=== PATIENT | male | born 1955 | race Caucasian/White ===

== ENCOUNTER 2022-12-09 18:21 | Emergency (ER) | payer MEDICARE, SELFPAY ==
[2022-12-09] VITALS (33 sets, daily range): BP systolic 89–144; BP diastolic 49–84; PULSE 72–117; RESP 15–31; TEMP 37.1; O2SAT 95–100; BMI 25.1
--- NOTE | 2022-12-09 18:23 | CT_ITS ---
The [address] [address] Patient Name: CINDY DOHERTY MRN: [id number] date: 1955 Sex: M Assigned Patient Location: ED.MAIN Current Patient Location: ED.MAIN Accession/Order Number: [id number] Exam Date: 12/09/2022 18:40 Report Date: 12/09/2022 19:53 At the request of: CHETNA ABREU Procedure: CT head/brain wo con EXAMINATION: CT head/brain wo con, 12/09/2022 6:40 PM EDT HISTORY: Seizure COMPARISON: None. TECHNIQUE: CT scan of the head was performed without IV contrast. CT dose reduction technique was used, including Automated Exposure Control. FINDINGS: BRAIN PARENCHYMA/CSF SPACES: Ventricles are normal in size for age. There is no hemorrhage, mass effect or midline shift. Chronic appearing lacunar infarcts involving the caudate heads bilaterally, left basal ganglia and left frontal periventricular white matter. Chronic appearing infarct noted in the right parietal white matter. PARANASAL SINUSES: Clear. SKULL BASE AND CALVARIUM: Normal. EXTRACRANIAL SOFT TISSUES: Normal. CT/CT head/brain wo con IMPRESSION: 1. No acute intracranial abnormality. 2. Bilateral chronic appearing lacunar infarcts. MRI would be more sensitive for acute infarct if clinically indicated. Electronically authenticated by: AL THORPE Date: 12/09/2022 19:53
[2022-12-09 18:26] LABS: Glucometer 172 mg/dL (74-106)
--- NOTE | 2022-12-09 18:29 | ED.GENADUL1 ---
HPI - General Adult General Chief complaint: Altered Mental Status Stated complaint: SQUAD UNKNOWN Time Seen by Provider: 12/09/22 18:22 Source: family Mode of arrival: ambulance Limitations: altered mental status History of Present Illness HPI narrative: patient here by EMS for altered mentation. Family is not here yet to give me other information. Paramedics report that he was fine this afternoon but all of a sudden having jerking-type movements and became less responsive. They also indicated that he had a serious stroke recently. The paramedics arrived in the was somewhat unresponsive but was moving about all the extremities. He was not verbal. He is not visualized to have any seizure. His blood glucose was normal. We do not have any previous records form in this Hospital medical record system. He was seen immediately upon arrival. Related Data Allergies Allergy/AdvReac Type Severity Reaction Status Date / Time No Known Drug Allergies Allergy Verified 12/09/22 18:27 Exam Narrative Exam Narrative: patient was placed in a resuscitation room and placed on cardiac monitoring and oxygen monitoring. He is moving about restlessly and not following all or any commands initially that change throughout the course exam and he was able to tell us his name and open and close his mouth. HEENT showed pupils to be 4 mm reactive bilaterally. Oral cavity has some minor abrasions but no active bleeding or obvious lacerations. His airway is intact. He's not had an emesis here is not drooling and is not stridorous airway is widely patent pulse oximetry is one hundred percent on room air. Heart rate and rhythm are normal and don't hear any heart murmurs. Abdomen is benign to palpation he doesn't seem to have any discomfort to palpation. As a studies moving all extremities. Genitalia does not indicate that he's had incontinence of urine. Constitutional Vital Signs, click to edit/add: Last Vital Signs Temp 98.7 F 12/09/22 18: Pulse 117 H 12/09/22 18:23 Resp 18 12/09/22 18:23 BP 134/76 12/09/22 18: Pulse Ox 100 12/09/22 18:23 O2 Del Method Room Air 12/09/22 18:23 Course Vital Signs Vital signs: Vital Signs Temperature 98.7 F 12/09/22 18:23 Pulse Rate 117 H 12/09/22 18:23 Respiratory Rate 18 12/09/22 18:23 Blood Pressure 134/76 12/09/22 18:23 Pulse Oximetry 100 12/09/22 18:23 Oxygen Delivery Method Room Air 12/09/22 18:23 Temperature 98.7 F 12/09/22 18:23 Pulse Rate 117 H 12/09/22 18:23 Respiratory Rate 18 12/09/22 18:23 Blood Pressure 134/76 12/09/22 18:23 Pulse Oximetry 100 12/09/22 18:23 Oxygen Delivery Method Room Air 12/09/22 18:23 Medical Decision Making MDM Narrative Medical decision making narrative: at this time the patient seems to be postictal. We'll get more information from the . Chemistries CT scan were all ordered to facilitate his disposition. Case will be turned over the next Emergency Room physician Lab Data Labs: Lab Results 12/09/22 Range/Units 18:24 POC Glucose 172 H (74-106) mg/dL Discharge Plan Discharge Chief Complaint: Altered Mental Status Clinical Impression: Altered mental status Patient Disposition: Still a Patient Referrals: Stefan Hardy MD [Primary Care Provider] - 1 week
[2022-12-09 18:40] LABS: Hematocrit 26.1 % (42.0-54.0); Mean Corpuscular HGB Conc 34.5 g/dL (29.9-35.2); Mean Corpuscular Hemoglobin 31.1 pg (25.9-34.0); Mean Corpuscular Volume 90.3 fL (80.0-94.0); Platelet Count 285 10^3/uL (150-450); Red Blood Count 2.89 10^6/uL (4.70-6.10); Red Cell Distribution Width 14.2 % (11.0-15.0)
[2022-12-09 18:57] LABS: Alanine Aminotransferase 63 U/L (16-63); Albumin Globulin Ratio 1.1; Albumin Level 3.7 g/dL (3.4-5.0); Alkaline Phosphatase 73 U/L (46-116); Anion Gap 18.5; Aspartate Amino Transferase 26 U/L (15-37); BUN Creatinine Ratio 13.8; Bilirubin Total 0.4 mg/dL (0.2-1.0); Calcium 8.9 mg/dL (8.5-10.1); Carbon Dioxide 22.6 mmol/L (21.0-32.0); Chloride 102 mmol/L (98-107); Estimated GFR (African America >60 (>=60); Estimated GFR (Non-African Ame 51 (>=60); Globulin 3.4 g/dL; Glucose 161 mg/dL (74-106); Potassium 3.1 mmol/L (3.5-5.1); Sodium 140 mmol/L (136-145); Total Protein 7.1 g/dL (6.4-8.2)
[2022-12-09 19:04] LABS: Ethanol <3 mg/dL; Thyroid Stimulating Hormone 6.068 uIU/mL (0.358-3.740); Troponin I High Sensitivity 7.6 pg/mL (4.0-76.1)
[2022-12-09 19:05] LABS: Eosinophils Absolute Manual 0.65 10^3/uL (0.00-0.70); Lymphocytes Absolute Manual 4.81 10^3/uL (1.20-3.80); Monocytes Absolute Manual 0.52 10^3/uL (0.30-0.80); Myelocytes Absolute Manual 0.13; Segmented Neut Absolute Manual 6.89 10^3/uL (1.4-6.5)
--- NOTE | 2022-12-09 19:14 | PC.NURSE ---
previous charting that pt at radiology was done in error. charted on wrong pt
[2022-12-09 21:02] LABS: Bilirubin Urine NEGATIVE (NEGATIVE); Blood Urine NEGATIVE (NEGATIVE); Clarity Urine CLEAR (CLEAR); Color Urine YELLOW (YELLOW); Glucose Urine UA NEGATIVE (NEGATIVE); Ketones Urine NEGATIVE (NEGATIVE); Leukocyte Esterase Urine NEGATIVE (NEGATIVE); Nitrite Urine NEGATIVE (NEGATIVE); Protein Urine NEGATIVE (NEG/TRACE); Specific Gravity Urine 1.025 (1.005-1.025); Urobilinogen Urine 0.2 EU/dL (0.2-1.0); pH Urine 5.5 (5.0-9.0)
--- NOTE | 2022-12-09 21:05 | ED.AMS1 ---
HPI - Altered Mental Status General Chief Complaint: Altered Mental Status Stated Complaint: SQUAD UNKNOWN Time Seen by Provider: 12/09/22 18:22 Source: family Mode of arrival: ambulance Limitations: altered mental status History of Present Illness HPI narrative: The patient was initially seen by Dr. Taylor and signed out to me after discussing the case with him thoroughly. The patient presented with new onset seizure as witnessed by his and it lasted about fifteen minutes. Please see his full history and physical exam. Related Data Allergies Allergy/AdvReac Type Severity Reaction Status Date / Time No Known Drug Allergies Allergy Verified 12/09/22 18:27 Exam Constitutional Vital Signs, click to edit/add: Last Vital Signs Temp 98.7 F 12/09/22 18:23 Pulse 117 H 12/09/22 18:23 Resp 18 12/09/22 18:23 BP 134/76 12/09/22 18:23 Pulse Ox 100 12/09/22 18:35 O2 Del Method Room Air 12/09/22 18:35 Course Vital Signs Vital signs: Vital Signs Temperature 98.7 F 12/09/22 18:23 Pulse Rate 117 H 12/09/22 18:23 Respiratory Rate 18 12/09/22 18:23 Blood Pressure 134/76 12/09/22 18:23 Pulse Oximetry 100 12/09/22 18:23 Oxygen Delivery Method Room Air 12/09/22 18:23 Temperature 98.7 F 12/09/22 18:23 Pulse Rate 117 H 12/09/22 18:23 Respiratory Rate 18 12/09/22 18:23 Blood Pressure 134/76 12/09/22 18:23 Pulse Oximetry 100 12/09/22 18:35 Oxygen Delivery Method Room Air 12/09/22 18:35 MDM - Altered Mental Status MDM Narrative Medical decision making narrative: CT brain does not show any acute finding. I've discussed the case with accepting physician at [facility] and the patient is stable and agreeable for transfer. Differential Diagnosis Differential diagnosis: Likely altered mental status, hypoglycemia, hyponatremia, subarachnoid hemorrhage and OTHER (post stroke seizure) Medical Records Attestation: I reviewed the patient's medical records. Lab Data Attestation: I reviewed the patient's lab results. Labs: Lab Results 12/09/22 12/09/22 Range/Units 18:24 18:30 WBC 13.0 H (4.0-11.0) 10^3/uL RBC 2.89 L (4.70-6.10) 10^6/uL Hgb 9.0 L (14.0-18.0) g/dL Hct 26.1 L (42.0-54.0) % MCV 90.3 (80.0-94.0) fL MCH 31.1 (25.9-34.0) pg MCHC 34.5 (29.9-35.2) g/dL RDW 14.2 (11.0-15.0) % Plt Count 285 (150-450) 10^3/uL MPV 10.0 (9.5-13.5) fL Seg Neuts % (Manual) 53.0 Lymphocytes % (Manual) 37.0 (20.5-60.0) % Monocytes % (Manual) 4.0 (1.7-12.0) % Eosinophils % (Manual) 5.0 (0.9-7.0) % Basophils % (Manual) 0.0 L (0.2-2.0) % Myelocytes % 1.0 Neutrophils # (Manual) 6.89 H (1.4-6.5) 10^3/uL Lymphocytes # (Manual) 4.81 H (1.20-3.80) 10^3/uL Monocytes # (Manual) 0.52 (0.30-0.80) 10^3/uL Eosinophils # (Manual) 0.65 (0.00-0.70) 10^3/uL Basophils # (Manual) 0.00 (0.00-0.10) 10^3/uL Myelocytes # 0.13 Sodium 140 (136-145) mmol/L Potassium 3.1 L (3.5-5.1) mmol/L Chloride 102 (98-107) mmol/L Carbon Dioxide 22.6 (21.0-32.0) mmol/L Anion Gap 18.5 BUN 19.0 H (7.0-18.0) mg/dL Creatinine 1.38 H (0.70-1.30) mg/dL Est GFR ( Amer) >60 (>=60) Est GFR (Non-Af Amer) 51 L (>=60) BUN/Creatinine Ratio 13.8 Glucose 161 H (74-106) mg/dL Calcium 8.9 (8.5-10.1) mg/dL Total Bilirubin 0.4 (0.2-1.0) mg/dL AST 26 (15-37) U/L ALT 63 (16-63) U/L Alkaline Phosphatase 73 (46-116) U/L Troponin I High Sens 7.6 (4.0-76.1) pg/mL Total Protein 7.1 (6.4-8.2) g/dL Albumin 3.7 (3.4-5.0) g/dL Globulin 3.4 g/dL Albumin/Globulin Ratio 1.1 TSH 6.068 H (0.358-3.740) uIU/mL Ethanol Quant <3 mg/dL POC Glucose 172 H (74-106) mg/dL Imaging Data CT scan - head: Radiologist's impression: Procedure: CT head/brain wo con EXAMINATION: CT head/brain wo con, 12/09/2022 6:40 PM EDT HISTORY: Seizure COMPARISON: None. TECHNIQUE: CT scan of the head was performed without IV contrast. CT dose reduction technique was used, including Automated Exposure Control. FINDINGS: BRAIN PARENCHYMA/CSF SPACES: Ventricles are normal in size for age. There is no hemorrhage, mass effect or midline shift. Chronic appearing lacunar infarcts involving the caudate heads bilaterally, left basal ganglia and left frontal periventricular white matter. Chronic appearing infarct noted in the right parietal white matter. PARANASAL SINUSES: Clear. SKULL BASE AND CALVARIUM: Normal. EXTRACRANIAL SOFT TISSUES: Normal. IMPRESSION: 1. No acute intracranial abnormality. 2. Bilateral chronic appearing lacunar infarcts. MRI would be more sensitive for acute infarct if clinically indicated. Electronically authenticated by: AL THORPE Date: 12/09/2022 19:53 Discharge Plan Discharge Chief Complaint: Altered Mental Status Clinical Impression: Altered mental status, New onset seizure without head trauma Patient Disposition: [facility] Time of Disposition Decision: 21:05 Discharge Location: [facility] Condition: Good Mode of Transportation: EMS
[2022-12-09 21:07] LABS: Urine Microscopic Indicated NO
[2022-12-09 21:10] LABS: Amphetamine Screen Urine NEGATIVE (NEGATIVE); Barbiturates Screen Urine NEGATIVE (NEGATIVE); Benzodiazepines Screen Urine NEGATIVE (NEGATIVE); Buprenorphine Screen Urine NEGATIVE (NEGATIVE); Cannabinoid Screen Urine NEGATIVE (NEGATIVE); Cocaine Screen Urine NEGATIVE (NEGATIVE); Methadone Screen Urine NEGATIVE (NEGATIVE); Methamphetamines Screen Urine NEGATIVE (NEGATIVE); Opiate Screen Urine NEGATIVE (NEGATIVE); Oxycodone Screen Urine NEGATIVE (NEGATIVE); Phencyclidine Screen Urine NEGATIVE (NEGATIVE); Tricyclic Antidepressant Urine NEGATIVE (NEGATIVE)
--- NOTE | 2022-12-09 21:21 | ECG_ITS ---
The 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
== END 2022-12-09 22:56 | disposition short-term general hospital (02) ==
PROVIDERS: Emergency Medicine Emergency Medical Services; Emergency Provider Emergency Medicine; PCP Family Medicine
DX: R56.9 Unspecified convulsions (principal); R41.82 Altered mental status, unspecified; I69.328 Other speech and language deficits following cerebral infarction; I69.351 Hemiplegia and hemiparesis following cerebral infarction affecting right dominant side
CPT/HCPCS: 36415; 70450; 80053; 80307; 80320; 81003; 84443; 84484; 85027; 93005; 99285

== ENCOUNTER 2022-12-21 13:53 | Outpatient (RCR) | payer MEDICARE, SELFPAY | END 2023-02-14 12:09 | disposition home or self-care (01) | LOC: ST 13:53 | PROVIDERS: PCP Family Medicine; Visit Provider Physical Medicine & Rehabilitation | DX: I63.512 Cerebral infarction due to unspecified occlusion or stenosis of left middle cerebral artery (principal); I69.322 Dysarthria following cerebral infarction; I69.318 Other symptoms and signs involving cognitive functions following cerebral infarction | CPT/HCPCS: 92507; 92523 ==

== ENCOUNTER 2022-12-25 15:04 | Outpatient (RCR) | payer MEDICARE, SELFPAY | END 2023-02-25 08:19 | disposition home or self-care (01) | LOC: PT 15:04 | PROVIDERS: PCP Family Medicine; Visit Provider Physical Medicine & Rehabilitation | DX: I63.512 Cerebral infarction due to unspecified occlusion or stenosis of left middle cerebral artery (principal) | CPT/HCPCS: 97110; 97112; 97162 ==

== ENCOUNTER 2022-12-28 10:54 | Outpatient (RCR) | payer MEDICARE, SELFPAY | END 2023-02-25 08:19 | disposition home or self-care (01) | LOC: OT 10:54 | PROVIDERS: PCP Family Medicine; Visit Provider Physical Medicine & Rehabilitation | DX: I63.512 Cerebral infarction due to unspecified occlusion or stenosis of left middle cerebral artery (principal) | CPT/HCPCS: 97165; 97530 ==

== ENCOUNTER 2023-02-26 10:22 | Outpatient (RCR) | payer MEDICARE, SELFPAY | END 2023-03-29 17:00 | disposition home or self-care (01) | LOC: OT 10:22 | PROVIDERS: PCP Family Medicine; Visit Provider Physical Medicine & Rehabilitation | DX: I63.512 Cerebral infarction due to unspecified occlusion or stenosis of left middle cerebral artery (principal) | CPT/HCPCS: 97530 ==

== ENCOUNTER 2023-02-26 10:22 | Outpatient (RCR) | payer MEDICARE, SELFPAY | END 2023-03-21 17:00 | disposition home or self-care (01) | LOC: PT 10:22 | PROVIDERS: PCP Family Medicine; Visit Provider Physical Medicine & Rehabilitation | DX: I63.512 Cerebral infarction due to unspecified occlusion or stenosis of left middle cerebral artery (principal); R27.0 Ataxia, unspecified | CPT/HCPCS: 97110; 97112 ==

== ENCOUNTER 2023-04-11 11:17 | Outpatient (OUT) | payer MEDICARE, SELFPAY ==
--- OUTSIDE RECORDS SUMMARY | 2023-04-11 11:23 | XMS_ITS | CCD ---
Author Name Unknown Address [address] [facility] [address] [place] [address] Organization [facility] Care Team Providers Care Scanner Operator Name Role Phone PHYSICIAN, DEFAULT Admitting Unavailable PHYSICIAN, DEFAULT Attending Unavailable MARILYN PATRICK Primary Care Unavailable MARILYN PATRICK Admitting Unavailable MARILYN PATRICK Attending Unavailable MARILYN PATRICK Consulting Unavailable ANGUS MCFARLANE Consulting Unavailable DELIO BOYER Consulting Unavailable DARNELL MARILYN Admitting Unavailable DARNELL MARILYN Attending Unavailable DARNELL MARILYN Primary Care Unavailable DARNELL MARILYN Consulting Unavailable Godfrey Patricklas Primary Care Physician [phone] SHANNON JORDAN Attending Unavailable SHANNON JORDAN Admitting Unavailable MD Nolberto Hernandez Emergency Provider MD Marilyn Patrick Primary Care Provider TiogaDO John Admit Provider TiogaDO John Attending Provider MD Davey Harding Attending Provider DO Jose David Aponte Other Provider MD Jose Martin Sen Other Provider MD Jose Martin Sen Admit Provider MD Jose Martin Sen Attending Provider DARON Carlisle Other Provider Unavailable DARON Martines Other Provider Unavailable DARON Brandon Other Provider Unavailable DARON Mckeon Other Provider Unavailable DARNO Benitez Other Provider Unavailable DARON Gupta Other Provider Unavailable MD Nu Nur Other Provider JASMIN Miller Other Provider DO Stephanie Thomas Other Provider MD Pasquale Gillespie Other Provider DO Rohan Levy Other Provider MD Davey Harding Other Provider MD Mindi Juan Other Provider Rosita, ANP-BC Anuradha Other Provider MD Ryan Palacio Other Provider MD Herbert May Other Provider MD Kaushal Mata Other Provider MD Fidelia Hernández Other Provider DO Kevin Adrian Other Provider MD Jaja Firramya Other Provider MD Deangelo Jeong Other Provider Cyn, [employer] IN[employer]CTOR-C Rhonda J Other Provider MD Franklyn Mariano Other Provider MD Foster Patterson Other Provider MD Axel Wolfe Other Provider MD Obey Dawn Other Provider DO Maty Giles Other Provider DO Hilario Bojorquez Other Provider DO Garrett Kim Other Provider JASMIN Walker Other Provider DO Alex Weems Other Provider MD Quynh Galvan Other Provider JASMIN Hernandez Other Provider JASMIN Osorio Sara C Other Provider MD Tamara Loco Other Provider MD Guzman Garcia Other Provider JASMIN Lepe Other Provider [phone] DARON Quinteros Other Provider Unavailable MD Ton Wilkinson Admit Provider Marie Nicholas Other Provider Unavailable DO Shannan Bergeron Other Provider MD Angus Block Other Provider DO Leodan Younger Other Provider IBIS Decker-KAREL Marshall Other Provider JASMIN Mayers Other Provider KRISTIE Joel Other Provider JASMIN Yoo-PUMP SERVICER 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-C Ivon Ceja Other Provider [phone] MD Santosh Rivera Other Provider JASMIN Parmar Other Provider Davey Harding Attending Unavailable Ton Wilkinson Admitting Unavailable Marilyn Patrick Primary Care Unavailable Marie Nicholas Consulting Unavailable Shannan Bergeron Consulting Unavailable Angus Block Consulting Unavailable Leodan Younger Consulting Unavailab Joanna Rehman Consulting Unavailable Jose David Aponte Consulting Unavailable Johana Mayers Consulting Unavailable Misti Joel Consulting Unavailable Ivon Yoo Consulting Unavailable Santosh Rivera Consulting Unavaila Davey Valencia Attending Unavailable Jose David Aponte Consulting Unavailable John Garcia Admitting Unavailable Marilyn Patrick Primary Care Unavailable Jose Martin Sen Consulting Unavailable Jose Martin Sen Attending Unavailable Jose Martin Sen Admitting Unavailable Jodi Carlisle Consulting Unavailable Marilyn Patrick Primary Care Unavailable Aggie Martines Consulting Unavailable Cayla Brandon Consulting Unavailable Yoli Mckeon Consulting Unavailable Kindra Benitez Consulting Unavailable Charlotte Gupta Consulting Unavailable Nu Nur Consulting Unavailable Yennifer Miller Consulting Unavailable Nicolas Thomasobir Consulting Unavailable Jose Miguel, Pasquale Consulting Unavailable Kerrim, Rohan Consulting Unavailabl e Mehdi, Davey Consulting Unavailable Semaskiene, Mindi Consulting Unavailable Anuradha Parmar Consulting Unavailabl e Wassouf, Marwan Consulting Unavailable Zraik, Herbert Consulting Unavailable Mata, Kaushal Consulting Unavailable Edgar, Safwan Consulting Unavailable Kevin Adrian Consulting Unavailable Jaja, Firas Consulting Unavailable Deangelo Jeong Consulting Unavailable Rhonda Addison Consulting Unavailable Doamekpor, Franklyn E Consulting Unavailab le Leonardo, Foster Consulting Unavailable Yaneth, Axel Consulting Unavailable Nereyda, Obey Consulting Unavailable Maty Giles Consulting Unavailable Hilario Bojorquez Consulting Unavailable Garrett Kim Consulting Unavailable Aziza Walker Consulting Unavailable Alex Weems Consulting Unavailable OswaldoomaQuynh biggs Consulting Unavailable Linh Hernandez Consulting Unavailable Sara Osorio Consulting Unavailable Alahmad, Alaa Consulting Unavailable Guzman Garcia Consulting Unavailable Estephania Lepe Consulting Unavailable Destiny Quinteros Consulting Unavailable Jose Martin Sen Attending Unavailable Jose Martin Sen Admitting Unavailable Marilyn Patrick Primary Care Unavailable Jodi Carlisle Consulting Unavailable Aggie Martines Consulting Unavailable Cayla Brandon Consulting Unavailable Yoli Mckeon Consulting Unavailable Kindra Benitez Consulting Unavailable Charlotte Gupta Consulting Unavailable Nu Nur Consulting Unavailable Yennifer Miller Consulting Unavailable Martha, Ronobir Consulting Unavailable Jose Miguel, Pasquale Consulting Unavailable Kerrim, Rohan Consulting Unavailabl e Mehdi, Davey Consulting Unavailable Kentonskiene, Mindi Consulting Unavailable Anuradha Parmar Consulting Unavailabl e Wassamm, Lizethwan Consulting Unavailable Zraik, Herbert Consulting Unavailable Mata, Kaushal Consulting Unavailable Edgar, Safwan Consulting Unavailable Kevin Adrian Consulting Unavailable Jaja, Firas Consulting Unavailable Deangelo Jeong Consulting Unavailable Rhonda Addison Consulting Unavailable Doamekpor, Franklyn E Consulting Unavailab le Leonardo, Foster Consulting Unavailable Wolfe, Axel Consulting Unavailable Nereyda, Obey Consulting Unavailable Maty Giles Unavailable Hilario Bojorquez Consulting Unavailable Garrett Kim Consulting Unavailable Aziza Walker Unavailable Alex Weems Consulting Unavailable Quynh Galvan Consulting Unavailable Linh Hernandez Consulting Unavailable Sara Osorio Consulting Unavailable Tamara Loco Unavailable Guzman Garcia Consulting Unavailable Estephania Lepe Consulting Unavailable Destiny Quinteros Unavailable Jose Martin Sen Attending Unavailable Marilyn Patrick Primary Care Unavailable Jose Martin Sen Admitting Unavailable Medications Current Medications Medication Drug Class(es) Dates Sig (Normalized) Sig (Original) acetaminophen 500 mg oral tablet (2 sources) Start: 12-19-2022 take 500 mg by mouth every four hours Acetaminophen Active 500 MG PO Q4H 100 December 19, 2022 12:00am adalimumab (4 sources) Tumor Necrosis Factor Kena Start: 11-14-2022 inject 40 mg by subcutaneous injection every other week Humira Active 40 mg subcut Q14D 0 November 14, 2022 12:00am aspirin 81 mg delayed release oral tablet (7 sources) Platelet Aggregation Inhibitor, Nonsteroidal Anti-inflammatory Drug Start: 11-02-2022 End: 12-19-2022 take 81 mg by mouth once daily Aspirin Active 81 MG PO Daily December 19, 2022 12:00am atorvastatin 80 mg oral tablet (7 sources) HMG-CoA Reductase Inhibitor Start: 11-02-2022 End: 12-19-2022 take 80 mg by mouth once daily in the evening Atorvastatin Active 80 MG PO Every evening December 19, 2022 12:00am clopidogrel 75 mg oral tablet (7 sources) P2Y12 Platelet Inhibitor Start: 11-02-2022 End: 12-19-2022 take 75 mg by mouth once daily Clopidogrel Active 75 MG PO Daily 30 December 19, 2022 12:00am levETIRAcetam 500 mg oral tablet (5 sources) Start: 12-11-2022 End: 12-19-2022 take 500 mg by mouth twice daily Levetiracetam Active 500 MG PO Twice daily 60 December 19, 2022 12:00am polysaccharide iron complex 150 mg oral capsule (5 sources) Start: 12-11-2022 End: 12-19-2022 Polysaccharide Iron Complex (Ferrex 150) 150 mg iron Capsule Active 150 MG PO Q48H 15 December 19, 2022 12:00am valsartan 80 mg oral tablet (2 sources) Angiotensin 2 Receptor Kena Start: 12-19-2022 take 80 mg by mouth once daily Valsartan Active 80 MG PO Daily December 19, 2022 12:00am vitamin b12 1 mg oral tablet (5 sources) Vitamin B12 Start: 12-19-2022 take 1000 ug by mouth once daily in the morning Cyanocobalamin (Vitamin B-12) Active 1000 MCG PO Every morning December 19, 2022 12:00am Start: 12-11-2022 End: 12-19-2022 take 1000 ug by mouth once daily Cyanocobalamin (Vitamin B-12) Discontinued 1000 MCG PO Daily December 11, 2022 12:00am December 19, 2022 2:46pm Completed/Discontinued Medications Medication Drug Class(es) Dates Sig (Normalized) Sig (Original) amLODIPine 10 mg / hydroCHLOROthiazide 25 mg / valsartan 320 mg oral tablet (9 sources) Thiazide Diuretic, Dihydropyridine Calcium Channel Kena, Angiotensin 2 Receptor Kena Start: 3 End: 3 take 1 tablet by mouth once daily Amlodipine-Valsa rtan-Hcthiazid Discontinued 1 TAB PO Daily November 14, 2022 9:21am December 19, 2022 2:46pm hydrALAZINE hydrochloride 25 mg oral tablet (4 sources) Arteriolar Vasodilator Start: 3 End: 3 take 25 mg by mouth twice daily Hydralazine Discontinued 25 MG PO Twice daily 60 November 14, 2022 12:00am December 12, 2022 6:32pm potassium chloride 10 meq extended release oral tablet (9 sources) Start: 3 End: 3 Potassium Chloride (Klor-Con 10) 10 mEq Tablet Extended Release Discontinued 20 MEQ PO Daily 60 November 14, 2022 12:00am December 19, 2022 2:46pm Start: 11-02-2022 End: 11-14-2022 take 10 mEq by mouth once daily Potassium Chloride Discontinued 10 MEQ PO Daily November 02, 2022 12:00am November 14, 2022 9:26am Problems Active Problems Problem Classification Problem Date Documented Date Episodic/Chronic Acute cerebrovascular disease (20 sources) Cerebral infarction, unspecified; Translations: [Cerebrovascular accident] Onset: 08-20-1910-30-2022 Chronic Acute cerebrovascular disease (1 source) NIHSS score 2; Translations: [NIHSS SCORE 2] Onset: 06-13-19 Administrative/social admission (5 sources) Other reduced mobility; Translations: [Impaired mobility and activities of daily living] Onset: 12-13-1912-13-2022 Episodic Deficiency and other anemia (2 sources) Iron deficiency anemia; Translations: [Iron deficiency anemia, unspecified] 12-13-2022 Episodic Deficiency and other anemia (3 sources) Iron deficiency anemia, unspecified; Translations: [Iron deficiency anemia, unspecified] Onset: 12-13-1912-20-2022 Episodic Diabetes mellitus without complication (1 source) Other abnormal glucose; Translations: [OTHER ABNORMAL GLUCOSE] Onset: 08-22-19 Episodic Disorders of lipid metabolism (20 sources) Hyperlipidemia, unspecified; Translations: [Hyperlipidemia] Onset: 08-22-1910-31-2022 Chronic Disorders of lipid metabolism (1 source) Pure hypercholesterolemia, unspecified; Translations: [PURE HYPERCHOLESTEROLEMIA UNSPEC] Onset: 06-13-19 Epilepsy; convulsions (9 sources) Seizure; Translations: [Unspecified convulsions] Onset: 12-13-1912-09-2022 Episodic Essential hypertension (6 sources) Essential (primary) hypertension; Translations: [Hypertensive disorder] Onset: 08-22-1912-13-2022 Chronic Hypertension with complications and secondary hypertension (17 sources) Hypertensive urgency ; Translations: [Hypertensive urgency] Onset: 10-31-1910-30-2022 Chronic Hypertension with complications and secondary hypertension (1 source) Hypertensive emergency; Translations: [HYPERTENSIVE EMERGENCY] Onset: 06-13-19 Nonspecific chest pain (1 source) Chest pain, unspecified; Translations: [CHEST PAIN UNSPECIFIED] Onset: 08-22-19 Episodic Other and ill-defined cerebrovascular disease (5 sources) Cerebral atherosclerosis; Translations: [Cerebral atherosclerosis] 10-31-2022 Chronic Other and ill-defined cerebrovascular disease (13 sources) Cerebral atherosclerosis; Translations: [Cerebral atherosclerosis] Onset: 12-11-1911-02-2022 Chronic Other gastrointestinal disorders (5 sources) Oropharyngeal dysphagia; Translations: [Dysphagia, oropharyngeal phase] 10-31-2022 Episodic Other gastrointestinal disorders (15 sources) Dysphagia, oropharyngeal phase; Translations: [Dysphagia, oropharyngeal phase] Onset: 12-11-1911-02-2022 Episodic Other nervous system disorders (3 sources) Dysarthria; Translations: [Dysarthria and anarthria] 12-12-2022 Episodic Other nervous system disorders (6 sources) Dysarthria and anarthria; Translations: [Dysarthria] Onset: 12-11-1912-12-2022 Episodic Other screening for suspected conditions (not mental disorders or infectious disease) (2 sources) Encounter for screening for malignant neoplasm of prostate; Translations: [Encounter for screening for malignant neoplasm of rectum] Onset: 08-22-19 Episodic Paralysis (18 sources) Right hemiplegia; Translations: [Hemiplegia, unspecified affecting right dominant side] Onset: 12-11-1910-31-2022 Chronic Residual codes; unclassified (14 sources) Noncompliance with medication regimen; Translations: [Noncompliance with medication regimen] 10-31-2022 Episodic Residual codes; unclassified (4 sources) Tobacco user; Translations: [Tobacco use] 11-03-2022 Episodic Residual codes; unclassified (5 sources) Tobacco use; Translations: [Tobacco use disorder] Onset: 11-03-1911-15-2022 Episodic Residual codes; unclassified (2 sources) Cognitive perceptual pattern; Translations: [Unspecified symptoms and signs involving general sensations and perceptions] 12-13-2022 Episodic Residual codes; unclassified (3 sources) Unspecified symptoms and signs involving general sensations and perceptions; Translations: [Other symptoms involving nervous and musculoskeletal systems] Onset: 12-13-1912-20-2022 Episodic Residual codes; unclassified (1 source) Other specified health status; Translations: [Other specified health status] Onset: 12-13-19 Episodic Unclassified (1 source) Cerebral infarction due to unspecified occlusion or stenosis of left middle cerebral artery; Translations: [Cerebral infarction due to unspecified occlusion or stenosis of left middle cerebral artery] Onset: 12-13-19 Unclassified (1 source) Unspecified convulsions; Translations: [Unspecified convulsions] Onset: 12-11-19 Unclassified (1 source) Dysarthria following cerebral infarction; Translations: [Dysarthria following cerebral infarction] Onset: 12-08-19 Unclassified (1 source) Other cerebral infarction due to occlusion or stenosis of small artery; Translations: [Other cerebral infarction due to occlusion or stenosis of small artery] Onset: 11-03-19 Unclassified (1 source) Patient's other noncompliance with medication regimen for other reason; Translations: [Patient's other noncompliance with medication regimen for other reason] Onset: 10-31-19 Past or Other Problems Problem Classification Problem Date Documented Date Episodic/Chronic Residual codes; unclassified (1 source) Patient's other noncompliance with medication regimen; Translations: [PT OTH NONCOMPLIANCE W/ MED REGIMEN] Onset: 06-12-2018 Episodic Screening and history of mental health and substance abuse codes (1 source) Personal history of nicotine dependence; Translations: [PERSONAL HISTORY OF NICOTINE DEPEND] Onset: 06-12-2018 Episodic Results Test Name Value Interpretation Reference Range Facility Basic Metabolic Panel [id number] Anion gap [Moles/Vol] 9.8 mmol/L Normal 6.0-15.0 [facility] Comment on above: Performed By: #### F ER, [id number], FE and TIBC, MG #### [facility] [address] Calcium [Mass/Vol] 8.7 mg/dL Normal 8.6-10.3 [facility] Comment on above: Performed By: #### F ER, [id number], FE and TIBC, MG #### [facility] [address] [place] [id number] [place] Chloride [Moles/Vol] 111 mmol/L High 98-107 [facility] Comment on above: Performed By: #### F ER, [id number], FE and TIBC, MG #### [facility] [address] [place] [id number] [place] CO2 [Moles/Vol] 25.7 mmol/L Normal 21.0-31.0 [facility] Comment on above: Performed By: #### F ER, [id number], FE and TIBC, MG #### [facility] [address] Creatinine [Mass/Vol] 0.87 mg/dL Normal 0.70-1.30 [facility] Comment on above: Performed By: #### F ER, [id number], FE and TIBC, MG #### [facility] [address] Creatinine Clr Calc Pharmacy 79.00 [facility] Comment on above: Result Comment: PERF ORMED BY: [place] [address] PATHOLOGIST ACCESS REP TERESA PATTERSON M.D. Performed By: #### F ER, [id number], FE and TIBC, MG #### [address] GFR/1.73 sq M.predicted MDRD (S/P/Bld) [Vol rate/Area] mL/min/{1.73_m2} [facility] Comment on above: Performed By: #### F ER, [id number], FE and TIBC, MG #### [facility] [address] Glucose [Mass/Vol] 95 mg/dL Normal 70-100 [facility] Comment on above: Result Comment: [place] Glucose Reference Range is dependent on time and content of last meal. Glucose of more than 200 mg/dL in a nonstressed, ambulatory subject supports the diagnosis of Diabetes Mellitus. ADA recommended reference range Performed By: #### F ER, [id number], FE and TIBC, MG #### [facility] [address] Potassium [Moles/Vol] 3.5 mmol/L Normal 3.5-5.1 [facility] Comment on above: Performed By: #### F ER, [id number], FE and TIBC, MG #### [facility] [address] [place] [address] [place] Sodium [Moles/Vol] 143 mmol/L Normal 136-145 [facility] Comment on above: Performed By: #### F ER, [id number], FE and TIBC, MG #### [facility] [address] Urea nitrogen [Mass/Vol] 16 mg/dL Normal 7-25 [facility] Comment on above: Performed By: #### F ER, [id number], FE and TIBC, MG #### [facility] [address] Basophils Auto (Bld) [#/Vol] Ordered By: Jose Martin Sen on 12-19-2022 Basophils (Bld) [#/Vol] 0.1 10*3/uL 0.0-0.2 [facility] Basophils/100 WBC Auto (Bld) Ordered By: Jose Martin Sen on 12-19-2022 Basophils/100 WBC (Bld) 1.3 % . [facility] Calcium [Mass/volume] in Ser um or PlasmaOrdered By: Jose Martin Sen on 12-19-2022 Calcium [Mass/Vol] 8.7 mg/dL 8.6-10.3 [facility] Carbon dioxide, total [Moles /volume] in Serum or PlasmaOrdered By: Jose Martin Sen on 12-19-2022 CO2 [Moles/Vol] 25.7 mmol/L 21.0-31.0 [facility] Chloride [Moles/volume] in S shani or PlasmaOrdered By: Jose Martin Sen on 12-19-2022 Chloride [Moles/Vol] 111 mmol/L 98-107 [facility] Complete Blood Count Auto Di ffon 12-19-2022 Basophils (Bld) [#/Vol] 0.1 10*3/uL Normal 0.0-0.2 [facility] Comment on above: Result Comment: PERF ORMED BY: [place] [address] PATHOLOGIST ACCESS REP TERESA PATTERSON M.D. Performed By: #### B MP, CBC #### [facility] [address] [place] [address] Basophils/100 WBC (Bld) 1.3 % Normal . [facility] Comment on above: Performed By: #### B MP, CBC #### [address] Eosinophils (Bld) [#/Vol] 0.1 10*3/uL Normal 0.0-0.45 [facility] Comment on above: Performed By: #### B MP, CBC #### [address] Eosinophils/100 WBC (Bld) 2.0 % Normal . [facility] Comment on above: Performed By: #### B MP, CBC #### [address] Erythrocyte distribution width (RBC) [Ratio] 14.1 % Normal 12.0-14.8 [facility] Comment on above: Performed By: #### B MP, CBC #### [address] Hematocrit (Bld) [Volume fraction] 22.7 % Low 38.8-50.0 [facility] Comment on above: Performed By: #### B MP, CBC #### [address] Hemoglobin (Bld) [Mass/Vol] 8.1 g/dL Low 13.0-17.0 [facility] Comment on above: Performed By: #### B MP, CBC #### [address] Lymphocytes (Bld) [#/Vol] 2.1 10*3/uL Normal 1.00-4.8 [facility] Comment on above: Performed By: #### B MP, CBC #### [address] Lymphocytes/100 WBC (Bld) 33.2 % Normal . [facility] Comment on above: Performed By: #### B MP, CBC #### [address] MCH (RBC) [Entitic mass] 31.1 pg Normal 27.5-35.2 [facility] Comment on above: Performed By: #### B MP, CBC #### [facility] [address] MCV (RBC) [Entitic vol] 86.6 fL Normal 83.5-101 [facility] Comment on above: Performed By: #### B MP, CBC #### [facility] [address] Mean Corpuscular HGB Conc 35.9 g/dL High 32.5-35.6 [facility] Comment on above: Performed By: #### B MP, CBC #### [address] Monocytes (Bld) [#/Vol] 0.6 10*3/uL Normal 0.0-0.8 [facility] Comment on above: Performed By: #### B MP, CBC #### [address] Monocytes/100 WBC (Bld) 9.2 % Normal . [facility] Comment on above: Performed By: #### B MP, CBC #### [address] Neutrophils (Bld) [#/Vol] 3.4 10*3/uL Normal 1.8-7.7 [facility] Comment on above: Performed By: #### B MP, CBC #### [place] [address] [place] Neutrophils/100 WBC (Bld) 54.3 % Normal . [facility] Comment on above: Performed By: #### B MP, CBC #### [place] [address] [place] NRBC% 0.0 /100{WBC} Normal 0-0.5 [facility] Comment on above: Performed By: #### B MP, CBC #### [address] Platelet mean volume (Bld) [Entitic vol] 7.9 fL Normal 6.6-10.1 [facility] Comment on above: Performed By: #### B MP, CBC #### [facility] [address] Platelets (Bld) [#/Vol] 248 10*3/uL Normal 150-450 [facility] Comment on above: Performed By: #### B MP, CBC #### [facility] [address] RBC (Bld) [#/Vol] 2.62 10*6/uL Low 3.90-5.60 [facility] Comment on above: Performed By: #### B MP, CBC #### [facility] [address] WBC (Bld) [#/Vol] 6.3 10*3/uL Normal 4.1-10.5 [facility] Comment on above: Performed By: #### B MP, CBC #### [facility] [address] Creatinine [Mass/volume] in Serum or PlasmaOrdered By: Jose Martin Sen on 12-19-2022 Creatinine [Mass/Vol] 0.87 mg/dL 0.70-1.30 [facility] Eosinophils Auto (Bld) [#/Vo l]Ordered By: Jose Martin Sen on 12-19-2022 Eosinophils (Bld) [#/Vol] 0.1 10*3/uL 0.0-0.45 [facility] Eosinophils/100 WBC Auto (Bl d)Ordered By: Jose Martin Sen on 12-19-2022 Eosinophils/100 WBC (Bld) 2.0 % . [facility] Erythrocyte distribution wid th Auto (RBC) [Ratio]Ordered By: Jose Martin Sen on 12-19-2022 Erythrocyte distribution width (RBC) [Ratio] 14.1 % 12.0-14.8 [facility] Glucose [Mass/volume] in Ser um or PlasmaOrdered By: Jose Martin Sen on 12-19-2022 Glucose [Mass/Vol] 95 mg/dL 70-100 [facility] Comment on above: ADA recommended refe rence rangeRandom Glucose Reference Range is dependent on time and content of last meal. Glucose of more than 200 mg/dL in a nonstressed, ambulatory subject supports the diagnosis of Diabetes Mellitus. Hematocrit Auto (Bld) [Volum e fraction]Ordered By: Jose Martin Sen on 12-19-2022 Hematocrit (Bld) [Volume fraction] 22.7 % 38.8-50.0 [facility] Hemoglobin [Mass/volume] in BloodOrdered By: Jose Martin Sen on 12-19-2022 Hemoglobin (Bld) [Mass/Vol] 8.1 g/dL 13.0-17.0 [facility] Leukocytes [#/volume] correc khadra for nucleated erythrocytes in Blood by Automated counOrdered By: Jose Martin Sen on 12-19-2022 WBC corrected for nucl RBC Auto (Bld) [#/Vol] 6.3 10*3/uL 4.1-10.5 [facility] Lymphocytes Auto (Bld) [#/Vo l]Ordered By: Jose Martin Sen on 12-19-2022 Lymphocytes (Bld) [#/Vol] 2.1 10*3/uL 1.00-4.8 [facility] Lymphocytes/100 WBC Auto (Bl d)Ordered By: Jose Martin Sen on 12-19-2022 Lymphocytes/100 WBC (Bld) 33.2 % . [facility] MCH Auto (RBC) [Entitic mass ]Ordered By: Jose Martin Sen on 12-19-2022 MCH (RBC) [Entitic mass] 31.1 pg 27.5-35.2 [facility] MCHC Auto (RBC) [Mass/Vol]Or dered By: Jose Martin Sen on 12-19-2022 MCHC (RBC) [Mass/Vol] 35.9 g/dL 32.5-35.6 [facility] MCV Auto (RBC) [Entitic vol] Ordered By: Jose Martin Sen on 12-19-2022 MCV (RBC) [Entitic vol] 86.6 fL 83.5-101 [facility] Monocytes Auto (Bld) [#/Vol] Ordered By: Jose Martin Sen on 12-19-2022 Monocytes (Bld) [#/Vol] 0.6 10*3/uL 0.0-0.8 [facility] Monocytes/100 WBC Auto (Bld) Ordered By: Jose Martin Sen on 12-19-2022 Monocytes/100 WBC (Bld) 9.2 % . [facility] Neutrophils Auto (Bld) [#/Vo l]Ordered By: Jose Martin Sen on 12-19-2022 Neutrophils (Bld) [#/Vol] 3.4 10*3/uL 1.8-7.7 [facility] Neutrophils/100 WBC Auto (Bl d)Ordered By: Jose Martin Sen on 12-19-2022 Neutrophils/100 WBC (Bld) 54.3 % . [facility] No Panel InformationOrdered By: Jose Martin Sen on 12-19-2022 Estimated GFR (CKD-EPI) > 60.0 mL/Min [facility] Creatinine Clearance (Chem 79.00 [facility] Nucleated erythrocytes [Pres ence] in Blood by Automated countOrdered By: Jose Martin Sen on 12-19-2022 Nucleated RBC Auto Ql (Bld) 0.0 /100{WBC} 0-0.5 [facility] Platelet mean volume Auto (B ld) [Entitic vol]Ordered By: Jose Martin Sen on 12-19-2022 Platelet mean volume (Bld) [Entitic vol] 7.9 fL 6.6-10.1 [facility] Platelets Auto (Bld) [#/Vol] Ordered By: Jose Martin Sen on 12-19-2022 Platelets (Bld) [#/Vol] 248 10*3/uL 150-450 [facility] Potassium [Moles/volume] in Serum or PlasmaOrdered By: Jose Martin Sen on 12-19-2022 Potassium [Moles/Vol] 3.5 mmol/L 3.5-5.1 [facility] RBC Auto (Bld) [#/Vol]Ordere d By: Jose Martin Sen on 12-19-2022 RBC (Bld) [#/Vol] 2.62 10*6/uL 3.90-5.60 [facility] Serum or plasma anion gap de terminationOrdered By: Jose Martin Sen on 12-19-2022 Anion gap [Moles/Vol] 9.8 mmol/L 6.0-15.0 [facility] Sodium [Moles/volume] in Ser um or PlasmaOrdered By: Jose Martin Sen on 12-19-2022 Sodium [Moles/Vol] 143 mmol/L 136-145 [facility] Urea nitrogen [Mass/volume] in Serum or PlasmaOrdered By: Jose Martin Sen on 12-19-2022 Urea nitrogen [Mass/Vol] 16 mg/dL 7 [facility] WBC Auto (Bld) [#/Vol]Ordere d By: Jose Martin Sen on 12-19-2022 WBC (Bld) [#/Vol] 6.3 10*3/uL 4.1-10.5 [facility] Basic Metabolic Panelon 11-26 Anion gap [Moles/Vol] 11.5 mmol/L Normal 6.0-15.0 [facility] Comment on above: Performed By: #### B MP, CBC #### [facility] [address] [place] [address] [place] Calcium [Mass/Vol] 9.1 mg/dL Normal 8.6-10.3 [facility] Comment on above: Performed By: #### B MP, CBC #### [facility] [address] [place] [address] [place] Chloride [Moles/Vol] 106 mmol/L Normal 98-107 [facility] Comment on above: Performed By: #### B MP, CBC #### [facility] [address] [place] [id number] [place] CO2 [Moles/Vol] 28.7 mmol/L Normal 21.0-31.0 [facility] Comment on above: Performed By: #### B MP, CBC #### [facility] [address] [place] [id number] [place] Creatinine [Mass/Vol] 1.12 mg/dL Normal 0.70-1.30 [facility] Comment on above: Performed By: #### B MP, CBC #### [facility] [address] [place] [address] [place] Creatinine Clr Calc Pharmacy 61.10 Normal [facility] Comment on above: Result Comment: PERF ORMED BY: [facility] [address] [place] [address] PATHOLOGIST ACCESS REP TERESA PATTERSON M.D. Performed By: #### B MP, CBC #### [facility] [address] [place] [address] [place] GFR/1.73 sq M.predicted MDRD (S/P/Bld) [Vol rate/Area] mL/min/{1.73_m2} Normal [facility] Comment on above: Performed By: #### B MP, CBC #### [facility] [address] Glucose [Mass/Vol] 105 mg/dL High 70-100 [facility] Comment on above: Result Comment: [facility] Glucose Reference Range is dependent on time and content of last meal. Glucose of more than 200 mg/dL in a nonstressed, ambulatory subject supports the diagnosis of Diabetes Mellitus. ADA recommended reference range Performed By: #### B MP, CBC #### [facility] [address] Potassium [Moles/Vol] 3.2 mmol/L Low 3.5-5.1 [facility] Comment on above: Performed By: #### B MP, CBC #### [facility] [address] Sodium [Moles/Vol] 143 mmol/L Normal 136-145 [facility] Comment on above: Performed By: #### B MP, CBC #### [facility] [address] [place] [address] [place] Urea nitrogen [Mass/Vol] 25 mg/dL Normal 7-25 [facility] Comment on above: Performed By: #### B MP, CBC #### [facility] [address] [place] [address] [place] Magnesiumon 12-14-2022 Magnesium [Mass/Vol] 2.0 mg/dL Normal 1.9-2.7 [facility] Comment on above: Result Comment: PERF ORMED BY: [place] [address] PATHOLOGIST ACCESS REP TERESA PATTERSON M.D. Performed By: #### B MP, CBC #### [facility] [address] [place] [address] [facility] Magnesium [Mass/volume] in S shani or PlasmaOrdered By: Janice Altamirano on 12-14-2022 Magnesium [Mass/Vol] 2.0 mg/dL 1.9-2.7 [facility] Potassiumon 12-14-2022 Potassium [Moles/Vol] 3.5 mmol/L Normal 3.5-5.1 [facility] Comment on above: Result Comment: PERF ORMED BY: [facility] [address] [facility]. [place] [id number] PATHOLOGIST ACCESS REP TERESA PATTERSON M.D. Performed By: #### F ER, [id number], FE and TIBC, MG #### [facility] [address] [place] [address] [facility] Alanine aminotransferase [En zymatic activity/volume] in Serum or PlasmaOrdered By: Santosh Rivera on 12-13-2022 ALT [Catalytic activity/Vol] 25 U/L 7-52 [facility] Albumin [Mass/volume] in Ser um or Plasma by Bromocresol green (BCG) dye binding methoOrdered By: Santosh Rivera on 12-13-2022 Albumin BCG dye [Mass/Vol] 4.0 g/dL 3.5-5.7 [facility] Alkaline phosphatase [Enzyma tic activity/volume] in Serum or PlasmaOrdered By: Santosh Rivera on 12-13-2022 ALP [Catalytic activity/Vol] 72 U/L 34-104 [facility] Aspartate aminotransferase [ Enzymatic activity/volume] in Serum or PlasmaOrdered By: Santosh Rivera on 12-13-2022 AST [Catalytic activity/Vol] 15 U/L 13-39 [facility] Bilirubin.total [Mass/volume ] in Serum or PlasmaOrdered By: Santosh Rivera on 12-13-2022 Bilirubin [Mass/Vol] 0.6 mg/dL 0.3-1.0 [facility] Complete Blood Count Auto Di ffon 12-13-2022 Basophils (Bld) [#/Vol] 0.1 10*3/uL Normal 0.0-0.2 [facility] Comment on above: Result Comment: PERF ORMED BY: [place] [address] PATHOLOGIST ACCESS REP TERESA PATTERSON M.D. Performed By: #### B MP, CBC #### [facility] [address] [place] [address] Basophils/100 WBC (Bld) 1.2 % Normal . [facility] Comment on above: Performed By: #### B MP, CBC #### [address] Eosinophils (Bld) [#/Vol] 0.2 10*3/uL Normal 0.0-0.45 [facility] Comment on above: Performed By: #### B MP, CBC #### [address] Eosinophils/100 WBC (Bld) 2.7 % Normal . [facility] Comment on above: Performed By: #### B MP, CBC #### [address] Erythrocyte distribution width (RBC) [Ratio] 14.5 % Normal 12.0-14.8 [facility] Comment on above: Performed By: #### B MP, CBC #### [address] Hematocrit (Bld) [Volume fraction] 25.4 % Low 38.8-50.0 [facility] Comment on above: Performed By: #### B MP, CBC #### [place] [address] [place] Hemoglobin (Bld) [Mass/Vol] 9.1 g/dL Low 13.0-17.0 [facility] Comment on above: Performed By: #### B MP, CBC #### [facility] [address] [place] [address] [place] Lymphocytes (Bld) [#/Vol] 2.5 10*3/uL Normal 1.00-4.8 [facility] Comment on above: Performed By: #### B MP, CBC #### [address] Lymphocytes/100 WBC (Bld) 36.9 % Normal . [facility] Comment on above: Performed By: #### B MP, CBC #### [facility] [address] MCH (RBC) [Entitic mass] 31.5 pg Normal 27.5-35.2 [facility] Comment on above: Performed By: #### B MP, CBC #### [address] MCV (RBC) [Entitic vol] 87.7 fL Normal 83.5-101 [facility] Comment on above: Performed By: #### B MP, CBC #### [address] Mean Corpuscular HGB Conc 35.9 g/dL High 32.5-35.6 [facility] Comment on above: Performed By: #### B MP, CBC #### [place] [address] [place] Monocytes (Bld) [#/Vol] 0.7 10*3/uL Normal 0.0-0.8 [facility] Comment on above: Performed By: #### B MP, CBC #### [address] Monocytes/100 WBC (Bld) 9.9 % Normal . [facility] Comment on above: Performed By: #### B MP, CBC #### [address] Neutrophils (Bld) [#/Vol] 3.3 10*3/uL Normal 1.8-7.7 [facility] Comment on above: Performed By: #### B MP, CBC #### [address] Neutrophils/100 WBC (Bld) 49.3 % Normal . [facility] Comment on above: Performed By: #### B MP, CBC #### [place] [address] NRBC% 0.1 /100{WBC} Normal 0-0.5 [facility] Comment on above: Performed By: #### B MP, CBC #### [address] Platelet mean volume (Bld) [Entitic vol] 7.8 fL Normal 6.6-10.1 [facility] Comment on above: Performed By: #### B MP, CBC #### [address] Platelets (Bld) [#/Vol] 257 10*3/uL Normal 150-450 [facility] Comment on above: Performed By: #### B MP, CBC #### [address] RBC (Bld) [#/Vol] 2.90 10*6/uL Low 3.90-5.60 [facility] Comment on above: Performed By: #### B MP, CBC #### [address] WBC (Bld) [#/Vol] 6.7 10*3/uL Normal 4.1-10.5 [facility] Comment on above: Performed By: #### B MP, CBC #### [address] Comprehensive Metabolic Pane nitza 12-13-2022 Albumin [Mass/Vol] 4.0 g/dL Normal 3.5-5.7 [facility] Comment on above: Performed By: #### B MP, CBC #### [address] Albumin/Globulin [Mass ratio] 1.5 {ratio} Normal [facility] Comment on above: Performed By: #### B MP, CBC #### [address] ALP [Catalytic activity/Vol] 72 U/L Normal 34-104 [facility] Comment on above: Performed By: #### B MP, CBC #### [facility] [address] ALT [Catalytic activity/Vol] 25 U/L Normal 7-52 [facility] Comment on above: Performed By: #### B MP, CBC #### [facility] [address] Anion gap [Moles/Vol] 11.2 mmol/L Normal 6.0-15.0 [facility] Comment on above: Performed By: #### B MP, CBC #### [facility] [address] AST [Catalytic activity/Vol] 15 U/L Normal 13-39 [facility] Comment on above: Performed By: #### B MP, CBC #### [address] Bilirubin [Mass/Vol] 0.6 mg/dL Normal 0.3-1.0 [facility] Comment on above: Performed By: #### B MP, CBC #### [address] Calcium [Mass/Vol] 9.0 mg/dL Normal 8.6-10.3 [facility] Comment on above: Performed By: #### B MP, CBC #### [address] Chloride [Moles/Vol] 106 mmol/L Normal 98-107 [facility] Comment on above: Performed By: #### B MP, CBC #### [address] CO2 [Moles/Vol] 28.0 mmol/L Normal 21.0-31.0 [facility] Comment on above: Performed By: #### B MP, CBC #### [facility] [address] [place] [address] Creatinine [Mass/Vol] 1.18 mg/dL Normal 0.70-1.30 [facility] Comment on above: Performed By: #### B MP, CBC #### [facility] [address] [place] [address] [place] Creatinine Clr Calc Pharmacy 58.00 [facility] Comment on above: Performed By: #### B MP, CBC #### [facility] [address] [place] [address] [place] GFR/1.73 sq M.predicted MDRD (S/P/Bld) [Vol rate/Area] mL/min/{1.73_m2} [facility] Comment on above: Performed By: #### B MP, CBC #### [facility] [address] Globulin (S) [Mass/Vol] 2.7 g/dL [facility] Comment on above: Performed By: #### B MP, CBC #### [address] Glucose [Mass/Vol] 85 mg/dL Normal 70-100 [facility] Comment on above: Result Comment: [facility] Glucose Reference Range is dependent on time and content of last meal. Glucose of more than 200 mg/dL in a nonstressed, ambulatory subject supports the diagnosis of Diabetes Mellitus. ADA recommended reference range Performed By: #### B MP, CBC #### [address] Potassium [Moles/Vol] 3.2 mmol/L Low 3.5-5.1 [facility] Comment on above: Performed By: #### B MP, CBC #### [address] Protein [Mass/Vol] 6.7 g/dL Normal 6.4-8.9 [facility] Comment on above: Performed By: #### B MP, CBC #### [facility] [address] [place] [address] [place] Sodium [Moles/Vol] 142 mmol/L Normal 136-145 [facility] Comment on above: Performed By: #### B MP, CBC #### [address] Urea nitrogen [Mass/Vol] 20 mg/dL Normal 7-25 [facility] Comment on above: Performed By: #### B MP, CBC #### [facility] [address] [place] [id number] [facility] Globulin Calc (S) [Mass/Vol] Ordered By: Santosh Rivera on 12-13-2022 Globulin (S) [Mass/Vol] 2.7 g/dL [facility] Prealbuminon 12-13-2022 Prealbumin [Mass/Vol] 26.1 mg/dL Normal 17.0-34.0 [facility] Comment on above: Result Comment: PERF ORMED BY: [facility] [address] [place] [address] PATHOLOGIST ACCESS REP TERESA PATTERSON M.D. Performed By: #### B MP, CBC #### [facility] [address] Prealbumin [Mass/volume] in Serum or PlasmaOrdered By: Santosh Rivera on 12-13-2022 Prealbumin [Mass/Vol] 26.1 mg/dL 17.0-34.0 [facility] Protein [Mass/volume] in Ser um or PlasmaOrdered By: Santosh Rivera on 12-13-2022 Protein [Mass/Vol] 6.7 g/dL 6.4-8.9 [facility] Serum or plasma albumin/glob ulin mass ratioOrdered By: Santosh Rivera on 12-13-2022 Albumin/Globulin [Mass ratio] 1.5 {ratio} [facility] Glucose Glucometer (BldC) [M ass/Vol]Ordered By: Jose Martin Sen on 12-12-2022 Glucose [Mass/Vol] 146 mg/dL [facility] Comment on above: Random Glucose Refer ence Range is dependent on time and content of last meal. Glucose of more than 200 mg/dL in a nonstressed, ambulatory subject supports the diagnosis of Diabetes Mellitus. Glucose Poct Glucometerson 1 Glucose [Mass/Vol] 146 mg/dL Normal [facility] Comment on above: Result Comment: [place] [facility] Glucose Reference Range is dependent on time and content of last meal. Glucose of more than 200 mg/dL in a nonstressed, ambulatory subject supports the diagnosis of Diabetes Mellitus. PERFORMED BY: [place] [address] PATHOLOGIST ACCESS REP TERESA PATTERSON M.D. Performed By: #### F ER, [id number], FE and TIBC, MG #### [address] Basic Metabolic Panelon 11-26 Anion gap [Moles/Vol] 10.1 mmol/L Normal 6.0-15.0 [facility] Comment on above: Performed By: #### F ER, [id number], FE and TIBC, MG #### [address] Calcium [Mass/Vol] 9.2 mg/dL Normal 8.6-10.3 [facility] Comment on above: Performed By: #### F ER, [id number], FE and TIBC, MG #### [address] Chloride [Moles/Vol] 105 mmol/L Normal 98-107 [facility] Comment on above: Performed By: #### F ER, [id number], FE and TIBC, MG #### [address] CO2 [Moles/Vol] 30.4 mmol/L Normal 21.0-31.0 [facility] Comment on above: Performed By: #### F ER, [id number], FE and TIBC, MG #### [facility] [address] [place] [address] Creatinine [Mass/Vol] 1.06 mg/dL Normal 0.70-1.30 [facility] Comment on above: Performed By: #### F ER, [id number], FE and TIBC, MG #### [address] Creatinine Clr Calc Pharmacy 66.33 Normal [facility] Comment on above: Result Comment: PERF ORMED BY: [facility] [address] [place] [address] PATHOLOGIST ACCESS REP TERESA PATTERSON M.D. Performed By: #### F ER, [id number], FE and TIBC, MG #### [facility] [address] GFR/1.73 sq M.predicted MDRD (S/P/Bld) [Vol rate/Area] mL/min/{1.73_m2} Normal [facility] Comment on above: Performed By: #### F ER, [id number], FE and TIBC, MG #### [facility] [address] Glucose [Mass/Vol] 99 mg/dL Normal 70-100 [facility] Comment on above: Result Comment: [facility] Glucose Reference Range is dependent on time and content of last meal. Glucose of more than 200 mg/dL in a nonstressed, ambulatory subject supports the diagnosis of Diabetes Mellitus. ADA recommended reference range Performed By: #### F ER, [id number], FE and TIBC, MG #### [facility] [address] Potassium [Moles/Vol] 3.5 mmol/L Normal 3.5-5.1 [facility] Comment on above: Performed By: #### F ER, [id number], FE and TIBC, MG #### [facility] [address] Sodium [Moles/Vol] 142 mmol/L Normal 136-145 [facility] Comment on above: Performed By: #### F ER, [id number], FE and TIBC, MG #### [facility] [address] [place] [address] [place] Urea nitrogen [Mass/Vol] 13 mg/dL Normal 7-25 [facility] Comment on above: Performed By: #### F ER, [id number], FE and TIBC, MG #### [facility] [address] [place] [address] [place] Basophils Auto (Bld) [#/Vol] Ordered By: Mindi Juan on 12-11-2022 Basophils (Bld) [#/Vol] 0.1 10*3/uL 0.0-0.2 [facility] Basophils/100 WBC Auto (Bld) Ordered By: Mindi Juan on 12-11-2022 Basophils/100 WBC (Bld) 1.2 % . [facility] Calcium [Mass/volume] in Ser um or PlasmaOrdered By: Mindi Juan on 12-11-2022 Calcium [Mass/Vol] 9.2 mg/dL 8.6-10.3 [facility] Carbon dioxide, total [Moles /volume] in Serum or PlasmaOrdered By: Mindi Juan on 12-11-2022 CO2 [Moles/Vol] 30.4 mmol/L 21.0-31.0 [facility] Chloride [Moles/volume] in S shani or PlasmaOrdered By: Mindi Juan on 12-11-2022 Chloride [Moles/Vol] 105 mmol/L 98-107 [facility] Complete Blood Count Auto Di ffon 12-11-2022 Basophils (Bld) [#/Vol] 0.1 10*3/uL Normal 0.0-0.2 [facility] Comment on above: Result Comment: PERF ORMED BY: [place] [address] PATHOLOGIST ACCESS REP TERESA PATTERSON M.D. Performed By: #### F ER, [id number], FE and TIBC, MG #### [facility] [address] Basophils/100 WBC (Bld) 1.2 % Normal . [facility] Comment on above: Performed By: #### F ER, [id number], FE and TIBC, MG #### [facility] [address] Eosinophils (Bld) [#/Vol] 0.2 10*3/uL Normal 0.0-0.45 [facility] Comment on above: Performed By: #### F ER, [id number], FE and TIBC, MG #### [address] Eosinophils/100 WBC (Bld) 2.3 % Normal . [facility] Comment on above: Performed By: #### F ER, [id number], FE and TIBC, MG #### [address] Erythrocyte distribution width (RBC) [Ratio] 14.4 % Normal 12.0-14.8 [facility] Comment on above: Performed By: #### F ER, [id number], FE and TIBC, MG #### [address] Hematocrit (Bld) [Volume fraction] 24.6 % Low 38.8-50.0 [facility] Comment on above: Performed By: #### F ER, [id number], FE and TIBC, MG #### [address] Hemoglobin (Bld) [Mass/Vol] 9.1 g/dL Low 13.0-17.0 [facility] Comment on above: Performed By: #### F ER, [id number], FE and TIBC, MG #### [address] Lymphocytes (Bld) [#/Vol] 2.4 10*3/uL Normal 1.00-4.8 [facility] Comment on above: Performed By: #### F ER, [id number], FE and TIBC, MG #### [address] Lymphocytes/100 WBC (Bld) 30.3 % Normal . [facility] Comment on above: Performed By: #### F ER, [id number], FE and TIBC, MG #### [address] MCH (RBC) [Entitic mass] 31.9 pg Normal 27.5-35.2 [facility] Comment on above: Performed By: #### F ER, [id number], FE and TIBC, MG #### [address] MCV (RBC) [Entitic vol] 86.7 fL Normal 83.5-101 [facility] Comment on above: Performed By: #### F ER, [id number], FE and TIBC, MG #### [address] Mean Corpuscular HGB Conc 36.8 g/dL High 32.5-35.6 [facility] Comment on above: Performed By: #### F ER, [id number], FE and TIBC, MG #### [address] Monocytes (Bld) [#/Vol] 0.6 10*3/uL Normal 0.0-0.8 [facility] Comment on above: Performed By: #### F ER, [id number], FE and TIBC, MG #### [address] Monocytes/100 WBC (Bld) 7.5 % Normal . [facility] Comment on above: Performed By: #### F ER, [id number], FE and TIBC, MG #### [address] Neutrophils (Bld) [#/Vol] 4.7 10*3/uL Normal 1.8-7.7 [facility] Comment on above: Performed By: #### F ER, [id number], FE and TIBC, MG #### [address] Neutrophils/100 WBC (Bld) 58.7 % Normal . [facility] Comment on above: Performed By: #### F ER, [id number], FE and TIBC, MG #### [address] NRBC% 0.1 /100{WBC} Normal 0-0.5 [facility] Comment on above: Performed By: #### F ER, [id number], FE and TIBC, MG #### [facility] [address] Platelet mean volume (Bld) [Entitic vol] 7.4 fL Normal 6.6-10.1 [facility] Comment on above: Performed By: #### F ER, [id number], FE and TIBC, MG #### [facility] [address] Platelets (Bld) [#/Vol] 229 10*3/uL Normal 150-450 [facility] Comment on above: Performed By: #### F ER, [id number], FE and TIBC, MG #### [facility] [address] RBC (Bld) [#/Vol] 2.84 10*6/uL Low 3.90-5.60 [facility] Comment on above: Performed By: #### F ER, [id number], FE and TIBC, MG #### [facility] [address] WBC (Bld) [#/Vol] 8.1 10*3/uL Normal 4.1-10.5 [facility] Comment on above: Performed By: #### F ER, [id number], FE and TIBC, MG #### [address] Creatinine [Mass/volume] in Serum or PlasmaOrdered By: Mindi Juan on 12-11-2022 Creatinine [Mass/Vol] 1.06 mg/dL 0.70-1.30 [facility] Eosinophils Auto (Bld) [#/Vo l]Ordered By: Mindi Juan on 12-11-2022 Eosinophils (Bld) [#/Vol] 0.2 10*3/uL 0.0-0.45 [facility] Eosinophils/100 WBC Auto (Bl d)Ordered By: Mindi Juan on 12-11-2022 Eosinophils/100 WBC (Bld) 2.3 % . [facility] Erythrocyte distribution wid th Auto (RBC) [Ratio]Ordered By: Mindi Juan on 12-11-2022 Erythrocyte distribution width (RBC) [Ratio] 14.4 % 12.0-14.8 [facility] Glucose [Mass/volume] in Ser um or PlasmaOrdered By: Mindi Juan on 12-11-2022 Glucose [Mass/Vol] 99 mg/dL 70-100 [facility] Comment on above: ADA recommended refe rence rangeRandom Glucose Reference Range is dependent on time and content of last meal. Glucose of more than 200 mg/dL in a nonstressed, ambulatory subject supports the diagnosis of Diabetes Mellitus. Hematocrit Auto (Bld) [Volum e fraction]Ordered By: Mindi Juan on 12-11-2022 Hematocrit (Bld) [Volume fraction] 24.6 % 38.8-50.0 [facility] Hemoglobin [Mass/volume] in BloodOrdered By: Mindi Juan on 12-11-2022 Hemoglobin (Bld) [Mass/Vol] 9.1 g/dL 13.0-17.0 [facility] Leukocytes [#/volume] correc khadra for nucleated erythrocytes in Blood by Automated counOrdered By: Mindi Juan on 12-11-2022 WBC corrected for nucl RBC Auto (Bld) [#/Vol] 8.1 10*3/uL 4.1-10.5 [facility] Lymphocytes Auto (Bld) [#/Vo l]Ordered By: Mindi Juan on 12-11-2022 Lymphocytes (Bld) [#/Vol] 2.4 10*3/uL 1.00-4.8 [facility] Lymphocytes/100 WBC Auto (Bl d)Ordered By: Mindi Juan on 12-11-2022 Lymphocytes/100 WBC (Bld) 30.3 % . [facility] MCH Auto (RBC) [Entitic mass ]Ordered By: Mindi Juan on 12-11-2022 MCH (RBC) [Entitic mass] 31.9 pg 27.5-35.2 [facility] MCHC Auto (RBC) [Mass/Vol]Or dered By: Mindi Juan on 12-11-2022 MCHC (RBC) [Mass/Vol] 36.8 g/dL 32.5-35.6 [facility] MCV Auto (RBC) [Entitic vol] Ordered By: Mindi Juan on 12-11-2022 MCV (RBC) [Entitic vol] 86.7 fL 83.5-101 [facility] MR head/brain wo conon 12-11 MR head/brain wo con [facility] [place] [address] [place] [address] MRI Report Signed Patient: Viraj Doherty MR#: [id number] : 1955 Acct:[id number] Age/Sex: 67 / M ADM Date: 12/09/22 Loc: Room: [address] [place] [address] Type: ADM IN Attending Dr: Davey Harding MD Copies to: MD Ton Woodward MD Ordering Provider: Ton Wilkinson MD Date of Service: 12/11/22 MR/MR head/brain wo con: seizure MR head/brain wo con 12/10/2022 12:15 AM SIGN AND SYMPTOMS: History of left thalamic stroke. Witnessed seizure PROTOCOL: Multiplanar multisequence MR images of brain were obtained without IV contrast COMPARISON: 11/07/2022 and 10/31/2022 FINDINGS: Extra axial spaces: There is mild diffuse age-related cortical atrophy. Hemorrhage: None. Ventricular system: Within normal limits. Basal cisterns: Within normal limits and not effaced. Cerebral parenchyma: There has been interval resolution of diffusion restriction within the left lateral thalamus. There are new areas of diffusion restriction along the left MCA/PEDRO LUIS watershed territory involving the left frontal and parietal lobes and to lesser extent the lateral aspect of the left temporal lobe. Multiple remote lacunar infarcts are noted in the deep santos nuclei and periventricular white matter bilaterally. Multifocal T2 and FLAIR hyperintense signal is noted consistent with chronic microvascular ischemic change. Midline shift: None.. Cerebellum: Within normal limits. Brainstem: Within normal limits. OTHER: Calvarium: Normal marrow signal. Vascular system: Satisfactory flow voids within the anterior and posterior circulation. Visualized Paranasal sinuses: Within normal limits. Visualized Orbits: Within normal limits. Visualized upper cervical spine: Within normal limits. Sella and skull base: Within normal limits. MR/MR head/brain wo con IMPRESSION: New areas of acute ischemia. Ischemia are noted in the left MCA territory, greatest along the left MCA/PEDRO LUIS watershed territory. Interval resolution of diffusion restriction in the lateral aspect of the left thalamus consistent with continued interval evolution of a chronic infarct. Multiple remote lacunar infarcts are noted in the deep santos nuclei and periventricular white matter bilaterally. Additional chronic age-related neurodegenerative changes are noted, as above. Impression dictated by: Jeff Pat M.D.12/11/2022 12:31 PM Dictation Location: [place] [address] Transcribed By: [facility] 12/11/22 1231 Dictated By: Jeff Pat II, MD 12/11/22 1218 Signed By: 12/11/22 1231 Normal [facility] Monocytes Auto (Bld) [#/Vol] Ordered By: Mindi Juan on 12-11-2022 Monocytes (Bld) [#/Vol] 0.6 10*3/uL 0.0-0.8 [facility] Monocytes/100 WBC Auto (Bld) Ordered By: Mindi Juan on 12-11-2022 Monocytes/100 WBC (Bld) 7.5 % . [facility] Neutrophils Auto (Bld) [#/Vo l]Ordered By: Mindi Juan on 12-11-2022 Neutrophils (Bld) [#/Vol] 4.7 10*3/uL 1.8-7.7 [facility] Neutrophils/100 WBC Auto (Bl d)Ordered By: Mindi Juan on 12-11-2022 Neutrophils/100 WBC (Bld) 58.7 % . [facility] No Panel InformationOrdered By: Mindi Juan on 12-11-2022 Estimated GFR (CKD-EPI) > 60.0 mL/Min [facility] Creatinine Clearance (Chem 66.33 [facility] Nucleated erythrocytes [Pres ence] in Blood by Automated countOrdered By: Mindi Juan on 12-11-2022 Nucleated RBC Auto Ql (Bld) 0.1 /100{WBC} 0-0.5 [facility] Platelet mean volume Auto (B ld) [Entitic vol]Ordered By: Mindi Juan on 12-11-2022 Platelet mean volume (Bld) [Entitic vol] 7.4 fL 6.6-10.1 [facility] Platelets Auto (Bld) [#/Vol] Ordered By: Mindi Carolinae on 12-11-2022 Platelets (Bld) [#/Vol] 229 10*3/uL 150-450 [facility] Potassium [Moles/volume] in Serum or PlasmaOrdered By: Mindi Juan on 12-11-2022 Potassium [Moles/Vol] 3.5 mmol/L 3.5-5.1 [facility] RBC Auto (Bld) [#/Vol]Ordere d By: Mindi Carolinae on 12-11-2022 RBC (Bld) [#/Vol] 2.84 10*6/uL 3.90-5.60 [facility] Serum or plasma anion gap de terminationOrdered By: Mindi Juan on 12-11-2022 Anion gap [Moles/Vol] 10.1 mmol/L 6.0-15.0 [facility] Sodium [Moles/volume] in Ser um or PlasmaOrdered By: Mindi Juan on 12-11-2022 Sodium [Moles/Vol] 142 mmol/L 136-145 [facility] Urea nitrogen [Mass/volume] in Serum or PlasmaOrdered By: Mindi Carolinae on 12-11-2022 Urea nitrogen [Mass/Vol] 13 mg/dL 7-25 [facility] WBC Auto (Bld) [#/Vol]Ordere d By: Mindi Juan on 12-11-2022 WBC (Bld) [#/Vol] 8.1 10*3/uL 4.1-10.5 [facility] Basic Metabolic Panelon 11-26 Anion gap [Moles/Vol] 10.2 mmol/L Normal 6.0-15.0 [facility] Comment on above: Performed By: #### F ER, [id number], FE and TIBC, MG #### [facility] [address] Calcium [Mass/Vol] 8.9 mg/dL Normal 8.6-10.3 [facility] Comment on above: Performed By: #### F ER, [id number], FE and TIBC, MG #### [facility] [address] Chloride [Moles/Vol] 106 mmol/L Normal 98-107 [facility] Comment on above: Performed By: #### F ER, [id number], FE and TIBC, MG #### [facility] [address] CO2 [Moles/Vol] 26.8 mmol/L Normal 21.0-31.0 [facility] Comment on above: Performed By: #### F ER, [id number], FE and TIBC, MG #### [facility] [address] Creatinine [Mass/Vol] 0.83 mg/dL Normal 0.70-1.30 [facility] Comment on above: Performed By: #### F ER, [id number], FE and TIBC, MG #### [facility] [address] [place] [address] [place] Creatinine Clr Calc Pharmacy 84.35 [facility] Comment on above: Result Comment: PERF ORMED BY: [place] [address] PATHOLOGIST ACCESS REP TERESA PATTERSON M.D. Performed By: #### F ER, [id number], FE and TIBC, MG #### [facility] [address] [place] [address] [place] GFR/1.73 sq M.predicted MDRD (S/P/Bld) [Vol rate/Area] mL/min/{1.73_m2} [facility] Comment on above: Performed By: #### F ER, [id number], FE and TIBC, MG #### [facility] [address] Glucose [Mass/Vol] 100 mg/dL Normal 70-100 [facility] Comment on above: Result Comment: [place] Glucose Reference Range is dependent on time and content of last meal. Glucose of more than 200 mg/dL in a nonstressed, ambulatory subject supports the diagnosis of Diabetes Mellitus. ADA recommended reference range Performed By: #### F ER, [id number], FE and TIBC, MG #### [address] Potassium [Moles/Vol] 3.0 mmol/L Low 3.5-5.1 [facility] Comment on above: Performed By: #### F ER, [id number], FE and TIBC, MG #### [address] Sodium [Moles/Vol] 140 mmol/L Normal 136-145 [facility] Comment on above: Performed By: #### F ER, [id number], FE and TIBC, MG #### [address] Urea nitrogen [Mass/Vol] 16 mg/dL Normal 7-25 [facility] Comment on above: Performed By: #### F ER, [id number], FE and TIBC, MG #### [address] Complete Blood Count Auto Di ffon 12-10-2022 Basophils (Bld) [#/Vol] 0.1 10*3/uL Normal 0.0-0.2 [facility] Comment on above: Result Comment: PERF ORMED BY: [place] [address] PATHOLOGIST ACCESS REP TERESA PATTERSON M.D. Performed By: #### F ER, [id number], FE and TIBC, MG #### [address] Basophils/100 WBC (Bld) 0.9 % Normal . [facility] Comment on above: Performed By: #### F ER, [id number], FE and TIBC, MG #### [address] Eosinophils (Bld) [#/Vol] 0.1 10*3/uL Normal 0.0-0.45 [facility] Comment on above: Performed By: #### F ER, [id number], FE and TIBC, MG #### [address] Eosinophils/100 WBC (Bld) 1.3 % Normal . [facility] Comment on above: Performed By: #### F ER, [id number], FE and TIBC, MG #### [address] Erythrocyte distribution width (RBC) [Ratio] 14.1 % Normal 12.0-14.8 [facility] Comment on above: Performed By: #### F ER, [id number], FE and TIBC, MG #### [address] Hematocrit (Bld) [Volume fraction] 23.2 % Low 38.8-50.0 [facility] Comment on above: Performed By: #### F ER, [id number], FE and TIBC, MG #### [address] Hemoglobin (Bld) [Mass/Vol] 8.4 g/dL Low 13.0-17.0 [facility] Comment on above: Performed By: #### F ER, [id number], FE and TIBC, MG #### [address] Lymphocytes (Bld) [#/Vol] 2.2 10*3/uL Normal 1.00-4.8 [facility] Comment on above: Performed By: #### F ER, [id number], FE and TIBC, MG #### [address] Lymphocytes/100 WBC (Bld) 24.2 % Normal . [facility] Comment on above: Performed By: #### F ER, [id number], FE and TIBC, MG #### [address] MCH (RBC) [Entitic mass] 31.3 pg Normal 27.5-35.2 [facility] Comment on above: Performed By: #### F ER, [id number], FE and TIBC, MG #### [address] MCV (RBC) [Entitic vol] 86.5 fL Normal 83.5-101 [facility] Comment on above: Performed By: #### F ER, [id number], FE and TIBC, MG #### [address] Mean Corpuscular HGB Conc 36.2 g/dL High 32.5-35.6 [facility] Comment on above: Performed By: #### F ER, [id number], FE and TIBC, MG #### [address] Monocytes (Bld) [#/Vol] 0.8 10*3/uL Normal 0.0-0.8 [facility] Comment on above: Performed By: #### F ER, [id number], FE and TIBC, MG #### [address] Monocytes/100 WBC (Bld) 9.1 % Normal . [facility] Comment on above: Performed By: #### F ER, [id number], FE and TIBC, MG #### [address] Neutrophils (Bld) [#/Vol] 5.8 10*3/uL Normal 1.8-7.7 [facility] Comment on above: Performed By: #### F ER, [id number], FE and TIBC, MG #### [address] Neutrophils/100 WBC (Bld) 64.5 % Normal . [facility] Comment on above: Performed By: #### F ER, [id number], FE and TIBC, MG #### [facility] [address] NRBC% 0.0 /100{WBC} Normal 0-0.5 [facility] Comment on above: Performed By: #### F ER, [id number], FE and TIBC, MG #### [address] Platelet mean volume (Bld) [Entitic vol] 7.6 fL Normal 6.6-10.1 [facility] Comment on above: Performed By: #### F ER, [id number], FE and TIBC, MG #### [address] Platelets (Bld) [#/Vol] 218 10*3/uL Normal 150-450 [facility] Comment on above: Performed By: #### F ER, [id number], FE and TIBC, MG #### [address] RBC (Bld) [#/Vol] 2.68 10*6/uL Low 3.90-5.60 [facility] Comment on above: Performed By: #### F ER, [id number], FE and TIBC, MG #### [address] WBC (Bld) [#/Vol] 8.9 10*3/uL Normal 4.1-10.5 [facility] Comment on above: Performed By: #### F ER, [id number], FE and TIBC, MG #### [address] Ferritinon 12-10-2022 Ferritin [Mass/Vol] 33.0 ng/mL Normal 23.9-336.2 [facility] Comment on above: Order Comment: Comme nt add Comment add Performed By: #### F ER, [id number], FE and TIBC, MG #### [address] Ferritin [Mass/volume] in Se rum or PlasmaOrdered By: Mindi Juan on 12-10-2022 Ferritin [Mass/Vol] 33.0 ng/mL 23.9-336.2 [facility] Folate [Mass/volume] in Seru m or PlasmaOrdered By: Mindi Juan on 12-10-2022 Folate [Mass/Vol] 10.4 ng/mL >5.9 [facility] Comment on above: Folate reference ran ge: >5.9 ng/mlThe WHO technical consultation on folate and vitamin [id number] has determined that folate concentrations lessthan 4 ng/ml are considered deficient. Hemoglobin and Hematocriton 12-10-2022 Hematocrit (Bld) [Volume fraction] 24.0 % Low 38.8-50.0 [facility] Comment on above: Result Comment: PERF ORMED BY: [place] [address] PATHOLOGIST ACCESS REP TERESA PATTERSON M.D. Performed By: #### F ER, [id number], FE and TIBC, MG #### [facility] [address] Hemoglobin (Bld) [Mass/Vol] 8.6 g/dL Low 13.0-17.0 [facility] Comment on above: Performed By: #### F ER, [id number], FE and TIBC, MG #### [facility] [address] Iron [Mass/volume] in Serum or PlasmaOrdered By: Mindi Juan on 12-10-2022 Iron [Mass/Vol] 38 ug/dL 50-212 [facility] Iron and TIBC Profileon 11-26 % Iron Saturation 11.6 % Low 20-50 [facility] Comment on above: Order Comment: Comme nt add Comment add Performed By: #### F ER, [id number], FE and TIBC, MG #### [facility] [address] [place] [address] [facility] Iron [Mass/Vol] 38 ug/dL Low 50-212 [facility] Comment on above: Order Comment: Comme nt add Comment add Performed By: #### F ER, [id number], FE and TIBC, MG #### [facility] [address] Total Iron Binding Capacity 329 ug/dL Normal 255-450 [facility] Comment on above: Order Comment: Comme nt add Comment add Performed By: #### F ER, [id number], FE and TIBC, MG #### [facility] [address] Transferrin [Mass/Vol] 235 mg/dL Normal 203-362 [facility] Comment on above: Order Comment: Comme nt add Comment add Performed By: #### F ER, [id number], FE and TIBC, MG #### [facility] [address] [place] [address] Iron binding capacity [Mass/ volume] in Serum or PlasmaOrdered By: Mindi Caitye on 12-10-2022 Iron binding capacity [Mass/Vol] 329 ug/dL 255-450 [facility] Iron saturation [Mass Fracti on] in Serum or PlasmaOrdered By: Mindi Caitye on 12-10-2022 Iron saturation [Mass fraction] 11.6 % 20-50 [facility] Magnesiumon 12-10-2022 Magnesium [Mass/Vol] 1.9 mg/dL Normal 1.9-2.7 [facility] Comment on above: Order Comment: Comme nt add Comment add Performed By: #### F ER, [id number], FE and TIBC, MG #### [facility] [address] [place] [address] [place] Magnesium [Mass/volume] in S shani or PlasmaOrdered By: Mindi Kentonskfabe on 12-10-2022 Magnesium [Mass/Vol] 1.9 mg/dL 1.9-2.7 [facility] Transferrin [Mass/volume] in Serum or PlasmaOrdered By: Mindi Kentonskfabe on 12-10-2022 Transferrin [Mass/Vol] 235 mg/dL 203-362 [facility] Vit. B12/Folate Profileon Cobalamin (Vitamin B12) [Mass/Vol] 228 pg/mL Normal 180-914 [facility] Comment on above: Order Comment: Comme nt add Comment add Performed By: #### F ER, [id number], FE and TIBC, MG #### [address] Folate 10.4 ng/mL Normal >5.9 [facility] Comment on above: Order Comment: Comme nt add Comment add Result Comment: Lydia te reference range: >5.9 ng/ml The WHO technical consultation on folate and vitamin b12 deficiencies has determined that folate concentrations less than 4 ng/ml are considered deficient. PERFORMED BY: [place] [address] PATHOLOGIST ACCESS REP TERESA PATTERSON M.D. Performed By: #### F ER, [id number], FE and TIBC, MG #### [address] Vitamin B12 ser/plasOrdered By: Mindi Juan on 12-10-2022 Cobalamin (Vitamin B12) [Mass/Vol] 228 pg/mL 180-914 [facility] Basic Metabolic Panelon 2 Anion gap [Moles/Vol] 6.5 mmol/L Normal 6.0-15.0 [facility] Comment on above: Performed By: #### F ER, [id number], FE and TIBC, MG #### [facility] [address] [place] [address] Calcium [Mass/Vol] 9.3 mg/dL Normal 8.6-10.3 [facility] Comment on above: Performed By: #### F ER, [id number], FE and TIBC, MG #### [address] Chloride [Moles/Vol] 105 mmol/L Normal 98-107 [facility] Comment on above: Performed By: #### F ER, [id number], FE and TIBC, MG #### [address] [place] [address] [place] CO2 [Moles/Vol] 28.0 mmol/L Normal 21.0-31.0 [facility] Comment on above: Performed By: #### F ER, [id number], FE and TIBC, MG #### [facility] [address] Creatinine [Mass/Vol] 1.15 mg/dL Normal 0.70-1.30 [facility] Comment on above: Performed By: #### F ER, [id number], FE and TIBC, MG #### [facility] [address] [place] [address] [place] Creatinine Clr Calc Pharmacy 59.85 [facility] Comment on above: Result Comment: PERF ORMED BY: [place] [address] PATHOLOGIST ACCESS REP TERESA PATTERSON M.D. Performed By: #### F ER, [id number], FE and TIBC, MG #### [facility] [address] GFR/1.73 sq M.predicted MDRD (S/P/Bld) [Vol rate/Area] mL/min/{1.73_m2} [facility] Comment on above: Performed By: #### F ER, [id number], FE and TIBC, MG #### [address] Glucose [Mass/Vol] 101 mg/dL High 70-100 [facility] Comment on above: Result Comment: [facility] Glucose Reference Range is dependent on time and content of last meal. Glucose of more than 200 mg/dL in a nonstressed, ambulatory subject supports the diagnosis of Diabetes Mellitus. ADA recommended reference range Performed By: #### F ER, [id number], FE and TIBC, MG #### [facility] [address] Potassium [Moles/Vol] 3.5 mmol/L Normal 3.5-5.1 [facility] Comment on above: Performed By: #### F ER, [id number], FE and TIBC, MG #### [facility] [address] [place] [address] [place] Sodium [Moles/Vol] 136 mmol/L Normal 136-145 [facility] Comment on above: Performed By: #### F ER, [id number], FE and TIBC, MG #### [facility] [address] [place] [address] [place] Urea nitrogen [Mass/Vol] 29 mg/dL High 7-25 [facility] Comment on above: Performed By: #### F ER, [id number], FE and TIBC, MG #### [facility] [address] Calcium [Mass/volume] in Ser um or PlasmaOrdered By: Jose Martin Sen on 11-15-2022 Calcium [Mass/Vol] 9.3 mg/dL 8.6-10.3 [facility] Carbon dioxide, total [Moles /volume] in Serum or PlasmaOrdered By: Jose Martin Sen on 11-15-2022 CO2 [Moles/Vol] 28.0 mmol/L 21.0-31.0 [facility] Chloride [Moles/volume] in S shani or PlasmaOrdered By: Jose Martin Sen on 11-15-2022 Chloride [Moles/Vol] 105 mmol/L 98-107 [facility] Creatinine [Mass/volume] in Serum or PlasmaOrdered By: Jose Martin Sen on 11-15-2022 Creatinine [Mass/Vol] 1.15 mg/dL 0.70-1.30 [facility] Glucose [Mass/volume] in Ser um or PlasmaOrdered By: Jose Martin Sen on 11-15-2022 Glucose [Mass/Vol] 101 mg/dL 70-100 [facility] Comment on above: ADA recommended refe rence rangeRandom Glucose Reference Range is dependent on time and content of last meal. Glucose of more than 200 mg/dL in a nonstressed, ambulatory subject supports the diagnosis of Diabetes Mellitus. No Panel InformationOrdered By: Jose Martin Sen on 11-15-2022 Estimated GFR (CKD-EPI) > 60.0 mL/Min [facility] Creatinine Clearance (Chem 59.85 [facility] Potassium [Moles/volume] in Serum or PlasmaOrdered By: Jose Martin Sen on 11-15-2022 Potassium [Moles/Vol] 3.5 mmol/L 3.5-5.1 [facility] Serum or plasma anion gap de terminationOrdered By: Jose Martin Sen on 11-15-2022 Anion gap [Moles/Vol] 6.5 mmol/L 6.0-15.0 [facility] Sodium [Moles/volume] in Ser um or PlasmaOrdered By: Jose Martin Sen on 11-15-2022 Sodium [Moles/Vol] 136 mmol/L 136-145 [facility] Urea nitrogen [Mass/volume] in Serum or PlasmaOrdered By: Jose Martin Sen on 11-15-2022 Urea nitrogen [Mass/Vol] 29 mg/dL 7-25 [facility] Basic Metabolic Panelon 10-27 Anion gap [Moles/Vol] 10.7 mmol/L Normal 6.0-15.0 [facility] Comment on above: Performed By: #### F ER, [id number], FE and TIBC, MG #### [facility] [address] Calcium [Mass/Vol] 9.3 mg/dL Normal 8.6-10.3 [facility] Comment on above: Performed By: #### F ER, [id number], FE and TIBC, MG #### [facility] [address] [place] [address] [place] Chloride [Moles/Vol] 103 mmol/L Normal 98-107 [facility] Comment on above: Performed By: #### F ER, [id number], FE and TIBC, MG #### [facility] [address] [place] [address] [place] CO2 [Moles/Vol] 26.8 mmol/L Normal 21.0-31.0 [facility] Comment on above: Performed By: #### F ER, [id number], FE and TIBC, MG #### [facility] [address] Creatinine [Mass/Vol] 1.09 mg/dL Normal 0.70-1.30 [facility] Comment on above: Performed By: #### F ER, [id number], FE and TIBC, MG #### [facility] [address] [place] [address] [place] Creatinine Clr Calc Pharmacy 66.04 [facility] Comment on above: Result Comment: PERF ORMED BY: [place] [address] PATHOLOGIST ACCESS REP TERESA PATTERSON M.D. Performed By: #### F ER, [id number], FE and TIBC, MG #### [address] GFR/1.73 sq M.predicted MDRD (S/P/Bld) [Vol rate/Area] mL/min/{1.73_m2} [facility] Comment on above: Performed By: #### F ER, [id number], FE and TIBC, MG #### [address] Glucose [Mass/Vol] 104 mg/dL High 70-100 [facility] Comment on above: Result Comment: [facility] Glucose Reference Range is dependent on time and content of last meal. Glucose of more than 200 mg/dL in a nonstressed, ambulatory subject supports the diagnosis of Diabetes Mellitus. ADA recommended reference range Performed By: #### F ER, [id number], FE and TIBC, MG #### [place] [address] [place] Potassium [Moles/Vol] 3.5 mmol/L Normal 3.5-5.1 [facility] Comment on above: Performed By: #### F ER, [id number], FE and TIBC, MG #### [address] Sodium [Moles/Vol] 137 mmol/L Normal 136-145 [facility] Comment on above: Performed By: #### F ER, [id number], FE and TIBC, MG #### [facility] [address] Urea nitrogen [Mass/Vol] 27 mg/dL High 7-25 [facility] Comment on above: Performed By: #### F ER, [id number], FE and TIBC, MG #### [facility] [address] [place] [address] [place] Basophils Auto (Bld) [#/Vol] Ordered By: Jose Martin Sen on 11-08-2022 Basophils (Bld) [#/Vol] 0.1 10*3/uL 0.0-0.2 [facility] Basophils/100 WBC Auto (Bld) Ordered By: Jose Martin Sen on 11-08-2022 Basophils/100 WBC (Bld) 0.9 % . [facility] Complete Blood Count Auto Di ffon 11-08-2022 Basophils (Bld) [#/Vol] 0.1 10*3/uL Normal 0.0-0.2 [facility] Comment on above: Result Comment: PERF ORMED BY: [place] [address] PATHOLOGIST ACCESS REP TERESA PATTERSON M.D. Performed By: #### F ER, [id number], FE and TIBC, MG #### [facility] [address] Basophils/100 WBC (Bld) 0.9 % Normal . [facility] Comment on above: Performed By: #### F ER, [id number], FE and TIBC, MG #### [facility] [address] [place] [address] [place] Eosinophils (Bld) [#/Vol] 0.1 10*3/uL Normal 0.0-0.45 [facility] Comment on above: Performed By: #### F ER, [id number], FE and TIBC, MG #### [facility] [address] [place] [address] [place] Eosinophils/100 WBC (Bld) 0.9 % Normal . [facility] Comment on above: Performed By: #### F ER, [id number], FE and TIBC, MG #### [address] Erythrocyte distribution width (RBC) [Ratio] 13.7 % Normal 12.0-14.8 [facility] Comment on above: Performed By: #### F ER, [id number], FE and TIBC, MG #### [address] Hematocrit (Bld) [Volume fraction] 43.8 % Normal 38.8-50.0 [facility] Comment on above: Performed By: #### F ER, [id number], FE and TIBC, MG #### [address] Hemoglobin (Bld) [Mass/Vol] 15.4 g/dL Normal 13.0-17.0 [facility] Comment on above: Performed By: #### F ER, [id number], FE and TIBC, MG #### [address] Lymphocytes (Bld) [#/Vol] 2.7 10*3/uL Normal 1.00-4.8 [facility] Comment on above: Performed By: #### F ER, [id number], FE and TIBC, MG #### [address] Lymphocytes/100 WBC (Bld) 28.3 % Normal . [facility] Comment on above: Performed By: #### F ER, [id number], FE and TIBC, MG #### [address] MCH (RBC) [Entitic mass] 30.5 pg Normal 27.5-35.2 [facility] Comment on above: Performed By: #### F ER, [id number], FE and TIBC, MG #### [address] MCV (RBC) [Entitic vol] 86.7 fL Normal 83.5-101 [facility] Comment on above: Performed By: #### F ER, [id number], FE and TIBC, MG #### [facility] [address] [place] [address] Mean Corpuscular HGB Conc 35.2 g/dL Normal 32.5-35.6 [facility] Comment on above: Performed By: #### F ER, [id number], FE and TIBC, MG #### [address] Monocytes (Bld) [#/Vol] 1.3 10*3/uL High 0.0-0.8 [facility] Comment on above: Performed By: #### F ER, [id number], FE and TIBC, MG #### [address] Monocytes/100 WBC (Bld) 13.4 % Normal . [facility] Comment on above: Performed By: #### F ER, [id number], FE and TIBC, MG #### [address] Neutrophils (Bld) [#/Vol] 5.3 10*3/uL Normal 1.8-7.7 [facility] Comment on above: Performed By: #### F ER, [id number], FE and TIBC, MG #### [address] Neutrophils/100 WBC (Bld) 56.5 % Normal . [facility] Comment on above: Performed By: #### F ER, [id number], FE and TIBC, MG #### [facility] [address] [place] [address] NRBC% 0.1 /100{WBC} Normal 0-0.5 [facility] Comment on above: Performed By: #### F ER, [id number], FE and TIBC, MG #### [address] Platelet mean volume (Bld) [Entitic vol] 9.0 fL Normal 6.6-10.1 [facility] Comment on above: Performed By: #### F ER, [id number], FE and TIBC, MG #### [facility] [address] Platelets (Bld) [#/Vol] 224 10*3/uL Normal 150-450 [facility] Comment on above: Performed By: #### F ER, [id number], FE and TIBC, MG #### [facility] [address] RBC (Bld) [#/Vol] 5.05 10*6/uL Normal 3.90-5.60 [facility] Comment on above: Performed By: #### F ER, [id number], FE and TIBC, MG #### [facility] [address] WBC (Bld) [#/Vol] 9.4 10*3/uL Normal 4.1-10.5 [facility] Comment on above: Performed By: #### F ER, [id number], FE and TIBC, MG #### [facility] [address] Eosinophils Auto (Bld) [#/Vo l]Ordered By: Jose Martin Sen on 11-08-2022 Eosinophils (Bld) [#/Vol] 0.1 10*3/uL 0.0-0.45 [facility] Eosinophils/100 WBC Auto (Bl d)Ordered By: Jose Martin Sen on 11-08-2022 Eosinophils/100 WBC (Bld) 0.9 % . [facility] Erythrocyte distribution wid th Auto (RBC) [Ratio]Ordered By: Jose Martin Sen on 11-08-2022 Erythrocyte distribution width (RBC) [Ratio] 13.7 % 12.0-14.8 [facility] Hematocrit Auto (Bld) [Volum e fraction]Ordered By: Jose Martin Sen on 11-08-2022 Hematocrit (Bld) [Volume fraction] 43.8 % 38.8-50.0 [facility] Hemoglobin [Mass/volume] in BloodOrdered By: Jose Martin Sen on 11-08-2022 Hemoglobin (Bld) [Mass/Vol] 15.4 g/dL 13.0-17.0 [facility] Leukocytes [#/volume] correc khadra for nucleated erythrocytes in Blood by Automated counOrdered By: Jose Martin Sen on 11-08-2022 WBC corrected for nucl RBC Auto (Bld) [#/Vol] 9.4 10*3/uL 4.1-10.5 [facility] Lymphocytes Auto (Bld) [#/Vo l]Ordered By: Jose Martin Sen on 11-08-2022 Lymphocytes (Bld) [#/Vol] 2.7 10*3/uL 1.00-4.8 [facility] Lymphocytes/100 WBC Auto (Bl d)Ordered By: Jose Martin Sen on 11-08-2022 Lymphocytes/100 WBC (Bld) 28.3 % . [facility] MCH Auto (RBC) [Entitic mass ]Ordered By: Jose Martin Sen on 11-08-2022 MCH (RBC) [Entitic mass] 30.5 pg 27.5-35.2 [facility] MCHC Auto (RBC) [Mass/Vol]Or dered By: Jose Martin Sen on 11-08-2022 MCHC (RBC) [Mass/Vol] 35.2 g/dL 32.5-35.6 [facility] MCV Auto (RBC) [Entitic vol] Ordered By: Jose Martin Sen on 11-08-2022 MCV (RBC) [Entitic vol] 86.7 fL 83.5-101 [facility] Monocytes Auto (Bld) [#/Vol] Ordered By: Jose Martin Sen on 11-08-2022 Monocytes (Bld) [#/Vol] 1.3 10*3/uL 0.0-0.8 [facility] Monocytes/100 WBC Auto (Bld) Ordered By: Jose Martin Sen on 11-08-2022 Monocytes/100 WBC (Bld) 13.4 % . [facility] Neutrophils Auto (Bld) [#/Vo l]Ordered By: Jose Martin Sen on 11-08-2022 Neutrophils (Bld) [#/Vol] 5.3 10*3/uL 1.8-7.7 [facility] Neutrophils/100 WBC Auto (Bl d)Ordered By: Jose Martin Sen on 11-08-2022 Neutrophils/100 WBC (Bld) 56.5 % . [facility] Nucleated erythrocytes [Pres ence] in Blood by Automated countOrdered By: Jose Martin Sen on 11-08-2022 Nucleated RBC Auto Ql (Bld) 0.1 /100{WBC} 0-0.5 [facility] Platelet mean volume Auto (B ld) [Entitic vol]Ordered By: Jose Martin Sen on 11-08-2022 Platelet mean volume (Bld) [Entitic vol] 9.0 fL 6.6-10.1 [facility] Platelets Auto (Bld) [#/Vol] Ordered By: Jose Martin Sen on 11-08-2022 Platelets (Bld) [#/Vol] 224 10*3/uL 150-450 [facility] RBC Auto (Bld) [#/Vol]Ordere d By: Jose Martin Sen on 11-08-2022 RBC (Bld) [#/Vol] 5.05 10*6/uL 3.90-5.60 [facility] WBC Auto (Bld) [#/Vol]Ordere d By: Jose Martin Sen on 11-08-2022 WBC (Bld) [#/Vol] 9.4 10*3/uL 4.1-10.5 [facility] Basic Metabolic Panelon 10-27 Anion gap [Moles/Vol] 10.7 mmol/L Normal 6.0-15.0 [facility] Comment on above: Performed By: #### F ER, [id number], FE and TIBC, MG #### [facility] [address] [place] [address] [place] Calcium [Mass/Vol] 9.4 mg/dL Normal 8.6-10.3 [facility] Comment on above: Performed By: #### F ER, [id number], FE and TIBC, MG #### [facility] [address] [place] [id number] [place] Chloride [Moles/Vol] 100 mmol/L Normal 98-107 [facility] Comment on above: Performed By: #### F ER, [id number], FE and TIBC, MG #### [facility] [address] CO2 [Moles/Vol] 28.8 mmol/L Normal 21.0-31.0 [facility] Comment on above: Performed By: #### F ER, [id number], FE and TIBC, MG #### [facility] [address] Creatinine [Mass/Vol] 1.13 mg/dL Normal 0.70-1.30 [facility] Comment on above: Performed By: #### F ER, [id number], FE and TIBC, MG #### [facility] [address] Creatinine Clr Calc Pharmacy 63.70 [facility] Comment on above: Result Comment: PERF ORMED BY: [place] [address] PATHOLOGIST ACCESS REP TERESA PATTERSON M.D. Performed By: #### F ER, [id number], FE and TIBC, MG #### [facility] [address] GFR/1.73 sq M.predicted MDRD (S/P/Bld) [Vol rate/Area] mL/min/{1.73_m2} [facility] Comment on above: Performed By: #### F ER, [id number], FE and TIBC, MG #### [facility] [address] Glucose [Mass/Vol] 105 mg/dL High 70-100 [facility] Comment on above: Result Comment: [place] om Glucose Reference Range is dependent on time and content of last meal. Glucose of more than 200 mg/dL in a nonstressed, ambulatory subject supports the diagnosis of Diabetes Mellitus. ADA recommended reference range Performed By: #### F ER, [id number], FE and TIBC, MG #### [facility] [address] Potassium [Moles/Vol] 3.5 mmol/L Normal 3.5-5.1 [facility] Comment on above: Performed By: #### F ER, [id number], FE and TIBC, MG #### [facility] [address] Sodium [Moles/Vol] 136 mmol/L Normal 136-145 [facility] Comment on above: Performed By: #### F ER, [id number], FE and TIBC, MG #### [facility] [address] Urea nitrogen [Mass/Vol] 28 mg/dL High 7-25 [facility] Comment on above: Performed By: #### F ER, [id number], FE and TIBC, MG #### [address] Bilirubin Test strip Ql (U)O rdered By: Jose Martin Sen on 11-07-2022 Bilirubin Ql (U) Negative Negative [facility] CT head/brain wo conon 11-07 CT head/brain wo con [facility] [place] [address] [place] [address] CT Scan Report Signed Patient: Viraj Doherty MR#: [id number] : 1955 Acct:[id number] Age/Sex: 67 / M ADM Date: 11/02/22 Loc: Room: [address] [place] [address] Type: ADM IN Attending Dr: Jose Martin Sen MD Copies to: Jose Martin Sen MD Ordering Provider: Jose Martin Sen MD Date of Service: 11/07/22 CT/CT head/brain wo con: change in mental status CT BRAIN WITHOUT CONTRAST: CLINICAL HISTORY: Mental status changes. COMPARISON: MRI 10/30/2022. TECHNIQUE: Contiguous axial unenhanced images were obtained through the brain. This CT exam was performed using one or more following dose reduction techniques: Automated exposure control, adj ustment of the mA and/or kV according to patient size, or use of iterative reconstruction technique. FINDINGS: There is no evidence of midline shift, intra or extra-axial fluid collection, hemorrhage or CT evidence of acute stroke. 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 This appears to be superimposed on cortical atrophy and chronic microvascular ischemic changes best seen by the prior MRI study. Posterior fossa appears unremarkable. Visualized intraorbital contents demonstrate no acute findings. Visualized paranasal sinuses are clear. The surrounding soft tissues are normal. 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 This appears to be superimposed on cortical atrophy and chronic microvascular ischemic changes best seen by the prior MRI study. Impression dictated by: Jose Martin Jha Jr., KatODiaz11/07/2022 3:24 PM Dictation Location: [place] [address] Transcribed By: [facility] 11/07/22 152 Dictated By: Jose Martin Jha Jr, DO 11/07/22 1521 Signed By: 11/07/22 1524 Normal [facility] Color Auto (U)Ordered By: Karen Sen on 11-07-2022 Color (U) Yellow Yellow [facility] Complete Blood Count Auto Di ffon 11-07-2022 Basophils (Bld) [#/Vol] 0.1 10*3/uL Normal 0.0-0.2 [facility] Comment on above: Result Comment: PERF ORMED BY: [place] [address] PATHOLOGIST ACCESS REP TERESA PATTERSON M.D. Performed By: #### F ER, [id number], FE and TIBC, MG #### [facility] [address] [place] [address] Basophils/100 WBC (Bld) 1.1 % Normal . [facility] Comment on above: Performed By: #### F ER, [id number], FE and TIBC, MG #### [facility] [address] Eosinophils (Bld) [#/Vol] 0.0 10*3/uL Normal 0.0-0.45 [facility] Comment on above: Performed By: #### F ER, [id number], FE and TIBC, MG #### [address] Eosinophils/100 WBC (Bld) 0.4 % Normal . [facility] Comment on above: Performed By: #### F ER, [id number], FE and TIBC, MG #### [address] Erythrocyte distribution width (RBC) [Ratio] 14.2 % Normal 12.0-14.8 [facility] Comment on above: Performed By: #### F ER, [id number], FE and TIBC, MG #### [address] Hematocrit (Bld) [Volume fraction] 45.3 % Normal 38.8-50.0 [facility] Comment on above: Performed By: #### F ER, [id number], FE and TIBC, MG #### [address] Hemoglobin (Bld) [Mass/Vol] 15.9 g/dL Normal 13.0-17.0 [facility] Comment on above: Performed By: #### F ER, [id number], FE and TIBC, MG #### [address] Lymphocytes (Bld) [#/Vol] 1.7 10*3/uL Normal 1.00-4.8 [facility] Comment on above: Performed By: #### F ER, [id number], FE and TIBC, MG #### [address] Lymphocytes/100 WBC (Bld) 21.8 % Normal . [facility] Comment on above: Performed By: #### F ER, [id number], FE and TIBC, MG #### [address] MCH (RBC) [Entitic mass] 30.6 pg Normal 27.5-35.2 [facility] Comment on above: Performed By: #### F ER, [id number], FE and TIBC, MG #### [address] MCV (RBC) [Entitic vol] 87.4 fL Normal 83.5-101 [facility] Comment on above: Performed By: #### F ER, [id number], FE and TIBC, MG #### [address] Mean Corpuscular HGB Conc 35.1 g/dL Normal 32.5-35.6 [facility] Comment on above: Performed By: #### F ER, [id number], FE and TIBC, MG #### [address] Monocytes (Bld) [#/Vol] 1.0 10*3/uL High 0.0-0.8 [facility] Comment on above: Performed By: #### F ER, [id number], FE and TIBC, MG #### [address] Monocytes/100 WBC (Bld) 12.9 % Normal . [facility] Comment on above: Performed By: #### F ER, [id number], FE and TIBC, MG #### [address] Neutrophils (Bld) [#/Vol] 4.9 10*3/uL Normal 1.8-7.7 [facility] Comment on above: Performed By: #### F ER, [id number], FE and TIBC, MG #### [address] Neutrophils/100 WBC (Bld) 63.8 % Normal . [facility] Comment on above: Performed By: #### F ER, [id number], FE and TIBC, MG #### [address] NRBC% 0.1 /100{WBC} Normal 0-0.5 [facility] Comment on above: Performed By: #### F ER, [id number], FE and TIBC, MG #### [facility] [address] Platelet mean volume (Bld) [Entitic vol] 8.5 fL Normal 6.6-10.1 [facility] Comment on above: Performed By: #### F ER, [id number], FE and TIBC, MG #### [facility] [address] Platelets (Bld) [#/Vol] 215 10*3/uL Normal 150-450 [facility] Comment on above: Performed By: #### F ER, [id number], FE and TIBC, MG #### [facility] [address] RBC (Bld) [#/Vol] 5.19 10*6/uL Normal 3.90-5.60 [facility] Comment on above: Performed By: #### F ER, [id number], FE and TIBC, MG #### [facility] [address] WBC (Bld) [#/Vol] 7.6 10*3/uL Normal 4.1-10.5 [facility] Comment on above: Performed By: #### F ER, [id number], FE and TIBC, MG #### [facility] [address] Ketones Auto test strip (U) [Mass/Vol]Ordered By: Jose Martin Sen on 11-07-2022 Ketones (U) [Mass/Vol] Negative Negative [facility] Nitrite Test strip Ql (U)Ord ered By: Jose Martin Sen on 11-07-2022 Nitrite Ql (U) Negative Negative [facility] Potassiumon 11-07-2022 Potassium [Moles/Vol] 3.8 mmol/L Normal 3.5-5.1 [facility] Comment on above: Result Comment: PERF ORMED BY: [place] [address] PATHOLOGIST ACCESS REP TERESA PATTERSON M.D. Performed By: #### F ER, [id number], FE and TIBC, MG #### [facility] [address] Protein Auto test strip (U) [Mass/Vol]Ordered By: Jose Martin Mckinley on 11-07-2022 Protein (U) [Mass/Vol] Negative Negative [facility] Specific gravity Auto test s trip (U) [Rel density]Ordered By: Jose Martin Mckinley on 11-07-2022 Specific gravity (U) [Rel density] 1.014 1.001-1.030 [facility] Urinalysison 11-07-2022 Appearance (U) Clear Normal Clear [facility] Comment on above: Order Comment: Comme nt add Comment add Performed By: #### F ER, [id number], FE and TIBC, MG #### [facility] [address] [place] [address] Bilirubin,Urine Negative Normal Negative [facility] Comment on above: Order Comment: Comme nt add Comment add Performed By: #### F ER, [id number], FE and TIBC, MG #### [facility] [address] Color (U) Yellow Normal Yellow [facility] Comment on above: Order Comment: Comme nt add Comment add Performed By: #### F ER, [id number], FE and TIBC, MG #### [facility] [address] Glucose Ql (U) Normal Normal Normal [facility] Comment on above: Order Comment: Comme nt add Comment add Performed By: #### F ER, [id number], FE and TIBC, MG #### [facility] [address] [place] [address] [place] Ketones Ql (U) Negative Normal Negative [facility] Comment on above: Order Comment: Comme nt add Comment add Performed By: #### F ER, [id number], FE and TIBC, MG #### [facility] [address] [place] [address] [place] Leukocyte esterase Test strip Ql (U) Negative Normal Negative [facility] Comment on above: Order Comment: Comme nt add Comment add Performed By: #### F ER, [id number], FE and TIBC, MG #### [address] Nitrite,Urine Negative Normal Negative [facility] Comment on above: Order Comment: Comme nt add Comment add Performed By: #### F ER, [id number], FE and TIBC, MG #### [address] Occult Blood,Urine Negative Normal Negative [facility] Comment on above: Order Comment: Comme nt add Comment add Result Comment: PERF ORMED BY: [place] [address] PATHOLOGIST ACCESS REP TERESA PATTERSON M.D. Performed By: #### F ER, [id number], FE and TIBC, MG #### [address] pH (U) 5.5 [pH] Normal 5.0-9.0 [facility] Comment on above: Order Comment: Comme nt add Comment add Performed By: #### F ER, [id number], FE and TIBC, MG #### [address] Protein,Urine Negative Normal Negative [facility] Comment on above: Order Comment: Comme nt add Comment add Performed By: #### F ER, [id number], FE and TIBC, MG #### [address] Specificy [place],Urine 1.014 Normal 1.001-1.030 [facility] Comment on above: Order Comment: Comme nt add Comment add Performed By: #### F ER, [id number], FE and TIBC, MG #### [address] Urobilinogen,Urine Normal Normal Normal [facility] Comment on above: Order Comment: Comme nt add Comment add Performed By: #### F ER, [id number], FE and TIBC, MG #### [facility] [address] Urine clarity by refractomet ry automatedOrdered By: Jose Martin Sen on 11-07-2022 Clarity Refractometry automated (U) Clear Clear [facility] Urine glucose measurement by automated test strip (mass/volume)Ordered By: Jose Martin Sen on 11-07-2022 Glucose Auto test strip (U) [Mass/Vol] Normal mg/dL Normal [facility] Urine hemoglobin detection b y automated test stripOrdered By: Jose Martin Sen on 11-07-2022 Hemoglobin Auto test strip Ql (U) Negative Negative [facility] Urine leukocyte esterase det ection by automated test stripOrdered By: Jose Martin Sen on 11-07-2022 Leukocyte esterase Auto test strip Ql (U) Negative Negative [facility] Urobilinogen Auto test strip (U) [Mass/Vol]Ordered By: Jose Martin Sen on 11-07-2022 Urobilinogen (U) [Mass/Vol] Normal mg/dL Normal [facility] pH Auto test strip (U)Ordere d By: Jose Martin Sen on 11-07-2022 pH (U) 5.5 [pH] 5.0-9.0 [facility] Basic Metabolic Panelon 10-27 Anion gap [Moles/Vol] 11.0 mmol/L Normal 6.0-15.0 [facility] Comment on above: Performed By: #### F ER, [id number], FE and TIBC, MG #### [facility] [address] [place] [address] [place] Calcium [Mass/Vol] 9.2 mg/dL Normal 8.6-10.3 [facility] Comment on above: Performed By: #### F ER, [id number], FE and TIBC, MG #### [facility] [address] [place] [address] [place] Chloride [Moles/Vol] 105 mmol/L Normal 98-107 [facility] Comment on above: Performed By: #### F ER, [id number], FE and TIBC, MG #### [facility] [address] CO2 [Moles/Vol] 24.3 mmol/L Normal 21.0-31.0 [facility] Comment on above: Performed By: #### F ER, [id number], FE and TIBC, MG #### [facility] [address] Creatinine [Mass/Vol] 1.14 mg/dL Normal 0.70-1.30 [facility] Comment on above: Performed By: #### F ER, [id number], FE and TIBC, MG #### [facility] [address] [place] [address] [place] Creatinine Clr Calc Pharmacy 63.15 [facility] Comment on above: Result Comment: PERF ORMED BY: [place] [address] PATHOLOGIST ACCESS REP TERESA PATTERSON M.D. Performed By: #### F ER, [id number], FE and TIBC, MG #### [facility] [address] [place] [address] [place] GFR/1.73 sq M.predicted MDRD (S/P/Bld) [Vol rate/Area] mL/min/{1.73_m2} [facility] Comment on above: Performed By: #### F ER, [id number], FE and TIBC, MG #### [facility] [address] Glucose [Mass/Vol] 104 mg/dL High 70-100 [facility] Comment on above: Result Comment: [place] Glucose Reference Range is dependent on time and content of last meal. Glucose of more than 200 mg/dL in a nonstressed, ambulatory subject supports the diagnosis of Diabetes Mellitus. ADA recommended reference range Performed By: #### F ER, [id number], FE and TIBC, MG #### [facility] [address] Potassium [Moles/Vol] 3.3 mmol/L Low 3.5-5.1 [facility] Comment on above: Performed By: #### F ER, [id number], FE and TIBC, MG #### [facility] [address] Sodium [Moles/Vol] 137 mmol/L Normal 136-145 [facility] Comment on above: Performed By: #### F ER, [id number], FE and TIBC, MG #### [facility] [address] Urea nitrogen [Mass/Vol] 35 mg/dL High 7-25 [facility] Comment on above: Performed By: #### F ER, [id number], FE and TIBC, MG #### [facility] [address] Basic Metabolic Panelon 09--2022 Anion gap [Moles/Vol] 11.0 mmol/L Normal 6.0-15.0 [facility] Comment on above: Performed By: #### B MP, CBC #### [address] Calcium [Mass/Vol] 9.3 mg/dL Normal 8.6-10.3 [facility] Comment on above: Performed By: #### B MP, CBC #### [address] Chloride [Moles/Vol] 105 mmol/L Normal 98-107 [facility] Comment on above: Performed By: #### B MP, CBC #### [address] CO2 [Moles/Vol] 23.1 mmol/L Normal 21.0-31.0 [facility] Comment on above: Performed By: #### B MP, CBC #### [facility] [address] Creatinine [Mass/Vol] 1.42 mg/dL High 0.70-1.30 [facility] Comment on above: Performed By: #### B MP, CBC #### [facility] [address] Creatinine Clr Calc Pharmacy 50.69 Normal [facility] Comment on above: Result Comment: PERF ORMED BY: [place] [address] PATHOLOGIST ACCESS REP TERESA PATTERSON M.D. Performed By: #### B MP, CBC #### [facility] [address] [place] [address] [place] GFR/1.73 sq M.predicted MDRD (S/P/Bld) [Vol rate/Area] 53.489 mL/min/{1.73_m2} Normal [facility] Comment on above: Performed By: #### B MP, CBC #### [address] Glucose [Mass/Vol] 100 mg/dL Normal 70-100 [facility] Comment on above: Result Comment: [facility] Glucose Reference Range is dependent on time and content of last meal. Glucose of more than 200 mg/dL in a nonstressed, ambulatory subject supports the diagnosis of Diabetes Mellitus. ADA recommended reference range Performed By: #### B MP, CBC #### [address] Potassium [Moles/Vol] 3.1 mmol/L Low 3.5-5.1 [facility] Comment on above: Performed By: #### B MP, CBC #### [place] [address] [place] Sodium [Moles/Vol] 136 mmol/L Normal 136-145 [facility] Comment on above: Performed By: #### B MP, CBC #### [facility] [address] [place] [address] [place] Urea nitrogen [Mass/Vol] 37 mg/dL High 7-25 [facility] Comment on above: Performed By: #### B MP, CBC #### [address] Basic Metabolic Panelon 09-0 -2022 Anion gap [Moles/Vol] 12.5 mmol/L Normal 6.0-15.0 [facility] Comment on above: Performed By: #### F ER, [id number], FE and TIBC, MG #### [facility] [address] Calcium [Mass/Vol] 9.3 mg/dL Normal 8.6-10.3 [facility] Comment on above: Performed By: #### F ER, [id number], FE and TIBC, MG #### [facility] [address] [place] [address] [place] Chloride [Moles/Vol] 104 mmol/L Normal 98-107 [facility] Comment on above: Performed By: #### F ER, [id number], FE and TIBC, MG #### [facility] [address] CO2 [Moles/Vol] 23.7 mmol/L Normal 21.0-31.0 [facility] Comment on above: Performed By: #### F ER, [id number], FE and TIBC, MG #### [facility] [address] Creatinine [Mass/Vol] 1.26 mg/dL Normal 0.70-1.30 [facility] Comment on above: Performed By: #### F ER, [id number], FE and TIBC, MG #### [facility] [address] Creatinine Clr Calc Pharmacy 58.54 [facility] Comment on above: Performed By: #### F ER, [id number], FE and TIBC, MG #### [facility] [address] GFR/1.73 sq M.predicted MDRD (S/P/Bld) [Vol rate/Area] mL/min/{1.73_m2} [facility] Comment on above: Performed By: #### F ER, [id number], FE and TIBC, MG #### [facility] [address] Glucose [Mass/Vol] 102 mg/dL High 70-100 [facility] Comment on above: Result Comment: [place] Glucose Reference Range is dependent on time and content of last meal. Glucose of more than 200 mg/dL in a nonstressed, ambulatory subject supports the diagnosis of Diabetes Mellitus. ADA recommended reference range Performed By: #### F ER, [id number], FE and TIBC, MG #### [facility] [address] Potassium [Moles/Vol] 3.2 mmol/L Low 3.5-5.1 [facility] Comment on above: Performed By: #### F ER, [id number], FE and TIBC, MG #### [facility] [address] Sodium [Moles/Vol] 137 mmol/L Normal 136-145 [facility] Comment on above: Performed By: #### F ER, [id number], FE and TIBC, MG #### [facility] [address] Urea nitrogen [Mass/Vol] 29 mg/dL High 7-25 [facility] Comment on above: Performed By: #### F ER, [id number], FE and TIBC, MG #### [facility] [address] Magnesiumon 11-04-2022 Magnesium [Mass/Vol] 2.0 mg/dL Normal 1.9-2.7 [facility] Comment on above: Result Comment: PERF ORMED BY: [place] [address] PATHOLOGIST ACCESS REP TERESA PATTERSON M.D. Performed By: #### F ER, [id number], FE and TIBC, MG #### [facility] [address] [place] [address] [place] Magnesium [Mass/volume] in S shani or PlasmaOrdered By: Sara Osorio on 11-04-2022 Magnesium [Mass/Vol] 2.0 mg/dL 1.9-2.7 [facility] Alanine aminotransferase [En zymatic activity/volume] in Serum or PlasmaOrdered By: Janice Altamirano on 11-03-2022 ALT [Catalytic activity/Vol] 17 U/L 7-52 [facility] Albumin [Mass/volume] in Ser um or Plasma by Bromocresol green (BCG) dye binding methoOrdered By: Janice Altamirano on 11-03-2022 Albumin BCG dye [Mass/Vol] 4.5 g/dL 3.5-5.7 [facility] Alkaline phosphatase [Enzyma tic activity/volume] in Serum or PlasmaOrdered By: Janice Altamirano on 11-03-2022 ALP [Catalytic activity/Vol] 64 U/L 34-104 [facility] Anisocytosis LM Ql (Bld)Orde red By: Janice Altamirano on 11-03-2022 Anisocytosis Ql (Bld) Slight [facility] Aspartate aminotransferase [ Enzymatic activity/volume] in Serum or PlasmaOrdered By: Janice Altamirano on 11-03-2022 AST [Catalytic activity/Vol] 19 U/L 13-39 [facility] Bilirubin.total [Mass/volume ] in Serum or PlasmaOrdered By: Janice Altamirano on 11-03-2022 Bilirubin [Mass/Vol] 1.6 mg/dL 0.3-1.0 [facility] Comment on above: Samples from patient s who have taken Naproxen have shown spurious elevation in Total Bilirubin levels. A metabolite of Naproxen, O-desmethylnaproxen, has been shown to interfere with the Jendrjacquelynik-Grof method for measuring Total Bilirubin. Comprehensive Metabolic Pane nitza 11-03-2022 Albumin [Mass/Vol] 4.5 g/dL Normal 3.5-5.7 [facility] Comment on above: Performed By: #### S CAN CBC, PAB, CMP #### [facility] [address] [place] [address] [place] Albumin/Globulin [Mass ratio] 1.5 {ratio} Normal [facility] Comment on above: Performed By: #### S CAN CBC, PAB, CMP #### [facility] [address] [place] [id number] [place] ALP [Catalytic activity/Vol] 64 U/L Normal 34-104 [facility] Comment on above: Performed By: #### S CAN CBC, PAB, CMP #### [facility] [address] [place] [id number] [facility] ALT [Catalytic activity/Vol] 17 U/L Normal 7-52 [facility] Comment on above: Performed By: #### S CAN CBC, PAB, CMP #### [facility] [address] Anion gap [Moles/Vol] 10.1 mmol/L Normal 6.0-15.0 [facility] Comment on above: Performed By: #### S CAN CBC, PAB, CMP #### [facility] [address] AST [Catalytic activity/Vol] 19 U/L Normal 13-39 [facility] Comment on above: Performed By: #### S CAN CBC, PAB, CMP #### [address] Bilirubin [Mass/Vol] 1.6 mg/dL High 0.3-1.0 [facility] Comment on above: Result Comment: Samp les from patients who have taken Naproxen have shown spurious elevation in Total Bilirubin levels. A metabolite of Naproxen, O-desmethylnaproxen, has been shown to interfere with the Jendrassik-Grof method for measuring Total Bilirubin. Performed By: #### S CAN CBC, PAB, CMP #### [facility] [address] Calcium [Mass/Vol] 9.6 mg/dL Normal 8.6-10.3 [facility] Comment on above: Performed By: #### S CAN CBC, PAB, CMP #### [facility] [address] [place] [id number] [place] Chloride [Moles/Vol] 102 mmol/L Normal 98-107 [facility] Comment on above: Performed By: #### S CAN CBC, PAB, CMP #### [facility] [address] [place] [id number] [place] CO2 [Moles/Vol] 28.3 mmol/L Normal 21.0-31.0 [facility] Comment on above: Performed By: #### S CAN CBC, PAB, CMP #### [facility] [address] Creatinine [Mass/Vol] 1.21 mg/dL Normal 0.70-1.30 [facility] Comment on above: Performed By: #### S CAN CBC, PAB, CMP #### [facility] [address] [place] [address] [place] Creatinine Clr Calc Pharmacy 60.96 [facility] Comment on above: Performed By: #### S CAN CBC, PAB, CMP #### [facility] [address] [place] [address] [place] GFR/1.73 sq M.predicted MDRD (S/P/Bld) [Vol rate/Area] mL/min/{1.73_m2} [facility] Comment on above: Performed By: #### S CAN CBC, PAB, CMP #### [facility] [address] Globulin (S) [Mass/Vol] 3.1 g/dL [facility] Comment on above: Performed By: #### S CAN CBC, PAB, CMP #### [address] Glucose [Mass/Vol] 95 mg/dL Normal 70-100 [facility] Comment on above: Result Comment: [facility] Glucose Reference Range is dependent on time and content of last meal. Glucose of more than 200 mg/dL in a nonstressed, ambulatory subject supports the diagnosis of Diabetes Mellitus. ADA recommended reference range Performed By: #### S CAN CBC, PAB, CMP #### [facility] [address] Potassium [Moles/Vol] 3.4 mmol/L Low 3.5-5.1 [facility] Comment on above: Performed By: #### S CAN CBC, PAB, CMP #### [facility] [address] Protein [Mass/Vol] 7.6 g/dL Normal 6.4-8.9 [facility] Comment on above: Performed By: #### S CAN CBC, PAB, CMP #### [facility] [address] Sodium [Moles/Vol] 137 mmol/L Normal 136-145 [facility] Comment on above: Performed By: #### S CAN CBC, PAB, CMP #### [facility] [address] [place] [id number] [facility] Urea nitrogen [Mass/Vol] 23 mg/dL Normal 7-25 [facility] Comment on above: Performed By: #### S CAN CBC, PAB, CMP #### [facility] [address] [place] [id number] [facility] Globulin Calc (S) [Mass/Vol] Ordered By: Janice Altamirano on 11-03-2022 Globulin (S) [Mass/Vol] 3.1 g/dL [facility] Microcytes LM Ql (Bld)Ordere d By: Janice Altamirano on 11-03-2022 Microcytes Ql (Bld) Slight [facility] Platelet adequacy [Presence] in Blood by Light microscopyOrdered By: Janice Altamirano on 11-03-2022 Platelets LM Ql (Bld) Normal Normal [facility] Platelet morphology finding [Identifier] in BloodOrdered By: Janice Altamirano on 11-03-2022 Platelet morphology finding Nom (Bld) Normal Normal [facility] Potassiumon 11-03-2022 Potassium [Moles/Vol] 3.4 mmol/L Low 3.5-5.1 [facility] Comment on above: Result Comment: PERF ORMED BY: [address] [place] [address] PATHOLOGIST ACCESS REP TERESA PATTERSON M.D. Performed By: #### K #### [facility] [address] [place] [id number] [place] Prealbuminon 11-03-2022 Prealbumin [Mass/Vol] 28.1 mg/dL Normal 17.0-34.0 [facility] Comment on above: Result Comment: PERF ORMED BY: [address] [place] [address] PATHOLOGIST ACCESS REP TERESA PATTERSON M.D. Performed By: #### S CAN CBC, PAB, CMP #### [facility] [address] Prealbumin [Mass/volume] in Serum or PlasmaOrdered By: Janice Altamirano on 11-03-2022 Prealbumin [Mass/Vol] 28.1 mg/dL 17.0-34.0 [facility] Protein [Mass/volume] in Ser um or PlasmaOrdered By: Janice Altamirano on 11-03-2022 Protein [Mass/Vol] 7.6 g/dL 6.4-8.9 [facility] RBC morphologyOrdered By: Ruslan Altamirano on 11-03-2022 RBC morphology finding Nom (Bld) N/A [facility] Scan and CBCon 11-03-2022 Anisocytosis Ql (Bld) Slight Normal [facility] Comment on above: Performed By: #### B MP, CBC #### [place] [address] [place] Basophils (Bld) [#/Vol] 0.1 10*3/uL Normal 0.0-0.2 [facility] Comment on above: Performed By: #### B MP, CBC #### [place] [address] [place] Basophils/100 WBC (Bld) 0.8 % Normal . [facility] Comment on above: Performed By: #### B MP, CBC #### [place] [address] [place] Eosinophils (Bld) [#/Vol] 0.1 10*3/uL Normal 0.0-0.45 [facility] Comment on above: Performed By: #### B MP, CBC #### [place] [address] [place] Eosinophils/100 WBC (Bld) 0.8 % Normal . [facility] Comment on above: Performed By: #### B MP, CBC #### [address] Erythrocyte distribution width (RBC) [Ratio] 14.3 % Normal 12.0-14.8 [facility] Comment on above: Performed By: #### B MP, CBC #### [facility] [address] Hematocrit (Bld) [Volume fraction] 49.6 % Normal 38.8-50.0 [facility] Comment on above: Performed By: #### B MP, CBC #### [address] Hemoglobin (Bld) [Mass/Vol] 17.4 g/dL High 13.0-17.0 [facility] Comment on above: Performed By: #### B MP, CBC #### [address] Lymphocytes (Bld) [#/Vol] 3.0 10*3/uL Normal 1.00-4.8 [facility] Comment on above: Performed By: #### B MP, CBC #### [address] Lymphocytes/100 WBC (Bld) 21.6 % Normal . [facility] Comment on above: Performed By: #### B MP, CBC #### [address] MCH (RBC) [Entitic mass] 30.8 pg Normal 27.5-35.2 [facility] Comment on above: Performed By: #### B MP, CBC #### [address] MCV (RBC) [Entitic vol] 87.9 fL Normal 83.5-101 [facility] Comment on above: Performed By: #### B MP, CBC #### [address] Mean Corpuscular HGB Conc 35.0 g/dL Normal 32.5-35.6 [facility] Comment on above: Performed By: #### B MP, CBC #### [address] Microcytosis Slight Normal [facility] Comment on above: Performed By: #### B MP, CBC #### [facility] [address] Monocytes (Bld) [#/Vol] 1.7 10*3/uL High 0.0-0.8 [facility] Comment on above: Performed By: #### B MP, CBC #### [facility] [address] Monocytes/100 WBC (Bld) 12.2 % Normal . [facility] Comment on above: Performed By: #### B MP, CBC #### [address] Neutrophils (Bld) [#/Vol] 8.9 10*3/uL High 1.8-7.7 [facility] Comment on above: Performed By: #### B MP, CBC #### [address] Neutrophils/100 WBC (Bld) 64.6 % Normal . [facility] Comment on above: Performed By: #### B MP, CBC #### [address] NRBC% 0.0 /100{WBC} Normal 0-0.5 [facility] Comment on above: Performed By: #### B MP, CBC #### [address] Platelet Estimate Normal Normal Normal [facility] Comment on above: Performed By: #### B MP, CBC #### [address] Platelet mean volume (Bld) [Entitic vol] 8.7 fL Normal 6.6-10.1 [facility] Comment on above: Performed By: #### B MP, CBC #### [address] Platelet Morphology Normal Normal Normal [facility] Comment on above: Result Comment: PERF ORMED BY: [place] [address] PATHOLOGIST ACCESS REP TERESA PATTERSON M.D. Performed By: #### B MP, CBC #### [facility] [address] Platelets (Bld) [#/Vol] 191 10*3/uL Normal 150-450 [facility] Comment on above: Performed By: #### B MP, CBC #### [address] RBC (Bld) [#/Vol] 5.65 10*6/uL High 3.90-5.60 [facility] Comment on above: Performed By: #### B MP, CBC #### [facility] [address] WBC (Bld) [#/Vol] 13.7 10*3/uL High 4.1-10.5 [facility] Comment on above: Performed By: #### B MP, CBC #### [address] Serum or plasma albumin/glob ulin mass ratioOrdered By: Janice Altamirano on 11-03-2022 Albumin/Globulin [Mass ratio] 1.5 {ratio} [facility] Stool Cultureon 11-03-2022 Stool culture Comment add to colle cted stool sample Negative for Shiga Toxin 1 Negative for Shiga Toxin 2 -- A negative Shiga Toxin result may occur if the antigen level in the specimen is below the detection limit of the assay. Stool culture results No Salmonella, Shigella, Campy or E. coli 0157:H7 Isolated PERFORMED BY: [place] [address] PATHOLOGIST ACCESS REP TERESA PATTERSON M.D. [facility] Comment on above: Performed By: #### C USTOOL #### [address] Stool bacteria identificatio n by cultureOrdered By: Sara Osorio on 11-03-2022 Bacteria identified Cx Nom (Stl) [facility] Basic Metabolic Panelon Anion gap [Moles/Vol] 13.3 mmol/L Normal 6.0-15.0 [facility] Comment on above: Performed By: #### F ER, [id number], FE and TIBC, MG #### [facility] [address] Calcium [Mass/Vol] 9.5 mg/dL Normal 8.6-10.3 [facility] Comment on above: Performed By: #### F ER, [id number], FE and TIBC, MG #### [facility] [address] Chloride [Moles/Vol] 103 mmol/L Normal 98-107 [facility] Comment on above: Performed By: #### F ER, [id number], FE and TIBC, MG #### [facility] [address] CO2 [Moles/Vol] 24.9 mmol/L Normal 21.0-31.0 [facility] Comment on above: Performed By: #### F ER, [id number], FE and TIBC, MG #### [facility] [address] Creatinine [Mass/Vol] 1.10 mg/dL Normal 0.70-1.30 [facility] Comment on above: Performed By: #### F ER, [id number], FE and TIBC, MG #### [facility] [address] Creatinine Clr Calc Pharmacy 67.50 Normal [facility] Comment on above: Result Comment: PERF ORMED BY: [place] [address] PATHOLOGIST ACCESS REP TERESA PATTERSON M.D. Performed By: #### F ER, [id number], FE and TIBC, MG #### [facility] [address] GFR/1.73 sq M.predicted MDRD (S/P/Bld) [Vol rate/Area] mL/min/{1.73_m2} Normal [facility] Comment on above: Performed By: #### F ER, [id number], FE and TIBC, MG #### [facility] [address] Glucose [Mass/Vol] 114 mg/dL High 70-100 [facility] Comment on above: Result Comment: [facility] Glucose Reference Range is dependent on time and content of last meal. Glucose of more than 200 mg/dL in a nonstressed, ambulatory subject supports the diagnosis of Diabetes Mellitus. ADA recommended reference range Performed By: #### F ER, [id number], FE and TIBC, MG #### [facility] [address] Potassium [Moles/Vol] 3.2 mmol/L Low 3.5-5.1 [facility] Comment on above: Performed By: #### F ER, [id number], FE and TIBC, MG #### [facility] [address] [place] [address] [place] Sodium [Moles/Vol] 138 mmol/L Normal 136-145 [facility] Comment on above: Performed By: #### F ER, [id number], FE and TIBC, MG #### [facility] [address] [place] [address] [place] Urea nitrogen [Mass/Vol] 20 mg/dL Normal 7-25 [facility] Comment on above: Performed By: #### F ER, [id number], FE and TIBC, MG #### [facility] [address] [place] [address] [place] Basophils Auto (Bld) [#/Vol] Ordered By: John Garcia on 11-02-2022 Basophils (Bld) [#/Vol] 0.1 10*3/uL 0.0-0.2 [facility] Basophils/100 WBC Auto (Bld) Ordered By: John Garcia on 11-02-2022 Basophils/100 WBC (Bld) 0.8 % . [facility] Calcium [Mass/volume] in Ser um or PlasmaOrdered By: John Tioga on 11-02-2022 Calcium [Mass/Vol] 9.5 mg/dL 8.6-10.3 [facility] Carbon dioxide, total [Moles /volume] in Serum or PlasmaOrdered By: [facility] on 11-02-2022 CO2 [Moles/Vol] 24.9 mmol/L 21.0-31.0 [facility] Chloride [Moles/volume] in S shani or PlasmaOrdered By: [facility] on 11-02-2022 Chloride [Moles/Vol] 103 mmol/L 98-107 [facility] Complete Blood Count Auto Di ffon 11-02-2022 Basophils (Bld) [#/Vol] 0.1 10*3/uL Normal 0.0-0.2 [facility] Comment on above: Result Comment: PERF ORMED BY: [place] [address] PATHOLOGIST ACCESS REP TERESA PATTERSON M.D. Performed By: #### F ER, [id number], FE and TIBC, MG #### [facility] [address] [place] [address] Basophils/100 WBC (Bld) 0.8 % Normal . [facility] Comment on above: Performed By: #### F ER, [id number], FE and TIBC, MG #### [facility] [address] [place] [address] Eosinophils (Bld) [#/Vol] 0.0 10*3/uL Normal 0.0-0.45 [facility] Comment on above: Performed By: #### F ER, [id number], FE and TIBC, MG #### [facility] [address] [place] [address] [place] Eosinophils/100 WBC (Bld) 0.1 % Normal . [facility] Comment on above: Performed By: #### F ER, [id number], FE and TIBC, MG #### [place] [address] Erythrocyte distribution width (RBC) [Ratio] 14.5 % Normal 12.0-14.8 [facility] Comment on above: Performed By: #### F ER, [id number], FE and TIBC, MG #### [address] Hematocrit (Bld) [Volume fraction] 47.6 % Normal 38.8-50.0 [facility] Comment on above: Performed By: #### F ER, [id number], FE and TIBC, MG #### [address] Hemoglobin (Bld) [Mass/Vol] 16.8 g/dL Normal 13.0-17.0 [facility] Comment on above: Performed By: #### F ER, [id number], FE and TIBC, MG #### [address] Lymphocytes (Bld) [#/Vol] 2.6 10*3/uL Normal 1.00-4.8 [facility] Comment on above: Performed By: #### F ER, [id number], FE and TIBC, MG #### [address] Lymphocytes/100 WBC (Bld) 18.5 % Normal . [facility] Comment on above: Performed By: #### F ER, [id number], FE and TIBC, MG #### [address] MCH (RBC) [Entitic mass] 30.8 pg Normal 27.5-35.2 [facility] Comment on above: Performed By: #### F ER, [id number], FE and TIBC, MG #### [address] MCV (RBC) [Entitic vol] 86.9 fL Normal 83.5-101 [facility] Comment on above: Performed By: #### F ER, [id number], FE and TIBC, MG #### [address] Mean Corpuscular HGB Conc 35.4 g/dL Normal 32.5-35.6 [facility] Comment on above: Performed By: #### F ER, [id number], FE and TIBC, MG #### [address] Monocytes (Bld) [#/Vol] 1.3 10*3/uL High 0.0-0.8 [facility] Comment on above: Performed By: #### F ER, [id number], FE and TIBC, MG #### [address] Monocytes/100 WBC (Bld) 9.2 % Normal . [facility] Comment on above: Performed By: #### F ER, [id number], FE and TIBC, MG #### [address] Neutrophils (Bld) [#/Vol] 10.2 10*3/uL High 1.8-7.7 [facility] Comment on above: Performed By: #### F ER, [id number], FE and TIBC, MG #### [address] Neutrophils/100 WBC (Bld) 71.4 % Normal . [facility] Comment on above: Performed By: #### F ER, [id number], FE and TIBC, MG #### [address] NRBC% 0.2 /100{WBC} Normal 0-0.5 [facility] Comment on above: Performed By: #### F ER, [id number], FE and TIBC, MG #### [address] Platelet mean volume (Bld) [Entitic vol] 8.7 fL Normal 6.6-10.1 [facility] Comment on above: Performed By: #### F ER, [id number], FE and TIBC, MG #### [facility] [address] Platelets (Bld) [#/Vol] 203 10*3/uL Normal 150-450 [facility] Comment on above: Performed By: #### F ER, [id number], FE and TIBC, MG #### [facility] [address] RBC (Bld) [#/Vol] 5.47 10*6/uL Normal 3.90-5.60 [facility] Comment on above: Performed By: #### F ER, [id number], FE and TIBC, MG #### [facility] [address] WBC (Bld) [#/Vol] 14.3 10*3/uL High 4.1-10.5 [facility] Comment on above: Performed By: #### F ER, [id number], FE and TIBC, MG #### [facility] [address] Creatinine [Mass/volume] in Serum or PlasmaOrdered By: John Tioga on 11-02-2022 Creatinine [Mass/Vol] 1.10 mg/dL 0.70-1.30 [facility] Eosinophils Auto (Bld) [#/Vo l]Ordered By: [facility] on 11-02-2022 Eosinophils (Bld) [#/Vol] 0.0 10*3/uL 0.0-0.45 [facility] Eosinophils/100 WBC Auto (Bl d)Ordered By: [facility] on 11-02-2022 Eosinophils/100 WBC (Bld) 0.1 % . [facility] Erythrocyte distribution wid th Auto (RBC) [Ratio]Ordered By: John Tioga on 11-02-2022 Erythrocyte distribution width (RBC) [Ratio] 14.5 % 12.0-14.8 [facility] Glucose [Mass/volume] in Ser um or PlasmaOrdered By: John RamirezGarcia on 11-02-2022 Glucose [Mass/Vol] 114 mg/dL 70-100 [facility] Comment on above: ADA recommended refe rence rangeRandom Glucose Reference Range is dependent on time and content of last meal. Glucose of more than 200 mg/dL in a nonstressed, ambulatory subject supports the diagnosis of Diabetes Mellitus. Hematocrit Auto (Bld) [Volum e fraction]Ordered By: John Garcia on 11-02-2022 Hematocrit (Bld) [Volume fraction] 47.6 % 38.8-50.0 [facility] Hemoglobin [Mass/volume] in BloodOrdered By: John Garcia on 11-02-2022 Hemoglobin (Bld) [Mass/Vol] 16.8 g/dL 13.0-17.0 [facility] Leukocytes [#/volume] correc khadra for nucleated erythrocytes in Blood by Automated counOrdered By: John Garcia on 11-02-2022 WBC corrected for nucl RBC Auto (Bld) [#/Vol] 14.3 10*3/uL 4.1-10.5 [facility] Lymphocytes Auto (Bld) [#/Vo l]Ordered By: John RamirezGarcia on 11-02-2022 Lymphocytes (Bld) [#/Vol] 2.6 10*3/uL 1.00-4.8 [facility] Lymphocytes/100 WBC Auto (Bl d)Ordered By: John RamirezGarcia on 11-02-2022 Lymphocytes/100 WBC (Bld) 18.5 % . [facility] MCH Auto (RBC) [Entitic mass ]Ordered By: John Garcia on 11-02-2022 MCH (RBC) [Entitic mass] 30.8 pg 27.5-35.2 [facility] MCHC Auto (RBC) [Mass/Vol]Or dered By: John RamirezGarcia on 11-02-2022 MCHC (RBC) [Mass/Vol] 35.4 g/dL 32.5-35.6 [facility] MCV Auto (RBC) [Entitic vol] Ordered By: John RamirezGarcia on 11-02-2022 MCV (RBC) [Entitic vol] 86.9 fL 83.5-101 [facility] Monocytes Auto (Bld) [#/Vol] Ordered By: John Garcia on 11-02-2022 Monocytes (Bld) [#/Vol] 1.3 10*3/uL 0.0-0.8 [facility] Monocytes/100 WBC Auto (Bld) Ordered By: John Garcia on 11-02-2022 Monocytes/100 WBC (Bld) 9.2 % . [facility] Neutrophils Auto (Bld) [#/Vo l]Ordered By: John RamirezGarcia on 11-02-2022 Neutrophils (Bld) [#/Vol] 10.2 10*3/uL 1.8-7.7 [facility] Neutrophils/100 WBC Auto (Bl d)Ordered By: John RamirezGarcia on 11-02-2022 Neutrophils/100 WBC (Bld) 71.4 % . [facility] No Panel InformationOrdered By: John Garcia on 11-02-2022 Estimated GFR (CKD-EPI) > 60.0 mL/Min [facility] Creatinine Clearance (Chem 67.50 [facility] Nucleated erythrocytes [Pres ence] in Blood by Automated countOrdered By: John Garcia on 11-02-2022 Nucleated RBC Auto Ql (Bld) 0.2 /100{WBC} 0-0.5 [facility] Platelet mean volume Auto (B ld) [Entitic vol]Ordered By: John Garcia on 11-02-2022 Platelet mean volume (Bld) [Entitic vol] 8.7 fL 6.6-10.1 [facility] Platelets Auto (Bld) [#/Vol] Ordered By: John Garcia on 11-02-2022 Platelets (Bld) [#/Vol] 203 10*3/uL 150-450 [facility] Potassium [Moles/volume] in Serum or PlasmaOrdered By: John Garcia on 11-02-2022 Potassium [Moles/Vol] 3.2 mmol/L 3.5-5.1 [facility] RBC Auto (Bld) [#/Vol]Ordere d By: John Garcia on 11-02-2022 RBC (Bld) [#/Vol] 5.47 10*6/uL 3.90-5.60 [facility] Serum or plasma anion gap de terminationOrdered By: John Garcia on 11-02-2022 Anion gap [Moles/Vol] 13.3 mmol/L 6.0-15.0 [facility] Sodium [Moles/volume] in Ser um or PlasmaOrdered By: John Tioga on 11-02-2022 Sodium [Moles/Vol] 138 mmol/L 136-145 [facility] Urea nitrogen [Mass/volume] in Serum or PlasmaOrdered By: John RamirezGarcia on 11-02-2022 Urea nitrogen [Mass/Vol] 20 mg/dL 7-25 [facility] WBC Auto (Bld) [#/Vol]Ordere d By: John Tioga on 11-02-2022 WBC (Bld) [#/Vol] 14.3 10*3/uL 4.1-10.5 [facility] Basic Metabolic Panelon Anion gap [Moles/Vol] 13.6 mmol/L Normal 6.0-15.0 [facility] Comment on above: Performed By: #### B MP, CBC #### [facility] [address] Calcium [Mass/Vol] 9.5 mg/dL Normal 8.6-10.3 [facility] Comment on above: Performed By: #### B MP, CBC #### [facility] [address] Chloride [Moles/Vol] 105 mmol/L Normal 98-107 [facility] Comment on above: Performed By: #### B MP, CBC #### [facility] [address] [place] [id number] [place] CO2 [Moles/Vol] 25.6 mmol/L Normal 21.0-31.0 [facility] Comment on above: Performed By: #### B MP, CBC #### [facility] [address] [place] [id number] [place] Creatinine [Mass/Vol] 1.03 mg/dL Normal 0.70-1.30 [facility] Comment on above: Performed By: #### B MP, CBC #### [facility] [address] [place] [id number] [place] Creatinine Clr Calc Pharmacy 72.09 [facility] Comment on above: Result Comment: PERF ORMED BY: [place] [address] PATHOLOGIST ACCESS REP TERESA PATTERSON M.D. Performed By: #### B MP, CBC #### [place] [address] [place] GFR/1.73 sq M.predicted MDRD (S/P/Bld) [Vol rate/Area] mL/min/{1.73_m2} [facility] Comment on above: Performed By: #### B MP, CBC #### [address] Glucose [Mass/Vol] 108 mg/dL High 70-100 [facility] Comment on above: Result Comment: [place] Glucose Reference Range is dependent on time and content of last meal. Glucose of more than 200 mg/dL in a nonstressed, ambulatory subject supports the diagnosis of Diabetes Mellitus. ADA recommended reference range Performed By: #### B MP, CBC #### [address] Potassium [Moles/Vol] 3.2 mmol/L Low 3.5-5.1 [facility] Comment on above: Performed By: #### B MP, CBC #### [address] Sodium [Moles/Vol] 141 mmol/L Normal 136-145 [facility] Comment on above: Performed By: #### B MP, CBC #### [place] [address] [place] Urea nitrogen [Mass/Vol] 17 mg/dL Normal 7-25 [facility] Comment on above: Performed By: #### B MP, CBC #### [place] [address] [place] Complete Blood Count Auto Di ffon 11-01-2022 Basophils (Bld) [#/Vol] 0.1 10*3/uL Normal 0.0-0.2 [facility] Comment on above: Result Comment: PERF ORMED BY: [place] [address] PATHOLOGIST ACCESS REP TERESA PATTERSON M.D. Performed By: #### B MP, CBC #### [address] Basophils/100 WBC (Bld) 0.7 % Normal . [facility] Comment on above: Performed By: #### B MP, CBC #### [facility] [address] Eosinophils (Bld) [#/Vol] 0.0 10*3/uL Normal 0.0-0.45 [facility] Comment on above: Performed By: #### B MP, CBC #### [address] Eosinophils/100 WBC (Bld) 0.3 % Normal . [facility] Comment on above: Performed By: #### B MP, CBC #### [address] Erythrocyte distribution width (RBC) [Ratio] 14.0 % Normal 12.0-14.8 [facility] Comment on above: Performed By: #### B MP, CBC #### [address] Hematocrit (Bld) [Volume fraction] 48.2 % Normal 38.8-50.0 [facility] Comment on above: Performed By: #### B MP, CBC #### [address] Hemoglobin (Bld) [Mass/Vol] 16.8 g/dL Normal 13.0-17.0 [facility] Comment on above: Performed By: #### B MP, CBC #### [address] Lymphocytes (Bld) [#/Vol] 3.1 10*3/uL Normal 1.00-4.8 [facility] Comment on above: Performed By: #### B MP, CBC #### [address] Lymphocytes/100 WBC (Bld) 23.0 % Normal . [facility] Comment on above: Performed By: #### B MP, CBC #### [address] MCH (RBC) [Entitic mass] 30.6 pg Normal 27.5-35.2 [facility] Comment on above: Performed By: #### B MP, CBC #### [address] MCV (RBC) [Entitic vol] 87.8 fL Normal 83.5-101 [facility] Comment on above: Performed By: #### B MP, CBC #### [address] Mean Corpuscular HGB Conc 34.8 g/dL Normal 32.5-35.6 [facility] Comment on above: Performed By: #### B MP, CBC #### [address] Monocytes (Bld) [#/Vol] 1.0 10*3/uL High 0.0-0.8 [facility] Comment on above: Performed By: #### B MP, CBC #### [address] Monocytes/100 WBC (Bld) 7.7 % Normal . [facility] Comment on above: Performed By: #### B MP, CBC #### [address] Neutrophils (Bld) [#/Vol] 9.2 10*3/uL High 1.8-7.7 [facility] Comment on above: Performed By: #### B MP, CBC #### [address] Neutrophils/100 WBC (Bld) 68.3 % Normal . [facility] Comment on above: Performed By: #### B MP, CBC #### [place] [address] [place] NRBC% 0.6 /100{WBC} High 0-0.5 [facility] Comment on above: Performed By: #### B MP, CBC #### [address] Platelet mean volume (Bld) [Entitic vol] 9.0 fL Normal 6.6-10.1 [facility] Comment on above: Performed By: #### B MP, CBC #### [address] Platelets (Bld) [#/Vol] 206 10*3/uL Normal 150-450 [facility] Comment on above: Performed By: #### B MP, CBC #### [address] RBC (Bld) [#/Vol] 5.48 10*6/uL Normal 3.90-5.60 [facility] Comment on above: Performed By: #### B MP, CBC #### [address] WBC (Bld) [#/Vol] 13.5 10*3/uL High 4.1-10.5 [facility] Comment on above: Performed By: #### B MP, CBC #### [address] A1C with Estimated Average G [facility] 10-31-2022 Glucose [Mass/Vol] 128 mg/dL Normal [facility] Comment on above: Result Comment: PERF ORMED BY: [place] [address] PATHOLOGIST ACCESS REP TERESA PATTERSON M.D. Performed By: #### F ER, [id number], FE and TIBC, MG #### [address] HbA1c (Bld) [Mass fraction] 6.1 % High 4.3-5.6 [facility] Comment on above: Result Comment: Incr eased risk for diabetes: 5.7 - 6.4 diabetes: >6.4 glycemic control for adults with diabetes: <7.0 Performed By: #### F ER, [id number], FE and TIBC, MG #### [facility] [address] Basic Metabolic Panelon 09-0 Anion gap [Moles/Vol] 12.4 mmol/L Normal 6.0-15.0 [facility] Comment on above: Performed By: #### B MP, CBC #### [facility] [address] Calcium [Mass/Vol] 9.3 mg/dL Normal 8.6-10.3 [facility] Comment on above: Performed By: #### B MP, CBC #### [facility] [address] Chloride [Moles/Vol] 105 mmol/L Normal 98-107 [facility] Comment on above: Performed By: #### B MP, CBC #### [facility] [address] CO2 [Moles/Vol] 23.8 mmol/L Normal 21.0-31.0 [facility] Comment on above: Performed By: #### B MP, CBC #### [address] Creatinine [Mass/Vol] 0.88 mg/dL Normal 0.70-1.30 [facility] Comment on above: Performed By: #### B MP, CBC #### [facility] [address] [place] [address] Creatinine Clr Calc Pharmacy 84.38 [facility] Comment on above: Result Comment: PERF ORMED BY: [place] [address] PATHOLOGIST ACCESS REP TERESA PATTERSON M.D. Performed By: #### B MP, CBC #### [place] [address] [place] GFR/1.73 sq M.predicted MDRD (S/P/Bld) [Vol rate/Area] mL/min/{1.73_m2} [facility] Comment on above: Performed By: #### B MP, CBC #### [facility] [address] [place] [address] [place] Glucose [Mass/Vol] 110 mg/dL High 70-100 [facility] Comment on above: Result Comment: [place] Glucose Reference Range is dependent on time and content of last meal. Glucose of more than 200 mg/dL in a nonstressed, ambulatory subject supports the diagnosis of Diabetes Mellitus. ADA recommended reference range Performed By: #### B MP, CBC #### [facility] [address] Potassium [Moles/Vol] 3.2 mmol/L Low 3.5-5.1 [facility] Comment on above: Performed By: #### B MP, CBC #### [facility] [address] Sodium [Moles/Vol] 138 mmol/L Normal 136-145 [facility] Comment on above: Performed By: #### B MP, CBC #### [facility] [address] Urea nitrogen [Mass/Vol] 12 mg/dL Normal 7-25 [facility] Comment on above: Performed By: #### B MP, CBC #### [facility] [address] angio neckon 10-31-2022 CT angio neck [facility] [place] [address] [place] [address] CT Scan Report Signed Patient: Viraj Doherty MR#: [id number] : 1955 Acct:[id number] Age/Sex: 67 / M ADM Date: 10/30/22 Loc: Room: [address] [place] [address] Type: ADM IN Attending Dr: Davey Harding MD Copies to: MD Nolberto Woodward MD Ordering Provider: Nolberto Hernandez MD Date of Service: 10/30/22 CT/CT angio head: [facility] ([id number]) CT/CT angio neck: [facility] CTA Head and Neck TECHNIQUE: Axial imaging of the head and neck with 2-D and 3-D reconstruction. 90cc of Isovue-370. The CT exam was performed using one or more the following dose reduction techniques: Automated exposure control, adjustment of the MA and/or Kv according to patient size, or use of the iterative reconstruction technique. Stenoses were measured using the NASCET criteria. COMPARISON: None HISTORY: Slurred speech. Difficulty walking. The visualized aortic arch and great vessels are unremarkable. Subclavian arteries are patent bovine arch present. No carotid dissection, critical stenosis or occlusion identified. Mild. Calcified plaquing proximal internal carotid arteries bilaterally. No vertebral dissection, occlusion or abrupt cut off identified. The carotid siphons and vertebral basilar systems are patent. 1 cm segment of critical stenosis involving the left middle cerebral artery M1 segment distally. This causes for compromise flow along the left frontal lobe tributaries. There is occlusion of the distal M2 segment left frontal lobe. Anterior right middle cerebral arteries are patent proximally. The posterior circulation unremarkable. No aneurysm. No shunting. Mild maxillary sinus disease. Anterior hyperostosis of cervical spine. CT/CT angio head IMPRESSION: 1 cm segment of critical stenosis involving the left MCA M1 segment distally with compromised flow along the left frontal lobe. Teres. Occlusion of the distal M2 segment left frontal lobe. No intracranial aneurysm or AVM. Mild calcified plaquing of the carotid bifurcations without significant stenosis. Patent vertebral arteries. Impression dictated by: Delio Tran M.D.10/31/2022 7:42 AM Dictation Location: [place] [address] Transcribed By: [facility] 10/31/22 0742 Dictated By: Delio Tran DO 10/31/22 0736 Signed By: 10/31/22 [address] [facility] [address] head stroke alert wo nikole n 10-31-2022 CT head stroke alert wo [facility] [place] [address] [place] [address] CT Scan Report Signed Patient: Viraj Doherty MR#: [id number] : 1955 Acct:[id number] Age/Sex: 67 / M ADM Date: 10/30/22 Loc: Room: [address] [place] [address] Type: ADM IN Attending Dr: Davey Harding MD Copies to: MD Nolberto Woodward MD Ordering Provider: Nolberto Hernandez MD Date of Service: 10/30/22 CT/CT head stroke alert wo con: acute stroke/neuro deficits Unenhanced head CTstroke standby TECHNIQUE: Contiguous axial imaging of the head. The CT exam was performed using one or more the following dose reduction techniques: Automated exposure control, adjustment of the MA and/or Kv according to patient size, or use of the iterative reconstruction technique. COMPARISON: None HISTORY: Slurred speech. Difficulty walking. VENTRICLES: Within normal limits ATROPHY: Diffuse atrophy BRAIN PARENCHYMA: Decreased density of the white matter is most consistent with chronic small vessel disease. Bilateral basal ganglia and caudate nucleus lacunar type infarctions are likely remote. HEMORRHAGE: None HERNIATION: No mass effect or herniation INFARCTION: No recent vascular distribution infarction is seen. EXTRA-AXIAL FLUID COLLECTIONS None MIDBRAIN: Unremarkable COURTNEY: Unremarkable MEDULLA: Unremarkable SINUSES: Unremarkable ORBITS: Grossly unremarkable MASTOIDS: Unremarkable BONY STRUCTURES Intact ADDITIONAL FINDINGS: Atherosclerosis of the carotid siphons. CT/CT head stroke alert wo con IMPRESSION: No acute intracranial findings. Bilateral remote basal ganglia lacunar type infarctions. May consider follow-up assessment with MRI. Diffuse atrophy and chronic small vessel ischemic changes. [facility] preliminary report completed 10/30/2022 at 7:34 PM Impression dictated by: Delio Tran M.D.10/31/2022 7:35 AM Dictation Location: [place] [address] Transcribed By: [facility] 10/31/22 0735 Dictated By: Delio Tran DO 10/31/22 0733 Signed By: 10/31/22 0735 Normal [facility] Cholesterol [Mass/volume] in Serum or PlasmaOrdered By: Dunia Bear on 10-31-2022 Cholesterol [Mass/Vol] 244 mg/dL 140-200 [facility] Comment on above: Chol less than 200 m g/dl low riskChol 201-239 mg/dl borderline riskChol 240 mg/dl and greater high risk Cholesterol in LDL Calc [Mas s/Vol]Ordered By: Dunia Bear on 10-31-2022 Cholesterol in LDL [Mass/Vol] 179 mg/dL 0-100 [facility] Comment on above: LDL ATP III CLASSIFI CATIONLDL less than 100 mg/dL OptimalLDL 100-129 mg/dL Near or above optimalLDL 130-159 mg/dL Borderline highLDL 160-189 mg/dL HighLDL greater than 189 mg/dL Very high Cholesterol in VLDL Calc [Ma ss/Vol]Ordered By: Dunia Bear on 10-31-2022 Cholesterol in VLDL [Mass/Vol] 25 mg/dL [facility] Complete Blood Count Auto Di ffon 10-31-2022 Basophils (Bld) [#/Vol] 0.1 10*3/uL Normal 0.0-0.2 [facility] Comment on above: Result Comment: PERF ORMED BY: [place] [address] PATHOLOGIST ACCESS REP TERESA PATTERSON M.D. Performed By: #### B MP, CBC #### [address] Basophils/100 WBC (Bld) 1.0 % Normal . [facility] Comment on above: Performed By: #### B MP, CBC #### [place] [address] [place] Eosinophils (Bld) [#/Vol] 0.1 10*3/uL Normal 0.0-0.45 [facility] Comment on above: Performed By: #### B MP, CBC #### [address] Eosinophils/100 WBC (Bld) 0.7 % Normal . [facility] Comment on above: Performed By: #### B MP, CBC #### [place] [address] [place] Erythrocyte distribution width (RBC) [Ratio] 14.2 % Normal 12.0-14.8 [facility] Comment on above: Performed By: #### B MP, CBC #### [address] Hematocrit (Bld) [Volume fraction] 46.5 % Normal 38.8-50.0 [facility] Comment on above: Performed By: #### B MP, CBC #### [facility] [address] Hemoglobin (Bld) [Mass/Vol] 16.3 g/dL Normal 13.0-17.0 [facility] Comment on above: Performed By: #### B MP, CBC #### [facility] [address] Lymphocytes (Bld) [#/Vol] 2.6 10*3/uL Normal 1.00-4.8 [facility] Comment on above: Performed By: #### B MP, CBC #### [facility] [address] Lymphocytes/100 WBC (Bld) 25.2 % Normal . [facility] Comment on above: Performed By: #### B MP, CBC #### [address] MCH (RBC) [Entitic mass] 30.7 pg Normal 27.5-35.2 [facility] Comment on above: Performed By: #### B MP, CBC #### [address] MCV (RBC) [Entitic vol] 87.6 fL Normal 83.5-101 [facility] Comment on above: Performed By: #### B MP, CBC #### [address] Mean Corpuscular HGB Conc 35.0 g/dL Normal 32.5-35.6 [facility] Comment on above: Performed By: #### B MP, CBC #### [facility] [address] [place] [address] [place] Monocytes (Bld) [#/Vol] 0.9 10*3/uL High 0.0-0.8 [facility] Comment on above: Performed By: #### B MP, CBC #### [facility] [address] [place] [address] [place] Monocytes/100 WBC (Bld) 9.1 % Normal . [facility] Comment on above: Performed By: #### B MP, CBC #### [address] [place] [address] [place] Neutrophils (Bld) [#/Vol] 6.5 10*3/uL Normal 1.8-7.7 [facility] Comment on above: Performed By: #### B MP, CBC #### [facility] [address] Neutrophils/100 WBC (Bld) 64.0 % Normal . [facility] Comment on above: Performed By: #### B MP, CBC #### [facility] [address] NRBC% 0.6 /100{WBC} High 0-0.5 [facility] Comment on above: Performed By: #### B MP, CBC #### [address] Platelet mean volume (Bld) [Entitic vol] 8.7 fL Normal 6.6-10.1 [facility] Comment on above: Performed By: #### B MP, CBC #### [place] [address] [place] Platelets (Bld) [#/Vol] 192 10*3/uL Normal 150-450 [facility] Comment on above: Performed By: #### B MP, CBC #### [address] RBC (Bld) [#/Vol] 5.31 10*6/uL Normal 3.90-5.60 [facility] Comment on above: Performed By: #### B MP, CBC #### [place] [address] [place] WBC (Bld) [#/Vol] 10.2 10*3/uL Normal 4.1-10.5 [facility] Comment on above: Performed By: #### B MP, CBC #### [place] [address] [place] Dipstick and Microscopicon 0 10-31-2022 Appearance (U) Clear Normal Clear [facility] Comment on above: Order Comment: Name Collection Type:: Clean-Voided Midstream Performed By: #### B MP, CBC #### [facility] [address] [place] [address] [place] Bacteria,Urine None Seen Normal None Seen [facility] Comment on above: Order Comment: Name Collection Type:: Clean-Voided Midstream Result Comment: PERF ORMED BY: [place] [address] PATHOLOGIST ACCESS REP TERESA PATTERSON M.D. Performed By: #### B MP, CBC #### [place] [address] [place] Bilirubin,Urine Negative Normal Negative [facility] Comment on above: Order Comment: Name Collection Type:: Clean-Voided Midstream Performed By: #### B MP, CBC #### [place] [address] [place] Color (U) Yellow Normal Yellow [facility] Comment on above: Order Comment: Name Collection Type:: Clean-Voided Midstream Performed By: #### B MP, CBC #### [place] [address] [place] Glucose Ql (U) Normal Normal Normal [facility] Comment on above: Order Comment: Name Collection Type:: Clean-Voided Midstream Performed By: #### B MP, CBC #### [place] [address] [place] Ketones Ql (U) Negative Normal Negative [facility] Comment on above: Order Comment: Name Collection Type:: Clean-Voided Midstream Performed By: #### B MP, CBC #### [facility] [address] [place] [address] [place] Leukocyte esterase Test strip Ql (U) Negative Normal Negative [facility] Comment on above: Order Comment: Name Collection Type:: Clean-Voided Midstream Performed By: #### B MP, CBC #### [place] [address] [place] Nitrite,Urine Negative Normal Negative [facility] Comment on above: Order Comment: Name Collection Type:: Clean-Voided Midstream Performed By: #### B MP, CBC #### [address] Occult Blood,Urine 1+ High Negative [facility] Comment on above: Order Comment: Name Collection Type:: Clean-Voided Midstream Result Comment: PERF ORMED BY: [place] [address] PATHOLOGIST ACCESS REP TERESA PATTERSON M.D. Performed By: #### B MP, CBC #### [address] pH (U) 6.0 [pH] Normal 5.0-9.0 [facility] Comment on above: Order Comment: Name Collection Type:: Clean-Voided Midstream Performed By: #### B MP, CBC #### [place] [address] [place] Protein,Urine Trace High Negative [facility] Comment on above: Order Comment: Name Collection Type:: Clean-Voided Midstream Performed By: #### B MP, CBC #### [place] [address] [place] RBC,Urine 3-4 Normal 0-4 [facility] Comment on above: Order Comment: Name Collection Type:: Clean-Voided Midstream Performed By: #### B MP, CBC #### [address] Specificy [place],Urine > 1.050 High 1.001-1.030 [facility] Comment on above: Order Comment: Name Collection Type:: Clean-Voided Midstream Performed By: #### B MP, CBC #### [place] [address] [place] Squamous Epithelial Cell,Urine Rare Normal 0-2 [facility] Comment on above: Order Comment: Name Collection Type:: Clean-Voided Midstream Performed By: #### B MP, CBC #### [place] [address] [place] Urobilinogen,Urine Normal Normal Normal [facility] Comment on above: Order Comment: Name Collection Type:: Clean-Voided Midstream Performed By: #### B MP, CBC #### [facility] [address] WBC LM.HPF (Urine sed) [#/Area] 0 /[HPF] Normal 0-4 [facility] Comment on above: Order Comment: Name Collection Type:: Clean-Voided Midstream Performed By: #### B MP, CBC #### [facility] [address] echo transthoracicon [facility] echo transthoracic [facility] [place] [address] [place] [address] Echocardiogram Signed Patient: Viraj Doherty MR#: [id number] : 1955 Acct:[id number] Age/Sex: 67 / M ADM Date: 10/30/22 Loc: Room: [address] [place] [address] Type: ADM IN Attending Dr: Davey Harding MD Ordering Provider: John Garcia DO Date of Service: 10/30/2206/18/2117 [facility]: Neuro Symptoms/Deficit Copies to: DO Tatiana Tay MD Weight: 168 lb Performed By: VIKTORIYA Zamora BSA: 2.0 m2 BP: 188/97 mmHg HR: 76 Reason For Study: Neuro Symptoms/Deficit History: CVA. TIA. HTN. Interpretation Summary Ejection Fraction = 55-60%. The left ventricular wall motion is normal. Mild concentric left ventricular hypertrophy. There is mild mitral regurgitation. There is trace tricuspid regurgitation. There is no comparison study available. Procedure/Quality: A two-dimensional transthoracic echocardiogram with color flow and Doppler was performed. The study was technically good in quality. Left Ventricle: The left ventricular size is normal. Mild concentric left ventricular hypertrophy. Ejection Fraction = 55-60%. The left ventricular wall motion is normal. Left Atrium: The left atrium appears normal in size. Right Atrium: The right atrium appears normal in size. Right Ventricle: The right ventricular size, thickness and function are normal. Aortic Valve: The aortic valve is normal in structure and function. No aortic regurgitation is present. Mitral Valve: The mitral valve is normal in structure and function. There is mild mitral regurgitation. Tricuspid Valve: The tricuspid valve is normal in structure and function. There is trace tricuspid regurgitation. Pulmonic Valve: The pulmonic valve is normal in structure and function. Arteries: The aortic root is normal size. Pericardium/Pleura: No pericardial effusion seen. There is no pleural effusion. IVC/Hepatic Viens: The inferior vena cava is normal in size, with a normal collapsibility index. Measurements with Normals IVSd: 1.8 cm (0.7-1.1 cm)LVIDd: 4.2 cm (3.7-5.4 cm) LVPWd: 1.7 cm (0.7-1.1 cm)LVIDs: 2.2 cm (2.3-3.6 cm) LA dimension: 4.0 cm (2.3-4.0 cm)Ao root diam: 3.2 cm(2.0-3.6 cm) asc Aorta Diam: 3.2 cm(2.1-3.4cm) Doppler with Normals RVSP(TR): 17.5 mmHg (18-35mmHg) MV E max lopez: 96.0 cm/sec(0.8-1.3m/s) MV A max lopez: 39.8 cm/sec(0.0-0.0m/s) MV E/A: 2.4 (<1.5) MMode/2D Measurements Calculations RVDd: 3.3 cm FS: 46.8 % Ao root area: LVLd ap4: 7.1 cm TAPSE: 2.7 cm EDV(Teich): 7.9 cm2 EDV(MOD-sp4): RV S Lopez: 16.8 cm/sec 79.1 ml 51.2 ml ESV(Teich): LVLs ap4: 6.7 cm 17.0 ml ESV(MOD-sp4): EF(Teich): 78.5 % 20.6 ml EF(MOD-sp4): 59.8 % __ SV(MOD-sp4): 30.6 ml LAV(MOD-sp4): LA A2 area: 20.9 cm2 RA Volume: 43.6 ml 18.5 ml LAV(MOD-sp2): LA A4 area: 15.4 cm2 67.2 ml LA length (vol): 4.4 cm LA vol: 62.4 ml LA vol index: 31.9 ml/m2 __ RA Volume Index: 9.4 ml/m2 Doppler Measurements Calculations MV max P.0 mmHg E/E' lat: MR max lopez: TV max P.5 412.3 cm/sec 15.0 mmHg E/E' med: MR max P.3 mmHg 10.5 __ TR max lopez: 190.6 cm/sec TR max P.5 mmHg RAP systole: 3.0 mmHg Transcribed By: SCV Performed At: 10/31/22 1309 Signed By: Tatiana Miranda MD 10/31/22 1502 Normal [facility] Glucose mean value [Mass/vol ume] in Blood Estimated from glycated hemoglobinOrdered By: Dunia Bear on 10-31-2022 Average glucose Estimated from glycated hemoglobin (Bld) [Mass/Vol] 128 mg/dL [facility] Hemoglobin A1c percentageOrd ered By: Dunia Bear on 10-31-2022 HbA1c (Bld) [Mass fraction] 6.1 % 4.3-5.6 [facility] Comment on above: Increased risk for d iabetes: 5.7 - 6.4diabetes: >6.4glycemic control for adults with diabetes: <7.0 Lipid Panelon 10-31-2022 Cholesterol [Mass/Vol] 244 mg/dL High 140-200 [facility] Comment on above: Order Comment: Comme nt add Comment add Result Comment: Chol less than 200 mg/dl low risk Chol 201-239 mg/dl borderline risk Chol 240 mg/dl and greater high risk Performed By: #### F ER, [id number], FE and TIBC, MG #### [facility] [address] Cholesterol in HDL [Mass/Vol] 39 mg/dL Normal 23-92 [facility] Comment on above: Order Comment: Comme nt add Comment add Result Comment: HDL CHOL ATP-III CLASSIFICATION Cardiovascular Risk HDL > or equal to 60 mg/dL LOW HDL < 40 mg/dL HIGH Performed By: #### F ER, [id number], FE and TIBC, MG #### [facility] [address] Cholesterol.total/Chol esterol in HDL [Mass ratio] 6.3 {ratio} Normal <5.0 [facility] Comment on above: Order Comment: Comme nt add Comment add Performed By: #### F ER, [id number], FE and TIBC, MG #### [facility] [address] LDL Cholesterol,Calculated 179 mg/dL High 0-100 [facility] Comment on above: Order Comment: Comme nt add Comment add Result Comment: LDL ATP III CLASSIFICATION LDL less than 100 mg/dL Optimal LDL 100-129 mg/dL Near or above optimal LDL 130-159 mg/dL Borderline high LDL 160-189 mg/dL High LDL greater than 189 mg/dL Very high Performed By: #### F ER, [id number], FE and TIBC, MG #### [address] Triglyceride w/Reflex 129 mg/dL Normal 0-149 [facility] Comment on above: Order Comment: Comme nt add Comment add Result Comment: TRIG ATP III CLASSIFICATION TRIG less than 150 mg/dL Normal TRIG 150-199 mg/dL Borderline high TRIG 200-500 mg/dL High TRIG greater than 500 mg/dL Very high Standard traceable to the Center for Disease Conrtrol and Prevention (CDC) test method. Performed By: #### F ER, [id number], FE and TIBC, MG #### [facility] [address] VLDL CHOLESTEROL 25 mg/dL Normal [facility] Comment on above: Order Comment: Comme nt add Comment add Performed By: #### F ER, [id number], FE and TIBC, MG #### [place] [id number] [facility] MR head/brain wo conon 10-31 MR head/brain wo con [facility] [place] [address] [place] [address] MRI Report Signed Patient: Viraj Doherty MR#: [id number] : 1955 Acct:[id number] Age/Sex: 67 / M ADM Date: 10/30/22 Loc: Room: [address] [place] [address] Type: ADM IN Attending Dr: Davey Harding MD Copies to: MD John Woodward DO Ordering Provider: John Garcia DO Date of Service: 10/31/22 MR/MR head/brain wo con: cva EXAMINATION: MRI OF THE BRAIN WITHOUT CONTRAST CLINICAL HISTORY: Slurred speech. Trouble finding words. COMPARISON: Stroke workup 10/30/2022 TECHNIQUE: Multiecho, multiplanar imaging of the brain was performed without enhancement. There is a focal area restriction is seen involving the left thalamus region with associated high signal on the T2 and T2 FLAIR imaging suggestive of a late subacute infarct. No additional areas of restricted diffusion are seen. No evidence of blood products are seen on T2 Star imaging. Cortical atrophy with moderately severe chronic microvascular ischemic changes. Midbrain, courtney, medulla and cerebellum all appear grossly unremarkable. Intraorbital contents appear unremarkable. Visualized paranasal sinuses are clear. 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 THIS APPEARS TO BE SUPERIMPOSED ON CORTICAL ATROPHY AND MODERATELY SEVERE CHRONIC MICROVASCULAR ISCHEMIC CHANGES. Impression dictated by: Jose Martin Jha Jr., D.O.10/31/2022 12:51 PM Dictation Location: [place] [address] Transcribed By: [facility] 10/31/22 1251 Dictated By: Jose Martin Jha Jr, DO 10/31/22 1247 Signed By: 10/31/22 1251 Normal [facility] Serum or plasma high density lipoprotein (HDL) cholesterol measurementOrdered By: Dunia Bear on 10-31-2022 Cholesterol in HDL [Mass/Vol] 39 mg/dL [facility] Comment on above: HDL CHOL ATP-III CLA SSIFICATION Cardiovascular RiskHDL > or equal to 60 mg/dL LOWHDL < 40 mg/dL HIGH Serum or plasma total choles terol/high density lipoprotein (HDL) cholesterol mass ratOrdered By: Dunia Bear on 10-31-2022 Cholesterol.total/Chol esterol in HDL [Mass ratio] 6.3 {ratio} <5.0 [facility] Thyroid Stimulating Hormoneo n 10-31-2022 TSH Qn 3.23 m[IU]/L Normal 0.45-5.33 [facility] Comment on above: Order Comment: Comme nt add Comment add Result Comment: PERF ORMED BY: [place] [address] PATHOLOGIST ACCESS REP TERESA PATTERSON M.D. Performed By: #### F ER, [id number], FE and TIBC, MG #### [facility] [address] [place] [address] [place] Thyrotropin [Units/volume] i n Serum or PlasmaOrdered By: Dunia Bear on 10-31-2022 TSH Qn 3.23 m[IU]/L 0.45-5.33 [facility] Triglyceride [Mass/volume] i n Serum or PlasmaOrdered By: Dunia Bear on 10-31-2022 Triglyceride [Mass/Vol] 129 mg/dL 0-149 [facility] Comment on above: TRIG ATP III CLASSIF ICATIONTRIG less than 150 mg/dL NormalTRIG 150-199 mg/dL Borderline highTRIG 200-500 mg/dL High TRIG greater than 500 mg/dL Very highStandard traceable to the Center for Disease Conrtrol and Prevention (CDC) test method. XR chest 1V portableon 10-31 XR chest 1V portable [facility] [place] [address] [place] [address] XRay Report Signed Patient: Viraj Doherty MR#: [id number] : 1955 Acct:[id number] Age/Sex: 67 / M ADM Date: 10/30/22 Loc: Room: [address] [place] [address] Type: ADM IN Attending Dr: Davey Harding MD Copies to: MD Nolberto Woodward MD Ordering Provider: Nolberto Hernandez MD Date of Service: 10/30/22 XR/XR chest 1V portable: Neuro Symptoms/Deficit Plain film chest single view HISTORY: Stroke standby. Slurred speech. Weakness. COMPARISON: None FINDINGS: SUPPORT DEVICES: None POSTSURGICAL CHANGES: None HEART: Within normal limits PULMONARY SEAMUS: Within normal limits MEDIASTINUM: Unremarkable LUNGS AND PLEURA: No acute lung process, pleural effusion or pneumothorax identified. Mild interstitial prominence. BONY STRUCTURES: Intact ADDITIONAL FINDINGS None XR/XR chest 1V portable IMPRESSION: No acute process. Impression dictated by: Delio Tran M.D.10/31/2022 7:33 AM Dictation Location: [place] [address] Transcribed By: [facility] 10/31/22 0733 Dictated By: Delio Tran DO 10/31/22 0732 Signed By: 10/31/22 0733 Normal [facility] Activated partial thrombopla stin time (aPTT) in platelet poor plasma by coagulation aOrdered By: Nolberto Hernandez on 10-30-2022 aPTT Coag (PPP) [Time] 29.4 s 25.1-36.5 [facility] Automated epithelial cells c ount in urine sediment (number/area)Ordered By: Nolberto Hernandez on 10-30-2022 Epithelial cells Auto (Urine sed) [#/Area] Rare [HPF] 0-2 [facility] Automated erythrocytes count in urine sediment (number/area)Ordered By: Nolberto Hernandez on 10-30-2022 RBC Auto (Urine sed) [#/Area] 3-4 [HPF] 0-4 [facility] Automated leukocytes count i n urine sediment (number/area)Ordered By: Nolberto Hernandez on 10-30-2022 WBC Auto (Urine sed) [#/Area] 0-1 [HPF] 0-4 [facility] Basic Metabolic Panelon Anion gap [Moles/Vol] 11.6 mmol/L Normal 6.0-15.0 [facility] Comment on above: Performed By: #### F ER, [id number], FE and TIBC, MG #### [facility] [address] Calcium [Mass/Vol] 9.1 mg/dL Normal 8.6-10.3 [facility] Comment on above: Performed By: #### F ER, [id number], FE and TIBC, MG #### [facility] [address] Chloride [Moles/Vol] 104 mmol/L Normal 98-107 [facility] Comment on above: Performed By: #### F ER, [id number], FE and TIBC, MG #### [address] CO2 [Moles/Vol] 24.7 mmol/L Normal 21.0-31.0 [facility] Comment on above: Performed By: #### F ER, [id number], FE and TIBC, MG #### [address] Creatinine [Mass/Vol] 0.98 mg/dL Normal 0.70-1.30 [facility] Comment on above: Performed By: #### F ER, [id number], FE and TIBC, MG #### [address] Creatinine Clr Calc Pharmacy 71.14 [facility] Comment on above: Result Comment: PERF ORMED BY: [place] [address] PATHOLOGIST ACCESS REP TERESA PATTERSON M.D. Performed By: #### F ER, [id number], FE and TIBC, MG #### [address] GFR/1.73 sq M.predicted MDRD (S/P/Bld) [Vol rate/Area] mL/min/{1.73_m2} [facility] Comment on above: Performed By: #### F ER, [id number], FE and TIBC, MG #### [facility] [address] Glucose [Mass/Vol] 107 mg/dL High 70-100 [facility] Comment on above: Result Comment: [facility] Glucose Reference Range is dependent on time and content of last meal. Glucose of more than 200 mg/dL in a nonstressed, ambulatory subject supports the diagnosis of Diabetes Mellitus. ADA recommended reference range Performed By: #### F ER, [id number], FE and TIBC, MG #### [facility] [address] Potassium [Moles/Vol] 3.3 mmol/L Low 3.5-5.1 [facility] Comment on above: Performed By: #### F ER, [id number], FE and TIBC, MG #### [facility] [address] Sodium [Moles/Vol] 137 mmol/L Normal 136-145 [facility] Comment on above: Performed By: #### F ER, [id number], FE and TIBC, MG #### [facility] [address] Urea nitrogen [Mass/Vol] 12 mg/dL Normal 7-25 [facility] Comment on above: Performed By: #### F ER, [id number], FE and TIBC, MG #### [address] Basophils Auto (Bld) [#/Vol] Ordered By: Nolberto Hernandez on 10-30-2022 Basophils (Bld) [#/Vol] 0.1 10*3/uL 0.0-0.2 [facility] Basophils/100 WBC Auto (Bld) Ordered By: Nolberto Hernandez on 10-30-2022 Basophils/100 WBC (Bld) 0.8 % . [facility] Bilirubin Test strip Ql (U)O rdered By: Nolberto Hernandez on 10-30-2022 Bilirubin Ql (U) Negative Negative [facility] Calcium [Mass/volume] in Ser um or PlasmaOrdered By: Nolberto Hernandez on 10-30-2022 Calcium [Mass/Vol] 9.1 mg/dL 8.6-10.3 [facility] Carbon dioxide, total [Moles /volume] in Serum or PlasmaOrdered By: Nolberto Hernandez on 10-30-2022 CO2 [Moles/Vol] 24.7 mmol/L 21.0-31.0 [facility] Chloride [Moles/volume] in S shani or PlasmaOrdered By: Nolberto Hernandez on 10-30-2022 Chloride [Moles/Vol] 104 mmol/L 98-107 [facility] Color Auto (U)Ordered By: Karen Hernandez on 10-30-2022 Color (U) Yellow Yellow [facility] Complete Blood Count Auto Di ffon 10-30-2022 Basophils (Bld) [#/Vol] 0.1 10*3/uL Normal 0.0-0.2 [facility] Comment on above: Result Comment: PERF ORMED BY: [place] [address] PATHOLOGIST ACCESS REP TERESA PATTERSON M.D. Performed By: #### F ER, [id number], FE and TIBC, MG #### [facility] [address] [place] [address] Basophils/100 WBC (Bld) 0.8 % Normal . [facility] Comment on above: Performed By: #### F ER, [id number], FE and TIBC, MG #### [facility] [address] [place] [address] Eosinophils (Bld) [#/Vol] 0.1 10*3/uL Normal 0.0-0.45 [facility] Comment on above: Performed By: #### F ER, [id number], FE and TIBC, MG #### [facility] [address] [place] [address] [place] Eosinophils/100 WBC (Bld) 1.0 % Normal . [facility] Comment on above: Performed By: #### F ER, [id number], FE and TIBC, MG #### [facility] [address] [place] [address] Erythrocyte distribution width (RBC) [Ratio] 14.1 % Normal 12.0-14.8 [facility] Comment on above: Performed By: #### F ER, [id number], FE and TIBC, MG #### [address] Hematocrit (Bld) [Volume fraction] 48.3 % Normal 38.8-50.0 [facility] Comment on above: Performed By: #### F ER, [id number], FE and TIBC, MG #### [address] Hemoglobin (Bld) [Mass/Vol] 16.7 g/dL Normal 13.0-17.0 [facility] Comment on above: Performed By: #### F ER, [id number], FE and TIBC, MG #### [address] Lymphocytes (Bld) [#/Vol] 3.0 10*3/uL Normal 1.00-4.8 [facility] Comment on above: Performed By: #### F ER, [id number], FE and TIBC, MG #### [address] Lymphocytes/100 WBC (Bld) 31.1 % Normal . [facility] Comment on above: Performed By: #### F ER, [id number], FE and TIBC, MG #### [address] MCH (RBC) [Entitic mass] 30.2 pg Normal 27.5-35.2 [facility] Comment on above: Performed By: #### F ER, [id number], FE and TIBC, MG #### [address] MCV (RBC) [Entitic vol] 87.2 fL Normal 83.5-101 [facility] Comment on above: Performed By: #### F ER, [id number], FE and TIBC, MG #### [address] Mean Corpuscular HGB Conc 34.7 g/dL Normal 32.5-35.6 [facility] Comment on above: Performed By: #### F ER, [id number], FE and TIBC, MG #### [address] Monocytes (Bld) [#/Vol] 0.9 10*3/uL High 0.0-0.8 [facility] Comment on above: Performed By: #### F ER, [id number], FE and TIBC, MG #### [address] Monocytes/100 WBC (Bld) 18.82 % Normal 0.00-20.00 [facility] Comment on above: Performed By: #### F ER, [id number], FE and TIBC, MG #### [address] Monocytes/100 WBC (Bld) 9.0 % Normal . [facility] Comment on above: Performed By: #### F ER, [id number], FE and TIBC, MG #### [address] Neutrophils (Bld) [#/Vol] 5.5 10*3/uL Normal 1.8-7.7 [facility] Comment on above: Performed By: #### F ER, [id number], FE and TIBC, MG #### [address] Neutrophils/100 WBC (Bld) 58.1 % Normal . [facility] Comment on above: Performed By: #### F ER, [id number], FE and TIBC, MG #### [address] NRBC% 0.2 /100{WBC} Normal 0-0.5 [facility] Comment on above: Performed By: #### F ER, [id number], FE and TIBC, MG #### [address] Platelet mean volume (Bld) [Entitic vol] 8.8 fL Normal 6.6-10.1 [facility] Comment on above: Performed By: #### F ER, [id number], FE and TIBC, MG #### [facility] [address] Platelets (Bld) [#/Vol] 192 10*3/uL Normal 150-450 [facility] Comment on above: Performed By: #### F ER, [id number], FE and TIBC, MG #### [facility] [address] RBC (Bld) [#/Vol] 5.54 10*6/uL Normal 3.90-5.60 [facility] Comment on above: Performed By: #### F ER, [id number], FE and TIBC, MG #### [facility] [address] WBC (Bld) [#/Vol] 9.5 10*3/uL Normal 4.1-10.5 [facility] Comment on above: Performed By: #### F ER, [id number], FE and TIBC, MG #### [facility] [address] Creatine Kinaseon 10-30-2022 CK [Catalytic activity/Vol] 133 U/L Normal 30-223 [facility] Comment on above: Performed By: #### F ER, [id number], FE and TIBC, MG #### [facility] [address] Creatine kinase [Enzymatic a ctivity/volume] in Serum or PlasmaOrdered By: Nolberto Hernandez on 10-30-2022 CK [Catalytic activity/Vol] 133 U/L 30-223 [facility] Creatinine [Mass/volume] in Serum or PlasmaOrdered By: Nolberto Hernandez on 10-30-2022 Creatinine [Mass/Vol] 0.98 mg/dL 0.70-1.30 [facility] ECG 12 lead ECGon 10-30-2022 ECG 12 lead ECG [facility] [place] [address] [place] [address] Electrocardiograph Report Signed Patient: Viraj Doherty MR#: [id number] : 1955 Acct:[id number] Age/Sex: 67 / M ADM Date: 10/30/22 Loc: 4 Room: [address] [place] [address] Type: ADM IN Attending Dr: John Garcia DO Ordering Provider: Nolberto Hernandez MD Date of Service: 10/30/2206/19/1915 ECG/ECG 12 lead ECG: Neuro Symptoms/Deficit Copies to: Test Reason : Blood Pressure : 224/124 mmHG Vent. Rate : 068 BPM Atrial Rate : 068 BPM P-R Int : 198 ms QRS Dur : 114 ms QT Int : 440 ms P-R-T Axes : 075 095 -63 degrees QTc Int : 467 ms Normal sinus rhythm Rightward axis Incomplete right bundle branch block Prolonged QT Abnormal ECG No previous ECGs available Confirmed by NOLBERTO HERNANDEZ MD ([id number]) on 10/31/2022 1:07:59 AM Referred By: Electronically Signed By:NOLBERTO HERNANDEZ MD Transcribed By: MUS Signed By Nolberto Hernandez MD 10/31/22 0108 Normal [facility] Eosinophils Auto (Bld) [#/Vo l]Ordered By: Nolberto Hernandez on 10-30-2022 Eosinophils (Bld) [#/Vol] 0.1 10*3/uL 0.0-0.45 [facility] Eosinophils/100 WBC Auto (Bl d)Ordered By: Nolberto Hernandez on 10-30-2022 Eosinophils/100 WBC (Bld) 1.0 % . [facility] Erythrocyte distribution wid th Auto (RBC) [Ratio]Ordered By: Nolberto Hernandez on 10-30-2022 Erythrocyte distribution width (RBC) [Ratio] 14.1 % 12.0-14.8 [facility] Glucose Glucometer (BldC) [M ass/Vol]Ordered By: Davey Harding on 10-30-2022 Glucose [Mass/Vol] 114 mg/dL [facility] Comment on above: Random Glucose Refer ence Range is dependent on time and content of last meal. Glucose of more than 200 mg/dL in a nonstressed, ambulatory subject supports the diagnosis of Diabetes Mellitus. Glucose Poct Glucometerson 0 10-30-2022 Glucose [Mass/Vol] 114 mg/dL Normal [facility] Comment on above: Result Comment: [place] [facility] Glucose Reference Range is dependent on time and content of last meal. Glucose of more than 200 mg/dL in a nonstressed, ambulatory subject supports the diagnosis of Diabetes Mellitus. PERFORMED BY: [facility] [address] [place] [address] PATHOLOGIST ACCESS REP TERESA PATTERSON M.D. Performed By: #### B MP, CBC #### [facility] [address] Glucose [Mass/volume] in Ser um or PlasmaOrdered By: Nolberto Hernandez on 10-30-2022 Glucose [Mass/Vol] 107 mg/dL 70-100 [facility] Comment on above: ADA recommended refe rence rangeRandom Glucose Reference Range is dependent on time and content of last meal. Glucose of more than 200 mg/dL in a nonstressed, ambulatory subject supports the diagnosis of Diabetes Mellitus. Hematocrit Auto (Bld) [Volum e fraction]Ordered By: Nolberto Hernandez on 10-30-2022 Hematocrit (Bld) [Volume fraction] 48.3 % 38.8-50.0 [facility] Hemoglobin [Mass/volume] in BloodOrdered By: Nolberto Hernandez on 10-30-2022 Hemoglobin (Bld) [Mass/Vol] 16.7 g/dL 13.0-17.0 [facility] INR in Platelet poor plasma by Coagulation assayOrdered By: Nolberto Hernandez on 10-30-2022 INR Coag (PPP) [Relative time] 1.1 {INR} [facility] Comment on above: INR Therapeutic Rang e A) Pre- and Peroperative OAT started two weeks before surgery. NOT HIP SURGERY: 1.5 - 2.5 HIP SURGERY: 2 - 3B) Primary and secondary prevention of venous THROMBOSIS: 2 - 3C) Active venous thrombosis, pulmonary embolismand prevention of recurrent venous thrombosis: 2 - 3D) Prevention of arterial thromboembolismincluding patients with mechanical heart valves: 3 - 4.5 Ketones Auto test strip (U) [Mass/Vol]Ordered By: Nolberto Hernandez on 10-30-2022 Ketones (U) [Mass/Vol] Negative Negative Fi [facility] - CoagulationOrde red By: Nolberto Hernandez on 10-30-2022 PT Coag (PPP) [Time] 12.6 s 9.0-12.9 [facility] Leukocytes [#/volume] correc khadra for nucleated erythrocytes in Blood by Automated counOrdered By: Nolberto Hernandez on 10-30-2022 WBC corrected for nucl RBC Auto (Bld) [#/Vol] 9.5 10*3/uL 4.1-10.5 [facility] Lymphocytes Auto (Bld) [#/Vo l]Ordered By: Nolberto Hernandez on 10-30-2022 Lymphocytes (Bld) [#/Vol] 3.0 10*3/uL 1.00-4.8 [facility] Lymphocytes/100 WBC Auto (Bl d)Ordered By: Nolberto Hernandez on 10-30-2022 Lymphocytes/100 WBC (Bld) 31.1 % . [facility] MCH Auto (RBC) [Entitic mass ]Ordered By: Nolberto Hernandez on 10-30-2022 MCH (RBC) [Entitic mass] 30.2 pg 27.5-35.2 [facility] MCHC Auto (RBC) [Mass/Vol]Or dered By: Nolberto Hernandez on 10-30-2022 MCHC (RBC) [Mass/Vol] 34.7 g/dL 32.5-35.6 [facility] MCV Auto (RBC) [Entitic vol] Ordered By: Nolberto Hernandez on 10-30-2022 MCV (RBC) [Entitic vol] 87.2 fL 83.5-101 [facility] Monocyte distribution width [Entitic volume] in Blood by AutomatedOrdered By: Nolberto Hernandez on 10-30-2022 Monocyte distribution width Auto (Bld) [Entitic vol] 18.82 % 0.00-20.00 [facility] Monocytes Auto (Bld) [#/Vol] Ordered By: Nolbreto Hernandez on 10-30-2022 Monocytes (Bld) [#/Vol] 0.9 10*3/uL 0.0-0.8 [facility] Monocytes/100 WBC Auto (Bld) Ordered By: Nolberto Hernandez on 10-30-2022 Monocytes/100 WBC (Bld) 9.0 % . [facility] Neutrophils Auto (Bld) [#/Vo l]Ordered By: Nolberto Hernandez on 10-30-2022 Neutrophils (Bld) [#/Vol] 5.5 10*3/uL 1.8-7.7 [facility] Neutrophils/100 WBC Auto (Bl d)Ordered By: Nolberto Hernandez on 10-30-2022 Neutrophils/100 WBC (Bld) 58.1 % . [facility] Nitrite Test strip Ql (U)Ord ered By: Nolebrto Hernandez on 10-30-2022 Nitrite Ql (U) Negative Negative [facility] No Panel InformationOrdered By: Nolberto Hernandez on 10-30-2022 Estimated GFR (CKD-EPI) > 60.0 mL/Min [facility] Creatinine Clearance (Chem 71.14 [facility] Nucleated erythrocytes [Pres ence] in Blood by Automated countOrdered By: Nolberto Hernandez on 10-30-2022 Nucleated RBC Auto Ql (Bld) 0.2 /100{WBC} 0-0.5 [facility] Partial Thromboplastin Timeo n 10-30-2022 aPTT Coag (Bld) [Time] 29.4 s Normal 25.1-36.5 [facility] Comment on above: Result Comment: PERF ORMED BY: [place] [address] PATHOLOGIST ACCESS REP TERESA PATTERSON M.D. Performed By: #### F ER, [id number], FE and TIBC, MG #### [facility] [address] [place] [address] Platelet mean volume Auto (B ld) [Entitic vol]Ordered By: Nolberto Hernandez on 10-30-2022 Platelet mean volume (Bld) [Entitic vol] 8.8 fL 6.6-10.1 [facility] Platelets Auto (Bld) [#/Vol] Ordered By: Nolberto Hernandez on 10-30-2022 Platelets (Bld) [#/Vol] 192 10*3/uL 150-450 [facility] Potassium [Moles/volume] in Serum or PlasmaOrdered By: Nolberto Hernandez on 10-30-2022 Potassium [Moles/Vol] 3.3 mmol/L 3.5-5.1 [facility] Protein Auto test strip (U) [Mass/Vol]Ordered By: Nolberto Hernandez on 10-30-2022 Protein (U) [Mass/Vol] Trace mg/dL Negative [facility] Prothrombin Time INRon 10-30 INR Coag (PPP) [Relative time] 1.1 {INR} Normal [facility] Comment on above: Result Comment: INR Therapeutic Range A) Pre- and Peroperative OAT started two weeks before surgery. NOT HIP SURGERY: 1.5 - 2.5 HIP SURGERY: 2 - 3 B) Primary and secondary prevention of venous THROMBOSIS: 2 - 3 C) Active venous thrombosis, pulmonary embolism and prevention of recurrent venous thrombosis: 2 - 3 D) Prevention of arterial thromboembolism including patients with mechanical heart valves: 3 - 4.5 Performed By: #### F ER, [id number], FE and TIBC, MG #### [facility] [address] PT Coag (PPP) [Time] 12.6 s Normal 9.0-12.9 [facility] Comment on above: Performed By: #### F ER, [id number], FE and TIBC, MG #### [facility] [address] RBC Auto (Bld) [#/Vol]Ordere d By: Nolberto Hernandez on 10-30-2022 RBC (Bld) [#/Vol] 5.54 10*6/uL 3.90-5.60 [facility] Serum or plasma anion gap de terminationOrdered By: Nolberto Hernandez on 10-30-2022 Anion gap [Moles/Vol] 11.6 mmol/L 6.0-15.0 [facility] Sodium [Moles/volume] in Ser um or PlasmaOrdered By: Nolberto Hernandez on 10-30-2022 Sodium [Moles/Vol] 137 mmol/L 136-145 [facility] Specific gravity Auto test s trip (U) [Rel density]Ordered By: Nolberto Hernandez on 10-30-2022 Specific gravity (U) [Rel density] > 1.050 1.001-1.030 [facility] Troponin I High Sensitivityo n 10-30-2022 Troponin I High Sensitivity 12.1 pg/mL Normal 0.0-20.0 [facility] Comment on above: Result Comment: PERF ORMED BY: [facility] [address] [place] [address] PATHOLOGIST ACCESS REP TERESA PATTERSON M.D. Performed By: #### F ER, [id number], FE and TIBC, MG #### [facility] [address] Troponin I.cardiac [Mass/vol ume] in Serum or Plasma by Detection limit <= 0.01 ng/Ordered By: Nolberto Hernandez on 10-30-2022 Troponin I.cardiac DL <= 0.01 ng/mL [Mass/Vol] 12.1 pg/mL 0.0-20.0 [facility] Urea nitrogen [Mass/volume] in Serum or PlasmaOrdered By: Nolberto Hernandez on 10-30-2022 Urea nitrogen [Mass/Vol] 12 mg/dL 7-25 [facility] Urine bacteria detection by automated methodOrdered By: Nolberto Hernandez on 10-30-2022 Bacteria Auto Ql (U) None seen None Seen [facility] Urine clarity by refractomet ry automatedOrdered By: Nolberto Hernandez on 10-30-2022 Clarity Refractometry automated (U) Clear Clear [facility] Urine glucose measurement by automated test strip (mass/volume)Ordered By: Nolberto Hernandez on 10-30-2022 Glucose Auto test strip (U) [Mass/Vol] Normal mg/dL Normal [facility] Urine hemoglobin detection b y automated test stripOrdered By: Nolberto Hernandez on 10-30-2022 Hemoglobin Auto test strip Ql (U) 1+ Negative [facility] Urine leukocyte esterase det ection by automated test stripOrdered By: Nolberto Hernandez on 10-30-2022 Leukocyte esterase Auto test strip Ql (U) Negative Negative [facility] Urobilinogen Auto test strip (U) [Mass/Vol]Ordered By: Nolberto Hernandez on 10-30-2022 Urobilinogen (U) [Mass/Vol] Normal mg/dL Normal [facility] WBC Auto (Bld) [#/Vol]Ordere d By: Nolberto Hernandez on 10-30-2022 WBC (Bld) [#/Vol] 9.5 10*3/uL 4.1-10.5 [facility] pH Auto test strip (U)Ordere d By: Nolberto Hernandez on 10-30-2022 pH (U) 6.0 [pH] 5.0-9.0 [facility] Quantiferon-TB Plus (Client Incubated)on 09-08-2022 Gamma interferon background IA Qn (Bld) 0.81 International_Unit/mL Invalid Interpretation Code [facility] Comment on above: Performed By: #### 1 [id number] #### [facility] [address] [place] [address] M. tuberculosis stim IFN-g by CD4+ CD8+ T-cells Qn (Bld) 0.13 International_Unit/mL Invalid Interpretation Code [facility] Comment on above: Performed By: #### 1 [id number] #### [facility] [address] [place] [address] M. tuberculosis stim IFN-g by CD4+ T-cells Qn (Bld) 0.49 International_Unit/mL Invalid Interpretation Code [facility] Comment on above: Performed By: #### 1 [id number] #### [facility] [address] [place] [address] M. tuberculosis stim IFN-g Ql (Bld) [Interp] Negative Invalid Interpretation Code Negative [facility] Comment on above: Result Comment: No r esponse to M tuberculosis antigens detected. Infection with M tuberculosis is unlikely, but high risk individuals should be considered for additional testing (ATS/IDSA/CDC Clinical Practice Guidelines, 2017). The reference range is an Antigen minus Nil result of <0.35 IU/mL. The specimen received for QuantiFERON testing was incubated by the ordering institution. Specific procedures outlined in our Directory of Services and in the package insert for the QuantiFERON Gold (In Tube) test must be followed to enable for proper stimulation of cells for the production of interferon gamma. Chemiluminescence immunoassay methodology Performed at: [facility] [id number] PhD Rex Shirley Performed By: #### 1 [id number] #### [facility] [address] [place] [address] Mitogen stimulated gamma interferon Qn (Bld) >10.00 Invalid Interpretation Code [facility] Comment on above: Performed By: #### 1 [id number] #### [facility] [address] [place] [address] Service comment (Unsp spec) [Interp] Comment Invalid Interpretation Code [facility] Comment on above: Result Comment: Wilmer tiFERON-TB Gold Plus is a qualitative indirect test for M tuberculosis infection (including disease) and is intended for use in conjunction with risk assessment, radiography, and other medical and diagnostic evaluations. The QuantiFERON-TB Gold Plus result is determined by subtracting the Nil value from either TB antigen (Ag) value. The Mitogen tube serves as a control for the test. Performed By: #### 1 [id number] #### [facility] [address] [place] [address] Consent for Treatmenton 08-26 Consent for Treatment [id number]:127 Normal [facility] Physician Orderon 09-06-2022 Physician Order [id number]:127 Normal [facility] Coding Summary.on 09-13-2021 Coding Summary. CD:[id number] Gh0bWw +PGhlYWQ+DK0OOMTfR82ghLCfz E6SU3tNXC3ENPTEDCZJQL2NTL0 jyTY3KPnmE8YssmFt VipwmKZwYQ73PBs7SZX1sDdzHO oizL2yyNUyJ3o4AyAcIM99mW22 SGlqJVSkIsX8UiVaaydshMHf R0iaEvKwyYCyYxv+PHRhYmxlIH qkMWLeHZpuPJJbXwUgmVzwLC8s Qj0fOKHhSFMvqIcmsHSbOgGr m0gcSXLaBJijXS7ejIjjU4IcdX V9GYQkq2u3Qp23rDG+PHRkIHN0 eNkmAGqui129UwExn4jeZNW8 qZWpPQavMOT5D81gl0T3JNBlWS McWVW8pMQ3gC5hpOyxjlzyQ7Wu vNIcKrG6MPV7mEUyiQ9tcLre edcexK1vFhw+L90GXD4HKBBQPM 2XFrr6D7BdEmlfsKX+NF46PMSj PK26kMEceFOjs3ocbVu8FwVn LQWzWKE0wVgeCTait9GkPDTaD2 3dhJRgl0K3DPHzuCnbrEOtIlDb iVU5iH8jDQfyamvfx4nuupuu Bljvw6gyeu96sU34B33cPOngMV OvYEQ3LSYzBTNvxLulkm7faE7q Ii8+NRqzx8jvr3wprLp9RqJh PXDhsnJcqRczCUW1n2CuNw08Q2 FscQzgx7KrPeb8wu59zBEey1F9 vAD4CDyuLOUqlP0gCZdgSdT2 WUHvBuYvzD64aZBgLXiiZp7wpJ rdyImhUR8jUVDawqxtQBPjyZ5y RONccNChwXzkPM2eRENyvhuu l312SuFzSVY5BBZmcOEsI5ErpW 3aAxAwIQVdOVEqA2SbpSXvTRml T107YNwaSgI4KJVqqhUuZ9Pn IZEgzYwaFuF4h7K3Wn8Sm1Clcb ekJUF5NNhkYES8OtK4PlMjFaF5 T5BfTcw0CLAoxGpoLL3mI0Bz FXEbiftlddyhjMK5IXAcEQHbhZ 96bQMnRKseYw2rw5L6m883WMIh OMInfA40Ks7uhYnrVCNwwFDB cS3jziref0qturuyUaBxGKLeGO g6ZXc7TSKybNuxBfGnQBX7FcG1 QVA4kHPbmC9qkDjcbvgdwD2y Oyc+F93fhV0wXLK8IVT3yvczZX PcbcXqVH93RC46C0HyKmfciGVq bGU+PHZqrpJfjFepEL1cBgJh n4zko9MjYOqpQ7OoAAXxUDtqMf l0GXTpBML1jDF3pW7nYOYrBSky y0C2qHO2Q7BbroLtau6vj3ju YEGqLDrkD46kwILaq8D6BLWjnU T1ZLFafCktPyYkkT45Btx+PGNv aQxua4EeZnwow7bny5vevXy4 TzAdJLFaaeSktQnlZCN7s3XvPv 67Z43pXXcdTQRgBCUzBQKcMPGu aQbeop0lgR2iRx7+PGNvbCB3 uHH4jJ9gMKFxNsD5DSwdT521Sy BkzAUxSizxb5eij3rqrLv3EuUa CQEilhCyhLnxWOY5o7TmXd09 C46cLGpcSCWbUFXuQTOsPPMjaS rhum1vfP1uDk4+OA5hr5wsxb34 oV67bPL+ZFEgXGF6lSksHIve VXGtxK0cVGvhFlZ2JPWfEvFstE 07yQGaCCtfAt0tzGhnxNfpWX4d LJWofyvhf733DoGmc7piHUTb rLApXXmyGDT1S54ox0R2UQWhYU UpYIO2jDL2fJ5kjJpvuukgnMLh tSyshpZilXztQKhnSLzpM188 IHRvcDsnPlBhdGllbnQgTmFtZT z9O8PaNia6QKNrkTroPU2ghJDt HZdmVb2pcUtvvEbzYR1mUOCc eoibm576CpPpf0qxLONzsNHoYO taAXM8A02rp3S3YBUrQGYlSVN4 sYK2bT7msUhvtidgvSRndXiu oiPboDbyTTgcNUhhL248AZAcjA grFbNosuRiOJFobMK0EF41MZ64 nJGsd6M1pHA7P7ZmYEUmzmkb vnqpzEX7MVVaJAXuvQ94Ob7dmK izCp4qFWOiBKX4TMLkkFGcP2Gx hG4wNySuJIAbJEJzT0IxaTAb TExsI516SWjxFjD9SRSvlrKwF8 SvUIRtyEyoNtX1l1G0Ve7KD6S8 NM70IP01aFYzy6F2wYU8U0Ub WSJgtpretdbqlPP7GOUuZDEcuM 26Iu6qvEhkSn2wSCIqBXE0YYXf lCSxI4RceN6oMhIvTQEqJHJg A0IioMVcEAizB707EKhzDzZ3VC TinzSwX2KvRLTheLjnYaB6k1K1 Qx9LAEb0GG53KZ36vOSrv3D9 cAV5Y4GtXIXxfmaipsvomDI2IK MgUVEhsE89Bd0dgXvnWr4oRSYp GDZ1EUNhtUQmG4BryG9sYiKb OORlLWQbA2PwcPFcNPulJ171SG uxKzE6GLJhmmSbM4HsMBJsgNgh IqI2p8A2Sm2AUAFiZG12NDV5 xKZ0SF93NG47K3UjIrnaoXYsaM U+PHRhYmxlIHdpZHRoPScxMDAl GjPdiIzqEO4mKd2aUEAjLVPb pJdmsQAeFyFjf8zwQRUlNYaiGQ 0ooFraK0JspOT5YMNme2e9Uf97 T75mF9GfeSI+CZTxwZP8xLB8 lL2nQhHcYzV0WEbeO994YpQczO GcQqgxi5ypt2dnkWl6JhX4LIEr osFthPylUGF9w0OsBr92G57s IHdpZHRoPSIxNSUiIHZhbGlnbj 5bfX5qNv8+BEBwnQR8zHT7fM5x AsAhYwM5MNphX870QxSdrTPx Sylrc2ayn1jdxAg5UkHrELMknn XerQqtQMZ9c1QxPj48G4YphLvr y6ChPmq0hu72qPJte4N6jNA2 Q7BtYGKudkbqqJAtkPfuSJ0lRI ImostqUHMxuX7lXAHyC9o0GtPe MiR5NWeiE9DljeL6QDUbfHJj LGuzWLZ7K65rl9X8JKMvUWYdJB K1dDU2uK7vyOzbmrgwgMUbyPgk naIwtNntLCgpEUviE304NJCm yJnsZNKinP5hVMMhiRWwiWgjYT 4wNTBpbjsnPlNBTVBTRUwsIENI QVJMRVMgTDwvdGQ+PHRkIHN0 aPrjMFmqMYAfcA7yAJApB1c0Na WzEjS0DUqzJ1ZwOSOpzlmnQe45 bL0lWbJcOaC4PKohM9KtoxQ5 MGZecJHyYZtpERT8O60fx0M6NY VxABXiTOA2eGT5fY5yrYaovmuj bGVmdDsgdmVydGljYWwtYWxp B945VWVwvZorSfFzDvB5IyA3TN U3S0ChKca4PJXfoFmsQY9zvHKg NJoyNi7icUqtwYxcOL7nTIDj llnnRDLzfR3tOSRvyPHbwYfuAZ 0hJGTxpwgff260ToKjGZH3IKEy gNEdX9UrbA5wZvHnLOWeKLHn Q3OgdZOzJDvrO858YMspHxT2DP GnexMiD6HdTGRrnQbqRiO5y2G4 Uo78DVWWEJKrntrcrXE+PHRk THP7jTfnAXapCKMhnG3oAIUcS8 i8NnOqGbE3ZRnpF4CwGMDwyplh Ic76pW1qTgNuVwU6FWcbQ5Kc qjO8QRGjjUMoJIdeAXM7D31vn3 A5NUOzCFGnMWP7oIE7vU6fvSnb bjogbGVmdDsgdmVydGljYWwt KNbxH796XWGqhJrcQh2wrET7F1 OhPpt8OCEzuHsvIM3gsFBxVEss On2hmQpkpZmtYS6aTONvvksa FFJyeB6wAATenXFoqIvpPY4zVU Irkwpfv178DcEjFNC9MTMnlLUz U6XctR6hBoCuJNWfVWQwU5Xu qHDpRRioA705TDxrHzZ3UDBvzf YpC9MyJPHknMciOeQ8b8L6Hs9Y zKAzXSHzRS10QN40VB09Y7Du PjwvdGFibGU+PHRhYmxlIHdpZH UiKZegKZKtXnZgwThpYL7tPu5w EVJeIAFllDlbzUXqQvIrl8wv ILNjZVbbDK3tnQraL0LfwXV1CP Zjk0i4Rg78V68kO4JzcCD+PGNv zLU6oTE6gJ7oJgOlPuV3WCmz F860PjFlgCLwBtgwh1jvv7urkI j6UpZgJZDqitBgfWxuLTX5m6Ti Gc42W66dUYfdPYGhGVTjQYLw AUTttXjkso6htE7qSa2+PGNvbC Z8nTF2wF3wHjXyKcY9YYnlP592 TaCywUFiRceiI60lN0DpnSJ+ JHKfJon6NTVdjSzyVT3ieJUuAL wxYf9jLCY9WlUyUpXdEGglP3Pc EMMxjphdajnmiNT8WDBoDODc mN88Xx1vpPaaTe3cXKSrGHY9TZ FbyDKvW6RdsS0xEeNyCXKxXJSt J6UagYEnCLmtC331CVxtWhZ9 OGEeyvDgV6MhABFsiGjbLrT7w5 C8Wo7AqDcamMQqKS7rZnEpEKr0 D5TdOmh0GKSkvDttBU4lwSEh TWodTk6ajYbhbTygAG1cWOTkcp gne051RnAhu6lsEZEwzCViKAer WBP9O83fb1G1RIEnLOCzJCB3 qYS2gD1sgWsdwizdvFOxqYpwxr HexCxrDOibAZleR432FJPzuFyq HxWOLqi3F9SxNxu2RBNozXol PR6jqAQtEFrnHg2evFjplLebOF 2rIWRtvfasq700LyWwk3pmYUVo mDNwFOovDST8F97hp0O5LSTb FDKwJAK8pJQ2zM0reWczacffxM VzfBsmbcNkwRrjIXeqSUfcF680 VXXgrZwsKw9XDiq7F0BdWbe4 VMCjnEcsFM6mbCUgGAqkHv0mzF nzxGlvWZ3hSQTnoqzpf787OrLa h9csVWZglWNmOLgtGVF5H10l s9P2NWStKIXxEFX6fUV3cC4jaY lnbjogbGVmdDsgdmVydGljYWwt ORotU087LCPaaEutWqRntIFy OjwvdGQ+BX19dh79N0VmPdguYe w0XIQbJXL9bXN2qS1zDDXeDFaz i4I5zNU6W4YvydXpsw2kg7qp YXBz (more content not included)... Normal [facility] INSULINon 08-20-2018 Insulin 8.6 uIU/mL Normal 2.6-24.[address] [facility] Comment on above: Performed By: #### I NSULIN ####[facility] [address] [place] [address] CBC AUTO DIFFon 08-19-2018 Basophils (Bld) [#/Vol] 0.1 103/ul Normal 0.0-0.[address] [facility] Comment on above: Performed By: #### C BC ####[facility] [address] [place] [address]Lpaxja Zena Basophils/100 WBC (Bld) 1.1 % Normal 0.2-2.[address] [facility] Comment on above: Performed By: #### C BC ####[facility] [address] [place], [place] [id number] Zena Eosinophils (Bld) [#/Vol] 0.1 103/ul Normal 0.0-0.[address] [facility] Comment on above: Performed By: #### C BC ####[facility] [address] [place] [address]Ussdrl Zena Eosinophils/100 WBC (Bld) 1.8 % Normal 0.9-7.[address] [facility] Comment on above: Performed By: #### C BC ####[facility] [address] [place], [place] [id number] Zena Erythrocyte distribution width (RBC) [Ratio] 13.7 % Normal 11.0-15.[address] [facility] Comment on above: Performed By: #### C BC ####[facility] [address] [place], [place] [id number] Zena Hematocrit (Bld) [Volume fraction] 45.4 % Normal 42.0-54.[address] [facility] Comment on above: Performed By: #### C BC ####[facility] [address] [place] [address]34[address]Qchgvo Zena Hemoglobin (Bld) [Mass/Vol] 15.6 g/dL Normal 14.0-18.[address] [facility] Comment on above: Performed By: #### C BC ####[facility] [address] [place], [place] [id number] Zena IG # 0.05 10e3/ul Critically high 0.00-0.[address] [facility] Comment on above: Performed By: #### C BC ####[facility] [address] [place], [place] [address]Kdrknm Zena IG % 0.6 % Critically high 0.0-0.5 [facility] Comment on above: Performed By: #### C BC ####[facility] [address] [place], [place] [address]Qngirb Zena Lymphocytes (Bld) [#/Vol] 2.7 103/ul Normal 1.2-3.[address] [facility] Comment on above: Performed By: #### C BC ####[facility] [address] [place] [address] 875[address]Qqlqrz Zena Lymphocytes/100 WBC (Bld) 33.3 % Normal 20.5-60.0 [facility] Comment on above: Performed By: #### C BC ####[facility] [address] [place], [place] [id number] Zena MANUAL DIFF REQ NO Normal [facility] Comment on above: Performed By: #### C BC ####[facility] [address] [place] [address]Zwldia Zena MCH (RBC) [Entitic mass] 30.0 pg Normal 25.9-34.[address] [facility] Comment on above: Performed By: #### C BC ####[facility] [address] [place], [place] [phone] Zena MCHC (RBC) [Mass/Vol] 34.4 g/dL Normal 29.9-35.[address] [facility] Comment on above: Performed By: #### C BC ####[facility] [address] [place], [place] [id number] Zena MCV (RBC) [Entitic vol] 87.3 fL Normal 80.0-94.[address] [facility] Comment on above: Performed By: #### C BC ####[facility] [address] [place], [place] [phone] Zena Monocytes (Bld) [#/Vol] 0.8 103/ul Normal 0.3-0.[address] [facility] Comment on above: Performed By: #### C BC ####[facility] [address] [place], [place] [address]Hlausd Zena Monocytes/100 WBC (Bld) 10.0 % Normal 1.7-12.[address] [facility] Comment on above: Performed By: #### C BC ####[facility] [address] [place], [place] [address]Ssongj Zena Neutrophils (Bld) [#/Vol] 4.3 103/ul Normal 1.4-6.[address] [facility] Comment on above: Performed By: #### C BC ####[facility] [address] [place], [place] [address]Calqys Zena Neutrophils/100 WBC (Bld) 53.2 % Normal 43.0-75.[address] [facility] Comment on above: Performed By: #### C BC ####[facility] [address] [place] [address]Twilew Zena Platelet mean volume (Bld) [Entitic vol] 11.0 fL Normal 9.5-13.[address] [facility] Comment on above: Performed By: #### C BC ####[facility] [address] [place] [address]Lgyhdp Zena Platelets (Bld) [#/Vol] 203 103/ul Normal 150-[address] [facility] Comment on above: Performed By: #### C BC ####[facility] [address] [place] [address]Psingr Zena RBC (Bld) [#/Vol] 5.20 106/ul Normal 4.70-6.[address] [facility] Comment on above: Performed By: #### C BC ####[facility] [address] [place] [address]Zkinbu Zena WBC (Bld) [#/Vol] 8.0 103/ul Normal 4.0-11.[address] [facility] Comment on above: Performed By: #### C BC ####[facility] [address] [place] [address]Isbsve Zena GLYCOHEMOGLOBIN A1Con 2018 Glucose [Mass/Vol] 120 mg/dL Normal [facility] Comment on above: Performed By: #### A 1C ####[facility] [address] [place], [place] [address]Axaieo Zena HbA1c (Bld) [Mass fraction] 5.8 % Normal <=6.[address] [facility] Comment on above: Performed By: #### A 1C ####[facility] [address] [place], [place] [address]Ntlelx Zena LIPID PROFILEon 08-19-2018 CHOL-HDL RATIO NORM SEE BELOW Normal [facility] Comment on above: Result Comment: 3.3 - 4.4 LOW RISK 4.4 - 7.1 AVERAGE RISK 7.1 - 11.0 MODERATE RISK >11.0 HIGH RISK Performed By: #### C MP, PSASC, LIPID, URIC ####[facility] [address] [place] [address]Dpaxsy Zena Cholesterol [Mass/Vol] 217 mg/dL Critically high <=[address] [facility] Comment on above: Performed By: #### C MP, PSASC, LIPID, URIC ####[facility] [id number] [place], [place] [id number] Zena Cholesterol in HDL [Mass/Vol] > or = 60 mg/dl - LOW CARDIOVASCULAR RISK <40 mg/dl - HIGH CARDIOVASCULAR RISK Normal [facility] Comment on above: Performed By: #### C MP, PSASC, LIPID, URIC ####[facility] [id number] [place], [place] [address]Mdhoej Zena Cholesterol in HDL [Mass/Vol] 29 mg/dL Normal The [facility] Comment on above: Performed By: #### C MP, PSASC, LIPID, URIC ####[facility] [id number] [place], [place] [address]Jlqypa Zena Cholesterol in LDL [Mass/Vol] 152.2 mg/dL Normal The [facility] Comment on above: Performed By: #### C MP, PSASC, LIPID, URIC ####[facility] [id number] [place], [place] [address]Yufxdw Zena Cholesterol in LDL [Mass/Vol] SEE BELOW Normal The [facility] Comment on above: Result Comment: <100 mg/dl OPTIMAL 100 - 129 mg/dl NEAR OR ABOVE OPTIMAL 130 - 159 mg/dl BORDERLINE HIGH 160 - 189 mg/dl HIGH >190 mg/dl VERY HIGH Performed By: #### C MP, PSASC, LIPID, URIC ####[facility] [id number] [place], [place] [address]Skevvs Zena Cholesterol.total/Chol esterol in HDL [Mass ratio] 7.5 {ratio} Normal [facility] Comment on above: Performed By: #### C MP, PSASC, LIPID, URIC ####[facility] [id number] [place], [place] [address]Xavxrj Zena Triglyceride [Mass/Vol] 179 mg/dL Critically high <=[address] [facility] Comment on above: Performed By: #### C MP, PSASC, LIPID, URIC ####[facility] [id number] [place], [place] [address]Vydphy Zena VLDL CALC 35.8 mg/dL Normal [facility] Comment on above: Performed By: #### C MP, PSASC, LIPID, URIC ####[facility] [id number] [place], [place] [address]Qcswzo Zena OCC BLD IMMUNO SCREENon 07-28 OCCULT BLOOD Positive Normal NEGATIVE [facility] Comment on above: Performed By: #### O BSCRN ####[facility] [id number] [place] [id number] Zena PROF 14(COMP METB)on 019 Albumin [Mass/Vol] 4.1 g/dL Normal 3.5-5.0 [facility] Comment on above: Performed By: #### C BC #### [facility] [address] [place], [place] [address] Canelo Zena Albumin/Globulin [Mass ratio] 1.1 {ratio} Normal [facility] Comment on above: Performed By: #### C BC #### [facility] [address] [place], [place] [address] Canelo Zena ALP [Catalytic activity/Vol] 73 U/L Normal 38-[address] [facility] Comment on above: Performed By: #### C BC #### [facility] [address] [place] [id number] Canelo Zena ALT [Catalytic activity/Vol] 39 U/L Normal 21-[address] [facility] Comment on above: Performed By: #### C BC #### [facility] [address] [place] [id number] Canelo Zena Anion gap [Moles/Vol] 12.3 mmol/L Normal Th e [facility] Comment on above: Performed By: #### C BC #### [facility] [address] [place] [id number] Canelo Zena AST [Catalytic activity/Vol] 16 U/L Critically low 17-[address] [facility] Comment on above: Performed By: #### C BC #### [facility] [address] [place] [address] Canelo Zena Bilirubin Ql (U) 1.3 mg/dL Normal 0.2-1.[address] [facility] Comment on above: Performed By: #### C BC #### [facility] [address] [place] [address] Canelo Zena Calcium [Mass/Vol] 9.1 mg/dL Normal 8.4-10.[address] [facility] Comment on above: Performed By: #### C BC #### [facility] [address] [place] [address] Canelo Zena Chloride [Moles/Vol] 103 mmol/L Normal 98-[address] [facility] Comment on above: Performed By: #### C BC #### [facility] [address] [place] [address] Canelo Zena CO2 [Moles/Vol] 27.6 mmol/L Normal 22.0-30.[address] [facility] Comment on above: Performed By: #### C BC #### [facility] [address] [place], [place] [id number] Canelo Zena Creatinine [Mass/Vol] 1.12 mg/dL Normal 0.66-1.[address] [facility] Comment on above: Performed By: #### C BC #### [facility] [address] [place], [place] [address] Canelo Zena EGFR-AF KAZAKH >60 Normal >=60 [facility] Comment on above: Performed By: #### C BC #### [facility] [address] [id number] Canelo Zena EGFR-NON AF KAZAKH >60 Normal >=60 [facility] Comment on above: Performed By: #### C BC #### [facility] [address] [phone] Canelo Zena Globulin (S) [Mass/Vol] 3.7 g/dL Normal [facility] Comment on above: Performed By: #### C BC #### [facility] [address] [place] [address] Canelo Zena Glucose [Mass/Vol] 107 mg/dL Critically high 74-106 T [facility] Comment on above: Performed By: #### C BC #### [facility] [address] [place] [address] Canelo Zena Potassium [Moles/Vol] 3.9 mmol/L Normal 3.4-5.0 [facility] Comment on above: Performed By: #### C BC #### [facility] [address] [place], [place] [phone] Canelo Zena Protein [Mass/Vol] 7.8 g/dL Normal 6.1-8.2 [facility] Comment on above: Performed By: #### C BC #### [facility] [address] [place], [place] [phone] Canelo Zena Sodium [Moles/Vol] 139 mmol/L Normal 137-[address] [facility] Comment on above: Performed By: #### C BC #### [facility] [address] [place] [address] Canelo Zena Urea nitrogen [Mass/Vol] 13.0 mg/dL Normal 9.0-20.0 [facility] Comment on above: Performed By: #### C BC #### [facility] [address] [place], [place] [phone] Canelo Zena Urea nitrogen/Creatinine [Mass ratio] 11.6 mg/mg Normal [facility] Comment on above: Performed By: #### C BC #### [facility] [address] [phone] Caenlo Zena URIC ACID SERUMon 08-19-2018 Urate [Mass/Vol] 6.3 mg/dL Normal 3.5-8.[address] [facility] Comment on above: Performed By: #### C MP, PSASC, LIPID, URIC ####[facility] [id number] [place], [place] [address]Ravipz Zena BNPon 06-08-2018 Natriuretic peptide B (Bld) [Mass/Vol] 268.0 pg/mL Normal <=900.[address] [facility] Comment on above: Performed By: #### C BC #### [facility] [address] [phone] Canelo Zena CBC AUTO DIFFon 06-08-2018 Basophils (Bld) [#/Vol] 0.1 103/ul Normal 0.0-0.[address] [facility] Comment on above: Performed By: #### C BC #### [facility] [address] [address] Canelo Zena Basophils/100 WBC (Bld) 1.1 % Normal 0.2-2.[address] [facility] Comment on above: Performed By: #### C BC #### [facility] [address] [address] Canelo Zena Eosinophils (Bld) [#/Vol] 0.1 103/ul Normal 0.0-0.[address] [facility] Comment on above: Performed By: #### C BC #### [facility] [address] [address] Canelo Zena Eosinophils/100 WBC (Bld) 0.9 % Normal 0.9-7.[address] [facility] Comment on above: Performed By: #### C BC #### [facility] [address] [phone] Canelo Zena Erythrocyte distribution width (RBC) [Ratio] 14.6 % Normal 11.0-15.[address] [facility] Comment on above: Performed By: #### C BC #### [facility] [address] [address] Canelo Zena Hematocrit (Bld) [Volume fraction] 47.3 % Normal 42.0-54.[address] [facility] Comment on above: Performed By: #### C BC #### [facility] [address] [place] [address] Canelo Zena Hemoglobin (Bld) [Mass/Vol] 16.1 g/dL Normal 14.0-18.[address] [facility] Comment on above: Performed By: #### C BC #### [facility] [address] [place] [address] Canelo Zena IG # 0.03 10e3/ul Normal 0.00-0.[address] [facility] Comment on above: Performed By: #### C BC #### [facility] [address] [place] [address] Canelo Zena IG % 0.3 % Normal 0.0-0.[address] [facility] Comment on above: Performed By: #### C BC #### [facility] [address] [place] [address] Canelo Zena Lymphocytes (Bld) [#/Vol] 3.0 103/ul Normal 1.2-3.[address] [facility] Comment on above: Performed By: #### C BC #### [facility] [address] [place] [address] Canelo Freitas Lymphocytes/100 WBC (Bld) 31.5 % Normal 20.5-60.[address] [facility] Comment on above: Performed By: #### C BC #### [facility] [address] [place] [address] Canelo Freitas MANUAL DIFF REQ NO Normal [facility] Comment on above: Performed By: #### C BC #### [facility] [address] [place], [place] [phone] Canelo Fniken MCH (RBC) [Entitic mass] 29.2 pg Normal 25.9-34.[address] [facility] Comment on above: Performed By: #### C BC #### [facility] [address] [place], [place] [phone] Canelo Finken MCHC (RBC) [Mass/Vol] 34.0 g/dL Normal 29.9-35.[address] [facility] Comment on above: Performed By: #### C BC #### [facility] [address] [place], [place] [phone] Canelo Zena MCV (RBC) [Entitic vol] 85.8 fL Normal 80.0-94.[address] [facility] Comment on above: Performed By: #### C BC #### [facility] [address] [place], [place] [phone] Canelo Zena Monocytes (Bld) [#/Vol] 1.0 103/ul Critically high 0.3-0.[address] [facility] Comment on above: Performed By: #### C BC #### [facility] [address] [place] [address] Canelo Zena Monocytes/100 WBC (Bld) 10.8 % Normal 1.7-12.[address] [facility] Comment on above: Performed By: #### C BC #### [facility] [address] [place] [address] Canelo Zena Neutrophils (Bld) [#/Vol] 5.3 103/ul Normal 1.4-6.[address] [facility] Comment on above: Performed By: #### C BC #### [facility] [address] [place] [address] Canelo Zena Neutrophils/100 WBC (Bld) 55.4 % Normal 43.0-75.[address] [facility] Comment on above: Performed By: #### C BC #### [facility] [address] [place], [place] [phone] Canelo Zena Platelet mean volume (Bld) [Entitic vol] 10.2 fL Normal 9.5-13.[address] [facility] Comment on above: Performed By: #### C BC #### [facility] [address] [place], [place] [phone] Canelo Zena Platelets (Bld) [#/Vol] 205 103/ul Normal 150-[address] [facility] Comment on above: Performed By: #### C BC #### [facility] [address] [place], [place] [phone] Canelo Zena RBC (Bld) [#/Vol] 5.51 106/ul Normal 4.70-6.[address] [facility] Comment on above: Performed By: #### C BC #### [facility] [address] [place], [place] [phone] Caneloravindra Freitas WBC (Bld) [#/Vol] 9.6 103/ul Normal 4.0-11.[address] [facility] Comment on above: Performed By: #### C BC #### [facility] [address] [place], [place] [phone] Canelo Freitas PROF 14(COMP METB)on 019 Albumin [Mass/Vol] 4.0 g/dL Normal 3.5-5.0 [facility] Comment on above: Performed By: #### C BC #### [facility] [address] [place], [place] [phone] Canelo Zena Albumin/Globulin [Mass ratio] 1.2 {ratio} Normal [facility] Comment on above: Performed By: #### C BC #### [facility] [address] [place], [place] [phone] Canelo Zena ALP [Catalytic activity/Vol] 77 U/L Normal 38-[address] [facility] Comment on above: Performed By: #### C BC #### [facility] [address] [place], [place] [phone] Canelo Zena ALT [Catalytic activity/Vol] 29 U/L Normal 21-[address] [facility] Comment on above: Performed By: #### C BC #### [facility] [address] [place], [place] [phone] Canelo Zena Anion gap [Moles/Vol] 10.8 mmol/L Normal [facility] Comment on above: Performed By: #### C BC #### [facility] [address] [place], [place] [phone] Canelo Zena AST [Catalytic activity/Vol] 16 U/L Critically low 17-[address] [facility] Comment on above: Performed By: #### C BC #### [facility] [address] [place], [place] [phone] Canelo Zena Bilirubin Ql (U) 1.0 mg/dL Normal 0.2-1.3 [facility] Comment on above: Performed By: #### C BC #### [facility] [address] [place] [address] Canelo Zena Calcium [Mass/Vol] 9.2 mg/dL Normal 8.4-10.2 [facility] Comment on above: Performed By: #### C BC #### [facility] [address] [place] [address] Canelo Zena Chloride [Moles/Vol] 101 mmol/L Normal 98-107 [facility] Comment on above: Performed By: #### C BC #### [facility] [address] [place] [address] Canelo Zena CO2 [Moles/Vol] 29.4 mmol/L Normal 22.0-30.0 [facility] Comment on above: Performed By: #### C BC #### [facility] [address] [place] [address] Canelo Zena Creatinine [Mass/Vol] 1.28 mg/dL Critically high 0.66-1.25 [facility] Comment on above: Performed By: #### C BC #### [facility] [address] [place], [place] [id number] Canelo Zena EGFR-AF KAZAKH >60 Normal >=60 [facility] Comment on above: Performed By: #### C BC #### [facility] [address] [place] [address] Canelo Zena EGFR-NON AF KAZAKH 56 mL/min/1.73m2 Critically low >=60 [facility] Comment on above: Performed By: #### C BC #### [facility] [address] [place], [place] [phone] Cnaelo Zena Globulin (S) [Mass/Vol] 3.3 g/dL Normal [facility] Comment on above: Performed By: #### C BC #### [facility] [address] [place] [address] Canelo Zena Glucose [Mass/Vol] 120 mg/dL Critically high 74-106 [facility] Comment on above: Performed By: #### C BC #### [facility] [address] [place], [place] [address] Canelo Zena Potassium [Moles/Vol] 4.2 mmol/L Normal 3.4-5.0 [facility] Comment on above: Performed By: #### C BC #### [facility] [address] [place], [place] [address] Canelo Zena Protein [Mass/Vol] 7.3 g/dL Normal 6.1-8.2 [facility] Comment on above: Performed By: #### C BC #### [facility] [address] [place], [place] [address] Canelo Zena Sodium [Moles/Vol] 137 mmol/L Normal 137-145 [facility] Comment on above: Performed By: #### C BC #### [facility] [address] [place] [address] Canelo Zena Urea nitrogen [Mass/Vol] 17.0 mg/dL Normal 9.0-20.[address] [facility] Comment on above: Performed By: #### C BC #### [facility] [address] [phone] Canelo Zena Urea nitrogen/Creatinine [Mass ratio] 13.3 mg/mg Normal [facility] Comment on above: Performed By: #### C BC #### [facility] [address] [place], [place] [phone] Canelo Zena T3, TOTAL (TRIIODOTHYRONINE) on 06-08-2018 T3, TOTAL 109 ng/dL Normal 71-[address] [facility] Comment on above: Performed By: #### C BC #### [facility] [address] [place], [place] [address] Canelo Zena BNPon 06-07-2018 Natriuretic peptide B (Bld) [Mass/Vol] 370.0 pg/mL Normal <=900.[address] [facility] Comment on above: Performed By: #### B MP, BNP, LIVER, LIPA, CMADM #### [facility] [address] [place], [place] [address] Canelo Zena CARDIAC JEFF 3-6-9on 019 CK [Catalytic activity/Vol] 182 U/L Critically high 55-[address] [facility] Comment on above: Performed By: #### C BC #### [facility] [address] [place] [address] Canelo Zena CK.MB [Mass/Vol] 3.00 ng/mL Critically high <=2.37 [facility] Comment on above: Result Comment: test repeated critical value verified Performed By: #### C BC #### [facility] [address] [place] [address] Canelo Zena INR Coag (Bld) [Relative time] SEE BELOW Normal [facility] Comment on above: Result Comment: <0.0 34 ng/ml NEGATIVE 0.034-0.119 INDETERMINATE 0.120 AMI CUT OFF Performed By: #### C BC #### [facility] [address] [place] [address] Canelo Zena TROP 0.022 ng/mL Normal <=0.034 [facility] Comment on above: Performed By: #### C BC #### [facility] [address] [place] [address] Canelo Zena CK [Catalytic activity/Vol] 179 U/L Critically high 55-170 [facility] Comment on above: Performed By: #### C BC #### [facility] [address] [place] [address] Canelo Zena CK.MB [Mass/Vol] 3.21 ng/mL Critically high <=2.37 [facility] Comment on above: Result Comment: Test repeated. Critical value verified. Performed By: #### C BC #### [facility] [address] [place] [address] Canelo Zena INR Coag (Bld) [Relative time] SEE BELOW Normal [facility] Comment on above: Result Comment: <0.0 34 ng/ml NEGATIVE 0.034-0.119 INDETERMINATE 0.120 AMI CUT OFF Performed By: #### C BC #### [facility] [address] [place] [address] Canelo Zena TROP <0.017 Normal <=0.034 [facility] Comment on above: Performed By: #### C BC #### [facility] [address] [place], [place] [address] Canelo Freitas CK [Catalytic activity/Vol] 185 U/L Critically high 55-[address] [facility] Comment on above: Performed By: #### C MREP ####[facility] [id number] [place], [place] [address]Vpul[place] Zena CK.MB [Mass/Vol] 3.31 ng/mL Critically high <=2.[address] [facility] Comment on above: Result Comment: Test repeated. Critical value verified. Performed By: #### C MREP ####[facility] [address] [place] [address]Gerken Zena INR Coag (Bld) [Relative time] SEE BELOW Normal [facility] Comment on above: Result Comment: <0.0 34 ng/ml NEGATIVE 0.034-0.119 INDETERMINATE 0.120 AMI CUT OFF Performed By: #### C MREP ####[facility] [address] [place] [id number] Zena TROP <0.017 Normal <=0.[address] [facility] Comment on above: Performed By: #### C MREP ####[facility] [address] [place] [id number] Freitas CARDIAC JEFF ADMITon 019 CK [Catalytic activity/Vol] 202 U/L Critically high 55-[address] [facility] Comment on above: Result Comment: Test repeated. Critical value verified. Performed By: #### B MP, BNP, LIVER, LIPA, CMADM ####[facility] [id number] [place], [place] [address]Dluhgj Zena CK.MB [Mass/Vol] 3.20 ng/mL Critically high <=2.[address] [facility] Comment on above: Result Comment: Test repeated. Critical value verified. Performed By: #### B MP, BNP, LIVER, LIPA, CMADM ####[facility] [address] [place] [id number] Zena INR Coag (Bld) [Relative time] SEE BELOW Normal [facility] Comment on above: Result Comment: <0.0 34 ng/ml NEGATIVE 0.034-0.119 INDETERMINATE 0.120 AMI CUT OFF Performed By: #### B MP, BNP, LIVER, LIPA, CMADM ####[facility] [address] [place] [id number] Zena LISA 116.0 ng/mL Normal <=121.[address] [facility] Comment on above: Performed By: #### B MP, BNP, LIVER, LIPA, CMADM ####[facility] [id number] [place], [place] [address]Slibpk Zena TROP <0.017 Normal <=0.[address] [facility] Comment on above: Performed By: #### B MP, BNP, LIVER, LIPA, CMADM ####[facility] [address] [place] [id number] Zena CBC AUTO DIFFon 06-07-2018 Basophils (Bld) [#/Vol] 0.1 103/ul Normal 0.0-0.1 [facility] Comment on above: Performed By: #### C BC #### [facility] [address] [place], [place] [address] Canelo Zena Basophils/100 WBC (Bld) 1.1 % Normal 0.2-2.0 [facility] Comment on above: Performed By: #### C BC #### [facility] [address] [place], [place] [address] Canelo Zena Eosinophils (Bld) [#/Vol] 0.1 103/ul Normal 0.0-0.[address] [facility] Comment on above: Performed By: #### C BC #### [facility] [address] [place], [place] [address] Canelo Zena Eosinophils/100 WBC (Bld) 1.3 % Normal 0.9-7.[address] [facility] Comment on above: Performed By: #### C BC #### [facility] [address] [place], [place] [address] Canelo Zena Erythrocyte distribution width (RBC) [Ratio] 14.5 % Normal 11.0-15.[address] [facility] Comment on above: Performed By: #### C BC #### [facility] [address] [phone] Canelo Zena Hematocrit (Bld) [Volume fraction] 48.7 % Normal 42.0-54.0 [facility] Comment on above: Performed By: #### C BC #### [facility] [address] [phone] Canelo Zena Hemoglobin (Bld) [Mass/Vol] 17.0 g/dL Normal 14.0-18.[address] [facility] Comment on above: Performed By: #### C BC #### [facility] [address] [phone] Canelo Zena IG # 0.03 10e3/ul Normal 0.00-0.03 [facility] Comment on above: Performed By: #### C BC #### [facility] [address] [place] [address] Canelo Zena IG % 0.4 % Normal 0.0-0.5 [facility] Comment on above: Performed By: #### C BC #### [facility] [address] [place], [place] [phone] Canelo Zena Lymphocytes (Bld) [#/Vol] 2.5 103/ul Normal 1.2-3.8 [facility] Comment on above: Performed By: #### C BC #### [facility] [address] [place], [place] [phone] Canelo Zena Lymphocytes/100 WBC (Bld) 30.8 % Normal 20.5-60.[address] [facility] Comment on above: Performed By: #### C BC #### [facility] [address] [place], [place] [phone] Caneol Zena MANUAL DIFF REQ NO Normal [facility] Comment on above: Performed By: #### C BC #### [facility] [address] [place], [place] [phone] Canelo Zena MCH (RBC) [Entitic mass] 29.2 pg Normal 25.9-34.0 [facility] Comment on above: Performed By: #### C BC #### [facility] [address] [place], [place] [address] Canelo Zena MCHC (RBC) [Mass/Vol] 34.9 g/dL Normal 29.9-35.[address] [facility] Comment on above: Performed By: #### C BC #### [facility] [address] [place], [place] [address] Canelo Zena MCV (RBC) [Entitic vol] 83.5 fL Normal 80.0-94.[address] [facility] Comment on above: Performed By: #### C BC #### [facility] [address] [place] [address] Canelo Zena Monocytes (Bld) [#/Vol] 0.8 103/ul Normal 0.3-0.[address] [facility] Comment on above: Performed By: #### C BC #### [facility] [address] [place] [address] Canelo Zena Monocytes/100 WBC (Bld) 9.8 % Normal 1.7-12.[address] [facility] Comment on above: Performed By: #### C BC #### [facility] [address] [place] [address] Canelo Zena Neutrophils (Bld) [#/Vol] 4.5 103/ul Normal 1.4-6.[address] [facility] Comment on above: Performed By: #### C BC #### [facility] [address] [place] [address] Canelo Zena Neutrophils/100 WBC (Bld) 56.6 % Normal 43.0-75.[address] [facility] Comment on above: Performed By: #### C BC #### [facility] [facility] [address] [place] [address] Canelo Zena Platelet mean volume (Bld) [Entitic vol] 10.0 fL Normal 9.5-13.[address] [facility] Comment on above: Performed By: #### C BC #### [facility] [address] [place] [address] Canelo Zena Platelets (Bld) [#/Vol] 202 103/ul Normal 150-[address] [facility] Comment on above: Performed By: #### C BC #### [facility] [address] [place], [place] [address] Canelo Freitas RBC (Bld) [#/Vol] 5.83 106/ul Normal 4.70-6.[address] [facility] Comment on above: Performed By: #### C BC #### [facility] [address] [place], [place] [address] Canelo Freitas WBC (Bld) [#/Vol] 8.0 103/ul Normal 4.0-11.0 [facility] Comment on above: Performed By: #### C BC #### [facility] [address] [place], [place] [address] HEAD WO CONon 06-07-2018 CT HEAD WO CON [address] [place] [id number] Patient: VIRAJ DOHERTY Exam Date: 06/07/2018 : 1955 Gender:M Ordering : DR DELIO BOYER D.O. Admission #: [id number] Family : DR MARILYN PATRICK . Order #: [id number] CLICK HERE TO VIEW EXAM RADIOLOGY REPORT PROCEDURE: CT HEAD WITHOUT CONTRAST COMPARISON: None. INDICATIONS: Acute left facial numbness, slurred speech TECHNIQUE: Axial CT images were obtained without IV contrast. DOSE: 1127 mGycm FINDINGS: BRAIN: 2.5 x 1.0 x 0.7 cm area of decreased density within the posterior lateral right frontal lobe deep white matter sending from near the cortex to the body of the lateral ventricle. No edema, hemorrhage, mass, acute infarction, or inappropriate atrophy. CSF SPACES: No hydrocephalus, subarachnoid hemorrhage, or mass. Appropriate for age. SKULL: No fracture, mass, or other significant visible lesion. SINUSES: No significant mucosal thickening or fluid on the limited views. ORBITS: No appreciable abnormality on the limited views. OTHER: Negative CONCLUSION: 1. No intracranial hemorrhage. 2. Area of decreased attenuation within the deep white matter of the posterior right frontal lobe; nonspecific but suggestive of late subacute to early chronic ischemic changes. Edema and mass are less likely. Dictated by: Angus Mcfarlane M.D. on 06/07/2018 at 11:20 Approved by: Angus Mcfarlane M.D. on 06/07/2018 at 11:25 Normal [address] [facility] DRUG SCREEN RAPID (URINE)on 06-07-2018 AMP Negative Normal NEGATIVE The [facility] Comment on above: Performed By: #### D RUGRPD ####[facility] Wkcuxcqskr[address] [place] BAR Negative Normal NEGATIVE The [facility] Comment on above: Performed By: #### D RUGRPD ####[facility] Wtzognbzzq[address] [place] BUP Negative Normal NEGATIVE [facility] Comment on above: Performed By: #### D RUGRPD ####[facility] I[address]floky[address] BZO Negative Normal NEGATIVE The [facility] Comment on above: Performed By: #### D RUGRPD ####[facility] Khopgothgr[address] IAM Negative Normal NEGATIVE [facility] Comment on above: Performed By: #### D RUGRPD ####[facility] Rmqlidqunf[address] CUT-OFFS SEE BELOW Normal The [facility] Comment on above: Result Comment: AMP (Amphetamine): 500ng/mL, BAR (Barbituates): 200 ng/mL, BZO (Benzodiazepines): 150 ng/mL, BUP (Buprenorphine): 10 ng/mL, IAM (Cocaine): 150 ng/mL, mAMP (Methamphetamine): 500 ng/mL, MTD (Methadone): 200 ng/mL, OPI (Opiates): 100 ng/mL or 2000 ng/mL, OXY (Oxycodone): 100 ng/mL, PCP (Phencyclidine): 25 ng/mL, PPX (Propoxyphene): 300 ng/mL, THC (Cannabinoids): 50 ng/mL, TCA (Trycyclic Antidepressants): 300 ng/mL Performed By: #### D RUGRPD ####[facility] [address] [place] [address] DRUG CUT HEADER DRUG CLASS TEST SYST EM CUT-OFF CONCENTRATIONS ARE FOLLOWS: Normal [facility] Comment on above: Performed By: #### D RUGRPD ####[facility] [address] [place] [id number] Zena mAMP Negative Normal NEGATIVE [facility] Comment on above: Performed By: #### D RUGRPD ####[facility] [address] [place], [place] [address]Nrvrfv Zena MTD Negative Normal NEGATIVE [facility] Comment on above: Performed By: #### D RUGRPD ####[facility] [address] [place] [id number] Zena OPI Negative Normal NEGATIVE [facility] Comment on above: Performed By: #### D RUGRPD ####[facility] [address]26[address] [place], [place] [address]Ceybgv Zena OXY Negative Normal NEGATIVE The [facility] Comment on above: Performed By: #### D RUGRPD ####[facility] Mgjlymwtcr[address] [place] PCP Negative Normal NEGATIVE [facility] Comment on above: Performed By: #### D RUGRPD ####[facility] Rbpnsjxggr[address] [place] PPX Negative Normal NEGATIVE [facility] Comment on above: Performed By: #### D RUGRPD ####[facility] L[address]kez[address] [place] [phone] Zena TCA Negative Normal NEGATIVE [facility] Comment on above: Performed By: #### D RUGRPD ####[facility] Mzjvprnxzx[address] [place] THC Positive Normal NEGATIVE [facility] Comment on above: Performed By: #### D RUGRPD ####[facility] Fvaityrice[address] [place] ECHOCARDIO M/2D COMPLETEon 0 06-07-2018 ECHOCARDIO M/2D COMPLETE [address] [place] [address] Patient: VIRAJ DOHERTYDiaz Exam Date: 06/07/2018 : 1955 Gender:M Ordering : DR MARILYN PATRICK . Admission #: [id number] Family : Order #: [id number] CLICK HERE TO VIEW EXAM ECHOCARDIOGRAM REPORT PROCEDURE: CARDIO PULMONARY ECHOCARDIO M/2D COMP INDICATIONS: CVA symptoms COMPARISON: None. DESCRIPTION: COMPLETE ECHOCARDIOGRAM Real-time transthoracic echocardiography with 2D, M-mode, spectral and color flow Doppler performed. QUALITY: Technical quality was good. LEFT VENTRICLE: Normal chamber size. Mild concentric left ventricular hypertrophy. No left ventricular outflow obstruction. LV EF: Normal left ventricular ejection fraction, (>55%). DIASTOLIC: ATRIAL SEPTUM: Intact atrial septum. LEFT ATRIUM: Normal chamber size. RIGHT ATRIUM: Normal chamber size. RIGHT VENTRICLE: Normal chamber size. Normal right ventricular function. TRICUSPID VALVE: Normal mobility and thickness. Normal with trace regurgitation. MITRAL VALVE: Normal mobility and thickness. There is no mitral annular calcification. Trace mitral regurgitation. AORTIC VALVE: Normal trileaflet appearance. No visible sclerosis. Normal leaflet mobility. No aortic regurgitation. AORTIC ROOT: Normal diameter and appearance. PULMONIC VALVE: Normal thickness and mobility. Normal with Trace regurgitation. PERICARDIUM: No evidence of pericardial effusion. IVC: Collapes with inspirations. PLEURA: CONCLUSION: Mild left ventricular hypertrophy Otherwise normal study Indication of CVA may wish to repeat study with agitated saline Adult Echocardiography Procedure Report Left Ventricle LVEDD (3.7 - 5.6 cm): 4.21 cm LVESD (2.2 - 4.0 cm): 2.60 cm LVIVS thickness (0.6 - 1.2 cm): 1.36 cm LVPW thickness (0.5 - 1.0 cm): 1.08 cm e': 7.02 cm/s E - e': 7.80 LVOT Area (cm2): 3.80 cm2 LVOT Diameter 2.20 cm Left Ventricular Ejection Fraction: 68.90 % Left Atrium LA Volume Index (2D A2C): 24 ml/m2 Left Atrium Systolic Dimension: 3.80 cm Left Atrium Systolic Area(A2C): 17.00 cm2 Left Atrium Systolic Area(A4C): 14.40 cm2 Left Atrium Systolic Volume(A2C): 36302 mm3 Left Atrium Systolic Volume(A4C): 22952 mm3 Mitral Valve MV E to A Ratio: 0.90 Mitral Valve A-Wave Peak Velocity: 64.20 cm/s Mitral Valve E-Wave Peak Velocity: 54.80 cm/s Deceleration Time: 317 ms Right Ventricle Aorta AO Root Diam: 2.70 cm Aortic Valve AoV Area (Peak Lopez): 3.49 cm2 Peak Velocity(Antegrade Flow): 136.00 cm/s Peak Gradient(Antegrade Flow): 7 mm[Hg] Tricuspid Valve Pulmonic Valve Peak Velocity: 149.00 cm/s Peak Gradient: 9 mm[Hg] Right Atrium Dictated by: Guzman Matias M.D. on 06/07/2018 at 16:44 Approved by: Guzman Matias M.D. on 06/07/2018 at 16:47 Normal [address] [facility] ER URINE PROFILEon 9 Bilirubin [Mass/Vol] Negative Normal NEGATIVE [facility] Comment on above: Performed By: #### E RUR ####[facility] [address] [place] [address] [place] BLOOD Negative Normal NEGATIVE [facility] Comment on above: Performed By: #### E RUR ####[facility] [address] [place] [address] [place] Clarity (U) CLEAR Normal [facility] Comment on above: Performed By: #### E RUR ####[facility] [address] [place] [address] [place] Color (U) LT. YELLOW Normal YELLOW [facility] Comment on above: Performed By: #### E RUR ####[facility] [address] [place] [address] Z[place] ERUAHD A micrscopic examina tion will be performed if indicated. Normal The [facility] Comment on above: Performed By: #### E RUR ####[facility] [address] [place] [address] Z[place] Glucose [Mass/Vol] Negative Normal NEGATIVE [facility] Comment on above: Performed By: #### E RUR ####[facility] [address] [place] [address] Z[place] Ketones Ql (U) Negative Normal NEGATIVE [facility] Comment on above: Performed By: #### E RUR ####[facility] Mmhpvjghbl0417 [place] [id number] Freitas Nitrite Ql (U) Negative Normal NEGATIVE [facility] Comment on above: Performed By: #### E RUR ####[facility] Z[address]j3014 [place] [id number] Freitas pH (Bld) 6.5 Normal 5-9 [facility] Comment on above: Performed By: #### E RUR ####[facility] Ncwwonenvq6798 [place] [id number] Freitas Protein (U) [Mass/Vol] Negative Normal Th [facility] Comment on above: Performed By: #### E RUR ####[facility] J[address]km[address]imw7364 [place] [address]Canelo Freitas SPEC GRAVITY 1.010 Normal 1.005-<=1.0 25 [facility] Comment on above: Performed By: #### E RUR ####[facility] [address] [place], [place] [address]Canelo Freitas UR MICRO IND NOT INDICATED Normal [facility] Comment on above: Performed By: #### E RUR ####[facility] [address] [place], [place] [address]Canelo Freitas Urobilinogen Qn (U) 0.2 EU/dl Normal [facility] Comment on above: Performed By: #### E RUR ####[facility] [address] [place], [place] [address]Canelo Freitas WBC (Bld) [#/Vol] Negative Normal NEGATIVE [facility] Comment on above: Performed By: #### E RUR ####[facility] Yguwvetcew[address]67 [place] [address]Canelo Freitas GLYCOHEMOGLOBIN A1Con 2018 Glucose [Mass/Vol] 120 mg/dL Normal [facility] Comment on above: Performed By: #### C BC #### [facility] [address] [place] [phone] Canelo Freitas HbA1c (Bld) [Mass fraction] 5.8 % Normal <=6.0 [facility] Comment on above: Performed By: #### C BC #### [facility] [address] [place] [address] Canelo Zena LIPASEon 06-07-2018 Lipase [Catalytic activity/Vol] 167.0 U/L Normal 23.0-300.0 [facility] Comment on above: Performed By: #### B MP, BNP, LIVER, LIPA, CMADM #### [facility] [address] [place] [address] Canelo Zena LIPID PROFILEon 06-07-2018 CHOL-HDL RATIO NORM SEE BELOW Normal [facility] Comment on above: Result Comment: 3.3 - 4.4 LOW RISK 4.4 - 7.1 AVERAGE RISK 7.1 - 11.0 MODERATE RISK >11.0 HIGH RISK Performed By: #### C BC #### [facility] [address] [place], [place] [phone] Canelo Zena Cholesterol [Mass/Vol] 236 mg/dL Critically high <=200 [facility] Comment on above: Performed By: #### C BC #### [facility] [address] [place] [address] Canelo Zena Cholesterol in HDL [Mass/Vol] 31 mg/dL Normal [facility] Comment on above: Performed By: #### C BC #### [facility] [address] [place] [address] Canelo Zena Cholesterol in HDL [Mass/Vol] > or = 60 mg/dl - LOW CARDIOVASCULAR RISK <40 mg/dl - HIGH CARDIOVASCULAR RISK Normal [facility] Comment on above: Performed By: #### C BC #### [facility] [address] [place] [address] Canelo Zena Cholesterol in LDL [Mass/Vol] 161.2 mg/dL Normal [facility] Comment on above: Performed By: #### C BC #### [facility] [address] [place] [address] Canelo Z[place] Cholesterol in LDL [Mass/Vol] SEE BELOW Normal [facility] Comment on above: Result Comment: <100 mg/dl OPTIMAL 100 - 129 mg/dl NEAR OR ABOVE OPTIMAL 130 - 159 mg/dl BORDERLINE HIGH 160 - 189 mg/dl HIGH >190 mg/dl VERY HIGH Performed By: #### C BC #### [facility] [address] [place], [place] [phone] Canelo Zena Cholesterol.total/Chol esterol in HDL [Mass ratio] 7.6 {ratio} Normal [facility] Comment on above: Performed By: #### C BC #### [facility] [address] [place] [address] Canelo Zena Triglyceride [Mass/Vol] 219 mg/dL Critically high <=[address] [facility] Comment on above: Performed By: #### C BC #### [facility] [address] [place] [address] Canelo Zena VLDL CALC 43.8 mg/dL Normal [facility] Comment on above: Performed By: #### C BC #### [facility] [address] [place], [place] [phone] Canelo Zena LIVER PROFILEon 06-07-2018 Albumin [Mass/Vol] 4.4 g/dL Normal 3.5-5.0 [facility] Comment on above: Performed By: #### B MP, BNP, LIVER, LIPA, CMADM #### [facility] [address] [place] [address] Canelo Zena Albumin/Globulin [Mass ratio] 1.2 {ratio} Normal [facility] Comment on above: Performed By: #### B MP, BNP, LIVER, LIPA, CMADM #### [facility] [address] [place] [address] Canelo Zena ALP [Catalytic activity/Vol] 83 U/L Normal 38-[address] [facility] Comment on above: Performed By: #### B MP, BNP, LIVER, LIPA, CMADM #### [facility] [address] [place] [address] Canelo Zena ALT [Catalytic activity/Vol] 34 U/L Normal 21-[address] [facility] Comment on above: Performed By: #### B MP, BNP, LIVER, LIPA, CMADM #### [facility] [address] [place] [address] Canelo Zena AST [Catalytic activity/Vol] 23 U/L Normal 17-[address] [facility] Comment on above: Performed By: #### B MP, BNP, LIVER, LIPA, CMADM #### [facility] [address] [place] [phone] [place]elo Zena BILI, CONJUGATED 0.2 mg/dL Normal 0.0-0.[address] [facility] Comment on above: Performed By: #### B MP, BNP, LIVER, LIPA, CMADM #### [facility] [address] [place], [place] [address] Canelo Zena Bilirubin Ql (U) 0.9 mg/dL Normal 0.2-1.[address] [facility] Comment on above: Performed By: #### B MP, BNP, LIVER, LIPA, CMADM #### [facility] [address] [place], [place] [address] Canelo Zena Globulin (S) [Mass/Vol] 3.6 g/dL Normal [facility] Comment on above: Performed By: #### B MP, BNP, LIVER, LIPA, CMADM #### [facility] [address] [place], [place] [address] [place] Z[place] Protein [Mass/Vol] 8.0 g/dL Normal 6.1-8.[address] [facility] Comment on above: Performed By: #### B MP, BNP, LIVER, LIPA, CMADM #### [facility] [address] [place], [place] [address] [place] Zena MAGNESIUMon 06-07-2018 Magnesium [Mass/Vol] 2.1 mg/dL Normal 1.6-2.[address] [facility] Comment on above: Performed By: #### T SH, MG, T4 ####[facility] [address] [place], [place] [address]Xntwsz Zena MRI BRAIN WO CONon 9 MRI BRAIN WO CON [address] [place] [address] Patient: VIRAJ DOHERTY Exam Date: 06/07/2018 : 1955 Gender:M Ordering : DR MARILYN PATRICK . Admission #: [id number] Family : Order #: [id number] CLICK HERE TO VIEW EXAM RADIOLOGY REPORT PROCEDURE: MRI BRAIN WITHOUT CONTRAST COMPARISON: CT HEAD WO CON, 06/07/2018. INDICATIONS: Acute cerebrovascular accident, hypertension TECHNIQUE: A variety of imaging planes and parameters were utilized for visualization of suspected pathology. Images were performed without contrast. FINDINGS: CEREBRUM: 3.0 x 0.9 cm oval hyperintense area on the diffusion-weighted sequences at the right frontal parietal junction. This also demonstrates low signal on the ADC and mild T2 signal on the FLAIR and T2 sequences consistent with subacute ischemic infarction. Scattered small T2 hyperintensities within the deep white matter suggestive of chronic small vessel ischemic changes. CEREBELLUM: No edema, hemorrhage, mass, acute infarction, or inappropriate atrophy. BRAINSTEM: No edema, hemorrhage, mass, acute infarction, or inappropriate atrophy. CSF SPACES: Ventricles, cisterns, and sulci are appropriate for age. No hydrocephalus, subarachnoid hemorrhage, or mass. SKULL: No mass or other significant visible lesion. SINUSES: Limited views demonstrate no significant mucosal thickening or fluid. ORBITS: Limited views are unremarkable. OTHER: Negative. CONCLUSION: 1. Subacute ischemic infarction within the right frontal lobe/frontal parietal region, consistent with findings on the recent CT study. Dictated by: Angus Mcfarlane M.D. on 06/07/2018 at 15:43 Approved by: Angus Mcfarlane M.D. on 06/07/2018 at 15:55 Normal [facility] POINT OF CARE GLUCOSEon 05-27 Glucose [Mass/Vol] 116 mg/dL Critically high 74-106 T [facility] Comment on above: Performed By: #### P OCGLUC #### [facility] [address] [place], [place] [address] Canelo Freitas PROF CHEM 8 (BAS METB)on Anion gap [Moles/Vol] 15.0 mmol/L Normal [facility] Comment on above: Performed By: #### B MP, BNP, LIVER, LIPA, CMADM #### [facility] [address] [place], [place] [address] Canelo Freitas Calcium [Mass/Vol] 9.1 mg/dL Normal 8.4-10.2 [facility] Comment on above: Performed By: #### B MP, BNP, LIVER, LIPA, CMADM #### [facility] [address] [place] [address] [place] Z[place] Chloride [Moles/Vol] 100 mmol/L Normal 98-[address] [facility] Comment on above: Performed By: #### B MP, BNP, LIVER, LIPA, CMADM #### [facility] [address] [place] [address] [place] Zena CO2 [Moles/Vol] 24.9 mmol/L Normal 22.0-30.[address] [facility] Comment on above: Performed By: #### B MP, BNP, LIVER, LIPA, CMADM #### [facility] [address] [place] [address] Canelo Zena Creatinine [Mass/Vol] 1.07 mg/dL Normal 0.66-1.25 [facility] Comment on above: Performed By: #### B MP, BNP, LIVER, LIPA, CMADM #### [facility] [address] [place] [address] [place]elo Zena EGFR-AF KAZAKH >60 Normal >=[address] [facility] Comment on above: Performed By: #### B MP, BNP, LIVER, LIPA, CMADM #### [facility] [address] [place] [address] [place] Zena EGFR-NON AF KAZAKH >60 Normal >=[address] [facility] Comment on above: Performed By: #### B MP, BNP, LIVER, LIPA, CMADM #### [facility] [address] [place] [address] [place] Zena Glucose [Mass/Vol] 119 mg/dL Critically high 74-106 T [facility] Comment on above: Performed By: #### B MP, BNP, LIVER, LIPA, CMADM #### [facility] [address] [place] [address] Canelo Zena Potassium [Moles/Vol] 3.9 mmol/L Normal 3.4-5.[address] [facility] Comment on above: Performed By: #### B MP, BNP, LIVER, LIPA, CMADM #### [facility] [address] [place] [address] [place] Zena Sodium [Moles/Vol] 136 mmol/L Critically low 137-[address] [facility] Comment on above: Performed By: #### B MP, BNP, LIVER, LIPA, CMADM #### [facility] [address] [place] [address] Canelo Zena Urea nitrogen [Mass/Vol] 11.0 mg/dL Normal 9.0-20.0 [facility] Comment on above: Performed By: #### B MP, BNP, LIVER, LIPA, CMADM #### [facility] [address] [place], [place] [phone] [place]elo Zena Urea nitrogen/Creatinine [Mass ratio] 10.3 mg/mg Normal [facility] Comment on above: Performed By: #### B MP, BNP, LIVER, LIPA, CMADM #### [facility] [address] [place] [address] Caneloravindra Finken PROTIMEon 06-07-2018 INR Coag (PPP) [Relative time] 1.05 {INR} Normal [facility] Comment on above: Performed By: #### P T, PTT #### [facility] [address] [place], [place] [phone] [place] Z[place] PT Coag (PPP) [Time] 10.8 s Normal 9.0-11.6 [facility] Comment on above: Performed By: #### P T, PTT #### [facility] [address] [place], [place] [phone] [place]elo Zena PT Coag (PPP) [Time] PLEASE NOTE: NORMAL RANGE CHANGE 11-13-2013 DUE TO REAGENT LOT CHANGE Normal [facility] Comment on above: Performed By: #### P T, PTT #### [facility] [address] [place], [place] [id number] Canelo Zena PT Coag (PPP) [Time] SEE BELOW Normal [facility] Comment on above: Result Comment: PACO RED INR: 2.0 - 3.0 CONDITIONS NOT LISTED BELOW 2.5 - 3.5 FOR PROSTHETIC HEART VALVE REPLACEMENT 2.5 - 3.5 RECURRENT THROMBOSIS Performed By: #### P T, PTT #### [facility] [address] [address] Canelo Freitas PTTon 06-07-2018 aPTT Coag (Bld) [Time] 25.7 s Normal 22.3-36.[address] [facility] Comment on above: Performed By: #### P T, PTT #### [facility] [address] [address] Canelo Freitas aPTT Coag (Bld) [Time] PLEASE NOTE: NORM AL RANGE CHANGE 01-20-2015 DUE TO REAGENT LOT CHANGE Normal [facility] Comment on above: Performed By: #### P T, PTT #### [facility] [address] [address] Canelo Freitas T4on 06-07-2018 T4 [Mass/Vol] 6.20 ug/dL Normal 5.53-11.00 [facility] Comment on above: Performed By: #### T SH, MG, T4 ####[facility] [id number] [address]Gerken Zena TSHon 06-07-2018 TSH Qn SEE BELOW Normal [facility] Comment on above: Result Comment: <0.3 4 UIU/ml HYPERTHYROID 0.34-5.60 UIU/ml EUTHYROID >5.60 UIU/ml HYPOTHYROID Performed By: #### T SH, MG, T4 ####[facility] [id number] Zena TSH Qn 2.494 uIU/mL Normal 0.470-4.680 [facility] Comment on above: Performed By: #### T SH, MG, T4 ####[facility] [id number] [address]Canelo Freitas US CAROTID ART BILon 019 Bilirubin [Mass/Vol] [address] [place] [address] Patient: VIRAJ DOHERTY Exam Date: 06/07/2018 : 1955 Gender:M Ordering : DR MARILYN PATRICK . Admission #: [id number] Family : ICU Order #: [id number] CLICK HERE TO VIEW EXAM RADIOLOGY REPORT PROCEDURE: ULTRASOUND CAROTID ARTERIAL BILATERAL COMPARISON: None. INDICATIONS: Cerebrovascular accident TECHNIQUE: Duplex Doppler ultrasound analysis of carotid and vertebral arteries. FINDINGS: RIGHT CAROTID: Mild plaque without visible stenosis. LEFT CAROTID: Mild plaque without visible stenosis. VERTEBRALS: Antegrade flow bilaterally. OTHER: None. RIGHT CAROTID ARTERY LEFT CAROTID ARTERY PSV EDV PSV EDV Subclavian: 171.00 cm/s 3.72 cm/s Subclavian: 168.92 cm/s 0 cm/s CCA: Prox: 112.86 cm/s 10.68 cm/s CCA: Prox: 110.38 cm/s 21.18 cm/s Mid: 122.07 cm/s 22.28 cm/s Mid: 118.71 cm/s 23.96 cm/s Distal: 108.14 cm/s 26.92 cm/s Distal: 93.63 cm/s 18.39 cm/s BULB: 101.18 cm/s 17.64 cm/s BULB: 85.27 cm/s 18.39 cm/s ICA: Prox: 60.31 cm/s 16.31 cm/s ICA: Prox: 72.14 cm/s 18.92 cm/s Mid: 69.35 cm/s 17.60 cm/s Mid: 58.32 cm/s 16.94 cm/s Distal: 65.47 cm/s 18.89 cm/s Distal: 53.42 cm/s 13.85 cm/s ECA: 137.18 cm/s 20.89 cm/s ECA: 150.09 cm/s 22.30 cm/s VERTEBRAL: 51.12 cm/s 11.86 cm/s VERTEBRAL: 34.73 cm/s 8.35 cm/s ICA/CCA ratio: 0.83 0.79 ICA/CCA ratio: 0.72 0.77 * Spectral Doppler US Thresholds (Reference: César EG, et al. Radiology 2000; 214:247-252) Stenosis (%) PSV (cm/sec) VICA/VCCA 0-49 <150 <2.5 50-69 150-225 2.5-4.0 >70 >225 >4.0 * CONCLUSION: 1. 0-49% flow stenosis within the right and left carotid arteries. Dictated by: Angus Mcfarlane M.D. on 06/07/2018 at 16:13 Approved by: Angus Mcfarlane M.D. on 06/07/2018 at 16:14 Normal [facility] XR CHEST 2 Von 06-07-2018 XR CHEST 2 V [address] [place] [address] Patient: VIRAJ DOHERTY Exam Date: 06/07/2018 : 1955 Gender:M Ordering : DR DELIO BOYER D.O. Admission #: [id number] Family : DR MARILYN PATRICK . Order #: [id number] CLICK HERE TO VIEW EXAM RADIOLOGY REPORT PROCEDURE: RADIOGRAPH CHEST 2 VIEWS COMPARISON: None. INDICATIONS: Chronic hypertension FINDINGS: LUNGS: No significant pulmonary parenchymal abnormalities. VASCULATURE: No increased pulmonary vasculature. PLEURA: No pneumothorax, effusion, or pleural thickening. CARDIAC: No cardiomegaly or cardiac silhouette abnormality. MEDIASTINUM: No visible mass or adenopathy. BONES: No fracture or visible bone lesion. OTHER: Negative. CONCLUSION: Normal examination. Dictated by: Angus Mcfarlane M.D. on 06/07/2018 at 11:36 Approved by: Angus Mcfarlane M.D. on 06/07/2018 at 11:37 Normal [facility] Vital Signs Date Time Vital Sign Value Performing Clinician Shannan roy 12-20-2022 09:08-0400 Diastolic blood pressure 89 mm[Hg] MD Nolberto Hernandez Work Phone: [facility] 12-20-2022 09:08-0400 Systolic blood pressure 150 mm[Hg] MD Nolberto Hernandez Work Phone: [facility] 12-20-2022 04:48-0400 Body temperature 98 [degF] MD Nolberto Hernandez Work Phone: [facility] 12-20-2022 04:48-0400 Heart rate 83 /min MD Nolberto Hernandez Work Phone: [facility] 12-20-2022 04:48-0400 Respiratory rate 18 /min MD Nolberto Hernandez Work Phone: [facility] 12-20-2022 04:48-0400 SaO2% (BldA) [Mass fraction] 97 % MD Nolberto Hernandez Work Phone: [facility] 12-19-2022 11:15-0400 Body height 180.34 cm MD Nolberto Hernandez Work Phone: [facility] 12-17-2022 05:25-0400 Body weight 69.7 kg MD Nolberto Hernandez Work Phone: [facility] 12-12-2022 08:00-0400 Body temperature 97.9 [degF] MD Nolberto Hernandez Work Phone: [facility] 12-12-2022 08:00-0400 Diastolic blood pressure 79 mm[Hg] MD Nolberto Hernandez Work Phone: [facility] 12-12-2022 08:00-0400 Heart rate 91 /min MD Nolberto Hernandez Work Phone: [facility] 12-12-2022 08:00-0400 Respiratory rate 20 /min MD Nolberto Hernandez Work Phone: [facility] 12-12-2022 08:00-0400 SaO2% (BldA) [Mass fraction] 94 % MD Nolberto Hernandez Work Phone: [facility] 12-12-2022 08:00-0400 Systolic blood pressure 104 mm[Hg] MD Nolberto Hernandez Work Phone: [facility] 12-12-2022 05:52-0400 Body weight 70.4 kg MD Nolberto Hernandez Work Phone: [facility] 12-09-2022 23:55-0400 Body height 180.34 cm MD Nolberto Hernandez Work Phone: [facility] 11-15-2022 13:01-0400 Diastolic blood pressure 73 mm[Hg] MD Nolberto Hernandez Work Phone: [facility] 11-15-2022 13:01-0400 Respiratory rate 16 /min MD Nolberto Hernandez Work Phone: [facility] 11-15-2022 13:01-0400 SaO2% (BldA) [Mass fraction] 96 % MD Nolberto Hernandez Work Phone: [facility] 11-15-2022 13:01-0400 Systolic blood pressure 129 mm[Hg] MD Nolberto Hernandez Work Phone: [facility] 11-15-2022 05:00-0400 Body temperature 97.7 [degF] MD Nolberto Hernandez Work Phone: [facility] 11-15-2022 05:00-0400 Heart rate 67 /min MD Nolberto Hernandez Work Phone: [facility] 11-12-2022 05:24-0400 Body weight 69.8 kg MD Nolberto Hernandez Work Phone: [facility] 11-10-2022 14:53-0400 Body height 180.34 cm MD Nolberto Hernandez Work Phone: [facility] 11-02-2022 12:29-0400 Body temperature 98.4 [degF] MD Nolberto Hernandez Work Phone: [facility] 11-02-2022 12:29-0400 Diastolic blood pressure 72 mm[Hg] MD Nolberto Hernandez Work Phone: [facility] 11-02-2022 12:29-0400 Heart rate 83 /min MD Nolberto Hernandez Work Phone: [facility] 11-02-2022 12:29-0400 Respiratory rate 16 /min MD Nolberto Hernandez Work Phone: [facility] 11-02-2022 12:29-0400 SaO2% (BldA) [Mass fraction] 97 % MD Nolberto Hernandez Work Phone: [facility] 11-02-2022 12:29-0400 Systolic blood pressure 142 mm[Hg] MD Nolberto Hernandez Work Phone: [facility] 11-02-2022 06:00-0400 Body weight 71 kg MD Nolberto Hernandez Work Phone: [facility] 10-31-2022 14:37-0400 Body height 180.34 cm MD Nolberto Hernandez Work Phone: [facility] 10-30-2022 22:31-0400 Diastolic blood pressure 110 mm[Hg] MD Nolberto Hernandez Work Phone: [facility] 10-30-2022 22:31-0400 Heart rate 65 /min MD Nolberto Hernandez Work Phone: [facility] 10-30-2022 22:31-0400 Respiratory rate 18 /min MD Nolberto Hernandez Work Phone: [facility] 10-30-2022 22:31-0400 SaO2% (BldA) [Mass fraction] 96 % MD Nolberto Hernandez Work Phone: [facility] 10-30-2022 22:31-0400 Systolic blood pressure 200 mm[Hg] MD Nolberto Hernandez Work Phone: [facility] 10-30-2022 19:11-0400 Body height 175.26 cm MD Nolberto Hernandez Work Phone: [facility] 10-30-2022 19: Body weight 74.84 kg MD Nolberto Hernandez Work Phone: [facility] 10-30-2022 19: Body temperature 98.6 [degF] MD Nolberto Hernandez Work Phone: [facility] Encounters Encounter Date Encounter Type Care Provider Facility Start: 12-12-2022 End: 12-20-2022 Evaluation and management of inpatient Jose Martin Sen Facility:[facility] Start: 12-12-2022 End: 12-20-2022 Evaluation and management of inpatient MD Nolberto Hernandez Work Phone: [facility] Work Phone: Start: 12-10-2022 End: 12-12-2022 Evaluation and management of inpatient Davey Beauchampescu Facility:[facility] Start: 12-09-2022 End: 12-12-2022 Evaluation and management of inpatient MD Nolberto Hernandez Work Phone: [facility] Work Phone: Start: 12-07-2022 End: 12-07-2022 ambulatory Jose Martin Sen Facility:[facility] Start: 12-07-2022 End: 12-07-2022 ambulatory MD Nolberto Hernandez Work Phone: [facility] Work Phone: Start: 12-07-2022 End: 12-07-2022 Discharged Recurring MD Nolberto Hernandez Work Phone: [facility] [address] Start: 12-07-2022 Registered Recurring MD Nolberto alanis Work Phone: [facility] [address] Start: 11-02-2022 End: 11-15-2022 Evaluation and management of inpatient Jose Martin Sen Facility:[facility] Start: 11-02-2022 End: 11-15-2022 Evaluation and management of inpatient MD Nolberto Hernandez Work Phone: [facility] Work Phone: Start: 10-30-2022 End: 11-02-2022 Evaluation and management of inpatient Davey Harding Facility:[facility] Start: 10-30-2022 End: 11-02-2022 Evaluation and management of inpatient MD Nolberto Hernandez Work Phone: [facility] Work Phone: Start: 09-06-2022 End: 09-07-2022 ambulatory SHANNON JORDAN Facility:[facility] Start: 09-06-2022 End: 09-06-2022 Patient encounter procedure SHANNON JORDAN [facility] Start: 09-07-2021 End: 09-07-2021 Patient encounter procedure SHANNON JORDAN [facility] Start: 08-19-2018 End: 08-20-2018 Patient encounter procedure MARILYN HOY Facility: Start: 06-10-2018 End: 06-11-2018 Patient encounter procedure DEFAULT PHYSICIAN Facility:[facility] Start: 06-07-2018 End: 06-08-2018 Evaluation and management of inpatient MARILYN HOY Facility:[facility] Procedures Date Procedure Procedure Detail Performing Clinician Start: 12-11-2022 MRI of head MD Nolberto Freed ith Work Phone: Start: 11-07-2022 CT of head without contrast MD Nolberto Hernandez Work Phone: Start: 11-03-2022 Stool culture for bacteria MD Nolberto Hernandez Work Phone: Start: 10-31-2022 MRI of head MD Nolberto Freed ith Work Phone: Start: 10-30-2022 CT angiography of head MD Nolberto Hernandez Work Phone: Start: 10-30-2022 CT angiography of ne ck vessels MD Nolberto Hernandez Work Phone: Start: 10-30-2022 CT of head without contrast MD Nolberto Hernandez Work Phone: Start: 10-30-2022 Plain chest X-ray MD Karen Hernandez Work Phone: Start: 08-19-2018 [object Object] MARILYN PATRICK Comment on above: Performed By: #### C #### [facility] [address] [address] Canelo Freitas Plan of Treatment Date Care Activity Detail Author Start: 12-19-2022 [facility] Start: 12-18-2022 Arrangement of care procedure [facility] Start: 12-13-2022 Administration of prophylactic treatment [facility] Start: 12-12-2022 Hospital admission [facility] Start: 12-12-2022 Referral to clinical relief driller [facility] Start: 12-12-2022 [facility] Start: 12-12-2022 [facility] Start: 12-11-2022 Referral to rehabili tation physician [facility] Start: 12-10-2022 Hospital admission [facility] Start: 12-10-2022 Referral to neurologist [facility] Start: 11-15-2022 [facility] Start: 11-09-2022 Blood chemistry [facility] Start: 11-09-2022 [facility] Start: 11-08-2022 Blood chemistry [facility] Start: 11-08-2022 [facility] Start: 11-07-2022 Blood chemistry [facility] Start: 11-07-2022 [facility] Start: 11-06-2022 Administration of prophylactic treatment [facility] Start: 11-06-2022 Blood chemistry [facility] Start: 11-06-2022 [facility] Start: 11-05-2022 Blood chemistry [facility] Start: 11-05-2022 [facility] Start: 11-04-2022 Blood chemistry [facility] Start: 11-04-2022 [facility] Start: 11-03-2022 Blood chemistry [facility] Start: 11-03-2022 [facility] Start: 11-02-2022 Hospital admission [facility] Start: 11-02-2022 Referral to clinical relief driller [facility] Start: 11-02-2022 Blood chemistry [facility] Start: 11-02-2022 End: 11-02-2022 [facility] Start: 11-01-2022 Blood chemistry [facility] Start: 11-01-2022 [facility] Start: 10-31-2022 Referral to rehabili tation physician [facility] Start: 10-31-2022 Blood chemistry [facility] Start: 10-31-2022 MRI of head MR head/brain wo con [facility] Start: 10-31-2022 End: 10-31-2022 [facility] Start: 10-30-2022 [facility] Start: 10-30-2022 Hospital admission [facility] Start: 10-30-2022 Physical therapy procedure [facility] Start: 10-30-2022 Referral to neurologist [facility] Start: 10-30-2022 Referral to occupati onal therapist [facility] Start: 10-30-2022 CT angiography of head [facility] Start: 10-30-2022 CT angiography of ne ck vessels [facility] Start: 10-30-2022 CT Head WO contrast [facility] Start: 10-30-2022 CT of head without contrast CT head stroke alert wo con [facility] Start: 10-30-2022 Plain chest X-ray XR chest 1V portab le [facility] Start: 10-30-2022 XR Chest Single view [facility] Anion gap measurement [facility] Basophils [#/volume] in Blood by Automated count [facility] Basophils/100 leukoc ytes in Blood by Automated count [facility] Bilirubin measuremen t, urine [facility] Color of Urine [facility] Detection of hemoglobin [facility] Eosinophils [#/volum e] in Blood [facility] Eosinophils/100 leuk ocytes in Blood by Automated count [facility] Erythrocyte distribu tion width [Ratio] by Automated count [facility] Erythrocytes [#/volu me] in Blood [facility] Glucose [Mass/volume ] in Urine by Test strip [facility] Hematocrit [Volume Fraction] of Blood [facility] Hemoglobin [Mass/vol ume] in Blood [facility] Leukocytes [#/volume ] corrected for nucleated erythrocytes in Blood by Automated coun [facility] Leukocytes [#/volume ] in Blood [facility] Lymphocytes [#/volum e] in Blood by Automated count [facility] Lymphocytes/100 leuk ocytes in Blood by Automated count [facility] MCH [Entitic mass] b y Automated count [facility] MCHC [Mass/volume] b y Automated count [facility] MCV [Entitic volume] by Automated count [facility] Measurement of keton es in urine using dipstick [facility] Monocytes [#/volume] in Blood by Automated count [facility] Monocytes/100 leukoc ytes in Blood by Automated count [facility] Neutrophils [#/volum e] in Blood by Automated count [facility] Neutrophils/100 leuk ocytes in Blood by Automated count [facility] Nucleated erythrocyt es [Presence] in Blood by Automated count [facility] Patient Education [facility] Work Phone: Patient referral [facility] Work Phone: Platelet mean volume [Entitic volume] in Blood by Automated count [facility] Platelets [#/volume] in Blood [facility] Protein measurement, urine [facility] Urinalysis, specific gravity measurement [facility] Urine dipstick for nitrite [facility] Urine dipstick for s pecific gravity [facility] Urine pH test [facility] Urobilinogen concent ration, test strip measurement [facility] Payers Date Payer Category Payer Unknown [id number] 2022 Self-pay 1961 Medicare [id number] 1955 Unknown [id number] 2.16.8 [id number] 1955 Unknown [id number] 2.16.84 [id number] 1955 Unknown [id number] 2.16.84 [id number] 1955 Unknown [id number] 2.16.8 [id number] Medicaid Medicaid [id number] Unknown Unknown [id number] 2.16.8 [id number] Unknown [id number] 2.16.8 [id number] Unknown [id number] 2.16.8 [id number] Unknown [id number] 2.16.8 [id number] Unknown [id number] 2.16.8 [id number] Social History Date Type Detail Facility Tobacco smoking status No Smokin g Status Entered [facility] Sex Assigned At Male [facility] Tobacco smoking status No Smokin g Status Entered [facility] Start: 10-30-2022 Tobacco smoking stat [facility] Current some day smoker [facility] Start: 1955 Sex Assigned At Male [facility] Start: 10-31-2022 End: 12-13-2022 Tobacco smoking status [facility] Never smoked tobacco (finding) [facility] Start: 12-12-2022 Tobacco smoking stat [facility] Ex-smoker (finding) [facility] Goals Date Patient Goal Desired Activity /State Functional Status Date Assessment Result Facility 12-20-2022 Functional status Patient is Pro gressing Toward Baseline [facility] Work Phone: 12-12-2022 Functional status Patient Not at Baseline [facility] Work Phone: 11-15-2022 Functional status Patient Not at Baseline [facility] Work Phone: 11-02-2022 Functional status Patient Not at Baseline [facility] Work Phone: Mental Status Date Assessment Result Facility 12-20-2022 Cognitive function Cognitive Sta tus Patient is Progressing Toward Baseline [facility] Work Phone: 12-12-2022 Cognitive function Cognitive Sta tus Patient Not at Baseline [facility] Work Phone: 11-15-2022 Cognitive function Cognitive Sta tus Patient at Baseline [facility] Work Phone: 11-02-2022 Cognitive function Cognitive Sta tus Patient at Baseline [facility] Work Phone: Clinical Notes 09-07-2021 to 12-21-2022 Note Date & Type Note Facility 12-21-2022 Hospital Discharg e instructions Additional Instructions -Diet: low fat, low cholesterol. -Ambulate as tolerated. No driving unless cleared by physician, may ride in car. You will have Outpatient Therapy at [facility] Outpatient Therapy ([phone] ext. [phone]). The order for this has been sent to them, and they will contact you/your directly to schedule your evaluation date(s)/times. If you do not hear from them by , please contact them directly at the phone number listed above. You have been given prescriptions for new and/or needed medications. These prescriptions are for a one-time fill only, with no re-fills. For further re-fills going forward, you will need to address with your PCP at your follow up appointment, or by calling your PCP s office prior to the prescriptions running out. NOTE: please call within 24 hours if you need to cancel or change any follow up appointments. Arrive early to all follow up appointments, bring current medication list, photo ID and any insurance card(s) to all future follow ups (listed below). Please remember to wear a mask to all appointments. If you develop any symptoms (cough, fever/chills, shortness of breath, sore throat, nausea/vomiting, etc.) please contact your provider's office to inform them prior to your appointment. [facility] Work Phone: 12-18-2022 Progress note Note Date/Time December 18, 2022 10:09am [facility] [address] [place] [address] Physiatry(Rehab) Progress Note Signed Patient: Viraj Doherty MR#: [id number] : 1955 Acct:[id number] Age/Sex: 67 / M Adm Date: 3 Loc: Room: [address] [place] [address] Type: ADM IN Attending Dr: Jose Martin Sen MD Copies to: ~ Date of Service: 12/18/2022 Subjective Subjective Narrative: Mr. Doherty is a 67 year old male who is well-known to us from a recent rehab admission in October now presenting with functional impairments secondary to acute CVA and new onset seizures. Past medical history notable for hypertension, psoriasis, TIAs, thalamic CVA. Patient was admitted on 12/09/2022 after sustaining a generalized tonic-clonic seizure at home. He was also noted to be aphasic/dysarthric (unchanged from previous stroke) and exhibited somewhat worsened right-sided deficits. There isno recorded prior history of seizures. CT head did not revealed any acute abnormality. Started on Keppra per hospitalist team. Neurology was consulted. Routine EEG demonstrated no acute abnormality, no seizures or epileptiform discharges. MRI of the brain notable for new areas of acute ischemia in the left MCA territory greatest along the left MCA/PEDRO LUIS territory. There is interval resolution of diffusion restriction in the lateralaspect of the left thalamus, as well as redemonstration of multiple remote lacunar infarcts in the deep santos nuclei and periventricular white matter. Patient is already on dual antiplatelet therapy with aspirin and Plavix as well as statin. Neurology believes new infarct could be due to hypoperfusion due toovercorrected hypertension. Blood pressure regimen was optimized while inpatient. On admission to inpatient rehabilitation unit Viraj is alert and oriented to person and place. He is able to answer simple questions appropriately. Noted to be significantly dysarthric and expressively aphasic. There are some right-sided deficits and ataxia. This morning he was noted to be mildly hypotensive, although asymptomatic. Blood pressure regimen was adjusted to prevent further episodes of hypotension. Will continue to monitor closely. Otherwise patient has no complaints or concerns. He denies pain or discomfort. No cardiopulmonary symptoms. No GI/ concerns. Interval history: Asking about going home soon this morning, he did walk 235 feet. He still has mild cognitive impairment. His blood pressure is good with the amlodipine on hold. Review of Systems Review of Systems All other systems reviewed & are negative unless noted below or in HPI Exam Physical Exam Vital Signs: Temp Pulse Resp BP Pulse Ox O2 Del Method 97.8 F 68 14 139/73 98 Room Air 12/18/22 07:33 12/18/22 07:33 12/18/22 07:33 12/18/22 07:33 12/18/22 07:33 12/18/22 10:06 Narrative: General: Awake, alert, oriented x person and place HENT: Normal to inspection, normocephalic, atraumatic Eyes: PERRL, normal conjunctiva and sclera Neck: Normal ROM, normal visual inspection. Trachea midline. Cardio: Regular heart rate and rhythm Respiratory: Clear to auscultation bilaterally. Normal respiratory effort. No respiratory distress. GI: Abdomen soft, nontender, nondistended, active bowel sounds x4 quadrants Neuro: CN II-XII intact. Mild right-sided deficits in the upper/lower extremity, 4+/5, otherwise 5/5. Ataxic on the affected side. Dysarthric and aphasic. Extremities: No edema, erythema, cyanosis Psych: Mood and affect constricted. Speech garbled, significant expressive/receptive aphasia. Objective Labs 12/13/22 04:46 12/14/22 14:11 Medications and Allergies Allergies and Active Meds: Allergies No Known Allergies Allergy (Verified 10/30/22 19:24) Active Medications Generic Name Dose Route Start Last Admin Trade Name Freq PRN Reason Stop Dose Admin Acetaminophen 500 mg 12/12/22 18:42 Acetaminophen 500 Mg Tablet PO 12/12/23 18:41 Q4H PRN Pain Al Hydrox/Mg Hydrox/Simethicone 30 ml 12/12/22 18:42 Mag Hydrox/Al Hydrox/Simeth 30 Ml Udc PO 10/16/24 18:41 Q4H PRN Indigestion Amlodipine Besylate 10 mg 12/13/22 09:00 12/13/22 10:01 Amlodipine 10 Mg Tablet PO 12/13/23 08:59 Not Given DAILY LEVON Aspirin 81 mg 12/13/22 09:00 12/18/22 08:09 Aspirin 81 Mg Tablet.Dr PO 12/13/23 08:59 81 mg DAILY LEVON Administration Atorvastatin Calcium 80 mg 12/12/22 21:00 12/17/22 21:21 Atorvastatin 80 Mg Tablet PO 12/12/23 20:59 80 mg QPM LEVON Administration Bisacodyl 10 mg 12/12/22 18:42 Bisacodyl 10 Mg Supp.Rect NE 12/12/23 18:41 DAILY PRN Constipation Clopidogrel Bisulfate 75 mg 12/13/22 09:00 12/18/22 08:09 Clopidogrel Bisulfate 75 Mg Tablet PO 12/13/23 08:59 75 mg DAILY LEVON Administration Cyanocobalamin 1,000 mcg 12/13/22 09:00 12/18/22 08:09 Cyanocobalamin 1,000 Mcg Tablet PO 12/13/23 08:59 1,000 mcg QAM [facility] Administration Docusate Sodium 100 mg 12/12/22 18:42 Docusate 100 Mg Capsule PO 12/12/23 18:41 BID PRN Constipation Docusate Sodium 283 mg 12/12/22 18:42 Docusate Enema 283 Mg/5 Ml Enema NE 12/12/23 18:41 DAILY PRN Constipation Enoxaparin Sodium 40 mg 12/13/22 10:00 12/18/22 08:09 Enoxaparin 40 Mg/0.4 Ml Syringe SUBCUT 12/13/23 09:59 40 mg DAILY@1000 LEVON Administration Lactulose 30 gm 12/12/22 18:42 Lactulose 20 Gm/30 Ml Udc PO 12/12/23 18:41 DAILY PRN Constipation Levetiracetam 500 mg 12/12/22 21:00 12/18/22 08:09 Levetiracetam 500 Mg Tablet PO 12/12/23 20:59 500 mg BID LEVON Administration Polysaccharide Iron Complex 150 mg 12/12/22 15:30 12/16/22 17:00 Iron Polysaccharide Complex 150 Mg Capsule PO 12/12/23 15:29 150 mg Q48H LEVON Administration Sennosides 2 tab 12/13/22 12:00 Sennosides 8.6 Mg Tablet PO 12/13/23 11:59 DAILY@12 PRN If no BM in 2 days Sodium Chloride 0 ml 12/12/22 18:42 Sodium Chloride 0.9 % 10 Ml Syringe IV-PUSH 12/12/23 18:41 PRN PRN Flush Valsartan 80 mg 12/16/22 09:00 12/18/22 08:09 Valsartan 80 Mg Tablet PO 12/16/23 08:59 Not Given DAILY LEVON Assessment/Plan Assessment/Plan (1) Dysarthria: Code(s): R47.1 - Dysarthria and anarthria Status: Acute (2) Acute ischemic left MCA stroke: Code(s): I63.512 - Cerebral infarction due to unspecified occlusion or stenosis of left middle cerebral artery Status: Acute (3) Seizure: Code(s): R56.9 - Unspecified convulsions Status: Acute (4) Hyperlipidemia: Code(s): E78.5 - Hyperlipidemia, unspecified Status: Acute (5) HTN (hypertension): Code(s): I10 - Essential (primary) hypertension Status: Acute (6) Impaired mobility and activities of daily living: Code(s): Z74.09 - Other reduced mobility; Z78.9 - Other specified health status Status: Acute (7) Iron deficiency anemia: Code(s): D50.9 - Iron deficiency anemia, unspecified Status: Acute (8) Right-sided sensory deficit present: Code(s): R44.9 - Unspecified symptoms and signs involving general sensations and perceptions Status: Acute (9) Oropharyngeal dysphagia: Code(s): R13.12 - Dysphagia, oropharyngeal phase Status: Acute Plan This patient is a 67-year-old male presenting with functional limitations secondary to acute ischemic CVA. He was recently admitted to acute rehab less than a month ago after being diagnosed with acute thalamic CVA with new right-sided deficits. Underwent an unremarkable course and was discharged home on 11/15/2022. This time he presented to the hospital with new onset tonic-clonic seizures witnessed by his . MRI of the brain confirmed new area of ischemia. He is already on optimal stroke prevention therapy. Neurology recommends maintaining higher blood pressures to avoid cerebral hypoperfusion. * Stable and improving. Ambulatory over 235 feet. Would benefit from right AFO due to poststroke hemiplegia with foot drop. Gait cannot be corrected with other device at this point. The duration of this would be indefinite as this is his second recent stroke, he may not regain full function at bedside. Strength is 3 out of 5 or less with ambulation as he fatigues quickly. * Labs tomorrow. Patient education Pressure ulcer prophylaxis; encourage mobilization, frequent postural changes, pressure-relief techniques DVT prophylaxis: Encourage deep breathing exercise incentive spirometry. Monitor bladder. Toileting schedule. Continue current bladder management, with scans as needed and CIC if needed. Start bowel care program every day to obtain continence, prevent ileus. Maintain fall precautions Gait and balance retraining Functional training and self-care and home management, including activities of daily living and instrumental activities of daily living Provision of the necessary gait aids and functional adaptive equipment to enhance the patient's a functional druze Ensure adequate nutrition and hydration Sleep: No concerns. Pain: No issues. Discharge planning: Home with in a week or two. Plan: I completed a substantive portion of this encounter, the medical decision makingportion of this note in its entirety, including Allied health note review, nursing note review, quality compliance consultant note review, discussion with nursing and case management, and more than 50% of my time was spent on counseling and coordination of care, time spent 40 minutes Patient was personally seen by me, Dr. Sen, on the day of encounter, reviewed the history and the relevant portions of the chart, including current orders, allied health and quality compliance consultant notes, labs/imaging and performed garner elements of exam and I formulated the plan of care and facilitated the medical decision making. Documented By: Jose Martin Sen MD 12/18/22 1008 Signed By: <Electronically signed by Jose Martin Sen MD> 12/18/22 [id number] [facility] Work Phone: 1(389) 527-112610-21-2023 Progress note Author Jose Martin Sen [facility] December 16, 2022 9:30am Note Date/Time December 16, 2022 9 :30am [facility] [address] [place] [address] Physiatry(Rehab) Progress Note Signed Patient: Viraj Doherty MR#: [id number] : 1955 Acct:[id number] Age/Sex: 67 / M Adm Date: 3 Loc: 5T Room: 0R0163-7 Type: ADM IN Attending Dr: Jose Martin Sen MD Copies to: ~ Date of Service: 12/15/2022 Subjective Subjective Narrative: Mr. Doherty is a 67 year old male who is well-known to us from a recent rehab admission in October now presenting with functional impairments secondary to acute CVA and new onset seizures. Past medical history notable for hypertension, psoriasis, TIAs, thalamic CVA. Patient was admitted on 12/09/2022 after sustaining a generalized tonic-clonic seizure at home. He was also noted to be aphasic/dysarthric (unchanged from previous stroke) and exhibited somewhat worsened right-sided deficits. There isno recorded prior history of seizures. CT head did not revealed any acute abnormality. Started on Keppra per hospitalist team. Neurology was consulted. Routine EEG demonstrated no acute abnormality, no seizures or epileptiform discharges. MRI of the brain notable for new areas of acute ischemia in the left MCA territory greatest along the left MCA/PEDRO LUIS territory. There is interval resolution of diffusion restriction in the lateralaspect of the left thalamus, as well as redemonstration of multiple remote lacunar infarcts in the deep santos nuclei and periventricular white matter. Patient is already on dual antiplatelet therapy with aspirin and Plavix as well as statin. Neurology believes new infarct could be due to hypoperfusion due toovercorrected hypertension. Blood pressure regimen was optimized while inpatient. On admission to inpatient rehabilitation unit Viraj is alert and oriented to person and place. He is able to answer simple questions appropriately. Noted to be significantly dysarthric and expressively aphasic. There are some right-sided deficits and ataxia. This morning he was noted to be mildly hypotensive, although asymptomatic. Blood pressure regimen was adjusted to prevent further episodes of hypotension. Will continue to monitor closely. Otherwise patient has no complaints or concerns. He denies pain or discomfort. No cardiopulmonary symptoms. No GI/ concerns. Interval history: Reports poor p.o. intake, blood pressures reviewed. Working with therapy. Not orthostatic. Ambulatory 235' Review of Systems Review of Systems All other systems reviewed & are negative unless noted below or in HPI Exam Physical Exam Vital Signs: Temp Pulse Resp BP Pulse Ox O2 Del Method 98.1 F 79 18 104/72 98 Room Air 10/21/23 08:26 12/16/22 08:26 12/16/22 08:26 12/16/22 08:26 12/16/22 08:26 12/16/22 08:26 Narrative: General: Awake, alert, oriented x person and place HENT: Normal to inspection, normocephalic, atraumatic Eyes: PERRL, normal conjunctiva and sclera Neck: Normal ROM, normal visual inspection. Trachea midline. Cardio: Regular heart rate and rhythm Respiratory: Clear to auscultation bilaterally. Normal respiratory effort. No respiratory distress. GI: Abdomen soft, nontender, nondistended, active bowel sounds x4 quadrants Neuro: CN II-XII intact. Mild right-sided deficits in the upper/lower extremity, 4+/5, otherwise 5/5. Ataxic on the affected side. Dysarthric and aphasic. Extremities: No edema, erythema, cyanosis Psych: Mood and affect constricted. Speech garbled, significant expressive/receptive aphasia. Objective Labs 12/13/22 04:46 12/14/22 14:11 Medications and Allergies Allergies and Active Meds: Allergies No Known Allergies Allergy (Verified 10/30/22 19:24) Active Medications Generic Name Dose Route Start Last Admin Trade Name Freq PRN Reason Stop Dose Admin Acetaminophen 500 mg 12/12/22 18:42 Acetaminophen 500 Mg Tablet PO 12/12/23 18:41 Q4H PRN Pain Al Hydrox/Mg Hydrox/Simethicone 30 ml 12/12/22 18:42 Mag Hydrox/Al Hydrox/Simeth 30 Ml Udc PO 12/12/23 18:41 Q4H PRN Indigestion Amlodipine Besylate 10 mg 12/13/22 09:00 12/13/22 10:01 Amlodipine 10 Mg Tablet PO 12/13/23 08:59 Not Given DAILY LEVON Aspirin 81 mg 12/13/22 09:00 12/16/22 08:21 Aspirin 81 Mg Tablet.Dr PO 12/13/23 08:59 81 mg DAILY LEVON Administration Atorvastatin Calcium 80 mg 12/12/22 21:00 12/15/22 21:21 Atorvastatin 80 Mg Tablet PO 12/12/23 20:59 80 mg QPM LEVON Administration Bisacodyl 10 mg 12/12/22 18:42 Bisacodyl 10 Mg Supp.Rect NE 10/16/24 18:41 DAILY PRN Constipation Clopidogrel Bisulfate 75 mg 12/13/22 09:00 12/16/22 08:21 Clopidogrel Bisulfate 75 Mg Tablet PO 12/13/23 08:59 75 mg DAILY LEVON Administration Cyanocobalamin 1,000 mcg 12/13/22 09:00 12/16/22 08:21 Cyanocobalamin 1,000 Mcg Tablet PO 12/13/23 08:59 1,000 mcg QAM [facility] Administration Docusate Sodium 100 mg 12/12/22 18:42 Docusate 100 Mg Capsule PO 12/12/23 18:41 BID PRN Constipation Docusate Sodium 283 mg 12/12/22 18:42 Docusate Enema 283 Mg/5 Ml Enema NE 12/12/23 18:41 DAILY PRN Constipation Enoxaparin Sodium 40 mg 12/13/22 10:00 12/16/22 08:21 Enoxaparin 40 Mg/0.4 Ml Syringe SUBCUT 12/13/23 09:59 40 mg DAILY@1000 LEVON Administration Lactulose 30 gm 12/12/22 18:42 Lactulose 20 Gm/30 Ml Udc PO 12/12/23 18:41 DAILY PRN Constipation Levetiracetam 500 mg 12/12/22 21:00 12/16/22 08:21 Levetiracetam 500 Mg Tablet PO 12/12/23 20:59 500 mg BID LEVON Administration Polysaccharide Iron Complex 150 mg 12/12/22 15:30 12/14/22 16:24 Iron Polysaccharide Complex 150 Mg Capsule PO 12/12/23 15:29 150 mg Q48H [facility] Administration Sennosides 2 tab 12/13/22 12:00 Sennosides 8.6 Mg Tablet PO 12/13/23 11:59 DAILY@12 PRN If no BM in 2 days Sodium Chloride 0 ml 12/12/22 18:42 Sodium Chloride 0.9 % 10 Ml Syringe IV-PUSH 12/12/23 18:41 PRN PRN Flush Valsartan 80 mg 12/16/22 09:00 12/16/22 08:21 Valsartan 80 Mg Tablet PO 12/16/23 08:59 80 mg DAILY LEVON Administration Assessment/Plan Assessment/Plan (1) Dysarthria: Code(s): R47.1 - Dysarthria and anarthria Status: Acute (2) Acute ischemic left MCA stroke: Code(s): I63.512 - Cerebral infarction due to unspecified occlusion or stenosis of left middle cerebral artery Status: Acute (3) Seizure: Code(s): R56.9 - Unspecified convulsions Status: Acute (4) Hyperlipidemia: Code(s): E78.5 - Hyperlipidemia, unspecified Status: Acute (5) HTN (hypertension): Code(s): I10 - Essential (primary) hypertension Status: Acute (6) Impaired mobility and activities of daily living: Code(s): Z74.09 - Other reduced mobility; Z78.9 - Other specified health status Status: Acute (7) Iron deficiency anemia: Code(s): D50.9 - Iron deficiency anemia, unspecified Status: Acute (8) Right-sided sensory deficit present: Code(s): R44.9 - Unspecified symptoms and signs involving general sensations and perceptions Status: Acute (9) Oropharyngeal dysphagia: Code(s): R13.12 - Dysphagia, oropharyngeal phase Status: Acute Plan This patient is a 67-year-old male presenting with functional limitations secondary to acute ischemic CVA. He was recently admitted to acute rehab less than a month ago after being diagnosed with acute thalamic CVA with new right-sided deficits. Underwent an unremarkable course and was discharged home on 11/15/2022. This time he presented to the hospital with new onset tonic-clonic seizures witnessed by his . MRI of the brain confirmed new area of ischemia. He is already on optimal stroke prevention therapy. Neurology recommends maintaining higher blood pressures to avoid cerebral hypoperfusion. * Trend BP, avoid SBP <110s. * May consider fluid bolus if oral intake does not improve * Ambulatory 235' Patient education Pressure ulcer prophylaxis; encourage mobilization, frequent postural changes, pressure-relief techniques DVT prophylaxis: Encourage deep breathing exercise incentive spirometry. Monitor bladder. Toileting schedule. Continue current bladder management, with scans as needed and CIC if needed. Start bowel care program every day to obtain continence, prevent ileus. Maintain fall precautions Gait and balance retraining Functional training and self-care and home management, including activities of daily living and instrumental activities of daily living Provision of the necessary gait aids and functional adaptive equipment to enhance the patient's a functional druze Ensure adequate nutrition and hydration Sleep: No concerns. Pain: No issues. Discharge planning: Home with in a week or two. Plan: I completed a substantive portion of this encounter, the medical decision makingportion of this note in its entirety, including Allied health note review, nursing note review, quality compliance consultant note review, discussion with nursing and case management, and more than 50% of my time was spent on counseling and coordination of care, time spent 40 minutes Patient was personally seen by me, Dr. Sen, on the day of encounter, reviewed the history and the relevant portions of the chart, including current orders, allied health and quality compliance consultant notes, labs/imaging and performed garner elements of exam and I formulated the plan of care and facilitated the medical decision making. Documented By: Jose Martin Sen MD 12/16/22927 Signed By: <Electronically signed by Jose Martin Sen MD> 12/16/22929 [facility] Work Phone: 1(295) 543-522210-21-2023 Progress note Author Jose Martin Sen [facility] December 16, 2022 7:21am Note Date/Time December 14, 2022 1 2:52pm [facility] [address] [place] [address] Physiatry(Rehab) Progress Note Signed Patient: Viraj Doherty MR#: [id number] : 1955 Acct:[id number] Age/Sex: 67 / M Adm Date: 3 Loc: Room: [address] [place] [address] Type: ADM IN Attending Dr: Jose Martin Sen MD Copies to: ~ <Janice Altamirano APRN - Last Filed: 12/14/22 12:53> Date of Service: 12/14/2022 Subjective <Janice Altamirano APRN - Last Filed: 12/14/22 12:53> Subjective Narrative: Mr. Doherty is a 67 year old male who is well-known to us from a recent rehab admission in October now presenting with functional impairments secondary to acute CVA and new onset seizures. Past medical history notable for hypertension, psoriasis, TIAs, thalamic CVA. Patient was admitted on 12/09/2022 after sustaining a generalized tonic-clonic seizure at home. He was also noted to be aphasic/dysarthric (unchanged from previous stroke) and exhibited somewhat worsened right-sided deficits. There isno recorded prior history of seizures. CT head did not revealed any acute abnormality. Started on Keppra per hospitalist team. Neurology was consulted. Routine EEG demonstrated no acute abnormality, no seizures or epileptiform discharges. MRI of the brain notable for new areas of acute ischemia in the left MCA territory greatest along the left MCA/PEDRO LUIS territory. There is interval resolution of diffusion restriction in the lateralaspect of the left thalamus, as well as redemonstration of multiple remote lacunar infarcts in the deep santos nuclei and periventricular white matter. Patient is already on dual antiplatelet therapy with aspirin and Plavix as well as statin. Neurology believes new infarct could be due to hypoperfusion due toovercorrected hypertension. Blood pressure regimen was optimized while inpatient. On admission to inpatient rehabilitation unit Viraj is alert and oriented to person and place. He is able to answer simple questions appropriately. Noted to be significantly dysarthric and expressively aphasic. There are some right-sided deficits and ataxia. This morning he was noted to be mildly hypotensive, although asymptomatic. Blood pressure regimen was adjusted to prevent further episodes of hypotension. Will continue to monitor closely. Otherwise patient has no complaints or concerns. He denies pain or discomfort. No cardiopulmonary symptoms. No GI/ concerns. Interval history: Patient seen and evaluated in his room this morning. He is alert, oriented, pleasant. Reports no acute overnight events. Denies pain or discomfort. His vitals are stable. Neurological deficits remain unchanged. A.m. lab work results noted. Tolerating therapy. Ambulating short distances with a rolling walker and CGA/min assist. Able to do a few stairs. Min assist for transfers. Review of Systems <Janice Altamirano APRN - Last Filed: 12/14/22 12:53> Review of Systems All other systems reviewed & are negative unless noted below or in HPI Exam <Janice Altamirano APRN - Last Filed: 12/14/22 12:53> Physical Exam Vital Signs: Temp Pulse Resp BP Pulse Ox O2 Del Method 97.9 F 68 16 112/68 97 Room Air 12/14/22 05:31 12/14/22 05:31 12/14/22 05:31 12/14/22 05:31 12/14/22 05:31 12/14/22 05:31 Narrative: General: Awake, alert, oriented x person and place HENT: Normal to inspection, normocephalic, atraumatic Eyes: PERRL, normal conjunctiva and sclera Neck: Normal ROM, normal visual inspection. Trachea midline. Cardio: Regular heart rate and rhythm Respiratory: Clear to auscultation bilaterally. Normal respiratory effort. No respiratory distress. GI: Abdomen soft, nontender, nondistended, active bowel sounds x4 quadrants Neuro: CN II-XII intact. Mild right-sided deficits in the upper/lower extremity, 4+/5, otherwise 5/5. Ataxic on the affected side. Dysarthric and aphasic. Extremities: No edema, erythema, cyanosis Psych: Mood and affect constricted. Speech garbled, significant expressive/receptive aphasia. Objective <Janice Altamirano APRN - Last Filed: 12/14/22 12:53> Labs 12/13/22 04:46 12/14/22 05:45 Labs: Laboratory Results - last 24 hr 12/14/22 12/14/22 05:45 05:45 PHA Creatinine Clear 61.10 Sodium 143 Potassium 3.2 L Chloride 106 Carbon Dioxide 28.7 Anion Gap 11.5 BUN 25 Creatinine 1.12 Est GFR (CKD-EPI) > 60.0 Glucose 105 H Calcium 9.1 Magnesium 2.0 Cancelled Medications and Allergies Allergies and Active Meds: Allergies No Known Allergies Allergy (Verified 10/30/22 19:24) Active Medications Generic Name Dose Route Start Last Admin Trade Name Freq PRN Reason Stop Dose Admin Acetaminophen 500 mg 12/12/22 18:42 Acetaminophen 500 Mg Tablet PO 12/12/23 18:41 Q4H PRN Pain Al Hydrox/Mg Hydrox/Simethicone 30 ml 12/12/22 18:42 Mag Hydrox/Al Hydrox/Simeth 30 Ml Udc PO 12/12/23 18:41 Q4H PRN Indigestion Amlodipine Besylate 10 mg 12/13/22 09:00 12/13/22 10:01 Amlodipine 10 Mg Tablet PO 12/13/23 08:59 Not Given DAILY LEVON Aspirin 81 mg 12/13/22 09:00 12/14/22 09:04 Aspirin 81 Mg Tablet.Dr PO 12/13/23 08:59 81 mg DAILY LEVON Administration Atorvastatin Calcium 80 mg 12/12/22 21:00 12/13/22 21:40 Atorvastatin 80 Mg Tablet PO 12/12/23 20:59 80 mg QPM LEVON Administration Bisacodyl 10 mg 12/12/22 18:42 Bisacodyl 10 Mg Supp.Rect NE 12/12/23 18:41 DAILY PRN Constipation Clopidogrel Bisulfate 75 mg 12/13/22 09:00 12/14/22 09:04 Clopidogrel Bisulfate 75 Mg Tablet PO 12/13/23 08:59 75 mg DAILY LEVON Administration Cyanocobalamin 1,000 mcg 12/13/22 09:00 12/14/22 09:04 Cyanocobalamin 1,000 Mcg Tablet PO 12/13/23 08:59 1,000 mcg QAM [facility] Administration Docusate Sodium 100 mg 12/12/22 18:42 Docusate 100 Mg Capsule PO 12/12/23 18:41 BID PRN Constipation Docusate Sodium 283 mg 12/12/22 18:42 Docusate Enema 283 Mg/5 Ml Enema NE 12/12/23 18:41 DAILY PRN Constipation Enoxaparin Sodium 40 mg 12/13/22 10:00 12/14/22 09:04 Enoxaparin 40 Mg/0.4 Ml Syringe SUBCUT 12/13/23 09:59 40 mg DAILY@1000 LEVON Administration Lactulose 30 gm 12/12/22 18:42 Lactulose 20 Gm/30 Ml Udc PO 12/12/23 18:41 DAILY PRN Constipation Levetiracetam 500 mg 12/12/22 21:00 12/14/22 09:04 Levetiracetam 500 Mg Tablet PO 12/12/23 20:59 500 mg BID LEVON Administration Polysaccharide Iron Complex 150 mg 12/12/22 15:30 12/13/22 07:50 Iron Polysaccharide Complex 150 Mg Capsule PO 12/12/23 15:29 Not Given Q48H [facility] Sennosides 2 tab 12/13/22 12:00 Sennosides 8.6 Mg Tablet PO 12/13/23 11:59 DAILY@12 PRN If no BM in 2 days Sodium Chloride 0 ml 12/12/22 18:42 Sodium Chloride 0.9 % 10 Ml Syringe IV-PUSH 12/12/23 18:41 PRN PRN Flush Valsartan 160 mg 12/13/22 09:00 12/14/22 09:04 Valsartan 160 Mg Tablet PO 12/13/23 08:59 160 mg DAILY LEVON Administration Assessment/Plan <Janice Altamirano [employer] - Last Filed: 12/14/22 12:53> Assessment/Plan (1) Dysarthria: Code(s): R47.1 - Dysarthria and anarthria Status: Acute (2) Acute ischemic left MCA stroke: Code(s): I63.512 - Cerebral infarction due to unspecified occlusion or stenosis of left middle cerebral artery Status: Acute (3) Seizure: Code(s): R56.9 - Unspecified convulsions Status: Acute (4) Hyperlipidemia: Code(s): E78.5 - Hyperlipidemia, unspecified Status: Acute (5) HTN (hypertension): Code(s): I10 - Essential (primary) hypertension Status: Acute (6) Impaired mobility and activities of daily living: Code(s): Z74.09 - Other reduced mobility; Z78.9 - Other specified health status Status: Acute (7) Iron deficiency anemia: Code(s): D50.9 - Iron deficiency anemia, unspecified Status: Acute (8) Right-sided sensory deficit present: Code(s): R44.9 - Unspecified symptoms and signs involving general sensations and perceptions Status: Acute (9) Oropharyngeal dysphagia: Code(s): R13.12 - Dysphagia, oropharyngeal phase Status: Acute Plan This patient is a 67-year-old male presenting with functional limitations secondary to acute ischemic CVA. He was recently admitted to acute rehab less than a month ago after being diagnosed with acute thalamic CVA with new right-sided deficits. Underwent an unremarkable course and was discharged home on 11/15/2022. This time he presented to the hospital with new onset tonic-clonic seizures witnessed by his . MRI of the brain confirmed new area of ischemia. He is already on optimal stroke prevention therapy. Neurology recommends maintaining higher blood pressures to avoid cerebral hypoperfusion. * A.m. blood work reviewed. Potassium remains low at 3.2. Magnesium level within normal limits at 2.0. Will give additional 40 mEq of KCl. Recheck K levels this afternoon. * Vitals are stable. No complaints dizziness or lightheadedness. No new neuro deficits. * Tolerating therapy. Ambulatory with a walker and some assistance. Able to do a few stairs. Patient education Pressure ulcer prophylaxis; encourage mobilization, frequent postural changes, pressure-relief techniques DVT prophylaxis: Encourage deep breathing exercise incentive spirometry. Monitor bladder. Toileting schedule. Continue current bladder management, with scans as needed and CIC if needed. Start bowel care program every day to obtain continence, prevent ileus. Maintain fall precautions Gait and balance retraining Functional training and self-care and home management, including activities of daily living and instrumental activities of daily living Provision of the necessary gait aids and functional adaptive equipment to enhance the patient's a functional druze Ensure adequate nutrition and hydration Sleep: No concerns. Pain: No issues. Discharge planning: Home with in 7 to 10 days. I spent greater than 15 minutes for services, including [id number] encounter with the patient, discussion of the case, plan of care, and exam; and [id number] activities, such as reviewing pertinent quality compliance consultant documentation, recent therapy notes, laboratory and radiology studies, and discussion of case with care team including physician, nursing, case folder, and therapists. More than 50 % of time was spent on patient/family counseling or coordination ofcare. <Jose Martin Sen MD - Last Filed: 12/16/22 07:21> Assessment/Plan (1) Dysarthria: (2) Acute ischemic left MCA stroke: (3) Seizure: (4) Hyperlipidemia: (5) HTN (hypertension): (6) Impaired mobility and activities of daily living: (7) Iron deficiency anemia: (8) Right-sided sensory deficit present: (9) Oropharyngeal dysphagia: Plan: I completed a substantive portion of this encounter, the medical decision makingportion of this note in its entirety, including Allied health note review, nursing note review, quality compliance consultant note review, discussion with nursing and case management, and more than 50% of my time was spent on counseling and coordination of care, time spent 40 minutes Patient was personally seen by me, Dr. Sen, on the day of encounter, reviewed the history and the relevant portions of the chart, including current orders, allied health and quality compliance consultant notes, labs/imaging and performed garner elements of exam and I formulated the plan of care and facilitated the medical decision making. Encourage p.o. intake. Blood pressure less than 100 or 110 consistently, would consider fluid bolus. Documented By: Janice Altamirano APRN 12/14/22 1 246 Signed By: <Electronically signed by JASMIN Altamirano> 12/14/22 1253 <Electronically signed by Jose Martin Sen MD> 12/16/22 0721 [facility] Work Phone: [phone] 199-536910-19-2023 Consult note Author Quynh Galvan [facility] December 14, 2022 7:01am Note Date/Time December 13, 2022 3 :52pm [facility] [address] [place] [address] Hospitalist Consult Note Signed Patient: Viraj Doherty MR#: [id number] : 1955 Acct:[id number] Age/Sex: 67 / M Adm Date: 3 Loc: Room: [address] [place] [address] Type: ADM IN Attending Dr: Jose Martin Sen MD Copies to: MD Jose Martin Millan MD Linda Obika, JASMIN Galvan MD~ HPI DATE OF CONSULTATION: 12/13/22 REQUESTING PROVIDER: Jose Martin Sen Consult Narrative Reason for Consult: HTN, CVA HPI: Patient is a 67-year-old male with a recent history of thalamic CVA, right-sidedhemiparesis and dysarthria who presented to the emergency department on 12/09/2022 after having a witnessed generalized seizure. In the ED, head CT didnot show any acute intracranial pathology. He was seen and evaluated by neurology, MRI of the brain demonstrated left MCA territory ischemia, multiple remote infarcts were noted along with a recent left thalamic stroke. Neurology documented that new onset generalized tonic?clonic seizure was caused by acute ischemic stroke secondary to hypoperfusion due to hypotension. He recommended that antihypertensive medications might need to be reduced. EEG was obtained which was normal. He was continued on Keppra 500 mg twice daily and he would need to follow-up with neurology outpatient. He was seen and evaluated by physical therapy and Occupational Therapy who recommended acute inpatient rehabilitation. The hospitalist team has been consulted for medical management of hypertension and all other comorbidities. Patient seen and examined at bedside. Reports increased fatigue, however was able to participate in physical therapy. Denies chest pain or palpitation. No cough, dyspnea, or pain with inspiration. No abdominal pain or indigestion, constipation or diarrhea, nausea or vomiting. Nodysuria or retention. No headache or dizziness. No fevers Review of Systems Review of Systems Review of systems: 10 point review of systems obtained, negative unless noted in the HPI below [facility] Medical History (Updated 12/13/22 @ 11:18 by Janice Altamirano APRN) CVA (cerebral vascular accident) HTN (hypertension) Hx of TIA (transient ischemic attack) and stroke Family History Other Hypertension Social History Smoking Status: Never smoker Substance Use Type: None Social History Comments: mobile home Meds Medications and Allergies Allergies No Known Allergies Allergy (Verified 10/30/22 19:24) Home Medications aspirin 81 mg tablet,delayed release 81 mg PO DAILY #0 tabs 11/02/22 [Rx Confirmed 12/12/22] atorvastatin 80 mg tablet 80 mg PO QPM #0 tabs 11/02/22 [Rx Confirmed 12/12/22] clopidogrel 75 mg tablet 75 mg PO DAILY #0 tabs 11/02/22 [Rx Confirmed 12/12/22] Humira 40 mg subcut Q14D ##0 11/14/22 [Rx Confirmed 12/12/22] amlodipine 10 mg-valsartan 320 mg-hydrochlorothiazide 25 mg tablet 1 tab PO DAILY 30 days #30 tabs 11/14/22 [Rx Confirmed 12/12/22] potassium chloride 10 mEq tablet,extended release (Klor-Con) 20 meq PO DAILY 30 days #60 tabs 11/14/22 [Rx Confirmed 12/12/22] cyanocobalamin (vitamin B-12) 1,000 mcg capsule 1,000 mcg PO DAILY #90 caps 12/11/22 [Rx Confirmed 12/12/22] levetiracetam 500 mg tablet 500 mg PO BID 90 days #180 tabs 12/11/22 [Rx Confirmed 12/12/22] polysaccharide iron complex 150 mg iron capsule (Ferrex) 150 mg PO Q48H #90 caps12/11/22 [Rx Confirmed 12/12/22] Active Medications: Active Medications Generic Name Dose Route Start Last Admin Trade Name Freq PRN Reason Stop Dose Admin Acetaminophen 500 mg 12/12/22 18:42 Acetaminophen 500 Mg Tablet PO 12/12/23 18:41 Q4H PRN Pain Al Hydrox/Mg Hydrox/Simethicone 30 ml 12/12/22 18:42 Mag Hydrox/Al Hydrox/Simeth 30 Ml Udc PO 12/12/23 18:41 Q4H PRN Indigestion Amlodipine Besylate 10 mg 12/13/22 09:00 12/13/22 10:01 Amlodipine 10 Mg Tablet PO 12/13/23 08:59 Not Given DAILY LEVON Aspirin 81 mg 12/13/22 09:00 12/13/22 09:32 Aspirin 81 Mg Tablet.Dr PO 12/13/23 08:59 81 mg DAILY LEVON Administration Atorvastatin Calcium 80 mg 12/12/22 21:00 12/12/22 20:30 Atorvastatin 80 Mg Tablet PO 12/12/23 20:59 80 mg QPM LEVON Administration Bisacodyl 10 mg 12/12/22 18:42 Bisacodyl 10 Mg Supp.Rect NE 12/12/23 18:41 DAILY PRN Constipation Clopidogrel Bisulfate 75 mg 12/13/22 09:00 12/13/22 09:32 Clopidogrel Bisulfate 75 Mg Tablet PO 12/13/23 08:59 75 mg DAILY [facility] Administration Cyanocobalamin 1,000 mcg 12/13/22 09:00 12/13/22 09:32 Cyanocobalamin 1,000 Mcg Tablet PO 12/13/23 08:59 1,000 mcg QAM [facility] Administration Docusate Sodium 100 mg 12/12/22 18:42 Docusate 100 Mg Capsule PO 12/12/23 18:41 BID PRN Constipation Docusate Sodium 283 mg 12/12/22 18:42 Docusate Enema 283 Mg/5 Ml Enema NE 12/12/23 18:41 DAILY PRN Constipation Enoxaparin Sodium 40 mg 12/13/22 10:00 12/13/22 09:34 Enoxaparin 40 Mg/0.4 Ml Syringe SUBCUT 12/13/23 09:59 40 mg DAILY@1000 LEVON Administration Lactulose 30 gm 12/12/22 18:42 Lactulose 20 Gm/30 Ml Udc PO 12/12/23 18:41 DAILY PRN Constipation Levetiracetam 500 mg 12/12/22 21:00 12/13/22 09:32 Levetiracetam 500 Mg Tablet PO 12/12/23 20:59 500 mg BID LEVON Administration Polysaccharide Iron Complex 150 mg 10/17/23 15:30 12/13/22 07:50 Iron Polysaccharide Complex 150 Mg Capsule PO 12/12/23 15:29 Not Given Q48H LEVON Sennosides 2 tab 12/13/22 12:00 Sennosides 8.6 Mg Tablet PO 12/13/23 11:59 DAILY@12 PRN If no BM in 2 days Sodium Chloride 0 ml 12/12/22 18:42 Sodium Chloride 0.9 % 10 Ml Syringe IV-PUSH 12/12/23 18:41 PRN PRN Flush Valsartan 160 mg 12/13/22 09:00 12/13/22 10:01 Valsartan 160 Mg Tablet PO 12/13/23 08:59 Not Given DAILY LEVON Exam Physical Exam Vital Signs: Temp Pulse Resp BP Pulse Ox O2 Del Method 98.7 F 73 19 96/63 L 97 Room Air 12/13/22 04:43 12/13/22 04:43 12/13/22 04:43 12/13/22 09:37 12/13/22 04:43 12/13/22 09:30 Narrative: CONST-alert, cooperative, comfortable HEAD - Normocephalic and atraumatic EENT-Sclera nonicteric and conjunctive are nonerythemic, moist oral mucosa, pharynx clear NECK-Supple, no cervical lymphadenopathy CARDIAC-normal rate, regular rhythm, normal S1 & S2. PULM-diminished without wheeze or rhonchi, RA, no accessory muscle use or cough noted ABD - Soft. Bowel sounds are normal. No distention No tenderness EXTREM-no edema BLE calves nontender SKIN- W/D good turgor MS- MAEX2 right-sided weakness NEURO- A&Ox3 speech clear and tongue midline, equal facial symmetry no focal motor deficits PSYCH-Mood, affect and behavior appropriate Results Lab Results Labs: Laboratory Results - last 72 hr 12/13/22 04:46: PHA Creatinine Clear 58.00, Sodium 142, Potassium 3.2 L, Chloride 106, Carbon Dioxide 28.0, Anion Gap 11.2, BUN 20, Creatinine 1.18, Est GFR (CKD- EPI) > 60.0, Glucose 85, Calcium 9.0, Total Bilirubin 0.6, AST 15, ALT 25, Alkaline Phosphatase 72, Total Protein 6.7, Albumin 4.0, Globulin 2.7, Albumin/Globulin Ratio 1.5, Prealbumin 26.1 12/13/22 04:46: Corrected WBC 6.7, Uncorrected WBC Count 6.7, RBC 2.90 L, Hgb 9.1 L, Hct 25.4 L, MCV 87.7, MCH 31.5, MCHC 35.9 H, RDW 14.5, Plt Count 257, MPV7.8, Neut % (Auto) 49.3, Lymph % (Auto) 36.9, [place] % (Auto) 9.9, Eos % (Auto) 2.7, Baso % (Auto) 1.2, Nucleat RBC Rel Count 0.1, Neut # (Auto) 3.3, Lymph # (Auto) 2.5, [place] # (Auto) 0.7, Eos # (Auto) 0.2, Baso # (Auto) 0.1 12/12/22 20:10: POC Glucose 146 Assessment & Plan Assessment/Plan (1) Acute ischemic left MCA stroke: (2) Seizure: (3) Impaired mobility and activities of daily living: (4) Right-sided sensory deficit present: Plan Acute ischemic stroke in the left MCA territory 12/09 Recent left thalamic ischemic stroke 11/18 New onset seizure disorder ?Plan of care for rehabilitation, PT/OT, DVT prophylaxis, bowel regimen per PM&Rteam ?On aspirin, Plavix, Lipitor for stroke prevention. ?On Keppra 500 mg twice daily for seizure Normocytic anemia?hemoglobin dropped from 1 month ago, will probably need to be evaluated outpatient ?Iron studies with low iron levels and low saturation, on iron supplement, ?Guaiac stool pending, continue to monitor Hypokalemia?repleted Hypertension Blood pressures reviewed, very soft in the morning, amlodipine on hold. On Diovan 160 mg daily, continue to monitor Documented By: Aziza Walker APRN 12/13/22 1543 Signed By: <Electronically signed by JASMIN Walker> 12/13/22 1621 <Electronically signed by Quynh Galvan MD> 12/14/22 0701 [facility] Work Phone: [phone] 723-876210-18-2023 History and physical note Author Jose Martin Sen [facility] October 18th, 2023 3:06pm Note Date/Time December 13, 2022 1 0:16am [facility] [address] [place] [address] Physiatry (Rehab) H&P Signed Patient: Viraj Doherty MR#: [id number] : 1955 Acct:[id number] Age/Sex: 67 / M Adm Date: 3 Loc: Room: [address] [place] [address] Type: ADM IN Attending Dr: Jose Martin Sen MD Copies to: MD Janice Millan, JASMIN Sen MD~ Date of Service: 12/13/2022 HPI The patient was seen and examined on: 12/13/22 History of Present Illness: Mr. Doherty is a 67 year old male who is well-known to us from a recent rehab admission in October now presenting with functional impairments secondary to acute CVA and new onset seizures. Past medical history notable for hypertension, psoriasis, TIAs, thalamic CVA. Patient was admitted on 12/09/2022 after sustaining a generalized tonic-clonic seizure at home. He was also noted to be aphasic/dysarthric (unchanged from previous stroke) and exhibited somewhat worsened right-sided deficits. There isno recorded prior history of seizures. CT head did not revealed any acute abnormality. Started on Keppra per hospitalist team. Neurology was consulted. Routine EEG demonstrated no acute abnormality, no seizures or epileptiform discharges. MRI of the brain notable for new areas of acute ischemia in the left MCA territory greatest along the left MCA/PEDRO LUIS territory. There is interval resolution of diffusion restriction in the lateralaspect of the left thalamus, as well as redemonstration of multiple remote lacunar infarcts in the deep santos nuclei and periventricular white matter. Patient is already on dual antiplatelet therapy with aspirin and Plavix as well as statin. Neurology believes new infarct could be due to hypoperfusion due toovercorrected hypertension. Blood pressure regimen was optimized while inpatient. On admission to inpatient rehabilitation unit Viraj is alert and oriented to person and place. He is able to answer simple questions appropriately. Noted to be significantly dysarthric and expressively aphasic. There are some right-sided deficits and ataxia. This morning he was noted to be mildly hypotensive, although asymptomatic. Blood pressure regimen was adjusted to prevent further episodes of hypotension. Will continue to monitor closely. Otherwise patient has no complaints or concerns. He denies pain or discomfort. No cardiopulmonary symptoms. No GI/ concerns. [facility] Medical History (Updated 12/13/22 @ 11:18 by Janice Altamirano APRN) CVA (cerebral vascular accident) HTN (hypertension) Hx of TIA (transient ischemic attack) and stroke Family History Other Hypertension Social History Smoking Status: Never smoker Substance Use Type: None Social History Comments: mobile home Review of Systems Review of Systems All other systems reviewed & are negative unless noted below or in HPI Meds Medications and Allergies Allergies No Known Allergies Allergy (Verified 10/30/22 19:24) Home and Active Meds: Home Medications aspirin 81 mg tablet,delayed release 81 mg PO DAILY #0 tabs 11/02/22 [Rx Confirmed 12/12/22] atorvastatin 80 mg tablet 80 mg PO QPM #0 tabs 11/02/22 [Rx Confirmed 12/12/22] clopidogrel 75 mg tablet 75 mg PO DAILY #0 tabs 11/02/22 [Rx Confirmed 12/12/22] Humira 40 mg subcut Q14D ##0 11/14/22 [Rx Confirmed 12/12/22] amlodipine 10 mg-valsartan 320 mg-hydrochlorothiazide 25 mg tablet 1 tab PO DAILY 30 days #30 tabs 11/14/22 [Rx Confirmed 12/12/22] potassium chloride 10 mEq tablet,extended release (Klor-Con) 20 meq PO DAILY 30 days #60 tabs 11/14/22 [Rx Confirmed 12/12/22] cyanocobalamin (vitamin B-12) 1,000 mcg capsule 1,000 mcg PO DAILY #90 caps 12/11/22 [Rx Confirmed 12/12/22] levetiracetam 500 mg tablet 500 mg PO BID 90 days #180 tabs 12/11/22 [Rx Confirmed 12/12/22] polysaccharide iron complex 150 mg iron capsule (Ferrex) 150 mg PO Q48H #90 caps12/11/22 [Rx Confirmed 12/12/22] Active Medications Acetaminophen (Acetaminophen 500 Mg Tablet) 500 mg PO Q4H PRN PRN Reason: Pain Stop: 12/12/23 18:41 Al Hydrox/Mg Hydrox/Simethicone (Mag Hydrox/Al Hydrox/Simeth 30 Ml Udc) 30 ml PO Q4H PRN PRN Reason: Indigestion Stop: 12/12/23 18:41 Amlodipine Besylate (Amlodipine 10 Mg Tablet) 10 mg PO DAILY LEVON Stop: 12/13/23 08:59 Last Admin: 12/13/22 10:01 Dose: Not Given Aspirin (Aspirin 81 Mg Tablet.Dr) 81 mg PO DAILY LEVON Stop: 12/13/23 08:59 Last Admin: 12/13/22 09:32 Dose: 81 mg Atorvastatin Calcium (Atorvastatin 80 Mg Tablet) 80 mg PO QPM LEVON Stop: 12/12/23 20:59 Last Admin: 12/12/22 20:30 Dose: 80 mg Bisacodyl (Bisacodyl 10 Mg Supp.Rect) 10 mg NE DAILY PRN PRN Reason: Constipation Stop: 12/12/23 18:41 Clopidogrel Bisulfate (Clopidogrel Bisulfate 75 Mg Tablet) 75 mg PO DAILY LEVON Stop: 12/13/23 08:59 Last Admin: 12/13/22 09:32 Dose: 75 mg Cyanocobalamin (Cyanocobalamin 1,000 Mcg Tablet) 1,000 mcg PO QAM LEVON Stop: 12/13/23 08:59 Last Admin: 12/13/22 09:32 Dose: 1,000 mcg Docusate Sodium (Docusate 100 Mg Capsule) 100 mg PO BID PRN PRN Reason: Constipation Stop: 12/12/23 18:41 Docusate Sodium (Docusate Enema 283 Mg/5 Ml Enema) 283 mg NE DAILY PRN PRN Reason: Constipation Stop: 12/12/23 18:41 Enoxaparin Sodium (Enoxaparin 40 Mg/0.4 Ml Syringe) 40 mg SUBCUT DAILY@1000 LEVON Stop: 12/13/23 09:59 Last Admin: 12/13/22 09:34 Dose: 40 mg Lactulose (Lactulose 20 Gm/30 Ml Udc) 30 gm PO DAILY PRN PRN Reason: Constipation Stop: 12/12/23 18:41 Levetiracetam (Levetiracetam 500 Mg Tablet) 500 mg PO BID LEVON Stop: 12/12/23 20:59 Last Admin: 12/13/22 09:32 Dose: 500 mg Polysaccharide Iron Complex (Iron Polysaccharide Complex 150 Mg Capsule) 150 mgPO Q48H [facility] Stop: 12/12/23 15:29 Last Admin: 12/13/22 07:50 Dose: Not Given Sennosides (Sennosides 8.6 Mg Tablet) 2 tab PO DAILY@12 PRN PRN Reason: If no BM in 2 days Stop: 12/13/23 11:59 Sodium Chloride (Sodium Chloride 0.9 % 10 Ml Syringe) 0 ml IV-PUSH PRN PRN PRN Reason: Flush Stop: 12/12/23 18:41 Valsartan (Valsartan 160 Mg Tablet) 160 mg PO DAILY [facility] Stop: 12/13/23 08:59 Last Admin: 12/13/22 10:01 Dose: Not Given Exam Physical Exam Vital Signs: Temp Pulse Resp BP Pulse Ox O2 Del Method 98.7 F 73 19 96/63 L 97 Room Air 12/13/22 04:43 12/13/22 04:43 12/13/22 04:43 12/13/22 09:37 12/13/22 04:43 12/13/22 04:43 Narrative: General: Awake, alert, oriented x person and place HENT: Normal to inspection, normocephalic, atraumatic Eyes: PERRL, normal conjunctiva and sclera Neck: Normal ROM, normal visual inspection. Trachea midline. Cardio: Regular heart rate and rhythm Respiratory: Clear to auscultation bilaterally. Normal respiratory effort. No respiratory distress. GI: Abdomen soft, nontender, nondistended, active bowel sounds x4 quadrants Neuro: CN II-XII intact. Mild right-sided deficits in the upper/lower extremity, 4+/5, otherwise 5/5. Ataxic on the affected side. Dysarthric and aphasic. Extremities: No edema, erythema, cyanosis Psych: Mood and affect constricted. Speech garbled, significant expressive/receptive aphasia. Results Labs Labs: Laboratory Results - last 24 hr 12/12/22 12/13/22 12/13/22 20:10 04:46 04:46 Corrected WBC 6.7 Uncorrected WBC Count 6.7 RBC 2.90 L Hgb 9.1 L Hct 25.4 L MCV 87.7 MCH 31.5 MCHC 35.9 H RDW 14.5 Plt Count 257 MPV 7.8 Neut % (Auto) 49.3 Lymph % (Auto) 36.9 [place] % (Auto) 9.9 Eos % (Auto) 2.7 Baso % (Auto) 1.2 Nucleat RBC Rel Count 0.1 Neut # (Auto) 3.3 Lymph # (Auto) 2.5 [place] # (Auto) 0.7 Eos # (Auto) 0.2 Baso # (Auto) 0.1 PHA Creatinine Clear 58.00 Sodium 142 Potassium 3.2 L Chloride 106 Carbon Dioxide 28.0 Anion Gap 11.2 BUN 20 Creatinine 1.18 Est GFR (CKD-EPI) > 60.0 Glucose 85 POC Glucose 146 Calcium 9.0 Total Bilirubin 0.6 AST 15 ALT 25 Alkaline Phosphatase 72 Total Protein 6.7 Albumin 4.0 Globulin 2.7 Albumin/Globulin Ratio 1.5 Prealbumin 26.1 Functional Status Prior Level of Function Narrative: At discharge from acute rehab on 11/15/2022 patient was ambulatory functional distances with a rolling walker and contact-guard assist, was able to do stairs with CGA, required contact-guard assist/standby assist for transfers. Current Level of Function Narrative: Ambulates 12 feet with a rolling walker and min to mod assist x1. Min assist for transfers, supervision for bed mobility. Individualized Plan of Care Individualized Plan of Care Plan of Care: Individualized Overall Plan of Care: Admit Date/Time: December 12, 2022 Expected LOS: 3 weeks Expected Discharge Destination: Home Rehabilitation IGC: 01.2 Primary Diagnosis: Ischemic left brain stroke To have patient become more independent and to return home. Medical/ Functional Prognosis: Good Anticipated Functional Outcomes/Goals and Interventions: 1.Therapy Functional Outcome/Goal: Anticipate independent bed mobility Anticipated interventions: Physician management, PT, OT, SWITCHBOARD INSTALLER, , Dietitian, RehabNursing, Case management 2. Therapy Functional Outcome/Goal: Anticipate independent for transfers Anticipated interventions: Physician management, PT, OT, SWITCHBOARD INSTALLER, Case management, Dietitian, Rehab Nursing 3. Therapy Functional Outcome/Goal: Anticipate independent ambulation Anticipated interventions: Physician management, PT, OT, SWITCHBOARD INSTALLER Case management, Dietitian, Rehab Nursing 4.Therapy Functional Outcome/Goal: Anticipate independent self-care Anticipated interventions: Physician management, PT, OT, SWITCHBOARD INSTALLER, Case management, Dietitian, Rehab Nursing 5.Therapy Functional Outcome/Goal: Anticipate independent functional communication / swallowing Anticipated interventions: Physician management, PT, OT, SWITCHBOARD INSTALLER, Case management, Dietitian, Rehab Nursing Required Therapy PT: 1 hour per day at least 5 days per week with additional therapy on as neededbasis. Comments: PT to improve pt's strength, endurance, bed mobility, transfers (sit-stand), standing balance, gait quality on level surfaces and stairs, coordination and functional ADL skills. Will also work to improve pt's safety awareness during transfers and ambulation. OT: 1 hour per day at least 5 days per week with additional therapy on as neededbasis. Comments: OT for basic ADL re-training (bathing, dressing, toileting, continence, grooming, feeding, transferring), to increase activity tolerance andfunctional mobility and to evaluate for adaptive and assistive devices. Will work to improve pt's endurance and educate pt on fall prevention and energy conservation techniques-pacing strategies and proper breathing techniques duringfunctional tasks. Speech/Language - 1 hour per day at least 5 days per week with additional therapy on as needed basis. Comments: SWITCHBOARD INSTALLER to evaluate and treat patient?s cognition, language and communication skills, assess swallow function. Other: Dietitian, Rehab nursing, Wound, P&O, Neuropsychology as needed RATIONALE FOR IRF ADMISSION: Patient has both medical and functional complexities that require 24 hour daily monitoring and intervention from [employer] Coiling Machine Setter as well as other consulting physicians including internal medicine as well as 24 hour daily circulation tender nursing - for medical safe / optimal management. Patient requires interdisciplinary therapy team rehabilitation care including OT, PT, SWITCHBOARD INSTALLER, SW, Psychology, Rehab Nursing, requires and can tolerate at least 3 hours of daily OT and PT therapy at least 5 days weekly. The following medical conditions significantly impact the rehabilitation process andare being addressed daily and can not be managed at home or in a lesser intense medical setting: Refer to above problem oriented plan of care Assessment/Plan (1) Dysarthria: Code(s): R47.1 - Dysarthria and anarthria Status: Acute (2) Acute ischemic left MCA stroke: Code(s): I63.512 - Cerebral infarction due to unspecified occlusion or stenosis of left middle cerebral artery Status: Acute (3) Seizure: Code(s): R56.9 - Unspecified convulsions Status: Acute (4) Hyperlipidemia: Code(s): E78.5 - Hyperlipidemia, unspecified Status: Acute (5) HTN (hypertension): Code(s): I10 - Essential (primary) hypertension Status: Acute (6) Impaired mobility and activities of daily living: Code(s): Z74.09 - Other reduced mobility; Z78.9 - Other specified health status Status: Acute (7) Iron deficiency anemia: Code(s): D50.9 - Iron deficiency anemia, unspecified Status: Acute (8) Right-sided sensory deficit present: Code(s): R44.9 - Unspecified symptoms and signs involving general sensations and perceptions Status: Acute (9) Oropharyngeal dysphagia: Code(s): R13.12 - Dysphagia, oropharyngeal phase Status: Acute Plan This patient is a 67-year-old male presenting with functional limitations secondary to acute ischemic CVA. He was recently admitted to acute rehab less than a month ago after being diagnosed with acute thalamic CVA with new right-sided deficits. Underwent an unremarkable course and was discharged home on 11/15/2022. This time he presented to the hospital with new onset tonic-clonic seizures witnessed by his . MRI of the brain confirmed new area of ischemia. He is already on optimal stroke prevention therapy. Neurology recommends maintaining higher blood pressures to avoid cerebral hypoperfusion. * Hypotensive and high 90s over 60s this morning. Remained asymptomatic. Blood pressure regimen was adjusted with amlodipine held and valsartan dose decreased in half. Continue monitoring. Adjust BP regimen as needed to prevent hypotension. * Continue ASA, Plavix and atorvastatin for secondary stroke prevention. * Lovenox for DVT prophylaxis. * Hypokalemic at 3.2 on admission to rehab. Replaced with 40 mEq of KCl, recheck BMP tomorrow AM. * Trend H&H. History of iron deficiency anemia. Continue iron polysaccharide supplementation. Patient education Pressure ulcer prophylaxis; encourage mobilization, frequent postural changes, pressure-relief techniques DVT prophylaxis: Encourage deep breathing exercise incentive spirometry. Monitor bladder. Toileting schedule. Continue current bladder management, with scans as needed and CIC if needed. Start bowel care program every day to obtain continence, prevent ileus. Maintain fall precautions Gait and balance retraining Functional training and self-care and home management, including activities of daily living and instrumental activities of daily living Provision of the necessary gait aids and functional adaptive equipment to enhance the patient's a functional druze Ensure adequate nutrition and hydration Sleep: No concerns. Pain: No issues. Discharge planning: Home with in 7 to 10 days. I spent greater than 35 minutes for services, including [id number]-ia-[id number] encounter with the patient, discussion of the case, plan of care, and exam; and [id number]-[id number] activities, such as reviewing pertinent quality compliance consultant documentation, recent therapy notes, laboratory and radiology studies, and discussion of case with care team including physician, nursing, case folder, and therapists. More than 50 % of time was spent on patient/family counseling or coordination ofcare. Plan: I completed a substantive portion of this encounter, the medical decision makingportion of this note in its entirety, including Allied health note review, nursing note review, quality compliance consultant note review, discussion with nursing and case management, and more than 50% of my time was spent on counseling and coordination of care, time spent 75 minutes Patient was personally seen by me, Dr. Sen, on the day of encounter, within 24hours of rehab admission, reviewed the history and the relevant portions of the chart, including current orders, allied health and quality compliance consultant notes, labs/imaging and performed garner elements of exam and I formulated the plan of care and facilitated the medical decision making. In addition to above-Goal BP 140-160s with intracranial atherosclerosis. Seizureprecautions. Documented By: Janice Altamirano APRN 12/13/22 1 014 Signed By: <Electronically signed by JASMIN Altamirano> 12/13/22 1120 <Electronically signed by Jose Martin Sen MD> 12/13/22 1506 [facility] Work Phone: [phone]) 183-467810-17-2023 Consult note Author Santosh Rivera [facility] December 12, 2022 2:19pm Note Date/Time December 12, 2022 2 :11pm [facility] [address] [place] [address] Physiatry (Rehab) Consult Note Signed Patient: Viraj Doherty MR#: [id number] : 1955 Acct:[id number] Age/Sex: 67 / M Adm Date: 3 Loc: Room: [address] [place] [address] Type: ADM IN Attending Dr: Davey Harding MD Copies to: MD Santosh Woodward MD Douglas M Hoy, MD~ HPI Consult Date: 12/12/22 Requesting Physician: Davey Harding MD Primary Care Provider: Marilyn Patrick MD Consult Narrative Reason for consult: Evaluation for evaluation rehab HPI: Mr. Doherty is a 67 year old male with past medical history of thalamic stroke with right-sided hemiparesis and dysarthria [facility] who presented to [facility] following a generalized seizure witnessed by the patient's . The patient was admitted to the hospital seen by neurology. An EEG was done and was normal. An MRI was repeated and indicated a left MCA territory CVA. In addition multiple remote infarcts were noted along with a left thalamic stroke. Medical therapy was advised and patient was continued on dual antiplatelet therapy and high intensity statin as well as Keppra. The patient lives with his in a mobile home with 4 steps to enter. Currently in outpatient therapy for continued therapy following his CVA. PM&R was consulted for evaluation for inpatient rehab. This patient was seen and evaluated at bedside. Lying comfortably in bed and appears in no distress. Has no major concerns today. Continues to have some right lower extremity weakness as well as difficulty speaking. Denies chest pain, shortness of breath, fever, chills. Tolerating therapy well at his last rehab hospitalization will like to come back to rehab if possible. Review of Systems Review of Systems All other systems reviewed & are negative unless noted below or in HPI [facility] Medical History CVA (cerebral vascular accident) HTN (hypertension) Hx of TIA (transient ischemic attack) and stroke Family History Other Hypertension Social History Smoking Status: Former smoker Substance Use Type: None Meds Medications and Allergies Allergies No Known Allergies Allergy (Verified 10/30/22 19:24) Home Medications aspirin 81 mg tablet,delayed release 81 mg PO DAILY #0 tabs 11/02/22 [Rx Confirmed 12/10/22] atorvastatin 80 mg tablet 80 mg PO QPM #0 tabs 11/02/22 [Rx Confirmed 12/10/22] clopidogrel 75 mg tablet 75 mg PO DAILY #0 tabs 11/02/22 [Rx Confirmed 12/10/22] Humira 40 mg subcut Q14D ##0 11/14/22 [Rx Confirmed 12/10/22] amlodipine 10 mg-valsartan 320 mg-hydrochlorothiazide 25 mg tablet 1 tab PO DAILY 30 days #30 tabs 11/14/22 [Rx Confirmed 12/10/22] hydralazine 25 mg tablet 25 mg PO BID 30 days #60 tabs 11/14/22 [Rx Confirmed 12/10/22] potassium chloride 10 mEq tablet,extended release (Klor-Con) 20 meq PO DAILY 30 days #60 tabs 11/14/22 [Rx Confirmed 12/10/22] cyanocobalamin (vitamin B-12) 1,000 mcg capsule 1,000 mcg PO DAILY #90 caps 12/11/22 [Rx] levetiracetam 500 mg tablet 500 mg PO BID 90 days #180 tabs 12/11/22 [Rx] polysaccharide iron complex 150 mg iron capsule (Ferrex) 150 mg PO Q48H #90 caps 12/11/22 [Rx] Exam Physical Exam Vital Signs: Temp Pulse Resp BP Pulse Ox O2 Del Method 97.9 F 91 H 20 104/79 94 L Room Air 12/12/22 08:00 12/12/22 08:00 12/12/22 08:00 12/12/22 08:00 12/12/22 08:00 12/12/22 08:00 Narrative: General: Awake, A&O x 3, pleasant, cooperative, well nourished. Resting comfortably in bed HENT: NC, AT Eyes: No scleral icterus Neck: Supple Cardio: RRR, no murmurs, rubs or gallops Respiratory: CTAB, no wheezes rhonchi or rales. No evidence of respiratory distress GI: Soft, nontender, nondistended, bowel sounds normal in all 4 quadrants Neuro: CN II-XII intact. Strength 5/5 right upper and 4/5 lower extremities. Strength 5/5 left upper and lower extremities. Sensation intact bilateral lower extremities. Extremities: No edema, erythema, cyanosis Psych: Affect and movements normal. Mood congruent. Noted dysarthria Assessment/Plan (1) Seizure: Code(s): R56.9 - Unspecified convulsions Status: Acute (2) Acute ischemic left MCA stroke: Code(s): I63.512 - Cerebral infarction due to unspecified occlusion or stenosis of left middle cerebral artery Status: Acute (3) Cerebrovascular accident (CVA) of left thalamus: Code(s): I63.81 - Other cerebral infarction due to occlusion or stenosis of small artery Status: Acute (4) Right hemiplegia: Code(s): G81.91 - Hemiplegia, unspecified affecting right dominant side Status: Acute (5) Dysarthria: Code(s): R47.1 - Dysarthria and anarthria Status: Acute (6) Intracranial atherosclerosis: Code(s): I67.2 - Cerebral atherosclerosis Status: Acute (7) Hyperlipidemia: Code(s): E78.5 - Hyperlipidemia, unspecified Status: Acute (8) Oropharyngeal dysphagia: Code(s): R13.12 - Dysphagia, oropharyngeal phase Status: Acute Plan This is a 67-year-old male with past medical history of left thalamic CVA who presents to [facility] following hospitalization for new left MCA CVA and seizure disorder. He has continued impaired mobility and impaired independence with ADLs and IADLs requiring PT/OT/SWITCHBOARD INSTALLER 5-7 days/week 3 hours/day to maximize safety and independence with functional ability and self-care. Primary Rehabilitation Diagnosis: Left MCA CVA with residual RLE weakness and dysarthria Patient is appropriate for acute inpatient rehab facility once medically stable per primary service and consultants. The patient has functional deficits requiring both active and ongoing therapeutic intervention of at least 2 disciplines of therapy, physical therapy/Occupational Therapy +/- speech therapy. Patient has worked appropriately with multiple disciplines of therapy on acute care, and demonstrates ability to tolerate and participate and make reasonable gains with at least a 15 hour/week inpatient rehabilitation program. Due to medical complexity as noted, rehabilitation physician supervision is both reasonable and necessary, including [id number]-xp-[id number] visits at least 3 days/week with the need to treat, manage and modify course of treatment, including participating in at least once weekly interdisciplinary team conferences. The patient requires multidisciplinary rehabilitation treatment including rehabilitation physician at least 3 times per week, 24-hour rehabilitation nursing, physical occupational therapy, plus/minus speech-language pathology, rehabilitation case management, nutrition services, plus minus rehabilitation psychology. This case cannot be best/most appropriately managed at a lower level of care. Estimated length of rehabilitation stay: 14 Days Prior Level of Function: Mod I Expected functional status at discharge from rehab: Self-care (ADLs) : Mod I Bed Mobility/Transfers: Mod I Ambulation: Mod I Cognition: Mod I Swallowing: Mod I There is a reasonable plan in place for discharge to the community. Overall prognosis is fair to good to make functional gains that would make substantial difference in the eventual discharge setting. Plan: I completed a substantive portion of this encounter, the medical decision making portion of this note in its entirety, including Allied health note review, nursing note review, quality compliance consultant note review, discussion with nursing and case management, and more than 50% of my time was spent on counseling and coordination of care, time spent 65 minutes Patient was personally seen by me, Dr. Rivera, on the day of encounter, reviewed the history and the relevant portions of the chart, including current orders, allied health and quality compliance consultant notes, labs/imaging and performed garner elements of exam and I formulated the plan of care and facilitated the medical decision making. Documented By: Santosh Rivera MD 1410 Signed By: <Electronically signed by Santosh Rivera MD> 12/12/22 1419 [facility] Work Phone: 1(701) 907-264310-17-2023 Progress note Author Davey Harding [facility] December 12, 2022 1:27pm Note Date/Time December 12, 2022 1 :27pm [facility] [address] [place] [address] Hospitalist Progress Note Signed Patient: Viraj Doherty MR#: [id number] : 1955 Acct:[id number] Age/Sex: 67 / M Adm Date: 3 Loc: Room: [address] [place] [address] Type: ADM IN Attending Dr: Davey Harding MD Copies to: ~ Date of Service: 12/12/2022 Subjective Subjective Narrative: Patient is feeling well. No new complaints. On examination he remains dysarthric, at baseline, and mild left-sided weakness persist. No further seizure activity noted. Heart is regular Lungs clear Abdomen soft benign Exam Physical Exam Vital Signs: Temp Pulse Resp BP Pulse Ox O2 Del Method 97.9 F 91 H 20 104/79 94 L Room Air 12/12/22 08:00 12/12/22 08:00 12/12/22 08:00 12/12/22 08:00 12/12/22 08:00 12/12/22 08:00 Objective Lab Results 12/11/22 03:59 12/11/22 03:59 Meds Allergies and Active Meds Allergies No Known Allergies Allergy (Verified 10/30/22 19:24) Active Meds: Active Medications Generic Name Dose Route Start Last Admin Trade Name Juan PRN Reason Stop Dose Admin Amlodipine Besylate 10 mg 12/10/22 09:00 12/12/22 10:14 Amlodipine 10 Mg Tablet PO 12/10/23 08:59 10 mg DAILY LEVON Administration Aspirin 81 mg 12/10/22 09:00 12/12/22 10:14 Aspirin 81 Mg Tablet.Dr PO 12/10/23 08:59 81 mg DAILY LEVON Administration Atorvastatin Calcium 80 mg 12/10/22 21:00 12/11/22 20:33 Atorvastatin 80 Mg Tablet PO 12/10/23 20:59 80 mg QPM LEVON Administration Clopidogrel Bisulfate 75 mg 12/10/22 09:00 12/12/22 10:14 Clopidogrel Bisulfate 75 Mg Tablet PO 12/10/23 08:59 75 mg DAILY LEVON Administration Enoxaparin Sodium 40 mg 12/10/22 10:00 12/12/22 10:15 Enoxaparin 40 Mg/0.4 Ml Syringe SUBCUT 12/10/23 09:59 40 mg DAILY@10 LEVON Administration Levetiracetam 500 mg 12/10/22 09:00 12/12/22 10:14 Levetiracetam 500 Mg Tablet PO 12/10/23 08:59 500 mg BID LEVON Administration Polysaccharide Iron Complex 150 mg 12/11/22 15:15 12/11/22 16:58 Iron Polysaccharide Complex 150 Mg Capsule PO 12/11/23 15:14 150 mg Q48H LEVON Administration Sodium Chloride 0 ml 12/10/22 22:42 12/11/22 03:13 Sodium Chloride 0.9 % 10 Ml Syringe IV-PUSH 12/10/23 22:41 10 ml PRN PRN Administration Flush Valsartan 320 mg 12/10/22 09:00 12/12/22 10:15 Valsartan 320 Mg Tablet PO 12/10/23 08:59 320 mg DAILY LEVON Administration A&P - Hospitalist Assessment/Plan (1) Seizure: Plan 1. New acute ischemic stroke, with new onset seizure disorder. Known history of cerebrovascular disease, critical left MCA stenosis, recent thalamic stroke with residual dysarthria and hemiparesis Continue Keppra and medical therapy for cerebrovascular disease. Patient is medically stable to be discharged to inpatient rehab as planned. Discharge medications reviewed and updated. #2 anemia. Continue B12 supplementation. MMA levels pending. Documented By: Davey Harding MD 12/12/225 Signed By: <Electronically signed by Davey Harding MD> 12/12/22 1327 [facility] Work Phone: [phone]) 996-197810-17-2023 Discharge summary Author Davey Harding [facility] December 12, 2022 1:25pm Note Date/Time December 11, 2022 2 :52pm [facility] [address] [place] [address] Discharge Summary Signed Patient: Viraj Doherty MR#: [id number] : 1955 Acct:[id number] Age/Sex: 67 / M Adm Date: 3 Loc: Room: [address] [place] [address]: Davey Harding MD Copies to: MD Marilyn Woodward MD~ Providers Date of Discharge: 12/12/22 Discharging Provider: Davey Harding Primary Care Provider: Marilyn Patrick Consults: 12/10/22 00:12 Consult to Neurology Routine Discharge Diagnosis Final Diagnosis Final Discharge Diagnosis: New acute ischemic stroke in the left MCA territory, where there is known critical stenosis New onset seizure disorder Chronic problems Cerebrovascular disease and history of left thalamic ischemic stroke October 2022 with dysarthria Hypertension Dyslipidemia Prediabetes Summary Hospital Course Hospital course: Patient is a 67-year-old male, with a recent history of thalamic stroke, right- sided hemiparesis and dysarthria. He was recently admitted and treated for thatat the beginning of October. He presented back to the emergency department onDecember 09, after he sustained a generalized seizure witnessed by his . He was admitted to the hospital. He was seen by neurology. An EEG was normal. An MRI was repeated, indicating left MCA territory ischemia. Multiple remote infarcts were noted, along with the recent left thalamic stroke. Medical therapy was advised, and the patient was discharged to inpatient rehab on December 12. He will continue dual antiplatelets and high intensity statin. Follow-up with PCP and neurology. Time Spent with Patient Time spent providing/coordinating discharge services (# min): 36 Diagnostic Studies Completed and Pending Studies Pending studies at discharge: 12/10/22 15:15 Stool Occult Blood (Guaiac) Routine Labs on day of discharge: 12/11/22 03:59: PHA Creatinine Clear 66.33, Sodium 142, Potassium 3.5, Chloride 105, Carbon Dioxide 30.4, Anion Gap 10.1, BUN 13, Creatinine 1.06, Est GFR (CKD-EPI) > 60.0, Glucose 99, Calcium 9.2 12/11/22 03:59: Corrected WBC 8.1, Uncorrected WBC Count 8.1, RBC 2.84 L, Hgb 9.1 L, Hct 24.6 L, MCV 86.7, MCH 31.9, MCHC 36.8 H, RDW 14.4, Plt Count 229, MPV7.4, Neut % (Auto) 58.7, Lymph % (Auto) 30.3, [place] % (Auto) 7.5, Eos % (Auto) 2.3, Baso % (Auto) 1.2, Nucleat RBC Rel Count 0.1, Neut # (Auto) 4.7, Lymph # (Auto) 2.4, [place] # (Auto) 0.6, Eos # (Auto) 0.2, Baso # (Auto) 0.1 12/10/22 15:28: Magnesium 1.9, Iron 38 L, TIBC 329, Iron Saturation 11.6 L, Transferrin 235, Ferritin 33.0, Vitamin B12 228, Folate 10.4 12/10/22 15:28: Hgb 8.6 L, Hct 24.0 L Exam Physical Exam Vital Signs: Temp Pulse Resp BP Pulse Ox O2 Del Method 97.7 F 81 21 127/79 97 Room Air 12/11/22 12:00 12/11/22 12:00 12/11/22 12:00 12/11/22 12:00 12/11/22 12:00 12/11/22 12:00 Discharge Plan Discharge Plan Patient Disposition: Rehab [facility] Activity: Other Comment: Please follow seizure precautions Diet: Low-Fat and Low-Cholesterol Additional Instructions: REHAB TO MANAGE: PT/OT to eval and treat Monitor VS per protocol Monitor Neuro. assessment--CVA Maintain seizure precautions Care to be managed by Rehab providers Prescriptions: New levetiracetam 500 mg Tablet 500 mg PO BID 90 Days Qty: 180 0RF polysaccharide iron complex [Ferrex 150] 150 mg iron Capsule 150 mg PO Q48H Qty: 90 0RF cyanocobalamin (vitamin B-12) 1,000 mcg capsule 1,000 mcg PO DAILY Qty: 90 0RF Continued potassium chloride [Klor-Con 10] 10 mEq Tablet Extended Release 20 meq PO DAILY 30 Days Qty: 60 0RF Humira 40 mg subcut Q14D Qty: 0 0RF wgpigvtoeq-cfcgiepsq-rmcdvidsm 10-320-25 mg tablet 1 tab PO DAILY 30 Days Qty: 30 0RF atorvastatin 80 mg Tablet 80 mg PO QPM Qty: 0 0RF clopidogrel 75 mg Tablet 75 mg PO DAILY Qty: 0 0RF aspirin 81 mg Tablet,Delayed Release (Dr/Ec) 81 mg PO DAILY Qty: 0 0RF Held hydralazine 25 mg Tablet 25 mg PO BID 30 Days Qty: 60 0RF Hold Instructions: Resume on 12/25/22. Check with your family doctor with next visit whether you need to restart this. Follow Up: [facility] [Outside] - 12/26/22 9:00 am Documented By: Davey Harding MD 12/11/22 0543 Signed By: <Electronically signed by Davey Harding MD> 12/12/22 1326 [facility] Work Phone: [phone]) 639-403710-16-2023 Progress note Author Jose David Aponte [facility] December 11, 2022 3:31pm Note Date/Time December 11, 2022 3 :31pm [facility] [address] [place], [place] [id number] Neurology Progress Note Signed Patient: Viraj Doherty MR#: [id number] : 1955 Acct:[id number] Age/Sex: 67 / M Adm Date: 3 Loc: Room: [address] [place] [address] Type: ADM IN Attending Dr: Davey Harding MD Copies to: ~ Date of Service: 12/11/2022 Exam Physical Exam Vital Signs: Temp Pulse Resp BP Pulse Ox O2 Del Method 97.9 F 76 21 141/66 H 98 Room Air 12/11/22 08:00 12/11/22 08:00 12/11/22 08:00 12/11/22 08:00 12/11/22 08:00 12/11/22 08:00 Objective Vital Signs Vital Signs: Vital Signs - 24 hr 12/10/22 10:00 12/10/22 11:00 12/10/22 12:00 Temperature 98.5 F Pulse Rate [Monitor] 67 72 68 Respiratory Rate 16 20 19 Blood Pressure [Left Arm] 147/67 H 121/65 127/73 02 Sat by Pulse Oximetry 97 97 Oxygen Delivery Method Room Air Room Air Room Air 12/10/22 12:00 12/10/22 13:00 12/10/22 14:00 Temperature Pulse Rate [Monitor] 70 72 Respiratory Rate 19 18 Blood Pressure [Left Arm] 140/65 121/58 L 02 Sat by Pulse Oximetry Oxygen Delivery Method Room Air Room Air Room Air 12/10/22 15:00 12/10/22 16:00 12/10/22 17:00 Temperature 98.2 F Pulse Rate [Monitor] 65 94 H 64 Respiratory Rate 17 18 18 Blood Pressure [Left Arm] 120/62 128/80 98/55 L 02 Sat by Pulse Oximetry 96 Oxygen Delivery Method Room Air Room Air 12/10/22 18:00 12/10/22 19:00 12/10/22 20:00 Temperature 98.9 F Pulse Rate [Monitor] 78 68 70 Respiratory Rate 22 18 16 Blood Pressure [Left Arm] 147/77 H 115/64 118/60 02 Sat by Pulse Oximetry 97 97 Oxygen Delivery Method Room Air Room Air 12/10/22 22:00 12/10/22 23:00 12/11/22 00:00 Temperature 97.5 F L Pulse Rate [Monitor] 62 64 70 Respiratory Rate 22 19 24 Blood Pressure [Left Arm] 122/63 154/84 H 103/51 L 02 Sat by Pulse Oximetry 98 Oxygen Delivery Method Room Air 12/11/22 00:00 12/11/22 01:00 12/11/22 02:00 Temperature Pulse Rate [Monitor] 63 66 Respiratory Rate 17 23 Blood Pressure [Left Arm] 113/61 133/66 02 Sat by Pulse Oximetry 97 Oxygen Delivery Method Room Air Room Air 12/11/22 03:00 12/11/22 03:31 12/11/22 04:00 Temperature 97.8 F Pulse Rate [Monitor] 74 71 Respiratory Rate 21 16 Blood Pressure [Left Arm] 100/54 L 110/58 L 02 Sat by Pulse Oximetry 96 Oxygen Delivery Method Room Air Room Air Room Air 12/11/22 08:00 12/11/22 08:00 Temperature 97.9 F Pulse Rate [Monitor] 76 Respiratory Rate 21 Blood Pressure [Left Arm] 141/66 H 02 Sat by Pulse Oximetry 98 Oxygen Delivery Method Room Air Room Air Labs 12/11/22 03:59 12/11/22 03:59 Therapy Recommendations Therapy Recommendations: ST Recommendations ST Recommended Services at Speech Therapy,18/09 Supervision Discharge Assessment/Plan (1) Seizure: Code(s): R56.9 - Unspecified convulsions Status: Acute Plan CONSULT REASON: Seizure SUBJECTIVE: Patient was drowsy this morning. He was not oriented to location, month, or year. He also did not know who was president. He continued to have difficulty following commands. It was unclear whether this was due to drowsiness or some receptive aphasia. He acknowledged the command, but then would not perform the action. He kept repeating that it was 2:30 in the morning and that he does notget up this early. Per nurse, no seizure-like activity. No further symptoms to add to ROS. When we went back to see him in the early afternoon his was there. She described the seizure she witnessed at home, and it sounds generalized tonic-clonic. She says that his current language and speech dysfunction fluctuate a little bit but are pretty much the same as they have been since the stroke back in October. She has not noticed any new differences of concern. EXAMINATION: Well-kempt. No distress. No deformities or trauma. Normal spinal curvature. Limbs seem well-perfused. No significant edema. Normal work of breathing. Visualized skin is generally intact and without lesions. Affect normal. Patient is drowsy. Attention seems mildly impaired. Mildly dysarthric. May have some mild expressive aphasia as well. Seemingly has some receptive aphasia, and has significant difficulty following anything more than a simple one-step commands. Pupils are equal and reactive. Ocular motility is full. No nystagmus. Facial sensation is normal. Hearing is normal. Facial strength is normal. Right upper extremity appears to have slightly decreased strength than the left upper extremity. No tremors. Reflexes hypoactive throughout. No pathologic reflexes. Light touch is normal. Normal rapidly alternating movements. No limb dysmetria with [id number] testing. DATA REVIEW: -CT head without acute findings, showed bilateral remote basal ganglia lacunar infarctions, diffuse atrophy, small vessel ischemic changes -CTA head and neck shows a 1 cm segment of critical stenosis in the left MCA M1 segment distally and occlusion of the distal M2 segment -Total cholesterol 244, LDL 179 -A1c 6.1% -MRI of brain from October 31, 2022 at that time showed a late subacute infarctin the left thalamic region and confluent white matter changes especially posteriorly -Routine EEG December 10, 2022 normal -MRI brain with and without showed new areas of acute ischemia in left MCA territory, greatest along the left MCA/[place] watershed territory. ASSESSMENT: 1. New onset generalized tonic-clonic seizure caused by acute ischemic stroke. Multiple new tiny scattered areas of acute ischemia (some cortically-based) in the left MCA territory, all downstream from a known severely stenotic M1 segmentof his left MCA. His routine EEG was unremarkable. 2. 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 Would not be epileptogenic. Currently maximally medically managed on aspirin 81 mg daily, atorvastatin 80 mgQPM, and clopidogrel 75 mg daily. 3. History of intracranial atherosclerosis, with most concerning portion being that of short segment narrowing of the left MCA M1 segment and there is possiblydownstream occlusion of the distal M2 segment on that side. Concern that hypotension may have contributed to new areas of ischemia in left MCA territory. PLAN: 1. Antihypertensive medications might need to be reduced. His is very good about checking his blood pressure frequently and regularly at home and notices occasional mildly hypotensive values. Has occasional systolic and diastolic hypotension here. Significant hypotension could predispose him to hypoperfusion past that focally-stenosed left M1 artery. 2. Continue Keppra 500 mg twice daily 3. From a neurological standpoint, no further testing is needed at this time. Recommend follow-up with neurologist as outpatient. Documented By: Jose David Aponte DO 12/11/22925 Signed By: <Electronically signed by Jose David Aponte, DO> 12/11/22 1531 [facility] Work Phone: 1(223) 622-515810-16-2023 Progress note Author Davey Harding [facility] December 11, 2022 3:09pm Note Date/Time December 11, 2022 3 :09pm [facility] [address] [place] [address] Hospitalist Progress Note Signed Patient: Viraj Doherty MR#: [id number] : 1955 Acct:[id number] Age/Sex: 67 / M Adm Date: 3 Loc: Room: [address] [place] [address] Type: ADM IN Attending Dr: Davey Harding MD Copies to: ~ Date of Service: 12/11/2022 Subjective Subjective Narrative: Patient remains slightly confused, dysarthric. He does have residual left hemiparesis. His is at bedside. Heart is regular Lungs clear Abdomen soft benign Exam Physical Exam Vital Signs: Temp Pulse Resp BP Pulse Ox O2 Del Method 97.7 F 81 21 127/79 97 Room Air 12/11/22 12:00 12/11/22 12:00 12/11/22 12:00 12/11/22 12:00 12/11/22 12:00 12/11/22 12:00 Objective Lab Results 12/11/22 03:59 12/11/22 03:59 Meds Allergies and Active Meds Allergies No Known Allergies Allergy (Verified 10/30/22 19:24) Active Meds: Active Medications Generic Name Dose Route Start Last Admin Trade Name Freq PRN Reason Stop Dose Admin Amlodipine Besylate 10 mg 12/10/22 09:00 12/11/22 09:52 Amlodipine 10 Mg Tablet PO 12/10/23 08:59 10 mg DAILY LEVON Administration Aspirin 81 mg 12/10/22 09:00 12/11/22 09:51 Aspirin 81 Mg Tablet.Dr RAZA 12/10/23 08:59 81 mg DAILY LEVON Administration Atorvastatin Calcium 80 mg 12/10/22 21:00 12/10/22 22:24 Atorvastatin 80 Mg Tablet PO 12/10/23 20:59 80 mg QPM LEVON Administration Clopidogrel Bisulfate 75 mg 12/10/22 09:00 12/11/22 09:51 Clopidogrel Bisulfate 75 Mg Tablet PO 12/10/23 08:59 75 mg DAILY LEVON Administration Cyanocobalamin 1,000 mcg 12/10/22 18:00 12/11/22 09:52 Cyanocobalamin 1,000 Mcg/Ml Vial IM 12/14/22 09:01 1,000 mcg DAILY LEVON Administration Enoxaparin Sodium 40 mg 12/10/22 10:00 12/11/22 10:55 Enoxaparin 40 Mg/0.4 Ml Syringe SUBCUT 12/10/23 09:59 40 mg DAILY@10 LEVON Administration Levetiracetam 500 mg 12/10/22 09:00 12/11/22 09:51 Levetiracetam 500 Mg Tablet PO 12/10/23 08:59 500 mg BID LEVON Administration Sodium Chloride 0 ml 12/10/22 22:42 12/11/22 03:13 Sodium Chloride 0.9 % 10 Ml Syringe IV-PUSH 12/10/23 22:41 10 ml PRN PRN Administration Flush Valsartan 320 mg 12/10/22 09:00 12/11/22 09:51 Valsartan 320 Mg Tablet PO 12/10/23 08:59 320 mg DAILY LEVON Administration A&P - Hospitalist Assessment/Plan (1) Seizure: Plan 1. New acute ischemic stroke, with new onset seizure disorder. Known history of cerebrovascular disease, critical left MCA stenosis, recent thalamic stroke with residual dysarthria and hemiparesis Continue Keppra Continue medical therapy for cerebrovascular disease Appreciate input from neurology PT OT. Evaluation for inpatient rehab #2 anemia. Continue B12 supplementation. Check MMA, B12 level is low. Also low iron stores. Initiate oral supplementation Documented By: Davey Harding MD 12/11/22 1507 Signed By: <Electronically signed by Davey Harding MD> 12/11/22 150 [facility] Work Phone: 1(716) 268-960110-16-2023 Progress note Author Mindi Juan [facility] December 10, 2022 10:03pm Note Date/Time December 10, 2022 9 :59pm [facility] [address] [place] [address] Hospitalist Progress Note Signed Patient: Viraj Doherty MR#: [id number] : 1955 Acct:[id number] Age/Sex: 67 / M Adm Date: 3 Loc: Room: [address] [place] [address] Type: ADM IN Attending Dr: Mindi Juan MD Copies to: ~ Date of Service: 12/10/2022 Subjective Subjective Narrative: Patient has been seen and examined today. Doing quite well. Denies any complaints. Denies any abdominal. No nausea. No melena, no hematemesis no hematochezia Patient is poor historian, but denies any history of EGD or colonoscopy Physical exam: General Sleepy but arousable, with dysarthria Cardiovascular -S1 with S2, no murmurs, no rubs, no gallops Pulmonary - clear to auscultation bilaterally Gastrointestinal - abdomen is soft, nondistended, nontender, bowel sounds positive, there is no rigidity, no rebound Extremities -no edema Laboratory work up and Imaging studies reviewed telemetry monitor - reviewed EKG - personally reviewed by me. NSR with nonspecific changes Exam Physical Exam Vital Signs: Temp Pulse Resp BP Pulse Ox O2 Del Method 37.2 C 70 16 118/60 97 Room Air 12/10/22 20:00 12/10/22 20:00 12/10/22 20:00 12/10/22 20:00 12/10/22 20:00 12/10/22 20:00 Objective Lab Results 12/10/22 15:28 12/10/22 04:54 Meds Allergies and Active Meds Allergies No Known Allergies Allergy (Verified 10/30/22 19:24) Active Meds: Active Medications Generic Name Dose Route Start Last Admin Trade Name Narinderq PRN Reason Stop Dose Admin Amlodipine Besylate 10 mg 12/10/22 09:00 12/10/22 09:10 Amlodipine 10 Mg Tablet PO 12/10/23 08:59 10 mg DAILY LEVON Administration Aspirin 81 mg 12/10/22 09:00 12/10/22 09:10 Aspirin 81 Mg Tablet. PO 12/10/23 08:59 81 mg DAILY LEVON Administration Atorvastatin Calcium 80 mg 12/10/22 21:00 Atorvastatin 80 Mg Tablet PO 12/10/23 20:59 QPM [facility] Clopidogrel Bisulfate 75 mg 12/10/22 09:00 12/10/22 09:10 Clopidogrel Bisulfate 75 Mg Tablet PO 12/10/23 08:59 75 mg DAILY LEVON Administration Cyanocobalamin 1,000 mcg 12/10/22 18:00 Cyanocobalamin 1,000 Mcg/Ml Vial IM 12/14/22 09:01 DAILY LEVON Enoxaparin Sodium 40 mg 12/10/22 10:00 12/10/22 09:11 Enoxaparin 40 Mg/0.4 Ml Syringe SUBCUT 12/10/23 09:59 40 mg DAILY@10 LEVON Administration Hydralazine HCl 10 mg 12/10/22 15:15 Hydralazine 20 Mg/Ml Vial IV-PUSH 12/10/23 15:14 Q4H PRN if SBP > 185 Levetiracetam 500 mg 12/10/22 09:00 12/10/22 09:10 Levetiracetam 500 Mg Tablet PO 12/10/23 08:59 500 mg BID LEVON Administration Valsartan 320 mg 12/10/22 09:00 12/10/22 09:11 Valsartan 320 Mg Tablet PO 12/10/23 08:59 320 mg DAILY LEVON Administration A&P - Hospitalist Assessment/Plan (1) Seizure: Plan 1. New onset seizure - on keppra, neurology following 2. Recent thalamic CVA with residual dysarthria 3. HTN 4. Iron def anemia - HH drop from 1 m ago, recheck in am peobably needs evaluated as outpt Guaiac stool pending 5. HypoKalemia - replaced Documented By: Mindi Juan MD 12/10/222152 Signed By: <Electronically signed by Mindi Juan MD> 12/10/222202 [facility] Work Phone: 1([phone]) 871-673110-15-2023 Consult note Author Jose David Aponte [facility] December 10, 2022 3:17pm Note Date/Time December 10, 2022 1 0:51am [facility] [address] [place] [address] Neurology Consult Note Signed Patient: Viraj Doherty MR#: [id number] : 1955 Acct:[id number] Age/Sex: 67 / M Adm Date: 3 Loc: 4C Room: 1P5899-1 Type: ADM IN Attending Dr: Mindi Juan MD Copies to: DO Marilyn Abbott MD Ruta Semaskiene, MD~ HPI Consult Date: 12/10/22 Base Filler Operator: Jose David Aponte DO [facility] Medical History CVA (cerebral vascular accident) HTN (hypertension) Hx of TIA (transient ischemic attack) and stroke Family History (Updated 11/03/22 @ 15:56 by Rohan Levy DO) Other Hypertension Social History Smoking Status: Never smoker Substance Use Type: None Meds Medications and Allergies Allergies No Known Allergies Allergy (Verified 10/30/22 19:24) Home Medications aspirin 81 mg tablet,delayed release 81 mg PO DAILY #0 tabs 11/02/22 [Rx Confirmed 12/10/22] atorvastatin 80 mg tablet 80 mg PO QPM #0 tabs 11/02/22 [Rx Confirmed 12/10/22] clopidogrel 75 mg tablet 75 mg PO DAILY #0 tabs 11/02/22 [Rx Confirmed 12/10/22] Humira 40 mg subcut Q14D ##0 11/14/22 [Rx Confirmed 12/10/22] amlodipine 10 mg-valsartan 320 mg-hydrochlorothiazide 25 mg tablet 1 tab PO DAILY 30 days #30 tabs 11/14/22 [Rx Confirmed 12/10/22] hydralazine 25 mg tablet 25 mg PO BID 30 days #60 tabs 11/14/22 [Rx Confirmed 12/10/22] potassium chloride 10 mEq tablet,extended release (Klor-Con) 20 meq PO DAILY 30 days #60 tabs 11/14/22 [Rx Confirmed 12/10/22] Exam Physical Exam Vital Signs: Temp Pulse Resp BP Pulse Ox O2 Del Method 98.5 F 67 16 147/67 H 97 Room Air 12/10/22 08:00 12/10/22 10:00 12/10/22 10:00 12/10/22 10:00 12/10/22 09:00 12/10/22 10:00 Results Laboratory Findings 12/10/22 04:54 12/10/22 04:54 Therapy Recommendations Therapy Recommendations: ST Recommendations ST Recommended Services at Speech Therapy,18/09 Supervision Discharge Assessment/Plan (1) Seizure: Assessment/Problem Details: CONSULT REASON: Seizure HPI: 67-year-old man with recent history (early October 2022) of a left lateral thalamic stroke who had a witnessed seizure on December 09, 2022. It is apparently generalized tonic-clonic. His thought. Viraj has no recollection of the event whatsoever. Cannot provide for me any meaningful history about the event. Currently he feels at his baseline. He says after his stroke back in October he was not left with any unilateral deficits. His speech has been affected. His language has been affected. He seems to have some degree ofaphasia which limits his ability to provide history. No history of seizures before. He was started on Keppra here. Home medications include aspirin 81 mg,atorvastatin 80 mg, clopidogrel 75 mg daily. EXAMINATION: Well-kempt. No distress. No deformities or trauma. Normal spinal curvature. Limbs seem well-perfused. No significant edema. Normal work of breathing. Visualized skin is generally intact and without lesions. Affect normal. Patient is alert. Attention seems mildly impaired. Mildly dysarthric. May have some mild expressive aphasia as well. Seemingly has some receptive aphasia, and has significant difficulty following anything more than a simple one-step commands. Pupils are equal and reactive. Ocular motility is full. Nonystagmus. Facial sensation is normal. Hearing is normal. Facial strength is normal. Muscle bulk, tone, and strength are normal. No tremors. Reflexes hypoactive throughout. No pathologic reflexes. Light touch is normal. Normal rapidly alternating movements. No limb dysmetria with [id number] testing. DATA REVIEW: -CT head without acute findings, showed bilateral remote basal ganglia lacunar infarctions, diffuse atrophy, small vessel ischemic changes -CTA head and neck shows a 1 cm segment of critical stenosis in the left MCA M1 segment distally and occlusion of the distal M2 segment -Total cholesterol 244, LDL 179 -A1c 6.1% -MRI of brain from October 31, 2022 at that time showed a late subacute infarctin the left thalamic region and confluent white matter changes especially posteriorly -Routine EEG December 10, 2022 normal ASSESSMENT: 1. New onset generalized tonic-clonic seizure. No clear precipitant. His stroke from back in October was in the thalamus and he had no cortical ischemia that would put him at risk for poststroke seizures. He has significant whitematter changes but again these would not be expected to be epileptogenic. His routine EEG was unremarkable. 2. 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 3. History of intracranial atherosclerosis, with most concerning portion being that of short segment narrowing of the left MCA M1 segment and there is possiblydownstream occlusion of the distal M2 segment on that side. PLAN: 1. MRI brain with and without contrast pending 2. Continue the Keppra that was started 3. Further recommendations to follow Code(s): R56.9 - Unspecified convulsions Status: Acute Documented By: Jose David Aponte DO 12/10/22 1051 Signed By: <Electronically signed by Jose David Aponte DO> 12/10/22 7158 [facility] Work Phone: 1(322) 464-482210-15-2023 History and physical note Author Ton Wilkinson [facility] December 10, 2022 12:15am Note Date/Time December 09, 2022 1 1:30pm [facility] [address] [place] [address] Hospitalist H&P Signed Patient: Viraj Doherty MR#: [id number] : 1955 Acct:[id number] Age/Sex: 67 / M Adm Date: 3 Loc: Room: [address] [place] [address] Type: ADM IN Attending Dr: Ton Wilkinson MD Copies to: MD Ton Millan MD~ HPI DATE OF EXAMINATION: 12/09/22 CHIEF COMPLAINT: Seizure HISTORY OF PRESENT ILLNESS: This is a 67-year-old male with recent history of thalamic CVA who had a witnessed seizure today and was [facility]. The patient had a witnessed generalized seizure by his . No prior history of seizure. Deniesany chest pain headache visual changes or no neurologic symptoms. Noncontrast CT of the head did not show any acute changes. The patient was admitted to [facility] for further management Review of Systems Review of Systems All other systems reviewed & are negative unless noted below or in HPI [facility] Medical History CVA (cerebral vascular accident) HTN (hypertension) Hx of TIA (transient ischemic attack) and stroke Family History (Updated 11/03/22 @ 15:56 by Rohan Levy DO) Other Hypertension Social History Smoking Status: Never smoker Substance Use Type: None Meds Medications and Allergies Allergies No Known Allergies Allergy (Verified 10/30/22 19:24) Home Medications aspirin 81 mg tablet,delayed release 81 mg PO DAILY #0 tabs 11/02/22 [Rx Confirmed 12/10/22] atorvastatin 80 mg tablet 80 mg PO QPM #0 tabs 11/02/22 [Rx Confirmed 12/10/22] clopidogrel 75 mg tablet 75 mg PO DAILY #0 tabs 11/02/22 [Rx Confirmed 12/10/22] Humira 40 mg subcut Q14D ##0 11/14/22 [Rx] amlodipine 10 mg-valsartan 320 mg-hydrochlorothiazide 25 mg tablet 1 tab PO DAILY 30 days #30 tabs 11/14/22 [Rx Confirmed 12/10/22] hydralazine 25 mg tablet 25 mg PO BID 30 days #60 tabs 11/14/22 [Rx] potassium chloride 10 mEq tablet,extended release (Klor-Con) 20 meq PO DAILY 30 days #60 tabs 11/14/22 [Rx] Exam Physical Exam Narrative: Patient is awake and alert, oriented to place, time and person HEENT: pink conjunctiva and normal buccal mucosa Neck: supple, no tenderness Endocrine: no thyromegaly Vascular: No JVD or carotid bruit Lymphatic: no cervical lymphadenopathy Chest: CTA bilaterally Heart: RRR, no extra sounds or murmurs Abd: soft NT, no rebound or rigidity Ext: no cyanosis or clubbing, no varices or edema Neuro: A&O x3, dysarthric, normal and symmetrical motor and tone examination throughout Assessment & Plan Assessment/Plan (1) Seizure: Plan New onset seizure Recent thalamic CVA with residual dysarthria, hypertension Plan: Start Keppra, check MRI of the brain, consult neurology Neurochecks every 4 hours Lovenox for DVT prophylaxis IP vs OBS Justification Based on differential dx, clinical care plan, and risk of adverse events, if untreated, in my clinical judgement this patient requires an acute care setting as: INPATIENT because of an expectation of an over 2 midnight stay. Estimated length of stay (# of days): 2 Documented By: Ton Wilkinson MD 12/09/22 9603 Signed By: <Electronically signed by Ton Wilkinson MD> 12/10/22 0015 [facility] Work Phone: [phone]) 743-642009-19-2023 Progress note Author Jose Martin Sen [facility] November 14, 2022 10:36am Note Date/Time November 14, 2022 10:36am [facility] [address] [place] [address] Physiatry(Rehab) Progress Note Signed Patient: Viraj Doherty MR#: [id number] [id number] : 1955 Acct:[id number] Age/Sex: 67 / M Adm Date: 3 Loc: Room: 0Q4286-0 Type: ADM IN Attending Dr: Jose Martin Sen MD Copies to: ~ Date of Service: 11/14/2022 Subjective Subjective Narrative: Mr. Doherty is a 67 year old male with a history of hypertension, previous CVA, psoriasis who initially presented to our emergency department on 10/30/22 for difficulty finding words and slurred speech as well as right-sided weakness which started the night prior to arrival. CT in the emergency department showedno acute intracranial abnormality with old bilateral lacunar infarcts, however CTA of the brain showed 1 cm segment of critical stenosis involving the left MCAM1 segment which is causing compromise flow along with occlusion of the distal M2 segment of the left frontal lobe. Case was discussed between ER physician and [facility] who requested the patient stay in the hospital for further CVA work- up. While in the hospital, MRI was performed and showed evidence of late subacute infarct involving the left thalamus. His bloodpressure was also found to be elevated during this stay with systolics in the 220s initially. Patient had reportedly stopped taking his antihypertensive medications at home. Patient was seen by neurology while in the hospital who recommended continued dual antiplatelet therapy with aspirin 81 mg and clopidogrel 75 mg as well as continuing 80 mg of Lipitor and consistent blood pressure control. Patient was seen in consult by Dr. Sen while in the hospital who agreed with admission to the inpatient rehab unit. Upon my evaluation of the patient on the inpatient rehab floor, he is sitting comfortably in wheelchair no distress. He states that his speech is still slurred and his right arm and leg do still feel weak, however the weakness seemsto be improving day by day. 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 He lives in a double wide mobile home with his . Patient would like to get back to being independent while on therehab unit. Aside from the right-sided weakness and slurred speech, he feels well. He does not have any chest pain, shortness of breath, abdominal pain, paresthesias, dizziness, headaches. Interval History: Improving with therapy, no events overnight. Plan remains home tomorrow. Vitals stable today, BP well controlled. Check BMP to f/u potassium level. Review of Systems Review of Systems All other systems reviewed & are negative unless noted below or in HPI Exam Physical Exam Vital Signs: Temp Pulse Resp BP Pulse Ox O2 Del Method 97.9 F 72 20 134/72 97 Room Air 11/14/22 04:46 11/14/22 04:46 11/14/22 04:46 11/14/22 04:46 11/14/22 04:46 11/14/22 04:46 Narrative: General: Awake, A&O x 3, pleasant, cooperative, well nourished HENT: NC, AT Eyes: No scleral icterus. Subconjunctival hemorrhage noted to the right eye Neck: Supple Cardio: RRR, no murmurs, rubs or gallops Respiratory: CTAB, no wheezes rhonchi or rales. No evidence of respiratory distress GI: Soft, nontender, nondistended Neuro: CN II-XII intact. Decreased strength in the right upper extremity compared to the left upper extremity. Lower extremity strength is equal and symmetric. Sensation intact bilateral upper and lower extremities Psych: Affect, movements normal. Mood congruent. Speech is slurred Objective Labs 11/08/22 06:13 11/08/22 06:13 Medications and Allergies Allergies and Active Meds: Allergies No Known Allergies Allergy (Verified 10/30/22 19:24) Active Medications Generic Name Dose Route Start Last Admin Trade Name Freq PRN Reason Stop Dose Admin Acetaminophen 500 mg 11/02/22 15:00 11/09/22 20:29 Acetaminophen 500 Mg Tablet PO 11/02/23 14:59 500 mg Q4H PRN Administration Pain Al Hydrox/Mg Hydrox/Simethicone 30 ml 11/02/22 15:00 Mag Hydrox/Al Hydrox/Simeth 30 Ml Udc PO 11/02/23 14:59 Q4H PRN Indigestion Amlodipine Besylate 10 mg 11/03/22 09:00 11/14/22 09:10 Amlodipine 10 Mg Tablet PO 11/03/23 08:59 Not Given DAILY LEVON Aspirin 81 mg 11/03/22 09:00 11/14/22 09:10 Aspirin 81 Mg Tablet.Dr PO 11/03/23 08:59 81 mg DAILY LEVON Administration Atorvastatin Calcium 80 mg 11/02/22 21:00 11/13/22 20:52 Atorvastatin 80 Mg Tablet PO 11/02/23 20:59 80 mg QPM LEVON Administration Bisacodyl 10 mg 11/02/22 15:00 Bisacodyl 10 Mg Supp.Rect NE 11/02/23 14:59 DAILY PRN Constipation Clopidogrel Bisulfate 75 mg 11/03/22 09:00 11/14/22 09:10 Clopidogrel Bisulfate 75 Mg Tablet PO 11/03/23 08:59 75 mg DAILY LEVON Administration Docusate Sodium 100 mg 11/02/22 15:00 Docusate 100 Mg Capsule PO 11/02/23 14:59 BID PRN Constipation Docusate Sodium 283 mg 11/02/22 15:00 Docusate Enema 283 Mg/5 Ml Enema NE 11/02/23 14:59 DAILY PRN Constipation Enoxaparin Sodium 40 mg 11/04/22 10:00 11/14/22 09:11 Enoxaparin 40 Mg/0.4 Ml Syringe SUBCUT 11/04/23 09:59 40 mg DAILY@1000 LEVON Administration Hydralazine HCl 25 mg 11/08/22 21:00 11/14/22 09:10 Hydralazine 25 Mg Tablet PO 11/08/23 20:59 Not Given BID LEVON Hydrochlorothiazide 25 mg 11/03/22 09:00 11/14/22 09:10 Hydrochlorothiazide 25 Mg Tablet PO 11/03/23 08:59 25 mg DAILY LEVON Administration Lactulose 30 gm 11/02/22 15:00 Lactulose 20 Gm/30 Ml Udc PO 11/02/23 14:59 DAILY PRN Constipation Loperamide HCl 2 mg 11/13/22 09:07 Loperamide 2 Mg Capsule PO 11/13/23 09:06 Q2H PRN Diarrhea Pom (Humira 40 Mg) 40 mg 11/08/22 15:00 11/08/22 15:37 SUBCUT 11/08/23 14:59 40 mg Q14D LVEON Administration Potassium Chloride 40 meq 11/04/22 09:00 11/14/22 09:10 Potassium Chloride Er 10 Meq Tablet.Er PO 11/04/23 08:59 40 meq DAILY LEVON Administration Sennosides 2 tab 11/03/22 12:00 Sennosides 8.6 Mg Tablet PO 11/03/23 11:59 DAILY@12 PRN If no BM in 2 days Sodium Chloride 0 ml 11/02/22 15:00 Sodium Chloride 0.9 % 10 Ml Syringe IV-PUSH 11/02/23 14:59 PRN PRN Flush Trazodone HCl 50 mg 11/11/22 09:40 11/13/22 20:52 Trazodone 50 Mg Tablet PO 11/11/23 09:39 50 mg QHS PRN Administration Insomnia Valsartan 320 mg 11/03/22 09:00 11/14/22 09:10 Valsartan 320 Mg Tablet PO 11/03/23 08:59 Not Given DAILY LEVON Assessment/Plan Assessment/Plan (1) Cerebrovascular accident (CVA) of left thalamus: Plan: CTA of the brain in the ER showed 1 cm segment of critical stenosis involving the left MCA M1 segment which is causing compromise flow along with occlusion ofthe distal M2 segment of the left frontal lobe and MRI of the cris confirmed evidence of late subacute infarct involving the left thalamus Continue with dual antiplatelet therapy with aspirin 81 mg and clopidogrel 75 mg Continue to work with therapy as directed to help improve his functional status Code(s): I63.81 - Other cerebral infarction due to occlusion or stenosis of small artery Status: Acute (2) Right hemiplegia: Code(s): G81.91 - Hemiplegia, unspecified affecting right dominant side Status: Acute (3) Oropharyngeal dysphagia: Plan: Speech therapy saw the patient during his inpatient hospital stay who recommended a diet dental soft solids, chopped meats and thin liquids; pills to be given whole in applesauce and 1:1 feeding supervision Continue to work with therapy while in the rehab unit Continue to monitor this closely Code(s): R13.12 - Dysphagia, oropharyngeal phase Status: Acute (4) Hypertensive urgency: Plan: Patient presented with hypertensive urgency with systolic blood pressures in [id number] Continue with his current antihypertensive regimen and closely monitor his bloodpressures Allow somewhat permissive hypertension given his recent acute CVA, however this should continue to be lowered during his rehab stay Code(s): I16.0 - Hypertensive urgency Status: Acute (5) Nonadherence to medication: Code(s): Z91.148 - Patient's other noncompliance with medication regimen for other reason Status: Acute (6) Intracranial atherosclerosis: Code(s): I67.2 - Cerebral atherosclerosis Status: Acute (7) Hyperlipidemia: Plan: Atorvastatin 80 mg was started in the hospital Should continue with this high dose statin Code(s): E78.5 - Hyperlipidemia, unspecified Status: Acute (8) Tobacco abuse disorder: Code(s): Z72.0 - Tobacco use Status: Acute Plan Mr. Doherty is a 67-year-old male with history of hypertensive urgency and intracranial atherosclerosis, recent medication nonadherence over the past year or so who presented with right hemiplegia, ataxia, dysarthria and oropharyngeal dysphagia postacute left thalamic stroke. -Continues to improve -Plan is home tomorrow. -Meds reconciled, sent to our pharmacy -Reviewed at team meeting, standby assist with mobility/self-care/speech. -Check BMP today Hospitalist to assist with management of comorbid medical conditions Pain control: No issues at present Bowel and bladder: Bowel regimen. No urinary retention post stroke. Skin: No pressure ulcers on admission Sleep: Optimize. Continue trazodone. DVT prophylaxis: Continue Functional status: Impaired. PT/OT/SWITCHBOARD INSTALLER as ordered Discharge planning: Home 11/14/22 I spent greater than 35 minutes for services, including [id number] encounter with the patient, discussion of the case, plan of care, and exam; and [id number] activities, such as reviewing pertinent quality compliance consultant documentation, recent therapy notes, laboratory and radiology studies, and discussion of case with care team including physician, nursing, case folder, and therapists. More than 50 % of time was spent on patient/family counseling or coordination ofcare. Documented By: Jose Martin Sen MD 11/14/22 1035 Signed By: <Electronically signed by Jose Martin Sen MD> 11/14/22 1036 [facility] Work Phone: 1(450) 302-371209-18-2023 Progress note Author Jose Martin Sen [facility] November 13, 2022 12:08pm Note Date/Time November 11, 2022 11:02am [facility] [address] [place] [address] Physiatry(Rehab) Progress Note Signed Patient: Viraj Doherty MR#: [id number] : 1955 Acct:[id number] Age/Sex: 67 / M Adm Date: 3 Loc: Room: 2D5104-1 Type: ADM IN Attending Dr: Jose Martin Sen MD Copies to: ~ <Janice Altamirano APRN - Last Filed: 11/11/22 11:02> Date of Service: 11/11/2022 Subjective <Janice Altamirano APRN - Last Filed: 11/11/22 11:02> Subjective Narrative: Mr. Doherty is a 67 year old male with a history of hypertension, previous CVA, psoriasis who initially presented to our emergency department on 10/30/22 for difficulty finding words and slurred speech as well as right-sided weakness which started the night prior to arrival. CT in the emergency department showed no acute intracranial abnormality with old bilateral lacunar infarcts, however CTA of the brain showed 1 cm segment of critical stenosis involving the left MCA M1 segment which is causing compromise flow along with occlusion of the distal M2 segment of the left frontal lobe. Case was discussed between ER physician and [facility] who requested the patient stay in the hospital for further CVA work- up. While in the hospital, MRI was performed and showed evidence of late subacute infarct involving the left thalamus. His blood pressure was also found to be elevated during this stay with systolics in the 220s initially. Patient had reportedly stopped taking his antihypertensive medications at home. Patient was seen by neurology while in the hospital who recommended continued dual antiplatelet therapy with aspirin 81 mg and clopidogrel 75 mg as well as continuing 80 mg of Lipitor and consistent blood pressure control. Patient was seen in consult by Dr. Sen while in the hospital who agreed with admission to the inpatient rehab unit. Upon my evaluation of the patient on the inpatient rehab floor, he is sitting comfortably in wheelchair no distress. He states that his speech is still slurred and his right arm and leg do still feel weak, however the weakness seemsto be improving day by day. 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 He lives in a double wide mobile home with his . Patient would like to get back to being independent while on therehab unit. Aside from the right-sided weakness and slurred speech, he feels well. He does not have any chest pain, shortness of breath, abdominal pain, paresthesias, dizziness, headaches. Interval History: Seen and examined in his room. Reports a poor night sleep, was tossing and turning and just could not get comfortable. No pain or discomfort. Requesting a sleep aid for tonight. Asking to go home soon. He did have an FI with family yesterday which went verywell. The plan is to discharge home on 11/15/2022. He continues to work with therapy. Ambulating for 400 feet with a walker and contact-guard dante, CGA for transfers and bed mobility. Review of Systems <Janice Altamirano APRN - Last Filed: 11/11/22 11:02> Review of Systems All other systems reviewed & are negative unless noted below or in HPI Exam <Janice Altamirano APRN - Last Filed: 11/11/22 11:02> Physical Exam Vital Signs: Temp Pulse Resp BP Pulse Ox O2 Del Method 97.7 F 68 16 135/76 97 Room Air 11/11/22 05:00 11/11/22 05:00 11/11/22 05:00 11/11/22 05:00 11/11/22 05:00 11/11/22 05:00 Narrative: General: Awake, alert, oriented x3 HENT: Normal to inspection, normocephalic, atraumatic Eyes: PERRL, normal conjunctiva and sclera Neck: Normal ROM, normal visual inspection. Trachea midline. Cardio: Regular heart rate then rhythm Respiratory: Clear to auscultation bilaterally. Normal respiratory effort. No respiratory distress. GI: Abdomen soft, nontender, nondistended, active bowel sounds x4 quadrants Neuro: CN II-XII intact. Mild right-sided weakness in upper and lower extremity. Ataxic. No facial droop. Mild to moderate aphasia and dysarthria. Extremities: No edema, erythema, cyanosis Psych: Mood and affect appropriate. Dysarthric speech. Objective <Janice Altamirano, ENGINEER GEOPHYSICAL [employer]ORATORY - Last Filed: 11/11/22 11:02> Labs 11/08/22 06:13 11/08/22 06:13 Medications and Allergies Allergies and Active Meds: Allergies No Known Allergies Allergy (Verified 10/30/22 19:24) Active Medications Generic Name Dose Route Start Last Admin Trade Name Freq PRN Reason Stop Dose Admin Acetaminophen 500 mg 11/02/22 15:00 11/09/22 20:29 Acetaminophen 500 Mg Tablet PO 11/02/23 14:59 500 mg Q4H PRN Administration Pain Al Hydrox/Mg Hydrox/Simethicone 30 ml 11/02/22 15:00 Mag Hydrox/Al Hydrox/Simeth 30 Ml Udc PO 11/02/23 14:59 Q4H PRN Indigestion Amlodipine Besylate 10 mg 11/03/22 09:00 11/11/22 09:27 Amlodipine 10 Mg Tablet PO 11/03/23 08:59 10 mg DAILY LEVON Administration Aspirin 81 mg 11/03/22 09:00 11/11/22 09:27 Aspirin 81 Mg Tablet. PO 11/03/23 08:59 81 mg DAILY LEVON Administration Atorvastatin Calcium 80 mg 11/02/22 21:00 11/10/22 21:20 Atorvastatin 80 Mg Tablet PO 11/02/23 20:59 80 mg QPM LEVON Administration Bisacodyl 10 mg 11/02/22 15:00 Bisacodyl 10 Mg Supp.Rect NE 11/02/23 14:59 DAILY PRN Constipation Clopidogrel Bisulfate 75 mg 11/03/22 09:00 11/11/22 09:27 Clopidogrel Bisulfate 75 Mg Tablet PO 11/03/23 08:59 75 mg DAILY LEVON Administration Docusate Sodium 100 mg 11/02/22 15:00 Docusate 100 Mg Capsule PO 11/02/23 14:59 BID PRN Constipation Docusate Sodium 283 mg 11/02/22 15:00 Docusate Enema 283 Mg/5 Ml Enema NE 11/02/23 14:59 DAILY PRN Constipation Enoxaparin Sodium 40 mg 11/04/22 10:00 11/11/22 09:28 Enoxaparin 40 Mg/0.4 Ml Syringe SUBCUT 11/04/23 09:59 40 mg DAILY@1000 ELVON Administration Hydralazine HCl 25 mg 11/08/22 21:00 11/11/22 09:27 Hydralazine 25 Mg Tablet PO 11/08/23 20:59 25 mg BID LEVON Administration Hydrochlorothiazide 25 mg 11/03/22 09:00 11/11/22 09:27 Hydrochlorothiazide 25 Mg Tablet PO 11/03/23 08:59 25 mg DAILY LEVON Administration Lactulose 30 gm 11/02/22 15:00 Lactulose 20 Gm/30 Ml Udc PO 11/02/23 14:59 DAILY PRN Constipation Pom (Humira 40 Mg) 40 mg 11/08/22 15:00 11/08/22 15:37 SUBCUT 11/08/23 14:59 40 mg Q14D LEVON Administration Potassium Chloride 40 meq 11/04/22 09:00 11/11/22 09:27 Potassium Chloride Er 10 Meq Tablet.Er PO 11/04/23 08:59 40 meq DAILY LEVON Administration Sennosides 2 tab 11/03/22 12:00 Sennosides 8.6 Mg Tablet PO 11/03/23 11:59 DAILY@12 PRN If no BM in 2 days Sodium Chloride 0 ml 11/02/22 15:00 Sodium Chloride 0.9 % 10 Ml Syringe IV-PUSH 11/02/23 14:59 PRN PRN Flush Trazodone HCl 50 mg 11/11/22 09:40 Trazodone 50 Mg Tablet PO 11/11/23 09:39 QHS PRN Insomnia Valsartan 320 mg 11/03/22 09:00 11/11/22 09:27 Valsartan 320 Mg Tablet PO 11/03/23 08:59 320 mg DAILY LEVON Administration Assessment/Plan <Janice Altamirano, ENGINEER [employer]ORATORY - Last Filed: 11/11/22 11:02> Assessment/Plan (1) Cerebrovascular accident (CVA) of left thalamus: Plan: CTA of the brain in the ER showed 1 cm segment of critical stenosis involving the left MCA M1 segment which is causing compromise flow along with occlusion ofthe distal M2 segment of the left frontal lobe and MRI of the cris confirmed evidence of late subacute infarct involving the left thalamus Continue with dual antiplatelet therapy with aspirin 81 mg and clopidogrel 75 mg Continue to work with therapy as directed to help improve his functional status Code(s): I63.81 - Other cerebral infarction due to occlusion or stenosis of small artery Status: Acute (2) Right hemiplegia: Code(s): G81.91 - Hemiplegia, unspecified affecting right dominant side Status: Acute (3) Oropharyngeal dysphagia: Plan: Speech therapy saw the patient during his inpatient hospital stay who recommended a diet dental soft solids, chopped meats and thin liquids; pills to be given whole in applesauce and 1:1 feeding supervision Continue to work with therapy while in the rehab unit Continue to monitor this closely Code(s): R13.12 - Dysphagia, oropharyngeal phase Status: Acute (4) Hypertensive urgency: Plan: Patient presented with hypertensive urgency with systolic blood pressures in [id number] Continue with his current antihypertensive regimen and closely monitor his bloodpressures Allow somewhat permissive hypertension given his recent acute CVA, however this should continue to be lowered during his rehab stay Code(s): I16.0 - Hypertensive urgency Status: Acute (5) Nonadherence to medication: Code(s): Z91.148 - Patient's other noncompliance with medication regimen for other reason Status: Acute (6) Intracranial atherosclerosis: Code(s): I67.2 - Cerebral atherosclerosis Status: Acute (7) Hyperlipidemia: Plan: Atorvastatin 80 mg was started in the hospital Should continue with this high dose statin Code(s): E78.5 - Hyperlipidemia, unspecified Status: Acute (8) Tobacco abuse disorder: Code(s): Z72.0 - Tobacco use Status: Acute Plan Mr. Doherty is a 67-year-old male with history of hypertensive urgency and intracranial atherosclerosis, recent medication nonadherence over the past year or so who presented with right hemiplegia, ataxia, dysarthria and oropharyngeal dysphagia postacute left thalamic stroke. -Add prn trazodone at bedtime for complaints of insomnia. -Clinically stable and continues to improve in therapy. Neurological deficits are gradually resolving. Planning to discharge home next week. Hospitalist to assist with management of comorbid medical conditions Pain control: No issues at present Bowel and bladder: Bowel regimen. No urinary retention post stroke. Skin: No pressure ulcers on admission Sleep: Optimize. Continue trazodone. DVT prophylaxis: Continue Functional status: Impaired. PT/OT/SWITCHBOARD INSTALLER as ordered Discharge planning: Home next week, tentatively 11/14/22 I spent greater than 15 minutes for services, including [id number] encounter with the patient, discussion of the case, plan of care, and exam; and [id number] activities, such as reviewing pertinent quality compliance consultant documentation, recent therapy notes, laboratory and radiology studies, and discussion of case with care team including physician, nursing, case folder, and therapists. More than 50 % of time was spent on patient/family counseling or coordination ofcare. <Jose Martin Sen MD - Last Filed: 11/13/22 12:08> Assessment/Plan (1) Cerebrovascular accident (CVA) of left thalamus: Plan: CTA of the brain in the ER showed 1 cm segment of critical stenosis involving the left MCA M1 segment which is causing compromise flow along with occlusion ofthe distal M2 segment of the left frontal lobe and MRI of the cris confirmed evidence of late subacute infarct involving the left thalamus Continue with dual antiplatelet therapy with aspirin 81 mg and clopidogrel 75 mg Continue to work with therapy as directed to help improve his functional status (2) Right hemiplegia: (3) Oropharyngeal dysphagia: Plan: Speech therapy saw the patient during his inpatient hospital stay who recommended a diet dental soft solids, chopped meats and thin liquids; pills to be given whole in applesauce and 1:1 feeding supervision Continue to work with therapy while in the rehab unit Continue to monitor this closely (4) Hypertensive urgency: Plan: Patient presented with hypertensive urgency with systolic blood pressures in [id number] Continue with his current antihypertensive regimen and closely monitor his bloodpressures Allow somewhat permissive hypertension given his recent acute CVA, however this should continue to be lowered during his rehab stay (5) Nonadherence to medication: (6) Intracranial atherosclerosis: (7) Hyperlipidemia: Plan: Atorvastatin 80 mg was started in the hospital Should continue with this high dose statin (8) Tobacco abuse disorder: Plan: I reviewed the history and the relevant portions of the chart, including currentorders, allied health and quality compliance consultant notes, labs/imaging and plan of care as above. Documented By: Janice Altamirano APRN 11/11/22 1 059 Signed By: <Electronically signed by JASMIN Altamirano> 11/11/22 1102 <Electronically signed by Jose Martin Sen MD> 11/13/22 1209 [facility] Work Phone: 1(762) 662-205309-18-2023 Progress note Author Jose Martin Sen [facility] November 13, 2022 12:07pm Note Date/Time November 09, 2022 12:58pm [facility] [address] [place] [address] Physiatry(Rehab) Progress Note Signed Patient: Viraj Doherty MR#: [id number] : 1955 Acct:[id number] Age/Sex: 67 / M Adm Date: 3 Loc: Room: [address] [place] [address] Type: ADM IN Attending Dr: Jose Martin Sen MD Copies to: ~ <Janice Altamirano APRN - Last Filed: 11/09/22 13:00> Date of Service: 11/09/2022 Subjective <Janice Altamirano APRN - Last Filed: 11/09/22 13:00> Subjective Narrative: Mr. Doherty is a 67 year old male with a history of hypertension, previous CVA, psoriasis who initially presented to our emergency department on 10/30/22 for difficulty finding words and slurred speech as well as right-sided weakness which started the night prior to arrival. CT in the emergency department showed no acute intracranial abnormality with old bilateral lacunar infarcts, however CTA of the brain showed 1 cm segment of critical stenosis involving the left MCA M1 segment which is causing compromise flow along with occlusion of the distal M2 segment of the left frontal lobe. Case was discussed between ER physician and [facility] who requested the patient stay in the hospital for further CVA work- up. While in the hospital, MRI was performed and showed evidence of late subacute infarct involving the left thalamus. His blood pressure was also found to be elevated during this stay with systolics in the 220s initially. Patient had reportedly stopped taking his antihypertensive medications at home. Patient was seen by neurology while in the hospital who recommended continued dual antiplatelet therapy with aspirin 81 mg and clopidogrel 75 mg as well as continuing 80 mg of Lipitor and consistent blood pressure control. Patient was seen in consult by Dr. Sen while in the hospital who agreed with admission to the inpatient rehab unit. Upon my evaluation of the patient on the inpatient rehab floor, he is sitting comfortably in wheelchair no distress. He states that his speech is still slurred and his right arm and leg do still feel weak, however the weakness seemsto be improving day by day. 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 He lives in a double wide mobile home with his . Patient would like to get back to being independent while on therehab unit. Aside from the right-sided weakness and slurred speech, he feels well. He does not have any chest pain, shortness of breath, abdominal pain, paresthesias, dizziness, headaches. Interval History: Patient seen and examined at the bedside. He is alert, oriented x3, pleasant and cooperative with assessment. Further reports of altered LOC/confusion. Offers no major complaints or concerns today. Admits to being tired after therapy. Denies pain or discomfort. He is sleeping well. Appetite is appropriate. Recent labs and vitals noted. Continues to progress in therapy. Ambulatory 235 feet with contact-guard assistusing a wheeled walker. CGA for transfers. Chronic conditions stable. Review of Systems <Janice Altamirano APRN - Last Filed: 11/09/22 13:00> Review of Systems All other systems reviewed & are negative unless noted below or in HPI Exam <Janice Altamirano APRN - Last Filed: 11/09/22 13:00> Physical Exam Vital Signs: Temp Pulse Resp BP Pulse Ox O2 Del Method 97.6 F 75 20 150/73 H 96 Room Air 11/09/22 05:00 11/09/22 05:00 11/09/22 05:00 11/09/22 05:00 11/09/22 05:00 11/09/22 08:00 Narrative: General: Awake, alert, oriented x3 HENT: Normal to inspection, normocephalic, atraumatic Eyes: PERRL, normal conjunctiva and sclera Neck: Normal ROM, normal visual inspection. Trachea midline. Cardio: Regular heart rate then rhythm Respiratory: Clear to auscultation bilaterally. Normal respiratory effort. No respiratory distress. GI: Abdomen soft, nontender, nondistended, active bowel sounds x4 quadrants Neuro: CN II-XII intact. Mild right-sided weakness in upper and lower extremity. Ataxic. No facial droop. Mild to moderate aphasia and dysarthria. Extremities: No edema, erythema, cyanosis Psych: Mood and affect appropriate. Dysarthric speech. Objective <Janice Altamirano APRN - Last Filed: 11/09/22 13:00> Labs 11/08/22 06:13 11/08/22 06:13 Additional Results Results Comments: I reviewed clinical lab tests, radiology reports and obtained and summated medical records and have ordered follow up lab tests and imaging studies as needed for rehabilitation care. Medications and Allergies Allergies and Active Meds: Allergies No Known Allergies Allergy (Verified 10/30/22 19:24) Active Medications Generic Name Dose Route Start Last Admin Trade Name Freq PRN Reason Stop Dose Admin Acetaminophen 500 mg 11/02/22 15:00 11/08/22 21:48 Acetaminophen 500 Mg Tablet PO 11/02/23 14:59 500 mg Q4H PRN Administration Pain Al Hydrox/Mg Hydrox/Simethicone 30 ml 11/02/22 15:00 Mag Hydrox/Al Hydrox/Simeth 30 Ml Udc PO 11/02/23 14:59 Q4H PRN Indigestion Amlodipine Besylate 10 mg 11/03/22 09:00 11/09/22 09:10 Amlodipine 10 Mg Tablet PO 11/03/23 08:59 10 mg DAILY LEVON Administration Aspirin 81 mg 11/03/22 09:00 11/09/22 09:10 Aspirin 81 Mg Tablet. PO 11/03/23 08:59 81 mg DAILY LEVON Administration Atorvastatin Calcium 80 mg 11/02/22 21:00 11/08/22 21:48 Atorvastatin 80 Mg Tablet PO 11/02/23 20:59 80 mg QPM LEVON Administration Bisacodyl 10 mg 11/02/22 15:00 Bisacodyl 10 Mg Supp.Rect NE 11/02/23 14:59 DAILY PRN Constipation Clopidogrel Bisulfate 75 mg 11/03/22 09:00 11/09/22 09:10 Clopidogrel Bisulfate 75 Mg Tablet PO 11/03/23 08:59 75 mg DAILY LEVON Administration Docusate Sodium 100 mg 11/02/22 15:00 Docusate 100 Mg Capsule PO 11/02/23 14:59 BID PRN Constipation Docusate Sodium 283 mg 11/02/22 15:00 Docusate Enema 283 Mg/5 Ml Enema NE 11/02/23 14:59 DAILY PRN Constipation Enoxaparin Sodium 40 mg 11/04/22 10:00 11/09/22 09:10 Enoxaparin 40 Mg/0.4 Ml Syringe SUBCUT 11/04/23 09:59 40 mg DAILY@1000 LEVON Administration Hydralazine HCl 25 mg 11/08/22 21:00 11/09/22 09:10 Hydralazine 25 Mg Tablet PO 11/08/23 20:59 25 mg BID LEVON Administration Hydrochlorothiazide 25 mg 11/03/22 09:00 11/09/22 09:10 Hydrochlorothiazide 25 Mg Tablet PO 11/03/23 08:59 25 mg DAILY LEVON Administration Lactulose 30 gm 11/02/22 15:00 Lactulose 20 Gm/30 Ml Udc PO 11/02/23 14:59 DAILY PRN Constipation Pom (Humira 40 Mg) 40 mg 11/08/22 15:00 11/08/22 15:37 SUBCUT 11/08/23 14:59 40 mg Q14D LEVON Administration Potassium Chloride 40 meq 11/04/22 09:00 11/09/22 09:10 Potassium Chloride Er 10 Meq Tablet.Er PO 11/04/23 08:59 40 meq DAILY LEVON Administration Sennosides 2 tab 11/03/22 12:00 Sennosides 8.6 Mg Tablet PO 11/03/23 11:59 DAILY@12 PRN If no BM in 2 days Sodium Chloride 0 ml 11/02/22 15:00 Sodium Chloride 0.9 % 10 Ml Syringe IV-PUSH 11/02/23 14:59 PRN PRN Flush Valsartan 320 mg 11/03/22 09:00 11/09/22 09:10 Valsartan 320 Mg Tablet PO 11/03/23 08:59 320 mg DAILY LEVON Administration Assessment/Plan <Janice Altamirano, ENGINEER GEOPH[employer]ORATORY - Last Filed: 11/09/22 13:00> Assessment/Plan (1) Cerebrovascular accident (CVA) of left thalamus: Plan: CTA of the brain in the ER showed 1 cm segment of critical stenosis involving the left MCA M1 segment which is causing compromise flow along with occlusion ofthe distal M2 segment of the left frontal lobe and MRI of the cris confirmed evidence of late subacute infarct involving the left thalamus Continue with dual antiplatelet therapy with aspirin 81 mg and clopidogrel 75 mg Continue to work with therapy as directed to help improve his functional status Code(s): I63.81 - Other cerebral infarction due to occlusion or stenosis of small artery Status: Acute (2) Right hemiplegia: Code(s): G81.91 - Hemiplegia, unspecified affecting right dominant side Status: Acute (3) Oropharyngeal dysphagia: Plan: Speech therapy saw the patient during his inpatient hospital stay who recommended a diet dental soft solids, chopped meats and thin liquids; pills to be given whole in applesauce and 1:1 feeding supervision Continue to work with therapy while in the rehab unit Continue to monitor this closely Code(s): R13.12 - Dysphagia, oropharyngeal phase Status: Acute (4) Hypertensive urgency: Plan: Patient presented with hypertensive urgency with systolic blood pressures in [id number] Continue with his current antihypertensive regimen and closely monitor his bloodpressures Allow somewhat permissive hypertension given his recent acute CVA, however this should continue to be lowered during his rehab stay Code(s): I16.0 - Hypertensive urgency Status: Acute (5) Nonadherence to medication: Code(s): Z91.148 - Patient's other noncompliance with medication regimen for other reason Status: Acute (6) Intracranial atherosclerosis: Code(s): I67.2 - Cerebral atherosclerosis Status: Acute (7) Hyperlipidemia: Plan: Atorvastatin 80 mg was started in the hospital Should continue with this high dose statin Code(s): E78.5 - Hyperlipidemia, unspecified Status: Acute (8) Tobacco abuse disorder: Code(s): Z72.0 - Tobacco use Status: Acute Plan Mr. Doherty is a 67-year-old male with history of hypertensive urgency and intracranial atherosclerosis, recent medication nonadherence over the past year or so who presented with right hemiplegia, ataxia, dysarthria and oropharyngeal dysphagia postacute left thalamic stroke. -Feeling tired but offers no major complaints. Right-sided deficits somewhat improved. No headache, dizziness, lightheadedness. -Vital signs remain within normal limits. BP reasonably controlled. -Progressing towards goals in therapy. Hospitalist to assist with management of comorbid medical conditions Pain control: No issues at present Bowel and bladder: Bowel regimen. No urinary retention post stroke. Skin: No pressure ulcers on admission Sleep: Optimize. Continue trazodone. DVT prophylaxis: Continue Functional status: Impaired. PT/OT/SWITCHBOARD INSTALLER as ordered Discharge planning: Home next week, tentatively 11/14/22 I spent greater than 15 minutes for services, including [id number] encounter with the patient, discussion of the case, plan of care, and exam; and [id number] activities, such as reviewing pertinent quality compliance consultant documentation, recent therapy notes, laboratory and radiology studies, and discussion of case with care team including physician, nursing, case folder, and therapists. More than 50 % of time was spent on patient/family counseling or coordination ofcare. <Jose Martin Sen MD - Last Filed: 11/13/22 12:07> Assessment/Plan (1) Cerebrovascular accident (CVA) of left thalamus: Plan: CTA of the brain in the ER showed 1 cm segment of critical stenosis involving the left MCA M1 segment which is causing compromise flow along with occlusion ofthe distal M2 segment of the left frontal lobe and MRI of the cris confirmed evidence of late subacute infarct involving the left thalamus Continue with dual antiplatelet therapy with aspirin 81 mg and clopidogrel 75 mg Continue to work with therapy as directed to help improve his functional status (2) Right hemiplegia: (3) Oropharyngeal dysphagia: Plan: Speech therapy saw the patient during his inpatient hospital stay who recommended a diet dental soft solids, chopped meats and thin liquids; pills to be given whole in applesauce and 1:1 feeding supervision Continue to work with therapy while in the rehab unit Continue to monitor this closely (4) Hypertensive urgency: Plan: Patient presented with hypertensive urgency with systolic blood pressures in [id number] Continue with his current antihypertensive regimen and closely monitor his bloodpressures Allow somewhat permissive hypertension given his recent acute CVA, however this should continue to be lowered during his rehab stay (5) Nonadherence to medication: (6) Intracranial atherosclerosis: (7) Hyperlipidemia: Plan: Atorvastatin 80 mg was started in the hospital Should continue with this high dose statin (8) Tobacco abuse disorder: Plan: I completed a substantive portion of this encounter, the medical decision makingportion of this note in its entirety, including Allied health note review, nursing note review, quality compliance consultant note review, discussion with nursing and case management, and more than 50% of my time was spent on counseling and coordination of care, time spent 25 minutes Patient was personally seen by me, Dr. Sen, on the day of encounter, reviewed the history and the relevant portions of the chart, including current orders, allied health and quality compliance consultant notes, labs/imaging and performed garner elements of exam and I formulated the plan of care and facilitated the medical decision making. Documented By: Janice Altamirano APRN 11/09/22 1 251 Signed By: <Electronically signed by JASMIN Altamirano> 11/09/22 1300 <Electronically signed by Jose Martin Sen MD> 11/13/22 1205 [facility] Work Phone: 1(663) 960-188009-13-2023 Progress note Author Jose Martin Sen [facility] November 08, 2022 11:51am Note Date/Time November 08, 2022 11:51am [facility] [address] [place] [address] Physiatry(Rehab) Progress Note Signed Patient: Viraj Doherty MR#: [id number] : 1955 Acct:[id number] Age/Sex: 67 / M Adm Date: 3 Loc: Room: 3F9537-9 Type: ADM IN Attending Dr: Jose Martin Sen MD Copies to: ~ Date of Service: 11/08/2022 Subjective Subjective Narrative: Mr. Doherty is a 67 year old male with a history of hypertension, previous CVA, psoriasis who initially presented to our emergency department on 10/30/22 for difficulty finding words and slurred speech as well as right-sided weakness which started the night prior to arrival. CT in the emergency department showedno acute intracranial abnormality with old bilateral lacunar infarcts, however CTA of the brain showed 1 cm segment of critical stenosis involving the left MCAM1 segment which is causing compromise flow along with occlusion of the distal M2 segment of the left frontal lobe. Case was discussed between ER physician and [facility] who requested the patient stay in the hospital for further CVA work- up. While in the hospital, MRI was performed and showed evidence of late subacute infarct involving the left thalamus. His bloodpressure was also found to be elevated during this stay with systolics in the 220s initially. Patient had reportedly stopped taking his antihypertensive medications at home. Patient was seen by neurology while in the hospital who recommended continued dual antiplatelet therapy with aspirin 81 mg and clopidogrel 75 mg as well as continuing 80 mg of Lipitor and consistent blood pressure control. Patient was seen in consult by Dr. Sen while in the hospital who agreed with admission to the inpatient rehab unit. Upon my evaluation of the patient on the inpatient rehab floor, he is sitting comfortably in wheelchair no distress. He states that his speech is still slurred and his right arm and leg do still feel weak, however the weakness seemsto be improving day by day. 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 He lives in a double wide mobile home with his . Patient would like to get back to being independent while on therehab unit. Aside from the right-sided weakness and slurred speech, he feels well. He does not have any chest pain, shortness of breath, abdominal pain, paresthesias, dizziness, headaches. Interval History: Episode of altered mental status/lethargy yesterday, this appears to have resolved. Sleep medications discontinued, will continue to monitor sleep/wake cycle CT head negative, labs unremarkable, including UA Afebrile Working with therapy today. Chronic conditions stable. Review of Systems Review of Systems All other systems reviewed & are negative unless noted below or in HPI Exam Physical Exam Vital Signs: Temp Pulse Resp BP Pulse Ox O2 Del Method 98.1 F 77 18 142/57 H 95 Room Air 11/07/22 16:57 11/07/22 20:24 11/07/22 20:24 11/07/22 20:24 11/07/22 20:24 11/08/22 10:52 Narrative: General: Awake, A&O x 3, pleasant, cooperative, well nourished HENT: NC, AT Eyes: No scleral icterus. Subconjunctival hemorrhage noted to the right eye Neck: Supple Cardio: RRR, no murmurs, rubs or gallops Respiratory: CTAB, no wheezes rhonchi or rales. No evidence of respiratory distress GI: Soft, nontender, nondistended Neuro: CN II-XII intact. Decreased strength in the right upper extremity compared to the left upper extremity. Lower extremity strength is equal and symmetric. Sensation intact bilateral upper and lower extremities Psych: Affect, movements normal. Mood congruent. Speech is slurred Objective Labs 11/08/22 06:13 11/08/22 06:13 Labs: Laboratory Results - last 24 hr 11/07/22 11/07/22 11/07/22 15:00 15:00 16:30 Corrected WBC 7.6 Uncorrected WBC Count 7.6 RBC 5.19 Hgb 15.9 Hct 45.3 MCV 87.4 MCH 30.6 MCHC 35.1 RDW 14.2 Plt Count 215 MPV 8.5 Neut % (Auto) 63.8 Lymph % (Auto) 21.8 [place] % (Auto) 12.9 Eos % (Auto) 0.4 Baso % (Auto) 1.1 Nucleat RBC Rel Count 0.1 Neut # (Auto) 4.9 Lymph # (Auto) 1.7 [place] # (Auto) 1.0 H Eos # (Auto) 0.0 Baso # (Auto) 0.1 PHA Creatinine Clear 63.70 Sodium 136 Potassium 3.5 Chloride 100 Carbon Dioxide 28.8 Anion Gap 10.7 BUN 28 H Creatinine 1.13 Est GFR (CKD-EPI) > 60.0 Glucose 105 H Calcium 9.4 Urine Color Yellow Urine Appearance Clear Urine pH 5.5 Ur Specific [place] 1.014 Urine Protein Negative Urine Glucose (UA) Normal Urine Ketones Negative Urine Occult Blood Negative Urine Nitrite Negative Urine Bilirubin Negative Urine Urobilinogen Normal Ur Leukocyte Esterase Negative 11/08/22 11/08/22 06:13 06:13 Corrected WBC 9.4 Uncorrected WBC Count 9.4 RBC 5.05 Hgb 15.4 Hct 43.8 MCV 86.7 MCH 30.5 MCHC 35.2 RDW 13.7 Plt Count 224 MPV 9.0 Neut % (Auto) 56.5 Lymph % (Auto) 28.3 [place] % (Auto) 13.4 Eos % (Auto) 0.9 Baso % (Auto) 0.9 Nucleat RBC Rel Count 0.1 Neut # (Auto) 5.3 Lymph # (Auto) 2.7 [place] # (Auto) 1.3 H Eos # (Auto) 0.1 Baso # (Auto) 0.1 PHA Creatinine Clear 66.04 Sodium 137 Potassium 3.5 Chloride 103 Carbon Dioxide 26.8 Anion Gap 10.7 BUN 27 H Creatinine 1.09 Est GFR (CKD-EPI) > 60.0 Glucose 104 H Calcium 9.3 Urine Color Urine Appearance Urine pH Ur Specific [place] Urine Protein Urine Glucose (UA) Urine Ketones Urine Occult Blood Urine Nitrite Urine Bilirubin Urine Urobilinogen Ur Leukocyte Esterase Medications and Allergies Allergies and Active Meds: Allergies No Known Allergies Allergy (Verified 10/30/22 19:24) Active Medications Generic Name Dose Route Start Last Admin Trade Name Freq PRN Reason Stop Dose Admin Acetaminophen 500 mg 11/02/22 15:00 11/02/22 21:25 Acetaminophen 500 Mg Tablet PO 11/02/23 14:59 500 mg Q4H PRN Administration Pain Al Hydrox/Mg Hydrox/Simethicone 30 ml 11/02/22 15:00 Mag Hydrox/Al Hydrox/Simeth 30 Ml Udc PO 11/02/23 14:59 Q4H PRN Indigestion Amlodipine Besylate 10 mg 11/03/22 09:00 11/08/22 09:50 Amlodipine 10 Mg Tablet PO 11/03/23 08:59 10 mg DAILY LEVON Administration Aspirin 81 mg 11/03/22 09:00 11/08/22 09:50 Aspirin 81 Mg Tablet.Dr PO 11/03/23 08:59 81 mg DAILY LEVON Administration Atorvastatin Calcium 80 mg 11/02/22 21:00 11/07/22 20:23 Atorvastatin 80 Mg Tablet PO 11/02/23 20:59 80 mg QPM LEVON Administration Bisacodyl 10 mg 11/02/22 15:00 Bisacodyl 10 Mg Supp.Rect NE 11/02/23 14:59 DAILY PRN Constipation Clopidogrel Bisulfate 75 mg 11/03/22 09:00 11/08/22 09:50 Clopidogrel Bisulfate 75 Mg Tablet PO 11/03/23 08:59 75 mg DAILY LEVON Administration Docusate Sodium 100 mg 11/02/22 15:00 Docusate 100 Mg Capsule PO 11/02/23 14:59 BID PRN Constipation Docusate Sodium 283 mg 11/02/22 15:00 Docusate Enema 283 Mg/5 Ml Enema NE 11/02/23 14:59 DAILY PRN Constipation Enoxaparin Sodium 40 mg 11/04/22 10:00 11/08/22 09:51 Enoxaparin 40 Mg/0.4 Ml Syringe SUBCUT 11/04/23 09:59 40 mg DAILY@1000 LEVON Administration Hydralazine HCl 25 mg 11/03/22 14:00 11/08/22 09:50 Hydralazine 25 Mg Tablet PO 11/03/23 13:59 25 mg TID LEVON Administration Hydrochlorothiazide 25 mg 11/03/22 09:00 11/08/22 09:50 Hydrochlorothiazide 25 Mg Tablet PO 11/03/23 08:59 25 mg DAILY LEVON Administration Lactulose 30 gm 11/02/22 15:00 Lactulose 20 Gm/30 Ml Udc PO 09/06/24 14:59 DAILY PRN Constipation Potassium Chloride 40 meq 11/04/22 09:00 11/08/22 09:50 Potassium Chloride Er 10 Meq Tablet.Er PO 11/04/23 08:59 40 meq DAILY LEVON Administration Sennosides 2 tab 11/03/22 12:00 Sennosides 8.6 Mg Tablet PO 11/03/23 11:59 DAILY@12 PRN If no BM in 2 days Sodium Chloride 0 ml 11/02/22 15:00 Sodium Chloride 0.9 % 10 Ml Syringe IV-PUSH 11/02/23 14:59 PRN PRN Flush Valsartan 320 mg 11/03/22 09:00 11/08/22 09:50 Valsartan 320 Mg Tablet PO 11/03/23 08:59 320 mg DAILY LEVON Administration Assessment/Plan Assessment/Plan (1) Cerebrovascular accident (CVA) of left thalamus: Plan: CTA of the brain in the ER showed 1 cm segment of critical stenosis involving the left MCA M1 segment which is causing compromise flow along with occlusion ofthe distal M2 segment of the left frontal lobe and MRI of the cris confirmed evidence of late subacute infarct involving the left thalamus Continue with dual antiplatelet therapy with aspirin 81 mg and clopidogrel 75 mg Continue to work with therapy as directed to help improve his functional status Code(s): I63.81 - Other cerebral infarction due to occlusion or stenosis of small artery Status: Acute (2) Right hemiplegia: Code(s): G81.91 - Hemiplegia, unspecified affecting right dominant side Status: Acute (3) Oropharyngeal dysphagia: Plan: Speech therapy saw the patient during his inpatient hospital stay who recommended a diet dental soft solids, chopped meats and thin liquids; pills to be given whole in applesauce and 1:1 feeding supervision Continue to work with therapy while in the rehab unit Continue to monitor this closely Code(s): R13.12 - Dysphagia, oropharyngeal phase Status: Acute (4) Hypertensive urgency: Plan: Patient presented with hypertensive urgency with systolic blood pressures in [id number] Continue with his current antihypertensive regimen and closely monitor his bloodpressures Allow somewhat permissive hypertension given his recent acute CVA, however this should continue to be lowered during his rehab stay Code(s): I16.0 - Hypertensive urgency Status: Acute (5) Nonadherence to medication: Code(s): Z91.148 - Patient's other noncompliance with medication regimen for other reason Status: Acute (6) Intracranial atherosclerosis: Code(s): I67.2 - Cerebral atherosclerosis Status: Acute (7) Hyperlipidemia: Plan: Atorvastatin 80 mg was started in the hospital Should continue with this high dose statin Code(s): E78.5 - Hyperlipidemia, unspecified Status: Acute (8) Tobacco abuse disorder: Code(s): Z72.0 - Tobacco use Status: Acute Plan Mr. Doherty is a 67-year-old male with history of hypertensive urgency and intracranial atherosclerosis, recent medication nonadherence over the past year or so who presented with right hemiplegia, ataxia, dysarthria and oropharyngeal dysphagia postacute left thalamic stroke. -Clinically improved today, mental status issues resolved -CT head unremarkable, labs unremarkable. -Agree with holding sleep meds for now -Progressing with therapy. Hospitalist to assist with management of comorbid medical conditions Pain control: No issues at present Bowel and bladder: Bowel regimen. No urinary retention post stroke. Skin: No pressure ulcers on admission Sleep: Optimize. Continue trazodone. DVT prophylaxis: Continue Functional status: Impaired. PT/OT/SWITCHBOARD INSTALLER as ordered Discharge planning: Home next week, tentatively 11/14/22 Plan: I completed a substantive portion of this encounter, the medical decision makingportion of this note in its entirety, including Allied health note review, nursing note review, quality compliance consultant note review, discussion with nursing and case management, and more than 50% of my time was spent on counseling and coordination of care, time spent 30 minutes Patient was personally seen by me, Dr. Sen, on the day of encounter, reviewed the history and the relevant portions of the chart, including current orders, allied health and quality compliance consultant notes, labs/imaging and performed garner elements of exam and I formulated the plan of care and facilitated the medical decision making. Documented By: Jose Martin Sen MD 11/08/22 1149 Signed By: <Electronically signed by Jose Martin Sen MD> 11/08/22 1151 [facility] Work Phone: 1(600) 740-294109-13-2023 Progress note Author Nu Nur [facility] November 08, 2022 9:11am Note Date/Time November 07, 2022 4:12pm [facility] [address] [place] [address] Hospitalist Progress Note Signed Patient: Viraj Doherty MR#: [id number] : 1955 Acct:[id number] Age/Sex: 67 / M Adm Date: 3 Loc: 5T Room: 9K9579-1 Type: ADM IN Attending Dr: Jose Martin Sen MD Copies to: ~ Date of Service: 11/07/2022 Subjective Subjective Narrative: Patient is seen and examined at the request of nursing staff. Patient reportedly had some confusion and change in his speech while working with speechtherapy today. PMR team had already ordered stat head CT With results of known subacute left thymic region infarct appearing hyperdense on today's study without hemorrhagic conversion, superimposed on cortical atrophy and chronic microvascular ischemic changes. Nursing staff advised me telephonically that his vital signs were stable at that time of the incident. Blood pressure most recently taken when I entered the room was 128 systolic. His is present bedside and she indicates this is much lower than his chronic hypertension, and reported his prior noncompliance with meds at home. He is not diabetic, indicates he has only been taking bites. Labs reviewed and not significant. Patient states he is just tired today but feels fine otherwise, with contributing his tiredness to taking melatonin last night- states he does not want this anymore. He denies any headache dizziness or visual disturbance. Denies any new weakness. His indicates only mild slight decline in his speech. He again reiterates he feels this is due to his fatigue. Exam Physical Exam Vital Signs: Temp Pulse Resp BP Pulse Ox O2 Del Method 97.7 F 67 18 147/72 H 96 Room Air 11/07/22 05:07 11/07/22 05:07 11/07/22 05:07 11/07/22 05:07 11/07/22 05:07 11/07/22 09:40 Narrative: CONST- alert, in bed, no distress at rest CARD- RRR no abnormal heart tones EENT- right scleral hemorrhage noted PULM- dimin without wheeze or rhonchi, RA ABD- S/NT, NABS EXTREM- no edema BLE, calves nontender NEURO- A&Ox3, speech dysarthric but understandable, tongue midline, equal facialsymmetry MS- mild right hand grasp/ arm strength weakness. RLE bobbles with elevation but he is able to maintain above bed Objective Lab Results 11/07/22 15:00 11/07/22 15:00 Meds Allergies and Active Meds Allergies No Known Allergies Allergy (Verified 10/30/22 19:24) Active Meds: Active Medications Generic Name Dose Route Start Last Admin Trade Name Juan PRN Reason Stop Dose Admin Acetaminophen 500 mg 11/02/22 15:00 11/02/22 21:25 Acetaminophen 500 Mg Tablet PO 11/02/23 14:59 500 mg Q4H PRN Administration Pain Al Hydrox/Mg Hydrox/Simethicone 30 ml 11/02/22 15:00 Mag Hydrox/Al Hydrox/Simeth 30 Ml Udc PO 11/02/23 14:59 Q4H PRN Indigestion Amlodipine Besylate 10 mg 11/03/22 09:00 11/07/22 09:32 Amlodipine 10 Mg Tablet PO 11/03/23 08:59 10 mg DAILY LEVON Administration Aspirin 81 mg 11/03/22 09:00 11/07/22 09:32 Aspirin 81 Mg Tablet.Dr PO 11/03/23 08:59 81 mg DAILY LEVON Administration Atorvastatin Calcium 80 mg 11/02/22 21:00 11/06/22 20:25 Atorvastatin 80 Mg Tablet PO 11/02/23 20:59 80 mg QPM LEVON Administration Bisacodyl 10 mg 11/02/22 15:00 Bisacodyl 10 Mg Supp.Rect NE 11/02/23 14:59 DAILY PRN Constipation Clopidogrel Bisulfate 75 mg 11/03/22 09:00 11/07/22 09:32 Clopidogrel Bisulfate 75 Mg Tablet PO 11/03/23 08:59 75 mg DAILY LEVON Administration Docusate Sodium 100 mg 11/02/22 15:00 Docusate 100 Mg Capsule PO 11/02/23 14:59 BID PRN Constipation Docusate Sodium 283 mg 11/02/22 15:00 Docusate Enema 283 Mg/5 Ml Enema NE 11/02/23 14:59 DAILY PRN Constipation Enoxaparin Sodium 40 mg 11/04/22 10:00 11/07/22 09:32 Enoxaparin 40 Mg/0.4 Ml Syringe SUBCUT 11/04/23 09:59 40 mg DAILY@1000 LEVON Administration Hydralazine HCl 25 mg 11/03/22 14:00 11/07/22 13:52 Hydralazine 25 Mg Tablet PO 11/03/23 13:59 25 mg TID LEVON Administration Hydrochlorothiazide 25 mg 11/03/22 09:00 11/07/22 09:32 Hydrochlorothiazide 25 Mg Tablet PO 11/03/23 08:59 25 mg DAILY LEVON Administration Lactulose 30 gm 11/02/22 15:00 Lactulose 20 Gm/30 Ml Udc PO 11/02/23 14:59 DAILY PRN Constipation Melatonin 5 mg 11/05/22 22:00 11/06/22 20:25 Melatonin 5 Mg Tablet PO 11/05/23 21:59 5 mg QHS LEVON Administration Potassium Chloride 40 meq 11/04/22 09:00 11/07/22 09:32 Potassium Chloride Er 10 Meq Tablet.Er PO 11/04/23 08:59 40 meq DAILY LEVON Administration Sennosides 2 tab 11/03/22 12:00 Sennosides 8.6 Mg Tablet PO 11/03/23 11:59 DAILY@12 PRN If no BM in 2 days Sodium Chloride 0 ml 11/02/22 15:00 Sodium Chloride 0.9 % 10 Ml Syringe IV-PUSH 11/02/23 14:59 PRN PRN Flush Trazodone HCl 75 mg 11/06/22 10:14 Trazodone 50 Mg Tablet PO 11/06/23 10:13 QHS PRN Insomnia Valsartan 320 mg 11/03/22 09:00 11/07/22 09:32 Valsartan 320 Mg Tablet PO 11/03/23 08:59 320 mg DAILY LEVON Administration A&P - Hospitalist Assessment/Plan (1) Cerebrovascular accident (CVA) of left thalamus: (2) Right hemiplegia: (3) Oropharyngeal dysphagia: (4) Hypertensive urgency: (5) Nonadherence to medication: (6) Intracranial atherosclerosis: (7) Hyperlipidemia: (8) Tobacco abuse disorder: Plan Left thalamic STROKE Intracranial arthrosclerosis Dysphagia Dysarthria Right sided weakness -Further POC per PMR team for rehabilitative therapy post stroke -DAPT therapy with aspirin and clopidogrel, atorvastatin for secondary stroke prevention -CT head 11/07 nonacute?known subacute left anomic region infarct without hemorrhagic conversion, cortical atrophy and chronic microvascular ischemic changes -If any further neurologic changes please reconsult neurology team Essential HTN Hypertensive urgency on admission now resolved -Valsartan hydralazine amlodipine and HCTZ. Prior noncompliance with medications at home -Check orthostatic vital Mixed Hyperlipidemia -Atorvastatin Pre-diabetes -A1c 6.1, outpatient follow-up with PCP Tobacco smoker -Nicotine replacement, smoking cessation education Documented By: KULWANT Barnes 3 [id number] Signed By: <Electronically signed by IBIS-KAREL Becker> 11/07/22 1624 <Electronically signed by Nu Nur MD> 11/08/22 0911 [facility] Work Phone: 1(425) 954-120209-12-2023 Progress note Author Jose Martin Sen [facility] November 07, 2022 11:59am Note Date/Time November 07, 2022 10:25am [facility] [address] [place] [address] Physiatry(Rehab) Progress Note Signed Patient: Viraj Doherty MR#: [id number] : 1955 Acct:[id number] Age/Sex: 67 / M Adm Date: 3 Loc: Room: 6D1655-9 Type: ADM IN Attending Dr: Jose Martin Sen MD Copies to: ~ Date of Service: 11/07/2022 Subjective Subjective Narrative: Mr. Doherty is a 67 year old male with a history of hypertension, previous CVA, psoriasis who initially presented to our emergency department on 10/30/22 for difficulty finding words and slurred speech as well as right-sided weakness which started the night prior to arrival. CT in the emergency department showedno acute intracranial abnormality with old bilateral lacunar infarcts, however CTA of the brain showed 1 cm segment of critical stenosis involving the left MCAM1 segment which is causing compromise flow along with occlusion of the distal M2 segment of the left frontal lobe. Case was discussed between ER physician and [facility] who requested the patient stay in the hospital for further CVA work- up. While in the hospital, MRI was performed and showed evidence of late subacute infarct involving the left thalamus. His bloodpressure was also found to be elevated during this stay with systolics in the 220s initially. Patient had reportedly stopped taking his antihypertensive medications at home. Patient was seen by neurology while in the hospital who recommended continued dual antiplatelet therapy with aspirin 81 mg and clopidogrel 75 mg as well as continuing 80 mg of Lipitor and consistent blood pressure control. Patient was seen in consult by Dr. Sen while in the hospital who agreed with admission to the inpatient rehab unit. Upon my evaluation of the patient on the inpatient rehab floor, he is sitting comfortably in wheelchair no distress. He states that his speech is still slurred and his right arm and leg do still feel weak, however the weakness seemsto be improving day by day. 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 He lives in a double wide mobile home with his . Patient would like to get back to being independent while on therehab unit. Aside from the right-sided weakness and slurred speech, he feels well. He does not have any chest pain, shortness of breath, abdominal pain, paresthesias, dizziness, headaches. Interval History: Reviewed at team meeting. Progressing towards goals but still with significant functional impairment related to ataxia poststroke. Blood pressure remains well controlled. Potassium improved to 3.8. Sleep improved with trazodone. Chronic conditions stable. Review of Systems Review of Systems All other systems reviewed & are negative unless noted below or in HPI Exam Physical Exam Vital Signs: Temp Pulse Resp BP Pulse Ox O2 Del Method 97.7 F 67 18 147/72 H 96 Room Air 11/07/22 05:07 11/07/22 05:07 11/07/22 05:07 11/07/22 05:07 11/07/22 05:07 11/07/22 05:07 Narrative: General: Awake, A&O x 3, pleasant, cooperative, well nourished HENT: NC, AT Eyes: No scleral icterus. Subconjunctival hemorrhage noted to the right eye Neck: Supple Cardio: RRR, no murmurs, rubs or gallops Respiratory: CTAB, no wheezes rhonchi or rales. No evidence of respiratory distress GI: Soft, nontender, nondistended Neuro: CN II-XII intact. Decreased strength in the right upper extremity compared to the left upper extremity. Lower extremity strength is equal and symmetric. Sensation intact bilateral upper and lower extremities Psych: Affect, movements normal. Mood congruent. Speech is slurred Objective Labs 11/03/22 05:13 11/07/22 05:14 Labs: Laboratory Results - last 24 hr 11/07/22 05:14 Potassium 3.8 Medications and Allergies Allergies and Active Meds: Allergies No Known Allergies Allergy (Verified 10/30/22 19:24) Active Medications Generic Name Dose Route Start Last Admin Trade Name Juan PRN Reason Stop Dose Admin Acetaminophen 500 mg 11/02/22 15:00 11/02/22 21:25 Acetaminophen 500 Mg Tablet PO 11/02/23 14:59 500 mg Q4H PRN Administration Pain Al Hydrox/Mg Hydrox/Simethicone 30 ml 11/02/22 15:00 Mag Hydrox/Al Hydrox/Simeth 30 Ml Udc PO 11/02/23 14:59 Q4H PRN Indigestion Amlodipine Besylate 10 mg 11/03/22 09:00 11/07/22 09:32 Amlodipine 10 Mg Tablet PO 11/03/23 08:59 10 mg DAILY LEVON Administration Aspirin 81 mg 11/03/22 09:00 11/07/22 09:32 Aspirin 81 Mg Tablet. PO 11/03/23 08:59 81 mg DAILY LEVON Administration Atorvastatin Calcium 80 mg 11/02/22 21:00 11/06/22 20:25 Atorvastatin 80 Mg Tablet PO 11/02/23 20:59 80 mg QPM LEVON Administration Bisacodyl 10 mg 11/02/22 15:00 Bisacodyl 10 Mg Supp.Rect NE 11/02/23 14:59 DAILY PRN Constipation Clopidogrel Bisulfate 75 mg 11/03/22 09:00 11/07/22 09:32 Clopidogrel Bisulfate 75 Mg Tablet PO 11/03/23 08:59 75 mg DAILY LEVON Administration Docusate Sodium 100 mg 11/02/22 15:00 Docusate 100 Mg Capsule PO 11/02/23 14:59 BID PRN Constipation Docusate Sodium 283 mg 11/02/22 15:00 Docusate Enema 283 Mg/5 Ml Enema NE 11/02/23 14:59 DAILY PRN Constipation Enoxaparin Sodium 40 mg 11/04/22 10:00 11/07/22 09:32 Enoxaparin 40 Mg/0.4 Ml Syringe SUBCUT 11/04/23 09:59 40 mg DAILY@1000 LEVON Administration Hydralazine HCl 25 mg 11/03/22 14:00 11/07/22 09:32 Hydralazine 25 Mg Tablet PO 11/03/23 13:59 25 mg TID LEVON Administration Hydrochlorothiazide 25 mg 11/03/22 09:00 11/07/22 09:32 Hydrochlorothiazide 25 Mg Tablet PO 11/03/23 08:59 25 mg DAILY LEVON Administration Lactulose 30 gm 11/02/22 15:00 Lactulose 20 Gm/30 Ml Udc PO 11/02/23 14:59 DAILY PRN Constipation Melatonin 5 mg 11/05/22 22:00 11/06/22 20:25 Melatonin 5 Mg Tablet PO 11/05/23 21:59 5 mg QHS LEVON Administration Potassium Chloride 40 meq 11/04/22 09:00 11/07/22 09:32 Potassium Chloride Er 10 Meq Tablet.Er PO 11/04/23 08:59 40 meq DAILY LEVON Administration Sennosides 2 tab 11/03/22 12:00 Sennosides 8.6 Mg Tablet PO 11/03/23 11:59 DAILY@12 PRN If no BM in 2 days Sodium Chloride 0 ml 11/02/22 15:00 Sodium Chloride 0.9 % 10 Ml Syringe IV-PUSH 11/02/23 14:59 PRN PRN Flush Trazodone HCl 75 mg 11/06/22 10:14 Trazodone 50 Mg Tablet PO 11/06/23 10:13 QHS PRN Insomnia Valsartan 320 mg 11/03/22 09:00 11/07/22 09:32 Valsartan 320 Mg Tablet PO 11/03/23 08:59 320 mg DAILY LEVON Administration Assessment/Plan Assessment/Plan (1) Cerebrovascular accident (CVA) of left thalamus: Plan: CTA of the brain in the ER showed 1 cm segment of critical stenosis involving the left MCA M1 segment which is causing compromise flow along with occlusion ofthe distal M2 segment of the left frontal lobe and MRI of the cris confirmed evidence of late subacute infarct involving the left thalamus Continue with dual antiplatelet therapy with aspirin 81 mg and clopidogrel 75 mg Continue to work with therapy as directed to help improve his functional status Code(s): I63.81 - Other cerebral infarction due to occlusion or stenosis of small artery Status: Acute (2) Right hemiplegia: Code(s): G81.91 - Hemiplegia, unspecified affecting right dominant side Status: Acute (3) Oropharyngeal dysphagia: Plan: Speech therapy saw the patient during his inpatient hospital stay who recommended a diet dental soft solids, chopped meats and thin liquids; pills to be given whole in applesauce and 1:1 feeding supervision Continue to work with therapy while in the rehab unit Continue to monitor this closely Code(s): R13.12 - Dysphagia, oropharyngeal phase Status: Acute (4) Hypertensive urgency: Plan: Patient presented with hypertensive urgency with systolic blood pressures in [id number] Continue with his current antihypertensive regimen and closely monitor his bloodpressures Allow somewhat permissive hypertension given his recent acute CVA, however this should continue to be lowered during his rehab stay Code(s): I16.0 - Hypertensive urgency Status: Acute (5) Nonadherence to medication: Code(s): Z91.148 - Patient's other noncompliance with medication regimen for other reason Status: Acute (6) Intracranial atherosclerosis: Code(s): I67.2 - Cerebral atherosclerosis Status: Acute (7) Hyperlipidemia: Plan: Atorvastatin 80 mg was started in the hospital Should continue with this high dose statin Code(s): E78.5 - Hyperlipidemia, unspecified Status: Acute (8) Tobacco abuse disorder: Code(s): Z72.0 - Tobacco use Status: Acute Plan Mr. Doherty is a 67-year-old male with history of hypertensive urgency and intracranial atherosclerosis, recent medication nonadherence over the past year or so who presented with right hemiplegia, ataxia, dysarthria and oropharyngeal dysphagia postacute left thalamic stroke. -K improved, 3.8 today. -Diet as per SWITCHBOARD INSTALLER and dietitian. -Monitor BP goal ~160 SBP for now, can lower gradually. On 3 BP meds at present.Improving as of 11/07/22. Maintain current regimen. -Secondary stroke prevention -Trend RBC noted 17.4, chronic tobacco abuse. Check labs Sunday. -Medication education, stroke education, stress compliance with regimen. -Progressing to goals, ambulating 100'. Hospitalist to assist with management of comorbid medical conditions Pain control: No issues at present Bowel and bladder: Bowel regimen. No urinary retention post stroke. Skin: No pressure ulcers on admission Sleep: Optimize. Continue trazodone. DVT prophylaxis: Continue Functional status: Impaired. PT/OT/SWITCHBOARD INSTALLER as ordered Discharge planning: Home next week, tentatively 11/14/22/ Plan: I completed a substantive portion of this encounter, the medical decision makingportion of this note in its entirety, including Allied health note review, nursing note review, quality compliance consultant note review, discussion with nursing and case management, and more than 50% of my time was spent on counseling and coordination of care, time spent 30 minutes Patient was personally seen by me, Dr. Sen, on the day of encounter, reviewed the history and the relevant portions of the chart, including current orders, allied health and quality compliance consultant notes, labs/imaging and performed garner elements of exam and I formulated the plan of care and facilitated the medical decision making. Documented By: Jose Martin Sen MD 11/07/22 1025 Signed By: <Electronically signed by Jose Martin Sen MD> 11/07/22 1158 [facility] Work Phone: [phone]) 173-146609-11-2023 Progress note Author Jose Martin Sen [facility] November 06, 2022 12:00pm Note Date/Time November 06, 2022 11:16am [facility] [address] [place] [address] Physiatry(Rehab) Progress Note Signed Patient: Viraj Doherty MR#: [id number] : 1955 Acct:[id number] Age/Sex: 67 / M Adm Date: 3 Loc: Room: [address] [place] [address] Type: ADM IN Attending Dr: Jose Martin Sen MD Copies to: ~ Date of Service: 11/06/2022 Subjective Subjective Narrative: Mr. Doherty is a 67 year old male with a history of hypertension, previous CVA, psoriasis who initially presented to our emergency department on 10/30/22 for difficulty finding words and slurred speech as well as right-sided weakness which started the night prior to arrival. CT in the emergency department showedno acute intracranial abnormality with old bilateral lacunar infarcts, however CTA of the brain showed 1 cm segment of critical stenosis involving the left MCAM1 segment which is causing compromise flow along with occlusion of the distal M2 segment of the left frontal lobe. Case was discussed between ER physician and [facility] who requested the patient stay in the hospital for further CVA work- up. While in the hospital, MRI was performed and showed evidence of late subacute infarct involving the left thalamus. His bloodpressure was also found to be elevated during this stay with systolics in the 220s initially. Patient had reportedly stopped taking his antihypertensive medications at home. Patient was seen by neurology while in the hospital who recommended continued dual antiplatelet therapy with aspirin 81 mg and clopidogrel 75 mg as well as continuing 80 mg of Lipitor and consistent blood pressure control. Patient was seen in consult by Dr. Sen while in the hospital who agreed with admission to the inpatient rehab unit. Upon my evaluation of the patient on the inpatient rehab floor, he is sitting comfortably in wheelchair no distress. He states that his speech is still slurred and his right arm and leg do still feel weak, however the weakness seemsto be improving day by day. 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 He lives in a double wide mobile home with his . Patient would like to get back to being independent while on therehab unit. Aside from the right-sided weakness and slurred speech, he feels well. He does not have any chest pain, shortness of breath, abdominal pain, paresthesias, dizziness, headaches. Interval History: BP control improving. K low but on supplementation, continue to monitor. Reports poor sleep, non-specific etiology. Requesting increased meds. Ambulating 100' with PT. Chronic conditions stable. Review of Systems Review of Systems All other systems reviewed & are negative unless noted below or in HPI Exam Physical Exam Vital Signs: Temp Pulse Resp BP Pulse Ox O2 Del Method 97.6 F 68 16 152/72 H 95 Room Air 11/06/22 10:11/06/22 10:11/06/22 10:11/06/22 10:11/06/22 10:11/06/22 10:11 Narrative: General: Awake, A&O x 3, pleasant, cooperative, well nourished HENT: NC, AT Eyes: No scleral icterus. Subconjunctival hemorrhage noted to the right eye Neck: Supple Cardio: RRR, no murmurs, rubs or gallops Respiratory: CTAB, no wheezes rhonchi or rales. No evidence of respiratory distress GI: Soft, nontender, nondistended Neuro: CN II-XII intact. Decreased strength in the right upper extremity compared to the left upper extremity. Lower extremity strength is equal and symmetric. Sensation intact bilateral upper and lower extremities Psych: Affect, movements normal. Mood congruent. Speech is slurred Objective Labs 11/03/22 05:13 11/06/22 04:57 Labs: Laboratory Results - last 24 hr 11/06/22 04:57 PHA Creatinine Clear 63.15 Sodium 137 Potassium 3.3 L Chloride 105 Carbon Dioxide 24.3 Anion Gap 11.0 BUN 35 H Creatinine 1.14 Est GFR (CKD-EPI) > 60.0 Glucose 104 H Calcium 9.2 Medications and Allergies Allergies and Active Meds: Allergies No Known Allergies Allergy (Verified 10/30/22 19:24) Active Medications Generic Name Dose Route Start Last Admin Trade Name Freq PRN Reason Stop Dose Admin Acetaminophen 500 mg 11/02/22 15:00 11/02/22 21:25 Acetaminophen 500 Mg Tablet PO 11/02/23 14:59 500 mg Q4H PRN Administration Pain Al Hydrox/Mg Hydrox/Simethicone 30 ml 11/02/22 15:00 Mag Hydrox/Al Hydrox/Simeth 30 Ml Udc PO 11/02/23 14:59 Q4H PRN Indigestion Amlodipine Besylate 10 mg 11/03/22 09:00 11/06/22 09:59 Amlodipine 10 Mg Tablet PO 11/03/23 08:59 10 mg DAILY LEVON Administration Aspirin 81 mg 11/03/22 09:00 11/06/22 09:59 Aspirin 81 Mg Tablet. PO 11/03/23 08:59 81 mg DAILY LEVON Administration Atorvastatin Calcium 80 mg 11/02/22 21:00 11/05/22 21:02 Atorvastatin 80 Mg Tablet PO 11/02/23 20:59 80 mg QPM LEVON Administration Bisacodyl 10 mg 11/02/22 15:00 Bisacodyl 10 Mg Supp.Rect NE 11/02/23 14:59 DAILY PRN Constipation Clopidogrel Bisulfate 75 mg 11/03/22 09:00 11/06/22 09:59 Clopidogrel Bisulfate 75 Mg Tablet PO 11/03/23 08:59 75 mg DAILY LEVON Administration Docusate Sodium 100 mg 11/02/22 15:00 Docusate 100 Mg Capsule PO 11/02/23 14:59 BID PRN Constipation Docusate Sodium 283 mg 11/02/22 15:00 Docusate Enema 283 Mg/5 Ml Enema NE 11/02/23 14:59 DAILY PRN Constipation Enoxaparin Sodium 40 mg 11/04/22 10:00 09/11/23 09:59 Enoxaparin 40 Mg/0.4 Ml Syringe SUBCUT 11/04/23 09:59 40 mg DAILY@1000 LEVON Administration Hydralazine HCl 25 mg 11/03/22 14:00 11/06/22 09:59 Hydralazine 25 Mg Tablet PO 11/03/23 13:59 25 mg TID LEVON Administration Hydrochlorothiazide 25 mg 11/03/22 09:00 11/06/22 09:59 Hydrochlorothiazide 25 Mg Tablet PO 11/03/23 08:59 25 mg DAILY LEVON Administration Lactulose 30 gm 11/02/22 15:00 Lactulose 20 Gm/30 Ml Udc PO 11/02/23 14:59 DAILY PRN Constipation Melatonin 5 mg 11/05/22 22:00 11/05/22 21:02 Melatonin 5 Mg Tablet PO 11/05/23 21:59 5 mg QHS LEVON Administration Potassium Chloride 40 meq 11/04/22 09:00 11/06/22 09:59 Potassium Chloride Er 10 Meq Tablet.Er PO 11/04/23 08:59 40 meq DAILY LEVON Administration Sennosides 2 tab 11/03/22 12:00 Sennosides 8.6 Mg Tablet PO 11/03/23 11:59 DAILY@12 PRN If no BM in 2 days Sodium Chloride 0 ml 11/02/22 15:00 Sodium Chloride 0.9 % 10 Ml Syringe IV-PUSH 11/02/23 14:59 PRN PRN Flush Sodium Chloride 10 ml 11/02/22 22:00 11/06/22 05:32 Sodium Chloride 0.9 % 10 Ml Syringe IV-PUSH 11/02/23 21:59 10 ml Q8H LEVON Administration Trazodone HCl 75 mg 11/06/22 10:14 Trazodone 50 Mg Tablet PO 11/06/23 10:13 QHS PRN Insomnia Valsartan 320 mg 11/03/22 09:00 11/06/22 09:59 Valsartan 320 Mg Tablet PO 11/03/23 08:59 320 mg DAILY LEVON Administration Assessment/Plan Assessment/Plan (1) Cerebrovascular accident (CVA) of left thalamus: Plan: CTA of the brain in the ER showed 1 cm segment of critical stenosis involving the left MCA M1 segment which is causing compromise flow along with occlusion ofthe distal M2 segment of the left frontal lobe and MRI of the cris confirmed evidence of late subacute infarct involving the left thalamus Continue with dual antiplatelet therapy with aspirin 81 mg and clopidogrel 75 mg Continue to work with therapy as directed to help improve his functional status Code(s): I63.81 - Other cerebral infarction due to occlusion or stenosis of small artery Status: Acute (2) Right hemiplegia: Code(s): G81.91 - Hemiplegia, unspecified affecting right dominant side Status: Acute (3) Oropharyngeal dysphagia: Plan: Speech therapy saw the patient during his inpatient hospital stay who recommended a diet dental soft solids, chopped meats and thin liquids; pills to be given whole in applesauce and 1:1 feeding supervision Continue to work with therapy while in the rehab unit Continue to monitor this closely Code(s): R13.12 - Dysphagia, oropharyngeal phase Status: Acute (4) Hypertensive urgency: Plan: Patient presented with hypertensive urgency with systolic blood pressures in [id number] Continue with his current antihypertensive regimen and closely monitor his bloodpressures Allow somewhat permissive hypertension given his recent acute CVA, however this should continue to be lowered during his rehab stay Code(s): I16.0 - Hypertensive urgency Status: Acute (5) Nonadherence to medication: Code(s): Z91.148 - Patient's other noncompliance with medication regimen for other reason Status: Acute (6) Intracranial atherosclerosis: Code(s): I67.2 - Cerebral atherosclerosis Status: Acute (7) Hyperlipidemia: Plan: Atorvastatin 80 mg was started in the hospital Should continue with this high dose statin Code(s): E78.5 - Hyperlipidemia, unspecified Status: Acute (8) Tobacco abuse disorder: Code(s): Z72.0 - Tobacco use Status: Acute Plan Mr. Doherty is a 67-year-old male with history of hypertensive urgency and intracranial atherosclerosis, recent medication nonadherence over the past year or so who presented with right hemiplegia, ataxia, dysarthria and oropharyngeal dysphagia postacute left thalamic stroke. -Monitor BP goal ~160 SBP for now, can lower gradually. On 3 BP meds at present.Improving as of 11/06/22. Maintain current regimen. -Secondary stroke prevention -Trend RBC noted 17.4, chronic tobacco abuse. Check labs sunday. -Medication education, stroke education, stress compliance with regimen. -Progressing to goals, ambulating 100'. Hospitalist to assist with management of comorbid medical conditions Pain control: No issues at present Bowel and bladder: Bowel regimen. Monitor for urinary retention post stroke. Skin: No pressure ulcers on admission Sleep: Optimize DVT prophylaxis: Continue Functional status: Impaired. PT/OT/SWITCHBOARD INSTALLER as ordered Discharge planning: Home next week. Plan: I completed a substantive portion of this encounter, the medical decision makingportion of this note in its entirety, including Allied health note review, nursing note review, quality compliance consultant note review, discussion with nursing and case management, and more than 50% of my time was spent on counseling and coordination of care, time spent 30 minutes Patient was personally seen by me, Dr. Sen, on the day of encounter, reviewed the history and the relevant portions of the chart, including current orders, allied health and quality compliance consultant notes, labs/imaging and performed garner elements of exam and I formulated the plan of care and facilitated the medical decision making. Documented By: Jose Martin Sen MD 11/06/22 1115 Signed By: <Electronically signed by Jose Martin Sen MD> 11/06/22 1200 [facility] Work Phone: 1(874) 747-694009-09-2023 Progress note Author Jose Martin Sen [facility] November 04, 2022 10:52am Note Date/Time November 04, 2022 10:52am [facility] [address] [place] [address] Physiatry(Rehab) Progress Note Signed Patient: Viraj Doherty MR#: [id number] : 1955 Acct:[id number] Age/Sex: 67 / M Adm Date: 3 Loc: Room: 0J5881-0 Type: ADM IN Attending Dr: Jose Martin Sen MD Copies to: ~ Date of Service: 11/04/2022 Subjective Subjective Narrative: Mr. Doherty is a 67 year old male with a history of hypertension, previous CVA, psoriasis who initially presented to our emergency department on 10/30/22 for difficulty finding words and slurred speech as well as right-sided weakness which started the night prior to arrival. CT in the emergency department showedno acute intracranial abnormality with old bilateral lacunar infarcts, however CTA of the brain showed 1 cm segment of critical stenosis involving the left MCAM1 segment which is causing compromise flow along with occlusion of the distal M2 segment of the left frontal lobe. Case was discussed between ER physician and [facility] who requested the patient stay in the hospital for further CVA work- up. While in the hospital, MRI was performed and showed evidence of late subacute infarct involving the left thalamus. His bloodpressure was also found to be elevated during this stay with systolics in the 220s initially. Patient had reportedly stopped taking his antihypertensive medications at home. Patient was seen by neurology while in the hospital who recommended continued dual antiplatelet therapy with aspirin 81 mg and clopidogrel 75 mg as well as continuing 80 mg of Lipitor and consistent blood pressure control. Patient was seen in consult by Dr. Sen while in the hospital who agreed with admission to the inpatient rehab unit. Upon my evaluation of the patient on the inpatient rehab floor, he is sitting comfortably in wheelchair no distress. He states that his speech is still slurred and his right arm and leg do still feel weak, however the weakness seemsto be improving day by day. 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 He lives in a double wide mobile home with his . Patient would like to get back to being independent while on therehab unit. Aside from the right-sided weakness and slurred speech, he feels well. He does not have any chest pain, shortness of breath, abdominal pain, paresthesias, dizziness, headaches. Interval History: Improved BP. Continue to trend. Supplement potassium. Ambulating 22' mod assist. Chronic conditions stable. Review of Systems Review of Systems All other systems reviewed & are negative unless noted below or in HPI Exam Physical Exam Vital Signs: Temp Pulse Resp BP Pulse Ox O2 Del Method 98.1 F 83 16 138/75 95 Room Air 11/04/22 08:36 11/04/22 08:36 11/04/22 08:36 11/04/22 08:36 11/04/22 08:36 11/04/22 08:36 Narrative: General: Awake, A&O x 3, pleasant, cooperative, well nourished HENT: NC, AT Eyes: No scleral icterus. Subconjunctival hemorrhage noted to the right eye Neck: Supple Cardio: RRR, no murmurs, rubs or gallops Respiratory: CTAB, no wheezes rhonchi or rales. No evidence of respiratory distress GI: Soft, nontender, nondistended Neuro: CN II-XII intact. Decreased strength in the right upper extremity compared to the left upper extremity. Lower extremity strength is equal and symmetric. Sensation intact bilateral upper and lower extremities Psych: Affect, movements normal. Mood congruent. Speech is slurred Objective Labs 11/03/22 05:13 11/04/22 04:56 Labs: Laboratory Results - last 24 hr 11/03/22 11/04/22 16:44 04:56 PHA Creatinine Clear 58.54 Sodium 137 Potassium 3.4 L 3.2 L Chloride 104 Carbon Dioxide 23.7 Anion Gap 12.5 BUN 29 H Creatinine 1.26 Est GFR (CKD-EPI) > 60.0 Glucose 102 H Calcium 9.3 Magnesium 2.0 Medications and Allergies Allergies and Active Meds: Allergies No Known Allergies Allergy (Verified 10/30/22 19:24) Active Medications Generic Name Dose Route Start Last Admin Trade Name Freq PRN Reason Stop Dose Admin Acetaminophen 500 mg 11/02/22 15:00 11/02/22 21:25 Acetaminophen 500 Mg Tablet PO 11/02/23 14:59 500 mg Q4H PRN Administration Pain Al Hydrox/Mg Hydrox/Simethicone 30 ml 11/02/22 15:00 Mag Hydrox/Al Hydrox/Simeth 30 Ml Udc PO 11/02/23 14:59 Q4H PRN Indigestion Amlodipine Besylate 10 mg 11/03/22 09:00 11/04/22 08:39 Amlodipine 10 Mg Tablet PO 11/03/23 08:59 10 mg DAILY LEVON Administration Aspirin 81 mg 11/03/22 09:00 11/04/22 08:39 Aspirin 81 Mg Tablet.Dr PO 11/03/23 08:59 81 mg DAILY LEVON Administration Atorvastatin Calcium 80 mg 11/02/22 21:00 11/03/22 20:23 Atorvastatin 80 Mg Tablet PO 11/02/23 20:59 80 mg QPM LEVON Administration Bisacodyl 10 mg 11/02/22 15:00 Bisacodyl 10 Mg Supp.Rect NE 11/02/23 14:59 DAILY PRN Constipation Clopidogrel Bisulfate 75 mg 11/03/22 09:00 11/04/22 08:39 Clopidogrel Bisulfate 75 Mg Tablet PO 11/03/23 08:59 75 mg DAILY LEVON Administration Docusate Sodium 100 mg 11/02/22 15:00 Docusate 100 Mg Capsule PO 11/02/23 14:59 BID PRN Constipation Docusate Sodium 283 mg 11/02/22 15:00 Docusate Enema 283 Mg/5 Ml Enema NE 11/02/23 14:59 DAILY PRN Constipation Enoxaparin Sodium 40 mg 11/04/22 10:00 11/04/22 09:42 Enoxaparin 40 Mg/0.4 Ml Syringe SUBCUT 11/04/23 09:59 40 mg DAILY@1000 LEVON Administration Hydralazine HCl 25 mg 11/03/22 14:00 11/04/22 08:39 Hydralazine 25 Mg Tablet PO 11/03/23 13:59 25 mg TID LEVON Administration Hydrochlorothiazide 25 mg 11/03/22 09:00 11/04/22 08:39 Hydrochlorothiazide 25 Mg Tablet PO 11/03/23 08:59 25 mg DAILY LEVON Administration Lactulose 30 gm 11/02/22 15:00 Lactulose 20 Gm/30 Ml Udc PO 11/02/23 14:59 DAILY PRN Constipation Potassium Chloride 40 meq 11/04/22 09:00 11/04/22 09:42 Potassium Chloride Er 10 Meq Tablet.Er PO 11/04/23 08:59 40 meq DAILY LEVON Administration Sennosides 2 tab 11/03/22 12:00 Sennosides 8.6 Mg Tablet PO 11/03/23 11:59 DAILY@12 PRN If no BM in 2 days Sodium Chloride 0 ml 11/02/22 15:00 Sodium Chloride 0.9 % 10 Ml Syringe IV-PUSH 11/02/23 14:59 PRN PRN Flush Sodium Chloride 10 ml 11/02/22 22:00 11/04/22 05:45 Sodium Chloride 0.9 % 10 Ml Syringe IV-PUSH 11/02/23 21:59 10 ml Q8H LEVON Administration Valsartan 320 mg 11/03/22 09:00 11/04/22 08:39 Valsartan 320 Mg Tablet PO 11/03/23 08:59 320 mg DAILY LEVON Administration Assessment/Plan Assessment/Plan (1) Cerebrovascular accident (CVA) of left thalamus: Plan: CTA of the brain in the ER showed 1 cm segment of critical stenosis involving the left MCA M1 segment which is causing compromise flow along with occlusion ofthe distal M2 segment of the left frontal lobe and MRI of the cris confirmed evidence of late subacute infarct involving the left thalamus Continue with dual antiplatelet therapy with aspirin 81 mg and clopidogrel 75 mg Continue to work with therapy as directed to help improve his functional status Code(s): I63.81 - Other cerebral infarction due to occlusion or stenosis of small artery Status: Acute (2) Right hemiplegia: Code(s): G81.91 - Hemiplegia, unspecified affecting right dominant side Status: Acute (3) Oropharyngeal dysphagia: Plan: Speech therapy saw the patient during his inpatient hospital stay who recommended a diet dental soft solids, chopped meats and thin liquids; pills to be given whole in applesauce and 1:1 feeding supervision Continue to work with therapy while in the rehab unit Continue to monitor this closely Code(s): R13.12 - Dysphagia, oropharyngeal phase Status: Acute (4) Hypertensive urgency: Plan: Patient presented with hypertensive urgency with systolic blood pressures in [id number] This was slowly lowered during his inpatient hospital stay and seems to be improving now, however it is still somewhat elevated Most recent blood pressure 167/80 Continue with his current antihypertensive regimen and closely monitor his bloodpressures Allow somewhat permissive hypertension given his recent acute CVA, however this should continue to be lowered during his rehab stay Code(s): I16.0 - Hypertensive urgency Status: Acute (5) Nonadherence to medication: Code(s): Z91.148 - Patient's other noncompliance with medication regimen for other reason Status: Acute (6) Intracranial atherosclerosis: Code(s): I67.2 - Cerebral atherosclerosis Status: Acute (7) Hyperlipidemia: Plan: Atorvastatin 80 mg was started in the hospital Should continue with this high dose statin Code(s): E78.5 - Hyperlipidemia, unspecified Status: Acute (8) Tobacco abuse disorder: Code(s): Z72.0 - Tobacco use Status: Acute Plan Mr. Doherty is a 67-year-old male with history of hypertensive urgency and intracranial atherosclerosis, recent medication nonadherence over the past year or so who presented with right hemiplegia, ataxia, dysarthria and oropharyngeal dysphagia postacute left thalamic stroke. -Monitor BP goal ~160 SBP for now, can lower gradually. On 3 BP meds at present.Improving. -Secondary stroke prevention -Trend RBC noted 17.4, chronic tobacco abuse. -Medication education, stroke education, stress compliance with regimen. -Progressing to goals, ambulating 22'. Hospitalist to assist with management of comorbid medical conditions Pain control: No issues at present Bowel and bladder: Bowel regimen. Monitor for urinary retention post stroke. Skin: No pressure ulcers on admission Sleep: Optimize DVT prophylaxis: Continue Functional status: Impaired. 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 Plan: I completed a substantive portion of this encounter, the medical decision makingportion of this note in its entirety, including Allied health note review, nursing note review, quality compliance consultant note review, discussion with nursing and case management, and more than 50% of my time was spent on counseling and coordination of care, time spent 30 minutes Patient was personally seen by me, Dr. Sen, on the day of encounter, reviewed the history and the relevant portions of the chart, including current orders, allied health and quality compliance consultant notes, labs/imaging and performed garner elements of exam and I formulated the plan of care and facilitated the medical decision making. Documented By: Jose Martin Sen MD 11/04/22 1050 Signed By: <Electronically signed by Jose Martin Sen MD> 11/04/22 1052 [facility] Work Phone: 1(106) 505-147209-08-2023 Consult note Author Sara Osorio [facility] November 03, 2022 6:45pm Note Date/Time November 03, 2022 2:03pm [facility] [address] [place] [address] Hospitalist Consult Note Signed with Amb[place] Patient: Viraj Doherty MR#: [id number] : 1955 Acct:[id number] Age/Sex: 67 / M Adm Date: 3 Loc: Room: 4J7854-8 Type: ADM IN Attending Dr: Jose Martin Sen MD Copies to: JASMIN Stern MD Joseph Riley, MD~ ADDENDUM1 18:44- stools studies still pending results. K level 3.4 after oral repletion with 20 mEq today. Will give 40 mEq now and recheck BMP and magnesium level in am. Addendum Documented By: JASMIN Osorio 11/03/221844 Addendum Signed By: <Electronically signed by JASMIN Osorio> 11/03/221844 HPI DATE OF CONSULTATION: 11/03/22 REQUESTING PROVIDER: Jose Martin Sen Consult Narrative Reason for Consult: Essential HTN HPI: 67-year-old male with history of HTN, HLD and intracranial atherosclerosis, recent medication noncompliance over the past year, who presented with right hemiplegia, ataxia, dysarthria and oropharyngeal dysphagia postacute left thalamic stroke. Patient admitted to inpatient rehab unit. [facility] medicine [facility] consulted for medical management of essential HTN. Patient fairly asymptomatic without any chest pain or shortness of breath. Awake, alert and oriented x 4 communicating clearly. He has had approximately 3 loose watery stools today. No recent antibiotic therapy. Not on any promotility, stool surface Steris or laxatives. Patient had initially presented to the ER with the chief complaint of slurred speech that started the night before admission. Blood pressure on presentation was greater than 220/110. CT of the head without any ICH. CTA of the head and neck noted to MCA occlusions in the M1 and M2 segments. ER physician discussed with stroke team in [place] who did not recommend TNK as patient was outside the window and was recommended for admission for MRI and neurology evaluation with the commencement of DAPT therapy and statin therapy. Patient was subsequently stabilized and admitted to the inpatient rehab unit. Patient per patient's was admitted to [facility] 2 years prior with uncontrolled hypertension and CVA. Patient was discharged home on blood pressure medications and poststroke medications per guidelines however he did not like the side effects from the medications and stopped taking them shortly thereafter. Since then he reports multiple intermittent self resolving episodesof slurred speech that is expressive in nature with the exception of his presenting symptoms which persisted. Patient labs reviewed, leukocytosis with white blood cell count of 13.7, was 14.3 yesterday. Hemoglobin level at 17.4?patient is a tobacco smoker, hematocrit 49.6. Sodium level 137, hypokalemia with potassium of 3.4 noted. Creatinine 1.21 with a BUN of 23 and GFR greater than 60. Blood glucose 95. Anion gap 10.1. Serum chloride 102. Total bili at 1.6 otherwise LFTs unremarkable. Troponin on admission unremarkable. CK level unremarkable admission at 133. Lipid panel showed mixed hyperlipidemia with a cholesterol level of 244 and LDL of 179. HDL 39. Triglycerides 129. Hemoglobin A1c was checked and noted to be at 6.1?patient in prediabetes range. Presenting EKG withnormal sinus rhythm 68 bpm, rightward axis with by IRBBB. Vital signs show patient has been afebrile with a temperature orally of 98.4 ?F, pulse rate 90 bpm, respiratory rate 16 breaths/min, blood pressure 164/81, oxygen saturation at 94% on room air. CTA of the brain in the ER showed 1 cm segment of critical stenosis involving the left MCA M1 segment which is causing compromise flow along with occlusion of the distal M2 segment of the left frontal lobe and MRI of the brain confirmed evidence of late subacute infarct involving the left thalamus. Echo showed EF 55 to 60%, mild concentric left ventricular hypertrophy, mild mitral regurgitation. Past medical history: Essential hypertension, mixed hyperlipidemia, history of TIA/CVA Past surgical history: No reported surgery Social history: Current tobacco smoker. Denies any alcohol or drug use Family history: Reviewed and not pertinent to patient presentation A 10 point ROS was reviewed, all other systems unremarkable with the exception of what was mentioned in the above HPI Review of Systems Review of Systems Review of systems: 10 systems are reviewed and are negative except as mentioned elsewhere in the documentation. [facility] Medical History CVA (cerebral vascular accident) HTN (hypertension) Hx of TIA (transient ischemic attack) and stroke Family History (Updated 11/03/22 @ 15:55 by Rohan Levy DO) Other Hypertension Social History Smoking Status: Never smoker Substance Use Type: None Meds Medications and Allergies Allergies No Known Allergies Allergy (Verified 10/30/22 19:24) Home Medications amlodipine 10 mg-valsartan 320 mg-hydrochlorothiazide 25 mg tablet 1 tab PO DAILY #30 tabs 11/02/22 [Rx Confirmed 11/02/22] aspirin 81 mg tablet,delayed release 81 mg PO DAILY #0 tabs 11/02/22 [Rx Confirmed 11/02/22] atorvastatin 80 mg tablet 80 mg PO QPM #0 tabs 11/02/22 [Rx Confirmed 11/02/22] clopidogrel 75 mg tablet 75 mg PO DAILY #0 tabs 11/02/22 [Rx Confirmed 11/02/22] potassium chloride 10 mEq capsule,extended release 10 meq PO DAILY #30 caps 11/02/22 [Rx Confirmed 11/02/22] Active Medications: Active Medications Generic Name Dose Route Start Last Admin Trade Name Juan PRN Reason Stop Dose Admin Acetaminophen 500 mg 11/02/22 15:00 11/02/22 21:25 Acetaminophen 500 Mg Tablet PO 11/02/23 14:59 500 mg Q4H PRN Administration Pain Al Hydrox/Mg Hydrox/Simethicone 30 ml 11/02/22 15:00 Mag Hydrox/Al Hydrox/Simeth 30 Ml Udc PO 11/02/23 14:59 Q4H PRN Indigestion Amlodipine Besylate 10 mg 11/03/22 09:00 11/03/22 09:01 Amlodipine 10 Mg Tablet PO 11/03/23 08:59 10 mg DAILY LEVON Administration Aspirin 81 mg 11/03/22 09:00 11/03/22 09:01 Aspirin 81 Mg Tablet. PO 11/03/23 08:59 81 mg DAILY LEVON Administration Atorvastatin Calcium 80 mg 11/02/22 21:00 11/02/22 21:25 Atorvastatin 80 Mg Tablet PO 11/02/23 20:59 80 mg QPM LEVON Administration Bisacodyl 10 mg 11/02/22 15:00 Bisacodyl 10 Mg Supp.Rect NE 11/02/23 14:59 DAILY PRN Constipation Clopidogrel Bisulfate 75 mg 11/03/22 09:00 11/03/22 09:01 Clopidogrel Bisulfate 75 Mg Tablet PO 11/03/23 08:59 75 mg DAILY LEVON Administration Docusate Sodium 100 mg 11/02/22 15:00 Docusate 100 Mg Capsule PO 11/02/23 14:59 BID PRN Constipation Docusate Sodium 283 mg 11/02/22 15:00 Docusate Enema 283 Mg/5 Ml Enema NE 11/02/23 14:59 DAILY PRN Constipation Enoxaparin Sodium 40 mg 11/04/22 10:00 Enoxaparin 40 Mg/0.4 Ml Syringe SUBCUT 11/04/23 09:59 DAILY@1000 LEVON Hydralazine HCl 25 mg 11/03/22 14:00 Hydralazine 25 Mg Tablet PO 11/03/23 13:59 TID LEVON Hydrochlorothiazide 25 mg 11/03/22 09:00 11/03/22 09:01 Hydrochlorothiazide 25 Mg Tablet PO 11/03/23 08:59 25 mg DAILY LEVON Administration Lactulose 30 gm 11/02/22 15:00 Lactulose 20 Gm/30 Ml Udc PO 11/02/23 14:59 DAILY PRN Constipation Potassium Chloride 10 meq 11/03/22 09:00 11/03/22 09:01 Potassium Chloride Er 10 Meq Tablet.Er PO 11/03/23 08:59 10 meq DAILY LEVON Administration Sennosides 2 tab 11/03/22 12:00 Sennosides 8.6 Mg Tablet PO 11/03/23 11:59 DAILY@12 PRN If no BM in 2 days Sodium Chloride 0 ml 11/02/22 15:00 Sodium Chloride 0.9 % 10 Ml Syringe IV-PUSH 11/02/23 14:59 PRN PRN Flush Sodium Chloride 10 ml 11/02/22 22:00 11/03/22 05:26 Sodium Chloride 0.9 % 10 Ml Syringe IV-PUSH 11/02/23 21:59 10 ml Q8H LEVON Administration Valsartan 320 mg 11/03/22 09:00 11/03/22 09:01 Valsartan 320 Mg Tablet PO 11/03/23 08:59 320 mg DAILY LEVON Administration Exam Physical Exam Vital Signs: Temp Pulse Resp BP Pulse Ox O2 Del Method 98.4 F 90 16 164/81 H 94 L Room Air 11/03/22 14:00 11/03/22 14:00 11/03/22 14:00 11/03/22 14:00 11/03/22 14:00 11/03/22 14:00 Narrative: General: Awake, A&O x 3, pleasant, cooperative, well nourished HENT: NC, AT Eyes: No scleral icterus. Subconjunctival hemorrhage noted to the right eye Neck: Supple Cardio: RRR, no murmurs, rubs or gallops Respiratory: CTAB, no wheezes rhonchi or rales. No evidence of respiratory distress GI: Soft, nontender, nondistended Neuro: CN II-XII intact. Decreased strength in the right upper extremity compared to the left upper extremity. Lower extremity strength is equal and symmetric. Sensation intact bilateral upper and lower extremities Psych: Affect, movements normal. Mood congruent. Speech is slurred Results Lab Results Labs: Laboratory Results - last 72 hr 11/03/22 05:13: PHA Creatinine Clear 60.96, Sodium 137, Potassium 3.4 L, Chloride 102, Carbon Dioxide 28.3, Anion Gap 10.1, BUN 23, Creatinine 1.21, Est GFR (CKD- EPI) > 60.0, Glucose 95, Calcium 9.6, Total Bilirubin 1.6 H, AST 19, ALT 17, Alkaline Phosphatase 64, Total Protein 7.6, Albumin 4.5, Globulin 3.1, Albumin/Globulin Ratio 1.5, Prealbumin 28.1 11/03/22 05:13: Corrected WBC 13.7 H, Uncorrected WBC Count 13.7 H, RBC 5.65 H, Hgb 17.4 H, Hct 49.6, MCV 87.9, MCH 30.8, MCHC 35.0, RDW 14.3, Plt Count 191, MPV 8.7, Neut % (Auto) 64.6, Lymph % (Auto) 21.6, [place] % (Auto) 12.2, Eos % (Auto) 0.8, Baso % (Auto) 0.8, Nucleat RBC Rel Count 0.0, Neut # (Auto) 8.9 H, Lymph # (Auto) 3.0, [place] # (Auto) 1.7 H, Eos # (Auto) 0.1, Baso # (Auto) 0.1, Platelet Estimate Normal, Plt Morphology Comment Normal, RBC Morphology N/A, Anisocytosis Slight, Microcytosis Slight Assessment & Plan Assessment/Plan (1) Cerebrovascular accident (CVA) of left thalamus: Plan: CTA of the brain in the ER showed 1 cm segment of critical stenosis involving the left MCA M1 segment which is causing compromise flow along with occlusion ofthe distal M2 segment of the left frontal lobe and MRI of the brain confirmed evidence of late subacute infarct involving the left thalamus Echo showed EF 55 to 60%, mild concentric left ventricular hypertrophy, mild mitral regurgitation. (2) Right hemiplegia: (3) Oropharyngeal dysphagia: Plan: Speech therapy saw the patient during his inpatient hospital stay who recommended a diet dental soft solids, chopped meats and thin liquids; pills to be given whole in applesauce and 1:1 feeding supervision (4) Hypertensive urgency: Plan: Patient presented with hypertensive urgency with systolic blood pressures in [id number] (5) Nonadherence to medication: (6) Intracranial atherosclerosis: (7) Hyperlipidemia: Plan: Atorvastatin 80 mg was started in the hospital (8) Tobacco abuse disorder: Plan Hospital medicine consulted for medical management of essential HTN Left thalamic STROKE Intracranial arthrosclerosis Dysphagia Admit to primary team PMR CBC and BMP checks defer to primary team Diet and activity defer to primary team Continue with dual antiplatelet therapy with aspirin 81 mg and clopidogrel 75 mg PT and OT Discharge planning per primary team Essential HTN Hypertensive urgency on admission now resolved Patient labs, prior records and radiological studies reviewed and noted above Continue current anti-hypertensives Advise risk factor modification with diet and activity Add hydralazine 25 mg TID for added BP control Hospital medicine will follow BP peripherally. Leukocytosis- unknown etiology at this time Patient afebrile He has had approximately 3 loose watery stools today. No recent antibiotic therapy. Not on any promotility, stool surface Steris or laxatives. Check stool for C. difficile and stool PCR for other pathogens Hypokalemia due to GI fluid loss Monitor and replete per protocol Patient takes 10 mEq daily > add another 10 mEq today to make total dose of 20 mEq Repeat potassium level this afternoon Mixed Hyperlipidemia Continue high intensity statin therapy Pre-diabetes Hgb A1C 6.1 Advised aggressive risk factor modification with diet and activity Follow-up with PCP for continued monitoring Tobacco smoker Trend RBC noted 17.4 Smoking cessation encouraged Nicotine patch at patient request Medical non-compliance Reinforced importance of compliance and risk to mortality with non-compliance ++++ ++++ I personally saw this patient on the day of the encounter, reviewed the relevanthistory, performed the garner elements of the physical exam, and discussed and formulated the plan of care with the Nurse Practitioner, and I confirm the NursePractitioner's documentation as written. Documented By: Sara Osorio APRN 11/03/22 1 403 Signed By: <Electronically signed by JASMIN Osorio> 11/03/22 1504 <Electronically signed by Rohan Levy DO> 11/03/22 8469 [facility] Work Phone: 1(458) 380-336109-08-2023 History and physical note Author Jose Martin Sen [facility] November 03, 2022 12:59pm Note Date/Time November 03, 2022 9:33am [facility] [address] [place] [address] Physiatry (Rehab) H&P Signed Patient: Viraj Doherty MR#: [id number] : 1955 Acct:[id number] Age/Sex: 67 / M Adm Date: 3 Loc: 5T Room: [address] [place] [address] Type: ADM IN Attending Dr: Jose Martin Sen MD Copies to: MD Jose Martin Millan MD Kyle Denihan, DO,RES~ <John Hodge DO, RES - Last Filed: 11/03/22 10:26> Date of Service: 11/03/2022 HPI <John Hodge DO, RES - Last Filed: 11/03/22 10:26> The patient was seen and examined on: 11/03/22 Chief complaint: Slurred speech, right sided weakness History of Present Illness: Mr. Doherty is a 67 year old male with a history of hypertension, previous CVA, psoriasis who initially presented to our emergency department on 10/30/22 for difficulty finding words and slurred speech as well as right-sided weakness which started the night prior to arrival. CT in the emergency department showedno acute intracranial abnormality with old bilateral lacunar infarcts, however CTA of the brain showed 1 cm segment of critical stenosis involving the left MCAM1 segment which is causing compromise flow along with occlusion of the distal M2 segment of the left frontal lobe. Case was discussed between ER physician and [facility] interventional radiology who requested the patient stay in the hospital for further CVA work- up. While in the hospital, MRI was performed and showed evidence of late subacute infarct involving the left thalamus. His bloodpressure was also found to be elevated during this stay with systolics in the 220s initially. Patient had reportedly stopped taking his antihypertensive medications at home. Patient was seen by neurology while in the hospital who recommended continued dual antiplatelet therapy with aspirin 81 mg and clopidogrel 75 mg as well as continuing 80 mg of Lipitor and consistent blood pressure control. Patient was seen in consult by Dr. Sen while in the hospital who agreed with admission to the inpatient rehab unit. Upon my evaluation of the patient on the inpatient rehab floor, he is sitting comfortably in wheelchair no distress. He states that his speech is still slurred and his right arm and leg do still feel weak, however the weakness seemsto be improving day by day. 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 He lives in a double wide mobile home with his . Patient would like to get back to being independent while on therehab unit. Aside from the right-sided weakness and slurred speech, he feels well. He does not have any chest pain, shortness of breath, abdominal pain, paresthesias, dizziness, headaches. <Jose Martin Sen MD - Last Filed: 11/03/22 12:59> Etiologic Diagnosis/Impairment Group: Stroke [facility] <John Hodge DO, RES - Last Filed: 11/03/22 10:26> Medical History CVA (cerebral vascular accident) HTN (hypertension) Hx of TIA (transient ischemic attack) and stroke Social History Smoking Status: Never smoker Substance Use Type: None Review of Systems <John Hodge DO, RES - Last Filed: 11/03/22 10:26> Constitutional Constitutional: Reports system reviewed and no additional complaints, except as documented Eyes Eyes: Reports system reviewed and no additional complaints, except as documented ENT Ears, Nose, Mouth, and Throat: Reports system reviewed and no additional complaints, except as documented Cardiovascular Cardiovascular: Reports system reviewed and no additional complaints, except as documented Respiratory Respiratory: Reports system reviewed and no additional complaints, except as documented Gastrointestinal Gastrointestinal: Reports system reviewed and no additional complaints, except as documented Genitourinary Genitourinary: Reports system reviewed and no additional complaints, except as documented Musculoskeletal Musculoskeletal: Reports system reviewed and no additional complaints, except asdocumented Integumentary/Breasts Skin/Breast: Reports system reviewed and no additional complaints, except as documented Neurologic Neurologic: Reports system reviewed and no additional complaints, except as documented Meds <John Hodge DO, RES - Last Filed: 11/03/22 10:26> Medications and Allergies Allergies No Known Allergies Allergy (Verified 10/30/22 19:24) Home and Active Meds: Home Medications amlodipine 10 mg-valsartan 320 mg-hydrochlorothiazide 25 mg tablet 1 tab PO DAILY #30 tabs 11/02/22 [Rx Confirmed 11/02/22] aspirin 81 mg tablet,delayed release 81 mg PO DAILY #0 tabs 11/02/22 [Rx Confirmed 11/02/22] atorvastatin 80 mg tablet 80 mg PO QPM #0 tabs 11/02/22 [Rx Confirmed 11/02/22] clopidogrel 75 mg tablet 75 mg PO DAILY #0 tabs 11/02/22 [Rx Confirmed 11/02/22] potassium chloride 10 mEq capsule,extended release 10 meq PO DAILY #30 caps 11/02/22 [Rx Confirmed 11/02/22] Active Medications Acetaminophen (Acetaminophen 500 Mg Tablet) 500 mg PO Q4H PRN PRN Reason: Pain Stop: 11/02/23 14:59 Last Admin: 11/02/22 21:25 Dose: 500 mg Al Hydrox/Mg Hydrox/Simethicone (Mag Hydrox/Al Hydrox/Simeth 30 Ml Udc) 30 ml PO Q4H PRN PRN Reason: Indigestion Stop: 11/02/23 14:59 Amlodipine Besylate (Amlodipine 10 Mg Tablet) 10 mg PO DAILY LEVON Stop: 11/03/23 08:59 Last Admin: 11/03/22 09:01 Dose: 10 mg Aspirin (Aspirin 81 Mg Tablet.) 81 mg PO DAILY LEVON Stop: 11/03/23 08:59 Last Admin: 11/03/22 09:01 Dose: 81 mg Atorvastatin Calcium (Atorvastatin 80 Mg Tablet) 80 mg PO QPM LEVON Stop: 11/02/23 20:59 Last Admin: 11/02/22 21:25 Dose: 80 mg Bisacodyl (Bisacodyl 10 Mg Supp.Rect) 10 mg NE DAILY PRN PRN Reason: Constipation Stop: 11/02/23 14:59 Clopidogrel Bisulfate (Clopidogrel Bisulfate 75 Mg Tablet) 75 mg PO DAILY LEVON Stop: 11/03/23 08:59 Last Admin: 11/03/22 09:01 Dose: 75 mg Docusate Sodium (Docusate 100 Mg Capsule) 100 mg PO BID PRN PRN Reason: Constipation Stop: 11/02/23 14:59 Docusate Sodium (Docusate Enema 283 Mg/5 Ml Enema) 283 mg NE DAILY PRN PRN Reason: Constipation Stop: 11/02/23 14:59 Hydrochlorothiazide (Hydrochlorothiazide 25 Mg Tablet) 25 mg PO DAILY LEVON Stop: 11/03/23 08:59 Last Admin: 11/03/22 09:01 Dose: 25 mg Lactulose (Lactulose 20 Gm/30 Ml Udc) 30 gm PO DAILY PRN PRN Reason: Constipation Stop: 11/02/23 14:59 Potassium Chloride (Potassium Chloride Er 10 Meq Tablet.Er) 10 meq PO DAILY LEVON Stop: 11/03/23 08:59 Last Admin: 11/03/22 09:01 Dose: 10 meq Sennosides (Sennosides 8.6 Mg Tablet) 2 tab PO DAILY@12 PRN PRN Reason: If no BM in 2 days Stop: 11/03/23 11:59 Sodium Chloride (Sodium Chloride 0.9 % 10 Ml Syringe) 0 ml IV-PUSH PRN PRN PRN Reason: Flush Stop: 11/02/23 14:59 Sodium Chloride (Sodium Chloride 0.9 % 10 Ml Syringe) 10 ml IV-PUSH Q8H LEVON Stop: 11/02/23 21:59 Last Admin: 11/03/22 05:26 Dose: 10 ml Valsartan (Valsartan 320 Mg Tablet) 320 mg PO DAILY [facility] Stop: 11/03/23 08:59 Last Admin: 11/03/22 09:01 Dose: 320 mg Exam <John Hodge DO, RES - Last Filed: 11/03/22 10:26> Physical Exam Vital Signs: Temp Pulse Resp BP Pulse Ox O2 Del Method 98.0 F 89 18 167/80 H 94 L Room Air 11/03/22 05:21 11/03/22 09:05 11/03/22 05:21 11/03/22 09:05 11/03/22 09:05 11/03/22 09:05 Narrative: General: Awake, A&O x 3, pleasant, cooperative, well nourished HENT: NC, AT Eyes: No scleral icterus. Subconjunctival hemorrhage noted to the right eye Neck: Supple Cardio: RRR, no murmurs, rubs or gallops Respiratory: CTAB, no wheezes rhonchi or rales. No evidence of respiratory distress GI: Soft, nontender, nondistended Neuro: CN II-XII intact. Decreased strength in the right upper extremity compared to the left upper extremity. Lower extremity strength is equal and symmetric. Sensation intact bilateral upper and lower extremities Psych: Affect, movements normal. Mood congruent. Speech is slurred Results <John Hodge DO, RES - Last Filed: 11/03/22 10:26> Labs Labs: Laboratory Results - last 24 hr 11/03/22 11/03/22 05:13 05:13 Corrected WBC 13.7 H Uncorrected WBC Count 13.7 H RBC 5.65 H Hgb 17.4 H Hct 49.6 MCV 87.9 MCH 30.8 MCHC 35.0 RDW 14.3 Plt Count 191 MPV 8.7 Neut % (Auto) 64.6 Lymph % (Auto) 21.6 [place] % (Auto) 12.2 Eos % (Auto) 0.8 Baso % (Auto) 0.8 Nucleat RBC Rel Count 0.0 Neut # (Auto) 8.9 H Lymph # (Auto) 3.0 [place] # (Auto) 1.7 H Eos # (Auto) 0.1 Baso # (Auto) 0.1 Platelet Estimate Normal Plt Morphology Comment Normal RBC Morphology N/A Anisocytosis Slight Microcytosis Slight PHA Creatinine Clear 60.96 Sodium 137 Potassium 3.4 L Chloride 102 Carbon Dioxide 28.3 Anion Gap 10.1 BUN 23 Creatinine 1.21 Est GFR (CKD-EPI) > 60.0 Glucose 95 Calcium 9.6 Total Bilirubin 1.6 H AST 19 ALT 17 Alkaline Phosphatase 64 Total Protein 7.6 Albumin 4.5 Globulin 3.1 Albumin/Globulin Ratio 1.5 Prealbumin 28.1 <Jose Martin Sen MD - Last Filed: 11/03/22 12:59> Additional Results Results Comment: I reviewed clinical lab tests, radiology reports and obtained and summated medical records and have ordered follow up lab tests and imaging studies as needed for rehabilitation care. <Jose Martin Sen MD - Last Filed: 11/03/22 12:59> Individualized Plan of Care Plan of Care: Individualized Overall Plan of Care: Admit Date/Time: November 02, 2022 Expected LOS: 2 weeks Expected Discharge Destination: Home Rehabilitation IGC: 01.2 Primary Diagnosis: Stroke right hemiplegia To have patient become more independent and to return home. Medical/ Functional Prognosis: Good Anticipated Functional Outcomes/Goals and Interventions: 1.Therapy Functional Outcome/Goal: Anticipate independent bed mobility Anticipated interventions: Physician management, PT, OT, SWITCHBOARD INSTALLER, , Dietitian, RehabNursing, Case management 2. Therapy Functional Outcome/Goal: Anticipate independent transfers Anticipated interventions: Physician management, PT, OT, SWITCHBOARD INSTALLER, Case management, Dietitian, Rehab Nursing 3. Therapy Functional Outcome/Goal: Anticipate independent ambulation Anticipated interventions: Physician management, PT, OT, SWITCHBOARD INSTALLER Case management, Dietitian, Rehab Nursing 4.Therapy Functional Outcome/Goal: Anticipate independent self-care Anticipated interventions: Physician management, PT, OT, SWITCHBOARD INSTALLER, Case management, Dietitian, Rehab Nursing 5.Therapy Functional Outcome/Goal: Anticipate independent functional communication and swallowing Anticipated interventions: Physician management, PT, OT, SWITCHBOARD INSTALLER, Case management, Dietitian, Rehab Nursing Required Therapy PT: 1 hour per day at least 5 days per week with additional therapy on as neededbasis. Comments: PT to improve pt's strength, endurance, bed mobility, transfers (sit-stand), standing balance, gait quality on level surfaces and stairs, coordination and functional ADL skills. Will also work to improve pt's safety awareness during transfers and ambulation. OT: 1 hour per day at least 5 days per week with additional therapy on as neededbasis. Comments: OT for basic ADL re-training (bathing, dressing, toileting, continence, grooming, feeding, transferring), to increase activity tolerance andfunctional mobility and to evaluate for adaptive and assistive devices. Will work to improve pt's endurance and educate pt on fall prevention and energy conservation techniques-pacing strategies and proper breathing techniques duringfunctional tasks. Speech/Language - 1 hour per day at least 5 days per week with additional therapy on as needed basis. Comments: SWITCHBOARD INSTALLER to evaluate and treat patient?s cognition, language and communication skills, assess swallow function. Other: Dietitian, Rehab nursing, Wound, P&O, Neuropsychology as needed RATIONALE FOR IRF ADMISSION: Patient has both medical and functional complexities that require 24 hour daily monitoring and intervention from Spring Coiling Machine Setter as well as other consulting physicians including internal medicine as well as 24 hour daily circulation tender nursing - for medical safe / optimal management. Patient requires interdisciplinary therapy team rehabilitation care including OT, PT, SWITCHBOARD INSTALLER, SW, Psychology, Rehab Nursing, requires and can tolerate at least 3hours of daily OT and PT therapy at least 5 days weekly. The following medical conditions significantly impact the rehabilitation process and are being addressed daily and can not be managed at home or in a lesser intense medical setting: Refer to above problem oriented plan of care Assessment/Plan <John Hodge DO, RES - Last Filed: 11/03/22 10:26> (1) Cerebrovascular accident (CVA) of left thalamus: Plan: CTA of the brain in the ER showed 1 cm segment of critical stenosis involving the left MCA M1 segment which is causing compromise flow along with occlusion ofthe distal M2 segment of the left frontal lobe and MRI of the cris confirmed evidence of late subacute infarct involving the left thalamus Continue with dual antiplatelet therapy with aspirin 81 mg and clopidogrel 75 mg Continue to work with therapy as directed to help improve his functional status Code(s): I63.81 - Other cerebral infarction due to occlusion or stenosis of small artery Status: Acute (2) Right hemiplegia: Code(s): G81.91 - Hemiplegia, unspecified affecting right dominant side Status: Acute (3) Oropharyngeal dysphagia: Plan: Speech therapy saw the patient during his inpatient hospital stay who recommended a diet dental soft solids, chopped meats and thin liquids; pills to be given whole in applesauce and 1:1 feeding supervision Continue to work with therapy while in the rehab unit Continue to monitor this closely Code(s): R13.12 - Dysphagia, oropharyngeal phase Status: Acute (4) Hypertensive urgency: Plan: Patient presented with hypertensive urgency with systolic blood pressures in [id number] This was slowly lowered during his inpatient hospital stay and seems to be improving now, however it is still somewhat elevated Most recent blood pressure 167/80 Continue with his current antihypertensive regimen and closely monitor his bloodpressures Allow somewhat permissive hypertension given his recent acute CVA, however this should continue to be lowered during his rehab stay Code(s): I16.0 - Hypertensive urgency Status: Acute (5) Nonadherence to medication: Code(s): Z91.148 - Patient's other noncompliance with medication regimen for other reason Status: Acute (6) Intracranial atherosclerosis: Code(s): I67.2 - Cerebral atherosclerosis Status: Acute (7) Hyperlipidemia: Plan: Atorvastatin 80 mg was started in the hospital Should continue with this high dose statin Code(s): E78.5 - Hyperlipidemia, unspecified Status: Acute (8) Tobacco abuse disorder: Code(s): Z72.0 - Tobacco use Status: Acute Plan Mr. Doherty is a 67-year-old male with history of hypertensive urgency and intracranial atherosclerosis, recent medication nonadherence over the past year or so who presented with right hemiplegia, ataxia, dysarthria and oropharyngeal dysphagia postacute left thalamic stroke. <Jose Martin Sen MD - Last Filed: 11/03/22 12:59> (1) Cerebrovascular accident (CVA) of left thalamus: Plan: CTA of the brain in the ER showed 1 cm segment of critical stenosis involving the left MCA M1 segment which is causing compromise flow along with occlusion ofthe distal M2 segment of the left frontal lobe and MRI of the cris confirmed evidence of late subacute infarct involving the left thalamus Continue with dual antiplatelet therapy with aspirin 81 mg and clopidogrel 75 mg Continue to work with therapy as directed to help improve his functional status (2) Right hemiplegia: (3) Oropharyngeal dysphagia: Plan: Speech therapy saw the patient during his inpatient hospital stay who recommended a diet dental soft solids, chopped meats and thin liquids; pills to be given whole in applesauce and 1:1 feeding supervision Continue to work with therapy while in the rehab unit Continue to monitor this closely (4) Hypertensive urgency: Plan: Patient presented with hypertensive urgency with systolic blood pressures in [id number] This was slowly lowered during his inpatient hospital stay and seems to be improving now, however it is still somewhat elevated Most recent blood pressure 167/80 Continue with his current antihypertensive regimen and closely monitor his bloodpressures Allow somewhat permissive hypertension given his recent acute CVA, however this should continue to be lowered during his rehab stay (5) Nonadherence to medication: (6) Intracranial atherosclerosis: (7) Hyperlipidemia: Plan: Atorvastatin 80 mg was started in the hospital Should continue with this high dose statin (8) Tobacco abuse disorder: Plan Mr. Doherty is a 67-year-old male with history of hypertensive urgency and intracranial atherosclerosis, recent medication nonadherence over the past year or so who presented with right hemiplegia, ataxia, dysarthria and oropharyngeal dysphagia postacute left thalamic stroke. -Monitor BP goal ~160 SBP for now, can lower gradually. On 3 BP meds at present. -Secondary stroke prevention -Trend RBC noted 17.4, chronic tobacco abuse. -Medication education, stroke education, stress compliance with regimen. Hospitalist to assist with management of comorbid medical conditions Pain control: No issues at present Bowel and bladder: Bowel regimen. Monitor for urinary retention post stroke. Skin: No pressure ulcers on admission Sleep: Optimize DVT prophylaxis: Add lovenox Functional status: Imapired. Pt/OT/SWITCHBOARD INSTALLER as ordered Discharge planning: Home 1-2 weeks Plan: I completed a substantive portion of this encounter, the medical decision makingportion of this note in its entirety, including Allied health note review, nursing note review, quality compliance consultant note review, discussion with nursing and case management, and more than 50% of my time was spent on counseling and coordination of care, time spent 70 minutes Patient was personally seen by me, Dr. Sen, on the day of encounter, reviewed the history and the relevant portions of the chart, including current orders, allied health and quality compliance consultant notes, labs/imaging and performed garner elements of exam and I formulated the plan of care and facilitated the medical decision making. Patient was personally seen by me on the day of encounter, reviewed the history and performed garner elements of exam and formulated the plan of care and confirmedthe resident physician note, as above Documented By: John Hodge DO,FLOYD 11/03/22 092 9 Signed By: <Electronically signed by DO FLOYD Hodge> 11/03/22 1026 <Electronically signed by Jose Martin Sen MD> 11/03/22 1259 [facility] Work Phone: 1(712) 663-717009-06-2023 Progress note Author Davey Harding [facility] November 01, 2022 2:15pm Note Date/Time November 01, 2022 11:38am [facility] [address] [place] [address] Hospitalist Progress Note Signed Patient: Viraj Doherty MR#: [id number] : 1955 Acct:[id number] Age/Sex: 67 / M Adm Date: 3 Loc: 4 Room: [id number] Type: ADM IN Attending Dr: Davey Harding MD Copies to: ~ Date of Service: 11/01/2022 Subjective Subjective Narrative: Attending note: I saw the patient personally on the day of encounter. I reviewed the relevant history, and performed the garner elements of the physical examination. I reviewedthe relevant laboratory workup, radiological studies and the current treatment plan. 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 Patient resting in bed, is frustrated that he cannot eat well due to his right upper extremity weakness. He is approved for rehab once his blood pressure is controlled Exam Physical Exam Vital Signs: Temp Pulse Resp BP Pulse Ox O2 Del Method 98.3 F 70 18 179/79 H 99 Room Air 11/01/22 11:11/01/22 11:11/01/22 11:11/01/22 11:11/01/22 11:11/01/22 11:09 Narrative: CONSTITUTIONAL: Alert, oriented HEAD: Normocephalic, atraumatic EYES: EOMI, subconjunctival hemorrhage noted in right eye RESPIRATORY: No distress, lungs clear bilaterally, symmetric chest rise, no wheezes/rales/rhonchi CARDIOVASCULAR: Regular rate and regular rhythm, no murmurs ABDOMEN: Soft, non-tender, non-distended, normal bowel sounds BACK: No midline or paraspinal tenderness SKIN: Intact, no rash, no trauma NEURO: Decreased strength in right upper extremity compared to left with sensation intact, lower extremities equal strength bilaterally PSYCHIATRIC: Normal affect Objective Lab Results 11/01/22 04:45 11/01/22 04:45 Meds Allergies and Active Meds Allergies No Known Allergies Allergy (Verified 10/30/22 19:24) Active Meds: Active Medications Generic Name Dose Route Start Last Admin Trade Name Freq PRN Reason Stop Dose Admin Acetaminophen 1,000 mg 10/30/22 21:18 Acetaminophen 500 Mg Tablet PO 10/30/23 21:17 Q6H PRN Fever > 100.4 F Amlodipine Besylate 5 mg 11/01/22 10:40 11/01/22 11:06 Amlodipine 5 Mg Tablet PO 11/01/23 10:39 5 mg DAILY LEVON Administration Aspirin 81 mg 10/31/22 09:00 11/01/22 08:46 Aspirin 81 Mg Tablet. PO 10/31/23 08:59 81 mg DAILY LEVON Administration Atorvastatin Calcium 80 mg 10/31/22 21:00 10/31/22 21:58 Atorvastatin 80 Mg Tablet PO 10/31/23 20:59 80 mg QPM LEVON Administration Clopidogrel Bisulfate 75 mg 10/31/22 09:00 11/01/22 08:47 Clopidogrel Bisulfate 75 Mg Tablet PO 10/31/23 08:59 75 mg DAILY LEVON Administration Hydralazine HCl 10 mg 10/31/22 09:58 11/01/22 08:49 Hydralazine 20 Mg/Ml Vial IV-PUSH 10/30/23 22:06 10 mg Q4H PRN Administration Hypertension Hydrochlorothiazide 25 mg 11/01/22 10:40 11/01/22 11:06 Hydrochlorothiazide 25 Mg Tablet PO 11/01/23 10:39 25 mg DAILY LEVON Administration Labetalol HCl 20 mg 11/01/22 10:41 Labetalol 100 Mg/20 Ml Vial IV-PUSH 10/30/23 21:29 Q4H PRN Hypertension Rivaroxaban 10 mg 10/31/22 15:12 11/01/22 08:46 Rivaroxaban 10 Mg Tablet PO 10/31/23 15:11 10 mg DAILY LEVON Administration Ropinirole HCl 1 mg 10/31/22 21:01 10/31/22 21:56 Ropinirole 0.5 Mg Tablet PO 10/31/23 21:59 1 mg QHS PRN Administration Restless leg Sodium Chloride 0 ml 10/30/22 19:09 11/01/22 04:53 Sodium Chloride 0.9 % 10 Ml Syringe IV-PUSH 10/30/23 19:08 10 ml PRN PRN Administration Flush Valsartan 80 mg 11/01/22 21:00 Valsartan 80 Mg Tablet PO 11/01/23 20:59 BID LEVON A&P - Hospitalist Assessment/Plan (1) Acute CVA (cerebrovascular accident): (2) Hypertensive urgency: Plan # Acute CVA, slurred speech - slurred speech likely due to CVA with hx of CVA in the past and non-compliant with meds - CTA head/neck with MCA M1 and M2 occlusions which were discussed with neurology in [place]. Will continue asa/plavix/statin - MRI showed evidence of late subacute infarct involving the left thalamic region superimposed on cortical atrophy and moderately severe chronic microvascular ischemic changes - Echo showed EF 55 to 60%, mild concentric left ventricular hypertrophy, mild mitral regurgitation. - neurology consulted - neurochecks - Added on lipid, A1c, TSH # HTN urgency - hx of HTN - stopped taking meds. Non-compliant - BP > 220/110 on arrival - permissive HTN with prn labetalol for SBP>180, added valsartan - added amlodipine, HCTZ today with plan to DC on triple combo pill # Subconjunctival hemorrhage, R eye discharge - Continue saline drops, discharge improved Documented By: Davey Harding MD 11/01/22 1135 Signed By: <Electronically signed by Davey Harding MD> 11/01/22 1415 <Electronically signed by DO FLOYD Bear> 11/01/22 1138 [facility] Work Phone: 1(234) 513-771109-06-2023 Progress note Author Jose Martin Sen [facility] November 01, 2022 10:34am Note Date/Time November 01, 2022 10:32am [facility] [address] [place] [address] Physiatry(Rehab) Progress Note Signed Patient: Viraj Doherty MR#: [id number] : 1955 Acct:[id number] Age/Sex: 67 / M Adm Date: 3 Loc: Room: [address] [place] [address] Type: ADM IN Attending Dr: Davey Harding MD Copies to: ~ Date of Service: 11/01/2022 Subjective Subjective Narrative: Mr. Doherty is a 67 year old male presenting with acute hypertensive left thalamic stroke in the setting of medication nonadherence. Several days of dysarthria and slurred speech, which initially seemed to be self-limiting. Symptoms worsened, she presented to the emergency room for further evaluation. Blood pressure was elevated into the 220s. Imaging demonstrated acute left thalamic stroke and diffuse chronic microvascular changes. Chart review notes that patient has essentially stopped taking his medications over the past year or so and does not have a primary care physician. Neurology also at bedside. Explained the nature of stroke and plan for rehabilitation in the inpatient setting. Patient and voiced agreement for admission, when cleared by primary team. Interval History: Seen and examined at bedside. Required IV BP meds earlier this morning. Most recent reading 216/103. TTE completed EF 55-60%. Patient reports unchanged neurologic symptoms from yesterday. Review of Systems Review of Systems All other systems reviewed & are negative unless noted below or in HPI Exam Physical Exam Vital Signs: Temp Pulse Resp BP Pulse Ox O2 Del Method 98.1 F 66 16 216/103 H 98 Room Air 11/01/22 08:00 11/01/22 08:00 11/01/22 08:00 11/01/22 08:00 11/01/22 08:00 11/01/22 08:00 Narrative: Awake and alert, can follow commands. Non-labored breathing AO x 3. Right hemiplegia, grossly 4/5, ataxic Dysarthria Objective Labs 11/01/22 04:45 11/01/22 04:45 Labs: Laboratory Results - last 24 hr 10/31/22 10/31/22 11/01/22 11:20 11:20 04:45 Corrected WBC 13.5 H Uncorrected WBC Count 13.5 H RBC 5.48 Hgb 16.8 Hct 48.2 MCV 87.8 MCH 30.6 MCHC 34.8 RDW 14.0 Plt Count 206 MPV 9.0 Neut % (Auto) 68.3 Lymph % (Auto) 23.0 [place] % (Auto) 7.7 Eos % (Auto) 0.3 Baso % (Auto) 0.7 Nucleat RBC Rel Count 0.6 H Neut # (Auto) 9.2 H Lymph # (Auto) 3.1 [place] # (Auto) 1.0 H Eos # (Auto) 0.0 Baso # (Auto) 0.1 PHA Creatinine Clear Sodium Potassium Chloride Carbon Dioxide Anion Gap BUN Creatinine Est GFR (CKD-EPI) Glucose Estimat Average Glucose 128 Hemoglobin A1c 6.1 H Calcium Triglycerides 129 Cholesterol 244 H LDL Cholesterol, Calc 179 H VLDL Cholesterol 25 HDL Cholesterol 39 Cholesterol/HDL Ratio 6.3 TSH 3rd Generation 3.23 11/01/22 04:45 Corrected WBC Uncorrected WBC Count RBC Hgb Hct MCV MCH MCHC RDW Plt Count MPV Neut % (Auto) Lymph % (Auto) [place] % (Auto) Eos % (Auto) Baso % (Auto) Nucleat RBC Rel Count Neut # (Auto) Lymph # (Auto) [place] # (Auto) Eos # (Auto) Baso # (Auto) PHA Creatinine Clear 72.09 Sodium 141 Potassium 3.2 L Chloride 105 Carbon Dioxide 25.6 Anion Gap 13.6 BUN 17 Creatinine 1.03 Est GFR (CKD-EPI) > 60.0 Glucose 108 H Estimat Average Glucose Hemoglobin A1c Calcium 9.5 Triglycerides Cholesterol LDL Cholesterol, Calc VLDL Cholesterol HDL Cholesterol Cholesterol/HDL Ratio TSH 3rd Generation Medications and Allergies Allergies and Active Meds: Allergies No Known Allergies Allergy (Verified 10/30/22 19:24) Active Medications Generic Name Dose Route Start Last Admin Trade Name Freq PRN Reason Stop Dose Admin Acetaminophen 1,000 mg 10/30/22 21:18 Acetaminophen 500 Mg Tablet PO 10/30/23 21:17 Q6H PRN Fever > 100.4 F Aspirin 81 mg 10/31/22 09:00 11/01/22 08:46 Aspirin 81 Mg Tablet. PO 10/31/23 08:59 81 mg DAILY LEVON Administration Atorvastatin Calcium 80 mg 10/31/22 21:00 10/31/22 21:58 Atorvastatin 80 Mg Tablet PO 10/31/23 20:59 80 mg QPM LEVON Administration Clopidogrel Bisulfate 75 mg 10/31/22 09:00 11/01/22 08:47 Clopidogrel Bisulfate 75 Mg Tablet PO 10/31/23 08:59 75 mg DAILY LEVON Administration Hydralazine HCl 10 mg 10/31/22 09:58 11/01/22 08:49 Hydralazine 20 Mg/Ml Vial IV-PUSH 10/30/23 22:06 10 mg Q4H PRN Administration Hypertension Labetalol HCl 10 mg 10/31/22 09:59 11/01/22 04:53 Labetalol 100 Mg/20 Ml Vial IV-PUSH 10/30/23 21:29 10 mg Q4H PRN Administration Hypertension Rivaroxaban 10 mg 10/31/22 15:12 11/01/22 08:46 Rivaroxaban 10 Mg Tablet PO 10/31/23 15:11 10 mg DAILY LEVON Administration Ropinirole HCl 1 mg 10/31/22 21:01 10/31/22 21:56 Ropinirole 0.5 Mg Tablet PO 10/31/23 21:59 1 mg QHS PRN Administration Restless leg Sodium Chloride 0 ml 10/30/22 19:09 11/01/22 04:53 Sodium Chloride 0.9 % 10 Ml Syringe IV-PUSH 10/30/23 19:08 10 ml PRN PRN Administration Flush Valsartan 80 mg 10/31/22 10:00 11/01/22 08:46 Valsartan 80 Mg Tablet PO 10/31/23 09:59 80 mg DAILY LEVON Administration Assessment/Plan Assessment/Plan (1) Cerebrovascular accident (CVA) of left thalamus: Code(s): I63.81 - Other cerebral infarction due to occlusion or stenosis of small artery Status: Acute (2) Hypertensive urgency: Code(s): I16.0 - Hypertensive urgency Status: Acute (3) Right hemiplegia: Code(s): G81.91 - Hemiplegia, unspecified affecting right dominant side Status: Acute (4) Oropharyngeal dysphagia: Code(s): R13.12 - Dysphagia, oropharyngeal phase Status: Acute (5) Nonadherence to medication: Code(s): Z91.148 - Patient's other noncompliance with medication regimen for other reason Status: Acute (6) Intracranial atherosclerosis: Code(s): I67.2 - Cerebral atherosclerosis Status: Acute (7) Hyperlipidemia: Code(s): E78.5 - Hyperlipidemia, unspecified Status: Acute Plan 67-year-old male with history of hypertensive urgency and intracranial atherosclerosis, recent medication nonadherence over the past year or so presenting now with right hemiplegia, ataxia, dysarthria and oropharyngeal dysphagia postacute left thalamic stroke. -Appropriate for inpatient rehab facility when cleared by primary, his blood pressures remain significantly elevated 216/103 after meds this morning. -Likely stable to transfer tomorrow if SBP <190 and can be transitioned to oral BP regimen. -Will follow. Patient is medically stable and appropriate for admission to the acute inpatientrehabilitation unit, would benefit from and tolerate least 3 hours daily, at least 5 days/week, of physical and occupational therapy, with speech therapy andadditional therapy as needed to address functional impairment related to above documented medical conditions and facilitate community discharge home in a timely fashion. Patient has medical complexity that cannot be best managed at [facility] level of care and requires at least 3 times weekly encounters with chapter relations administrator for medical management and for plan of care review / changes. Plan: I completed a substantive portion of this encounter, the medical decision makingportion of this note in its entirety, including Allied health note review, nursing note review, quality compliance consultant note review, discussion with nursing and case management, and more than 50% of my time was spent on counseling and coordination of care, time spent 20 minutes Patient was personally seen by me, Dr. Sen, on the day of encounter, reviewed the history and the relevant portions of the chart, including current orders, allied health and quality compliance consultant notes, labs/imaging and performed garner elements of exam and I formulated the plan of care and facilitated the medical decision making. Documented By: Jose Martin Sen MD 11/01/22 103 Signed By: <Electronically signed by Jose Martin Sen MD> 11/01/22 1034 [facility] Work Phone: [phone]) 514-221409-05-2023 Consult note Author Joes Martin Sen [facility] October 31, 2022 2:43pm Note Date/Time October 31, 2022 11:39am [facility] [address] [place] [address] Physiatry (Rehab) Consult Note Signed Patient: Viraj Doherty MR#: [id number] : 1955 Acct:[id number] Age/Sex: 67 / M Adm Date: 3 Loc: Room: [address] [place] [address] Type: ADM IN Attending Dr: Davey Harding MD Copies to: MD Marilyn Woodward MD Joseph Riley, MD~ Etiologic Dx/Impairment Group Narrative Narrative: Left brain stroke, right hemiplegia HPI Consult Date: 10/31/22 Requesting Physician: Davey Harding MD Primary Care Provider: Marilyn Patrick MD Consult Narrative Reason for consult: post stroke needs HPI: Mr. Doherty is a 67 year old male presenting with acute hypertensive left thalamic stroke in the setting of medication nonadherence. Several days of dysarthria and slurred speech, which initially seemed to be self-limiting. Symptoms worsened, she presented to the emergency room for further evaluation. Blood pressure was elevated into the 220s. Imaging demonstrated acute left thalamic stroke and diffuse chronic microvascular changes. Chart review notes that patient has essentially stopped taking his medications over the past year or so and does not have a primary care physician. Neurology also at bedside. Explained the nature of stroke and plan for rehabilitation in the inpatient setting. Patient and voiced agreement for admission, when cleared by primary team. Review of Systems Review of Systems All other systems reviewed & are negative unless noted below or in HPI [facility] Medical History CVA (cerebral vascular accident) HTN (hypertension) Hx of TIA (transient ischemic attack) and stroke Social History Smoking Status: Never smoker Substance Use Type: Marijuana Meds Medications and Allergies Allergies No Known Allergies Allergy (Verified 10/30/22 19:24) Home Medications No known home meds 10/30/22 [History Confirmed 10/30/22] Exam Physical Exam Vital Signs: Temp Pulse Resp BP Pulse Ox O2 Del Method 98 F 71 16 197/90 H 97 Room Air 10/31/22 11:16 10/31/22 11:16 10/31/22 11:16 10/31/22 11:16 10/31/22 11:16 10/31/22 11:16 Narrative: Awake and alert, can follow commands. Non-labored breathing AO x 3. Right hemiplegia, grossly 4/5, ataxic Dysarthria Results Labs Labs: Laboratory Results - last 24 hr 10/30/22 10/30/22 10/30/22 19:12 19:12 19:12 Corrected WBC 9.5 Uncorrected WBC Count 9.5 RBC 5.54 Hgb 16.7 Hct 48.3 MCV 87.2 MCH 30.2 MCHC 34.7 RDW 14.1 Plt Count 192 MPV 8.8 Neut % (Auto) 58.1 Lymph % (Auto) 31.1 [place] % (Auto) 9.0 Eos % (Auto) 1.0 Baso % (Auto) 0.8 Nucleat RBC Rel Count 0.2 Neut # (Auto) 5.5 Lymph # (Auto) 3.0 [place] # (Auto) 0.9 H Eos # (Auto) 0.1 Baso # (Auto) 0.1 Monocyte Dist Width 18.82 PT 12.6 INR 1.1 APTT 29.4 PHA Creatinine Clear 71.14 Sodium 137 Potassium 3.3 L Chloride 104 Carbon Dioxide 24.7 Anion Gap 11.6 BUN 12 Creatinine 0.98 Est GFR (CKD-EPI) > 60.0 Glucose 107 H Calcium 9.1 Total Creatine Kinase Troponin I High Sens Urine Color Urine Appearance Urine pH Ur Specific [place] Urine Protein Urine Glucose (UA) Urine Ketones Urine Occult Blood Urine Nitrite Urine Bilirubin Urine Urobilinogen Ur Leukocyte Esterase Urine RBC Urine WBC Ur Squamous Epith Cells Urine Bacteria 10/30/22 10/30/22 10/31/22 19:12 22:30 04:12 Corrected WBC 10.2 Uncorrected WBC Count 10.2 RBC 5.31 Hgb 16.3 Hct 46.5 MCV 87.6 MCH 30.7 MCHC 35.0 RDW 14.2 Plt Count 192 MPV 8.7 Neut % (Auto) 64.0 Lymph % (Auto) 25.2 [place] % (Auto) 9.1 Eos % (Auto) 0.7 Baso % (Auto) 1.0 Nucleat RBC Rel Count 0.6 H Neut # (Auto) 6.5 Lymph # (Auto) 2.6 [place] # (Auto) 0.9 H Eos # (Auto) 0.1 Baso # (Auto) 0.1 Monocyte Dist Width PT INR APTT PHA Creatinine Clear Sodium Potassium Chloride Carbon Dioxide Anion Gap BUN Creatinine Est GFR (CKD-EPI) Glucose Calcium Total Creatine Kinase 133 Troponin I High Sens 12.1 Urine Color Yellow Urine Appearance Clear Urine pH 6.0 Ur Specific [place] > 1.050 H Urine Protein Trace H Urine Glucose (UA) Normal Urine Ketones Negative Urine Occult Blood 1+ H Urine Nitrite Negative Urine Bilirubin Negative Urine Urobilinogen Normal Ur Leukocyte Esterase Negative Urine RBC 3-4 Urine WBC 0-1 Ur Squamous Epith Cells Rare Urine Bacteria None seen 10/31/22 04:12 Corrected WBC Uncorrected WBC Count RBC Hgb Hct MCV MCH MCHC RDW Plt Count MPV Neut % (Auto) Lymph % (Auto) [place] % (Auto) Eos % (Auto) Baso % (Auto) Nucleat RBC Rel Count Neut # (Auto) Lymph # (Auto) [place] # (Auto) Eos # (Auto) Baso # (Auto) Monocyte Dist Width PT INR APTT PHA Creatinine Clear 84.38 Sodium 138 Potassium 3.2 L Chloride 105 Carbon Dioxide 23.8 Anion Gap 12.4 BUN 12 Creatinine 0.88 Est GFR (CKD-EPI) > 60.0 Glucose 110 H Calcium 9.3 Total Creatine Kinase Troponin I High Sens Urine Color Urine Appearance Urine pH Ur Specific [place] Urine Protein Urine Glucose (UA) Urine Ketones Urine Occult Blood Urine Nitrite Urine Bilirubin Urine Urobilinogen Ur Leukocyte Esterase Urine RBC Urine WBC Ur Squamous Epith Cells Urine Bacteria Assessment/Plan (1) Cerebrovascular accident (CVA) of left thalamus: Code(s): I63.81 - Other cerebral infarction due to occlusion or stenosis of small artery Status: Acute (2) Hypertensive urgency: Code(s): I16.0 - Hypertensive urgency Status: Acute (3) Right hemiplegia: Code(s): G81.91 - Hemiplegia, unspecified affecting right dominant side Status: Acute (4) Oropharyngeal dysphagia: Code(s): R13.12 - Dysphagia, oropharyngeal phase Status: Acute (5) Nonadherence to medication: Code(s): Z91.148 - Patient's other noncompliance with medication regimen for other reason Status: Acute (6) Intracranial atherosclerosis: Code(s): I67.2 - Cerebral atherosclerosis Status: Acute (7) Hyperlipidemia: Code(s): E78.5 - Hyperlipidemia, unspecified Status: Acute Plan 67-year-old male with history of hypertensive urgency and intracranial atherosclerosis, recent medication nonadherence over the past year or so presenting now with right hemiplegia, ataxia, dysarthria and oropharyngeal dysphagia postacute left thalamic stroke. -Appropriate for inpatient rehab facility when cleared by primary, his blood pressures are in the 190s to 200s systolic. -Discussed with Neurology -Patient and agreeable to plan of care. -Continue secondary stroke prevention. Patient is medically stable and appropriate for admission to the acute inpatientrehabilitation unit, would benefit from and tolerate least 3 hours daily, at least 5 days/week, of physical and occupational therapy, with speech therapy andadditional therapy as needed to address functional impairment related to above documented medical conditions and facilitate community discharge home in a timely fashion. Patient has medical complexity that cannot be best managed at [facility] level of care and requires at least 3 times weekly encounters with chapter relations administrator for medical management and for plan of care review / changes. Plan: I completed a substantive portion of this encounter, the medical decision makingportion of this note in its entirety, including Allied health note review, nursing note review, quality compliance consultant note review, discussion with nursing and case management, and more than 50% of my time was spent on counseling and coordination of care, time spent 65 minutes Patient was personally seen by me, Dr. Sen, on the day of encounter, reviewed the history and the relevant portions of the chart, including current orders, allied health and quality compliance consultant notes, labs/imaging and performed garner elements of exam and I formulated the plan of care and facilitated the medical decision making. Documented By: Jose Martin Sen MD 10/31/22 1139 Signed By: <Electronically signed by Jose Martin Sen MD> 10/31/22 1443 [facility] Work Phone: [phone]) 316-899209-05-2023 Consult note Author Jose David Aponte [facility] October 31, 2022 12:34pm Note Date/Time October 31, 2022 11:23am [facility] [address] [place] [address] Neurology Consult Note Signed Patient: Viraj Doherty MR#: [id number] : 1955 Acct:[id number] Age/Sex: 67 / M Adm Date: 3 Loc: Room: [address] [place] [address] Type: ADM IN Attending Dr: Davey Harding MD Copies to: DO Davey Abbott MD Douglas M Hoy, MD~ HPI Consult Date: 10/31/22 Base Filler Operator: Jose David Aponte DO [facility] Medical History (Updated 10/30/22 @ 21:57 by John Garcia DO) CVA (cerebral vascular accident) HTN (hypertension) Hx of TIA (transient ischemic attack) and stroke Social History Smoking Status: Never smoker Substance Use Type: Marijuana Meds Medications and Allergies Allergies No Known Allergies Allergy (Verified 10/30/22 19:24) Home Medications No known home meds 10/30/22 [History Confirmed 10/30/22] Exam Physical Exam Vital Signs: Temp Pulse Resp BP Pulse Ox O2 Del Method 98.0 F 75 16 190/94 H 98 Room Air 10/31/22 08:56 10/31/22 10:05 10/31/22 08:56 10/31/22 10:56 10/31/22 08:56 10/31/22 09:30 Results Laboratory Findings 10/31/22 04:12 10/31/22 04:12 Diagnostic Findings Imaging/Impressions: ITS Impressions Chest X-Ray 10/30/22 19:16 IMPRESSION: No acute process. Impression dictated by: Delio Tran M.D.10/31/2022 7:33 AM Dictation Location: [facility] 10/30/22 19:16 IMPRESSION: No acute intracranial findings. Bilateral remote basal ganglia lacunar type infarctions. May consider follow-up assessment with MRI. Diffuse atrophy and chronic small vessel ischemic changes. Monica preliminary report completed 10/30/2022 at 7:34 PM Impression dictated by: Delio Tran M.D.10/31/2022 7:35 AM Dictation Location: [facility] Head CTA 10/30/22 19:17 IMPRESSION: 1 cm segment of critical stenosis involving the left MCA M1 segment distally with compromised flow along the left frontal lobe. Teres. Occlusion of the distal M2 segment left frontal lobe. No intracranial aneurysm or AVM. Mild calcified plaquing of the carotid bifurcations without significant stenosis. Patent vertebral arteries. Impression dictated by: Delio Tran M.D.10/31/2022 7:42 AM Dictation Location: [facility] Therapy Recommendations Therapy Recommendations: PT Recommendations PT Recommended Discharge Inpatient Rehab Unit Location PT Recommended Services at Physical Therapy,Occupational Therapy,Speech Discharge Therapy ST Recommendations Level of Supervision 1:1 Feeding Supervision Liquid Consistency Thin Liquids Recommendation Solid Consistency Dental Soft Solids Recommendations Meat Consistency Chopped Meats Recommendations Medication Administration Give Pills in Applesauce Dysphagia Swallow Precautions/ Sitting Upright (90 deg),Small Bites/Sips,Pacing Strategies /Slow-Rate ST Recommended Services at 24/7 Supervision Discharge Assessment/Plan (1) Acute CVA (cerebrovascular accident): Code(s): I63.9 - Cerebral infarction, unspecified Status: Acute Plan CONSULT REASON: CVA HPI: 67-year-old man with history of hypertension not taking medication and with history of a lacunar infarction presents for evaluation of slurred speech and hewas dragging his right leg and his right limbs seem weak and incoordinated. Hiswife said he was admitted to [facility] about 2 years ago with severe hypertension and a small chronic lacunar infarction and was discharged on medications regarding the stroke and his blood pressure but he stopped them shortly after discharge. In the past few days he seemed to have multiple episodes of slurred speech that then resolved on its own, up until yesterday when it started and did not go away. Blood pressure here was greater than 220/110. EXAMINATION: In no distress. No deformities or trauma. Limbs seem well-perfused. No significant edema. Normal work of breathing. Visualized skin is generally intact and without lesions. Affect flat. Patient is alert. Follows commands without difficulty. Attention normal. Moderate dysarthria, nearly unintelligible. Pupils are equal. Ocular motility is full. No nystagmus. Facial sensation is normal. Hearing is normal. Facial strength appears okay. Tongue is midline. Mild right upper extremity weakness best characterized as slight limb drift. Subtle right lower extremity weakness when compared to the left. No significant focal muscle group weakness. No tremors. Light touch is normal. Vibratory sensation is normal in all distal extremities. Right upper extremity moderate ataxia. Right lower extremity mild ataxia. DATA REVIEW: -CT head without acute findings, showed bilateral remote basal ganglia lacunar infarctions, diffuse atrophy, small vessel ischemic changes -CTA head and neck shows a 1 cm segment of critical stenosis in the left MCA M1 segment distally and occlusion of the distal M2 segment -Total cholesterol 244, LDL 179 -A1c pending ASSESSMENT: 1. Acute ischemic stroke causing moderate dysarthria, mild right hemiparesis (arm greater than leg), and moderate right hemiataxia (arm greater than leg). MRI brain personally reviewed and shows diffusion restriction representing acuteischemia in the left lateral thalamus. 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 Etiology is small vessel disease caused bysevere hypertension. Also with significant hyperlipidemia. A1c pending. 2. Intracranial atherosclerosis. Most concerning lesion by far is short segment narrowing of the left MCA M1 segment and there appears to be a downstream occlusion of the distal M2 segment. No acute ischemia in its territory. 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 PLAN: 1. Aggressive medical management. Continue on the aspirin 81 mg daily and clopidogrel 75 mg daily that were started here, for at least 21 days and possibly indefinitely given the concerning left MCA findings 2. Continue on the atorvastatin 80 mg daily that was started here 3. A1c pending 4. Immediate goal for systolic blood pressure is 160-200. Within the next couple days he should consistently be 140-180 systolic. Eventual goal will be consistently less than 140 systolic. 5. Ongoing speech therapy and physical therapy and Occupational Therapy 6. Would be a good candidate for acute inpatient rehabilitation and if he qualifies then okay for discharge to there whenever from my standpoint Documented By: Jose David Aponte DO 10/31/22 1118 Signed By: <Electronically signed by Jose David Aponte DO> 10/31/22 6604 [facility] Work Phone: 1([phone] 141-800909-05-2023 Progress note Author Davey Harding [facility] October 31, 2022 12:34pm Note Date/Time October 31, 2022 11:45am [facility] [address] [place] [address] Hospitalist Progress Note Signed Patient: Viraj Doherty MR#: [id number] : 1955 Acct:[id number] Age/Sex: 67 / M Adm Date: 3 Loc: Room: [address] [place] [address] Type: ADM IN Attending Dr: Davey Harding MD Copies to: ~ Date of Service: 10/31/2022 Subjective Subjective Narrative: Attending note: I saw the patient personally on the day of encounter. I reviewed the relevant history, and performed the garner elements of the physical examination. I reviewedthe relevant laboratory workup, radiological studies and the current treatment plan. 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 Patient resting in chair. Does not quite understand the severity of his illness, states he stopped taking all his medications years ago and does not follow with a PCP. He states he still for issues with his right upper and right lower extremity, some difficulty speaking as well. Exam Physical Exam Vital Signs: Temp Pulse Resp BP Pulse Ox O2 Del Method 98 F 71 16 197/90 H 97 Room Air 10/31/22 11:16 10/31/22 11:16 10/31/22 11:16 10/31/22 11:16 10/31/22 11:16 10/31/22 11:16 Narrative: CONSTITUTIONAL: Alert, oriented HEAD: Normocephalic, atraumatic EYES: EOMI, subconjunctival hemorrhage noted in right eye with associated discharge RESPIRATORY: No distress, lungs clear bilaterally, symmetric chest rise, no wheezes/rales/rhonchi CARDIOVASCULAR: Regular rate and regular rhythm, no murmurs ABDOMEN: Soft, non-tender, non-distended, normal bowel sounds BACK: No midline or paraspinal tenderness SKIN: Intact, no rash, no trauma NEURO: Decreased strength in right upper extremity compared to left with sensation intact, lower extremities equal strength bilaterally. Does have some extremely mild droop of right side of face when squeezing eyes and raising eyebrows PSYCHIATRIC: Normal affect Objective Lab Results 10/31/22 04:12 10/31/22 04:12 Meds Allergies and Active Meds Allergies No Known Allergies Allergy (Verified 10/30/22 19:24) Active Meds: Active Medications Generic Name Dose Route Start Last Admin Trade Name Freq PRN Reason Stop Dose Admin Acetaminophen 1,000 mg 10/30/22 21:18 Acetaminophen 500 Mg Tablet PO 10/30/23 21:17 Q6H PRN Fever > 100.4 F Aspirin 81 mg 10/31/22 09:00 10/31/22 09:57 Aspirin 81 Mg Tablet. PO 10/31/23 08:59 81 mg DAILY LEVON Administration Atorvastatin Calcium 80 mg 10/31/22 21:00 Atorvastatin 80 Mg Tablet PO 10/31/23 20:59 QPM LEVON Clopidogrel Bisulfate 75 mg 10/31/22 09:00 10/31/22 09:57 Clopidogrel Bisulfate 75 Mg Tablet PO 10/31/23 08:59 75 mg DAILY LEVON Administration Hydralazine HCl 10 mg 10/31/22 09:58 Hydralazine 20 Mg/Ml Vial IV-PUSH 10/30/23 22:06 Q4H PRN Hypertension Labetalol HCl 10 mg 10/31/22 09:59 10/31/22 10:05 Labetalol 100 Mg/20 Ml Vial IV-PUSH 10/30/23 21:29 10 mg Q4H PRN Administration Hypertension Sodium Chloride 0 ml 10/30/22 19:09 10/31/22 10:06 Sodium Chloride 0.9 % 10 Ml Syringe IV-PUSH 10/30/23 19:08 10 ml PRN PRN Administration Flush Valsartan 80 mg 10/31/22 10:00 10/31/22 10:04 Valsartan 80 Mg Tablet PO 10/31/23 09:59 80 mg DAILY LEVON Administration A&P - Hospitalist Assessment/Plan (1) Acute CVA (cerebrovascular accident): (2) Hypertensive urgency: Plan # Acute ischemic stroke, slurred speech - slurred speech likely due to CVA with hx of CVA in the past and non-compliant with meds - CTA head/neck with MCA M1 and M2 occlusions which were discussed with neurology in [place]. Will continue asa/plavix/statin - MRI ordered, echo pending. Preliminary review indicates a left thalamic infarct. - neurology consulted - neurochecks - Added on lipid, A1c, TSH # HTN urgency - hx of HTN - stopped taking meds. Non-compliant - BP > 220/110 on arrival - permissive HTN with prn labetalol for SBP>180, added valsartan # Subconjunctival hemorrhage, R eye discharge - Will add saline drops Documented By: Davey Harding MD 10/31/22 1141 Signed By: <Electronically signed by Davey Harding MD> 10/31/22 1234 <Electronically signed by DO FLOYD Bear> 10/31/22 1145 [facility] Work Phone: [phone]) [phone] History and physical note Author John Garcia [facility] October 30, 2022 10:00pm Note Date/Time October 30, 2022 10:00pm [facility] [address] [place] [address] Hospitalist H&P Signed Patient: Viraj Doherty MR#: [id number] : 1955 Acct:[id number] Age/Sex: 67 / M Adm Date: 3 Loc: 4P Room: [address] [place] [address] Type: ADM IN Attending Dr: John Garcia DO Copies to: MD John Millan DO~ HPI DATE OF EXAMINATION: 10/30/22 CHIEF COMPLAINT: slurred speech HISTORY OF PRESENT ILLNESS: 67 y/o M with PMHx of HTN, hx of CVA who presents with complaint of slurred speech which started last night. Pt's states that he was admitted in [place] about 2 years ago with uncontrolled HTN and CVA and was in the ICU on a drip for his BP. States he was discharged with medications for BP and his CVA but states that he didn't like how the meds made him feel and he stopped taking them shortly after discharge. States since then, he has had multiple self resolving episodes of slurred speech or where he is unable to get words out, butstates these usually resolve on their own so when it happened last night, they thought it would go away, but his symptoms remained today so they came to the EDwhere he was found to have a BP >220/110. CT head was negative. CTA head/neck with two MCA occlusions in the M1 and M2 segments. This was discussed with Elsa who did not recommend TNK as pt outside the window and recommended admission for MRI and neurology evaluation and recommended DAPT and statin. Pt was given two doses of labetalol and admitted to progressive care for continued CVA workup. Review of Systems Review of Systems All other systems reviewed & are negative unless noted below or in HPI [facility] Medical History (Updated 10/30/22 @ 21:57 by John Garcia DO) CVA (cerebral vascular accident) HTN (hypertension) Hx of TIA (transient ischemic attack) and stroke Social History Smoking Status: Current some day smoker Substance Use Type: Marijuana Meds Medications and Allergies Allergies No Known Allergies Allergy (Verified 10/30/22 19:24) Home Medications No known home meds 10/30/22 [History Confirmed 10/30/22] Exam Physical Exam Vital Signs: Temp Pulse Resp BP Pulse Ox O2 Del Method 98.6 F 76 19 220/148 H 95 Room Air 10/30/22 19:10 10/30/22 21:11 10/30/22 21:04 10/30/22 21:11 10/30/22 21:04 10/30/22 21:04 Narrative: General: Awake and alert. Lying in bed comfortably, mild dysarthria noted HEENT: Normocephalic, atraumatic, trachea midline Respiratory: good inspiratory effort, clear to auscultation, no wheeze, no rhonchi, no crackles Cardiovascular: RRR, normal S1 and S2 Abdominal: soft, non-distended, no tenderness, no rebound, no guarding, +BS Skin: warm, dry, no lesions or rashes MSK: no edema Neurologic: No focal deficits other than dysarthria Psych: appropriate affect Results Lab Results Labs: Laboratory Last Values Corrected WBC 9.5 X10E3/uL (4.1-10.5) 10/30/22 19:12 Uncorrected WBC Count 9.5 x10E3/uL (4.1-10.5) 10/30/22 19:12 RBC 5.54 X10E6/uL (3.90-5.60) 10/30/22 19:12 Hgb 16.7 g/dL (13.0-17.0) 10/30/22 19:12 Hct 48.3 % (38.8-50.0) 10/30/22 19:12 MCV 87.2 fl (83.5-101) 10/30/22 19:12 MCH 30.2 pg (27.5-35.2) 10/30/22 19:12 MCHC 34.7 g/dL (32.5-35.6) 10/30/22 19:12 RDW 14.1 % (12.0-14.8) 10/30/22 19:12 Plt Count 192 x10E3/uL (150-450) 10/30/22 19:12 MPV 8.8 fl (6.6-10.1) 10/30/22 19:12 Neut % (Auto) 58.1 % (.) 10/30/22 19:12 Lymph % (Auto) 31.1 % (.) 10/30/22 19:12 [place] % (Auto) 9.0 % (.) 10/30/22 19:12 Eos % (Auto) 1.0 % (.) 10/30/22 19:12 Baso % (Auto) 0.8 % (.) 10/30/22 19:12 Nucleat RBC Rel Count 0.2 /100 WBC (0-0.5) 10/30/22 19:12 Neut # (Auto) 5.5 x10E3/uL (1.8-7.7) 10/30/22 19:12 Lymph # (Auto) 3.0 x10E3/uL (1.00-4.8) 10/30/22 19:12 [place] # (Auto) 0.9 x10E3/uL (0.0-0.8) H 10/30/22 19:12 Eos # (Auto) 0.1 x10E3/uL (0.0-0.45) 10/30/22 19:12 Baso # (Auto) 0.1 x10E3/uL (0.0-0.2) 10/30/22 19:12 Monocyte Dist Width 18.82 % (0.00-20.00) 10/30/22 19:12 PT 12.6 Seconds (9.0-12.9) 10/30/22 19:12 INR 1.1 10/30/22 19:12 APTT 29.4 Seconds (25.1-36.5) 10/30/22 19:12 PHA Creatinine Clear 71.14 10/30/22 19:12 Sodium 137 mmol/L (136-145) 10/30/22 19:12 Potassium 3.3 mmol/L (3.5-5.1) L 10/30/22 19:12 Chloride 104 mmol/L (98-107) 10/30/22 19:12 Carbon Dioxide 24.7 mmol/L (21.0-31.0) 10/30/22 19:12 Anion Gap 11.6 mEq/L (6.0-15.0) 10/30/22 19:12 BUN 12 mg/dL (7-25) 10/30/22 19:12 Creatinine 0.98 mg/dL (0.70-1.30) 10/30/22 19:12 Est GFR (CKD-EPI) > 60.0 mL/Min 10/30/22 19:12 Glucose 107 mg/dL (70-100) H 10/30/22 19:12 Calcium 9.1 mg/dL (8.6-10.3) 10/30/22 19:12 Total Creatine Kinase 133 U/L (30-223) 10/30/22 19:12 Troponin I High Sens 12.1 pg/mL (0.0-20.0) 10/30/22 19:12 Assessment & Plan Assessment/Plan (1) Acute CVA (cerebrovascular accident): (2) Hypertensive urgency: Plan # Slurred speech - likely due to CVA with hx of CVA in the past and non-compliant with meds - CT head with old infarcts. No acute process - CTA head/neck with MCA M1 and M2 occlusions which were discussed with neurology in [place]. Will continue asa/plavix/statin - MRI ordered - neurology consulted - neurochecks # HTN urgency - hx of HTN - stopped taking meds. Non-compliant - BP> 220/110 on arrival - permissive HTN with prn labetalol for SBP>180 - will need new hypertensive regimen prior to discharge Disposition: Pt with slurred speech admitted for CVA workup. DAPT, statin, prn labetalol. Neurology consulted. Monitor closely on progressive care. IP vs OBS Justification Based on differential dx, clinical care plan, and risk of adverse events, if untreated, in my clinical judgement this patient requires an acute care setting as: INPATIENT because of an expectation of an over 2 midnight stay. Estimated length of stay (# of days): 4 Time Spent With Patient (min): 45 Documented By: John Garcia DO 10/30/22 215 2 Signed By: <Electronically signed by John Garcia DO> 10/30/22 2[address] [facility] Work Phone: [phone] 920-967907-12-2023 Evaluation + Plan note Diagnostic Tests Pending * Quantiferon-TB Plus (Client Incubated) 09/06/22 [facility]07-13-2022 Evaluation + Plan note Diagnostic Tests Pending * Quantiferon-TB Plus (Client Incubated) 09[facility]07/21 [facility] Author Davey Harding [facility] November 02, 2022 1:45pm Note Date/Time November 02, 2022 1:45pm [facility] [address] [place] [address] Discharge Summary Signed Patient: Viraj Doherty MR#: [id number] : 1955 Acct:[id number] Age/Sex: 67 / M Adm Date: 3 Loc: Room: [address] [place] [address]: Davey Harding MD Copies to: MD Marilyn Woodward MD~ Providers Date of Discharge: 11/02/22 Discharging Provider: Davey Harding Primary Care Provider: Marilyn Patrick Consults: 10/30/22 21:18 Consult to Neurology Routine Consult to Occupational Therapy Routine Consult to Physical Therapy Routine 10/31/22 09:01 Consult to Speech Therapy Routine 10/31/22 09:16 Consult to Dietitian Routine 10/31/22 10:46 Consult to Physiatry Routine Discharge Diagnosis Final Diagnosis Final Discharge Diagnosis: Acute ischemic thalamic stroke, with right-sided hemiparesis and dysarthria Hypertensive urgency in the setting of the above Dyslipidemia Prediabetes Summary Hospital Course Hospital course: Patient is a 67-year-old male, who presented to emergency department on October 30, complaining of slurred speech and right-sided weakness. He does not take medications, and is not seeing a family doctor. Stroke alert was called. Patient was found to be hypertensive, CTA head neck indicated MCA occlusions in the M1 and M2 segments. [place] [facility] recommended conservative management with dual antiplatelets and other therapies. Patient was admitted to the hospital. An MRI showed presence of an acute thalamic stroke. Patient was given aspirin and clopidogrel, statin, and blood pressure was controlled. No notable complications occurred. He improved symptomatically, and on November 02 he was discharged in stable condition to theinpatient rehab. We discussed at length the importance of times of compliance with medical therapy to prevent future strokes. Time Spent with Patient Time spent providing/coordinating discharge services (# min): 40 Diagnostic Studies Completed and Pending Studies Pending studies at discharge: 11/03/22 05:00 Basic Metabolic Panel [CHEM] IN AM Complete Blood Count Auto Diff IN AM 11/04/22 05:00 Basic Metabolic Panel [CHEM] IN AM Complete Blood Count Auto Diff IN AM 11/05/22 05:00 Basic Metabolic Panel [CHEM] IN AM Complete Blood Count Auto Diff IN AM 11/06/22 05:00 Basic Metabolic Panel [CHEM] IN AM Complete Blood Count Auto Diff IN AM 11/07/22 05:00 Basic Metabolic Panel [CHEM] IN AM Complete Blood Count Auto Diff IN AM 11/08/22 05:00 Basic Metabolic Panel [CHEM] IN AM Complete Blood Count Auto Diff IN AM 11/09/22 05:00 Basic Metabolic Panel [CHEM] IN AM Complete Blood Count Auto Diff IN AM Labs on day of discharge: 11/02/22 04:13: PHA Creatinine Clear 67.50, Sodium 138, Potassium 3.2 L, Chloride 103, Carbon Dioxide 24.9, Anion Gap 13.3, BUN 20, Creatinine 1.10, Est GFR (CKD- EPI) > 60.0, Glucose 114 H, Calcium 9.5 11/02/22 04:13: Corrected WBC 14.3 H, Uncorrected WBC Count 14.3 H, RBC 5.47, Hgb 16.8, Hct 47.6, MCV 86.9, MCH 30.8, MCHC 35.4, RDW 14.5, Plt Count 203, MPV 8.7, Neut % (Auto) 71.4, Lymph % (Auto) 18.5, [place] % (Auto) 9.2, Eos % (Auto) 0.1, Baso % (Auto) 0.8, Nucleat RBC Rel Count 0.2, Neut # (Auto) 10.2 H, Lymph # (Auto) 2.6, [place] # (Auto) 1.3 H, Eos # (Auto) 0.0, Baso # (Auto) 0.1 Exam Physical Exam Vital Signs: Temp Pulse Resp BP Pulse Ox O2 Del Method 98.4 F 83 16 142/72 H 97 Room Air 11/02/22 12:29 11/02/22 12:29 11/02/22 12:29 11/02/22 12:29 11/02/22 12:29 11/02/22 12:29 Discharge Plan Discharge Plan Patient Disposition: Rehab [facility] Activity: No Activity Restriction Diet: Diabetic and Low-Sodium Additional Instructions: [facility] will call you with a follow up with a neurovascular doctor. You are schedule with [facility] on November 30 at 3:30pm at [facility] room [address] Mike. Rehab to manage: - PT/OT/ST to eval and treat - Please follow previous Speech therapy recommendations - Monitor VS routine - Dx. HTN - Neuro assessments - Dx. CVA - Routine skin assessments/care -- Every 3 days - Mepilex border foam to coccyx for added protection. Prescriptions: New atorvastatin 80 mg Tablet 80 mg PO QPM Qty: 0 0RF clopidogrel 75 mg Tablet 75 mg PO DAILY Qty: 0 0RF aspirin 81 mg Tablet,Delayed Release (Dr/Ec) 81 mg PO DAILY Qty: 0 0RF jwyphbnozj-ptdodenod-lzhhyilps 10-320-25 mg tablet 1 tab PO DAILY Qty: 30 0RF potassium chloride 10 mEq capsule, extended release 10 meq PO DAILY Qty: 30 0RF Follow Up: [facility] [Outside] (Please call to schedule a follow up appointment with Neurology upon discharge from Rehab.) Marilyn Patrick MD [Primary Care Provider] - (Please call to schedule a follow up appointment with PCP upon discharge from Rehab.) Documented By: Davey Harding MD 11/02/22 134 Signed By: <Electronically signed by Davey Harding MD> 11/02/22 1345 [facility] Work Phone: Discharge summary Author Jose Martin Sen [facility] November 15, 2022 6:11pm Note Date/Time November 15, 2022 12:04pm [facility] [address] [place] [address] Discharge Summary Signed Patient: Viraj Doherty MR#: [id number] : 1955 Acct:[id number] Age/Sex: 67 / M Adm Date: 3 Loc: Room: [address] [place] [address]: Jose Martin Sen MD Copies to: MD Janice Millan, JASMIN Sen MD~ Providers Date of Discharge: 11/15/22 Discharging Provider: Janice Altamirano Primary Care Provider: Marilyn Patrick Consults: 11/02/22 15:00 Consult to Adult Hospitalist Routine Consult to Dietitian Routine Consult to Occupational Therapy Routine Consult to Physical Therapy Routine Speech Admit Screen Routine 11/02/22 15:03 Consult to Speech Therapy Routine Discharge Diagnosis (1) Cerebrovascular accident (CVA) of left thalamus: (2) Right hemiplegia: (3) Oropharyngeal dysphagia: (4) Hypertensive urgency: (5) Nonadherence to medication: (6) Intracranial atherosclerosis: (7) Hyperlipidemia: (8) Tobacco abuse disorder: Final Diagnosis Final Discharge Diagnosis: As above Summary Hospital Course Hospital course: Mr. Doherty is a 67 year old male with a history of hypertension, previous CVA, psoriasis who initially presented to our emergency department on 9/4/23 for difficulty finding words and slurred speech as well as right-sided weakness which started the night prior to arrival. CT in the emergency department showedno acute intracranial abnormality with old bilateral lacunar infarcts, however CTA of the brain showed 1 cm segment of critical stenosis involving the left MCAM1 segment which is causing compromise flow along with occlusion of the distal M2 segment of the left frontal lobe. Case was discussed between ER physician and [facility] intervention[facility]ology who requested the patient stay in the hospital for further CVA work- up. While in the hospital, MRI was performed and showed evidence of late subacute infarct involving the left thalamus. His bloodpressure was also found to be elevated during this stay with systolics in the 220s initially. Patient had reportedly stopped taking his antihypertensive medications at home. Patient was seen by neurology while in the hospital who recommended continued dual antiplatelet therapy with aspirin 81 mg and clopidogrel 75 mg as well as continuing 80 mg of Lipitor and consistent blood pressure control. Patient was seen in consult by Dr. Sen while in the hospital who agreed with admission to the inpatient rehab unit. His rehab course with rather unremarkable. He did have a single episode of altered mental status and drowsiness which was thought to be due to sleep agents. Symptoms have resolved with discontinuation of the therapy. He made appropriate functional gains in therapy will be during his stay. He contact-guard assist. Able to ascend/descend 14 stairs with contact-guard assist. Able to transfer with CGA/SBA. Patient will be discharged home with outpatient physical occupational therapy. Patient was prescribed a front wheeled walker, as they have a mobility limitation that impairs their ability to complete one or more MRADL?s in the home, related to recent CVA and continued right-sided weakness. They can safelyuse walker, and their mobility deficit can be resolved with the use of the walker. Time Spent with Patient Time spent providing/coordinating discharge services (# min): 35 Specific discharge activities: Total time spent discharging this patient > 30 minutes Greater than 30 minutes spent preparing the patient for discharge including the following: Discussion of the hospital stay with patient and/or family Instructions for continuing care to all relevant caregivers Reviewing discharge plan with medical staff, social work, care management, and nursing staff Supervision of discharge paperwork, medication reconciliation, prescriptions, and outpatient appointments Prescribed necessary DME at discharge when indicated Diagnostic Studies Completed and Pending Studies Labs on day of discharge: 11/15/22 04:58: PHA Creatinine Clear 59.85, Sodium 136, Potassium 3.5, Chloride 105, Carbon Dioxide 28.0, Anion Gap 6.5, BUN 29 H, Creatinine 1.15, Est GFR (CKD-EPI) > 60.0, Glucose 101 H, Calcium 9.3 Exam Physical Exam Vital Signs: Temp Pulse Resp BP Pulse Ox O2 Del Method 97.7 F 67 18 129/73 97 Room Air 11/15/22 05:00 11/15/22 05:00 11/15/22 05:00 11/15/22 08:21 11/15/22 05:00 11/15/22 11:13 Narrative: General: Awake, alert, oriented x3 HENT: Normal to inspection, normocephalic, atraumatic Eyes: PERRL, normal conjunctiva and sclera Neck: Normal ROM, normal visual inspection. Trachea midline. Cardio: Regular heart rate then rhythm Respiratory: Clear to auscultation bilaterally. Normal respiratory effort. No respiratory distress. GI: Abdomen soft, nontender, nondistended, active bowel sounds x4 quadrants Neuro: CN II-XII intact. Mild right-sided weakness in upper and lower extremity. Ataxic. No facial droop. Mild to moderate aphasia and dysarthria. Extremities: No edema, erythema, cyanosis Psych: Mood and affect appropriate. Dysarthric speech. Discharge Plan Discharge Plan Patient Disposition: Home Activity: Ambulate as Tolerated and May Shower Diet: Diabetic, Low-Fat and Low-Sodium Additional Instructions: -Code Status: Full Code -Activity: Ambulate as tolerated with walker, Weightbearing as tolerated. No driving until cleared by Neurology, may ride in car. -Diet: Diabetic, 2000 calories a day, heart healthy (limit to 2 grams of sodium/day). Chopped meats, thin liquids. -Eating strategies: Sit upright at 90 degrees with oral intake, intermittent supervision with meals. You will have Outpatient Physical, Occupational, and Speech Therapy at [facility] (Address: [address] [place], [place] [address] ). The order for this has alreadybeen sent to them, and they will contact you/your directly to schedule evaluation date(s)/times. If you do not hear from them by afternoon, please contact them directly at the phone number listed above. You have been given prescriptions for new and/or needed medications. These prescriptions are for a one-time fill only, with no re-fills. For further re- fills going forward, you will need to address with your PCP at your follow up appointment, or by calling your PCP?s office prior to the prescriptions running out. NOTE: please call within 24 hours if you need to cancel or change any follow up appointments. Arrive early to all follow up appointments, bring current medication list, photo ID and any insurance card(s) to all future follow ups (listed below). Please remember to wear a mask to all appointments. If you develop any symptoms (cough, fever/chills, shortness of breath, sore throat, nausea/vomiting, etc.) please contact your provider's office to inform them prior to your appointment. Instructions: Heart Healthy Diet, Stroke (DC) Prescriptions: New hydralazine 25 mg Tablet 25 mg PO BID 30 Days Qty: 60 0RF potassium chloride [Klor-Con 10] 10 mEq Tablet Extended Release 20 meq PO DAILY 30 Days Qty: 60 0RF Humira 40 mg subcut Q14D Qty: 0 0RF Continued ngjvqoisce-xwrbczbir-sdnreupmd 10-320-25 mg tablet 1 tab PO DAILY 30 Days Qty: 30 0RF atorvastatin 80 mg Tablet 80 mg PO QPM Qty: 0 0RF clopidogrel 75 mg Tablet 75 mg PO DAILY Qty: 0 0RF aspirin 81 mg Tablet,Delayed Release (Dr/Ec) 81 mg PO DAILY Qty: 0 0RF Discontinued potassium chloride 10 mEq capsule, extended release 10 meq PO DAILY Qty: 30 0RF Other Ambulatory Orders: DME Home Medical Equipment (Routine) Timeframe: 20221110 Location: Determined by Patient Ordered By: Jose Martin Sen Follow Up: Dr. Mike [Other] - 11/30/22 3:30 pm [facility] [Outside] - 12/26/22 9:00 am (-Neurology.) Marilyn Patrick MD [Primary Care Provider] - 11/20/22 4:15 pm (-PCP. Take insurance card with you.) Jose Martin Sen MD [Active Staff] - (-Rehab Physician. Follow up if/as needed.) Documented By: Janice Altamirano APRN 11/15/22 1 157 Signed By: <Electronically signed by JASMIN Altamirano> 11/15/22 1204 <Electronically signed by Jose Martin Sen MD> 11/15/22 1811 [facility] Work Phone: evaluation note* Diagnosis Onset Date Resolution Status Acute CVA (cerebrovascular accident) acute Hypertensive urgency acute [facility] Work Phone: evaluation note* Diagnosis Onset Date Resolution Status Acute CVA (cerebrovascular accident) acute Cerebrovascular accident (CVA) of left thalamus acute Hyperlipidemia acute Hypertensive urgency acute Intracranial atherosclerosis acute Nonadherence to medication a cute Oropharyngeal dysphagia acut e Right hemiplegia acute [facility] Work Phone: evaluation note* Diagnosis Onset Date Resolution Status Acute CVA (cerebrovascular accident) acute Cerebrovascular accident (CVA) of left thalamus acute Hyperlipidemia acute Hypertensive urgency acute Intracranial atherosclerosis acute Nonadherence to medication a cute Oropharyngeal dysphagia acut e Right hemiplegia acute Cerebrovascular accident (CVA) of left thalamus acute Hyperlipidemia acute Hypertensive urgency acute Intracranial atherosclerosis acute Nonadherence to medication a cute Oropharyngeal dysphagia acut e Right hemiplegia acute Tobacco abuse disorder acute [facility] Work Phone: evaluation note* Diagnosis Onset Date Resolution Status Acute CVA (cerebrovascular accident) acute Cerebrovascular accident (CVA) of left thalamus acute Hyperlipidemia acute Hypertensive urgency acute Intracranial atherosclerosis acute Nonadherence to medication a cute Oropharyngeal dysphagia acut e Right hemiplegia acute Cerebrovascular accident (CVA) of left thalamus acute Hyperlipidemia acute Hypertensive urgency acute Intracranial atherosclerosis acute Nonadherence to medication a cute Oropharyngeal dysphagia acut e Right hemiplegia acute Tobacco abuse disorder acute Acute ischemic left MCA stroke acute Cerebrovascular accident (CVA) of left thalamus acute Dysarthria acute Hyperlipidemia acute Intracranial atherosclerosis acute Oropharyngeal dysphagia acut e Right hemiplegia acute Seizure acute [facility] Work Phone: evaluation note* Diagnosis Onset Date Resolution Status Acute CVA (cerebrovascular accident) acute Cerebrovascular accident (CVA) of left thalamus acute Hyperlipidemia acute Hypertensive urgency acute Intracranial atherosclerosis acute Nonadherence to medication a cute Oropharyngeal dysphagia acut e Right hemiplegia acute Cerebrovascular accident (CVA) of left thalamus acute Hyperlipidemia acute Hypertensive urgency acute Intracranial atherosclerosis acute Nonadherence to medication a cute Oropharyngeal dysphagia acut e Right hemiplegia acute Tobacco abuse disorder acute Acute ischemic left MCA stroke acute Cerebrovascular accident (CVA) of left thalamus acute Dysarthria acute Hyperlipidemia acute Intracranial atherosclerosis acute Oropharyngeal dysphagia acut e Right hemiplegia acute Seizure acute Acute ischemic left MCA stroke acute Dysarthria acute HTN (hypertension) acute Hyperlipidemia acute Impaired mobility and activities of daily living acute Iron deficiency anemia acute Oropharyngeal dysphagia acut e Right-sided sensory deficit present acute Seizure acute [facility] Work Phone: History and physical note Author John Garcia [facility] October 30, 2022 10:00pm Note Date/Time October 30, 2022 10:00pm [facility] [address] [place] [address] Hospitalist H&P Signed Patient: Viraj Doherty MR#: [id number] : 1955 Acct:[id number] Age/Sex: 67 / M Adm Date: 3 Loc: Room: [address] [place] [address] Type: ADM IN Attending Dr: John Garcia DO Copies to: MD John Millan, DO~ HPI DATE OF EXAMINATION: 10/30/22 CHIEF COMPLAINT: slurred speech HISTORY OF PRESENT ILLNESS: 67 y/o M with PMHx of HTN, hx of CVA who presents with complaint of slurred speech which started last night. Pt's states that he was admitted in [place] about 2 years ago with uncontrolled HTN and CVA and was in the ICU on a drip for his BP. States he was discharged with medications for BP and his CVA but states that he didn't like how the meds made him feel and he stopped taking them shortly after discharge. States since then, he has had multiple self resolving episodes of slurred speech or where he is unable to get words out, butstates these usually resolve on their own so when it happened last night, they thought it would go away, but his symptoms remained today so they came to the EDwhere he was found to have a BP >220/110. CT head was negative. CTA head/neck with two MCA occlusions in the M1 and M2 segments. This was discussed with lEsa who did not recommend TNK as pt outside the window and recommended admission for MRI and neurology evaluation and recommended DAPT and statin. Pt was given two doses of labetalol and admitted to progressive care for continued CVA workup. Review of Systems Review of Systems All other systems reviewed & are negative unless noted below or in HPI [facility] Medical History (Updated 10/30/22 @ 21:57 by John Garcia DO) CVA (cerebral vascular accident) HTN (hypertension) Hx of TIA (transient ischemic attack) and stroke Social History Smoking Status: Current some day smoker Substance Use Type: Marijuana Meds Medications and Allergies Allergies No Known Allergies Allergy (Verified 10/30/22 19:24) Home Medications No known home meds 10/30/22 [History Confirmed 10/30/22] Exam Physical Exam Vital Signs: Temp Pulse Resp BP Pulse Ox O2 Del Method 98.6 F 76 19 220/148 H 95 Room Air 10/30/22 19:10 10/30/22 21:11 10/30/22 21:04 10/30/22 21:11 10/30/22 21:04 10/30/22 21:04 Narrative: General: Awake and alert. Lying in bed comfortably, mild dysarthria noted HEENT: Normocephalic, atraumatic, trachea midline Respiratory: good inspiratory effort, clear to auscultation, no wheeze, no rhonchi, no crackles Cardiovascular: RRR, normal S1 and S2 Abdominal: soft, non-distended, no tenderness, no rebound, no guarding, +BS Skin: warm, dry, no lesions or rashes MSK: no edema Neurologic: No focal deficits other than dysarthria Psych: appropriate affect Results Lab Results Labs: Laboratory Last Values Corrected WBC 9.5 X10E3/uL (4.1-10.5) 10/30/22 19:12 Uncorrected WBC Count 9.5 x10E3/uL (4.1-10.5) 10/30/22 19:12 RBC 5.54 X10E6/uL (3.90-5.60) 10/30/22 19:12 Hgb 16.7 g/dL (13.0-17.0) 10/30/22 19:12 Hct 48.3 % (38.8-50.0) 10/30/22 19:12 MCV 87.2 fl (83.5-101) 10/30/22 19:12 MCH 30.2 pg (27.5-35.2) 10/30/22 19:12 MCHC 34.7 g/dL (32.5-35.6) 10/30/22 19:12 RDW 14.1 % (12.0-14.8) 10/30/22 19:12 Plt Count 192 x10E3/uL (150-450) 10/30/22 19:12 MPV 8.8 fl (6.6-10.1) 10/30/22 19:12 Neut % (Auto) 58.1 % (.) 10/30/22 19:12 Lymph % (Auto) 31.1 % (.) 10/30/22 19:12 [place] % (Auto) 9.0 % (.) 10/30/22 19:12 Eos % (Auto) 1.0 % (.) 10/30/22 19:12 Baso % (Auto) 0.8 % (.) 10/30/22 19:12 Nucleat RBC Rel Count 0.2 /100 WBC (0-0.5) 10/30/22 19:12 Neut # (Auto) 5.5 x10E3/uL (1.8-7.7) 10/30/22 19:12 Lymph # (Auto) 3.0 x10E3/uL (1.00-4.8) 10/30/22 19:12 [place] # (Auto) 0.9 x10E3/uL (0.0-0.8) H 10/30/22 19:12 Eos # (Auto) 0.1 x10E3/uL (0.0-0.45) 10/30/22 19:12 Baso # (Auto) 0.1 x10E3/uL (0.0-0.2) 10/30/22 19:12 Monocyte Dist Width 18.82 % (0.00-20.00) 10/30/22 19:12 PT 12.6 Seconds (9.0-12.9) 10/30/22 19:12 INR 1.1 10/30/22 19:12 APTT 29.4 Seconds (25.1-36.5) 10/30/22 19:12 PHA Creatinine Clear 71.14 10/30/22 19:12 Sodium 137 mmol/L (136-145) 10/30/22 19:12 Potassium 3.3 mmol/L (3.5-5.1) L 10/30/22 19:12 Chloride 104 mmol/L (98-107) 10/30/22 19:12 Carbon Dioxide 24.7 mmol/L (21.0-31.0) 10/30/22 19:12 Anion Gap 11.6 mEq/L (6.0-15.0) 10/30/22 19:12 BUN 12 mg/dL (7-25) 10/30/22 19:12 Creatinine 0.98 mg/dL (0.70-1.30) 10/30/22 19:12 Est GFR (CKD-EPI) > 60.0 mL/Min 10/30/22 19:12 Glucose 107 mg/dL (70-100) H 10/30/22 19:12 Calcium 9.1 mg/dL (8.6-10.3) 10/30/22 19:12 Total Creatine Kinase 133 U/L (30-223) 10/30/22 19:12 Troponin I High Sens 12.1 pg/mL (0.0-20.0) 10/30/22 19:12 Assessment & Plan Assessment/Plan (1) Acute CVA (cerebrovascular accident): (2) Hypertensive urgency: Plan # Slurred speech - likely due to CVA with hx of CVA in the past and non-compliant with meds - CT head with old infarcts. No acute process - CTA head/neck with MCA M1 and M2 occlusions which were discussed with neurology in [place]. Will continue asa/plavix/statin - MRI ordered - neurology consulted - neurochecks # HTN urgency - hx of HTN - stopped taking meds. Non-compliant - BP> 220/110 on arrival - permissive HTN with prn labetalol for SBP>180 - will need new hypertensive regimen prior to discharge Disposition: Pt with slurred speech admitted for CVA workup. DAPT, statin, prn labetalol. Neurology consulted. Monitor closely on progressive care. IP vs OBS Justification Based on differential dx, clinical care plan, and risk of adverse events, if untreated, in my clinical judgement this patient requires an acute care setting as: INPATIENT because of an expectation of an over 2 midnight stay. Estimated length of stay (# of days): 4 Time Spent With Patient (min): 45 Documented By: John Garcia DO 10/30/22 215 2 Signed By: <Electronically signed by John Garcia DO> 10/30/22 2200 [facility] Work Phone: Hospital course Narrative No data available for this section [facility] Discharge instructions No data available for this section [facility] Discharge instructions Additional Instructions [facility] will call you with a follow up with a neurovascular doctor. You are schedule with [facility] on November 30 at 3:30pm at [address] [facility] [address] Mike. Rehab to manage: - PT/OT/ST to eval and treat - Please follow previous Speech therapy recommendations - Monitor VS routine - Dx. HTN - Neuro assessments - Dx. CVA - Routine skin assessments/care -- Every 3 days - Mepilex border foam to coccyx for added protection.[facility] Work Phone: Hospital Discharge instructions Additional Instructions -Code Status: Full Code -Activity: Ambulate as tolerated with walker, Weightbearing as tolerated. No driving until cleared by Neurology, may ride in car. -Diet: Diabetic, 2000 calories a day, heart healthy (limit to 2 grams of sodium/day). Chopped meats, thin liquids. -Eating strategies: Sit upright at 90 degrees with oral intake, intermittent supervision with meals. You will have Outpatient Physical, Occupational, and Speech Therapy at [facility] [place] [facility] (Address: [address] [place] [address] , [place], [place]/ ). The order for this has already been sent to them, and they will contact you/your directly to schedule evaluation date(s)/times. If you do not hear from them by afternoon, please contact them directly at the phone number listed above. You have been given prescriptions for new and/or needed medications. These prescriptions are for a one-time fill only, with no re-fills. For further re-fills going forward, you will need to address with your PCP at your follow up appointment, or by calling your PCP s office prior to the prescriptions running out. NOTE: please call within 24 hours if you need to cancel or change any follow up appointments. Arrive early to all follow up appointments, bring current medication list, photo ID and any insurance card(s) to all future follow ups (listed below). Please remember to wear a mask to all appointments. If you develop any symptoms (cough, fever/chills, shortness of breath, sore throat, nausea/vomiting, etc.) please contact your provider's office to inform them prior to your appointment.[facility] Work Phone: Hospital Discharge instructions Additional Instructions REHAB TO MANAGE: PT/OT to eval and treat Monitor VS per protocol Monitor Neuro. assessment--CVA Maintain seizure precautions Care to be managed [facility] Work Phone: Hospital Discharge instructions Additional Instructions -Diet: low fat, low cholesterol. -Ambulate as tolerated. No driving unless cleared by physician, may ride in car. You will have Outpatient Therapy at [facility] ([phone] ext. [phone]). The order for this has been sent to them, and they will contact you/your directly to schedule your evaluation date(s)/times. If you do not hear from them by afternoon, please contact them directly at the phone number listed above. You have been given prescriptions for new and/or needed medications. These prescriptions are for a one-time fill only, with no re-fills. For further re-fills going forward, you will need to address with your PCP at your follow up appointment, or by calling your PCP s office prior to the prescriptions running out. NOTE: please call within 24 hours if you need to cancel or change any follow up appointments. Arrive early to all follow up appointments, bring current medication list, photo ID and any insurance card(s) to all future follow ups (listed below). Please remember to wear a mask to all appointments. If you develop any symptoms (cough, fever/chills, shortness of breath, sore throat, nausea/vomiting, etc.) please contact your provider's office to inform them prior to your appointment.[facility] Work Phone: Progress note No data available for this section [facility] Summary Purpose Family History No Family History Records Found Relationship Condition Age at Onset Recorded Date/T amanda Not Specified Hypertension Unknown Advance Directives No Advanced Directives Records Found Advance Directive Response Recorded Date/ Time Advance Directives No October 8:01pm Chief Complaint and Reason for Visit Chief Complaint slurred speech Reason for Visit Acute CVA (cerebrova scular accident) Hypertensive urgency Chief Complaint slurred speech Reason for Visit Acute CVA (cerebrova scular accident) Cerebrovascular accident (CVA) of left thalamus Hyperlipidemia Hypertensive urgency Intracranial atherosclerosis Nonadherence to medication Oropharyngeal dysphagia Right hemiplegia Chief Complaint slurred speech Left Thalamus CVA Reason for Visit Acute CVA (cerebrova scular accident) Cerebrovascular accident (CVA) of left thalamus Hyperlipidemia Hypertensive urgency Intracranial atherosclerosis Nonadherence to medication Oropharyngeal dysphagia Right hemiplegia Cerebrovascular accident (CVA) of left thalamus Hyperlipidemia Hypertensive urgency Intracranial atherosclerosis Nonadherence to medication Oropharyngeal dysphagia Right hemiplegia Tobacco abuse disorder Chief Complaint slurred speech Left Thalamus CVA V CVA new onset seizure Reason for Visit Acute CVA (cerebrova scular accident) Cerebrovascular accident (CVA) of left thalamus Hyperlipidemia Hypertensive urgency Intracranial atherosclerosis Nonadherence to medication Oropharyngeal dysphagia Right hemiplegia Cerebrovascular accident (CVA) of left thalamus Hyperlipidemia Hypertensive urgency Intracranial atherosclerosis Nonadherence to medication Oropharyngeal dysphagia Right hemiplegia Tobacco abuse disorder Acute ischemic left MCA stroke Cerebrovascular accident (CVA) of left thalamus Dysarthria Hyperlipidemia Intracranial atherosclerosis Oropharyngeal dysphagia Right hemiplegia Seizure Chief Complaint slurred speech Left Thalamus CVA V CVA new onset seizure Left MCA CVA Reason for Visit Acute CVA (cerebrova scular accident) Cerebrovascular accident (CVA) of left thalamus Hyperlipidemia Hypertensive urgency Intracranial atherosclerosis Nonadherence to medication Oropharyngeal dysphagia Right hemiplegia Cerebrovascular accident (CVA) of left thalamus Hyperlipidemia Hypertensive urgency Intracranial atherosclerosis Nonadherence to medication Oropharyngeal dysphagia Right hemiplegia Tobacco abuse disorder Acute ischemic left MCA stroke Cerebrovascular accident (CVA) of left thalamus Dysarthria Hyperlipidemia Intracranial atherosclerosis Oropharyngeal dysphagia Right hemiplegia Seizure Acute ischemic left MCA stroke Dysarthria HTN (hypertension) Hyperlipidemia Impaired mobility and activities of daily living Iron deficiency anemia Oropharyngeal dysphagia Right-sided sensory deficit present Seizure Additional Source Comments (unrecognized sect ion and content) No Status Records FoundNo Status Records FoundNo Status Records FoundNo Status Records Found INFORMATION SOURCE (unrecogn ized section and content) DATE CREATED AUTHOR 06/11/2018 [facility] DATE CREATED AUTHOR AUTHOR'S ORGANIZ ATION 10/23/2018 [facility] DATE CREATED AUTHOR AUTHOR'S ORGANIZ ATION 09/09/2022 [facility] DATE CREATED AUTHOR AUTHOR'S ORGANIZ ATION 12/27/[address] [facility] Care Team (unrecognized sect ion and content) Team Status: Active Member Role Status Dates Marilyn Patrick MD Primary Care Provider Active Team Status: Inactive Member Role Status Dates Nolberto Hernandez MD Emergency Provider Active Marilyn Patrick MD Primary Care Provider Active John Garcia DO Admit Provider Active Davey Harding MD Attending Provider Active Jose David Aponte , Other Provider Active Jose Martin Sen MD Other Provider Active Team Status: Active Member Role Status Dates Nolberto Hernandez MD Emergency Provider Active Marilyn Patrick MD Primary Care Provider Active John Garcia DO Admit Provider, Attending Provid er Active Team Status: Inactive Member Role Status Dates Marilyn Patrick MD Primary Care Provider Active Jose Martin Sen MD Admit Provider, Attending Provider A ctive Jodi Carlisle , RN Other Provider Active Aggie Martines , RN Other Provider Active Cayla Brandon , RN Other Provider Active Yoli Mckeon , RN Other Provider Active Kindra Benitez , DARON Other Provider Active Charlotte Gupta , DARON Other Provider Active Nu Nur MD Other Provider Active Yennifer Miller , JASMIN Other Provider Active Stephanie Thomas DO Other Provider Active Pasquale Gillespie MD Other Provider Active Rohan Levy DO Other Provider Active Davey Harding MD Other Provider Active Mindi Juan MD Other Provider Active Anuradha Becker , ANP-BC Other Provider Active Ryan Palacio MD Other Provider Active Herbert May MD Other Provider Active Kaushal Mata MD Other Provider Active Fidelia Hernández MD Other Provider Active Kevin Adrian DO Other Provider Active Ton Wilkinson MD Other Provider Active Deangelo Jeong MD Other Provider Active Rhonda Addison NP-C Other Provider Active Franklyn Mariano MD Other Provider Active Foster Patterson MD Other Provider Active Axel Wolfe MD Other Provider Active Obey Dawn MD Other Provider Active Maty Giles , DO Other Provider Active Hilario Bojorquez , DO Other Provider Active Garrett Kim , DO Other Provider Active Aziza Walker , ENGINEER GEOPHYSICAL LABORATORY Other Provider Active Alex Weems , DO Other Provider Active Quynh Galvan MD Other Provider Active Linh Hernandez , ENGINEER GEOPHYSICAL LABORATORY Other Provider Active Sara Osorio , ENGINEER GEOPHYSICAL LABORATORY Other Provider Active Tamara Loco MD Other Provider Active Guzman Garcia MD Other Provider Active Estephania Lepe , ENGINEER GEOPHYSICAL LABORATORY Other Provider Active Destiny Quinteros RN Other Provider Active Team Status: Active Member Role Status Terrell Patrick MD Primary Care Provider Active Jose Martin Sen MD Attending Provider Active Team Status: Inactive Member Role Status Terrell Patrick MD Primary Care Provider Active Ton Wilkinson MD Admit Provider Active Marie Nicholas Other Provider Active Shannan Bergeron , DO Other Provider Active Angus Block MD Other Provider Active Leodan Younger , DO Other Provider Active Joanna Decker , ANP-BC Other Provider Active Jose David Aponte , DO Other Provider Active Johana Mayers , ENGINEER GEOPHYSICAL LABORATORY Other Provider Active Misti Joel , GROUND SCHOOL INSTRUCTOR-C Other Provider Active Ivon Yoo , ENGINEER GEOPHYSICAL LABORATORY-PUMP SERVICER SUPERVISOR-C Other Provider Active Davey Harding MD Attending Provider Active Santosh Rivera MD Other Provider Active Team Status: Inactive Member Role Status Dates Marilyn Patrick MD Primary Care Provider Active Jose Martin Sen MD Admit Provider, Attending Provider A ctive Jodi Carlisle , DARON Other Provider Active Aggie Martines , RN Other Provider Active Cayla Brandon , RN Other Provider Active Yoli Mckeon , RN Other Provider Active Kindra Benitez , DARON Other Provider Active Charlotte Gupta , DAORN Other Provider Active Nu Nur MD Other Provider Active Yennifer Miller , ENGINEER GEOPHYSICAL LABORATORY Other Provider Active Stephanie Thomas , DO Other Provider Active Pasquale Gillespie MD Other Provider Active Rohan Levy , DO Other Provider Active Davey Harding MD Other Provider Active Mindi Juan MD Other Provider Active Anuradha Parmar , ENGINEER GEOPHYSICAL LABORATORY Other Provider Active Ryan Palacio MD Other Provider Active Herbert May MD Other Provider Active Kaushal Mata MD Other Provider Active Fidelia Hernández MD Other Provider Active Kevin Adrian , DO Other Provider Active Ton Wilkinson MD Other Provider Active Deangelo Jeong MD Other Provider Active Rhonda Addison GROUND SCHOOL INSTRUCTOR-C Other Provider Active Franklyn Mariano MD Other Provider Active Foster Patterson MD Other Provider Active Axel Wolfe MD Other Provider Active Obey Dawn MD Other Provider Active Maty Giles , DO Other Provider Active Hilario Bojorquez , DO Other Provider Active Garrett Kim , DO Other Provider Active Aziza Walker , ENGINEER GEOPHYSICAL LABORATORY Other Provider Active Alex Weems , DO Other Provider Active Quynh Galvan MD Other Provider Active Linh Hernandez , ENGINEER GEOPHYSICAL LABORATORY Other Provider Active Sara Osorio , ENGINEER GEOPHYSICAL LABORATORY Other Provider Active Tamara Loco MD Other Provider Active Guzman Garcia MD Other Provider Active Estephania Lepe , ENGINEER GEOPHYSICAL LABORATORY Other Provider Active Destiny Quinteros RN Other Provider Active Team Status: Inactive Member Role Status Dates Marilyn Patrick MD Primary Care Provider Active Jose Martin Sen MD Attending Provider Active Goals (unrecognized section and content) Goals may be documented in a n alternate section FOR RECORDS PERTAINING TO PATIENTS WHO ARE OR HAVE BEEN ENROLLED IN A CHEMICAL DEPENDENCY/SUBSTANCEABUSE PROGRAM, SOME INFORMATION MAY BE OMITTED. This clinical summary was aggregated from multiple sources. Caution should be exercised in using it in the provision of clinical care. This summary normalizes information from multiple sources, and as a consequence, information in this document may materially change the coding, format and clinical context of patient data. In addition, data may be omitted in some cases. CLINICAL DECISIONS SHOULD BE BASED ON THE PRIMARY CLINICAL RECORDS. [facility] [employer] [facility]. provides no warranty or guarantee of the accuracy or completeness of information in this document.
[2023-04-11 11:47] LABS: Basophils Absolute Auto 0.1 10^3/uL (0.0-0.1); Eosinophils Absolute Auto 0.1 10^3/uL (0.0-0.7); Eosinophils Percent Auto 2.2 % (0.9-7.0); Immature Granulocytes Abs Auto 0.02 10^3/uL (0.00-0.03); Immature Granulocytes Pct Auto 0.4 % (0.0-0.5); Lymphocytes Absolute Auto 1.6 10^3/uL (1.2-3.8); Lymphocytes Percent Auto 29.4 % (20.5-60.0); Mean Corpuscular HGB Conc 27.2 g/dL (29.9-35.2); Mean Corpuscular Hemoglobin 17.3 pg (25.9-34.0); Mean Corpuscular Volume 63.5 fL (80.0-94.0); Mean Platelet Volume 9.6 fL (9.5-13.5); Monocytes Absolute Auto 0.6 10^3/uL (0.3-0.8); Monocytes Percent Auto 11.4 % (1.7-12.0); Neutrophils Percent Auto 54.6 % (43.0-75.0); Platelet Count 181 10^3/uL (150-450); Red Blood Count 3.18 10^6/uL (4.70-6.10); Red Cell Distribution Width 19.4 % (11.0-15.0); White Blood Count 5.6 10^3/uL (4.0-11.0)
[2023-04-11 12:20] LABS: Hemoglobin 5.5 g/dL (14.0-18.0)
[2023-04-11 12:21] LABS: Hematocrit 20.2 % (42.0-54.0)
[2023-04-11 12:41] LABS: Estimated Average Glucose 111 mg/dL; Glycohemoglobin A1C 5.5 % (4.5-6.2)
[2023-04-11 13:25] LABS: Alanine Aminotransferase 28 U/L (16-63); Albumin Globulin Ratio 1.1; Albumin Level 3.9 g/dL (3.4-5.0); Alkaline Phosphatase 64 U/L (46-116); Anion Gap 13.9; Aspartate Amino Transferase 14 U/L (15-37); BUN Creatinine Ratio 14.8; Bilirubin Total 0.6 mg/dL (0.2-1.0); Calcium 8.6 mg/dL (8.5-10.1); Carbon Dioxide 26.7 mmol/L (21.0-32.0); Chloride 106 mmol/L (98-107); Chol HDL Ratio 3.3; Cholesterol 112 mg/dL (<=200); Estimated GFR (African America >60 (>=60); Estimated GFR (Non-African Ame 59 (>=60); Free T3 2.24 pg/mL (2.18-3.98); Globulin 3.5 g/dL; Glucose 88 mg/dL (74-106); HDL Cholesterol 34 mg/dL (40-60); Potassium 3.6 mmol/L (3.5-5.1); Sodium 143 mmol/L (136-145); Thyroid Stimulating Hormone 2.455 uIU/mL (0.358-3.740); Total Protein 7.4 g/dL (6.4-8.2); Triglycerides 71 mg/dL (<=150); Uric Acid 5.6 mg/dL (3.5-7.2); VLDL CHOLESTEROL 14.2 mg/dL
[2023-04-11 13:33] LABS: Prostate Specific Antigen Scrn 1.83 ng/mL (<=4.00)
[2023-04-12 11:19] LABS: Insulin 7.4 uIU/mL (2.6-24.9)
== END 2023-04-11 11:18 | disposition home or self-care (01) ==
LOC: LAB 11:19
PROVIDERS: PCP Family Medicine; Visit Provider Family Medicine
DX: E78.5 Hyperlipidemia, unspecified (principal); I10 Essential (primary) hypertension; R73.03 Prediabetes; R73.09 Other abnormal glucose; Z12.5 Encounter for screening for malignant neoplasm of prostate; I50.9 Heart failure, unspecified
CPT/HCPCS: 36415; 80053; 80061; 83036; 83525; 83880; 84436; 84443; 84481; 84550; 85025; G0103

== ENCOUNTER 2023-04-12 11:43 | Outpatient (RCR) | payer MEDICARE, SELFPAY ==
[2023-04-13] VITALS (7 sets, daily range): BP systolic 152–181; BP diastolic 74–92; PULSE 61–86; RESP 14–18; TEMP 36.4–36.9; O2SAT 98–100
[2023-04-13] MEDS: FUROSEMIDE 20 MG/2 ML VIAL IV (12:50)
[2023-04-13 15:38] LABS: Hematocrit 27.2 % (42.0-54.0); Hemoglobin 7.6 g/dL (14.0-18.0); Mean Corpuscular HGB Conc 27.9 g/dL (29.9-35.2); Mean Corpuscular Hemoglobin 19.7 pg (25.9-34.0); Mean Corpuscular Volume 70.5 fL (80.0-94.0); Mean Platelet Volume 9.3 fL (9.5-13.5); Platelet Count 178 10^3/uL (150-450); Red Blood Count 3.86 10^6/uL (4.70-6.10); Red Cell Distribution Width 25.3 % (11.0-15.0)
== END 2023-04-26 17:41 | disposition home or self-care (01) ==
LOC: LAB 11:43
PROVIDERS: PCP Family Medicine; Visit Provider Family Medicine
DX: D64.9 Anemia, unspecified (principal)
CPT/HCPCS: 36415; 36430; 85027; 86850; 86900; 86901; P9016

== ENCOUNTER 2023-04-13 01:00 | Outpatient (REF) | payer MEDICARE, SELFPAY ==
--- OUTSIDE RECORDS SUMMARY | 2023-04-13 10:34 | XMS_ITS | CCD ---
Author Name Unknown Address [address] [facility] [address] [place] [address] Organization [facility] Care Team Providers Care Offal Baler Name Role Phone PHYSICIAN, DEFAULT Admitting Unavailable PHYSICIAN, DEFAULT Attending Unavailable MARILYN PATRICK Primary Care Unavailable MARILYN PATRICK Admitting Unavailable MARILYN PATRICK Attending Unavailable MARILYN PATRICK Consulting Unavailable ANGUS MCFARLANE Consulting Unavailable DELIO BOYER Consulting Unavailable DARNELL MARILYN Admitting Unavailable DARNELL MARILYN Attending Unavailable DARNELL MARILYN Primary Care Unavailable DARNELL MARILYN Consulting Unavailable Godfrey Patricklas Primary Care Physician SHANNON JORDAN Attending Unavailable SHANNON JORDAN Admitting Unavailable MD Nolberto Hernandez Emergency Provider MD Marilyn Patrick Primary Care Provider [place] Admit Provider [phone] [place] Attending Provider MD Davey Harding Attending Provider DO Jose David Aponte Other Provider MD Jose Martin Sen Other Provider MD Jose Martin Sen Admit Provider MD Jose Martin Sen Attending Provider DARON Carlisle Other Provider Unavailable DARON Martines Other Provider Unavailable DARON Brandon Other Provider Unavailable DARON Mckeon Other Provider Unavailable DARON Benitez Other Provider Unavailable DARON Gupta Other [...] Provider MD Deangelo Jeong Other Provider Cyn, DIRECTOR OF EMPLOYEE DEVELOPMENT-C Rhonda J Other Provider MD Franklyn Mariano [...] Other Provider MD Guzman Garcia Other Provider [phone] JASMIN Lepe Other Provider DARON Quinteros Other Provider Unavailable MD Ton Wilkinson Admit Provider Marie Nicholas Other Provider Unavailable DO Shannan Bergeron Other Provider MD Angus Block Other Provider DO Leodan Younger Other Provider IBIS Decker-KAREL Marshall Other Provider JASMIN Mayers Other Provider KRISTIE Joel Other Provider JASMIN Yoo-STRATEGIC SOURCING SPECIALIST-C Ivon Ceja Other Provider MD Santosh Rivera Other Provider [phone] JASMIN Parmar Other Provider Davey Harding Attending [...] Unavailab le Leonardo, Foster Consulting Unavailable Wolfe, Aexl Consulting Unavailable Nereyda, Obey Consulting Unavailable Maty [...] Anion gap [Moles/Vol] 9.8 mmol/L Normal 6.0-15.0 [facility] Comment on above: Performed By: #### F ER, [id number], FE and TIBC, MG #### [facility] [address] Calcium [Mass/Vol] 8.7 mg/dL Normal 8.6-10.3 [facility] Comment on above: Performed By: #### F ER, [id number], FE and TIBC, MG #### [facility] [address] [place] [id number] [place] Chloride [Moles/Vol] 111 mmol/L High 98-107 [facility] Comment on above: Performed By: #### F ER, [id number], FE and TIBC, MG #### [facility] [address] [place] [id number] [place] CO2 [Moles/Vol] 25.7 mmol/L Normal 21.0-31.0 [facility] Comment on above: Performed By: #### F ER, [id number], FE and TIBC, MG #### [facility] [address] Creatinine [Mass/Vol] 0.87 mg/dL Normal 0.70-1.30 [facility] Comment on above: Performed By: #### F ER, [id number], FE and TIBC, MG #### [facility] [address] Creatinine Clr Calc Pharmacy 79.00 [facility] Comment on above: Result Comment: PERF ORMED BY: [place] [address] PATHOLOGIST COVERED [employer]LE [employer]SEMBLER TERESA PATTERSON M.D. Performed By: #### F ER, [id number], FE and TIBC, MG #### [address] GFR/1.73 sq M.predicted MDRD (S/P/Bld) [Vol rate/Area] mL/min/{1.73_m2} [facility] Comment on above: Performed By: #### F ER, [id number], FE and TIBC, MG #### [facility] [address] Glucose [Mass/Vol] 95 mg/dL Normal 70-100 [facility] Comment on above: Result Comment: [place] Glucose Reference Range is dependent on time and content of last meal. Glucose of more than 200 mg/dL in a nonstressed, ambulatory subject supports the diagnosis of Diabetes Mellitus. ADA recommended reference range Performed By: #### F ER, [id number], FE and TIBC, MG #### [facility] [address] Potassium [Moles/Vol] 3.5 mmol/L Normal 3.5-5.1 [facility] Comment on above: Performed By: #### F ER, [id number], FE and TIBC, MG #### [facility] [address] [place] [address] [place] Sodium [Moles/Vol] 143 mmol/L Normal 136-145 [facility] Comment on above: Performed By: #### F ER, [id number], FE and TIBC, MG #### [facility] [address] Urea nitrogen [Mass/Vol] 16 mg/dL Normal 7-25 [facility] Comment on above: Performed By: #### F ER, [id number], FE and TIBC, MG #### [facility] [address] Basophils Auto (Bld) [#/Vol] Ordered By: Jose Martin Sen on 12-19-2022 Basophils (Bld) [#/Vol] 0.1 10*3/uL 0.0-0.2 [facility] Basophils/100 WBC Auto (Bld) Ordered By: Jose Martin Sen on 12-19-2022 Basophils/100 WBC (Bld) 1.3 % . [facility] Calcium [Mass/volume] in Ser um or PlasmaOrdered By: Jose Martin Sen on 12-19-2022 Calcium [Mass/Vol] 8.7 mg/dL 8.6-10.3 [facility] Carbon dioxide, total [Moles /volume] in Serum or PlasmaOrdered By: Jose Martin Sen on 12-19-2022 CO2 [Moles/Vol] 25.7 mmol/L 21.0-31.0 [facility] Chloride [Moles/volume] in S shani or PlasmaOrdered By: Jose Martin Sen on 12-19-2022 Chloride [Moles/Vol] 111 mmol/L 98-107 [facility] Complete Blood Count Auto Di ffon 12-19-2022 Basophils (Bld) [#/Vol] 0.1 10*3/uL Normal 0.0-0.2 [facility] Comment on above: Result Comment: PERF ORMED BY: [place] [address] PATHOLOGIST COVERED [employer]SEMBLER TERESA PATTERSON M.D. Performed By: #### B MP, CBC #### [facility] [address] [place] [address] Basophils/100 WBC (Bld) 1.3 % Normal . [facility] Comment on above: Performed By: #### B MP, CBC #### [address] Eosinophils (Bld) [#/Vol] 0.1 10*3/uL Normal 0.0-0.45 [facility] Comment on above: Performed By: #### B MP, CBC #### [address] Eosinophils/100 WBC (Bld) 2.0 % Normal . [facility] Comment on above: Performed By: #### B MP, CBC #### [address] Erythrocyte distribution width (RBC) [Ratio] 14.1 % Normal 12.0-14.8 [facility] Comment on above: Performed By: #### B MP, CBC #### [address] Hematocrit (Bld) [Volume fraction] 22.7 % Low 38.8-50.0 [facility] Comment on above: Performed By: #### B MP, CBC #### [address] Hemoglobin (Bld) [Mass/Vol] 8.1 g/dL Low 13.0-17.0 [facility] Comment on above: Performed By: #### B MP, CBC #### [address] Lymphocytes (Bld) [#/Vol] 2.1 10*3/uL Normal 1.00-4.8 [facility] Comment on above: Performed By: #### B MP, CBC #### [address] Lymphocytes/100 WBC (Bld) 33.2 % Normal . [facility] Comment on above: Performed By: #### B MP, CBC #### [address] MCH (RBC) [Entitic mass] 31.1 pg Normal 27.5-35.2 [facility] Comment on above: Performed By: #### B MP, CBC #### [facility] [address] MCV (RBC) [Entitic vol] 86.6 fL Normal 83.5-101 [facility] Comment on above: Performed By: #### B MP, CBC #### [facility] [address] Mean Corpuscular HGB Conc 35.9 g/dL High 32.5-35.6 [facility] Comment on above: Performed By: #### B MP, CBC #### [address] Monocytes (Bld) [#/Vol] 0.6 10*3/uL Normal 0.0-0.8 [facility] Comment on above: Performed By: #### B MP, CBC #### [address] Monocytes/100 WBC (Bld) 9.2 % Normal . [facility] Comment on above: Performed By: #### B MP, CBC #### [address] Neutrophils (Bld) [#/Vol] 3.4 10*3/uL Normal 1.8-7.7 [facility] Comment on above: Performed By: #### B MP, CBC #### [place] [address] [place] Neutrophils/100 WBC (Bld) 54.3 % Normal . [facility] Comment on above: Performed By: #### B MP, CBC #### [place] [address] [place] NRBC% 0.0 /100{WBC} Normal 0-0.5 [facility] Comment on above: Performed By: #### B MP, CBC #### [address] Platelet mean volume (Bld) [Entitic vol] 7.9 fL Normal 6.6-10.1 [facility] Comment on above: Performed By: #### B MP, CBC #### [facility] [address] Platelets (Bld) [#/Vol] 248 10*3/uL Normal 150-450 [facility] Comment on above: Performed By: #### B MP, CBC #### [facility] [address] RBC (Bld) [#/Vol] 2.62 10*6/uL Low 3.90-5.60 [facility] Comment on above: Performed By: #### B MP, CBC #### [facility] [address] WBC (Bld) [#/Vol] 6.3 10*3/uL Normal 4.1-10.5 [facility] Comment on above: Performed By: #### B MP, CBC #### [facility] [address] Creatinine [Mass/volume] in Serum or PlasmaOrdered By: Jose Martin Sen on 12-19-2022 Creatinine [Mass/Vol] 0.87 mg/dL 0.70-1.30 [facility] Eosinophils Auto (Bld) [#/Vo l]Ordered By: Jose Martin Sen on 12-19-2022 Eosinophils (Bld) [#/Vol] 0.1 10*3/uL 0.0-0.45 [facility] Eosinophils/100 WBC Auto (Bl d)Ordered By: Jose Martin Sen on 12-19-2022 Eosinophils/100 WBC (Bld) 2.0 % . [facility] Erythrocyte distribution wid th Auto (RBC) [Ratio]Ordered By: Jose Martin Sen on 12-19-2022 Erythrocyte distribution width (RBC) [Ratio] 14.1 % 12.0-14.8 [facility] Glucose [Mass/volume] in Ser um or PlasmaOrdered By: Jose Martin Sen on 12-19-2022 Glucose [Mass/Vol] 95 mg/dL 70-100 [facility] Comment on above: ADA recommended refe rence rangeRandom Glucose Reference Range is dependent on time and content of last meal. Glucose of more than 200 mg/dL in a nonstressed, ambulatory subject supports the diagnosis of Diabetes Mellitus. Hematocrit Auto (Bld) [Volum e fraction]Ordered By: Jose Martin Sen on 12-19-2022 Hematocrit (Bld) [Volume fraction] 22.7 % 38.8-50.0 [facility] Hemoglobin [Mass/volume] in BloodOrdered By: Jose Martin Sen on 12-19-2022 Hemoglobin (Bld) [Mass/Vol] 8.1 g/dL 13.0-17.0 [facility] Leukocytes [#/volume] correc khadra for nucleated erythrocytes in Blood by Automated counOrdered By: Jose Martin Sen on 12-19-2022 WBC corrected for nucl RBC Auto (Bld) [#/Vol] 6.3 10*3/uL 4.1-10.5 [facility] Lymphocytes Auto (Bld) [#/Vo l]Ordered By: Jose Martin Sen on 12-19-2022 Lymphocytes (Bld) [#/Vol] 2.1 10*3/uL 1.00-4.8 [facility] Lymphocytes/100 WBC Auto (Bl d)Ordered By: Jose Martin Sen on 12-19-2022 Lymphocytes/100 WBC (Bld) 33.2 % . [facility] MCH Auto (RBC) [Entitic mass ]Ordered By: Jose Martin Sen on 12-19-2022 MCH (RBC) [Entitic mass] 31.1 pg 27.5-35.2 [facility] MCHC Auto (RBC) [Mass/Vol]Or dered By: Jose Martin Sen on 12-19-2022 MCHC (RBC) [Mass/Vol] 35.9 g/dL 32.5-35.6 [facility] MCV Auto (RBC) [Entitic vol] Ordered By: Jose Martin Sen on 12-19-2022 MCV (RBC) [Entitic vol] 86.6 fL 83.5-101 [facility] Monocytes Auto (Bld) [#/Vol] Ordered By: Jose Martin Sen on 12-19-2022 Monocytes (Bld) [#/Vol] 0.6 10*3/uL 0.0-0.8 [facility] Monocytes/100 WBC Auto (Bld) Ordered By: Jose Martin Sen on 12-19-2022 Monocytes/100 WBC (Bld) 9.2 % . [facility] Neutrophils Auto (Bld) [#/Vo l]Ordered By: Jose Martin Sen on 12-19-2022 Neutrophils (Bld) [#/Vol] 3.4 10*3/uL 1.8-7.7 [facility] Neutrophils/100 WBC Auto (Bl d)Ordered By: Jose Martin Sen on 12-19-2022 Neutrophils/100 WBC (Bld) 54.3 % . [facility] No Panel InformationOrdered By: Jose Martin Sen on 12-19-2022 Estimated GFR (CKD-EPI) > 60.0 mL/Min [facility] Creatinine Clearance (Chem 79.00 [facility] Nucleated erythrocytes [Pres ence] in Blood by Automated countOrdered By: Jose Martin Sen on 12-19-2022 Nucleated RBC Auto Ql (Bld) 0.0 /100{WBC} 0-0.5 [facility] Platelet mean volume Auto (B ld) [Entitic vol]Ordered By: Jose Martin Sen on 12-19-2022 Platelet mean volume (Bld) [Entitic vol] 7.9 fL 6.6-10.1 [facility] Platelets Auto (Bld) [#/Vol] Ordered By: Jose Martin Sen on 12-19-2022 Platelets (Bld) [#/Vol] 248 10*3/uL 150-450 [facility] Potassium [Moles/volume] in Serum or PlasmaOrdered By: Jose Martin Sen on 12-19-2022 Potassium [Moles/Vol] 3.5 mmol/L 3.5-5.1 [facility] RBC Auto (Bld) [#/Vol]Ordere d By: Jose Martin Sen on 12-19-2022 RBC (Bld) [#/Vol] 2.62 10*6/uL 3.90-5.60 [facility] Serum or plasma anion gap de terminationOrdered By: Jose Martin Sen on 12-19-2022 Anion gap [Moles/Vol] 9.8 mmol/L 6.0-15.0 [facility] Sodium [Moles/volume] in Ser um or PlasmaOrdered By: Jose Martin Sen on 12-19-2022 Sodium [Moles/Vol] 143 mmol/L 136-145 [facility] Urea nitrogen [Mass/volume] in Serum or PlasmaOrdered By: Jose Martin Sen on 12-19-2022 Urea nitrogen [Mass/Vol] 16 mg/dL 7 [facility] WBC Auto (Bld) [#/Vol]Ordere d By: Jose Martin Sen on 12-19-2022 WBC (Bld) [#/Vol] 6.3 10*3/uL 4.1-10.5 [facility] Basic Metabolic Panelon 11-26 Anion gap [Moles/Vol] 11.5 mmol/L Normal 6.0-15.0 [facility] Comment on above: Performed By: #### B MP, CBC #### [facility] [address] [place] [address] [place] Calcium [Mass/Vol] 9.1 mg/dL Normal 8.6-10.3 [facility] Comment on above: Performed By: #### B MP, CBC #### [facility] [address] [place] [address] [place] Chloride [Moles/Vol] 106 mmol/L Normal 98-107 [facility] Comment on above: Performed By: #### B MP, CBC #### [facility] [address] [place] [id number] [place] CO2 [Moles/Vol] 28.7 mmol/L Normal 21.0-31.0 [facility] Comment on above: Performed By: #### B MP, CBC #### [facility] [address] [place] [id number] [place] Creatinine [Mass/Vol] 1.12 mg/dL Normal 0.70-1.30 [facility] Comment on above: Performed By: #### B MP, CBC #### [facility] [address] [place] [address] [place] Creatinine Clr Calc Pharmacy 61.10 Normal [facility] Comment on above: Result Comment: PERF ORMED BY: [facility] [address] [place] [address] PATHOLOGIST COVERED [employer]SEMBLER TERESA PATTERSON M.D. Performed By: #### B MP, CBC #### [facility] [address] [place] [address] [place] GFR/1.73 sq M.predicted MDRD (S/P/Bld) [Vol rate/Area] mL/min/{1.73_m2} Normal [facility] Comment on above: Performed By: #### B MP, CBC #### [facility] [address] Glucose [Mass/Vol] 105 mg/dL High 70-100 [facility] Comment on above: Result Comment: [facility] Glucose Reference Range is dependent on time and content of last meal. Glucose of more than 200 mg/dL in a nonstressed, ambulatory subject supports the diagnosis of Diabetes Mellitus. ADA recommended reference range Performed By: #### B MP, CBC #### [facility] [address] Potassium [Moles/Vol] 3.2 mmol/L Low 3.5-5.1 [facility] Comment on above: Performed By: #### B MP, CBC #### [facility] [address] Sodium [Moles/Vol] 143 mmol/L Normal 136-145 [facility] Comment on above: Performed By: #### B MP, CBC #### [facility] [address] [place] [address] [place] Urea nitrogen [Mass/Vol] 25 mg/dL Normal 7-25 [facility] Comment on above: Performed By: #### B MP, CBC #### [facility] [address] [place] [address] [place] Magnesiumon 12-14-2022 Magnesium [Mass/Vol] 2.0 mg/dL Normal 1.9-2.7 [facility] Comment on above: Result Comment: PERF ORMED BY: [place] [address] PATHOLOGIST COVERED [employer]SEM[employer]ER TERESA PATTERSON M.D. Performed By: #### B MP, CBC #### [facility] [address] [place] [address] [facility] Magnesium [Mass/volume] in S shani or PlasmaOrdered By: Janice Altamirano on 12-14-2022 Magnesium [Mass/Vol] 2.0 mg/dL 1.9-2.7 [facility] Potassiumon 12-14-2022 Potassium [Moles/Vol] 3.5 mmol/L Normal 3.5-5.1 [facility] Comment on above: Result Comment: PERF ORMED BY: [facility] [address] [facility] [place] [id number] PATHOLOGIST COVERED [employer]SEMBLER TERESA PATTERSON M.D. Performed By: #### F ER, [id number], FE and TIBC, MG #### [facility] [address] [place] [address] [facility] Alanine aminotransferase [En zymatic activity/volume] in Serum or PlasmaOrdered By: Santosh Rivera on 12-13-2022 ALT [Catalytic activity/Vol] 25 U/L 7-52 [facility] Albumin [Mass/volume] in Ser um or Plasma by Bromocresol green (BCG) dye binding methoOrdered By: Santosh Rivera on 12-13-2022 Albumin BCG dye [Mass/Vol] 4.0 g/dL 3.5-5.7 [facility] Alkaline phosphatase [Enzyma tic activity/volume] in Serum or PlasmaOrdered By: Santosh Rivera on 12-13-2022 ALP [Catalytic activity/Vol] 72 U/L 34-104 [facility] Aspartate aminotransferase [ Enzymatic activity/volume] in Serum or PlasmaOrdered By: Santosh Rivera on 12-13-2022 AST [Catalytic activity/Vol] 15 U/L 13-39 [facility] Bilirubin.total [Mass/volume ] in Serum or PlasmaOrdered By: Santosh Rivera on 12-13-2022 Bilirubin [Mass/Vol] 0.6 mg/dL 0.3-1.0 [facility] Complete Blood Count Auto Di ffon 12-13-2022 Basophils (Bld) [#/Vol] 0.1 10*3/uL Normal 0.0-0.2 [facility] Comment on above: Result Comment: PERF ORMED BY: [place] [address] PATHOLOGIST COVERED [employer]SEM[employer]ER TERESA PATTERSON M.D. Performed By: #### B MP, CBC #### [facility] [address] [place] [address] Basophils/100 WBC (Bld) 1.2 % Normal . [facility] Comment on above: Performed By: #### B MP, CBC #### [address] Eosinophils (Bld) [#/Vol] 0.2 10*3/uL Normal 0.0-0.45 [facility] Comment on above: Performed By: #### B MP, CBC #### [address] Eosinophils/100 WBC (Bld) 2.7 % Normal . [facility] Comment on above: Performed By: #### B MP, CBC #### [address] Erythrocyte distribution width (RBC) [Ratio] 14.5 % Normal 12.0-14.8 [facility] Comment on above: Performed By: #### B MP, CBC #### [address] Hematocrit (Bld) [Volume fraction] 25.4 % Low 38.8-50.0 [facility] Comment on above: Performed By: #### B MP, CBC #### [place] [address] [place] Hemoglobin (Bld) [Mass/Vol] 9.1 g/dL Low 13.0-17.0 [facility] Comment on above: Performed By: #### B MP, CBC #### [facility] [address] [place] [address] [place] Lymphocytes (Bld) [#/Vol] 2.5 10*3/uL Normal 1.00-4.8 [facility] Comment on above: Performed By: #### B MP, CBC #### [address] Lymphocytes/100 WBC (Bld) 36.9 % Normal . [facility] Comment on above: Performed By: #### B MP, CBC #### [facility] [address] MCH (RBC) [Entitic mass] 31.5 pg Normal 27.5-35.2 [facility] Comment on above: Performed By: #### B MP, CBC #### [address] MCV (RBC) [Entitic vol] 87.7 fL Normal 83.5-101 [facility] Comment on above: Performed By: #### B MP, CBC #### [address] Mean Corpuscular HGB Conc 35.9 g/dL High 32.5-35.6 [facility] Comment on above: Performed By: #### B MP, CBC #### [place] [address] [place] Monocytes (Bld) [#/Vol] 0.7 10*3/uL Normal 0.0-0.8 [facility] Comment on above: Performed By: #### B MP, CBC #### [address] Monocytes/100 WBC (Bld) 9.9 % Normal . [facility] Comment on above: Performed By: #### B MP, CBC #### [address] Neutrophils (Bld) [#/Vol] 3.3 10*3/uL Normal 1.8-7.7 [facility] Comment on above: Performed By: #### B MP, CBC #### [address] Neutrophils/100 WBC (Bld) 49.3 % Normal . [facility] Comment on above: Performed By: #### B MP, CBC #### [place] [address] NRBC% 0.1 /100{WBC} Normal 0-0.5 [facility] Comment on above: Performed By: #### B MP, CBC #### [address] Platelet mean volume (Bld) [Entitic vol] 7.8 fL Normal 6.6-10.1 [facility] Comment on above: Performed By: #### B MP, CBC #### [address] Platelets (Bld) [#/Vol] 257 10*3/uL Normal 150-450 [facility] Comment on above: Performed By: #### B MP, CBC #### [address] RBC (Bld) [#/Vol] 2.90 10*6/uL Low 3.90-5.60 [facility] Comment on above: Performed By: #### B MP, CBC #### [address] WBC (Bld) [#/Vol] 6.7 10*3/uL Normal 4.1-10.5 [facility] Comment on above: Performed By: #### B MP, CBC #### [address] Comprehensive Metabolic Pane nitza 12-13-2022 Albumin [Mass/Vol] 4.0 g/dL Normal 3.5-5.7 [facility] Comment on above: Performed By: #### B MP, CBC #### [address] Albumin/Globulin [Mass ratio] 1.5 {ratio} Normal [facility] Comment on above: Performed By: #### B MP, CBC #### [address] ALP [Catalytic activity/Vol] 72 U/L Normal 34-104 [facility] Comment on above: Performed By: #### B MP, CBC #### [facility] [address] ALT [Catalytic activity/Vol] 25 U/L Normal 7-52 [facility] Comment on above: Performed By: #### B MP, CBC #### [facility] [address] Anion gap [Moles/Vol] 11.2 mmol/L Normal 6.0-15.0 [facility] Comment on above: Performed By: #### B MP, CBC #### [facility] [address] AST [Catalytic activity/Vol] 15 U/L Normal 13-39 [facility] Comment on above: Performed By: #### B MP, CBC #### [address] Bilirubin [Mass/Vol] 0.6 mg/dL Normal 0.3-1.0 [facility] Comment on above: Performed By: #### B MP, CBC #### [address] Calcium [Mass/Vol] 9.0 mg/dL Normal 8.6-10.3 [facility] Comment on above: Performed By: #### B MP, CBC #### [address] Chloride [Moles/Vol] 106 mmol/L Normal 98-107 [facility] Comment on above: Performed By: #### B MP, CBC #### [address] CO2 [Moles/Vol] 28.0 mmol/L Normal 21.0-31.0 [facility] Comment on above: Performed By: #### B MP, CBC #### [facility] [address] [place] [address] Creatinine [Mass/Vol] 1.18 mg/dL Normal 0.70-1.30 [facility] Comment on above: Performed By: #### B MP, CBC #### [facility] [address] [place] [address] [place] Creatinine Clr Calc Pharmacy 58.00 [facility] Comment on above: Performed By: #### B MP, CBC #### [facility] [address] [place] [address] [place] GFR/1.73 sq M.predicted MDRD (S/P/Bld) [Vol rate/Area] mL/min/{1.73_m2} [facility] Comment on above: Performed By: #### B MP, CBC #### [facility] [address] Globulin (S) [Mass/Vol] 2.7 g/dL [facility] Comment on above: Performed By: #### B MP, CBC #### [address] Glucose [Mass/Vol] 85 mg/dL Normal 70-100 [facility] Comment on above: Result Comment: [facility] Glucose Reference Range is dependent on time and content of last meal. Glucose of more than 200 mg/dL in a nonstressed, ambulatory subject supports the diagnosis of Diabetes Mellitus. ADA recommended reference range Performed By: #### B MP, CBC #### [address] Potassium [Moles/Vol] 3.2 mmol/L Low 3.5-5.1 [facility] Comment on above: Performed By: #### B MP, CBC #### [address] Protein [Mass/Vol] 6.7 g/dL Normal 6.4-8.9 [facility] Comment on above: Performed By: #### B MP, CBC #### [facility] [address] [place] [address] [place] Sodium [Moles/Vol] 142 mmol/L Normal 136-145 [facility] Comment on above: Performed By: #### B MP, CBC #### [address] Urea nitrogen [Mass/Vol] 20 mg/dL Normal 7-25 [facility] Comment on above: Performed By: #### B MP, CBC #### [facility] [address] [place] [id number] [facility] Globulin Calc (S) [Mass/Vol] Ordered By: Santosh Rivera on 12-13-2022 Globulin (S) [Mass/Vol] 2.7 g/dL [facility] Prealbuminon 12-13-2022 Prealbumin [Mass/Vol] 26.1 mg/dL Normal 17.0-34.0 [facility] Comment on above: Result Comment: PERF ORMED BY: [facility] [address] [place] [address] PATHOLOGIST COVERED [employer]SEM[employer] TERESA PATTERSON M.D. Performed By: #### B MP, CBC #### [facility] [address] Prealbumin [Mass/volume] in Serum or PlasmaOrdered By: Santosh Rivera on 12-13-2022 Prealbumin [Mass/Vol] 26.1 mg/dL 17.0-34.0 [facility] Protein [Mass/volume] in Ser um or PlasmaOrdered By: Santosh Rivera on 12-13-2022 Protein [Mass/Vol] 6.7 g/dL 6.4-8.9 [facility] Serum or plasma albumin/glob ulin mass ratioOrdered By: Santosh Rivera on 12-13-2022 Albumin/Globulin [Mass ratio] 1.5 {ratio} [facility] Glucose Glucometer (BldC) [M ass/Vol]Ordered By: Jose Martin Sen on 12-12-2022 Glucose [Mass/Vol] 146 mg/dL [facility] Comment on above: Random Glucose Refer ence Range is dependent on time and content of last meal. Glucose of more than 200 mg/dL in a nonstressed, ambulatory subject supports the diagnosis of Diabetes Mellitus. Glucose Poct Glucometerson 1 Glucose [Mass/Vol] 146 mg/dL Normal [facility] Comment on above: Result Comment: [place] om Glucose Reference Range is dependent on time and content of last meal. Glucose of more than 200 mg/dL in a nonstressed, ambulatory subject supports the diagnosis of Diabetes Mellitus. PERFORMED BY: [place] [address] PATHOLOGIST [employer] TERESA PATTERSON M.D. Performed By: #### F ER, [id number], FE and TIBC, MG #### [address] Basic Metabolic Panelon 11-26 Anion gap [Moles/Vol] 10.1 mmol/L Normal 6.0-15.0 [facility] Comment on above: Performed By: #### F ER, [id number], FE and TIBC, MG #### [address] Calcium [Mass/Vol] 9.2 mg/dL Normal 8.6-10.3 [facility] Comment on above: Performed By: #### F ER, [id number], FE and TIBC, MG #### [address] Chloride [Moles/Vol] 105 mmol/L Normal 98-107 [facility] Comment on above: Performed By: #### F ER, [id number], FE and TIBC, MG #### [address] CO2 [Moles/Vol] 30.4 mmol/L Normal 21.0-31.0 [facility] Comment on above: Performed By: #### F ER, [id number], FE and TIBC, MG #### [facility] [address] [place] [address] Creatinine [Mass/Vol] 1.06 mg/dL Normal 0.70-1.30 [facility] Comment on above: Performed By: #### F ER, [id number], FE and TIBC, MG #### [address] Creatinine Clr Calc Pharmacy 66.33 Normal [facility] Comment on above: Result Comment: PERF ORMED BY: [facility] [address] [place] [address] PATHOLOGIST [employer] TERESA PATTERSON M.D. Performed By: #### F ER, [id number], FE and TIBC, MG #### [facility] [address] GFR/1.73 sq M.predicted MDRD (S/P/Bld) [Vol rate/Area] mL/min/{1.73_m2} Normal [facility] Comment on above: Performed By: #### F ER, [id number], FE and TIBC, MG #### [facility] [address] Glucose [Mass/Vol] 99 mg/dL Normal 70-100 [facility] Comment on above: Result Comment: [facility] Glucose Reference Range is dependent on time and content of last meal. Glucose of more than 200 mg/dL in a nonstressed, ambulatory subject supports the diagnosis of Diabetes Mellitus. ADA recommended reference range Performed By: #### F ER, [id number], FE and TIBC, MG #### [facility] [address] Potassium [Moles/Vol] 3.5 mmol/L Normal 3.5-5.1 [facility] Comment on above: Performed By: #### F ER, [id number], FE and TIBC, MG #### [facility] [address] Sodium [Moles/Vol] 142 mmol/L Normal 136-145 [facility] Comment on above: Performed By: #### F ER, [id number], FE and TIBC, MG #### [facility] [address] [place] [address] [place] Urea nitrogen [Mass/Vol] 13 mg/dL Normal 7-25 [facility] Comment on above: Performed By: #### F ER, [id number], FE and TIBC, MG #### [facility] [address] [place] [address] [place] Basophils Auto (Bld) [#/Vol] Ordered By: Mindi Juan on 12-11-2022 Basophils (Bld) [#/Vol] 0.1 10*3/uL 0.0-0.2 [facility] Basophils/100 WBC Auto (Bld) Ordered By: Mindi Juan on 12-11-2022 Basophils/100 WBC (Bld) 1.2 % . [facility] Calcium [Mass/volume] in Ser um or PlasmaOrdered By: Mindi Juan on 12-11-2022 Calcium [Mass/Vol] 9.2 mg/dL 8.6-10.3 [facility] Carbon dioxide, total [Moles /volume] in Serum or PlasmaOrdered By: Mindi Juan on 12-11-2022 CO2 [Moles/Vol] 30.4 mmol/L 21.0-31.0 [facility] Chloride [Moles/volume] in S shani or PlasmaOrdered By: Mindi Juan on 12-11-2022 Chloride [Moles/Vol] 105 mmol/L 98-107 [facility] Complete Blood Count Auto Di ffon 12-11-2022 Basophils (Bld) [#/Vol] 0.1 10*3/uL Normal 0.0-0.2 [facility] Comment on above: Result Comment: PERF ORMED BY: [place] [address] PATHOLOGIST [employer] TERESA PATTERSON M.D. Performed By: #### F ER, [id number], FE and TIBC, MG #### [facility] [address] Basophils/100 WBC (Bld) 1.2 % Normal . [facility] Comment on above: Performed By: #### F ER, [id number], FE and TIBC, MG #### [facility] [address] Eosinophils (Bld) [#/Vol] 0.2 10*3/uL Normal 0.0-0.45 [facility] Comment on above: Performed By: #### F ER, [id number], FE and TIBC, MG #### [address] Eosinophils/100 WBC (Bld) 2.3 % Normal . [facility] Comment on above: Performed By: #### F ER, [id number], FE and TIBC, MG #### [address] Erythrocyte distribution width (RBC) [Ratio] 14.4 % Normal 12.0-14.8 [facility] Comment on above: Performed By: #### F ER, [id number], FE and TIBC, MG #### [address] Hematocrit (Bld) [Volume fraction] 24.6 % Low 38.8-50.0 [facility] Comment on above: Performed By: #### F ER, [id number], FE and TIBC, MG #### [address] Hemoglobin (Bld) [Mass/Vol] 9.1 g/dL Low 13.0-17.0 [facility] Comment on above: Performed By: #### F ER, [id number], FE and TIBC, MG #### [address] Lymphocytes (Bld) [#/Vol] 2.4 10*3/uL Normal 1.00-4.8 [facility] Comment on above: Performed By: #### F ER, [id number], FE and TIBC, MG #### [address] Lymphocytes/100 WBC (Bld) 30.3 % Normal . [facility] Comment on above: Performed By: #### F ER, [id number], FE and TIBC, MG #### [address] MCH (RBC) [Entitic mass] 31.9 pg Normal 27.5-35.2 [facility] Comment on above: Performed By: #### F ER, [id number], FE and TIBC, MG #### [address] MCV (RBC) [Entitic vol] 86.7 fL Normal 83.5-101 [facility] Comment on above: Performed By: #### F ER, [id number], FE and TIBC, MG #### [address] Mean Corpuscular HGB Conc 36.8 g/dL High 32.5-35.6 [facility] Comment on above: Performed By: #### F ER, [id number], FE and TIBC, MG #### [address] Monocytes (Bld) [#/Vol] 0.6 10*3/uL Normal 0.0-0.8 [facility] Comment on above: Performed By: #### F ER, [id number], FE and TIBC, MG #### [address] Monocytes/100 WBC (Bld) 7.5 % Normal . [facility] Comment on above: Performed By: #### F ER, [id number], FE and TIBC, MG #### [address] Neutrophils (Bld) [#/Vol] 4.7 10*3/uL Normal 1.8-7.7 [facility] Comment on above: Performed By: #### F ER, [id number], FE and TIBC, MG #### [address] Neutrophils/100 WBC (Bld) 58.7 % Normal . [facility] Comment on above: Performed By: #### F ER, [id number], FE and TIBC, MG #### [address] NRBC% 0.1 /100{WBC} Normal 0-0.5 [facility] Comment on above: Performed By: #### F ER, [id number], FE and TIBC, MG #### [facility] [address] Platelet mean volume (Bld) [Entitic vol] 7.4 fL Normal 6.6-10.1 [facility] Comment on above: Performed By: #### F ER, [id number], FE and TIBC, MG #### [facility] [address] Platelets (Bld) [#/Vol] 229 10*3/uL Normal 150-450 [facility] Comment on above: Performed By: #### F ER, [id number], FE and TIBC, MG #### [facility] [address] RBC (Bld) [#/Vol] 2.84 10*6/uL Low 3.90-5.60 [facility] Comment on above: Performed By: #### F ER, [id number], FE and TIBC, MG #### [facility] [address] WBC (Bld) [#/Vol] 8.1 10*3/uL Normal 4.1-10.5 [facility] Comment on above: Performed By: #### F ER, [id number], FE and TIBC, MG #### [address] Creatinine [Mass/volume] in Serum or PlasmaOrdered By: Mindi Juan on 12-11-2022 Creatinine [Mass/Vol] 1.06 mg/dL 0.70-1.30 [facility] Eosinophils Auto (Bld) [#/Vo l]Ordered By: Mindi Juan on 12-11-2022 Eosinophils (Bld) [#/Vol] 0.2 10*3/uL 0.0-0.45 [facility] Eosinophils/100 WBC Auto (Bl d)Ordered By: Mindi Juan on 12-11-2022 Eosinophils/100 WBC (Bld) 2.3 % . [facility] Erythrocyte distribution wid th Auto (RBC) [Ratio]Ordered By: Mindi Juan on 12-11-2022 Erythrocyte distribution width (RBC) [Ratio] 14.4 % 12.0-14.8 [facility] Glucose [Mass/volume] in Ser um or PlasmaOrdered By: Mindi Juan on 12-11-2022 Glucose [Mass/Vol] 99 mg/dL 70-100 [facility] Comment on above: ADA recommended refe rence rangeRandom Glucose Reference Range is dependent on time and content of last meal. Glucose of more than 200 mg/dL in a nonstressed, ambulatory subject supports the diagnosis of Diabetes Mellitus. Hematocrit Auto (Bld) [Volum e fraction]Ordered By: Mindi Juan on 12-11-2022 Hematocrit (Bld) [Volume fraction] 24.6 % 38.8-50.0 [facility] Hemoglobin [Mass/volume] in BloodOrdered By: Mindi Juan on 12-11-2022 Hemoglobin (Bld) [Mass/Vol] 9.1 g/dL 13.0-17.0 [facility] Leukocytes [#/volume] correc khadra for nucleated erythrocytes in Blood by Automated counOrdered By: Mindi Juan on 12-11-2022 WBC corrected for nucl RBC Auto (Bld) [#/Vol] 8.1 10*3/uL 4.1-10.5 [facility] Lymphocytes Auto (Bld) [#/Vo l]Ordered By: Mindi Juan on 12-11-2022 Lymphocytes (Bld) [#/Vol] 2.4 10*3/uL 1.00-4.8 [facility] Lymphocytes/100 WBC Auto (Bl d)Ordered By: Mindi Juan on 12-11-2022 Lymphocytes/100 WBC (Bld) 30.3 % . [facility] MCH Auto (RBC) [Entitic mass ]Ordered By: Mindi Juan on 12-11-2022 MCH (RBC) [Entitic mass] 31.9 pg 27.5-35.2 [facility] MCHC Auto (RBC) [Mass/Vol]Or dered By: Mindi Juan on 12-11-2022 MCHC (RBC) [Mass/Vol] 36.8 g/dL 32.5-35.6 [facility] MCV Auto (RBC) [Entitic vol] Ordered By: Mindi Juan on 12-11-2022 MCV (RBC) [Entitic vol] 86.7 fL 83.5-101 [facility] MR head/brain wo conon 12-11 MR head/brain wo con [facility] [place] [address] [place] [address] MRI Report Signed Patient: Viraj Doherty MR#: [id number] : 1955 Acct:[id number] Age/Sex: 67 / M ADM Date: 12/09/22 Loc: Room: [address] [place] [address] Type: ADM IN Attending Dr: Davey Harding [...] Jeff Pat M.D.12/11/2022 12:31 PM Dictation Location: [place] [address] Transcribed By: [facility] 12/11/22 1231 Dictated By: Jeff Pat II, MD 12/11/22 1218 Signed By: 12/11/22 1231 Normal [facility] Monocytes Auto (Bld) [#/Vol] Ordered By: Mindi Juan on 12-11-2022 Monocytes (Bld) [#/Vol] 0.6 10*3/uL 0.0-0.8 [facility] Monocytes/100 WBC Auto (Bld) Ordered By: Mindi Juan on 12-11-2022 Monocytes/100 WBC (Bld) 7.5 % . [facility] Neutrophils Auto (Bld) [#/Vo l]Ordered By: Mindi Juan on 12-11-2022 Neutrophils (Bld) [#/Vol] 4.7 10*3/uL 1.8-7.7 [facility] Neutrophils/100 WBC Auto (Bl d)Ordered By: Mindi Juan on 12-11-2022 Neutrophils/100 WBC (Bld) 58.7 % . [facility] No Panel InformationOrdered By: Mindi Juan on 12-11-2022 Estimated GFR (CKD-EPI) > 60.0 mL/Min [facility] Creatinine Clearance (Chem 66.33 [facility] Nucleated erythrocytes [Pres ence] in Blood by Automated countOrdered By: Mindi Juan on 12-11-2022 Nucleated RBC Auto Ql (Bld) 0.1 /100{WBC} 0-0.5 [facility] Platelet mean volume Auto (B ld) [Entitic vol]Ordered By: Mindi Juan on 12-11-2022 Platelet mean volume (Bld) [Entitic vol] 7.4 fL 6.6-10.1 [facility] Platelets Auto (Bld) [#/Vol] Ordered By: Mindi Carolinae on 12-11-2022 Platelets (Bld) [#/Vol] 229 10*3/uL 150-450 [facility] Potassium [Moles/volume] in Serum or PlasmaOrdered By: Mindi Juan on 12-11-2022 Potassium [Moles/Vol] 3.5 mmol/L 3.5-5.1 [facility] RBC Auto (Bld) [#/Vol]Ordere d By: Mindi Carolinae on 12-11-2022 RBC (Bld) [#/Vol] 2.84 10*6/uL 3.90-5.60 [facility] Serum or plasma anion gap de terminationOrdered By: Mindi Juan on 12-11-2022 Anion gap [Moles/Vol] 10.1 mmol/L 6.0-15.0 [facility] Sodium [Moles/volume] in Ser um or PlasmaOrdered By: Mindi Juan on 12-11-2022 Sodium [Moles/Vol] 142 mmol/L 136-145 [facility] Urea nitrogen [Mass/volume] in Serum or PlasmaOrdered By: Mindi Carolinae on 12-11-2022 Urea nitrogen [Mass/Vol] 13 mg/dL 7-25 [facility] WBC Auto (Bld) [#/Vol]Ordere d By: Mindi Juan on 12-11-2022 WBC (Bld) [#/Vol] 8.1 10*3/uL 4.1-10.5 [facility] Basic Metabolic Panelon 11-26 Anion gap [Moles/Vol] 10.2 mmol/L Normal 6.0-15.0 [facility] Comment on above: Performed By: #### F ER, [id number], FE and TIBC, MG #### [facility] [address] Calcium [Mass/Vol] 8.9 mg/dL Normal 8.6-10.3 [facility] Comment on above: Performed By: #### F ER, [id number], FE and TIBC, MG #### [facility] [address] Chloride [Moles/Vol] 106 mmol/L Normal 98-107 [facility] Comment on above: Performed By: #### F ER, [id number], FE and TIBC, MG #### [facility] [address] CO2 [Moles/Vol] 26.8 mmol/L Normal 21.0-31.0 [facility] Comment on above: Performed By: #### F ER, [id number], FE and TIBC, MG #### [facility] [address] Creatinine [Mass/Vol] 0.83 mg/dL Normal 0.70-1.30 [facility] Comment on above: Performed By: #### F ER, [id number], FE and TIBC, MG #### [facility] [address] [place] [address] [place] Creatinine Clr Calc Pharmacy 84.35 [facility] Comment on above: Result Comment: PERF ORMED BY: [place] [address] PATHOLOGIST [employer] TERESA PATTERSON M.D. Performed By: #### F ER, [id number], FE and TIBC, MG #### [facility] [address] [place] [address] [place] GFR/1.73 sq M.predicted MDRD (S/P/Bld) [Vol rate/Area] mL/min/{1.73_m2} [facility] Comment on above: Performed By: #### F ER, [id number], FE and TIBC, MG #### [facility] [address] Glucose [Mass/Vol] 100 mg/dL Normal 70-100 [facility] Comment on above: Result Comment: [place] Glucose Reference Range is dependent on time and content of last meal. Glucose of more than 200 mg/dL in a nonstressed, ambulatory subject supports the diagnosis of Diabetes Mellitus. ADA recommended reference range Performed By: #### F ER, [id number], FE and TIBC, MG #### [address] Potassium [Moles/Vol] 3.0 mmol/L Low 3.5-5.1 [facility] Comment on above: Performed By: #### F ER, [id number], FE and TIBC, MG #### [address] Sodium [Moles/Vol] 140 mmol/L Normal 136-145 [facility] Comment on above: Performed By: #### F ER, [id number], FE and TIBC, MG #### [address] Urea nitrogen [Mass/Vol] 16 mg/dL Normal 7-25 [facility] Comment on above: Performed By: #### F ER, [id number], FE and TIBC, MG #### [address] Complete Blood Count Auto Di ffon 12-10-2022 Basophils (Bld) [#/Vol] 0.1 10*3/uL Normal 0.0-0.2 [facility] Comment on above: Result Comment: PERF ORMED BY: [place] [address] PATHOLOGIST [employer] TERESA PATTERSON M.D. Performed By: #### F ER, [id number], FE and TIBC, MG #### [address] Basophils/100 WBC (Bld) 0.9 % Normal . [facility] Comment on above: Performed By: #### F ER, [id number], FE and TIBC, MG #### [address] Eosinophils (Bld) [#/Vol] 0.1 10*3/uL Normal 0.0-0.45 [facility] Comment on above: Performed By: #### F ER, [id number], FE and TIBC, MG #### [address] Eosinophils/100 WBC (Bld) 1.3 % Normal . [facility] Comment on above: Performed By: #### F ER, [id number], FE and TIBC, MG #### [address] Erythrocyte distribution width (RBC) [Ratio] 14.1 % Normal 12.0-14.8 [facility] Comment on above: Performed By: #### F ER, [id number], FE and TIBC, MG #### [address] Hematocrit (Bld) [Volume fraction] 23.2 % Low 38.8-50.0 [facility] Comment on above: Performed By: #### F ER, [id number], FE and TIBC, MG #### [address] Hemoglobin (Bld) [Mass/Vol] 8.4 g/dL Low 13.0-17.0 [facility] Comment on above: Performed By: #### F ER, [id number], FE and TIBC, MG #### [address] Lymphocytes (Bld) [#/Vol] 2.2 10*3/uL Normal 1.00-4.8 [facility] Comment on above: Performed By: #### F ER, [id number], FE and TIBC, MG #### [address] Lymphocytes/100 WBC (Bld) 24.2 % Normal . [facility] Comment on above: Performed By: #### F ER, [id number], FE and TIBC, MG #### [address] MCH (RBC) [Entitic mass] 31.3 pg Normal 27.5-35.2 [facility] Comment on above: Performed By: #### F ER, [id number], FE and TIBC, MG #### [address] MCV (RBC) [Entitic vol] 86.5 fL Normal 83.5-101 [facility] Comment on above: Performed By: #### F ER, [id number], FE and TIBC, MG #### [address] Mean Corpuscular HGB Conc 36.2 g/dL High 32.5-35.6 [facility] Comment on above: Performed By: #### F ER, [id number], FE and TIBC, MG #### [address] Monocytes (Bld) [#/Vol] 0.8 10*3/uL Normal 0.0-0.8 [facility] Comment on above: Performed By: #### F ER, [id number], FE and TIBC, MG #### [address] Monocytes/100 WBC (Bld) 9.1 % Normal . [facility] Comment on above: Performed By: #### F ER, [id number], FE and TIBC, MG #### [address] Neutrophils (Bld) [#/Vol] 5.8 10*3/uL Normal 1.8-7.7 [facility] Comment on above: Performed By: #### F ER, [id number], FE and TIBC, MG #### [address] Neutrophils/100 WBC (Bld) 64.5 % Normal . [facility] Comment on above: Performed By: #### F ER, [id number], FE and TIBC, MG #### [facility] [address] NRBC% 0.0 /100{WBC} Normal 0-0.5 [facility] Comment on above: Performed By: #### F ER, [id number], FE and TIBC, MG #### [address] Platelet mean volume (Bld) [Entitic vol] 7.6 fL Normal 6.6-10.1 [facility] Comment on above: Performed By: #### F ER, [id number], FE and TIBC, MG #### [address] Platelets (Bld) [#/Vol] 218 10*3/uL Normal 150-450 [facility] Comment on above: Performed By: #### F ER, [id number], FE and TIBC, MG #### [address] RBC (Bld) [#/Vol] 2.68 10*6/uL Low 3.90-5.60 [facility] Comment on above: Performed By: #### F ER, [id number], FE and TIBC, MG #### [address] WBC (Bld) [#/Vol] 8.9 10*3/uL Normal 4.1-10.5 [facility] Comment on above: Performed By: #### F ER, [id number], FE and TIBC, MG #### [address] Ferritinon 12-10-2022 Ferritin [Mass/Vol] 33.0 ng/mL Normal 23.9-336.2 [facility] Comment on above: Order Comment: Comme nt add Comment add Performed By: #### F ER, [id number], FE and TIBC, MG #### [address] Ferritin [Mass/volume] in Se rum or PlasmaOrdered By: Mindi Juan on 12-10-2022 Ferritin [Mass/Vol] 33.0 ng/mL 23.9-336.2 [facility] Folate [Mass/volume] in Seru m or PlasmaOrdered By: Mindi Juan on 12-10-2022 Folate [Mass/Vol] 10.4 ng/mL >5.9 [facility] Comment on above: Folate reference ran ge: >5.9 ng/mlThe WHO technical consultation on folate and vitamin [id number] has determined that folate concentrations lessthan 4 ng/ml are considered deficient. Hemoglobin and Hematocriton 12-10-2022 Hematocrit (Bld) [Volume fraction] 24.0 % Low 38.8-50.0 [facility] Comment on above: Result Comment: PERF ORMED BY: [place] [address] PATHOLOGIST [employer] TERESA PATTERSON M.D. Performed By: #### F ER, [id number], FE and TIBC, MG #### [facility] [address] Hemoglobin (Bld) [Mass/Vol] 8.6 g/dL Low 13.0-17.0 [facility] Comment on above: Performed By: #### F ER, [id number], FE and TIBC, MG #### [facility] [address] Iron [Mass/volume] in Serum or PlasmaOrdered By: Mindi Juan on 12-10-2022 Iron [Mass/Vol] 38 ug/dL 50-212 [facility] Iron and TIBC Profileon 11-26 % Iron Saturation 11.6 % Low 20-50 [facility] Comment on above: Order Comment: Comme nt add Comment add Performed By: #### F ER, [id number], FE and TIBC, MG #### [facility] [address] [place] [address] [facility] Iron [Mass/Vol] 38 ug/dL Low 50-212 [facility] Comment on above: Order Comment: Comme nt add Comment add Performed By: #### F ER, [id number], FE and TIBC, MG #### [facility] [address] Total Iron Binding Capacity 329 ug/dL Normal 255-450 [facility] Comment on above: Order Comment: Comme nt add Comment add Performed By: #### F ER, [id number], FE and TIBC, MG #### [facility] [address] Transferrin [Mass/Vol] 235 mg/dL Normal 203-362 [facility] Comment on above: Order Comment: Comme nt add Comment add Performed By: #### F ER, [id number], FE and TIBC, MG #### [facility] [address] [place] [address] Iron binding capacity [Mass/ volume] in Serum or PlasmaOrdered By: Mindi Caitye on 12-10-2022 Iron binding capacity [Mass/Vol] 329 ug/dL 255-450 [facility] Iron saturation [Mass Fracti on] in Serum or PlasmaOrdered By: Mindi Caitye on 12-10-2022 Iron saturation [Mass fraction] 11.6 % 20-50 [facility] Magnesiumon 12-10-2022 Magnesium [Mass/Vol] 1.9 mg/dL Normal 1.9-2.7 [facility] Comment on above: Order Comment: Comme nt add Comment add Performed By: #### F ER, [id number], FE and TIBC, MG #### [facility] [address] [place] [address] [place] Magnesium [Mass/volume] in S shani or PlasmaOrdered By: Mindi Kentonskfabe on 12-10-2022 Magnesium [Mass/Vol] 1.9 mg/dL 1.9-2.7 [facility] Transferrin [Mass/volume] in Serum or PlasmaOrdered By: Mindi Kentonskfabe on 12-10-2022 Transferrin [Mass/Vol] 235 mg/dL 203-362 [facility] Vit. B12/Folate Profileon Cobalamin (Vitamin B12) [Mass/Vol] 228 pg/mL Normal 180-914 [facility] Comment on above: Order Comment: Comme nt add Comment add Performed By: #### F ER, [id number], FE and TIBC, MG #### [address] Folate 10.4 ng/mL Normal >5.9 [facility] Comment on above: Order Comment: Comme nt add Comment add Result Comment: Lydia te reference range: >5.9 ng/ml The WHO technical consultation on folate and vitamin b12 deficiencies has determined that folate concentrations less than 4 ng/ml are considered deficient. PERFORMED BY: [place] [address] PATHOLOGIST [employer] TERESA PATTERSON M.D. Performed By: #### F ER, [id number], FE and TIBC, MG #### [address] Vitamin B12 ser/plasOrdered By: Mindi Juan on 12-10-2022 Cobalamin (Vitamin B12) [Mass/Vol] 228 pg/mL 180-914 [facility] Basic Metabolic Panelon 2 Anion gap [Moles/Vol] 6.5 mmol/L Normal 6.0-15.0 [facility] Comment on above: Performed By: #### F ER, [id number], FE and TIBC, MG #### [facility] [address] [place] [address] Calcium [Mass/Vol] 9.3 mg/dL Normal 8.6-10.3 [facility] Comment on above: Performed By: #### F ER, [id number], FE and TIBC, MG #### [address] Chloride [Moles/Vol] 105 mmol/L Normal 98-107 [facility] Comment on above: Performed By: #### F ER, [id number], FE and TIBC, MG #### [address] [place] [address] [place] CO2 [Moles/Vol] 28.0 mmol/L Normal 21.0-31.0 [facility] Comment on above: Performed By: #### F ER, [id number], FE and TIBC, MG #### [facility] [address] Creatinine [Mass/Vol] 1.15 mg/dL Normal 0.70-1.30 [facility] Comment on above: Performed By: #### F ER, [id number], FE and TIBC, MG #### [facility] [address] [place] [address] [place] Creatinine Clr Calc Pharmacy 59.85 [facility] Comment on above: Result Comment: PERF ORMED BY: [place] [address] PATHOLOGIST C[employer] TERESA PATTERSON M.D. Performed By: #### F ER, [id number], FE and TIBC, MG #### [facility] [address] GFR/1.73 sq M.predicted MDRD (S/P/Bld) [Vol rate/Area] mL/min/{1.73_m2} [facility] Comment on above: Performed By: #### F ER, [id number], FE and TIBC, MG #### [address] Glucose [Mass/Vol] 101 mg/dL High 70-100 [facility] Comment on above: Result Comment: [place] Glucose Reference Range is dependent on time and content of last meal. Glucose of more than 200 mg/dL in a nonstressed, ambulatory subject supports the diagnosis of Diabetes Mellitus. ADA recommended reference range Performed By: #### F ER, [id number], FE and TIBC, MG #### [facility] [address] Potassium [Moles/Vol] 3.5 mmol/L Normal 3.5-5.1 [facility] Comment on above: Performed By: #### F ER, [id number], FE and TIBC, MG #### [facility] [address] [place] [address] [place] Sodium [Moles/Vol] 136 mmol/L Normal 136-145 [facility] Comment on above: Performed By: #### F ER, [id number], FE and TIBC, MG #### [facility] [address] [place] [address] [place] Urea nitrogen [Mass/Vol] 29 mg/dL High 7-25 [facility] Comment on above: Performed By: #### F ER, [id number], FE and TIBC, MG #### [facility] [address] Calcium [Mass/volume] in Ser um or PlasmaOrdered By: Jose Martin Sen on 11-15-2022 Calcium [Mass/Vol] 9.3 mg/dL 8.6-10.3 [facility] Carbon dioxide, total [Moles /volume] in Serum or PlasmaOrdered By: Jose Martin eSn on 11-15-2022 CO2 [Moles/Vol] 28.0 mmol/L 21.0-31.0 [facility] Chloride [Moles/volume] in S shani or PlasmaOrdered By: Jose Martin Sen on 11-15-2022 Chloride [Moles/Vol] 105 mmol/L 98-107 [facility] Creatinine [Mass/volume] in Serum or PlasmaOrdered By: Jose Martin Sen on 11-15-2022 Creatinine [Mass/Vol] 1.15 mg/dL 0.70-1.30 [facility] Glucose [Mass/volume] in Ser um or PlasmaOrdered By: Jose Martin Sen on 11-15-2022 Glucose [Mass/Vol] 101 mg/dL 70-100 [facility] Comment on above: ADA recommended refe rence rangeRandom Glucose Reference Range is dependent on time and content of last meal. Glucose of more than 200 mg/dL in a nonstressed, ambulatory subject supports the diagnosis of Diabetes Mellitus. No Panel InformationOrdered By: Jose Martin Sen on 11-15-2022 Estimated GFR (CKD-EPI) > 60.0 mL/Min [facility] Creatinine Clearance (Chem 59.85 [facility] Potassium [Moles/volume] in Serum or PlasmaOrdered By: Jose Martin Sen on 11-15-2022 Potassium [Moles/Vol] 3.5 mmol/L 3.5-5.1 [facility] Serum or plasma anion gap de terminationOrdered By: Jose Martin Sen on 11-15-2022 Anion gap [Moles/Vol] 6.5 mmol/L 6.0-15.0 [facility] Sodium [Moles/volume] in Ser um or PlasmaOrdered By: Jose Martin Sen on 11-15-2022 Sodium [Moles/Vol] 136 mmol/L 136-145 [facility] Urea nitrogen [Mass/volume] in Serum or PlasmaOrdered By: Jose Martin Sen on 11-15-2022 Urea nitrogen [Mass/Vol] 29 mg/dL 7-25 [facility] Basic Metabolic Panelon 10-27 Anion gap [Moles/Vol] 10.7 mmol/L Normal 6.0-15.0 [facility] Comment on above: Performed By: #### F ER, [id number], FE and TIBC, MG #### [facility] [address] Calcium [Mass/Vol] 9.3 mg/dL Normal 8.6-10.3 [facility] Comment on above: Performed By: #### F ER, [id number], FE and TIBC, MG #### [facility] [address] [place] [address] [place] Chloride [Moles/Vol] 103 mmol/L Normal 98-107 [facility] Comment on above: Performed By: #### F ER, [id number], FE and TIBC, MG #### [facility] [address] [place] [address] [place] CO2 [Moles/Vol] 26.8 mmol/L Normal 21.0-31.0 [facility] Comment on above: Performed By: #### F ER, [id number], FE and TIBC, MG #### [facility] [address] Creatinine [Mass/Vol] 1.09 mg/dL Normal 0.70-1.30 [facility] Comment on above: Performed By: #### F ER, [id number], FE and TIBC, MG #### [facility] [address] [place] [address] [place] Creatinine Clr Calc Pharmacy 66.04 [facility] Comment on above: Result Comment: PERF ORMED BY: [place] [address] PATHOLOGIST [employer] TERESA PATTERSON M.D. Performed By: #### F ER, [id number], FE and TIBC, MG #### [address] GFR/1.73 sq M.predicted MDRD (S/P/Bld) [Vol rate/Area] mL/min/{1.73_m2} [facility] Comment on above: Performed By: #### F ER, [id number], FE and TIBC, MG #### [address] Glucose [Mass/Vol] 104 mg/dL High 70-100 [facility] Comment on above: Result Comment: [place] Glucose Reference Range is dependent on time and content of last meal. Glucose of more than 200 mg/dL in a nonstressed, ambulatory subject supports the diagnosis of Diabetes Mellitus. ADA recommended reference range Performed By: #### F ER, [id number], FE and TIBC, MG #### [place] [address] [place] Potassium [Moles/Vol] 3.5 mmol/L Normal 3.5-5.1 [facility] Comment on above: Performed By: #### F ER, [id number], FE and TIBC, MG #### [address] Sodium [Moles/Vol] 137 mmol/L Normal 136-145 [facility] Comment on above: Performed By: #### F ER, [id number], FE and TIBC, MG #### [facility] [address] Urea nitrogen [Mass/Vol] 27 mg/dL High 7-25 [facility] Comment on above: Performed By: #### F ER, [id number], FE and TIBC, MG #### [facility] [address] [place] [address] [place] Basophils Auto (Bld) [#/Vol] Ordered By: Jose Martin Sen on 11-08-2022 Basophils (Bld) [#/Vol] 0.1 10*3/uL 0.0-0.2 [facility] Basophils/100 WBC Auto (Bld) Ordered By: Jose Martin Sen on 11-08-2022 Basophils/100 WBC (Bld) 0.9 % . [facility] Complete Blood Count Auto Di ffon 11-08-2022 Basophils (Bld) [#/Vol] 0.1 10*3/uL Normal 0.0-0.2 [facility] Comment on above: Result Comment: PERF ORMED BY: [place] [address] PATHOLOGIST [employer] TERESA PATTERSON M.D. Performed By: #### F ER, [id number], FE and TIBC, MG #### [facility] [address] Basophils/100 WBC (Bld) 0.9 % Normal . [facility] Comment on above: Performed By: #### F ER, [id number], FE and TIBC, MG #### [facility] [address] [place] [address] [place] Eosinophils (Bld) [#/Vol] 0.1 10*3/uL Normal 0.0-0.45 [facility] Comment on above: Performed By: #### F ER, [id number], FE and TIBC, MG #### [facility] [address] [place] [address] [place] Eosinophils/100 WBC (Bld) 0.9 % Normal . [facility] Comment on above: Performed By: #### F ER, [id number], FE and TIBC, MG #### [address] Erythrocyte distribution width (RBC) [Ratio] 13.7 % Normal 12.0-14.8 [facility] Comment on above: Performed By: #### F ER, [id number], FE and TIBC, MG #### [address] Hematocrit (Bld) [Volume fraction] 43.8 % Normal 38.8-50.0 [facility] Comment on above: Performed By: #### F ER, [id number], FE and TIBC, MG #### [address] Hemoglobin (Bld) [Mass/Vol] 15.4 g/dL Normal 13.0-17.0 [facility] Comment on above: Performed By: #### F ER, [id number], FE and TIBC, MG #### [address] Lymphocytes (Bld) [#/Vol] 2.7 10*3/uL Normal 1.00-4.8 [facility] Comment on above: Performed By: #### F ER, [id number], FE and TIBC, MG #### [address] Lymphocytes/100 WBC (Bld) 28.3 % Normal . [facility] Comment on above: Performed By: #### F ER, [id number], FE and TIBC, MG #### [address] MCH (RBC) [Entitic mass] 30.5 pg Normal 27.5-35.2 [facility] Comment on above: Performed By: #### F ER, [id number], FE and TIBC, MG #### [address] MCV (RBC) [Entitic vol] 86.7 fL Normal 83.5-101 [facility] Comment on above: Performed By: #### F ER, [id number], FE and TIBC, MG #### [facility] [address] [place] [address] Mean Corpuscular HGB Conc 35.2 g/dL Normal 32.5-35.6 [facility] Comment on above: Performed By: #### F ER, [id number], FE and TIBC, MG #### [address] Monocytes (Bld) [#/Vol] 1.3 10*3/uL High 0.0-0.8 [facility] Comment on above: Performed By: #### F ER, [id number], FE and TIBC, MG #### [address] Monocytes/100 WBC (Bld) 13.4 % Normal . [facility] Comment on above: Performed By: #### F ER, [id number], FE and TIBC, MG #### [address] Neutrophils (Bld) [#/Vol] 5.3 10*3/uL Normal 1.8-7.7 [facility] Comment on above: Performed By: #### F ER, [id number], FE and TIBC, MG #### [address] Neutrophils/100 WBC (Bld) 56.5 % Normal . [facility] Comment on above: Performed By: #### F ER, [id number], FE and TIBC, MG #### [facility] [address] [place] [address] NRBC% 0.1 /100{WBC} Normal 0-0.5 [facility] Comment on above: Performed By: #### F ER, [id number], FE and TIBC, MG #### [address] Platelet mean volume (Bld) [Entitic vol] 9.0 fL Normal 6.6-10.1 [facility] Comment on above: Performed By: #### F ER, [id number], FE and TIBC, MG #### [facility] [address] Platelets (Bld) [#/Vol] 224 10*3/uL Normal 150-450 [facility] Comment on above: Performed By: #### F ER, [id number], FE and TIBC, MG #### [facility] [address] RBC (Bld) [#/Vol] 5.05 10*6/uL Normal 3.90-5.60 [facility] Comment on above: Performed By: #### F ER, [id number], FE and TIBC, MG #### [facility] [address] WBC (Bld) [#/Vol] 9.4 10*3/uL Normal 4.1-10.5 [facility] Comment on above: Performed By: #### F ER, [id number], FE and TIBC, MG #### [facility] [address] Eosinophils Auto (Bld) [#/Vo l]Ordered By: Jose Martin Sen on 11-08-2022 Eosinophils (Bld) [#/Vol] 0.1 10*3/uL 0.0-0.45 [facility] Eosinophils/100 WBC Auto (Bl d)Ordered By: Jose Martin Sen on 11-08-2022 Eosinophils/100 WBC (Bld) 0.9 % . [facility] Erythrocyte distribution wid th Auto (RBC) [Ratio]Ordered By: Jose Martin Sen on 11-08-2022 Erythrocyte distribution width (RBC) [Ratio] 13.7 % 12.0-14.8 [facility] Hematocrit Auto (Bld) [Volum e fraction]Ordered By: Jose Martin Sen on 11-08-2022 Hematocrit (Bld) [Volume fraction] 43.8 % 38.8-50.0 [facility] Hemoglobin [Mass/volume] in BloodOrdered By: Jose Martin Sen on 11-08-2022 Hemoglobin (Bld) [Mass/Vol] 15.4 g/dL 13.0-17.0 [facility] Leukocytes [#/volume] correc khadra for nucleated erythrocytes in Blood by Automated counOrdered By: Jose Martin Sen on 11-08-2022 WBC corrected for nucl RBC Auto (Bld) [#/Vol] 9.4 10*3/uL 4.1-10.5 [facility] Lymphocytes Auto (Bld) [#/Vo l]Ordered By: Jose Martin Sen on 11-08-2022 Lymphocytes (Bld) [#/Vol] 2.7 10*3/uL 1.00-4.8 [facility] Lymphocytes/100 WBC Auto (Bl d)Ordered By: Jose Martin Sen on 11-08-2022 Lymphocytes/100 WBC (Bld) 28.3 % . [facility] MCH Auto (RBC) [Entitic mass ]Ordered By: Jose Martin Sen on 11-08-2022 MCH (RBC) [Entitic mass] 30.5 pg 27.5-35.2 [facility] MCHC Auto (RBC) [Mass/Vol]Or dered By: Jose Martin Sen on 11-08-2022 MCHC (RBC) [Mass/Vol] 35.2 g/dL 32.5-35.6 [facility] MCV Auto (RBC) [Entitic vol] Ordered By: Jose Martin Sen on 11-08-2022 MCV (RBC) [Entitic vol] 86.7 fL 83.5-101 [facility] Monocytes Auto (Bld) [#/Vol] Ordered By: Jose Martin Sen on 11-08-2022 Monocytes (Bld) [#/Vol] 1.3 10*3/uL 0.0-0.8 [facility] Monocytes/100 WBC Auto (Bld) Ordered By: Jose Martin Sen on 11-08-2022 Monocytes/100 WBC (Bld) 13.4 % . [facility] Neutrophils Auto (Bld) [#/Vo l]Ordered By: Jose Martin Sen on 11-08-2022 Neutrophils (Bld) [#/Vol] 5.3 10*3/uL 1.8-7.7 [facility] Neutrophils/100 WBC Auto (Bl d)Ordered By: Jose Martin Sen on 11-08-2022 Neutrophils/100 WBC (Bld) 56.5 % . [facility] Nucleated erythrocytes [Pres ence] in Blood by Automated countOrdered By: Jose Martin Sen on 11-08-2022 Nucleated RBC Auto Ql (Bld) 0.1 /100{WBC} 0-0.5 [facility] Platelet mean volume Auto (B ld) [Entitic vol]Ordered By: Jose Martin Sen on 11-08-2022 Platelet mean volume (Bld) [Entitic vol] 9.0 fL 6.6-10.1 [facility] Platelets Auto (Bld) [#/Vol] Ordered By: Jose Martin Sen on 11-08-2022 Platelets (Bld) [#/Vol] 224 10*3/uL 150-450 [facility] RBC Auto (Bld) [#/Vol]Ordere d By: Jose Martin Sen on 11-08-2022 RBC (Bld) [#/Vol] 5.05 10*6/uL 3.90-5.60 [facility] WBC Auto (Bld) [#/Vol]Ordere d By: Jose Martin Sen on 11-08-2022 WBC (Bld) [#/Vol] 9.4 10*3/uL 4.1-10.5 [facility] Basic Metabolic Panelon 10-27 Anion gap [Moles/Vol] 10.7 mmol/L Normal 6.0-15.0 [facility] Comment on above: Performed By: #### F ER, [id number], FE and TIBC, MG #### [facility] [address] [place] [address] [place] Calcium [Mass/Vol] 9.4 mg/dL Normal 8.6-10.3 [facility] Comment on above: Performed By: #### F ER, [id number], FE and TIBC, MG #### [facility] [address] [place] [id number] [place] Chloride [Moles/Vol] 100 mmol/L Normal 98-107 [facility] Comment on above: Performed By: #### F ER, [id number], FE and TIBC, MG #### [facility] [address] CO2 [Moles/Vol] 28.8 mmol/L Normal 21.0-31.0 [facility] Comment on above: Performed By: #### F ER, [id number], FE and TIBC, MG #### [facility] [address] Creatinine [Mass/Vol] 1.13 mg/dL Normal 0.70-1.30 [facility] Comment on above: Performed By: #### F ER, [id number], FE and TIBC, MG #### [facility] [address] Creatinine Clr Calc Pharmacy 63.70 [facility] Comment on above: Result Comment: PERF ORMED BY: [place] [address] PATHOLOGIST [employer] TERESA PATTERSON M.D. Performed By: #### F ER, [id number], FE and TIBC, MG #### [facility] [address] GFR/1.73 sq M.predicted MDRD (S/P/Bld) [Vol rate/Area] mL/min/{1.73_m2} [facility] Comment on above: Performed By: #### F ER, [id number], FE and TIBC, MG #### [facility] [address] Glucose [Mass/Vol] 105 mg/dL High 70-100 [facility] Comment on above: Result Comment: [place] om Glucose Reference Range is dependent on time and content of last meal. Glucose of more than 200 mg/dL in a nonstressed, ambulatory subject supports the diagnosis of Diabetes Mellitus. ADA recommended reference range Performed By: #### F ER, [id number], FE and TIBC, MG #### [facility] [address] Potassium [Moles/Vol] 3.5 mmol/L Normal 3.5-5.1 [facility] Comment on above: Performed By: #### F ER, [id number], FE and TIBC, MG #### [facility] [address] Sodium [Moles/Vol] 136 mmol/L Normal 136-145 [facility] Comment on above: Performed By: #### F ER, [id number], FE and TIBC, MG #### [facility] [address] Urea nitrogen [Mass/Vol] 28 mg/dL High 7-25 [facility] Comment on above: Performed By: #### F ER, [id number], FE and TIBC, MG #### [address] Bilirubin Test strip Ql (U)O rdered By: Jose Martin Sen on 11-07-2022 Bilirubin Ql (U) Negative Negative [facility] CT head/brain wo conon 11-07 CT head/brain wo con [facility] [place] [address] [place] [address] CT Scan Report Signed Patient: Viraj Doherty MR#: [id number] : 1955 Acct:[id number] Age/Sex: 67 / M ADM Date: 11/02/22 Loc: Room: [address] [place] [address] Type: ADM IN Attending Dr: Jose Martin [...] Jha Jr., KatODiaz11/07/2022 3:24 PM Dictation Location: [place] [address] Transcribed By: [facility] 11/07/22 152 Dictated By: Jose Martin Jha Jr, DO 11/07/22 1521 Signed By: 11/07/22 1524 Normal [facility] Color Auto (U)Ordered By: Karen Sen on 11-07-2022 Color (U) Yellow Yellow [facility] Complete Blood Count Auto Di ffon 11-07-2022 Basophils (Bld) [#/Vol] 0.1 10*3/uL Normal 0.0-0.2 [facility] Comment on above: Result Comment: PERF ORMED BY: [place] [address] PATHOLOGIST [employer] TERESA PATTERSON M.D. Performed By: #### F ER, [id number], FE and TIBC, MG #### [facility] [address] [place] [address] Basophils/100 WBC (Bld) 1.1 % Normal . [facility] Comment on above: Performed By: #### F ER, [id number], FE and TIBC, MG #### [facility] [address] Eosinophils (Bld) [#/Vol] 0.0 10*3/uL Normal 0.0-0.45 [facility] Comment on above: Performed By: #### F ER, [id number], FE and TIBC, MG #### [address] Eosinophils/100 WBC (Bld) 0.4 % Normal . [facility] Comment on above: Performed By: #### F ER, [id number], FE and TIBC, MG #### [address] Erythrocyte distribution width (RBC) [Ratio] 14.2 % Normal 12.0-14.8 [facility] Comment on above: Performed By: #### F ER, [id number], FE and TIBC, MG #### [address] Hematocrit (Bld) [Volume fraction] 45.3 % Normal 38.8-50.0 [facility] Comment on above: Performed By: #### F ER, [id number], FE and TIBC, MG #### [address] Hemoglobin (Bld) [Mass/Vol] 15.9 g/dL Normal 13.0-17.0 [facility] Comment on above: Performed By: #### F ER, [id number], FE and TIBC, MG #### [address] Lymphocytes (Bld) [#/Vol] 1.7 10*3/uL Normal 1.00-4.8 [facility] Comment on above: Performed By: #### F ER, [id number], FE and TIBC, MG #### [address] Lymphocytes/100 WBC (Bld) 21.8 % Normal . [facility] Comment on above: Performed By: #### F ER, [id number], FE and TIBC, MG #### [address] MCH (RBC) [Entitic mass] 30.6 pg Normal 27.5-35.2 [facility] Comment on above: Performed By: #### F ER, [id number], FE and TIBC, MG #### [address] MCV (RBC) [Entitic vol] 87.4 fL Normal 83.5-101 [facility] Comment on above: Performed By: #### F ER, [id number], FE and TIBC, MG #### [address] Mean Corpuscular HGB Conc 35.1 g/dL Normal 32.5-35.6 [facility] Comment on above: Performed By: #### F ER, [id number], FE and TIBC, MG #### [address] Monocytes (Bld) [#/Vol] 1.0 10*3/uL High 0.0-0.8 [facility] Comment on above: Performed By: #### F ER, [id number], FE and TIBC, MG #### [address] Monocytes/100 WBC (Bld) 12.9 % Normal . [facility] Comment on above: Performed By: #### F ER, [id number], FE and TIBC, MG #### [address] Neutrophils (Bld) [#/Vol] 4.9 10*3/uL Normal 1.8-7.7 [facility] Comment on above: Performed By: #### F ER, [id number], FE and TIBC, MG #### [address] Neutrophils/100 WBC (Bld) 63.8 % Normal . [facility] Comment on above: Performed By: #### F ER, [id number], FE and TIBC, MG #### [address] NRBC% 0.1 /100{WBC} Normal 0-0.5 [facility] Comment on above: Performed By: #### F ER, [id number], FE and TIBC, MG #### [facility] [address] Platelet mean volume (Bld) [Entitic vol] 8.5 fL Normal 6.6-10.1 [facility] Comment on above: Performed By: #### F ER, [id number], FE and TIBC, MG #### [facility] [address] Platelets (Bld) [#/Vol] 215 10*3/uL Normal 150-450 [facility] Comment on above: Performed By: #### F ER, [id number], FE and TIBC, MG #### [facility] [address] RBC (Bld) [#/Vol] 5.19 10*6/uL Normal 3.90-5.60 [facility] Comment on above: Performed By: #### F ER, [id number], FE and TIBC, MG #### [facility] [address] WBC (Bld) [#/Vol] 7.6 10*3/uL Normal 4.1-10.5 [facility] Comment on above: Performed By: #### F ER, [id number], FE and TIBC, MG #### [facility] [address] Ketones Auto test strip (U) [Mass/Vol]Ordered By: Jose Martin Sen on 11-07-2022 Ketones (U) [Mass/Vol] Negative Negative [facility] Nitrite Test strip Ql (U)Ord ered By: Jose Martin Sen on 11-07-2022 Nitrite Ql (U) Negative Negative [facility] Potassiumon 11-07-2022 Potassium [Moles/Vol] 3.8 mmol/L Normal 3.5-5.1 [facility] Comment on above: Result Comment: PERF ORMED BY: [place] [address] PATHOLOGIST [employer] TERESA PATTERSON M.D. Performed By: #### F ER, [id number], FE and TIBC, MG #### [facility] [address] Protein Auto test strip (U) [Mass/Vol]Ordered By: Jose Martin Mckinley on 11-07-2022 Protein (U) [Mass/Vol] Negative Negative [facility] Specific gravity Auto test s trip (U) [Rel density]Ordered By: Jose Martin Mckinley on 11-07-2022 Specific gravity (U) [Rel density] 1.014 1.001-1.030 [facility] Urinalysison 11-07-2022 Appearance (U) Clear Normal Clear [facility] Comment on above: Order Comment: Comme nt add Comment add Performed By: #### F ER, [id number], FE and TIBC, MG #### [facility] [address] [place] [address] Bilirubin,Urine Negative Normal Negative [facility] Comment on above: Order Comment: Comme nt add Comment add Performed By: #### F ER, [id number], FE and TIBC, MG #### [facility] [address] Color (U) Yellow Normal Yellow [facility] Comment on above: Order Comment: Comme nt add Comment add Performed By: #### F ER, [id number], FE and TIBC, MG #### [facility] [address] Glucose Ql (U) Normal Normal Normal [facility] Comment on above: Order Comment: Comme nt add Comment add Performed By: #### F ER, [id number], FE and TIBC, MG #### [facility] [address] [place] [address] [place] Ketones Ql (U) Negative Normal Negative [facility] Comment on above: Order Comment: Comme nt add Comment add Performed By: #### F ER, [id number], FE and TIBC, MG #### [facility] [address] [place] [address] [place] Leukocyte esterase Test strip Ql (U) Negative Normal Negative [facility] Comment on above: Order Comment: Comme nt add Comment add Performed By: #### F ER, [id number], FE and TIBC, MG #### [address] Nitrite,Urine Negative Normal Negative [facility] Comment on above: Order Comment: Comme nt add Comment add Performed By: #### F ER, [id number], FE and TIBC, MG #### [address] Occult Blood,Urine Negative Normal Negative [facility] Comment on above: Order Comment: Comme nt add Comment add Result Comment: PERF ORMED BY: [place] [address] PATHOLOGIST C[employer] TERESA PATTERSON M.D. Performed By: #### F ER, [id number], FE and TIBC, MG #### [address] pH (U) 5.5 [pH] Normal 5.0-9.0 [facility] Comment on above: Order Comment: Comme nt add Comment add Performed By: #### F ER, [id number], FE and TIBC, MG #### [address] Protein,Urine Negative Normal Negative [facility] Comment on above: Order Comment: Comme nt add Comment add Performed By: #### F ER, [id number], FE and TIBC, MG #### [address] Specificy Caret,Urine 1.014 Normal 1.001-1.030 [facility] Comment on above: Order Comment: Comme nt add Comment add Performed By: #### F ER, [id number], FE and TIBC, MG #### [address] Urobilinogen,Urine Normal Normal Normal [facility] Comment on above: Order Comment: Comme nt add Comment add Performed By: #### F ER, [id number], FE and TIBC, MG #### [facility] [address] Urine clarity by refractomet ry automatedOrdered By: Jose Martin Sen on 11-07-2022 Clarity Refractometry automated (U) Clear Clear [facility] Urine glucose measurement by automated test strip (mass/volume)Ordered By: Jose Martin Sen on 11-07-2022 Glucose Auto test strip (U) [Mass/Vol] Normal mg/dL Normal [facility] Urine hemoglobin detection b y automated test stripOrdered By: Jose Martin Sen on 11-07-2022 Hemoglobin Auto test strip Ql (U) Negative Negative [facility] Urine leukocyte esterase det ection by automated test stripOrdered By: Jose Martin Sen on 11-07-2022 Leukocyte esterase Auto test strip Ql (U) Negative Negative [facility] Urobilinogen Auto test strip (U) [Mass/Vol]Ordered By: Jose Martin Sen on 11-07-2022 Urobilinogen (U) [Mass/Vol] Normal mg/dL Normal [facility] pH Auto test strip (U)Ordere d By: Jose Martin Sen on 11-07-2022 pH (U) 5.5 [pH] 5.0-9.0 [facility] Basic Metabolic Panelon 10-27 Anion gap [Moles/Vol] 11.0 mmol/L Normal 6.0-15.0 [facility] Comment on above: Performed By: #### F ER, [id number], FE and TIBC, MG #### [facility] [address] [place] [address] [place] Calcium [Mass/Vol] 9.2 mg/dL Normal 8.6-10.3 [facility] [place] Comment on above: Performed By: #### F ER, [id number], FE and TIBC, MG #### [facility] [address] [place] [address] [place] Chloride [Moles/Vol] 105 mmol/L Normal 98-107 [facility] Comment on above: Performed By: #### F ER, [id number], FE and TIBC, MG #### [facility] [address] CO2 [Moles/Vol] 24.3 mmol/L Normal 21.0-31.0 [facility] Comment on above: Performed By: #### F ER, [id number], FE and TIBC, MG #### [facility] [address] Creatinine [Mass/Vol] 1.14 mg/dL Normal 0.70-1.30 [facility] Comment on above: Performed By: #### F ER, [id number], FE and TIBC, MG #### [facility] [address] [place] [address] [place] Creatinine Clr Calc Pharmacy 63.15 [facility] Comment on above: Result Comment: PERF ORMED BY: [place] [address] PATHOLOGIST [employer] TERESA PATTERSON M.D. Performed By: #### F ER, [id number], FE and TIBC, MG #### [facility] [address] [place] [address] [place] GFR/1.73 sq M.predicted MDRD (S/P/Bld) [Vol rate/Area] mL/min/{1.73_m2} [facility] Comment on above: Performed By: #### F ER, [id number], FE and TIBC, MG #### [facility] [address] Glucose [Mass/Vol] 104 mg/dL High 70-100 [facility] [place] Comment on above: Result Comment: [place] Glucose Reference Range is dependent on time and content of last meal. Glucose of more than 200 mg/dL in a nonstressed, ambulatory subject supports the diagnosis of Diabetes Mellitus. ADA recommended reference range Performed By: #### F ER, [id number], FE and TIBC, MG #### [facility] [address] Potassium [Moles/Vol] 3.3 mmol/L Low 3.5-5.1 [facility] Comment on above: Performed By: #### F ER, [id number], FE and TIBC, MG #### [facility] [address] Sodium [Moles/Vol] 137 mmol/L Normal 136-145 [facility] [place] Comment on above: Performed By: #### F ER, [id number], FE and TIBC, MG #### [facility] [address] Urea nitrogen [Mass/Vol] 35 mg/dL High 7-25 [facility] Comment on above: Performed By: #### F ER, [id number], FE and TIBC, MG #### [facility] [address] Basic Metabolic Panelon 09--2022 Anion gap [Moles/Vol] 11.0 mmol/L Normal 6.0-15.0 [facility] Comment on above: Performed By: #### B MP, CBC #### [address] Calcium [Mass/Vol] 9.3 mg/dL Normal 8.6-10.3 [facility] [place] Comment on above: Performed By: #### B MP, CBC #### [address] Chloride [Moles/Vol] 105 mmol/L Normal 98-107 [facility] Comment on above: Performed By: #### B MP, CBC #### [address] CO2 [Moles/Vol] 23.1 mmol/L Normal 21.0-31.0 [facility] Comment on above: Performed By: #### B MP, CBC #### [facility] [address] Creatinine [Mass/Vol] 1.42 mg/dL High 0.70-1.30 [facility] Comment on above: Performed By: #### B MP, CBC #### [facility] [address] Creatinine Clr Calc Pharmacy 50.69 Normal [facility] Comment on above: Result Comment: PERF ORMED BY: [place] [address] PATHOLOGIST [employer]ED [employer] TERESA PATTERSON M.D. Performed By: #### B MP, CBC #### [facility] [address] [place] [address] [place] GFR/1.73 sq M.predicted MDRD (S/P/Bld) [Vol rate/Area] 53.489 mL/min/{1.73_m2} Normal [facility] Comment on above: Performed By: #### B MP, CBC #### [address] Glucose [Mass/Vol] 100 mg/dL Normal 70-100 [facility] [place] Comment on above: Result Comment: [facility] Glucose Reference Range is dependent on time and content of last meal. Glucose of more than 200 mg/dL in a nonstressed, ambulatory subject supports the diagnosis of Diabetes Mellitus. ADA recommended reference range Performed By: #### B MP, CBC #### [address] Potassium [Moles/Vol] 3.1 mmol/L Low 3.5-5.1 [facility] Comment on above: Performed By: #### B MP, CBC #### [place] [address] [place] Sodium [Moles/Vol] 136 mmol/L Normal 136-145 [facility] [place] Comment on above: Performed By: #### B MP, CBC #### [facility] [address] [place] [address] [place] Urea nitrogen [Mass/Vol] 37 mg/dL High 7-25 [facility] Comment on above: Performed By: #### B MP, CBC #### [address] Basic Metabolic Panelon 09-0 -2022 Anion gap [Moles/Vol] 12.5 mmol/L Normal 6.0-15.0 [facility] Comment on above: Performed By: #### F ER, [id number], FE and TIBC, MG #### [facility] [address] Calcium [Mass/Vol] 9.3 mg/dL Normal 8.6-10.3 [facility] [place] Comment on above: Performed By: #### F ER, [id number], FE and TIBC, MG #### [facility] [address] [place] [address] [place] Chloride [Moles/Vol] 104 mmol/L Normal 98-107 [facility] Comment on above: Performed By: #### F ER, [id number], FE and TIBC, MG #### [facility] [address] CO2 [Moles/Vol] 23.7 mmol/L Normal 21.0-31.0 [facility] Comment on above: Performed By: #### F ER, [id number], FE and TIBC, MG #### [facility] [address] Creatinine [Mass/Vol] 1.26 mg/dL Normal 0.70-1.30 [facility] Comment on above: Performed By: #### F ER, [id number], FE and TIBC, MG #### [facility] [address] Creatinine Clr Calc Pharmacy 58.54 [facility] Comment on above: Performed By: #### F ER, [id number], FE and TIBC, MG #### [facility] [address] GFR/1.73 sq M.predicted MDRD (S/P/Bld) [Vol rate/Area] mL/min/{1.73_m2} [facility] Comment on above: Performed By: #### F ER, [id number], FE and TIBC, MG #### [facility] [address] Glucose [Mass/Vol] 102 mg/dL High 70-100 [facility] [place] Comment on above: Result Comment: [place] Glucose Reference Range is dependent on time and content of last meal. Glucose of more than 200 mg/dL in a nonstressed, ambulatory subject supports the diagnosis of Diabetes Mellitus. ADA recommended reference range Performed By: #### F ER, [id number], FE and TIBC, MG #### [facility] [address] Potassium [Moles/Vol] 3.2 mmol/L Low 3.5-5.1 [facility] Comment on above: Performed By: #### F ER, [id number], FE and TIBC, MG #### [facility] [address] Sodium [Moles/Vol] 137 mmol/L Normal 136-145 [facility] [place] Comment on above: Performed By: #### F ER, [id number], FE and TIBC, MG #### [facility] [address] Urea nitrogen [Mass/Vol] 29 mg/dL High 7-25 [facility] Comment on above: Performed By: #### F ER, [id number], FE and TIBC, MG #### [facility] [address] Magnesiumon 11-04-2022 Magnesium [Mass/Vol] 2.0 mg/dL Normal 1.9-2.7 [facility] Comment on above: Result Comment: PERF ORMED BY: [place] [address] PATHOLOGIST [employer] TERESA PATTERSON M.D. Performed By: #### F ER, [id number], FE and TIBC, MG #### [facility] [address] [place] [address] [place] Magnesium [Mass/volume] in S shani or PlasmaOrdered By: Sara Osorio on 11-04-2022 Magnesium [Mass/Vol] 2.0 mg/dL 1.9-2.7 [facility] Alanine aminotransferase [En zymatic activity/volume] in Serum or PlasmaOrdered By: Janice Altamirano on 11-03-2022 ALT [Catalytic activity/Vol] 17 U/L 7-52 [facility] Albumin [Mass/volume] in Ser um or Plasma by Bromocresol green (BCG) dye binding methoOrdered By: Janice Altamirano on 11-03-2022 Albumin BCG dye [Mass/Vol] 4.5 g/dL 3.5-5.7 [facility] Alkaline phosphatase [Enzyma tic activity/volume] in Serum or PlasmaOrdered By: Janice Altamirano on 11-03-2022 ALP [Catalytic activity/Vol] 64 U/L 34-104 [facility] Anisocytosis LM Ql (Bld)Orde red By: Janice Altamirano on 11-03-2022 Anisocytosis Ql (Bld) Slight [facility] Aspartate aminotransferase [ Enzymatic activity/volume] in Serum or PlasmaOrdered By: Janice Altamirano on 11-03-2022 AST [Catalytic activity/Vol] 19 U/L 13-39 [facility] Bilirubin.total [Mass/volume ] in Serum or PlasmaOrdered By: Janice Altamirano on 11-03-2022 Bilirubin [Mass/Vol] 1.6 mg/dL 0.3-1.0 [facility] Comment on above: Samples from patient s who have taken Naproxen have shown spurious elevation in Total Bilirubin levels. A metabolite of Naproxen, O-desmethylnaproxen, has been shown to interfere with the Jendrjacquelynik-Grof method for measuring Total Bilirubin. Comprehensive Metabolic Pane nitza 11-03-2022 Albumin [Mass/Vol] 4.5 g/dL Normal 3.5-5.7 [facility] [place] Comment on above: Performed By: #### S CAN CBC, PAB, CMP #### [facility] [address] [place] [address] [place] Albumin/Globulin [Mass ratio] 1.5 {ratio} Normal [facility] Comment on above: Performed By: #### S CAN CBC, PAB, CMP #### [facility] [address] [place] [id number] [place] ALP [Catalytic activity/Vol] 64 U/L Normal 34-104 [facility] Comment on above: Performed By: #### S CAN CBC, PAB, CMP #### [facility] [address] [place] [id number] [facility] ALT [Catalytic activity/Vol] 17 U/L Normal 7-52 [facility] Comment on above: Performed By: #### S CAN CBC, PAB, CMP #### [facility] [address] Anion gap [Moles/Vol] 10.1 mmol/L Normal 6.0-15.0 [facility] Comment on above: Performed By: #### S CAN CBC, PAB, CMP #### [facility] [address] AST [Catalytic activity/Vol] 19 U/L Normal 13-39 [facility] Comment on above: Performed By: #### S CAN CBC, PAB, CMP #### [address] Bilirubin [Mass/Vol] 1.6 mg/dL High 0.3-1.0 [facility] Comment on above: Result Comment: Samp les from patients who have taken Naproxen have shown spurious elevation in Total Bilirubin levels. A metabolite of Naproxen, O-desmethylnaproxen, has been shown to interfere with the Jendrassik-Grof method for measuring Total Bilirubin. Performed By: #### S CAN CBC, PAB, CMP #### [facility] [address] Calcium [Mass/Vol] 9.6 mg/dL Normal 8.6-10.3 [facility] [place] Comment on above: Performed By: #### S CAN CBC, PAB, CMP #### [facility] [address] [place] [id number] [place] Chloride [Moles/Vol] 102 mmol/L Normal 98-107 [facility] Comment on above: Performed By: #### S CAN CBC, PAB, CMP #### [facility] [address] [place] [id number] [place] CO2 [Moles/Vol] 28.3 mmol/L Normal 21.0-31.0 [facility] Comment on above: Performed By: #### S CAN CBC, PAB, CMP #### [facility] [address] Creatinine [Mass/Vol] 1.21 mg/dL Normal 0.70-1.30 [facility] Comment on above: Performed By: #### S CAN CBC, PAB, CMP #### [facility] [address] [place] [address] [place] Creatinine Clr Calc Pharmacy 60.96 [facility] Comment on above: Performed By: #### S CAN CBC, PAB, CMP #### [facility] [address] [place] [address] [place] GFR/1.73 sq M.predicted MDRD (S/P/Bld) [Vol rate/Area] mL/min/{1.73_m2} [facility] Comment on above: Performed By: #### S CAN CBC, PAB, CMP #### [facility] [address] Globulin (S) [Mass/Vol] 3.1 g/dL [facility] Comment on above: Performed By: #### S CAN CBC, PAB, CMP #### [address] Glucose [Mass/Vol] 95 mg/dL Normal 70-100 [facility] [place] Comment on above: Result Comment: [facility] Glucose Reference Range is dependent on time and content of last meal. Glucose of more than 200 mg/dL in a nonstressed, ambulatory subject supports the diagnosis of Diabetes Mellitus. ADA recommended reference range Performed By: #### S CAN CBC, PAB, CMP #### [facility] [address] Potassium [Moles/Vol] 3.4 mmol/L Low 3.5-5.1 [facility] Comment on above: Performed By: #### S CAN CBC, PAB, CMP #### [facility] [address] Protein [Mass/Vol] 7.6 g/dL Normal 6.4-8.9 [facility] [place] Comment on above: Performed By: #### S CAN CBC, PAB, CMP #### [facility] [address] Sodium [Moles/Vol] 137 mmol/L Normal 136-145 [facility] [place] Comment on above: Performed By: #### S CAN CBC, PAB, CMP #### [facility] [address] [place] [id number] [facility] Urea nitrogen [Mass/Vol] 23 mg/dL Normal 7-25 [facility] Comment on above: Performed By: #### S CAN CBC, PAB, CMP #### [facility] [address] [place] [id number] [facility] Globulin Calc (S) [Mass/Vol] Ordered By: Janice Altamirano on 11-03-2022 Globulin (S) [Mass/Vol] 3.1 g/dL [facility] Microcytes LM Ql (Bld)Ordere d By: Janice Altamirano on 11-03-2022 Microcytes Ql (Bld) Slight [facility] Platelet adequacy [Presence] in Blood by Light microscopyOrdered By: Janice Altamirano on 11-03-2022 Platelets LM Ql (Bld) Normal Normal [facility] Platelet morphology finding [Identifier] in BloodOrdered By: Janice Altamirano on 11-03-2022 Platelet morphology finding Nom (Bld) Normal Normal [facility] Potassiumon 11-03-2022 Potassium [Moles/Vol] 3.4 mmol/L Low 3.5-5.1 [facility] Comment on above: Result Comment: PERF ORMED BY: [address] [place] [address] PATHOLOGIST C[employer]ED [employer] TERESA PATTERSON M.D. Performed By: #### K #### [facility] [address] [place] [id number] [place] Prealbuminon 11-03-2022 Prealbumin [Mass/Vol] 28.1 mg/dL Normal 17.0-34.0 [facility] Comment on above: Result Comment: PERF ORMED BY: [address] [place] [address] PATHOLOGIST [employer]ED [employer] TERESA PATTERSON M.D. Performed By: #### S CAN CBC, PAB, CMP #### [facility] [address] Prealbumin [Mass/volume] in Serum or PlasmaOrdered By: Janice Altamirano on 11-03-2022 Prealbumin [Mass/Vol] 28.1 mg/dL 17.0-34.0 [facility] Protein [Mass/volume] in Ser um or PlasmaOrdered By: Janice Altamirano on 11-03-2022 Protein [Mass/Vol] 7.6 g/dL 6.4-8.9 [facility] [place] RBC morphologyOrdered By: Ruslan Altamirano on 11-03-2022 RBC morphology finding Nom (Bld) N/A [facility] Scan and CBCon 11-03-2022 Anisocytosis Ql (Bld) Slight Normal [facility] Comment on above: Performed By: #### B MP, CBC #### [place] [address] [place] Basophils (Bld) [#/Vol] 0.1 10*3/uL Normal 0.0-0.2 [facility] Comment on above: Performed By: #### B MP, CBC #### [place] [address] [place] Basophils/100 WBC (Bld) 0.8 % Normal . [facility] Comment on above: Performed By: #### B MP, CBC #### [place] [address] [place] Eosinophils (Bld) [#/Vol] 0.1 10*3/uL Normal 0.0-0.45 [facility] Comment on above: Performed By: #### B MP, CBC #### [place] [address] [place] Eosinophils/100 WBC (Bld) 0.8 % Normal . [facility] Comment on above: Performed By: #### B MP, CBC #### [address] Erythrocyte distribution width (RBC) [Ratio] 14.3 % Normal 12.0-14.8 [facility] Comment on above: Performed By: #### B MP, CBC #### [facility] [address] Hematocrit (Bld) [Volume fraction] 49.6 % Normal 38.8-50.0 [facility] Comment on above: Performed By: #### B MP, CBC #### [address] Hemoglobin (Bld) [Mass/Vol] 17.4 g/dL High 13.0-17.0 [facility] Comment on above: Performed By: #### B MP, CBC #### [address] Lymphocytes (Bld) [#/Vol] 3.0 10*3/uL Normal 1.00-4.8 [facility] Comment on above: Performed By: #### B MP, CBC #### [address] Lymphocytes/100 WBC (Bld) 21.6 % Normal . [facility] Comment on above: Performed By: #### B MP, CBC #### [address] MCH (RBC) [Entitic mass] 30.8 pg Normal 27.5-35.2 [facility] Comment on above: Performed By: #### B MP, CBC #### [address] MCV (RBC) [Entitic vol] 87.9 fL Normal 83.5-101 [facility] Comment on above: Performed By: #### B MP, CBC #### [address] Mean Corpuscular HGB Conc 35.0 g/dL Normal 32.5-35.6 [facility] Comment on above: Performed By: #### B MP, CBC #### [address] Microcytosis Slight Normal [facility] Comment on above: Performed By: #### B MP, CBC #### [facility] [address] Monocytes (Bld) [#/Vol] 1.7 10*3/uL High 0.0-0.8 [facility] Comment on above: Performed By: #### B MP, CBC #### [facility] [address] Monocytes/100 WBC (Bld) 12.2 % Normal . [facility] Comment on above: Performed By: #### B MP, CBC #### [address] Neutrophils (Bld) [#/Vol] 8.9 10*3/uL High 1.8-7.7 [facility] Comment on above: Performed By: #### B MP, CBC #### [address] Neutrophils/100 WBC (Bld) 64.6 % Normal . [facility] Comment on above: Performed By: #### B MP, CBC #### [address] NRBC% 0.0 /100{WBC} Normal 0-0.5 [facility] Comment on above: Performed By: #### B MP, CBC #### [address] Platelet Estimate Normal Normal Normal [facility] Comment on above: Performed By: #### B MP, CBC #### [address] Platelet mean volume (Bld) [Entitic vol] 8.7 fL Normal 6.6-10.1 [facility] Comment on above: Performed By: #### B MP, CBC #### [address] Platelet Morphology Normal Normal Normal [facility] Comment on above: Result Comment: PERF ORMED BY: [place] [address] PATHOLOGIST [employer]ED [employer] TERESA PATTERSON M.D. Performed By: #### B MP, CBC #### [facility] [address] Platelets (Bld) [#/Vol] 191 10*3/uL Normal 150-450 [facility] Comment on above: Performed By: #### B MP, CBC #### [address] RBC (Bld) [#/Vol] 5.65 10*6/uL High 3.90-5.60 [facility] Comment on above: Performed By: #### B MP, CBC #### [facility] [address] WBC (Bld) [#/Vol] 13.7 10*3/uL High 4.1-10.5 [facility] Comment on above: Performed By: #### B MP, CBC #### [address] Serum or plasma albumin/glob ulin mass ratioOrdered By: Janice Altamirano on 11-03-2022 Albumin/Globulin [Mass ratio] 1.5 {ratio} [facility] Stool Cultureon 11-03-2022 Stool culture Comment add to colle cted stool sample Negative for Shiga Toxin 1 Negative for Shiga Toxin 2 -- A negative Shiga Toxin result may occur if the antigen level in the specimen is below the detection limit of the assay. Stool culture results No Salmonella, Shigella, Campy or E. coli [id number] Isolated PERFORMED BY: [place] [address] PATHOLOGIST [employer] TERESA PATTERSON M.D. [facility] Comment on above: Performed By: #### C USTOOL #### [address] Stool bacteria identificatio n by cultureOrdered By: Sara Osorio on 11-03-2022 Bacteria identified Cx Nom (Stl) [facility] Basic Metabolic Panelon Anion gap [Moles/Vol] 13.3 mmol/L Normal 6.0-15.0 [facility] Comment on above: Performed By: #### F ER, [id number], FE and TIBC, MG #### [facility] [address] Calcium [Mass/Vol] 9.5 mg/dL Normal 8.6-10.3 [facility] [place] Comment on above: Performed By: #### F ER, [id number], FE and TIBC, MG #### [facility] [address] Chloride [Moles/Vol] 103 mmol/L Normal 98-107 [facility] Comment on above: Performed By: #### F ER, [id number], FE and TIBC, MG #### [facility] [address] CO2 [Moles/Vol] 24.9 mmol/L Normal 21.0-31.0 [facility] Comment on above: Performed By: #### F ER, [id number], FE and TIBC, MG #### [facility] [address] Creatinine [Mass/Vol] 1.10 mg/dL Normal 0.70-1.30 [facility] Comment on above: Performed By: #### F ER, [id number], FE and TIBC, MG #### [facility] [address] Creatinine Clr Calc Pharmacy 67.50 Normal [facility] Comment on above: Result Comment: PERF ORMED BY: [place] [address] PATHOLOGIST COVERED [employer] TERESA PATTERSON M.D. Performed By: #### F ER, [id number], FE and TIBC, MG #### [facility] [address] GFR/1.73 sq M.predicted MDRD (S/P/Bld) [Vol rate/Area] mL/min/{1.73_m2} Normal [facility] Comment on above: Performed By: #### F ER, [id number], FE and TIBC, MG #### [facility] [address] Glucose [Mass/Vol] 114 mg/dL High 70-100 [facility] [place] Comment on above: Result Comment: [facility] Glucose Reference Range is dependent on time and content of last meal. Glucose of more than 200 mg/dL in a nonstressed, ambulatory subject supports the diagnosis of Diabetes Mellitus. ADA recommended reference range Performed By: #### F ER, [id number], FE and TIBC, MG #### [facility] [address] Potassium [Moles/Vol] 3.2 mmol/L Low 3.5-5.1 [facility] Comment on above: Performed By: #### F ER, [id number], FE and TIBC, MG #### [facility] [address] [place] [address] [place] Sodium [Moles/Vol] 138 mmol/L Normal 136-145 [facility] [place] Comment on above: Performed By: #### F ER, [id number], FE and TIBC, MG #### [facility] [address] [place] [address] [place] Urea nitrogen [Mass/Vol] 20 mg/dL Normal 7-25 [facility] Comment on above: Performed By: #### F ER, [id number], FE and TIBC, MG #### [facility] [address] [place] [address] [place] Basophils Auto (Bld) [#/Vol] Ordered By: John Garcia on 11-02-2022 Basophils (Bld) [#/Vol] 0.1 10*3/uL 0.0-0.2 [facility] Basophils/100 WBC Auto (Bld) Ordered By: John Garcia on 11-02-2022 Basophils/100 WBC (Bld) 0.8 % . [facility] Calcium [Mass/volume] in Ser um or PlasmaOrdered By: John [place] on 11-02-2022 Calcium [Mass/Vol] 9.5 mg/dL 8.6-10.3 [facility] [place] Carbon dioxide, total [Moles /volume] in Serum or PlasmaOrdered By: [facility] on 11-02-2022 CO2 [Moles/Vol] 24.9 mmol/L 21.0-31.0 [facility] Chloride [Moles/volume] in S shani or PlasmaOrdered By: [facility] on 11-02-2022 Chloride [Moles/Vol] 103 mmol/L 98-107 [facility] Complete Blood Count Auto Di ffon 11-02-2022 Basophils (Bld) [#/Vol] 0.1 10*3/uL Normal 0.0-0.2 [facility] Comment on above: Result Comment: PERF ORMED BY: [place] [address] PATHOLOGIST C[employer]ED [employer] TERESA PATTERSON M.D. Performed By: #### F ER, [id number], FE and TIBC, MG #### [facility] [address] [place] [address] Basophils/100 WBC (Bld) 0.8 % Normal . [facility] Comment on above: Performed By: #### F ER, [id number], FE and TIBC, MG #### [facility] [address] [place] [address] Eosinophils (Bld) [#/Vol] 0.0 10*3/uL Normal 0.0-0.45 [facility] Comment on above: Performed By: #### F ER, [id number], FE and TIBC, MG #### [facility] [address] [place] [address] [place] Eosinophils/100 WBC (Bld) 0.1 % Normal . [facility] Comment on above: Performed By: #### F ER, [id number], FE and TIBC, MG #### [facility] [address] Erythrocyte distribution width (RBC) [Ratio] 14.5 % Normal 12.0-14.8 [facility] Comment on above: Performed By: #### F ER, [id number], FE and TIBC, MG #### [address] Hematocrit (Bld) [Volume fraction] 47.6 % Normal 38.8-50.0 [facility] Comment on above: Performed By: #### F ER, [id number], FE and TIBC, MG #### [address] Hemoglobin (Bld) [Mass/Vol] 16.8 g/dL Normal 13.0-17.0 [facility] Comment on above: Performed By: #### F ER, [id number], FE and TIBC, MG #### [address] Lymphocytes (Bld) [#/Vol] 2.6 10*3/uL Normal 1.00-4.8 [facility] Comment on above: Performed By: #### F ER, [id number], FE and TIBC, MG #### [address] Lymphocytes/100 WBC (Bld) 18.5 % Normal . [facility] Comment on above: Performed By: #### F ER, [id number], FE and TIBC, MG #### [address] MCH (RBC) [Entitic mass] 30.8 pg Normal 27.5-35.2 [facility] Comment on above: Performed By: #### F ER, [id number], FE and TIBC, MG #### [address] MCV (RBC) [Entitic vol] 86.9 fL Normal 83.5-101 [facility] Comment on above: Performed By: #### F ER, [id number], FE and TIBC, MG #### [address] Mean Corpuscular HGB Conc 35.4 g/dL Normal 32.5-35.6 [facility] Comment on above: Performed By: #### F ER, [id number], FE and TIBC, MG #### [address] Monocytes (Bld) [#/Vol] 1.3 10*3/uL High 0.0-0.8 [facility] Comment on above: Performed By: #### F ER, [id number], FE and TIBC, MG #### [address] Monocytes/100 WBC (Bld) 9.2 % Normal . [facility] Comment on above: Performed By: #### F ER, [id number], FE and TIBC, MG #### [address] Neutrophils (Bld) [#/Vol] 10.2 10*3/uL High 1.8-7.7 [facility] Comment on above: Performed By: #### F ER, [id number], FE and TIBC, MG #### [address] Neutrophils/100 WBC (Bld) 71.4 % Normal . [facility] Comment on above: Performed By: #### F ER, [id number], FE and TIBC, MG #### [address] NRBC% 0.2 /100{WBC} Normal 0-0.5 [facility] Comment on above: Performed By: #### F ER, [id number], FE and TIBC, MG #### [address] Platelet mean volume (Bld) [Entitic vol] 8.7 fL Normal 6.6-10.1 [facility] Comment on above: Performed By: #### F ER, [id number], FE and TIBC, MG #### [facility] [address] Platelets (Bld) [#/Vol] 203 10*3/uL Normal 150-450 [facility] Comment on above: Performed By: #### F ER, [id number], FE and TIBC, MG #### [facility] [address] RBC (Bld) [#/Vol] 5.47 10*6/uL Normal 3.90-5.60 [facility] Comment on above: Performed By: #### F ER, [id number], FE and TIBC, MG #### [facility] [address] WBC (Bld) [#/Vol] 14.3 10*3/uL High 4.1-10.5 [facility] Comment on above: Performed By: #### F ER, [id number], FE and TIBC, MG #### [facility] [address] Creatinine [Mass/volume] in Serum or PlasmaOrdered By: John Wichita on 11-02-2022 Creatinine [Mass/Vol] 1.10 mg/dL 0.70-1.30 [facility] Eosinophils Auto (Bld) [#/Vo l]Ordered By: [facility] on 11-02-2022 Eosinophils (Bld) [#/Vol] 0.0 10*3/uL 0.0-0.45 [facility] Eosinophils/100 WBC Auto (Bl d)Ordered By: [facility] on 11-02-2022 Eosinophils/100 WBC (Bld) 0.1 % . [facility] Erythrocyte distribution wid th Auto (RBC) [Ratio]Ordered By: John Wichita on 11-02-2022 Erythrocyte distribution width (RBC) [Ratio] 14.5 % 12.0-14.8 [facility] Glucose [Mass/volume] in Ser um or PlasmaOrdered By: John RamirezGarcia on 11-02-2022 Glucose [Mass/Vol] 114 mg/dL 70-100 [facility] Comment on above: ADA recommended refe rence rangeRandom Glucose Reference Range is dependent on time and content of last meal. Glucose of more than 200 mg/dL in a nonstressed, ambulatory subject supports the diagnosis of Diabetes Mellitus. Hematocrit Auto (Bld) [Volum e fraction]Ordered By: John Garcia on 11-02-2022 Hematocrit (Bld) [Volume fraction] 47.6 % 38.8-50.0 [facility] Hemoglobin [Mass/volume] in BloodOrdered By: John Garcia on 11-02-2022 Hemoglobin (Bld) [Mass/Vol] 16.8 g/dL 13.0-17.0 [facility] Leukocytes [#/volume] correc khadra for nucleated erythrocytes in Blood by Automated counOrdered By: John Garcia on 11-02-2022 WBC corrected for nucl RBC Auto (Bld) [#/Vol] 14.3 10*3/uL 4.1-10.5 [facility] Lymphocytes Auto (Bld) [#/Vo l]Ordered By: John RamirezGarcia on 11-02-2022 Lymphocytes (Bld) [#/Vol] 2.6 10*3/uL 1.00-4.8 [facility] Lymphocytes/100 WBC Auto (Bl d)Ordered By: John RamirezGarcia on 11-02-2022 Lymphocytes/100 WBC (Bld) 18.5 % . [facility] MCH Auto (RBC) [Entitic mass ]Ordered By: John Garcia on 11-02-2022 MCH (RBC) [Entitic mass] 30.8 pg 27.5-35.2 [facility] MCHC Auto (RBC) [Mass/Vol]Or dered By: John RamirezGarcia on 11-02-2022 MCHC (RBC) [Mass/Vol] 35.4 g/dL 32.5-35.6 [facility] MCV Auto (RBC) [Entitic vol] Ordered By: John RamirezGarcia on 11-02-2022 MCV (RBC) [Entitic vol] 86.9 fL 83.5-101 [facility] Monocytes Auto (Bld) [#/Vol] Ordered By: John Garcia on 11-02-2022 Monocytes (Bld) [#/Vol] 1.3 10*3/uL 0.0-0.8 [facility] Monocytes/100 WBC Auto (Bld) Ordered By: John Garcia on 11-02-2022 Monocytes/100 WBC (Bld) 9.2 % . [facility] Neutrophils Auto (Bld) [#/Vo l]Ordered By: John RamirezGarcia on 11-02-2022 Neutrophils (Bld) [#/Vol] 10.2 10*3/uL 1.8-7.7 [facility] Neutrophils/100 WBC Auto (Bl d)Ordered By: John RamirezGarcia on 11-02-2022 Neutrophils/100 WBC (Bld) 71.4 % . [facility] No Panel InformationOrdered By: John Garcia on 11-02-2022 Estimated GFR (CKD-EPI) > 60.0 mL/Min [facility] Creatinine Clearance (Chem 67.50 [facility] Nucleated erythrocytes [Pres ence] in Blood by Automated countOrdered By: John Garcia on 11-02-2022 Nucleated RBC Auto Ql (Bld) 0.2 /100{WBC} 0-0.5 [facility] Platelet mean volume Auto (B ld) [Entitic vol]Ordered By: John Garcia on 11-02-2022 Platelet mean volume (Bld) [Entitic vol] 8.7 fL 6.6-10.1 [facility] Platelets Auto (Bld) [#/Vol] Ordered By: John Garcia on 11-02-2022 Platelets (Bld) [#/Vol] 203 10*3/uL 150-450 [facility] Potassium [Moles/volume] in Serum or PlasmaOrdered By: John Garcia on 11-02-2022 Potassium [Moles/Vol] 3.2 mmol/L 3.5-5.1 [facility] RBC Auto (Bld) [#/Vol]Ordere d By: John Garcia on 11-02-2022 RBC (Bld) [#/Vol] 5.47 10*6/uL 3.90-5.60 [facility] Serum or plasma anion gap de terminationOrdered By: John Garcia on 11-02-2022 Anion gap [Moles/Vol] 13.3 mmol/L 6.0-15.0 [facility] Sodium [Moles/volume] in Ser um or PlasmaOrdered By: John Wichita on 11-02-2022 Sodium [Moles/Vol] 138 mmol/L 136-145 [facility] Urea nitrogen [Mass/volume] in Serum or PlasmaOrdered By: John RamirezGarcia on 11-02-2022 Urea nitrogen [Mass/Vol] 20 mg/dL 7-25 [facility] WBC Auto (Bld) [#/Vol]Ordere d By: John Wich[place] on 11-02-2022 WBC (Bld) [#/Vol] 14.3 10*3/uL 4.1-10.5 [facility] Basic Metabolic Panelon Anion gap [Moles/Vol] 13.6 mmol/L Normal 6.0-15.0 [facility] Comment on above: Performed By: #### B MP, CBC #### [facility] [address] Calcium [Mass/Vol] 9.5 mg/dL Normal 8.6-10.3 [facility] Comment on above: Performed By: #### B MP, CBC #### [facility] [address] Chloride [Moles/Vol] 105 mmol/L Normal 98-107 [facility] Comment on above: Performed By: #### B MP, CBC #### [facility] [address] [place] [id number] [place] CO2 [Moles/Vol] 25.6 mmol/L Normal 21.0-31.0 [facility] Comment on above: Performed By: #### B MP, CBC #### [facility] [address] [place] [id number] [place] Creatinine [Mass/Vol] 1.03 mg/dL Normal 0.70-1.30 [facility] Comment on above: Performed By: #### B MP, CBC #### [facility] [address] [place] [id number] [place] Creatinine Clr Calc Pharmacy 72.09 [facility] Comment on above: Result Comment: PERF ORMED BY: [place] [address] PATHOLOGIST [employer] TERESA PATTERSON M.D. Performed By: #### B MP, CBC #### [place] [address] [place] GFR/1.73 sq M.predicted MDRD (S/P/Bld) [Vol rate/Area] mL/min/{1.73_m2} [facility] Comment on above: Performed By: #### B MP, CBC #### [address] Glucose [Mass/Vol] 108 mg/dL High 70-100 [facility] Comment on above: Result Comment: [place] Glucose Reference Range is dependent on time and content of last meal. Glucose of more than 200 mg/dL in a nonstressed, ambulatory subject supports the diagnosis of Diabetes Mellitus. ADA recommended reference range Performed By: #### B MP, CBC #### [address] Potassium [Moles/Vol] 3.2 mmol/L Low 3.5-5.1 [facility] Comment on above: Performed By: #### B MP, CBC #### [address] Sodium [Moles/Vol] 141 mmol/L Normal 136-145 [facility] Comment on above: Performed By: #### B MP, CBC #### [place] [address] [place] Urea nitrogen [Mass/Vol] 17 mg/dL Normal 7-25 [facility] Comment on above: Performed By: #### B MP, CBC #### [place] [address] [place] Complete Blood Count Auto Di ffon 11-01-2022 Basophils (Bld) [#/Vol] 0.1 10*3/uL Normal 0.0-0.2 [facility] Comment on above: Result Comment: PERF ORMED BY: [place] [address] PATHOLOGIST [employer] TERESA PATTERSON M.D. Performed By: #### B MP, CBC #### [address] Basophils/100 WBC (Bld) 0.7 % Normal . [facility] Comment on above: Performed By: #### B MP, CBC #### [facility] [address] Eosinophils (Bld) [#/Vol] 0.0 10*3/uL Normal 0.0-0.45 [facility] Comment on above: Performed By: #### B MP, CBC #### [address] Eosinophils/100 WBC (Bld) 0.3 % Normal . [facility] Comment on above: Performed By: #### B MP, CBC #### [address] Erythrocyte distribution width (RBC) [Ratio] 14.0 % Normal 12.0-14.8 [facility] Comment on above: Performed By: #### B MP, CBC #### [address] Hematocrit (Bld) [Volume fraction] 48.2 % Normal 38.8-50.0 [facility] Comment on above: Performed By: #### B MP, CBC #### [address] Hemoglobin (Bld) [Mass/Vol] 16.8 g/dL Normal 13.0-17.0 [facility] Comment on above: Performed By: #### B MP, CBC #### [address] Lymphocytes (Bld) [#/Vol] 3.1 10*3/uL Normal 1.00-4.8 [facility] Comment on above: Performed By: #### B MP, CBC #### [address] Lymphocytes/100 WBC (Bld) 23.0 % Normal . [facility] Comment on above: Performed By: #### B MP, CBC #### [address] MCH (RBC) [Entitic mass] 30.6 pg Normal 27.5-35.2 [facility] Comment on above: Performed By: #### B MP, CBC #### [address] MCV (RBC) [Entitic vol] 87.8 fL Normal 83.5-101 [facility] Comment on above: Performed By: #### B MP, CBC #### [address] Mean Corpuscular HGB Conc 34.8 g/dL Normal 32.5-35.6 [facility] Comment on above: Performed By: #### B MP, CBC #### [address] Monocytes (Bld) [#/Vol] 1.0 10*3/uL High 0.0-0.8 [facility] Comment on above: Performed By: #### B MP, CBC #### [address] Monocytes/100 WBC (Bld) 7.7 % Normal . [facility] Comment on above: Performed By: #### B MP, CBC #### [address] Neutrophils (Bld) [#/Vol] 9.2 10*3/uL High 1.8-7.7 [facility] Comment on above: Performed By: #### B MP, CBC #### [address] Neutrophils/100 WBC (Bld) 68.3 % Normal . [facility] Comment on above: Performed By: #### B MP, CBC #### [place] [address] [place] NRBC% 0.6 /100{WBC} High 0-0.5 [facility] Comment on above: Performed By: #### B MP, CBC #### [address] Platelet mean volume (Bld) [Entitic vol] 9.0 fL Normal 6.6-10.1 [facility] Comment on above: Performed By: #### B MP, CBC #### [address] Platelets (Bld) [#/Vol] 206 10*3/uL Normal 150-450 [facility] Comment on above: Performed By: #### B MP, CBC #### [address] RBC (Bld) [#/Vol] 5.48 10*6/uL Normal 3.90-5.60 [facility] Comment on above: Performed By: #### B MP, CBC #### [address] WBC (Bld) [#/Vol] 13.5 10*3/uL High 4.1-10.5 [facility] Comment on above: Performed By: #### B MP, CBC #### [address] A1C with Estimated Average G [facility] 10-31-2022 Glucose [Mass/Vol] 128 mg/dL Normal [facility] Comment on above: Result Comment: PERF ORMED BY: [place] [address] PATHOLOGIST [employer] TERESA PATTERSON M.D. Performed By: #### F ER, [id number], FE and TIBC, MG #### [address] HbA1c (Bld) [Mass fraction] 6.1 % High 4.3-5.6 [facility] Comment on above: Result Comment: Incr eased risk for diabetes: 5.7 - 6.4 diabetes: >6.4 glycemic control for adults with diabetes: <7.0 Performed By: #### F ER, [id number], FE and TIBC, MG #### [facility] [address] Basic Metabolic Panelon 09-0 Anion gap [Moles/Vol] 12.4 mmol/L Normal 6.0-15.0 [facility] Comment on above: Performed By: #### B MP, CBC #### [facility] [address] Calcium [Mass/Vol] 9.3 mg/dL Normal 8.6-10.3 [facility] Comment on above: Performed By: #### B MP, CBC #### [facility] [address] Chloride [Moles/Vol] 105 mmol/L Normal 98-107 [facility] Comment on above: Performed By: #### B MP, CBC #### [facility] [address] CO2 [Moles/Vol] 23.8 mmol/L Normal 21.0-31.0 [facility] Comment on above: Performed By: #### B MP, CBC #### [address] Creatinine [Mass/Vol] 0.88 mg/dL Normal 0.70-1.30 [facility] Comment on above: Performed By: #### B MP, CBC #### [facility] [address] [place] [address] Creatinine Clr Calc Pharmacy 84.38 [facility] Comment on above: Result Comment: PERF ORMED BY: [place] [address] PATHOLOGIST [employer] TERESA PATTERSON M.D. Performed By: #### B MP, CBC #### [place] [address] [place] GFR/1.73 sq M.predicted MDRD (S/P/Bld) [Vol rate/Area] mL/min/{1.73_m2} [facility] Comment on above: Performed By: #### B MP, CBC #### [facility] [address] [place] [address] [place] Glucose [Mass/Vol] 110 mg/dL High 70-100 [facility] Comment on above: Result Comment: [place] Glucose Reference Range is dependent on time and content of last meal. Glucose of more than 200 mg/dL in a nonstressed, ambulatory subject supports the diagnosis of Diabetes Mellitus. ADA recommended reference range Performed By: #### B MP, CBC #### [facility] [address] Potassium [Moles/Vol] 3.2 mmol/L Low 3.5-5.1 [facility] Comment on above: Performed By: #### B MP, CBC #### [facility] [address] Sodium [Moles/Vol] 138 mmol/L Normal 136-145 [facility] Comment on above: Performed By: #### B MP, CBC #### [facility] [address] Urea nitrogen [Mass/Vol] 12 mg/dL Normal 7-25 [facility] Comment on above: Performed By: #### B MP, CBC #### [facility] [address] angio neckon 10-31-2022 CT angio neck [facility] [place] [address] [place] [address] CT Scan Report Signed Patient: Viraj Doherty MR#: [id number] : 1955 Acct:[id number] Age/Sex: 67 / M ADM Date: 10/30/22 Loc: Room: [address] [place] [address] Type: ADM IN Attending Dr: Davey Harding MD Copies to: MD Nolberto Woodward MD Ordering Provider: Nolberto Hernandez MD Date of Service: 10/30/22 CT/CT angio head: formerly [facility] ([id number]) CT/CT angio neck: formerly [facility] CTA Head and Neck TECHNIQUE: Axial imaging [...] Delio Tran M.D.10/31/2022 7:42 AM Dictation Location: [place] [address] Transcribed By: [facility] 10/31/22 0742 Dictated By: Delio Tran DO 10/31/22 0736 Signed By: 10/31/22 [address] [facility] [address] head stroke alert wo nikole n 10-31-2022 CT head stroke alert wo [facility] [place] [address] [place] [address] CT Scan Report Signed Patient: Viraj Doherty MR#: [id number] : 1955 Acct:[id number] Age/Sex: 67 / M ADM Date: 10/30/22 Loc: Room: [address] [place] [address] Type: ADM IN Attending Dr: Davey Harding [...] atrophy and chronic small vessel ischemic changes. [facility] preliminary report completed 10/30/2022 at 7:34 PM Impression dictated by: Delio Tran M.D.10/31/2022 7:35 AM Dictation Location: [place] [address] Transcribed By: [facility] 10/31/22 0735 Dictated By: Delio Tran DO 10/31/22 0733 Signed By: 10/31/22 0735 Normal [facility] Cholesterol [Mass/volume] in Serum or PlasmaOrdered By: Dunia Bear on 10-31-2022 Cholesterol [Mass/Vol] 244 mg/dL 140-200 [facility] Comment on above: Chol less than 200 m g/dl low riskChol 201-239 mg/dl borderline riskChol 240 mg/dl and greater high risk Cholesterol in LDL Calc [Mas s/Vol]Ordered By: Dunia Bear on 10-31-2022 Cholesterol in LDL [Mass/Vol] 179 mg/dL 0-100 [facility] Comment on above: LDL ATP III CLASSIFI CATIONLDL less than 100 mg/dL OptimalLDL 100-129 mg/dL Near or above optimalLDL 130-159 mg/dL Borderline highLDL 160-189 mg/dL HighLDL greater than 189 mg/dL Very high Cholesterol in VLDL Calc [Ma ss/Vol]Ordered By: Dunia Bear on 10-31-2022 Cholesterol in VLDL [Mass/Vol] 25 mg/dL [facility] Complete Blood Count Auto Di ffon 10-31-2022 Basophils (Bld) [#/Vol] 0.1 10*3/uL Normal 0.0-0.2 [facility] Comment on above: Result Comment: PERF ORMED BY: [place] [address] PATHOLOGIST [employer] TERESA PATTERSON M.D. Performed By: #### B MP, CBC #### [address] Basophils/100 WBC (Bld) 1.0 % Normal . [facility] Comment on above: Performed By: #### B MP, CBC #### [place] [address] [place] Eosinophils (Bld) [#/Vol] 0.1 10*3/uL Normal 0.0-0.45 [facility] Comment on above: Performed By: #### B MP, CBC #### [address] Eosinophils/100 WBC (Bld) 0.7 % Normal . [facility] Comment on above: Performed By: #### B MP, CBC #### [place] [address] [place] Erythrocyte distribution width (RBC) [Ratio] 14.2 % Normal 12.0-14.8 [facility] Comment on above: Performed By: #### B MP, CBC #### [address] Hematocrit (Bld) [Volume fraction] 46.5 % Normal 38.8-50.0 [facility] Comment on above: Performed By: #### B MP, CBC #### [facility] [address] Hemoglobin (Bld) [Mass/Vol] 16.3 g/dL Normal 13.0-17.0 [facility] Comment on above: Performed By: #### B MP, CBC #### [facility] [address] Lymphocytes (Bld) [#/Vol] 2.6 10*3/uL Normal 1.00-4.8 [facility] Comment on above: Performed By: #### B MP, CBC #### [facility] [address] Lymphocytes/100 WBC (Bld) 25.2 % Normal . [facility] Comment on above: Performed By: #### B MP, CBC #### [address] MCH (RBC) [Entitic mass] 30.7 pg Normal 27.5-35.2 [facility] Comment on above: Performed By: #### B MP, CBC #### [address] MCV (RBC) [Entitic vol] 87.6 fL Normal 83.5-101 [facility] Comment on above: Performed By: #### B MP, CBC #### [address] Mean Corpuscular HGB Conc 35.0 g/dL Normal 32.5-35.6 [facility] Comment on above: Performed By: #### B MP, CBC #### [facility] [address] [place] [address] [place] Monocytes (Bld) [#/Vol] 0.9 10*3/uL High 0.0-0.8 [facility] Comment on above: Performed By: #### B MP, CBC #### [facility] [address] [place] [address] [place] Monocytes/100 WBC (Bld) 9.1 % Normal . [facility] Comment on above: Performed By: #### B MP, CBC #### [address] [place] [address] [place] Neutrophils (Bld) [#/Vol] 6.5 10*3/uL Normal 1.8-7.7 [facility] Comment on above: Performed By: #### B MP, CBC #### [facility] [address] Neutrophils/100 WBC (Bld) 64.0 % Normal . [facility] Comment on above: Performed By: #### B MP, CBC #### [facility] [address] NRBC% 0.6 /100{WBC} High 0-0.5 [facility] Comment on above: Performed By: #### B MP, CBC #### [address] Platelet mean volume (Bld) [Entitic vol] 8.7 fL Normal 6.6-10.1 [facility] Comment on above: Performed By: #### B MP, CBC #### [place] [address] [place] Platelets (Bld) [#/Vol] 192 10*3/uL Normal 150-450 [facility] Comment on above: Performed By: #### B MP, CBC #### [address] RBC (Bld) [#/Vol] 5.31 10*6/uL Normal 3.90-5.60 [facility] Comment on above: Performed By: #### B MP, CBC #### [place] [address] [place] WBC (Bld) [#/Vol] 10.2 10*3/uL Normal 4.1-10.5 [facility] Comment on above: Performed By: #### B MP, CBC #### [place] [address] [place] Dipstick and Microscopicon 0 10-31-2022 Appearance (U) Clear Normal Clear [facility] Comment on above: Order Comment: Name Collection Type:: Clean-Voided Midstream Performed By: #### B MP, CBC #### [facility] [address] [place] [address] [place] Bacteria,Urine None Seen Normal None Seen [facility] Comment on above: Order Comment: Name Collection Type:: Clean-Voided Midstream Result Comment: PERF ORMED BY: [place] [address] PATHOLOGIST [employer] TERESA PATTERSON M.D. Performed By: #### B MP, CBC #### [place] [address] [place] Bilirubin,Urine Negative Normal Negative [facility] Comment on above: Order Comment: Name Collection Type:: Clean-Voided Midstream Performed By: #### B MP, CBC #### [place] [address] [place] Color (U) Yellow Normal Yellow [facility] Comment on above: Order Comment: Name Collection Type:: Clean-Voided Midstream Performed By: #### B MP, CBC #### [place] [address] [place] Glucose Ql (U) Normal Normal Normal [facility] Comment on above: Order Comment: Name Collection Type:: Clean-Voided Midstream Performed By: #### B MP, CBC #### [place] [address] [place] Ketones Ql (U) Negative Normal Negative [facility] Comment on above: Order Comment: Name Collection Type:: Clean-Voided Midstream Performed By: #### B MP, CBC #### [facility] [address] [place] [address] [place] Leukocyte esterase Test strip Ql (U) Negative Normal Negative [facility] Comment on above: Order Comment: Name Collection Type:: Clean-Voided Midstream Performed By: #### B MP, CBC #### [place] [address] [place] Nitrite,Urine Negative Normal Negative [facility] Comment on above: Order Comment: Name Collection Type:: Clean-Voided Midstream Performed By: #### B MP, CBC #### [address] Occult Blood,Urine 1+ High Negative [facility] Comment on above: Order Comment: Name Collection Type:: Clean-Voided Midstream Result Comment: PERF ORMED BY: [place] [address] PATHOLOGIST [employer] TERESA PATTERSON M.D. Performed By: #### B MP, CBC #### [address] pH (U) 6.0 [pH] Normal 5.0-9.0 [facility] Comment on above: Order Comment: Name Collection Type:: Clean-Voided Midstream Performed By: #### B MP, CBC #### [place] [address] [place] Protein,Urine Trace High Negative [facility] Comment on above: Order Comment: Name Collection Type:: Clean-Voided Midstream Performed By: #### B MP, CBC #### [place] [address] [place] RBC,Urine 3-4 Normal 0-4 [facility] Comment on above: Order Comment: Name Collection Type:: Clean-Voided Midstream Performed By: #### B MP, CBC #### [address] Specificy Caret,Urine > 1.050 High 1.001-1.030 [facility] Comment on above: Order Comment: Name Collection Type:: Clean-Voided Midstream Performed By: #### B MP, CBC #### [place] [address] [place] Squamous Epithelial Cell,Urine Rare Normal 0-2 [facility] Comment on above: Order Comment: Name Collection Type:: Clean-Voided Midstream Performed By: #### B MP, CBC #### [place] [address] [place] Urobilinogen,Urine Normal Normal Normal [facility] Comment on above: Order Comment: Name Collection Type:: Clean-Voided Midstream Performed By: #### B MP, CBC #### [facility] [address] WBC LM.HPF (Urine sed) [#/Area] 0 /[HPF] Normal 0-4 [facility] Comment on above: Order Comment: Name Collection Type:: Clean-Voided Midstream Performed By: #### B MP, CBC #### [facility] [address] echo transthoracicon [facility] echo transthoracic [facility] Main [place] [address] [place] [address] Echocardiogram Signed Patient: Viraj Doherty MR#: [id number] : 1955 Acct:[id number] Age/Sex: 67 / M ADM Date: 10/30/22 Loc: Room: [address] [place] [address] Type: ADM IN Attending Dr: Davey Harding MD Ordering Provider: John Garcia DO Date of Service: 10/30/2206/18/2117 [facility] echo transthoracic: Neuro Symptoms/Deficit Copies to: DO [...] By: Tatiana Miranda MD 10/31/22 1502 Normal [facility] Glucose mean value [Mass/vol ume] in Blood Estimated from glycated hemoglobinOrdered By: Dunia Bear on 10-31-2022 Average glucose Estimated from glycated hemoglobin (Bld) [Mass/Vol] 128 mg/dL [facility] Hemoglobin A1c percentageOrd ered By: Dunia Bear on 10-31-2022 HbA1c (Bld) [Mass fraction] 6.1 % 4.3-5.6 [facility] Comment on above: Increased risk for d iabetes: 5.7 - 6.4diabetes: >6.4glycemic control for adults with diabetes: <7.0 Lipid Panelon 10-31-2022 Cholesterol [Mass/Vol] 244 mg/dL High 140-200 [facility] Comment on above: Order Comment: Comme nt add Comment add Result Comment: Chol less than 200 mg/dl low risk Chol 201-239 mg/dl borderline risk Chol 240 mg/dl and greater high risk Performed By: #### F ER, [id number], FE and TIBC, MG #### [facility] [address] Cholesterol in HDL [Mass/Vol] 39 mg/dL Normal 23-92 [facility] Comment on above: Order Comment: Comme nt add Comment add Result Comment: HDL CHOL ATP-III CLASSIFICATION Cardiovascular Risk HDL > or equal to 60 mg/dL LOW HDL < 40 mg/dL HIGH Performed By: #### F ER, [id number], FE and TIBC, MG #### [facility] [address] Cholesterol.total/Chol esterol in HDL [Mass ratio] 6.3 {ratio} Normal <5.0 [facility] Comment on above: Order Comment: Comme nt add Comment add Performed By: #### F ER, [id number], FE and TIBC, MG #### [facility] [address] LDL Cholesterol,Calculated 179 mg/dL High 0-100 [facility] Comment on above: Order Comment: Comme nt add Comment add Result Comment: LDL ATP III CLASSIFICATION LDL less than 100 mg/dL Optimal LDL 100-129 mg/dL Near or above optimal LDL 130-159 mg/dL Borderline high LDL 160-189 mg/dL High LDL greater than 189 mg/dL Very high Performed By: #### F ER, [id number], FE and TIBC, MG #### [address] Triglyceride w/Reflex 129 mg/dL Normal 0-149 [facility] Comment on above: Order Comment: Comme nt add Comment add Result Comment: TRIG ATP III CLASSIFICATION TRIG less than 150 mg/dL Normal TRIG 150-199 mg/dL Borderline high TRIG 200-500 mg/dL High TRIG greater than 500 mg/dL Very high Standard traceable to the Center for Disease Conrtrol and Prevention (CDC) test method. Performed By: #### F ER, [id number], FE and TIBC, MG #### [facility] [address] VLDL CHOLESTEROL 25 mg/dL Normal [facility] Comment on above: Order Comment: Comme nt add Comment add Performed By: #### F ER, [id number], FE and TIBC, MG #### [place] [id number] [facility] MR head/brain wo conon 10-31 MR head/brain wo con [facility] [place] [address] [place] [address] MRI Report Signed Patient: Viraj Doherty MR#: [id number] : 1955 Acct:[id number] Age/Sex: 67 / M ADM Date: 10/30/22 Loc: Room: [address] [place] [address] Type: ADM IN Attending Dr: Davey Harding [...] Jha Jr., D.O.10/31/2022 12:51 PM Dictation Location: [place] [address] Transcribed By: [facility] 10/31/22 1251 Dictated By: Jose Martin Jha Jr, DO 10/31/22 1247 Signed By: 10/31/22 1251 Normal [facility] Serum or plasma high density lipoprotein (HDL) cholesterol measurementOrdered By: Dunia Bear on 10-31-2022 Cholesterol in HDL [Mass/Vol] 39 mg/dL [facility] Comment on above: HDL CHOL ATP-III CLA SSIFICATION Cardiovascular RiskHDL > or equal to 60 mg/dL LOWHDL < 40 mg/dL HIGH Serum or plasma total choles terol/high density lipoprotein (HDL) cholesterol mass ratOrdered By: Dunia Bear on 10-31-2022 Cholesterol.total/Chol esterol in HDL [Mass ratio] 6.3 {ratio} <5.0 [facility] Thyroid Stimulating Hormoneo n 10-31-2022 TSH Qn 3.23 m[IU]/L Normal 0.45-5.33 [facility] Comment on above: Order Comment: Comme nt add Comment add Result Comment: PERF ORMED BY: [place] [address] PATHOLOGIST [employer] TERESA PATTERSON M.D. Performed By: #### F ER, [id number], FE and TIBC, MG #### [facility] [address] [place] [address] [place] Thyrotropin [Units/volume] i n Serum or PlasmaOrdered By: Dunia Bear on 10-31-2022 TSH Qn 3.23 m[IU]/L 0.45-5.33 [facility] Triglyceride [Mass/volume] i n Serum or PlasmaOrdered By: Dunia Bear on 10-31-2022 Triglyceride [Mass/Vol] 129 mg/dL 0-149 [facility] Comment on above: TRIG ATP III CLASSIF ICATIONTRIG less than 150 mg/dL NormalTRIG 150-199 mg/dL Borderline highTRIG 200-500 mg/dL High TRIG greater than 500 mg/dL Very highStandard traceable to the Center for Disease Conrtrol and Prevention (CDC) test method. XR chest 1V portableon 10-31 XR chest 1V portable [facility] Main [place] [address] [place] [address] XRay Report Signed Patient: Viraj Doherty MR#: [id number] : 1955 Acct:[id number] Age/Sex: 67 / M ADM Date: 10/30/22 Loc: Room: [address] [place] [address] Type: ADM IN Attending Dr: Davey Harding [...] Delio Tran M.D.10/31/2022 7:33 AM Dictation Location: [place] [address] Transcribed By: [facility] 10/31/22 0733 Dictated By: Delio Tran DO 10/31/22 0732 Signed By: 10/31/22 0733 Normal [facility] Activated partial thrombopla stin time (aPTT) in platelet poor plasma by coagulation aOrdered By: Nolberto Hernandez on 10-30-2022 aPTT Coag (PPP) [Time] 29.4 s 25.1-36.5 [facility] Automated epithelial cells c ount in urine sediment (number/area)Ordered By: Nolberto Hernandez on 10-30-2022 Epithelial cells Auto (Urine sed) [#/Area] Rare [HPF] 0-2 [facility] Automated erythrocytes count in urine sediment (number/area)Ordered By: Nolberto Hernandez on 10-30-2022 RBC Auto (Urine sed) [#/Area] 3-4 [HPF] 0-4 [facility] Automated leukocytes count i n urine sediment (number/area)Ordered By: Nolberto Hernandez on 10-30-2022 WBC Auto (Urine sed) [#/Area] 0-1 [HPF] 0-4 [facility] Basic Metabolic Panelon Anion gap [Moles/Vol] 11.6 mmol/L Normal 6.0-15.0 [facility] Comment on above: Performed By: #### F ER, [id number], FE and TIBC, MG #### [facility] [address] Calcium [Mass/Vol] 9.1 mg/dL Normal 8.6-10.3 [facility] Comment on above: Performed By: #### F ER, [id number], FE and TIBC, MG #### [facility] [address] Chloride [Moles/Vol] 104 mmol/L Normal 98-107 [facility] Comment on above: Performed By: #### F ER, [id number], FE and TIBC, MG #### [address] CO2 [Moles/Vol] 24.7 mmol/L Normal 21.0-31.0 [facility] Comment on above: Performed By: #### F ER, [id number], FE and TIBC, MG #### [address] Creatinine [Mass/Vol] 0.98 mg/dL Normal 0.70-1.30 [facility] Comment on above: Performed By: #### F ER, [id number], FE and TIBC, MG #### [address] Creatinine Clr Calc Pharmacy 71.14 [facility] Comment on above: Result Comment: PERF ORMED BY: [place] [address] PATHOLOGIST [employer] TERESA PATTERSON M.D. Performed By: #### F ER, [id number], FE and TIBC, MG #### [address] GFR/1.73 sq M.predicted MDRD (S/P/Bld) [Vol rate/Area] mL/min/{1.73_m2} [facility] Comment on above: Performed By: #### F ER, [id number], FE and TIBC, MG #### [facility] [address] Glucose [Mass/Vol] 107 mg/dL High 70-100 [facility] Comment on above: Result Comment: [facility] Glucose Reference Range is dependent on time and content of last meal. Glucose of more than 200 mg/dL in a nonstressed, ambulatory subject supports the diagnosis of Diabetes Mellitus. ADA recommended reference range Performed By: #### F ER, [id number], FE and TIBC, MG #### [facility] [address] Potassium [Moles/Vol] 3.3 mmol/L Low 3.5-5.1 [facility] Comment on above: Performed By: #### F ER, [id number], FE and TIBC, MG #### [facility] [address] Sodium [Moles/Vol] 137 mmol/L Normal 136-145 [facility] Comment on above: Performed By: #### F ER, [id number], FE and TIBC, MG #### [facility] [address] Urea nitrogen [Mass/Vol] 12 mg/dL Normal 7-25 [facility] Comment on above: Performed By: #### F ER, [id number], FE and TIBC, MG #### [address] Basophils Auto (Bld) [#/Vol] Ordered By: Nolberto Hernandez on 10-30-2022 Basophils (Bld) [#/Vol] 0.1 10*3/uL 0.0-0.2 [facility] Basophils/100 WBC Auto (Bld) Ordered By: Nolberto Hernandez on 10-30-2022 Basophils/100 WBC (Bld) 0.8 % . [facility] Bilirubin Test strip Ql (U)O rdered By: Nolberto Hernandez on 10-30-2022 Bilirubin Ql (U) Negative Negative [facility] Calcium [Mass/volume] in Ser um or PlasmaOrdered By: Nolberto Hernandez on 10-30-2022 Calcium [Mass/Vol] 9.1 mg/dL 8.6-10.3 [facility] Carbon dioxide, total [Moles /volume] in Serum or PlasmaOrdered By: Nolberto Hernandez on 10-30-2022 CO2 [Moles/Vol] 24.7 mmol/L 21.0-31.0 [facility] Chloride [Moles/volume] in S shani or PlasmaOrdered By: Nolberto Hernandez on 10-30-2022 Chloride [Moles/Vol] 104 mmol/L 98-107 [facility] Color Auto (U)Ordered By: Karen Hernandez on 10-30-2022 Color (U) Yellow Yellow [facility] Complete Blood Count Auto Di ffon 10-30-2022 Basophils (Bld) [#/Vol] 0.1 10*3/uL Normal 0.0-0.2 [facility] Comment on above: Result Comment: PERF ORMED BY: [place] [address] PATHOLOGIST [employer] TERESA PATTERSON M.D. Performed By: #### F ER, [id number], FE and TIBC, MG #### [facility] [address] [place] [address] Basophils/100 WBC (Bld) 0.8 % Normal . [facility] Comment on above: Performed By: #### F ER, [id number], FE and TIBC, MG #### [facility] [address] [place] [address] Eosinophils (Bld) [#/Vol] 0.1 10*3/uL Normal 0.0-0.45 [facility] Comment on above: Performed By: #### F ER, [id number], FE and TIBC, MG #### [facility] [address] [place] [address] [place] Eosinophils/100 WBC (Bld) 1.0 % Normal . [facility] Comment on above: Performed By: #### F ER, [id number], FE and TIBC, MG #### [facility] [address] [place] [address] Erythrocyte distribution width (RBC) [Ratio] 14.1 % Normal 12.0-14.8 [facility] Comment on above: Performed By: #### F ER, [id number], FE and TIBC, MG #### [address] Hematocrit (Bld) [Volume fraction] 48.3 % Normal 38.8-50.0 [facility] Comment on above: Performed By: #### F ER, [id number], FE and TIBC, MG #### [address] Hemoglobin (Bld) [Mass/Vol] 16.7 g/dL Normal 13.0-17.0 [facility] Comment on above: Performed By: #### F ER, [id number], FE and TIBC, MG #### [address] Lymphocytes (Bld) [#/Vol] 3.0 10*3/uL Normal 1.00-4.8 [facility] Comment on above: Performed By: #### F ER, [id number], FE and TIBC, MG #### [address] Lymphocytes/100 WBC (Bld) 31.1 % Normal . [facility] Comment on above: Performed By: #### F ER, [id number], FE and TIBC, MG #### [address] MCH (RBC) [Entitic mass] 30.2 pg Normal 27.5-35.2 [facility] Comment on above: Performed By: #### F ER, [id number], FE and TIBC, MG #### [address] MCV (RBC) [Entitic vol] 87.2 fL Normal 83.5-101 [facility] Comment on above: Performed By: #### F ER, [id number], FE and TIBC, MG #### [address] Mean Corpuscular HGB Conc 34.7 g/dL Normal 32.5-35.6 [facility] Comment on above: Performed By: #### F ER, [id number], FE and TIBC, MG #### [address] Monocytes (Bld) [#/Vol] 0.9 10*3/uL High 0.0-0.8 [facility] Comment on above: Performed By: #### F ER, [id number], FE and TIBC, MG #### [address] Monocytes/100 WBC (Bld) 18.82 % Normal 0.00-20.00 [facility] Comment on above: Performed By: #### F ER, [id number], FE and TIBC, MG #### [address] Monocytes/100 WBC (Bld) 9.0 % Normal . [facility] Comment on above: Performed By: #### F ER, [id number], FE and TIBC, MG #### [address] Neutrophils (Bld) [#/Vol] 5.5 10*3/uL Normal 1.8-7.7 [facility] Comment on above: Performed By: #### F ER, [id number], FE and TIBC, MG #### [address] Neutrophils/100 WBC (Bld) 58.1 % Normal . [facility] Comment on above: Performed By: #### F ER, [id number], FE and TIBC, MG #### [address] NRBC% 0.2 /100{WBC} Normal 0-0.5 [facility] Comment on above: Performed By: #### F ER, [id number], FE and TIBC, MG #### [address] Platelet mean volume (Bld) [Entitic vol] 8.8 fL Normal 6.6-10.1 [facility] Comment on above: Performed By: #### F ER, [id number], FE and TIBC, MG #### [facility] [address] Platelets (Bld) [#/Vol] 192 10*3/uL Normal 150-450 [facility] Comment on above: Performed By: #### F ER, [id number], FE and TIBC, MG #### [facility] [address] RBC (Bld) [#/Vol] 5.54 10*6/uL Normal 3.90-5.60 [facility] Comment on above: Performed By: #### F ER, [id number], FE and TIBC, MG #### [facility] [address] WBC (Bld) [#/Vol] 9.5 10*3/uL Normal 4.1-10.5 [facility] Comment on above: Performed By: #### F ER, [id number], FE and TIBC, MG #### [facility] [address] Creatine Kinaseon 10-30-2022 CK [Catalytic activity/Vol] 133 U/L Normal 30-223 [facility] Comment on above: Performed By: #### F ER, [id number], FE and TIBC, MG #### [facility] [address] Creatine kinase [Enzymatic a ctivity/volume] in Serum or PlasmaOrdered By: Nolberto Hernandez on 10-30-2022 CK [Catalytic activity/Vol] 133 U/L 30-223 [facility] Creatinine [Mass/volume] in Serum or PlasmaOrdered By: Nolberto Hernandez on 10-30-2022 Creatinine [Mass/Vol] 0.98 mg/dL 0.70-1.30 [facility] ECG 12 lead ECGon 10-30-2022 ECG 12 lead ECG [facility] [place] [address] [place] [address] Electrocardiograph Report Signed Patient: Viraj Doherty MR#: [id number] : 1955 Acct:[id number] Age/Sex: 67 / M ADM Date: 10/30/22 Loc: 4 Room: [address] [place] [address] Type: ADM IN Attending Dr: John Garcia [...] By Nolberto Hernandez MD 10/31/22 0108 Normal [facility] Eosinophils Auto (Bld) [#/Vo l]Ordered By: Nolberto Hernandez on 10-30-2022 Eosinophils (Bld) [#/Vol] 0.1 10*3/uL 0.0-0.45 [facility] Eosinophils/100 WBC Auto (Bl d)Ordered By: Nolberto Hernandez on 10-30-2022 Eosinophils/100 WBC (Bld) 1.0 % . [facility] Erythrocyte distribution wid th Auto (RBC) [Ratio]Ordered By: Nolberto Hernandez on 10-30-2022 Erythrocyte distribution width (RBC) [Ratio] 14.1 % 12.0-14.8 [facility] Glucose Glucometer (BldC) [M ass/Vol]Ordered By: Davey Harding on 10-30-2022 Glucose [Mass/Vol] 114 mg/dL [facility] Comment on above: Random Glucose Refer ence Range is dependent on time and content of last meal. Glucose of more than 200 mg/dL in a nonstressed, ambulatory subject supports the diagnosis of Diabetes Mellitus. Glucose Poct Glucometerson 0 10-30-2022 Glucose [Mass/Vol] 114 mg/dL Normal [facility] Comment on above: Result Comment: [place] [facility] Glucose Reference Range is dependent on time and content of last meal. Glucose of more than 200 mg/dL in a nonstressed, ambulatory subject supports the diagnosis of Diabetes Mellitus. PERFORMED BY: [facility] [address] [place] [address] PATHOLOGIST [employer] TERESA PATTERSON M.D. Performed By: #### B MP, CBC #### [facility] [address] Glucose [Mass/volume] in Ser um or PlasmaOrdered By: Nolberto Hernandez on 10-30-2022 Glucose [Mass/Vol] 107 mg/dL 70-100 [facility] Comment on above: ADA recommended refe rence rangeRandom Glucose Reference Range is dependent on time and content of last meal. Glucose of more than 200 mg/dL in a nonstressed, ambulatory subject supports the diagnosis of Diabetes Mellitus. Hematocrit Auto (Bld) [Volum e fraction]Ordered By: Nolberto Hernandez on 10-30-2022 Hematocrit (Bld) [Volume fraction] 48.3 % 38.8-50.0 [facility] Hemoglobin [Mass/volume] in BloodOrdered By: Nolberto Hernandez on 10-30-2022 Hemoglobin (Bld) [Mass/Vol] 16.7 g/dL 13.0-17.0 [facility] INR in Platelet poor plasma by Coagulation assayOrdered By: Nolberto Hernandez on 10-30-2022 INR Coag (PPP) [Relative time] 1.1 {INR} [facility] Comment on above: INR Therapeutic Rang e [...] 10-30-2022 Ketones (U) [Mass/Vol] Negative Negative Fi [facility] - CoagulationOrde red By: Nolberto Hernandez on 10-30-2022 PT Coag (PPP) [Time] 12.6 s 9.0-12.9 [facility] Leukocytes [#/volume] correc khadra for nucleated erythrocytes in Blood by Automated counOrdered By: Nolberto Hernandez on 10-30-2022 WBC corrected for nucl RBC Auto (Bld) [#/Vol] 9.5 10*3/uL 4.1-10.5 [facility] Lymphocytes Auto (Bld) [#/Vo l]Ordered By: Nolberto Hernandez on 10-30-2022 Lymphocytes (Bld) [#/Vol] 3.0 10*3/uL 1.00-4.8 [facility] Lymphocytes/100 WBC Auto (Bl d)Ordered By: Nolberto Hernandez on 10-30-2022 Lymphocytes/100 WBC (Bld) 31.1 % . [facility] MCH Auto (RBC) [Entitic mass ]Ordered By: Nolberto Hernandez on 10-30-2022 MCH (RBC) [Entitic mass] 30.2 pg 27.5-35.2 [facility] MCHC Auto (RBC) [Mass/Vol]Or dered By: Nolberto Hernandez on 10-30-2022 MCHC (RBC) [Mass/Vol] 34.7 g/dL 32.5-35.6 [facility] MCV Auto (RBC) [Entitic vol] Ordered By: Nolberto Hernandez on 10-30-2022 MCV (RBC) [Entitic vol] 87.2 fL 83.5-101 [facility] Monocyte distribution width [Entitic volume] in Blood by AutomatedOrdered By: Nolberto Hernandez on 10-30-2022 Monocyte distribution width Auto (Bld) [Entitic vol] 18.82 % 0.00-20.00 [facility] Monocytes Auto (Bld) [#/Vol] Ordered By: Nolberto Hernandez on 10-30-2022 Monocytes (Bld) [#/Vol] 0.9 10*3/uL 0.0-0.8 [facility] Monocytes/100 WBC Auto (Bld) Ordered By: Nolberto Hernandez on 10-30-2022 Monocytes/100 WBC (Bld) 9.0 % . [facility] Neutrophils Auto (Bld) [#/Vo l]Ordered By: Nolberto Hernandez on 10-30-2022 Neutrophils (Bld) [#/Vol] 5.5 10*3/uL 1.8-7.7 [facility] Neutrophils/100 WBC Auto (Bl d)Ordered By: Nolberto Hernandez on 10-30-2022 Neutrophils/100 WBC (Bld) 58.1 % . [facility] Nitrite Test strip Ql (U)Ord ered By: Nolberto Hernandez on 10-30-2022 Nitrite Ql (U) Negative Negative [facility] No Panel InformationOrdered By: Nolberto Hernandez on 10-30-2022 Estimated GFR (CKD-EPI) > 60.0 mL/Min [facility] Creatinine Clearance (Chem 71.14 [facility] Nucleated erythrocytes [Pres ence] in Blood by Automated countOrdered By: Nolberto Hernandez on 10-30-2022 Nucleated RBC Auto Ql (Bld) 0.2 /100{WBC} 0-0.5 [facility] Partial Thromboplastin Timeo n 10-30-2022 aPTT Coag (Bld) [Time] 29.4 s Normal 25.1-36.5 [facility] Comment on above: Result Comment: PERF ORMED BY: [place] [address] PATHOLOGIST [employer] TERESA PATTERSON M.D. Performed By: #### F ER, [id number], FE and TIBC, MG #### [facility] [address] [place] [address] Platelet mean volume Auto (B ld) [Entitic vol]Ordered By: Nolberto Hernandez on 10-30-2022 Platelet mean volume (Bld) [Entitic vol] 8.8 fL 6.6-10.1 [facility] Platelets Auto (Bld) [#/Vol] Ordered By: Nolberto Hernandez on 10-30-2022 Platelets (Bld) [#/Vol] 192 10*3/uL 150-450 [facility] Potassium [Moles/volume] in Serum or PlasmaOrdered By: Nolberto Hernandez on 10-30-2022 Potassium [Moles/Vol] 3.3 mmol/L 3.5-5.1 [facility] Protein Auto test strip (U) [Mass/Vol]Ordered By: Nolberto Hernandez on 10-30-2022 Protein (U) [Mass/Vol] Trace mg/dL Negative [facility] Prothrombin Time INRon 10-30 INR Coag (PPP) [Relative time] 1.1 {INR} Normal [facility] Comment on above: Result Comment: INR Therapeutic [...] - 4.5 Performed By: #### F ER, [id number], FE and TIBC, MG #### [facility] [address] PT Coag (PPP) [Time] 12.6 s Normal 9.0-12.9 [facility] Comment on above: Performed By: #### F ER, [id number], FE and TIBC, MG #### [facility] [address] RBC Auto (Bld) [#/Vol]Ordere d By: Nolberto Hernandez on 10-30-2022 RBC (Bld) [#/Vol] 5.54 10*6/uL 3.90-5.60 [facility] Serum or plasma anion gap de terminationOrdered By: Nolberto Hernandez on 10-30-2022 Anion gap [Moles/Vol] 11.6 mmol/L 6.0-15.0 [facility] Sodium [Moles/volume] in Ser um or PlasmaOrdered By: Nolberto Hernandez on 10-30-2022 Sodium [Moles/Vol] 137 mmol/L 136-145 [facility] Specific gravity Auto test s trip (U) [Rel density]Ordered By: Nolberto Hernandez on 10-30-2022 Specific gravity (U) [Rel density] > 1.050 1.001-1.030 [facility] Troponin I High Sensitivityo n 10-30-2022 Troponin I High Sensitivity 12.1 pg/mL Normal 0.0-20.0 [facility] Comment on above: Result Comment: PERF ORMED BY: [facility] [address] [place] [address] PATHOLOGIST [employer] TERESA PATTERSON M.D. Performed By: #### F ER, [id number], FE and TIBC, MG #### [facility] [address] Troponin I.cardiac [Mass/vol ume] in Serum or Plasma by Detection limit <= 0.01 ng/Ordered By: Nolberto Hernandez on 10-30-2022 Troponin I.cardiac DL <= 0.01 ng/mL [Mass/Vol] 12.1 pg/mL 0.0-20.0 [facility] Urea nitrogen [Mass/volume] in Serum or PlasmaOrdered By: Nolberto Hernandez on 10-30-2022 Urea nitrogen [Mass/Vol] 12 mg/dL 7-25 [facility] Urine bacteria detection by automated methodOrdered By: Nolberto Hernandez on 10-30-2022 Bacteria Auto Ql (U) None seen None Seen [facility] Urine clarity by refractomet ry automatedOrdered By: Nolberto Hernandez on 10-30-2022 Clarity Refractometry automated (U) Clear Clear [facility] Urine glucose measurement by automated test strip (mass/volume)Ordered By: Nolberto Hernandez on 10-30-2022 Glucose Auto test strip (U) [Mass/Vol] Normal mg/dL Normal [facility] Urine hemoglobin detection b y automated test stripOrdered By: Nolberto Hernandez on 10-30-2022 Hemoglobin Auto test strip Ql (U) 1+ Negative [facility] Urine leukocyte esterase det ection by automated test stripOrdered By: Nolberto Hernandez on 10-30-2022 Leukocyte esterase Auto test strip Ql (U) Negative Negative [facility] Urobilinogen Auto test strip (U) [Mass/Vol]Ordered By: Nolberto Hernandez on 10-30-2022 Urobilinogen (U) [Mass/Vol] Normal mg/dL Normal [facility] WBC Auto (Bld) [#/Vol]Ordere d By: Nolberto Hernandez on 10-30-2022 WBC (Bld) [#/Vol] 9.5 10*3/uL 4.1-10.5 [facility] pH Auto test strip (U)Ordere d By: Nolberto Hernandez on 10-30-2022 pH (U) 6.0 [pH] 5.0-9.0 [facility] Quantiferon-TB Plus (Client Incubated)on 09-08-2022 Gamma interferon background IA Qn (Bld) 0.81 International_Unit/mL Invalid Interpretation Code [facility] Comment on above: Performed By: #### 1 [id number] #### [facility] [address] [place] [address] M. tuberculosis stim IFN-g by CD4+ CD8+ T-cells Qn (Bld) 0.13 International_Unit/mL Invalid Interpretation Code [facility] Comment on above: Performed By: #### 1 [id number] #### [facility] [address] [place] [address] M. tuberculosis stim IFN-g by CD4+ T-cells Qn (Bld) 0.49 International_Unit/mL Invalid Interpretation Code [facility] Comment on above: Performed By: #### 1 [id number] #### [facility] [address] [place] [address] M. tuberculosis stim IFN-g Ql (Bld) [Interp] Negative Invalid Interpretation Code Negative [facility] Comment on above: Result Comment: No r [...] interferon gamma. Chemiluminescence immunoassay methodology Performed at: [facility] [id number] PhD Rex Shirley Performed By: #### 1 [id number] #### [facility] [address] [place] [address] Mitogen stimulated gamma interferon Qn (Bld) >10.00 Invalid Interpretation Code [facility] Comment on above: Performed By: #### 1 [id number] #### [facility] [address] [place] [address] Service comment (Unsp spec) [Interp] Comment Invalid Interpretation Code [facility] Comment on above: Result Comment: Wilmer tiFERON-TB [...] for the test. Performed By: #### 1 [id number] #### [facility] [place] [facility] [address] [place] [address] Consent for Treatmenton 08-26 Consent for Treatment [id number]#[id number]:127 Normal [facility] [place] Physician Orderon 09-06-2022 Physician Order [id number]#1.00CD:127 Normal [facility] [place] Coding Summary.on 09-13-2021 Coding Summary. CD:[id number] Gh0bWw +PGhlYWQ+ZY4UXYCpT72twWClb P9WJ6dIEK9FUFCKLKMKQK6UFZ2 diTZ1MYfrG7XnhcKd YlvcgAIgJB78LBy1FSJ7tXcyHF evnT2gzAHlK4y2ExMgEA46jI68 YZwmLNLzQyR0NyGbehxuzLLd Q3gzVjFmeSZrJxl+PHRhYmxlIH ctIJWmYFhhWPBrBmXfsGgqOW9o Wt8iYWFpUXZtvHrejFKoBgAx n7ngCHEbAPdfKI5obVmgD8OwbB X2QZJrm8f0Sk32dSU+PHRkIHN0 dZfzEPjig523FyJib6uuXIZ0 vNScGLgrGVK1K45yg3A4QUOyYZ GnHUK2hME1sW1lgMkfntmcW8Go tERvLxP4RFO4xRGrnE3giEil gbzqpF1lYji+C68ZLU1KUXFACU 0OBox4I9SwVyuicMI+TT16HVJh SZ38rKPatYAmd3rceQe2UlKy VMLbZWK1cJlwOBkes6CvRDHwQ4 0fmLKrf9D6UFUcsWlhzWQkNsUm bGK7fC8gOQzsnaqxn4rjgcak Vheyj4elbg01fX47L32rHEebBU NeFZM7OTPsEVGgoMfbvz7jsR0k Ii8+UWobl1udm6bwtOi4AlLf WGYkvtZjxXdvDEO0r5SlBg15F1 AkuAxfo6AlPdk0xe60vNGuq1K3 wWS8HEuxLJQtzM4hFVnqUzH3 UIFoIkRenC38zTIgSKqiIz2hoI bipPiwTR8dRYAobqefZHEkiX0p GBFicYPlmMlgEK4gIQHfcnfw f493OaFrWNG6XARuhGWjT0UjlJ 7aCiDtCWUxIIRtD6QjlJWxGVmn K120UQlvCtH4ELOzhhOwT0Tg BGUywWmdYkJ9p5Z4Zo3Po9Tbja gwOPC5JHttQHH4XaG9YsDbOiD9 I4MiGhi3WOHzlHoqNL7tZ4Pe UVUierpydhujvWR6HVZeQWPxhS 25fTWpXLtcRu0st7A4t053DTEj EGRtaX46Ge2ycJzjWWChqXCO rK9ylhwyn5kzgwqwKxEoRGGmUT m8ZYw0VSDegIziJrIdCQH9VwY8 YCE4cKWteF7rtFshdptcjR2b Oyc+W38liA5nXGW8ZWP6gpuxCA JepxSmVC83IK21N2SzBdxxfMPc bGU+PKFtgwWskFevVB0zKeAu p4dvy7EzXOivZ2GbHDYcFZmyRc k6EGNcLQO6rXF9hA8gAHLvGYsb x2Y3qOD8A0JicpSqld6os5dr BMPcLRbrB97uuFBjx9Z3SVBwbW I9RWXjsPxyHnSavF18Wjx+PGNv nGlqw1KdUktag6scw8rsyTb4 MaErIRUmapVwvKleCTS4x2ZgBj 94C31aQSqeMUDnTPGmXAQuDDBw uYmubx8klW7eQv2+PGNvbCB3 hNV6zX0kWVRnZrW0MXupS382Wl CohSEwUomxe0mbq3kbpBy7SbYd OYBaqoOaqMjjFQE5c9QrEy27 R79hCHscFNOjKNFtSGZjFKFphN gpac3hkU5hMq9+AT9ai0ghko11 wD83jWC+MRJvBIS2qSqkOPic FGRcjH6wATemLqA7KCKjTmPtvB 53nNQvBIqrNt7coXaqgVgoTV2z RYBnzazog830FiUcs9fvDCZy zUOtRHruTZU4S01mz9Z5SMIxJW WwGTZ8oDW8rP1uzHhbeabwhBFf lHjcpiXgrUtrHDdvTWciF644 IHRvcDsnPlBhdGllbnQgTmFtZT f5Y3EbBqn9IMZzpJueLZ5rnNDe DXeqMv6beAiqcGigVA5qWAZt kbcpk706PyGbs9keYJKsgSMrFX liLCV4H58st4Z4TOEqITQmCRF5 bWJ7lO9avNsibeyfoLGxyEsv gwPemEuaDPjnOFkyB735OKKrzA nvSnCrfjUaLKVsyJZ3FM12JQ49 lXCst6H1gQV5X7PdDUUdiuik fhzfhJS8TMPlGXXerB32Fh8ulZ ouEf0dKWLjFAR8VVVibRQeD2Tk xL3mZmZoUQFxARZeF3GryEQj JQxcZ198NPqvUvQ2HAQekoGqX2 DgHBQrgRqqMqE1g5H5Ya7AK0R5 LB48CK81jSSgn2A2uTH8C4Pl KITxczitsylfmBB3TPRxLYXxpK 33Vh0kbVxmFz4iNMVqTHV4WLUo wHJmR6JbeN2sXyScJGSePSZd A0AiiEYvGUguT156BAwhHvR4NO OlcvSaJ9UyQDRajCnyUqE5r8U4 Jq0ETVo3QA65CN99mVBjm7Z0 jPS4A1PiHBEnaozxwgbwfTU3FF NhFJRmbC10Ka7akSkeBq0kSLJf SZL8SDAcvNRxK8RguN2tHeIq QGIdOXHzQ4KnvQPdGEkkC466TE epNaC7DASurbLxQ2ViBOCojGrl BnC8y5N6Lw2VIJIoUT15SWE9 yOE5WR22NA64U7RhEnnjeSKxyI U+PHRhYmxlIHdpZHRoPScxMDAl CzJduYjvNG0xGm8eCWNoTZHb uLiirPOiHmKjs9hkOJGeGHufEX 3icTrqO1YgjYT1ZCAyh2j3Yo26 B80mJ6AjdWT+BQOkzFU5aXD3 uJ9aPtYrVcP7DNmfM390OkFwaE KmHbtfy0qhb4oknFr8TcU7WBUb lnTeqMjmNZH8t4DhCg96Q62z IHdpZHRoPSIxNSUiIHZhbGlnbj 9guC0iVe5+KBFfpCU4wNG0vU7a GbXfDcK0WSujY262CyZjeAVq Ipakt5txm4povPj4YgWkNJDmlc JmeLiyDMC2c7LyTi33S4ZrsEsy t6WgIzq1xo39zAOqb0H1gBY7 Y9IxIGQqtyzpyBIkbZtbEG5sAO AzfwsqXDCavB9hTTZwJ0s4PcWq DcX5XJcfZ5WnzcY2RXLbbUXb UItfMQP1Y26uu3K4GTKlDQNgCK M2bBX8aU9nqPjqapoktVAmvKht jtAmbPjeVUggUSutG201MUIm yKbkYNUxrO4oVAKhyUCvjRxsIK 4wNTBpbjsnPlNBTVBTRUwsIENI QVJMRVMgTDwvdGQ+PHRkIHN0 oDpcVTjgGPCuhG9wLLKnZ4s4Qg OdArS7XSvtP7StCXLhanelRm92 lI1aRtBeOlA7FMbhI0BhkvP9 KGTdvRWyHUnbYYA5L84lq6Q1LJ MeAVNpZRO4dNG7dN6crLqwbbqb bGVmdDsgdmVydGljYWwtYWxp J621SZDdjBftBqYvFeZ7FrW3ZP W5J1QzHwm0BGKibVeuQK7acFNj BXawPt6dsEqtzZanJY8xSQOx sdxoOTYlaU5hCXTjxFGwgRvtLE 3fBKJhayorc387QjNnVHR5EHIy pGVoI4SyaB0cEsFqAZUzCPRu Y1VmlTWyMKteB106EDegRcQ9PW GxrtLzT6CwBTKmcCebOmA4w8W2 Kc20LTSXQKHzdmdziDI+PHRk LNZ0gVidJLyrHKEqvA0jFTTuQ9 h9NsDeEoP5CUxfY5CnGCTuuqih Hg21zX4hKtHzStK0SWnzV4Yh maW2CBMkiPNzLBgmROC0C38ze0 E0RMCcLSThMXZ4eLE3wP4yjEqp bjogbGVmdDsgdmVydGljYWwt LVzxC869MDKezYetQk8jgZC8A9 QaOcz4AQHzhZvuDP9osEVpOMlv Og8duSowgOxxEN0rMOPuoonm HRRdtG3fEUPbpRHmrEvdEE6aDC Oeebvus995OgHtRIQ5JOXadHLn K3EhyM0hDcNqPRSsZKRvU9Pl dLIrWVxqR663JAoeSnY0IKCjcs TzD2MdJIMhjYbgImQ8a1F6Nm3B qCJeLJWhQO61CI57MU94U9Ar PjwvdGFibGU+PHRhYmxlIHdpZH LuYQucWHKhXeXkhTidDK3pEr7c NRChFYHbzIdzlUKgRhBbp9hk OIMhLLqfUV6ejTwvE6PbmJR4BD Zea4g3Lf44V73wU5EqdXJ+PGNv fTI4rYD6fQ0rWdGtUdW8AVtm Z720YfYxvLIgJsdni7gza4xtmB a0UsIvPFSdzsUmkQyyKEM0k0Ph Ag31O65aKPgpGCViGROxQWIc KBPpfKrflu5zjD0pFu5+PGNvbC G4eZJ8mE2jIfNnGdV9WRkyU873 UzPzwNQkPknsR19iA8TmqNJ+ TFLcDqx9YXUrmKkfQM0ihZQrFN quWb4iHED1AkEwAvAjLRajW7Id LVBukusrqsdcoAZ9INDzZGPr zP83Sf2lbEkxLj3bLZLdWWW9SO JbyTEbV6NizO4bTiQgHXDeOTWk F0VswADpADbeH299DCcgVoB1 ZQSbsiCrR7AoYHFxpQdsOmX5x3 B2Vr0ZmXypaAMsPT8cRkCoZSo0 P3ZuOsh2SXJayPpvVK1mjLPb VCpkIi9mvOyvlHrhHB2gQHOjlt oia034IoVlq2reHVUyqGTmTCnu KWA1Y42vu2F7LAWjDBZiLBL5 jHZ3iN1yrHnfbpvpaFSjtBeywt QxlWnbPKgjNGixX261ENLwbRgb NnFFIdw5C2JwFmd7LOAnkDjp LH1syCLwHMpdSx5omLegzFgrAK 0sCRDxcsbhj227IaTky3tzWLEk gVEdQOjbWWB8M45py2S8OUVf ISOhRIO7zEL7iD0lxRvtahcxsG QhqGnmoeTjaIjwIDfsOWetN440 DQExsImkVz4YEeo9S1LdFve6 ITQzeTvzJG3ixSGxRKgpLp8bfK ivjYevBO5sFOFeowacu660XcRs d9ckLAWudWQzTWesUDD5H04j j5I7PAGxBXCgBAY0cMP5mC1paF lnbjogbGVmdDsgdmVydGljYWwt QRyuY008XRAmnZzzPsUcuKRh OjwvdGQ+QC79hp65Z6AdVodjVt f8KYEeXKB5ePD3qN7vNEBmWNgz y9U5tCZ7O9VdubOnvn9dm4pr YXBz (more content not included)... Normal [facility] [place] INSULINon 08-20-2018 Insulin 8.6 uIU/mL Normal 2.6-24.9 [facility] Comment on above: Performed By: #### I NSULIN ####[facility] [address] [place] [address] CBC AUTO DIFFon 08-19-2018 Basophils (Bld) [#/Vol] 0.1 103/ul Normal 0.0-0.1 [facility] Comment on above: Performed By: #### C BC ####[facility] [address] [place] [address] 27[address]Nninck Zena Basophils/100 WBC (Bld) 1.1 % Normal 0.2-2.0 [facility] Comment on above: Performed By: #### C BC ####[facility] [address] [place], [place] [id number] Zena Eosinophils (Bld) [#/Vol] 0.1 103/ul Normal 0.0-0.7 [facility] Comment on above: Performed By: #### C BC ####[facility] [address] [place] [address]Gpmlbl Zena Eosinophils/100 WBC (Bld) 1.8 % Normal 0.9-7.0 [facility] Comment on above: Performed By: #### C BC ####[facility] [address] [place], [place] [id number] Zena Erythrocyte distribution width (RBC) [Ratio] 13.7 % Normal 11.0-15.0 [facility] Comment on above: Performed By: #### C BC ####[facility] [address] [place], [place] [id number] Zena Hematocrit (Bld) [Volume fraction] 45.4 % Normal 42.0-54.0 [facility] Comment on above: Performed By: #### C BC ####[facility] [address] [place] [address] 6[address]Pkfaum Zena Hemoglobin (Bld) [Mass/Vol] 15.6 g/dL Normal 14.0-18.0 [facility] Comment on above: Performed By: #### C BC ####[facility] [address] [place], [place] [id number] Zena IG # 0.05 10e3/ul Critically high 0.00-0.03 [facility] Comment on above: Performed By: #### C BC ####[facility] [address] [place], [place] [address]Hbzgdj Zena IG % 0.6 % Critically high 0.0-0.5 [facility] Comment on above: Performed By: #### C BC ####[facility] [address] [place], [place] [address]Vmovem Zena Lymphocytes (Bld) [#/Vol] 2.7 103/ul Normal 1.2-3.8 [facility] Comment on above: Performed By: #### C BC ####[facility] [address] [place] [address] 92583Afkqzh Zena Lymphocytes/100 WBC (Bld) 33.3 % Normal 20.5-60.0 [facility] Comment on above: Performed By: #### C BC ####[facility] [address] [place], [place] [id number] Zena MANUAL DIFF REQ NO Normal [facility] Comment on above: Performed By: #### C BC ####[facility] [address] [place] [address]Wwfzlr Zena MCH (RBC) [Entitic mass] 30.0 pg Normal 25.9-34.0 [facility] Comment on above: Performed By: #### C BC ####[facility] [address] [place], [place] [id number] Zena MCHC (RBC) [Mass/Vol] 34.4 g/dL Normal 29.9-35.2 [facility] Comment on above: Performed By: #### C BC ####[facility] [address] [place], [place] [address]Gerken Zena MCV (RBC) [Entitic vol] 87.3 fL Normal 80.0-94.0 [facility] Comment on above: Performed By: #### C BC ####[facility] [address] [place], [place] [id number] Zena Monocytes (Bld) [#/Vol] 0.8 103/ul Normal 0.3-0.8 [facility] Comment on above: Performed By: #### C BC ####[facility] [address] [place], [place] [address]Aeqffl Zena Monocytes/100 WBC (Bld) 10.0 % Normal 1.7-12.0 [facility] Comment on above: Performed By: #### C BC ####[facility] [address] [place], [place] [address]Buuffm Zena Neutrophils (Bld) [#/Vol] 4.3 103/ul Normal 1.4-6.5 [facility] Comment on above: Performed By: #### C BC ####[facility] [address] [place], [place] [address]Ivttnr Zena Neutrophils/100 WBC (Bld) 53.2 % Normal 43.0-75.0 [facility] Comment on above: Performed By: #### C BC ####[facility] [address] [place] [address]Lnwipf Zena Platelet mean volume (Bld) [Entitic vol] 11.0 fL Normal 9.5-13.5 [facility] Comment on above: Performed By: #### C BC ####[facility] [address] [place] [address]Vtldnj Zena Platelets (Bld) [#/Vol] 203 103/ul Normal 150-450 [facility] Comment on above: Performed By: #### C BC ####[facility] [address] [place] [address]Vntinh Zena RBC (Bld) [#/Vol] 5.20 106/ul Normal 4.70-6.10 [facility] Comment on above: Performed By: #### C BC ####[facility] [address] [place] [address] 94[address]Rcquby Zena WBC (Bld) [#/Vol] 8.0 103/ul Normal 4.0-11.0 [facility] Comment on above: Performed By: #### C BC ####[facility] [address] [place] [address]Bovegs Zena GLYCOHEMOGLOBIN A1Con 2018 Glucose [Mass/Vol] 120 mg/dL Normal [facility] Comment on above: Performed By: #### A 1C ####[facility] [address] [place], [place] [address]Ajpwwu Zena HbA1c (Bld) [Mass fraction] 5.8 % Normal <=6.0 [facility] Comment on above: Performed By: #### A 1C ####[facility] [address] [place], [place] [address]Zjekxm Zena LIPID PROFILEon 08-19-2018 CHOL-HDL RATIO NORM SEE BELOW Normal [facility] Comment on above: Result Comment: 3.3 - 4.4 LOW RISK 4.4 - 7.1 AVERAGE RISK 7.1 - 11.0 MODERATE RISK >11.0 HIGH RISK Performed By: #### C MP, PSASC, LIPID, URIC ####[facility] [address] [place] [address]Zlkoaj Zena Cholesterol [Mass/Vol] 217 mg/dL Critically high <=200 [facility] Comment on above: Performed By: #### C MP, PSASC, LIPID, URIC ####[facility] [address] [place], [place] [address]Qetuah Zena Cholesterol in HDL [Mass/Vol] > or = 60 mg/dl - LOW CARDIOVASCULAR RISK <40 mg/dl - HIGH CARDIOVASCULAR RISK Normal [facility] Comment on above: Performed By: #### C MP, PSASC, LIPID, URIC ####[facility] [address] [place], [place] [address]Oqixij Zena Cholesterol in HDL [Mass/Vol] 29 mg/dL Normal [facility] Comment on above: Performed By: #### C MP, PSASC, LIPID, URIC ####[facility] [address] [place], [place] [address]Rzkdno Zena Cholesterol in LDL [Mass/Vol] 152.2 mg/dL Normal [facility] Comment on above: Performed By: #### C MP, PSASC, LIPID, URIC ####[facility] [address] [place], [place] [address]Gsxhcl Zena Cholesterol in LDL [Mass/Vol] SEE BELOW Normal [facility] Comment on above: Result Comment: <100 mg/dl OPTIMAL 100 - 129 mg/dl NEAR OR ABOVE OPTIMAL 130 - 159 mg/dl BORDERLINE HIGH 160 - 189 mg/dl HIGH >190 mg/dl VERY HIGH Performed By: #### C MP, PSASC, LIPID, URIC ####[facility] [address] [place], [place] [address]Hmguxd Zena Cholesterol.total/Chol esterol in HDL [Mass ratio] 7.5 {ratio} Normal [facility] Comment on above: Performed By: #### C MP, PSASC, LIPID, URIC ####[facility] [address] [place], [place] [address]Vxufpa Zena Triglyceride [Mass/Vol] 179 mg/dL Critically high <=150 [facility] Comment on above: Performed By: #### C MP, PSASC, LIPID, URIC ####[facility] [address] [place], [place] [address]Xfxsfw Zena VLDL CALC 35.8 mg/dL Normal [facility] Comment on above: Performed By: #### C MP, PSASC, LIPID, URIC ####[facility] [address] [place], [place] [address]Smszor Zena OCC BLD IMMUNO SCREENon 07-28 OCCULT BLOOD Positive Normal NEGATIVE [facility] Comment on above: Performed By: #### O BSCRN ####[facility] [address] [place] [phone] Zena PROF 14(COMP METB)on 019 Albumin [Mass/Vol] 4.1 g/dL Normal 3.5-5.0 [facility] Comment on above: Performed By: #### C BC #### [facility] [address] [place], [place] [address] Canelo Zena Albumin/Globulin [Mass ratio] 1.1 {ratio} Normal [facility] Comment on above: Performed By: #### C BC #### [facility] [address] [place], [place] [address] Canelo Zena ALP [Catalytic activity/Vol] 73 U/L Normal 38-126 [facility] Comment on above: Performed By: #### C BC #### [facility] [address] [place] [id number] Canelo Zena ALT [Catalytic activity/Vol] 39 U/L Normal 21-72 [facility] Comment on above: Performed By: #### C BC #### [facility] [address] [place] [id number] Canelo Zena Anion gap [Moles/Vol] 12.3 mmol/L Normal [facility] Comment on above: Performed By: #### C BC #### [facility] [address] [place] [phone] Canelo Zena AST [Catalytic activity/Vol] 16 U/L Critically low 17-59 [facility] Comment on above: Performed By: #### C BC #### [facility] [address] [place] [address] Canelo Zena Bilirubin Ql (U) 1.3 mg/dL Normal 0.2-1.3 [facility] Comment on above: Performed By: #### C BC #### [facility] [address] [place] [address] Canelo Zena Calcium [Mass/Vol] 9.1 mg/dL Normal 8.4-10.2 [facility] Comment on above: Performed By: #### C BC #### [facility] [address] [place] [address] Canelo Zena Chloride [Moles/Vol] 103 mmol/L Normal 98-107 [facility] Comment on above: Performed By: #### C BC #### [facility] [address] [place] [address] Canelo Zena CO2 [Moles/Vol] 27.6 mmol/L Normal 22.0-30.0 [facility] Comment on above: Performed By: #### C BC #### [facility] [address] [place], [place] [address] Canelo Zena Creatinine [Mass/Vol] 1.12 mg/dL Normal 0.66-1.25 [facility] Comment on above: Performed By: #### C BC #### [facility] [address] [place], [place] [address] Canelo Zena EGFR-AF GREEK >60 Normal >=60 [facility] Comment on above: Performed By: #### C BC #### [facility] [address] [place] [id number] Canelo Zena EGFR-NON AF GREEK >60 Normal >=60 [facility] Comment on above: Performed By: #### C BC #### [facility] [address] [place] [id number] Canelo Zena Globulin (S) [Mass/Vol] 3.7 g/dL Normal [facility] Comment on above: Performed By: #### C BC #### [facility] [address] [place] [address] Canelo Zena Glucose [Mass/Vol] 107 mg/dL Critically high 74-106 [facility] Comment on above: Performed By: #### C BC #### [facility] [address] [place] [address] Canelo Zena Potassium [Moles/Vol] 3.9 mmol/L Normal 3.4-5.0 [facility] Comment on above: Performed By: #### C BC #### [facility] [address] [place], [place] [address] Canelo Zena Protein [Mass/Vol] 7.8 g/dL Normal 6.1-8.2 [facility] Comment on above: Performed By: #### C BC #### [facility] [address] [place], [place] [address] Canelo Zena Sodium [Moles/Vol] 139 mmol/L Normal 137-145 [facility] Comment on above: Performed By: #### C BC #### [facility] [address] [place] [address] Canelo Zena Urea nitrogen [Mass/Vol] 13.0 mg/dL Normal 9.0-20.0 [facility] Comment on above: Performed By: #### C BC #### [facility] [address] [place], [place] [phone] Canelo Zena Urea nitrogen/Creatinine [Mass ratio] 11.6 mg/mg Normal [facility] Comment on above: Performed By: #### C BC #### [facility] [address] [place] [phone] Canelo Zena URIC ACID SERUMon 08-19-2018 Urate [Mass/Vol] 6.3 mg/dL Normal 3.5-8.5 [facility] Comment on above: Performed By: #### C MP, PSASC, LIPID, URIC ####[facility] [address] [place], [place] [address]Qgnktq Zena BNPon 06-08-2018 Natriuretic peptide B (Bld) [Mass/Vol] 268.0 pg/mL Normal <=900.0 [facility] Comment on above: Performed By: #### C BC #### [facility] [address] [place] [phone] Canelo Zena CBC AUTO DIFFon 06-08-2018 Basophils (Bld) [#/Vol] 0.1 103/ul Normal 0.0-0.1 [facility] Comment on above: Performed By: #### C BC #### [facility] [address] [place] [address] Canelo Zena Basophils/100 WBC (Bld) 1.1 % Normal 0.2-2.0 [facility] Comment on above: Performed By: #### C BC #### [facility] [address] [place] [address] Canelo Zena Eosinophils (Bld) [#/Vol] 0.1 103/ul Normal 0.0-0.7 [facility] Comment on above: Performed By: #### C BC #### [facility] [address] [place] [address] Canelo Zena Eosinophils/100 WBC (Bld) 0.9 % Normal 0.9-7.0 [facility] Comment on above: Performed By: #### C BC #### [facility] [address] [place] [id number] Canelo Zena Erythrocyte distribution width (RBC) [Ratio] 14.6 % Normal 11.0-15.0 [facility] Comment on above: Performed By: #### C BC #### [facility] [address] [place] [address] Canelo Zena Hematocrit (Bld) [Volume fraction] 47.3 % Normal 42.0-54.0 [facility] Comment on above: Performed By: #### C BC #### [facility] [address] [place] [address] Canelo Zena Hemoglobin (Bld) [Mass/Vol] 16.1 g/dL Normal 14.0-18.0 [facility] Comment on above: Performed By: #### C BC #### [facility] [address] [place] [address] Canelo Zena IG # 0.03 10e3/ul Normal 0.00-0.03 [facility] Comment on above: Performed By: #### C BC #### [facility] [address] [place] [address] Canelo Zena IG % 0.3 % Normal 0.0-0.5 [facility] Comment on above: Performed By: #### C BC #### [facility] [address] [place] [address] Canelo Zena Lymphocytes (Bld) [#/Vol] 3.0 103/ul Normal 1.2-3.8 [facility] Comment on above: Performed By: #### C BC #### [facility] [address] [place] [address] Canelo Freitas Lymphocytes/100 WBC (Bld) 31.5 % Normal 20.5-60.0 [facility] Comment on above: Performed By: #### C BC #### [facility] [address] [place] [address] Canelo Freitas MANUAL DIFF REQ NO Normal [facility] Comment on above: Performed By: #### C BC #### [facility] [address] [place], [place] [id number] Canelo Finken MCH (RBC) [Entitic mass] 29.2 pg Normal 25.9-34.0 [facility] Comment on above: Performed By: #### C BC #### [facility] [address] [place], [place] [id number] Canelo Finken MCHC (RBC) [Mass/Vol] 34.0 g/dL Normal 29.9-35.2 [facility] Comment on above: Performed By: #### C BC #### [facility] [address] [place], [place] [id number] Canelo Zena MCV (RBC) [Entitic vol] 85.8 fL Normal 80.0-94.0 [facility] Comment on above: Performed By: #### C BC #### [facility] [address] [place], [place] [id number] Canelo Zena Monocytes (Bld) [#/Vol] 1.0 103/ul Critically high 0.3-0.8 [facility] Comment on above: Performed By: #### C BC #### [facility] [address] [place] [address] Canelo Zena Monocytes/100 WBC (Bld) 10.8 % Normal 1.7-12.0 [facility] Comment on above: Performed By: #### C BC #### [facility] [address] [place] [address] Canelo Zena Neutrophils (Bld) [#/Vol] 5.3 103/ul Normal 1.4-6.5 [facility] Comment on above: Performed By: #### C BC #### [facility] [address] [place] [address] Canelo Zena Neutrophils/100 WBC (Bld) 55.4 % Normal 43.0-75.0 [facility] Comment on above: Performed By: #### C BC #### [facility] [address] [place], [place] [id number] Canelo Zena Platelet mean volume (Bld) [Entitic vol] 10.2 fL Normal 9.5-13.5 [facility] Comment on above: Performed By: #### C BC #### [facility] [address] [place], [place] [id number] Canelo Zena Platelets (Bld) [#/Vol] 205 103/ul Normal 150-450 [facility] Comment on above: Performed By: #### C BC #### [facility] [address] [place], [place] [address] Canelo Zena RBC (Bld) [#/Vol] 5.51 106/ul Normal 4.70-6.10 [facility] Comment on above: Performed By: #### C BC #### [facility] [address] [place], [place] [address] Caneloravindra Freitas WBC (Bld) [#/Vol] 9.6 103/ul Normal 4.0-11.0 [facility] Comment on above: Performed By: #### C BC #### [facility] [address] [place], [place] [id number] Canelo Freitas PROF 14(COMP METB)on 019 Albumin [Mass/Vol] 4.0 g/dL Normal 3.5-5.0 [place] [facility] Comment on above: Performed By: #### C BC #### [facility] [address] [place], [place] [address] Canelo Zena Albumin/Globulin [Mass ratio] 1.2 {ratio} Normal [facility] Comment on above: Performed By: #### C BC #### [facility] [address] [place], [place] [address] Canelo Zena ALP [Catalytic activity/Vol] 77 U/L Normal 38-126 [facility] Comment on above: Performed By: #### C BC #### [facility] [address] [place], [place] [address] Canelo Zena ALT [Catalytic activity/Vol] 29 U/L Normal 21-72 [facility] Comment on above: Performed By: #### C BC #### [facility] [address] [place], [place] [address] Canelo Zena Anion gap [Moles/Vol] 10.8 mmol/L Normal [facility] Comment on above: Performed By: #### C BC #### [facility] [address] [place], [place] [address] Canelo Zena AST [Catalytic activity/Vol] 16 U/L Critically low 17-59 [facility] Comment on above: Performed By: #### C BC #### [facility] [address] [place], [place] [address] Canelo Zena Bilirubin Ql (U) 1.0 mg/dL Normal 0.2-1.3 [facility] Comment on above: Performed By: #### C BC #### [facility] [address] [place] [address] Canelo Zena Calcium [Mass/Vol] 9.2 mg/dL Normal 8.4-10.2 [facility] Comment on above: Performed By: #### C BC #### [facility] [address] [place] [address] Canelo Zena Chloride [Moles/Vol] 101 mmol/L Normal 98-107 [facility] Comment on above: Performed By: #### C BC #### [facility] [address] [place] [address] Canelo Zena CO2 [Moles/Vol] 29.4 mmol/L Normal 22.0-30.0 [facility] Comment on above: Performed By: #### C BC #### [facility] [address] [place] [address] Canelo Zena Creatinine [Mass/Vol] 1.28 mg/dL Critically high 0.66-1.25 [facility] Comment on above: Performed By: #### C BC #### [facility] [address] [place], [place] [address] Canelo Zena EGFR-AF GREEK >60 Normal >=60 [facility] Comment on above: Performed By: #### C BC #### [facility] [address] [place] [address] Canelo Zena EGFR-NON AF GREEK 56 mL/min/1.73m2 Critically low >=60 [facility] Comment on above: Performed By: #### C BC #### [facility] [address] [place], [place] [address] Canelo Zena Globulin (S) [Mass/Vol] 3.3 g/dL Normal [facility] Comment on above: Performed By: #### C BC #### [facility] [address] [place] [address] Canelo Zena Glucose [Mass/Vol] 120 mg/dL Critically high 74-106 [facility] Comment on above: Performed By: #### C BC #### [facility] [address] [place], [place] [address] Canelo Zena Potassium [Moles/Vol] 4.2 mmol/L Normal 3.4-5.0 [facility] Comment on above: Performed By: #### C BC #### [facility] [address] [place], [place] [address] Canelo Zena Protein [Mass/Vol] 7.3 g/dL Normal 6.1-8.2 [facility] Comment on above: Performed By: #### C BC #### [facility] [address] [place], [place] [address] Canelo Zena Sodium [Moles/Vol] 137 mmol/L Normal 137-145 [facility] Comment on above: Performed By: #### C BC #### [facility] [address] [place] [address] Canelo Zena Urea nitrogen [Mass/Vol] 17.0 mg/dL Normal 9.0-20.0 [facility] Comment on above: Performed By: #### C BC #### [facility] [address] [place] [id number] Canelo Zena Urea nitrogen/Creatinine [Mass ratio] 13.3 mg/mg Normal [facility] Comment on above: Performed By: #### C BC #### [facility] [address] [place], [place] [address] Canelo Zena T3, TOTAL (TRIIODOTHYRONINE) on 06-08-2018 T3, TOTAL 109 ng/dL Normal 71-180 [facility] Comment on above: Performed By: #### C BC #### [facility] [address] [place], [place] [address] [place] Zena BNPon 06-07-2018 Natriuretic peptide B (Bld) [Mass/Vol] 370.0 pg/mL Normal <=900.0 [facility] Comment on above: Performed By: #### B MP, BNP, LIVER, LIPA, CMADM #### [facility] [address] [place], [place] [address] Canelo Zena CARDIAC JEFF 3-6-9on 019 CK [Catalytic activity/Vol] 182 U/L Critically high 55-170 [facility] Comment on above: Performed By: #### C BC #### [facility] [address] [place] [address] Canelo Zena CK.MB [Mass/Vol] 3.00 ng/mL Critically high <=2.37 [facility] Comment on above: Result Comment: test repeated critical value verified Performed By: #### C BC #### [facility] [address] [place] [address] Caenlo Zena INR Coag (Bld) [Relative time] SEE BELOW Normal [facility] Comment on above: Result Comment: <0.0 34 ng/ml NEGATIVE 0.034-0.119 INDETERMINATE 0.120 AMI CUT OFF Performed By: #### C BC #### [facility] [address] [place] [address] Canelo Zena TROP 0.022 ng/mL Normal <=0.034 [facility] Comment on above: Performed By: #### C BC #### [facility] [address] [place] [address] Canelo Zena CK [Catalytic activity/Vol] 179 U/L Critically high 55-170 [facility] Comment on above: Performed By: #### C BC #### [facility] [address] [place] [address] Canelo Zena CK.MB [Mass/Vol] 3.21 ng/mL Critically high <=2.37 [facility] Comment on above: Result Comment: Test repeated. Critical value verified. Performed By: #### C BC #### [facility] [address] [place] [address] Canelo Zena INR Coag (Bld) [Relative time] SEE BELOW Normal [facility] Comment on above: Result Comment: <0.0 34 ng/ml NEGATIVE 0.034-0.119 INDETERMINATE 0.120 AMI CUT OFF Performed By: #### C BC #### [facility] [address] [place] [address] Canelo Zena TROP <0.017 Normal <=0.034 [facility] Comment on above: Performed By: #### C BC #### [facility] [address] [place], [place] [address] Canelo Freitas CK [Catalytic activity/Vol] 185 U/L Critically high 55-170 [facility] Comment on above: Performed By: #### C MREP ####[facility] [address] [place], [place] [address]Zbeyml Zena CK.MB [Mass/Vol] 3.31 ng/mL Critically high <=2.37 [facility] Comment on above: Result Comment: Test repeated. Critical value verified. Performed By: #### C MREP ####[facility] [address] [place] [address]Gerken Zena INR Coag (Bld) [Relative time] SEE BELOW Normal [facility] Comment on above: Result Comment: <0.0 34 ng/ml NEGATIVE 0.034-0.119 INDETERMINATE 0.120 AMI CUT OFF Performed By: #### C MREP ####[facility] [address] [place] [phone] Zena TROP <0.017 Normal <=0.034 [facility] Comment on above: Performed By: #### C MREP ####[facility] [address] [place] [phone] Freitas CARDIAC JEFF ADMITon 019 CK [Catalytic activity/Vol] 202 U/L Critically high 55-170 [facility] Comment on above: Result Comment: Test repeated. Critical value verified. Performed By: #### B MP, BNP, LIVER, LIPA, CMADM ####[facility] [address] [place], [place] [address]Xpgado Zena CK.MB [Mass/Vol] 3.20 ng/mL Critically high <=2.37 [facility] Comment on above: Result Comment: Test repeated. Critical value verified. Performed By: #### B MP, BNP, LIVER, LIPA, CMADM ####[facility] [address] [place] [phone] Zena INR Coag (Bld) [Relative time] SEE BELOW Normal [facility] Comment on above: Result Comment: <0.0 34 ng/ml NEGATIVE 0.034-0.119 INDETERMINATE 0.120 AMI CUT OFF Performed By: #### B MP, BNP, LIVER, LIPA, CMADM ####[facility] [address] [place] [phone] Zena LISA 116.0 ng/mL Normal <=121.0 [facility] Comment on above: Performed By: #### B MP, BNP, LIVER, LIPA, CMADM ####[facility] [address] [place], [place] [address]Pbopej Zena TROP <0.017 Normal <=0.034 [facility] Comment on above: Performed By: #### B MP, BNP, LIVER, LIPA, CMADM ####[facility] [address] [place] [phone] Zena CBC AUTO DIFFon 06-07-2018 Basophils (Bld) [#/Vol] 0.1 103/ul Normal 0.0-0.1 [facility] Comment on above: Performed By: #### C BC #### [facility] [address] [place], [place] [address] Canelo Zena Basophils/100 WBC (Bld) 1.1 % Normal 0.2-2.0 [facility] Comment on above: Performed By: #### C BC #### [facility] [address] [place], [place] [address] Canelo Zena Eosinophils (Bld) [#/Vol] 0.1 103/ul Normal 0.0-0.7 [facility] Comment on above: Performed By: #### C BC #### [facility] [address] [place], [place] [address] Canelo Zena Eosinophils/100 WBC (Bld) 1.3 % Normal 0.9-7.0 [facility] Comment on above: Performed By: #### C BC #### [facility] [address] [place], [place] [address] Canelo Zena Erythrocyte distribution width (RBC) [Ratio] 14.5 % Normal 11.0-15.0 [facility] Comment on above: Performed By: #### C BC #### [facility] [address] [place] [id number] Canelo Zena Hematocrit (Bld) [Volume fraction] 48.7 % Normal 42.0-54.0 [facility] Comment on above: Performed By: #### C BC #### [facility] [address] [place] [address] Canelo Znea Hemoglobin (Bld) [Mass/Vol] 17.0 g/dL Normal 14.0-18.0 [facility] Comment on above: Performed By: #### C BC #### [facility] [address] [place] [address] Canelo Zena IG # 0.03 10e3/ul Normal 0.00-0.03 [facility] Comment on above: Performed By: #### C BC #### [facility] [address] [place] [address] Canelo Zena IG % 0.4 % Normal 0.0-0.5 [facility] Comment on above: Performed By: #### C BC #### [facility] [address] [place], [place] [address] Canelo Zena Lymphocytes (Bld) [#/Vol] 2.5 103/ul Normal 1.2-3.8 [facility] Comment on above: Performed By: #### C BC #### [facility] [address] [place], [place] [address] Canelo Zena Lymphocytes/100 WBC (Bld) 30.8 % Normal 20.5-60.0 [facility] Comment on above: Performed By: #### C BC #### [facility] [address] [place], [place] [address] Canelo Zena MANUAL DIFF REQ NO Normal [facility] Comment on above: Performed By: #### C BC #### [facility] [address] [place], [place] [address] Canelo Zena MCH (RBC) [Entitic mass] 29.2 pg Normal 25.9-34.0 [facility] Comment on above: Performed By: #### C BC #### [facility] [address] [place], [place] [address] Canelo Zena MCHC (RBC) [Mass/Vol] 34.9 g/dL Normal 29.9-35.2 [facility] Comment on above: Performed By: #### C BC #### [facility] [address] [place], [place] [address] Canelo Zena MCV (RBC) [Entitic vol] 83.5 fL Normal 80.0-94.0 [facility] Comment on above: Performed By: #### C BC #### [facility] [address] [place] [address] Canelo Zena Monocytes (Bld) [#/Vol] 0.8 103/ul Normal 0.3-0.8 [facility] Comment on above: Performed By: #### C BC #### [facility] [address] [place] [address] Canelo Zena Monocytes/100 WBC (Bld) 9.8 % Normal 1.7-12.0 [facility] Comment on above: Performed By: #### C BC #### [facility] [address] [place] [address] Canelo Zena Neutrophils (Bld) [#/Vol] 4.5 103/ul Normal 1.4-6.5 [facility] Comment on above: Performed By: #### C BC #### [facility] [address] [place] [address] Canelo Zena Neutrophils/100 WBC (Bld) 56.6 % Normal 43.0-75.0 [facility] Comment on above: Performed By: #### C BC #### [facility] [address] [place] [address] Canelo Zena Platelet mean volume (Bld) [Entitic vol] 10.0 fL Normal 9.5-13.5 [facility] Comment on above: Performed By: #### C BC #### [facility] [address] [place] [address] Canelo Zena Platelets (Bld) [#/Vol] 202 103/ul Normal 150-450 [facility] Comment on above: Performed By: #### C BC #### [facility] [address] [place], [place] [address] Canelo Freitas RBC (Bld) [#/Vol] 5.83 106/ul Normal 4.70-6.10 [facility] Comment on above: Performed By: #### C BC #### [facility] [address] [place], [place] [address] Canelo Freitas WBC (Bld) [#/Vol] 8.0 103/ul Normal 4.0-11.0 [facility] Comment on above: Performed By: #### C BC #### [facility] [address] [place], [place] [address] HEAD WO CONon 06-07-2018 CT HEAD WO CON [address] [place] [id number] Patient: VIRAJ DOHERTY Exam Date: 06/07/2018 : 1955 Gender:M Ordering : DR DELIO BOYER D.O. Admission #: [id number] Family : DR MARILYN PATRICK . Order #: [id number] CLICK HERE TO VIEW EXAM RADIOLOGY REPORT [...] M.D. on 06/07/2018 at 11:25 Normal [facility] DRUG SCREEN RAPID (URINE)on 06-07-2018 AMP Negative Normal NEGATIVE [facility] Comment on above: Performed By: #### D RUGRPD ####[facility] N[address] [place] BAR Negative Normal NEGATIVE [facility] Comment on above: Performed By: #### D RUGRPD ####[facility] A[address]zb[address] [place] BUP Negative Normal NEGATIVE [facility] Comment on above: Performed By: #### D RUGRPD ####[facility] [address] BZO Negative Normal NEGATIVE [facility] Comment on above: Performed By: #### D RUGRPD ####[facility] [address] IAM Negative Normal NEGATIVE [facility] Comment on above: Performed By: #### D RUGRPD ####[facility] Qeblcxeavc[address] CUT-OFFS SEE BELOW Normal [facility] Comment on above: Result Comment: AMP (Amphetamine): [...] 300 ng/mL Performed By: #### D RUGRPD ####[facility] [address] [place] [address] DRUG CUT HEADER DRUG CLASS TEST SYST EM CUT-OFF CONCENTRATIONS ARE FOLLOWS: Normal [facility] Comment on above: Performed By: #### D RUGRPD ####[facility] [address] [place] [phone] Zena mAMP Negative Normal NEGATIVE [facility] Comment on above: Performed By: #### D RUGRPD ####[facility] [address] [place], [place] [address]Eqeunw Zena MTD Negative Normal NEGATIVE [facility] Comment on above: Performed By: #### D RUGRPD ####[facility] [address] [place] [phone] Zena OPI Negative Normal NEGATIVE [facility] Comment on above: Performed By: #### D RUGRPD ####[facility] [address] [place], [place] [address]Ygbpgl Zena OXY Negative Normal NEGATIVE [facility] Comment on above: Performed By: #### D RUGRPD ####[facility] [address] [place] PCP Negative Normal NEGATIVE [facility] Comment on above: Performed By: #### D RUGRPD ####[facility] [address] [place] PPX Negative Normal NEGATIVE [facility] Comment on above: Performed By: #### D RUGRPD ####[facility] [address] [place] [phone] Zena TCA Negative Normal NEGATIVE [facility] Comment on above: Performed By: #### D RUGRPD ####[facility] Taon[address]azzqi[address] [place] THC Positive Normal NEGATIVE [facility] Comment on above: Performed By: #### D RUGRPD ####[facility] D[address] [place] ECHOCARDIO M/2D COMPLETEon 0 06-07-2018 ECHOCARDIO M/2D COMPLETE [address] [place] [address] Patient: VIRAJ DOHERTYDiaz Exam Date: 06/07/2018 : 1955 Gender:M Ordering : DR MARILYN PATRICK . Admission #: [id number] Family : Order #: [id number] CLICK HERE TO VIEW EXAM ECHOCARDIOGRAM REPORT [...] Area(A4C): 14.40 cm2 Left Atrium Systolic Volume(A2C): 18199 mm3 Left Atrium Systolic Volume(A4C): 54151 mm3 Mitral Valve MV E to A [...] M.D. on 06/07/2018 at 16:47 Normal [facility] ER URINE PROFILEon 9 Bilirubin [Mass/Vol] Negative Normal NEGATIVE [facility] Comment on above: Performed By: #### E RUR ####[facility] [address] [place] [address] Zena BLOOD Negative Normal NEGATIVE [facility] Comment on above: Performed By: #### E RUR ####[facility] [address] [place] [address] Zena Clarity (U) CLEAR Normal [facility] Comment on above: Performed By: #### E RUR ####[facility] [address] [place] [address] Z[place] Color (U) LT. YELLOW Normal YELLOW [facility] Comment on above: Performed By: #### E RUR ####[facility] [address] [place] [address] Zena ERUAHD A micrscopic examina tion will be performed if indicated. Normal [facility] Comment on above: Performed By: #### E RUR ####[facility] [address] [place] [address] Zena Glucose [Mass/Vol] Negative Normal NEGATIVE [facility] Comment on above: Performed By: #### E RUR ####[facility] [address] [place] [address] Z[place] Ketones Ql (U) Negative Normal NEGATIVE [facility] Comment on above: Performed By: #### E RUR ####[facility] [address] [place] [phone] Freitas Nitrite Ql (U) Negative Normal NEGATIVE [facility] Comment on above: Performed By: #### E RUR ####[facility] [address] [place] [phone] Freitas pH (Bld) 6.5 Normal 5-9 [facility] Comment on above: Performed By: #### E RUR ####[facility] [address] [place] [phone] Freitas Protein (U) [Mass/Vol] Negative Normal [facility] Comment on above: Performed By: #### E RUR ####[facility] [address] [place] [address]Canelo Freitas SPEC GRAVITY 1.010 Normal 1.005-<=1.0 25 [facility] Comment on above: Performed By: #### E RUR ####[facility] [address] [place], [place] [address]Canelo Freitas UR MICRO IND NOT INDICATED Normal [facility] Comment on above: Performed By: #### E RUR ####[facility] [address] [place], [place] [address]Canelo Freitas Urobilinogen Qn (U) 0.2 EU/dl Normal [facility] Comment on above: Performed By: #### E RUR ####[facility] [address] [place], [place] [address]Canelo Freitas WBC (Bld) [#/Vol] Negative Normal NEGATIVE [facility] Comment on above: Performed By: #### E RUR ####[facility] [address] [place] [address]Canelo Freitas GLYCOHEMOGLOBIN A1Con 2018 Glucose [Mass/Vol] 120 mg/dL Normal [facility] Comment on above: Performed By: #### C BC #### [facility] [address] [place] [id number] Canelo Freitas HbA1c (Bld) [Mass fraction] 5.8 % Normal <=6.0 [facility] Comment on above: Performed By: #### C BC #### [facility] [address] [place] [address] Canelo Zena LIPASEon 06-07-2018 Lipase [Catalytic activity/Vol] 167.0 U/L Normal 23.0-300.0 [facility] Comment on above: Performed By: #### B MP, BNP, LIVER, LIPA, CMADM #### [facility] [address] [place] [address] Canelo Zena LIPID PROFILEon 06-07-2018 CHOL-HDL RATIO NORM SEE BELOW Normal [facility] Comment on above: Result Comment: 3.3 - 4.4 LOW RISK 4.4 - 7.1 AVERAGE RISK 7.1 - 11.0 MODERATE RISK >11.0 HIGH RISK Performed By: #### C BC #### [facility] [address] [place], [place] [address] Canelo Zena Cholesterol [Mass/Vol] 236 mg/dL Critically high <=200 [facility] Comment on above: Performed By: #### C BC #### [facility] [address] [place] [address] Canelo Zena Cholesterol in HDL [Mass/Vol] 31 mg/dL Normal [facility] Comment on above: Performed By: #### C BC #### [facility] [address] [place] [address] Canelo Zena Cholesterol in HDL [Mass/Vol] > or = 60 mg/dl - LOW CARDIOVASCULAR RISK <40 mg/dl - HIGH CARDIOVASCULAR RISK Normal [facility] Comment on above: Performed By: #### C BC #### [facility] [address] [place] [address] Canelo Zena Cholesterol in LDL [Mass/Vol] 161.2 mg/dL Normal [facility] Comment on above: Performed By: #### C BC #### [facility] [address] [place] [address] Canelo Zena Cholesterol in LDL [Mass/Vol] SEE BELOW Normal [facility] Comment on above: Result Comment: <100 mg/dl OPTIMAL 100 - 129 mg/dl NEAR OR ABOVE OPTIMAL 130 - 159 mg/dl BORDERLINE HIGH 160 - 189 mg/dl HIGH >190 mg/dl VERY HIGH Performed By: #### C BC #### [facility] [address] [place], [place] [address] Canelo Zena Cholesterol.total/Chol esterol in HDL [Mass ratio] 7.6 {ratio} Normal [facility] Comment on above: Performed By: #### C BC #### [facility] [address] [place] [address] Canelo Zena Triglyceride [Mass/Vol] 219 mg/dL Critically high <=150 [facility] Comment on above: Performed By: #### C BC #### [facility] [address] [place] [address] Canelo Zena VLDL CALC 43.8 mg/dL Normal [facility] Comment on above: Performed By: #### C BC #### [facility] [address] [place], [place] [address] Canelo Zena LIVER PROFILEon 06-07-2018 Albumin [Mass/Vol] 4.4 g/dL Normal 3.5-5.0 [facility] Comment on above: Performed By: #### B MP, BNP, LIVER, LIPA, CMADM #### [facility] [address] [place] [address] Canelo Zena Albumin/Globulin [Mass ratio] 1.2 {ratio} Normal [facility] Comment on above: Performed By: #### B MP, BNP, LIVER, LIPA, CMADM #### [facility] [address] [place] [address] Canelo Zena ALP [Catalytic activity/Vol] 83 U/L Normal 38-126 [facility] Comment on above: Performed By: #### B MP, BNP, LIVER, LIPA, CMADM #### [facility] [address] [place] [address] Canelo Zena ALT [Catalytic activity/Vol] 34 U/L Normal 21-72 [facility] Comment on above: Performed By: #### B MP, BNP, LIVER, LIPA, CMADM #### [facility] [address] [place] [address] Canelo Zena AST [Catalytic activity/Vol] 23 U/L Normal 17-59 [facility] Comment on above: Performed By: #### B MP, BNP, LIVER, LIPA, CMADM #### [facility] [address] [id number] Canelo Zena BILI, CONJUGATED 0.2 mg/dL Normal 0.0-0.3 [facility] Comment on above: Performed By: #### B MP, BNP, LIVER, LIPA, CMADM #### [facility] [address] [place], [place] [address] Canelo Zena Bilirubin Ql (U) 0.9 mg/dL Normal 0.2-1.3 [facility] Comment on above: Performed By: #### B MP, BNP, LIVER, LIPA, CMADM #### [facility] [address] [place], [place] [address] Canelo Zena Globulin (S) [Mass/Vol] 3.6 g/dL Normal [facility] Comment on above: Performed By: #### B MP, BNP, LIVER, LIPA, CMADM #### [facility] [address] [place], [place] [address] Canelo Zena Protein [Mass/Vol] 8.0 g/dL Normal 6.1-8.2 [facility] Comment on above: Performed By: #### B MP, BNP, LIVER, LIPA, CMADM #### [facility] [address] [place], [place] [address] Canelo Zena MAGNESIUMon 06-07-2018 Magnesium [Mass/Vol] 2.1 mg/dL Normal 1.6-2.3 [facility] Comment on above: Performed By: #### T SH, MG, T4 ####[facility] [address] [place], [place] [address]Zipdct Zena MRI BRAIN WO CONon 9 MRI BRAIN WO CON [address] [place] [address] Patient: VIRAJ DOHERTY Exam Date: 06/07/2018 : 1955 Gender:M Ordering : DR MARILYN PATRICK . Admission #: [id number] Family : Order #: [id number] CLICK HERE TO VIEW EXAM RADIOLOGY REPORT [...] Mcfarlane M.D. on 06/07/2018 at 15:55 Normal [facility] POINT OF CARE GLUCOSEon 05-27 Glucose [Mass/Vol] 116 mg/dL Critically high 74-106 T [facility] Comment on above: Performed By: #### P OCGLUC #### [facility] [address] [place], [place] [address] Canelo Freitas PROF CHEM 8 (BAS METB)on Anion gap [Moles/Vol] 15.0 mmol/L Normal [facility] Comment on above: Performed By: #### B MP, BNP, LIVER, LIPA, CMADM #### [facility] [address] [place], [place] [address] Canelo Freitas Calcium [Mass/Vol] 9.1 mg/dL Normal 8.4-10.2 [facility] Comment on above: Performed By: #### B MP, BNP, LIVER, LIPA, CMADM #### [facility] [address] [place] [address] Canelo Zena Chloride [Moles/Vol] 100 mmol/L Normal 98-107 [facility] Comment on above: Performed By: #### B MP, BNP, LIVER, LIPA, CMADM #### [facility] [address] [place] [address] Canelo Zena CO2 [Moles/Vol] 24.9 mmol/L Normal 22.0-30.0 [facility] Comment on above: Performed By: #### B MP, BNP, LIVER, LIPA, CMADM #### [facility] [address] [place] [address] Canelo Zena Creatinine [Mass/Vol] 1.07 mg/dL Normal 0.66-1.25 [facility] Comment on above: Performed By: #### B MP, BNP, LIVER, LIPA, CMADM #### [facility] [address] [place] [address] Canelo Zena EGFR-AF GREEK >60 Normal >=60 [facility] Comment on above: Performed By: #### B MP, BNP, LIVER, LIPA, CMADM #### [facility] [address] [place] [address] Canelo Zena EGFR-NON AF GREEK >60 Normal >=60 [facility] Comment on above: Performed By: #### B MP, BNP, LIVER, LIPA, CMADM #### [facility] [address] [place] [address] Canelo Zena Glucose [Mass/Vol] 119 mg/dL Critically high 74-106 T [facility] Comment on above: Performed By: #### B MP, BNP, LIVER, LIPA, CMADM #### [facility] [address] [place] [address] Canelo Zena Potassium [Moles/Vol] 3.9 mmol/L Normal 3.4-5.0 [facility] Comment on above: Performed By: #### B MP, BNP, LIVER, LIPA, CMADM #### [facility] [address] [address] Canelo Zena Sodium [Moles/Vol] 136 mmol/L Critically low 137-145 [facility] Comment on above: Performed By: #### B MP, BNP, LIVER, LIPA, CMADM #### [facility] [address] [place] [address] Canelo Zena Urea nitrogen [Mass/Vol] 11.0 mg/dL Normal 9.0-20.0 [facility] Comment on above: Performed By: #### B MP, BNP, LIVER, LIPA, CMADM #### [facility] [address] [place], [place] [address] Canelo Zena Urea nitrogen/Creatinine [Mass ratio] 10.3 mg/mg Normal [facility] Comment on above: Performed By: #### B MP, BNP, LIVER, LIPA, CMADM #### [facility] [address] [place] [address] Caneloravindra Finken PROTIMEon 06-07-2018 INR Coag (PPP) [Relative time] 1.05 {INR} Normal [facility] Comment on above: Performed By: #### P T, PTT #### [facility] [address] [place], [place] [id number] Canelo Zena PT Coag (PPP) [Time] 10.8 s Normal 9.0-11.6 [facility] Comment on above: Performed By: #### P T, PTT #### [facility] [address] [place], [place] [id number] Cnaelo Zena PT Coag (PPP) [Time] PLEASE NOTE: NORMAL RANGE CHANGE 11-13-2013 DUE TO REAGENT LOT CHANGE Normal [facility] Comment on above: Performed By: #### P T, PTT #### [facility] [address] [place], [place] [address] Canelo Zena PT Coag (PPP) [Time] SEE BELOW Normal [facility] Comment on above: Result Comment: PACO RED INR: 2.0 - 3.0 CONDITIONS NOT LISTED BELOW 2.5 - 3.5 FOR PROSTHETIC HEART VALVE REPLACEMENT 2.5 - 3.5 RECURRENT THROMBOSIS Performed By: #### P T, PTT #### [facility] [address] [address] Canelo Freitas PTTon 06-07-2018 aPTT Coag (Bld) [Time] 25.7 s Normal 22.3-36.2 [facility] Comment on above: Performed By: #### P T, PTT #### [facility] [address] [address] Canelo Freitas aPTT Coag (Bld) [Time] PLEASE NOTE: NORM AL RANGE CHANGE 01-20-2015 DUE TO REAGENT LOT CHANGE Normal [facility] Comment on above: Performed By: #### P T, PTT #### [facility] [address] [address] Canelo Freitas T4on 06-07-2018 T4 [Mass/Vol] 6.20 ug/dL Normal 5.53-11.00 [facility] Comment on above: Performed By: #### T SH, MG, T4 ####[facility] [address] [address]Gerken Zena TSHon 06-07-2018 TSH Qn SEE BELOW Normal [facility] Comment on above: Result Comment: <0.3 4 UIU/ml HYPERTHYROID 0.34-5.60 UIU/ml EUTHYROID >5.60 UIU/ml HYPOTHYROID Performed By: #### T SH, MG, T4 ####[facility] [id number] Zena TSH Qn 2.494 uIU/mL Normal 0.470-4.680 [facility] Comment on above: Performed By: #### T SH, MG, T4 ####[facility] [address] [address]Canelo Freitas US CAROTID ART BILon 019 Bilirubin [Mass/Vol] [address] [place] [address] Patient: VIRAJ DOHERTY Exam Date: 06/07/2018 : 1955 Gender:M Ordering : DR MARILYN PATRICK . Admission #: [id number] Family : ICU Order #: [id number] CLICK HERE TO VIEW EXAM RADIOLOGY REPORT [...] Mcfarlane M.D. on 06/07/2018 at 16:14 Normal [facility] XR CHEST 2 Von 06-07-2018 XR CHEST 2 V [address] [place] [address] Patient: VIRAJ DOHERTY Exam Date: 06/07/2018 : 1955 Gender:M Ordering : DR DELIO BOYER D.O. Admission #: [id number] Family : DR MARILYN PATRICK . Order #: [id number] CLICK HERE TO VIEW EXAM RADIOLOGY REPORT [...] Mcfarlane M.D. on 06/07/2018 at 11:37 Normal [facility] Vital Signs Date Time Vital Sign Value Performing Clinician Shannan roy 12-20-2022 09:08-0400 Diastolic blood pressure 89 mm[Hg] MD Nolberto Hernandez Work Phone: [facility] 12-20-2022 09:08-0400 Systolic blood pressure 150 mm[Hg] MD Nolberto Hernandez Work Phone: [facility] 12-20-2022 04:48-0400 Body temperature 98 [degF] MD Nolberto Hernandez Work Phone: [facility] 12-20-2022 04:48-0400 Heart rate 83 /min MD Nolberto Hernandez Work Phone: [facility] 12-20-2022 04:48-0400 Respiratory rate 18 /min MD Nolberto Hernandez Work Phone: [facility] 12-20-2022 04:48-0400 SaO2% (BldA) [Mass fraction] 97 % MD Nolberto Hernandez Work Phone: [facility] 12-19-2022 11:15-0400 Body height 180.34 cm MD Nolberto Hernandez Work Phone: [facility] 12-17-2022 05:25-0400 Body weight 69.7 kg MD Nolberto Hernandez Work Phone: [facility] 12-12-2022 08:00-0400 Body temperature 97.9 [degF] MD Nolberto Hernandez Work Phone: [facility] 12-12-2022 08:00-0400 Diastolic blood pressure 79 mm[Hg] MD Nolberto Hernandez Work Phone: [facility] 12-12-2022 08:00-0400 Heart rate 91 /min MD Nolberto Hernandez Work Phone: [facility] 12-12-2022 08:00-0400 Respiratory rate 20 /min MD Nolberto Hernandez Work Phone: [facility] 12-12-2022 08:00-0400 SaO2% (BldA) [Mass fraction] 94 % MD Nolberto Hernandez Work Phone: [facility] 12-12-2022 08:00-0400 Systolic blood pressure 104 mm[Hg] MD Nolberto Hernandez Work Phone: [facility] 12-12-2022 05:52-0400 Body weight 70.4 kg MD Nolberto Hernandez Work Phone: [facility] 12-09-2022 23:55-0400 Body height 180.34 cm MD Nolberto Hernandez Work Phone: [facility] 11-15-2022 13:01-0400 Diastolic blood pressure 73 mm[Hg] MD Nolberto Hernandez Work Phone: [facility] 11-15-2022 13:01-0400 Respiratory rate 16 /min MD Nolberto Hernandez Work Phone: [facility] 11-15-2022 13:01-0400 SaO2% (BldA) [Mass fraction] 96 % MD Nolberto Hernandez Work Phone: [facility] 11-15-2022 13:01-0400 Systolic blood pressure 129 mm[Hg] MD Nolberto Hernandez Work Phone: [facility] 11-15-2022 05:00-0400 Body temperature 97.7 [degF] MD Nolberto Hernandez Work Phone: [facility] 11-15-2022 05:00-0400 Heart rate 67 /min MD Nolberto Hernandez Work Phone: [facility] 11-12-2022 05:24-0400 Body weight 69.8 kg MD Nolberto Hernandez Work Phone: [facility] 11-10-2022 14:53-0400 Body height 180.34 cm MD Nolberto Hernandez Work Phone: [facility] 11-02-2022 12:29-0400 Body temperature 98.4 [degF] MD Nolberto Hernandez Work Phone: [facility] 11-02-2022 12:29-0400 Diastolic blood pressure 72 mm[Hg] MD Nolberto Hernandez Work Phone: [facility] 11-02-2022 12:29-0400 Heart rate 83 /min MD Nolberto Hernandez Work Phone: [facility] 11-02-2022 12:29-0400 Respiratory rate 16 /min MD Nolberto Hernandez Work Phone: [facility] 11-02-2022 12:29-0400 SaO2% (BldA) [Mass fraction] 97 % MD Nolberto Hernandez Work Phone: [facility] 11-02-2022 12:29-0400 Systolic blood pressure 142 mm[Hg] MD Nolberto Hernandez Work Phone: [facility] 11-02-2022 06:00-0400 Body weight 71 kg MD Nolberto Hernandez Work Phone: [facility] 10-31-2022 14:37-0400 Body height 180.34 cm MD Nolberto Hernandez Work Phone: [facility] 10-30-2022 22:31-0400 Diastolic blood pressure 110 mm[Hg] MD Nolberto Hernandez Work Phone: [facility] 10-30-2022 22:31-0400 Heart rate 65 /min MD Nolberto Hernandez Work Phone: [facility] 10-30-2022 22:31-0400 Respiratory rate 18 /min MD Nolberto Hernandez Work Phone: [facility] 10-30-2022 22:31-0400 SaO2% (BldA) [Mass fraction] 96 % MD Nolberto Hernandez Work Phone: [facility] 10-30-2022 22:31-0400 Systolic blood pressure 200 mm[Hg] MD Nolberto Hernandez Work Phone: [facility] 10-30-2022 19:11-0400 Body height 175.26 cm MD Nolberto Hernandez Work Phone: [facility] 10-30-2022 19: Body weight 74.84 kg MD Nolberto Hernandez Work Phone: [facility] 10-30-2022 19: Body temperature 98.6 [degF] MD Nolberto Hernandez Work Phone: [facility] Encounters Encounter Date Encounter Type Care Provider Facility Start: 12-12-2022 End: 12-20-2022 Evaluation and management of inpatient Jose Martin Sen Facility:[facility] Start: 12-12-2022 End: 12-20-2022 Evaluation and management of inpatient MD Nolberto Hernandez Work Phone: [facility] Work Phone: Start: 12-10-2022 End: 12-12-2022 Evaluation and management of inpatient Davey Beauchampescu Facility:[facility] Start: 12-09-2022 End: 12-12-2022 Evaluation and management of inpatient MD Nolberto Hernandez Work Phone: [facility] Work Phone: Start: 12-07-2022 End: 12-07-2022 ambulatory Jose Martin Sen Facility:[facility] Start: 12-07-2022 End: 12-07-2022 ambulatory MD Nolberto Hernandez Work Phone: [facility] Work Phone: Start: 12-07-2022 End: 12-07-2022 Discharged Recurring MD Nolberto Hernandez Work Phone: [facility] [address] Start: 12-07-2022 Registered Recurring MD Nolberto alanis Work Phone: [facility] [address] Start: 11-02-2022 End: 11-15-2022 Evaluation and management of inpatient Jose Martin Sen Facility:[facility] Start: 11-02-2022 End: 11-15-2022 Evaluation and management of inpatient MD Nolberto Hernandez Work Phone: [facility] Work Phone: Start: 10-30-2022 End: 11-02-2022 Evaluation and management of inpatient Davey Harding Facility:[facility] Start: 10-30-2022 End: 11-02-2022 Evaluation and management of inpatient MD Nolberto Hernandez Work Phone: [facility] Work Phone: Start: 09-06-2022 End: 09-07-2022 ambulatory SHANNON JORDAN Facility:[facility] [place] [place] Start: 09-06-2022 End: 09-06-2022 Patient encounter procedure SHANNON JORDAN [facility] Start: 09-07-2021 End: 09-07-2021 Patient encounter procedure SHANNON JORDAN [facility] Start: 08-19-2018 End: 08-20-2018 Patient encounter procedure MARILYN HOY Facility: Start: 06-10-2018 End: 06-11-2018 Patient encounter procedure DEFAULT PHYSICIAN Facility:[facility] Start: 06-07-2018 End: 06-08-2018 Evaluation and management [...] on above: Performed By: #### C #### [facility] [address] [address] Canelo Freitas Plan of Treatment Date Care Activity Detail Author Start: 12-19-2022 [facility] Start: 12-18-2022 Arrangement of care procedure [facility] Start: 12-13-2022 Administration of prophylactic treatment [facility] Start: 12-12-2022 Hospital admission [facility] Start: 12-12-2022 Referral to clinical firewood cutter [facility] Start: 12-12-2022 [facility] Start: 12-12-2022 [facility] Start: 12-11-2022 Referral to rehabili tation physician [facility] Start: 12-10-2022 Hospital admission [facility] Start: 12-10-2022 Referral to neurologist [facility] Start: 11-15-2022 [facility] Start: 11-09-2022 Blood chemistry [facility] Start: 11-09-2022 [facility] Start: 11-08-2022 Blood chemistry [facility] Start: 11-08-2022 [facility] Start: 11-07-2022 Blood chemistry [facility] Start: 11-07-2022 [facility] Start: 11-06-2022 Administration of prophylactic treatment [facility] Start: 11-06-2022 Blood chemistry [facility] Start: 11-06-2022 [facility] Start: 11-05-2022 Blood chemistry [facility] Start: 11-05-2022 [facility] Start: 11-04-2022 Blood chemistry [facility] Start: 11-04-2022 [facility] Start: 11-03-2022 Blood chemistry [facility] Start: 11-03-2022 [facility] Start: 11-02-2022 Hospital admission [facility] Start: 11-02-2022 Referral to clinical firewood cutter [facility] Start: 11-02-2022 Blood chemistry [facility] Start: 11-02-2022 End: 11-02-2022 [facility] Start: 11-01-2022 Blood chemistry [facility] Start: 11-01-2022 [facility] Start: 10-31-2022 Referral to rehabili tation physician [facility] Start: 10-31-2022 Blood chemistry [facility] Start: 10-31-2022 MRI of head MR head/brain wo con [facility] Start: 10-31-2022 End: 10-31-2022 [facility] Start: 10-30-2022 [facility] Start: 10-30-2022 Hospital admission [facility] Start: 10-30-2022 Physical therapy procedure [facility] Start: 10-30-2022 Referral to neurologist [facility] Start: 10-30-2022 Referral to occupati onal therapist [facility] Start: 10-30-2022 CT angiography of head [facility] Start: 10-30-2022 CT angiography of ne ck vessels [facility] Start: 10-30-2022 CT Head WO contrast [facility] Start: 10-30-2022 CT of head without contrast CT head stroke alert wo con [facility] Start: 10-30-2022 Plain chest X-ray XR chest 1V portab le [facility] Start: 10-30-2022 XR Chest Single view [facility] Anion gap measurement [facility] Basophils [#/volume] in Blood by Automated count [facility] Basophils/100 leukoc ytes in Blood by Automated count [facility] Bilirubin measuremen t, urine [facility] Color of Urine [facility] Detection of hemoglobin [facility] Eosinophils [#/volum e] in Blood [facility] Eosinophils/100 leuk ocytes in Blood by Automated count [facility] Erythrocyte distribu tion width [Ratio] by Automated count [facility] Erythrocytes [#/volu me] in Blood [facility] Glucose [Mass/volume ] in Urine by Test strip [facility] Hematocrit [Volume Fraction] of Blood [facility] Hemoglobin [Mass/vol ume] in Blood [facility] Leukocytes [#/volume ] corrected for nucleated erythrocytes in Blood by Automated coun [facility] Leukocytes [#/volume ] in Blood [facility] Lymphocytes [#/volum e] in Blood by Automated count [facility] Lymphocytes/100 leuk ocytes in Blood by Automated count [facility] MCH [Entitic mass] b y Automated count [facility] MCHC [Mass/volume] b y Automated count [facility] MCV [Entitic volume] by Automated count [facility] Measurement of keton es in urine using dipstick [facility] Monocytes [#/volume] in Blood by Automated count [facility] Monocytes/100 leukoc ytes in Blood by Automated count [facility] Neutrophils [#/volum e] in Blood by Automated count [facility] Neutrophils/100 leuk ocytes in Blood by Automated count [facility] Nucleated erythrocyt es [Presence] in Blood by Automated count [facility] Patient Education [facility] Work Phone: Patient referral [facility] Work Phone: Platelet mean volume [Entitic volume] in Blood by Automated count [facility] Platelets [#/volume] in Blood [facility] Protein measurement, urine [facility] Urinalysis, specific gravity measurement [facility] Urine dipstick for nitrite [facility] Urine dipstick for s pecific gravity [facility] Urine pH test [facility] Urobilinogen concent ration, test strip measurement [facility] Payers Date Payer Category Payer Unknown [id number] 2022 Self-pay 1961 Medicare [id number] 1955 Unknown [id number] 2.16.8 [id number] 1955 Unknown [id number] 2.16.84 [id number] 1955 Unknown [id number] 2.16.84 [id number] 1955 Unknown [id number] 2.16.8 [id number] Medicaid Medicaid [id number] Unknown Unknown [id number] 2.16.8 [id number] Unknown [id number] 2.16.8 [id number] Unknown [id number] 2.16.8 [id number] Unknown [id number] 2.16.8 [id number] Unknown [id number] 2.16.8 [id number] Social History Date Type Detail Facility Tobacco smoking status No Smokin g Status Entered [facility] Sex Assigned At Male [facility] Tobacco smoking status No Smokin g Status Entered [facility] Start: 10-30-2022 Tobacco smoking stat [facility] Current some day smoker [facility] Start: 1955 Sex Assigned At Male [facility] Start: 10-31-2022 End: 12-13-2022 Tobacco smoking status UTIS Never smoked tobacco (finding) [facility] Start: 12-12-2022 Tobacco smoking stat [facility] Ex-smoker (finding) [facility] Goals Date Patient Goal Desired Activity /State Functional Status Date Assessment Result Facility 12-20-2022 Functional status Patient is Pro gressing Toward Baseline [facility] Work Phone: 12-12-2022 Functional status Patient Not at Baseline [facility] Work Phone: 11-15-2022 Functional status Patient Not at Baseline [facility] Work Phone: 11-02-2022 Functional status Patient Not at Baseline [facility] Work Phone: Mental Status Date Assessment Result Facility 12-20-2022 Cognitive function Cognitive Sta tus Patient is Progressing Toward Baseline [facility] Work Phone: 12-12-2022 Cognitive function Cognitive Sta tus Patient Not at Baseline [facility] Work Phone: 11-15-2022 Cognitive function Cognitive Sta tus Patient at Baseline [facility] Work Phone: 11-02-2022 Cognitive function Cognitive Sta tus Patient at Baseline [facility] Work Phone: Clinical Notes 09-07-2021 to 12-21-2022 Note Date & Type Note Facility 12-21-2022 Hospital Discharg e instructions Additional Instructions -Diet: low fat, low cholesterol. -Ambulate as tolerated. No driving unless cleared by physician, may ride in car. You will have Outpatient Therapy at [facility] ([phone] ext. [phone]). The order for this has been sent [...] to inform them prior to your appointment. [facility] Work Phone: 12-18-2022 Progress note Note Date/Time December 18, 2022 10:09am [facility] [address] [place] [address] Physiatry(Rehab) Progress Note Signed Patient: Viraj Doherty MR#: [id number] : 1955 Acct:[id number] Age/Sex: 67 / M Adm Date: 3 Loc: Room: [address] [place] [address] Type: ADM IN Attending Dr: Jose Martin [...] mg 12/12/22 18:42 Bisacodyl 10 Mg Supp.Rect MN 12/12/23 18:41 DAILY PRN Constipation Clopidogrel Bisulfate 75 mg 12/13/22 09:00 12/18/22 08:09 Clopidogrel Bisulfate 75 Mg Tablet PO 12/13/23 08:59 75 mg DAILY [facility] Administration Cyanocobalamin 1,000 mcg 12/13/22 09:00 12/18/22 08:09 Cyanocobalamin 1,000 Mcg Tablet PO 12/13/23 08:59 1,000 mcg QAM [facility] Administration Docusate Sodium 100 mg 12/12/22 18:42 Docusate 100 Mg Capsule PO 12/12/23 18:41 BID PRN Constipation Docusate Sodium 283 mg 12/12/22 18:42 Docusate Enema 283 Mg/5 Ml Enema MN 12/12/23 18:41 DAILY PRN Constipation Enoxaparin Sodium [...] equipment to enhance the patient's a functional orthodox Ensure adequate nutrition and hydration Sleep: No concerns. Pain: No issues. Discharge planning: Home with in a week or two. Plan: I completed a substantive portion of this encounter, the medical decision makingportion of this note in its entirety, including Allied health note review, nursing note review, homemaking rehabilitation consultant note review, discussion with nursing and case management, and more than 50% of my time was spent on counseling and coordination of care, time spent 40 minutes Patient was personally seen by me, Dr. Sen, on the day of encounter, reviewed the history and the relevant portions of the chart, including current orders, allied health and homemaking rehabilitation consultant notes, labs/imaging and performed garner elements of exam and I formulated the plan of care and facilitated the medical decision making. Documented By: Jose Martin Sen MD 12/18/22 1008 Signed By: <Electronically signed by Jose Martin Sen MD> 12/18/22 1612 [facility] Work Phone: 1([phone] 712-278610-21-2023 Progress note Author Jose Martin Sen [facility] December 16, 2022 9:30am Note Date/Time December 16, 2022 9 :30am [facility] [address] [place] [address] Physiatry(Rehab) Progress Note Signed Patient: Viraj Doherty MR#: [id number] : 1955 Acct:[id number] Age/Sex: 67 / M Adm Date: 3 Loc: 5T Room: 5M4849-8 Type: ADM IN Attending Dr: Jose Martin [...] mg 12/12/22 18:42 Bisacodyl 10 Mg Supp.Rect MN 10/16/24 18:41 DAILY PRN Constipation Clopidogrel Bisulfate [...] 18:42 Docusate Enema 283 Mg/5 Ml Enema MN 12/12/23 18:41 DAILY PRN Constipation Enoxaparin Sodium [...] Capsule PO 12/12/23 15:29 150 mg Q48H [facility] Administration Sennosides 2 tab 12/13/22 12:00 [...] equipment to enhance the patient's a functional orthodox Ensure adequate nutrition and hydration Sleep: No concerns. Pain: No issues. Discharge planning: Home with in a week or two. Plan: I completed a substantive portion of this encounter, the medical decision makingportion of this note in its entirety, including Allied health note review, nursing note review, homemaking rehabilitation consultant note review, discussion with nursing and case management, and more than 50% of my time was spent on counseling and coordination of care, time spent 40 minutes Patient was personally seen by me, Dr. Sen, on the day of encounter, reviewed the history and the relevant portions of the chart, including current orders, allied health and homemaking rehabilitation consultant notes, labs/imaging and performed garner elements of exam and I formulated the plan of care and facilitated the medical decision making. Documented By: Jose Martin Sen MD 12/16/22927 Signed By: <Electronically signed by Jose Martin Sen MD> 12/16/22929 [facility] Work Phone: 1([phone] 818-656210-21-2023 Progress note Author Jose Martin Sen [facility] December 16, 2022 7:21am Note Date/Time December 14, 2022 1 2:52pm [facility] [address] [place] [address] Physiatry(Rehab) Progress Note Signed Patient: Viraj Doherty MR#: [id number] : 1955 Acct:[id number] Age/Sex: 67 / M Adm Date: 3 Loc: Room: [address] [place] [address] Type: ADM IN Attending Dr: Jose Martin [...] mg 12/12/22 18:42 Bisacodyl 10 Mg Supp.Rect MN 12/12/23 18:41 DAILY PRN Constipation Clopidogrel Bisulfate 75 mg 12/13/22 09:00 12/14/22 09:04 Clopidogrel Bisulfate 75 Mg Tablet PO 12/13/23 08:59 75 mg DAILY [facility] Administration Cyanocobalamin 1,000 mcg 12/13/22 09:00 12/14/22 09:04 Cyanocobalamin 1,000 Mcg Tablet PO 12/13/23 08:59 1,000 mcg QAM [facility] Administration Docusate Sodium 100 mg 12/12/22 18:42 Docusate 100 Mg Capsule PO 12/12/23 18:41 BID PRN Constipation Docusate Sodium 283 mg 12/12/22 18:42 Docusate Enema 283 Mg/5 Ml Enema MN 12/12/23 18:41 DAILY PRN Constipation Enoxaparin Sodium [...] Capsule PO 12/12/23 15:29 Not Given Q48H [facility] Sennosides 2 tab 12/13/22 12:00 Sennosides 8.6 Mg Tablet PO 12/13/23 11:59 DAILY@12 PRN If no BM in 2 days Sodium Chloride 0 ml 12/12/22 18:42 Sodium Chloride 0.9 % 10 Ml Syringe IV-PUSH 12/12/23 18:41 PRN PRN Flush Valsartan 160 mg 12/13/22 09:00 12/14/22 09:04 Valsartan 160 Mg Tablet PO 12/13/23 08:59 160 mg DAILY [facility] Administration Assessment/Plan <Janice Altamirano WASHER CARCASS - Last Filed: 12/14/22 12:53> Assessment/Plan (1) [...] equipment to enhance the patient's a functional orthodox Ensure adequate nutrition and hydration Sleep: No concerns. Pain: No issues. Discharge planning: Home with in 7 to 10 days. I spent greater than 15 minutes for services, including ickj-ty-wdgn encounter with the patient, discussion of the case, plan of care, and exam; and tlmbeuf-yv-gdet activities, such as reviewing pertinent homemaking rehabilitation consultant documentation, recent therapy notes, laboratory and radiology studies, and discussion of case with care team including physician, nursing, special education case manager, and therapists. More than 50 % of [...] Allied health note review, nursing note review, homemaking rehabilitation consultant note review, discussion with nursing and case management, and more than 50% of my time was spent on counseling and coordination of care, time spent 40 minutes Patient was personally seen by me, Dr. Sne, on the day of encounter, reviewed the history and the relevant portions of the chart, including current orders, allied health and homemaking rehabilitation consultant notes, labs/imaging and performed garner elements of exam and I formulated the plan of care and facilitated the medical decision making. Encourage p.o. intake. Blood pressure less than 100 or 110 consistently, would consider fluid bolus. Documented By: Janice Altamirano APRN 12/14/22 1 246 Signed By: <Electronically signed by JASMIN Altamirano> 12/14/22 1253 <Electronically signed by Jose Martin Sen MD> 12/16/22 0721 [facility] Work Phone: [phone] 557-793610-19-2023 Consult note Author Quynh Galvan [facility] December 14, 2022 7:01am Note Date/Time December 13, 2022 3 :52pm [facility] [address] [place] [address] Hospitalist Consult Note Signed Patient: Viraj Doherty MR#: [id number] : 1955 Acct:[id number] Age/Sex: 67 / M Adm Date: 3 Loc: Room: [address] [place] [address] Type: ADM IN Attending Dr: Jose Martin [...] negative unless noted in the HPI below [facility] Medical History (Updated 12/13/22 @ 11:18 [...] mg 12/12/22 18:42 Bisacodyl 10 Mg Supp.Rect MN 12/12/23 18:41 DAILY PRN Constipation Clopidogrel Bisulfate 75 mg 12/13/22 09:00 12/13/22 09:32 Clopidogrel Bisulfate 75 Mg Tablet PO 12/13/23 08:59 75 mg DAILY [facility] Administration Cyanocobalamin 1,000 mcg 12/13/22 09:00 12/13/22 09:32 Cyanocobalamin 1,000 Mcg Tablet PO 12/13/23 08:59 1,000 mcg QAM [facility] Administration Docusate Sodium 100 mg 12/12/22 18:42 Docusate 100 Mg Capsule PO 12/12/23 18:41 BID PRN Constipation Docusate Sodium 283 mg 12/12/22 18:42 Docusate Enema 283 Mg/5 Ml Enema MN 12/12/23 18:41 DAILY PRN Constipation Enoxaparin Sodium [...] % (Auto) 49.3, Lymph % (Auto) 36.9, Riley % (Auto) 9.9, Eos % (Auto) 2.7, Baso % (Auto) 1.2, Nucleat RBC Rel Count 0.1, Neut # (Auto) 3.3, Lymph # (Auto) 2.5, Riley # (Auto) 0.7, Eos # (Auto) 0.2, [...] signed by Quynh Galvan MD> 12/14/22 0701 [facility] Work Phone: 1(243) 133-504710-18-2023 History and physical note Author Jose Martin Sen [facility] October 18th, 2023 3:06pm Note Date/Time December 13, 2022 1 0:16am [facility] [address] [place] [address] Physiatry (Rehab) H&P Signed Patient: Viraj Doherty MR#: [id number] : 1955 Acct:[id number] Age/Sex: 67 / M Adm Date: 3 Loc: Room: [address] [place] [address] Type: ADM IN Attending Dr: Jose Martin [...] discomfort. No cardiopulmonary symptoms. No GI/ concerns. [facility] Medical History (Updated 12/13/22 @ 11:18 [...] Bisacodyl (Bisacodyl 10 Mg Supp.Rect) 10 mg MN DAILY PRN PRN Reason: Constipation Stop: 12/12/23 [...] Enema 283 Mg/5 Ml Enema) 283 mg MN DAILY PRN PRN Reason: Constipation Stop: 12/12/23 [...] Complex 150 Mg Capsule) 150 mgPO Q48H [facility] Stop: 12/12/23 15:29 Last Admin: 12/13/22 07:50 Dose: Not Given Sennosides (Sennosides 8.6 Mg Tablet) 2 tab PO DAILY@12 PRN PRN Reason: If no BM in 2 days Stop: 12/13/23 11:59 Sodium Chloride (Sodium Chloride 0.9 % 10 Ml Syringe) 0 ml IV-PUSH PRN PRN PRN Reason: Flush Stop: 12/12/23 18:41 Valsartan (Valsartan 160 Mg Tablet) 160 mg PO DAILY [facility] Stop: 12/13/23 08:59 Last Admin: 12/13/22 [...] % (Auto) 49.3 Lymph % (Auto) 36.9 Riley % (Auto) 9.9 Eos % (Auto) 2.7 Baso % (Auto) 1.2 Nucleat RBC Rel Count 0.1 Neut # (Auto) 3.3 Lymph # (Auto) 2.5 Riley # (Auto) 0.7 Eos # (Auto) 0.2 [...] mobility Anticipated interventions: Physician management, PT, OT, MOTOR AND CHASSIS INSPECTOR, , Dietitian, RehabNursing, Case management 2. Therapy Functional Outcome/Goal: Anticipate independent for transfers Anticipated interventions: Physician management, PT, OT, MOTOR AND CHASSIS INSPECTOR, Case management, Dietitian, Rehab Nursing 3. Therapy Functional Outcome/Goal: Anticipate independent ambulation Anticipated interventions: Physician management, PT, OT, MOTOR AND CHASSIS INSPECTOR Case management, Dietitian, Rehab Nursing 4.Therapy Functional Outcome/Goal: Anticipate independent self-care Anticipated interventions: Physician management, PT, OT, MOTOR AND CHASSIS INSPECTOR, Case management, Dietitian, Rehab Nursing 5.Therapy Functional Outcome/Goal: Anticipate independent functional communication / swallowing Anticipated interventions: Physician management, PT, OT, MOTOR AND CHASSIS INSPECTOR, Case management, Dietitian, Rehab Nursing Required Therapy [...] additional therapy on as needed basis. Comments: MOTOR AND CHASSIS INSPECTOR to evaluate and treat patient?s cognition, language and communication skills, assess swallow function. Other: Dietitian, Rehab nursing, Wound, P&O, Neuropsychology as needed RATIONALE FOR IRF ADMISSION: Patient has both medical and functional complexities that require 24 hour daily monitoring and intervention from Telehealth Coordinator as well as other consulting physicians including internal medicine as well as 24 hour daily spinning mule tender nursing - for medical safe / optimal management. Patient requires interdisciplinary therapy team rehabilitation care including OT, PT, MOTOR AND CHASSIS INSPECTOR, SW, Psychology, Rehab Nursing, requires and can [...] equipment to enhance the patient's a functional orthodox Ensure adequate nutrition and hydration Sleep: No concerns. Pain: No issues. Discharge planning: Home with in 7 to 10 days. I spent greater than 35 minutes for services, including qcbw-ys-wmjq encounter with the patient, discussion of the case, plan of care, and exam; and lfmnrhw-as-uxpz activities, such as reviewing pertinent homemaking rehabilitation consultant documentation, recent therapy notes, laboratory and radiology studies, and discussion of case with care team including physician, nursing, special education case manager, and therapists. More than 50 % of time was spent on patient/family counseling or coordination ofcare. Plan: I completed a substantive portion of this encounter, the medical decision makingportion of this note in its entirety, including Allied health note review, nursing note review, homemaking rehabilitation consultant note review, discussion with nursing and case management, and more than 50% of my time was spent on counseling and coordination of care, time spent 75 minutes Patient was personally seen by me, Dr. Sen, on the day of encounter, within 24hours of rehab admission, reviewed the history and the relevant portions of the chart, including current orders, allied health and homemaking rehabilitation consultant notes, labs/imaging and performed garner elements of exam and I formulated the plan of care and facilitated the medical decision making. In addition to above-Goal BP 140-160s with intracranial atherosclerosis. Seizureprecautions. Documented By: Janice Altamirano APRN 12/13/22 1 014 Signed By: <Electronically signed by JASMIN Altamirano> 12/13/22 1120 <Electronically signed by Jose Martin Sen MD> 12/13/22 1506 [facility] Work Phone: [phone] 949-132910-17-2023 Consult note Author Santosh Rivera [facility] December 12, 2022 2:19pm Note Date/Time December 12, 2022 2 :11pm [facility] [address] [place] [address] Physiatry (Rehab) Consult Note Signed Patient: Viraj Doherty MR#: [id number] : 1955 Acct:[id number] Age/Sex: 67 / M Adm Date: 3 Loc: Room: [address] [place] [address] Type: ADM IN Attending Dr: Davey Harding [...] [facility]iparesis [facility] who [facility] to [facility] following a generalized seizure witnessed by the [...] negative unless noted below or in HPI [facility] Medical History CVA (cerebral vascular accident) [...] of left thalamic CVA who presents to [facility] IRF following hospitalization for new left MCA CVA and seizure disorder. He has continued impaired mobility and impaired independence with ADLs and IADLs requiring PT/OT/MOTOR AND CHASSIS INSPECTOR 5-7 days/week 3 hours/day to maximize safety [...] supervision is both reasonable and necessary, including nntx-cu-eieu visits at least 3 days/week with the [...] Allied health note review, nursing note review, homemaking rehabilitation consultant note review, discussion with nursing and case management, and more than 50% of my time was spent on counseling and coordination of care, time spent 65 minutes Patient was personally seen by me, Dr. Rivera, on the day of encounter, reviewed the history and the relevant portions of the chart, including current orders, allied health and homemaking rehabilitation consultant notes, labs/imaging and performed garner elements of exam and I formulated the plan of care and facilitated the medical decision making. Documented By: Santosh Rivera MD 1410 Signed By: <Electronically signed by Santosh Rivera MD> 12/12/22 1419 [facility] Work Phone: 1(915) 144-803210-17-2023 Progress note Author Davey Harding [facility] December 12, 2022 1:27pm Note Date/Time December 12, 2022 1 :27pm [facility] [address] [place] [address] Hospitalist Progress Note Signed Patient: Viraj Doherty MR#: [id number] : 1955 Acct:[id number] Age/Sex: 67 / M Adm Date: 3 Loc: Room: [address] [place] [address] Type: ADM IN Attending Dr: Davey Harding [...] Tablet.Dr PO 12/10/23 08:59 81 mg DAILY [facility] Administration Atorvastatin Calcium 80 mg 12/10/22 21:00 [...] signed by Davey Harding MD> 12/12/22 1327 [facility] Work Phone: 1(955) 527-573810-17-2023 Discharge summary Author Davey Harding [facility] December 12, 2022 1:25pm Note Date/Time December 11, 2022 2 :52pm [facility] [address] [place] [address] Discharge Summary Signed Patient: Viraj Doherty MR#: [id number] : 1955 Acct:[id number] Age/Sex: 67 / M Adm Date: 3 Loc: Room: [address] [place] [address]: Davey Harding MD Copies to: [...] % (Auto) 58.7, Lymph % (Auto) 30.3, Riley % (Auto) 7.5, Eos % (Auto) 2.3, Baso % (Auto) 1.2, Nucleat RBC Rel Count 0.1, Neut # (Auto) 4.7, Lymph # (Auto) 2.4, Riley # (Auto) 0.6, Eos # (Auto) 0.2, [...] Discharge Plan Discharge Plan Patient Disposition: Rehab [facility] Activity: Other Comment: Please follow seizure precautions [...] 40 mg subcut Q14D Qty: 0 0RF gwknarqnmc-iavhgbdug-ahzpavytt 10-320-25 mg tablet 1 tab PO DAILY [...] restart this. Follow Up: [facility] [Outside] - 12/26/22 9:00 am Documented By: Davey Harding MD 12/11/22 6141 Signed By: <Electronically signed by Davey Harding MD> 12/12/22 1326 [facility] Work Phone: 1(793) 605-217810-16-2023 Progress note Author Jose David Aponte [facility] December 11, 2022 3:31pm Note Date/Time December 11, 2022 3 :31pm [facility] [address] [place], [place] [id number] Neurology Progress Note Signed Patient: Viraj Doherty MR#: [id number] : 1955 Acct:[id number] Age/Sex: 67 / M Adm Date: 3 Loc: Room: [address] [place] [address] Type: ADM IN Attending Dr: Davey Harding [...] rapidly alternating movements. No limb dysmetria with dymqng-nkjy-lnavgr testing. DATA REVIEW: -CT head without acute [...] by Jose David Aponte, DO> 12/11/22 1531 [facility] Work Phone: [phone] 839-602710-16-2023 Progress note Author Davey Harding [facility] December 11, 2022 3:09pm Note Date/Time December 11, 2022 3 :09pm [facility] [address] [place] [address] Hospitalist Progress Note Signed Patient: Viraj Doherty MR#: [id number] : 1955 Acct:[id number] Age/Sex: 67 / M Adm Date: 3 Loc: Room: [address] [place] [address] Type: ADM IN Attending Dr: Davey Harding [...] stores. Initiate oral supplementation Documented By: Davey Hardign MD 12/11/22 1507 Signed By: <Electronically signed by Davey Harding MD> 12/11/22 1505 [facility] Work Phone: [phone]) 649-956610-16-2023 Progress note Author Mindi Juan [facility] December 10, 2022 10:03pm Note Date/Time December 10, 2022 9 :59pm [facility] [address] [place] [address] Hospitalist Progress Note Signed Patient: Viraj Doherty MR#: [id number] : 1955 Acct:[id number] Age/Sex: 67 / M Adm Date: 3 Loc: Room: [address] [place] [address] Type: ADM IN Attending Dr: Mindi Juan [...] Laboratory work up and Imaging studies reviewed front desk monitor - reviewed EKG - personally reviewed [...] 80 Mg Tablet PO 12/10/23 20:59 QPM [facility] Clopidogrel Bisulfate 75 mg 12/10/22 09:00 [...] <Electronically signed by Mindi Juan MD> 12/10/222202 [facility] Work Phone: 1([phone]) 467-363610-15-2023 Consult note Author Jose David Aponte [facility] December 10, 2022 3:17pm Note Date/Time December 10, 2022 1 0:51am [facility] [address] [place] [address] Neurology Consult Note Signed Patient: Viraj Doherty MR#: [id number] : 1955 Acct:[id number] Age/Sex: 67 / M Adm Date: 3 Loc: 4C Room: 2U2616-0 Type: ADM IN Attending Dr: Mindi Juan MD Copies to: DO Marilyn Abbott MD Ruta Semaskiene, MD~ HPI Consult Date: 12/10/22 Motor And Generator Brush Cutter: Jose David Aponte DO [facility] Medical History CVA (cerebral vascular accident) [...] rapidly alternating movements. No limb dysmetria with lvngpb-jchw-sibvof testing. DATA REVIEW: -CT head without acute [...] signed by Jose David Aponte DO> 12/10/22 0651 [facility] Work Phone: [phone] History and physical note Author Ton Wilkinson [facility] December 10, 2022 12:15am Note Date/Time December 09, 2022 1 1:30pm [facility] [address] [place] [address] Hospitalist H&P Signed Patient: Viraj Doherty MR#: [id number] : 1955 Acct:[id number] Age/Sex: 67 / M Adm Date: 3 Loc: Room: [address] [place] [address] Type: ADM IN Attending Dr: Ton Wilkinson MD Copies to: MD Ton Millan MD~ HPI DATE OF EXAMINATION: 12/09/22 CHIEF COMPLAINT: Seizure HISTORY OF PRESENT ILLNESS: This is a 67-year-old male with recent history of thalamic CVA who had a witnessed seizure today and [facility]. The patient had a witnessed generalized seizure by his . No prior history of seizure. Deniesany chest pain headache visual changes or no neurologic symptoms. Noncontrast CT of the head did not show any acute changes. The patient was admitted to [facility] for further management Review of Systems Review of Systems All other systems reviewed & are negative unless noted below or in HPI [facility] Medical History CVA (cerebral vascular accident) [...] 2 Documented By: Ton Wilkinson MD 12/09/22 5672 Signed By: <Electronically signed by Ton Wilkinson MD> 12/10/22 0015 [facility] Work Phone: 1(150) 962-357109-19-2023 Progress note Author Jose Martin Sen [facility] November 14, 2022 10:36am Note Date/Time November 14, 2022 10:36am [facility] [address] [place] [address] Physiatry(Rehab) Progress Note Signed Patient: Viraj Doherty MR#: Lesley [id number] : 1955 Acct:[id number] Age/Sex: 67 / M Adm Date: 3 Loc: Room: 2F9543-0 Type: ADM IN Attending Dr: Jose Martin [...] Case was discussed between ER physician and [facility] who requested the patient stay [...] by day. 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 [...] mg 11/02/22 15:00 Bisacodyl 10 Mg Supp.Rect MN 11/02/23 14:59 DAILY PRN Constipation Clopidogrel Bisulfate 75 mg 11/03/22 09:00 11/14/22 09:10 Clopidogrel Bisulfate 75 Mg Tablet PO 11/03/23 08:59 75 mg DAILY [facility] Administration Docusate Sodium 100 mg 11/02/22 15:00 Docusate 100 Mg Capsule PO 11/02/23 14:59 BID PRN Constipation Docusate Sodium 283 mg 11/02/22 15:00 Docusate Enema 283 Mg/5 Ml Enema MN 11/02/23 14:59 DAILY PRN Constipation Enoxaparin Sodium [...] hypertensive urgency with systolic blood pressures in [id number] Continue with his current antihypertensive regimen and [...] trazodone. DVT prophylaxis: Continue Functional status: Impaired. PT/OT/MOTOR AND CHASSIS INSPECTOR as ordered Discharge planning: Home 11/14/22 I spent greater than 35 minutes for services, including ywpu-cq-agkk encounter with the patient, discussion of the case, plan of care, and exam; and jukozoj-ou-jxff activities, such as reviewing pertinent homemaking rehabilitation consultant documentation, recent therapy notes, laboratory and radiology studies, and discussion of case with care team including physician, nursing, special education case manager, and therapists. More than 50 % of time was spent on patient/family counseling or coordination ofcare. Documented By: Jose Martin Sen MD 11/14/22 1035 Signed By: <Electronically signed by Jose Martin Sen MD> 11/14/22 1036 [facility] Work Phone: 1([phone]) 171-334709-18-2023 Progress note Author Jose Martin Sen [facility] November 13, 2022 12:08pm Note Date/Time November 11, 2022 11:02am [facility] [address] [place] [address] Physiatry(Rehab) Progress Note Signed Patient: Viraj Doherty MR#: [id number] : 1955 Acct:[id number] Age/Sex: 67 / M Adm Date: 3 Loc: Room: 6J6802-9 Type: ADM IN Attending Dr: Jose Martin [...] Case was discussed between ER physician and [facility] who requested the patient stay [...] by day. 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 Dysarthric speech. Objective <Janice Altamirano, [employer] - Last Filed: 11/11/22 11:02> Labs 11/08/22 [...] mg 11/02/22 15:00 Bisacodyl 10 Mg Supp.Rect MN 11/02/23 14:59 DAILY PRN Constipation Clopidogrel Bisulfate 75 mg 11/03/22 09:00 11/11/22 09:27 Clopidogrel Bisulfate 75 Mg Tablet PO 11/03/23 08:59 75 mg DAILY [facility] Administration Docusate Sodium 100 mg 11/02/22 15:00 Docusate 100 Mg Capsule PO 11/02/23 14:59 BID PRN Constipation Docusate Sodium 283 mg 11/02/22 15:00 Docusate Enema 283 Mg/5 Ml Enema MN 11/02/23 14:59 DAILY PRN Constipation Enoxaparin Sodium [...] mg DAILY [facility] Administration Assessment/Plan <Janice Altamirano, [employer] - Last Filed: 11/11/22 11:02> Assessment/Plan (1) [...] hypertensive urgency with systolic blood pressures in [id number] Continue with his current antihypertensive regimen and [...] trazodone. DVT prophylaxis: Continue Functional status: Impaired. PT/OT/MOTOR AND CHASSIS INSPECTOR as ordered Discharge planning: Home next week, tentatively 11/14/22 I spent greater than 15 minutes for services, including vdbf-jj-lqtd encounter with the patient, discussion of the case, plan of care, and exam; and iciujwv-fc-qfot activities, such as reviewing pertinent homemaking rehabilitation consultant documentation, recent therapy notes, laboratory and radiology studies, and discussion of case with care team including physician, nursing, special education case manager, and therapists. More than 50 % of [...] hypertensive urgency with systolic blood pressures in [id number] Continue with his current antihypertensive regimen and [...] the chart, including currentorders, allied health and homemaking rehabilitation consultant notes, labs/imaging and plan of care as above. Documented By: Janice Altamirano APRN 11/11/22 1 059 Signed By: <Electronically signed by JASMIN Altamirano> 11/11/22 1102 <Electronically signed by Jose Martin Sen MD> 11/13/22 1207 [facility] Work Phone: 1(836) 958-310309-18-2023 Progress note Author Jose Martin Sen [facility] November 13, 2022 12:07pm Note Date/Time November 09, 2022 12:58pm [facility] [address] [place] [address] Physiatry(Rehab) Progress Note Signed Patient: Viraj Doherty MR#: [id number] : 1955 Acct:[id number] Age/Sex: 67 / M Adm Date: 3 Loc: Room: [address] [place] [address] Type: ADM IN Attending Dr: Jose Martin [...] Case was discussed between ER physician and [place] interventional radiology who requested the patient stay [...] by day. 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 [...] mg 11/02/22 15:00 Bisacodyl 10 Mg Supp.Rect MN 11/02/23 14:59 DAILY PRN Constipation Clopidogrel Bisulfate 75 mg 11/03/22 09:00 11/09/22 09:10 Clopidogrel Bisulfate 75 Mg Tablet PO 11/03/23 08:59 75 mg DAILY LEVON Administration Docusate Sodium 100 mg 11/02/22 15:00 Docusate 100 Mg Capsule PO 11/02/23 14:59 BID PRN Constipation Docusate Sodium 283 mg 11/02/22 15:00 Docusate Enema 283 Mg/5 Ml Enema MN 11/02/23 14:59 DAILY PRN Constipation Enoxaparin Sodium [...] mg DAILY LEVON Administration Assessment/Plan <Janice Altamirano, WASHER [employer]CASS - Last Filed: 11/09/22 13:00> Assessment/Plan (1) [...] hypertensive urgency with systolic blood pressures in [id number] Continue with his current antihypertensive regimen and [...] trazodone. DVT prophylaxis: Continue Functional status: Impaired. PT/OT/MOTOR AND CHASSIS INSPECTOR as ordered Discharge planning: Home next week, tentatively 11/14/22 I spent greater than 15 minutes for services, including [id number] encounter with the patient, discussion of the case, plan of care, and exam; and [id number] activities, such as reviewing pertinent homemaking rehabilitation consultant documentation, recent therapy notes, laboratory and radiology studies, and discussion of case with care team including physician, nursing, special education case manager, and therapists. More than 50 % of [...] hypertensive urgency with systolic blood pressures in [id number] Continue with his current antihypertensive regimen and [...] Allied health note review, nursing note review, homemaking rehabilitation consultant note review, discussion with nursing and case management, and more than 50% of my time was spent on counseling and coordination of care, time spent 25 minutes Patient was personally seen by me, Dr. Sen, on the day of encounter, reviewed the history and the relevant portions of the chart, including current orders, allied health and homemaking rehabilitation consultant notes, labs/imaging and performed garner elements of exam and I formulated the plan of care and facilitated the medical decision making. Documented By: Janice Altamirano APRN 11/09/22 1 251 Signed By: <Electronically signed by JASMIN Altamirano> 11/09/22 1300 <Electronically signed by Jose Martin Sen MD> 11/13/22 1203 [facility] Work Phone: 1(870) 710-830609-13-2023 Progress note Author Jose Martin Sen [facility] November 08, 2022 11:51am Note Date/Time November 08, 2022 11:51am [facility] [address] [place] [address] Physiatry(Rehab) Progress Note Signed Patient: Viraj Doherty MR#: [id number] : 1955 Acct:[id number] Age/Sex: 67 / M Adm Date: 3 Loc: Room: 5Z1769-7 Type: ADM IN Attending Dr: Jose Martin [...] Case was discussed between ER physician and [place] interventional radiology who requested the patient stay [...] by day. 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 [...] % (Auto) 63.8 Lymph % (Auto) 21.8 Riley % (Auto) 12.9 Eos % (Auto) 0.4 Baso % (Auto) 1.1 Nucleat RBC Rel Count 0.1 Neut # (Auto) 4.9 Lymph # (Auto) 1.7 Riley # (Auto) 1.0 H Eos # (Auto) 0.0 Baso # (Auto) 0.1 PHA Creatinine Clear 63.70 Sodium 136 Potassium 3.5 Chloride 100 Carbon Dioxide 28.8 Anion Gap 10.7 BUN 28 H Creatinine 1.13 Est GFR (CKD-EPI) > 60.0 Glucose 105 H Calcium 9.4 Urine Color Yellow Urine Appearance Clear Urine pH 5.5 Ur Specific Caret 1.014 Urine Protein Negative Urine Glucose (UA) [...] % (Auto) 56.5 Lymph % (Auto) 28.3 Riley % (Auto) 13.4 Eos % (Auto) 0.9 Baso % (Auto) 0.9 Nucleat RBC Rel Count 0.1 Neut # (Auto) 5.3 Lymph # (Auto) 2.7 Riley # (Auto) 1.3 H Eos # (Auto) 0.1 Baso # (Auto) 0.1 PHA Creatinine Clear 66.04 Sodium 137 Potassium 3.5 Chloride 103 Carbon Dioxide 26.8 Anion Gap 10.7 BUN 27 H Creatinine 1.09 Est GFR (CKD-EPI) > 60.0 Glucose 104 H Calcium 9.3 Urine Color Urine Appearance Urine pH Ur Specific Caret Urine Protein Urine Glucose (UA) Urine Ketones [...] mg 11/02/22 15:00 Bisacodyl 10 Mg Supp.Rect MN 11/02/23 14:59 DAILY PRN Constipation Clopidogrel Bisulfate 75 mg 11/03/22 09:00 11/08/22 09:50 Clopidogrel Bisulfate 75 Mg Tablet PO 11/03/23 08:59 75 mg DAILY LEVON Administration Docusate Sodium 100 mg 11/02/22 15:00 Docusate 100 Mg Capsule PO 11/02/23 14:59 BID PRN Constipation Docusate Sodium 283 mg 11/02/22 15:00 Docusate Enema 283 Mg/5 Ml Enema MN 11/02/23 14:59 DAILY PRN Constipation Enoxaparin Sodium [...] hypertensive urgency with systolic blood pressures in [id number] Continue with his current antihypertensive regimen and [...] trazodone. DVT prophylaxis: Continue Functional status: Impaired. PT/OT/MOTOR AND CHASSIS INSPECTOR as ordered Discharge planning: Home next week, tentatively 11/14/22 Plan: I completed a substantive portion of this encounter, the medical decision makingportion of this note in its entirety, including Allied health note review, nursing note review, homemaking rehabilitation consultant note review, discussion with nursing and case management, and more than 50% of my time was spent on counseling and coordination of care, time spent 30 minutes Patient was personally seen by me, Dr. Sen, on the day of encounter, reviewed the history and the relevant portions of the chart, including current orders, allied health and homemaking rehabilitation consultant notes, labs/imaging and performed garner elements of exam and I formulated the plan of care and facilitated the medical decision making. Documented By: Jose Martin Sen MD 11/08/22 1149 Signed By: <Electronically signed by Jose Martin Sen MD> 11/08/22 1151 [facility] Work Phone: 1(654) 769-233209-13-2023 Progress note Author Nu Nur [facility] November 08, 2022 9:11am Note Date/Time November 07, 2022 4:12pm [facility] [address] [place] [address] Hospitalist Progress Note Signed Patient: Viraj Doherty MR#: [id number] : 1955 Acct:[id number] Age/Sex: 67 / M Adm Date: 3 Loc: 5T Room: 6B8721-3 Type: ADM IN Attending Dr: Jose Martin [...] mg 11/02/22 15:00 Bisacodyl 10 Mg Supp.Rect MN 11/02/23 14:59 DAILY PRN Constipation Clopidogrel Bisulfate 75 mg 11/03/22 09:00 11/07/22 09:32 Clopidogrel Bisulfate 75 Mg Tablet PO 11/03/23 08:59 75 mg DAILY LEVON Administration Docusate Sodium 100 mg 11/02/22 15:00 Docusate 100 Mg Capsule PO 11/02/23 14:59 BID PRN Constipation Docusate Sodium 283 mg 11/02/22 15:00 Docusate Enema 283 Mg/5 Ml Enema MN 11/02/23 14:59 DAILY PRN Constipation Enoxaparin Sodium [...] signed by Nu Nur MD> 11/08/22 0911 [facility] Work Phone: 1(156) [phone] Progress note Author Jose Martin Sen [facility] November 07, 2022 11:59am Note Date/Time November 07, 2022 10:25am [facility] [address] [place] [address] Physiatry(Rehab) Progress Note Signed Patient: Viraj Doherty MR#: [id number] : 1955 Acct:[id number] Age/Sex: 67 / M Adm Date: 3 Loc: Room: 0E6775-9 Type: ADM IN Attending Dr: Jose Martin [...] Case was discussed between ER physician and [place] interventional radiology who requested the patient stay [...] by day. 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 [...] mg 11/02/22 15:00 Bisacodyl 10 Mg Supp.Rect MN 11/02/23 14:59 DAILY PRN Constipation Clopidogrel Bisulfate 75 mg 11/03/22 09:00 11/07/22 09:32 Clopidogrel Bisulfate 75 Mg Tablet PO 11/03/23 08:59 75 mg DAILY LEVON Administration Docusate Sodium 100 mg 11/02/22 15:00 Docusate 100 Mg Capsule PO 11/02/23 14:59 BID PRN Constipation Docusate Sodium 283 mg 11/02/22 15:00 Docusate Enema 283 Mg/5 Ml Enema MN 11/02/23 14:59 DAILY PRN Constipation Enoxaparin Sodium [...] hypertensive urgency with systolic blood pressures in [id number] Continue with his current antihypertensive regimen and [...] -K improved, 3.8 today. -Diet as per MOTOR AND CHASSIS INSPECTOR and dietitian. -Monitor BP goal ~160 SBP [...] trazodone. DVT prophylaxis: Continue Functional status: Impaired. PT/OT/MOTOR AND CHASSIS INSPECTOR as ordered Discharge planning: Home next week, tentatively 11/14/22/ Plan: I completed a substantive portion of this encounter, the medical decision makingportion of this note in its entirety, including Allied health note review, nursing note review, homemaking rehabilitation consultant note review, discussion with nursing and case management, and more than 50% of my time was spent on counseling and coordination of care, time spent 30 minutes Patient was personally seen by me, Dr. Sen, on the day of encounter, reviewed the history and the relevant portions of the chart, including current orders, allied health and homemaking rehabilitation consultant notes, labs/imaging and performed garner elements of exam and I formulated the plan of care and facilitated the medical decision making. Documented By: Jose Martin Sen MD 11/07/22 1025 Signed By: <Electronically signed by Jose Martin Sen MD> 11/07/22 1151 [facility] Work Phone: 1(999) [phone] Progress note Author Jose Martin Sen [facility] November 06, 2022 12:00pm Note Date/Time November 06, 2022 11:16am [facility] [address] [place] [address] Physiatry(Rehab) Progress Note Signed Patient: Viraj Doherty MR#: [id number] : 1955 Acct:[id number] Age/Sex: 67 / M Adm Date: 3 Loc: Room: [address] [place] [address] Type: ADM IN Attending Dr: Jose Martin [...] Case was discussed between ER physician and [place] interventional radiology who requested the patient stay [...] by day. 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 [...] mg 11/02/22 15:00 Bisacodyl 10 Mg Supp.Rect MN 11/02/23 14:59 DAILY PRN Constipation Clopidogrel Bisulfate 75 mg 11/03/22 09:00 11/06/22 09:59 Clopidogrel Bisulfate 75 Mg Tablet PO 11/03/23 08:59 75 mg DAILY LEVON Administration Docusate Sodium 100 mg 11/02/22 15:00 Docusate 100 Mg Capsule PO 11/02/23 14:59 BID PRN Constipation Docusate Sodium 283 mg 11/02/22 15:00 Docusate Enema 283 Mg/5 Ml Enema MN 11/02/23 14:59 DAILY PRN Constipation Enoxaparin Sodium [...] hypertensive urgency with systolic blood pressures in [id number] Continue with his current antihypertensive regimen and [...] Optimize DVT prophylaxis: Continue Functional status: Impaired. PT/OT/MOTOR AND CHASSIS INSPECTOR as ordered Discharge planning: Home next week. Plan: I completed a substantive portion of this encounter, the medical decision makingportion of this note in its entirety, including Allied health note review, nursing note review, homemaking rehabilitation consultant note review, discussion with nursing and case management, and more than 50% of my time was spent on counseling and coordination of care, time spent 30 minutes Patient was personally seen by me, Dr. Sen, on the day of encounter, reviewed the history and the relevant portions of the chart, including current orders, allied health and homemaking rehabilitation consultant notes, labs/imaging and performed garner elements of exam and I formulated the plan of care and facilitated the medical decision making. Documented By: Jose Martin Sen MD 11/06/22 1115 Signed By: <Electronically signed by Jose Martin Sen MD> 11/06/22 1200 [facility] Work Phone: 1(400) 866-426509-09-2023 Progress note Author Jose Martin Sen [facility] November 04, 2022 10:52am Note Date/Time November 04, 2022 10:52am [facility] [address] [place] [address] Physiatry(Rehab) Progress Note Signed Patient: Viraj Doherty MR#: [id number] : 1955 Acct:[id number] Age/Sex: 67 / M Adm Date: 3 Loc: Room: 9W5034-0 Type: ADM IN Attending Dr: Jose Martin [...] Case was discussed between ER physician and [place] interventional radiology who requested the patient stay [...] by day. 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 [...] mg 11/02/22 15:00 Bisacodyl 10 Mg Supp.Rect MN 11/02/23 14:59 DAILY PRN Constipation Clopidogrel Bisulfate 75 mg 11/03/22 09:00 11/04/22 08:39 Clopidogrel Bisulfate 75 Mg Tablet PO 11/03/23 08:59 75 mg DAILY LEVON Administration Docusate Sodium 100 mg 11/02/22 15:00 Docusate 100 Mg Capsule PO 11/02/23 14:59 BID PRN Constipation Docusate Sodium 283 mg 11/02/22 15:00 Docusate Enema 283 Mg/5 Ml Enema MN 11/02/23 14:59 DAILY PRN Constipation Enoxaparin Sodium [...] hypertensive urgency with systolic blood pressures in [id number] This was slowly lowered during his inpatient [...] Optimize DVT prophylaxis: Continue Functional status: Impaired. PT/OT/MOTOR AND CHASSIS INSPECTOR as ordered Discharge planning: Home 1-2 weeks, pending progress. Plan: I completed a substantive portion of this encounter, the medical decision makingportion of this note in its entirety, including Allied health note review, nursing note review, homemaking rehabilitation consultant note review, discussion with nursing and case management, and more than 50% of my time was spent on counseling and coordination of care, time spent 30 minutes Patient was personally seen by me, Dr. Sen, on the day of encounter, reviewed the history and the relevant portions of the chart, including current orders, allied health and homemaking rehabilitation consultant notes, labs/imaging and performed garner elements of exam and I formulated the plan of care and facilitated the medical decision making. Documented By: Jose Martin Sen MD 11/04/22 1050 Signed By: <Electronically signed by Jose Martin Sen MD> 11/04/22 1052 [facility] Work Phone: 1([phone]) [phone] Consult note Author Sara Osorio [facility] November 03, 2022 6:45pm Note Date/Time November 03, 2022 2:03pm [facility] [address] [place] [address] Hospitalist Consult Note Signed with [place] Patient: Viraj Doherty MR#: [id number] : 1955 Acct:[id number] Age/Sex: 67 / M Adm Date: 3 Loc: Room: 1E1134-7 Type: ADM IN Attending Dr: Jose Martin [...] stroke. Patient admitted to inpatient rehab unit. [facility] medicine [facility] consulted for medical management of essential HTN. [...] ER physician discussed with stroke team in [place] who did not recommend TNK as patient was outside the window and was recommended for admission for MRI and neurology evaluation with the commencement of DAPT therapy and statin therapy. Patient was subsequently stabilized and admitted to the inpatient rehab unit. Patient per patient's was admitted to [facility] 2 years prior with uncontrolled hypertension and [...] except as mentioned elsewhere in the documentation. [facility] Medical History CVA (cerebral vascular accident) [...] mg 11/02/22 15:00 Bisacodyl 10 Mg Supp.Rect MN 11/02/23 14:59 DAILY PRN Constipation Clopidogrel Bisulfate 75 mg 11/03/22 09:00 11/03/22 09:01 Clopidogrel Bisulfate 75 Mg Tablet PO 11/03/23 08:59 75 mg DAILY LEVON Administration Docusate Sodium 100 mg 11/02/22 15:00 Docusate 100 Mg Capsule PO 11/02/23 14:59 BID PRN Constipation Docusate Sodium 283 mg 11/02/22 15:00 Docusate Enema 283 Mg/5 Ml Enema MN 11/02/23 14:59 DAILY PRN Constipation Enoxaparin Sodium [...] % (Auto) 64.6, Lymph % (Auto) 21.6, Riley % (Auto) 12.2, Eos % (Auto) 0.8, Baso % (Auto) 0.8, Nucleat RBC Rel Count 0.0, Neut # (Auto) 8.9 H, Lymph # (Auto) 3.0, Riley # (Auto) 1.7 H, Eos # (Auto) [...] hypertensive urgency with systolic blood pressures in [id number] (5) Nonadherence to medication: (6) Intracranial atherosclerosis: [...] <Electronically signed by Rohan Levy DO> 11/03/22 0650 [facility] Work Phone: 1([phone]) 189-110909-08-2023 History and physical note Author Jose Martin Sen [facility] November 03, 2022 12:59pm Note Date/Time November 03, 2022 9:33am [facility] [address] [place] [address] Physiatry (Rehab) H&P Signed Patient: Viraj Doherty MR#: [id number] : 1955 Acct:[id number] Age/Sex: 67 / M Adm Date: 3 Loc: 5T Room: [address] [place] [address] Type: ADM IN Attending Dr: Jose Martin [...] Case was discussed between ER physician and [place] interventional radiology who requested the patient stay [...] by day. 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 [...] Filed: 11/03/22 12:59> Etiologic Diagnosis/Impairment Group: Stroke [facility] <John Hodge DO, RES - Last [...] Bisacodyl (Bisacodyl 10 Mg Supp.Rect) 10 mg MN DAILY PRN PRN Reason: Constipation Stop: 11/02/23 14:59 Clopidogrel Bisulfate (Clopidogrel Bisulfate 75 Mg Tablet) 75 mg PO DAILY LEVON Stop: 11/03/23 08:59 Last Admin: 11/03/22 09:01 Dose: 75 mg Docusate Sodium (Docusate 100 Mg Capsule) 100 mg PO BID PRN PRN Reason: Constipation Stop: 11/02/23 14:59 Docusate Sodium (Docusate Enema 283 Mg/5 Ml Enema) 283 mg MN DAILY PRN PRN Reason: Constipation Stop: 11/02/23 [...] 320 Mg Tablet) 320 mg PO DAILY [facility] Stop: 11/03/23 08:59 Last Admin: 11/03/22 [...] % (Auto) 64.6 Lymph % (Auto) 21.6 Riley % (Auto) 12.2 Eos % (Auto) 0.8 Baso % (Auto) 0.8 Nucleat RBC Rel Count 0.0 Neut # (Auto) 8.9 H Lymph # (Auto) 3.0 Riley # (Auto) 1.7 H Eos # (Auto) [...] mobility Anticipated interventions: Physician management, PT, OT, MOTOR AND CHASSIS INSPECTOR, , Dietitian, RehabNursing, Case management 2. Therapy Functional Outcome/Goal: Anticipate independent transfers Anticipated interventions: Physician management, PT, OT, MOTOR AND CHASSIS INSPECTOR, Case management, Dietitian, Rehab Nursing 3. Therapy Functional Outcome/Goal: Anticipate independent ambulation Anticipated interventions: Physician management, PT, OT, MOTOR AND CHASSIS INSPECTOR Case management, Dietitian, Rehab Nursing 4.Therapy Functional Outcome/Goal: Anticipate independent self-care Anticipated interventions: Physician management, PT, OT, MOTOR AND CHASSIS INSPECTOR, Case management, Dietitian, Rehab Nursing 5.Therapy Functional Outcome/Goal: Anticipate independent functional communication and swallowing Anticipated interventions: Physician management, PT, OT, MOTOR AND CHASSIS INSPECTOR, Case management, Dietitian, Rehab Nursing Required Therapy [...] additional therapy on as needed basis. Comments: MOTOR AND CHASSIS INSPECTOR to evaluate and treat patient?s cognition, language and communication skills, assess swallow function. Other: Dietitian, Rehab nursing, Wound, P&O, Neuropsychology as needed RATIONALE FOR IRF ADMISSION: Patient has both medical and functional complexities that require 24 hour daily monitoring and intervention from Telehealth Coordinator as well as other consulting physicians including internal medicine as well as 24 hour daily spinning mule tender nursing - for medical safe / optimal management. Patient requires interdisciplinary therapy team rehabilitation care including OT, PT, MOTOR AND CHASSIS INSPECTOR, SW, Psychology, Rehab Nursing, requires and can [...] hypertensive urgency with systolic blood pressures in [id number] This was slowly lowered during his inpatient [...] hypertensive urgency with systolic blood pressures in [id number] This was slowly lowered during his inpatient [...] DVT prophylaxis: Add lovenox Functional status: Imapired. Pt/OT/MOTOR AND CHASSIS INSPECTOR as ordered Discharge planning: Home 1-2 weeks Plan: I completed a substantive portion of this encounter, the medical decision makingportion of this note in its entirety, including Allied health note review, nursing note review, homemaking rehabilitation consultant note review, discussion with nursing and case management, and more than 50% of my time was spent on counseling and coordination of care, time spent 70 minutes Patient was personally seen by me, Dr. Sen, on the day of encounter, reviewed the history and the relevant portions of the chart, including current orders, allied health and homemaking rehabilitation consultant notes, labs/imaging and performed garner elements [...] by Jose Martin Sen MD> 11/03/22 1259 [facility] Work Phone: 1(207) 368-376709-06-2023 Progress note Author Davey Harding [facility] November 01, 2022 2:15pm Note Date/Time November 01, 2022 11:38am [facility] [address] [place] [address] Hospitalist Progress Note Signed Patient: Viraj Doherty MR#: [id number] : 1955 Acct:[id number] Age/Sex: 67 / M Adm Date: 3 Loc: 4 Room: 8V1638-4 Type: ADM IN Attending Dr: Davey Harding [...] of care and confirmed it with the resident/student/DIRECTOR OF EMPLOYEE DEVELOPMENT. Patient resting in bed, is frustrated that [...] occlusions which were discussed with neurology in [place]. Will continue asa/plavix/statin - MRI showed evidence [...] signed by DO FLOYD Bear> 11/01/22 1138 [facility] Work Phone: 1(181) [phone] Progress note Author Jose Martin Sen [facility] November 01, 2022 10:34am Note Date/Time November 01, 2022 10:32am [facility] [address] [place] [address] Physiatry(Rehab) Progress Note Signed Patient: Viraj Doherty MR#: [id number] : 1955 Acct:[id number] Age/Sex: 67 / M Adm Date: 3 Loc: Room: [address] [place] [address] Type: ADM IN Attending Dr: Davey Harding [...] % (Auto) 68.3 Lymph % (Auto) 23.0 Riley % (Auto) 7.7 Eos % (Auto) 0.3 Baso % (Auto) 0.7 Nucleat RBC Rel Count 0.6 H Neut # (Auto) 9.2 H Lymph # (Auto) 3.1 Riley # (Auto) 1.0 H Eos # (Auto) [...] MPV Neut % (Auto) Lymph % (Auto) Riley % (Auto) Eos % (Auto) Baso % (Auto) Nucleat RBC Rel Count Neut # (Auto) Lymph # (Auto) Riley # (Auto) Eos # (Auto) Baso # [...] complexity that cannot be best managed at [facility] level of care and requires at least 3 times weekly encounters with business continuity consultant for medical management and for plan of care review / changes. Plan: I completed a substantive portion of this encounter, the medical decision makingportion of this note in its entirety, including Allied health note review, nursing note review, homemaking rehabilitation consultant note review, discussion with nursing and case management, and more than 50% of my time was spent on counseling and coordination of care, time spent 20 minutes Patient was personally seen by me, Dr. Sen, on the day of encounter, reviewed the history and the relevant portions of the chart, including current orders, allied health and homemaking rehabilitation consultant notes, labs/imaging and performed garner elements of exam and I formulated the plan of care and facilitated the medical decision making. Documented By: Jose Martin Sen MD 11/01/22 103 Signed By: <Electronically signed by Jose Martin Sen MD> 11/01/22 1034 [facility] Work Phone: 1(121) 508-179709-05-2023 Consult note Author Jose Martin Sen [facility] October 31, 2022 2:43pm Note Date/Time October 31, 2022 11:39am [facility] [address] [place] [address] Physiatry (Rehab) Consult Note Signed Patient: Viraj Doherty MR#: [id number] : 1955 Acct:[id number] Age/Sex: 67 / M Adm Date: 3 Loc: Room: [address] [place] [address] Type: ADM IN Attending Dr: Davey Harding [...] negative unless noted below or in HPI [facility] Medical History CVA (cerebral vascular accident) [...] % (Auto) 58.1 Lymph % (Auto) 31.1 Riley % (Auto) 9.0 Eos % (Auto) 1.0 Baso % (Auto) 0.8 Nucleat RBC Rel Count 0.2 Neut # (Auto) 5.5 Lymph # (Auto) 3.0 Riley # (Auto) 0.9 H Eos # (Auto) [...] Color Urine Appearance Urine pH Ur Specific Caret Urine Protein Urine Glucose (UA) Urine Ketones [...] % (Auto) 64.0 Lymph % (Auto) 25.2 Riley % (Auto) 9.1 Eos % (Auto) 0.7 Baso % (Auto) 1.0 Nucleat RBC Rel Count 0.6 H Neut # (Auto) 6.5 Lymph # (Auto) 2.6 Riley # (Auto) 0.9 H Eos # (Auto) 0.1 Baso # (Auto) 0.1 Monocyte Dist Width PT INR APTT PHA Creatinine Clear Sodium Potassium Chloride Carbon Dioxide Anion Gap BUN Creatinine Est GFR (CKD-EPI) Glucose Calcium Total Creatine Kinase 133 Troponin I High Sens 12.1 Urine Color Yellow Urine Appearance Clear Urine pH 6.0 Ur Specific Caret > 1.050 H Urine Protein Trace H [...] MPV Neut % (Auto) Lymph % (Auto) Riley % (Auto) Eos % (Auto) Baso % (Auto) Nucleat RBC Rel Count Neut # (Auto) Lymph # (Auto) Riley # (Auto) Eos # (Auto) Baso # (Auto) Monocyte Dist Width PT INR APTT PHA Creatinine Clear 84.38 Sodium 138 Potassium 3.2 L Chloride 105 Carbon Dioxide 23.8 Anion Gap 12.4 BUN 12 Creatinine 0.88 Est GFR (CKD-EPI) > 60.0 Glucose 110 H Calcium 9.3 Total Creatine Kinase Troponin I High Sens Urine Color Urine Appearance Urine pH Ur Specific Caret Urine Protein Urine Glucose (UA) Urine Ketones [...] complexity that cannot be best managed at [facility] level of care and requires at least 3 times weekly encounters with business continuity consultant for medical management and for plan of care review / changes. Plan: I completed a substantive portion of this encounter, the medical decision makingportion of this note in its entirety, including Allied health note review, nursing note review, homemaking rehabilitation consultant note review, discussion with nursing and case management, and more than 50% of my time was spent on counseling and coordination of care, time spent 65 minutes Patient was personally seen by me, Dr. Sen, on the day of encounter, reviewed the history and the relevant portions of the chart, including current orders, allied health and homemaking rehabilitation consultant notes, labs/imaging and performed garner elements of exam and I formulated the plan of care and facilitated the medical decision making. Documented By: Jose Martin Sen MD 10/31/22 1139 Signed By: <Electronically signed by Jose Martin Sen MD> 10/31/22 1443 [facility] Work Phone: [phone]) 294-774109-05-2023 Consult note Author Jose David Aponte [facility] October 31, 2022 12:34pm Note Date/Time October 31, 2022 11:23am [facility] [address] [place] [address] Neurology Consult Note Signed Patient: Viraj Doherty MR#: [id number] : 1955 Acct:[id number] Age/Sex: 67 / M Adm Date: 3 Loc: Room: [address] [place] [address] Type: ADM IN Attending Dr: Davey Harding MD Copies to: DO Davey Abbott MD Douglas M Hoy, MD~ HPI Consult Date: 10/31/22 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 Hiswife said he was admitted to [facility] about 2 years ago with severe hypertension [...] is perforating branches of the distalmost left RAILROAD MECHANIC. Etiology is small vessel disease caused bysevere [...] signed by Jose David Aponte DO> 10/31/22 7[address] [facility] Work Phone: 1(785) 161-893409-05-2023 Progress note Author Davey Harding [facility] October 31, 2022 12:34pm Note Date/Time October 31, 2022 11:45am [facility] [address] [place] [address] Hospitalist Progress Note Signed Patient: Viraj Doherty MR#: [id number] : 1955 Acct:[id number] Age/Sex: 67 / M Adm Date: 3 Loc: Room: [address] [place] [address] Type: ADM IN Attending Dr: Davey Harding [...] of care and confirmed it with the resident/student/DIRECTOR OF EMPLOYEE DEVELOPMENT. Patient resting in chair. Does not quite [...] occlusions which were discussed with neurology in [place]. Will continue asa/plavix/statin - MRI ordered, echo [...] signed by DO FLOYD Bear> 10/31/22 1145 [facility] Work Phone: [phone]) 634-742809-05-2023 History and physical note Author John Garcia [facility] October 30, 2022 10:00pm Note Date/Time October 30, 2022 10:00pm [facility] [address] [place] [address] Hospitalist H&P Signed Patient: Viraj Doherty MR#: [id number] : 1955 Acct:[id number] Age/Sex: 67 / M Adm Date: 3 Loc: 4P Room: [address] [place] [address] Type: ADM IN Attending Dr: John Garcia DO Copies to: MD John Millan DO~ HPI DATE OF EXAMINATION: 10/30/22 CHIEF COMPLAINT: slurred speech HISTORY OF PRESENT ILLNESS: 67 y/o M with PMHx of HTN, hx of CVA who presents with complaint of slurred speech which started last night. Pt's states that he was admitted in [place] about 2 years ago with uncontrolled HTN [...] negative unless noted below or in HPI [facility] Medical History (Updated 10/30/22 @ 21:57 [...] % (Auto) 31.1 % (.) 10/30/22 19:12 Riley % (Auto) 9.0 % (.) 10/30/22 19:12 Eos % (Auto) 1.0 % (.) 10/30/22 19:12 Baso % (Auto) 0.8 % (.) 10/30/22 19:12 Nucleat RBC Rel Count 0.2 /100 WBC (0-0.5) 10/30/22 19:12 Neut # (Auto) 5.5 x10E3/uL (1.8-7.7) 10/30/22 19:12 Lymph # (Auto) 3.0 x10E3/uL (1.00-4.8) 10/30/22 19:12 Riley # (Auto) 0.9 x10E3/uL (0.0-0.8) H 10/30/22 [...] occlusions which were discussed with neurology in [place]. Will continue asa/plavix/statin - MRI ordered - [...] signed by John Garcia DO> 10/30/22 2[address] [facility] Work Phone: 1(224) 525-110507-12-2023 Evaluation + Plan note Diagnostic Tests Pending * Quantiferon-TB Plus (Client Incubated) 09/06/22 [facility]07-13-2022 Evaluation + Plan note Diagnostic Tests Pending * Quantiferon-TB Plus (Client Incubated[facility] Dave[facility] Hard[facility] November 02, 2022 1:45pm Note Date/Time November 02, 2022 1:45pm [facility] [address] [place] [address] Discharge Summary Signed Patient: Viraj Doherty MR#: [id number] : 1955 Acct:[id number] Age/Sex: 67 / M Adm Date: 3 Loc: Room: [address] [place] [address]: Davey Harding MD Copies to: [...] occlusions in the M1 and M2 segments. [place] [facility] recommended conservative management with dual [...] % (Auto) 71.4, Lymph % (Auto) 18.5, Riley % (Auto) 9.2, Eos % (Auto) 0.1, Baso % (Auto) 0.8, Nucleat RBC Rel Count 0.2, Neut # (Auto) 10.2 H, Lymph # (Auto) 2.6, Riley # (Auto) 1.3 H, Eos # (Auto) 0.0, Baso # (Auto) 0.1 Exam Physical Exam Vital Signs: Temp Pulse Resp BP Pulse Ox O2 Del Method 98.4 F 83 16 142/72 H 97 Room Air 11/02/22 12:29 11/02/22 12:29 11/02/22 12:29 11/02/22 12:29 11/02/22 12:29 11/02/22 12:29 Discharge Plan Discharge Plan Patient Disposition: Rehab [facility] Activity: No Activity Restriction Diet: Diabetic and Low-Sodium Additional Instructions: [facility] will call you with a follow up with a neurovascular doctor. You are schedule with [facility] on November 30 at 3:30pm at [facility] [address] Mike. Rehab [...] 81 mg PO DAILY Qty: 0 0RF jtzqkpcvvf-qlpmxvrqd-piggltvtg 10-320-25 mg tablet 1 tab PO DAILY [...] signed by Davey Harding MD> 11/02/22 1345 [facility] Work Phone: Discharge summary Author Jose Martin Sen [facility] November 15, 2022 6:11pm Note Date/Time November 15, 2022 12:04pm [facility] [address] [place] [address] Discharge Summary Signed Patient: Viraj Doherty MR#: [id number] : 1955 Acct:[id number] Age/Sex: 67 / M Adm Date: 3 Loc: Room: [address] [place] [address]: Jose Martin Sen MD Copies to: MD Janice Millan, JASMIN Sen MD~ Providers Date of Discharge: 11/15/22 Discharging Provider: Janice Altamirano Primary Care Provider: Marilyn Patirck Consults: 11/02/22 15:00 Consult to Adult Hospitalist [...] Case was discussed between ER physician and [place] interventional radiology who requested the patient stay [...] Outpatient Physical, Occupational, and Speech Therapy at [facility] (Address: [address] [place], [place] [address]/ ). The order for this has [...] mg subcut Q14D Qty: 0 0RF Continued uyubcbqlnb-fwhszzexc-xnglfjadv 10-320-25 mg tablet 1 tab PO DAILY [...] by Jose Martin Sen MD> 11/15/22 1811 [facility] Work Phone: evaluation note* Diagnosis Onset Date Resolution Status Acute CVA (cerebrovascular accident) acute Hypertensive urgency acute [facility] Work Phone: evaluation note* Diagnosis Onset Date Resolution Status Acute CVA (cerebrovascular accident) acute Cerebrovascular accident (CVA) of left thalamus acute Hyperlipidemia acute Hypertensive urgency acute Intracranial atherosclerosis acute Nonadherence to medication a cute Oropharyngeal dysphagia acut e Right hemiplegia acute [facility] Work Phone: evaluation note* Diagnosis Onset Date [...] Right hemiplegia acute Tobacco abuse disorder acute [facility] Work Phone: evaluation note* Diagnosis Onset Date [...] acut e Right hemiplegia acute Seizure acute [facility] Work Phone: evaluation note* Diagnosis Onset Date [...] Right-sided sensory deficit present acute Seizure acute [facility] Work Phone: History and physical note Author John Garcia [facility] October 30, 2022 10:00pm Note Date/Time October 30, 2022 10:00pm [facility] [address] [place] [address] Hospitalist H&P Signed Patient: Viraj Doherty MR#: [id number] : 1955 Acct:[id number] Age/Sex: 67 / M Adm Date: 3 Loc: Room: [address] [place] [address] Type: ADM IN Attending Dr: John Garcia DO Copies to: MD John Millan, DO~ HPI DATE OF EXAMINATION: 10/30/22 CHIEF COMPLAINT: slurred speech HISTORY OF PRESENT ILLNESS: 67 y/o M with PMHx of HTN, hx of CVA who presents with complaint of slurred speech which started last night. Pt's states that he was admitted in [place] about 2 years ago with uncontrolled HTN [...] negative unless noted below or in HPI [facility] Medical History (Updated 10/30/22 @ 21:57 [...] % (Auto) 31.1 % (.) 10/30/22 19:12 Riley % (Auto) 9.0 % (.) 10/30/22 19:12 Eos % (Auto) 1.0 % (.) 10/30/22 19:12 Baso % (Auto) 0.8 % (.) 10/30/22 19:12 Nucleat RBC Rel Count 0.2 /100 WBC (0-0.5) 10/30/22 19:12 Neut # (Auto) 5.5 x10E3/uL (1.8-7.7) 10/30/22 19:12 Lymph # (Auto) 3.0 x10E3/uL (1.00-4.8) 10/30/22 19:12 Riley # (Auto) 0.9 x10E3/uL (0.0-0.8) H 10/30/22 [...] occlusions which were discussed with neurology in [place]. Will continue asa/plavix/statin - MRI ordered - [...] signed by John Garcia DO> 10/30/22 2[address] [facility] Work Phone: Hospital course Narrative No data available for this section [facility] Discharge instructions No data available for this section [facility] Discharge instructions Additional Instructions [facility] will call you with a follow up with a neurovascular doctor. You are schedule with [facility] on November 30 at 3:30pm at [address] [facility] [address] Mike. Rehab to manage: - PT/OT/ST to eval and treat - Please follow previous Speech therapy recommendations - Monitor VS routine - Dx. HTN - Neuro assessments - Dx. CVA - Routine skin assessments/care -- Every 3 days - Mepilex border foam to coccyx for added protection.[facility] Work Phone: Hospital Discharge instructions Additional Instructions [...] Outpatient Physical, Occupational, and Speech Therapy at [facility] (Address: [address] [place] [address] , [place], [place]/ ). The order for this has [...] office to inform them prior to your appointment.[facility] Work Phone: Hospital Discharge instructions Additional Instructions REHAB TO MANAGE: PT/OT to eval and treat Monitor VS per protocol Monitor Neuro. assessment--CVA Maintain seizure precautions Care [facility]: Hospital Discharge instructions Additional Instructions -Diet: low fat, low cholesterol. -Ambulate as tolerated. No driving unless cleared by physician, may ride in car. You will have Outpatient Therapy at [facility] ([phone] ext. [phone]). The order for this has been sent [...] office to inform them prior to your appointment.[facility] Work Phone: Progress note No data available for this section [facility] Summary Purpose Family History No Family History [...] and content) DATE CREATED AUTHOR 06/11/2018 [facility] DATE CREATED AUTHOR AUTHOR'S ORGANIZ ATION 10/23/2018 [facility] DATE CREATED AUTHOR AUTHOR'S ORGANIZ ATION 09/09/2022 [facility] DATE CREATED AUTHOR AUTHOR'S ORGANIZ ATION 12/27/2022 [facility] Care Team (unrecognized sect ion and content) [...] Kim , DO Other Provider Active Aziza Walekr , WASHER [employer]CASS Other Provider Active Alex Weems , DO Other Provider Active Quynh Galvan MD Other Provider Active Linh Hernandez , WASHER [place] Other Provider Active Sara Osorio , WASHER [place] Other Provider Active Tamara Loco MD Other Provider Active Guzman Garcia MD Other Provider Active Estephania Lepe , WASHER [place] Other Provider Active Destiny Quinteros RN Other [...] DO Other Provider Active Johana Mayers , WASHER [employer] Other Provider Active Misti Joel , DIRECTOR OF EMPLOYEE DEVELOPMENT-C Other Provider Active Ivon Yoo , WASHER [place]C[employer]-STRATEGIC SOURCING SPECIALIST-C Other Provider Active Davey Harding MD Attending Provider Active Santosh Rivera MD Other Provider Active Team Status: Inactive Member Role Status Dates Marilyn Patrick MD Primary Care Provider Active Jose Martin Sen MD Admit Provider, Attending Provider A ctive Jodi Carlisle , DARON Other Provider Active Aggie Martines , RN Other Provider Active Cayal Brandon , RN Other Provider Active Yoli Mckeon , RN Other Provider Active iKndra Benitez , DARON Other Provider Active Charlotte Gupta , DARON Other Provider Active Nu Nur MD Other Provider Active Yennifer Miller , WASHER [place] Other Provider Active Stephanie Thomas , DO Other Provider Active Pasquale Gillespie MD Other Provider Active Rohan Levy , DO Other Provider Active Davey Harding MD Other Provider Active Mindi Juan MD Other Provider Active Anuradha Parmar , WASHER [place] Other Provider Active Ryan Palacio MD Other Provider Active Herbert May MD Other Provider Active Kaushal Mata MD Other Provider Active Fidelia Hernández MD Other Provider Active Kevin Adrian , DO Other Provider Active Ton Wilkinson MD Other Provider Active Deangelo Jeong MD Other Provider Active Rhonda Addison DIRECTOR OF EMPLOYEE DEVELOPMENT-C Other Provider Active Franklyn Mariano MD Other Provider Active Foster [place] MD Other Provider Active Axel Wolfe MD Other Provider Active Obey Danw MD Other Provider Active Maty Giles , DO Other Provider Active Hilario Bojorquez , DO Other Provider Active Garrett Kim , DO Other Provider Active Aziza Walker , WASHER [employer] Other Provider Active Alex Weems , DO Other Provider Active Quynh Galvan MD Other Provider Active Linh Hernandez , WASHER [place] Other Provider Active Sara Osorio , WASHER [place] Other Provider Active Tamara Loco MD Other Provider Active Guzman Garcia MD Other Provider Active Estephania Lepe , WASHER [employer]CASS Other Provider Active Destiny Quinteros RN Other [...] BE BASED ON THE PRIMARY CLINICAL RECORDS. [facility] [employer] [facility]. provides no warranty or guarantee of the accuracy or completeness of information in this document.
[2023-04-13 13:28] LABS: Occult Blood Negative
== END 2023-04-13 01:01 | disposition home or self-care (01) ==
LOC: LAB 01:00
PROVIDERS: PCP Family Medicine; Visit Provider Family Medicine
DX: D64.9 Anemia, unspecified (principal)
CPT/HCPCS: G0328

== ENCOUNTER 2023-04-17 14:09 | Outpatient (OUT) | payer MEDICARE, SELFPAY ==
[2023-04-17 14:31] LABS: Basophils Absolute Auto 0.2 10^3/uL (0.0-0.1); Basophils Percent Auto 2.9 % (0.2-2.0); Eosinophils Absolute Auto 0.2 10^3/uL (0.0-0.7); Eosinophils Percent Auto 2.6 % (0.9-7.0); Hematocrit 25.6 % (42.0-54.0); Hemoglobin 7.2 g/dL (14.0-18.0); Immature Granulocytes Abs Auto 0.02 10^3/uL (0.00-0.03); Immature Granulocytes Pct Auto 0.3 % (0.0-0.5); Lymphocytes Absolute Auto 1.7 10^3/uL (1.2-3.8); Lymphocytes Percent Auto 27.2 % (20.5-60.0); Mean Corpuscular HGB Conc 28.1 g/dL (29.9-35.2); Mean Corpuscular Hemoglobin 19.6 pg (25.9-34.0); Mean Corpuscular Volume 69.8 fL (80.0-94.0); Mean Platelet Volume 9.3 fL (9.5-13.5); Monocytes Absolute Auto 0.7 10^3/uL (0.3-0.8); Monocytes Percent Auto 11.7 % (1.7-12.0); Neutrophils Absolute Auto 3.5 10^3/uL (1.4-6.5); Neutrophils Percent Auto 55.3 % (43.0-75.0); Platelet Count 187 10^3/uL (150-450); Red Blood Count 3.67 10^6/uL (4.70-6.10); Red Cell Distribution Width 25.7 % (11.0-15.0); White Blood Count 6.3 10^3/uL (4.0-11.0)
== END 2023-04-17 14:10 | disposition home or self-care (01) ==
LOC: LAB 14:13
PROVIDERS: PCP Family Medicine; Visit Provider Family Medicine
DX: D64.9 Anemia, unspecified (principal)
CPT/HCPCS: 36415; 85025

== ENCOUNTER 2023-04-23 10:25 | Outpatient (OUT) | payer MEDICARE, SELFPAY ==
[2023-04-23 11:00] LABS: Basophils Absolute Auto 0.2 10^3/uL (0.0-0.1); Basophils Percent Auto 2.3 % (0.2-2.0); Eosinophils Absolute Auto 0.2 10^3/uL (0.0-0.7); Eosinophils Percent Auto 2.3 % (0.9-7.0); Hematocrit 26.7 % (42.0-54.0); Hemoglobin 7.4 g/dL (14.0-18.0); Immature Granulocytes Abs Auto 0.04 10^3/uL (0.00-0.03); Immature Granulocytes Pct Auto 0.5 % (0.0-0.5); Lymphocytes Absolute Auto 2.7 10^3/uL (1.2-3.8); Lymphocytes Percent Auto 34.5 % (20.5-60.0); Mean Corpuscular HGB Conc 27.7 g/dL (29.9-35.2); Mean Corpuscular Hemoglobin 19.2 pg (25.9-34.0); Mean Corpuscular Volume 69.2 fL (80.0-94.0); Mean Platelet Volume 9.9 fL (9.5-13.5); Monocytes Absolute Auto 0.9 10^3/uL (0.3-0.8); Monocytes Percent Auto 11.7 % (1.7-12.0); Neutrophils Absolute Auto 3.7 10^3/uL (1.4-6.5); Neutrophils Percent Auto 48.7 % (43.0-75.0); Platelet Count 303 10^3/uL (150-450); Red Blood Count 3.86 10^6/uL (4.70-6.10); Red Cell Distribution Width 25.5 % (11.0-15.0); White Blood Count 7.7 10^3/uL (4.0-11.0)
== END 2023-04-23 10:26 | disposition home or self-care (01) ==
LOC: LAB 10:31
PROVIDERS: PCP Family Medicine; Visit Provider Family Medicine
DX: D64.9 Anemia, unspecified (principal)
CPT/HCPCS: 36415; 85025

== ENCOUNTER 2023-08-02 10:00 | Outpatient (OUT) | payer MEDICARE, SELFPAY ==
--- OUTSIDE RECORDS SUMMARY | 2023-08-02 10:06 | XMS_ITS | CCD ---
Author Organization [facility] Care Team Providers Care Preschool Associate Teacher Name Role Phone PHYSICIAN, DEFAULT Admitting Unavailable PHYSICIAN, DEFAULT Attending Unavailable HOY, MARILYN Primary Care Unavailable HOY, MARILYN Admitting Unavailable HOY, MARILYN Attending Unavailable GERARDOY, MARILYN Consulting Unavailable ANGUS MCFARLANE Consulting Unavailable DELIO BOYER Consulting Unavailable HOY, MARILYN Admitting Unavailable HOY, MARILYN Attending Unavailable HOY, MARILYN Primary Care Unavailable HOY, MARILYN Consulting Unavailable Hoy, Marilyn Primary Care Physician MD Nolberto Hernandez Emergency Provider MD Marilyn Patrick Primary Care Provider [phone] DO John Garcia Admit Provider [phone] [place] Attending Provider MD Davey Harding Attending Provider [phone] DO Jose David Aponte Other Provider MD Jose Martin Sen Other Provider MD Jose Martin Sen Admit Provider MD Jose Martin Sen Attending Provider DARON Carlisle Other Provider Unavailable DARON Martines Other Provider Unavailable DARON Brandon Other Provider Unavailable DARON Mckeon Other Provider Unavailable DARON Benitez Other Provider Unavailable DARON Gupta Other Provider Unavailable MD Nu Nur Other Provider JASMIN Miller Other Provider [phone] DO Stephanie Thomas Other Provider MD Pasquale Gillespie Other Provider DO Rohan Levy Other Provider MD Davey Harding Other Provider MD Mindi Juan Other Provider Rosita, ANP-BC Anuradha Other Provider MD Ryan Palacio Other Provider MD Herbert May Other Provider MD Kaushal Mata Other Provider MD Fidelia Hernández Other Provider DO Kevin Adrian Other Provider MD Ton Wilkinson Other Provider MD Deangelo Jeong Other Provider VICTOR MANUEL Addison-C Rhonda De La Vega Other Provider MD Franklyn Mariano Other Provider MD Foster Patterson Other Provider MD Axel Wolfe Other Provider MD Obey Dawn Other Provider DO Maty Giles Other Provider DO Hilario Bojorquez Other Provider DO Garrett Kim Other Provider JASMIN Walker Other Provider DO Alex Weems Other Provider MD Quynh Galvan Other Provider JASMIN Hernandez Other Provider JASMIN Osorio Other Provider [phone] MD Tamara Loco Other Provider MD Guzman Garcia Other Provider JASMIN Lepe Other Provider DARON Quinteros Other Provider Unavailable MD Ton Wilkinson Admit Provider Marie Nicholas Other Provider Unavailable DO Shannan Bergeron Other Provider MD Angus Block Other Provider [phone] DO Leodan Younger Other Provider IBIS Decker- Joanna Other Provider JASMIN Mayers Other Provider KRISTIE Joel Other Provider JASMIN Yoo-ORCHARD SPRAYER-C Ivon Ceja Other Provider MD Santosh Rivera Other Provider [phone] JASMIN Parmar Other Provider [phone] Davey Harding Attending Unavailable Ton Wilkinson Admitting [...] Unavailable John Garcia Admitting Unavailable Marilyn Patrick M Primary Care Unavailable Jose Martin Sen Consulting Unavailable Jose Martin Sen Attending Unavailable Jose Martin Sen Admitting Unavailable Jodi Carlisle Consulting Unavailable Marilyn Patrick M Primary Care Unavailable Aggie Martines Consulting Unavailable Cayla Branodn Consulting Unavailable Yoli Mckeon Consulting Unavailable Kindra Benitez Consulting Unavailable Charlotte Gupta Consulting Unavailable Nu Nur Consulting Unavailable Yennifer Miller Consulting Unavailable Stephanie Thomas Consulting Unavailable Jose Miguel, Pasquale Consulting Unavailable Ioana Levyer Consulting Unavailabl e Mehdi, Davey Consulting Unavailable Caitye, Mindi Consulting Unavailable Anuradha Parmar Consulting Unavailcarmen e Wassouf, Marwan Consulting Unavailable Zraik, Herbert Consulting Unavailable Mata, Kaushal Consulting Unavailable Edgar, Safwan Consulting Unavailable Kevin Adrian Consulting Unavailable Jaja, Evas Consulting Unavailable Deangelo Jeong Consulting Unavailable Rhonda Addison Consulting Unavailable Doamekpor, Franklyn E Consulting Unavailab le Leonardo, Foster Consulting Unavailable Wolfe, Axel Consulting Unavailable Nereyda, Obey Consulting Unavailable Maty Giles Consulting Unavailable Hilario Bojorquez Consulting Unavailable Garrett Kim Consulting Unavailable Aziza Walker Consulting Unavailable Alex Weems Consulting Unavailable OswaldoomaQuynh biggs Consulting Unavailable Linh Hernandez Consulting Unavailable Sara Osorio Consulting Unavailable [place]ñ Alaa Consulting Unavailable Guzman Garcia Consulting Unavailable Estephania Lepe Consulting Unavailable Destiny Quinteros Consulting Unavailable Jose Martin Sen Attending Unavailable Jose Martin Sen Admitting Unavailable Marilyn Patrick Primary Care Unavailable Jodi Carlisle Consulting Unavailable Aggie Martines Consulting Unavailable Cayla Brandon Consulting Unavailable Yoli Mckeon Consulting Unavailable Kindra Benitez Consulting Unavailable Charlotte Gupta Consulting Unavailable Nu Nur Consulting Unavailable Yennifer Miller Consulting Unavailable Stephanie Thomas Consulting Unavailable Jose Miguel, Pasquale Consulting Unavailable Shan Levyistopher Consulting Unavailabl e Mehdi, Davey Consulting Unavailable Caitye, Mindi Consulting Unavailable Anuradha Parmar Consulting Unavailcarmen e Wassojacob, Marwan Consulting Unavailable Zraik, Herbert Consulting Unavailable [...] Walker Consulting Unavailable Alex Weems Consulting Unavailable Quynh Galvan Consulting Unavailable Linh Hernandez Consulting Unavailable Sara Osorio Consulting Unavailable Tamara Loco Consulting Unavailable Guzman Garcia Consulting Unavailable Estephania Lepe Consulting Unavailable Destiny Quinteros Consulting Unavailable Jose Martin Sen Attending Unavailable Marilyn Patrick Primary Care Unavailable Jose Martin Sen Admitting Unavailable SHANNON JORDAN Admitting Unavailable SHANNON JORDAN Attending Unavailable Kevin DYSON Attending Unavailable Marilyn Patrick Referring Unavailable IVON YOO Attending Unavailable Allergies Allergy Classification Reported Allergen(s) Allergy Type Date of Onset Reaction(s) Facility (1 source) No Known Medication Allergies; Translations: [No Known Medication Allergies] Propensity to adverse reactions (disorder) [facility] Repository Medications Current Medications Medication Drug Class(es) Dates Sig (Normalized) Sig (Original) acetaminophen 500 mg oral tablet (2 sources) Start: 12-19-2022 take 500 mg by mouth every four hours Acetaminophen Active 500 MG PO Q4H 100 December 19, 2022 12:00am adalimumab (4 sources) Tumor Necrosis Factor Kena Start: 11-14-2022 inject 40 mg by subcutaneous injection every other week Humira Active 40 mg subcut Q14D November 14, 2022 12:00am aspirin 81 mg [...] daily Clopidogrel Active 75 MG PO Daily December 19, 2022 12:00am levETIRAcetam 500 mg [...] Test Name Value Interpretation Reference Range Facility [facility] 05-07-2023 Lab Reports [id number] Normal [facility] Physician Referralon 024 Physician Referral [id number] Normal [facility] Basic Metabolic Panelon 11-27 Anion gap [Moles/Vol] 9.8 mmol/L Normal 6.0-15.0 [facility] Comment on above: Performed By: #### F ER, [id number], FE and TIBC, MG #### [address] Calcium [Mass/Vol] 8.7 mg/dL Normal 8.6-10.3 [facility] Comment on above: Performed By: #### F ER, [id number], FE and TIBC, MG #### [facility] [address] Chloride [Moles/Vol] 111 mmol/L High 98-107 [facility] Comment on above: Performed By: #### F ER, [id number], FE and TIBC, MG #### [facility] [address] CO2 [Moles/Vol] 25.7 mmol/L Normal 21.0-31.0 [facility] Comment on above: Performed By: #### F ER, [id number], FE and TIBC, MG #### [facility] [address] Creatinine [Mass/Vol] 0.87 mg/dL Normal 0.70-1.30 [facility] Comment on above: Performed By: #### F ER, [id number], FE and TIBC, MG #### [facility] [address] Creatinine Clr Calc Pharmacy 79.00 Normal [facility] Comment on above: Result Comment: PERF ORMED BY: [place] [address] PATHOLOGIST MEDICAL SONOGRAPHER TERESA PATTERSON M.D. Performed By: #### F ER, [id number], FE and TIBC, MG #### [address] GFR/1.73 sq M.predicted MDRD (S/P/Bld) [Vol rate/Area] mL/min/{1.73_m2} Normal [facility] Comment on above: Performed By: #### F ER, [id number], FE and TIBC, MG #### [facility] [address] Glucose [Mass/Vol] 95 mg/dL Normal 70-100 [facility] Comment on above: Result Comment: [place] Glucose Reference Range is dependent on time and content of last meal. Glucose of more than 200 mg/dL in a nonstressed, ambulatory subject supports the diagnosis of Diabetes Mellitus. ADA recommended reference range Performed By: #### F ER, [id number], FE and TIBC, MG #### [facility] [address] Potassium [Moles/Vol] 3.5 mmol/L Normal 3.5-5.1 [facility] Comment on above: Performed By: #### F ER, [id number], FE and TIBC, MG #### [facility] [address] Sodium [Moles/Vol] 143 mmol/L Normal 136-145 [facility] Comment on above: Performed By: #### F ER, [id number], FE and TIBC, MG #### [facility] [address] Urea nitrogen [Mass/Vol] 16 mg/dL Normal 7-25 [facility] Comment on above: Performed By: #### F ER, [id number], FE and TIBC, MG #### [facility] [address] Basophils Auto (Bld) [#/Vol] Ordered By: Jose Martin Sen on 12-19-2022 Basophils (Bld) [#/Vol] 0.1 10*3/uL 0.0-0.2 [facility] Basophils/100 WBC Auto (Bld) Ordered By: Jose Martin Sen on 12-19-2022 Basophils/100 WBC (Bld) 1.3 % . [facility] Calcium [Mass/volume] in Ser um or PlasmaOrdered By: Jose Martin Sen on 12-19-2022 Calcium [Mass/Vol] 8.7 mg/dL 8.6-10.3 [facility] Carbon dioxide, total [Moles /volume] in Serum or PlasmaOrdered By: Jose Martin Sen on 12-19-2022 CO2 [Moles/Vol] 25.7 mmol/L 21.0-31.0 [facility] Chloride [Moles/volume] in S shani or PlasmaOrdered By: Jose Martin Sen on 12-19-2022 Chloride [Moles/Vol] 111 mmol/L 98-107 [facility] Complete Blood Count Auto Di ffon 12-19-2022 Basophils (Bld) [#/Vol] 0.1 10*3/uL Normal 0.0-0.2 [facility] Comment on above: Result Comment: PERF ORMED BY: [place] [address] PATHOLOGIST MEDICAL SONOGRAPHER TERESA PATTERSON M.D. Performed By: #### B MP, CBC #### [facility] [address] Basophils/100 WBC (Bld) 1.3 % Normal . [facility] Comment on above: Performed By: #### B MP, CBC #### [facility] [address] Eosinophils (Bld) [#/Vol] 0.1 10*3/uL Normal 0.0-0.45 [facility] Comment on above: Performed By: #### B MP, CBC #### [facility] [address] Eosinophils/100 WBC (Bld) 2.0 % Normal . [facility] Comment on above: Performed By: #### B MP, CBC #### [facility] [address] Erythrocyte distribution width (RBC) [Ratio] 14.1 % Normal 12.0-14.8 [facility] Comment on above: Performed By: #### B MP, CBC #### [facility] [address] [place] [address] [place] Hematocrit (Bld) [Volume fraction] 22.7 % Low 38.8-50.0 [facility] Comment on above: Performed By: #### B MP, CBC #### [facility] [address] [place] [address] [place] Hemoglobin (Bld) [Mass/Vol] 8.1 g/dL Low 13.0-17.0 [facility] Comment on above: Performed By: #### B MP, CBC #### [facility] [address] [place] [address] [place] Lymphocytes (Bld) [#/Vol] 2.1 10*3/uL Normal 1.00-4.8 [facility] Comment on above: Performed By: #### B MP, CBC #### [facility] [address] [place] [address] [place] Lymphocytes/100 WBC (Bld) 33.2 % Normal . [facility] Comment on above: Performed By: #### B MP, CBC #### [facility] [address] [place] [address] [place] MCH (RBC) [Entitic mass] 31.1 pg Normal 27.5-35.2 [facility] Comment on above: Performed By: #### B MP, CBC #### [facility] [address] MCV (RBC) [Entitic vol] 86.6 fL Normal 83.5-101 [facility] Comment on above: Performed By: #### B MP, CBC #### [address] Mean Corpuscular HGB Conc 35.9 g/dL High 32.5-35.6 [facility] Comment on above: Performed By: #### B MP, CBC #### [place] [address] [place] Monocytes (Bld) [#/Vol] 0.6 10*3/uL Normal 0.0-0.8 [facility] Comment on above: Performed By: #### B MP, CBC #### [facility] [address] [place] [address] [place] Monocytes/100 WBC (Bld) 9.2 % Normal . [facility] Comment on above: Performed By: #### B MP, CBC #### [facility] [address] [place] [address] [place] Neutrophils (Bld) [#/Vol] 3.4 10*3/uL Normal 1.8-7.7 [facility] Comment on above: Performed By: #### B MP, CBC #### [address] [place] [address] [place] Neutrophils/100 WBC (Bld) 54.3 % Normal . [facility] Comment on above: Performed By: #### B MP, CBC #### [facility] [address] NRBC% 0.0 /100{WBC} Normal 0-0.5 [facility] Comment on above: Performed By: #### B MP, CBC #### [facility] [address] Platelet mean volume (Bld) [Entitic vol] 7.9 fL Normal 6.6-10.1 [facility] Comment on above: Performed By: #### B MP, CBC #### [address] Platelets (Bld) [#/Vol] 248 10*3/uL Normal 150-450 [facility] Comment on above: Performed By: #### B MP, CBC #### [address] RBC (Bld) [#/Vol] 2.62 10*6/uL Low 3.90-5.60 [facility] Comment on above: Performed By: #### B MP, CBC #### [address] WBC (Bld) [#/Vol] 6.3 10*3/uL Normal 4.1-10.5 [facility] Comment on above: Performed By: #### B MP, CBC #### [address] Creatinine [Mass/volume] in Serum or PlasmaOrdered By: Jose Martin Sen on 12-19-2022 Creatinine [Mass/Vol] 0.87 mg/dL 0.70-1.30 [facility] Eosinophils Auto (Bld) [#/Vo l]Ordered By: Jose Martin Sen on 12-19-2022 Eosinophils (Bld) [#/Vol] 0.1 10*3/uL 0.0-0.45 [facility] Eosinophils/100 WBC Auto (Bl d)Ordered By: Jose Martin Sen on 12-19-2022 Eosinophils/100 WBC (Bld) 2.0 % . [facility] Erythrocyte distribution wid th Auto (RBC) [Ratio]Ordered By: Jose Martin Sen on 12-19-2022 Erythrocyte distribution width (RBC) [Ratio] 14.1 % 12.0-14.8 [facility] Glucose [Mass/volume] in Ser um or PlasmaOrdered By: Jose Martin Sen on 12-19-2022 Glucose [Mass/Vol] 95 mg/dL 70-100 [facility] Comment on above: ADA recommended refe rence rangeRandom Glucose Reference Range is dependent on time and content of last meal. Glucose of more than 200 mg/dL in a nonstressed, ambulatory subject supports the diagnosis of Diabetes Mellitus. Hematocrit Auto (Bld) [Volum e fraction]Ordered By: Jose Martin Sen on 12-19-2022 Hematocrit (Bld) [Volume fraction] 22.7 % 38.8-50.0 [facility] Hemoglobin [Mass/volume] in BloodOrdered By: Jose Martin Sen on 12-19-2022 Hemoglobin (Bld) [Mass/Vol] 8.1 g/dL 13.0-17.0 [facility] Leukocytes [#/volume] correc khadra for nucleated erythrocytes in Blood by Automated counOrdered By: Jose Martin Sen on 12-19-2022 WBC corrected for nucl RBC Auto (Bld) [#/Vol] 6.3 10*3/uL 4.1-10.5 [facility] Lymphocytes Auto (Bld) [#/Vo l]Ordered By: Jose Martin Sen on 12-19-2022 Lymphocytes (Bld) [#/Vol] 2.1 10*3/uL 1.00-4.8 [facility] Lymphocytes/100 WBC Auto (Bl d)Ordered By: Jose Martin Sen on 12-19-2022 Lymphocytes/100 WBC (Bld) 33.2 % . [facility] MCH Auto (RBC) [Entitic mass ]Ordered By: Jose Martin Sen on 12-19-2022 MCH (RBC) [Entitic mass] 31.1 pg 27.5-35.2 [facility] MCHC Auto (RBC) [Mass/Vol]Or dered By: Jose Martin Sen on 12-19-2022 MCHC (RBC) [Mass/Vol] 35.9 g/dL 32.5-35.6 [facility] MCV Auto (RBC) [Entitic vol] Ordered By: Jose Martin Sen on 12-19-2022 MCV (RBC) [Entitic vol] 86.6 fL 83.5-101 [facility] Monocytes Auto (Bld) [#/Vol] Ordered By: Jose Martin Sen on 12-19-2022 Monocytes (Bld) [#/Vol] 0.6 10*3/uL 0.0-0.8 [facility] Monocytes/100 WBC Auto (Bld) Ordered By: Jose Martin Sen on 12-19-2022 Monocytes/100 WBC (Bld) 9.2 % . [facility] Neutrophils Auto (Bld) [#/Vo l]Ordered By: Jose Martin Sen on 12-19-2022 Neutrophils (Bld) [#/Vol] 3.4 10*3/uL 1.8-7.7 [facility] Neutrophils/100 WBC Auto (Bl d)Ordered By: Jose Martin Sen on 12-19-2022 Neutrophils/100 WBC (Bld) 54.3 % . [facility] No Panel InformationOrdered By: Jose Martin Sen on 12-19-2022 Estimated GFR (CKD-EPI) > 60.0 mL/Min [facility] Pharmacy Creatinine Clearance (Chem 79.00 [facility] Nucleated erythrocytes [Pres ence] in Blood by Automated countOrdered By: Jose Martin Sen on 12-19-2022 Nucleated RBC Auto Ql (Bld) 0.0 /100{WBC} 0-0.5 [facility] Platelet mean volume Auto (B ld) [Entitic vol]Ordered By: Jose Martin Sen on 12-19-2022 Platelet mean volume (Bld) [Entitic vol] 7.9 fL 6.6-10.1 [facility] Platelets Auto (Bld) [#/Vol] Ordered By: Jose Martin Sen on 12-19-2022 Platelets (Bld) [#/Vol] 248 10*3/uL 150-450 [facility] Potassium [Moles/volume] in Serum or PlasmaOrdered By: Jose Martin Sen on 12-19-2022 Potassium [Moles/Vol] 3.5 mmol/L 3.5-5.1 [facility] RBC Auto (Bld) [#/Vol]Ordere d By: Jose Martin Niñoey on 12-19-2022 RBC (Bld) [#/Vol] 2.62 10*6/uL 3.90-5.60 [facility] Serum or plasma anion gap de terminationOrdered By: Jose Martin Sen on 12-19-2022 Anion gap [Moles/Vol] 9.8 mmol/L 6.0-15.0 [facility] Sodium [Moles/volume] in Ser um or PlasmaOrdered By: Jose Martin Sen on 12-19-2022 Sodium [Moles/Vol] 143 mmol/L 136-145 [facility] Urea nitrogen [Mass/volume] in Serum or PlasmaOrdered By: Jose Martin Sen on 12-19-2022 Urea nitrogen [Mass/Vol] 16 mg/dL 7-25 [facility] WBC Auto (Bld) [#/Vol]Ordere d By: Jose Martin Sen on 12-19-2022 WBC (Bld) [#/Vol] 6.3 10*3/uL 4.1-10.5 [facility] Basic Metabolic Panelon 11-26 Anion gap [Moles/Vol] 11.5 mmol/L Normal 6.0-15.0 [facility] Comment on above: Performed By: #### B MP, CBC #### [facility] [address] [place] [address] [place] Calcium [Mass/Vol] 9.1 mg/dL Normal 8.6-10.3 [facility] Comment on above: Performed By: #### B MP, CBC #### [facility] [address] [place] [id number] [place] Chloride [Moles/Vol] 106 mmol/L Normal 98-107 [facility] Comment on above: Performed By: #### B MP, CBC #### [facility] [address] [place] [id number] [place] CO2 [Moles/Vol] 28.7 mmol/L Normal 21.0-31.0 [facility] Comment on above: Performed By: #### B MP, CBC #### [facility] [address] Creatinine [Mass/Vol] 1.12 mg/dL Normal 0.70-1.30 [facility] Comment on above: Performed By: #### B MP, CBC #### [facility] [address] [place] [address] [place] Creatinine Clr Calc Pharmacy 61.10 [facility] Comment on above: Result Comment: PERF ORMED BY: [facility] [address] [place] [address] PATHOLOGIST MEDICAL SONOGRAPHER TERESA PATTERSON M.D. Performed By: #### B MP, CBC #### [facility] [address] [place] [address] [place] GFR/1.73 sq M.predicted MDRD (S/P/Bld) [Vol rate/Area] mL/min/{1.73_m2} [facility] Comment on above: Performed By: #### B MP, CBC #### [facility] [address] Glucose [Mass/Vol] 105 mg/dL High 70-100 [facility] Comment on above: Result Comment: [place] Glucose Reference Range is dependent on time and content of last meal. Glucose of more than 200 mg/dL in a nonstressed, ambulatory subject supports the diagnosis of Diabetes Mellitus. ADA recommended reference range Performed By: #### B MP, CBC #### [facility] [address] [place] [address] [place] Potassium [Moles/Vol] 3.2 mmol/L Low 3.5-5.1 [facility] Comment on above: Performed By: #### B MP, CBC #### [facility] [address] [place] [address] [place] Sodium [Moles/Vol] 143 mmol/L Normal 136-145 [facility] Comment on above: Performed By: #### B MP, CBC #### [facility] [address] [place] [address] [place] Urea nitrogen [Mass/Vol] 25 mg/dL Normal 7-25 [facility] Comment on above: Performed By: #### B MP, CBC #### [facility] [address] [place] [id number] [facility] Magnesiumon 12-14-2022 Magnesium [Mass/Vol] 2.0 mg/dL Normal 1.9-2.7 [facility] Comment on above: Result Comment: PERF ORMED BY: [facility] [address] [place] [address] PATHOLOGIST MEDICAL SONOGRAPHER TERESA PATTERSON M.D. Performed By: #### B MP, CBC #### [facility] [address] [place] [id number] [facility] Magnesium [Mass/volume] in S shani or PlasmaOrdered By: Janice Altamirano on 12-14-2022 Magnesium [Mass/Vol] 2.0 mg/dL 1.9-2.7 [facility] Potassiumon 12-14-2022 Potassium [Moles/Vol] 3.5 mmol/L Normal 3.5-5.1 [facility] Comment on above: Result Comment: PERF ORMED BY: [facility] [address] [place] [address] PATHOLOGIST MEDICAL SONOGRAPHER TERESA PATTERSON M.D. Performed By: #### F ER, [id number], FE and TIBC, MG #### [facility] [address] [place] [id number] [facility] Alanine aminotransferase [En zymatic activity/volume] in Serum or PlasmaOrdered By: Santosh Rivera on 12-13-2022 ALT [Catalytic activity/Vol] 25 U/L [facility] Albumin [Mass/volume] in Ser um or Plasma by Bromocresol green (BCG) dye binding methoOrdered By: Santosh Rivrea on 12-13-2022 Albumin BCG dye [Mass/Vol] 4.0 g/dL 3.5-5.7 [facility] Alkaline phosphatase [Enzyma tic activity/volume] in Serum or PlasmaOrdered By: Santosh Rivera on 12-13-2022 ALP [Catalytic activity/Vol] 72 U/L 34-104 [facility] Aspartate aminotransferase [ Enzymatic activity/volume] in Serum or PlasmaOrdered By: Santosh Rivera on 12-13-2022 AST [Catalytic activity/Vol] 15 U/L 13-39 [facility] Bilirubin.total [Mass/volume ] in Serum or PlasmaOrdered By: Santosh Rivera on 12-13-2022 Bilirubin [Mass/Vol] 0.6 mg/dL 0.3-1.0 [facility] Complete Blood Count Auto Di ffon 12-13-2022 Basophils (Bld) [#/Vol] 0.1 10*3/uL Normal 0.0-0.2 [facility] Comment on above: Result Comment: PERF ORMED BY: [place] [address] PATHOLOGIST MEDICAL SONOGRAPHER TERESA PATTERSON M.D. Performed By: #### B MP, CBC #### [address] Basophils/100 WBC (Bld) 1.2 % Normal . [facility] Comment on above: Performed By: #### B MP, CBC #### [facility] [address] [place] [address] [place] Eosinophils (Bld) [#/Vol] 0.2 10*3/uL Normal 0.0-0.45 [facility] Comment on above: Performed By: #### B MP, CBC #### [facility] [address] [place] [address] [place] Eosinophils/100 WBC (Bld) 2.7 % Normal . [facility] Comment on above: Performed By: #### B MP, CBC #### [address] Erythrocyte distribution width (RBC) [Ratio] 14.5 % Normal 12.0-14.8 [facility] Comment on above: Performed By: #### B MP, CBC #### [address] Hematocrit (Bld) [Volume fraction] 25.4 % Low 38.8-50.0 [facility] Comment on above: Performed By: #### B MP, CBC #### [facility] [address] Hemoglobin (Bld) [Mass/Vol] 9.1 g/dL Low 13.0-17.0 [facility] Comment on above: Performed By: #### B MP, CBC #### [facility] [address] Lymphocytes (Bld) [#/Vol] 2.5 10*3/uL Normal 1.00-4.8 [facility] Comment on above: Performed By: #### B MP, CBC #### [facility] [address] Lymphocytes/100 WBC (Bld) 36.9 % Normal . [facility] Comment on above: Performed By: #### B MP, CBC #### [facility] [address] MCH (RBC) [Entitic mass] 31.5 pg Normal 27.5-35.2 [facility] Comment on above: Performed By: #### B MP, CBC #### [facility] [address] MCV (RBC) [Entitic vol] 87.7 fL Normal 83.5-101 [facility] Comment on above: Performed By: #### B MP, CBC #### [facility] [address] Mean Corpuscular HGB Conc 35.9 g/dL High 32.5-35.6 [facility] Comment on above: Performed By: #### B MP, CBC #### [facility] [address] [place] [address] [place] Monocytes (Bld) [#/Vol] 0.7 10*3/uL Normal 0.0-0.8 [facility] Comment on above: Performed By: #### B MP, CBC #### [facility] [address] [place] [address] [place] Monocytes/100 WBC (Bld) 9.9 % Normal . [facility] Comment on above: Performed By: #### B MP, CBC #### [facility] [address] [place] [address] [place] Neutrophils (Bld) [#/Vol] 3.3 10*3/uL Normal 1.8-7.7 [facility] Comment on above: Performed By: #### B MP, CBC #### [facility] [address] [place] [address] [place] Neutrophils/100 WBC (Bld) 49.3 % Normal . [facility] Comment on above: Performed By: #### B MP, CBC #### [facility] [address] NRBC% 0.1 /100{WBC} Normal 0-0.5 [facility] Comment on above: Performed By: #### B MP, CBC #### [facility] [address] Platelet mean volume (Bld) [Entitic vol] 7.8 fL Normal 6.6-10.1 [facility] Comment on above: Performed By: #### B MP, CBC #### [facility] [address] [place] [address] [place] Platelets (Bld) [#/Vol] 257 10*3/uL Normal 150-450 [facility] Comment on above: Performed By: #### B MP, CBC #### [facility] [address] [place] [address] [place] RBC (Bld) [#/Vol] 2.90 10*6/uL Low 3.90-5.60 [facility] Comment on above: Performed By: #### B MP, CBC #### [facility] [address] [place] [address] [place] WBC (Bld) [#/Vol] 6.7 10*3/uL Normal 4.1-10.5 [facility] Comment on above: Performed By: #### B MP, CBC #### [facility] [address] Comprehensive Metabolic Pane nitza 12-13-2022 Albumin [Mass/Vol] 4.0 g/dL Normal 3.5-5.7 [facility] Comment on above: Performed By: #### B MP, CBC #### [facility] [address] Albumin/Globulin [Mass ratio] 1.5 {ratio} Normal [facility] Comment on above: Performed By: #### B MP, CBC #### [facility] [address] ALP [Catalytic activity/Vol] 72 U/L Normal 34-104 [facility] Comment on above: Performed By: #### B MP, CBC #### [facility] [address] ALT [Catalytic activity/Vol] 25 U/L Normal 7-52 [facility] Comment on above: Performed By: #### B MP, CBC #### [address] Anion gap [Moles/Vol] 11.2 mmol/L Normal 6.0-15.0 [facility] Comment on above: Performed By: #### B MP, CBC #### [facility] [address] AST [Catalytic activity/Vol] 15 U/L Normal 13-39 [facility] Comment on above: Performed By: #### B MP, CBC #### [facility] [address] Bilirubin [Mass/Vol] 0.6 mg/dL Normal 0.3-1.0 [facility] Comment on above: Performed By: #### B MP, CBC #### [facility] [address] [place] [id number] [place] Calcium [Mass/Vol] 9.0 mg/dL Normal 8.6-10.3 [facility] Comment on above: Performed By: #### B MP, CBC #### [facility] [address] Chloride [Moles/Vol] 106 mmol/L Normal 98-107 [facility] Comment on above: Performed By: #### B MP, CBC #### [facility] [address] [place] [address] [place] CO2 [Moles/Vol] 28.0 mmol/L Normal 21.0-31.0 [facility] Comment on above: Performed By: #### B MP, CBC #### [facility] [address] [place] [address] [place] Creatinine [Mass/Vol] 1.18 mg/dL Normal 0.70-1.30 [facility] Comment on above: Performed By: #### B MP, CBC #### [facility] [address] [place] [address] [place] Creatinine Clr Calc Pharmacy 58.00 [facility] Comment on above: Performed By: #### B MP, CBC #### [place] [address] [place] GFR/1.73 sq M.predicted MDRD (S/P/Bld) [Vol rate/Area] mL/min/{1.73_m2} [facility] Comment on above: Performed By: #### B MP, CBC #### [place] [address] [place] Globulin (S) [Mass/Vol] 2.7 g/dL [facility] Comment on above: Performed By: #### B MP, CBC #### [address] Glucose [Mass/Vol] 85 mg/dL Normal 70-100 [facility] Comment on above: Result Comment: [facility] Glucose Reference Range is dependent on time and content of last meal. Glucose of more than 200 mg/dL in a nonstressed, ambulatory subject supports the diagnosis of Diabetes Mellitus. ADA recommended reference range Performed By: #### B MP, CBC #### [place] [address] [place] Potassium [Moles/Vol] 3.2 mmol/L Low 3.5-5.1 [facility] Comment on above: Performed By: #### B MP, CBC #### [place] [address] [place] Protein [Mass/Vol] 6.7 g/dL Normal 6.4-8.9 [facility] Comment on above: Performed By: #### B MP, CBC #### [address] Sodium [Moles/Vol] 142 mmol/L Normal 136-145 [facility] Comment on above: Performed By: #### B MP, CBC #### [facility] [address] Urea nitrogen [Mass/Vol] 20 mg/dL Normal 7-25 [facility] Comment on above: Performed By: #### B MP, CBC #### [facility] [address] [place] [address] Globulin Calc (S) [Mass/Vol] Ordered By: Santosh Rivera on 12-13-2022 Globulin (S) [Mass/Vol] 2.7 g/dL [facility] Prealbuminon 12-13-2022 Prealbumin [Mass/Vol] 26.1 mg/dL Normal 17.0-34.0 [facility] Comment on above: Result Comment: PERF ORMED BY: [place] [address] PATHOLOGIST MEDICAL SONOGRAPHER TERESA PATTRESON M.D. Performed By: #### B MP, CBC #### [address] Prealbumin [Mass/volume] in Serum or PlasmaOrdered By: Santosh Rivera on 12-13-2022 Prealbumin [Mass/Vol] 26.1 mg/dL 17.0-34.0 [facility] Protein [Mass/volume] in Ser um or PlasmaOrdered By: Santosh Rivera on 12-13-2022 Protein [Mass/Vol] 6.7 g/dL 6.4-8.9 [facility] Serum or plasma albumin/glob ulin mass ratioOrdered By: Santosh Rivera on 12-13-2022 Albumin/Globulin [Mass ratio] 1.5 {ratio} [facility] Glucose Glucometer (BldC) [M ass/Vol]Ordered By: Jose Martin Sen on 12-12-2022 Glucose [Mass/Vol] 146 mg/dL [facility] Comment on above: Random Glucose Refer ence Range is dependent on time and content of last meal. Glucose of more than 200 mg/dL in a nonstressed, ambulatory subject supports the diagnosis of Diabetes Mellitus. Glucose Poct Glucometerson 1 Glucose [Mass/Vol] 146 mg/dL Normal [facility] Comment on above: Result Comment: [place] Glucose Reference Range is dependent on time and content of last meal. Glucose of more than 200 mg/dL in a nonstressed, ambulatory subject supports the diagnosis of Diabetes Mellitus. PERFORMED BY: [place] [address] PATHOLOGIST MEDICAL SONOGRAPHER TERESA PATTERSON M.D. Performed By: #### F ER, [id number], FE and TIBC, MG #### [address] Basic Metabolic Panelon 11-26 Anion gap [Moles/Vol] 10.1 mmol/L Normal 6.0-15.0 [facility] Comment on above: Performed By: #### F ER, [id number], FE and TIBC, MG #### [address] Calcium [Mass/Vol] 9.2 mg/dL Normal 8.6-10.3 [facility] Comment on above: Performed By: #### F ER, [id number], FE and TIBC, MG #### [facility] [address] [place] [address] [place] Chloride [Moles/Vol] 105 mmol/L Normal 98-107 [facility] Comment on above: Performed By: #### F ER, [id number], FE and TIBC, MG #### [place] [address] [place] CO2 [Moles/Vol] 30.4 mmol/L Normal 21.0-31.0 [facility] Comment on above: Performed By: #### F ER, [id number], FE and TIBC, MG #### [facility] [address] Creatinine [Mass/Vol] 1.06 mg/dL Normal 0.70-1.30 [facility] Comment on above: Performed By: #### F ER, [id number], FE and TIBC, MG #### [facility] [address] [place] [address] [place] Creatinine Clr Calc Pharmacy 66.33 [facility] Comment on above: Result Comment: PERF ORMED BY: [place] [address] PATHOLOGIST MEDICAL SONOGRAPHER TERESA PATTERSON M.D. Performed By: #### F ER, [id number], FE and TIBC, MG #### [facility] [address] GFR/1.73 sq M.predicted MDRD (S/P/Bld) [Vol rate/Area] mL/min/{1.73_m2} [facility] Comment on above: Performed By: #### F ER, [id number], FE and TIBC, MG #### [facility] [address] Glucose [Mass/Vol] 99 mg/dL Normal 70-100 [facility] Comment on above: Result Comment: [place] Glucose Reference Range is dependent on time and content of last meal. Glucose of more than 200 mg/dL in a nonstressed, ambulatory subject supports the diagnosis of Diabetes Mellitus. ADA recommended reference range Performed By: #### F ER, [id number], FE and TIBC, MG #### [facility] [address] Potassium [Moles/Vol] 3.5 mmol/L Normal 3.5-5.1 [facility] Comment on above: Performed By: #### F ER, [id number], FE and TIBC, MG #### [facility] [address] Sodium [Moles/Vol] 142 mmol/L Normal 136-145 [facility] Comment on above: Performed By: #### F ER, [id number], FE and TIBC, MG #### [facility] [address] Urea nitrogen [Mass/Vol] 13 mg/dL Normal 7-25 [facility] Comment on above: Performed By: #### F ER, [id number], FE and TIBC, MG #### [facility] [address] Basophils Auto (Bld) [#/Vol] Ordered By: Mindi Juan on 12-11-2022 Basophils (Bld) [#/Vol] 0.1 10*3/uL 0.0-0.2 [facility] Basophils/100 WBC Auto (Bld) Ordered By: Mindi Juan on 12-11-2022 Basophils/100 WBC (Bld) 1.2 % . [facility] Calcium [Mass/volume] in Ser um or PlasmaOrdered By: Mindi Juan on 12-11-2022 Calcium [Mass/Vol] 9.2 mg/dL 8.6-10.3 [facility] Carbon dioxide, total [Moles /volume] in Serum or PlasmaOrdered By: Mindi Juan on 12-11-2022 CO2 [Moles/Vol] 30.4 mmol/L 21.0-31.0 [facility] Chloride [Moles/volume] in S shani or PlasmaOrdered By: Mindi Juan on 12-11-2022 Chloride [Moles/Vol] 105 mmol/L 98-107 [facility] Complete Blood Count Auto Di ffon 12-11-2022 Basophils (Bld) [#/Vol] 0.1 10*3/uL Normal 0.0-0.2 [facility] Comment on above: Result Comment: PERF ORMED BY: [place] [address] PATHOLOGIST MEDICAL SONOGRAPHER TERESA PATTERSON M.D. Performed By: #### F ER, [id number], FE and TIBC, MG #### [address] Basophils/100 WBC (Bld) 1.2 % Normal . [facility] Comment on above: Performed By: #### F ER, [id number], FE and TIBC, MG #### [address] Eosinophils (Bld) [#/Vol] 0.2 10*3/uL Normal 0.0-0.45 [facility] Comment on above: Performed By: #### F ER, [id number], FE and TIBC, MG #### [address] Eosinophils/100 WBC (Bld) 2.3 % Normal . [facility] Comment on above: Performed By: #### F ER, [id number], FE and TIBC, MG #### [address] Erythrocyte distribution width (RBC) [Ratio] 14.4 % Normal 12.0-14.8 [facility] Comment on above: Performed By: #### F ER, [id number], FE and TIBC, MG #### [address] Hematocrit (Bld) [Volume fraction] 24.6 % Low 38.8-50.0 [facility] Comment on above: Performed By: #### F ER, [id number], FE and TIBC, MG #### [address] Hemoglobin (Bld) [Mass/Vol] 9.1 g/dL Low 13.0-17.0 [facility] Comment on above: Performed By: #### F ER, [id number], FE and TIBC, MG #### [address] Lymphocytes (Bld) [#/Vol] 2.4 10*3/uL Normal 1.00-4.8 [facility] Comment on above: Performed By: #### F ER, [id number], FE and TIBC, MG #### [address] Lymphocytes/100 WBC (Bld) 30.3 % Normal . [facility] Comment on above: Performed By: #### F ER, [id number], FE and TIBC, MG #### [address] MCH (RBC) [Entitic mass] 31.9 pg Normal 27.5-35.2 [facility] Comment on above: Performed By: #### F ER, [id number], FE and TIBC, MG #### [address] MCV (RBC) [Entitic vol] 86.7 fL Normal 83.5-101 [facility] Comment on above: Performed By: #### F ER, [id number], FE and TIBC, MG #### [address] Mean Corpuscular HGB Conc 36.8 g/dL High 32.5-35.6 [facility] Comment on above: Performed By: #### F ER, [id number], FE and TIBC, MG #### [address] Monocytes (Bld) [#/Vol] 0.6 10*3/uL Normal 0.0-0.8 [facility] Comment on above: Performed By: #### F ER, [id number], FE and TIBC, MG #### [address] Monocytes/100 WBC (Bld) 7.5 % Normal . [facility] Comment on above: Performed By: #### F ER, [id number], FE and TIBC, MG #### [address] Neutrophils (Bld) [#/Vol] 4.7 10*3/uL Normal 1.8-7.7 [facility] Comment on above: Performed By: #### F ER, [id number], FE and TIBC, MG #### [facility] [address] Neutrophils/100 WBC (Bld) 58.7 % Normal . [facility] Comment on above: Performed By: #### F ER, [id number], FE and TIBC, MG #### [facility] [address] NRBC% 0.1 /100{WBC} Normal 0-0.5 [facility] Comment on above: Performed By: #### F ER, [id number], FE and TIBC, MG #### [facility] [address] Platelet mean volume (Bld) [Entitic vol] 7.4 fL Normal 6.6-10.1 [facility] Comment on above: Performed By: #### F ER, [id number], FE and TIBC, MG #### [facility] [address] Platelets (Bld) [#/Vol] 229 10*3/uL Normal 150-450 [facility] Comment on above: Performed By: #### F ER, [id number], FE and TIBC, MG #### [address] RBC (Bld) [#/Vol] 2.84 10*6/uL Low 3.90-5.60 [facility] Comment on above: Performed By: #### F ER, [id number], FE and TIBC, MG #### [address] WBC (Bld) [#/Vol] 8.1 10*3/uL Normal 4.1-10.5 [facility] Comment on above: Performed By: #### F ER, [id number], FE and TIBC, MG #### [address] Creatinine [Mass/volume] in Serum or PlasmaOrdered By: Mindi Juan on 12-11-2022 Creatinine [Mass/Vol] 1.06 mg/dL 0.70-1.30 [facility] Eosinophils Auto (Bld) [#/Vo l]Ordered By: Mindi Juan on 12-11-2022 Eosinophils (Bld) [#/Vol] 0.2 10*3/uL 0.0-0.45 [facility] Eosinophils/100 WBC Auto (Bl d)Ordered By: Mindi Juan on 12-11-2022 Eosinophils/100 WBC (Bld) 2.3 % . [facility] Erythrocyte distribution wid th Auto (RBC) [Ratio]Ordered By: Mindi Juan on 12-11-2022 Erythrocyte distribution width (RBC) [Ratio] 14.4 % 12.0-14.8 [facility] Glucose [Mass/volume] in Ser um or PlasmaOrdered By: Mindi Juan on 12-11-2022 Glucose [Mass/Vol] 99 mg/dL 70-100 [facility] Comment on above: ADA recommended refe rence rangeRandom Glucose Reference Range is dependent on time and content of last meal. Glucose of more than 200 mg/dL in a nonstressed, ambulatory subject supports the diagnosis of Diabetes Mellitus. Hematocrit Auto (Bld) [Volum e fraction]Ordered By: Mindi Juan on 12-11-2022 Hematocrit (Bld) [Volume fraction] 24.6 % 38.8-50.0 [facility] Hemoglobin [Mass/volume] in BloodOrdered By: Mindi Juan on 12-11-2022 Hemoglobin (Bld) [Mass/Vol] 9.1 g/dL 13.0-17.0 [facility] Leukocytes [#/volume] correc khadra for nucleated erythrocytes in Blood by Automated counOrdered By: Mindi Juan on 12-11-2022 WBC corrected for nucl RBC Auto (Bld) [#/Vol] 8.1 10*3/uL 4.1-10.5 [facility] Lymphocytes Auto (Bld) [#/Vo l]Ordered By: Mindi Juan on 12-11-2022 Lymphocytes (Bld) [#/Vol] 2.4 10*3/uL 1.00-4.8 [facility] Lymphocytes/100 WBC Auto (Bl d)Ordered By: Mindi uJan on 12-11-2022 Lymphocytes/100 WBC (Bld) 30.3 % . [facility] MCH Auto (RBC) [Entitic mass ]Ordered By: Mindi Juan on 12-11-2022 MCH (RBC) [Entitic mass] 31.9 pg 27.5-35.2 [facility] MCHC Auto (RBC) [Mass/Vol]Or dered By: Mindi Juan on 12-11-2022 MCHC (RBC) [Mass/Vol] 36.8 g/dL 32.5-35.6 [facility] MCV Auto (RBC) [Entitic vol] Ordered By: Mindi Juan on 12-11-2022 MCV (RBC) [Entitic vol] 86.7 fL 83.5-101 [facility] MR head/brain wo conon 12-11 MR head/brain wo con [place] [address] MRI Report Signed Patient: Viraj Doherty MR#: [id number] : 1955 Acct:[id number] Age/Sex: 67 / M ADM Date: 12/09/22 Loc: Room: [address] [place] [address] Type: ADM IN Attending Dr: Davey Harding [...] Jeff Pat M.D.12/11/2022 12:31 PM Dictation Location: [place] [address] Transcribed By: [facility] 12/11/22 1231 Dictated By: Jeff Pat II, MD 12/11/22 1218 Signed By: 12/11/22 1231 Normal [facility] Monocytes Auto (Bld) [#/Vol] Ordered By: Mindi Juan on 12-11-2022 Monocytes (Bld) [#/Vol] 0.6 10*3/uL 0.0-0.8 [facility] Monocytes/100 WBC Auto (Bld) Ordered By: Mindi Juan on 12-11-2022 Monocytes/100 WBC (Bld) 7.5 % . [facility] Neutrophils Auto (Bld) [#/Vo l]Ordered By: Mindi Juan on 12-11-2022 Neutrophils (Bld) [#/Vol] 4.7 10*3/uL 1.8-7.7 [facility] Neutrophils/100 WBC Auto (Bl d)Ordered By: Mindi Juan on 12-11-2022 Neutrophils/100 WBC (Bld) 58.7 % . [facility] No Panel InformationOrdered By: Mindi Juan on 12-11-2022 Estimated GFR (CKD-EPI) > 60.0 mL/Min [facility] Creatinine Clearance (Chem 66.33 [facility] Nucleated erythrocytes [Pres ence] in Blood by Automated countOrdered By: Mindi Juan on 12-11-2022 Nucleated RBC Auto Ql (Bld) 0.1 /100{WBC} 0-0.5 [facility] Platelet mean volume Auto (B ld) [Entitic vol]Ordered By: Mindi Juan on 12-11-2022 Platelet mean volume (Bld) [Entitic vol] 7.4 fL 6.6-10.1 [facility] Platelets Auto (Bld) [#/Vol] Ordered By: Mindi Juan on 12-11-2022 Platelets (Bld) [#/Vol] 229 10*3/uL 150-450 [facility] Potassium [Moles/volume] in Serum or PlasmaOrdered By: Mindi Juan on 12-11-2022 Potassium [Moles/Vol] 3.5 mmol/L 3.5-5.1 [facility] RBC Auto (Bld) [#/Vol]Ordere d By: Mindi Juan on 12-11-2022 RBC (Bld) [#/Vol] 2.84 10*6/uL 3.90-5.60 [facility] Serum or plasma anion gap de terminationOrdered By: Mindi Juan on 12-11-2022 Anion gap [Moles/Vol] 10.1 mmol/L 6.0-15.0 [facility] Sodium [Moles/volume] in Ser um or PlasmaOrdered By: Mindi Juan on 12-11-2022 Sodium [Moles/Vol] 142 mmol/L 136-145 [facility] Urea nitrogen [Mass/volume] in Serum or PlasmaOrdered By: Mindi Juan on 12-11-2022 Urea nitrogen [Mass/Vol] 13 mg/dL 7-25 [facility] WBC Auto (Bld) [#/Vol]Ordere d By: Mindi Fungmichaelbeltran on 12-11-2022 WBC (Bld) [#/Vol] 8.1 10*3/uL 4.1-10.5 [facility] Basic Metabolic Panelon 11-26 Anion gap [Moles/Vol] 10.2 mmol/L Normal 6.0-15.0 [facility] Comment on above: Performed By: #### F ER, [id number], FE and TIBC, MG #### [facility] [address] Calcium [Mass/Vol] 8.9 mg/dL Normal 8.6-10.3 [facility] Comment on above: Performed By: #### F ER, [id number], FE and TIBC, MG #### [facility] [address] Chloride [Moles/Vol] 106 mmol/L Normal 98-107 [facility] Comment on above: Performed By: #### F ER, [id number], FE and TIBC, MG #### [facility] [address] CO2 [Moles/Vol] 26.8 mmol/L Normal 21.0-31.0 [facility] Comment on above: Performed By: #### F ER, [id number], FE and TIBC, MG #### [facility] [address] Creatinine [Mass/Vol] 0.83 mg/dL Normal 0.70-1.30 [facility] Comment on above: Performed By: #### F ER, [id number], FE and TIBC, MG #### [facility] [address] Creatinine Clr Calc Pharmacy 84.35 Normal [facility] Comment on above: Result Comment: PERF ORMED BY: [place] [address] PATHOLOGIST MEDICAL SONOGRAPHER TERESA PATTERSON M.D. Performed By: #### F ER, [id number], FE and TIBC, MG #### [facility] [address] [place] [address] [place] GFR/1.73 sq M.predicted MDRD (S/P/Bld) [Vol rate/Area] mL/min/{1.73_m2} Normal [facility] Comment on above: Performed By: #### F ER, [id number], FE and TIBC, MG #### [facility] [address] Glucose [Mass/Vol] 100 mg/dL Normal 70-100 [facility] Comment on above: Result Comment: [facility] Glucose Reference Range is dependent on time and content of last meal. Glucose of more than 200 mg/dL in a nonstressed, ambulatory subject supports the diagnosis of Diabetes Mellitus. ADA recommended reference range Performed By: #### F ER, [id number], FE and TIBC, MG #### [facility] [address] Potassium [Moles/Vol] 3.0 mmol/L Low 3.5-5.1 [facility] Comment on above: Performed By: #### F ER, [id number], FE and TIBC, MG #### [facility] [address] Sodium [Moles/Vol] 140 mmol/L Normal 136-145 [facility] Comment on above: Performed By: #### F ER, [id number], FE and TIBC, MG #### [facility] [address] Urea nitrogen [Mass/Vol] 16 mg/dL Normal 7-25 [facility] Comment on above: Performed By: #### F ER, [id number], FE and TIBC, MG #### [facility] [address] Complete Blood Count Auto Di ffon 12-10-2022 Basophils (Bld) [#/Vol] 0.1 10*3/uL Normal 0.0-0.2 [facility] Comment on above: Result Comment: PERF ORMED BY: [place] [address] PATHOLOGIST MEDICAL SONOGRAPHER TERESA PATTERSON M.D. Performed By: #### F ER, [id number], FE and TIBC, MG #### [address] Basophils/100 WBC (Bld) 0.9 % Normal . [facility] Comment on above: Performed By: #### F ER, [id number], FE and TIBC, MG #### [address] Eosinophils (Bld) [#/Vol] 0.1 10*3/uL Normal 0.0-0.45 [facility] Comment on above: Performed By: #### F ER, [id number], FE and TIBC, MG #### [address] Eosinophils/100 WBC (Bld) 1.3 % Normal . [facility] Comment on above: Performed By: #### F ER, [id number], FE and TIBC, MG #### [address] Erythrocyte distribution width (RBC) [Ratio] 14.1 % Normal 12.0-14.8 [facility] Comment on above: Performed By: #### F ER, [id number], FE and TIBC, MG #### [address] Hematocrit (Bld) [Volume fraction] 23.2 % Low 38.8-50.0 [facility] Comment on above: Performed By: #### F ER, [id number], FE and TIBC, MG #### [address] Hemoglobin (Bld) [Mass/Vol] 8.4 g/dL Low 13.0-17.0 [facility] Comment on above: Performed By: #### F ER, [id number], FE and TIBC, MG #### [address] Lymphocytes (Bld) [#/Vol] 2.2 10*3/uL Normal 1.00-4.8 [facility] Comment on above: Performed By: #### F ER, [id number], FE and TIBC, MG #### [address] Lymphocytes/100 WBC (Bld) 24.2 % Normal . [facility] Comment on above: Performed By: #### F ER, [id number], FE and TIBC, MG #### [address] MCH (RBC) [Entitic mass] 31.3 pg Normal 27.5-35.2 [facility] Comment on above: Performed By: #### F ER, [id number], FE and TIBC, MG #### [address] MCV (RBC) [Entitic vol] 86.5 fL Normal 83.5-101 [facility] Comment on above: Performed By: #### F ER, [id number], FE and TIBC, MG #### [address] Mean Corpuscular HGB Conc 36.2 g/dL High 32.5-35.6 [facility] Comment on above: Performed By: #### F ER, [id number], FE and TIBC, MG #### [address] Monocytes (Bld) [#/Vol] 0.8 10*3/uL Normal 0.0-0.8 [facility] Comment on above: Performed By: #### F ER, [id number], FE and TIBC, MG #### [address] Monocytes/100 WBC (Bld) 9.1 % Normal . [facility] Comment on above: Performed By: #### F ER, [id number], FE and TIBC, MG #### [address] Neutrophils (Bld) [#/Vol] 5.8 10*3/uL Normal 1.8-7.7 [facility] Comment on above: Performed By: #### F ER, [id number], FE and TIBC, MG #### [address] Neutrophils/100 WBC (Bld) 64.5 % Normal . [facility] Comment on above: Performed By: #### F ER, [id number], FE and TIBC, MG #### [address] NRBC% 0.0 /100{WBC} Normal 0-0.5 [facility] Comment on above: Performed By: #### F ER, [id number], FE and TIBC, MG #### [address] Platelet mean volume (Bld) [Entitic vol] 7.6 fL Normal 6.6-10.1 [facility] Comment on above: Performed By: #### F ER, [id number], FE and TIBC, MG #### [address] Platelets (Bld) [#/Vol] 218 10*3/uL Normal 150-450 [facility] Comment on above: Performed By: #### F ER, [id number], FE and TIBC, MG #### [address] RBC (Bld) [#/Vol] 2.68 10*6/uL Low 3.90-5.60 [facility] Comment on above: Performed By: #### F ER, [id number], FE and TIBC, MG #### [address] WBC (Bld) [#/Vol] 8.9 10*3/uL Normal 4.1-10.5 [facility] Comment on above: Performed By: #### F ER, [id number], FE and TIBC, MG #### [facility] [address] Ferritinon 12-10-2022 Ferritin [Mass/Vol] 33.0 ng/mL Normal 23.9-336.2 [facility] Comment on above: Order Comment: Comme nt add Comment add Performed By: #### F ER, [id number], FE and TIBC, MG #### [facility] [address] Ferritin [Mass/volume] in Se rum or PlasmaOrdered By: Mindi Juan on 12-10-2022 Ferritin [Mass/Vol] 33.0 ng/mL 23.9-336.2 [facility] Folate [Mass/volume] in Seru m or PlasmaOrdered By: Mindi Juan on 12-10-2022 Folate [Mass/Vol] 10.4 ng/mL >5.9 [facility] Comment on above: Folate reference ran ge: >5.9 ng/mlThe WHO technical consultation on folate and vitamin [id number] has determined that folate concentrations lessthan 4 ng/ml are considered deficient. Hemoglobin and Hematocriton 12-10-2022 Hematocrit (Bld) [Volume fraction] 24.0 % Low 38.8-50.0 [facility] Comment on above: Result Comment: PERF ORMED BY: [place] [address] PATHOLOGIST MEDICAL SONOGRAPHER TERESA PATTERSON M.D. Performed By: #### F ER, [id number], FE and TIBC, MG #### [address] Hemoglobin (Bld) [Mass/Vol] 8.6 g/dL Low 13.0-17.0 [facility] Comment on above: Performed By: #### F ER, [id number], FE and TIBC, MG #### [facility] [address] Iron [Mass/volume] in Serum or PlasmaOrdered By: Mindi Juan on 12-10-2022 Iron [Mass/Vol] 38 ug/dL 50-212 [facility] Iron and TIBC Profileon 11-26 % Iron Saturation 11.6 % Low 20-50 [facility] Comment on above: Order Comment: Comme nt add Comment add Performed By: #### F ER, [id number], FE and TIBC, MG #### [facility] [address] [place] [address] [facility] Iron [Mass/Vol] 38 ug/dL Low 50-212 [facility] Comment on above: Order Comment: Comme nt add Comment add Performed By: #### F ER, [id number], FE and TIBC, MG #### [facility] [address] [place] [address] [facility] Total Iron Binding Capacity 329 ug/dL Normal 255-450 [facility] Comment on above: Order Comment: Comme nt add Comment add Performed By: #### F ER, [id number], FE and TIBC, MG #### [facility] [address] [place] [address] [facility] Transferrin [Mass/Vol] 235 mg/dL Normal 203-362 [facility] Comment on above: Order Comment: Comme nt add Comment add Performed By: #### F ER, [id number], FE and TIBC, MG #### [facility] [address] [place] [address] [place] Iron binding capacity [Mass/ volume] in Serum or PlasmaOrdered By: Mindi Juan on 12-10-2022 Iron binding capacity [Mass/Vol] 329 ug/dL 255-450 [facility] Iron saturation [Mass Fracti on] in Serum or PlasmaOrdered By: Mindi Juan on 12-10-2022 Iron saturation [Mass fraction] 11.6 % 20-50 [facility] Magnesiumon 12-10-2022 Magnesium [Mass/Vol] 1.9 mg/dL Normal 1.9-2.7 [facility] Comment on above: Order Comment: Comme nt add Comment add Performed By: #### F ER, [id number], FE and TIBC, MG #### [facility] [address] [place] [address] Magnesium [Mass/volume] in S shani or PlasmaOrdered By: Mindi Juan on 12-10-2022 Magnesium [Mass/Vol] 1.9 mg/dL 1.9-2.7 [facility] Transferrin [Mass/volume] in Serum or PlasmaOrdered By: Mindi Juan on 12-10-2022 Transferrin [Mass/Vol] 235 mg/dL 203-362 [facility] Vit. B12/Folate Profileon Cobalamin (Vitamin B12) [Mass/Vol] 228 pg/mL Normal 180-914 [facility] Comment on above: Order Comment: Comme nt add Comment add Performed By: #### F ER, [id number], FE and TIBC, MG #### [facility] [address] [place] [address] Folate 10.4 ng/mL Normal >5.9 [facility] Comment on above: Order Comment: Comme nt add Comment add Result Comment: Lydia te reference range: >5.9 ng/ml The WHO technical consultation on folate and vitamin b12 deficiencies has determined that folate concentrations less than 4 ng/ml are considered deficient. PERFORMED BY: [place] [address] PATHOLOGIST MEDICAL SONOGRAPHER TERESA PATTERSON M.D. Performed By: #### F ER, [id number], FE and TIBC, MG #### [address] Vitamin B12 ser/plasOrdered By: Mindi Juan on 12-10-2022 Cobalamin (Vitamin B12) [Mass/Vol] 228 pg/mL 180-914 [facility] Basic Metabolic Panelon 10-28 Anion gap [Moles/Vol] 6.5 mmol/L Normal 6.0-15.0 [facility] Comment on above: Performed By: #### F ER, [id number], FE and TIBC, MG #### [facility] [address] Calcium [Mass/Vol] 9.3 mg/dL Normal 8.6-10.3 [facility] Comment on above: Performed By: #### F ER, [id number], FE and TIBC, MG #### [facility] [address] Chloride [Moles/Vol] 105 mmol/L Normal 98-107 [facility] Comment on above: Performed By: #### F ER, [id number], FE and TIBC, MG #### [facility] [address] CO2 [Moles/Vol] 28.0 mmol/L Normal 21.0-31.0 [facility] Comment on above: Performed By: #### F ER, [id number], FE and TIBC, MG #### [facility] [address] Creatinine [Mass/Vol] 1.15 mg/dL Normal 0.70-1.30 [facility] Comment on above: Performed By: #### F ER, [id number], FE and TIBC, MG #### [facility] [address] Creatinine Clr Calc Pharmacy 59.85 [facility] Comment on above: Result Comment: PERF ORMED BY: [address] [place] [address] PATHOLOGIST MEDICAL SONOGRAPHER TERESA PATTERSON M.D. Performed By: #### F ER, [id number], FE and TIBC, MG #### [facility] [address] [place] [address] [place] GFR/1.73 sq M.predicted MDRD (S/P/Bld) [Vol rate/Area] mL/min/{1.73_m2} [facility] Comment on above: Performed By: #### F ER, [id number], FE and TIBC, MG #### [facility] [address] [place] [address] [place] Glucose [Mass/Vol] 101 mg/dL High 70-100 [facility] Comment on above: Result Comment: [facility] Glucose Reference Range is dependent on time and content of last meal. Glucose of more than 200 mg/dL in a nonstressed, ambulatory subject supports the diagnosis of Diabetes Mellitus. ADA recommended reference range Performed By: #### F ER, [id number], FE and TIBC, MG #### [facility] [address] Potassium [Moles/Vol] 3.5 mmol/L Normal 3.5-5.1 [facility] Comment on above: Performed By: #### F ER, [id number], FE and TIBC, MG #### [facility] [address] Sodium [Moles/Vol] 136 mmol/L Normal 136-145 [facility] Comment on above: Performed By: #### F ER, [id number], FE and TIBC, MG #### [facility] [address] Urea nitrogen [Mass/Vol] 29 mg/dL High 7-25 [facility] Comment on above: Performed By: #### F ER, [id number], FE and TIBC, MG #### [facility] [address] Calcium [Mass/volume] in Ser um or PlasmaOrdered By: Jose Martin Sen on 11-15-2022 Calcium [Mass/Vol] 9.3 mg/dL 8.6-10.3 [facility] Carbon dioxide, total [Moles /volume] in Serum or PlasmaOrdered By: Jose Martin Sen on 11-15-2022 CO2 [Moles/Vol] 28.0 mmol/L 21.0-31.0 [facility] Chloride [Moles/volume] in S shani or PlasmaOrdered By: Jose Martin Sen on 11-15-2022 Chloride [Moles/Vol] 105 mmol/L 98-107 [facility] Creatinine [Mass/volume] in Serum or PlasmaOrdered By: Jose Martin Sen on 11-15-2022 Creatinine [Mass/Vol] 1.15 mg/dL 0.70-1.30 [facility] Glucose [Mass/volume] in Ser um or PlasmaOrdered By: Jose Martin Sen on 11-15-2022 Glucose [Mass/Vol] 101 mg/dL 70-100 [facility] Comment on above: ADA recommended refe rence rangeRandom Glucose Reference Range is dependent on time and content of last meal. Glucose of more than 200 mg/dL in a nonstressed, ambulatory subject supports the diagnosis of Diabetes Mellitus. No Panel InformationOrdered By: Jose Martin Sen on 11-15-2022 Estimated GFR (CKD-EPI) > 60.0 mL/Min [facility] Creatinine Clearance (Chem 59.85 [facility] Potassium [Moles/volume] in Serum or PlasmaOrdered By: Jose Martin Sen on 11-15-2022 Potassium [Moles/Vol] 3.5 mmol/L 3.5-5.1 [facility] Serum or plasma anion gap de terminationOrdered By: Jose Martin Sen on 11-15-2022 Anion gap [Moles/Vol] 6.5 mmol/L 6.0-15.0 [facility] Sodium [Moles/volume] in Ser um or PlasmaOrdered By: Jose Martin Sen on 11-15-2022 Sodium [Moles/Vol] 136 mmol/L 136-145 [facility] Urea nitrogen [Mass/volume] in Serum or PlasmaOrdered By: Jose Martin Sen on 11-15-2022 Urea nitrogen [Mass/Vol] 29 mg/dL 7-25 [facility] Basic Metabolic Panelon 10-27 Anion gap [Moles/Vol] 10.7 mmol/L Normal 6.0-15.0 [facility] Comment on above: Performed By: #### F ER, [id number], FE and TIBC, MG #### [facility] [address] Calcium [Mass/Vol] 9.3 mg/dL Normal 8.6-10.3 [facility] Comment on above: Performed By: #### F ER, [id number], FE and TIBC, MG #### [facility] [address] Chloride [Moles/Vol] 103 mmol/L Normal 98-107 [facility] Comment on above: Performed By: #### F ER, [id number], FE and TIBC, MG #### [facility] [address] CO2 [Moles/Vol] 26.8 mmol/L Normal 21.0-31.0 [facility] Comment on above: Performed By: #### F ER, [id number], FE and TIBC, MG #### [facility] [address] Creatinine [Mass/Vol] 1.09 mg/dL Normal 0.70-1.30 [facility] Comment on above: Performed By: #### F ER, [id number], FE and TIBC, MG #### [facility] [address] [place] [address] [place] Creatinine Clr Calc Pharmacy 66.04 [facility] Comment on above: Result Comment: PERF ORMED BY: [place] [address] PATHOLOGIST MEDICAL SONOGRAPHER TERESA PATTERSON M.D. Performed By: #### F ER, [id number], FE and TIBC, MG #### [facility] [address] GFR/1.73 sq M.predicted MDRD (S/P/Bld) [Vol rate/Area] mL/min/{1.73_m2} [facility] Comment on above: Performed By: #### F ER, [id number], FE and TIBC, MG #### [facility] [address] Glucose [Mass/Vol] 104 mg/dL High 70-100 [facility] Comment on above: Result Comment: [place] [facility] Glucose Reference Range is dependent on time and content of last meal. Glucose of more than 200 mg/dL in a nonstressed, ambulatory subject supports the diagnosis of Diabetes Mellitus. ADA recommended reference range Performed By: #### F ER, [id number], FE and TIBC, MG #### [facility] [address] Potassium [Moles/Vol] 3.5 mmol/L Normal 3.5-5.1 [facility] Comment on above: Performed By: #### F ER, [id number], FE and TIBC, MG #### [facility] [address] Sodium [Moles/Vol] 137 mmol/L Normal 136-145 [facility] Comment on above: Performed By: #### F ER, [id number], FE and TIBC, MG #### [facility] [address] [place] [address] Urea nitrogen [Mass/Vol] 27 mg/dL High 7-25 [facility] Comment on above: Performed By: #### F ER, [id number], FE and TIBC, MG #### [address] Basophils Auto (Bld) [#/Vol] Ordered By: Jose Martin Sen on 11-08-2022 Basophils (Bld) [#/Vol] 0.1 10*3/uL 0.0-0.2 [facility] Basophils/100 WBC Auto (Bld) Ordered By: Jose Martin Sen on 11-08-2022 Basophils/100 WBC (Bld) 0.9 % . [facility] Complete Blood Count Auto Di ffon 11-08-2022 Basophils (Bld) [#/Vol] 0.1 10*3/uL Normal 0.0-0.2 [facility] Comment on above: Result Comment: PERF ORMED BY: [place] [address] PATHOLOGIST MEDICAL SONOGRAPHER TERESA PATTERSON M.D. Performed By: #### F ER, [id number], FE and TIBC, MG #### [facility] [address] [place] [address] Basophils/100 WBC (Bld) 0.9 % Normal . [facility] Comment on above: Performed By: #### F ER, [id number], FE and TIBC, MG #### [address] Eosinophils (Bld) [#/Vol] 0.1 10*3/uL Normal 0.0-0.45 [facility] Comment on above: Performed By: #### F ER, [id number], FE and TIBC, MG #### [address] Eosinophils/100 WBC (Bld) 0.9 % Normal . [facility] Comment on above: Performed By: #### F ER, [id number], FE and TIBC, MG #### [address] Erythrocyte distribution width (RBC) [Ratio] 13.7 % Normal 12.0-14.8 [facility] Comment on above: Performed By: #### F ER, [id number], FE and TIBC, MG #### [address] Hematocrit (Bld) [Volume fraction] 43.8 % Normal 38.8-50.0 [facility] Comment on above: Performed By: #### F ER, [id number], FE and TIBC, MG #### [address] Hemoglobin (Bld) [Mass/Vol] 15.4 g/dL Normal 13.0-17.0 [facility] Comment on above: Performed By: #### F ER, [id number], FE and TIBC, MG #### [address] Lymphocytes (Bld) [#/Vol] 2.7 10*3/uL Normal 1.00-4.8 [facility] Comment on above: Performed By: #### F ER, [id number], FE and TIBC, MG #### [address] Lymphocytes/100 WBC (Bld) 28.3 % Normal . [facility] Comment on above: Performed By: #### F ER, [id number], FE and TIBC, MG #### [address] MCH (RBC) [Entitic mass] 30.5 pg Normal 27.5-35.2 [facility] Comment on above: Performed By: #### F ER, [id number], FE and TIBC, MG #### [address] MCV (RBC) [Entitic vol] 86.7 fL Normal 83.5-101 [facility] Comment on above: Performed By: #### F ER, [id number], FE and TIBC, MG #### [address] Mean Corpuscular HGB Conc 35.2 g/dL Normal 32.5-35.6 [facility] Comment on above: Performed By: #### F ER, [id number], FE and TIBC, MG #### [address] Monocytes (Bld) [#/Vol] 1.3 10*3/uL High 0.0-0.8 [facility] Comment on above: Performed By: #### F ER, [id number], FE and TIBC, MG #### [address] Monocytes/100 WBC (Bld) 13.4 % Normal . [facility] Comment on above: Performed By: #### F ER, [id number], FE and TIBC, MG #### [address] Neutrophils (Bld) [#/Vol] 5.3 10*3/uL Normal 1.8-7.7 [facility] Comment on above: Performed By: #### F ER, [id number], FE and TIBC, MG #### [address] Neutrophils/100 WBC (Bld) 56.5 % Normal . [facility] Comment on above: Performed By: #### F ER, [id number], FE and TIBC, MG #### [facility] [address] NRBC% 0.1 /100{WBC} Normal 0-0.5 [facility] Comment on above: Performed By: #### F ER, [id number], FE and TIBC, MG #### [address] Platelet mean volume (Bld) [Entitic vol] 9.0 fL Normal 6.6-10.1 [facility] Comment on above: Performed By: #### F ER, [id number], FE and TIBC, MG #### [address] Platelets (Bld) [#/Vol] 224 10*3/uL Normal 150-450 [facility] Comment on above: Performed By: #### F ER, [id number], FE and TIBC, MG #### [address] RBC (Bld) [#/Vol] 5.05 10*6/uL Normal 3.90-5.60 [facility] Comment on above: Performed By: #### F ER, [id number], FE and TIBC, MG #### [address] WBC (Bld) [#/Vol] 9.4 10*3/uL Normal 4.1-10.5 [facility] Comment on above: Performed By: #### F ER, [id number], FE and TIBC, MG #### [address] Eosinophils Auto (Bld) [#/Vo l]Ordered By: Jose Martin Sen on 11-08-2022 Eosinophils (Bld) [#/Vol] 0.1 10*3/uL 0.0-0.45 [facility] Eosinophils/100 WBC Auto (Bl d)Ordered By: Jose Martin Sen on 11-08-2022 Eosinophils/100 WBC (Bld) 0.9 % . [facility] Erythrocyte distribution wid th Auto (RBC) [Ratio]Ordered By: Jose Martin Sen on 11-08-2022 Erythrocyte distribution width (RBC) [Ratio] 13.7 % 12.0-14.8 [facility] Hematocrit Auto (Bld) [Volum e fraction]Ordered By: Jose Martin Sen on 11-08-2022 Hematocrit (Bld) [Volume fraction] 43.8 % 38.8-50.0 [facility] Hemoglobin [Mass/volume] in BloodOrdered By: Jose Martin Sen on 11-08-2022 Hemoglobin (Bld) [Mass/Vol] 15.4 g/dL 13.0-17.0 [facility] Leukocytes [#/volume] correc khadra for nucleated erythrocytes in Blood by Automated counOrdered By: Jose Martin Sen on 11-08-2022 WBC corrected for nucl RBC Auto (Bld) [#/Vol] 9.4 10*3/uL 4.1-10.5 [facility] Lymphocytes Auto (Bld) [#/Vo l]Ordered By: Jose Martin Sen on 11-08-2022 Lymphocytes (Bld) [#/Vol] 2.7 10*3/uL 1.00-4.8 [facility] Lymphocytes/100 WBC Auto (Bl d)Ordered By: Jose Martin Sen on 11-08-2022 Lymphocytes/100 WBC (Bld) 28.3 % . [facility] MCH Auto (RBC) [Entitic mass ]Ordered By: Jose Martin Sen on 11-08-2022 MCH (RBC) [Entitic mass] 30.5 pg 27.5-35.2 [facility] MCHC Auto (RBC) [Mass/Vol]Or dered By: Jose Martin Sen on 11-08-2022 MCHC (RBC) [Mass/Vol] 35.2 g/dL 32.5-35.6 [facility] MCV Auto (RBC) [Entitic vol] Ordered By: Jose Martin Sen on 11-08-2022 MCV (RBC) [Entitic vol] 86.7 fL 83.5-101 [facility] Monocytes Auto (Bld) [#/Vol] Ordered By: Jose Martin Sen on 11-08-2022 Monocytes (Bld) [#/Vol] 1.3 10*3/uL 0.0-0.8 [facility] Monocytes/100 WBC Auto (Bld) Ordered By: Jose Martin Sen on 11-08-2022 Monocytes/100 WBC (Bld) 13.4 % . [facility] Neutrophils Auto (Bld) [#/Vo l]Ordered By: Jose Martin Sen on 11-08-2022 Neutrophils (Bld) [#/Vol] 5.3 10*3/uL 1.8-7.7 [facility] Neutrophils/100 WBC Auto (Bl d)Ordered By: Jose Martin Sen on 11-08-2022 Neutrophils/100 WBC (Bld) 56.5 % . [facility] Nucleated erythrocytes [Pres ence] in Blood by Automated countOrdered By: Jose Martin Sen on 11-08-2022 Nucleated RBC Auto Ql (Bld) 0.1 /100{WBC} 0-0.5 [facility] Platelet mean volume Auto (B ld) [Entitic vol]Ordered By: Jose Martin Sen on 11-08-2022 Platelet mean volume (Bld) [Entitic vol] 9.0 fL 6.6-10.1 [facility] Platelets Auto (Bld) [#/Vol] Ordered By: Jose Martin Sen on 11-08-2022 Platelets (Bld) [#/Vol] 224 10*3/uL 150-450 [facility] RBC Auto (Bld) [#/Vol]Ordere d By: Jose Martin Sen on 11-08-2022 RBC (Bld) [#/Vol] 5.05 10*6/uL 3.90-5.60 [facility] WBC Auto (Bld) [#/Vol]Ordere d By: Jose Martin Sen on 11-08-2022 WBC (Bld) [#/Vol] 9.4 10*3/uL 4.1-10.5 [facility] Basic Metabolic Panelon 10-27 Anion gap [Moles/Vol] 10.7 mmol/L Normal 6.0-15.0 [facility] Comment on above: Performed By: #### F ER, [id number], FE and TIBC, MG #### [address] Calcium [Mass/Vol] 9.4 mg/dL Normal 8.6-10.3 [facility] Comment on above: Performed By: #### F ER, [id number], FE and TIBC, MG #### [facility] [address] Chloride [Moles/Vol] 100 mmol/L Normal 98-107 [facility] Comment on above: Performed By: #### F ER, [id number], FE and TIBC, MG #### [address] CO2 [Moles/Vol] 28.8 mmol/L Normal 21.0-31.0 [facility] Comment on above: Performed By: #### F ER, [id number], FE and TIBC, MG #### [address] Creatinine [Mass/Vol] 1.13 mg/dL Normal 0.70-1.30 [facility] Comment on above: Performed By: #### F ER, [id number], FE and TIBC, MG #### [address] Creatinine Clr Calc Pharmacy 63.70 [facility] Comment on above: Result Comment: PERF ORMED BY: [place] [address] PATHOLOGIST MEDICAL SONOGRAPHER TERESA PATTERSON M.D. Performed By: #### F ER, [id number], FE and TIBC, MG #### [place] [address] [place] GFR/1.73 sq M.predicted MDRD (S/P/Bld) [Vol rate/Area] mL/min/{1.73_m2} [facility] Comment on above: Performed By: #### F ER, [id number], FE and TIBC, MG #### [facility] [address] Glucose [Mass/Vol] 105 mg/dL High 70-100 [facility] Comment on above: Result Comment: [facility] Glucose Reference Range is dependent on time and content of last meal. Glucose of more than 200 mg/dL in a nonstressed, ambulatory subject supports the diagnosis of Diabetes Mellitus. ADA recommended reference range Performed By: #### F ER, [id number], FE and TIBC, MG #### [facility] [address] Potassium [Moles/Vol] 3.5 mmol/L Normal 3.5-5.1 [facility] Comment on above: Performed By: #### F ER, [id number], FE and TIBC, MG #### [facility] [address] Sodium [Moles/Vol] 136 mmol/L Normal 136-145 [facility] Comment on above: Performed By: #### F ER, [id number], FE and TIBC, MG #### [facility] [address] Urea nitrogen [Mass/Vol] 28 mg/dL High 7-25 [facility] Comment on above: Performed By: #### F ER, [id number], FE and TIBC, MG #### [facility] [address] Bilirubin Test strip Ql (U)O rdered By: Jose Martin Sen on 11-07-2022 Bilirubin Ql (U) Negative Negative [facility] CT head/brain wo conon 11-07 CT head/brain wo con [facility] [place] [address] [place] [address] CT Scan Report Signed Patient: Viraj Doherty MR#: [id number] : 1955 Acct:[id number] Age/Sex: 67 / M ADM Date: 11/02/22 Loc: Room: [address] [place] [address] Type: ADM IN Attending Dr: Jose Martin [...] Impression dictated by: Jose Martin Jha Jr., D.O.11/07/2022 3:24 PM Dictation Location: [place] [address] Transcribed By: [facility] 11/07/22 1524 Dictated By: Jose Martin Jha Jr, DO 11/07/22 1521 Signed By: 11/07/22 1524 Normal [facility] Color Auto (U)Ordered By: Karen Sen on 11-07-2022 Color (U) Yellow Yellow [facility] Complete Blood Count Auto Di ffon 11-07-2022 Basophils (Bld) [#/Vol] 0.1 10*3/uL Normal 0.0-0.2 [facility] Comment on above: Result Comment: PERF ORMED BY: [facility] [address] [place] [address] PATHOLOGIST MEDICAL SONOGRAPHER TERESA PATTERSON M.D. Performed By: #### F ER, [id number], FE and TIBC, MG #### [address] Basophils/100 WBC (Bld) 1.1 % Normal . [facility] Comment on above: Performed By: #### F ER, [id number], FE and TIBC, MG #### [address] Eosinophils (Bld) [#/Vol] 0.0 10*3/uL Normal 0.0-0.45 [facility] Comment on above: Performed By: #### F ER, [id number], FE and TIBC, MG #### [address] Eosinophils/100 WBC (Bld) 0.4 % Normal . [facility] Comment on above: Performed By: #### F ER, [id number], FE and TIBC, MG #### [address] Erythrocyte distribution width (RBC) [Ratio] 14.2 % Normal 12.0-14.8 [facility] Comment on above: Performed By: #### F ER, [id number], FE and TIBC, MG #### [address] Hematocrit (Bld) [Volume fraction] 45.3 % Normal 38.8-50.0 [facility] Comment on above: Performed By: #### F ER, [id number], FE and TIBC, MG #### [address] Hemoglobin (Bld) [Mass/Vol] 15.9 g/dL Normal 13.0-17.0 [facility] Comment on above: Performed By: #### F ER, [id number], FE and TIBC, MG #### [address] Lymphocytes (Bld) [#/Vol] 1.7 10*3/uL Normal 1.00-4.8 [facility] Comment on above: Performed By: #### F ER, [id number], FE and TIBC, MG #### [address] Lymphocytes/100 WBC (Bld) 21.8 % Normal . [facility] Comment on above: Performed By: #### F ER, [id number], FE and TIBC, MG #### [address] MCH (RBC) [Entitic mass] 30.6 pg Normal 27.5-35.2 [facility] Comment on above: Performed By: #### F ER, [id number], FE and TIBC, MG #### [address] MCV (RBC) [Entitic vol] 87.4 fL Normal 83.5-101 [facility] Comment on above: Performed By: #### F ER, [id number], FE and TIBC, MG #### [address] Mean Corpuscular HGB Conc 35.1 g/dL Normal 32.5-35.6 [facility] Comment on above: Performed By: #### F ER, [id number], FE and TIBC, MG #### [address] Monocytes (Bld) [#/Vol] 1.0 10*3/uL High 0.0-0.8 [facility] Comment on above: Performed By: #### F ER, [id number], FE and TIBC, MG #### [address] Monocytes/100 WBC (Bld) 12.9 % Normal . [facility] Comment on above: Performed By: #### F ER, [id number], FE and TIBC, MG #### [address] Neutrophils (Bld) [#/Vol] 4.9 10*3/uL Normal 1.8-7.7 [facility] Comment on above: Performed By: #### F ER, [id number], FE and TIBC, MG #### [address] Neutrophils/100 WBC (Bld) 63.8 % Normal . [facility] Comment on above: Performed By: #### F ER, [id number], FE and TIBC, MG #### [facility] [address] NRBC% 0.1 /100{WBC} Normal 0-0.5 [facility] Comment on above: Performed By: #### F ER, [id number], FE and TIBC, MG #### [address] Platelet mean volume (Bld) [Entitic vol] 8.5 fL Normal 6.6-10.1 [facility] Comment on above: Performed By: #### F ER, [id number], FE and TIBC, MG #### [address] Platelets (Bld) [#/Vol] 215 10*3/uL Normal 150-450 [facility] Comment on above: Performed By: #### F ER, [id number], FE and TIBC, MG #### [address] RBC (Bld) [#/Vol] 5.19 10*6/uL Normal 3.90-5.60 [facility] Comment on above: Performed By: #### F ER, [id number], FE and TIBC, MG #### [address] WBC (Bld) [#/Vol] 7.6 10*3/uL Normal 4.1-10.5 [facility] Comment on above: Performed By: #### F ER, [id number], FE and TIBC, MG #### [address] Ketones Auto test strip (U) [Mass/Vol]Ordered By: Jose Martin Sen on 11-07-2022 Ketones (U) [Mass/Vol] Negative Negative [facility] Nitrite Test strip Ql (U)Ord ered By: Jose Martin eSn on 11-07-2022 Nitrite Ql (U) Negative Negative [facility] Potassiumon 11-07-2022 Potassium [Moles/Vol] 3.8 mmol/L Normal 3.5-5.1 [facility] Comment on above: Result Comment: PERF ORMED BY: [facility] [address] [place] [address] PATHOLOGIST MEDICAL SONOGRAPHER TERESA PATTERSON M.D. Performed By: #### F ER, [id number], FE and TIBC, MG #### [facility] [address] Protein Auto test strip (U) [Mass/Vol]Ordered By: Jose Martin Sen on 11-07-2022 Protein (U) [Mass/Vol] Negative Negative [facility] Specific gravity Auto test s trip (U) [Rel density]Ordered By: Jose Martin Mckinley on 11-07-2022 Specific gravity (U) [Rel density] 1.014 1.001-1.030 [facility] Urinalysison 11-07-2022 Appearance (U) Clear Normal Clear [facility] Comment on above: Order Comment: Comme nt add Comment add Performed By: #### F ER, [id number], FE and TIBC, MG #### [facility] [address] [place] [address] [place] Bilirubin,Urine Negative Normal Negative [facility] Comment on above: Order Comment: Comme nt add Comment add Performed By: #### F ER, [id number], FE and TIBC, MG #### [facility] [address] [place] [address] [place] Color (U) Yellow Normal Yellow [facility] Comment on above: Order Comment: Comme nt add Comment add Performed By: #### F ER, [id number], FE and TIBC, MG #### [facility] [address] [place] [address] [place] Glucose Ql (U) Normal Normal Normal [facility] Comment on above: Order Comment: Comme nt add Comment add Performed By: #### F ER, [id number], FE and TIBC, MG #### [facility] [address] [place] [address] Ketones Ql (U) Negative Normal Negative [facility] Comment on above: Order Comment: Comme nt add Comment add Performed By: #### F ER, [id number], FE and TIBC, MG #### [address] Leukocyte esterase Test strip Ql (U) Negative Normal Negative [facility] Comment on above: Order Comment: Comme nt add Comment add Performed By: #### F ER, [id number], FE and TIBC, MG #### [address] Nitrite,Urine Negative Normal Negative [facility] Comment on above: Order Comment: Comme nt add Comment add Performed By: #### F ER, [id number], FE and TIBC, MG #### [address] Occult Blood,Urine Negative Normal Negative [facility] Comment on above: Order Comment: Comme nt add Comment add Result Comment: PERF ORMED BY: [place] [address] PATHOLOGIST MEDICAL SONOGRAPHER TERESA PATTERSON M.D. Performed By: #### F ER, [id number], FE and TIBC, MG #### [address] pH (U) 5.5 [pH] Normal 5.0-9.0 [facility] Comment on above: Order Comment: Comme nt add Comment add Performed By: #### F ER, [id number], FE and TIBC, MG #### [address] Protein,Urine Negative Normal Negative [facility] Comment on above: Order Comment: Comme nt add Comment add Performed By: #### F ER, [id number], FE and TIBC, MG #### [facility] [address] Specificy [place],Urine 1.014 Normal 1.001-1.030 [facility] Comment on above: Order Comment: Comme nt add Comment add Performed By: #### F ER, [id number], FE and TIBC, MG #### [facility] [address] Urobilinogen,Urine Normal Normal Normal [facility] Comment on above: Order Comment: Comme nt add Comment add Performed By: #### F ER, [id number], FE and TIBC, MG #### [facility] [address] Urine clarity by refractomet ry automatedOrdered By: Jose Martin Sen on 11-07-2022 Clarity Refractometry automated (U) Clear Clear [facility] Urine glucose measurement by automated test strip (mass/volume)Ordered By: Jose Martin Sen on 11-07-2022 Glucose Auto test strip (U) [Mass/Vol] Normal mg/dL Normal [facility] Urine hemoglobin detection b y automated test stripOrdered By: Jose Martin Sen on 11-07-2022 Hemoglobin Auto test strip Ql (U) Negative Negative [facility] Urine leukocyte esterase det ection by automated test stripOrdered By: Jose Martin Sen on 11-07-2022 Leukocyte esterase Auto test strip Ql (U) Negative Negative [facility] Urobilinogen Auto test strip (U) [Mass/Vol]Ordered By: Jose Martin Sen on 11-07-2022 Urobilinogen (U) [Mass/Vol] Normal mg/dL Normal [facility] pH Auto test strip (U)Ordere d By: Jose Martin Sen on 11-07-2022 pH (U) 5.5 [pH] 5.0-9.0 [facility] Basic Metabolic Panelon 10-27 Anion gap [Moles/Vol] 11.0 mmol/L Normal 6.0-15.0 [facility] Comment on above: Performed By: #### F ER, [id number], FE and TIBC, MG #### [facility] [address] Calcium [Mass/Vol] 9.2 mg/dL Normal 8.6-10.3 [facility] Comment on above: Performed By: #### F ER, [id number], FE and TIBC, MG #### [facility] [address] Chloride [Moles/Vol] 105 mmol/L Normal 98-107 [facility] Comment on above: Performed By: #### F ER, [id number], FE and TIBC, MG #### [facility] [address] CO2 [Moles/Vol] 24.3 mmol/L Normal 21.0-31.0 [facility] Comment on above: Performed By: #### F ER, [id number], FE and TIBC, MG #### [facility] [address] Creatinine [Mass/Vol] 1.14 mg/dL Normal 0.70-1.30 [facility] Comment on above: Performed By: #### F ER, [id number], FE and TIBC, MG #### [facility] [address] [place] [address] [place] Creatinine Clr Calc Pharmacy 63.15 [facility] Comment on above: Result Comment: PERF ORMED BY: [place] [address] PATHOLOGIST MEDICAL SONOGRAPHER TERESA PATTERSON M.D. Performed By: #### F ER, [id number], FE and TIBC, MG #### [facility] [address] [place] [address] [place] GFR/1.73 sq M.predicted MDRD (S/P/Bld) [Vol rate/Area] mL/min/{1.73_m2} [facility] Comment on above: Performed By: #### F ER, [id number], FE and TIBC, MG #### [facility] [address] [place] [address] [place] Glucose [Mass/Vol] 104 mg/dL High 70-100 [facility] Comment on above: Result Comment: [facility] Glucose Reference Range is dependent on time and content of last meal. Glucose of more than 200 mg/dL in a nonstressed, ambulatory subject supports the diagnosis of Diabetes Mellitus. ADA recommended reference range Performed By: #### F ER, [id number], FE and TIBC, MG #### [facility] [address] Potassium [Moles/Vol] 3.3 mmol/L Low 3.5-5.1 [facility] Comment on above: Performed By: #### F ER, [id number], FE and TIBC, MG #### [facility] [address] Sodium [Moles/Vol] 137 mmol/L Normal 136-145 [facility] Comment on above: Performed By: #### F ER, [id number], FE and TIBC, MG #### [address] Urea nitrogen [Mass/Vol] 35 mg/dL High 7-25 [facility] Comment on above: Performed By: #### F ER, [id number], FE and TIBC, MG #### [address] Basic Metabolic Panelon 09-2022 Anion gap [Moles/Vol] 11.0 mmol/L Normal 6.0-15.0 [facility] Comment on above: Performed By: #### B MP, CBC #### [facility] [address] [place] [address] [place] Calcium [Mass/Vol] 9.3 mg/dL Normal 8.6-10.3 [facility] Comment on above: Performed By: #### B MP, CBC #### [facility] [address] [place] [address] [place] Chloride [Moles/Vol] 105 mmol/L Normal 98-107 [facility] Comment on above: Performed By: #### B MP, CBC #### [facility] [address] [place] [address] [place] CO2 [Moles/Vol] 23.1 mmol/L Normal 21.0-31.0 [facility] Comment on above: Performed By: #### B MP, CBC #### [facility] [address] [place] [address] [place] Creatinine [Mass/Vol] 1.42 mg/dL High 0.70-1.30 [facility] Comment on above: Performed By: #### B MP, CBC #### [facility] [address] [place] [address] [place] Creatinine Clr Calc Pharmacy 50.69 Normal [facility] Comment on above: Result Comment: PERF ORMED BY: [place] [address] PATHOLOGIST MEDICAL SONOGRAPHER TERESA PATTERSON M.D. Performed By: #### B MP, CBC #### [place] [address] [place] GFR/1.73 sq M.predicted MDRD (S/P/Bld) [Vol rate/Area] 53.489 mL/min/{1.73_m2} Normal [facility] Comment on above: Performed By: #### B MP, CBC #### [place] [address] [place] Glucose [Mass/Vol] 100 mg/dL Normal 70-100 [facility] Comment on above: Result Comment: [place] Glucose Reference Range is dependent on time and content of last meal. Glucose of more than 200 mg/dL in a nonstressed, ambulatory subject supports the diagnosis of Diabetes Mellitus. ADA recommended reference range Performed By: #### B MP, CBC #### [facility] [address] [place] [address] [place] Potassium [Moles/Vol] 3.1 mmol/L Low 3.5-5.1 [facility] Comment on above: Performed By: #### B MP, CBC #### [facility] [address] [place] [address] [place] Sodium [Moles/Vol] 136 mmol/L Normal 136-145 [facility] Comment on above: Performed By: #### B MP, CBC #### [facility] [address] Urea nitrogen [Mass/Vol] 37 mg/dL High 7-25 [facility] Comment on above: Performed By: #### B MP, CBC #### [facility] [address] Basic Metabolic Panelon 09-0 Anion gap [Moles/Vol] 12.5 mmol/L Normal 6.0-15.0 [facility] Comment on above: Performed By: #### F ER, [id number], FE and TIBC, MG #### [facility] [address] Calcium [Mass/Vol] 9.3 mg/dL Normal 8.6-10.3 [facility] Comment on above: Performed By: #### F ER, [id number], FE and TIBC, MG #### [facility] [address] Chloride [Moles/Vol] 104 mmol/L Normal 98-107 [facility] Comment on above: Performed By: #### F ER, [id number], FE and TIBC, MG #### [address] CO2 [Moles/Vol] 23.7 mmol/L Normal 21.0-31.0 [facility] Comment on above: Performed By: #### F ER, [id number], FE and TIBC, MG #### [facility] [address] Creatinine [Mass/Vol] 1.26 mg/dL Normal 0.70-1.30 [facility] Comment on above: Performed By: #### F ER, [id number], FE and TIBC, MG #### [facility] [address] [place] [address] [place] Creatinine Clr Calc Pharmacy 58.54 Normal [facility] Comment on above: Performed By: #### F ER, [id number], FE and TIBC, MG #### [facility] [address] [place] [address] [place] GFR/1.73 sq M.predicted MDRD (S/P/Bld) [Vol rate/Area] mL/min/{1.73_m2} Normal [facility] Comment on above: Performed By: #### F ER, [id number], FE and TIBC, MG #### [facility] [address] Glucose [Mass/Vol] 102 mg/dL High 70-100 [facility] Comment on above: Result Comment: [facility] Glucose Reference Range is dependent on time and content of last meal. Glucose of more than 200 mg/dL in a nonstressed, ambulatory subject supports the diagnosis of Diabetes Mellitus. ADA recommended reference range Performed By: #### F ER, [id number], FE and TIBC, MG #### [facility] [address] Potassium [Moles/Vol] 3.2 mmol/L Low 3.5-5.1 [facility] Comment on above: Performed By: #### F ER, [id number], FE and TIBC, MG #### [facility] [address] Sodium [Moles/Vol] 137 mmol/L Normal 136-145 [facility] Comment on above: Performed By: #### F ER, [id number], FE and TIBC, MG #### [facility] [address] Urea nitrogen [Mass/Vol] 29 mg/dL High 7-25 [facility] Comment on above: Performed By: #### F ER, [id number], FE and TIBC, MG #### [facility] [address] Magnesiumon 11-04-2022 Magnesium [Mass/Vol] 2.0 mg/dL Normal 1.9-2.7 [facility] Comment on above: Result Comment: PERF ORMED BY: [facility] [address] [place] [address] PATHOLOGIST MEDICAL SONOGRAPHER TERESA PATTERSON M.D. Performed By: #### F ER, [id number], FE and TIBC, MG #### [facility] [address] Magnesium [Mass/volume] in S shani or PlasmaOrdered By: Sara Osorio on 11-04-2022 Magnesium [Mass/Vol] 2.0 mg/dL 1.9-2.7 [facility] Alanine aminotransferase [En zymatic activity/volume] in Serum or PlasmaOrdered By: Janice Altamirano on 11-03-2022 ALT [Catalytic activity/Vol] 17 U/L 7-52 [facility] Albumin [Mass/volume] in Ser um or Plasma by Bromocresol green (BCG) dye binding methoOrdered By: Janice Altamirano on 11-03-2022 Albumin BCG dye [Mass/Vol] 4.5 g/dL 3.5-5.7 [facility] Alkaline phosphatase [Enzyma tic activity/volume] in Serum or PlasmaOrdered By: Janice Altamirano on 11-03-2022 ALP [Catalytic activity/Vol] 64 U/L 34-104 [facility] Anisocytosis LM Ql (Bld)Orde red By: Janice Altamirano on 11-03-2022 Anisocytosis Ql (Bld) Slight [facility] Aspartate aminotransferase [ Enzymatic activity/volume] in Serum or PlasmaOrdered By: Janice Altamirano on 11-03-2022 AST [Catalytic activity/Vol] 19 U/L 13-39 [facility] Bilirubin.total [Mass/volume ] in Serum or PlasmaOrdered By: Janice Altamirano on 11-03-2022 Bilirubin [Mass/Vol] 1.6 mg/dL 0.3-1.0 [facility] Comment on above: Samples from patient s who have taken Naproxen have shown spurious elevation in Total Bilirubin levels. A metabolite of Naproxen, O-desmethylnaproxen, has been shown to interfere with the Ti-Dakota method for measuring Total Bilirubin. Comprehensive Metabolic Pane nitza 11-03-2022 Albumin [Mass/Vol] 4.5 g/dL Normal 3.5-5.7 [facility] Comment on above: Performed By: #### S CAN CBC, PAB, CMP #### [address] Albumin/Globulin [Mass ratio] 1.5 {ratio} Normal [facility] Comment on above: Performed By: #### S CAN CBC, PAB, CMP #### [address] ALP [Catalytic activity/Vol] 64 U/L Normal 34-104 [facility] Comment on above: Performed By: #### S CAN CBC, PAB, CMP #### [address] ALT [Catalytic activity/Vol] 17 U/L Normal 7-52 [facility] Comment on above: Performed By: #### S CAN CBC, PAB, CMP #### [address] Anion gap [Moles/Vol] 10.1 mmol/L Normal 6.0-15.0 [facility] Comment on above: Performed By: #### S CAN CBC, PAB, CMP #### [address] AST [Catalytic activity/Vol] 19 U/L Normal 13-39 [facility] Comment on above: Performed By: #### S CAN CBC, PAB, CMP #### [address] Bilirubin [Mass/Vol] 1.6 mg/dL High 0.3-1.0 [facility] Comment on above: Result Comment: Samp les from patients who have taken Naproxen have shown spurious elevation in Total Bilirubin levels. A metabolite of Naproxen, O-desmethylnaproxen, has been shown to interfere with the Jendrjacquelynik-Gauravf method for measuring Total Bilirubin. Performed By: #### S CAN CBC, PAB, CMP #### [address] Calcium [Mass/Vol] 9.6 mg/dL Normal 8.6-10.3 [facility] Comment on above: Performed By: #### S CAN CBC, PAB, CMP #### [facility] [address] Chloride [Moles/Vol] 102 mmol/L Normal 98-107 [facility] Comment on above: Performed By: #### S CAN CBC, PAB, CMP #### [facility] [address] CO2 [Moles/Vol] 28.3 mmol/L Normal 21.0-31.0 [facility] Comment on above: Performed By: #### S CAN CBC, PAB, CMP #### [address] Creatinine [Mass/Vol] 1.21 mg/dL Normal 0.70-1.30 [facility] Comment on above: Performed By: #### S CAN CBC, PAB, CMP #### [place] [address] [place] Creatinine Clr Calc Pharmacy 60.96 [facility] Comment on above: Performed By: #### S CAN CBC, PAB, CMP #### [place] [address] [place] GFR/1.73 sq M.predicted MDRD (S/P/Bld) [Vol rate/Area] mL/min/{1.73_m2} [facility] Comment on above: Performed By: #### S CAN CBC, PAB, CMP #### [address] Globulin (S) [Mass/Vol] 3.1 g/dL [facility] Comment on above: Performed By: #### S CAN CBC, PAB, CMP #### [place] [address] [place] Glucose [Mass/Vol] 95 mg/dL Normal 70-100 [facility] Comment on above: Result Comment: [place] Glucose Reference Range is dependent on time and content of last meal. Glucose of more than 200 mg/dL in a nonstressed, ambulatory subject supports the diagnosis of Diabetes Mellitus. ADA recommended reference range Performed By: #### S CAN CBC, PAB, CMP #### [facility] [address] Potassium [Moles/Vol] 3.4 mmol/L Low 3.5-5.1 [facility] Comment on above: Performed By: #### S CAN CBC, PAB, CMP #### [facility] [address] Protein [Mass/Vol] 7.6 g/dL Normal 6.4-8.9 [facility] Comment on above: Performed By: #### S CAN CBC, PAB, CMP #### [facility] [address] Sodium [Moles/Vol] 137 mmol/L Normal 136-145 [facility] Comment on above: Performed By: #### S CAN CBC, PAB, CMP #### [facility] [address] Urea nitrogen [Mass/Vol] 23 mg/dL Normal 7-25 [facility] Comment on above: Performed By: #### S CAN CBC, PAB, CMP #### [facility] [address] Globulin Calc (S) [Mass/Vol] Ordered By: Janice Altamirano on 11-03-2022 Globulin (S) [Mass/Vol] 3.1 g/dL [facility] Microcytes LM Ql (Bld)Ordere d By: Janice Altamirano on 11-03-2022 Microcytes Ql (Bld) Slight [facility] Platelet adequacy [Presence] in Blood by Light microscopyOrdered By: Janice Altamirano on 11-03-2022 Platelets LM Ql (Bld) Normal Normal [facility] Platelet morphology finding [Identifier] in BloodOrdered By: Janice Altamirano on 11-03-2022 Platelet morphology finding Nom (Bld) Normal Normal [facility] Potassiumon 11-03-2022 Potassium [Moles/Vol] 3.4 mmol/L Low 3.5-5.1 [facility] Comment on above: Result Comment: PERF ORMED BY: [place] [address] PATHOLOGIST MEDICAL SONOGRAPHER TERESA PATTERSON M.D. Performed By: #### K #### [facility] [address] [place] [address] Prealbuminon 11-03-2022 Prealbumin [Mass/Vol] 28.1 mg/dL Normal 17.0-34.0 [facility] Comment on above: Result Comment: PERF ORMED BY: [place] [address] PATHOLOGIST MEDICAL SONOGRAPHER TERESA PATTERSON M.D. Performed By: #### S CAN CBC, PAB, CMP #### [facility] [address] [place] [address] Prealbumin [Mass/volume] in Serum or PlasmaOrdered By: Janice Altamirano on 11-03-2022 Prealbumin [Mass/Vol] 28.1 mg/dL 17.0-34.0 [facility] Protein [Mass/volume] in Ser um or PlasmaOrdered By: Janice Altamirano on 11-03-2022 Protein [Mass/Vol] 7.6 g/dL 6.4-8.9 [facility] RBC morphologyOrdered By: Twan Altamirano on 11-03-2022 RBC morphology finding Nom (Bld) N/A [facility] Scan and CBCon 11-03-2022 Anisocytosis Ql (Bld) Slight Normal [facility] Comment on above: Performed By: #### B MP, CBC #### [facility] [address] [place] [address] Basophils (Bld) [#/Vol] 0.1 10*3/uL Normal 0.0-0.2 [facility] Comment on above: Performed By: #### B MP, CBC #### [facility] [address] [place] [address] Basophils/100 WBC (Bld) 0.8 % Normal . [facility] Comment on above: Performed By: #### B MP, CBC #### [facility] [address] Eosinophils (Bld) [#/Vol] 0.1 10*3/uL Normal 0.0-0.45 [facility] Comment on above: Performed By: #### B MP, CBC #### [facility] [address] Eosinophils/100 WBC (Bld) 0.8 % Normal . [facility] Comment on above: Performed By: #### B MP, CBC #### [address] Erythrocyte distribution width (RBC) [Ratio] 14.3 % Normal 12.0-14.8 [facility] Comment on above: Performed By: #### B MP, CBC #### [address] Hematocrit (Bld) [Volume fraction] 49.6 % Normal 38.8-50.0 [facility] Comment on above: Performed By: #### B MP, CBC #### [address] Hemoglobin (Bld) [Mass/Vol] 17.4 g/dL High 13.0-17.0 [facility] Comment on above: Performed By: #### B MP, CBC #### [address] Lymphocytes (Bld) [#/Vol] 3.0 10*3/uL Normal 1.00-4.8 [facility] Comment on above: Performed By: #### B MP, CBC #### [address] Lymphocytes/100 WBC (Bld) 21.6 % Normal . [facility] Comment on above: Performed By: #### B MP, CBC #### [address] MCH (RBC) [Entitic mass] 30.8 pg Normal 27.5-35.2 [facility] Comment on above: Performed By: #### B MP, CBC #### [place] [address] [place] MCV (RBC) [Entitic vol] 87.9 fL Normal 83.5-101 [facility] Comment on above: Performed By: #### B MP, CBC #### [address] Mean Corpuscular HGB Conc 35.0 g/dL Normal 32.5-35.6 [facility] Comment on above: Performed By: #### B MP, CBC #### [address] Microcytosis Slight Normal [facility] Comment on above: Performed By: #### B MP, CBC #### [address] Monocytes (Bld) [#/Vol] 1.7 10*3/uL High 0.0-0.8 [facility] Comment on above: Performed By: #### B MP, CBC #### [address] Monocytes/100 WBC (Bld) 12.2 % Normal . [facility] Comment on above: Performed By: #### B MP, CBC #### [address] Neutrophils (Bld) [#/Vol] 8.9 10*3/uL High 1.8-7.7 [facility] Comment on above: Performed By: #### B MP, CBC #### [address] Neutrophils/100 WBC (Bld) 64.6 % Normal . [facility] Comment on above: Performed By: #### B MP, CBC #### [address] NRBC% 0.0 /100{WBC} Normal 0-0.5 [facility] Comment on above: Performed By: #### B MP, CBC #### [address] Platelet Estimate Normal Normal Normal [facility] Comment on above: Performed By: #### B MP, CBC #### [facility] [address] [place] [address] Platelet mean volume (Bld) [Entitic vol] 8.7 fL Normal 6.6-10.1 [facility] Comment on above: Performed By: #### B MP, CBC #### [address] Platelet Morphology Normal Normal Normal [facility] Comment on above: Result Comment: PERF ORMED BY: [place] [address] PATHOLOGIST MEDICAL SONOGRAPHER TERESA PATTERSON M.D. Performed By: #### B MP, CBC #### [address] Platelets (Bld) [#/Vol] 191 10*3/uL Normal 150-450 [facility] Comment on above: Performed By: #### B MP, CBC #### [address] RBC (Bld) [#/Vol] 5.65 10*6/uL High 3.90-5.60 [facility] Comment on above: Performed By: #### B MP, CBC #### [address] WBC (Bld) [#/Vol] 13.7 10*3/uL High 4.1-10.5 [facility] Comment on above: Performed By: #### B MP, CBC #### [address] Serum or plasma albumin/glob ulin mass ratioOrdered By: Janice Altamirano on 11-03-2022 Albumin/Globulin [Mass ratio] 1.5 {ratio} [facility] Stool Cultureon 11-03-2022 Stool culture Comment add to colle cted stool sample Negative for Shiga Toxin 1 Negative for Shiga Toxin 2 -- A negative Shiga Toxin result may occur if the antigen level in the specimen is below the detection limit of the assay. Stool culture results No Salmonella, Shigella, Campy or E. coli [id number] Isolated PERFORMED BY: [place] [address] PATHOLOGIST MEDICAL SONOGRAPHER TERESA PATTERSON M.D. [facility] Comment on above: Performed By: #### C USTOOL #### [address] Stool bacteria identificatio n by cultureOrdered By: Sara Osorio on 11-03-2022 Bacteria identified Cx Nom (Stl) [facility] Basic Metabolic Panelon Anion gap [Moles/Vol] 13.3 mmol/L Normal 6.0-15.0 [facility] Comment on above: Performed By: #### F ER, [id number], FE and TIBC, MG #### [address] Calcium [Mass/Vol] 9.5 mg/dL Normal 8.6-10.3 [facility] Comment on above: Performed By: #### F ER, [id number], FE and TIBC, MG #### [address] Chloride [Moles/Vol] 103 mmol/L Normal 98-107 [facility] Comment on above: Performed By: #### F ER, [id number], FE and TIBC, MG #### [address] CO2 [Moles/Vol] 24.9 mmol/L Normal 21.0-31.0 [facility] Comment on above: Performed By: #### F ER, [id number], FE and TIBC, MG #### [address] Creatinine [Mass/Vol] 1.10 mg/dL Normal 0.70-1.30 [facility] Comment on above: Performed By: #### F ER, [id number], FE and TIBC, MG #### [facility] [address] Creatinine Clr Calc Pharmacy 67.50 [facility] Comment on above: Result Comment: PERF ORMED BY: [place] [address] PATHOLOGIST MEDICAL SONOGRAPHER TERESA PATTERSON M.D. Performed By: #### F ER, [id number], FE and TIBC, MG #### [facility] [address] [place] [address] [place] GFR/1.73 sq M.predicted MDRD (S/P/Bld) [Vol rate/Area] mL/min/{1.73_m2} [facility] Comment on above: Performed By: #### F ER, [id number], FE and TIBC, MG #### [facility] [address] Glucose [Mass/Vol] 114 mg/dL High 70-100 [facility] Comment on above: Result Comment: [facility] Glucose Reference Range is dependent on time and content of last meal. Glucose of more than 200 mg/dL in a nonstressed, ambulatory subject supports the diagnosis of Diabetes Mellitus. ADA recommended reference range Performed By: #### F ER, [id number], FE and TIBC, MG #### [facility] [address] Potassium [Moles/Vol] 3.2 mmol/L Low 3.5-5.1 [facility] Comment on above: Performed By: #### F ER, [id number], FE and TIBC, MG #### [facility] [address] Sodium [Moles/Vol] 138 mmol/L Normal 136-145 [facility] Comment on above: Performed By: #### F ER, [id number], FE and TIBC, MG #### [facility] [address] [place] [address] [place] Urea nitrogen [Mass/Vol] 20 mg/dL Normal 7-25 [facility] Comment on above: Performed By: #### F ER, [id number], FE and TIBC, MG #### [facility] [address] [place] [address] [place] Basophils Auto (Bld) [#/Vol] Ordered By: [facility] on 11-02-2022 Basophils (Bld) [#/Vol] 0.1 10*3/uL 0.0-0.2 [facility] Basophils/100 WBC Auto (Bld) Ordered By: [facility] on 11-02-2022 Basophils/100 WBC (Bld) 0.8 % . [facility] Calcium [Mass/volume] in Ser um or PlasmaOrdered By: [facility] on 11-02-2022 Calcium [Mass/Vol] 9.5 mg/dL 8.6-10.3 [facility] Carbon dioxide, total [Moles /volume] in Serum or PlasmaOrdered By: [facility] on 11-02-2022 CO2 [Moles/Vol] 24.9 mmol/L 21.0-31.0 [facility] Chloride [Moles/volume] in S shani or PlasmaOrdered By: [facility] on 11-02-2022 Chloride [Moles/Vol] 103 mmol/L 98-107 [facility] Complete Blood Count Auto Di ffon 11-02-2022 Basophils (Bld) [#/Vol] 0.1 10*3/uL Normal 0.0-0.2 [facility] Comment on above: Result Comment: PERF ORMED BY: [facility] [address] [place] [address] PATHOLOGIST MEDICAL SONOGRAPHER TERESA PATTERSON M.D. Performed By: #### F ER, [id number], FE and TIBC, MG #### [facility] [address] Basophils/100 WBC (Bld) 0.8 % Normal . [facility] Comment on above: Performed By: #### F ER, [id number], FE and TIBC, MG #### [address] Eosinophils (Bld) [#/Vol] 0.0 10*3/uL Normal 0.0-0.45 [facility] Comment on above: Performed By: #### F ER, [id number], FE and TIBC, MG #### [address] Eosinophils/100 WBC (Bld) 0.1 % Normal . [facility] Comment on above: Performed By: #### F ER, [id number], FE and TIBC, MG #### [address] Erythrocyte distribution width (RBC) [Ratio] 14.5 % Normal 12.0-14.8 [facility] Comment on above: Performed By: #### F ER, [id number], FE and TIBC, MG #### [address] Hematocrit (Bld) [Volume fraction] 47.6 % Normal 38.8-50.0 [facility] Comment on above: Performed By: #### F ER, [id number], FE and TIBC, MG #### [address] Hemoglobin (Bld) [Mass/Vol] 16.8 g/dL Normal 13.0-17.0 [facility] Comment on above: Performed By: #### F ER, [id number], FE and TIBC, MG #### [address] Lymphocytes (Bld) [#/Vol] 2.6 10*3/uL Normal 1.00-4.8 [facility] Comment on above: Performed By: #### F ER, [id number], FE and TIBC, MG #### [address] Lymphocytes/100 WBC (Bld) 18.5 % Normal . [facility] Comment on above: Performed By: #### F ER, [id number], FE and TIBC, MG #### [address] MCH (RBC) [Entitic mass] 30.8 pg Normal 27.5-35.2 [facility] Comment on above: Performed By: #### F ER, [id number], FE and TIBC, MG #### [address] MCV (RBC) [Entitic vol] 86.9 fL Normal 83.5-101 [facility] Comment on above: Performed By: #### F ER, [id number], FE and TIBC, MG #### [address] Mean Corpuscular HGB Conc 35.4 g/dL Normal 32.5-35.6 [facility] Comment on above: Performed By: #### F ER, [id number], FE and TIBC, MG #### [address] Monocytes (Bld) [#/Vol] 1.3 10*3/uL High 0.0-0.8 [facility] Comment on above: Performed By: #### F ER, [id number], FE and TIBC, MG #### [address] Monocytes/100 WBC (Bld) 9.2 % Normal . [facility] Comment on above: Performed By: #### F ER, [id number], FE and TIBC, MG #### [address] Neutrophils (Bld) [#/Vol] 10.2 10*3/uL High 1.8-7.7 [facility] Comment on above: Performed By: #### F ER, [id number], FE and TIBC, MG #### [address] Neutrophils/100 WBC (Bld) 71.4 % Normal . [facility] Comment on above: Performed By: #### F ER, [id number], FE and TIBC, MG #### [facility] [address] NRBC% 0.2 /100{WBC} Normal 0-0.5 [facility] Comment on above: Performed By: #### F ER, [id number], FE and TIBC, MG #### [facility] [address] Platelet mean volume (Bld) [Entitic vol] 8.7 fL Normal 6.6-10.1 [facility] Comment on above: Performed By: #### F ER, [id number], FE and TIBC, MG #### [facility] [address] Platelets (Bld) [#/Vol] 203 10*3/uL Normal 150-450 [facility] Comment on above: Performed By: #### F ER, [id number], FE and TIBC, MG #### [facility] [address] RBC (Bld) [#/Vol] 5.47 10*6/uL Normal 3.90-5.60 [facility] Comment on above: Performed By: #### F ER, [id number], FE and TIBC, MG #### [facility] [address] WBC (Bld) [#/Vol] 14.3 10*3/uL High 4.1-10.5 [facility] Comment on above: Performed By: #### F ER, [id number], FE and TIBC, MG #### [facility] [address] Creatinine [Mass/volume] in Serum or PlasmaOrdered By: John Garcia on 11-02-2022 Creatinine [Mass/Vol] 1.10 mg/dL 0.70-1.30 [facility] Eosinophils Auto (Bld) [#/Vo l]Ordered By: John Garcia on 11-02-2022 Eosinophils (Bld) [#/Vol] 0.0 10*3/uL 0.0-0.45 [facility] Eosinophils/100 WBC Auto (Bl d)Ordered By: [facility] on 11-02-2022 Eosinophils/100 WBC (Bld) 0.1 % . [facility] Erythrocyte distribution wid th Auto (RBC) [Ratio]Ordered By: [facility] on 11-02-2022 Erythrocyte distribution width (RBC) [Ratio] 14.5 % 12.0-14.8 [facility] Glucose [Mass/volume] in Ser um or PlasmaOrdered By: [facility] on 11-02-2022 Glucose [Mass/Vol] 114 mg/dL 70-100 [facility] Comment on above: ADA recommended refe rence rangeRandom Glucose Reference Range is dependent on time and content of last meal. Glucose of more than 200 mg/dL in a nonstressed, ambulatory subject supports the diagnosis of Diabetes Mellitus. Hematocrit Auto (Bld) [Volum e fraction]Ordered By: [facility] on 11-02-2022 Hematocrit (Bld) [Volume fraction] 47.6 % 38.8-50.0 [facility] Hemoglobin [Mass/volume] in BloodOrdered By: [facility] on 11-02-2022 Hemoglobin (Bld) [Mass/Vol] 16.8 g/dL 13.0-17.0 [facility] Leukocytes [#/volume] correc khadra for nucleated erythrocytes in Blood by Automated counOrdered By: [facility] on 11-02-2022 WBC corrected for nucl RBC Auto (Bld) [#/Vol] 14.3 10*3/uL 4.1-10.5 [facility] Lymphocytes Auto (Bld) [#/Vo l]Ordered By: [facility] on 11-02-2022 Lymphocytes (Bld) [#/Vol] 2.6 10*3/uL 1.00-4.8 [facility] Lymphocytes/100 WBC Auto (Bl d)Ordered By: [facility] on 11-02-2022 Lymphocytes/100 WBC (Bld) 18.5 % . [facility] MCH Auto (RBC) [Entitic mass ]Ordered By: [facility] on 11-02-2022 MCH (RBC) [Entitic mass] 30.8 pg 27.5-35.2 [facility] MCHC Auto (RBC) [Mass/Vol]Or dered By: John Garcia on 11-02-2022 MCHC (RBC) [Mass/Vol] 35.4 g/dL 32.5-35.6 [facility] MCV Auto (RBC) [Entitic vol] Ordered By: John [place] on 11-02-2022 MCV (RBC) [Entitic vol] 86.9 fL 83.5-101 [facility] Monocytes Auto (Bld) [#/Vol] Ordered By: John [place] on 11-02-2022 Monocytes (Bld) [#/Vol] 1.3 10*3/uL 0.0-0.8 [facility] Monocytes/100 WBC Auto (Bld) Ordered By: [facility] on 11-02-2022 Monocytes/100 WBC (Bld) 9.2 % . [facility] Neutrophils Auto (Bld) [#/Vo l]Ordered By: John [place] on 11-02-2022 Neutrophils (Bld) [#/Vol] 10.2 10*3/uL 1.8-7.7 [facility] Neutrophils/100 WBC Auto (Bl d)Ordered By: [facility] on 11-02-2022 Neutrophils/100 WBC (Bld) 71.4 % . [facility] No Panel InformationOrdered By: John [place] on 11-02-2022 Estimated GFR (CKD-EPI) > 60.0 mL/Min [facility] Pharmacy Creatinine Clearance (Chem 67.50 [facility] Nucleated erythrocytes [Pres ence] in Blood by Automated countOrdered By: John [place] on 11-02-2022 Nucleated RBC Auto Ql (Bld) 0.2 /100{WBC} 0-0.5 [facility] Platelet mean volume Auto (B ld) [Entitic vol]Ordered By: John [place] on 11-02-2022 Platelet mean volume (Bld) [Entitic vol] 8.7 fL 6.6-10.1 [facility] Platelets Auto (Bld) [#/Vol] Ordered By: John RamirezGarcia on 11-02-2022 Platelets (Bld) [#/Vol] 203 10*3/uL 150-450 [facility] Potassium [Moles/volume] in Serum or PlasmaOrdered By: John Garcia on 11-02-2022 Potassium [Moles/Vol] 3.2 mmol/L 3.5-5.1 [facility] RBC Auto (Bld) [#/Vol]Ordere d By: John Garcia on 11-02-2022 RBC (Bld) [#/Vol] 5.47 10*6/uL 3.90-5.60 [facility] Serum or plasma anion gap de terminationOrdered By: John RamirezGarcia on 11-02-2022 Anion gap [Moles/Vol] 13.3 mmol/L 6.0-15.0 [facility] Sodium [Moles/volume] in Ser um or PlasmaOrdered By: John Garcia on 11-02-2022 Sodium [Moles/Vol] 138 mmol/L 136-145 [facility] Urea nitrogen [Mass/volume] in Serum or PlasmaOrdered By: John Garcia on 11-02-2022 Urea nitrogen [Mass/Vol] 20 mg/dL 7-25 [facility] WBC Auto (Bld) [#/Vol]Ordere d By: John Garcia on 11-02-2022 WBC (Bld) [#/Vol] 14.3 10*3/uL 4.1-10.5 [facility] Basic Metabolic Panelon Anion gap [Moles/Vol] 13.6 mmol/L Normal 6.0-15.0 [facility] Comment on above: Performed By: #### B MP, CBC #### [facility] [address] [place] [address] [place] Calcium [Mass/Vol] 9.5 mg/dL Normal 8.6-10.3 [facility] Comment on above: Performed By: #### B MP, CBC #### [facility] [address] [place] [id number] [place] Chloride [Moles/Vol] 105 mmol/L Normal 98-107 [facility] Comment on above: Performed By: #### B MP, CBC #### [facility] [address] CO2 [Moles/Vol] 25.6 mmol/L Normal 21.0-31.0 [facility] Comment on above: Performed By: #### B MP, CBC #### [facility] [address] Creatinine [Mass/Vol] 1.03 mg/dL Normal 0.70-1.30 [facility] Comment on above: Performed By: #### B MP, CBC #### [facility] [address] [place] [address] [place] Creatinine Clr Calc Pharmacy 72.09 [facility] Comment on above: Result Comment: PERF ORMED BY: [place] [address] PATHOLOGIST MEDICAL SONOGRAPHER TERESA PATTERSON M.D. Performed By: #### B MP, CBC #### [address] GFR/1.73 sq M.predicted MDRD (S/P/Bld) [Vol rate/Area] mL/min/{1.73_m2} [facility] Comment on above: Performed By: #### B MP, CBC #### [facility] [address] Glucose [Mass/Vol] 108 mg/dL High 70-100 [facility] Comment on above: Result Comment: [place] Glucose Reference Range is dependent on time and content of last meal. Glucose of more than 200 mg/dL in a nonstressed, ambulatory subject supports the diagnosis of Diabetes Mellitus. ADA recommended reference range Performed By: #### B MP, CBC #### [facility] [address] [place] [address] [place] Potassium [Moles/Vol] 3.2 mmol/L Low 3.5-5.1 [facility] Comment on above: Performed By: #### B MP, CBC #### [facility] [address] [place] [address] [place] Sodium [Moles/Vol] 141 mmol/L Normal 136-145 [facility] Comment on above: Performed By: #### B MP, CBC #### [facility] [address] Urea nitrogen [Mass/Vol] 17 mg/dL Normal 7-25 [facility] Comment on above: Performed By: #### B MP, CBC #### [address] Complete Blood Count Auto Di ffon 11-01-2022 Basophils (Bld) [#/Vol] 0.1 10*3/uL Normal 0.0-0.2 [facility] Comment on above: Result Comment: PERF ORMED BY: [place] [address] PATHOLOGIST MEDICAL SONOGRAPHER TERESA PATTERSON M.D. Performed By: #### B MP, CBC #### [address] Basophils/100 WBC (Bld) 0.7 % Normal . [facility] Comment on above: Performed By: #### B MP, CBC #### [address] Eosinophils (Bld) [#/Vol] 0.0 10*3/uL Normal 0.0-0.45 [facility] Comment on above: Performed By: #### B MP, CBC #### [address] Eosinophils/100 WBC (Bld) 0.3 % Normal . [facility] Comment on above: Performed By: #### B MP, CBC #### [address] Erythrocyte distribution width (RBC) [Ratio] 14.0 % Normal 12.0-14.8 [facility] Comment on above: Performed By: #### B MP, CBC #### [address] Hematocrit (Bld) [Volume fraction] 48.2 % Normal 38.8-50.0 [facility] Comment on above: Performed By: #### B MP, CBC #### [facility] [address] Hemoglobin (Bld) [Mass/Vol] 16.8 g/dL Normal 13.0-17.0 [facility] Comment on above: Performed By: #### B MP, CBC #### [facility] [address] Lymphocytes (Bld) [#/Vol] 3.1 10*3/uL Normal 1.00-4.8 [facility] Comment on above: Performed By: #### B MP, CBC #### [facility] [address] Lymphocytes/100 WBC (Bld) 23.0 % Normal . [facility] Comment on above: Performed By: #### B MP, CBC #### [address] MCH (RBC) [Entitic mass] 30.6 pg Normal 27.5-35.2 [facility] Comment on above: Performed By: #### B MP, CBC #### [address] MCV (RBC) [Entitic vol] 87.8 fL Normal 83.5-101 [facility] Comment on above: Performed By: #### B MP, CBC #### [address] Mean Corpuscular HGB Conc 34.8 g/dL Normal 32.5-35.6 [facility] Comment on above: Performed By: #### B MP, CBC #### [facility] [address] Monocytes (Bld) [#/Vol] 1.0 10*3/uL High 0.0-0.8 [facility] Comment on above: Performed By: #### B MP, CBC #### [address] Monocytes/100 WBC (Bld) 7.7 % Normal . [facility] Comment on above: Performed By: #### B MP, CBC #### [facility] [address] [place] [address] [place] Neutrophils (Bld) [#/Vol] 9.2 10*3/uL High 1.8-7.7 [facility] Comment on above: Performed By: #### B MP, CBC #### [facility] [address] [place] [phone] [place] Neutrophils/100 WBC (Bld) 68.3 % Normal . [facility] Comment on above: Performed By: #### B MP, CBC #### [facility] [address] NRBC% 0.6 /100{WBC} High 0-0.5 [facility] Comment on above: Performed By: #### B MP, CBC #### [facility] [address] Platelet mean volume (Bld) [Entitic vol] 9.0 fL Normal 6.6-10.1 [facility] Comment on above: Performed By: #### B MP, CBC #### [facility] [address] [place] [address] [place] Platelets (Bld) [#/Vol] 206 10*3/uL Normal 150-450 [facility] Comment on above: Performed By: #### B MP, CBC #### [facility] [address] RBC (Bld) [#/Vol] 5.48 10*6/uL Normal 3.90-5.60 [facility] Comment on above: Performed By: #### B MP, CBC #### [facility] [address] [place] [address] [place] WBC (Bld) [#/Vol] 13.5 10*3/uL High 4.1-10.5 [facility] Comment on above: Performed By: #### B MP, CBC #### [facility] [address] [place] [id number] [facility] A1C with Estimated Average G renon 10-31-2022 Glucose [Mass/Vol] 128 mg/dL Normal [facility] Comment on above: Result Comment: PERF ORMED BY: [place] [address] PATHOLOGIST MEDICAL SONOGRAPHER TERESA PATTERSON M.D. Performed By: #### F ER, [id number], FE and TIBC, MG #### [facility] [address] HbA1c (Bld) [Mass fraction] 6.1 % High 4.3-5.6 [facility] Comment on above: Result Comment: Incr eased risk for diabetes: 5.7 - 6.4 diabetes: >6.4 glycemic control for adults with diabetes: <7.0 Performed By: #### F ER, [id number], FE and TIBC, MG #### [facility] [address] Basic Metabolic Panelon 09-0 Anion gap [Moles/Vol] 12.4 mmol/L Normal 6.0-15.0 [facility] Comment on above: Performed By: #### B MP, CBC #### [facility] [address] [place] [address] [place] Calcium [Mass/Vol] 9.3 mg/dL Normal 8.6-10.3 [facility] Comment on above: Performed By: #### B MP, CBC #### [facility] [address] [place] [address] [place] Chloride [Moles/Vol] 105 mmol/L Normal 98-107 [facility] Comment on above: Performed By: #### B MP, CBC #### [facility] [address] [place] [address] [place] CO2 [Moles/Vol] 23.8 mmol/L Normal 21.0-31.0 [facility] Comment on above: Performed By: #### B MP, CBC #### [facility] [address] [place] [address] [place] Creatinine [Mass/Vol] 0.88 mg/dL Normal 0.70-1.30 [facility] Comment on above: Performed By: #### B MP, CBC #### [facility] [address] [place] [address] [place] Creatinine Clr Calc Pharmacy 84.38 [facility] Comment on above: Result Comment: PERF ORMED BY: [place] [address] PATHOLOGIST MEDICAL SONOGRAPHER TERESA PATTERSON M.D. Performed By: #### B MP, CBC #### [facility] [address] [place] [address] [place] GFR/1.73 sq M.predicted MDRD (S/P/Bld) [Vol rate/Area] mL/min/{1.73_m2} [facility] Comment on above: Performed By: #### B MP, CBC #### [address] Glucose [Mass/Vol] 110 mg/dL High 70-100 [facility] Comment on above: Result Comment: [facility] Glucose Reference Range is dependent on time and content of last meal. Glucose of more than 200 mg/dL in a nonstressed, ambulatory subject supports the diagnosis of Diabetes Mellitus. ADA recommended reference range Performed By: #### B MP, CBC #### [place] [address] [place] Potassium [Moles/Vol] 3.2 mmol/L Low 3.5-5.1 [facility] Comment on above: Performed By: #### B MP, CBC #### [place] [address] [place] Sodium [Moles/Vol] 138 mmol/L Normal 136-145 [facility] Comment on above: Performed By: #### B MP, CBC #### [facility] [address] [place] [address] [place] Urea nitrogen [Mass/Vol] 12 mg/dL Normal 7-25 [facility] Comment on above: Performed By: #### B MP, CBC #### [facility] [address] [place] [address] [place] [address] angio neckon 10-31-2022 CT angio neck [facility] [place] [address] [place] [address] CT Scan Report Signed Patient: Viraj Doherty MR#: [id number] : 1955 Acct:[id number] Age/Sex: 67 / M ADM Date: 10/30/22 Loc: Room: [address] [place] [address] Type: ADM IN Attending Dr: Davey Harding MD Copies to: MD Nolberto Woodward MD Ordering Provider: Nolberto Hernandez MD Date of Service: 10/30/22 CT/CT angio head: [facility] ([id number]) CT/CT angio neck: [facility] CTA Head and Neck TECHNIQUE: Axial [...] Delio Tran M.D.10/31/2022 7:42 AM Dictation Location: [place] [address] Transcribed By: [facility] 10/31/22 0742 Dictated By: Delio Tran DO 10/31/22 0736 Signed By: 10/31/22 0742 Normal [facility] CT head stroke alert wo cono n 10-31-2022 CT head stroke alert wo con [facility] Main [place] [address] [place] [address] CT Scan Report Signed Patient: Viraj Doherty MR#: [id number] : 1955 Acct:[id number] Age/Sex: 67 / M ADM Date: 10/30/22 Loc: Room: [address] [place] [address] Type: ADM IN Attending Dr: Davey Harding [...] chronic small vessel ischemic changes. [facility] preliminary report completed 10/30/2022 at 7:34 PM Impression dictated by: Delio Tran M.D.10/31/2022 7:35 AM Dictation Location: [place] [address] Transcribed By: [facility] 10/31/22 0735 Dictated By: Delio Tran DO 10/31/22 0733 Signed By: 10/31/22 0735 Normal [facility] Cholesterol [Mass/volume] in Serum or PlasmaOrdered By: Dunia Bear on 10-31-2022 Cholesterol [Mass/Vol] 244 mg/dL 140-200 [facility] Comment on above: Chol less than 200 m g/dl low riskChol 201-239 mg/dl borderline riskChol 240 mg/dl and greater high risk Cholesterol in LDL Calc [Mas s/Vol]Ordered By: Dunia Bear on 10-31-2022 Cholesterol in LDL [Mass/Vol] 179 mg/dL 0-100 [facility] Comment on above: LDL ATP III CLASSIFI CATIONLDL less than 100 mg/dL OptimalLDL 100-129 mg/dL Near or above optimalLDL 130-159 mg/dL Borderline highLDL 160-189 mg/dL HighLDL greater than 189 mg/dL Very high Cholesterol in VLDL Calc [Ma ss/Vol]Ordered By: Dunia Bear on 10-31-2022 Cholesterol in VLDL [Mass/Vol] 25 mg/dL [facility] Complete Blood Count Auto Di ffon 10-31-2022 Basophils (Bld) [#/Vol] 0.1 10*3/uL Normal 0.0-0.2 [facility] Comment on above: Result Comment: PERF ORMED BY: [address] [place] [address] PATHOLOGIST MEDICAL SONOGRAPHER TERESA PATTERSON M.D. Performed By: #### B MP, CBC #### [facility] [address] [place] [address] [place] Basophils/100 WBC (Bld) 1.0 % Normal . [facility] Comment on above: Performed By: #### B MP, CBC #### [facility] [address] [place] [address] [place] Eosinophils (Bld) [#/Vol] 0.1 10*3/uL Normal 0.0-0.45 [facility] Comment on above: Performed By: #### B MP, CBC #### [facility] [address] [place] [address] [place] Eosinophils/100 WBC (Bld) 0.7 % Normal . [facility] Comment on above: Performed By: #### B MP, CBC #### [facility] [address] Erythrocyte distribution width (RBC) [Ratio] 14.2 % Normal 12.0-14.8 [facility] Comment on above: Performed By: #### B MP, CBC #### [facility] [address] Hematocrit (Bld) [Volume fraction] 46.5 % Normal 38.8-50.0 [facility] Comment on above: Performed By: #### B MP, CBC #### [facility] [address] Hemoglobin (Bld) [Mass/Vol] 16.3 g/dL Normal 13.0-17.0 [facility] Comment on above: Performed By: #### B MP, CBC #### [address] Lymphocytes (Bld) [#/Vol] 2.6 10*3/uL Normal 1.00-4.8 [facility] Comment on above: Performed By: #### B MP, CBC #### [address] Lymphocytes/100 WBC (Bld) 25.2 % Normal . [facility] Comment on above: Performed By: #### B MP, CBC #### [address] MCH (RBC) [Entitic mass] 30.7 pg Normal 27.5-35.2 [facility] Comment on above: Performed By: #### B MP, CBC #### [address] MCV (RBC) [Entitic vol] 87.6 fL Normal 83.5-101 [facility] Comment on above: Performed By: #### B MP, CBC #### [address] Mean Corpuscular HGB Conc 35.0 g/dL Normal 32.5-35.6 [facility] Comment on above: Performed By: #### B MP, CBC #### [facility] [address] [place] [address] [place] Monocytes (Bld) [#/Vol] 0.9 10*3/uL High 0.0-0.8 [facility] Comment on above: Performed By: #### B MP, CBC #### [facility] [address] [place] [address] [place] Monocytes/100 WBC (Bld) 9.1 % Normal . [facility] Comment on above: Performed By: #### B MP, CBC #### [facility] [address] [place] [address] [place] Neutrophils (Bld) [#/Vol] 6.5 10*3/uL Normal 1.8-7.7 [facility] Comment on above: Performed By: #### B MP, CBC #### [facility] [address] Neutrophils/100 WBC (Bld) 64.0 % Normal . [facility] Comment on above: Performed By: #### B MP, CBC #### [facility] [address] [place] [address] [place] NRBC% 0.6 /100{WBC} High 0-0.5 [facility] Comment on above: Performed By: #### B MP, CBC #### [facility] [address] Platelet mean volume (Bld) [Entitic vol] 8.7 fL Normal 6.6-10.1 [facility] Comment on above: Performed By: #### B MP, CBC #### [facility] [address] [place] [address] [place] Platelets (Bld) [#/Vol] 192 10*3/uL Normal 150-450 [facility] Comment on above: Performed By: #### B MP, CBC #### [facility] [address] [place] [address] [place] RBC (Bld) [#/Vol] 5.31 10*6/uL Normal 3.90-5.60 [facility] Comment on above: Performed By: #### B MP, CBC #### [facility] [address] [place] [address] [place] WBC (Bld) [#/Vol] 10.2 10*3/uL Normal 4.1-10.5 [facility] Comment on above: Performed By: #### B MP, CBC #### [facility] [address] [place] [address] [place] Dipstick and Microscopicon 0 10-31-2022 Appearance (U) Clear Normal Clear [facility] Comment on above: Order Comment: Name Collection Type:: Clean-Voided Midstream Performed By: #### B MP, CBC #### [facility] [address] [place] [address] [place] Bacteria,Urine None Seen Normal None Seen [facility] Comment on above: Order Comment: Name Collection Type:: Clean-Voided Midstream Result Comment: PERF ORMED BY: [place] [address] PATHOLOGIST MEDICAL SONOGRAPHER TERESA PATTERSON M.D. Performed By: #### B MP, CBC #### [facility] [address] [place] [address] [place] Bilirubin,Urine Negative Normal Negative [facility] Comment on above: Order Comment: Name Collection Type:: Clean-Voided Midstream Performed By: #### B MP, CBC #### [facility] [address] [place] [address] [place] Color (U) Yellow Normal Yellow [facility] Comment on above: Order Comment: Name Collection Type:: Clean-Voided Midstream Performed By: #### B MP, CBC #### [facility] [address] [place] [address] [place] Glucose Ql (U) Normal Normal Normal [facility] Comment on above: Order Comment: Name Collection Type:: Clean-Voided Midstream Performed By: #### B MP, CBC #### [facility] [address] [place] [address] [place] Ketones Ql (U) Negative Normal Negative [facility] Comment on above: Order Comment: Name Collection Type:: Clean-Voided Midstream Performed By: #### B MP, CBC #### [facility] [address] Leukocyte esterase Test strip Ql (U) Negative Normal Negative [facility] Comment on above: Order Comment: Name Collection Type:: Clean-Voided Midstream Performed By: #### B MP, CBC #### [facility] [address] [place] [address] [place] Nitrite,Urine Negative Normal Negative [facility] Comment on above: Order Comment: Name Collection Type:: Clean-Voided Midstream Performed By: #### B MP, CBC #### [facility] [address] Occult Blood,Urine 1+ High Negative [facility] Comment on above: Order Comment: Name Collection Type:: Clean-Voided Midstream Result Comment: PERF ORMED BY: [place] [address] PATHOLOGIST MEDICAL SONOGRAPHER TERESA PATTERSON M.D. Performed By: #### B MP, CBC #### [facility] [address] [place] [address] [place] pH (U) 6.0 [pH] Normal 5.0-9.0 [facility] Comment on above: Order Comment: Name Collection Type:: Clean-Voided Midstream Performed By: #### B MP, CBC #### [facility] [address] [place] [address] [place] Protein,Urine Trace High Negative [facility] Comment on above: Order Comment: Name Collection Type:: Clean-Voided Midstream Performed By: #### B MP, CBC #### [facility] [address] [place] [address] [place] RBC,Urine 3-4 Normal 0-4 [facility] Comment on above: Order Comment: Name Collection Type:: Clean-Voided Midstream Performed By: #### B MP, CBC #### [facility] [address] [place] [address] [place] Specificy [place],Urine > 1.050 High 1.001-1.030 [facility] Comment on above: Order Comment: Name Collection Type:: Clean-Voided Midstream Performed By: #### B MP, CBC #### [facility] [address] Squamous Epithelial Cell,Urine Rare Normal 0-2 [facility] Comment on above: Order Comment: Name Collection Type:: Clean-Voided Midstream Performed By: #### B MP, CBC #### [facility] [address] Urobilinogen,Urine Normal Normal Normal [facility] Comment on above: Order Comment: Name Collection Type:: Clean-Voided Midstream Performed By: #### B MP, CBC #### [facility] [address] WBC LM.HPF (Urine sed) [#/Area] 0 /[HPF] Normal 0-4 [facility] Comment on above: Order Comment: Name Collection Type:: Clean-Voided Midstream Performed By: #### B MP, CBC #### [address] ECH echo transthoracicon ECH echo transthoracic [facility] [place] [address] [place] [address] Echocardiogram Signed Patient: Viraj Doherty MR#: [id number] : 1955 Acct:[id number] Age/Sex: 67 / M ADM Date: 10/30/22 Loc: Room: [address] [place] [address] Type: ADM IN Attending Dr: Davey Harding MD Ordering Provider: John Garcia DO Date of Service: 10/30/2206/18/2117 ECH/ECH echo transthoracic: Neuro Symptoms/Deficit Copies to: DO [...] By: Tatiana Miranda MD 10/31/22 1502 Normal [facility] Glucose mean value [Mass/vol ume] in Blood Estimated from glycated hemoglobinOrdered By: Dunia Bear on 10-31-2022 Average glucose Estimated from glycated hemoglobin (Bld) [Mass/Vol] 128 mg/dL [facility] Hemoglobin A1c percentageOrd ered By: Dunia Bear on 10-31-2022 HbA1c (Bld) [Mass fraction] 6.1 % 4.3-5.6 [facility] Comment on above: Increased risk for d iabetes: 5.7 - 6.4diabetes: >6.4glycemic control for adults with diabetes: <7.0 Lipid Panelon 10-31-2022 Cholesterol [Mass/Vol] 244 mg/dL High 140-200 [facility] Comment on above: Order Comment: Commsrini nt add Comment add Result Comment: Chol less than 200 mg/dl low risk Chol 201-239 mg/dl borderline risk Chol 240 mg/dl and greater high risk Performed By: #### F ER, [id number], FE and TIBC, MG #### [facility] [address] [place] [id number] [facility] Cholesterol in HDL [Mass/Vol] 39 mg/dL Normal 23-92 [facility] Comment on above: Order Comment: Comme nt add Comment add Result Comment: HDL CHOL ATP-III CLASSIFICATION Cardiovascular Risk HDL > or equal to 60 mg/dL LOW HDL < 40 mg/dL HIGH Performed By: #### F ER, [id number], FE and TIBC, MG #### [facility] [address] [place] [id number] [facility] Cholesterol.total/Chol esterol in HDL [Mass ratio] 6.3 {ratio} Normal <5.0 [facility] Comment on above: Order Comment: Diaz escobar add Comment add Performed By: #### F ER, [id number], FE and TIBC, MG #### [facility] [address] [place] [id number] [facility] LDL Cholesterol,Calculated 179 mg/dL High 0-100 [facility] Comment on above: Order Comment: Comme nt add Comment add Result Comment: LDL ATP III CLASSIFICATION LDL less than 100 mg/dL Optimal LDL 100-129 mg/dL Near or above optimal LDL 130-159 mg/dL Borderline high LDL 160-189 mg/dL High LDL greater than 189 mg/dL Very high Performed By: #### F ER, [id number], FE and TIBC, MG #### [facility] [address] [place] [address] [place] Triglyceride w/Reflex 129 mg/dL Normal 0-149 [facility] Comment on above: Order Comment: Comme nt add Comment add Result Comment: TRIG ATP III CLASSIFICATION TRIG less than 150 mg/dL Normal TRIG 150-199 mg/dL Borderline high TRIG 200-500 mg/dL High TRIG greater than 500 mg/dL Very high Standard traceable to the Center for Disease Conrtrol and Prevention (CDC) test method. Performed By: #### F ER, [id number], FE and TIBC, MG #### [facility] [address] VLDL CHOLESTEROL 25 mg/dL Normal [facility] Comment on above: Order Comment: Comme nt add Comment add Performed By: #### F ER, [id number], FE and TIBC, MG #### [facility] [address] MR head/brain wo conon 10-31 MR head/brain wo con [facility] [place] [address] [place] [address] MRI Report Signed Patient: Viraj Doherty MR#: [id number] : 1955 Acct:[id number] Age/Sex: 67 / M ADM Date: 10/30/22 Loc: Room: [address] [place] [address] Type: ADM IN Attending Dr: Davey Harding [...] Jha Jr., D.O.10/31/2022 12:51 PM Dictation Location: [place] [address] Transcribed By: [facility] 10/31/22 1251 Dictated By: Jose Martin Jha Jr, DO 10/31/22 1247 Signed By: 10/31/22 1251 Normal [facility] Serum or plasma high density lipoprotein (HDL) cholesterol measurementOrdered By: Dunia Bear on 10-31-2022 Cholesterol in HDL [Mass/Vol] 39 mg/dL [facility] Comment on above: HDL CHOL ATP-III CLA SSIFICATION Cardiovascular RiskHDL > or equal to 60 mg/dL LOWHDL < 40 mg/dL HIGH Serum or plasma total choles terol/high density lipoprotein (HDL) cholesterol mass ratOrdered By: Dunia Bear on 10-31-2022 Cholesterol.total/Chol esterol in HDL [Mass ratio] 6.3 {ratio} <5.0 [facility] Thyroid Stimulating Hormoneo n 10-31-2022 TSH Qn 3.23 m[IU]/L Normal 0.45-5.33 [facility] Comment on above: Order Comment: Comme nt add Comment add Result Comment: PERF ORMED BY: [place] [address] PATHOLOGIST MEDICAL SONOGRAPHER TERESA PATTERSON M.D. Performed By: #### F ER, [id number], FE and TIBC, MG #### [facility] [address] [place] [address] Thyrotropin [Units/volume] i n Serum or PlasmaOrdered By: Dunia Bear on 10-31-2022 TSH Qn 3.23 m[IU]/L 0.45-5.33 [facility] Triglyceride [Mass/volume] i n Serum or PlasmaOrdered By: Dunia Bear on 10-31-2022 Triglyceride [Mass/Vol] 129 mg/dL 0-149 [facility] Comment on above: TRIG ATP III CLASSIF ICATIONTRIG less than 150 mg/dL NormalTRIG 150-199 mg/dL Borderline highTRIG 200-500 mg/dL High TRIG greater than 500 mg/dL Very highStandard traceable to the Center for Disease Conrtrol and Prevention (CDC) test method. XR chest 1V portableon 10-31 XR chest 1V portable [facility] [place] [address] [place] [address] XRay Report Signed Patient: Viraj Doherty MR#: [id number] : 1955 Acct:[id number] Age/Sex: 67 / M ADM Date: 10/30/22 Loc: Room: [address] [place] [address] Type: ADM IN Attending Dr: Davey Harding [...] Delio Tran M.D.10/31/2022 7:33 AM Dictation Location: [place] [address] Transcribed By: [facility] 10/31/22 0733 Dictated By: Delio Tran DO 10/31/22 0732 Signed By: 10/31/22 0733 Normal [facility] Activated partial thrombopla stin time (aPTT) in platelet poor plasma by coagulation aOrdered By: Nolberto Hernandez on 10-30-2022 aPTT Coag (PPP) [Time] 29.4 s 25.1-36.5 [facility] Automated epithelial cells c ount in urine sediment (number/area)Ordered By: Nolberto Hernandez on 10-30-2022 Epithelial cells Auto (Urine sed) [#/Area] Rare [HPF] 0-2 [facility] Automated erythrocytes count in urine sediment (number/area)Ordered By: Nolberto Hernandez on 10-30-2022 RBC Auto (Urine sed) [#/Area] 3-4 [HPF] 0-4 [facility] Automated leukocytes count i n urine sediment (number/area)Ordered By: Nolberto Hernandez on 10-30-2022 WBC Auto (Urine sed) [#/Area] 0-1 [HPF] 0-4 [facility] Basic Metabolic Panelon Anion gap [Moles/Vol] 11.6 mmol/L Normal 6.0-15.0 [facility] Comment on above: Performed By: #### F ER, [id number], FE and TIBC, MG #### [facility] [address] Calcium [Mass/Vol] 9.1 mg/dL Normal 8.6-10.3 [facility] Comment on above: Performed By: #### F ER, [id number], FE and TIBC, MG #### [facility] [address] Chloride [Moles/Vol] 104 mmol/L Normal 98-107 [facility] Comment on above: Performed By: #### F ER, [id number], FE and TIBC, MG #### [facility] [address] CO2 [Moles/Vol] 24.7 mmol/L Normal 21.0-31.0 [facility] Comment on above: Performed By: #### F ER, [id number], FE and TIBC, MG #### [facility] [address] [place] [address] [place] Creatinine [Mass/Vol] 0.98 mg/dL Normal 0.70-1.30 [facility] Comment on above: Performed By: #### F ER, [id number], FE and TIBC, MG #### [facility] [address] [place] [address] [place] Creatinine Clr Calc Pharmacy 71.14 Normal [facility] Comment on above: Result Comment: PERF ORMED BY: [place] [address] PATHOLOGIST MEDICAL SONOGRAPHER TERESA PATTERSON M.D. Performed By: #### F ER, [id number], FE and TIBC, MG #### [address] GFR/1.73 sq M.predicted MDRD (S/P/Bld) [Vol rate/Area] mL/min/{1.73_m2} Normal [facility] Comment on above: Performed By: #### F ER, [id number], FE and TIBC, MG #### [address] Glucose [Mass/Vol] 107 mg/dL High 70-100 [facility] Comment on above: Result Comment: [facility] Glucose Reference Range is dependent on time and content of last meal. Glucose of more than 200 mg/dL in a nonstressed, ambulatory subject supports the diagnosis of Diabetes Mellitus. ADA recommended reference range Performed By: #### F ER, [id number], FE and TIBC, MG #### [facility] [address] [place] [address] Potassium [Moles/Vol] 3.3 mmol/L Low 3.5-5.1 [facility] Comment on above: Performed By: #### F ER, [id number], FE and TIBC, MG #### [facility] [address] [place] [address] Sodium [Moles/Vol] 137 mmol/L Normal 136-145 [facility] Comment on above: Performed By: #### F ER, [id number], FE and TIBC, MG #### [facility] [address] [place] [address] Urea nitrogen [Mass/Vol] 12 mg/dL Normal 7-25 [facility] Comment on above: Performed By: #### F ER, [id number], FE and TIBC, MG #### [facility] [address] [place] [address] [place] Basophils Auto (Bld) [#/Vol] Ordered By: Nolberto Hernandez on 10-30-2022 Basophils (Bld) [#/Vol] 0.1 10*3/uL 0.0-0.2 [facility] Basophils/100 WBC Auto (Bld) Ordered By: Nolberto Hernandez on 10-30-2022 Basophils/100 WBC (Bld) 0.8 % . [facility] Bilirubin Test strip Ql (U)O rdered By: Nolberto Hernandez on 10-30-2022 Bilirubin Ql (U) Negative Negative [facility] Calcium [Mass/volume] in Ser um or PlasmaOrdered By: Nolberto Hernandez on 10-30-2022 Calcium [Mass/Vol] 9.1 mg/dL 8.6-10.3 [facility] Carbon dioxide, total [Moles /volume] in Serum or PlasmaOrdered By: Nolberto Hernandez on 10-30-2022 CO2 [Moles/Vol] 24.7 mmol/L 21.0-31.0 [facility] Chloride [Moles/volume] in S shani or PlasmaOrdered By: Nolberto Hernandez on 10-30-2022 Chloride [Moles/Vol] 104 mmol/L 98-107 [facility] Color Auto (U)Ordered By: Karen Hernandez on 10-30-2022 Color (U) Yellow Yellow [facility] Complete Blood Count Auto Di ffon 10-30-2022 Basophils (Bld) [#/Vol] 0.1 10*3/uL Normal 0.0-0.2 [facility] Comment on above: Result Comment: PERF ORMED BY: [facility] [address] [facility] [place] [address] PATHOLOGIST MEDICAL SONOGRAPHER TERESA PATTERSON M.D. Performed By: #### F ER, [id number], FE and TIBC, MG #### [facility] [address] Basophils/100 WBC (Bld) 0.8 % Normal . [facility] Comment on above: Performed By: #### F ER, [id number], FE and TIBC, MG #### [facility] [address] [place] [address] [place] Eosinophils (Bld) [#/Vol] 0.1 10*3/uL Normal 0.0-0.45 [facility] Comment on above: Performed By: #### F ER, [id number], FE and TIBC, MG #### [address] Eosinophils/100 WBC (Bld) 1.0 % Normal . [facility] Comment on above: Performed By: #### F ER, [id number], FE and TIBC, MG #### [address] Erythrocyte distribution width (RBC) [Ratio] 14.1 % Normal 12.0-14.8 [facility] Comment on above: Performed By: #### F ER, [id number], FE and TIBC, MG #### [address] Hematocrit (Bld) [Volume fraction] 48.3 % Normal 38.8-50.0 [facility] Comment on above: Performed By: #### F ER, [id number], FE and TIBC, MG #### [address] Hemoglobin (Bld) [Mass/Vol] 16.7 g/dL Normal 13.0-17.0 [facility] Comment on above: Performed By: #### F ER, [id number], FE and TIBC, MG #### [address] Lymphocytes (Bld) [#/Vol] 3.0 10*3/uL Normal 1.00-4.8 [facility] Comment on above: Performed By: #### F ER, [id number], FE and TIBC, MG #### [address] Lymphocytes/100 WBC (Bld) 31.1 % Normal . [facility] Comment on above: Performed By: #### F ER, [id number], FE and TIBC, MG #### [address] MCH (RBC) [Entitic mass] 30.2 pg Normal 27.5-35.2 [facility] Comment on above: Performed By: #### F ER, [id number], FE and TIBC, MG #### [address] MCV (RBC) [Entitic vol] 87.2 fL Normal 83.5-101 [facility] Comment on above: Performed By: #### F ER, [id number], FE and TIBC, MG #### [address] Mean Corpuscular HGB Conc 34.7 g/dL Normal 32.5-35.6 [facility] Comment on above: Performed By: #### F ER, [id number], FE and TIBC, MG #### [address] Monocytes (Bld) [#/Vol] 0.9 10*3/uL High 0.0-0.8 [facility] Comment on above: Performed By: #### F ER, [id number], FE and TIBC, MG #### [address] Monocytes/100 WBC (Bld) 18.82 % Normal 0.00-20.00 [facility] Comment on above: Performed By: #### F ER, [id number], FE and TIBC, MG #### [address] Monocytes/100 WBC (Bld) 9.0 % Normal . [facility] Comment on above: Performed By: #### F ER, [id number], FE and TIBC, MG #### [address] Neutrophils (Bld) [#/Vol] 5.5 10*3/uL Normal 1.8-7.7 [facility] Comment on above: Performed By: #### F ER, [id number], FE and TIBC, MG #### [address] [place] [address] [place] Neutrophils/100 WBC (Bld) 58.1 % Normal . [facility] Comment on above: Performed By: #### F ER, [id number], FE and TIBC, MG #### [address] NRBC% 0.2 /100{WBC} Normal 0-0.5 [facility] Comment on above: Performed By: #### F ER, [id number], FE and TIBC, MG #### [address] Platelet mean volume (Bld) [Entitic vol] 8.8 fL Normal 6.6-10.1 [facility] Comment on above: Performed By: #### F ER, [id number], FE and TIBC, MG #### [address] Platelets (Bld) [#/Vol] 192 10*3/uL Normal 150-450 [facility] Comment on above: Performed By: #### F ER, [id number], FE and TIBC, MG #### [address] RBC (Bld) [#/Vol] 5.54 10*6/uL Normal 3.90-5.60 [facility] Comment on above: Performed By: #### F ER, [id number], FE and TIBC, MG #### [address] WBC (Bld) [#/Vol] 9.5 10*3/uL Normal 4.1-10.5 [facility] Comment on above: Performed By: #### F ER, [id number], FE and TIBC, MG #### [address] Creatine Kinaseon 10-30-2022 CK [Catalytic activity/Vol] 133 U/L Normal 30-223 [facility] Comment on above: Performed By: #### F ER, [id number], FE and TIBC, MG #### [facility] [address] [place] [id number] [facility] Creatine kinase [Enzymatic a ctivity/volume] in Serum or PlasmaOrdered By: Nolberto Hernandez on 10-30-2022 CK [Catalytic activity/Vol] 133 U/L 30-223 [facility] Creatinine [Mass/volume] in Serum or PlasmaOrdered By: Nolberto Hernandez on 10-30-2022 Creatinine [Mass/Vol] 0.98 mg/dL 0.70-1.30 [facility] ECG 12 lead ECGon 10-30-2022 ECG 12 lead ECG [facility] [place] [address] [place] [address] Electrocardiograph Report Signed Patient: Viraj Doherty MR#: [id number] : 1955 Acct:[id number] Age/Sex: 67 / M ADM Date: 10/30/22 Loc: Room: [address] [place] [address] Type: ADM IN Attending Dr: John Garcia [...] By Nolberto Hernandez MD 10/31/22 0108 Normal [facility] Eosinophils Auto (Bld) [#/Vo l]Ordered By: Nolberto Hernandez on 10-30-2022 Eosinophils (Bld) [#/Vol] 0.1 10*3/uL 0.0-0.45 [facility] Eosinophils/100 WBC Auto (Bl d)Ordered By: Nolberto Hernandez on 10-30-2022 Eosinophils/100 WBC (Bld) 1.0 % . [facility] Erythrocyte distribution wid th Auto (RBC) [Ratio]Ordered By: Nolberto Hernandez on 10-30-2022 Erythrocyte distribution width (RBC) [Ratio] 14.1 % 12.0-14.8 [facility] Glucose Glucometer (BldC) [M ass/Vol]Ordered By: Davey Harding on 10-30-2022 Glucose [Mass/Vol] 114 mg/dL [facility] Comment on above: Random Glucose Refer ence Range is dependent on time and content of last meal. Glucose of more than 200 mg/dL in a nonstressed, ambulatory subject supports the diagnosis of Diabetes Mellitus. Glucose Poct Glucometerson 0 10-30-2022 Glucose [Mass/Vol] 114 mg/dL Normal [facility] Comment on above: Result Comment: [place] om Glucose Reference Range is dependent on time and content of last meal. Glucose of more than 200 mg/dL in a nonstressed, ambulatory subject supports the diagnosis of Diabetes Mellitus. PERFORMED BY: [place] [address] PATHOLOGIST MEDICAL SONOGRAPHER TERESA PATTERSON M.D. Performed By: #### B MP, CBC #### [address] Glucose [Mass/volume] in Ser um or PlasmaOrdered By: Nolberto Hernandez on 10-30-2022 Glucose [Mass/Vol] 107 mg/dL 70-100 [facility] Comment on above: ADA recommended refe rence rangeRandom Glucose Reference Range is dependent on time and content of last meal. Glucose of more than 200 mg/dL in a nonstressed, ambulatory subject supports the diagnosis of Diabetes Mellitus. Hematocrit Auto (Bld) [Volum e fraction]Ordered By: Nolberto Hernandez on 10-30-2022 Hematocrit (Bld) [Volume fraction] 48.3 % 38.8-50.0 [facility] Hemoglobin [Mass/volume] in BloodOrdered By: Nolberto Hernandez on 10-30-2022 Hemoglobin (Bld) [Mass/Vol] 16.7 g/dL 13.0-17.0 [facility] INR in Platelet poor plasma by Coagulation assayOrdered By: Nolberto Hernandez on 10-30-2022 INR Coag (PPP) [Relative time] 1.1 {INR} [facility] Comment on above: INR Therapeutic Rang e [...] Ketones (U) [Mass/Vol] Negative Negative Fi [facility] - CoagulationOrde red By: Nolberto Hernandez on 10-30-2022 PT Coag (PPP) [Time] 12.6 s 9.0-12.9 [facility] Leukocytes [#/volume] correc khadra for nucleated erythrocytes in Blood by Automated counOrdered By: Nolberto Hernandez on 10-30-2022 WBC corrected for nucl RBC Auto (Bld) [#/Vol] 9.5 10*3/uL 4.1-10.5 [facility] Lymphocytes Auto (Bld) [#/Vo l]Ordered By: Nolberto Hernandez on 10-30-2022 Lymphocytes (Bld) [#/Vol] 3.0 10*3/uL 1.00-4.8 [facility] Lymphocytes/100 WBC Auto (Bl d)Ordered By: Nolberto Hernandez on 10-30-2022 Lymphocytes/100 WBC (Bld) 31.1 % . [facility] MCH Auto (RBC) [Entitic mass ]Ordered By: Nolberto Hernandez on 10-30-2022 MCH (RBC) [Entitic mass] 30.2 pg 27.5-35.2 [facility] MCHC Auto (RBC) [Mass/Vol]Or dered By: Nolberto Hernandez on 10-30-2022 MCHC (RBC) [Mass/Vol] 34.7 g/dL 32.5-35.6 [facility] MCV Auto (RBC) [Entitic vol] Ordered By: Nolberto Hernandez on 10-30-2022 MCV (RBC) [Entitic vol] 87.2 fL 83.5-101 [facility] Monocyte distribution width [Entitic volume] in Blood by AutomatedOrdered By: Nolberto Hernandez on 10-30-2022 Monocyte distribution width Auto (Bld) [Entitic vol] 18.82 % 0.00-20.00 [facility] Monocytes Auto (Bld) [#/Vol] Ordered By: Nolberto Hernandez on 10-30-2022 Monocytes (Bld) [#/Vol] 0.9 10*3/uL 0.0-0.8 [facility] Monocytes/100 WBC Auto (Bld) Ordered By: oNlberto Hernandez on 10-30-2022 Monocytes/100 WBC (Bld) 9.0 % . [facility] Neutrophils Auto (Bld) [#/Vo l]Ordered By: Nolberto Hernandez on 10-30-2022 Neutrophils (Bld) [#/Vol] 5.5 10*3/uL 1.8-7.7 [facility] Neutrophils/100 WBC Auto (Bl d)Ordered By: Nolberto Hernandez on 10-30-2022 Neutrophils/100 WBC (Bld) 58.1 % . [facility] Nitrite Test strip Ql (U)Ord ered By: Nolberto Hernandez on 10-30-2022 Nitrite Ql (U) Negative Negative [facility] No Panel InformationOrdered By: Nolberto Hernandez on 10-30-2022 Estimated GFR (CKD-EPI) > 60.0 mL/Min [facility] Creatinine Clearance (Chem 71.14 [facility] Nucleated erythrocytes [Pres ence] in Blood by Automated countOrdered By: Nolberto Hernandez on 10-30-2022 Nucleated RBC Auto Ql (Bld) 0.2 /100{WBC} 0-0.5 [facility] Partial Thromboplastin Timeo n 10-30-2022 aPTT Coag (Bld) [Time] 29.4 s Normal 25.1-36.5 [facility] Comment on above: Result Comment: PERF ORMED BY: [facility] [address] [facility] [place] [address] PATHOLOGIST MEDICAL SONOGRAPHER TERESA PATTERSON M.D. Performed By: #### F ER, [id number], FE and TIBC, MG #### [facility] [address] Platelet mean volume Auto (B ld) [Entitic vol]Ordered By: Nolberto Hernandez on 10-30-2022 Platelet mean volume (Bld) [Entitic vol] 8.8 fL 6.6-10.1 [facility] Platelets Auto (Bld) [#/Vol] Ordered By: Nolberto Hernandez on 10-30-2022 Platelets (Bld) [#/Vol] 192 10*3/uL 150-450 [facility] Potassium [Moles/volume] in Serum or PlasmaOrdered By: Nolberto Hernandez on 10-30-2022 Potassium [Moles/Vol] 3.3 mmol/L 3.5-5.1 [facility] Protein Auto test strip (U) [Mass/Vol]Ordered By: Nolberto Hernandez on 10-30-2022 Protein (U) [Mass/Vol] Trace mg/dL Negative [facility] Prothrombin Time INRon 10-30 INR Coag (PPP) [Relative time] 1.1 {INR} Normal [facility] Comment on above: Result Comment: INR Therapeutic [...] - 4.5 Performed By: #### F ER, [id number], FE and TIBC, MG #### [facility] [address] PT Coag (PPP) [Time] 12.6 s Normal 9.0-12.9 [facility] Comment on above: Performed By: #### F ER, [id number], FE and TIBC, MG #### [facility] [address] RBC Auto (Bld) [#/Vol]Ordere d By: Nolberto Hernandez on 10-30-2022 RBC (Bld) [#/Vol] 5.54 10*6/uL 3.90-5.60 [facility] Serum or plasma anion gap de terminationOrdered By: Nolberto Hernandez on 10-30-2022 Anion gap [Moles/Vol] 11.6 mmol/L 6.0-15.0 [facility] Sodium [Moles/volume] in Ser um or PlasmaOrdered By: Nolberto Hernandez on 10-30-2022 Sodium [Moles/Vol] 137 mmol/L 136-145 [facility] Specific gravity Auto test s trip (U) [Rel density]Ordered By: Nolberto Hernandez on 10-30-2022 Specific gravity (U) [Rel density] > 1.050 1.001-1.030 [facility] Troponin I High Sensitivityo n 10-30-2022 Troponin I High Sensitivity 12.1 pg/mL Normal 0.0-20.0 [facility] Comment on above: Result Comment: PERF ORMED BY: [place] [address] PATHOLOGIST MEDICAL SONOGRAPHER TERESA PATTERSON M.D. Performed By: #### F ER, [id number], FE and TIBC, MG #### [facility] [address] Troponin I.cardiac [Mass/vol ume] in Serum or Plasma by Detection limit <= 0.01 ng/Ordered By: Nolberto Hernandez on 10-30-2022 Troponin I.cardiac DL <= 0.01 ng/mL [Mass/Vol] 12.1 pg/mL 0.0-20.0 [facility] Urea nitrogen [Mass/volume] in Serum or PlasmaOrdered By: Nolberto Hernandez on 10-30-2022 Urea nitrogen [Mass/Vol] 12 mg/dL 7-25 [facility] Urine bacteria detection by automated methodOrdered By: Nolberto Hernandez on 10-30-2022 Bacteria Auto Ql (U) None seen None Seen [facility] Urine clarity by refractomet ry automatedOrdered By: Nolberto Hernandez on 10-30-2022 Clarity Refractometry automated (U) Clear Clear [facility] Urine glucose measurement by automated test strip (mass/volume)Ordered By: Nolberto Hernandez on 10-30-2022 Glucose Auto test strip (U) [Mass/Vol] Normal mg/dL Normal [facility] Urine hemoglobin detection b y automated test stripOrdered By: Nolberto Hernandez on 10-30-2022 Hemoglobin Auto test strip Ql (U) 1+ Negative [facility] Urine leukocyte esterase det ection by automated test stripOrdered By: Nolberto Hernandez on 10-30-2022 Leukocyte esterase Auto test strip Ql (U) Negative Negative [facility] Urobilinogen Auto test strip (U) [Mass/Vol]Ordered By: Nolberto Hernandez on 10-30-2022 Urobilinogen (U) [Mass/Vol] Normal mg/dL Normal [facility] WBC Auto (Bld) [#/Vol]Ordere d By: Nolberto Hernandez on 10-30-2022 WBC (Bld) [#/Vol] 9.5 10*3/uL 4.1-10.5 [facility] pH Auto test strip (U)Ordere d By: Nolberto Hernandez on 10-30-2022 pH (U) 6.0 [pH] 5.0-9.0 [facility] Quantiferon-TB Plus (Client Incubated)on 09-08-2022 Gamma interferon background IA Qn (Bld) 0.81 International_Unit/mL Invalid Interpretation Code [facility] Comment on above: Performed By: #### 1 [id number] #### [facility] [address] [place] [address] M. tuberculosis stim IFN-g by CD4+ CD8+ T-cells Qn (Bld) 0.13 International_Unit/mL Invalid Interpretation Code [facility] Comment on above: Performed By: #### 1 [id number] #### [facility] [address] [place] [address] M. tuberculosis stim IFN-g by CD4+ T-cells Qn (Bld) 0.49 International_Unit/mL Invalid Interpretation Code [facility] Comment on above: Performed By: #### 1 [id number] #### [facility] [address] [place] [address] M. tuberculosis stim IFN-g Ql (Bld) [Interp] Negative Invalid Interpretation Code Negative [facility] Comment on above: Result Comment: No r [...] interferon gamma. Chemiluminescence immunoassay methodology Performed at: [facility] [address] [id number] PhD Rex Shirley Performed By: #### 1 [id number] #### [facility] [address] [place] [address] Mitogen stimulated gamma interferon Qn (Bld) >10.00 Invalid Interpretation Code [facility] Comment on above: Performed By: #### 1 [id number] #### [facility] [address] [place] [address] Service comment (Unsp spec) [Interp] Comment Invalid Interpretation Code [facility] Comment on above: Result Comment: Wilmer tiFERON-TB [...] for the test. Performed By: #### 1 [id number] #### [facility] [address] [place] [address] Consent for Treatmenton 08-26 Consent for Treatment [id number]:127 Normal [facility] Physician Orderon 09-06-2022 Physician Order [id number]:127 Normal [facility] INSULINon 08-20-2018 Insulin 8.6 uIU/mL Normal 2.6-24.9 [facility] Comment on above: Performed By: #### I NSULIN ####[facility] [address] [place], [place] [id number] Zena CBC AUTO DIFFon 08-19-2018 Basophils (Bld) [#/Vol] 0.1 103/ul Normal 0.0-0.1 [facility] Comment on above: Performed By: #### C BC ####[facility] [address] [place], [place] [address]Gerken Zena Basophils/100 WBC (Bld) 1.1 % Normal 0.2-2.0 [facility] Comment on above: Performed By: #### C BC ####[facility] [address] [place] [address] Zena Eosinophils (Bld) [#/Vol] 0.1 103/ul Normal 0.0-0.7 [facility] Comment on above: Performed By: #### C BC ####[facility] [address] [place] [address] Z[place] Eosinophils/100 WBC (Bld) 1.8 % Normal 0.9-7.0 [facility] Comment on above: Performed By: #### C BC ####[facility] [address] [place] [address] [place] Erythrocyte distribution width (RBC) [Ratio] 13.7 % Normal 11.0-15.0 [facility] Comment on above: Performed By: #### C BC ####[facility] [address] [place], [place] [address]Gerken Zena Hematocrit (Bld) [Volume fraction] 45.4 % Normal 42.0-54.0 [facility] Comment on above: Performed By: #### C BC ####[facility] [address] [place], [place] [address]Gerken Zena Hemoglobin (Bld) [Mass/Vol] 15.6 g/dL Normal 14.0-18.0 [facility] Comment on above: Performed By: #### C BC ####[facility] [address] [place] [address] Zena IG # 0.05 10e3/ul Critically high 0.00-0.03 [facility] Comment on above: Performed By: #### C BC ####[facility] [address] [place] [address] Zena IG % 0.6 % Critically high 0.0-0.5 [facility] Comment on above: Performed By: #### C BC ####[facility] [address] [place] [address] Z[place] Lymphocytes (Bld) [#/Vol] 2.7 103/ul Normal 1.2-3.8 [facility] Comment on above: Performed By: #### C BC ####[facility] [address] [place] [address] Z[place] Lymphocytes/100 WBC (Bld) 33.3 % Normal 20.5-60.0 [facility] Comment on above: Performed By: #### C BC ####[facility] [address] [place] [address] Zena MANUAL DIFF REQ NO Normal [facility] Comment on above: Performed By: #### C BC ####[facility] [address] [place] [address] Zena MCH (RBC) [Entitic mass] 30.0 pg Normal 25.9-34.0 [facility] Comment on above: Performed By: #### C BC ####[facility] [address] [place] [address] Zena MCHC (RBC) [Mass/Vol] 34.4 g/dL Normal 29.9-35.2 [facility] Comment on above: Performed By: #### C BC ####[facility] [address] [place] [address] Zena MCV (RBC) [Entitic vol] 87.3 fL Normal 80.0-94.0 [facility] Comment on above: Performed By: #### C BC ####[facility] [address], [place] [address]Ikhqon Zena Monocytes (Bld) [#/Vol] 0.8 103/ul Normal 0.3-0.8 [facility] Comment on above: Performed By: #### C BC ####[facility] [address] [place], [place] [address]Ngpoef Zena Monocytes/100 WBC (Bld) 10.0 % Normal 1.7-12.0 [facility] Comment on above: Performed By: #### C BC ####[facility] [address] [place], [place] [address]Bcpaog Zena Neutrophils (Bld) [#/Vol] 4.3 103/ul Normal 1.4-6.5 [facility] Comment on above: Performed By: #### C BC ####[facility] [address] [place] [address]qwmiu Zena Neutrophils/100 WBC (Bld) 53.2 % Normal 43.0-75.0 [facility] Comment on above: Performed By: #### C BC ####[facility] [address] [place] [address]Zlbyuy Zena Platelet mean volume (Bld) [Entitic vol] 11.0 fL Normal 9.5-13.5 [facility] Comment on above: Performed By: #### C BC ####[facility] [address] [place] [address]Zoqwlq Zena Platelets (Bld) [#/Vol] 203 103/ul Normal 150-450 [facility] Comment on above: Performed By: #### C BC ####[facility] [address] [place] [address]Whasje Zena RBC (Bld) [#/Vol] 5.20 106/ul Normal 4.70-6.10 [facility] Comment on above: Performed By: #### C BC ####[facility] [address] [place] [address]Mocxjf Zena WBC (Bld) [#/Vol] 8.0 103/ul Normal 4.0-11.0 [facility] Comment on above: Performed By: #### C BC ####[facility] [address] [place], [place] [address]Qhbamq Zena GLYCOHEMOGLOBIN A1Con 2018 Glucose [Mass/Vol] 120 mg/dL Normal [facility] Comment on above: Performed By: #### A 1C ####[facility] [address] [place], [place] [address]Vbceyo Zena HbA1c (Bld) [Mass fraction] 5.8 % Normal <=6.0 [facility] Comment on above: Performed By: #### A 1C ####[facility] [address] [place], [place] [address]Hlkxdv Zena LIPID PROFILEon 08-19-2018 CHOL-HDL RATIO NORM SEE BELOW Normal [facility] Comment on above: Result Comment: 3.3 - 4.4 LOW RISK 4.4 - 7.1 AVERAGE RISK 7.1 - 11.0 MODERATE RISK >11.0 HIGH RISK Performed By: #### C MP, PSASC, LIPID, URIC ####[facility] [address] [place] [id number] Zena Cholesterol [Mass/Vol] 217 mg/dL Critically high <=200 [facility] Comment on above: Performed By: #### C MP, PSASC, LIPID, URIC ####[facility] [facility] [id number] [place] [id number] Zena Cholesterol in HDL [Mass/Vol] > or = 60 mg/dl - LOW CARDIOVASCULAR RISK <40 mg/dl - HIGH CARDIOVASCULAR RISK Normal [facility] Comment on above: Performed By: #### C MP, PSASC, LIPID, URIC ####[facility] [id number] [place], [place] [address]Eezody Zena Cholesterol in HDL [Mass/Vol] 29 mg/dL Normal [facility] Comment on above: Performed By: #### C MP, PSASC, LIPID, URIC ####[facility] [address] [place] [id number] Zena Cholesterol in LDL [Mass/Vol] 152.2 mg/dL Normal [facility] Comment on above: Performed By: #### C MP, PSASC, LIPID, URIC ####[facility] [id number] [place] [id number] Freitas Cholesterol in LDL [Mass/Vol] SEE BELOW Normal [facility] Comment on above: Result Comment: <100 mg/dl OPTIMAL 100 - 129 mg/dl NEAR OR ABOVE OPTIMAL 130 - 159 mg/dl BORDERLINE HIGH 160 - 189 mg/dl HIGH >190 mg/dl VERY HIGH Performed By: #### C MP, PSASC, LIPID, URIC ####[facility] [address] [place]ena Cholesterol.total/Chol esterol in HDL [Mass ratio] 7.5 {ratio} Normal [facility] Comment on above: Performed By: #### C MP, PSASC, LIPID, URIC ####[facility] [id number] [place]ena Triglyceride [Mass/Vol] 179 mg/dL Critically high <=150 [facility] Comment on above: Performed By: #### C MP, PSASC, LIPID, URIC ####[facility] [address] [place] [address]Gerken Zena VLDL CALC 35.8 mg/dL Normal [facility] Comment on above: Performed By: #### C MP, PSASC, LIPID, URIC ####[facility] L[address] [place]ena OCC BLD IMMUNO SCREENon 07-28 OCCULT BLOOD Positive Normal NEGATIVE [facility] Comment on above: Performed By: #### O BSCRN ####[facility] [id number] Z[place] PROF 14(COMP METB)on 019 Albumin [Mass/Vol] 4.1 g/dL Normal 3.5-5.0 [facility] Comment on above: Performed By: #### C BC #### [facility] [address] [place], [place] [id number] Canelo Zena Albumin/Globulin [Mass ratio] 1.1 {ratio} Normal [facility] Comment on above: Performed By: #### C BC #### [facility] [address] [place] [address] Canelo Zena ALP [Catalytic activity/Vol] 73 U/L Normal 38-126 [facility] Comment on above: Performed By: #### C BC #### [facility] [address] [place], [place] [id number] [place] Zena ALT [Catalytic activity/Vol] 39 U/L Normal 21-72 [facility] Comment on above: Performed By: #### C BC #### [facility] [address] [place] [phone] Canelo Zena Anion gap [Moles/Vol] 12.3 mmol/L Normal [facility] Comment on above: Performed By: #### C BC #### [facility] [address] [place] [address] Can[place] Zena AST [Catalytic activity/Vol] 16 U/L Critically low 17-59 [facility] Comment on above: Performed By: #### C BC #### [facility] [address] [place] [address] Canelo Zena Bilirubin Ql (U) 1.3 mg/dL Normal 0.2-1.3 [facility] Comment on above: Performed By: #### C BC #### [facility] [address] [place] [address] Canelo Zena Calcium [Mass/Vol] 9.1 mg/dL Normal 8.4-10.2 [facility] Comment on above: Performed By: #### C BC #### [facility] [address] [place] [address] Canelo Zena Chloride [Moles/Vol] 103 mmol/L Normal 98-107 [facility] Comment on above: Performed By: #### C BC #### [facility] [address] [place], [place] [id number] Canelo Zena CO2 [Moles/Vol] 27.6 mmol/L Normal 22.0-30.0 [facility] Comment on above: Performed By: #### C BC #### [facility] [address] [place], [place] [id number] Canelo Zena Creatinine [Mass/Vol] 1.12 mg/dL Normal 0.66-1.25 [facility] Comment on above: Performed By: #### C BC #### [facility] [address] [place] [phone] Canelo Zena EGFR-AF MOLDOVAN >60 Normal >=60 [facility] Comment on above: Performed By: #### C BC #### [facility] [address] [place] [phone] Canelo Zena EGFR-NON AF MOLDOVAN >60 Normal >=60 [facility] Comment on above: Performed By: #### C BC #### [facility] [address] [place], [place] [id number] Canelo Zena Globulin (S) [Mass/Vol] 3.7 g/dL Normal [facility] Comment on above: Performed By: #### C BC #### [facility] [address] [place] [address] Canelo Zena Glucose [Mass/Vol] 107 mg/dL Critically high 74-106 [facility] Comment on above: Performed By: #### C BC #### [facility] [address] [place] [address] Canelo Zena Potassium [Moles/Vol] 3.9 mmol/L Normal 3.4-5.0 [facility] Comment on above: Performed By: #### C BC #### [facility] [address] [place] [address] Canelo Zena Protein [Mass/Vol] 7.8 g/dL Normal 6.1-8.2 [facility] Comment on above: Performed By: #### C BC #### [facility] [address] [place] [address] Canelo Zena Sodium [Moles/Vol] 139 mmol/L Normal 137-145 [facility] Comment on above: Performed By: #### C BC #### [facility] [address] [place], [place] [id number] Canelo Zena Urea nitrogen [Mass/Vol] 13.0 mg/dL Normal 9.0-20.0 [facility] Comment on above: Performed By: #### C BC #### [facility] [address] [place], [place] [address] Caneloravindra Freitas Urea nitrogen/Creatinine [Mass ratio] 11.6 mg/mg Normal [facility] Comment on above: Performed By: #### C BC #### [facility] [address] [place], [place] [address] Canelo Zena URIC ACID SERUMon 08-19-2018 Urate [Mass/Vol] 6.3 mg/dL Normal 3.5-8.5 [facility] Comment on above: Performed By: #### C MP, PSASC, LIPID, URIC ####[facility] [address] [place], [place] [address]Pvmbgw Zena BNPon 06-08-2018 Natriuretic peptide B (Bld) [Mass/Vol] 268.0 pg/mL Normal <=900.0 [facility] Comment on above: Performed By: #### C BC #### [facility] [address] [place] [phone] Canelo Zena CBC AUTO DIFFon 06-08-2018 Basophils (Bld) [#/Vol] 0.1 103/ul Normal 0.0-0.1 [facility] Comment on above: Performed By: #### C BC #### [facility] [address] [place] [phone] [place]elo Zena Basophils/100 WBC (Bld) 1.1 % Normal 0.2-2.0 [facility] Comment on above: Performed By: #### C BC #### [facility] [address] [place] [phone] [place]elo Zena Eosinophils (Bld) [#/Vol] 0.1 103/ul Normal 0.0-0.7 [facility] Comment on above: Performed By: #### C BC #### [facility] [address] [place] [phone] [place]elo Zena Eosinophils/100 WBC (Bld) 0.9 % Normal 0.9-7.0 [facility] Comment on above: Performed By: #### C BC #### [facility] [address] [place], [place] [address] Canelo Zena Erythrocyte distribution width (RBC) [Ratio] 14.6 % Normal 11.0-15.0 [facility] Comment on above: Performed By: #### C BC #### [facility] [address] [place] [address] Canelo Freitas Hematocrit (Bld) [Volume fraction] 47.3 % Normal 42.0-54.0 [facility] Comment on above: Performed By: #### C BC #### [facility] [address] [place] [address] Canelo Zena Hemoglobin (Bld) [Mass/Vol] 16.1 g/dL Normal 14.0-18.0 [facility] Comment on above: Performed By: #### C BC #### [facility] [address] [place] [address] Canelo Zena IG # 0.03 10e3/ul Normal 0.00-0.03 [facility] Comment on above: Performed By: #### C BC #### [facility] [address] [place] [address] Can[place] Zena IG % 0.3 % Normal 0.0-0.5 [facility] Comment on above: Performed By: #### C BC #### [facility] [address] [place] [address] Canelo Zena Lymphocytes (Bld) [#/Vol] 3.0 103/ul Normal 1.2-3.8 [facility] Comment on above: Performed By: #### C BC #### [facility] [address] [place] [address] Canelo Freitas Lymphocytes/100 WBC (Bld) 31.5 % Normal 20.5-60.0 [facility] Comment on above: Performed By: #### C BC #### [facility] [address] [place], [place] [id number] Canelo Freitas MANUAL DIFF REQ NO Normal [facility] Comment on above: Performed By: #### C BC #### [facility] [address] [place] [address] Canelo Freitas MCH (RBC) [Entitic mass] 29.2 pg Normal 25.9-34.0 [facility] Comment on above: Performed By: #### C BC #### [facility] [address] [place], [place] [address] Caneloravindra Finken MCHC (RBC) [Mass/Vol] 34.0 g/dL Normal 29.9-35.2 [facility] Comment on above: Performed By: #### C BC #### [facility] [address] [place], [place] [address] Can[place] Zena MCV (RBC) [Entitic vol] 85.8 fL Normal 80.0-94.0 [facility] Comment on above: Performed By: #### C BC #### [facility] [address] [place] [phone] Canelo Zena Monocytes (Bld) [#/Vol] 1.0 103/ul Critically high 0.3-0.8 [facility] Comment on above: Performed By: #### C BC #### [facility] [address] [place], [place] [id number] [place]elo Zena Monocytes/100 WBC (Bld) 10.8 % Normal 1.7-12.0 [facility] Comment on above: Performed By: #### C BC #### [facility] [address] [place], [place] [address] [place]elo Zena Neutrophils (Bld) [#/Vol] 5.3 103/ul Normal 1.4-6.5 [facility] Comment on above: Performed By: #### C BC #### [facility] [address] [place], [place] [address] [place]elo Zena Neutrophils/100 WBC (Bld) 55.4 % Normal 43.0-75.0 [facility] Comment on above: Performed By: #### C BC #### [facility] [address] [place], [place] [address] Canelo Zena Platelet mean volume (Bld) [Entitic vol] 10.2 fL Normal 9.5-13.5 [facility] Comment on above: Performed By: #### C BC #### [facility] [address] [place] [phone] [place] Zena Platelets (Bld) [#/Vol] 205 103/ul Normal 150-450 [facility] Comment on above: Performed By: #### C BC #### [facility] [address] [place], [place] [address] Canelo Freitas RBC (Bld) [#/Vol] 5.51 106/ul Normal 4.70-6.10 [facility] Comment on above: Performed By: #### C BC #### [facility] [address] [place], [place] [address] Caneloravindra Freitas WBC (Bld) [#/Vol] 9.6 103/ul Normal 4.0-11.0 [facility] Comment on above: Performed By: #### C BC #### [facility] [address] [place], [place] [address] Canelo Freitas PROF 14(COMP METB)on 019 Albumin [Mass/Vol] 4.0 g/dL Normal 3.5-5.0 [facility] Comment on above: Performed By: #### C BC #### [facility] [address] [place], [place] [address] Canelo Freitas Albumin/Globulin [Mass ratio] 1.2 {ratio} Normal [facility] Comment on above: Performed By: #### C BC #### [facility] [address] [place], [place] [address] [place] Zena ALP [Catalytic activity/Vol] 77 U/L Normal 38-126 [facility] Comment on above: Performed By: #### C BC #### [facility] [address] [place], [place] [address] Canelo Freitas ALT [Catalytic activity/Vol] 29 U/L Normal 21-72 [facility] Comment on above: Performed By: #### C BC #### [facility] [address] [place], [place] [address] Caneloravindra Freitas Anion gap [Moles/Vol] 10.8 mmol/L Normal Th [facility] Comment on above: Performed By: #### C BC #### [facility] [address] [place], [place] [address] Caneloravindra Freitas AST [Catalytic activity/Vol] 16 U/L Critically low 17-59 [facility] Comment on above: Performed By: #### C BC #### [facility] [address] [place] [phone] [place]elo Zena Bilirubin Ql (U) 1.0 mg/dL Normal 0.2-1.3 [facility] Comment on above: Performed By: #### C BC #### [facility] [address] [place] [address] [place] Zena Calcium [Mass/Vol] 9.2 mg/dL Normal 8.4-10.2 [facility] Comment on above: Performed By: #### C BC #### [facility] [address] [place] [phone] [place] Zena Chloride [Moles/Vol] 101 mmol/L Normal 98-107 [facility] Comment on above: Performed By: #### C BC #### [facility] [address] [place] [address] Can[place] Zena CO2 [Moles/Vol] 29.4 mmol/L Normal 22.0-30.0 [facility] Comment on above: Performed By: #### C BC #### [facility] [address] [place] [phone] [place] Zena Creatinine [Mass/Vol] 1.28 mg/dL Critically high 0.66-1.25 [facility] Comment on above: Performed By: #### C BC #### [facility] [address] [place] [address] [place] Zena EGFR-AF MOLDOVAN >60 Normal >=60 [facility] Comment on above: Performed By: #### C BC #### [facility] [address] [place] [address] [place] Zena EGFR-NON AF MOLDOVAN 56 mL/min/1.73m2 Critically low >=60 [facility] Comment on above: Performed By: #### C BC #### [facility] [address] [phone] [place] Zena Globulin (S) [Mass/Vol] 3.3 g/dL Normal [facility] Comment on above: Performed By: #### C BC #### [facility] [address] [address] [place] Zena Glucose [Mass/Vol] 120 mg/dL Critically high 74-106 [facility] Comment on above: Performed By: #### C BC #### [facility] [address] [place] [address] Can[place] Zena Potassium [Moles/Vol] 4.2 mmol/L Normal 3.4-5.0 [facility] Comment on above: Performed By: #### C BC #### [facility] [address] [place] [address] [place] Zena Protein [Mass/Vol] 7.3 g/dL Normal 6.1-8.2 [facility] Comment on above: Performed By: #### C BC #### [facility] [address] [place] [address] [place] Zena Sodium [Moles/Vol] 137 mmol/L Normal 137-145 [facility] Comment on above: Performed By: #### C BC #### [facility] [address] [place] [address] Canelo Zena Urea nitrogen [Mass/Vol] 17.0 mg/dL Normal 9.0-20.0 [facility] Comment on above: Performed By: #### C BC #### [facility] [address] [place] [address] Canelo Zena Urea nitrogen/Creatinine [Mass ratio] 13.3 mg/mg Normal [facility] Comment on above: Performed By: #### C BC #### [facility] [address] [phone] [place] Zena T3, TOTAL (TRIIODOTHYRONINE) on 06-08-2018 T3, TOTAL 109 ng/dL Normal 71-180 [facility] Comment on above: Performed By: #### C BC #### [facility] [address] [phone] [place] Z[place] BNPon 06-07-2018 Natriuretic peptide B (Bld) [Mass/Vol] 370.0 pg/mL Normal <=900.0 [facility] Comment on above: Performed By: #### B MP, BNP, LIVER, LIPA, CMADM #### [facility] [address] [place] [address] [place] Z[place] CARDIAC JEFF 3-6-9on 12-2 019 CK [Catalytic activity/Vol] 182 U/L Critically high 55-170 [facility] Comment on above: Performed By: #### C BC #### [facility] [address] [place] [address] Can[place] Zena CK.MB [Mass/Vol] 3.00 ng/mL Critically high <=2.37 [facility] Comment on above: Result Comment: test repeated critical value verified Performed By: #### C BC #### [facility] [address] [place] [address] Can[place] Zena INR Coag (Bld) [Relative time] SEE BELOW Normal [facility] Comment on above: Result Comment: <0.0 34 ng/ml NEGATIVE 0.034-0.119 INDETERMINATE 0.120 AMI CUT OFF Performed By: #### C BC #### [facility] [address] [place] [address] Can[place] Zena TROP 0.022 ng/mL Normal <=0.034 [facility] Comment on above: Performed By: #### C BC #### [facility] [address] [place] [address] Canelo Zena CK [Catalytic activity/Vol] 179 U/L Critically high 55-170 [facility] Comment on above: Performed By: #### C BC #### [facility] [address] [place] [address] Canelo Zena CK.MB [Mass/Vol] 3.21 ng/mL Critically high <=2.37 [facility] Comment on above: Result Comment: Test repeated. Critical value verified. Performed By: #### C BC #### [facility] [address] [place] [address] Canelo Zena INR Coag (Bld) [Relative time] SEE BELOW Normal [facility] Comment on above: Result Comment: <0.0 34 ng/ml NEGATIVE 0.034-0.119 INDETERMINATE 0.120 AMI CUT OFF Performed By: #### C BC #### [facility] [address] [place], [place] [address] Canelo Freitas TROP <0.017 Normal <=0.034 [facility] Comment on above: Performed By: #### C BC #### [facility] [address] [place], [place] [address] Canelo Freitas CK [Catalytic activity/Vol] 185 U/L Critically high 55-170 [facility] Comment on above: Performed By: #### C MREP ####[facility] [address] [place] [id number] Zena CK.MB [Mass/Vol] 3.31 ng/mL Critically high <=2.37 [facility] Comment on above: Result Comment: Test repeated. Critical value verified. Performed By: #### C MREP ####[facility] [id number] [place], [place] [address]Gerken Zena INR Coag (Bld) [Relative time] SEE BELOW Normal [facility] Comment on above: Result Comment: <0.0 34 ng/ml NEGATIVE 0.034-0.119 INDETERMINATE 0.120 AMI CUT OFF Performed By: #### C MREP ####[facility] [address] [place] [id number] Freitas TROP <0.017 Normal <=0.034 [facility] Comment on above: Performed By: #### C MREP ####[facility] [address] [place] [id number] Freitas CARDIAC JEFF ADMITon 019 CK [Catalytic activity/Vol] 202 U/L Critically high 55-170 [facility] Comment on above: Result Comment: Test repeated. Critical value verified. Performed By: #### B MP, BNP, LIVER, LIPA, CMADM ####[facility] [address] [place], [place] [address]Gerken Zena CK.MB [Mass/Vol] 3.20 ng/mL Critically high <=2.37 [facility] Comment on above: Result Comment: Test repeated. Critical value verified. Performed By: #### B MP, BNP, LIVER, LIPA, CMADM ####[facility] [address] [place] [id number] Z[place] INR Coag (Bld) [Relative time] SEE BELOW Normal [facility] Comment on above: Result Comment: <0.0 34 ng/ml NEGATIVE 0.034-0.119 INDETERMINATE 0.120 AMI CUT OFF Performed By: #### B MP, BNP, LIVER, LIPA, CMADM ####[facility] [id number] [place] [address]Ger[place] Zena LISA 116.0 ng/mL Normal <=121.0 [facility] Comment on above: Performed By: #### B MP, BNP, LIVER, LIPA, CMADM ####[facility] [address] [place] [address]Ger[place] Zena TROP <0.017 Normal <=0.034 [facility] Comment on above: Performed By: #### B MP, BNP, LIVER, LIPA, CMADM ####[facility] [id number] [place] [id number] Zena CBC AUTO DIFFon 06-07-2018 Basophils (Bld) [#/Vol] 0.1 103/ul Normal 0.0-0.1 [facility] Comment on above: Performed By: #### C BC #### [facility] [address] [place] [address] Canelo Zena Basophils/100 WBC (Bld) 1.1 % Normal 0.2-2.0 [facility] Comment on above: Performed By: #### C BC #### [facility] [address] [place], [place] [id number] Canelo Zena Eosinophils (Bld) [#/Vol] 0.1 103/ul Normal 0.0-0.7 [facility] Comment on above: Performed By: #### C BC #### [facility] [address] [place] [address] Canelo Zena Eosinophils/100 WBC (Bld) 1.3 % Normal 0.9-7.0 [facility] Comment on above: Performed By: #### C BC #### [facility] [address] [place] [address] Caneloravindra Freitas Erythrocyte distribution width (RBC) [Ratio] 14.5 % Normal 11.0-15.0 [facility] Comment on above: Performed By: #### C BC #### [facility] [address] [place] [address] Canelo Zena Hematocrit (Bld) [Volume fraction] 48.7 % Normal 42.0-54.0 [facility] Comment on above: Performed By: #### C BC #### [facility] [address] [place] [address] Canelo Zena Hemoglobin (Bld) [Mass/Vol] 17.0 g/dL Normal 14.0-18.0 [facility] Comment on above: Performed By: #### C BC #### [facility] [address] [place] [address] Canelo Zena IG # 0.03 10e3/ul Normal 0.00-0.03 [facility] Comment on above: Performed By: #### C BC #### [facility] [address] [place] [address] Canelo Zena IG % 0.4 % Normal 0.0-0.5 [facility] Comment on above: Performed By: #### C BC #### [facility] [address] [place] [address] Canelo Zena Lymphocytes (Bld) [#/Vol] 2.5 103/ul Normal 1.2-3.8 [facility] Comment on above: Performed By: #### C BC #### [facility] [address] [place] [address] Canelo Zena Lymphocytes/100 WBC (Bld) 30.8 % Normal 20.5-60.0 [facility] Comment on above: Performed By: #### C BC #### [facility] [address] [place], [place] [id number] Caneloravindra Finken MANUAL DIFF REQ NO Normal [facility] Comment on above: Performed By: #### C BC #### [facility] [address] [place], [place] [id number] Canelo Zena MCH (RBC) [Entitic mass] 29.2 pg Normal 25.9-34.0 [facility] Comment on above: Performed By: #### C BC #### [facility] [address] [place], [place] [id number] Caneloravindra Freitas MCHC (RBC) [Mass/Vol] 34.9 g/dL Normal 29.9-35.2 [facility] Comment on above: Performed By: #### C BC #### [facility] [address] [place], [place] [id number] Caneloravindra Freitas MCV (RBC) [Entitic vol] 83.5 fL Normal 80.0-94.0 [facility] Comment on above: Performed By: #### C BC #### [facility] [address] [place], [place] [id number] Canelo Zena Monocytes (Bld) [#/Vol] 0.8 103/ul Normal 0.3-0.8 [facility] Comment on above: Performed By: #### C BC #### [facility] [address] [place], [place] [id number] Canelo Zena Monocytes/100 WBC (Bld) 9.8 % Normal 1.7-12.0 [facility] Comment on above: Performed By: #### C BC #### [facility] [address] [place], [place] [id number] Canelo Zena Neutrophils (Bld) [#/Vol] 4.5 103/ul Normal 1.4-6.5 [facility] Comment on above: Performed By: #### C BC #### [facility] [address] [place], [place] [id number] Canelo Zena Neutrophils/100 WBC (Bld) 56.6 % Normal 43.0-75.0 [facility] Comment on above: Performed By: #### C BC #### [facility] [address] [place], [place] [phone] Canelo Zena Platelet mean volume (Bld) [Entitic vol] 10.0 fL Normal 9.5-13.5 [facility] Comment on above: Performed By: #### C BC #### [facility] [address] [place], [place] [phone] Canelo Freitas Platelets (Bld) [#/Vol] 202 103/ul Normal 150-450 [facility] Comment on above: Performed By: #### C BC #### [facility] [address] [place], [place] [address] Canelo Freitas RBC (Bld) [#/Vol] 5.83 106/ul Normal 4.70-6.10 [facility] Comment on above: Performed By: #### C BC #### [facility] [address] [place], [place] [address] Canelo Freitas WBC (Bld) [#/Vol] 8.0 103/ul Normal 4.0-11.0 [facility] Comment on above: Performed By: #### C BC #### [facility] [address] [place], [place] [address] HEAD WO CONon 06-07-2018 CT HEAD WO CON [address] [place] [id number] Patient: VIRAJ DOHERTY Exam Date: 06/07/2018 : 1955 Gender:M Ordering : DR DELIO BOYER D.O. Admission #: [id number] Family : DR MARILYN PATRICK . Order #: [id number] CLICK HERE TO VIEW EXAM RADIOLOGY REPORT [...] M.D. on 06/07/2018 at 11:25 Normal [facility] DRUG SCREEN RAPID (URINE)on 06-07-2018 AMP Negative Normal NEGATIVE [facility] Comment on above: Performed By: #### D RUGRPD ####[facility] R[address] BAR Negative Normal NEGATIVE [facility] Comment on above: Performed By: #### D RUGRPD ####[facility] C[address] BUP Negative Normal NEGATIVE [facility] Comment on above: Performed By: #### D RUGRPD ####[facility] [address] [place] [address] BZO Negative Normal NEGATIVE [facility] Comment on above: Performed By: #### D RUGRPD ####[facility] W[address] IAM Negative Normal NEGATIVE [facility] Comment on above: Performed By: #### D RUGRPD ####[facility] [address] [place] [address] CUT-OFFS SEE BELOW Normal [facility] Comment on above: Result Comment: AMP (Amphetamine): [...] 300 ng/mL Performed By: #### D RUGRPD ####[facility] [address] [place], [place] [address]Znwsrn Zena DRUG CUT HEADER DRUG CLASS TEST SYST EM CUT-OFF CONCENTRATIONS ARE FOLLOWS: Normal [facility] Comment on above: Performed By: #### D RUGRPD ####[facility] [address] [place], [place] [address]Kylmwv Zena mAMP Negative Normal NEGATIVE [facility] Comment on above: Performed By: #### Maximino RUGRPD ####[facility] [address] [place], [place] [address]Nftwpg Zena MTD Negative Normal NEGATIVE [facility] Comment on above: Performed By: #### Maximino RUGRPD ####[facility] [address] [place], [place] [address]Nuofwv Zena OPI Negative Normal NEGATIVE [facility] Comment on above: Performed By: #### Maximino DE LEÓNRPD ####[facility] Ze[address]url[address] Zena OXY Negative Normal NEGATIVE [facility] Comment on above: Performed By: #### Maximino RUGRPD ####[facility] [address] [place], [place] [address]Qtmbay Zena PCP Negative Normal NEGATIVE [facility] Comment on above: Performed By: #### Maximino RUGRPD ####[facility] [address] [place], [place] [address]Utczrs Zena PPX Negative Normal NEGATIVE [facility] Comment on above: Performed By: #### Maximino RUGRPD ####[facility] Tdebyswg[address] Zena TCA Negative Normal NEGATIVE [facility] Comment on above: Performed By: #### Maximino RUGRPD ####[facility] Om[address] Zena THC Positive Normal NEGATIVE [facility] Comment on above: Performed By: #### Maximino RUGRPD ####[facility] [address] [place] [id number] Zena ECHOCARDIO M/2D COMPLETEon 0 06-07-2018 ECHOCARDIO M/2D COMPLETE [address] [place] [id number] Patient: VIRAJ DOHERTY Exam Date: 06/07/2018 : 1955 Gender:M Ordering : DR MARILYN PATRICK . Admission #: [id number] Family : Order #: [id number] CLICK HERE TO VIEW EXAM ECHOCARDIOGRAM REPORT [...] Area(A4C): 14.40 cm2 Left Atrium Systolic Volume(A2C): 20098 mm3 Left Atrium Systolic Volume(A4C): 75632 mm3 Mitral Valve MV E to A [...] Matias M.D. on 06/07/2018 at 16:47 Normal [facility] ER URINE PROFILEon 9 Bilirubin [Mass/Vol] Negative Normal NEGATIVE [facility] Comment on above: Performed By: #### E RUR ####[facility] [address] [place] [address] Zena BLOOD Negative Normal NEGATIVE [facility] Comment on above: Performed By: #### E RUR ####[facility] [address] [place] [address] Zena Clarity (U) CLEAR Normal [facility] Comment on above: Performed By: #### E RUR ####[facility] [address] [place] [address] Zena Color (U) LT. YELLOW Normal YELLOW [facility] Comment on above: Performed By: #### E RUR ####[facility] [address] [place] [address] Zena ERUAHD A micrscopic examina tion will be performed if indicated. Normal [facility] Comment on above: Performed By: #### E RUR ####[facility] [address] [place] [address] Zena Glucose [Mass/Vol] Negative Normal NEGATIVE [facility] Comment on above: Performed By: #### E RUR ####[facility] F[address] Zena Ketones Ql (U) Negative Normal NEGATIVE [facility] Comment on above: Performed By: #### E RUR ####[facility] P[address]az[address]elm[address]184 [address] Zena Nitrite Ql (U) Negative Normal NEGATIVE [facility] Comment on above: Performed By: #### E RUR ####[facility] [address] [place] [address] Zena pH (Bld) 6.5 Normal 5-9 [facility] Comment on above: Performed By: #### E RUR ####[facility] [address] [place] [address] Zena Protein (U) [Mass/Vol] Negative Normal Th [facility] Comment on above: Performed By: #### E RUR ####[facility] [address] [place] [address] Zena SPEC GRAVITY 1.010 Normal 1.005-<=1.0 25 [facility] Comment on above: Performed By: #### E RUR ####[facility] [address] [place] [address] Zena UR MICRO IND NOT INDICATED Normal [facility] Comment on above: Performed By: #### E RUR ####[facility] [address] [place] [address] Zena Urobilinogen Qn (U) 0.2 EU/dl Normal [facility] Comment on above: Performed By: #### E RUR ####[facility] [address] [place] [address] Zena WBC (Bld) [#/Vol] Negative Normal NEGATIVE [facility] Comment on above: Performed By: #### E RUR ####[facility] [address] [place] [address] Zena GLYCOHEMOGLOBIN A1Con 2018 Glucose [Mass/Vol] 120 mg/dL Normal [facility] Comment on above: Performed By: #### C BC #### [facility] [address] [place], [place] [address] Canelo Zena HbA1c (Bld) [Mass fraction] 5.8 % Normal <=6.0 [facility] Comment on above: Performed By: #### C BC #### [facility] [address] [place], [place] [address] Canelo Zena LIPASEon 06-07-2018 Lipase [Catalytic activity/Vol] 167.0 U/L Normal 23.0-300.0 [facility] Comment on above: Performed By: #### B MP, BNP, LIVER, LIPA, CMADM #### [facility] [address] [place] [id number] Canelo Zena LIPID PROFILEon 06-07-2018 CHOL-HDL RATIO NORM SEE BELOW Normal [facility] Comment on above: Result Comment: 3.3 - 4.4 LOW RISK 4.4 - 7.1 AVERAGE RISK 7.1 - 11.0 MODERATE RISK >11.0 HIGH RISK Performed By: #### C BC #### [facility] [address] [place] [address] Canelo Zena Cholesterol [Mass/Vol] 236 mg/dL Critically high <=200 [facility] Comment on above: Performed By: #### C BC #### [facility] [address] [place] [address] Canelo Zena Cholesterol in HDL [Mass/Vol] 31 mg/dL Normal [facility] Comment on above: Performed By: #### C BC #### [facility] [address] [place] [address] Canelo Zena Cholesterol in HDL [Mass/Vol] > or = 60 mg/dl - LOW CARDIOVASCULAR RISK <40 mg/dl - HIGH CARDIOVASCULAR RISK Normal [facility] Comment on above: Performed By: #### C BC #### [facility] [address] [place] [address] Canelo Zena Cholesterol in LDL [Mass/Vol] 161.2 mg/dL Normal [facility] Comment on above: Performed By: #### C BC #### [facility] [address] [place], [place] [address] Canelo Zena Cholesterol in LDL [Mass/Vol] SEE BELOW Normal [facility] Comment on above: Result Comment: <100 mg/dl OPTIMAL 100 - 129 mg/dl NEAR OR ABOVE OPTIMAL 130 - 159 mg/dl BORDERLINE HIGH 160 - 189 mg/dl HIGH >190 mg/dl VERY HIGH Performed By: #### C BC #### [facility] [address] [place], [place] [address] Canelo Zena Cholesterol.total/Chol esterol in HDL [Mass ratio] 7.6 {ratio} Normal [facility] Comment on above: Performed By: #### C BC #### [facility] [address] [place], [place] [address] Canelo Zena Triglyceride [Mass/Vol] 219 mg/dL Critically high <=150 [facility] Comment on above: Performed By: #### C BC #### [facility] [address] [place] [id number] Canelo Zena VLDL CALC 43.8 mg/dL Normal [facility] Comment on above: Performed By: #### C BC #### [facility] [address] [place], [place] [address] Canelo Zena LIVER PROFILEon 06-07-2018 Albumin [Mass/Vol] 4.4 g/dL Normal 3.5-5.0 [facility] Comment on above: Performed By: #### B MP, BNP, LIVER, LIPA, CMADM #### [facility] [address] [place], [place] [address] Canelo Zena Albumin/Globulin [Mass ratio] 1.2 {ratio} Normal [facility] Comment on above: Performed By: #### B MP, BNP, LIVER, LIPA, CMADM #### [facility] [address] [place], [place] [address] Canelo Zena ALP [Catalytic activity/Vol] 83 U/L Normal 38-126 [facility] Comment on above: Performed By: #### B MP, BNP, LIVER, LIPA, CMADM #### [facility] [address] [place], [place] [address] Canelo Zena ALT [Catalytic activity/Vol] 34 U/L Normal 21-72 [facility] Comment on above: Performed By: #### B MP, BNP, LIVER, LIPA, CMADM #### [facility] [address] [place] [address] Canelo Zena AST [Catalytic activity/Vol] 23 U/L Normal 17-59 [facility] Comment on above: Performed By: #### B MP, BNP, LIVER, LIPA, CMADM #### [facility] [address] [place] [address] Canelo Zena BILI, CONJUGATED 0.2 mg/dL Normal 0.0-0.3 [facility] Comment on above: Performed By: #### B MP, BNP, LIVER, LIPA, CMADM #### [facility] [address] [place] [address] Canelo Zena Bilirubin Ql (U) 0.9 mg/dL Normal 0.2-1.3 [facility] Comment on above: Performed By: #### B MP, BNP, LIVER, LIPA, CMADM #### [facility] [address] [place] [address] Canelo Zena Globulin (S) [Mass/Vol] 3.6 g/dL Normal [facility] Comment on above: Performed By: #### B MP, BNP, LIVER, LIPA, CMADM #### [facility] [address] [place] [address] Canelo Zena Protein [Mass/Vol] 8.0 g/dL Normal 6.1-8.2 [facility] Comment on above: Performed By: #### B MP, BNP, LIVER, LIPA, CMADM #### [facility] [address] [place] [id number] Canelo Zena MAGNESIUMon 06-07-2018 Magnesium [Mass/Vol] 2.1 mg/dL Normal 1.6-2.3 [facility] Comment on above: Performed By: #### T SH, MG, T4 ####[facility] [address] [place] [id number] Zena MRI BRAIN WO CONon 9 MRI BRAIN WO CON [address] [place] [id number] Patient: VIRAJ DOHERTY Exam Date: 06/07/2018 : 1955 Gender:M Ordering : DR MARILYN PATRICK . Admission #: [id number] Family : Order #: [id number] CLICK HERE TO VIEW EXAM RADIOLOGY REPORT [...] on 06/07/2018 at 15:43 Approved by: Angus Mcfalrane M.D. on 06/07/2018 at 15:55 Normal [facility] POINT OF CARE GLUCOSEon 05-27 Glucose [Mass/Vol] 116 mg/dL Critically high 74-106 [facility] Comment on above: Performed By: #### P OCGLUC #### [facility] [address] [place], [place] [address] Canelo Freitas PROF CHEM 8 (BAS METB)on Anion gap [Moles/Vol] 15.0 mmol/L Normal [facility] Comment on above: Performed By: #### B MP, BNP, LIVER, LIPA, CMADM #### [facility] [address] [place] [address] Canelo Zena Calcium [Mass/Vol] 9.1 mg/dL Normal 8.4-10.2 [facility] Comment on above: Performed By: #### B MP, BNP, LIVER, LIPA, CMADM #### [facility] [address] [place] [address] Canelo Zena Chloride [Moles/Vol] 100 mmol/L Normal 98-107 [facility] Comment on above: Performed By: #### B MP, BNP, LIVER, LIPA, CMADM #### [facility] [address] [place] [address] Canelo Zena CO2 [Moles/Vol] 24.9 mmol/L Normal 22.0-30.0 [facility] Comment on above: Performed By: #### B MP, BNP, LIVER, LIPA, CMADM #### [facility] [address] [place] [address] Canelo Zena Creatinine [Mass/Vol] 1.07 mg/dL Normal 0.66-1.25 [facility] Comment on above: Performed By: #### B MP, BNP, LIVER, LIPA, CMADM #### [facility] [address] [place] [address] Canelo Zena EGFR-AF MOLDOVAN >60 Normal >=60 [facility] Comment on above: Performed By: #### B MP, BNP, LIVER, LIPA, CMADM #### [facility] [address] [place] [address] Canelo Zena EGFR-NON AF MOLDOVAN >60 Normal >=60 [facility] Comment on above: Performed By: #### B MP, BNP, LIVER, LIPA, CMADM #### [facility] [address] [place] [address] Canelo Zena Glucose [Mass/Vol] 119 mg/dL Critically high 74-106 [facility] Comment on above: Performed By: #### B MP, BNP, LIVER, LIPA, CMADM #### [facility] [address] [place] [address] Canelo Zena Potassium [Moles/Vol] 3.9 mmol/L Normal 3.4-5.0 [facility] Comment on above: Performed By: #### B MP, BNP, LIVER, LIPA, CMADM #### [facility] [address] [place] [address] Canelo Zena Sodium [Moles/Vol] 136 mmol/L Critically low 137-145 Th e [facility] Comment on above: Performed By: #### B MP, BNP, LIVER, LIPA, CMADM #### [facility] [address] [place] [address] Canelo Zena Urea nitrogen [Mass/Vol] 11.0 mg/dL Normal 9.0-20.0 [facility] Comment on above: Performed By: #### B MP, BNP, LIVER, LIPA, CMADM #### [facility] [address] [place] [address] Canelo Zena Urea nitrogen/Creatinine [Mass ratio] 10.3 mg/mg Normal [facility] Comment on above: Performed By: #### B MP, BNP, LIVER, LIPA, CMADM #### [facility] [address] [place] [address] Canelo Zena PROTIMEon 06-07-2018 INR Coag (PPP) [Relative time] 1.05 {INR} Normal [facility] Comment on above: Performed By: #### P T, PTT #### [facility] [address] [place] [address] Canelo Zena PT Coag (PPP) [Time] 10.8 s Normal 9.0-11.6 [facility] Comment on above: Performed By: #### P T, PTT #### [facility] [address] [place] [address] Canelo Zena PT Coag (PPP) [Time] PLEASE NOTE: NORMAL RANGE CHANGE 11-13-2013 DUE TO REAGENT LOT CHANGE Normal [facility] Comment on above: Performed By: #### P T, PTT #### [facility] [address] [place], [place] [id number] Canelo Zena PT Coag (PPP) [Time] SEE BELOW Normal [facility] Comment on above: Result Comment: PACO RED INR: 2.0 - 3.0 CONDITIONS NOT LISTED BELOW 2.5 - 3.5 FOR PROSTHETIC HEART VALVE REPLACEMENT 2.5 - 3.5 RECURRENT THROMBOSIS Performed By: #### P T, PTT #### [facility] [address] [place] [address] Canelo Freitas PTTon 06-07-2018 aPTT Coag (Bld) [Time] 25.7 s Normal 22.3-36.2 Th e [facility] Comment on above: Performed By: #### P T, PTT #### [facility] [address] [place] [address] Canelo Freitas aPTT Coag (Bld) [Time] PLEASE NOTE: NORM AL RANGE CHANGE 01-20-2015 DUE TO REAGENT LOT CHANGE Normal [facility] Comment on above: Performed By: #### P T, PTT #### [facility] [address] [place] [address] Canelo Freitas T4on 06-07-2018 T4 [Mass/Vol] 6.20 ug/dL Normal 5.53-11.00 [facility] Comment on above: Performed By: #### T SH, MG, T4 ####[facility] [address] [place] [address]Canelo Freitas TSHon 06-07-2018 TSH Qn SEE BELOW Normal [facility] Comment on above: Result Comment: <0.3 4 UIU/ml HYPERTHYROID 0.34-5.60 UIU/ml EUTHYROID >5.60 UIU/ml HYPOTHYROID Performed By: #### T SH, MG, T4 ####[facility] [address] [place] [address]Canelo Freitas TSH Qn 2.494 uIU/mL Normal 0.470-4.680 [facility] Comment on above: Performed By: #### T SH, MG, T4 ####[facility] [address] [place] [address]Canelo Freitas US CAROTID ART BILon 019 Bilirubin [Mass/Vol] [address] [place] [address] Patient: VIRAJ DOHERTY Exam Date: 06/07/2018 : 1955 Gender:M Ordering : DR MARILYN PATRICK . Admission #: [id number] Family : ICU Order #: [id number] CLICK HERE TO VIEW EXAM RADIOLOGY REPORT [...] Mcfarlane M.D. on 06/07/2018 at 16:14 Normal [facility] XR CHEST 2 Von 06-07-2018 XR CHEST 2 [address] [place] [address] Patient: VIRAJ DOHERTY Exam Date: 06/07/2018 : 1955 Gender:M Ordering : DR DELIO BOYER D.O. Admission #: [id number] Family : DR MARILYN PATRICK . Order #: [id number] CLICK HERE TO VIEW EXAM RADIOLOGY REPORT [...] Mcfarlane M.D. on 06/07/2018 at 11:37 Normal [facility] Vital Signs Date Time Vital Sign Value Performing Clinician Shannan roy 12-20-2022 09:08-0400 Diastolic blood pressure 89 mm[Hg] MD Nolberto Hernandez Work Phone: [facility] 12-20-2022 09:08-0400 Systolic blood pressure 150 mm[Hg] MD Nolberto Hernandez Work Phone: [facility] 12-20-2022 04:48-0400 Body temperature 98 [degF] MD Nolberto Hernandez Work Phone: [facility] 12-20-2022 04:48-0400 Heart rate 83 /min MD Nolberto Hernandez Work Phone: [facility] 12-20-2022 04:48-0400 Respiratory rate 18 /min MD Nolberto Hernandez Work Phone: [facility] 12-20-2022 04:48-0400 SaO2% (BldA) [Mass fraction] 97 % MD Nolberto Hernandez Work Phone: [facility] 12-19-2022 11:15-0400 Body height 180.34 cm MD Nolberto Hernandez Work Phone: [facility] 12-17-2022 05:25-0400 Body weight 69.7 kg MD Nolberto Hernandez Work Phone: [facility] 12-12-2022 08:00-0400 Body temperature 97.9 [degF] MD Nolberto Hernandez Work Phone: [facility] 12-12-2022 08:00-0400 Diastolic blood pressure 79 mm[Hg] MD Nolberto Hernandez Work Phone: [facility] 12-12-2022 08:00-0400 Heart rate 91 /min MD Nolberto Hernandez Work Phone: [facility] 12-12-2022 08:00-0400 Respiratory rate 20 /min MD Nolberto Hernandez Work Phone: [facility] 12-12-2022 08:00-0400 SaO2% (BldA) [Mass fraction] 94 % MD Nolberto Hernandez Work Phone: [facility] 12-12-2022 08:00-0400 Systolic blood pressure 104 mm[Hg] MD Nolberto Hernandez Work Phone: [facility] 12-12-2022 05:52-0400 Body weight 70.4 kg MD Nolberto Hernandez Work Phone: [facility] 12-09-2022 23:55-0400 Body height 180.34 cm MD Nolberto Hernandez Work Phone: [facility] 11-15-2022 13:01-0400 Diastolic blood pressure 73 mm[Hg] MD Nolberto Hernandez Work Phone: [facility] 11-15-2022 13:01-0400 Respiratory rate 16 /min MD Nolberto Hernandez Work Phone: [facility] 11-15-2022 13:01-0400 SaO2% (BldA) [Mass fraction] 96 % MD Nolberto Hernandez Work Phone: [facility] 11-15-2022 13:01-0400 Systolic blood pressure 129 mm[Hg] MD Nolberto Hernandez Work Phone: [facility] 11-15-2022 05:00-0400 Body temperature 97.7 [degF] MD Nolberto Hernandez Work Phone: [facility] 11-15-2022 05:00-0400 Heart rate 67 /min MD Nolberto Hernandez Work Phone: [facility] 11-12-2022 05:24-0400 Body weight 69.8 kg MD Nolberto Hernandez Work Phone: [facility] 11-10-2022 14:53-0400 Body height 180.34 cm MD Nolberto Hernandez Work Phone: [facility] 11-02-2022 12:29-0400 Body temperature 98.4 [degF] MD Nolberto Hernandez Work Phone: [facility] 11-02-2022 12:29-0400 Diastolic blood pressure 72 mm[Hg] MD Nolberto Hernandez Work Phone: [facility] 11-02-2022 12:29-0400 Heart rate 83 /min MD Nolberto Hernandez Work Phone: [facility] 11-02-2022 12:29-0400 Respiratory rate 16 /min MD Nolberto Hernandez Work Phone: [facility] 11-02-2022 12:29-0400 SaO2% (BldA) [Mass fraction] 97 % MD Nolberto Hernandez Work Phone: [facility] 11-02-2022 12:29-0400 Systolic blood pressure 142 mm[Hg] MD Nolberto Hernandez Work Phone: [facility] 11-02-2022 06:00-0400 Body weight 71 kg MD Nolberto Hernandez Work Phone: [facility] 10-31-2022 14:37-0400 Body height 180.34 cm MD Nolberto Hernandez Work Phone: [facility] 10-30-2022 22:31-0400 Diastolic blood pressure 110 mm[Hg] MD Nolberto Hernandez Work Phone: [facility] 10-30-2022 22:31-0400 Heart rate 65 /min MD Nolberto Hernandez Work Phone: [facility] 10-30-2022 22:31-0400 Respiratory rate 18 /min MD Nolberto Hernandez Work Phone: [facility] 10-30-2022 22:31-0400 SaO2% (BldA) [Mass fraction] 96 % MD Nolberto Hernandez Work Phone: [facility] 10-30-2022 22:31-0400 Systolic blood pressure 200 mm[Hg] MD Nolberto Hernandez Work Phone: [facility] 10-30-2022 19:11040 Body height 175.26 cm MD Nolberto Hernandez Work Phone: [facility] 10-30-2022 19:110400 Body weight 74.84 kg MD Nolberto Hernandez Work Phone: [facility] 10-30-2022 19:10040 Body temperature 98.6 [degF] MD Nolberto Hernandez Work Phone: [facility] Encounters Encounter Date Encounter Type Care Provider Facility Start: 07-19-2023 End: 07-19-2023 ambulatory IVON YOO Not Available Start: 06-05-2023 ambulatory Kevin DYSON Facility :[facility] Start: 04-27-2023 ambulatory SHANNON JORDAN Facility: [facility] Start: 12-12-2022 End: 12-20-2022 Evaluation and management of inpatient Jose Martin Niñoey Facility:[facility] Start: 12-12-2022 End: 12-20-2022 Evaluation and management of inpatient MD Nolberto Hernandez Work Phone: [facility] Work Phone: Start: 12-10-2022 End: 12-12-2022 Evaluation and management of inpatient Davey Harding Facility:[facility] Start: 12-09-2022 End: 12-12-2022 Evaluation and management of inpatient MD Nolberto Hernandez Work Phone: [facility] Work Phone: Start: 12-07-2022 End: 12-07-2022 ambulatory Jose Martin Sen Facility:[facility] Start: 12-07-2022 End: 12-07-2022 ambulatory MD Nolberto Hernandez Work Phone: [facility] Work Phone: Start: 12-07-2022 End: 12-07-2022 Discharged Recurring MD Nolberto Hernandez Work Phone: [facility] [address] Start: 12-07-2022 Registered Recurring MD Nolberto alanis Work Phone: [facility] [address] Start: 11-02-2022 End: 11-15-2022 Evaluation and management of inpatient Jose Martin Sen Facility:[facility] Start: 11-02-2022 End: 11-15-2022 Evaluation and management of inpatient MD Nolberto Hernandez Work Phone: [facility] Work Phone: Start: 10-30-2022 End: 11-02-2022 Evaluation and management of inpatient Davey Harding Facility:[facility] Start: 10-30-2022 End: 11-02-2022 Evaluation and management of inpatient MD Nolberto Hernandez Work Phone: [facility] Work Phone: Start: 09-06-2022 End: 09-07-2022 ambulatory SHANNONBIJU JORDAN Facility:[facility] Start: 09-06-2022 End: 09-06-2022 Patient encounter procedure SHANNON JORDAN [facility] Start: 09-07-2021 End: 09-07-2021 Patient encounter procedure SHANNON JORDAN [facility] Start: 08-19-2018 End: 08-20-2018 Patient encounter procedure MARILYN HOY Facility: Start: 06-10-2018 End: 06-11-2018 Patient encounter procedure DEFAULT PHYSICIAN Facility:[facility] Start: 06-07-2018 End: 06-08-2018 Evaluation and management of inpatient MARILYN HOY Facility:[facility] Procedures Date Procedure Procedure Detail Performing Clinician Start: 12-11-2022 MRI of head MD Nolberto perkins Work Phone: Start: 11-07-2022 CT of head without contrast MD Nolberto Hernandez Work Phone: Start: 11-03-2022 Stool culture for bacteria MD Nolberto Hernandez Work Phone: Start: 10-31-2022 MRI of head MD Nolberto perkins Work Phone: Start: 10-30-2022 CT angiography of head MD Nolberto Hernandez Work Phone: Start: 10-30-2022 CT angiography of ne ck vessels MD Nolberto Hernandez Work Phone: Start: 10-30-2022 CT of head without contrast MD Nolberto Hernandez Work Phone: Start: 10-30-2022 Plain chest X-ray MD Karen Hernandez Work Phone: Start: 08-19-2018 [object Object] MARILYN PATRICK Comment on above: Performed By: #### C BC #### [facility] [address] [address] Canelo Freitas Plan of Treatment Date Care Activity Detail Author Start: 12-19-2022 [facility] Start: 12-18-2022 Arrangement of care procedure [facility] Start: 12-13-2022 Administration of prophylactic treatment [facility] Start: 12-12-2022 Hospital admission [facility] Start: 12-12-2022 Referral to clinical boiler house inspector [facility] Start: 12-12-2022 [facility] Start: 12-12-2022 [facility] Start: 12-11-2022 Referral to rehabili tation physician [facility] Start: 12-10-2022 Hospital admission [facility] Start: 12-10-2022 Referral to neurologist [facility] Start: 11-15-2022 [facility] Start: 11-09-2022 Blood chemistry [facility] Start: 11-09-2022 [facility] Start: 11-08-2022 Blood chemistry [facility] Start: 11-08-2022 [facility] Start: 11-07-2022 Blood chemistry [facility] Start: 11-07-2022 [facility] Start: 11-06-2022 Administration of prophylactic treatment [facility] Start: 11-06-2022 Blood chemistry [facility] Start: 11-06-2022 [facility] Start: 11-05-2022 Blood chemistry [facility] Start: 11-05-2022 [facility] Start: 11-04-2022 Blood chemistry [facility] Start: 11-04-2022 [facility] Start: 11-03-2022 Blood chemistry [facility] Start: 11-03-2022 [facility] Start: 11-02-2022 Hospital admission [facility] Start: 11-02-2022 Referral to clinical boiler house inspector [facility] Start: 11-02-2022 Blood chemistry [facility] Start: 11-02-2022 End: 11-02-2022 [facility] Start: 11-01-2022 Blood chemistry [facility] Start: 11-01-2022 [facility] Start: 10-31-2022 Referral to rehabili tation physician [facility] Start: 10-31-2022 Blood chemistry [facility] Start: 10-31-2022 MRI of head MR head/brain wo con [facility] Start: 10-31-2022 End: 10-31-2022 [facility] Start: 10-30-2022 [facility] Start: 10-30-2022 Hospital admission [facility] Start: 10-30-2022 Physical therapy procedure [facility] Start: 10-30-2022 Referral to neurologist [facility] Start: 10-30-2022 Referral to occupati onal therapist [facility] Start: 10-30-2022 CT angiography of head [facility] Start: 10-30-2022 CT angiography of ne ck vessels [facility] Start: 10-30-2022 CT Head WO contrast Fir [facility] Start: 10-30-2022 CT of head without contrast CT head stroke alert wo con [facility] Start: 10-30-2022 Plain chest X-ray XR chest 1V portab le [facility] Start: 10-30-2022 XR Chest Single view [facility] Anion gap measurement [facility] Basophils [#/volume] in Blood by Automated count [facility] Basophils/100 leukoc ytes in Blood by Automated count [facility] Bilirubin measuremen t, urine [facility] Color of Urine [facility] Detection of hemoglobin [facility] Eosinophils [#/volum e] in Blood [facility] Eosinophils/100 leuk ocytes in Blood by Automated count [facility] Erythrocyte distribu tion width [Ratio] by Automated count [facility] Erythrocytes [#/volu me] in Blood [facility] Glucose [Mass/volume ] in Urine by Test strip [facility] Hematocrit [Volume Fraction] of Blood [facility] Hemoglobin [Mass/vol ume] in Blood [facility] Leukocytes [#/volume ] corrected for nucleated erythrocytes in Blood by Automated coun [facility] Leukocytes [#/volume ] in Blood [facility] Lymphocytes [#/volum e] in Blood by Automated count [facility] Lymphocytes/100 leuk ocytes in Blood by Automated count [facility] MCH [Entitic mass] b y Automated count [facility] MCHC [Mass/volume] b y Automated count [facility] MCV [Entitic volume] by Automated count [facility] Measurement of keton es in urine using dipstick [facility] Monocytes [#/volume] in Blood by Automated count [facility] Monocytes/100 leukoc ytes in Blood by Automated count [facility] Neutrophils [#/volum e] in Blood by Automated count [facility] Neutrophils/100 leuk ocytes in Blood by Automated count [facility] Nucleated erythrocyt es [Presence] in Blood by Automated count [facility] Patient Education [facility] Work Phone: Patient referral [facility] Work Phone: Platelet mean volume [Entitic volume] in Blood by Automated count [facility] Platelets [#/volume] in Blood [facility] Protein measurement, urine F [facility] Urinalysis, specific gravity measurement [facility] Urine dipstick for nitrite F [facility] Urine dipstick for s pecific gravity [facility] Urine pH test [facility] Urobilinogen concent ration, test strip measurement [facility] Payers Date Payer Category Payer Unknown [id number] 2022 Self-pay 1961 Medicare [id number] 1955 Unknown [id number] 2.16.8 [id number] 1955 Unknown [id number] 2.16.84 [id number] 1955 Unknown [id number] 2.16.84 [id number] 1955 Unknown [id number] 2.16.8 [id number] 1955 Unknown [id number] 2.16.8 [id number] 1955 Unknown [id number] 2.16.8 [id number] 1955 Unknown [id number] 2.16.84 [id number] Medicaid Medicaid [id number] Unknown Unknown [id number] 2.16.8 [id number] Unknown [id number] 2.16.8 [id number] Unknown [id number] 2.16.8 [id number] Unknown [id number] 2.16.8 [id number] Unknown [id number] 2.16.8 [id number] Social History Date Type Detail Facility Tobacco smoking status No Smokin g Status Entered [facility] Sex Assigned At Male [facility] Tobacco smoking status No Smokin g Status Entered [facility] Start: 10-30-2022 [facility] Start: 1955 Sex Assigned At Male F [facility] Start: 10-31-2022 End: 12-13-2022 Tobacco smoking status NHIS Never smoked tobacco (finding) [facility] Start: 12-12-2022 [facility] Goals Date Patient Goal Desired Activity /State Functional Status Date Assessment Result Facility 12-20-2022 Functional status Patient is Pro gressing Toward Baseline [facility] Work Phone: 12-12-2022 Functional status Patient Not at Baseline [facility] Work Phone: 11-15-2022 Functional status Patient Not at Baseline [facility] Work Phone: 11-02-2022 Functional status Patient Not at Baseline [facility] Work Phone: Mental Status Date Assessment Result Facility 12-20-2022 Cognitive function Cognitive Sta tus Patient is Progressing Toward Baseline [facility] Work Phone: 12-12-2022 Cognitive function Cognitive Sta tus Patient Not at Baseline [facility] Work Phone: 11-15-2022 Cognitive function Cognitive Sta tus Patient at Baseline [facility] Work Phone: 11-02-2022 Cognitive function Cognitive Sta tus Patient at Baseline [facility] Work Phone: Clinical Notes 09-07-2021 to 12-21-2022 Note Date & Type Note Facility 12-21-2022 Hospital Discharg e instructions Additional Instructions -Diet: low fat, low cholesterol. -Ambulate as tolerated. No driving unless cleared by physician, may ride in car. You will have Outpatient Therapy at [facility] ([phone] ext. [phone]). The order for this has been sent [...] to inform them prior to your appointment. [facility] Work Phone: 12-18-2022 Progress note Note Date/Time December 18, 2022 10:09am [facility] [address] [place] [address] Physiatry(Rehab) Progress Note Signed Patient: Viraj Doherty MR#: [id number] : 1955 Acct:[id number] Age/Sex: 67 / M Adm Date: 3 Loc: Room: 0P0982-2 Type: ADM IN Attending Dr: Jose Martin [...] mg 12/12/22 18:42 Bisacodyl 10 Mg Supp.Rect NJ 12/12/23 18:41 DAILY PRN Constipation Clopidogrel Bisulfate [...] 18:42 Docusate Enema 283 Mg/5 Ml Enema NJ 12/12/23 18:41 DAILY PRN Constipation Enoxaparin Sodium [...] equipment to enhance the patient's a functional mandaen Ensure adequate nutrition and hydration Sleep: No concerns. Pain: No issues. Discharge planning: Home with in a week or two. Plan: I completed a substantive portion of this encounter, the medical decision makingportion of this note in its entirety, including Allied health note review, nursing note review, wig sales consultant note review, discussion with nursing and case management, and more than 50% of my time was spent on counseling and coordination of care, time spent 40 minutes Patient was personally seen by me, Dr. Sen, on the day of encounter, reviewed the history and the relevant portions of the chart, including current orders, allied health and wig sales consultant notes, labs/imaging and performed garner elements of exam and I formulated the plan of care and facilitated the medical decision making. Documented By: Jose Martin Sen MD 12/18/22 1008 Signed By: <Electronically signed by Jose Martin Sen MD> 12/18/22 4684 [facility] Work Phone: 1(378) 899-659210-21-2023 Progress note Author Jose Martin Sen [facility] December 16, 2022 9:30am Note Date/Time December 16, 2022 9 :30am [facility] [address] [place] [address] Physiatry(Rehab) Progress Note Signed Patient: Viraj Doherty MR#: [id number] : 1955 Acct:[id number] Age/Sex: 67 / M Adm Date: 3 Loc: Room: 8B4500-5 Type: ADM IN Attending Dr: Jose Martin [...] F 79 18 104/72 98 Room Air 12/16/22 08:26 12/16/22 08:26 12/16/22 08:26 12/16/22 [...] mg 12/12/22 18:42 Bisacodyl 10 Mg Supp.Rect NJ 12/12/23 18:41 DAILY PRN Constipation Clopidogrel Bisulfate 75 mg 12/13/22 09:00 12/16/22 08:21 Clopidogrel Bisulfate 75 Mg Tablet PO 12/13/23 08:59 75 mg DAILY LEVON Administration Cyanocobalamin 1,000 mcg 12/13/22 09:00 12/16/22 08:21 Cyanocobalamin 1,000 Mcg Tablet PO 12/13/23 08:59 1,000 mcg QAM [facility] Administration Docusate Sodium 100 mg 12/12/22 18:42 Docusate 100 Mg Capsule PO 12/12/23 18:41 BID PRN Constipation Docusate Sodium 283 mg 12/12/22 18:42 Docusate Enema 283 Mg/5 Ml Enema NJ 12/12/23 18:41 DAILY PRN Constipation Enoxaparin Sodium [...] equipment to enhance the patient's a functional mandaen Ensure adequate nutrition and hydration Sleep: No concerns. Pain: No issues. Discharge planning: Home with in a week or two. Plan: I completed a substantive portion of this encounter, the medical decision makingportion of this note in its entirety, including Allied health note review, nursing note review, wig sales consultant note review, discussion with nursing and case management, and more than 50% of my time was spent on counseling and coordination of care, time spent 40 minutes Patient was personally seen by me, Dr. Sen, on the day of encounter, reviewed the history and the relevant portions of the chart, including current orders, allied health and wig sales consultant notes, labs/imaging and performed garner elements of exam and I formulated the plan of care and facilitated the medical decision making. Documented By: Jose Martin Sen MD 12/16/22927 Signed By: <Electronically signed by Jose Martin Sen MD> 12/16/22929 [facility] Work Phone: 1(407) 508-430810-21-2023 Progress note Author Jose Martin Sen [facility] December 16, 2022 7:21am Note Date/Time December 14, 2022 1 2:52pm [facility] [address] [place] [address] Physiatry(Rehab) Progress Note Signed Patient: Viraj Doherty MR#: [id number] : 1955 Acct:[id number] Age/Sex: 67 / M Adm Date: 3 Loc: Room: 2P5533-1 Type: ADM IN Attending Dr: Jose Martin [...] assist for transfers. Review of Systems <Janice JASMIN Altamirano - Last Filed: 12/14/22 12:53> Review of [...] constricted. Speech garbled, significant expressive/receptive aphasia. Objective <Janiceclaritza Altamirano APRN - Last Filed: 12/14/22 12:53> [...] mg 12/12/22 18:42 Bisacodyl 10 Mg Supp.Rect NJ 12/12/23 18:41 DAILY PRN Constipation Clopidogrel Bisulfate [...] 18:42 Docusate Enema 283 Mg/5 Ml Enema NJ 12/12/23 18:41 DAILY PRN Constipation Enoxaparin Sodium [...] mg DAILY LEVON Administration Assessment/Plan <Janice Altamirano APRN - Last Filed: 12/14/22 12:53> Assessment/Plan (1) [...] equipment to enhance the patient's a functional mandaen Ensure adequate nutrition and hydration Sleep: No concerns. Pain: No issues. Discharge planning: Home with in 7 to 10 days. I spent greater than 15 minutes for services, including [id number] encounter with the patient, discussion of the case, plan of care, and exam; and [id number] activities, such as reviewing pertinent wig sales consultant documentation, recent therapy notes, laboratory and radiology studies, and discussion of case with care team including physician, nursing, egg caser, and therapists. More than 50 % of [...] Allied health note review, nursing note review, wig sales consultant note review, discussion with nursing and case management, and more than 50% of my time was spent on counseling and coordination of care, time spent 40 minutes Patient was personally seen by me, Dr. Sen, on the day of encounter, reviewed the history and the relevant portions of the chart, including current orders, allied health and wig sales consultant notes, labs/imaging and performed garner elements of exam and I formulated the plan of care and facilitated the medical decision making. Encourage p.o. intake. Blood pressure less than 100 or 110 consistently, would consider fluid bolus. Documented By: Janice Altamirano APRN 12/14/22 1 246 Signed By: <Electronically signed by JASMIN Altamirano> 12/14/22 1253 <Electronically signed by Jose Martin Sen MD> 12/16/22 0753 [facility] [facility] Work Phone: [phone] 721-373310-19-2023 Consult note Author Quynh Galvan [facility] December 14, 2022 7:01am Note Date/Time December 13, 2022 3 :52pm [facility] [address] [place] [address] Hospitalist Consult Note Signed Patient: Viraj Doherty MR#: [id number] : 1955 Acct:[id number] Age/Sex: 67 / M Adm Date: 3 Loc: Room: 9Y3947-3 Type: ADM IN Attending Dr: Jose Martin [...] negative unless noted in the HPI below [facility] Medical History (Updated 12/13/22 @ 11:18 by [...] mg 12/12/22 18:42 Bisacodyl 10 Mg Supp.Rect NJ 12/12/23 18:41 DAILY PRN Constipation Clopidogrel Bisulfate 75 mg 12/13/22 09:00 12/13/22 09:32 Clopidogrel Bisulfate 75 Mg Tablet PO 12/13/23 08:59 75 mg DAILY LEVON Administration Cyanocobalamin 1,000 mcg 12/13/22 09:00 12/13/22 09:32 Cyanocobalamin 1,000 Mcg Tablet PO 12/13/23 08:59 1,000 mcg QAM LEVON Administration Docusate Sodium 100 mg 12/12/22 18:42 Docusate 100 Mg Capsule PO 12/12/23 18:41 BID PRN Constipation Docusate Sodium 283 mg 12/12/22 18:42 Docusate Enema 283 Mg/5 Ml Enema NJ 12/12/23 18:41 DAILY PRN Constipation Enoxaparin Sodium 40 mg 12/13/22 10:00 12/13/22 09:34 Enoxaparin 40 Mg/0.4 Ml Syringe SUBCUT 12/13/23 09:59 40 mg DAILY@1000 ELVON Administration Lactulose 30 gm 12/12/22 18:42 Lactulose [...] Tablet PO 12/13/23 08:59 Not Given DAILY [facility] Exam Physical Exam Vital Signs: Temp Pulse [...] % (Auto) 49.3, Lymph % (Auto) 36.9, [place] % (Auto) 9.9, Eos % (Auto) 2.7, Baso % (Auto) 1.2, Nucleat RBC Rel Count 0.1, Neut # (Auto) 3.3, Lymph # (Auto) 2.5, [place] # (Auto) 0.7, Eos # (Auto) 0.2, [...] signed by Quynh Galvan MD> 12/14/22 0701 [facility] Work Phone: [phone] 731-135110-18-2023 History and physical note Author Jose Martin Sen [facility] December 13, 2022 3:06pm Note Date/Time December 13, 2022 1 0:16am [facility] [address] [place] [address] Physiatry (Rehab) H&P Signed Patient: Viraj Doherty MR#: [id number] : 1955 Acct:[id number] Age/Sex: 67 / M Adm Date: 3 Loc: Room: 7W2839-0 Type: ADM IN Attending Dr: Jose Martin [...] discomfort. No cardiopulmonary symptoms. No GI/ concerns. [facility] Medical History (Updated 12/13/22 @ 11:18 by [...] Bisacodyl (Bisacodyl 10 Mg Supp.Rect) 10 mg NJ DAILY PRN PRN Reason: Constipation Stop: 12/12/23 [...] Enema 283 Mg/5 Ml Enema) 283 mg NJ DAILY PRN PRN Reason: Constipation Stop: 12/12/23 18:41 Enoxaparin Sodium (Enoxaparin 40 Mg/0.4 Ml Syringe) 40 mg SUBCUT DAILY@1000 [facility] Stop: 12/13/23 09:59 Last Admin: 12/13/22 09:34 Dose: 40 mg Lactulose (Lactulose 20 Gm/30 Ml Udc) 30 gm PO DAILY PRN PRN Reason: Constipation Stop: 12/12/23 18:41 Levetiracetam (Levetiracetam 500 Mg Tablet) 500 mg PO BID [facility] Stop: 12/12/23 20:59 Last Admin: 12/13/22 09:32 Dose: 500 mg Polysaccharide Iron Complex (Iron Polysaccharide Complex 150 Mg Capsule) 150 mgPO Q48H [facility] Stop: 12/12/23 15:29 Last Admin: 12/13/22 07:50 Dose: Not Given Sennosides (Sennosides 8.6 Mg Tablet) 2 tab PO DAILY@12 PRN PRN Reason: If no BM in 2 days Stop: 12/13/23 11:59 Sodium Chloride (Sodium Chloride 0.9 % 10 Ml Syringe) 0 ml IV-PUSH PRN PRN PRN Reason: Flush Stop: 12/12/23 18:41 Valsartan (Valsartan 160 Mg Tablet) 160 mg PO DAILY [facility] Stop: 12/13/23 08:59 Last Admin: 12/13/22 10:01 [...] % (Auto) 49.3 Lymph % (Auto) 36.9 [place] % (Auto) 9.9 Eos % (Auto) 2.7 Baso % (Auto) 1.2 Nucleat RBC Rel Count 0.1 Neut # (Auto) 3.3 Lymph # (Auto) 2.5 [place] # (Auto) 0.7 Eos # (Auto) 0.2 [...] 3 weeks Expected Discharge Destination: Home Rehabilitation [facility]: 01.2 Primary Diagnosis: Ischemic left brain stroke To have patient become more independent and to return home. Medical/ Functional Prognosis: Good Anticipated Functional Outcomes/Goals and Interventions: 1.Therapy Functional Outcome/Goal: Anticipate independent bed mobility Anticipated interventions: Physician management, PT, OT, BOTTLE HOUSE QUALITY CONTROL TECHNICIAN, , Dietitian, RehabNursing, Case management 2. Therapy Functional Outcome/Goal: Anticipate independent for transfers Anticipated interventions: Physician management, PT, OT, BOTTLE HOUSE QUALITY CONTROL TECHNICIAN, Case management, Dietitian, Rehab Nursing 3. Therapy Functional Outcome/Goal: Anticipate independent ambulation Anticipated interventions: Physician management, PT, OT, BOTTLE HOUSE QUALITY CONTROL TECHNICIAN Case management, Dietitian, Rehab Nursing 4.Therapy Functional Outcome/Goal: Anticipate independent self-care Anticipated interventions: Physician management, PT, OT, BOTTLE HOUSE QUALITY CONTROL TECHNICIAN, Case management, Dietitian, Rehab Nursing 5.Therapy Functional Outcome/Goal: Anticipate independent functional communication / swallowing Anticipated interventions: Physician management, PT, OT, BOTTLE HOUSE QUALITY CONTROL TECHNICIAN, Case management, Dietitian, Rehab Nursing Required Therapy [...] additional therapy on as needed basis. Comments: BOTTLE HOUSE QUALITY CONTROL TECHNICIAN to evaluate and treat patient?s cognition, language and communication skills, assess swallow function. Other: Dietitian, Rehab nursing, Wound, P&O, Neuropsychology as needed RATIONALE FOR IRF ADMISSION: Patient has both medical and functional complexities that require 24 hour daily monitoring and intervention from Hydrographical Technical Officer as well as other consulting physicians including internal medicine as well as 24 hour daily quality control auditor nursing - for medical safe / optimal management. Patient requires interdisciplinary therapy team rehabilitation care including OT, PT, BOTTLE HOUSE QUALITY CONTROL TECHNICIAN, SW, Psychology, Rehab Nursing, requires and can [...] equipment to enhance the patient's a functional mandaen Ensure adequate nutrition and hydration Sleep: No concerns. Pain: No issues. Discharge planning: Home with in 7 to 10 days. I spent greater than 35 minutes for services, including aqjd-fx-zvmt encounter with the patient, discussion of the case, plan of care, and exam; and oejbble-lu-yrdr activities, such as reviewing pertinent wig sales consultant documentation, recent therapy notes, laboratory and radiology studies, and discussion of case with care team including physician, nursing, egg caser, and therapists. More than 50 % of time was spent on patient/family counseling or coordination ofcare. Plan: I completed a substantive portion of this encounter, the medical decision makingportion of this note in its entirety, including Allied health note review, nursing note review, wig sales consultant note review, discussion with nursing and case management, and more than 50% of my time was spent on counseling and coordination of care, time spent 75 minutes Patient was personally seen by me, Dr. Sen, on the day of encounter, within 24hours of rehab admission, reviewed the history and the relevant portions of the chart, including current orders, allied health and wig sales consultant notes, labs/imaging and performed garner elements of exam and I formulated the plan of care and facilitated the medical decision making. In addition to above-Goal BP 140-160s with intracranial atherosclerosis. Seizureprecautions. Documented By: Janice Altamirano APRN 12/13/22 1 014 Signed By: <Electronically signed by JASMIN Altamirano> 12/13/22 1120 <Electronically signed by Jose Martin Sen MD> 12/13/22 5636 [facility] Work Phone: [phone] 914-259610-17-2023 Consult note Author Santosh Rivera [facility] December 12, 2022 2:19pm Note Date/Time December 12, 2022 2 :11pm [facility] [address] [place] [address] Physiatry (Rehab) Consult Note Signed Patient: Viraj Doherty MR#: [id number] : 1955 Acct:[id number] Age/Sex: 67 / M Adm Date: 3 Loc: Room: [address] [place] [address] Type: ADM IN Attending Dr: Davey Harding [...] [facility]ares[facility] who presented to [facility] following a generalized seizure witnessed by the [...] negative unless noted below or in HPI [facility] Medical History CVA (cerebral vascular accident) HTN [...] of left thalamic CVA who presents to [facility] IRF following hospitalization for new left MCA CVA and seizure disorder. He has continued impaired mobility and impaired independence with ADLs and IADLs requiring PT/OT/BOTTLE HOUSE QUALITY CONTROL TECHNICIAN 5-7 days/week 3 hours/day to maximize safety [...] supervision is both reasonable and necessary, including sgzu-xa-ffpv visits at least 3 days/week with the [...] Allied health note review, nursing note review, wig sales consultant note review, discussion with nursing and case management, and more than 50% of my time was spent on counseling and coordination of care, time spent 65 minutes Patient was personally seen by me, Dr. Rivera, on the day of encounter, reviewed the history and the relevant portions of the chart, including current orders, allied health and wig sales consultant notes, labs/imaging and performed garner elements of exam and I formulated the plan of care and facilitated the medical decision making. Documented By: Santosh Rivera MD 1410 Signed By: <Electronically signed by Santosh Rivera MD> 12/12/22 1419 [facility] Work Phone: [phone]) 980-766010-17-2023 Progress note Author Davey Harding [facility] December 12, 2022 1:27pm Note Date/Time December 12, 2022 1 :27pm [facility] [address] [place] [address] Hospitalist Progress Note Signed Patient: Viraj Doherty MR#: [id number] : 1955 Acct:[id number] Age/Sex: 67 / M Adm Date: 3 Loc: Room: [address] [place] [address] Type: ADM IN Attending Dr: Davey Harding [...] 12/10/22 09:00 12/12/22 10:14 Aspirin 81 Mg Tablet. PO 12/10/23 08:59 [...] levels pending. Documented By: Davey Harding MD 12/12/221324 Signed By: <Electronically signed by Davey Harding MD> 12/12/221326 [facility] Work Phone: [phone] Discharge summary Author Davey Harding [facility] December 12, 2022 1:25pm Note Date/Time December 11, 2022 2 :52pm [facility] [address] [place] [address] Discharge Summary Signed Patient: Viraj Doherty MR#: [id number] : 1955 Acct:[id number] Age/Sex: 67 / M Adm Date: 3 Loc: Room: [address] [place] [address]: Davey Harding MD Copies to: [...] % (Auto) 58.7, Lymph % (Auto) 30.3, [place] % (Auto) 7.5, Eos % (Auto) 2.3, Baso % (Auto) 1.2, Nucleat RBC Rel Count 0.1, Neut # (Auto) 4.7, Lymph # (Auto) 2.4, [place] # (Auto) 0.6, Eos # (Auto) 0.2, [...] Discharge Plan Discharge Plan Patient Disposition: Rehab [facility] Activity: Other Comment: Please follow seizure precautions [...] 40 mg subcut Q14D Qty: 0 0RF mzlhihdmbp-hpiieiynq-togxopazf 10-320-25 mg tablet 1 tab PO DAILY [...] restart this. Follow Up: [facility] [Outside] - 12/26/22 9:00 am Documented By: Davey Harding MD 12/11/22 1448 Signed By: <Electronically signed by Davey Harding MD> 12/12/22 1325 [facility] Work Phone: [phone] 581-603810-16-2023 Progress note Author Jose David Aponte [facility] December 11, 2022 3:31pm Note Date/Time December 11, 2022 3 :31pm [facility] [address] [place] [address] Neurology Progress Note Signed Patient: Viraj Doherty MR#: [id number] : 1955 Acct:[id number] Age/Sex: 67 / M Adm Date: 3 Loc: Room: [address] [place] [address] Type: ADM IN Attending Dr: Davey Harding [...] rapidly alternating movements. No limb dysmetria with tfbhoc-cqij-bcnxbt testing. DATA REVIEW: -CT head without acute [...] outpatient. Documented By: Jose David Aponte DO 12/11/22 09 Signed By: <Electronically signed by Jose David Aponte DO> 12/11/22 1531 [facility] Work Phone: [phone] 580-627710-16-2023 Progress note Author Davey aHrding [facility] December 11, 2022 3:09pm Note Date/Time December 11, 2022 3 :09pm [facility] [address] [place] [address] Hospitalist Progress Note Signed Patient: Viraj Doherty MR#: [id number] : 1955 Acct:[id number] Age/Sex: 67 / M Adm Date: 3 Loc: Room: 7C0034-8 Type: ADM IN Attending Dr: Davey Harding [...] 09:00 12/11/22 09:51 Aspirin 81 Mg Tablet.Dr PO 12/10/23 08:59 [...] <Electronically signed by Davey Harding MD> 12/11/22 1509 [facility] Work Phone: 1(601) 489-688110-16-2023 Progress note Author Mindi Juan [facility] December 10, 2022 10:03pm Note Date/Time December 10, 2022 9 :59pm [facility] [address] [place] [address] Hospitalist Progress Note Signed Patient: Viraj Doherty MR#: [id number] : 1955 Acct:[id number] Age/Sex: 67 / M Adm Date: 3 Loc: Room: 4Y3355-6 Type: ADM IN Attending Dr: Mindi Juan [...] Laboratory work up and Imaging studies reviewed resistor testing machine operator - reviewed EKG - personally reviewed by [...] 12/10/22 09:00 12/10/22 09:10 Aspirin 81 Mg Tablet.Dr PO 12/10/23 08:59 81 mg DAILY LEVON Administration Atorvastatin Calcium 80 mg 12/10/22 21:00 Atorvastatin 80 Mg Tablet PO 12/10/23 20:59 QPM LEVON Clopidogrel Bisulfate 75 mg 12/10/22 09:00 12/10/22 [...] <Electronically signed by Mindi Juan MD> 12/10/222202 [facility] Work Phone: [phone] Consult note Author Jose David Aponte [facility] December 10, 2022 3:17pm Note Date/Time December 10, 2022 1 0:51am [facility] [address] [place] [address] Neurology Consult Note Signed Patient: Viraj Doherty MR#: [id number] : 1955 Acct:[id number] Age/Sex: 67 / M Adm Date: 3 Loc: Room: [address] [place] [address] Type: ADM IN Attending Dr: Mindi Juan MD Copies to: DO Marilyn Abbott MD Ruta Semaskiene, MD~ HPI Consult Date: 12/10/22 Radar Mechanic: Jose David Aponte DO [facility] Medical History CVA (cerebral vascular accident) HTN [...] rapidly alternating movements. No limb dysmetria with gjqzqc-qoei-jsebbu testing. DATA REVIEW: -CT head without acute [...] signed by Jose David Aponte DO> 12/10/22 1519 [facility] Work Phone: [phone] History and physical note Author Ton Wilkinson [facility] December 10, 2022 12:15am Note Date/Time December 09, 2022 1 1:30pm [facility] [address] [place] [address] Hospitalist H&P Signed Patient: Viraj Doherty MR#: [id number] : 1955 Acct:[id number] Age/Sex: 67 / M Adm Date: 3 Loc: 4C Room: 0H4639-2 Type: ADM IN Attending Dr: Ton Wilkinson MD Copies to: MD Ton Millan MD~ HPI DATE OF EXAMINATION: 12/09/22 CHIEF COMPLAINT: Seizure HISTORY OF PRESENT ILLNESS: This is a 67-year-old male with recent history of thalamic CVA who had a witnessed seizure today and was [facility]. The patient had a witnessed generalized seizure by his . No prior history of seizure. Deniesany chest pain headache visual changes or no neurologic symptoms. Noncontrast CT of the head did not show any acute changes. The patient was admitted to [facility] for further management Review of Systems Review of Systems All other systems reviewed & are negative unless noted below or in HPI [facility] Medical History CVA (cerebral vascular accident) HTN [...] 2 Documented By: Ton Wilkinson MD 12/09/22 2430 Signed By: <Electronically signed by Ton Wilkinson MD> 12/10/22 0015 [facility] Work Phone: [phone] 106-872709-19-2023 Progress note Author Jose Martin Sen [facility] November 14, 2022 10:36am Note Date/Time November 14, 2022 10:36am [facility] [address] [place] [address] Physiatry(Rehab) Progress Note Signed Patient: Viraj Doherty MR#: [id number] : 1955 Acct:[id number] Age/Sex: 67 / M Adm Date: 3 Loc: 5T Room: 3F7129-6 Type: ADM IN Attending Dr: Jose Martin [...] Case was discussed between ER physician and [place] interventional radiology who requested the patient stay [...] day by day. 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 PO 11/03/23 08:59 81 mg DAILY LEVON Administration Atorvastatin Calcium 80 mg 11/02/22 21:00 11/13/22 20:52 Atorvastatin 80 Mg Tablet PO 11/02/23 20:59 80 mg QPM LEVON Administration Bisacodyl 10 mg 11/02/22 15:00 Bisacodyl 10 Mg Supp.Rect NJ 11/02/23 14:59 DAILY PRN Constipation Clopidogrel Bisulfate 75 mg 11/03/22 09:00 11/14/22 09:10 Clopidogrel Bisulfate 75 Mg Tablet PO 11/03/23 08:59 75 mg DAILY LEVON Administration Docusate Sodium 100 mg 11/02/22 15:00 Docusate 100 Mg Capsule PO 11/02/23 14:59 BID PRN Constipation Docusate Sodium 283 mg 11/02/22 15:00 Docusate Enema 283 Mg/5 Ml Enema NJ 11/02/23 14:59 DAILY PRN Constipation Enoxaparin Sodium [...] hypertensive urgency with systolic blood pressures in [id number] Continue with his current antihypertensive regimen and [...] trazodone. DVT prophylaxis: Continue Functional status: Impaired. PT/OT/BOTTLE HOUSE QUALITY CONTROL TECHNICIAN as ordered Discharge planning: Home 11/14/22 I spent greater than 35 minutes for services, including jdxb-zm-pcbz encounter with the patient, discussion of the case, plan of care, and exam; and rjsmyuj-gm-isxk activities, such as reviewing pertinent wig sales consultant documentation, recent therapy notes, laboratory and radiology studies, and discussion of case with care team including physician, nursing, egg caser, and therapists. More than 50 % of time was spent on patient/family counseling or coordination ofcare. Documented By: Jose Martin Sen MD 11/14/221034 Signed By: <Electronically signed by Jose Martin Sen MD> 11/14/221035 [facility] Work Phone: 1(600) 367-139209-18-2023 Progress note Author Jose Martin Sen [facility] November 13, 2022 12:08pm Note Date/Time November 11, 2022 11:02am [facility] [address] [place] [address] Physiatry(Rehab) Progress Note Signed Patient: Viraj Doherty MR#: [id number] : 1955 Acct:[id number] Age/Sex: 67 / M Adm Date: 3 Loc: Room: [address] [place] [address] Type: ADM IN Attending Dr: Jose Martin [...] Case was discussed between ER physician and [place] intervention[facility] radiology who requested the patient stay [...] day by day. 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 [...] Objective <Janice Altamirano APRN - Last Filed: 11/11/22 11:02> Labs 11/08/22 [...] 11/10/22 21:20 Atorvastatin 80 Mg Tablet PO 09/06/24 20:59 80 mg QPM LEVON Administration Bisacodyl 10 mg 11/02/22 15:00 Bisacodyl 10 Mg Supp.Rect NJ 11/02/23 14:59 DAILY PRN Constipation Clopidogrel Bisulfate 75 mg 11/03/22 09:00 11/11/22 09:27 Clopidogrel Bisulfate 75 Mg Tablet PO 11/03/23 08:59 75 mg DAILY LEVON Administration Docusate Sodium 100 mg 11/02/22 15:00 Docusate 100 Mg Capsule PO 11/02/23 14:59 BID PRN Constipation Docusate Sodium 283 mg 11/02/22 15:00 Docusate Enema 283 Mg/5 Ml Enema NJ 11/02/23 14:59 DAILY PRN Constipation Enoxaparin Sodium [...] mg DAILY LEVON Administration Assessment/Plan <Janice Altamirano, NUTRITION COORDINATOR - Last Filed: 11/11/22 11:02> Assessment/Plan (1) [...] hypertensive urgency with systolic blood pressures in [id number] Continue with his current antihypertensive regimen and [...] trazodone. DVT prophylaxis: Continue Functional status: Impaired. PT/OT/BOTTLE HOUSE QUALITY CONTROL TECHNICIAN as ordered Discharge planning: Home next week, tentatively 11/14/22 I spent greater than 15 minutes for services, including lzfk-ws-ncqe encounter with the patient, discussion of the case, plan of care, and exam; and xbbiaqb-nx-mfna activities, such as reviewing pertinent wig sales consultant documentation, recent therapy notes, laboratory and radiology studies, and discussion of case with care team including physician, nursing, egg caser, and therapists. More than 50 % of [...] hypertensive urgency with systolic blood pressures in [id number] Continue with his current antihypertensive regimen and [...] the chart, including currentorders, allied health and wig sales consultant notes, labs/imaging and plan of care as above. Documented By: Janice Altamirano APRN 11/11/22 1 059 Signed By: <Electronically signed by JASMIN Altamirano> 11/11/22 1102 <Electronically signed by Jose Martin Sen MD> 11/13/22 1214 [facility] Work Phone: 1(224) 684-201909-18-2023 Progress note Author Jose Martin Sen [facility] November 13, 2022 12:07pm Note Date/Time November 09, 2022 12:58pm [facility] [address] [place] [address] Physiatry(Rehab) Progress Note Signed Patient: Viraj Doherty MR#: [id number] : 1955 Acct:[id number] Age/Sex: 67 / M Adm Date: 3 Loc: Room: [address] [place] [address] Type: ADM IN Attending Dr: Jose Martin [...] Case was discussed between ER physician and [place] intervention[facility] radiology who requested the patient stay [...] day by day. 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 [...] Name Narinderq PRN Reason Stop Dose Admin Acetaminophen 500 [...] mg 11/02/22 15:00 Bisacodyl 10 Mg Supp.Rect NJ 11/02/23 14:59 DAILY PRN Constipation Clopidogrel Bisulfate 75 mg 11/03/22 09:00 11/09/22 09:10 Clopidogrel Bisulfate 75 Mg Tablet PO 11/03/23 08:59 75 mg DAILY LEVON Administration Docusate Sodium 100 mg 11/02/22 15:00 Docusate 100 Mg Capsule PO 11/02/23 14:59 BID PRN Constipation Docusate Sodium 283 mg 11/02/22 15:00 Docusate Enema 283 Mg/5 Ml Enema NJ 11/02/23 14:59 DAILY PRN Constipation Enoxaparin Sodium [...] 08:59 320 mg DAILY LEVON Administration Assessment/Plan <Janiceclaritza Altamirano APRN - Last Filed: 11/09/22 13:00> Assessment/Plan (1) [...] hypertensive urgency with systolic blood pressures in [id number] Continue with his current antihypertensive regimen and [...] trazodone. DVT prophylaxis: Continue Functional status: Impaired. PT/OT/BOTTLE HOUSE QUALITY CONTROL TECHNICIAN as ordered Discharge planning: Home next week, tentatively 11/14/22 I spent greater than 15 minutes for services, including kuyg-vf-avge encounter with the patient, discussion of the case, plan of care, and exam; and ztqoslr-aa-uqca activities, such as reviewing pertinent wig sales consultant documentation, recent therapy notes, laboratory and radiology studies, and discussion of case with care team including physician, nursing, egg caser, and therapists. More than 50 % of [...] hypertensive urgency with systolic blood pressures in [id number] Continue with his current antihypertensive regimen and [...] Allied health note review, nursing note review, wig sales consultant note review, discussion with nursing and case management, and more than 50% of my time was spent on counseling and coordination of care, time spent 25 minutes Patient was personally seen by me, Dr. Sen, on the day of encounter, reviewed the history and the relevant portions of the chart, including current orders, allied health and wig sales consultant notes, labs/imaging and performed garner elements of exam and I formulated the plan of care and facilitated the medical decision making. Documented By: Janice Altamirano APRN 11/09/22 1 251 Signed By: <Electronically signed by JASMIN Altamirano> 11/09/22 1300 <Electronically signed by Jose Martin Sen MD> 11/13/22 0535 [facility] [facility] Work Phone: 1(196) 210-608709-13-2023 Progress note Author Jose Martin Sen [facility] November 08, 2022 11:51am Note Date/Time November 08, 2022 11:51am [facility] [address] [place] [address] Physiatry(Rehab) Progress Note Signed Patient: Viraj Doherty MR#: [id number] : 1955 Acct:[id number] Age/Sex: 67 / M Adm Date: 3 Loc: Room: 0B3801-2 Type: ADM IN Attending Dr: Jose Martin [...] Case was discussed between ER physician and [place] interventional radiology who requested the patient stay [...] day by day. 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 [...] % (Auto) 63.8 Lymph % (Auto) 21.8 [place] % (Auto) 12.9 Eos % (Auto) 0.4 Baso % (Auto) 1.1 Nucleat RBC Rel Count 0.1 Neut # (Auto) 4.9 Lymph # (Auto) 1.7 [place] # (Auto) 1.0 H Eos # (Auto) 0.0 Baso # (Auto) 0.1 PHA Creatinine Clear 63.70 Sodium 136 Potassium 3.5 Chloride 100 Carbon Dioxide 28.8 Anion Gap 10.7 BUN 28 H Creatinine 1.13 Est GFR (CKD-EPI) > 60.0 Glucose 105 H Calcium 9.4 Urine Color Yellow Urine Appearance Clear Urine pH 5.5 Ur Specific [place] 1.014 Urine Protein Negative Urine Glucose (UA) [...] % (Auto) 56.5 Lymph % (Auto) 28.3 [place] % (Auto) 13.4 Eos % (Auto) 0.9 Baso % (Auto) 0.9 Nucleat RBC Rel Count 0.1 Neut # (Auto) 5.3 Lymph # (Auto) 2.7 [place] # (Auto) 1.3 H Eos # (Auto) 0.1 Baso # (Auto) 0.1 PHA Creatinine Clear 66.04 Sodium 137 Potassium 3.5 Chloride 103 Carbon Dioxide 26.8 Anion Gap 10.7 BUN 27 H Creatinine 1.09 Est GFR (CKD-EPI) > 60.0 Glucose 104 H Calcium 9.3 Urine Color Urine Appearance Urine pH Ur Specific [place] Urine Protein Urine Glucose (UA) Urine Ketones [...] 11/03/22 09:00 11/08/22 09:50 Aspirin 81 Mg Tablet. PO 11/03/23 08:59 81 mg DAILY LEVON Administration Atorvastatin Calcium 80 mg 11/02/22 21:00 11/07/22 20:23 Atorvastatin 80 Mg Tablet PO 11/02/23 20:59 80 mg QPM LEVON Administration Bisacodyl 10 mg 11/02/22 15:00 Bisacodyl 10 Mg Supp.Rect NJ 11/02/23 14:59 DAILY PRN Constipation Clopidogrel Bisulfate 75 mg 11/03/22 09:00 11/08/22 09:50 Clopidogrel Bisulfate 75 Mg Tablet PO 11/03/23 08:59 75 mg DAILY LEVON Administration Docusate Sodium 100 mg 11/02/22 15:00 Docusate 100 Mg Capsule PO 11/02/23 14:59 BID PRN Constipation Docusate Sodium 283 mg 11/02/22 15:00 Docusate Enema 283 Mg/5 Ml Enema NJ 11/02/23 14:59 DAILY PRN Constipation Enoxaparin Sodium [...] hypertensive urgency with systolic blood pressures in [id number] Continue with his current antihypertensive regimen and [...] trazodone. DVT prophylaxis: Continue Functional status: Impaired. PT/OT/BOTTLE HOUSE QUALITY CONTROL TECHNICIAN as ordered Discharge planning: Home next week, tentatively 11/14/22 Plan: I completed a substantive portion of this encounter, the medical decision makingportion of this note in its entirety, including Allied health note review, nursing note review, wig sales consultant note review, discussion with nursing and case management, and more than 50% of my time was spent on counseling and coordination of care, time spent 30 minutes Patient was personally seen by me, Dr. Sen, on the day of encounter, reviewed the history and the relevant portions of the chart, including current orders, allied health and wig sales consultant notes, labs/imaging and performed garner elements of exam and I formulated the plan of care and facilitated the medical decision making. Documented By: Jose Martin Sen MD 11/08/22 1149 Signed By: <Electronically signed by Jose Martin Sen MD> 11/08/22 1151 [facility] Work Phone: 1([phone]) 972-440309-13-2023 Progress note Author Nu Nur [facility] November 08, 2022 9:11am Note Date/Time November 07, 2022 4:12pm [facility] [address] [place] [address] Hospitalist Progress Note Signed Patient: Viraj Doherty MR#: [id number] : 1955 Acct:[id number] Age/Sex: 67 / M Adm Date: 3 Loc: 5T Room: [address] [place] [address] Type: ADM IN Attending Dr: Jose Martin [...] mg 11/02/22 15:00 Bisacodyl 10 Mg Supp.Rect NJ 11/02/23 14:59 DAILY PRN Constipation Clopidogrel Bisulfate 75 mg 11/03/22 09:00 11/07/22 09:32 Clopidogrel Bisulfate 75 Mg Tablet PO 11/03/23 08:59 75 mg DAILY LEVON Administration Docusate Sodium 100 mg 11/02/22 15:00 Docusate 100 Mg Capsule PO 11/02/23 14:59 BID PRN Constipation Docusate Sodium 283 mg 11/02/22 15:00 Docusate Enema 283 Mg/5 Ml Enema NJ 11/02/23 14:59 DAILY PRN Constipation Enoxaparin Sodium [...] 3 1609 Signed By: <Electronically signed by KULWANT Becker> 11/07/22 1624 <Electronically signed by Nu Nur MD> 11/08/22 0911 [facility] Work Phone: [phone] 102-963709-12-2023 Progress note Author Jose Martin Sen [facility] November 07, 2022 11:59am Note Date/Time November 07, 2022 10:25am [facility] [address] [place] [address] Physiatry(Rehab) Progress Note Signed Patient: Viraj Doherty MR#: [id number] : 1955 Acct:[id number] Age/Sex: 67 / M Adm Date: 3 Loc: 5T Room: 2Q0756-1 Type: ADM IN Attending Dr: Jose Martin [...] Case was discussed between ER physician and [place] interventional radiology who requested the patient stay [...] day by day. 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 [...] mg 11/02/22 15:00 Bisacodyl 10 Mg Supp.Rect NJ 11/02/23 14:59 DAILY PRN Constipation Clopidogrel Bisulfate 75 mg 11/03/22 09:00 11/07/22 09:32 Clopidogrel Bisulfate 75 Mg Tablet PO 11/03/23 08:59 75 mg DAILY LEVON Administration Docusate Sodium 100 mg 11/02/22 15:00 Docusate 100 Mg Capsule PO 11/02/23 14:59 BID PRN Constipation Docusate Sodium 283 mg 11/02/22 15:00 Docusate Enema 283 Mg/5 Ml Enema NJ 11/02/23 14:59 DAILY PRN Constipation Enoxaparin Sodium [...] hypertensive urgency with systolic blood pressures in [id number] Continue with his current antihypertensive regimen and [...] -K improved, 3.8 today. -Diet as per BOTTLE HOUSE QUALITY CONTROL TECHNICIAN and dietitian. -Monitor BP goal ~160 SBP [...] trazodone. DVT prophylaxis: Continue Functional status: Impaired. PT/OT/BOTTLE HOUSE QUALITY CONTROL TECHNICIAN as ordered Discharge planning: Home next week, tentatively 11/14/22/ Plan: I completed a substantive portion of this encounter, the medical decision makingportion of this note in its entirety, including Allied health note review, nursing note review, wig sales consultant note review, discussion with nursing and case management, and more than 50% of my time was spent on counseling and coordination of care, time spent 30 minutes Patient was personally seen by me, Dr. Sen, on the day of encounter, reviewed the history and the relevant portions of the chart, including current orders, allied health and wig sales consultant notes, labs/imaging and performed garnre elements of exam and I formulated the plan of care and facilitated the medical decision making. Documented By: Jose Martin Sen MD 11/07/22 1025 Signed By: <Electronically signed by Jose Martin Sen MD> 11/07/22 6631 [facility] Work Phone: [phone]) [phone] Progress note Author Jose Martin Sen [facility] November 06, 2022 12:00pm Note Date/Time November 06, 2022 11:16am [facility] [address] [place] [address] Physiatry(Rehab) Progress Note Signed Patient: Viraj Doherty MR#: [id number] : 1955 Acct:[id number] Age/Sex: 67 / M Adm Date: 3 Loc: Room: [address] [place] [address] Type: ADM IN Attending Dr: Jose Martin [...] Case was discussed between ER physician and [place] interventional radiology who requested the patient stay [...] day by day. 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 [...] 16 152/72 H 95 Room Air 11/06/22 10:02 11/06/22 10:02 11/06/22 10:02 11/06/22 10:02 11/06/22 10:02 11/06/22 10:11 Narrative: General: Awake, A&O x 3, [...] Name Narinderq PRN Reason Stop Dose Admin Acetaminophen 500 [...] mg 11/02/22 15:00 Bisacodyl 10 Mg Supp.Rect NJ 11/02/23 14:59 DAILY PRN Constipation Clopidogrel Bisulfate 75 mg 11/03/22 09:00 11/06/22 09:59 Clopidogrel Bisulfate 75 Mg Tablet PO 11/03/23 08:59 75 mg DAILY LEVON Administration Docusate Sodium 100 mg 11/02/22 15:00 Docusate 100 Mg Capsule PO 11/02/23 14:59 BID PRN Constipation Docusate Sodium 283 mg 11/02/22 15:00 Docusate Enema 283 Mg/5 Ml Enema NJ 11/02/23 14:59 DAILY PRN Constipation Enoxaparin Sodium 40 mg 11/04/22 10:00 11/06/22 09:59 Enoxaparin 40 Mg/0.4 Ml Syringe SUBCUT [...] hypertensive urgency with systolic blood pressures in [id number] Continue with his current antihypertensive regimen and [...] Optimize DVT prophylaxis: Continue Functional status: Impaired. PT/OT/BOTTLE HOUSE QUALITY CONTROL TECHNICIAN as ordered Discharge planning: Home next week. Plan: I completed a substantive portion of this encounter, the medical decision makingportion of this note in its entirety, including Allied health note review, nursing note review, wig sales consultant note review, discussion with nursing and case management, and more than 50% of my time was spent on counseling and coordination of care, time spent 30 minutes Patient was personally seen by me, Dr. Sen, on the day of encounter, reviewed the history and the relevant portions of the chart, including current orders, allied health and wig sales consultant notes, labs/imaging and performed garner elements of exam and I formulated the plan of care and facilitated the medical decision making. Documented By: Jose Martin Sen MD 11/06/22 8518 Signed By: <Electronically signed by Jose Martin Sen MD> 11/06/22 1200 [facility] Work Phone: 1([phone]) 374-170909-09-2023 Progress note Author Jose Martin Sen [facility] November 04, 2022 10:52am Note Date/Time November 04, 2022 10:52am [facility] [address] [place] [address] Physiatry(Rehab) Progress Note Signed Patient: Viraj Doherty MR#: [id number] : 1955 Acct:[id number] Age/Sex: 67 / M Adm Date: 3 Loc: 5T Room: [address] [place] [address] Type: ADM IN Attending Dr: Jose Martin [...] Case was discussed between ER physician and [place] interventional radiology who requested the patient stay [...] day by day. 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 PO 11/03/23 08:59 81 mg DAILY LEVON Administration Atorvastatin Calcium 80 mg 11/02/22 21:00 11/03/22 20:23 Atorvastatin 80 Mg Tablet PO 11/02/23 20:59 80 mg QPM LEVON Administration Bisacodyl 10 mg 11/02/22 15:00 Bisacodyl 10 Mg Supp.Rect NJ 11/02/23 14:59 DAILY PRN Constipation Clopidogrel Bisulfate 75 mg 11/03/22 09:00 11/04/22 08:39 Clopidogrel Bisulfate 75 Mg Tablet PO 11/03/23 08:59 75 mg DAILY LEVON Administration Docusate Sodium 100 mg 11/02/22 15:00 Docusate 100 Mg Capsule PO 11/02/23 14:59 BID PRN Constipation Docusate Sodium 283 mg 11/02/22 15:00 Docusate Enema 283 Mg/5 Ml Enema NJ 11/02/23 14:59 DAILY PRN Constipation Enoxaparin Sodium [...] hypertensive urgency with systolic blood pressures in [id number] This was slowly lowered during his inpatient [...] Optimize DVT prophylaxis: Continue Functional status: Impaired. PT/OT/BOTTLE HOUSE QUALITY CONTROL TECHNICIAN as ordered Discharge planning: Home 1-2 weeks, pending progress. Plan: I completed a substantive portion of this encounter, the medical decision makingportion of this note in its entirety, including Allied health note review, nursing note review, wig sales consultant note review, discussion with nursing and case management, and more than 50% of my time was spent on counseling and coordination of care, time spent 30 minutes Patient was personally seen by me, Dr. Sen, on the day of encounter, reviewed the history and the relevant portions of the chart, including current orders, allied health and wig sales consultant notes, labs/imaging and performed garner elements of exam and I formulated the plan of care and facilitated the medical decision making. Documented By: Jose Martin Sen MD 11/04/221049 Signed By: <Electronically signed by Jose Martin Sen MD> 11/04/221051 [facility] Work Phone: [phone]) [phone] Consult note Author Sara Osorio [facility] November 03, 2022 6:45pm Note Date/Time November 03, 2022 2:03pm [facility] [address] [place] [address] Hospitalist Consult Note Signed with Addgloria Patient: Viraj Doherty MR#: [id number] : 1955 Acct:[id number] Age/Sex: 67 / M Adm Date: 3 Loc: Room: [address] [place] [address] Type: ADM IN Attending Dr: Jose Martin Sen MD Copies to: Sara Osorio, MD Jose Martin Hickey MD~ ADDENDUM1 18:44- stools studies still pending [...] stroke. Patient admitted to inpatient rehab unit. [facility] medicine hasbeen consulted for medical management of essential HTN. [...] ER physician discussed with stroke team in [place] who did not recommend TNK as patient was outside the window and was recommended for admission for MRI and neurology evaluation with the commencement of DAPT therapy and statin therapy. Patient was subsequently stabilized and admitted to the inpatient rehab unit. Patient per patient's was admitted to [facility] 2 years prior with uncontrolled hypertension and [...] except as mentioned elsewhere in the documentation. [facility] Medical History CVA (cerebral vascular accident) HTN [...] mg 11/02/22 15:00 Bisacodyl 10 Mg Supp.Rect NJ 11/02/23 14:59 DAILY PRN Constipation Clopidogrel Bisulfate 75 mg 11/03/22 09:00 11/03/22 09:01 Clopidogrel Bisulfate 75 Mg Tablet PO 11/03/23 08:59 75 mg DAILY LEVON Administration Docusate Sodium 100 mg 11/02/22 15:00 Docusate 100 Mg Capsule PO 11/02/23 14:59 BID PRN Constipation Docusate Sodium 283 mg 11/02/22 15:00 Docusate Enema 283 Mg/5 Ml Enema NJ 11/02/23 14:59 DAILY PRN Constipation Enoxaparin Sodium [...] % (Auto) 64.6, Lymph % (Auto) 21.6, [place] % (Auto) 12.2, Eos % (Auto) 0.8, Baso % (Auto) 0.8, Nucleat RBC Rel Count 0.0, Neut # (Auto) 8.9 H, Lymph # (Auto) 3.0, [place] # (Auto) 1.7 H, Eos # (Auto) [...] hypertensive urgency with systolic blood pressures in [id number] (5) Nonadherence to medication: (6) Intracranial atherosclerosis: [...] <Electronically signed by Rohan Levy DO> 11/03/22 1557 [facility] Work Phone: [phone] History and physical note Author Jose Martin Sen [facility] November 03, 2022 12:59pm Note Date/Time November 03, 2022 9:33am [facility] [address] [place] [address] Physiatry (Rehab) H&P Signed Patient: Viraj Doherty MR#: [id number] : 1955 Acct:[id number] Age/Sex: 67 / M Adm Date: 3 Loc: Room: [address] [place] [address] Type: ADM IN Attending Dr: Jose Martin [...] Case was discussed between ER physician and [place] interventional radiology who requested the patient stay [...] day by day. 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 [...] Filed: 11/03/22 12:59> Etiologic Diagnosis/Impairment Group: Stroke [facility] <John Hodge DO, RES - Last Filed: [...] 10 Mg Tablet) 10 mg PO DAILY [facility] Stop: 11/03/23 08:59 Last Admin: 11/03/22 09:01 Dose: 10 mg Aspirin (Aspirin 81 Mg Tablet.) 81 mg PO DAILY LEVON Stop: 11/03/23 08:59 Last Admin: 11/03/22 09:01 Dose: 81 mg Atorvastatin Calcium (Atorvastatin 80 Mg Tablet) 80 mg PO QPM LEVON Stop: 11/02/23 20:59 Last Admin: 11/02/22 21:25 Dose: 80 mg Bisacodyl (Bisacodyl 10 Mg Supp.Rect) 10 mg NJ DAILY PRN PRN Reason: Constipation Stop: 11/02/23 14:59 Clopidogrel Bisulfate (Clopidogrel Bisulfate 75 Mg Tablet) 75 mg PO DAILY LEVON Stop: 11/03/23 08:59 Last Admin: 11/03/22 09:01 Dose: 75 mg Docusate Sodium (Docusate 100 Mg Capsule) 100 mg PO BID PRN PRN Reason: Constipation Stop: 11/02/23 14:59 Docusate Sodium (Docusate Enema 283 Mg/5 Ml Enema) 283 mg NJ DAILY PRN PRN Reason: Constipation Stop: 11/02/23 14:59 Hydrochlorothiazide (Hydrochlorothiazide 25 Mg Tablet) 25 mg PO DAILY [facility] Stop: 11/03/23 08:59 Last Admin: 11/03/22 09:01 [...] 320 Mg Tablet) 320 mg PO DAILY LEVON Stop: 11/03/23 08:59 [...] % (Auto) 64.6 Lymph % (Auto) 21.6 [place] % (Auto) 12.2 Eos % (Auto) 0.8 Baso % (Auto) 0.8 Nucleat RBC Rel Count 0.0 Neut # (Auto) 8.9 H Lymph # (Auto) 3.0 [place] # (Auto) 1.7 H Eos # (Auto) [...] mobility Anticipated interventions: Physician management, PT, OT, BOTTLE HOUSE QUALITY CONTROL TECHNICIAN, , Dietitian, RehabNursing, Case management 2. Therapy Functional Outcome/Goal: Anticipate independent transfers Anticipated interventions: Physician management, PT, OT, BOTTLE HOUSE QUALITY CONTROL TECHNICIAN, Case management, Dietitian, Rehab Nursing 3. Therapy Functional Outcome/Goal: Anticipate independent ambulation Anticipated interventions: Physician management, PT, OT, BOTTLE HOUSE QUALITY CONTROL TECHNICIAN Case management, Dietitian, Rehab Nursing 4.Therapy Functional Outcome/Goal: Anticipate independent self-care Anticipated interventions: Physician management, PT, OT, BOTTLE HOUSE QUALITY CONTROL TECHNICIAN, Case management, Dietitian, Rehab Nursing 5.Therapy Functional Outcome/Goal: Anticipate independent functional communication and swallowing Anticipated interventions: Physician management, PT, OT, BOTTLE HOUSE QUALITY CONTROL TECHNICIAN, Case management, Dietitian, Rehab Nursing Required Therapy [...] additional therapy on as needed basis. Comments: BOTTLE HOUSE QUALITY CONTROL TECHNICIAN to evaluate and treat patient?s cognition, language and communication skills, assess swallow function. Other: Dietitian, Rehab nursing, Wound, P&O, Neuropsychology as needed RATIONALE FOR IRF ADMISSION: Patient has both medical and functional complexities that require 24 hour daily monitoring and intervention from Hydrographical Technical Officer as well as other consulting physicians including internal medicine as well as 24 hour daily quality control auditor nursing - for medical safe / optimal management. Patient requires interdisciplinary therapy team rehabilitation care including OT, PT, BOTTLE HOUSE QUALITY CONTROL TECHNICIAN, SW, Psychology, Rehab Nursing, requires and can [...] hypertensive urgency with systolic blood pressures in [id number] This was slowly lowered during his inpatient [...] hypertensive urgency with systolic blood pressures in [id number] This was slowly lowered during his inpatient [...] DVT prophylaxis: Add lovenox Functional status: Imapired. Pt/OT/BOTTLE HOUSE QUALITY CONTROL TECHNICIAN as ordered Discharge planning: Home 1-2 weeks Plan: I completed a substantive portion of this encounter, the medical decision makingportion of this note in its entirety, including Allied health note review, nursing note review, wig sales consultant note review, discussion with nursing and case management, and more than 50% of my time was spent on counseling and coordination of care, time spent 70 minutes Patient was personally seen by me, Dr. Sen, on the day of encounter, reviewed the history and the relevant portions of the chart, including current orders, allied health and wig sales consultant notes, labs/imaging and performed garner elements of exam and I formulated the plan of care and facilitated the medical decision making. Patient was personally seen by me on the day of encounter, reviewed the history and performed garner elements of exam and formulated the plan of care and confirmedthe resident physician note, as above Documented By: John Hodge DO, RES 11/03/22 092 9 Signed By: <Electronically signed by DO FLOYD Hodge> 11/03/22 1026 <Electronically signed by Jose Martin Sen MD> 11/03/22 1259 [facility] Work Phone: 1(802) 474-238609-06-2023 Progress note Author Davey Harding [facility] November 01, 2022 2:15pm Note Date/Time November 01, 2022 11:38am [facility] [address] [place] [address] Hospitalist Progress Note Signed Patient: Viraj Doherty MR#: [id number] : 1955 Acct:[id number] Age/Sex: 67 / M Adm Date: 3 Loc: Room: [address] [place] [address] Type: ADM IN Attending Dr: Davey Harding [...] of care and confirmed it with the resident/student/MACHINE HAND. Patient resting in bed, is frustrated that [...] Juan PRN Reason Stop Dose Admin Acetaminophen 1,000 [...] occlusions which were discussed with neurology in [place]. Will continue asa/plavix/statin - MRI showed evidence [...] signed by DO FLOYD Bear> 11/01/22 1138 [facility] Work Phone: 1([phone]) 403-984509-06-2023 Progress note Author Jose Martin Sen [facility] November 01, 2022 10:34am Note Date/Time November 01, 2022 10:32am [facility] [address] [place] [address] Physiatry(Rehab) Progress Note Signed Patient: Viraj Doherty MR#: [id number] : 1955 Acct:[id number] Age/Sex: 67 / M Adm Date: 3 Loc: 4 Room: [address] [place] [address] Type: ADM IN Attending Dr: Davey Harding [...] % (Auto) 68.3 Lymph % (Auto) 23.0 [place] % (Auto) 7.7 Eos % (Auto) 0.3 Baso % (Auto) 0.7 Nucleat RBC Rel Count 0.6 H Neut # (Auto) 9.2 H Lymph # (Auto) 3.1 [place] # (Auto) 1.0 H Eos # (Auto) [...] MPV Neut % (Auto) Lymph % (Auto) [place] % (Auto) Eos % (Auto) Baso % (Auto) Nucleat RBC Rel Count Neut # (Auto) Lymph # (Auto) [place] # (Auto) Eos # (Auto) Baso # [...] complexity that cannot be best managed at [facility] level of care and requires at least 3 times weekly encounters with dependency case manager for medical management and for plan of care review / changes. Plan: I completed a substantive portion of this encounter, the medical decision makingportion of this note in its entirety, including Allied health note review, nursing note review, wig sales consultant note review, discussion with nursing and case management, and more than 50% of my time was spent on counseling and coordination of care, time spent 20 minutes Patient was personally seen by me, Dr. Sen, on the day of encounter, reviewed the history and the relevant portions of the chart, including current orders, allied health and wig sales consultant notes, labs/imaging and performed garner elements of exam and I formulated the plan of care and facilitated the medical decision making. Documented By: Jose Martin Sen MD 11/01/221030 Signed By: <Electronically signed by Jose Martin Sen MD> 11/01/221033 [facility] Work Phone: [phone]) [phone] Consult note Author Jose Martin Sen [facility] October 31, 2022 2:43pm Note Date/Time October 31, 2022 11:39am [facility] [address] [place] [address] Physiatry (Rehab) Consult Note Signed Patient: Viraj Doherty MR#: [id number] : 1955 Acct:[id number] Age/Sex: 67 / M Adm Date: 3 Loc: Room: [address] [place] [address] Type: ADM IN Attending Dr: Davey Harding [...] negative unless noted below or in HPI [facility] Medical History CVA (cerebral vascular accident) HTN [...] % (Auto) 58.1 Lymph % (Auto) 31.1 [place] % (Auto) 9.0 Eos % (Auto) 1.0 Baso % (Auto) 0.8 Nucleat RBC Rel Count 0.2 Neut # (Auto) 5.5 Lymph # (Auto) 3.0 [place] # (Auto) 0.9 H Eos # (Auto) [...] Color Urine Appearance Urine pH Ur Specific [place] Urine Protein Urine Glucose (UA) Urine Ketones [...] % (Auto) 64.0 Lymph % (Auto) 25.2 [place] % (Auto) 9.1 Eos % (Auto) 0.7 Baso % (Auto) 1.0 Nucleat RBC Rel Count 0.6 H Neut # (Auto) 6.5 Lymph # (Auto) 2.6 [place] # (Auto) 0.9 H Eos # (Auto) 0.1 Baso # (Auto) 0.1 Monocyte Dist Width PT INR APTT PHA Creatinine Clear Sodium Potassium Chloride Carbon Dioxide Anion Gap BUN Creatinine Est GFR (CKD-EPI) Glucose Calcium Total Creatine Kinase 133 Troponin I High Sens 12.1 Urine Color Yellow Urine Appearance Clear Urine pH 6.0 Ur Specific [place] > 1.050 H Urine Protein Trace H [...] MPV Neut % (Auto) Lymph % (Auto) [place] % (Auto) Eos % (Auto) Baso % (Auto) Nucleat RBC Rel Count Neut # (Auto) Lymph # (Auto) [place] # (Auto) Eos # (Auto) Baso # (Auto) Monocyte Dist Width PT INR APTT PHA Creatinine Clear 84.38 Sodium 138 Potassium 3.2 L Chloride 105 Carbon Dioxide 23.8 Anion Gap 12.4 BUN 12 Creatinine 0.88 Est GFR (CKD-EPI) > 60.0 Glucose 110 H Calcium 9.3 Total Creatine Kinase Troponin I High Sens Urine Color Urine Appearance Urine pH Ur Specific [place] Urine Protein Urine Glucose (UA) Urine Ketones [...] complexity that cannot be best managed at [facility] level of care and requires at least 3 times weekly encounters with dependency case manager for medical management and for plan of care review / changes. Plan: I completed a substantive portion of this encounter, the medical decision makingportion of this note in its entirety, including Allied health note review, nursing note review, wig sales consultant note review, discussion with nursing and case management, and more than 50% of my time was spent on counseling and coordination of care, time spent 65 minutes Patient was personally seen by me, Dr. Sen, on the day of encounter, reviewed the history and the relevant portions of the chart, including current orders, allied health and wig sales consultant notes, labs/imaging and performed garner elements of exam and I formulated the plan of care and facilitated the medical decision making. Documented By: Jose Martin Sen MD 10/31/22 1139 Signed By: <Electronically signed by Jose Martin Sen MD> 10/31/22 1443 [facility] Work Phone: 1(616) 793-847109-05-2023 Consult note Author Jose David Aponte [facility] October 31, 2022 12:34pm Note Date/Time October 31, 2022 11:23am [facility] EN[facility] [address] [place] [address] Neurology Consult Note Signed Patient: Viraj Doherty MR#: [id number] : 1955 Acct:[id number] Age/Sex: 67 / M Adm Date: 3 Loc: Room: [address] [place] [address] Type: ADM IN Attending Dr: Davey Harding MD Copies to: DO Davey Abbott MD Douglas M Hoy, MD~ HPI Consult Date: 10/31/22 Radar Mechanic: Jose David Aponte DO [facility] Medical History (Updated 10/30/22 @ 21:57 by [...] Delio Tran M.D.10/31/2022 7:33 AM Dictation Location: [facility]--[address] 10/30/22 19:16 IMPRESSION: No acute intracranial findings. Bilateral remote basal ganglia lacunar type infarctions. May consider follow-up assessment with MRI. Diffuse atrophy and chronic small vessel ischemic changes. [facility] preliminary report completed 10/30/2022 at 7:34 PM Impression dictated by: Delio Tran M.D.10/31/2022 7:35 AM Dictation Location: [facility]--12 Head CTA 10/30/22 19:17 IMPRESSION: 1 cm [...] Delio Tran M.D.10/31/2022 7:42 AM Dictation Location: [facility]-12 Therapy Recommendations Therapy Recommendations: PT Recommendations PT [...] Bites/Sips,Pacing Strategies /Slow-Rate ST Recommended Services at 24/ Supervision Discharge Assessment/Plan (1) Acute CVA (cerebrovascular accident): Code(s): I63.9 - Cerebral infarction, unspecified Status: Acute Plan CONSULT REASON: CVA HPI: 67-year-old man with history of hypertension not taking medication and with history of a lacunar infarction presents for evaluation of slurred speech and hewas dragging his right leg and his right limbs seem weak and incoordinated. 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 Etiology is small vessel disease caused bysevere [...] Documented By: Jose David Aponte DO 10/31/22 1114 Signed By: <Electronically signed by Jose David Aponte DO> 10/31/22 1234 [facility] Work Phone: 1([phone]) 477-617309-05-2023 Progress note Author Davey Harding [facility] October 31, 2022 12:34pm Note Date/Time October 31, 2022 11:45am [facility] [address] [place] [address] Hospitalist Progress Note Signed Patient: Viraj Doherty MR#: [id number] : 1955 Acct:[id number] Age/Sex: 67 / M Adm Date: 3 Loc: 4 Room: 9V3189-6 Type: ADM IN Attending Dr: Davey Harding MD Copies to: ~ Date of Service: 10/31/2022 Subjective Subjective Narrative: Attending note: I saw the patient personally on the day of encounter. I reviewed the relevant history, and performed the agrner elements of the physical examination. I reviewedthe relevant laboratory workup, radiological studies and the current treatment plan. I formulated the plan of care and confirmed it with the resident/student/MACHINE HAND. Patient resting in chair. Does not quite [...] occlusions which were discussed with neurology in [place]. Will continue asa/plavix/statin - MRI ordered, echo [...] MD> 10/31/22 1234 <Electronically signed by DO RES Dunia Bear> 10/31/22 1145 [facility] Work Phone: [phone]) 940-877609-05-2023 History and physical note Author John Garcia [facility] October 30, 2022 10:00pm Note Date/Time October 30, 2022 10:00pm [facility] [address] [place] [address] Hospitalist H&P Signed Patient: Viraj Doherty MR#: [id number] : 1955 Acct:[id number] Age/Sex: 67 / M Adm Date: 3 Loc: Room: [address] [place] [address] Type: ADM IN Attending Dr: John Garcia DO Copies to: MD John Millan DO~ HPI DATE OF EXAMINATION: 10/30/22 CHIEF COMPLAINT: slurred speech HISTORY OF PRESENT ILLNESS: 67 y/o M with PMHx of HTN, hx of CVA who presents with complaint of slurred speech which started last night. Pt's states that he was admitted in [place] about 2 years ago with uncontrolled HTN [...] negative unless noted below or in HPI [facility] Medical History (Updated 10/30/22 @ 21:57 by [...] % (Auto) 31.1 % (.) 10/30/22 19:12 [place] % (Auto) 9.0 % (.) 10/30/22 19:12 Eos % (Auto) 1.0 % (.) 10/30/22 19:12 Baso % (Auto) 0.8 % (.) 10/30/22 19:12 Nucleat RBC Rel Count 0.2 /100 WBC (0-0.5) 10/30/22 19:12 Neut # (Auto) 5.5 x10E3/uL (1.8-7.7) 10/30/22 19:12 Lymph # (Auto) 3.0 x10E3/uL (1.00-4.8) 10/30/22 19:12 [place] # (Auto) 0.9 x10E3/uL (0.0-0.8) H 10/30/22 [...] occlusions which were discussed with neurology in [place]. Will continue asa/plavix/statin - MRI ordered - [...] signed by John Garcia DO> 10/30/22 2200 [facility] Work Phone: 1(390) 298-280507-12-2023 Evaluation + Plan note Diagnostic Tests Pending * Quantiferon-TB Plus (Client Incubated) 09/06/22 [facility]07-13-2022 Evaluation + Plan note Diagnostic Tests Pending * Quantiferon-TB Plus (Client Incubated) 09/07/21 [facility] Author Davey Harding [facility] November 02, 2022 1:45pm Note Date/Time November 02, 2022 1:45pm [facility] EN[facility] [address] [place] [address] Discharge Summary Signed Patient: Viraj Doherty MR#: [id number] : 1955 Acct:[id number] Age/Sex: 67 / M Adm Date: 3 Loc: Room: [address] [place] [address]: Davey Harding MD Copies to: [...] occlusions in the M1 and M2 segments. [place] stroke center recommended conservative management with dual [...] % (Auto) 71.4, Lymph % (Auto) 18.5, [place] % (Auto) 9.2, Eos % (Auto) 0.1, Baso % (Auto) 0.8, Nucleat RBC Rel Count 0.2, Neut # (Auto) 10.2 H, Lymph # (Auto) 2.6, [place] # (Auto) 1.3 H, Eos # (Auto) 0.0, Baso # (Auto) 0.1 Exam Physical Exam Vital Signs: Temp Pulse Resp BP Pulse Ox O2 Del Method 98.4 F 83 16 142/72 H 97 Room Air 11/02/22 12:29 11/02/22 12:29 11/02/22 12:29 11/02/22 12:29 11/02/22 12:29 11/02/22 12:29 Discharge Plan Discharge Plan Patient Disposition: Rehab [facility] Activity: No Activity Restriction Diet: Diabetic and Low-Sodium Additional Instructions: [facility] will call you with a follow up with a neurovascular doctor. You are schedule with [facility] on November 30 at 3:30pm at [address] [facility] room [address] Mike. Rehab to [...] 81 mg PO DAILY Qty: 0 0RF vtlpcliiws-taqrkbwdl-ubzsjgvpm 10-320-25 mg tablet 1 tab PO DAILY [...] Rehab.) Documented By: Davey Harding MD 11/02/22 1341 Signed By: <Electronically signed by Davey Harding MD> 11/02/22 1345 [facility] Work Phone: Discharge summary Author Jose Martin Sen [facility] November 15, 2022 6:11pm Note Date/Time November 15, 2022 12:04pm [facility] [address] [place] [address] Discharge Summary Signed Patient: Viraj Doherty MR#: [id number] : 1955 Acct:[id number] Age/Sex: 67 / M Adm Date: 3 Loc: Room: 4V9606-[address]: Jose Martin Sen MD Copies to: MD Janice Millan APRN Joseph Riley, MD~ Providers Date of Discharge: 11/15/22 Discharging [...] Case was discussed between ER physician and [place] interventional radiology who requested the patient stay [...] Outpatient Physical, Occupational, and Speech Therapy at [facility] (Address: [address] [place] [address] , [place], [place]/ ). The order for this has [...] mg subcut Q14D Qty: 0 0RF Continued jqwddcyzec-egtmugspb-wbookjoma 10-320-25 mg tablet 1 tab PO DAILY [...] by Jose Martin Sen MD> 11/15/22 1811 [facility] Work Phone: Evaluation note* Diagnosis Onset Date Resolution Status Acute CVA (cerebrovascular accident) acute Hypertensive urgency acute [facility] Work Phone: Evaluation note* Diagnosis Onset Date Resolution Status Acute CVA (cerebrovascular accident) acute Cerebrovascular accident (CVA) of left thalamus acute Hyperlipidemia acute Hypertensive urgency acute Intracranial atherosclerosis acute Nonadherence to medication a cute Oropharyngeal dysphagia acut e Right hemiplegia acute [facility] Work Phone: Evaluation note* Diagnosis Onset Date Resolution Status Acute [...] Right hemiplegia acute Tobacco abuse disorder acute [facility] Work Phone: Evaluation note* Diagnosis Onset Date Resolution Status Acute [...] acut e Right hemiplegia acute Seizure acute [facility] Work Phone: Evaluation note* Diagnosis Onset Date Resolution Status Acute [...] Right-sided sensory deficit present acute Seizure acute [facility] Work Phone: History and physical note Author John Garcia [facility] October 30, 2022 10:00pm Note Date/Time October 30, 2022 10:00pm [facility] [address] [place] [address] Hospitalist H&P Signed Patient: Viraj Doherty MR#: [id number] : 1955 Acct:[id number] Age/Sex: 67 / M Adm Date: 3 Loc: 4 Room: [address] [place] [address] Type: ADM IN Attending Dr: John Garcia DO Copies to: MD John Millan, DO~ HPI DATE OF EXAMINATION: 10/30/22 CHIEF COMPLAINT: slurred speech HISTORY OF PRESENT ILLNESS: 67 y/o M with PMHx of HTN, hx of CVA who presents with complaint of slurred speech which started last night. Pt's states that he was admitted in [place] about 2 years ago with uncontrolled HTN [...] negative unless noted below or in HPI [facility] Medical History (Updated 10/30/22 @ 21:57 by [...] % (Auto) 31.1 % (.) 10/30/22 19:12 [place] % (Auto) 9.0 % (.) 10/30/22 19:12 Eos % (Auto) 1.0 % (.) 10/30/22 19:12 Baso % (Auto) 0.8 % (.) 10/30/22 19:12 Nucleat RBC Rel Count 0.2 /100 WBC (0-0.5) 10/30/22 19:12 Neut # (Auto) 5.5 x10E3/uL (1.8-7.7) 10/30/22 19:12 Lymph # (Auto) 3.0 x10E3/uL (1.00-4.8) 10/30/22 19:12 [place] # (Auto) 0.9 x10E3/uL (0.0-0.8) H 10/30/22 [...] occlusions which were discussed with neurology in [place]. Will continue asa/plavix/statin - MRI ordered - [...] signed by John Garcia DO> 10/30/22 2200 [facility] Work Phone: Hospital course Narrative No data available for this section [facility] No data available for this section [facility] Discharge instructions Additional Instructions [facility] will call you with a follow up with a neurovascular doctor. You are schedule with [facility] on November 30 at 3:30pm at [address] [facility] [address] Mike. Rehab to manage: - PT/OT/ST to eval and treat - Please follow previous Speech therapy recommendations - Monitor VS routine - Dx. HTN - Neuro assessments - Dx. CVA - Routine skin assessments/care -- Every 3 days - Mepilex border foam to coccyx for added protection.[facility] Work Phone: Hospital Discharge instructions Additional [...] Outpatient Physical, Occupational, and Speech Therapy at [facility] (Address: [address] [place], [place] [address], [place], [place]/ ). The order for this has [...] office to inform them prior to your appointment.[facility] Work Phone: Hospital Discharge instructions Additional Instructions REHAB TO MANAGE: PT/OT to eval and treat Monitor VS per protocol Monitor Neuro. assessment--CVA Maintain seizure precautions Care to be [facility] Work Phone: Hospital Discharge instructions Additional Instructions -Diet: low fat, low cholesterol. -Ambulate as tolerated. No driving unless cleared by physician, may ride in car. You will have Outpatient Therapy at [facility] ([phone] ext. [phone]). The order for this has been sent [...] office to inform them prior to your appointment.[facility] Work Phone: Progress note No data available for this section [facility] Summary Purpose Family History No Family History [...] section and content) DATE CREATED AUTHOR 06/11/2018 [facility] DATE CREATED AUTHOR AUTHOR'S ORGANIZ ATION 10/23/2018 [facility] DATE CREATED AUTHOR AUTHOR'S ORGANIZ ATION 12/27/2022 [facility] DATE CREATED AUTHOR AUTHOR'S ORGANIZ ATION 06/03/2023 [facility] DATE CREATED AUTHOR AUTHOR'S ORGANIZ ATION 07/21/2023 [facility] Care Team (unrecognized sect ion and content) Team Status: Active Member Role Status Dates Marilyn Patrick MD Primary Care Provider Active Team Status: Inactive Member Role Status Dates Nolberto Hernandez MD Emergency Provider Active Marilyn Patrick MD Primary Care Provider Active John Garcia DO Admit Provider Active Davey Harding MD Attending Provider Active Jose David Aponte DO Other Provider Active Jose Martin Sen MD Other Provider Active Team Status: Active Member Role Status Dates Nolberto Hernandez MD Emergency Provider Active Marilyn Patrick MD Primary Care Provider Active John Garcia DO Admit Provider, Attending Provid er Active Team Status: Inactive Member Role Status Dates Marilyn Patrick MD Primary Care Provider Active Jose Martin Sen MD Admit Provider, Attending Provider Concepción Dos Santoser , RN Other Provider Active Aggie Martines , DARON Other Provider Active Cayla Brandon , RN Other Provider Active Yoli Mckeon , RN Other Provider Active Kindra Benitez , DARON Other Provider Active Charlotte Gupta , DARON Other Provider Active Nu Nur MD Other Provider Active Yennifer Miller , NUTRITION COORDINATOR Other Provider Active Stephanie Thomas , DO [...] Jeong MD Other Provider Active Rhonda Addison , MACHINE HAND-C Other Provider Active Franklyn Mariano MD Other Provider Active Foster Patterson MD Other Provider Active Axel Wolfe MD Other Provider Active Obey Dawn MD Other Provider Active Maty Giles , DO Other Provider Active Hilario Bojorquez , DO Other Provider Active Garrett Kim , DO Other Provider Active Aziza Walker , NUTRITION COORDINATOR Other Provider Active Alex Weems , DO Other Provider Active Quynh Galvan MD Other Provider Active Linh Hernandez NUTRITION COORDINATOR Other Provider Active Sara Osorio , NUTRITION COORDINATOR Other Provider Active Tamara Loco MD Other Provider Active Guzman Garcia MD Other Provider Active Estephania Lepe NUTRITION COORDINATOR Other Provider Active Destiny Quinteros , DARON Other Provider Active Team Status: Active Member [...] DO Other Provider Active Johana Mayers , NUTRITION COORDINATOR Other Provider Active Misti Joel , MACHINE HAND-C Other Provider Active Ivon Yoo , NUTRITION COORDINATOR-ORCHARD SPRAYER-C Other Provider Active Davey Harding MD Attending Provider Active Santosh Rivera MD Other Provider Active Team Status: Inactive Member Role Status Dates Marilyn Patrick MD Primary Care Provider Active Jose Martin Sen MD Admit Provider, Attending Provider A ctive Jodi Carlisle , DARON Other Provider Active Aggie Martines , DARON Other Provider Active Cayla Brandon , DARON Other Provider Active Yoli Mckeon , DARON Other Provider Active Kindra Benitez , DARON Other Provider Active Charlotte Gupta , DARON Other Provider Active Nu Nur MD Other Provider Active Yennifer Miller , NUTRITION COORDINATOR Other Provider Active Stephanie Thomas , DO Other Provider Active Pasquale Gillespie MD Other Provider Active Rohan Levy , DO Other Provider Active Davey Harding MD Other Provider Active Mindi Juan MD Other Provider Active Anuradha Parmar , NUTRITION COORDINATOR Other Provider Active Ryan Palacio MD Other Provider Active Herbert May MD Other Provider Active Kaushal Mata MD Other Provider Active Fidelia Hernández MD Other Provider Active Kevin Adrian , DO Other Provider Active Ton Wilkinson MD Other Provider Active Deangelo Jeong MD Other Provider Active Rhonda Addison , MACHINE HAND-C Other Provider Active Franklyn Mariano MD Other Provider Active Foster Patterson MD Other Provider Active Axel Wolfe MD Other Provider Active Obey Dawn MD Other Provider Active Maty Giles , DO Other Provider Active Hilario Bojorquez , DO Other Provider Active Garrett Kim , DO Other Provider Active Aziza Walker NUTRITION COORDINATOR Other Provider Active Alex Weems , DO Other Provider Active Quynh Galvan MD Other Provider Active Linh Hernandez NUTRITION COORDINATOR Other Provider Active Sara Osorio , NUTRITION COORDINATOR Other Provider Active Tamara Loco MD Other Provider Active Guzman Garcia MD Other Provider Active Estephania Lepe , NUTRITION COORDINATOR Other Provider Active Destiny Quinteros RN Other [...] BE BASED ON THE PRIMARY CLINICAL RECORDS. [employer] provides no warranty or guarantee of the accuracy or completeness of information in this document.
[2023-08-02 11:52] LABS: Chol HDL Ratio 4.8; Cholesterol 183 mg/dL (<=200); HDL Cholesterol 38 mg/dL (40-60); Triglycerides 145 mg/dL (<=150)
== END 2023-08-02 10:01 | disposition home or self-care (01) ==
LOC: LAB 10:01
PROVIDERS: PCP Family Medicine; Visit Provider Nurse Practitioner Family
DX: I63.312 Cerebral infarction due to thrombosis of left middle cerebral artery (principal)
CPT/HCPCS: 36415; 80061

== ENCOUNTER 2023-12-17 10:21 | Outpatient (OUT) | payer MEDICARE, SELFPAY ==
--- OUTSIDE RECORDS SUMMARY | 2023-12-17 10:39 | XMS_ITS | CCD ---
Author Organization [facility] Care Team Providers Care [employer] Science Teacher Name Role Phone PHYSICIAN, DEFAULT Admitting Unavailable PHYSICIAN, DEFAULT Attending Unavailable HOY, MARILYN Primary Care Unavailable HOY, MARILYN Admitting Unavailable HOY, MARILYN Attending Unavailable HOY, MARILYN Consulting Unavailable ANGUS MCFARLANE Consulting Unavailable DELIO BOYER Consulting Unavailable HOY, MARILYN Admitting Unavailable HOY, MARILYN Attending Unavailable HOY, MARILYN Primary Care Unavailable HOY, MARILYN Consulting Unavailable Hoy, Marilyn Primary Care Physician MD Nolberto Hernandez Emergency Provider MD Marilyn Patrick Primary Care Provider DO John Garcia Admit Provider [phone] DO John Garcia Attending Provider MD Davey Harding Attending Provider [...] Other Provider DO Stephanie Thomas Other Provider Jose Miguel, MD Pasquale Other Provider DO Rohan Levy Other Provider MD Davey Harding Other Provider MD Mindi Juan Other Provider Rosita, ANP-BC Anuradha Other Provider MD Ryan Palacio Other Provider MD Herbert May Other Provider MD Kaushal Mata Other Provider MD Fidelia Hernández Other Provider DO Kevin Adrian Other Provider MD Ton Wilkinson Other Provider MD Deangelo Jeong Other Provider Cyn, MAINTENANCE INSTRUCTOR-C Rhonda De La Vega Other Provider [phone] MD Franklyn Mariano Other Provider MD Foster [...] Other Provider MD Angus Block Other Provider [phone] DO Leodan Younger Other Provider Jeronimo ANP- Joanna Other Provider Talib REGISTERED RADIOGRAPHERLianet Sutton Other Provider [phone] VICTOR MANUEL Joel-C Misti Kuo Other Provider JASMIN Yoo-WELT STITCHER-C Ivon Ceja Other Provider [phone] MD Santosh Rivera Other Provider JASMIN Parmar Other Provider [phone] Davey Harding Attending Unavailable Ton Wilkinson Admitting Unavailable Marilyn Patrick Primary Care Unavailable Marie Nicholas Consulting Unavailable Shannan Bergeron Consulting Unavailable Angus Block Consulting Unavailable Leodan Younger Consulting Unavailab Joanna Rehman Consulting Unavailable Jose David Aponte Consulting Unavailable Johana Mayers Consulting Unavailable Misti Joel Consulting Unavailable Ivon Yoo Consulting Unavailable Santosh Rivera Consulting UnavailDavey Dominguez Attending Unavailable Jose David Aponte Consulting Unavailable [...] Miller Consulting Unavailable Stephanie Thomas Consulting Unavailable Pasquale Gillespie Consulting Unavailable Rohan Levy Consulting UnavailDavey Mcgarry Consulting Unavailable Mindi Juan Consulting Unavailable Anuradha Parmar Consulting Unavailcarmen e Wassamm, Marwan Consulting Unavailable Zraik, Herbert Consulting Unavailable Mata, Kaushal Consulting Unavailable Edgar, Safwan Consulting Unavailable Kevin Adrian Consulting Unavailable Jaja, Firas Consulting Unavailable Deangelo Jeong Consulting Unavailable Rhonda Addison Consulting Unavailable Doamekpor, Franklyn E Consulting Unavailab le Leonardo, Foster Consulting Unavailable Wolfe, Axel Consulting Unavailable Nereyda, Obey Consulting Unavailable Maty Giles Consulting Unavailable Hilario Bojorquez Consulting Unavailable Garrett Kim Consulting Unavailable Obgenoveva, Aziza Consulting Unavailable Alex Weems Consulting Unavailable Daromar, Obaydah M Consulting Unavailable Linh Hernandez Consulting Unavailable Sara Osorio Consulting Unavailable Alatoño Alaa Consulting Unavailable Guzman Garcia Consulting Unavailable Estephania Lepe Consulting Unavailable Destiny Quinteros Consulting Unavailable Jose Martin Sen Attending Unavailable Jose Martin Sen Admitting Unavailable aMrilyn Patrick Primary Care Unavailable Jodi Carlisle Consulting Unavailable Aggie Martines Consulting Unavailable Cayla Brandon Consulting Unavailable Yoli Mckeon Consulting Unavailable Kindra Benitez Consulting Unavailable Charlotte Gupta Consulting Unavailable Nu Nur Consulting Unavailable Yennifer Miller Consulting Unavailable Stephanie Thomas Consulting Unavailable Pasquale Gillespie Consulting Unavailable Rohan Levy Consulting UnavailDavey Mcgarry Consulting Unavailable Mindi Juan Consulting Unavailable Anuradha Parmar Consulting Unavailcarmen e Wassamm, Marwan Consulting Unavailable Zraik, Herbert Consulting Unavailable Mata, Kaushal Consulting Unavailable Edgra, Safwan Consulting Unavailable Kevin Adrian Consulting Unavailable Jaja, Evas Consulting Unavailable Deangelo Jeong Consulting Unavailable Rhonda Addison Consulting Unavailable Doamekpor, Franklyn E Consulting Unavailab le Leonardo, Foster Consulting Unavailable Yaneth, Axel Consulting Unavailable Nereyda, Obey Consulting Unavailable Maty Giles Consulting Unavailable Hilario Bojorquez Consulting Unavailable Garrett Kim Consulting Unavailable Obika, Aziza Consulting Unavailable Alex Weems Consulting Unavailable Daromar, Obaydah M Consulting Unavailable Linh Hernandez Consulting Unavailable Sara Osorio Consulting Unavailable Tamara Loco Unavailable Guzman Garcia Consulting Unavailable Estephania Lepe Consulting Unavailable Destiny Quinteros Consulting Unavailable Jose Martin Sen Attending Unavailable Marilyn Patrick Primary Care Unavailable Jose Martin Sen Admitting Unavailable SHANNON JORDAN Admitting Unavailable SHANNON JORDAN Attending Unavailable Kevin DYSON Attending Unavailable Marilyn Patrick Referring Unavailable Unavailable Primary Care Provider UnavailIVON Castrejon Attending Unavailable SHANNON JORDAN Attending Unavailable IVON YOO Attending Unavailable Allergies Allergy Classification Reported Allergen(s) Allergy Type Date of Onset Reaction(s) Facility (1 source) No Known Medication Allergies; Translations: [No Known Medication Allergies] Propensity to adverse reactions (disorder) [facility] Repository Medications Current Medications Medication Drug Class(es) Dates Sig (Normalized) Sig (Original) acetaminophen 500 mg oral tablet (2 sources) Start: 12-19-2022 take 500 mg by mouth every four hours Acetaminophen Active 500 MG PO Q4H 100 December 19, 2022 12:00am Humira (8 sources) Tumor Necrosis Factor Kena Start: 05-04-2023 Humira Refills(s) 0 Start Date: 05/04/23 Status: Ordered Start: 11-14-2022 inject 40 mg by subc utaneous injection every other week Humira Active 40 mg subcut Q14D 0 November 14, 2022 12:00am adalimumab (Humi ra Pen) 40 MG/0.4ML Pen-injector Kit pen-injector Inject 40 mg under the skin every 14 (fourteen) days. Active aspirin 81 mg delayed release oral tablet (11 sources) Platelet Aggregation Inhibitor, Nonsteroidal Anti-inflammatory Drug Start: 05-04-2023 take 1 tablet by mouth once daily aspirin 81 mg Oral EC Tab 81 mg = 1 tab(s), Oral, Daily, Refills(s) 0 Start Date: 05/04/23 Status: Ordered Start: 11-02-2022 End: 12-19-2022 take 81 mg by mouth once daily Aspirin Active 81 MG PO Daily 30 December 19, 2022 12:00am atorvastatin 80 mg oral tablet (11 sources) HMG-CoA Reductase Inhibitor Start: 05-04-2023 take 1 tablet by mouth once daily atorvastatin 80 mg Tab 80 mg = 1 tab(s), Oral, Daily, Refills(s) 0 Start Date: 05/04/23 Status: Ordered Start: 11-02-2022 End: 12-19-2022 take 80 mg by mouth once daily in the evening Atorvastatin Active 80 MG PO Every evening December 19, 2022 12:00am take 1 tablet by benjamin th once daily atorvastatin (Lipitor) 20 MG tablet Take 20 mg by mouth Daily Active B-12 1000 mcg oral tablet (1 source) Start: 05-04-2023 take 1 tablet by mouth once daily B-12 1000 mcg oral tablet 1,000 mcg = 1 tab(s), Oral, Daily, Refills(s) 0 Start Date: 05/04/23 Status: Ordered clopidogrel 75 mg oral tablet (11 sources) [id number] Platelet Inhibitor Start: 05-04-2023 take 1 tablet by mouth once daily clopidogrel (Plavix) 75 MG tablet Take 75 mg by mouth Daily 07/13/2023 Active Start: 11-02-2022 End: 12-19-2022 take 75 mg by mouth once daily Clopidogrel Active 75 M G PO Daily December 19, 2022 12:00am folic acid 0.4 mg / vitamin b12 1 mg sublingual tablet (3 sources) Vitamin B12 Start: 03-30-2023 take 100-5000 ug under the tongue once daily Cobalamin Combinations (B-12) 100-5000 MCG sublingual tablet Take 1 tablet by mouth Daily 03/30/2023 Active levETIRAcetam 500 mg oral tablet (9 sources) Start: 06-21-2023 take 1 tablet by mouth every twelve hours levETIRAcetam (Keppra) 500 MG tablet Indications: Seizure (CMS/HCC) TAKE ONE TABLET BY MOUTH EVERY 12 HOURS 60 tablet 3 06/21/2023 Active Start: 05-04-2023 take 1 tablet by benjamin th twice daily Keppra 500 mg Tab 500 mg = 1 tab(s), Oral, BID, Refills(s) 0 Start Date: 05/04/23 Status: Ordered Start: 12-11-2022 End: 12-19-2022 take 500 mg by mouth twice daily Levetiracetam Active 500 MG PO Twice daily December 19, 2022 12:00am Lisinopril (3 sources) Angiotensin Converting Enzyme Inhibitor LISINOPRIL PO Lisinopril Active polysaccharide iron complex 150 mg oral capsule (6 sources) Start: 05-04-19 take 1 capsule by mouth every other day iron polysaccharide 150 mg Cap 150 mg = 1 cap(s), Oral, Every other day, Refills(s) 0 Start Date: 05/04/23 Status: Ordered Start: 12-11-2022 End: 12-19-2022 Polysaccharide Iron Complex (Ferrex 150) 150 mg iron Capsule Active 150 MG PO Q48H December 19, 2022 12:00am valsartan 160 mg oral tablet (6 sources) Angiotensin 2 Receptor Kena Start: 06-14-2023 valsartan (Diovan) 160 MG tablet Take 80 mg by mouth in the morning and 80 mg before bedtime. 06/14/2023 Active Start: 05-04-2023 take 1 tablet by benjamin th in the morning valsartan (Diovan) 160 MG tablet Take 160 mg by mouth in the morning and 160 mg before bedtime. 06/14/2023 Active Start: 12-19-2022 take 80 mg by mouth [...] [Iron deficiency anemia, unspecified] Onset: 12-13-1912-20-2022 Episodic Deficiency and other anemia (1 source) Anemia 05-04-2023 Episodic Diabetes mellitus without complication (4 sources) Other abnormal glucose; Translations: [Prediabetes] Onset: 08-22-1905-04-2023 Episodic Disorders of lipid metabolism (20 sources) Hyperlipidemia, unspecified; Translations: [Hyperlipidemia] Onset: 08-22-1910-31-2022 Chronic Disorders of lipid metabolism (1 source) Pure hypercholesterolemia, unspecified; Translations: [PURE HYPERCHOLESTEROLEMIA UNSPEC] Onset: 06-13-19 Epilepsy; convulsions (12 sources) Seizure; Translations: [Unspecified convulsions] Onset: 12-13-1912-09-2022 Episodic Essential hypertension (7 sources) Essential (primary) hypertension; Translations: [Hypertensive disorder] Onset: 08-22-1912-13-2022 Chronic Hypertension with complications and secondary hypertension (17 sources) Hypertensive urgency ; Translations: [Hypertensive urgency] Onset: 10-31-1910-30-2022 Chronic Hypertension with complications and secondary hypertension (1 source) Hypertensive emergency; Translations: [HYPERTENSIVE EMERGENCY] Onset: 06-13-19 Late effects of cerebrovascular disease (12 sources) 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; Translations: [Hemiplegia and hemiparesis following cerebral infarction affecting unspecified side] Onset: 07-14-1907-14-2023 Chronic Nonspecific chest pain (1 source) Chest pain, unspecified; Translations: [CHEST PAIN UNSPECIFIED] Onset: 08-22-19 Episodic Other aftercare (2 sources) Patient encounter status; Translations: [Encounter for therapeutic drug level monitoring] 12-12-2023 Episodic Other and ill-defined cerebrovascular disease (8 sources) Cerebral atherosclerosis; Translations: [Cerebral atherosclerosis] Onset: 12-11-1910-31-2022 Chronic Other and ill-defined cerebrovascular disease (13 sources) Cerebral atherosclerosis; Translations: [Cerebral atherosclerosis] Onset: 12-11-1911-02-2022 Chronic Other gastrointestinal disorders (5 sources) Oropharyngeal dysphagia; Translations: [Dysphagia, oropharyngeal phase] 10-31-2022 Episodic Other gastrointestinal disorders (15 sources) Dysphagia, oropharyngeal phase; Translations: [Dysphagia, oropharyngeal phase] Onset: 12-11-1911-02-2022 Episodic Other inflammatory condition of skin (3 sources) Psoriasis vulgaris; Translations: [Psoriasis vulgaris] Onset: 09-07-1909-06-2022 Chronic Other nervous system disorders (4 sources) Dysarthria; Translations: [Dysarthria and anarthria] 12-12-2022 Episodic Other nervous system disorders (6 sources) Dysarthria and anarthria; Translations: [Dysarthria] Onset: 12-11-1912-12-2022 Episodic Other screening for suspected conditions (not mental disorders or infectious disease) (2 sources) Encounter for screening for malignant neoplasm of prostate; Translations: [Encounter for screening for malignant neoplasm of rectum] Onset: 08-22-19 Episodic Paralysis (19 sources) Right hemiplegia; Translations: [Hemiplegia, unspecified affecting right dominant side] Onset: 12-11-1910-31-2022 Chronic Residual codes; unclassified (14 sources) Noncompliance with medication regimen; Translations: [Noncompliance with medication regimen] 10-31-2022 Episodic Residual codes; unclassified (5 sources) Tobacco user; Translations: [Tobacco use] 11-03-2022 [...] Test Name Value Interpretation Reference Range Facility Quantiferon-TB Plus (Client Incubated)on 09-14-2023 Gamma interferon background IA Qn (Bld) 0.07 International_Unit/mL Invalid Interpretation Code [facility] Comment on above: Performed By: #### 1 [id number] #### [facility] [address] [place] [address] M. tuberculosis stim IFN-g by CD4+ CD8+ T-cells corrected for background Qn (Bld) 0.05 International_Unit/mL Invalid Interpretation Code [facility] Comment on above: Performed By: #### 1 [id number] #### [facility] [address] [place] [address] M. tuberculosis stim IFN-g by CD4+ T-cells corrected for background Qn (Bld) 0.07 International_Unit/mL Invalid Interpretation Code [facility] Comment on above: Performed By: #### 1 [id number] #### [facility] [address] [place] [address] M. tuberculosis stim IFN-g Ql (Bld) [Interp] Negative Invalid Interpretation Code Negative [facility] Comment on above: Result Comment: No [...] interferon gamma. Chemiluminescence immunoassay methodology Performed at: [address] [id number] PhD Rex Shirley Performed By: #### 1 [id number] #### [facility] [address] [place] [address] Mitogen stimulated gamma interferon corrected for background Qn (Bld) >10.00 Invalid Interpretation Code [facility] Comment on above: Performed By: #### 1 [id number] #### [facility] [address] [id number] Service comment (Unsp spec) [Interp] Comment Invalid Interpretation Code [facility] Comment on above: Result Comment: Wilmer [...] for the test. Performed By: #### 1 [id number] #### [facility] [address] [place] [address] Lab Reportson 05-07-2023 Lab Reports [id number] Normal [facility] Physician Referralon 024 Physician Referral [id number] Normal [facility] Basic Metabolic Panelon 11-27 Anion gap [Moles/Vol] 9.8 mmol/L Normal 6.0-15.0 [facility] Comment on above: Performed By: #### F ER, [id number], FE and TIBC, MG #### [facility] [address] Calcium [Mass/Vol] 8.7 mg/dL Normal 8.6-10.3 [facility] Comment on above: Performed By: #### F ER, [id number], FE and TIBC, MG #### [facility] [address] [place] [address] Chloride [Moles/Vol] 111 mmol/L High 98-107 [facility] Comment on above: Performed By: #### F ER, [id number], FE and TIBC, MG #### [facility] [address] CO2 [Moles/Vol] 25.7 mmol/L Normal 21.0-31.0 [facility] Comment on above: Performed By: #### F ER, [id number], FE and TIBC, MG #### [facility] [address] Creatinine [Mass/Vol] 0.87 mg/dL Normal 0.70-1.30 [facility] Comment on above: Performed By: #### F ER, [id number], FE and TIBC, MG #### [facility] [address] Creatinine Clr Calc Pharmacy 79.00 [facility] Comment on above: Result Comment: PERF ORMED BY: [place] [address] PATHOLOGIST DELIVERY RN TERESA PATTERSON M.D. Performed By: #### F ER, [id number], FE and TIBC, MG #### [facility] [address] GFR/1.73 sq M.predicted MDRD (S/P/Bld) [Vol rate/Area] mL/min/{1.73_m2} [facility] Comment on above: Performed By: #### F ER, [id number], FE and TIBC, MG #### [facility] [address] Glucose [Mass/Vol] 95 mg/dL Normal 70-100 [facility] Comment on above: Result Comment: [place] Glucose Reference Range is dependent on time and content of last meal. Glucose of more than 200 mg/dL in a nonstressed, ambulatory subject supports the diagnosis of Diabetes Mellitus. ADA recommended reference range Performed By: #### F ER, [id number], FE and TIBC, MG #### [facility] [address] Potassium [Moles/Vol] 3.5 mmol/L Normal 3.5-5.1 [facility] Comment on above: Performed By: #### F ER, [id number], FE and TIBC, MG #### [facility] [address] Sodium [Moles/Vol] 143 mmol/L Normal 136-145 [facility] Comment on above: Performed By: #### F ER, [id number], FE and TIBC, MG #### [facility] [address] Urea nitrogen [Mass/Vol] 16 mg/dL Normal 7-25 [facility] Comment on above: Performed By: #### F ER, [id number], FE and TIBC, MG #### [facility] [address] Basophils Auto (Bld) [#/Vol] Ordered By: Jose Martin Sen on 12-19-2022 Basophils (Bld) [#/Vol] 0.1 10*3/uL 0.0-0.2 [facility] Basophils/100 WBC Auto (Bld) Ordered By: Jose Martin Sen on 12-19-2022 Basophils/100 WBC (Bld) 1.3 % . [facility] Calcium [Mass/volume] in Ser um or PlasmaOrdered By: Jose Martin Sen on 12-19-2022 Calcium [Mass/Vol] 8.7 mg/dL 8.6-10.3 [facility] Carbon dioxide, total [Moles /volume] in Serum or PlasmaOrdered By: Jose Martin Sen on 12-19-2022 CO2 [Moles/Vol] 25.7 mmol/L 21.0-31.0 [facility] Chloride [Moles/volume] in S shani or PlasmaOrdered By: Jose Martin Sen on 12-19-2022 Chloride [Moles/Vol] 111 mmol/L 98-107 [facility] Complete Blood Count Auto Di ffon 12-19-2022 Basophils (Bld) [#/Vol] 0.1 10*3/uL Normal 0.0-0.2 [facility] Comment on above: Result Comment: PERF ORMED BY: [place] [address] PATHOLOGIST DELIVERY RN TERESA PATTERSON M.D. Performed By: #### B MP, CBC #### [address] Basophils/100 WBC (Bld) 1.3 % Normal . [facility] Comment on above: Performed By: #### B MP, CBC #### [place] [address] [place] Eosinophils (Bld) [#/Vol] 0.1 10*3/uL Normal 0.0-0.45 [facility] Comment on above: Performed By: #### B MP, CBC #### [address] Eosinophils/100 WBC (Bld) 2.0 % Normal . [facility] Comment on above: Performed By: #### B MP, CBC #### [address] Erythrocyte distribution width (RBC) [Ratio] 14.1 % Normal 12.0-14.8 [facility] Comment on above: Performed By: #### B MP, CBC #### [address] Hematocrit (Bld) [Volume fraction] 22.7 % Low 38.8-50.0 [facility] Comment on above: Performed By: #### B MP, CBC #### [place] [address] [place] Hemoglobin (Bld) [Mass/Vol] 8.1 g/dL Low 13.0-17.0 [facility] Comment on above: Performed By: #### B MP, CBC #### [address] Lymphocytes (Bld) [#/Vol] 2.1 10*3/uL Normal 1.00-4.8 [facility] Comment on above: Performed By: #### B MP, CBC #### [facility] [address] Lymphocytes/100 WBC (Bld) 33.2 % Normal . [facility] Comment on above: Performed By: #### B MP, CBC #### [facility] [address] MCH (RBC) [Entitic mass] 31.1 pg Normal 27.5-35.2 [facility] Comment on above: Performed By: #### B MP, CBC #### [facility] [address] MCV (RBC) [Entitic vol] 86.6 fL Normal 83.5-101 [facility] Comment on above: Performed By: #### B MP, CBC #### [address] Mean Corpuscular HGB Conc 35.9 g/dL High 32.5-35.6 [facility] Comment on above: Performed By: #### B MP, CBC #### [place] [address] [place] Monocytes (Bld) [#/Vol] 0.6 10*3/uL Normal 0.0-0.8 [facility] Comment on above: Performed By: #### B MP, CBC #### [place] [address] [place] Monocytes/100 WBC (Bld) 9.2 % Normal . [facility] Comment on above: Performed By: #### B MP, CBC #### [facility] [address] Neutrophils (Bld) [#/Vol] 3.4 10*3/uL Normal 1.8-7.7 [facility] Comment on above: Performed By: #### B MP, CBC #### [address] Neutrophils/100 WBC (Bld) 54.3 % Normal . [facility] Comment on above: Performed By: #### B MP, CBC #### [facility] [address] NRBC% 0.0 /100{WBC} Normal 0-0.5 [facility] Comment on above: Performed By: #### B MP, CBC #### [facility] [address] Platelet mean volume (Bld) [Entitic vol] 7.9 fL Normal 6.6-10.1 [facility] Comment on above: Performed By: #### B MP, CBC #### [facility] [address] Platelets (Bld) [#/Vol] 248 10*3/uL Normal 150-450 [facility] Comment on above: Performed By: #### B MP, CBC #### [address] RBC (Bld) [#/Vol] 2.62 10*6/uL Low 3.90-5.[address] [facility] Comment on above: Performed By: #### B MP, CBC #### [address] WBC (Bld) [#/Vol] 6.3 10*3/uL Normal 4.1-10.5 [facility] Comment on above: Performed By: #### B MP, CBC #### [address] Creatinine [Mass/volume] in Serum or PlasmaOrdered By: Jose Martin Sen on 12-19-2022 Creatinine [Mass/Vol] 0.87 mg/dL 0.70-1.30 [facility] Eosinophils Auto (Bld) [#/Vo l]Ordered By: Jose Martin Sen on 12-19-2022 Eosinophils (Bld) [#/Vol] 0.1 10*3/uL 0.0-0.45 [facility] Eosinophils/100 WBC Auto (Bl d)Ordered By: Jose Martin Sen on 12-19-2022 Eosinophils/100 WBC (Bld) 2.0 % . [facility] Erythrocyte distribution wid th Auto (RBC) [Ratio]Ordered By: Jose Martin Sen on 12-19-2022 Erythrocyte distribution width (RBC) [Ratio] 14.1 % 12.0-14.8 [facility] Glucose [Mass/volume] in Ser um or PlasmaOrdered By: Jose Martin Sen on 12-19-2022 Glucose [Mass/Vol] 95 mg/dL 70-100 [facility] Comment on above: ADA recommended refe rence rangeRandom Glucose Reference Range is dependent on time and content of last meal. Glucose of more than 200 mg/dL in a nonstressed, ambulatory subject supports the diagnosis of Diabetes Mellitus. Hematocrit Auto (Bld) [Volum e fraction]Ordered By: Jose Martin Sen on 12-19-2022 Hematocrit (Bld) [Volume fraction] 22.7 % 38.8-50.0 [facility] Hemoglobin [Mass/volume] in BloodOrdered By: Jose Martin Sen on 12-19-2022 Hemoglobin (Bld) [Mass/Vol] 8.1 g/dL 13.0-17.0 [facility] Leukocytes [#/volume] correc khadra for nucleated erythrocytes in Blood by Automated counOrdered By: Jose Martin Sen on 12-19-2022 WBC corrected for nucl RBC Auto (Bld) [#/Vol] 6.3 10*3/uL 4.1-10.5 [facility] Lymphocytes Auto (Bld) [#/Vo l]Ordered By: Jose Martin Sen on 12-19-2022 Lymphocytes (Bld) [#/Vol] 2.1 10*3/uL 1.00-4.8 [facility] Lymphocytes/100 WBC Auto (Bl d)Ordered By: Jose Martin Sen on 12-19-2022 Lymphocytes/100 WBC (Bld) 33.2 % . [facility] MCH Auto (RBC) [Entitic mass ]Ordered By: Jose Martin Sen on 12-19-2022 MCH (RBC) [Entitic mass] 31.1 pg 27.5-35.2 [facility] MCHC Auto (RBC) [Mass/Vol]Or dered By: Jose Martin Sen on 12-19-2022 MCHC (RBC) [Mass/Vol] 35.9 g/dL 32.5-35.6 [facility] MCV Auto (RBC) [Entitic vol] Ordered By: Jose Martin Sen on 12-19-2022 MCV (RBC) [Entitic vol] 86.6 fL 83.5-101 [facility] Monocytes Auto (Bld) [#/Vol] Ordered By: Jose Martin Sen on 12-19-2022 Monocytes (Bld) [#/Vol] 0.6 10*3/uL 0.0-0.8 [facility] Monocytes/100 WBC Auto (Bld) Ordered By: Jose Martin Sen on 12-19-2022 Monocytes/100 WBC (Bld) 9.2 % . [facility] Neutrophils Auto (Bld) [#/Vo l]Ordered By: Jose Martin Sen on 12-19-2022 Neutrophils (Bld) [#/Vol] 3.4 10*3/uL 1.8-7.7 [facility] Neutrophils/100 WBC Auto (Bl d)Ordered By: Jose Martin Sen on 12-19-2022 Neutrophils/100 WBC (Bld) 54.3 % . [facility] No Panel InformationOrdered By: Jose Martin Sen on 12-19-2022 Estimated GFR (CKD-EPI) > 60.0 mL/Min [facility] Creatinine Clearance (Chem 79.00 [facility] Nucleated erythrocytes [Pres ence] in Blood by Automated countOrdered By: Jose Martin Sen on 12-19-2022 Nucleated RBC Auto Ql (Bld) 0.0 /100{WBC} 0-0.5 [facility] Platelet mean volume Auto (B ld) [Entitic vol]Ordered By: Jose Martin Sen on 12-19-2022 Platelet mean volume (Bld) [Entitic vol] 7.9 fL 6.6-10.1 [facility] Platelets Auto (Bld) [#/Vol] Ordered By: Jose Martin Sen on 12-19-2022 Platelets (Bld) [#/Vol] 248 10*3/uL 150-450 [facility] Potassium [Moles/volume] in Serum or PlasmaOrdered By: Jose Martin Sen on 12-19-2022 Potassium [Moles/Vol] 3.5 mmol/L 3.5-5.1 [facility] RBC Auto (Bld) [#/Vol]Ordere d By: Jose Martin Sen on 12-19-2022 RBC (Bld) [#/Vol] 2.62 10*6/uL 3.90-5.[address] [facility] Serum or plasma anion gap de terminationOrdered By: Jose Martin Sen on 12-19-2022 Anion gap [Moles/Vol] 9.8 mmol/L 6.0-15.0 [facility] Sodium [Moles/volume] in Ser um or PlasmaOrdered By: Jose Martin Sen on 12-19-2022 Sodium [Moles/Vol] 143 mmol/L 136-145 [facility] Urea nitrogen [Mass/volume] in Serum or PlasmaOrdered By: Jose Martin Sen on 12-19-2022 Urea nitrogen [Mass/Vol] 16 mg/dL 7-25 [facility] WBC Auto (Bld) [#/Vol]Ordere d By: Jose Martin Sen on 12-19-2022 WBC (Bld) [#/Vol] 6.3 10*3/uL 4.1-10.5 [facility] Basic Metabolic Panelon 11-26 Anion gap [Moles/Vol] 11.5 mmol/L Normal 6.0-15.0 [facility] Comment on above: Performed By: #### B MP, CBC #### [facility] [address] Calcium [Mass/Vol] 9.1 mg/dL Normal 8.6-10.3 [facility] Comment on above: Performed By: #### B MP, CBC #### [facility] [address] [place] [address] [place] Chloride [Moles/Vol] 106 mmol/L Normal 98-107 [facility] Comment on above: Performed By: #### B MP, CBC #### [facility] [address] [place] [id number] [place] CO2 [Moles/Vol] 28.7 mmol/L Normal 21.0-31.0 [facility] Comment on above: Performed By: #### B MP, CBC #### [facility] [address] [place] [id number] [place] Creatinine [Mass/Vol] 1.12 mg/dL Normal 0.70-1.30 [facility] Comment on above: Performed By: #### B MP, CBC #### [facility] [address] [place] [address] [place] Creatinine Clr Calc Pharmacy 61.10 [facility] Comment on above: Result Comment: PERF ORMED BY: [place] [address] PATHOLOGIST DELIVERY RN TERESA PATTERSON M.D. Performed By: #### B MP, CBC #### [facility] [address] [place] [address] [place] GFR/1.73 sq M.predicted MDRD (S/P/Bld) [Vol rate/Area] mL/min/{1.73_m2} [facility] Comment on above: Performed By: #### B MP, CBC #### [place] [address] [place] Glucose [Mass/Vol] 105 mg/dL High 70-100 [facility] Comment on above: Result Comment: [facility] Glucose Reference Range is dependent on time and content of last meal. Glucose of more than 200 mg/dL in a nonstressed, ambulatory subject supports the diagnosis of Diabetes Mellitus. ADA recommended reference range Performed By: #### B MP, CBC #### [place] [address] [place] Potassium [Moles/Vol] 3.2 mmol/L Low 3.5-5.1 [facility] Comment on above: Performed By: #### B MP, CBC #### [place] [address] [place] Sodium [Moles/Vol] 143 mmol/L Normal 136-145 [facility] Comment on above: Performed By: #### B MP, CBC #### [place] [address] [place] Urea nitrogen [Mass/Vol] 25 mg/dL Normal 7-25 [facility] Comment on above: Performed By: #### B MP, CBC #### [place] [address] Magnesiumon 12-14-2022 Magnesium [Mass/Vol] 2.0 mg/dL Normal 1.9-2.7 [facility] Comment on above: Result Comment: PERF ORMED BY: [place] [address] PATHOLOGIST DELIVERY RN TERESA PATTERSON M.D. Performed By: #### B MP, CBC #### [facility] [address] [place] [address] Magnesium [Mass/volume] in S shani or PlasmaOrdered By: Janice Altamirano on 12-14-2022 Magnesium [Mass/Vol] 2.0 mg/dL 1.9-2.7 [facility] Potassiumon 12-14-2022 Potassium [Moles/Vol] 3.5 mmol/L Normal 3.5-5.1 [facility] Comment on above: Result Comment: PERF ORMED BY: [place] [address] PATHOLOGIST DELIVERY RN TERESA PATTERSON M.D. Performed By: #### F ER, [id number], FE and TIBC, MG #### [address] Alanine aminotransferase [En zymatic activity/volume] in Serum or PlasmaOrdered By: Santosh Rivera on 12-13-2022 ALT [Catalytic activity/Vol] 25 U/L 7-52 [facility] Albumin [Mass/volume] in Ser um or Plasma by Bromocresol green (BCG) dye binding methoOrdered By: Santosh Rivera on 12-13-2022 Albumin BCG dye [Mass/Vol] 4.0 g/dL 3.5-5.7 [facility] Alkaline phosphatase [Enzyma tic activity/volume] in Serum or PlasmaOrdered By: Santosh Rivera on 12-13-2022 ALP [Catalytic activity/Vol] 72 U/L 34-104 [facility] Aspartate aminotransferase [ Enzymatic activity/volume] in Serum or PlasmaOrdered By: Santosh Rivera on 12-13-2022 AST [Catalytic activity/Vol] 15 U/L 13-39 [facility] Bilirubin.total [Mass/volume ] in Serum or PlasmaOrdered By: Santosh Rivera on 12-13-2022 Bilirubin [Mass/Vol] 0.6 mg/dL 0.3-1.0 [facility] Complete Blood Count Auto Di ffon 12-13-2022 Basophils (Bld) [#/Vol] 0.1 10*3/uL Normal 0.0-0.2 [facility] Comment on above: Result Comment: PERF ORMED BY: [place] [address] PATHOLOGIST DELIVERY RN TERESA PATTERSON M.D. Performed By: #### B MP, CBC #### [address] Basophils/100 WBC (Bld) 1.2 % Normal . [facility] Comment on above: Performed By: #### B MP, CBC #### [address] Eosinophils (Bld) [#/Vol] 0.2 10*3/uL Normal 0.0-0.45 [facility] Comment on above: Performed By: #### B MP, CBC #### [address] Eosinophils/100 WBC (Bld) 2.7 % Normal . [facility] Comment on above: Performed By: #### B MP, CBC #### [address] Erythrocyte distribution width (RBC) [Ratio] 14.5 % Normal 12.0-14.8 [facility] Comment on above: Performed By: #### B MP, CBC #### [address] Hematocrit (Bld) [Volume fraction] 25.4 % Low 38.8-50.0 [facility] Comment on above: Performed By: #### B MP, CBC #### [address] Hemoglobin (Bld) [Mass/Vol] 9.1 g/dL Low 13.0-17.0 [facility] Comment on above: Performed By: #### B MP, CBC #### [address] Lymphocytes (Bld) [#/Vol] 2.5 10*3/uL Normal 1.00-4.8 [facility] Comment on above: Performed By: #### B MP, CBC #### [address] Lymphocytes/100 WBC (Bld) 36.9 % Normal . [facility] Comment on above: Performed By: #### B MP, CBC #### [address] MCH (RBC) [Entitic mass] 31.5 pg Normal 27.5-35.2 [facility] Comment on above: Performed By: #### B MP, CBC #### [address] MCV (RBC) [Entitic vol] 87.7 fL Normal 83.5-101 [facility] Comment on above: Performed By: #### B MP, CBC #### [address] Mean Corpuscular HGB Conc 35.9 g/dL High 32.5-35.6 [facility] Comment on above: Performed By: #### B MP, CBC #### [address] Monocytes (Bld) [#/Vol] 0.7 10*3/uL Normal 0.0-0.8 [facility] Comment on above: Performed By: #### B MP, CBC #### [address] Monocytes/100 WBC (Bld) 9.9 % Normal . [facility] Comment on above: Performed By: #### B MP, CBC #### [address] Neutrophils (Bld) [#/Vol] 3.3 10*3/uL Normal 1.8-7.7 [facility] Comment on above: Performed By: #### B MP, CBC #### [address] Neutrophils/100 WBC (Bld) 49.3 % Normal . [facility] Comment on above: Performed By: #### B MP, CBC #### [facility] [address] NRBC% 0.1 /100{WBC} Normal 0-0.5 [facility] Comment on above: Performed By: #### B MP, CBC #### [address] Platelet mean volume (Bld) [Entitic vol] 7.8 fL Normal 6.6-10.1 [facility] Comment on above: Performed By: #### B MP, CBC #### [address] Platelets (Bld) [#/Vol] 257 10*3/uL Normal 150-450 [facility] Comment on above: Performed By: #### B MP, CBC #### [address] RBC (Bld) [#/Vol] 2.90 10*6/uL Low 3.90-5.[address] [facility] Comment on above: Performed By: #### B MP, CBC #### [address] WBC (Bld) [#/Vol] 6.7 10*3/uL Normal 4.1-10.5 [facility] Comment on above: Performed By: #### B MP, CBC #### [address] Comprehensive Metabolic Pane nitza 12-13-2022 Albumin [Mass/Vol] 4.0 g/dL Normal 3.5-5.7 [facility] Comment on above: Performed By: #### B MP, CBC #### [place] [address] [place] Albumin/Globulin [Mass ratio] 1.5 {ratio} Normal [facility] Comment on above: Performed By: #### B MP, CBC #### [facility] [address] ALP [Catalytic activity/Vol] 72 U/L Normal 34-104 [facility] Comment on above: Performed By: #### B MP, CBC #### [facility] [address] ALT [Catalytic activity/Vol] 25 U/L Normal 7-52 [facility] Comment on above: Performed By: #### B MP, CBC #### [facility] [address] Anion gap [Moles/Vol] 11.2 mmol/L Normal 6.0-15.0 [facility] Comment on above: Performed By: #### B MP, CBC #### [facility] [address] AST [Catalytic activity/Vol] 15 U/L Normal 13-39 [facility] Comment on above: Performed By: #### B MP, CBC #### [facility] [address] Bilirubin [Mass/Vol] 0.6 mg/dL Normal 0.3-1.0 [facility] Comment on above: Performed By: #### B MP, CBC #### [facility] [address] Calcium [Mass/Vol] 9.0 mg/dL Normal 8.6-10.3 [facility] Comment on above: Performed By: #### B MP, CBC #### [facility] [address] [place] [address] [place] Chloride [Moles/Vol] 106 mmol/L Normal 98-107 [facility] Comment on above: Performed By: #### B MP, CBC #### [facility] [address] CO2 [Moles/Vol] 28.0 mmol/L Normal 21.0-31.0 [facility] Comment on above: Performed By: #### B MP, CBC #### [facility] [address] Creatinine [Mass/Vol] 1.18 mg/dL Normal 0.70-1.30 [facility] Comment on above: Performed By: #### B MP, CBC #### [facility] [address] [place] [address] [place] Creatinine Clr Calc Pharmacy 58.00 [facility] Comment on above: Performed By: #### B MP, CBC #### [facility] [address] [place] [address] [place] GFR/1.73 sq M.predicted MDRD (S/P/Bld) [Vol rate/Area] mL/min/{1.73_m2} [facility] Comment on above: Performed By: #### B MP, CBC #### [facility] [address] Globulin (S) [Mass/Vol] 2.7 g/dL [facility] Comment on above: Performed By: #### B MP, CBC #### [facility] [address] Glucose [Mass/Vol] 85 mg/dL Normal 70-100 [facility] Comment on above: Result Comment: [facility] Glucose Reference Range is dependent on time and content of last meal. Glucose of more than 200 mg/dL in a nonstressed, ambulatory subject supports the diagnosis of Diabetes Mellitus. ADA recommended reference range Performed By: #### B MP, CBC #### [facility] [address] [place] [address] [place] Potassium [Moles/Vol] 3.2 mmol/L Low 3.5-5.1 [facility] Comment on above: Performed By: #### B MP, CBC #### [facility] [address] Protein [Mass/Vol] 6.7 g/dL Normal 6.4-8.9 [facility] Comment on above: Performed By: #### B MP, CBC #### [facility] [address] Sodium [Moles/Vol] 142 mmol/L Normal 136-145 [facility] Comment on above: Performed By: #### B MP, CBC #### [address] Urea nitrogen [Mass/Vol] 20 mg/dL Normal 7-25 [facility] Comment on above: Performed By: #### B MP, CBC #### [address] Globulin Calc (S) [Mass/Vol] Ordered By: Santosh Rivera on 12-13-2022 Globulin (S) [Mass/Vol] 2.7 g/dL [facility] Prealbuminon 12-13-2022 Prealbumin [Mass/Vol] 26.1 mg/dL Normal 17.0-34.0 [facility] Comment on above: Result Comment: PERF ORMED BY: [place] [address] PATHOLOGIST DELIVERY RN TERESA PATTERSON M.D. Performed By: #### B MP, CBC #### [address] Prealbumin [Mass/volume] in Serum or PlasmaOrdered By: Santosh Rivera on 12-13-2022 Prealbumin [Mass/Vol] 26.1 mg/dL 17.0-34.0 [facility] Protein [Mass/volume] in Ser um or PlasmaOrdered By: Santosh Rivera on 12-13-2022 Protein [Mass/Vol] 6.7 g/dL 6.4-8.9 [facility] Serum or plasma albumin/glob ulin mass ratioOrdered By: Santosh Rivera on 12-13-2022 Albumin/Globulin [Mass ratio] 1.5 {ratio} [facility] Glucose Glucometer (BldC) [M ass/Vol]Ordered By: Jose Martin Sen on 12-12-2022 Glucose [Mass/Vol] 146 mg/dL [facility] Comment on above: Random Glucose Refer ence Range is dependent on time and content of last meal. Glucose of more than 200 mg/dL in a nonstressed, ambulatory subject supports the diagnosis of Diabetes Mellitus. Glucose Poct Glucometerson 1 Glucose [Mass/Vol] 146 mg/dL Normal [facility] Comment on above: Result Comment: [facility] Glucose Reference Range is dependent on time and content of last meal. Glucose of more than 200 mg/dL in a nonstressed, ambulatory subject supports the diagnosis of Diabetes Mellitus. PERFORMED BY: [facility] [address] [place] [address] PATHOLOGIST DELIVERY RN TERESA PATTERSON M.D. Performed By: #### F ER, [id number], FE and TIBC, MG #### [facility] [address] Basic Metabolic Panelon 10-1 Anion gap [Moles/Vol] 10.1 mmol/L Normal 6.0-15.0 [facility] Comment on above: Performed By: #### F ER, [id number], FE and TIBC, MG #### [facility] [address] Calcium [Mass/Vol] 9.2 mg/dL Normal 8.6-10.3 [facility] Comment on above: Performed By: #### F ER, [id number], FE and TIBC, MG #### [facility] [address] [place] [address] [place] Chloride [Moles/Vol] 105 mmol/L Normal 98-107 [facility] Comment on above: Performed By: #### F ER, [id number], FE and TIBC, MG #### [facility] [address] [place] [address] [place] CO2 [Moles/Vol] 30.4 mmol/L Normal 21.0-31.0 [facility] Comment on above: Performed By: #### F ER, [id number], FE and TIBC, MG #### [facility] [address] [place] [address] [place] Creatinine [Mass/Vol] 1.06 mg/dL Normal 0.70-1.30 [facility] Comment on above: Performed By: #### F ER, [id number], FE and TIBC, MG #### [facility] [address] Creatinine Clr Calc Pharmacy 66.33 [facility] Comment on above: Result Comment: PERF ORMED BY: [place] [address] PATHOLOGIST DELIVERY RN TERESA PATTERSON M.D. Performed By: #### F ER, [id number], FE and TIBC, MG #### [address] GFR/1.73 sq M.predicted MDRD (S/P/Bld) [Vol rate/Area] mL/min/{1.73_m2} [facility] Comment on above: Performed By: #### F ER, [id number], FE and TIBC, MG #### [address] Glucose [Mass/Vol] 99 mg/dL Normal 70-100 [facility] Comment on above: Result Comment: [place] Glucose Reference Range is dependent on time and content of last meal. Glucose of more than 200 mg/dL in a nonstressed, ambulatory subject supports the diagnosis of Diabetes Mellitus. ADA recommended reference range Performed By: #### F ER, [id number], FE and TIBC, MG #### [place] [address] [place] Potassium [Moles/Vol] 3.5 mmol/L Normal 3.5-5.1 [facility] Comment on above: Performed By: #### F ER, [id number], FE and TIBC, MG #### [facility] [address] Sodium [Moles/Vol] 142 mmol/L Normal 136-145 [facility] Comment on above: Performed By: #### F ER, [id number], FE and TIBC, MG #### [facility] [address] Urea nitrogen [Mass/Vol] 13 mg/dL Normal 7-25 [facility] Comment on above: Performed By: #### F ER, [id number], FE and TIBC, MG #### [facility] [address] [place] [address] [place] Basophils Auto (Bld) [#/Vol] Ordered By: Mindi Juan on 12-11-2022 Basophils (Bld) [#/Vol] 0.1 10*3/uL 0.0-0.2 [facility] Basophils/100 WBC Auto (Bld) Ordered By: Mindi Juan on 12-11-2022 Basophils/100 WBC (Bld) 1.2 % . [facility] Calcium [Mass/volume] in Ser um or PlasmaOrdered By: Mindi Juan on 12-11-2022 Calcium [Mass/Vol] 9.2 mg/dL 8.6-10.3 [facility] Carbon dioxide, total [Moles /volume] in Serum or PlasmaOrdered By: Mindi Juan on 12-11-2022 CO2 [Moles/Vol] 30.4 mmol/L 21.0-31.0 [facility] Chloride [Moles/volume] in S shani or PlasmaOrdered By: Mindi Juan on 12-11-2022 Chloride [Moles/Vol] 105 mmol/L 98-107 [facility] Complete Blood Count Auto Di ffon 12-11-2022 Basophils (Bld) [#/Vol] 0.1 10*3/uL Normal 0.0-0.2 [facility] Comment on above: Result Comment: PERF ORMED BY: [place] [address] PATHOLOGIST DELIVERY RN TERESA PATTERSON M.D. Performed By: #### F ER, [id number], FE and TIBC, MG #### [facility] [address] Basophils/100 WBC (Bld) 1.2 % Normal . [facility] Comment on above: Performed By: #### F ER, [id number], FE and TIBC, MG #### [address] Eosinophils (Bld) [#/Vol] 0.2 10*3/uL Normal 0.0-0.45 [facility] Comment on above: Performed By: #### F ER, [id number], FE and TIBC, MG #### [address] Eosinophils/100 WBC (Bld) 2.3 % Normal . [facility] Comment on above: Performed By: #### F ER, [id number], FE and TIBC, MG #### [address] Erythrocyte distribution width (RBC) [Ratio] 14.4 % Normal 12.0-14.8 [facility] Comment on above: Performed By: #### F ER, [id number], FE and TIBC, MG #### [address] Hematocrit (Bld) [Volume fraction] 24.6 % Low 38.8-50.0 [facility] Comment on above: Performed By: #### F ER, [id number], FE and TIBC, MG #### [address] Hemoglobin (Bld) [Mass/Vol] 9.1 g/dL Low 13.0-17.0 [facility] Comment on above: Performed By: #### F ER, [id number], FE and TIBC, MG #### [address] Lymphocytes (Bld) [#/Vol] 2.4 10*3/uL Normal 1.00-4.8 [facility] Comment on above: Performed By: #### F ER, [id number], FE and TIBC, MG #### [address] Lymphocytes/100 WBC (Bld) 30.3 % Normal . [facility] Comment on above: Performed By: #### F ER, [id number], FE and TIBC, MG #### [address] MCH (RBC) [Entitic mass] 31.9 pg Normal 27.5-35.2 [facility] Comment on above: Performed By: #### F ER, [id number], FE and TIBC, MG #### [address] MCV (RBC) [Entitic vol] 86.7 fL Normal 83.5-101 [facility] Comment on above: Performed By: #### F ER, [id number], FE and TIBC, MG #### [address] Mean Corpuscular HGB Conc 36.8 g/dL High 32.5-35.6 [facility] Comment on above: Performed By: #### F ER, [id number], FE and TIBC, MG #### [address] Monocytes (Bld) [#/Vol] 0.6 10*3/uL Normal 0.0-0.8 [facility] Comment on above: Performed By: #### F ER, [id number], FE and TIBC, MG #### [address] Monocytes/100 WBC (Bld) 7.5 % Normal . [facility] Comment on above: Performed By: #### F ER, [id number], FE and TIBC, MG #### [address] Neutrophils (Bld) [#/Vol] 4.7 10*3/uL Normal 1.8-7.7 [facility] Comment on above: Performed By: #### F ER, [id number], FE and TIBC, MG #### [address] Neutrophils/100 WBC (Bld) 58.7 % Normal . [facility] Comment on above: Performed By: #### F ER, [id number], FE and TIBC, MG #### [facility] [address] NRBC% 0.1 /100{WBC} Normal 0-0.5 [facility] Comment on above: Performed By: #### F ER, [id number], FE and TIBC, MG #### [facility] [address] Platelet mean volume (Bld) [Entitic vol] 7.4 fL Normal 6.6-10.1 [facility] Comment on above: Performed By: #### F ER, [id number], FE and TIBC, MG #### [address] Platelets (Bld) [#/Vol] 229 10*3/uL Normal 150-450 [facility] Comment on above: Performed By: #### F ER, [id number], FE and TIBC, MG #### [address] RBC (Bld) [#/Vol] 2.84 10*6/uL Low 3.90-5.[address] [facility] Comment on above: Performed By: #### F ER, [id number], FE and TIBC, MG #### [address] WBC (Bld) [#/Vol] 8.1 10*3/uL Normal 4.1-10.5 [facility] Comment on above: Performed By: #### F ER, [id number], FE and TIBC, MG #### [address] Creatinine [Mass/volume] in Serum or PlasmaOrdered By: Mindi Juan on 12-11-2022 Creatinine [Mass/Vol] 1.06 mg/dL 0.70-1.30 [facility] Eosinophils Auto (Bld) [#/Vo l]Ordered By: Mindi Juan on 12-11-2022 Eosinophils (Bld) [#/Vol] 0.2 10*3/uL 0.0-0.45 [facility] Eosinophils/100 WBC Auto (Bl d)Ordered By: Mindi Juan on 12-11-2022 Eosinophils/100 WBC (Bld) 2.3 % . [facility] Erythrocyte distribution wid th Auto (RBC) [Ratio]Ordered By: Mindi Juan on 12-11-2022 Erythrocyte distribution width (RBC) [Ratio] 14.4 % 12.0-14.8 [facility] Glucose [Mass/volume] in Ser um or PlasmaOrdered By: Mindi Juan on 12-11-2022 Glucose [Mass/Vol] 99 mg/dL 70-100 [facility] Comment on above: ADA recommended refe rence rangeRandom Glucose Reference Range is dependent on time and content of last meal. Glucose of more than 200 mg/dL in a nonstressed, ambulatory subject supports the diagnosis of Diabetes Mellitus. Hematocrit Auto (Bld) [Volum e fraction]Ordered By: Mindi Juna on 12-11-2022 Hematocrit (Bld) [Volume fraction] 24.6 % 38.8-50.0 [facility] Hemoglobin [Mass/volume] in BloodOrdered By: Mindi Juan on 12-11-2022 Hemoglobin (Bld) [Mass/Vol] 9.1 g/dL 13.0-17.0 [facility] Leukocytes [#/volume] correc khadra for nucleated erythrocytes in Blood by Automated counOrdered By: Mindi Juan on 12-11-2022 WBC corrected for nucl RBC Auto (Bld) [#/Vol] 8.1 10*3/uL 4.1-10.5 [facility] Lymphocytes Auto (Bld) [#/Vo l]Ordered By: Mindi Juan on 12-11-2022 Lymphocytes (Bld) [#/Vol] 2.4 10*3/uL 1.00-4.8 [facility] Lymphocytes/100 WBC Auto (Bl d)Ordered By: Mindi Juan on 12-11-2022 Lymphocytes/100 WBC (Bld) 30.3 % . [facility] MCH Auto (RBC) [Entitic mass ]Ordered By: Mindi Juan on 12-11-2022 MCH (RBC) [Entitic mass] 31.9 pg 27.5-35.2 [facility] MCHC Auto (RBC) [Mass/Vol]Or dered By: Mindi Juan on 12-11-2022 MCHC (RBC) [Mass/Vol] 36.8 g/dL 32.5-35.6 [facility] MCV Auto (RBC) [Entitic vol] Ordered By: Mindi Juan on 12-11-2022 MCV (RBC) [Entitic vol] 86.7 fL 83.5-101 [facility] MR head/brain wo conon 12-11 MR head/brain wo con [facility] [place] [address] MRI Report Signed Patient: Viraj Doherty MR#: [id number] : 1955 Acct:[id number] Age/Sex: 67 / M ADM Date: 12/09/22 Loc: Room: [address] [place] [address] Type: ADM IN Attending Dr: Davey Harding [...] Jeff Pat M.D.12/11/2022 12:31 PM Dictation Location: [place] [address] Transcribed By: ELFEGO 12/11/22 1231 Dictated By: Jeff Pat II, MD 12/11/22 1218 Signed By: 12/11/22 1231 Normal [facility] Monocytes Auto (Bld) [#/Vol] Ordered By: Mindi Juan on 12-11-2022 Monocytes (Bld) [#/Vol] 0.6 10*3/uL 0.0-0.8 [facility] Monocytes/100 WBC Auto (Bld) Ordered By: Mindi Juan on 12-11-2022 Monocytes/100 WBC (Bld) 7.5 % . [facility] Neutrophils Auto (Bld) [#/Vo l]Ordered By: Mindi Juan on 12-11-2022 Neutrophils (Bld) [#/Vol] 4.7 10*3/uL 1.8-7.7 [facility] Neutrophils/100 WBC Auto (Bl d)Ordered By: Mindi Juan on 12-11-2022 Neutrophils/100 WBC (Bld) 58.7 % . [facility] No Panel InformationOrdered By: Mindi Juan on 12-11-2022 Estimated GFR (CKD-EPI) > 60.0 mL/Min [facility] Creatinine Clearance (Chem 66.33 [facility] Nucleated erythrocytes [Pres ence] in Blood by Automated countOrdered By: Mindi Juan on 12-11-2022 Nucleated RBC Auto Ql (Bld) 0.1 /100{WBC} 0-0.5 [facility] Platelet mean volume Auto (B ld) [Entitic vol]Ordered By: Mindi Juan on 12-11-2022 Platelet mean volume (Bld) [Entitic vol] 7.4 fL 6.6-10.1 [facility] Platelets Auto (Bld) [#/Vol] Ordered By: Mindi Juan on 12-11-2022 Platelets (Bld) [#/Vol] 229 10*3/uL 150-450 [facility] Potassium [Moles/volume] in Serum or PlasmaOrdered By: Mindi Juan on 12-11-2022 Potassium [Moles/Vol] 3.5 mmol/L 3.5-5.1 [facility] RBC Auto (Bld) [#/Vol]Ordere d By: Mindi Juan on 12-11-2022 RBC (Bld) [#/Vol] 2.84 10*6/uL 3.90-5.[address] [facility] Serum or plasma anion gap de terminationOrdered By: Mindi Juan on 12-11-2022 Anion gap [Moles/Vol] 10.1 mmol/L 6.0-15.0 [facility] Sodium [Moles/volume] in Ser um or PlasmaOrdered By: Mindi Juan on 12-11-2022 Sodium [Moles/Vol] 142 mmol/L 136-145 [facility] Urea nitrogen [Mass/volume] in Serum or PlasmaOrdered By: Mindi Juan on 12-11-2022 Urea nitrogen [Mass/Vol] 13 mg/dL 7-25 [facility] WBC Auto (Bld) [#/Vol]Ordere d By: Mindi Juan on 12-11-2022 WBC (Bld) [#/Vol] 8.1 10*3/uL 4.1-10.5 [facility] Basic Metabolic Panelon 11-26 Anion gap [Moles/Vol] 10.2 mmol/L Normal 6.0-15.0 [facility] Comment on above: Performed By: #### F ER, [id number], FE and TIBC, MG #### [facility] [address] Calcium [Mass/Vol] 8.9 mg/dL Normal 8.6-10.3 [facility] Comment on above: Performed By: #### F ER, [id number], FE and TIBC, MG #### [facility] [address] Chloride [Moles/Vol] 106 mmol/L Normal 98-107 [facility] Comment on above: Performed By: #### F ER, [id number], FE and TIBC, MG #### [facility] [address] CO2 [Moles/Vol] 26.8 mmol/L Normal 21.0-31.0 [facility] Comment on above: Performed By: #### F ER, [id number], FE and TIBC, MG #### [facility] [address] Creatinine [Mass/Vol] 0.83 mg/dL Normal 0.70-1.30 [facility] Comment on above: Performed By: #### F ER, [id number], FE and TIBC, MG #### [facility] [address] Creatinine Clr Calc Pharmacy 84.35 Normal [facility] Comment on above: Result Comment: PERF ORMED BY: [place] [address] PATHOLOGIST DELIVERY RN TERESA PATTERSON M.D. Performed By: #### F ER, [id number], FE and TIBC, MG #### [facility] [address] GFR/1.73 sq M.predicted MDRD (S/P/Bld) [Vol rate/Area] mL/min/{1.73_m2} Normal [facility] Comment on above: Performed By: #### F ER, [id number], FE and TIBC, MG #### [facility] [address] Glucose [Mass/Vol] 100 mg/dL Normal 70-100 [facility] Comment on above: Result Comment: [facility] Glucose Reference Range is dependent on time and content of last meal. Glucose of more than 200 mg/dL in a nonstressed, ambulatory subject supports the diagnosis of Diabetes Mellitus. ADA recommended reference range Performed By: #### F ER, [id number], FE and TIBC, MG #### [facility] [address] Potassium [Moles/Vol] 3.0 mmol/L Low 3.5-5.1 [facility] Comment on above: Performed By: #### F ER, [id number], FE and TIBC, MG #### [facility] [address] [place] [address] [place] Sodium [Moles/Vol] 140 mmol/L Normal 136-145 [facility] Comment on above: Performed By: #### F ER, [id number], FE and TIBC, MG #### [facility] [address] [place] [address] [place] Urea nitrogen [Mass/Vol] 16 mg/dL Normal 7-25 [facility] Comment on above: Performed By: #### F ER, [id number], FE and TIBC, MG #### [facility] [address] Complete Blood Count Auto Di ffon 12-10-2022 Basophils (Bld) [#/Vol] 0.1 10*3/uL Normal 0.0-0.2 [facility] Comment on above: Result Comment: PERF ORMED BY: [place] [address] PATHOLOGIST DELIVERY RN TERESA PATTERSON M.D. Performed By: #### F ER, [id number], FE and TIBC, MG #### [address] Basophils/100 WBC (Bld) 0.9 % Normal . [facility] Comment on above: Performed By: #### F ER, [id number], FE and TIBC, MG #### [address] Eosinophils (Bld) [#/Vol] 0.1 10*3/uL Normal 0.0-0.45 [facility] Comment on above: Performed By: #### F ER, [id number], FE and TIBC, MG #### [address] Eosinophils/100 WBC (Bld) 1.3 % Normal . [facility] Comment on above: Performed By: #### F ER, [id number], FE and TIBC, MG #### [address] Erythrocyte distribution width (RBC) [Ratio] 14.1 % Normal 12.0-14.8 [facility] Comment on above: Performed By: #### F ER, [id number], FE and TIBC, MG #### [address] Hematocrit (Bld) [Volume fraction] 23.2 % Low 38.8-50.0 [facility] Comment on above: Performed By: #### F ER, [id number], FE and TIBC, MG #### [address] Hemoglobin (Bld) [Mass/Vol] 8.4 g/dL Low 13.0-17.0 [facility] Comment on above: Performed By: #### F ER, [id number], FE and TIBC, MG #### [address] Lymphocytes (Bld) [#/Vol] 2.2 10*3/uL Normal 1.00-4.8 [facility] Comment on above: Performed By: #### F ER, [id number], FE and TIBC, MG #### [address] Lymphocytes/100 WBC (Bld) 24.2 % Normal . [facility] Comment on above: Performed By: #### F ER, [id number], FE and TIBC, MG #### [address] MCH (RBC) [Entitic mass] 31.3 pg Normal 27.5-35.2 [facility] Comment on above: Performed By: #### F ER, [id number], FE and TIBC, MG #### [address] MCV (RBC) [Entitic vol] 86.5 fL Normal 83.5-101 [facility] Comment on above: Performed By: #### F ER, [id number], FE and TIBC, MG #### [address] Mean Corpuscular HGB Conc 36.2 g/dL High 32.5-35.6 [facility] Comment on above: Performed By: #### F ER, [id number], FE and TIBC, MG #### [address] Monocytes (Bld) [#/Vol] 0.8 10*3/uL Normal 0.0-0.8 [facility] Comment on above: Performed By: #### F ER, [id number], FE and TIBC, MG #### [address] Monocytes/100 WBC (Bld) 9.1 % Normal . [facility] Comment on above: Performed By: #### F ER, [id number], FE and TIBC, MG #### [address] Neutrophils (Bld) [#/Vol] 5.8 10*3/uL Normal 1.8-7.7 [facility] Comment on above: Performed By: #### F ER, [id number], FE and TIBC, MG #### [address] Neutrophils/100 WBC (Bld) 64.5 % Normal . [facility] Comment on above: Performed By: #### F ER, [id number], FE and TIBC, MG #### [address] NRBC% 0.0 /100{WBC} Normal 0-0.5 [facility] Comment on above: Performed By: #### F ER, [id number], FE and TIBC, MG #### [address] Platelet mean volume (Bld) [Entitic vol] 7.6 fL Normal 6.6-10.1 [facility] Comment on above: Performed By: #### F ER, [id number], FE and TIBC, MG #### [address] Platelets (Bld) [#/Vol] 218 10*3/uL Normal 150-450 [facility] Comment on above: Performed By: #### F ER, [id number], FE and TIBC, MG #### [address] RBC (Bld) [#/Vol] 2.68 10*6/uL Low 3.90-5.[address] [facility] Comment on above: Performed By: #### F ER, [id number], FE and TIBC, MG #### [address] WBC (Bld) [#/Vol] 8.9 10*3/uL Normal 4.1-10.5 [facility] Comment on above: Performed By: #### F ER, [id number], FE and TIBC, MG #### [place] [id number] [facility] Ferritinon 12-10-2022 Ferritin [Mass/Vol] 33.0 ng/mL Normal 23.9-336.[address] [facility] Comment on above: Order Comment: Comme nt add Comment add Performed By: #### F ER, [id number], FE and TIBC, MG #### [facility] [address] Ferritin [Mass/volume] in Se rum or PlasmaOrdered By: Mindi Juan on 12-10-2022 Ferritin [Mass/Vol] 33.0 ng/mL 23.9-336.[address] [facility] Folate [Mass/volume] in Seru m or PlasmaOrdered By: Mindi Juan on 12-10-2022 Folate [Mass/Vol] 10.4 ng/mL >5.9 [facility] Comment on above: Folate reference ran ge: >5.9 ng/mlThe WHO technical consultation on folate and vitamin [id number] has determined that folate concentrations lessthan 4 ng/ml are considered deficient. Hemoglobin and Hematocriton 12-10-2022 Hematocrit (Bld) [Volume fraction] 24.0 % Low 38.8-50.0 [facility] Comment on above: Result Comment: PERF ORMED BY: [place] [address] PATHOLOGIST DELIVERY RN TERESA PATTERSON M.D. Performed By: #### F ER, [id number], FE and TIBC, MG #### [facility] [address] Hemoglobin (Bld) [Mass/Vol] 8.6 g/dL Low 13.0-17.0 [facility] Comment on above: Performed By: #### F ER, [id number], FE and TIBC, MG #### [facility] [address] [place] [id number] [facility] Iron [Mass/volume] in Serum or PlasmaOrdered By: Mindi Juan on 12-10-2022 Iron [Mass/Vol] 38 ug/dL 50-212 [facility] Iron and TIBC Profileon 11-26 % Iron Saturation 11.6 % Low 20-50 [facility] Comment on above: Order Comment: Comme nt add Comment add Performed By: #### F ER, [id number], FE and TIBC, MG #### [facility] [address] Iron [Mass/Vol] 38 ug/dL Low 50-212 [facility] Comment on above: Order Comment: Comme nt add Comment add Performed By: #### F ER, [id number], FE and TIBC, MG #### [facility] [address] [place], [place] [address] Total Iron Binding Capacity 329 ug/dL Normal 255-450 [facility] Comment on above: Order Comment: Comme nt add Comment add Performed By: #### F ER, [id number], FE and TIBC, MG #### [facility] [address] Transferrin [Mass/Vol] 235 mg/dL Normal 203-362 [facility] Comment on above: Order Comment: Comme nt add Comment add Performed By: #### F ER, [id number], FE and TIBC, MG #### [facility] [address] [place] [id number] [facility] Iron binding capacity [Mass/ volume] in Serum or PlasmaOrdered By: Mindi Kentonskiene on 12-10-2022 Iron binding capacity [Mass/Vol] 329 ug/dL 255-450 [facility] Iron saturation [Mass Fracti on] in Serum or PlasmaOrdered By: Mindi Semaskiene on 12-10-2022 Iron saturation [Mass fraction] 11.6 % 20-50 [facility] Magnesiumon 12-10-2022 Magnesium [Mass/Vol] 1.9 mg/dL Normal 1.9-2.7 [facility] Comment on above: Order Comment: Comme nt add Comment add Performed By: #### F ER, [id number], FE and TIBC, MG #### [facility] [address] [place] [id number] [place] Magnesium [Mass/volume] in S shani or PlasmaOrdered By: Mindi Juan on 12-10-2022 Magnesium [Mass/Vol] 1.9 mg/dL 1.9-2.7 [facility] Transferrin [Mass/volume] in Serum or PlasmaOrdered By: Mindi Juan on 12-10-2022 Transferrin [Mass/Vol] 235 mg/dL 203-362 [facility] Vit. B12/Folate Profileon Cobalamin (Vitamin B12) [Mass/Vol] 228 pg/mL Normal 180-914 [facility] Comment on above: Order Comment: Comme nt add Comment add Performed By: #### F ER, [id number], FE and TIBC, MG #### [facility] [address] Folate 10.4 ng/mL Normal >5.9 [facility] Comment on above: Order Comment: Comme nt add Comment add Result Comment: Lydia te reference range: >5.9 ng/ml The WHO technical consultation on folate and vitamin b12 deficiencies has determined that folate concentrations less than 4 ng/ml are considered deficient. PERFORMED BY: [place] [address] PATHOLOGIST DELIVERY RN TERESA PATTERSON M.D. Performed By: #### F ER, [id number], FE and TIBC, MG #### [facility] [address] [place] [address] Vitamin B12 ser/plasOrdered By: Mindi Juan on 12-10-2022 Cobalamin (Vitamin B12) [Mass/Vol] 228 pg/mL 180-914 [facility] Basic Metabolic Panelon 09-2 Anion gap [Moles/Vol] 6.5 mmol/L Normal 6.0-15.0 [facility] Comment on above: Performed By: #### F ER, [id number], FE and TIBC, MG #### [facility] [address] [place] [address] Calcium [Mass/Vol] 9.3 mg/dL Normal 8.6-10.3 [facility] Comment on above: Performed By: #### F ER, [id number], FE and TIBC, MG #### [facility] [address] Chloride [Moles/Vol] 105 mmol/L Normal 98-107 [facility] Comment on above: Performed By: #### F ER, [id number], FE and TIBC, MG #### [facility] [address] CO2 [Moles/Vol] 28.0 mmol/L Normal 21.0-31.0 [facility] Comment on above: Performed By: #### F ER, [id number], FE and TIBC, MG #### [facility] [address] Creatinine [Mass/Vol] 1.15 mg/dL Normal 0.70-1.30 [facility] Comment on above: Performed By: #### F ER, [id number], FE and TIBC, MG #### [address] Creatinine Clr Calc Pharmacy 59.85 [facility] Comment on above: Result Comment: PERF ORMED BY: [place] [address] PATHOLOGIST DELIVERY RN TERESA PATTERSON M.D. Performed By: #### F ER, [id number], FE and TIBC, MG #### [address] GFR/1.73 sq M.predicted MDRD (S/P/Bld) [Vol rate/Area] mL/min/{1.73_m2} Normal [facility] Comment on above: Performed By: #### F ER, [id number], FE and TIBC, MG #### [facility] [address] Glucose [Mass/Vol] 101 mg/dL High 70-100 [facility] Comment on above: Result Comment: [place] Glucose Reference Range is dependent on time and content of last meal. Glucose of more than 200 mg/dL in a nonstressed, ambulatory subject supports the diagnosis of Diabetes Mellitus. ADA recommended reference range Performed By: #### F ER, [id number], FE and TIBC, MG #### [facility] [address] Potassium [Moles/Vol] 3.5 mmol/L Normal 3.5-5.1 [facility] Comment on above: Performed By: #### F ER, [id number], FE and TIBC, MG #### [facility] [address] Sodium [Moles/Vol] 136 mmol/L Normal 136-145 [facility] Comment on above: Performed By: #### F ER, [id number], FE and TIBC, MG #### [facility] [address] Urea nitrogen [Mass/Vol] 29 mg/dL High 7-25 [facility] Comment on above: Performed By: #### F ER, [id number], FE and TIBC, MG #### [facility] [address] Calcium [Mass/volume] in Ser um or PlasmaOrdered By: Jose Martin Sen on 11-15-2022 Calcium [Mass/Vol] 9.3 mg/dL 8.6-10.3 [facility] Carbon dioxide, total [Moles /volume] in Serum or PlasmaOrdered By: Jose Martin Sen on 11-15-2022 CO2 [Moles/Vol] 28.0 mmol/L 21.0-31.0 [facility] Chloride [Moles/volume] in S shani or PlasmaOrdered By: Jose Martin Sen on 11-15-2022 Chloride [Moles/Vol] 105 mmol/L 98-107 [facility] Creatinine [Mass/volume] in Serum or PlasmaOrdered By: Jose Martin Sen on 11-15-2022 Creatinine [Mass/Vol] 1.15 mg/dL 0.70-1.30 [facility] Glucose [Mass/volume] in Ser um or PlasmaOrdered By: Jose Martin Sen on 11-15-2022 Glucose [Mass/Vol] 101 mg/dL 70-100 [facility] Comment on above: ADA recommended refe rence rangeRandom Glucose Reference Range is dependent on time and content of last meal. Glucose of more than 200 mg/dL in a nonstressed, ambulatory subject supports the diagnosis of Diabetes Mellitus. No Panel InformationOrdered By: Jose Martin Sen on 11-15-2022 Estimated GFR (CKD-EPI) > 60.0 mL/Min [facility] Creatinine Clearance (Chem 59.85 [facility] Potassium [Moles/volume] in Serum or PlasmaOrdered By: Jose Martin Sen on 11-15-2022 Potassium [Moles/Vol] 3.5 mmol/L 3.5-5.1 [facility] Serum or plasma anion gap de terminationOrdered By: Jose Martin Sen on 11-15-2022 Anion gap [Moles/Vol] 6.5 mmol/L 6.0-15.0 [facility] Sodium [Moles/volume] in Ser um or PlasmaOrdered By: Jose Martin Sen on 11-15-2022 Sodium [Moles/Vol] 136 mmol/L 136-145 [facility] Urea nitrogen [Mass/volume] in Serum or PlasmaOrdered By: Jose Martin Sen on 11-15-2022 Urea nitrogen [Mass/Vol] 29 mg/dL 7-25 [facility] Basic Metabolic Panelon 10-27 Anion gap [Moles/Vol] 10.7 mmol/L Normal 6.0-15.0 [facility] Comment on above: Performed By: #### F ER, [id number], FE and TIBC, MG #### [facility] [address] [place] [address] [place] Calcium [Mass/Vol] 9.3 mg/dL Normal 8.6-10.3 [facility] Comment on above: Performed By: #### F ER, [id number], FE and TIBC, MG #### [facility] [address] [place] [id number] [place] Chloride [Moles/Vol] 103 mmol/L Normal 98-107 [facility] Comment on above: Performed By: #### F ER, [id number], FE and TIBC, MG #### [facility] [address] CO2 [Moles/Vol] 26.8 mmol/L Normal 21.0-31.0 [facility] Comment on above: Performed By: #### F ER, [id number], FE and TIBC, MG #### [facility] [address] Creatinine [Mass/Vol] 1.09 mg/dL Normal 0.70-1.30 [facility] Comment on above: Performed By: #### F ER, [id number], FE and TIBC, MG #### [facility] [address] Creatinine Clr Calc Pharmacy 66.04 [facility] Comment on above: Result Comment: PERF ORMED BY: [place] [address] PATHOLOGIST DELIVERY RN TERESA PATTERSON M.D. Performed By: #### F ER, [id number], FE and TIBC, MG #### [facility] [address] GFR/1.73 sq M.predicted MDRD (S/P/Bld) [Vol rate/Area] mL/min/{1.73_m2} [facility] Comment on above: Performed By: #### F ER, [id number], FE and TIBC, MG #### [facility] [address] Glucose [Mass/Vol] 104 mg/dL High 70-100 [facility] Comment on above: Result Comment: [place] Glucose Reference Range is dependent on time and content of last meal. Glucose of more than 200 mg/dL in a nonstressed, ambulatory subject supports the diagnosis of Diabetes Mellitus. ADA recommended reference range Performed By: #### F ER, [id number], FE and TIBC, MG #### [facility] [address] Potassium [Moles/Vol] 3.5 mmol/L Normal 3.5-5.1 [facility] Comment on above: Performed By: #### F ER, [id number], FE and TIBC, MG #### [address] Sodium [Moles/Vol] 137 mmol/L Normal 136-145 [facility] Comment on above: Performed By: #### F ER, [id number], FE and TIBC, MG #### [address] Urea nitrogen [Mass/Vol] 27 mg/dL High 7-25 [facility] Comment on above: Performed By: #### F ER, [id number], FE and TIBC, MG #### [address] Basophils Auto (Bld) [#/Vol] Ordered By: Jose Martin Sen on 11-08-2022 Basophils (Bld) [#/Vol] 0.1 10*3/uL 0.0-0.2 [facility] Basophils/100 WBC Auto (Bld) Ordered By: Jose Martin Sen on 11-08-2022 Basophils/100 WBC (Bld) 0.9 % . [facility] Complete Blood Count Auto Di ffon 11-08-2022 Basophils (Bld) [#/Vol] 0.1 10*3/uL Normal 0.0-0.2 [facility] Comment on above: Result Comment: PERF ORMED BY: [place] [address] PATHOLOGIST DELIVERY RN TERESA PATTERSON M.D. Performed By: #### F ER, [id number], FE and TIBC, MG #### [address] Basophils/100 WBC (Bld) 0.9 % Normal . [facility] Comment on above: Performed By: #### F ER, [id number], FE and TIBC, MG #### [address] Eosinophils (Bld) [#/Vol] 0.1 10*3/uL Normal 0.0-0.45 [facility] Comment on above: Performed By: #### F ER, [id number], FE and TIBC, MG #### [address] Eosinophils/100 WBC (Bld) 0.9 % Normal . [facility] Comment on above: Performed By: #### F ER, [id number], FE and TIBC, MG #### [address] Erythrocyte distribution width (RBC) [Ratio] 13.7 % Normal 12.0-14.8 [facility] Comment on above: Performed By: #### F ER, [id number], FE and TIBC, MG #### [address] Hematocrit (Bld) [Volume fraction] 43.8 % Normal 38.8-50.0 [facility] Comment on above: Performed By: #### F ER, [id number], FE and TIBC, MG #### [address] Hemoglobin (Bld) [Mass/Vol] 15.4 g/dL Normal 13.0-17.0 [facility] Comment on above: Performed By: #### F ER, [id number], FE and TIBC, MG #### [address] Lymphocytes (Bld) [#/Vol] 2.7 10*3/uL Normal 1.00-4.8 [facility] Comment on above: Performed By: #### F ER, [id number], FE and TIBC, MG #### [address] Lymphocytes/100 WBC (Bld) 28.3 % Normal . [facility] Comment on above: Performed By: #### F ER, [id number], FE and TIBC, MG #### [place] [id number] [place] MCH (RBC) [Entitic mass] 30.5 pg Normal 27.5-35.2 [facility] Comment on above: Performed By: #### F ER, [id number], FE and TIBC, MG #### [address] MCV (RBC) [Entitic vol] 86.7 fL Normal 83.5-101 [facility] Comment on above: Performed By: #### F ER, [id number], FE and TIBC, MG #### [address] Mean Corpuscular HGB Conc 35.2 g/dL Normal 32.5-35.6 [facility] Comment on above: Performed By: #### F ER, [id number], FE and TIBC, MG #### [address] Monocytes (Bld) [#/Vol] 1.3 10*3/uL High 0.0-0.8 [facility] Comment on above: Performed By: #### F ER, [id number], FE and TIBC, MG #### [address] Monocytes/100 WBC (Bld) 13.4 % Normal . [facility] Comment on above: Performed By: #### F ER, [id number], FE and TIBC, MG #### [address] Neutrophils (Bld) [#/Vol] 5.3 10*3/uL Normal 1.8-7.7 [facility] Comment on above: Performed By: #### F ER, [id number], FE and TIBC, MG #### [address] Neutrophils/100 WBC (Bld) 56.5 % Normal . [facility] Comment on above: Performed By: #### F ER, [id number], FE and TIBC, MG #### [address] [place] [address] [place] NRBC% 0.1 /100{WBC} Normal 0-0.5 [facility] Comment on above: Performed By: #### F ER, [id number], FE and TIBC, MG #### [facility] [address] Platelet mean volume (Bld) [Entitic vol] 9.0 fL Normal 6.6-10.1 [facility] Comment on above: Performed By: #### F ER, [id number], FE and TIBC, MG #### [facility] [address] Platelets (Bld) [#/Vol] 224 10*3/uL Normal 150-450 [facility] Comment on above: Performed By: #### F ER, [id number], FE and TIBC, MG #### [facility] [address] [place] [address] RBC (Bld) [#/Vol] 5.05 10*6/uL Normal 3.90-5.[address] [facility] Comment on above: Performed By: #### F ER, [id number], FE and TIBC, MG #### [facility] [address] [place] [address] WBC (Bld) [#/Vol] 9.4 10*3/uL Normal 4.1-10.5 [facility] Comment on above: Performed By: #### F ER, [id number], FE and TIBC, MG #### [address] Eosinophils Auto (Bld) [#/Vo l]Ordered By: Jose Martin Sen on 11-08-2022 Eosinophils (Bld) [#/Vol] 0.1 10*3/uL 0.0-0.45 [facility] [facility] Eosin[facility]/100 WBC Auto (Bl d)Ordered By: Jose Martin Sen on 11-08-2022 Eosinophils/100 WBC (Bld) 0.9 % . [facility] Erythrocyte distribution wid th Auto (RBC) [Ratio]Ordered By: Jose Martin Sen on 11-08-2022 Erythrocyte distribution width (RBC) [Ratio] 13.7 % 12.0-14.8 [facility] Hematocrit Auto (Bld) [Volum e fraction]Ordered By: Jose Martin Sen on 11-08-2022 Hematocrit (Bld) [Volume fraction] 43.8 % 38.8-50.0 [facility] Hemoglobin [Mass/volume] in BloodOrdered By: Jose Martin eSn on 11-08-2022 Hemoglobin (Bld) [Mass/Vol] 15.4 g/dL 13.0-17.0 [facility] Leukocytes [#/volume] correc khadra for nucleated erythrocytes in Blood by Automated counOrdered By: Jose Martin Sen on 11-08-2022 WBC corrected for nucl RBC Auto (Bld) [#/Vol] 9.4 10*3/uL 4.1-10.5 [facility] Lymphocytes Auto (Bld) [#/Vo l]Ordered By: Jose Martin Sen on 11-08-2022 Lymphocytes (Bld) [#/Vol] 2.7 10*3/uL 1.00-4.8 [facility] Lymphocytes/100 WBC Auto (Bl d)Ordered By: Jose Martin Sen on 11-08-2022 Lymphocytes/100 WBC (Bld) 28.3 % . [facility] MCH Auto (RBC) [Entitic mass ]Ordered By: oJse Martin Sen on 11-08-2022 MCH (RBC) [Entitic mass] 30.5 pg 27.5-35.2 [facility] MCHC Auto (RBC) [Mass/Vol]Or dered By: Jose Martin Sen on 11-08-2022 MCHC (RBC) [Mass/Vol] 35.2 g/dL 32.5-35.6 [facility] MCV Auto (RBC) [Entitic vol] Ordered By: Jose Martin Sen on 11-08-2022 MCV (RBC) [Entitic vol] 86.7 fL 83.5-101 [facility] Monocytes Auto (Bld) [#/Vol] Ordered By: Jose Martin Sen on 11-08-2022 Monocytes (Bld) [#/Vol] 1.3 10*3/uL 0.0-0.8 [facility] Monocytes/100 WBC Auto (Bld) Ordered By: Jose Martin Sen on 11-08-2022 Monocytes/100 WBC (Bld) 13.4 % . [facility] Neutrophils Auto (Bld) [#/Vo l]Ordered By: Jose Martin Sen on 11-08-2022 Neutrophils (Bld) [#/Vol] 5.3 10*3/uL 1.8-7.7 [facility] Neutrophils/100 WBC Auto (Bl d)Ordered By: Jose Martin Sen on 11-08-2022 Neutrophils/100 WBC (Bld) 56.5 % . [facility] Nucleated erythrocytes [Pres ence] in Blood by Automated countOrdered By: Jose Martin Sen on 11-08-2022 Nucleated RBC Auto Ql (Bld) 0.1 /100{WBC} 0-0.5 [facility] Platelet mean volume Auto (B ld) [Entitic vol]Ordered By: Jose Martin Sen on 11-08-2022 Platelet mean volume (Bld) [Entitic vol] 9.0 fL 6.6-10.1 [facility] Platelets Auto (Bld) [#/Vol] Ordered By: Jose Martin Sen on 11-08-2022 Platelets (Bld) [#/Vol] 224 10*3/uL 150-450 [facility] RBC Auto (Bld) [#/Vol]Ordere d By: Jose Martin Sen on 11-08-2022 RBC (Bld) [#/Vol] 5.05 10*6/uL 3.90-5.[address] [facility] WBC Auto (Bld) [#/Vol]Ordere d By: Jose Martin Sen on 11-08-2022 WBC (Bld) [#/Vol] 9.4 10*3/uL 4.1-10.5 [facility] Basic Metabolic Panelon 10-27 Anion gap [Moles/Vol] 10.7 mmol/L Normal 6.0-15.0 [facility] Comment on above: Performed By: #### F ER, [id number], FE and TIBC, MG #### [facility] [address] Calcium [Mass/Vol] 9.4 mg/dL Normal 8.6-10.3 [facility] Comment on above: Performed By: #### F ER, [id number], FE and TIBC, MG #### [facility] [address] Chloride [Moles/Vol] 100 mmol/L Normal 98-107 [facility] Comment on above: Performed By: #### F ER, [id number], FE and TIBC, MG #### [facility] [address] CO2 [Moles/Vol] 28.8 mmol/L Normal 21.0-31.0 [facility] Comment on above: Performed By: #### F ER, [id number], FE and TIBC, MG #### [facility] [address] Creatinine [Mass/Vol] 1.13 mg/dL Normal 0.70-1.30 [facility] Comment on above: Performed By: #### F ER, [id number], FE and TIBC, MG #### [facility] [address] [place] [address] [place] Creatinine Clr Calc Pharmacy 63.70 [facility] Comment on above: Result Comment: PERF ORMED BY: [place] [address] PATHOLOGIST DELIVERY RN TERESA PATTERSON M.D. Performed By: #### F ER, [id number], FE and TIBC, MG #### [facility] [address] [place] [address] [place] GFR/1.73 sq M.predicted MDRD (S/P/Bld) [Vol rate/Area] mL/min/{1.73_m2} [facility] Comment on above: Performed By: #### F ER, [id number], FE and TIBC, MG #### [facility] [address] Glucose [Mass/Vol] 105 mg/dL High 70-100 [facility] Comment on above: Result Comment: [place] Glucose Reference Range is dependent on time and content of last meal. Glucose of more than 200 mg/dL in a nonstressed, ambulatory subject supports the diagnosis of Diabetes Mellitus. ADA recommended reference range Performed By: #### F ER, [id number], FE and TIBC, MG #### [facility] [address] Potassium [Moles/Vol] 3.5 mmol/L Normal 3.5-5.1 [facility] Comment on above: Performed By: #### F ER, [id number], FE and TIBC, MG #### [facility] [address] Sodium [Moles/Vol] 136 mmol/L Normal 136-145 [facility] Comment on above: Performed By: #### F ER, [id number], FE and TIBC, MG #### [facility] [address] Urea nitrogen [Mass/Vol] 28 mg/dL High 7-25 [facility] Comment on above: Performed By: #### F ER, [id number], FE and TIBC, MG #### [facility] [address] Bilirubin Test strip Ql (U)O rdered By: Jose Martin Sen on 11-07-2022 Bilirubin Ql (U) Negative Negative [facility] CT head/brain wo conon 11-07 CT head/brain wo con [facility] [place] [address] [place] [address] CT Scan Report Signed Patient: Viraj Doherty MR#: [id number] : 1955 Acct:[id number] Age/Sex: 67 / M ADM Date: 11/02/22 Loc: Room: 9W8760-9 Type: ADM IN Attending Dr: Jose Martin [...] Impression dictated by: Jose Martin Jha Jr., Sp11/07/2022 3:24 PM Dictation Location: [place] [address] Transcribed By: [facility] 11/07/22 1524 Dictated By: Jose Martin Jha Jr, DO 11/07/22 1521 Signed By: 11/07/22 1524 Normal [facility] Color Auto (U)Ordered By: Karen Sen on 11-07-2022 Color (U) Yellow Yellow [facility] Complete Blood Count Auto Di ffon 11-07-2022 Basophils (Bld) [#/Vol] 0.1 10*3/uL Normal 0.0-0.2 [facility] Comment on above: Result Comment: PERF ORMED BY: [place] [address] PATHOLOGIST DELIVERY RN TERESA PATTERSON M.D. Performed By: #### F ER, [id number], FE and TIBC, MG #### [address] Basophils/100 WBC (Bld) 1.1 % Normal . [facility] Comment on above: Performed By: #### F ER, [id number], FE and TIBC, MG #### [address] Eosinophils (Bld) [#/Vol] 0.0 10*3/uL Normal 0.0-0.45 [facility] Comment on above: Performed By: #### F ER, [id number], FE and TIBC, MG #### [address] Eosinophils/100 WBC (Bld) 0.4 % Normal . [facility] Comment on above: Performed By: #### F ER, [id number], FE and TIBC, MG #### [address] Erythrocyte distribution width (RBC) [Ratio] 14.2 % Normal 12.0-14.8 [facility] Comment on above: Performed By: #### F ER, [id number], FE and TIBC, MG #### [address] Hematocrit (Bld) [Volume fraction] 45.3 % Normal 38.8-50.0 [facility] Comment on above: Performed By: #### F ER, [id number], FE and TIBC, MG #### [address] Hemoglobin (Bld) [Mass/Vol] 15.9 g/dL Normal 13.0-17.0 [facility] Comment on above: Performed By: #### F ER, [id number], FE and TIBC, MG #### [address] Lymphocytes (Bld) [#/Vol] 1.7 10*3/uL Normal 1.00-4.8 [facility] Comment on above: Performed By: #### F ER, [id number], FE and TIBC, MG #### [address] Lymphocytes/100 WBC (Bld) 21.8 % Normal . [facility] Comment on above: Performed By: #### F ER, [id number], FE and TIBC, MG #### [address] MCH (RBC) [Entitic mass] 30.6 pg Normal 27.5-35.2 [facility] Comment on above: Performed By: #### F ER, [id number], FE and TIBC, MG #### [address] MCV (RBC) [Entitic vol] 87.4 fL Normal 83.5-101 [facility] Comment on above: Performed By: #### F ER, [id number], FE and TIBC, MG #### [address] Mean Corpuscular HGB Conc 35.1 g/dL Normal 32.5-35.6 [facility] Comment on above: Performed By: #### F ER, [id number], FE and TIBC, MG #### [address] Monocytes (Bld) [#/Vol] 1.0 10*3/uL High 0.0-0.8 [facility] Comment on above: Performed By: #### F ER, [id number], FE and TIBC, MG #### [address] Monocytes/100 WBC (Bld) 12.9 % Normal . [facility] Comment on above: Performed By: #### F ER, [id number], FE and TIBC, MG #### [address] Neutrophils (Bld) [#/Vol] 4.9 10*3/uL Normal 1.8-7.7 [facility] Comment on above: Performed By: #### F ER, [id number], FE and TIBC, MG #### [address] Neutrophils/100 WBC (Bld) 63.8 % Normal . [facility] Comment on above: Performed By: #### F ER, [id number], FE and TIBC, MG #### [facility] [address] NRBC% 0.1 /100{WBC} Normal 0-0.5 [facility] Comment on above: Performed By: #### F ER, [id number], FE and TIBC, MG #### [address] Platelet mean volume (Bld) [Entitic vol] 8.5 fL Normal 6.6-10.1 [facility] Comment on above: Performed By: #### F ER, [id number], FE and TIBC, MG #### [address] Platelets (Bld) [#/Vol] 215 10*3/uL Normal 150-450 [facility] Comment on above: Performed By: #### F ER, [id number], FE and TIBC, MG #### [address] RBC (Bld) [#/Vol] 5.19 10*6/uL Normal 3.90-5.[address] [facility] Comment on above: Performed By: #### F ER, [id number], FE and TIBC, MG #### [address] WBC (Bld) [#/Vol] 7.6 10*3/uL Normal 4.1-10.5 [facility] Comment on above: Performed By: #### F ER, [id number], FE and TIBC, MG #### [address] Ketones Auto test strip (U) [Mass/Vol]Ordered By: Jose Martin Sen on 11-07-2022 Ketones (U) [Mass/Vol] Negative Negative [facility] Nitrite Test strip Ql (U)Ord ered By: Jose Martin Sen on 09-12-2023 Nitrite Ql (U) Negative Negative [facility] Potassiumon 11-07-2022 Potassium [Moles/Vol] 3.8 mmol/L Normal 3.5-5.1 [facility] Comment on above: Result Comment: PERF ORMED BY: [place] [address] PATHOLOGIST DELIVERY RN TERESA PATTERSON M.D. Performed By: #### F ER, [id number], FE and TIBC, MG #### [facility] [address] [place] [address] Protein Auto test strip (U) [Mass/Vol]Ordered By: Jose Martin Sen on 11-07-2022 Protein (U) [Mass/Vol] Negative Negative [facility] Specific gravity Auto test s trip (U) [Rel density]Ordered By: Jose Martin Sen on 11-07-2022 Specific gravity (U) [Rel density] 1.014 1.001-1.030 [facility] Urinalysison 11-07-2022 Appearance (U) Clear Normal Clear [facility] Comment on above: Order Comment: Comme nt add Comment add Performed By: #### F ER, [id number], FE and TIBC, MG #### [facility] [address] [place] [address] [place] Bilirubin,Urine Negative Normal Negative [facility] Comment on above: Order Comment: Comme nt add Comment add Performed By: #### F ER, [id number], FE and TIBC, MG #### [facility] [address] [place] [address] [place] Color (U) Yellow Normal Yellow [facility] Comment on above: Order Comment: Comme nt add Comment add Performed By: #### F ER, [id number], FE and TIBC, MG #### [facility] [address] [place] [address] [place] Glucose Ql (U) Normal Normal Normal [facility] Comment on above: Order Comment: Comme nt add Comment add Performed By: #### F ER, [id number], FE and TIBC, MG #### [facility] [address] [place] [address] Ketones Ql (U) Negative Normal Negative [facility] Comment on above: Order Comment: Comme nt add Comment add Performed By: #### F ER, [id number], FE and TIBC, MG #### [address] Leukocyte esterase Test strip Ql (U) Negative Normal Negative [facility] Comment on above: Order Comment: Comme nt add Comment add Performed By: #### F ER, [id number], FE and TIBC, MG #### [address] Nitrite,Urine Negative Normal Negative [facility] Comment on above: Order Comment: Comme nt add Comment add Performed By: #### F ER, [id number], FE and TIBC, MG #### [address] Occult Blood,Urine Negative Normal Negative [facility] Comment on above: Order Comment: Comme nt add Comment add Result Comment: PERF ORMED BY: [place] [address] PATHOLOGIST DELIVERY RN TERESA PATTERSON M.D. Performed By: #### F ER, [id number], FE and TIBC, MG #### [facility] [address] [place] [address] pH (U) 5.5 [pH] Normal 5.0-9.0 [facility] Comment on above: Order Comment: Comme nt add Comment add Performed By: #### F ER, [id number], FE and TIBC, MG #### [facility] [address] [place] [address] [place] Protein,Urine Negative Normal Negative [facility] Comment on above: Order Comment: Comme nt add Comment add Performed By: #### F ER, [id number], FE and TIBC, MG #### [address] Specificy [place],Urine 1.014 Normal 1.001-1.030 [facility] Comment on above: Order Comment: Comme nt add Comment add Performed By: #### F ER, [id number], FE and TIBC, MG #### [facility] [address] Urobilinogen,Urine Normal Normal Normal [facility] Comment on above: Order Comment: Comme nt add Comment add Performed By: #### F ER, [id number], FE and TIBC, MG #### [facility] [address] Urine clarity by refractomet ry automatedOrdered By: Jose Martin Sen on 11-07-2022 Clarity Refractometry automated (U) Clear Clear [facility] Urine glucose measurement by automated test strip (mass/volume)Ordered By: Jose Martin Sen on 11-07-2022 Glucose Auto test strip (U) [Mass/Vol] Normal mg/dL Normal [facility] Urine hemoglobin detection b y automated test stripOrdered By: Jose Martin Sen on 11-07-2022 Hemoglobin Auto test strip Ql (U) Negative Negative [facility] Urine leukocyte esterase det ection by automated test stripOrdered By: Jose Martin Sen on 11-07-2022 Leukocyte esterase Auto test strip Ql (U) Negative Negative [facility] Urobilinogen Auto test strip (U) [Mass/Vol]Ordered By: Jose Martin Sen on 11-07-2022 Urobilinogen (U) [Mass/Vol] Normal mg/dL Normal [facility] pH Auto test strip (U)Ordere d By: Jose Martin Sen on 11-07-2022 pH (U) 5.5 [pH] 5.0-9.0 [facility] Basic Metabolic Panelon 10-27 Anion gap [Moles/Vol] 11.0 mmol/L Normal 6.0-15.0 [facility] Comment on above: Performed By: #### F ER, [id number], FE and TIBC, MG #### [facility] [address] Calcium [Mass/Vol] 9.2 mg/dL Normal 8.6-10.3 [facility] Comment on above: Performed By: #### F ER, [id number], FE and TIBC, MG #### [facility] [address] Chloride [Moles/Vol] 105 mmol/L Normal 98-107 [facility] Comment on above: Performed By: #### F ER, [id number], FE and TIBC, MG #### [facility] [address] CO2 [Moles/Vol] 24.3 mmol/L Normal 21.0-31.0 [facility] Comment on above: Performed By: #### F ER, [id number], FE and TIBC, MG #### [facility] [address] Creatinine [Mass/Vol] 1.14 mg/dL Normal 0.70-1.30 [facility] Comment on above: Performed By: #### F ER, [id number], FE and TIBC, MG #### [address] Creatinine Clr Calc Pharmacy 63.15 [facility] Comment on above: Result Comment: PERF ORMED BY: [place] [address] PATHOLOGIST DELIVERY RN TERESA PATTERSON M.D. Performed By: #### F ER, [id number], FE and TIBC, MG #### [address] GFR/1.73 sq M.predicted MDRD (S/P/Bld) [Vol rate/Area] mL/min/{1.73_m2} [facility] Comment on above: Performed By: #### F ER, [id number], FE and TIBC, MG #### [address] Glucose [Mass/Vol] 104 mg/dL High 70-100 [facility] Comment on above: Result Comment: [facility] Glucose Reference Range is dependent on time and content of last meal. Glucose of more than 200 mg/dL in a nonstressed, ambulatory subject supports the diagnosis of Diabetes Mellitus. ADA recommended reference range Performed By: #### F ER, [id number], FE and TIBC, MG #### [facility] [address] Potassium [Moles/Vol] 3.3 mmol/L Low 3.5-5.1 [facility] Comment on above: Performed By: #### F ER, [id number], FE and TIBC, MG #### [facility] [address] Sodium [Moles/Vol] 137 mmol/L Normal 136-145 [facility] Comment on above: Performed By: #### F ER, [id number], FE and TIBC, MG #### [facility] [address] Urea nitrogen [Mass/Vol] 35 mg/dL High 7-25 [facility] Comment on above: Performed By: #### F ER, [id number], FE and TIBC, MG #### [facility] [address] Basic Metabolic Panelon 09-1 -2022 Anion gap [Moles/Vol] 11.0 mmol/L Normal 6.0-15.0 [facility] Comment on above: Performed By: #### B MP, CBC #### [facility] [address] Calcium [Mass/Vol] 9.3 mg/dL Normal 8.6-10.3 [facility] Comment on above: Performed By: #### B MP, CBC #### [facility] [address] [place] [address] [place] Chloride [Moles/Vol] 105 mmol/L Normal 98-107 [facility] Comment on above: Performed By: #### B MP, CBC #### [facility] [address] CO2 [Moles/Vol] 23.1 mmol/L Normal 21.0-31.0 [facility] Comment on above: Performed By: #### B MP, CBC #### [facility] [address] Creatinine [Mass/Vol] 1.42 mg/dL High 0.70-1.30 [facility] Comment on above: Performed By: #### B MP, CBC #### [facility] [address] [place] [address] [place] Creatinine Clr Calc Pharmacy 50.69 [facility] Comment on above: Result Comment: PERF ORMED BY: [place] [address] PATHOLOGIST DELIVERY RN TERESA PATTERSON M.D. Performed By: #### B MP, CBC #### [place] [address] [place] GFR/1.73 sq M.predicted MDRD (S/P/Bld) [Vol rate/Area] 53.489 mL/min/{1.73_m2} [facility] Comment on above: Performed By: #### B MP, CBC #### [address] Glucose [Mass/Vol] 100 mg/dL Normal 70-100 [facility] Comment on above: Result Comment: [facility] Glucose Reference Range is dependent on time and content of last meal. Glucose of more than 200 mg/dL in a nonstressed, ambulatory subject supports the diagnosis of Diabetes Mellitus. ADA recommended reference range Performed By: #### B MP, CBC #### [place] [address] [place] Potassium [Moles/Vol] 3.1 mmol/L Low 3.5-5.1 [facility] Comment on above: Performed By: #### B MP, CBC #### [address] Sodium [Moles/Vol] 136 mmol/L Normal 136-145 [facility] Comment on above: Performed By: #### B MP, CBC #### [place] [address] [place] Urea nitrogen [Mass/Vol] 37 mg/dL High 7-25 [facility] Comment on above: Performed By: #### B MP, CBC #### [facility] [address] Basic Metabolic Panelon 09-0 Anion gap [Moles/Vol] 12.5 mmol/L Normal 6.0-15.0 [facility] Comment on above: Performed By: #### F ER, [id number], FE and TIBC, MG #### [facility] [address] Calcium [Mass/Vol] 9.3 mg/dL Normal 8.6-10.3 [facility] Comment on above: Performed By: #### F ER, [id number], FE and TIBC, MG #### [facility] [address] Chloride [Moles/Vol] 104 mmol/L Normal 98-107 [facility] Comment on above: Performed By: #### F ER, [id number], FE and TIBC, MG #### [facility] [address] CO2 [Moles/Vol] 23.7 mmol/L Normal 21.0-31.0 [facility] Comment on above: Performed By: #### F ER, [id number], FE and TIBC, MG #### [facility] [address] Creatinine [Mass/Vol] 1.26 mg/dL Normal 0.70-1.30 [facility] Comment on above: Performed By: #### F ER, [id number], FE and TIBC, MG #### [facility] [address] Creatinine Clr Calc Pharmacy 58.54 Normal [facility] Comment on above: Performed By: #### F ER, [id number], FE and TIBC, MG #### [facility] [address] GFR/1.73 sq M.predicted MDRD (S/P/Bld) [Vol rate/Area] mL/min/{1.73_m2} Normal [facility] Comment on above: Performed By: #### F ER, [id number], FE and TIBC, MG #### [facility] [address] Glucose [Mass/Vol] 102 mg/dL High 70-100 [facility] Comment on above: Result Comment: [place] Glucose Reference Range is dependent on time and content of last meal. Glucose of more than 200 mg/dL in a nonstressed, ambulatory subject supports the diagnosis of Diabetes Mellitus. ADA recommended reference range Performed By: #### F ER, [id number], FE and TIBC, MG #### [facility] [address] Potassium [Moles/Vol] 3.2 mmol/L Low 3.5-5.1 [facility] Comment on above: Performed By: #### F ER, [id number], FE and TIBC, MG #### [address] Sodium [Moles/Vol] 137 mmol/L Normal 136-145 [facility] Comment on above: Performed By: #### F ER, [id number], FE and TIBC, MG #### [address] Urea nitrogen [Mass/Vol] 29 mg/dL High 7-25 [facility] Comment on above: Performed By: #### F ER, [id number], FE and TIBC, MG #### [facility] [address] Magnesiumon 11-04-2022 Magnesium [Mass/Vol] 2.0 mg/dL Normal 1.9-2.7 [facility] Comment on above: Result Comment: PERF ORMED BY: [place] [address] PATHOLOGIST DELIVERY RN TERESA PATTERSON M.D. Performed By: #### F ER, [id number], FE and TIBC, MG #### [facility] [address] [place] [address] [facility] Magnesium [Mass/volume] in S shani or PlasmaOrdered By: Sara Osorio on 11-04-2022 Magnesium [Mass/Vol] 2.0 mg/dL 1.9-2.7 [facility] Alanine aminotransferase [En zymatic activity/volume] in Serum or PlasmaOrdered By: Janice Altamirano on 11-03-2022 ALT [Catalytic activity/Vol] 17 U/L 7-52 [facility] Albumin [Mass/volume] in Ser um or Plasma by Bromocresol green (BCG) dye binding methoOrdered By: Janice Altamirano on 11-03-2022 Albumin BCG dye [Mass/Vol] 4.5 g/dL 3.5-5.7 [facility] Alkaline phosphatase [Enzyma tic activity/volume] in Serum or PlasmaOrdered By: Janice Altamirano on 11-03-2022 ALP [Catalytic activity/Vol] 64 U/L 34-104 [facility] Anisocytosis LM Ql (Bld)Orde red By: Janice Altamirano on 11-03-2022 Anisocytosis Ql (Bld) Slight Fir [facility] Aspartate aminotransferase [ Enzymatic activity/volume] in Serum or PlasmaOrdered By: Janice Altamirano on 11-03-2022 AST [Catalytic activity/Vol] 19 U/L 13-39 [facility] Bilirubin.total [Mass/volume ] in Serum or PlasmaOrdered By: Janice Altamirano on 11-03-2022 Bilirubin [Mass/Vol] 1.6 mg/dL 0.3-1.0 [facility] Comment on above: Samples from patient s who have taken Naproxen have shown spurious elevation in Total Bilirubin levels. A metabolite of Naproxen, O-desmethylnaproxen, has been shown to interfere with the Ti-Dakota method for measuring Total Bilirubin. Comprehensive Metabolic Pane nitza 11-03-2022 Albumin [Mass/Vol] 4.5 g/dL Normal 3.5-5.7 [facility] Comment on above: Performed By: #### S CAN CBC, PAB, CMP #### [place] [address] Albumin/Globulin [Mass ratio] 1.5 {ratio} Normal [facility] Comment on above: Performed By: #### S CAN CBC, PAB, CMP #### [address] ALP [Catalytic activity/Vol] 64 U/L Normal 34-104 [facility] Comment on above: Performed By: #### S CAN CBC, PAB, CMP #### [address] ALT [Catalytic activity/Vol] 17 U/L Normal 7-52 [facility] Comment on above: Performed By: #### S CAN CBC, PAB, CMP #### [address] Anion gap [Moles/Vol] 10.1 mmol/L Normal 6.0-15.0 [facility] Comment on above: Performed By: #### S CAN CBC, PAB, CMP #### [address] AST [Catalytic activity/Vol] 19 U/L Normal 13-39 [facility] Comment on above: Performed By: #### S CAN CBC, PAB, CMP #### [address] Bilirubin [Mass/Vol] 1.6 mg/dL High 0.3-1.0 [facility] Comment on above: Result Comment: [facility] who have taken Nap[facility]en have shown spurious elevation in Total Bilirubin levels. A metabolite of Naproxen, O-desmethylnaproxen, has been shown to interfere with the Jendrassik-Grof method for measuring Total Bilirubin. Performed By: #### S CAN CBC, PAB, CMP #### [address] Calcium [Mass/Vol] 9.6 mg/dL Normal 8.6-10.3 [facility] Comment on above: Performed By: #### S CAN CBC, PAB, CMP #### [place] [address] [place] Chloride [Moles/Vol] 102 mmol/L Normal 98-107 [facility] Comment on above: Performed By: #### S CAN CBC, PAB, CMP #### [facility] [address] CO2 [Moles/Vol] 28.3 mmol/L Normal 21.0-31.0 [facility] Comment on above: Performed By: #### S CAN CBC, PAB, CMP #### [facility] [address] Creatinine [Mass/Vol] 1.21 mg/dL Normal 0.70-1.30 [facility] Comment on above: Performed By: #### S CAN CBC, PAB, CMP #### [address] Creatinine Clr Calc Pharmacy 60.96 [facility] Comment on above: Performed By: #### S CAN CBC, PAB, CMP #### [address] GFR/1.73 sq M.predicted MDRD (S/P/Bld) [Vol rate/Area] mL/min/{1.73_m2} [facility] Comment on above: Performed By: #### S CAN CBC, PAB, CMP #### [address] Globulin (S) [Mass/Vol] 3.1 g/dL [facility] Comment on above: Performed By: #### S CAN CBC, PAB, CMP #### [address] Glucose [Mass/Vol] 95 mg/dL Normal 70-100 [facility] Comment on above: Result Comment: [place] Glucose Reference Range is dependent on time and content of last meal. Glucose of more than 200 mg/dL in a nonstressed, ambulatory subject supports the diagnosis of Diabetes Mellitus. ADA recommended reference range Performed By: #### S CAN CBC, PAB, CMP #### [address] Potassium [Moles/Vol] 3.4 mmol/L Low 3.5-5.1 [facility] Comment on above: Performed By: #### S CAN CBC, PAB, CMP #### [facility] [address] Protein [Mass/Vol] 7.6 g/dL Normal 6.4-8.9 [facility] Comment on above: Performed By: #### S CAN CBC, PAB, CMP #### [facility] [address] Sodium [Moles/Vol] 137 mmol/L Normal 136-145 [facility] Comment on above: Performed By: #### S CAN CBC, PAB, CMP #### [facility] [address] Urea nitrogen [Mass/Vol] 23 mg/dL Normal 7-25 [facility] Comment on above: Performed By: #### S CAN CBC, PAB, CMP #### [facility] [address] Globulin Calc (S) [Mass/Vol] Ordered By: Janice Altamirano on 11-03-2022 Globulin (S) [Mass/Vol] 3.1 g/dL [facility] Microcytes LM Ql (Bld)Ordere d By: Janice Altamirano on 11-03-2022 Microcytes Ql (Bld) Slight [facility] Platelet adequacy [Presence] in Blood by Light microscopyOrdered By: Janice Altamirano on 11-03-2022 Platelets LM Ql (Bld) Normal Normal [facility] Platelet morphology finding [Identifier] in BloodOrdered By: Janice Altamirano on 11-03-2022 Platelet morphology finding Nom (Bld) Normal Normal [facility] Potassiumon 11-03-2022 Potassium [Moles/Vol] 3.4 mmol/L Low 3.5-5.1 [facility] Comment on above: Result Comment: PERF ORMED BY: [place] [address] PATHOLOGIST DELIVERY RN TERESA PATTERSON M.D. Performed By: #### K #### [facility] [address] Prealbuminon 11-03-2022 Prealbumin [Mass/Vol] 28.1 mg/dL Normal 17.0-34.0 [facility] Comment on above: Result Comment: PERF ORMED BY: [place] [address] PATHOLOGIST DELIVERY RN TERESA PATTERSON M.D. Performed By: #### S CAN CBC, PAB, CMP #### [address] Prealbumin [Mass/volume] in Serum or PlasmaOrdered By: Janice Altamirano on 11-03-2022 Prealbumin [Mass/Vol] 28.1 mg/dL 17.0-34.0 [facility] Protein [Mass/volume] in Ser um or PlasmaOrdered By: Janice Altamirano on 11-03-2022 Protein [Mass/Vol] 7.6 g/dL 6.4-8.9 [facility] RBC morphologyOrdered By: Twan Altamirano on 11-03-2022 RBC morphology finding Nom (Bld) N/A [facility] Scan and CBCon 11-03-2022 Anisocytosis Ql (Bld) Slight Normal [facility] Comment on above: Performed By: #### B MP, CBC #### [facility] [address] [place] [address] [place] Basophils (Bld) [#/Vol] 0.1 10*3/uL Normal 0.0-0.2 [facility] Comment on above: Performed By: #### B MP, CBC #### [facility] [address] [place] [address] [place] Basophils/100 WBC (Bld) 0.8 % Normal . [facility] Comment on above: Performed By: #### B MP, CBC #### [facility] [address] [place] [address] [place] Eosinophils (Bld) [#/Vol] 0.1 10*3/uL Normal 0.0-0.45 [facility] Comment on above: Performed By: #### B MP, CBC #### [facility] [address] Eosinophils/100 WBC (Bld) 0.8 % Normal . [facility] Comment on above: Performed By: #### B MP, CBC #### [facility] [address] Erythrocyte distribution width (RBC) [Ratio] 14.3 % Normal 12.0-14.8 [facility] Comment on above: Performed By: #### B MP, CBC #### [facility] [address] Hematocrit (Bld) [Volume fraction] 49.6 % Normal 38.8-50.0 [facility] Comment on above: Performed By: #### B MP, CBC #### [address] Hemoglobin (Bld) [Mass/Vol] 17.4 g/dL High 13.0-17.0 [facility] Comment on above: Performed By: #### B MP, CBC #### [address] Lymphocytes (Bld) [#/Vol] 3.0 10*3/uL Normal 1.00-4.8 [facility] Comment on above: Performed By: #### B MP, CBC #### [address] Lymphocytes/100 WBC (Bld) 21.6 % Normal . [facility] Comment on above: Performed By: #### B MP, CBC #### [facility] [address] [place] [address] [place] MCH (RBC) [Entitic mass] 30.8 pg Normal 27.5-35.2 [facility] Comment on above: Performed By: #### B MP, CBC #### [address] MCV (RBC) [Entitic vol] 87.9 fL Normal 83.5-101 [facility] Comment on above: Performed By: #### B MP, CBC #### [address] Mean Corpuscular HGB Conc 35.0 g/dL Normal 32.5-35.6 [facility] Comment on above: Performed By: #### B MP, CBC #### [address] Microcytosis Slight Normal [facility] Comment on above: Performed By: #### B MP, CBC #### [address] Monocytes (Bld) [#/Vol] 1.7 10*3/uL High 0.0-0.8 [facility] Comment on above: Performed By: #### B MP, CBC #### [address] Monocytes/100 WBC (Bld) 12.2 % Normal . [facility] Comment on above: Performed By: #### B MP, CBC #### [address] Neutrophils (Bld) [#/Vol] 8.9 10*3/uL High 1.8-7.7 [facility] Comment on above: Performed By: #### B MP, CBC #### [address] Neutrophils/100 WBC (Bld) 64.6 % Normal . [facility] Comment on above: Performed By: #### B MP, CBC #### [address] NRBC% 0.0 /100{WBC} Normal 0-0.5 [facility] Comment on above: Performed By: #### B MP, CBC #### [address] Platelet Estimate Normal Normal Normal [facility] Comment on above: Performed By: #### B MP, CBC #### [address] Platelet mean volume (Bld) [Entitic vol] 8.7 fL Normal 6.6-10.1 [facility] Comment on above: Performed By: #### B MP, CBC #### [address] Platelet Morphology Normal Normal Normal [facility] Comment on above: Result Comment: PERF ORMED BY: [place] [address] PATHOLOGIST DELIVERY RN TERESA PATTERSON M.D. Performed By: #### B MP, CBC #### [address] Platelets (Bld) [#/Vol] 191 10*3/uL Normal 150-450 [facility] Comment on above: Performed By: #### B MP, CBC #### [address] RBC (Bld) [#/Vol] 5.65 10*6/uL High 3.90-5.[address] [facility] Comment on above: Performed By: #### B MP, CBC #### [address] WBC (Bld) [#/Vol] 13.7 10*3/uL High 4.1-10.[address] [facility] Comment on above: Performed By: #### B MP, CBC #### [address] Serum or plasma albumin/glob ulin mass ratioOrdered By: Janice Altamirano on 11-03-2022 Albumin/Globulin [Mass ratio] 1.5 {ratio} [facility] Stool Cultureon 11-03-2022 Stool culture Comment add to colle cted stool sample Negative for Shiga Toxin 1 Negative for Shiga Toxin 2 -- A negative Shiga Toxin result may occur if the antigen level in the specimen is below the detection limit of the assay. Stool culture results No Salmonella, Shigella, Campy or E. coli 0157:H7 Isolated PERFORMED BY: [place] [address] PATHOLOGIST DELIVERY RN TERESA PATTERSON M.D. [facility] Comment on above: Performed By: #### C USTOOL #### [facility] [address] Stool bacteria identificatio n by cultureOrdered By: Sara Osorio on 11-03-2022 Bacteria identified Cx Nom (Stl) [facility] Basic Metabolic Panelon Anion gap [Moles/Vol] 13.3 mmol/L Normal 6.0-15.0 [facility] Comment on above: Performed By: #### F ER, [id number], FE and TIBC, MG #### [address] Calcium [Mass/Vol] 9.5 mg/dL Normal 8.6-10.3 [facility] Comment on above: Performed By: #### F ER, [id number], FE and TIBC, MG #### [facility] [address] [place] [address] [place] Chloride [Moles/Vol] 103 mmol/L Normal 98-107 [facility] Comment on above: Performed By: #### F ER, [id number], FE and TIBC, MG #### [facility] [address] [place] [address] CO2 [Moles/Vol] 24.9 mmol/L Normal 21.0-31.0 [facility] Comment on above: Performed By: #### F ER, [id number], FE and TIBC, MG #### [facility] [address] [place] [address] [place] Creatinine [Mass/Vol] 1.10 mg/dL Normal 0.70-1.30 [facility] Comment on above: Performed By: #### F ER, [id number], FE and TIBC, MG #### [facility] [address] [place] [address] [place] Creatinine Clr Calc Pharmacy 67.50 [facility] Comment on above: Result Comment: PERF ORMED BY: [place] [address] PATHOLOGIST DELIVERY RN TERESA PATTERSON M.D. Performed By: #### F ER, [id number], FE and TIBC, MG #### [facility] [address] [place] [address] [place] GFR/1.73 sq M.predicted MDRD (S/P/Bld) [Vol rate/Area] mL/min/{1.73_m2} [facility] Comment on above: Performed By: #### F ER, [id number], FE and TIBC, MG #### [address] Glucose [Mass/Vol] 114 mg/dL High 70-100 [facility] Comment on above: Result Comment: [place] Glucose Reference Range is dependent on time and content of last meal. Glucose of more than 200 mg/dL in a nonstressed, ambulatory subject supports the diagnosis of Diabetes Mellitus. ADA recommended reference range Performed By: #### F ER, [id number], FE and TIBC, MG #### [address] Potassium [Moles/Vol] 3.2 mmol/L Low 3.5-5.1 [facility] Comment on above: Performed By: #### F ER, [id number], FE and TIBC, MG #### [address] Sodium [Moles/Vol] 138 mmol/L Normal 136-145 [facility] Comment on above: Performed By: #### F ER, [id number], FE and TIBC, MG #### [address] Urea nitrogen [Mass/Vol] 20 mg/dL Normal 7-25 [facility] Comment on above: Performed By: #### F ER, [id number], FE and TIBC, MG #### [facility] [address] [place] [address] [place] Basophils Auto (Bld) [#/Vol] Ordered By: John RamirezGarcia on 11-02-2022 Basophils (Bld) [#/Vol] 0.1 10*3/uL 0.0-0.2 [facility] Basophils/100 WBC Auto (Bld) Ordered By: [facility] on 11-02-2022 Basophils/100 WBC (Bld) 0.8 % . [facility] Calcium [Mass/volume] in Ser um or PlasmaOrdered By: [facility] on 11-02-2022 Calcium [Mass/Vol] 9.5 mg/dL 8.6-10.3 [facility] Carbon dioxide, total [Moles /volume] in Serum or PlasmaOrdered By: [facility] on 11-02-2022 CO2 [Moles/Vol] 24.9 mmol/L 21.0-31.0 [facility] Chloride [Moles/volume] in S shani or PlasmaOrdered By: John [place] on 11-02-2022 Chloride [Moles/Vol] 103 mmol/L 98-107 [facility] Complete Blood Count Auto Di ffon 11-02-2022 Basophils (Bld) [#/Vol] 0.1 10*3/uL Normal 0.0-0.2 [facility] Comment on above: Result Comment: PERF ORMED BY: [facility] [address] [facility] [place] [address] PATHOLOGIST DELIVERY RN TERESA PATTERSON M.D. Performed By: #### F ER, [id number], FE and TIBC, MG #### [facility] [address] [place] [address] [place] Basophils/100 WBC (Bld) 0.8 % Normal . [facility] Comment on above: Performed By: #### F ER, [id number], FE and TIBC, MG #### [facility] [address] [place] [address] [place] Eosinophils (Bld) [#/Vol] 0.0 10*3/uL Normal 0.0-0.45 [facility] Comment on above: Performed By: #### F ER, [id number], FE and TIBC, MG #### [address] Eosinophils/100 WBC (Bld) 0.1 % Normal . [facility] Comment on above: Performed By: #### F ER, [id number], FE and TIBC, MG #### [address] Erythrocyte distribution width (RBC) [Ratio] 14.5 % Normal 12.0-14.8 [facility] Comment on above: Performed By: #### F ER, [id number], FE and TIBC, MG #### [address] Hematocrit (Bld) [Volume fraction] 47.6 % Normal 38.8-50.0 [facility] Comment on above: Performed By: #### F ER, [id number], FE and TIBC, MG #### [address] Hemoglobin (Bld) [Mass/Vol] 16.8 g/dL Normal 13.0-17.0 [facility] Comment on above: Performed By: #### F ER, [id number], FE and TIBC, MG #### [address] Lymphocytes (Bld) [#/Vol] 2.6 10*3/uL Normal 1.00-4.8 [facility] Comment on above: Performed By: #### F ER, [id number], FE and TIBC, MG #### [address] Lymphocytes/100 WBC (Bld) 18.5 % Normal . [facility] Comment on above: Performed By: #### F ER, [id number], FE and TIBC, MG #### [address] MCH (RBC) [Entitic mass] 30.8 pg Normal 27.5-35.2 [facility] Comment on above: Performed By: #### F ER, [id number], FE and TIBC, MG #### [facility] [address] [place] [address] MCV (RBC) [Entitic vol] 86.9 fL Normal 83.5-101 [facility] Comment on above: Performed By: #### F ER, [id number], FE and TIBC, MG #### [address] Mean Corpuscular HGB Conc 35.4 g/dL Normal 32.5-35.6 [facility] Comment on above: Performed By: #### F ER, [id number], FE and TIBC, MG #### [address] Monocytes (Bld) [#/Vol] 1.3 10*3/uL High 0.0-0.8 [facility] Comment on above: Performed By: #### F ER, [id number], FE and TIBC, MG #### [address] Monocytes/100 WBC (Bld) 9.2 % Normal . [facility] Comment on above: Performed By: #### F ER, [id number], FE and TIBC, MG #### [address] Neutrophils (Bld) [#/Vol] 10.2 10*3/uL High 1.8-7.7 [facility] Comment on above: Performed By: #### F ER, [id number], FE and TIBC, MG #### [address] Neutrophils/100 WBC (Bld) 71.4 % Normal . [facility] Comment on above: Performed By: #### F ER, [id number], FE and TIBC, MG #### [address] NRBC% 0.2 /100{WBC} Normal 0-0.5 [facility] Comment on above: Performed By: #### F ER, [id number], FE and TIBC, MG #### [facility] [address] Platelet mean volume (Bld) [Entitic vol] 8.7 fL Normal 6.6-10.1 [facility] Comment on above: Performed By: #### F ER, [id number], FE and TIBC, MG #### [facility] [address] Platelets (Bld) [#/Vol] 203 10*3/uL Normal 150-450 [facility] Comment on above: Performed By: #### F ER, [id number], FE and TIBC, MG #### [facility] [address] RBC (Bld) [#/Vol] 5.47 10*6/uL Normal 3.90-5.[address] [facility] Comment on above: Performed By: #### F ER, [id number], FE and TIBC, MG #### [facility] [address] WBC (Bld) [#/Vol] 14.3 10*3/uL High 4.1-10.[address] [facility] Comment on above: Performed By: #### F ER, [id number], FE and TIBC, MG #### [facility] [address] Creatinine [Mass/volume] in Serum or PlasmaOrdered By: John Garcia on 11-02-2022 Creatinine [Mass/Vol] 1.10 mg/dL 0.70-1.30 [facility] Eosinophils Auto (Bld) [#/Vo l]Ordered By: John Garcia on 11-02-2022 Eosinophils (Bld) [#/Vol] 0.0 10*3/uL 0.0-0.45 [facility] Eosinophils/100 WBC Auto (Bl d)Ordered By: John Garcia on 11-02-2022 Eosinophils/100 WBC (Bld) 0.1 % . [facility] Erythrocyte distribution wid th Auto (RBC) [Ratio]Ordered By: John [place] on 11-02-2022 Erythrocyte distribution width (RBC) [Ratio] 14.5 % 12.0-14.8 [facility] Glucose [Mass/volume] in Ser um or PlasmaOrdered By: John RamirezGarcia on 11-02-2022 Glucose [Mass/Vol] 114 mg/dL 70-100 [facility] Comment on above: ADA recommended refe rence rangeRandom Glucose Reference Range is dependent on time and content of last meal. Glucose of more than 200 mg/dL in a nonstressed, ambulatory subject supports the diagnosis of Diabetes Mellitus. Hematocrit Auto (Bld) [Volum e fraction]Ordered By: John [place] on 11-02-2022 Hematocrit (Bld) [Volume fraction] 47.6 % 38.8-50.0 [facility] Hemoglobin [Mass/volume] in BloodOrdered By: John RamirezGarcia on 11-02-2022 Hemoglobin (Bld) [Mass/Vol] 16.8 g/dL 13.0-17.0 [facility] Leukocytes [#/volume] correc khadra for nucleated erythrocytes in Blood by Automated counOrdered By: John [place] on 11-02-2022 WBC corrected for nucl RBC Auto (Bld) [#/Vol] 14.3 10*3/uL 4.1-10.5 [facility] Lymphocytes Auto (Bld) [#/Vo l]Ordered By: John RamirezGarcia on 11-02-2022 Lymphocytes (Bld) [#/Vol] 2.6 10*3/uL 1.00-4.8 [facility] Lymphocytes/100 WBC Auto (Bl d)Ordered By: John [place] on 11-02-2022 Lymphocytes/100 WBC (Bld) 18.5 % . [facility] MCH Auto (RBC) [Entitic mass ]Ordered By: John Garcia on 11-02-2022 MCH (RBC) [Entitic mass] 30.8 pg 27.5-35.2 [facility] MCHC Auto (RBC) [Mass/Vol]Or dered By: John RamirezGarcia on 11-02-2022 MCHC (RBC) [Mass/Vol] 35.4 g/dL 32.5-35.6 [facility] MCV Auto (RBC) [Entitic vol] Ordered By: John RamirezGarcia on 11-02-2022 MCV (RBC) [Entitic vol] 86.9 fL 83.5-101 [facility] Monocytes Auto (Bld) [#/Vol] Ordered By: John [place] on 11-02-2022 Monocytes (Bld) [#/Vol] 1.3 10*3/uL 0.0-0.8 [facility] Monocytes/100 WBC Auto (Bld) [facility] Monocytes/100 WBC (Bld) 9.2 % . [facility] Neutrophils Auto (Bld) [#/Vo l]Ordered By: [facility] on 11-02-2022 Neutrophils (Bld) [#/Vol] 10.2 10*3/uL 1.8-7.7 [facility] Neutrophils/100 WBC Auto (Bl d)Ordered By: John [place] on 11-02-2022 Neutrophils/100 WBC (Bld) 71.4 % . [facility] No Panel InformationOrdered By: John [place] on 11-02-2022 Estimated GFR (CKD-EPI) > 60.0 mL/Min [facility] Creatinine Clearance (Chem 67.50 [facility] Nucleated erythrocytes [Pres ence] in Blood by Automated countOrdered By: John [place] on 11-02-2022 Nucleated RBC Auto Ql (Bld) 0.2 /100{WBC} 0-0.5 [facility] Platelet mean volume Auto (B ld) [Entitic vol]Ordered By: John RamirezGarcia on 11-02-2022 Platelet mean volume (Bld) [Entitic vol] 8.7 fL 6.6-10.1 [facility] Platelets Auto (Bld) [#/Vol] Ordered By: John [place] on 11-02-2022 Platelets (Bld) [#/Vol] 203 10*3/uL 150-450 [facility] Potassium [Moles/volume] in Serum or PlasmaOrdered By: John Garcia on 09-07-2023 Potassium [Moles/Vol] 3.2 mmol/L 3.5-5.1 [facility] RBC Auto (Bld) [#/Vol]Ordere d By: John Garcia on 11-02-2022 RBC (Bld) [#/Vol] 5.47 10*6/uL 3.90-5.[address] [facility] Serum or plasma anion gap de terminationOrdered By: John Garcia on 11-02-2022 Anion gap [Moles/Vol] 13.3 mmol/L 6.0-15.0 [facility] Sodium [Moles/volume] in Ser um or PlasmaOrdered By: John RamirezGarcia on 11-02-2022 Sodium [Moles/Vol] 138 mmol/L 136-145 [facility] Urea nitrogen [Mass/volume] in Serum or PlasmaOrdered By: John Garcia on 11-02-2022 Urea nitrogen [Mass/Vol] 20 mg/dL 7-25 [facility] WBC Auto (Bld) [#/Vol]Ordere d By: John Garcia on 11-02-2022 WBC (Bld) [#/Vol] 14.3 10*3/uL 4.1-10.[address] [facility] Basic Metabolic Panelon Anion gap [Moles/Vol] 13.6 mmol/L Normal 6.0-15.0 [facility] Comment on above: Performed By: #### B MP, CBC #### [facility] [address] [place] [address] [place] Calcium [Mass/Vol] 9.5 mg/dL Normal 8.6-10.3 [facility] Comment on above: Performed By: #### B MP, CBC #### [facility] [address] [place] [id number] [place] Chloride [Moles/Vol] 105 mmol/L Normal 98-107 [facility] Comment on above: Performed By: #### B MP, CBC #### [facility] [address] [place] [id number] [place] CO2 [Moles/Vol] 25.6 mmol/L Normal 21.0-31.0 [facility] Comment on above: Performed By: #### B MP, CBC #### [facility] [address] [place] [address] [place] Creatinine [Mass/Vol] 1.03 mg/dL Normal 0.70-1.30 [facility] Comment on above: Performed By: #### B MP, CBC #### [facility] [address] [place] [address] [place] Creatinine Clr Calc Pharmacy 72.09 [facility] Comment on above: Result Comment: PERF ORMED BY: [facility] [address] [place] [address] PATHOLOGIST DELIVERY RN TERESA PATTERSON M.D. Performed By: #### B MP, CBC #### [facility] [address] [place] [address] [place] GFR/1.73 sq M.predicted MDRD (S/P/Bld) [Vol rate/Area] mL/min/{1.73_m2} [facility] Comment on above: Performed By: #### B MP, CBC #### [facility] [address] Glucose [Mass/Vol] 108 mg/dL High 70-100 [facility] Comment on above: Result Comment: [place] om Glucose Reference Range is dependent on time and content of last meal. Glucose of more than 200 mg/dL in a nonstressed, ambulatory subject supports the diagnosis of Diabetes Mellitus. ADA recommended reference range Performed By: #### B MP, CBC #### [facility] [address] [place] [address] [place] Potassium [Moles/Vol] 3.2 mmol/L Low 3.5-5.1 [facility] Comment on above: Performed By: #### B MP, CBC #### [facility] [address] [place] [address] [place] Sodium [Moles/Vol] 141 mmol/L Normal 136-145 [facility] Comment on above: Performed By: #### B MP, CBC #### [facility] [address] [place] [address] [place] Urea nitrogen [Mass/Vol] 17 mg/dL Normal 7-25 [facility] Comment on above: Performed By: #### B MP, CBC #### [address] Complete Blood Count Auto Di ffon 11-01-2022 Basophils (Bld) [#/Vol] 0.1 10*3/uL Normal 0.0-0.2 [facility] Comment on above: Result Comment: PERF ORMED BY: [place] [address] PATHOLOGIST DELIVERY RN TERESA PATTERSON M.D. Performed By: #### B MP, CBC #### [address] [address] Basophils/100 WBC (Bld) 0.7 % Normal . [facility] Comment on above: Performed By: #### B MP, CBC #### [address] Eosinophils (Bld) [#/Vol] 0.0 10*3/uL Normal 0.0-0.45 [facility] Comment on above: Performed By: #### B MP, CBC #### [address] Eosinophils/100 WBC (Bld) 0.3 % Normal . [facility] Comment on above: Performed By: #### B MP, CBC #### [address] Erythrocyte distribution width (RBC) [Ratio] 14.0 % Normal 12.0-14.8 [facility] Comment on above: Performed By: #### B MP, CBC #### [address] Hematocrit (Bld) [Volume fraction] 48.2 % Normal 38.8-50.0 [facility] Comment on above: Performed By: #### B MP, CBC #### [address] Hemoglobin (Bld) [Mass/Vol] 16.8 g/dL Normal 13.0-17.0 [facility] Comment on above: Performed By: #### B MP, CBC #### [facility] [address] Lymphocytes (Bld) [#/Vol] 3.1 10*3/uL Normal 1.00-4.8 [facility] Comment on above: Performed By: #### B MP, CBC #### [facility] [address] Lymphocytes/100 WBC (Bld) 23.0 % Normal . [facility] Comment on above: Performed By: #### B MP, CBC #### [facility] [address] MCH (RBC) [Entitic mass] 30.6 pg Normal 27.5-35.2 [facility] Comment on above: Performed By: #### B MP, CBC #### [facility] [address] MCV (RBC) [Entitic vol] 87.8 fL Normal 83.5-101 [facility] Comment on above: Performed By: #### B MP, CBC #### [facility] [address] Mean Corpuscular HGB Conc 34.8 g/dL Normal 32.5-35.6 [facility] Comment on above: Performed By: #### B MP, CBC #### [facility] [address] [place] [address] [place] Monocytes (Bld) [#/Vol] 1.0 10*3/uL High 0.0-0.8 [facility] Comment on above: Performed By: #### B MP, CBC #### [facility] [address] [place] [address] [place] Monocytes/100 WBC (Bld) 7.7 % Normal . [facility] Comment on above: Performed By: #### B MP, CBC #### [facility] [address] Neutrophils (Bld) [#/Vol] 9.2 10*3/uL High 1.8-7.7 [facility] Comment on above: Performed By: #### B MP, CBC #### [facility] [address] [place] [address] [place] Neutrophils/100 WBC (Bld) 68.3 % Normal . [facility] Comment on above: Performed By: #### B MP, CBC #### [facility] [address] NRBC% 0.6 /100{WBC} High 0-0.5 [facility] Comment on above: Performed By: #### B MP, CBC #### [facility] [address] Platelet mean volume (Bld) [Entitic vol] 9.0 fL Normal 6.6-10.1 [facility] Comment on above: Performed By: #### B MP, CBC #### [facility] [address] [place] [address] [place] Platelets (Bld) [#/Vol] 206 10*3/uL Normal 150-450 [facility] Comment on above: Performed By: #### B MP, CBC #### [facility] [address] [place] [address] [place] RBC (Bld) [#/Vol] 5.48 10*6/uL Normal 3.90-5.[address] [facility] Comment on above: Performed By: #### B MP, CBC #### [facility] [address] [place] [address] [place] WBC (Bld) [#/Vol] 13.5 10*3/uL High 4.1-10.[address] [facility] Comment on above: Performed By: #### B MP, CBC #### [facility] [address] A1C with Estimated Average G luon 10-31-2022 Glucose [Mass/Vol] 128 mg/dL Normal [facility] Comment on above: Result Comment: PERF ORMED BY: [place] [address] PATHOLOGIST DELIVERY RN JIANLAN SUN M.D. Performed By: #### F ER, [id number], FE and TIBC, MG #### [facility] [address] HbA1c (Bld) [Mass fraction] 6.1 % High 4.3-5.6 [facility] Comment on above: Result Comment: Incr eased risk for diabetes: 5.7 - 6.4 diabetes: >6.4 glycemic control for adults with diabetes: <7.0 Performed By: #### F ER, [id number], FE and TIBC, MG #### [facility] [address] Basic Metabolic Panelon 09-0 -2022 Anion gap [Moles/Vol] 12.4 mmol/L Normal 6.0-15.0 [facility] Comment on above: Performed By: #### B MP, CBC #### [facility] [address] Calcium [Mass/Vol] 9.3 mg/dL Normal 8.6-10.3 [facility] Comment on above: Performed By: #### B MP, CBC #### [facility] [address] Chloride [Moles/Vol] 105 mmol/L Normal 98-107 [facility] Comment on above: Performed By: #### B MP, CBC #### [facility] [address] CO2 [Moles/Vol] 23.8 mmol/L Normal 21.0-31.0 [facility] Comment on above: Performed By: #### B MP, CBC #### [facility] [address] [place] [address] [place] Creatinine [Mass/Vol] 0.88 mg/dL Normal 0.70-1.30 [facility] Comment on above: Performed By: #### B MP, CBC #### [facility] [address] Creatinine Clr Calc Pharmacy 84.38 Normal [facility] Comment on above: Result Comment: PERF ORMED BY: [place] [address] PATHOLOGIST DELIVERY RN TERESA PATTERSON M.D. Performed By: #### B MP, CBC #### [place] [address] [place] GFR/1.73 sq M.predicted MDRD (S/P/Bld) [Vol rate/Area] mL/min/{1.73_m2} Normal [facility] Comment on above: Performed By: #### B MP, CBC #### [address] Glucose [Mass/Vol] 110 mg/dL High 70-100 [facility] Comment on above: Result Comment: [facility] Glucose Reference Range is dependent on time and content of last meal. Glucose of more than 200 mg/dL in a nonstressed, ambulatory subject supports the diagnosis of Diabetes Mellitus. ADA recommended reference range Performed By: #### B MP, CBC #### [address] Potassium [Moles/Vol] 3.2 mmol/L Low 3.5-5.1 [facility] Comment on above: Performed By: #### B MP, CBC #### [address] Sodium [Moles/Vol] 138 mmol/L Normal 136-145 [facility] Comment on above: Performed By: #### B MP, CBC #### [facility] [address] [place] [address] [place] Urea nitrogen [Mass/Vol] 12 mg/dL Normal 7-25 [facility] Comment on above: Performed By: #### B MP, CBC #### [address] angio neckon 10-31-2022 CT angio neck [facility] Main [place] [address] [place] [address] CT Scan Report Signed Patient: Viraj Doherty MR#: [id number] : 1955 Acct:[id number] Age/Sex: 67 / M ADM Date: 10/30/22 Loc: 4 Room: [id number] Type: ADM IN Attending Dr: Davey Harding MD Copies to: MD Nolberto Woodward MD Ordering Provider: Nolberto Hernandez MD Date of Service: 10/30/22 CT/CT angio head: [facility] ([id number]) CT/CT angio neck: [facility] CTA Head and Neck TECHNIQUE: Axial imaging [...] Delio Tran M.D.10/31/2022 7:42 AM Dictation Location: [place] [address] Transcribed By: [facility] 10/31/22741 Dictated By: Delio Tran DO 10/31/22 0736 Signed By: 10/31/2242 [facility] CT head stroke alert wo belgicao n 10-31-2022 CT head stroke alert wo con [facility] Main [place] [address] [place] [address] CT Scan Report Signed Patient: Viraj Doherty MR#: [id number] : 1955 Acct:[id number] Age/Sex: 67 / M ADM Date: 10/30/22 Loc: Room: [address] [place] [address] Type: ADM IN Attending Dr: Davey Harding [...] atrophy and chronic small vessel ischemic changes. [facility] preliminary report completed 10/30/2022 at 7:34 PM Impression dictated by: Delio Tran M.D.10/31/2022 7:35 AM Dictation Location: [place] [address] Transcribed By: [facility] 10/31/22734 Dictated By: Delio Tran DO 10/31/22732 Signed By: 10/31/22734 [facility] Cholesterol [Mass/volume] in Serum or PlasmaOrdered By: Dunia Bear on 10-31-2022 Cholesterol [Mass/Vol] 244 mg/dL 140-200 [facility] Comment on above: Chol less than 200 m g/dl low riskChol 201-239 mg/dl borderline riskChol 240 mg/dl and greater high risk Cholesterol in LDL Calc [Mas s/Vol]Ordered By: Dunia Bear on 10-31-2022 Cholesterol in LDL [Mass/Vol] 179 mg/dL 0-100 [facility] Comment on above: LDL ATP III CLASSIFI CATIONLDL less than 100 mg/dL OptimalLDL 100-129 mg/dL Near or above optimalLDL 130-159 mg/dL Borderline highLDL 160-189 mg/dL HighLDL greater than 189 mg/dL Very high Cholesterol in VLDL Calc [Ma ss/Vol]Ordered By: Dunia Bear on 10-31-2022 Cholesterol in VLDL [Mass/Vol] 25 mg/dL [facility] Complete Blood Count Auto Di ffon 10-31-2022 Basophils (Bld) [#/Vol] 0.1 10*3/uL Normal 0.0-0.2 [facility] Comment on above: Result Comment: PERF ORMED BY: [place] [address] PATHOLOGIST DELIVERY RN TERESA PATTERSON M.D. Performed By: #### B MP, CBC #### [address] Basophils/100 WBC (Bld) 1.0 % Normal . [facility] Comment on above: Performed By: #### B MP, CBC #### [facility] [address] [place] [address] [place] Eosinophils (Bld) [#/Vol] 0.1 10*3/uL Normal 0.0-0.45 [facility] Comment on above: Performed By: #### B MP, CBC #### [place] [address] [place] Eosinophils/100 WBC (Bld) 0.7 % Normal . [facility] Comment on above: Performed By: #### B MP, CBC #### [place] [address] [place] Erythrocyte distribution width (RBC) [Ratio] 14.2 % Normal 12.0-14.8 [facility] Comment on above: Performed By: #### B MP, CBC #### [address] Hematocrit (Bld) [Volume fraction] 46.5 % Normal 38.8-50.0 [facility] Comment on above: Performed By: #### B MP, CBC #### [address] Hemoglobin (Bld) [Mass/Vol] 16.3 g/dL Normal 13.0-17.0 [facility] Comment on above: Performed By: #### B MP, CBC #### [address] Lymphocytes (Bld) [#/Vol] 2.6 10*3/uL Normal 1.00-4.8 [facility] Comment on above: Performed By: #### B MP, CBC #### [address] Lymphocytes/100 WBC (Bld) 25.2 % Normal . [facility] Comment on above: Performed By: #### B MP, CBC #### [address] MCH (RBC) [Entitic mass] 30.7 pg Normal 27.5-35.2 [facility] Comment on above: Performed By: #### B MP, CBC #### [address] MCV (RBC) [Entitic vol] 87.6 fL Normal 83.5-101 [facility] Comment on above: Performed By: #### B MP, CBC #### [address] Mean Corpuscular HGB Conc 35.0 g/dL Normal 32.5-35.6 [facility] Comment on above: Performed By: #### B MP, CBC #### [address] Monocytes (Bld) [#/Vol] 0.9 10*3/uL High 0.0-0.8 [facility] Comment on above: Performed By: #### B MP, CBC #### [facility] [address] Monocytes/100 WBC (Bld) 9.1 % Normal . [facility] Comment on above: Performed By: #### B MP, CBC #### [facility] [address] Neutrophils (Bld) [#/Vol] 6.5 10*3/uL Normal 1.8-7.7 [facility] Comment on above: Performed By: #### B MP, CBC #### [address] Neutrophils/100 WBC (Bld) 64.0 % Normal . [facility] Comment on above: Performed By: #### B MP, CBC #### [facility] [address] [place] [address] NRBC% 0.6 /100{WBC} High 0-0.5 [facility] Comment on above: Performed By: #### B MP, CBC #### [address] Platelet mean volume (Bld) [Entitic vol] 8.7 fL Normal 6.6-10.1 [facility] Comment on above: Performed By: #### B MP, CBC #### [facility] [address] [place] [address] [place] Platelets (Bld) [#/Vol] 192 10*3/uL Normal 150-450 [facility] Comment on above: Performed By: #### B MP, CBC #### [facility] [address] [place] [address] [place] RBC (Bld) [#/Vol] 5.31 10*6/uL Normal 3.90-5.[address] [facility] Comment on above: Performed By: #### B MP, CBC #### [place] [address] [place] WBC (Bld) [#/Vol] 10.2 10*3/uL Normal 4.1-10.[address] [facility] Comment on above: Performed By: #### B MP, CBC #### [facility] [address] [place] [address] [place] Dipstick and Microscopicon 0 10-31-2022 Appearance (U) Clear Normal Clear [facility] Comment on above: Order Comment: Name Collection Type:: Clean-Voided Midstream Performed By: #### B MP, CBC #### [address] Bacteria,Urine None Seen Normal None Seen [facility] Comment on above: Order Comment: Name Collection Type:: Clean-Voided Midstream Result Comment: PERF ORMED BY: [place] [address] PATHOLOGIST DELIVERY RN TERESA PATTERSON M.D. Performed By: #### B MP, CBC #### [place] [address] [place] Bilirubin,Urine Negative Normal Negative [facility] Comment on above: Order Comment: Name Collection Type:: Clean-Voided Midstream Performed By: #### B MP, CBC #### [facility] [address] [place] [address] Color (U) Yellow Normal Yellow [facility] Comment on above: Order Comment: Name Collection Type:: Clean-Voided Midstream Performed By: #### B MP, CBC #### [facility] [address] [place] [address] [place] Glucose Ql (U) Normal Normal Normal [facility] Comment on above: Order Comment: Name Collection Type:: Clean-Voided Midstream Performed By: #### B MP, CBC #### [facility] [address] [place] [address] [place] Ketones Ql (U) Negative Normal Negative [facility] Comment on above: Order Comment: Name Collection Type:: Clean-Voided Midstream Performed By: #### B MP, CBC #### [place] [address] [place] Leukocyte esterase Test strip Ql (U) Negative Normal Negative [facility] Comment on above: Order Comment: Name Collection Type:: Clean-Voided Midstream Performed By: #### B MP, CBC #### [place] [address] [place] Nitrite,Urine Negative Normal Negative [facility] Comment on above: Order Comment: Name Collection Type:: Clean-Voided Midstream Performed By: #### B MP, CBC #### [address] Occult Blood,Urine 1+ High Negative [facility] Comment on above: Order Comment: Name Collection Type:: Clean-Voided Midstream Result Comment: PERF ORMED BY: [place] [address] PATHOLOGIST DELIVERY RN TERESA PATTERSON M.D. Performed By: #### B MP, CBC #### [address] pH (U) 6.0 [pH] Normal 5.0-9.0 [facility] Comment on above: Order Comment: Name Collection Type:: Clean-Voided Midstream Performed By: #### B MP, CBC #### [place] [address] [place] Protein,Urine Trace High Negative [facility] Comment on above: Order Comment: Name Collection Type:: Clean-Voided Midstream Performed By: #### B MP, CBC #### [facility] [address] [place] [address] [place] RBC,Urine 3-4 Normal 0-4 [facility] Comment on above: Order Comment: Name Collection Type:: Clean-Voided Midstream Performed By: #### B MP, CBC #### [facility] [address] [place] [address] [place] Specificy [place],Urine > 1.050 High 1.001-1.030 [facility] Comment on above: Order Comment: Name Collection Type:: Clean-Voided Midstream Performed By: #### B MP, CBC #### [place] [address] [place] Squamous Epithelial Cell,Urine Rare Normal 0-2 [facility] Comment on above: Order Comment: Name Collection Type:: Clean-Voided Midstream Performed By: #### B MP, CBC #### [facility] [address] Urobilinogen,Urine Normal Normal Normal [facility] Comment on above: Order Comment: Name Collection Type:: Clean-Voided Midstream Performed By: #### B MP, CBC #### [facility] [address] WBC LM.HPF (Urine sed) [#/Area] 0 /[HPF] Normal 0-4 [facility] Comment on above: Order Comment: Name Collection Type:: Clean-Voided Midstream Performed By: #### B MP, CBC #### [address] E[facility] echo transthoracicon [facility] echo transthoracic [facility] Main [place] [address] [place] [address] Echocardiogram Signed Patient: Viraj Doherty MR#: [id number] : 1955 Acct:[id number] Age/Sex: 67 / M ADM Date: 10/30/22 Loc: Room: [address] [place] [address] Type: ADM IN Attending Dr: Davey Harding MD Ordering Provider: John Garcia DO Date of Service: 10/30/2206/18/2117 [facility] echo transthoracic: Neuro Symptoms/Deficit Copies to: DO [...] By: Tatiana Miranda MD 10/31/22 1502 Normal [facility] Glucose mean value [Mass/vol ume] in Blood Estimated from glycated hemoglobinOrdered By: Dunia Bear on 10-31-2022 Average glucose Estimated from glycated hemoglobin (Bld) [Mass/Vol] 128 mg/dL [facility] Hemoglobin A1c percentageOrd ered By: Dunia Bear on 10-31-2022 HbA1c (Bld) [Mass fraction] 6.1 % 4.3-5.6 [facility] Comment on above: Increased risk for d iabetes: 5.7 - 6.4diabetes: >6.4glycemic control for adults with diabetes: <7.0 Lipid Panelon 10-31-2022 Cholesterol [Mass/Vol] 244 mg/dL High 140-200 [facility] Comment on above: Order Comment: Comme nt add Comment add Result Comment: Chol less than 200 mg/dl low risk Chol 201-239 mg/dl borderline risk Chol 240 mg/dl and greater high risk Performed By: #### F ER, [id number], FE and TIBC, MG #### [facility] [address] Cholesterol in HDL [Mass/Vol] 39 mg/dL Normal 23-92 [facility] Comment on above: Order Comment: Comme nt add Comment add Result Comment: HDL CHOL ATP-III CLASSIFICATION Cardiovascular Risk HDL > or equal to 60 mg/dL LOW HDL < 40 mg/dL HIGH Performed By: #### F ER, [id number], FE and TIBC, MG #### [facility] [address] Cholesterol.total/Chol esterol in HDL [Mass ratio] 6.3 {ratio} Normal <5.0 [facility] Comment on above: Order Comment: Comme nt add Comment add Performed By: #### F ER, [id number], FE and TIBC, MG #### [facility] [address] LDL Cholesterol,Calculated 179 mg/dL High 0-100 [facility] Comment on above: Order Comment: Comme nt add Comment add Result Comment: LDL ATP III CLASSIFICATION LDL less than 100 mg/dL Optimal LDL 100-129 mg/dL Near or above optimal LDL 130-159 mg/dL Borderline high LDL 160-189 mg/dL High LDL greater than 189 mg/dL Very high Performed By: #### F ER, [id number], FE and TIBC, MG #### [facility] [address] [place] [id number] [facility] Triglyceride w/Reflex 129 mg/dL Normal 0-149 [facility] Comment on above: Order Comment: Comme nt add Comment add Result Comment: TRIG ATP III CLASSIFICATION TRIG less than 150 mg/dL Normal TRIG 150-199 mg/dL Borderline high TRIG 200-500 mg/dL High TRIG greater than 500 mg/dL Very high Standard traceable to the Center for Disease Conrtrol and Prevention (CDC) test method. Performed By: #### F ER, [id number], FE and TIBC, MG #### [facility] [address] [place] [address] VLDL CHOLESTEROL 25 mg/dL Normal [facility] Comment on above: Order Comment: Comme nt add Comment add Performed By: #### F ER, [id number], FE and TIBC, MG #### [facility] [address] MR head/brain wo conon 10-31 MR head/brain wo con [facility] Main [place] [address] [place] [address] MRI Report Signed Patient: Viraj Doherty MR#: [id number] : 1955 Acct:[id number] Age/Sex: 67 / M ADM Date: 10/30/22 Loc: Room: [address] [place] [address] Type: ADM IN Attending Dr: Davey Harding [...] Impression dictated by: Jose Martin Jha Jr., D.ODiaz10/31/2022 12:51 PM Dictation Location: [place] [address] Transcribed By: [facility] 10/31/22 1251 Dictated By: Jose Martin Jha Jr, 10/31/22 1247 Signed By: 10/31/22 1251 Normal [facility] Serum or plasma high density lipoprotein (HDL) cholesterol measurementOrdered By: Dunia Bear on 10-31-2022 Cholesterol in HDL [Mass/Vol] 39 mg/dL 23-92 [facility] Comment on above: HDL CHOL ATP-III CLA SSIFICATION Cardiovascular RiskHDL > or equal to 60 mg/dL LOWHDL < 40 mg/dL HIGH Serum or plasma total choles terol/high density lipoprotein (HDL) cholesterol mass ratOrdered By: Dunia Bear on 10-31-2022 Cholesterol.total/Chol esterol in HDL [Mass ratio] 6.3 {ratio} <5.0 [facility] Thyroid Stimulating Hormoneo n 10-31-2022 TSH Qn 3.23 m[IU]/L Normal 0.45-5.33 [facility] Comment on above: Order Comment: Comme nt add Comment add Result Comment: PERF ORMED BY: [place] [address] PATHOLOGIST DELIVERY RN TERESA PATTERSON M.D. Performed By: #### F ER, [id number], FE and TIBC, MG #### [address] Thyrotropin [Units/volume] i n Serum or PlasmaOrdered By: Dunia Bear on 10-31-2022 TSH Qn 3.23 m[IU]/L 0.45-5.33 [facility] Triglyceride [Mass/volume] i n Serum or PlasmaOrdered By: Dunia Bear on 10-31-2022 Triglyceride [Mass/Vol] 129 mg/dL 0-149 [facility] Comment on above: TRIG ATP III CLASSIF ICATIONTRIG less than 150 mg/dL NormalTRIG 150-199 mg/dL Borderline highTRIG 200-500 mg/dL High TRIG greater than 500 mg/dL Very highStandard traceable to the Center for Disease Conrtrol and Prevention (CDC) test method. XR chest 1V portableon 10-31 XR chest 1V portable [facility] Main [place] [address] [place] [address] XRay Report Signed Patient: Viraj Doherty MR#: [id number] : 1955 Acct:[id number] Age/Sex: 67 / M ADM Date: 10/30/22 Loc: Room: [address] [place] [address] Type: ADM IN Attending Dr: Davey Harding [...] Delio Tran M.D.10/31/2022 7:33 AM Dictation Location: [place] [address] Transcribed By: [facility] 10/31/22732 Dictated By: Delio Tran DO 10/31/22 0732 Signed By: 10/31/22 0733 Normal [facility] Activated partial thrombopla stin time (aPTT) in platelet poor plasma by coagulation aOrdered By: Nolberto Hernanedz on 10-30-2022 aPTT Coag (PPP) [Time] 29.4 s 25.1-36.5 [facility] Automated epithelial cells c ount in urine sediment (number/area)Ordered By: Nolberto Hernandez on 10-30-2022 Epithelial cells Auto (Urine sed) [#/Area] Rare [HPF] 0-2 [facility] Automated erythrocytes count in urine sediment (number/area)Ordered By: Nolberto Hernandez on 10-30-2022 RBC Auto (Urine sed) [#/Area] 3-4 [HPF] 0-4 [facility] Automated leukocytes count i n urine sediment (number/area)Ordered By: Nolberto Hernandez on 10-30-2022 WBC Auto (Urine sed) [#/Area] 0-1 [HPF] 0-4 [facility] Basic Metabolic Panelon Anion gap [Moles/Vol] 11.6 mmol/L Normal 6.0-15.0 [facility] Comment on above: Performed By: #### F ER, [id number], FE and TIBC, MG #### [facility] [address] Calcium [Mass/Vol] 9.1 mg/dL Normal 8.6-10.3 [facility] Comment on above: Performed By: #### F ER, [id number], FE and TIBC, MG #### [facility] [address] Chloride [Moles/Vol] 104 mmol/L Normal 98-107 [facility] Comment on above: Performed By: #### F ER, [id number], FE and TIBC, MG #### [facility] [address] CO2 [Moles/Vol] 24.7 mmol/L Normal 21.0-31.0 [facility] Comment on above: Performed By: #### F ER, [id number], FE and TIBC, MG #### [facility] [address] Creatinine [Mass/Vol] 0.98 mg/dL Normal 0.70-1.30 [facility] Comment on above: Performed By: #### F ER, [id number], FE and TIBC, MG #### [facility] [address] [place] [address] [place] Creatinine Clr Calc Pharmacy 71.14 Normal [facility] Comment on above: Result Comment: PERF ORMED BY: [place] [address] PATHOLOGIST DELIVERY RN TERESA PATTERSON M.D. Performed By: #### F ER, [id number], FE and TIBC, MG #### [facility] [facility] [address] GFR/1.73 sq M.predicted MDRD (S/P/Bld) [Vol rate/Area] mL/min/{1.73_m2} Normal [facility] Comment on above: Performed By: #### F ER, [id number], FE and TIBC, MG #### [facility] [address] Glucose [Mass/Vol] 107 mg/dL High 70-100 [facility] Comment on above: Result Comment: [facility] Glucose Reference Range is dependent on time and content of last meal. Glucose of more than 200 mg/dL in a nonstressed, ambulatory subject supports the diagnosis of Diabetes Mellitus. ADA recommended reference range Performed By: #### F ER, [id number], FE and TIBC, MG #### [address] Potassium [Moles/Vol] 3.3 mmol/L Low 3.5-5.1 [facility] Comment on above: Performed By: #### F ER, [id number], FE and TIBC, MG #### [address] Sodium [Moles/Vol] 137 mmol/L Normal 136-145 [facility] Comment on above: Performed By: #### F ER, [id number], FE and TIBC, MG #### [address] Urea nitrogen [Mass/Vol] 12 mg/dL Normal 7-25 [facility] Comment on above: Performed By: #### F ER, [id number], FE and TIBC, MG #### [address] Basophils Auto (Bld) [#/Vol] Ordered By: Nolberto Hernandez on 10-30-2022 Basophils (Bld) [#/Vol] 0.1 10*3/uL 0.0-0.2 [facility] Basophils/100 WBC Auto (Bld) Ordered By: Nolberto Hernandez on 10-30-2022 Basophils/100 WBC (Bld) 0.8 % . [facility] Bilirubin Test strip Ql (U)O rdered By: Nolberto Hernandez on 10-30-2022 Bilirubin Ql (U) Negative Negative [facility] Calcium [Mass/volume] in Ser um or PlasmaOrdered By: Nolberto Hernandez on 10-30-2022 Calcium [Mass/Vol] 9.1 mg/dL 8.6-10.3 [facility] Carbon dioxide, total [Moles /volume] in Serum or PlasmaOrdered By: Nolberto Hernandez on 10-30-2022 CO2 [Moles/Vol] 24.7 mmol/L 21.0-31.0 [facility] Chloride [Moles/volume] in S shani or PlasmaOrdered By: Nolberto Hernandez on 10-30-2022 Chloride [Moles/Vol] 104 mmol/L 98-107 [facility] Color Auto (U)Ordered By: Karen Hernandez on 10-30-2022 Color (U) Yellow Yellow [facility] Complete Blood Count Auto Di ffon 10-30-2022 Basophils (Bld) [#/Vol] 0.1 10*3/uL Normal 0.0-0.2 [facility] Comment on above: Result Comment: PERF ORMED BY: [place] [address] PATHOLOGIST DELIVERY RN TERESA PATTERSON M.D. Performed By: #### F ER, [id number], FE and TIBC, MG #### [facility] [address] Basophils/100 WBC (Bld) 0.8 % Normal . [facility] Comment on above: Performed By: #### F ER, [id number], FE and TIBC, MG #### [facility] [address] Eosinophils (Bld) [#/Vol] 0.1 10*3/uL Normal 0.0-0.45 [facility] Comment on above: Performed By: #### F ER, [id number], FE and TIBC, MG #### [address] Eosinophils/100 WBC (Bld) 1.0 % Normal . [facility] Comment on above: Performed By: #### F ER, [id number], FE and TIBC, MG #### [address] Erythrocyte distribution width (RBC) [Ratio] 14.1 % Normal 12.0-14.8 [facility] Comment on above: Performed By: #### F ER, [id number], FE and TIBC, MG #### [address] Hematocrit (Bld) [Volume fraction] 48.3 % Normal 38.8-50.0 [facility] Comment on above: Performed By: #### F ER, [id number], FE and TIBC, MG #### [address] Hemoglobin (Bld) [Mass/Vol] 16.7 g/dL Normal 13.0-17.0 [facility] Comment on above: Performed By: #### F ER, [id number], FE and TIBC, MG #### [address] Lymphocytes (Bld) [#/Vol] 3.0 10*3/uL Normal 1.00-4.8 [facility] Comment on above: Performed By: #### F ER, [id number], FE and TIBC, MG #### [address] Lymphocytes/100 WBC (Bld) 31.1 % Normal . [facility] Comment on above: Performed By: #### F ER, [id number], FE and TIBC, MG #### [address] MCH (RBC) [Entitic mass] 30.2 pg Normal 27.5-35.2 [facility] Comment on above: Performed By: #### F ER, [id number], FE and TIBC, MG #### [address] MCV (RBC) [Entitic vol] 87.2 fL Normal 83.5-101 [facility] Comment on above: Performed By: #### F ER, [id number], FE and TIBC, MG #### [address] Mean Corpuscular HGB Conc 34.7 g/dL Normal 32.5-35.6 [facility] Comment on above: Performed By: #### F ER, [id number], FE and TIBC, MG #### [address] Monocytes (Bld) [#/Vol] 0.9 10*3/uL High 0.0-0.8 [facility] Comment on above: Performed By: #### F ER, [id number], FE and TIBC, MG #### [address] Monocytes/100 WBC (Bld) 18.82 % Normal 0.00-20.00 [facility] Comment on above: Performed By: #### F ER, [id number], FE and TIBC, MG #### [address] Monocytes/100 WBC (Bld) 9.0 % Normal . [facility] Comment on above: Performed By: #### F ER, [id number], FE and TIBC, MG #### [address] Neutrophils (Bld) [#/Vol] 5.5 10*3/uL Normal 1.8-7.7 [facility] Comment on above: Performed By: #### F ER, [id number], FE and TIBC, MG #### [address] Neutrophils/100 WBC (Bld) 58.1 % Normal . [facility] Comment on above: Performed By: #### F ER, [id number], FE and TIBC, MG #### [facility] [address] NRBC% 0.2 /100{WBC} Normal 0-0.5 [facility] Comment on above: Performed By: #### F ER, [id number], FE and TIBC, MG #### [facility] [address] Platelet mean volume (Bld) [Entitic vol] 8.8 fL Normal 6.6-10.1 [facility] Comment on above: Performed By: #### F ER, [id number], FE and TIBC, MG #### [facility] [address] Platelets (Bld) [#/Vol] 192 10*3/uL Normal 150-450 [facility] Comment on above: Performed By: #### F ER, [id number], FE and TIBC, MG #### [facility] [address] RBC (Bld) [#/Vol] 5.54 10*6/uL Normal 3.90-5.[address] [facility] Comment on above: Performed By: #### F ER, [id number], FE and TIBC, MG #### [facility] [address] WBC (Bld) [#/Vol] 9.5 10*3/uL Normal 4.1-10.5 [facility] Comment on above: Performed By: #### F ER, [id number], FE and TIBC, MG #### [facility] [address] Creatine Kinaseon 10-30-2022 CK [Catalytic activity/Vol] 133 U/L Normal 30-223 [facility] Comment on above: Performed By: #### F ER, [id number], FE and TIBC, MG #### [facility] [address] Creatine kinase [Enzymatic a ctivity/volume] in Serum or PlasmaOrdered By: Nolberto johnson 10-30-2022 CK [Catalytic activity/Vol] 133 U/L 30-223 [facility] Creatinine [Mass/volume] in Serum or PlasmaOrdered By: Nolberto Hernandez on 10-30-2022 Creatinine [Mass/Vol] 0.98 mg/dL 0.70-1.30 [facility] ECG 12 lead ECGon 10-30-2022 ECG 12 lead ECG [facility] [place] [address] Electrocardiograph Report Signed Patient: Viraj Doherty MR#: [id number] : 1955 Acct:[id number] Age/Sex: 67 / M ADM Date: 10/30/22 Loc: Room: [address] [place] [address] Type: ADM IN Attending Dr: John Garcia [...] By Nolberto Hernandez MD 10/31/22 0108 Normal [facility] Eosinophils Auto (Bld) [#/Vo l]Ordered By: Nolberto Hernandez on 10-30-2022 Eosinophils (Bld) [#/Vol] 0.1 10*3/uL 0.0-0.45 [facility] Eosinophils/100 WBC Auto (Bl d)Ordered By: Nolberto Hernandez on 10-30-2022 Eosinophils/100 WBC (Bld) 1.0 % . [facility] Erythrocyte distribution wid th Auto (RBC) [Ratio]Ordered By: Nolberto Hernandez on 10-30-2022 Erythrocyte distribution width (RBC) [Ratio] 14.1 % 12.0-14.8 [facility] Glucose Glucometer (BldC) [M ass/Vol]Ordered By: Davey Harding on 10-30-2022 Glucose [Mass/Vol] 114 mg/dL [facility] Comment on above: Random Glucose Refer ence Range is dependent on time and content of last meal. Glucose of more than 200 mg/dL in a nonstressed, ambulatory subject supports the diagnosis of Diabetes Mellitus. Glucose Poct Glucometerson 0 10-30-2022 Glucose [Mass/Vol] 114 mg/dL Normal [facility] Comment on above: Result Comment: [place] [facility] Glucose Reference Range is dependent on time and content of last meal. Glucose of more than 200 mg/dL in a nonstressed, ambulatory subject supports the diagnosis of Diabetes Mellitus. PERFORMED BY: [place] [address] PATHOLOGIST DELIVERY RN TERESA PATTERSON M.D. Performed By: #### B MP, CBC #### [address] Glucose [Mass/volume] in Ser um or PlasmaOrdered By: Nolberto Hernandez on 10-30-2022 Glucose [Mass/Vol] 107 mg/dL 70-100 [facility] Comment on above: ADA recommended refe rence rangeRandom Glucose Reference Range is dependent on time and content of last meal. Glucose of more than 200 mg/dL in a nonstressed, ambulatory subject supports the diagnosis of Diabetes Mellitus. Hematocrit Auto (Bld) [Volum e fraction]Ordered By: Nolberto Hernandez on 10-30-2022 Hematocrit (Bld) [Volume fraction] 48.3 % 38.8-50.0 [facility] Hemoglobin [Mass/volume] in BloodOrdered By: Nolberto Hernandez on 10-30-2022 Hemoglobin (Bld) [Mass/Vol] 16.7 g/dL 13.0-17.0 [facility] INR in Platelet poor plasma by Coagulation assayOrdered By: Nolberto Hernandez on 10-30-2022 INR Coag (PPP) [Relative time] 1.1 {INR} [facility] Comment on above: INR Therapeutic Rang [...] 10-30-2022 Ketones (U) [Mass/Vol] Negative Negative Fi [facility] - CoagulationOrde red By: Nolberto Hernandez on 10-30-2022 PT Coag (PPP) [Time] 12.6 s 9.0-12.9 [facility] Leukocytes [#/volume] correc khadra for nucleated erythrocytes in Blood by Automated counOrdered By: Nolberto Hernandez on 10-30-2022 WBC corrected for nucl RBC Auto (Bld) [#/Vol] 9.5 10*3/uL 4.1-10.5 [facility] Lymphocytes Auto (Bld) [#/Vo l]Ordered By: Nolberto Hernandez on 10-30-2022 Lymphocytes (Bld) [#/Vol] 3.0 10*3/uL 1.00-4.8 [facility] Lymphocytes/100 WBC Auto (Bl d)Ordered By: Nolberto Hernandez on 10-30-2022 Lymphocytes/100 WBC (Bld) 31.1 % . [facility] MCH Auto (RBC) [Entitic mass ]Ordered By: Nolberto Hernandez on 10-30-2022 MCH (RBC) [Entitic mass] 30.2 pg 27.5-35.2 [facility] MCHC Auto (RBC) [Mass/Vol]Or dered By: Nolberto Hernandez on 10-30-2022 MCHC (RBC) [Mass/Vol] 34.7 g/dL 32.5-35.6 [facility] MCV Auto (RBC) [Entitic vol] Ordered By: Nolberto Hernandez on 10-30-2022 MCV (RBC) [Entitic vol] 87.2 fL 83.5-101 [facility] Monocyte distribution width [Entitic volume] in Blood by AutomatedOrdered By: Nolberto Hernandez on 10-30-2022 Monocyte distribution width Auto (Bld) [Entitic vol] 18.82 % 0.00-20.00 [facility] Monocytes Auto (Bld) [#/Vol] Ordered By: Nolberto Hernandez on 10-30-2022 Monocytes (Bld) [#/Vol] 0.9 10*3/uL 0.0-0.8 [facility] Monocytes/100 WBC Auto (Bld) Ordered By: Nolberto Hernandez on 10-30-2022 Monocytes/100 WBC (Bld) 9.0 % . [facility] Neutrophils Auto (Bld) [#/Vo l]Ordered By: Nolberto Hernandez on 10-30-2022 Neutrophils (Bld) [#/Vol] 5.5 10*3/uL 1.8-7.7 [facility] Neutrophils/100 WBC Auto (Bl d)Ordered By: Nolberto Hernandez on 10-30-2022 Neutrophils/100 WBC (Bld) 58.1 % . [facility] Nitrite Test strip Ql (U)Ord ered By: Nolberto Hernandez on 10-30-2022 Nitrite Ql (U) Negative Negative [facility] No Panel InformationOrdered By: Nolberto Hernandez on 10-30-2022 Estimated GFR (CKD-EPI) > 60.0 mL/Min [facility] Creatinine Clearance (Chem 71.14 [facility] Nucleated erythrocytes [Pres ence] in Blood by Automated countOrdered By: Nolberto Hernandez on 10-30-2022 Nucleated RBC Auto Ql (Bld) 0.2 /100{WBC} 0-0.5 [facility] Partial Thromboplastin Timeo n 10-30-2022 aPTT Coag (Bld) [Time] 29.4 s Normal 25.1-36.5 [facility] Comment on above: Result Comment: PERF ORMED BY: [facility] [address] [place] [address] PATHOLOGIST DELIVERY RN TERESA PATTERSON M.D. Performed By: #### F ER, [id number], FE and TIBC, MG #### [address] Platelet mean volume Auto (B ld) [Entitic vol]Ordered By: Nolberto Hernandez on 10-30-2022 Platelet mean volume (Bld) [Entitic vol] 8.8 fL 6.6-10.1 [facility] Platelets Auto (Bld) [#/Vol] Ordered By: Nolberto Hernandez on 10-30-2022 Platelets (Bld) [#/Vol] 192 10*3/uL 150-450 [facility] Potassium [Moles/volume] in Serum or PlasmaOrdered By: Nolberto Hernandez on 10-30-2022 Potassium [Moles/Vol] 3.3 mmol/L 3.5-5.1 [facility] Protein Auto test strip (U) [Mass/Vol]Ordered By: Nolberto Hernandez on 10-30-2022 Protein (U) [Mass/Vol] Trace mg/dL Negative [facility] Prothrombin Time INRon 10-30 INR Coag (PPP) [Relative time] 1.1 {INR} Normal [facility] Comment on above: Result Comment: INR [...] - 4.5 Performed By: #### F ER, [id number], FE and TIBC, MG #### [facility] [address] PT Coag (PPP) [Time] 12.6 s Normal 9.0-12.9 [facility] Comment on above: Performed By: #### F ER, [id number], FE and TIBC, MG #### [facility] [address] RBC Auto (Bld) [#/Vol]Ordere d By: Nolberto Hernandez on 10-30-2022 RBC (Bld) [#/Vol] 5.54 10*6/uL 3.90-5.[address] [facility] Serum or plasma anion gap de terminationOrdered By: Nolberto Hernandez on 10-30-2022 Anion gap [Moles/Vol] 11.6 mmol/L 6.0-15.0 [facility] Sodium [Moles/volume] in Ser um or PlasmaOrdered By: Nolberto Hernandez on 10-30-2022 Sodium [Moles/Vol] 137 mmol/L 136-145 [facility] Specific gravity Auto test s trip (U) [Rel density]Ordered By: Nolberto Hernandez on 10-30-2022 Specific gravity (U) [Rel density] > 1.050 1.001-1.030 [facility] Troponin I High Sensitivityo n 10-30-2022 Troponin I High Sensitivity 12.1 pg/mL Normal 0.0-20.0 [facility] Comment on above: Result Comment: PERF ORMED BY: [facility] [address] [facility] [place] [address] PATHOLOGIST DELIVERY RN TERESA PATTERSON M.D. Performed By: #### F ER, [id number], FE and TIBC, MG #### [facility] [address] Troponin I.cardiac [Mass/vol ume] in Serum or Plasma by Detection limit <= 0.01 ng/Ordered By: Nolberto Hernandez on 10-30-2022 Troponin I.cardiac DL <= 0.01 ng/mL [Mass/Vol] 12.1 pg/mL 0.0-20.0 [facility] Urea nitrogen [Mass/volume] in Serum or PlasmaOrdered By: Nolberto Hernandez on 10-30-2022 Urea nitrogen [Mass/Vol] 12 mg/dL 7-25 [facility] Urine bacteria detection by automated methodOrdered By: Nolberto Hernandez on 10-30-2022 Bacteria Auto Ql (U) None seen None Seen [facility] Urine clarity by refractomet ry automatedOrdered By: Nolberto Hernandez on 10-30-2022 Clarity Refractometry automated (U) Clear Clear [facility] Urine glucose measurement by automated test strip (mass/volume)Ordered By: Nolberto Hernandez on 10-30-2022 Glucose Auto test strip (U) [Mass/Vol] Normal mg/dL Normal [facility] Urine hemoglobin detection b y automated test stripOrdered By: Nolberto Hernandez on 10-30-2022 Hemoglobin Auto test strip Ql (U) 1+ Negative [facility] Urine leukocyte esterase det ection by automated test stripOrdered By: Nolberto Hernandez on 10-30-2022 Leukocyte esterase Auto test strip Ql (U) Negative Negative [facility] Urobilinogen Auto test strip (U) [Mass/Vol]Ordered By: Nolberto Hernandez on 10-30-2022 Urobilinogen (U) [Mass/Vol] Normal mg/dL Normal [facility] WBC Auto (Bld) [#/Vol]Ordere d By: Nolberto Hernandez on 10-30-2022 WBC (Bld) [#/Vol] 9.5 10*3/uL 4.1-10.5 [facility] pH Auto test strip (U)Ordere d By: Nolberto Hernandez on 10-30-2022 pH (U) 6.0 [pH] 5.0-9.0 [facility] INSULINon 08-20-2018 Insulin 8.6 uIU/mL Normal 2.6-24.9 [facility] Comment on above: Performed By: #### I NSULIN ####[facility] [address] [place] [id number] Zena CBC AUTO DIFFon 08-19-2018 Basophils (Bld) [#/Vol] 0.1 103/ul Normal 0.0-0.1 [facility] Comment on above: Performed By: #### C BC ####[facility] [address] [place] [id number] Zena Basophils/100 WBC (Bld) 1.1 % Normal 0.2-2.0 [facility] Comment on above: Performed By: #### C BC ####[facility] [address] [place] [address]Zazmye Zena Eosinophils (Bld) [#/Vol] 0.1 103/ul Normal 0.0-0.7 [facility] Comment on above: Performed By: #### C BC ####[facility] [address] [place], [place] [id number] Zena Eosinophils/100 WBC (Bld) 1.8 % Normal 0.9-7.0 [facility] Comment on above: Performed By: #### C BC ####[facility] [address] [place] [address] Zena Erythrocyte distribution width (RBC) [Ratio] 13.7 % Normal 11.0-15.0 [facility] Comment on above: Performed By: #### C BC ####[facility] U[address] [place], [place] [address]Gerken Zena Hematocrit (Bld) [Volume fraction] 45.4 % Normal 42.0-54.0 [facility] Comment on above: Performed By: #### C BC ####[facility] [address] [place], [place] [id number] Zena Hemoglobin (Bld) [Mass/Vol] 15.6 g/dL Normal 14.0-18.0 [facility] Comment on above: Performed By: #### C BC ####[facility] J[address] [place] [address] Zena IG # 0.05 10e3/ul Critically high 0.00-0.03 [facility] Comment on above: Performed By: #### C BC ####[facility] [address] [place] [address] Zena IG % 0.6 % Critically high 0.0-0.5 [facility] Comment on above: Performed By: #### C BC ####[facility] [address] [place] [address] Zena Lymphocytes (Bld) [#/Vol] 2.7 103/ul Normal 1.2-3.8 [facility] Comment on above: Performed By: #### C BC ####[facility] [address] [place], [place] [id number] Zena Lymphocytes/100 WBC (Bld) 33.3 % Normal 20.5-60.0 [facility] Comment on above: Performed By: #### C BC ####[facility] [address] [place] [address] Zena MANUAL DIFF REQ NO Normal [facility] Comment on above: Performed By: #### C BC ####[facility] [address] [place], [place] [address]ravindra Freitas MCH (RBC) [Entitic mass] 30.0 pg Normal 25.9-34.0 [facility] Comment on above: Performed By: #### C BC ####[facility] [address] [place], [place] [address]Dxxlgj Karen MCHC (RBC) [Mass/Vol] 34.4 g/dL Normal 29.9-35.2 [facility] Comment on above: Performed By: #### C BC ####[facility] [address] [place] [id number] Zena MCV (RBC) [Entitic vol] 87.3 fL Normal 80.0-94.0 [facility] Comment on above: Performed By: #### C BC ####[facility] [address] [place], [place] [phone] Zena Monocytes (Bld) [#/Vol] 0.8 103/ul Normal 0.3-0.8 [facility] Comment on above: Performed By: #### C BC ####[facility] [address] [place], [place] [address]Gerken Zena Monocytes/100 WBC (Bld) 10.0 % Normal 1.7-12.0 [facility] Comment on above: Performed By: #### C BC ####[facility] [address] [place] [address]Flqgpf Zena Neutrophils (Bld) [#/Vol] 4.3 103/ul Normal 1.4-6.5 [facility] Comment on above: Performed By: #### C BC ####[facility] [address] [place] [id number] Zena Neutrophils/100 WBC (Bld) 53.2 % Normal 43.0-75.0 [facility] Comment on above: Performed By: #### C BC ####[facility] [address] [place] [address]Pjsnai Zena Platelet mean volume (Bld) [Entitic vol] 11.0 fL Normal 9.5-13.5 [facility] Comment on above: Performed By: #### C BC ####[facility] [address] [place] [id number] Zena Platelets (Bld) [#/Vol] 203 103/ul Normal 150-450 [facility] Comment on above: Performed By: #### C BC ####[facility] [address] [place] [id number] Zena RBC (Bld) [#/Vol] 5.20 106/ul Normal 4.70-6.10 [facility] Comment on above: Performed By: #### C BC ####[facility] [address] [place], [place] [address]Gerken Zena WBC (Bld) [#/Vol] 8.0 103/ul Normal 4.0-11.0 [facility] Comment on above: Performed By: #### C BC ####[facility] [address] [place] [address] Zena GLYCOHEMOGLOBIN A1Con 2018 Glucose [Mass/Vol] 120 mg/dL Normal [facility] Comment on above: Performed By: #### A 1C ####[facility] [address] [place], [place] [phone] Zena HbA1c (Bld) [Mass fraction] 5.8 % Normal <=6.0 [facility] Comment on above: Performed By: #### A 1C ####[facility] [address] [place] [address] Zena LIPID PROFILEon 08-19-2018 CHOL-HDL RATIO NORM SEE BELOW Normal [facility] Comment on above: Result Comment: 3.3 - 4.4 LOW RISK 4.4 - 7.1 AVERAGE RISK 7.1 - 11.0 MODERATE RISK >11.0 HIGH RISK Performed By: #### C MP, PSASC, LIPID, URIC ####[facility] [address] [place] [address] Zena Cholesterol [Mass/Vol] 217 mg/dL Critically high <=200 [facility] Comment on above: Performed By: #### C MP, PSASC, LIPID, URIC ####[facility] [address] [place], [place] [address]Kxacyn Zena Cholesterol in HDL [Mass/Vol] > or = 60 mg/dl - LOW CARDIOVASCULAR RISK <40 mg/dl - HIGH CARDIOVASCULAR RISK Normal [facility] Comment on above: Performed By: #### C MP, PSASC, LIPID, URIC ####[facility] Rz[address]smf[address]40 [place], [place] [address]Gjgryd Zena Cholesterol in HDL [Mass/Vol] 29 mg/dL Normal [facility] Comment on above: Performed By: #### C MP, PSASC, LIPID, URIC ####[facility] [address] [place], [place] [address]Tfrdlo Zena Cholesterol in LDL [Mass/Vol] 152.2 mg/dL Normal [facility] Comment on above: Performed By: #### C MP, PSASC, LIPID, URIC ####[facility] Imb[address]fynuo[address]04 [place], [place] [address]Nhklpd Zena Cholesterol in LDL [Mass/Vol] SEE BELOW Normal [facility] Comment on above: Result Comment: <100 mg/dl OPTIMAL 100 - 129 mg/dl NEAR OR ABOVE OPTIMAL 130 - 159 mg/dl BORDERLINE HIGH 160 - 189 mg/dl HIGH >190 mg/dl VERY HIGH Performed By: #### C MP, PSASC, LIPID, URIC ####[facility] [address] [place], [place] [address]Hnquba Zena Cholesterol.total/Chol esterol in HDL [Mass ratio] 7.5 {ratio} Normal [facility] Comment on above: Performed By: #### C MP, PSASC, LIPID, URIC ####[facility] [address] [place], [place] [address]Zebcgo Zena Triglyceride [Mass/Vol] 179 mg/dL Critically high <=150 [facility] Comment on above: Performed By: #### C MP, PSASC, LIPID, URIC ####[facility] [address] [place], [place] [address]Nrbwff Zena VLDL CALC 35.8 mg/dL Normal [facility] Comment on above: Performed By: #### C MP, PSASC, LIPID, URIC ####[facility] [address] [place], [place] [address]Hlzxry Karen OCC BLD IMMUNO SCREENon 07-28 OCCULT BLOOD Positive Normal NEGATIVE [facility] Comment on above: Performed By: #### O BSCRN ####[facility] [address] [place], [place] [address]Yujcej Zena PROF 14(COMP METB)on 019 Albumin [Mass/Vol] 4.1 g/dL Normal 3.5-5.0 [facility] Comment on above: Performed By: #### C BC #### [facility] [address] [id number] [place]elo Zena Albumin/Globulin [Mass ratio] 1.1 {ratio} Normal [facility] Comment on above: Performed By: #### C BC #### [facility] [address] [place], [place] [id number] Canelo Zena ALP [Catalytic activity/Vol] 73 U/L Normal 38-126 [facility] Comment on above: Performed By: #### C BC #### [facility] [address] [place], [place] [id number] Canelo Zena ALT [Catalytic activity/Vol] 39 U/L Normal 21-72 [facility] Comment on above: Performed By: #### C BC #### [facility] [address] [id number] Canelo Zena Anion gap [Moles/Vol] 12.3 mmol/L Normal [place] Comment on above: Performed By: #### C BC #### [facility] [address] [place], [place] [id number] Canelo Zena AST [Catalytic activity/Vol] 16 U/L Critically low 17-59 [facility] Comment on above: Performed By: #### C BC #### [facility] [address] [place], [place] [id number] Canelo Zena Bilirubin Ql (U) 1.3 mg/dL Normal 0.2-1.3 [facility] Comment on above: Performed By: #### C BC #### [facility] [address] [place] [address] Canelo Zena Calcium [Mass/Vol] 9.1 mg/dL Normal 8.4-10.2 [facility] Comment on above: Performed By: #### C BC #### [facility] [address] [place] [address] Canelo Zena Chloride [Moles/Vol] 103 mmol/L Normal 98-107 [facility] Comment on above: Performed By: #### C BC #### [facility] [address] [place] [address] Canelo Zena CO2 [Moles/Vol] 27.6 mmol/L Normal 22.0-30.0 [facility] Comment on above: Performed By: #### C BC #### [facility] [address] [place] [address] Canelo Zena Creatinine [Mass/Vol] 1.12 mg/dL Normal 0.66-1.25 [facility] Comment on above: Performed By: #### C BC #### [facility] [address] [place] [address] Canelo Zena EGFR-AF SYRIAN >60 Normal >=60 [facility] Comment on above: Performed By: #### C BC #### [facility] [address] [place] [address] Canelo Zena EGFR-NON AF SYRIAN >60 Normal >=60 [facility] Comment on above: Performed By: #### C BC #### [facility] [address] [place] [address] Canelo Zena Globulin (S) [Mass/Vol] 3.7 g/dL Normal [facility] Comment on above: Performed By: #### C BC #### [facility] [address] [place] [address] Canelo Zena Glucose [Mass/Vol] 107 mg/dL Critically high 74-106 T [facility] Comment on above: Performed By: #### C BC #### [facility] [address] [place] [address] Canelo Zena Potassium [Moles/Vol] 3.9 mmol/L Normal 3.4-5.0 [facility] Comment on above: Performed By: #### C BC #### [facility] [address] [place], [place] [address] Canelo Zena Protein [Mass/Vol] 7.8 g/dL Normal 6.1-8.2 [facility] Comment on above: Performed By: #### C BC #### [facility] [address] [place], [place] [address] Canelo Zena Sodium [Moles/Vol] 139 mmol/L Normal 137-145 [facility] Comment on above: Performed By: #### C BC #### [facility] [address] [place], [place] [address] Canelo Zena Urea nitrogen [Mass/Vol] 13.0 mg/dL Normal 9.0-20.0 [facility] Comment on above: Performed By: #### C BC #### [facility] [address] [id number] Canelo Zena Urea nitrogen/Creatinine [Mass ratio] 11.6 mg/mg Normal [facility] Comment on above: Performed By: #### C BC #### [facility] [address] [place], [place] [address] Canelo Zena URIC ACID SERUMon 08-19-2018 Urate [Mass/Vol] 6.3 mg/dL Normal 3.5-8.5 [facility] Comment on above: Performed By: #### C MP, PSASC, LIPID, URIC ####[facility] [address] [place], [place] [address]Rzklwq Zena BNPon 06-08-2018 Natriuretic peptide B (Bld) [Mass/Vol] 268.0 pg/mL Normal <=900.0 [facility] Comment on above: Performed By: #### C BC #### [facility] [address] [id number] Canelo Zena CBC AUTO DIFFon 06-08-2018 Basophils (Bld) [#/Vol] 0.1 103/ul Normal 0.0-0.1 [facility] Comment on above: Performed By: #### C BC #### [facility] [address] [id number] Canelo Zena Basophils/100 WBC (Bld) 1.1 % Normal 0.2-2.0 [facility] Comment on above: Performed By: #### C BC #### [facility] [address] [place] [address] Canelo Zena Eosinophils (Bld) [#/Vol] 0.1 103/ul Normal 0.0-0.7 [facility] Comment on above: Performed By: #### C BC #### [facility] [address] [place] [address] Canelo Zena Eosinophils/100 WBC (Bld) 0.9 % Normal 0.9-7.0 [facility] Comment on above: Performed By: #### C BC #### [facility] [address] [place] [address] Canelo Zena Erythrocyte distribution width (RBC) [Ratio] 14.6 % Normal 11.0-15.0 [facility] Comment on above: Performed By: #### C BC #### [facility] [address] [place] [address] Canelo Zena Hematocrit (Bld) [Volume fraction] 47.3 % Normal 42.0-54.0 [facility] Comment on above: Performed By: #### C BC #### [facility] [address] [place] [address] Canelo Zena Hemoglobin (Bld) [Mass/Vol] 16.1 g/dL Normal 14.0-18.0 [facility] Comment on above: Performed By: #### C BC #### [facility] [address] [place] [address] Canelo Zena IG # 0.03 10e3/ul Normal 0.00-0.03 [facility] Comment on above: Performed By: #### C BC #### [facility] [address] [place] [address] Canelo Zena IG % 0.3 % Normal 0.0-0.5 [facility] Comment on above: Performed By: #### C BC #### [facility] [address] [place], [place] [phone] Canelo Zena Lymphocytes (Bld) [#/Vol] 3.0 103/ul Normal 1.2-3.8 [facility] Comment on above: Performed By: #### C BC #### [facility] [address] [place], [place] [id number] Canelo Zena Lymphocytes/100 WBC (Bld) 31.5 % Normal 20.5-60.0 [facility] Comment on above: Performed By: #### C BC #### [facility] [address] [place], [place] [phone] Canelo Freitas MANUAL DIFF REQ NO Normal [facility] Comment on above: Performed By: #### C BC #### [facility] [address] [place], [place] [phone] Caneloravindra Finken MCH (RBC) [Entitic mass] 29.2 pg Normal 25.9-34.0 [facility] Comment on above: Performed By: #### C BC #### [facility] [address] [place] [address] Caneloravindra Freitas MCHC (RBC) [Mass/Vol] 34.0 g/dL Normal 29.9-35.2 The [facility] Comment on above: Performed By: #### C BC #### [facility] [address] [place], [place] [id number] Caneloravindra Freitas MCV (RBC) [Entitic vol] 85.8 fL Normal 80.0-94.0 [facility] Comment on above: Performed By: #### C BC #### [facility] [address] [place], [place] [id number] Canelo Zena Monocytes (Bld) [#/Vol] 1.0 103/ul Critically high 0.3-0.8 The [facility] Comment on above: Performed By: #### C BC #### [facility] [address] [place], [place] [id number] Canelo Zena Monocytes/100 WBC (Bld) 10.8 % Normal 1.7-12.0 [facility] Comment on above: Performed By: #### C BC #### [facility] [address] [place], [place] [id number] Canelo Zena Neutrophils (Bld) [#/Vol] 5.3 103/ul Normal 1.4-6.5 The [facility] Comment on above: Performed By: #### C BC #### [facility] [address] [place], [place] [id number] Canelo Freitas Neutrophils/100 WBC (Bld) 55.4 % Normal 43.0-75.0 The [facility] Comment on above: Performed By: #### C BC #### [facility] [address] [place], [place] [id number] Caneloravindra Freitas Platelet mean volume (Bld) [Entitic vol] 10.2 fL Normal 9.5-13.5 The [facility] Comment on above: Performed By: #### C BC #### [facility] [address] [place], [place] [id number] Canelo Freitas Platelets (Bld) [#/Vol] 205 103/ul Normal 150-450 [facility] Comment on above: Performed By: #### C BC #### [facility] [address] [place], [place] [id number] Canelo Freitas RBC (Bld) [#/Vol] 5.51 106/ul Normal 4.70-6.10 The [facility] Comment on above: Performed By: #### C BC #### [facility] [address] [place], [place] [id number] Canelo Freitas WBC (Bld) [#/Vol] 9.6 103/ul Normal 4.0-11.0 The [facility] Comment on above: Performed By: #### C BC #### [facility] [address] [place], [place] [id number] Caneloravindra Freitas PROF 14(COMP METB)on 019 Albumin [Mass/Vol] 4.0 g/dL Normal 3.5-5.0 [facility] Comment on above: Performed By: #### C BC #### [facility] [address] [place], [place] [id number] Caneloravindra Freitas Albumin/Globulin [Mass ratio] 1.2 {ratio} Normal [facility] Comment on above: Performed By: #### C BC #### [facility] [address] [place] [address] Canelo Zena ALP [Catalytic activity/Vol] 77 U/L Normal 38-126 The [facility] Comment on above: Performed By: #### C BC #### [facility] [address] [place], [place] [id number] Canelo Zena ALT [Catalytic activity/Vol] 29 U/L Normal 21-72 [facility] Comment on above: Performed By: #### C BC #### [facility] [address] [place], [place] [id number] Canelo Zena Anion gap [Moles/Vol] 10.8 mmol/L Normal Th e [facility] Comment on above: Performed By: #### C BC #### [facility] [address] [place] [address] Canelo Zena AST [Catalytic activity/Vol] 16 U/L Critically low 17-59 [facility] Comment on above: Performed By: #### C BC #### [facility] [address] [place], [place] [id number] Canelo Zena Bilirubin Ql (U) 1.0 mg/dL Normal 0.2-1.3 The [facility] Comment on above: Performed By: #### C BC #### [facility] [address] [place], [place] [id number] Canelo Zena Calcium [Mass/Vol] 9.2 mg/dL Normal 8.4-10.2 The [facility] Comment on above: Performed By: #### C BC #### [facility] [address] [place] [address] Canelo Zena Chloride [Moles/Vol] 101 mmol/L Normal 98-107 The [facility] Comment on above: Performed By: #### C BC #### [facility] [address] [place], [place] [id number] Canelo Zena CO2 [Moles/Vol] 29.4 mmol/L Normal 22.0-30.0 The [facility] Comment on above: Performed By: #### C BC #### [facility] [address] [place], [place] [id number] Canelo Zena Creatinine [Mass/Vol] 1.28 mg/dL Critically high 0.66-1.25 [facility] Comment on above: Performed By: #### C BC #### [facility] [address] [id number] [place] Zena EGFR-AF SYRIAN >60 Normal >=60 [facility] Comment on above: Performed By: #### C BC #### [facility] [address] [id number] [place] Zena EGFR-NON AF SYRIAN 56 mL/min/1.73m2 Critically low >=60 [facility] Comment on above: Performed By: #### C BC #### [facility] [address] [id number] Canelo Zena Globulin (S) [Mass/Vol] 3.3 g/dL Normal [facility] Comment on above: Performed By: #### C BC #### [facility] [address] [place] [address] Canelo Zena Glucose [Mass/Vol] 120 mg/dL Critically high 74-106 T [facility] Comment on above: Performed By: #### C BC #### [facility] [address] [place], [place] [id number] Canelo Zena Potassium [Moles/Vol] 4.2 mmol/L Normal 3.4-5.0 [facility] Comment on above: Performed By: #### C BC #### [facility] [address] [place] [address] Canelo Zena Protein [Mass/Vol] 7.3 g/dL Normal 6.1-8.2 The [facility] Comment on above: Performed By: #### C BC #### [facility] [address] [place], [place] [id number] Canelo Zena Sodium [Moles/Vol] 137 mmol/L Normal 137-145 [facility] Comment on above: Performed By: #### C BC #### [facility] [address] [place], [place] [id number] Canelo Zena Urea nitrogen [Mass/Vol] 17.0 mg/dL Normal 9.0-20.0 [facility] Comment on above: Performed By: #### C BC #### [facility] [address] [place] [address] Canelo Freitas Urea nitrogen/Creatinine [Mass ratio] 13.3 mg/mg Normal [facility] Comment on above: Performed By: #### C BC #### [facility] [address] [place] [address] Canelo Freitas T3, TOTAL (TRIIODOTHYRONINE) on 06-08-2018 T3, TOTAL 109 ng/dL Normal 71-180 The [facility] Comment on above: Performed By: #### C BC #### [facility] [address] [place] [address] Canelo Freitas BNPon 06-07-2018 Natriuretic peptide B (Bld) [Mass/Vol] 370.0 pg/mL Normal <=900.0 [facility] Comment on above: Performed By: #### B MP, BNP, LIVER, LIPA, CMADM #### [facility] [address] [place] [address] Canelo Freitas CARDIAC JEFF 3-6-9on 019 CK [Catalytic activity/Vol] 182 U/L Critically high 55-170 [facility] Comment on above: Performed By: #### C BC #### [facility] [address] [place] [address] Canelo Freitas CK.MB [Mass/Vol] 3.00 ng/mL Critically high <=2.37 [facility] Comment on above: Result Comment: test repeated critical value verified Performed By: #### C BC #### [facility] [address] [place] [address] Canelo Freitas INR Coag (Bld) [Relative time] SEE BELOW Normal The [facility] Comment on above: Result Comment: <0.0 34 ng/ml NEGATIVE 0.034-0.119 INDETERMINATE 0.120 AMI CUT OFF Performed By: #### C BC #### [facility] [address] [place] [address] Canelo Freitas TROP 0.022 ng/mL Normal <=0.034 The [facility] Comment on above: Performed By: #### C BC #### [facility] [address] [place], [place] [address] Canelo Zena CK [Catalytic activity/Vol] 179 U/L Critically high 55-170 The [facility] Comment on above: Performed By: #### C BC #### [facility] [address] [place], [place] [address] Canelo Zena CK.MB [Mass/Vol] 3.21 ng/mL Critically high <=2.37 The [facility] Comment on above: Result Comment: Test repeated. Critical value verified. Performed By: #### C BC #### [facility] [address] [place], [place] [address] Canelo Zena INR Coag (Bld) [Relative time] SEE BELOW Normal The [facility] Comment on above: Result Comment: <0.0 34 ng/ml NEGATIVE 0.034-0.119 INDETERMINATE 0.120 AMI CUT OFF Performed By: #### C BC #### [facility] [address] [place] [address] Canelo Zena TROP <0.017 Normal <=0.034 The [facility] Comment on above: Performed By: #### C BC #### [facility] [address] [place], [place] [address] Canelo Zena CK [Catalytic activity/Vol] 185 U/L Critically high 55-170 The [facility] Comment on above: Performed By: #### C MREP ####[facility] [address] [place] [address] [id number] Zena CK.MB [Mass/Vol] 3.31 ng/mL Critically high <=2.37 The [facility] Comment on above: Result Comment: Test repeated. Critical value verified. Performed By: #### C MREP ####[facility] [address] [place] [id number] Zena INR Coag (Bld) [Relative time] SEE BELOW Normal The [facility] Comment on above: Result Comment: <0.0 34 ng/ml NEGATIVE 0.034-0.119 INDETERMINATE 0.120 AMI CUT OFF Performed By: #### C MREP ####[facility] [address] [place] [address] [id number] Zena TROP <0.017 Normal <=0.034 The [facility] Comment on above: Performed By: #### C MREP ####[facility] T[address] Zena CARDIAC JEFF ADMITon 019 CK [Catalytic activity/Vol] 202 U/L Critically high 55-170 The [facility] Comment on above: Result Comment: Test repeated. Critical value verified. Performed By: #### B MP, BNP, LIVER, LIPA, CMADM ####[facility] [address] [place] [address] Zena CK.MB [Mass/Vol] 3.20 ng/mL Critically high <=2.37 The [facility] Comment on above: Result Comment: Test repeated. Critical value verified. Performed By: #### B MP, BNP, LIVER, LIPA, CMADM ####[facility] [address] [place] [address] Zena INR Coag (Bld) [Relative time] SEE BELOW Normal The [facility] Comment on above: Result Comment: <0.0 34 ng/ml NEGATIVE 0.034-0.119 INDETERMINATE 0.120 AMI CUT OFF Performed By: #### B MP, BNP, LIVER, LIPA, CMADM ####[facility] [address] [place] [address] Zena LISA 116.0 ng/mL Normal <=121.0 The [facility] Comment on above: Performed By: #### B MP, BNP, LIVER, LIPA, CMADM ####[facility] [address] [place] [address] Zena TROP <0.017 Normal <=0.034 The [facility] Comment on above: Performed By: #### B MP, BNP, LIVER, LIPA, CMADM ####[facility] [address] [place] [address] Zena CBC AUTO DIFFon 06-07-2018 Basophils (Bld) [#/Vol] 0.1 103/ul Normal 0.0-0.1 The [facility] Comment on above: Performed By: #### C BC #### [facility] [address] [place], [place] [id number] Canelo Zena Basophils/100 WBC (Bld) 1.1 % Normal 0.2-2.0 The [facility] Comment on above: Performed By: #### C BC #### [facility] [address] [place], [place] [id number] Canelo Zena Eosinophils (Bld) [#/Vol] 0.1 103/ul Normal 0.0-0.7 The [facility] Comment on above: Performed By: #### C BC #### [facility] [address] [place], [place] [id number] Canelo Zena Eosinophils/100 WBC (Bld) 1.3 % Normal 0.9-7.0 [facility] Comment on above: Performed By: #### C BC #### [facility] [address] [place] [address] Canelo Zena Erythrocyte distribution width (RBC) [Ratio] 14.5 % Normal 11.0-15.0 [facility] Comment on above: Performed By: #### C BC #### [facility] [address] [place] [address] Canelo Zena Hematocrit (Bld) [Volume fraction] 48.7 % Normal 42.0-54.0 [facility] Comment on above: Performed By: #### C BC #### [facility] [address] [place], [place] [id number] Canelo Zena Hemoglobin (Bld) [Mass/Vol] 17.0 g/dL Normal 14.0-18.0 The [facility] Comment on above: Performed By: #### C BC #### [facility] [address] [place] [address] Canelo Zena IG # 0.03 10e3/ul Normal 0.00-0.03 The [facility] Comment on above: Performed By: #### C BC #### [facility] [address] [place], [place] [id number] Canelo Zena IG % 0.4 % Normal 0.0-0.5 The [facility] Comment on above: Performed By: #### C BC #### [facility] [address] [place], [place] [address] Canelo Zena Lymphocytes (Bld) [#/Vol] 2.5 103/ul Normal 1.2-3.8 The [facility] Comment on above: Performed By: #### C BC #### [facility] [address] [place] [address] Canelo Zena Lymphocytes/100 WBC (Bld) 30.8 % Normal 20.5-60.0 [facility] Comment on above: Performed By: #### C BC #### [facility] [address] [place] [address] Canelo Zena MANUAL DIFF REQ NO Normal [facility] Comment on above: Performed By: #### C BC #### [facility] [address] [place], [place] [id number] Canelo Zena MCH (RBC) [Entitic mass] 29.2 pg Normal 25.9-34.0 The [facility] Comment on above: Performed By: #### C BC #### [facility] [address] [place], [place] [id number] Canelo Zena MCHC (RBC) [Mass/Vol] 34.9 g/dL Normal 29.9-35.2 The [facility] Comment on above: Performed By: #### C BC #### [facility] [address] [place], [place] [id number] Canelo Zena MCV (RBC) [Entitic vol] 83.5 fL Normal 80.0-94.0 The [facility] Comment on above: Performed By: #### C BC #### [facility] [address] [place], [place] [id number] Canelo Zena Monocytes (Bld) [#/Vol] 0.8 103/ul Normal 0.3-0.8 The [facility] Comment on above: Performed By: #### C BC #### [facility] [address] [place], [place] [id number] Canelo Zena Monocytes/100 WBC (Bld) 9.8 % Normal 1.7-12.0 The [facility] Comment on above: Performed By: #### C BC #### [facility] [address] [place], [place] [address] Canelo Zena Neutrophils (Bld) [#/Vol] 4.5 103/ul Normal 1.4-6.5 The [facility] Comment on above: Performed By: #### C BC #### [facility] [address] [place] [id number] [place] Neutrophils/100 WBC (Bld) 56.6 % Normal 43.0-75.0 [facility] Comment on above: Performed By: #### C BC #### [facility] [address] [place] [address] [place] Platelet mean volume (Bld) [Entitic vol] 10.0 fL Normal 9.5-13.5 [facility] Comment on above: Performed By: #### C BC #### [facility] [address] [place] [address] [place] Platelets (Bld) [#/Vol] 202 103/ul Normal 150-450 [facility] Comment on above: Performed By: #### C BC #### [facility] [address] [place] [address] [place] RBC (Bld) [#/Vol] 5.83 106/ul Normal 4.70-6.10 [facility] Comment on above: Performed By: #### C BC #### [facility] [address] [place] [address] [place] WBC (Bld) [#/Vol] 8.0 103/ul Normal 4.0-11.0 [facility] Comment on above: Performed By: #### C BC #### [facility] [address] [place] [address] HEAD WO CONon 06-07-2018 CT HEAD WO CON [address] [place] [id number] Patient: VIRAJ DOHERTY Exam Date: 06/07/2018 : 1955 Gender:M Ordering : DR DELIO StephensODiaz Admission #: [id number] Family : DR MARILYN PATRICK . Order #: [id number] CLICK HERE TO VIEW EXAM RADIOLOGY REPORT [...] M.D. on 06/07/2018 at 11:25 Normal [facility] DRUG SCREEN RAPID (URINE)on 06-07-2018 AMP Negative Normal NEGATIVE [facility] Comment on above: Performed By: #### D RUGRPD ####[facility] Edovqzbjhe6485 [address] BAR Negative Normal NEGATIVE [facility] Comment on above: Performed By: #### D RUGRPD ####[facility] Msvcdoyqmd5324 [address] [place] BUP Negative Normal NEGATIVE [facility] Comment on above: Performed By: #### D RUGRPD ####[facility] Dchwmoniau5344 [address] [place] BZO Negative Normal NEGATIVE [facility] Comment on above: Performed By: #### D RUGRPD ####[facility] Pzcdspenmf4143 [address] [place] IAM Negative Normal NEGATIVE [facility] Comment on above: Performed By: #### D RUGRPD ####[facility] Fbywvbahzj4104 [address] CUT-OFFS SEE BELOW Normal [facility] Comment on above: Result Comment: AMP (Amphetamine): [...] 300 ng/mL Performed By: #### D RUGRPD ####[facility] [address] [place] [address] DRUG CUT HEADER DRUG CLASS TEST SYST EM CUT-OFF CONCENTRATIONS ARE FOLLOWS: Normal [facility] Comment on above: Performed By: #### D RUGRPD ####[facility] [address] [place] [address] mAMP Negative Normal NEGATIVE [facility] Comment on above: Performed By: #### D RUGRPD ####[facility] Duyhldduoy5814 [address] MTD Negative Normal NEGATIVE [facility] Comment on above: Performed By: #### D RUGRPD ####[facility] Qwchhttpwa6755 [address] OPI Negative Normal NEGATIVE [facility] Comment on above: Performed By: #### D RUGRPD ####[facility] [address] [place] [address] OXY Negative Normal NEGATIVE [facility] Comment on above: Performed By: #### D RUGRPD ####[facility] [address] [place] [address] PCP Negative Normal NEGATIVE [facility] Comment on above: Performed By: #### D RUGRPD ####[facility] Chtmujasyb8408 [address] [place] PPX Negative Normal NEGATIVE [facility] Comment on above: Performed By: #### D RUGRPD ####[facility] [address] [place] [id number] Zena TCA Negative Normal NEGATIVE [facility] Comment on above: Performed By: #### D RUGRPD ####[facility] Mdbxrtlpud3856 [address] [place] THC Positive Normal NEGATIVE [facility] Comment on above: Performed By: #### D RUGRPD ####[facility] Tflrdtnyci9623 [address] [place]ena ECHOCARDIO M/2D COMPLETEon 0 06-07-2018 ECHOCARDIO M/2D COMPLETE [address] [place] [address] Patient: VIRAJ DOHERTY Exam Date: 06/07/2018 : 1955 Gender:M Ordering : DR MARILYN PATRICK . Admission #: [id number] Family : Order #: [id number] CLICK HERE TO VIEW EXAM ECHOCARDIOGRAM REPORT [...] Area(A4C): 14.40 cm2 Left Atrium Systolic Volume(A2C): 71813 mm3 Left Atrium Systolic Volume(A4C): 00856 mm3 Mitral Valve MV E to A [...] M.D. on 06/07/2018 at 16:47 Normal [facility] ER URINE PROFILEon 9 Bilirubin [Mass/Vol] Negative Normal NEGATIVE [facility] Comment on above: Performed By: #### E RUR ####[facility] [address] [place] [address]Gerken Zena BLOOD Negative Normal NEGATIVE [facility] Comment on above: Performed By: #### E RUR ####[facility] Mmaupfbwop5123 [address] [place] Clarity (U) CLEAR Normal [facility] Comment on above: Performed By: #### E RUR ####[facility] Exlwgbbbkj4198 [address] [place] Color (U) LT. YELLOW Normal YELLOW [facility] Comment on above: Performed By: #### E RUR ####[facility] Jxcxgicpif9766 [address] [place]ena ERUAHD A micrscopic examina tion will be performed if indicated. Normal [facility] Comment on above: Performed By: #### E RUR ####[facility] Rxdpfmavqp0335 [address] [place] Glucose [Mass/Vol] Negative Normal NEGATIVE [facility] Comment on above: Performed By: #### E RUR ####[facility] [address] [place] [address] Zena Ketones Ql (U) Negative Normal NEGATIVE [facility] Comment on above: Performed By: #### E RUR ####[facility] Cf[address]ubiv[address] [place] [address] Zena Nitrite Ql (U) Negative Normal NEGATIVE [facility] Comment on above: Performed By: #### E RUR ####[facility] [address] [place] [address] Zena pH (Bld) 6.5 Normal 5-9 [facility] Comment on above: Performed By: #### E RUR ####[facility] Xwsdogywvw5939 [address] [place] Protein (U) [Mass/Vol] Negative Normal Th [place] Comment on above: Performed By: #### E RUR ####[facility] Wqssitnwry2929 [address] [place] SPEC GRAVITY 1.010 Normal 1.005-<=1.0 25 [facility] Comment on above: Performed By: #### E RUR ####[facility] [address] [place] [address] Zena UR MICRO IND NOT INDICATED Normal [facility] Comment on above: Performed By: #### E RUR ####[facility] [address] [place] [address]Canelo Freitas Urobilinogen Qn (U) 0.2 EU/dl Normal [facility] Comment on above: Performed By: #### E RUR ####[facility] Bxpkpkdfnq4647 [place] [address]Gerken Zena WBC (Bld) [#/Vol] Negative Normal NEGATIVE [facility] Comment on above: Performed By: #### E RUR ####[facility] V[address]we[address] [place] [address]Gerken Zena GLYCOHEMOGLOBIN A1Con 2018 Glucose [Mass/Vol] 120 mg/dL Normal [facility] Comment on above: Performed By: #### C BC #### [facility] [address] [place] [address] Canelo Freitas HbA1c (Bld) [Mass fraction] 5.8 % Normal <=6.0 [facility] Comment on above: Performed By: #### C BC #### [facility] [address] [place] [address] [place] Freitas LIPASEon 06-07-2018 Lipase [Catalytic activity/Vol] 167.0 U/L Normal 23.0-300.0 [facility] Comment on above: Performed By: #### B MP, BNP, LIVER, LIPA, CMADM #### [facility] [address] [place] [address] [place] Freitas LIPID PROFILEon 06-07-2018 CHOL-HDL RATIO NORM SEE BELOW Normal [facility] Comment on above: Result Comment: 3.3 - 4.4 LOW RISK 4.4 - 7.1 AVERAGE RISK 7.1 - 11.0 MODERATE RISK >11.0 HIGH RISK Performed By: #### C BC #### [facility] [address] [place] [address] [place] Freitas Cholesterol [Mass/Vol] 236 mg/dL Critically high <=200 [facility] Comment on above: Performed By: #### C BC #### [facility] [address] [place], [place] [address] [place] Cholesterol in HDL [Mass/Vol] 31 mg/dL Normal [facility] Comment on above: Performed By: #### C BC #### [facility] [address] [place], [place] [address] [place] Cholesterol in HDL [Mass/Vol] > or = 60 mg/dl - LOW CARDIOVASCULAR RISK <40 mg/dl - HIGH CARDIOVASCULAR RISK Normal [facility] Comment on above: Performed By: #### C BC #### [facility] [address] [place], [place] [address] [place] Cholesterol in LDL [Mass/Vol] 161.2 mg/dL Normal [facility] Comment on above: Performed By: #### C BC #### [facility] [address] [place] [address] [place] Cholesterol in LDL [Mass/Vol] SEE BELOW Normal [facility] Comment on above: Result Comment: <100 mg/dl OPTIMAL 100 - 129 mg/dl NEAR OR ABOVE OPTIMAL 130 - 159 mg/dl BORDERLINE HIGH 160 - 189 mg/dl HIGH >190 mg/dl VERY HIGH Performed By: #### C BC #### [facility] [address] [place] [address] [place] Cholesterol.total/Chol esterol in HDL [Mass ratio] 7.6 {ratio} Normal [facility] Comment on above: Performed By: #### C BC #### [facility] [address] [place], [place] [address] [place] Triglyceride [Mass/Vol] 219 mg/dL Critically high <=150 [facility] Comment on above: Performed By: #### C BC #### [facility] [address] [place], [place] [address] [place] VLDL CALC 43.8 mg/dL Normal [facility] Comment on above: Performed By: #### C BC #### [facility] [address] [place], [place] [address] [place]ena LIVER PROFILEon 06-07-2018 Albumin [Mass/Vol] 4.4 g/dL Normal 3.5-5.0 [facility] Comment on above: Performed By: #### B MP, BNP, LIVER, LIPA, CMADM #### [facility] [address] [place] [address] [place] Albumin/Globulin [Mass ratio] 1.2 {ratio} Normal [facility] Comment on above: Performed By: #### B MP, BNP, LIVER, LIPA, CMADM #### [facility] [address] [place] [address] [place] ALP [Catalytic activity/Vol] 83 U/L Normal 38-126 [facility] Comment on above: Performed By: #### B MP, BNP, LIVER, LIPA, CMADM #### [facility] [address] [place] [address] [place] ALT [Catalytic activity/Vol] 34 U/L Normal 21-72 [facility] Comment on above: Performed By: #### B MP, BNP, LIVER, LIPA, CMADM #### [facility] [address] [place] [address] [place] AST [Catalytic activity/Vol] 23 U/L Normal 17-59 [facility] Comment on above: Performed By: #### B MP, BNP, LIVER, LIPA, CMADM #### [facility] [address] [place] [address] [place] BILI, CONJUGATED 0.2 mg/dL Normal 0.0-0.3 [facility] Comment on above: Performed By: #### B MP, BNP, LIVER, LIPA, CMADM #### [facility] [address] [place] [address] [place] Bilirubin Ql (U) 0.9 mg/dL Normal 0.2-1.3 [facility] Comment on above: Performed By: #### B MP, BNP, LIVER, LIPA, CMADM #### [facility] [address] [place] [address] [place] Globulin (S) [Mass/Vol] 3.6 g/dL Normal [facility] Comment on above: Performed By: #### B MP, BNP, LIVER, LIPA, CMADM #### [facility] [address] [place], [place] [address] [place] Protein [Mass/Vol] 8.0 g/dL Normal 6.1-8.2 [facility] Comment on above: Performed By: #### B MP, BNP, LIVER, LIPA, CMADM #### [facility] [address] [place], [place] [address] [place] Freitas MAGNESIUMon 06-07-2018 Magnesium [Mass/Vol] 2.1 mg/dL Normal 1.6-2.3 [facility] Comment on above: Performed By: #### T SH, MG, T4 ####[facility] [address]so[address]azbfol[address] [place], [place] [address]OavzzrCanelo Freitas MRI BRAIN WO CONon 9 MRI BRAIN WO CON [address] [place] [address] Patient: VIRAJ DOHERTY Exam Date: 06/07/2018 : 1955 Gender:M Ordering : DR MARILYN PATRICK . Admission #: [id number] Family : Order #: [id number] CLICK HERE TO VIEW EXAM RADIOLOGY REPORT [...] Mcfarlane M.D. on 06/07/2018 at 15:55 Normal [facility] POINT OF CARE GLUCOSEon 05-27 Glucose [Mass/Vol] 116 mg/dL Critically high 74-106 T [facility] Comment on above: Performed By: #### P OCGLUC #### [facility] [address] [place] [address] [place] Zena PROF CHEM 8 (BAS METB)on Anion gap [Moles/Vol] 15.0 mmol/L Normal [facility] Comment on above: Performed By: #### B MP, BNP, LIVER, LIPA, CMADM #### [facility] [address] [place] [address] [place] Calcium [Mass/Vol] 9.1 mg/dL Normal 8.4-10.2 [facility] Comment on above: Performed By: #### B MP, BNP, LIVER, LIPA, CMADM #### [facility] [address] [place] [address] [place] Chloride [Moles/Vol] 100 mmol/L Normal 98-107 [facility] Comment on above: Performed By: #### B MP, BNP, LIVER, LIPA, CMADM #### [facility] [address] [place] [address] [place] Z[place] CO2 [Moles/Vol] 24.9 mmol/L Normal 22.0-30.0 [facility] Comment on above: Performed By: #### B MP, BNP, LIVER, LIPA, CMADM #### [facility] [address] [place] [address] [place] Creatinine [Mass/Vol] 1.07 mg/dL Normal 0.66-1.25 [facility] Comment on above: Performed By: #### B MP, BNP, LIVER, LIPA, CMADM #### [facility] [address] [place] [address] [place] EGFR-AF SYRIAN >60 Normal >=60 [facility] Comment on above: Performed By: #### B MP, BNP, LIVER, LIPA, CMADM #### [facility] [address] [place] [address] [place] EGFR-NON AF SYRIAN >60 Normal >=60 [facility] Comment on above: Performed By: #### B MP, BNP, LIVER, LIPA, CMADM #### [facility] [address] [place] [address] [place] Glucose [Mass/Vol] 119 mg/dL Critically high 74-106 T [facility] Comment on above: Performed By: #### B MP, BNP, LIVER, LIPA, CMADM #### [facility] [address] [place] [address] [place] Potassium [Moles/Vol] 3.9 mmol/L Normal 3.4-5.0 [facility] Comment on above: Performed By: #### B MP, BNP, LIVER, LIPA, CMADM #### [facility] [address] [place] [address] [place] Sodium [Moles/Vol] 136 mmol/L Critically low 137-145 Th [place] Comment on above: Performed By: #### B MP, BNP, LIVER, LIPA, CMADM #### [facility] [address] [place] [address] [place] Urea nitrogen [Mass/Vol] 11.0 mg/dL Normal 9.0-20.0 [facility] Comment on above: Performed By: #### B MP, BNP, LIVER, LIPA, CMADM #### [facility] [address] [place] [address] [place] Urea nitrogen/Creatinine [Mass ratio] 10.3 mg/mg Normal [facility] Comment on above: Performed By: #### B MP, BNP, LIVER, LIPA, CMADM #### [facility] [address] [place] [address] [place] Zena PROTIMEon 06-07-2018 INR Coag (PPP) [Relative time] 1.05 {INR} Normal [facility] Comment on above: Performed By: #### P T, PTT #### [facility] [address] [place] [address] [place] Zena PT Coag (PPP) [Time] 10.8 s Normal 9.0-11.6 [facility] Comment on above: Performed By: #### P T, PTT #### [facility] [address] [place] [address] [place] Zena PT Coag (PPP) [Time] PLEASE NOTE: NORMAL RANGE CHANGE 11-13-2013 DUE TO REAGENT LOT CHANGE Normal [facility] Comment on above: Performed By: #### P T, PTT #### [facility] [address] [place] [address] Caneloravindra Freitas PT Coag (PPP) [Time] SEE BELOW Normal [facility] Comment on above: Result Comment: PACO RED INR: 2.0 - 3.0 CONDITIONS NOT LISTED BELOW 2.5 - 3.5 FOR PROSTHETIC HEART VALVE REPLACEMENT 2.5 - 3.5 RECURRENT THROMBOSIS Performed By: #### P T, PTT #### [facility] [address] [place] [id number] Caneloravindra Freitas PTTon 06-07-2018 aPTT Coag (Bld) [Time] 25.7 s Normal 22.3-36.2 Th e [facility] Comment on above: Performed By: #### P T, PTT #### [facility] [address] [place] [address] [place] Zena aPTT Coag (Bld) [Time] PLEASE NOTE: NORM AL RANGE CHANGE 01-20-2015 DUE TO REAGENT LOT CHANGE Normal [facility] Comment on above: Performed By: #### P T, PTT #### [facility] [address] [place] [id number] Canelo Zena T4on 06-07-2018 T4 [Mass/Vol] 6.20 ug/dL Normal 5.53-11.00 [facility] Comment on above: Performed By: #### T SH, MG, T4 ####[facility] [address] [place] [address]Gerken Zena TSHon 06-07-2018 TSH Qn SEE BELOW Normal [facility] Comment on above: Result Comment: <0.3 4 UIU/ml HYPERTHYROID 0.34-5.60 UIU/ml EUTHYROID >5.60 UIU/ml HYPOTHYROID Performed By: #### T SH, MG, T4 ####[facility] Fnbvuf[address]tev[address] [place] TSH Qn 2.494 uIU/mL Normal 0.470-4.680 [facility] Comment on above: Performed By: #### T SH, MG, T4 ####[facility] Lffilqhwbm[address] [place] US CAROTID ART BILon 019 Bilirubin [Mass/Vol] [address] [place] [address] Patient: VIRAJ DOHERTY Exam Date: 06/07/2018 : 1955 Gender:M Ordering : DR MARILYN PATRICK . Admission #: [id number] Family : ICU Order #: [id number] CLICK HERE TO VIEW EXAM RADIOLOGY REPORT [...] Von 06-07-2018 XR CHEST 2 V [address] [place] [address] Patient: VIRAJ DOHERTY Exam Date: 06/07/2018 : 1955 Gender:M Ordering : DR DELIO BOYER D.O. Admission #: [id number] Family : DR MARILYN PATRICK . Order #: [id number] CLICK HERE TO VIEW EXAM RADIOLOGY REPORT [...] Date Time Vital Sign Value Performing Clinician Facility 12-12-2023 12:47-0400 Body height 180.3 cm Ivon Yoo MAINTENANCE INSTRUCTOR Work Phone: [facility] 12-12-2023 12:47-0400 Body mass index (BMI) [Ratio] 23.99 kg/m2 Ivon Yoo MAINTENANCE INSTRUCTOR Work Phone: [facility] 12-12-2023 12:47-0400 Body weight 78.02 kg Ivon Yoo MAINTENANCE INSTRUCTOR Work Phone: [facility] 12-12-2023 12:47-0400 Diastolic blood pressure 88 mm[Hg] Ivon Yoo MAINTENANCE INSTRUCTOR Work Phone: [facility] 12-12-2023 12:47-0400 Heart rate 85 /min Ivon Yoo MAINTENANCE INSTRUCTOR Work Phone: [facility] 12-12-2023 12:47-0400 SaO2% (BldA) [Mass fraction] 99 % Ivon Yoo MAINTENANCE INSTRUCTOR Work Phone: [facility] 12-12-2023 12:47-0400 Systolic blood pressure 152 mm[Hg] Ivon Graciaoll MAINTENANCE INSTRUCTOR Work Phone: [facility] 12-20-2022 09:08-0400 Diastolic blood pressure 89 mm[Hg] MD Nolberto Hernandez Work Phone: [facility] 12-20-2022 09:08-0400 Systolic blood pressure 150 mm[Hg] MD Nolberto Hernandez Work Phone: [facility] 12-20-2022 04:48-0400 Body temperature 98 [degF] MD Nolberto Hernandez Work Phone: [facility] 12-20-2022 04:48-0400 Heart rate 83 /min MD Nolberto Hernandez Work Phone: [facility] 12-20-2022 04:48-0400 Respiratory rate 18 /min MD Nolberto Hernandez Work Phone: [facility] 12-20-2022 04:48-0400 SaO2% (BldA) [Mass fraction] 97 % MD Nolberto Hernandez Work Phone: [facility] 12-19-2022 11:15-0400 Body height 180.34 cm MD Nolberto Hernandez Work Phone: [facility] 12-17-2022 05:25-0400 Body weight 69.7 kg MD Nolberto Hernandez Work Phone: [facility] 12-12-2022 08:00-0400 Body temperature 97.9 [degF] MD Nolberto Hernandez Work Phone: [facility] 12-12-2022 08:00-0400 Diastolic blood pressure 79 mm[Hg] MD Nolberto Hernandez Work Phone: [facility] 12-12-2022 08:00-0400 Heart rate 91 /min MD Nolberto Hernandez Work Phone: [facility] 12-12-2022 08:00-0400 Respiratory rate 20 /min MD Nolberto Hernandez Work Phone: [facility] 12-12-2022 08:00-0400 SaO2% (BldA) [Mass fraction] 94 % MD Nolberto Hernandez Work Phone: [facility] 12-12-2022 08:00-0400 Systolic blood pressure 104 mm[Hg] MD Nolberto Hernandez Work Phone: [facility] 12-12-2022 05:52-0400 Body weight 70.4 kg MD Nolberto Hernandez Work Phone: [facility] 12-09-2022 23:55-0400 Body height 180.34 cm MD Nolberto Hernandez Work Phone: [facility] 11-15-2022 13:01-0400 Diastolic blood pressure 73 mm[Hg] MD Nolberto Hernandez Work Phone: [facility] 11-15-2022 13:01-0400 Respiratory rate 16 /min MD Nolberto Hernandez Work Phone: [facility] 11-15-2022 13:01-0400 SaO2% (BldA) [Mass fraction] 96 % MD Nolberto Hernandez Work Phone: [facility] 11-15-2022 13:01-0400 Systolic blood pressure 129 mm[Hg] MD Nolberto Hernandez Work Phone: [facility] 11-15-2022 05:00-0400 Body temperature 97.7 [degF] MD Nolberto Hernandez Work Phone: [facility] 11-15-2022 05:00-0400 Heart rate 67 /min MD Nolberto Hernandez Work Phone: [facility] 11-12-2022 05:24-0400 Body weight 69.8 kg MD Nolberto Hernandez Work Phone: [facility] 11-10-2022 14:53-0400 Body height 180.34 cm MD Nolberto Hernandez Work Phone: [facility] 11-02-2022 12:29-0400 Body temperature 98.4 [degF] MD Nolberto Hernandez Work Phone: [facility] 11-02-2022 12:29-0400 Diastolic blood pressure 72 mm[Hg] MD Nolberto Hernandez Work Phone: [facility] 11-02-2022 12:29-0400 Heart rate 83 /min MD Nolberto Hernandez Work Phone: [facility] 11-02-2022 12:29-0400 Respiratory rate 16 /min MD Nolberto Hernandez Work Phone: [facility] 11-02-2022 12:29-0400 SaO2% (BldA) [Mass fraction] 97 % MD Nolberto Hernandez Work Phone: [facility] 11-02-2022 12:29-0400 Systolic blood pressure 142 mm[Hg] MD Nolberto Hernandez Work Phone: [facility] 11-02-2022 06:00-0400 Body weight 71 kg MD Nolberto Hernandez Work Phone: [facility] 10-31-2022 14:37-0400 Body height 180.34 cm MD Nolberto Hernandez Work Phone: [facility] 10-30-2022 22:31-0400 Diastolic blood pressure 110 mm[Hg] MD Nolberto Hernandez Work Phone: [facility] 10-30-2022 22:31-0400 Heart rate 65 /min MD Nolberto Hernandez Work Phone: [facility] 10-30-2022 22:31-0400 Respiratory rate 18 /min MD Nolberto Hernandez Work Phone: [facility] 10-30-2022 22:31-0400 SaO2% (BldA) [Mass fraction] 96 % MD Nolberto Hernandez Work Phone: [facility] 10-30-2022 22:31-0400 Systolic blood pressure 200 mm[Hg] MD Nolberto Hernandez Work Phone: [facility] 10-30-2022 19: Body height 175.26 cm MD Nolberto Hernandez Work Phone: [facility] 10-30-2022 19: Body weight 74.84 kg MD Nolberto Hernandez Work Phone: [facility] 10-30-2022 19: Body temperature 98.6 [degF] MD Nolberto Hernandez Work Phone: [facility] Encounters Encounter Date Encounter Type Care Provider Facility Start: 12-12-2023 End: 12-12-2023 Bamboo flowsheet Ivon Yoo MAINTENANCE INSTRUCTOR Work Phone: [employer] [facility] Start: 12-12-2023 End: 12-12-2023 Bamboo flowsheet Ivon Yoo MAINTENANCE INSTRUCTOR Work Phone: [employer] [facility] Start: 12-12-2023 End: 12-12-2023 Office outpatient visit 25 minutes Ivon Yoo MAINTENANCE INSTRUCTOR Work Phone: [employer] [facility] Comment on above: 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 (CMS/HCC) (Primary Dx); Encounter for medication monitoring; Intracranial atherosclerosis; Elevated hemoglobin A1c; Seizure (CMS/HCC) Start: 12-12-2023 End: 12-12-2023 ambulatory IVON YOO Not Available Start: 09-12-2023 End: 09-12-2023 Patient encounter procedure SHANNON JORDAN [facility] Start: 09-12-2023 End: 09-12-2023 ambulatory SHANNON JORDAN Facility:[facility] Start: 07-19-2023 End: 07-19-2023 ambulatory IVON YOO Not Available Start: 06-05-2023 ambulatory Kevin DYSON Facility : [place] Start: 04-27-2023 ambulatory SHANNON JORDAN Facility: [place] Start: 12-12-2022 End: 12-20-2022 Evaluation and management of inpatient Jose Martin Sen Facility:[facility] Start: 12-12-2022 End: 12-20-2022 Evaluation and management of inpatient MD Nolberto Hernandez Work Phone: [facility] Work Phone: Start: 12-10-2022 End: 12-12-2022 Evaluation and management of inpatient Davey Mehdi Facility:[facility] Start: 12-09-2022 End: 12-12-2022 Evaluation and management of inpatient MD Nolberto Hernandez Work Phone: [facility] Work Phone: Start: 12-07-2022 End: 12-07-2022 ambulatory Jose Martin Sen Facility:[facility] Start: 12-07-2022 End: 12-07-2022 ambulatory MD Nolberto Hernandez Work Phone: [facility] Work Phone: Start: 12-07-2022 End: 12-07-2022 Discharged Recurring MD Nolberto Hernandez Work Phone: [facility] [address] Start: 12-07-2022 Registered Recurring MD Nolberto alanis Work Phone: [facility] [address] Start: 11-02-2022 End: 11-15-2022 Evaluation and management of inpatient Jose Martin Sen Facility:[facility] Start: 11-02-2022 End: 11-15-2022 Evaluation and management of inpatient MD Nolberto Hernandez Work Phone: [facility] Work Phone: Start: 10-30-2022 End: 11-02-2022 Evaluation and management of inpatient Davey Mehdi Facility:[facility] Start: 10-30-2022 End: 11-02-2022 Evaluation and management of inpatient MD Nolberto Hernandez Work Phone: [facility] Work Phone: Start: 09-06-2022 End: 09-06-2022 Patient encounter procedure SHANNON JORDAN [facility] Start: 09-07-2021 End: 09-07-2021 Patient encounter procedure SHANNON JORDAN [facility] Start: 08-19-2018 End: 08-20-2018 Patient encounter procedure MARILYN HOY Facility: Start: 06-10-2018 End: 06-11-2018 Patient encounter procedure DEFAULT PHYSICIAN Facility:[facility] Start: 06-07-2018 End: 06-08-2018 Evaluation and management of inpatient MARILYN HOY Facility: Procedures Date Procedure Procedure Detail Performing Clinician [...] Work Phone: Start: 08-19-2018 [object Object] MARILYN HOY Comment on above: Performed By: #### C BC #### [facility] [address] [place] [address] Canelo Zena Start: 04-09-2006 Colonoscopy SHANNON JOYA History of ankle surgery CHARLES JORDAN History of operative procedure on lumbar spinal structure SHANNON JORDAN Plan of Treatment Date Care Activity Detail Author Start: 09-17-2024 End: 09-17-2024 Patient encounter procedure 09/17/2024 10:00 AM EDT Office Visit [facility] [address] [place] [phone] Shannon Jordan, JARED [address] [place] [address] [facility] Start: 02-06-2024 End: 02-06-2024 Patient encounter procedure 02/06/2024 9:40 AM EST Office Visit [facility] [place] [address] [place] [address] Ivon Yoo, MAINTENANCE INSTRUCTOR [address] [place] [phone] [facility] [place] [facility] Start: 12-17-2023 End: 12-17-2023 Professional / ancillary services management 12/17/2023 2:40 PM EDT Ancillary Procedure [facility] [place] [address] [place] [phone] [facility] Start: 12-12-2023 End: 12-11-2024 Hemoglobin A1c/Hemoglobin.total in Blood Hemoglobin A1c Lab Routine Elevated hemoglobin A1c Expected: 12/12/2023 (Approximate), Expires: 12/11/2024 [facility] Comment on above: Expected: 12/12/2023 (Approximate), Expires: 12/11/2024 Start: 12-12-2023 End: 12-11-2024 Hepatic function 2000 panel - Serum or Plasma Hepatic function panel Lab Routine Encounter for medication monitoring Expected: 12/12/2023 (Approximate), Expires: 12/11/2024 [facility] Comment on above: Expected: 12/12/2023 (Approximate), Expires: 12/11/2024 Start: 12-12-2023 End: 12-11-2024 Lipid 1996 panel - Serum or Plasma Lipid panel Lab Routine Encounter for medication monitoring Expected: 12/12/2023 (Approximate), Expires: 12/11/2024 [facility] Work Phone: Comment on above: Expected: 12/12/2023 (Approximate), Expires: 12/11/2024 Start: 12-12-2023 End: 12-11-2024 US.doppler Carotid arteries - bilateral Vascular US carotid artery duplex bilateral Imaging Routine 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 (CMS/HCC) Expected: 12/12/2023 (Approximate), Expires: 12/11/2024 [facility] Comment on above: Expected: 12/12/2023 (Approximate), Expires: 12/11/2024 Start: 12-12-2023 End: 12-12-2023 Patient encounter procedure 12/12/2023 1:00 PM EDT Office [facility] [address] [place] [phone] Ivon Yoo, VICTOR MANUEL [address] [place] [phone] 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 (CMS/HCC) (Primary Dx); Intracranial atherosclerosis; Elevated hemoglobin A1c; Seizure (CMS/HCC) [facility] Comment on above: 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 (CMS/HCC) (Primary Dx); Intracranial atherosclerosis; Elevated hemoglobin A1c; Seizure (CMS/HCC) Start: 12-19-2022 [facility] Start: 12-18-2022 Arrangement of care procedure [facility] Start: 12-13-2022 Administration of prophylactic treatment [facility] Start: 12-12-2022 Hospital admission [facility] Start: 12-12-2022 Referral to clinical cns [facility] Start: 12-12-2022 [facility] Start: 12-12-2022 [facility] Start: 12-11-2022 Referral to rehabilitation physician [facility] Start: 12-10-2022 Hospital admission [facility] Start: 12-10-2022 Referral to neurologist [facility] Start: 11-15-2022 [facility] Start: 11-09-2022 Blood chemistry [facility] Start: 11-09-2022 [facility] Start: 11-08-2022 Blood chemistry [facility] Start: 11-08-2022 [facility] Start: 11-07-2022 Blood chemistry [facility] Start: 11-07-2022 [facility] Start: 11-06-2022 Administration of prophylactic treatment [facility] Start: 11-06-2022 Blood chemistry [facility] Start: 11-06-2022 [facility] Start: 11-05-2022 Blood chemistry [facility] Start: 11-05-2022 [facility] Start: 11-04-2022 Blood chemistry [facility] Start: 11-04-2022 [facility] Start: 11-03-2022 Blood chemistry [facility] Start: 11-03-2022 [facility] Start: 11-02-2022 Hospital admission [facility] Start: 11-02-2022 Referral to clinical cns [facility] Start: 11-02-2022 Blood chemistry [facility] Start: 11-02-2022 End: 11-02-2022 [facility] Start: 11-01-2022 Blood chemistry [facility] Start: 11-01-2022 [facility] Start: 10-31-2022 Referral to rehabilitation physician [facility] Start: 10-31-2022 Blood chemistry [facility] Start: 10-31-2022 [facility] of head MR [facility] Start: 10-31-2022 End: 10-31-2022 [facility] Start: 10-30-2022 [facility] Start: 10-30-2022 Hospital admission [facility] Start: 10-30-2022 Physical therapy procedure [facility] Start: 10-30-2022 Referral to neurologist [facility] Start: 10-30-2022 Referral to occupati onal therapist [facility] Start: 10-30-2022 CT angiography of head [facility] Start: 10-30-2022 CT angiography of ne ck vessels [facility] Start: 10-30-2022 CT Head WO contrast [facility] Start: 10-30-2022 CT of head without contrast CT head stroke alert wo con [facility] Start: 10-30-2022 Plain chest X-ray XR chest 1V [place] [facility] Start: 10-30-2022 XR Chest [facility] Basophils [#/volume] in Blood by Automated count [facility] Basophils/100 leukoc ytes in Blood by Automated count [facility] Bilirubin measuremen t, urine [facility] Color of Urine [facility] Detection of hemoglobin [facility] Eosinophils [#/volum e] in Blood [facility] Eosinophils/100 leukocytes in Blood by Automated count [facility] Erythrocyte distribu tion width [Ratio] by Automated count [facility] Erythrocytes [#/volu me] in Blood [facility] Glucose [Mass/volume ] in Urine by Test strip [facility] Hematocrit [Volume Fraction] of Blood [facility] Hemoglobin [Mass/vol ume] in Blood [facility] Leukocytes [#/volume ] corrected for nucleated erythrocytes in Blood by Automated coun [facility] Leukocytes [#/volume ] in Blood [facility] Lymphocytes [#/volum e] in Blood by Automated count [facility] Lymphocytes/100 leukocytes in Blood by Automated count [facility] MCH [Entitic mass] b y Automated count [facility] MCHC [Mass/volume] b y Automated count [facility] MCV [Entitic volume] by Automated count [facility] Measurement of keton es in urine using dipstick [facility] Monocytes [#/volume] in Blood by Automated count [facility] Monocytes/100 leukoc ytes in Blood by Automated count [facility] Neutrophils [#/volum e] in Blood by Automated count [facility] Neutrophils/100 leukocytes in Blood by Automated count [facility] Nucleated erythrocyt es [Presence] in Blood by Automated count [facility] Patient Education [facility] Work Phone: Patient referral [facility] Work Phone: Platelet mean volume [Entitic volume] in Blood by Automated count [facility] Platelets [#/volume] in Blood [facility] Protein measurement, urine [facility] Urinalysis, specific gravity measurement [facility] Urine dipstick for nitrite [facility] Urine dipstick for specific gravity [facility] Urine pH test [facility] Urobilinogen concentration, test strip measurement [facility] Payers Date Payer Category Payer Unknown [id number] 2022 Self-pay 1994 Medicare MEDICARE [id number] 1959 Medicare [id number] 1953 Unknown [id number] 1953 Unknown [id number] 1953 Unknown [id number] 1953 Unknown [id number] 1953 Unknown [id number] 1953 Unknown [id number] 1953 Unknown [id number] [id number] 9 1953 Unknown [id number] [id number] 9 1953 Unknown [id number] 9 Medicaid Medicaid [id number] Unknown Unknown [id number] Unknown [id number] Unknown [id number] Unknown [id number] Unknown [id number] Social History Date Type Detail Facility Tobacco smoking status No Smokin g Status Entered [facility] Start: 09-12-2023 End: 12-12-[address] Male [facility] Tobacco smoking status No Smokin g Status Entered [facility] Start: 10-30-2022 Tobacco smoking stat [facility] Current some day smoker [facility] Start: 1955 Sex Assigned At Male [facility] Start: 10-31-2022 End: 07-19-2023 Tobacco smoking status WVIS Never smoked tobacco (finding) [facility] Start: 12-12-2022 Tobacco smoking stat [facility] Ex-smoker (finding) [facility] Start: 07-19-2023 Tobacco use and exposure Smokeless tobacco non-user [facility] Start: 09-12-2023 End: 12-12-2023 Alcoholic beverage intake Lifetime non-drinker (finding) [facility] Start: 09-12-2023 End: 12-12-2023 History of Social function [facility] Start: 07-19-2023 Alcohol Comment 1 to 2 cups of caffeine per day [facility] Start: 1955 Sex assigned at Not on file [facility] Goals Date Patient Goal Desired Activity /State Functional Status Date Assessment Result Facility 12-20-2022 Functional status Patient is Pro gressing Toward Baseline [facility] Work Phone: 12-12-2022 Functional status Patient Not at Baseline [facility] Work Phone: 11-15-2022 Functional status Patient Not at Baseline [facility] Work Phone: 11-02-2022 Functional status Patient Not at Baseline [facility] Work Phone: Mental Status Date Assessment Result Facility 12-20-2022 Cognitive function Cognitive Sta tus Patient is Progressing Toward Baseline [facility] Work Phone: 12-12-2022 Cognitive function Cognitive Sta tus Patient Not at Baseline [facility] Work Phone: 11-15-2022 Cognitive function Cognitive Sta tus Patient at Baseline [facility] Work Phone: 11-02-2022 Cognitive function Cognitive Sta tus Patient at Baseline [facility] Work Phone: Clinical Notes 09-07-2021 to 12-12-2023 Ivon Yoo NP - 12/12/2023 1:00 PM EDTPatient Instructions Note Date & Type Note Facility 12-12-2023 History of Present illness Narrative Images from the original note were not included. Ivon Yoo NP Chief Complaint Patient presents with Follow-up Subjective Viraj Doherty is a 68 y.o. male. HPI The patient presents today for follow up. He is accompanied by his . He had labs completed for review. The patient denies any new signs or symptoms of stroke since the prior neurology appointment on 07/19/2023. In particular, he denies double vision, vision loss, worsening memory, cognitive changes, facial droop, numbness, paresthesias, or new onset weakness. He has not fallen since the prior neurology appointment and denies any seizure-like activity or loss of consciousness. He does not drink alcohol. He is not a current or former smoker. He takes aspirin, Plavix, and atorvastatin daily as prescribed. The patient states he feels better than he did at the prior appointment. He continues to have some coordination difficulty and difficulty with ambulation, but this has not worsened since the previous appointment. He utilizes his cane when ambulating. He walks on the treadmill daily at a slow speed. He continues to read daily and out loud. He denies difficulty swallowing. states the patient's diet has improved recently, and he has been eating healthier. They deny any further concerns. Review of Systems Constitutional: Negative for appetite change, chills, fatigue, fever and unexpected weight change. HENT: Negative for trouble swallowing and voice change. Eyes: Negative for visual change, double vision, or loss of vision Respiratory: Negative for cough, shortness of breath and wheezing. Cardiovascular: Negative for chest pain and palpitations. Gastrointestinal: Negative for abdominal pain, blood in stool, nausea and vomiting. Musculoskeletal: Positive for gait problem (mild incoordination). Negative for arthralgias and myalgias. Neurological: Positive for speech difficulty (expressive aphasia). Negative for dizziness, tremors, seizures, syncope, facial asymmetry, weakness, light-headedness, numbness and headaches. Psychiatric/Behavioral: Negative for confusion, hallucinations and suicidal ideas. The patient is not nervous/anxious. Medication List aspirin 81 MG EC tablet atorvastatin 20 MG tablet clopidogrel 75 MG tablet; Commonly known as: Plavix Humira 40 MG/0.4ML Pen-injector Kit pen-injector; Generic drug: adalimumab levETIRAcetam 500 MG tablet; Commonly known as: Keppra; TAKE ONE TABLET BY MOUTH EVERY 12 HOURS valsartan 160 MG tablet; Commonly known as: Diovan Past Medical History: Diagnosis Date Cerebral vascular accident (CMS/HCC) History of TB skin testing Negative TB gold : 08/2018 , 08/2020 Hypertension (CMS/HCC) Psoriasis (CMS/HCC) TIA (transient ischemic attack) Past Surgical History: Procedure Laterality Date ANKLE SURGERY Right fracture repair SPINAL FUSION L4 Family History Problem Relation Name Age of Onset Heart disease Other Melanoma Neg Hx Social History Tobacco Use Smoking status: Never Smokeless tobacco: Never Substance Use Topics Alcohol use: Never Comment: 1 to 2 cups of caffeine per day Allergies: Patient has no known allergies. Vitals: 12/12/23 1247 BP: 152/88 Pulse: 85 SpO2: 99% Body mass index is 23.99 kg/m . weight: 172 lb Neurologic exam: Mental status and general appearance: Awake and alert with unlabored respirations. Oriented to person, place. and time. Recent and remote memory are intact. Speech is primarily clear and fluent. Subtle dysarthria at times. No expressive or receptive aphasia noted throughout the exam today. Attention and concentration are normal. Fund of knowledge is appropriate for level of education. Cranial nerves: CN II: Visual acuity is normal. Visual diaz full to confrontation. CN III, IV, : Pupils are equal, round, and reactive to light. Extraocular movements intact. No ptosis present. CN V: Facial sensation is normal. CN VII: Full and symmetric facial movement. CN VIII: Hearing is normal to finger rub bilaterally. CN IX and X: Palate elevates symmetrically. CN XI: Shoulder shrug is normal bilaterally. CN XII: Tongue is midline without atrophy or fasciculation. Motor: RUE strength deltoid , biceps , triceps , wrist extensors , wrist flexor , and beauty school instructor strength 5/5. Very subtly decreased strength when compared to the left upper extremity. LUE strength deltoid , biceps , triceps , wrist extensors , wrist flexor , and beauty school instructor strength 5/5. RLE strength iliopsoas, quadriceps, tibialis anterior, plantar flexion, and dorsiflexion strength 5/5. LLE strength iliopsoas, quadriceps, tibialis anterior, plantar flexion, and dorsiflexion strength 5/5. Tone and bulk are normal. Sensory: Sensation is intact to light touch throughout all four extremities. Sensation is intact to temperature in all extremities. Reflexes: Deep tendon reflexes are 1+ and symmetric throughout. Coordination: [id number] testing subtle dysmetria on the right. Normal on the left. Rapid alternating movements are normal. Gait: Somewhat unsteady. Utilizing cane and receiving standby assistance from his . Review and summary of old records: Lipid panel on 08/02/23: Total cholesterol 183. Triglycerides 145. HDL 38. LDL 116. The patient presented to [facility] on 12/09/22 with a witnessed generalized tonic-clonic seizure. He had no prior history of seizure at the time. Routine EEG on 12/10/22: Normal MRI of the brain w/o contrast at [facility] on 12/10/22: No areas of acute ischemia. Ischemia is noted in the left MCA territory, greatest along the left MCA/PEDRO LUIS watershed territory involving the left frontal and parietal lobes and, to a lesser extent, the lateral aspect of the left temporal lobe. Interval resolution of diffusion restriction in the lateral aspect of the left thalamus consistent with continued interval evolution of a chronic infarct. Multiple remote lacunar infarcts are noted in the deep santos nuclei and periventricular white matter bilaterally. Additional chronic age-related neurodegenerative changes are noted. focal T2 and FLAIR hyperintense signal is noted consistent with chronic microvascular ischemic change. There is mild diffuse age-related cortical atrophy. Labs on 12/10/22: Ferritin 33. Vitamin B12 228. Folate 10.4. Iron 38 (low), TIBC 329, iron saturation 11.6% (low). MRI brain without contrast at [facility] on 10/30/22: Evidence of late subacute infarct involving the left thalamus region. This appears to be superimposed on cortical atrophy and moderately severe chronic microvascular ischemic changes. CT head without contrast at [facility] on 10/30/22: No evidence of acute intracranial normality. Bilateral remote caudal/basal ganglia lacunar infarcts. Cerebral volume loss, intracranial atherosclerotic disease and mild sequela of chronic small vessel ischemic disease. Head CTA on 10/30/22: 1 cm segment of critical stenosis involving the left MCA M1 segment distally with compromised flow along the left frontal lobe. Teres. Occlusion of the distal M2 segment left frontal lobe. No intracranial aneurysm or AVM. Mild calcified plaquing of the carotid bifurcations without significant stenosis. Patent vertebral arteries. Labs at [facility] in 10/2022: LDL 179. 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 He was evaluated at [facility] in early October 2022 for dysarthria, right-sided ataxia, and mild right hemiparesis. Systolic blood pressure was over 200 at the time of admission, and the patient was taking no home medications. MRI of the brain on 10/30/22 revealed acute ischemia in the left lateral thalamus, and LDL was 179. The patient was started on aspirin, Plavix, atorvastatin, and antihypertensive medication at that time. He has residual right-sided ataxia and intermittent dysarthria. The patient presented to [facility] again in mid November 2022 due to a generalized tonic-clonic seizure. Routine EEG on 12/10/22 was normal. MRI of the brain on 12/10/22 revealed a new area of ischemia in the left MCA territory, greatest along the left MCA/PEDRO LUIS watershed territory; likely the cause of the patient's seizure. There was suspicion for hypotensive episodes and known MCA stenosis contributing to the patient's watershed infarction. He denies any new signs or symptoms of stroke since the prior neurology appointment. PLAN: - Continue at-home therapy exercises - I offered referral to physical therapy, occupational therapy, and/or speech therapy today for further evaluation and treatment. Patient politely declined - Carotid ultrasound - Continue aspirin 81 mg by mouth once a day and Plavix 75 mg by mouth once a day - Continue statin (management per primary care provider; goal LDL < 70) - I advised the patient to follow up closely with his primary care provider for strict control of vascular risk factors including blood pressure and hyperlipidemia. He verbalizes understanding - I reviewed the importance of regular physical activity, avoidance of tobacco use, limited alcohol intake, and healthy diet with the patient - Referral to cardiology has been recommended previously but politely declined by the patient Intracranial atherosclerosis CTA head/neck on 10/31/22 revealed a 1 cm segment critical stenosis of the left MCA M1 segment distally and occlusion of the distal M2 segment. PLAN: - See above - Aggressive medical therapy with antiplatelets and statin as detailed Encounter for medication monitoring Atorvastatin use. LDL on 08/02/23 was elevated at 116. PLAN: - Labs (lipid panel and hepatic function panel) for medication monitoring - Dr. Patrick is currently prescribing the patient's atorvastatin, and I will ask that he consider a dose increase to help reduce LDL to goal of < 70 Elevated hemoglobin A1c Hemoglobin A1c during hospitalization in 11/2022 was elevated at 6.1%. PLAN: - Lab (recheck hemoglobin A1c) - I advised the patient to follow up closely with his primary care provider for ongoing monitoring and management of blood glucose to help prevent diabetes mellitus and adverse health effects Seizure (CMS/HCC) No further seizures reported since hospitalization in 11/2022. PLAN: - Continue Keppra 500 mg by mouth twice a day for seizure prevention Diagnosis and treatment options discussed in detail. All questions answered. The patient and his verbalize understanding and are agreeable to the plan. Discussion in layman's terms. Follow up in the office within 1 month; sooner if needed for new or worsening symptoms. Ivon Yoo NP [facility] Advanced Neurology documented in this encounter [facility] 12-12-2023 Instructions Ivon Yoo NP - 12/12/2023 1:00 PM EDT - Carotid ultrasound - Check labs documented in this encounter [facility] 09-12-2023 Evaluation + Plan note Diagnostic Tests PendingQuantiferon-TB Plus (Client Incubated) 09/12/23 [facility] 12-21-2022 Hospital Discharge instructions Additional Instructions -Diet: low fat, low cholesterol. -Ambulate as tolerated. No driving unless cleared by physician, may ride in car. You will have Outpatient Therapy at [facility] ([phone] ext. [phone]). The order for this has been sent [...] to inform them prior to your appointment. [facility] Work Phone: 12-18-2022 Progress note Note Date/Time December 18, 2022 10:09am [facility] [address] [place] [address] Physiatry(Rehab) Progress Note Signed Patient: Viraj Doherty MR#: [id number] : 1955 Acct:[id number] Age/Sex: 67 / M Adm Date: 3 Loc: Room: 3H9910-6 Type: ADM IN Attending Dr: Jose Martin [...] mg 12/12/22 18:42 Bisacodyl 10 Mg Supp.Rect OK 12/12/23 18:41 DAILY PRN Constipation Clopidogrel Bisulfate [...] 18:42 Docusate Enema 283 Mg/5 Ml Enema OK 12/12/23 18:41 DAILY PRN Constipation Enoxaparin Sodium [...] equipment to enhance the patient's a functional orthodoxy Ensure adequate nutrition and hydration Sleep: No concerns. Pain: No issues. Discharge planning: Home with in a week or two. Plan: I completed a substantive portion of this encounter, the medical decision makingportion of this note in its entirety, including Allied health note review, nursing note review, qm consultant note review, discussion with nursing and case management, and more than 50% of my time was spent on counseling and coordination of care, time spent 40 minutes Patient was personally seen by me, Dr. Sen, on the day of encounter, reviewed the history and the relevant portions of the chart, including current orders, allied health and qm consultant notes, labs/imaging and performed garner elements of exam and I formulated the plan of care and facilitated the medical decision making. Documented By: Jose Martin Sen MD 12/18/22 1008 Signed By: <Electronically signed by Jose Martin Sen MD> 12/18/22 4274 [facility] Work Phone: 1(468) 321-985910-21-2023 Progress note Author Jose Martin Sen [facility] December 16, 2022 9:30am Note Date/Time December 16, 2022 9 :30am [facility] [address] [place] [address] Physiatry(Rehab) Progress Note Signed Patient: Viraj Doherty MR#: [id number] : 1955 Acct:[id number] Age/Sex: 67 / M Adm Date: 3 Loc: 5T Room: 2C9723-4 Type: ADM IN Attending Dr: Jose Martin [...] 12/13/22 09:00 12/16/22 08:21 Aspirin 81 Mg Tablet. PO 12/13/23 08:59 81 mg DAILY [facility] Administration Atorvastatin Calcium 80 mg 12/12/22 21:00 12/15/22 21:21 Atorvastatin 80 Mg Tablet PO 12/12/23 20:59 80 mg QPM [facility] Administration Bisacodyl 10 mg 12/12/22 18:42 Bisacodyl 10 Mg Supp.Rect OK 12/12/23 18:41 DAILY PRN Constipation Clopidogrel Bisulfate [...] 18:42 Docusate Enema 283 Mg/5 Ml Enema OK 12/12/23 18:41 DAILY PRN Constipation Enoxaparin Sodium [...] equipment to enhance the patient's a functional orthodoxy Ensure adequate nutrition and hydration Sleep: No concerns. Pain: No issues. Discharge planning: Home with in a week or two. Plan: I completed a substantive portion of this encounter, the medical decision makingportion of this note in its entirety, including Allied health note review, nursing note review, qm consultant note review, discussion with nursing and case management, and more than 50% of my time was spent on counseling and coordination of care, time spent 40 minutes Patient was personally seen by me, Dr. Sen, on the day of encounter, reviewed the history and the relevant portions of the chart, including current orders, allied health and qm consultant notes, labs/imaging and performed garner elements of exam and I formulated the plan of care and facilitated the medical decision making. Documented By: Jose Martin Sen MD 12/16/22927 Signed By: <Electronically signed by Jose Martin Sen MD> 12/16/22929 [facility] Work Phone: 1(642) 923-233210-21-2023 Progress note Author Jose Martin Sen [facility] December 16, 2022 7:21am Note Date/Time December 14, 2022 1 2:52pm [facility] [address] [place] [address] Physiatry(Rehab) Progress Note Signed Patient: Viraj Doherty MR#: [id number] : 1955 Acct:[id number] Age/Sex: 67 / M Adm Date: 3 Loc: Room: [address] [place] [address] Type: ADM IN Attending Dr: Jose Martin [...] 12/13/22 09:00 12/14/22 09:04 Aspirin 81 Mg Tablet. PO 12/13/23 08:59 81 mg DAILY LEVON Administration Atorvastatin Calcium 80 mg 12/12/22 21:00 12/13/22 21:40 Atorvastatin 80 Mg Tablet PO 12/12/23 20:59 80 mg QPM [facility] Administration Bisacodyl 10 mg 12/12/22 18:42 Bisacodyl 10 Mg Supp.Rect OK 12/12/23 18:41 DAILY PRN Constipation Clopidogrel Bisulfate 75 mg 12/13/22 09:00 12/14/22 09:04 Clopidogrel Bisulfate 75 Mg Tablet PO 12/13/23 08:59 75 mg DAILY [facility] Administration Cyanocobalamin 1,000 mcg 12/13/22 09:00 12/14/22 09:04 Cyanocobalamin 1,000 Mcg Tablet PO 12/13/23 08:59 1,000 mcg QAM [facility] Administration Docusate Sodium 100 mg 12/12/22 18:42 Docusate 100 Mg Capsule PO 12/12/23 18:41 BID PRN Constipation Docusate Sodium 283 mg 12/12/22 18:42 Docusate Enema 283 Mg/5 Ml Enema OK 12/12/23 18:41 DAILY PRN Constipation Enoxaparin Sodium 40 mg 12/13/22 10:00 12/14/22 09:04 Enoxaparin 40 Mg/0.4 Ml Syringe SUBCUT 12/13/23 09:59 40 mg DAILY@1000 [facility] Administration Lactulose 30 gm 12/12/22 18:42 Lactulose 20 Gm/30 Ml Udc PO 12/12/23 18:41 DAILY PRN Constipation Levetiracetam 500 mg 12/12/22 21:00 12/14/22 09:04 Levetiracetam 500 Mg Tablet PO 12/12/23 20:59 500 mg BID [facility] Administration Polysaccharide Iron Complex 150 mg 12/12/22 15:30 12/13/22 07:50 Iron Polysaccharide Complex 150 Mg Capsule PO 12/12/23 15:29 Not Given Q48H [facility] Sennosides 2 tab 12/13/22 12:00 Sennosides 8.6 [...] equipment to enhance the patient's a functional orthodoxy Ensure adequate nutrition and hydration Sleep: No concerns. Pain: No issues. Discharge planning: Home with in 7 to 10 days. I spent greater than 15 minutes for services, including lybk-cx-lsji encounter with the patient, discussion of the case, plan of care, and exam; and hqmycdc-fo-obmr activities, such as reviewing pertinent qm consultant documentation, recent therapy notes, laboratory and radiology studies, and discussion of case with care team including physician, nursing, case management manager, and therapists. More than 50 % [...] Allied health note review, nursing note review, qm consultant note review, discussion with nursing and case management, and more than 50% of my time was spent on counseling and coordination of care, time spent 40 minutes Patient was personally seen by me, Dr. Sen, on the day of encounter, reviewed the history and the relevant portions of the chart, including current orders, allied health and qm consultant notes, labs/imaging and performed garner elements of exam and I formulated the plan of care and facilitated the medical decision making. Encourage p.o. intake. Blood pressure less than 100 or 110 consistently, would consider fluid bolus. Documented By: Janiceclaritza Altamirano APRN 12/14/22 1 246 Signed By: <Electronically signed by JASMIN Altamirano> 12/14/22 1258 <Electronically signed by Jose Martin Sen MD> 12/16/22 0741 [facility] Work Phone: 1(109) 309-988810-19-2023 Consult note Author Quynh Galvan [facility] December 14, 2022 7:01am Note Date/Time December 13, 2022 3 :52pm [facility] [address] [place] [address] Hospitalist Consult Note Signed Patient: Viraj Doherty MR#: [id number] : 1955 Acct:[id number] Age/Sex: 67 / M Adm Date: 3 Loc: Room: [address] [place] [address] Type: ADM IN Attending Dr: Jose Martin [...] negative unless noted in the HPI below [facility] Medical History (Updated 12/13/22 @ 11:18 by [...] mg 12/12/22 18:42 Bisacodyl 10 Mg Supp.Rect OK 12/12/23 18:41 DAILY PRN Constipation Clopidogrel Bisulfate [...] 18:42 Docusate Enema 283 Mg/5 Ml Enema OK 12/12/23 18:41 DAILY PRN Constipation Enoxaparin Sodium [...] % (Auto) 49.3, Lymph % (Auto) 36.9, Baxter % (Auto) 9.9, Eos % (Auto) 2.7, Baso % (Auto) 1.2, Nucleat RBC Rel Count 0.1, Neut # (Auto) 3.3, Lymph # (Auto) 2.5, Baxter # (Auto) 0.7, Eos # (Auto) 0.2, [...] By: <Electronically signed by JASMIN Walker> 12/13/22 162 <Electronically signed by Quynh Galvan MD> 12/14/22 0701 [facility] Work Phone: 1(154) 828-713510-18-2023 History and physical note Author Jose Martin Sen [facility] December 13, 2022 3:06pm Note Date/Time December 13, 2022 1 0:16am [facility] [address] [place] [address] Physiatry (Rehab) H&P Signed Patient: Viraj Doherty MR#: [id number] : 1955 Acct:[id number] Age/Sex: 67 / M Adm Date: 3 Loc: Room: 6H0721-6 Type: ADM IN Attending Dr: Jose Martin [...] discomfort. No cardiopulmonary symptoms. No GI/ concerns. [facility] Medical History (Updated 12/13/22 @ 11:18 by [...] Bisacodyl (Bisacodyl 10 Mg Supp.Rect) 10 mg OK DAILY PRN PRN Reason: Constipation Stop: 12/12/23 [...] Enema 283 Mg/5 Ml Enema) 283 mg OK DAILY PRN PRN Reason: Constipation Stop: 12/12/23 18:41 Enoxaparin Sodium (Enoxaparin 40 Mg/0.4 Ml Syringe) 40 mg SUBCUT DAILY@1000 [facility] Stop: 12/13/23 09:59 Last Admin: 12/13/22 09:34 Dose: 40 mg Lactulose (Lactulose 20 Gm/30 Ml Udc) 30 gm PO DAILY PRN PRN Reason: Constipation Stop: 12/12/23 18:41 Levetiracetam (Levetiracetam 500 Mg Tablet) 500 mg PO BID [facility] Stop: 12/12/23 20:59 Last Admin: 12/13/22 09:32 Dose: 500 mg Polysaccharide Iron Complex (Iron Polysaccharide Complex 150 Mg Capsule) 150 mgPO Q48H [facility] Stop: 12/12/23 15:29 Last Admin: 12/13/22 07:50 Dose: Not Given Sennosides (Sennosides 8.6 Mg Tablet) 2 tab PO DAILY@12 PRN PRN Reason: If no BM in 2 days Stop: 12/13/23 11:59 Sodium Chloride (Sodium Chloride 0.9 % 10 Ml Syringe) 0 ml IV-PUSH PRN PRN PRN Reason: Flush Stop: 12/12/23 18:41 Valsartan (Valsartan 160 Mg Tablet) 160 mg PO DAILY [facility] Stop: 12/13/23 08:59 Last Admin: 12/13/22 10:01 [...] % (Auto) 49.3 Lymph % (Auto) 36.9 Baxter % (Auto) 9.9 Eos % (Auto) 2.7 Baso % (Auto) 1.2 Nucleat RBC Rel Count 0.1 Neut # (Auto) 3.3 Lymph # (Auto) 2.5 Baxter # (Auto) 0.7 Eos # (Auto) 0.2 [...] mobility Anticipated interventions: Physician management, PT, OT, RN CLINICAL RESEARCH, , Dietitian, RehabNursing, Case management 2. Therapy Functional Outcome/Goal: Anticipate independent for transfers Anticipated interventions: Physician management, PT, OT, RN CLINICAL RESEARCH, Case management, Dietitian, Rehab Nursing 3. Therapy Functional Outcome/Goal: Anticipate independent ambulation Anticipated interventions: Physician management, PT, OT, RN CLINICAL RESEARCH Case management, Dietitian, Rehab Nursing 4.Therapy Functional Outcome/Goal: Anticipate independent self-care Anticipated interventions: Physician management, PT, OT, RN CLINICAL RESEARCH, Case management, Dietitian, Rehab Nursing 5.Therapy Functional Outcome/Goal: Anticipate independent functional communication / swallowing Anticipated interventions: Physician management, PT, OT, RN CLINICAL RESEARCH, Case management, Dietitian, Rehab Nursing Required Therapy [...] additional therapy on as needed basis. Comments: RN CLINICAL RESEARCH to evaluate and treat patient?s cognition, language and communication skills, assess swallow function. Other: Dietitian, Rehab nursing, Wound, P&O, Neuropsychology as needed RATIONALE FOR IRF ADMISSION: Patient has both medical and functional complexities that require 24 hour daily monitoring and intervention from Speaker Mounter as well as other consulting physicians including internal medicine as well as 24 hour daily interactive media project manager nursing - for medical safe / optimal management. Patient requires interdisciplinary therapy team rehabilitation care including OT, PT, RN CLINICAL RESEARCH, SW, Psychology, Rehab Nursing, requires and can [...] equipment to enhance the patient's a functional orthodoxy Ensure adequate nutrition and hydration Sleep: No concerns. Pain: No issues. Discharge planning: Home with in 7 to 10 days. I spent greater than 35 minutes for services, including grmh-sk-clcz encounter with the patient, discussion of the case, plan of care, and exam; and swpyjab-cf-lbvt activities, such as reviewing pertinent qm consultant documentation, recent therapy notes, laboratory and radiology studies, and discussion of case with care team including physician, nursing, case management manager, and therapists. More than 50 % of time was spent on patient/family counseling or coordination ofcare. Plan: I completed a substantive portion of this encounter, the medical decision makingportion of this note in its entirety, including Allied health note review, nursing note review, qm consultant note review, discussion with nursing and case management, and more than 50% of my time was spent on counseling and coordination of care, time spent 75 minutes Patient was personally seen by me, Dr. Sen, on the day of encounter, within 24hours of rehab admission, reviewed the history and the relevant portions of the chart, including current orders, allied health and qm consultant notes, labs/imaging and performed garner elements of exam and I formulated the plan of care and facilitated the medical decision making. In addition to above-Goal BP 140-160s with intracranial atherosclerosis. Seizureprecautions. Documented By: Janice Altamirano APRN 12/13/22 1 014 Signed By: <Electronically signed by JASMIN Altamirano> 12/13/22 1120 <Electronically signed by Jose Martin Sen MD> 12/13/22 3446 [facility] Work Phone: 1(491) 453-557010-17-2023 Consult note Author Santosh Rivera [facility] December 12, 2022 2:19pm Note Date/Time December 12, 2022 2 :11pm [facility] [address] [place] [address] Physiatry (Rehab) Consult Note Signed Patient: Viraj Doherty MR#: [id number] : 1955 Acct:[id number] Age/Sex: 67 / M Adm Date: 3 Loc: Room: [address] [place] [address] Type: ADM IN Attending Dr: Davey Harding MD Copies to: DaveyMD Santosh Nogueira MD Douglas M Hoy, MD~ HPI Consult Date: 12/12/22 Requesting Physician: Davey Harding MD Primary Care Provider: Marilyn Patrick MD Consult Narrative Reason for consult: Evaluation for evaluation rehab HPI: Mr. 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 He has continued impaired mobility and impaired independence with ADLs and IADLs requiring PT/OT/RN CLINICAL RESEARCH 5-7 days/week 3 hours/day to maximize safety [...] supervision is both reasonable and necessary, including dyrd-ir-jbfl visits at least 3 days/week with the [...] Allied health note review, nursing note review, qm consultant note review, discussion with nursing and case management, and more than 50% of my time was spent on counseling and coordination of care, time spent 65 minutes Patient was personally seen by me, Dr. Rivera, on the day of encounter, reviewed the history and the relevant portions of the chart, including current orders, allied health and qm consultant notes, labs/imaging and performed garner elements of exam and I formulated the plan of care and facilitated the medical decision making. Documented By: Santosh Rivera MD 1410 Signed By: <Electronically signed by Santosh Rivera MD> 12/12/22 1419 [facility] Work Phone: 1(191) 403-374810-17-2023 Progress note Author Davey Hardign [facility] December 12, 2022 1:27pm Note Date/Time December 12, 2022 1 :27pm [facility] [address] [place] [address] Hospitalist Progress Note Signed Patient: Viraj Doherty MR#: [id number] : 1955 Acct:[id number] Age/Sex: 67 / M Adm Date: 3 Loc: Room: [address] [place] [address] Type: ADM IN Attending Dr: Davey Harding [...] <Electronically signed by Davey Harding MD> 12/12/221326 [facility] Work Phone: 1(353) 444-834410-17-2023 Discharge summary Author Davey Harding [facility] December 12, 2022 1:25pm Note Date/Time December 11, 2022 2 :52pm [facility] [address] [place] [address] Discharge Summary Signed Patient: Viraj Doherty MR#: [id number] : 1955 Acct:[id number] Age/Sex: 67 / M Adm Date: 3 Loc: Room: [address] [place] [address]: Davey Harding MD Copies to: [...] % (Auto) 58.7, Lymph % (Auto) 30.3, Baxter % (Auto) 7.5, Eos % (Auto) 2.3, Baso % (Auto) 1.2, Nucleat RBC Rel Count 0.1, Neut # (Auto) 4.7, Lymph # (Auto) 2.4, Baxter # (Auto) 0.6, Eos # (Auto) 0.2, [...] Discharge Plan Discharge Plan Patient Disposition: Rehab [facility] Activity: Other Comment: Please follow seizure precautions [...] 40 mg subcut Q14D Qty: 0 0RF cgeekrfgkx-szvroxivd-iwwltkuxz 10-320-25 mg tablet 1 tab PO DAILY [...] restart this. Follow Up: [facility] [Outside] - 12/26/22 9:00 am Documented By: Davey Harding MD 12/11/22 1448 Signed By: <Electronically signed by Davey Harding MD> 12/12/22 1325 [facility] Work Phone: 1(860) 664-996810-16-2023 Progress note Author Jose David Aponte [facility] December 11, 2022 3:31pm Note Date/Time December 11, 2022 3 :31pm [facility] [address] [place] [address] Neurology Progress Note Signed Patient: Viraj Doherty MR#: [id number] : 1955 Acct:[id number] Age/Sex: 67 / M Adm Date: 3 Loc: 4C Room: 7F7142-3 Type: ADM IN Attending Dr: Davey Harding [...] rapidly alternating movements. No limb dysmetria with xswaev-yoow-wncdni testing. DATA REVIEW: -CT head without acute [...] signed by Jose David Aponte DO> 12/11/22 9711 [facility] Work Phone: 1(883) 156-363010-16-2023 Progress note Author Davey Harding [facility] December 11, 2022 3:09pm Note Date/Time December 11, 2022 3 :09pm [facility] [address] [place] [address] Hospitalist Progress Note Signed Patient: Viraj Doherty MR#: [id number] : 1955 Acct:[id number] Age/Sex: 67 / M Adm Date: 3 Loc: Room: 5I7304-6 Type: ADM IN Attending Dr: Davey Harding [...] signed by Davey Harding MD> 12/11/22 1509 [facility] Work Phone: 1(454) 722-784910-16-2023 Progress note Author Mindi Juan [facility] December 10, 2022 10:03pm Note Date/Time December 10, 2022 9 :59pm [facility] [address] [place] [address] Hospitalist Progress Note Signed Patient: Viraj Doherty MR#: [id number] : 1955 Acct:[id number] Age/Sex: 67 / M Adm Date: 3 Loc: Room: [address] [place] [address] Type: ADM IN Attending Dr: Mindi Juan [...] Laboratory work up and Imaging studies reviewed panel monitor - reviewed EKG - personally reviewed [...] Plan 1. New onset seizure - on arianra, neurology following 2. Recent thalamic CVA with residual dysarthria 3. HTN 4. Iron def anemia - HH drop from 1 m ago, recheck in am peobably needs evaluated as outpt Guaiac stool pending 5. HypoKalemia - replaced Documented By: Mindi Juan MD 12/10/222152 Signed By: <Electronically signed by Mindi Juan MD> 12/10/222202 [facility] Work Phone: 1(176) 449-165310-15-2023 Consult note Author Jose David Aponte [facility] December 10, 2022 3:17pm Note Date/Time December 10, 2022 1 0:51am [facility] [address] [place] [address] Neurology Consult Note Signed Patient: Viraj Doherty MR#: [id number] : 1955 Acct:[id number] Age/Sex: 67 / M Adm Date: 3 Loc: Room: [address] [place] [address] Type: ADM IN Attending Dr: Mindi Juan MD Copies to: DO Marilyn Abbott MD Ruta Semaskiene, MD~ HPI Consult Date: 12/10/22 Pharmaceutical Analyst: Jose David Aponte DO [facility] Medical History CVA (cerebral vascular accident) HTN [...] rapidly alternating movements. No limb dysmetria with vfmzhz-vaim-tybrvy testing. DATA REVIEW: -CT head without acute [...] signed by Jose David Aponte DO> 12/10/22 5085 [facility] Work Phone: 1(353) 256-440110-15-2023 History and physical note Author Ton Wilkinson [facility] December 10, 2022 12:15am Note Date/Time December 09, 2022 1 1:30pm [facility] [address] [place] [address] Hospitalist H&P Signed Patient: Viraj Doherty MR#: [id number] : 1955 Acct:[id number] Age/Sex: 67 / M Adm Date: 3 Loc: Room: [address] [place] [address] Type: ADM IN Attending Dr: Ton Wilkinson MD Copies to: MD Ton Millan MD~ HPI DATE OF EXAMINATION: 12/09/22 CHIEF COMPLAINT: Seizure HISTORY OF PRESENT ILLNESS: This is a 67-year-old male with recent history of thalamic CVA who had a witnessed seizure today and was transferred to the [facility]. The patient had a witnessed generalized seizure by his . No prior history of seizure. Deniesany chest pain headache visual changes or no neurologic symptoms. Noncontrast CT of the head did not show any acute changes. The patient was admitted to [facility] for further management Review of Systems Review of Systems All other systems reviewed & are negative unless noted below or in HPI [facility] Medical History CVA (cerebral vascular accident) HTN [...] (# of days): 2 Documented By: Ton Wlikinson MD 12/09/22 1235 Signed By: <Electronically signed by Ton Wilkinson MD> 12/10/22 0015 [facility] Work Phone: 1(282) [phone] Progress note Author Jose Martin Sen [facility] November 14, 2022 10:36am Note Date/Time November 14, 2022 10:36am [facility] [address] [place] [address] Physiatry(Rehab) Progress Note Signed Patient: Viraj Doherty MR#: [id number] : 1955 Acct:[id number] Age/Sex: 67 / M Adm Date: 3 Loc: Room: 6J9448-8 Type: ADM IN Attending Dr: Jose Martin [...] Case was discussed between ER physician and [place] interventional radiology who requested the patient stay [...] by day. 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 [...] mg 11/02/22 15:00 Bisacodyl 10 Mg Supp.Rect OK 11/02/23 14:59 DAILY PRN Constipation Clopidogrel Bisulfate 75 mg 11/03/22 09:00 11/14/22 09:10 Clopidogrel Bisulfate 75 Mg Tablet PO 11/03/23 08:59 75 mg DAILY LEVON Administration Docusate Sodium 100 mg 11/02/22 15:00 Docusate 100 Mg Capsule PO 11/02/23 14:59 BID PRN Constipation Docusate Sodium 283 mg 11/02/22 15:00 Docusate Enema 283 Mg/5 Ml Enema OK 11/02/23 14:59 DAILY PRN Constipation Enoxaparin Sodium [...] hypertensive urgency with systolic blood pressures in [id number] Continue with his current antihypertensive regimen and [...] trazodone. DVT prophylaxis: Continue Functional status: Impaired. PT/OT/RN CLINICAL RESEARCH as ordered Discharge planning: Home 11/14/22 I spent greater than 35 minutes for services, including dfri-[id number] encounter with the patient, discussion of the case, plan of care, and exam; and flahejf-wj-vnzg activities, such as reviewing pertinent qm consultant documentation, recent therapy notes, laboratory and radiology studies, and discussion of case with care team including physician, nursing, case management manager, and therapists. More than 50 % of time was spent on patient/family counseling or coordination ofcare. Documented By: Jose Martin Sen MD 11/14/22 1035 Signed By: <Electronically signed by Jose Mratin Sen MD> 11/14/22 1036 [facility] Work Phone: 1(288) 640-417909-18-2023 Progress note Author Jose Martin Sen [facility] November 13, 2022 12:08pm Note Date/Time November 11, 2022 11:02am [facility] [address] [place] [address] Physiatry(Rehab) Progress Note Signed Patient: Viraj Doherty MR#: [id number] : 1955 Acct:[id number] Age/Sex: 67 / M Adm Date: 3 Loc: 5T Room: [address] [place] [address] Type: ADM IN Attending Dr: Jose Martin [...] Case was discussed between ER physician and [place] interventional radiology who requested the patient stay [...] by day. 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 Dysarthric speech. Objective <Janice Altamirano, REGISTERED RADIOGRAPHER - Last Filed: 11/11/22 11:02> Labs 11/08/22 [...] mg 11/02/22 15:00 Bisacodyl 10 Mg Supp.Rect OK 11/02/23 14:59 DAILY PRN Constipation Clopidogrel Bisulfate 75 mg 11/03/22 09:00 11/11/22 09:27 Clopidogrel Bisulfate 75 Mg Tablet PO 11/03/23 08:59 75 mg DAILY LEVON Administration Docusate Sodium 100 mg 11/02/22 15:00 Docusate 100 Mg Capsule PO 11/02/23 14:59 BID PRN Constipation Docusate Sodium 283 mg 11/02/22 15:00 Docusate Enema 283 Mg/5 Ml Enema OK 11/02/23 14:59 DAILY PRN Constipation Enoxaparin Sodium [...] mg DAILY LEVON Administration Assessment/Plan <Janice Altamirano, REGISTERED RADIOGRAPHER - Last Filed: 11/11/22 11:02> Assessment/Plan (1) [...] hypertensive urgency with systolic blood pressures in [id number] Continue with his current antihypertensive regimen and [...] trazodone. DVT prophylaxis: Continue Functional status: Impaired. PT/OT/RN CLINICAL RESEARCH as ordered Discharge planning: Home next week, tentatively 9/19/23 I spent greater than 15 minutes for services, including fdeb-ks-vnkg encounter with the patient, discussion of the case, plan of care, and exam; and vxrfiwq-uw-esyj activities, such as reviewing pertinent qm consultant documentation, recent therapy notes, laboratory and radiology studies, and discussion of case with care team including physician, nursing, case management manager, and therapists. More than 50 % of time was spent on patient/family counseling or coordination ofcare. <oJse Martin Sen MD - Last Filed: 11/13/22 [...] hypertensive urgency with systolic blood pressures in [id number] Continue with his current antihypertensive regimen and [...] the chart, including currentorders, allied health and qm consultant notes, labs/imaging and plan of care as above. Documented By: Janice Altamirano APRN 11/11/22 1 059 Signed By: <Electronically signed by JASMIN Altamirano> 11/11/22 1102 <Electronically signed by Jose Martin Sen MD> 11/13/22 1200 [facility] Work Phone: 1(142) [phone] Progress note Author Jose Martin Sen [facility] November 13, 2022 12:07pm Note Date/Time November 09, 2022 12:58pm [facility] [address] [place] [address] Physiatry(Rehab) Progress Note Signed Patient: Viraj Doherty MR#: [id number] : 1955 Acct:[id number] Age/Sex: 67 / M Adm Date: 3 Loc: Room: 4P5767-2 Type: ADM IN Attending Dr: Jose Martin [...] Case was discussed between ER physician and [place] interventional radiology who requested the patient stay [...] by day. 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 [...] 11/03/22 09:00 11/09/22 09:10 Aspirin 81 Mg Tablet.Dr PO 11/03/23 08:59 81 mg DAILY LEVON Administration Atorvastatin Calcium 80 mg 11/02/22 21:00 11/08/22 21:48 Atorvastatin 80 Mg Tablet PO 11/02/23 20:59 80 mg QPM LEVON Administration Bisacodyl 10 mg 11/02/22 15:00 Bisacodyl 10 Mg Supp.Rect OK 11/02/23 14:59 DAILY PRN Constipation Clopidogrel Bisulfate 75 mg 11/03/22 09:00 11/09/22 09:10 Clopidogrel Bisulfate 75 Mg Tablet PO 11/03/23 08:59 75 mg DAILY LEVON Administration Docusate Sodium 100 mg 11/02/22 15:00 Docusate 100 Mg Capsule PO 11/02/23 14:59 BID PRN Constipation Docusate Sodium 283 mg 11/02/22 15:00 Docusate Enema 283 Mg/5 Ml Enema OK 11/02/23 14:59 DAILY PRN Constipation Enoxaparin Sodium [...] mg DAILY LEVON Administration Assessment/Plan <Janice Altamirano, REGISTERED RADIOGRAPHER - Last Filed: 11/09/22 13:00> Assessment/Plan (1) [...] hypertensive urgency with systolic blood pressures in [id number] Continue with his current antihypertensive regimen and [...] trazodone. DVT prophylaxis: Continue Functional status: Impaired. PT/OT/RN CLINICAL RESEARCH as ordered Discharge planning: Home next week, tentatively 11/14/22 I spent greater than 15 minutes for services, including [id number] encounter with the patient, discussion of the case, plan of care, and exam; and hfovohg-jo-pkjj activities, such as reviewing pertinent qm consultant documentation, recent therapy notes, laboratory and radiology studies, and discussion of case with care team including physician, nursing, case management manager, and therapists. More than 50 % [...] hypertensive urgency with systolic blood pressures in [id number] Continue with his current antihypertensive regimen and [...] Allied health note review, nursing note review, qm consultant note review, discussion with nursing and case management, and more than 50% of my time was spent on counseling and coordination of care, time spent 25 minutes Patient was personally seen by me, Dr. Sen, on the day of encounter, reviewed the history and the relevant portions of the chart, including current orders, allied health and qm consultant notes, labs/imaging and performed garner elements of exam and I formulated the plan of care and facilitated the medical decision making. Documented By: Janice Altamirano APRN 11/09/22 1 251 Signed By: <Electronically signed by JASMIN Altamirano> 11/09/22 1300 <Electronically signed by Jose Martin Sen MD> 11/13/22 120 [facility] Work Phone: 1(861) 438-944409-13-2023 Progress note Author Jose Martin Sne [facility] November 08, 2022 11:51am Note Date/Time November 08, 2022 11:51am [facility] [address] [place] [address] Physiatry(Rehab) Progress Note Signed Patient: Viraj Doherty MR#: [id number] : 1955 Acct:[id number] Age/Sex: 67 / M Adm Date: 3 Loc: Room: 5R5159-4 Type: ADM IN Attending Dr: Jose Martin [...] Case was discussed between ER physician and [place] interventional radiology who requested the patient stay [...] by day. 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 [...] % (Auto) 63.8 Lymph % (Auto) 21.8 Baxter % (Auto) 12.9 Eos % (Auto) 0.4 Baso % (Auto) 1.1 Nucleat RBC Rel Count 0.1 Neut # (Auto) 4.9 Lymph # (Auto) 1.7 Baxter # (Auto) 1.0 H Eos # (Auto) 0.0 Baso # (Auto) 0.1 PHA Creatinine Clear 63.70 Sodium 136 Potassium 3.5 Chloride 100 Carbon Dioxide 28.8 Anion Gap 10.7 BUN 28 H Creatinine 1.13 Est GFR (CKD-EPI) > 60.0 Glucose 105 H Calcium 9.4 Urine Color Yellow Urine Appearance Clear Urine pH 5.5 Ur Specific [place] 1.014 Urine Protein Negative Urine Glucose (UA) [...] % (Auto) 56.5 Lymph % (Auto) 28.3 Baxter % (Auto) 13.4 Eos % (Auto) 0.9 Baso % (Auto) 0.9 Nucleat RBC Rel Count 0.1 Neut # (Auto) 5.3 Lymph # (Auto) 2.7 Baxter # (Auto) 1.3 H Eos # (Auto) 0.1 Baso # (Auto) 0.1 PHA Creatinine Clear 66.04 Sodium 137 Potassium 3.5 Chloride 103 Carbon Dioxide 26.8 Anion Gap 10.7 BUN 27 H Creatinine 1.09 Est GFR (CKD-EPI) > 60.0 Glucose 104 H Calcium 9.3 Urine Color Urine Appearance Urine pH Ur Specific [place] Urine Protein Urine Glucose (UA) Urine Ketones [...] mg 11/02/22 15:00 Bisacodyl 10 Mg Supp.Rect OK 11/02/23 14:59 DAILY PRN Constipation Clopidogrel Bisulfate 75 mg 11/03/22 09:00 11/08/22 09:50 Clopidogrel Bisulfate 75 Mg Tablet PO 11/03/23 08:59 75 mg DAILY LEVON Administration Docusate Sodium 100 mg 11/02/22 15:00 Docusate 100 Mg Capsule PO 11/02/23 14:59 BID PRN Constipation Docusate Sodium 283 mg 11/02/22 15:00 Docusate Enema 283 Mg/5 Ml Enema OK 11/02/23 14:59 DAILY PRN Constipation Enoxaparin Sodium [...] hypertensive urgency with systolic blood pressures in [id number] Continue with his current antihypertensive regimen and [...] trazodone. DVT prophylaxis: Continue Functional status: Impaired. PT/OT/RN CLINICAL RESEARCH as ordered Discharge planning: Home next week, tentatively 11/14/22 Plan: I completed a substantive portion of this encounter, the medical decision makingportion of this note in its entirety, including Allied health note review, nursing note review, qm consultant note review, discussion with nursing and case management, and more than 50% of my time was spent on counseling and coordination of care, time spent 30 minutes Patient was personally seen by me, Dr. Sen, on the day of encounter, reviewed the history and the relevant portions of the chart, including current orders, allied health and qm consultant notes, labs/imaging and performed garner elements of exam and I formulated the plan of care and facilitated the medical decision making. Documented By: Jose Martin Sen MD 11/08/22 1149 Signed By: <Electronically signed by Jose Martin Sen MD> 11/08/22 1155 [facility] Work Phone: 1(227) [phone] Progress note Author Nu Nru [facility] November 08, 2022 9:11am Note Date/Time November 07, 2022 4:12pm [facility] [address] [place], [place] [address] Hospitalist Progress Note Signed Patient: Viraj Doherty MR#: [id number] : 1955 Acct:[id number] Age/Sex: 67 / M Adm Date: 3 Loc: 5T Room: 3T3392-2 Type: ADM IN Attending Dr: Jose Martin [...] mg 11/02/22 15:00 Bisacodyl 10 Mg Supp.Rect OK 11/02/23 14:59 DAILY PRN Constipation Clopidogrel Bisulfate 75 mg 11/03/22 09:00 11/07/22 09:32 Clopidogrel Bisulfate 75 Mg Tablet PO 11/03/23 08:59 75 mg DAILY LEVON Administration Docusate Sodium 100 mg 11/02/22 15:00 Docusate 100 Mg Capsule PO 11/02/23 14:59 BID PRN Constipation Docusate Sodium 283 mg 11/02/22 15:00 Docusate Enema 283 Mg/5 Ml Enema OK 11/02/23 14:59 DAILY PRN Constipation Enoxaparin Sodium [...] signed by Nu Nur MD> 11/08/22 0911 [facility] Work Phone: 1(190) 686-313509-12-2023 Progress note Author Jose Martin Sen [facility] November 07, 2022 11:59am Note Date/Time November 07, 2022 10:25am [facility] [address] [place] [address] Physiatry(Rehab) Progress Note Signed Patient: Viraj Doherty MR#: [id number] : 1955 Acct:[id number] Age/Sex: 67 / M Adm Date: 3 Loc: 5T Room: [address] [place] [address] Type: ADM IN Attending Dr: Jose Martin [...] Case was discussed between ER physician and [place] interventional radiology who requested the patient stay [...] by day. 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 [...] mg 11/02/22 15:00 Bisacodyl 10 Mg Supp.Rect OK 11/02/23 14:59 DAILY PRN Constipation Clopidogrel Bisulfate 75 mg 11/03/22 09:00 11/07/22 09:32 Clopidogrel Bisulfate 75 Mg Tablet PO 11/03/23 08:59 75 mg DAILY LEVON Administration Docusate Sodium 100 mg 11/02/22 15:00 Docusate 100 Mg Capsule PO 11/02/23 14:59 BID PRN Constipation Docusate Sodium 283 mg 11/02/22 15:00 Docusate Enema 283 Mg/5 Ml Enema OK 11/02/23 14:59 DAILY PRN Constipation Enoxaparin Sodium 40 mg 11/04/22 10:00 11/07/22 09:32 Enoxaparin 40 Mg/0.4 Ml Syringe SUBCUT 11/04/23 09:59 40 mg DAILY@1000 LEVON Administration Hydralazine HCl 25 mg 11/03/22 14:00 09/12/23 09:32 Hydralazine 25 Mg Tablet PO 11/03/23 [...] hypertensive urgency with systolic blood pressures in llt000s Continue with his current antihypertensive regimen and [...] -K improved, 3.8 today. -Diet as per RN CLINICAL RESEARCH and dietitian. -Monitor BP goal ~160 SBP [...] trazodone. DVT prophylaxis: Continue Functional status: Impaired. PT/OT/RN CLINICAL RESEARCH as ordered Discharge planning: Home next week, tentatively 11/14/22/ Plan: I completed a substantive portion of this encounter, the medical decision makingportion of this note in its entirety, including Allied health note review, nursing note review, qm consultant note review, discussion with nursing and case management, and more than 50% of my time was spent on counseling and coordination of care, time spent 30 minutes Patient was personally seen by me, Dr. Sen, on the day of encounter, reviewed the history and the relevant portions of the chart, including current orders, allied health and qm consultant notes, labs/imaging and performed garner elements of exam and I formulated the plan of care and facilitated the medical decision making. Documented By: Jose Martin Sen MD 11/07/22 1025 Signed By: <Electronically signed by Jose Martin Sen MD> 11/07/22 8382 [facility] Work Phone: 1(518) [phone] Progress note Author Jose Martin Sen [facility] November 06, 2022 12:00pm Note Date/Time November 06, 2022 11:16am [facility] [address] [place] [address] Physiatry(Rehab) Progress Note Signed Patient: Viraj Doherty MR#: Lesley [id number] : 1955 Acct:[id number] Age/Sex: 67 / M Adm Date: 3 Loc: Room: 7O5658-2 Type: ADM IN Attending Dr: Jose Martin [...] Case was discussed between ER physician and [place] interventional radiology who requested the patient stay [...] by day. 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 [...] 11/03/22 09:00 11/06/22 09:59 Aspirin 81 Mg Tablet.Dr PO 11/03/23 08:59 81 mg DAILY LEVON Administration Atorvastatin Calcium 80 mg 11/02/22 21:00 11/05/22 21:02 Atorvastatin 80 Mg Tablet PO 11/02/23 20:59 80 mg QPM LEVON Administration Bisacodyl 10 mg 11/02/22 15:00 Bisacodyl 10 Mg Supp.Rect OK 11/02/23 14:59 DAILY PRN Constipation Clopidogrel Bisulfate 75 mg 11/03/22 09:00 11/06/22 09:59 Clopidogrel Bisulfate 75 Mg Tablet PO 11/03/23 08:59 75 mg DAILY LEVON Administration Docusate Sodium 100 mg 11/02/22 15:00 Docusate 100 Mg Capsule PO 11/02/23 14:59 BID PRN Constipation Docusate Sodium 283 mg 11/02/22 15:00 Docusate Enema 283 Mg/5 Ml Enema OK 11/02/23 14:59 DAILY PRN Constipation Enoxaparin Sodium [...] hypertensive urgency with systolic blood pressures in [id number] Continue with his current antihypertensive regimen and [...] Optimize DVT prophylaxis: Continue Functional status: Impaired. PT/OT/RN CLINICAL RESEARCH as ordered Discharge planning: Home next week. Plan: I completed a substantive portion of this encounter, the medical decision makingportion of this note in its entirety, including Allied health note review, nursing note review, qm consultant note review, discussion with nursing and case management, and more than 50% of my time was spent on counseling and coordination of care, time spent 30 minutes Patient was personally seen by me, Dr. Sen, on the day of encounter, reviewed the history and the relevant portions of the chart, including current orders, allied health and qm consultant notes, labs/imaging and performed garner elements of exam and I formulated the plan of care and facilitated the medical decision making. Documented By: Jose Martin Sen MD 11/06/22 1115 Signed By: <Electronically signed by Jose Martin Sen MD> 11/06/22 1200 [facility] Work Phone: 1(223) 433-307509-09-2023 Progress note Author Jose Martin Sen [facility] November 04, 2022 10:52am Note Date/Time November 04, 2022 10:52am [facility] [address] [place] [address] Physiatry(Rehab) Progress Note Signed Patient: Viraj Doherty MR#: [id number] : 1955 Acct:[id number] Age/Sex: 67 / M Adm Date: 3 Loc: 5T Room: 9Q6923-1 Type: ADM IN Attending Dr: Jose Martin [...] Case was discussed between ER physician and [place] interventional radiology who requested the patient stay [...] by day. 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 [...] mg 11/02/22 15:00 Bisacodyl 10 Mg Supp.Rect OK 11/02/23 14:59 DAILY PRN Constipation Clopidogrel Bisulfate 75 mg 11/03/22 09:00 11/04/22 08:39 Clopidogrel Bisulfate 75 Mg Tablet PO 11/03/23 08:59 75 mg DAILY LEVON Administration Docusate Sodium 100 mg 11/02/22 15:00 Docusate 100 Mg Capsule PO 11/02/23 14:59 BID PRN Constipation Docusate Sodium 283 mg 11/02/22 15:00 Docusate Enema 283 Mg/5 Ml Enema OK 11/02/23 14:59 DAILY PRN Constipation Enoxaparin Sodium [...] hypertensive urgency with systolic blood pressures in [id number] This was slowly lowered during his inpatient [...] Optimize DVT prophylaxis: Continue Functional status: Impaired. PT/OT/RN CLINICAL RESEARCH as ordered Discharge planning: Home 1-2 weeks, pending progress. Plan: I completed a substantive portion of this encounter, the medical decision makingportion of this note in its entirety, including Allied health note review, nursing note review, qm consultant note review, discussion with nursing and case management, and more than 50% of my time was spent on counseling and coordination of care, time spent 30 minutes Patient was personally seen by me, Dr. Sen, on the day of encounter, reviewed the history and the relevant portions of the chart, including current orders, allied health and qm consultant notes, labs/imaging and performed garner elements of exam and I formulated the plan of care and facilitated the medical decision making. Documented By: Jose Martin Sen MD 11/04/22 105 Signed By: <Electronically signed by Jose Martin Sen MD> 11/04/22 1052 [facility] Work Phone: 1(901) 301-278909-08-2023 Consult note Author Sara Osorio [facility] November 03, 2022 6:45pm Note Date/Time November 03, 2022 2:03pm [facility] [address] [place] [address] Hospitalist Consult Note Signed with [place] Patient: Viraj Doherty MR#: [id number] : 1955 Acct:[id number] Age/Sex: 67 / M Adm Date: 3 Loc: Room: [address] [place] [address] Type: ADM IN Attending Dr: Jose Martin [...] stroke. Patient admitted to inpatient rehab unit. [facility] consulted for medical management of essential HTN. [...] ER physician discussed with stroke team in [place] who did not recommend TNK as patient was outside the window and was recommended for admission for MRI and neurology evaluation with the commencement of DAPT therapy and statin therapy. Patient was subsequently stabilized and admitted to the inpatient rehab unit. Patient per patient's was admitted to [facility] 2 years prior with uncontrolled hypertension and [...] except as mentioned elsewhere in the documentation. [facility] Medical History CVA (cerebral vascular accident) HTN [...] mg 11/02/22 15:00 Bisacodyl 10 Mg Supp.Rect OK 11/02/23 14:59 DAILY PRN Constipation Clopidogrel Bisulfate 75 mg 11/03/22 09:00 11/03/22 09:01 Clopidogrel Bisulfate 75 Mg Tablet PO 11/03/23 08:59 75 mg DAILY LEVON Administration Docusate Sodium 100 mg 11/02/22 15:00 Docusate 100 Mg Capsule PO 11/02/23 14:59 BID PRN Constipation Docusate Sodium 283 mg 11/02/22 15:00 Docusate Enema 283 Mg/5 Ml Enema OK 11/02/23 14:59 DAILY PRN Constipation Enoxaparin Sodium [...] % (Auto) 64.6, Lymph % (Auto) 21.6, Baxter % (Auto) 12.2, Eos % (Auto) 0.8, Baso % (Auto) 0.8, Nucleat RBC Rel Count 0.0, Neut # (Auto) 8.9 H, Lymph # (Auto) 3.0, Baxter # (Auto) 1.7 H, Eos # (Auto) [...] hypertensive urgency with systolic blood pressures in [id number] (5) Nonadherence to medication: (6) Intracranial atherosclerosis: [...] signed by Rohan Levy DO> 11/03/22 1557 [facility] Work Phone: 1(172) 429-753409-08-2023 History and physical note Author Jose Martin Sen [facility] November 03, 2022 12:59pm Note Date/Time November 03, 2022 9:33am [facility] [address] [place] [address] Physiatry (Rehab) H&P Signed Patient: Viraj Doherty MR#: [id number] : 1955 Acct:[id number] Age/Sex: 67 / M Adm Date: 3 Loc: Room: [address] [place] [address] Type: ADM IN Attending Dr: Jose Martin Sen MD Copies to: MD Jose Martin Millan MD Kyle Denihan, DO,RES~ <John Hodge DO, RES - Last Filed: 11/03/22 10:26> Date of Service: 11/03/2022 HPI <John Hodge DO RES - Last Filed: 11/03/22 10:26> The [...] Case was discussed between ER physician and [place] interventional radiology who requested the patient stay [...] by day. 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 [...] Filed: 11/03/22 12:59> Etiologic Diagnosis/Impairment Group: Stroke PMFSH <John Hodge DO, RES - Last Filed: [...] Bisacodyl (Bisacodyl 10 Mg Supp.Rect) 10 mg OK DAILY PRN PRN Reason: Constipation Stop: 11/02/23 14:59 Clopidogrel Bisulfate (Clopidogrel Bisulfate 75 Mg Tablet) 75 mg PO DAILY [facility] Stop: 11/03/23 08:59 Last Admin: 11/03/22 09:01 Dose: 75 mg Docusate Sodium (Docusate 100 Mg Capsule) 100 mg PO BID PRN PRN Reason: Constipation Stop: 11/02/23 14:59 Docusate Sodium (Docusate Enema 283 Mg/5 Ml Enema) 283 mg OK DAILY PRN PRN Reason: Constipation Stop: 11/02/23 [...] 320 Mg Tablet) 320 mg PO DAILY [facility] Stop: 11/03/23 08:59 Last Admin: 11/03/22 09:01 [...] % (Auto) 64.6 Lymph % (Auto) 21.6 Baxter % (Auto) 12.2 Eos % (Auto) 0.8 Baso % (Auto) 0.8 Nucleat RBC Rel Count 0.0 Neut # (Auto) 8.9 H Lymph # (Auto) 3.0 Baxter # (Auto) 1.7 H Eos # (Auto) [...] mobility Anticipated interventions: Physician management, PT, OT, RN CLINICAL RESEARCH, , Dietitian, RehabNursing, Case management 2. Therapy Functional Outcome/Goal: Anticipate independent transfers Anticipated interventions: Physician management, PT, OT, RN CLINICAL RESEARCH, Case management, Dietitian, Rehab Nursing 3. Therapy Functional Outcome/Goal: Anticipate independent ambulation Anticipated interventions: Physician management, PT, OT, RN CLINICAL RESEARCH Case management, Dietitian, Rehab Nursing 4.Therapy Functional Outcome/Goal: Anticipate independent self-care Anticipated interventions: Physician management, PT, OT, RN CLINICAL RESEARCH, Case management, Dietitian, Rehab Nursing 5.Therapy Functional Outcome/Goal: Anticipate independent functional communication and swallowing Anticipated interventions: Physician management, PT, OT, RN CLINICAL RESEARCH, Case management, Dietitian, Rehab Nursing Required Therapy [...] additional therapy on as needed basis. Comments: RN CLINICAL RESEARCH to evaluate and treat patient?s cognition, language and communication skills, assess swallow function. Other: Dietitian, Rehab nursing, Wound, P&O, Neuropsychology as needed RATIONALE FOR IRF ADMISSION: Patient has both medical and functional complexities that require 24 hour daily monitoring and intervention from Speaker Mounter as well as other consulting physicians including internal medicine as well as 24 hour daily interactive media project manager nursing - for medical safe / optimal management. Patient requires interdisciplinary therapy team rehabilitation care including OT, PT, RN CLINICAL RESEARCH, SW, Psychology, Rehab Nursing, requires and can [...] hypertensive urgency with systolic blood pressures in [id number] This was slowly lowered during his inpatient [...] hypertensive urgency with systolic blood pressures in [id number] This was slowly lowered during his inpatient [...] DVT prophylaxis: Add lovenox Functional status: Imapired. Pt/OT/RN CLINICAL RESEARCH as ordered Discharge planning: Home 1-2 weeks Plan: I completed a substantive portion of this encounter, the medical decision makingportion of this note in its entirety, including Allied health note review, nursing note review, qm consultant note review, discussion with nursing and case management, and more than 50% of my time was spent on counseling and coordination of care, time spent 70 minutes Patient was personally seen by me, Dr. Sen, on the day of encounter, reviewed the history and the relevant portions of the chart, including current orders, allied health and qm consultant notes, labs/imaging and performed garner elements [...] signed by Jose Martin Sen MD> 11/03/22 3199 [facility] Work Phone: 1([phone]) 219-733409-06-2023 Progress note Author Davey Harding [facility] November 01, 2022 2:15pm Note Date/Time November 01, 2022 11:38am [facility] [address] [place] [address] Hospitalist Progress Note Signed Patient: Viraj Doherty MR#: [id number] : 1955 Acct:[id number] Age/Sex: 67 / M Adm Date: 3 Loc: Room: [address] [place] [address] Type: ADM IN Attending Dr: Davey Harding [...] of care and confirmed it with the resident/student/MAINTENANCE INSTRUCTOR. Patient resting in bed, is frustrated that he cannot eat well due to his right upper extremity weakness. He is approved for rehab once his blood pressure is controlled Exam Physical Exam Vital Signs: Temp Pulse Resp BP Pulse Ox O2 Del Method 98.3 F 70 18 179/79 H 99 Room Air 11/01/22 11:11/01/22 11:11/01/22 11:11/01/22 11:09 11/01/22 11:11/01/22 11:09 Narrative: CONSTITUTIONAL: Alert, oriented HEAD: [...] occlusions which were discussed with neurology in [place]. Will continue asa/plavix/statin - MRI showed evidence [...] signed by DO FLOYD Bear> 11/01/22 1138 [facility] Work Phone: 1([phone]) 202-553509-06-2023 Progress note Author Jose Martin Sen [facility] November 01, 2022 10:34am Note Date/Time November 01, 2022 10:32am [facility] [address] [place] [address] Physiatry(Rehab) Progress Note Signed Patient: Viraj Doherty MR#: [id number] : 1955 Acct:[id number] Age/Sex: 67 / M Adm Date: 3 Loc: Room: [address] [place] [address] Type: ADM IN Attending Dr: Davey Harding [...] % (Auto) 68.3 Lymph % (Auto) 23.0 Baxter % (Auto) 7.7 Eos % (Auto) 0.3 Baso % (Auto) 0.7 Nucleat RBC Rel Count 0.6 H Neut # (Auto) 9.2 H Lymph # (Auto) 3.1 Baxter # (Auto) 1.0 H Eos # (Auto) [...] MPV Neut % (Auto) Lymph % (Auto) Baxter % (Auto) Eos % (Auto) Baso % (Auto) Nucleat RBC Rel Count Neut # (Auto) Lymph # (Auto) Baxter # (Auto) Eos # (Auto) Baso # [...] complexity that cannot be best managed at [facility] level of care and requires at least 3 times weekly encounters with manager intranet for medical management and for plan of care review / changes. Plan: I completed a substantive portion of this encounter, the medical decision makingportion of this note in its entirety, including Allied health note review, nursing note review, qm consultant note review, discussion with nursing and case management, and more than 50% of my time was spent on counseling and coordination of care, time spent 20 minutes Patient was personally seen by me, Dr. Sen, on the day of encounter, reviewed the history and the relevant portions of the chart, including current orders, allied health and qm consultant notes, labs/imaging and performed garner elements of exam and I formulated the plan of care and facilitated the medical decision making. Documented By: Jose Martin Sen MD 11/01/22 1031 Signed By: <Electronically signed by Jose Martin Sen MD> 11/01/22 1034 [facility] Work Phone: 1([phone]) [phone] Consult note Author Jose Martin Sen [facility] October 31, 2022 2:43pm Note Date/Time October 31, 2022 11:39am [facility] [address] [place] [address] Physiatry (Rehab) Consult Note Signed Patient: Viraj Doherty MR#: [id number] : 1955 Acct:[id number] Age/Sex: 67 / M Adm Date: 3 Loc: Room: [address] [place] [address] Type: ADM IN Attending Dr: Davey Harding [...] negative unless noted below or in HPI [facility] Medical History CVA (cerebral vascular accident) HTN [...] % (Auto) 58.1 Lymph % (Auto) 31.1 Baxter % (Auto) 9.0 Eos % (Auto) 1.0 Baso % (Auto) 0.8 Nucleat RBC Rel Count 0.2 Neut # (Auto) 5.5 Lymph # (Auto) 3.0 Baxter # (Auto) 0.9 H Eos # (Auto) [...] Color Urine Appearance Urine pH Ur Specific [place] Urine Protein Urine Glucose (UA) Urine Ketones [...] % (Auto) 64.0 Lymph % (Auto) 25.2 Baxter % (Auto) 9.1 Eos % (Auto) 0.7 Baso % (Auto) 1.0 Nucleat RBC Rel Count 0.6 H Neut # (Auto) 6.5 Lymph # (Auto) 2.6 Baxter # (Auto) 0.9 H Eos # (Auto) 0.1 Baso # (Auto) 0.1 Monocyte Dist Width PT INR APTT PHA Creatinine Clear Sodium Potassium Chloride Carbon Dioxide Anion Gap BUN Creatinine Est GFR (CKD-EPI) Glucose Calcium Total Creatine Kinase 133 Troponin I High Sens 12.1 Urine Color Yellow Urine Appearance Clear Urine pH 6.0 Ur Specific [place] > 1.050 H Urine Protein Trace H [...] MPV Neut % (Auto) Lymph % (Auto) Baxter % (Auto) Eos % (Auto) Baso % (Auto) Nucleat RBC Rel Count Neut # (Auto) Lymph # (Auto) Baxter # (Auto) Eos # (Auto) Baso # (Auto) Monocyte Dist Width PT INR APTT PHA Creatinine Clear 84.38 Sodium 138 Potassium 3.2 L Chloride 105 Carbon Dioxide 23.8 Anion Gap 12.4 BUN 12 Creatinine 0.88 Est GFR (CKD-EPI) > 60.0 Glucose 110 H Calcium 9.3 Total Creatine Kinase Troponin I High Sens Urine Color Urine Appearance Urine pH Ur Specific [place] Urine Protein Urine Glucose (UA) Urine Ketones [...] complexity that cannot be best managed at [facility] level of care and requires at least 3 times weekly encounters with manager intranet for medical management and for plan of care review / changes. Plan: I completed a substantive portion of this encounter, the medical decision makingportion of this note in its entirety, including Allied health note review, nursing note review, qm consultant note review, discussion with nursing and case management, and more than 50% of my time was spent on counseling and coordination of care, time spent 65 minutes Patient was personally seen by me, Dr. Sen, on the day of encounter, reviewed the history and the relevant portions of the chart, including current orders, allied health and qm consultant notes, labs/imaging and performed garner elements of exam and I formulated the plan of care and facilitated the medical decision making. Documented By: Jose Martin Sen MD 10/31/22 1139 Signed By: <Electronically signed by Jose Martin Sen MD> 10/31/22 1443 [facility] Work Phone: 1([phone]) 771-974609-05-2023 Consult note Author Jose David Aponte [facility] October 31, 2022 12:34pm Note Date/Time October 31, 2022 11:23am [facility] [address] [place] [address] Neurology Consult Note Signed Patient: Viraj Doherty MR#: [id number] : 1955 Acct:[id number] Age/Sex: 67 / M Adm Date: 3 Loc: Room: [address] [place] [address] Type: ADM IN Attending Dr: Davey Harding MD Copies to: DO Davey Abbott MD Douglas M Hoy, MD~ HPI Consult Date: 10/31/22 Pharmaceutical Analyst: Jose David Aponte DO [facility] Medical History (Updated 10/30/22 @ 21:57 by [...] atrophy and chronic small vessel ischemic changes. [facility] preliminary report completed 10/30/2022 at 7:34 PM [...] incoordinated. Hiswife said he was admitted to [facility] about 2 years ago with severe hypertension [...] is perforating branches of the distalmost left WOOL BUYER. Etiology is small vessel disease caused bysevere [...] signed by Jose David Aponte DO> 10/31/22 1237 [facility] Work Phone: [phone]) 335-641309-05-2023 Progress note Author Davey Harding [facility] October 31, 2022 12:34pm Note Date/Time October 31, 2022 11:45am [facility] [address] [place] [address] Hospitalist Progress Note Signed Patient: Viraj Doherty MR#: [id number] : 1955 Acct:[id number] Age/Sex: 67 / M Adm Date: 3 Loc: Room: [address] [place] [address] Type: ADM IN Attending Dr: Davey Harding [...] of care and confirmed it with the resident/student/MAINTENANCE INSTRUCTOR. Patient resting in chair. Does not [...] occlusions which were discussed with neurology in [place]. Will continue asa/plavix/statin - MRI ordered, echo [...] signed by DO FLOYD Bear> 10/31/22 1145 [facility] Work Phone: [phone]) 241-144509-05-2023 History and physical note Author John Garcia [facility] October 30, 2022 10:00pm Note Date/Time October 30, 2022 10:00pm [facility] [address] [place] [address] Hospitalist H&P Signed Patient: Viraj Doherty MR#: [id number] : 1955 Acct:[id number] Age/Sex: 67 / M Adm Date: 3 Loc: Room: [address] [place] [address] Type: ADM IN Attending Dr: John Garcia DO Copies to: MD John Millan DO~ HPI DATE OF EXAMINATION: 10/30/22 CHIEF COMPLAINT: slurred speech HISTORY OF PRESENT ILLNESS: 67 y/o M with PMHx of HTN, hx of CVA who presents with complaint of slurred speech which started last night. Pt's states that he was admitted in [place] about 2 years ago with uncontrolled HTN [...] negative unless noted below or in HPI [facility] Medical History (Updated 10/30/22 @ 21:57 by [...] % (Auto) 31.1 % (.) 10/30/22 19:12 Baxter % (Auto) 9.0 % (.) 10/30/22 19:12 Eos % (Auto) 1.0 % (.) 10/30/22 19:12 Baso % (Auto) 0.8 % (.) 10/30/22 19:12 Nucleat RBC Rel Count 0.2 /100 WBC (0-0.5) 10/30/22 19:12 Neut # (Auto) 5.5 x10E3/uL (1.8-7.7) 10/30/22 19:12 Lymph # (Auto) 3.0 x10E3/uL (1.00-4.8) 10/30/22 19:12 Baxter # (Auto) 0.9 x10E3/uL (0.0-0.8) H 10/30/22 [...] occlusions which were discussed with neurology in [place]. Will continue asa/plavix/statin - MRI ordered - [...] signed by John Garcia DO> 10/30/22 2200 [facility] Work Phone: 1(756) 928-703207-12-2023 Evaluation + Plan note Diagnostic Tests Pending * Quantiferon-TB Plus (Client Incubated) 09/06/22 [facility]07-13-2022 Evaluation + Plan note Diagnostic Tests Pending * Quantiferon-TB Plus (Client Incubated) [facility]/07[facility]21 [facility] Davey Harding [facility] November 02, 2022 1:45pm Note Date/Time November 02, 2022 1:45pm [facility] [address] [place] [address] Discharge Summary Signed Patient: Viraj Doherty MR#: [id number] : 1955 Acct:[id number] Age/Sex: 67 / M Adm Date: 3 Loc: Room: [address] [place] [address]: Davey Harding MD Copies to: [...] occlusions in the M1 and M2 segments. [place] stroke [place] recommended conservative management with dual antiplatelets and [...] % (Auto) 71.4, Lymph % (Auto) 18.5, Baxter % (Auto) 9.2, Eos % (Auto) 0.1, Baso % (Auto) 0.8, Nucleat RBC Rel Count 0.2, Neut # (Auto) 10.2 H, Lymph # (Auto) 2.6, Baxter # (Auto) 1.3 H, Eos # (Auto) 0.0, Baso # (Auto) 0.1 Exam Physical Exam Vital Signs: Temp Pulse Resp BP Pulse Ox O2 Del Method 98.4 F 83 16 142/72 H 97 Room Air 11/02/22 12:29 11/02/22 12:29 11/02/22 12:29 11/02/22 12:29 11/02/22 12:29 11/02/22 12:29 Discharge Plan Discharge Plan Patient Disposition: Rehab [facility] Activity: No Activity Restriction Diet: Diabetic and Low-Sodium Additional Instructions: [facility] will call you with a follow up with a neurovascular doctor. You are schedule with [facility] on November 30 at 3:30pm at [address] [facility] room [address] Mike. Rehab [...] 81 mg PO DAILY Qty: 0 0RF wlershefjp-qvhpzfpli-qswaakbqp 10-320-25 mg tablet 1 tab PO DAILY Qty: 30 0RF potassium chloride 10 mEq capsule, extended release 10 meq PO DAILY Qty: 30 0RF Follow Up: [facility] [Outside] (Please call to schedule a follow up appointment with Neurology upon discharge from Rehab.) Marilyn Patrick MD [Primary Care Provider] - (Please call to schedule a follow up appointment with PCP upon discharge from Rehab.) Documented By: Davey Harding MD 11/02/22 1341 Signed By: <Electronically signed by Davey Harding MD> 11/02/22 1345 [facility] Work Phone: Discharge summary Author Jose Martin Sen [facility] November 15, 2022 6:11pm Note Date/Time November 15, 2022 12:04pm [facility] [address] [place] [address] Discharge Summary Signed Patient: Viraj Doehrty MR#: [id number] : 1955 Acct:[id number] Age/Sex: 67 / M Adm Date: 3 Loc: Room: 3I7290-[address]: Jose Martin Sen MD Copies [...] Case was discussed between ER physician and [place] interventional radiology who requested the patient stay [...] Outpatient Physical, Occupational, and Speech Therapy at [facility] (Address: [address] [place], [place] [address], [place], [place]/ ). The order for this has [...] mg subcut Q14D Qty: 0 0RF Continued xjojbsuube-umuvlevqc-fforvbhys 10-320-25 mg tablet 1 tab PO DAILY [...] - 11/30/22 3:30 pm [facility] [Outside] - 12/26/22 9:00 am (-Neurology.) Marilyn Patrick MD [Primary Care Provider] - 11/20/22 4:15 pm (-PCP. Take insurance card with you.) Jose Martin Sen MD [Active Staff] - (-Rehab Physician. Follow up if/as needed.) Documented By: Janice Altamirano APRN 11/15/22 1 157 Signed By: <Electronically signed by JASMIN Altamirano> 11/15/22 1204 <Electronically signed by Jose Martin Sen MD> 11/15/22 1811 [facility] Work Phone: Evaluation note* Diagnosis Onset Date Resolution Status Acute CVA (cerebrovascular accident) acute Hypertensive urgency acute [facility] Work Phone: Evaluation note* Diagnosis Onset Date Resolution Status Acute CVA (cerebrovascular accident) acute Cerebrovascular accident (CVA) of left thalamus acute Hyperlipidemia acute Hypertensive urgency acute Intracranial atherosclerosis acute Nonadherence to medication a cute Oropharyngeal dysphagia acut e Right hemiplegia acute [facility] Work Phone: evaluation note* Diagnosis Onset [...] Right hemiplegia acute Tobacco abuse disorder acute [facility] Work Phone: evaluation note* Diagnosis Onset [...] acut e Right hemiplegia acute Seizure acute [facility] Work Phone: evaluation note* Diagnosis Onset [...] Right-sided sensory deficit present acute Seizure acute [facility] Work Phone: Evaluation note* Diagnosis 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 (CMS/HCC)- Primary Encounter for medication monitoring Encounter for therapeutic drug monitoring Intracranial atherosclerosis Cerebral atherosclerosis Elevated hemoglobin A1c Other abnormal blood chemistry Seizure (CMS/HCC) Other convulsions documented in this encounter [facility] and [facility] Author John Garcia [facility] October 30, 2022 10:00pm Note Date/Time October 30, 2022 10:00pm [facility] [address] [place] [address] Hospitalist H&P Signed Patient: Viraj Doherty MR#: [id number] : 1955 Acct:[id number] Age/Sex: 67 / M Adm Date: 3 Loc: Room: [address] [place] [address] Type: ADM IN Attending Dr: John Garcia DO Copies to: MD John Millan DO~ HPI DATE OF EXAMINATION: 10/30/22 CHIEF COMPLAINT: slurred speech HISTORY OF PRESENT ILLNESS: 67 y/o M with PMHx of HTN, hx of CVA who presents with complaint of slurred speech which started last night. Pt's states that he was admitted in [place] about 2 years ago with uncontrolled HTN [...] negative unless noted below or in HPI [facility] Medical History (Updated 10/30/22 @ 21:57 by [...] % (Auto) 31.1 % (.) 10/30/22 19:12 Baxter % (Auto) 9.0 % (.) 10/30/22 19:12 Eos % (Auto) 1.0 % (.) 10/30/22 19:12 Baso % (Auto) 0.8 % (.) 10/30/22 19:12 Nucleat RBC Rel Count 0.2 /100 WBC (0-0.5) 10/30/22 19:12 Neut # (Auto) 5.5 x10E3/uL (1.8-7.7) 10/30/22 19:12 Lymph # (Auto) 3.0 x10E3/uL (1.00-4.8) 10/30/22 19:12 Baxter # (Auto) 0.9 x10E3/uL (0.0-0.8) H 10/30/22 [...] occlusions which were discussed with neurology in [place]. Will continue asa/plavix/statin - MRI ordered - [...] signed by John Garcia DO> 10/30/22 2200 [facility] Work Phone: Hospital course Narrative No data available for this section [facility] No data available for this section [facility] Discharge instructions Additional Instructions [facility] will call you with a follow up with a neurovascular doctor. You are schedule with [facility] on November 30 at 3:30pm at [address] [facility] [address] Mike. Rehab to manage: - PT/OT/ST to eval and treat - Please follow previous Speech therapy recommendations - Monitor VS routine - Dx. HTN - Neuro assessments - Dx. CVA - Routine skin assessments/care -- Every 3 days - Mepilex border foam to coccyx for added protection.[facility] Work Phone: Hospital Discharge instructions Additional [...] Outpatient Physical, Occupational, and Speech Therapy at [facility] (Address: [address] [place] [address] , [place], [place]/ ). The order for this has [...] office to inform them prior to your appointment.[facility] Work Phone: Hospital Discharge instructions Additional Instructions REHAB TO MANAGE: PT/OT to eval and treat Monitor VS per protocol Monitor Neuro. assessment--CVA Maintain seizure precautions Care to be managed [facility] Work Phone: Hospital Discharge instructions Additional Instructions -Diet: low fat, low cholesterol. -Ambulate as tolerated. No driving unless cleared by physician, may ride in car. You will have Outpatient Therapy at [facility] ([phone] ext. [phone]). The order for this has been sent [...] office to inform them prior to your appointment.[facility] Work Phone: Progress note No data available for this section [facility] Summary Purpose Family History No Family [...] section and content) DATE CREATED AUTHOR 06/11/2018 [facility] DATE CREATED AUTHOR AUTHOR'S ORGANIZ ATION 10/23/2018 [facility] DATE CREATED AUTHOR AUTHOR'S ORGANIZ ATION 12/27/2022 [facility] DATE CREATED AUTHOR AUTHOR'S ORGANIZ ATION 09/15/2023 [facility] DATE CREATED AUTHOR AUTHOR'S ORGANIZ ATION 09/17/2023 [facility] DATE CREATED AUTHOR AUTHOR'S ORGANIZ ATION 12/14/2023 [facility] Care Team (unrecognized sect ion and content) Team Status: Active Member Role Status Dates Marilyn Patrick MD Primary Care Provider Active Team Status: Inactive Member Role Status Dates Nolebrto Hernandez MD Emergency Provider Active Marilyn Patrick [...] Sen MD Admit Provider, Attending Provider A siomara Carlisle , DARON Other Provider Active Aggie Martines , DARON Other Provider Active Cayla Brandon , DARON Other Provider Active Yoli Mckeon , DARON Other Provider Active Kindra Benitez , DARON Other Provider Active Charlotte Gupta , DARON Other Provider Active Nu Nur MD Other Provider Active Yennifer Miller APRN Other Provider Active Stephanie Thomas DO Other [...] Fidelia Hernández MD Other Provider Active Kevin Adrina , DO Other Provider Active Ton Wilkinson MD Other Provider Active Deangelo Jeong MD Other Provider Active Rhonda Addison , MAINTENANCE INSTRUCTOR-C Other Provider Active Franklyn Mariano MD Other Provider Active Foster Patterson MD Other Provider Active Axel Wolfe MD Other Provider Active Obey Dawn MD Other Provider Active Maty Giles , DO Other Provider Active Hilario Bojorquez , DO Other Provider Active Garrett Kim , DO Other Provider Active Aziza Walker , REGISTERED RADIOGRAPHER Other Provider Active Alex Weems , DO Other Provider Active Quynh Galvan MD Other Provider Active Linh Hernandez , REGISTERED RADIOGRAPHER Other Provider Active Sara Osorio , REGISTERED RADIOGRAPHER Other Provider Active Tamara Loco MD Other Provider Active Guzman Garcia MD Other Provider Active Estephania Lepe , REGISTERED RADIOGRAPHER Other Provider Active Destiny Quinteros RN Other Provider Active Team Status: Active Member Role Status Terrell Patrick MD Primary Care Provider Active Jose Martin Sen MD Attending Provider Active Team Status: Inactive Member Role Status Dates Marilyn Patrick MD Primary Care Provider Active Ton Wilkinson MD Admit Provider Active Marie Nicholas Other Provider Active Shannan Bergeron , DO Other Provider Active Agnus Block MD Other Provider Active Leodan Younger , DO Other Provider Active Joanna Decker , ANP-BC Other Provider Active Jose David Aponte , DO Other Provider Active Johana Mayers , REGISTERED RADIOGRAPHER Other Provider Active Misti Joel , MAINTENANCE INSTRUCTOR-C Other Provider Active Ivon Yoo , REGISTERED RADIOGRAPHER-WELT STITCHER-C Other Provider Active Davey Harding MD Attending Provider Active Santosh Rivera MD Other Provider Active Team Status: Inactive Member Role Status Terrell Patrick MD Primary Care Provider Active Jose Martin Sen MD Admit Provider, Attending Provider A ctive Jodi Carlisle , DARON Other Provider Active Aggie Martines , RN Other Provider Active Cayla Brandon , RN Other Provider Active Yoli Mckeon , DARON Other Provider Active Kindra Benitez , DARON Other Provider Active Charlotte Gupta , DARON Other Provider Active Nu Nur MD Other Provider Active Yennifer Miller , REGISTERED RADIOGRAPHER Other Provider Active Stephanie Thomas , DO Other Provider Active Pasquale Gillespie MD Other Provider Active Rohan Levy , DO Other Provider Active Davey Harding MD Other Provider Active Mindi Juan MD Other Provider Active Anuradha Parmar , REGISTERED RADIOGRAPHER Other Provider Active Ryan Palacio MD Other Provider Active Herbert May MD Other Provider Active Kaushal Mata MD Other Provider Active Fidelia Hernández MD Other Provider Active Kevin Adrian , DO Other Provider Active Ton Wilkinson MD Other Provider Active Deangelo Jeong MD Other Provider Active Rhonda Addison , MAINTENANCE INSTRUCTOR-C Other Provider Active Franklyn Mariano MD Other Provider Active Foster Patterson MD Other Provider Active Axel Wolfe MD Other Provider Active Obey Dawn MD Other Provider Active Maty Giles , DO Other Provider Active Hilario Bojorquez , DO Other Provider Active Garrett Kim , DO Other Provider Active Aziza Walker , REGISTERED RADIOGRAPHER Other Provider Active Alex eWems , DO Other Provider Active Quynh Galvan MD Other Provider Active Linh Hernandez , REGISTERED RADIOGRAPHER Other Provider Active Sara Osorio , REGISTERED RADIOGRAPHER Other Provider Active Tamara Loco MD Other Provider Active Guzman Garcia MD Other Provider Active Estephania Lepe REGISTERED RADIOGRAPHER Other Provider Active Destiny Quinteros , DARON Other Provider Active Team Status: Inactive Member Role Status Dates Marilyn Patrick MD Primary Care Provider Active Jose Martin Sen MD Attending Provider Active Goals (unrecognized section and content) Goals may be documented in a n alternate section Reason for Visit (unrecogniz ed section and content) Reason Comments Follow-up FOR RECORDS PERTAINING TO PATIENTS WHO ARE [...] BE BASED ON THE PRIMARY CLINICAL RECORDS. [facility] [employer] [facility]. provides no warranty or guarantee of the accuracy or completeness of information in this document.
[2023-12-17 11:10] LABS: Estimated Average Glucose 123 mg/dL; Glycohemoglobin A1C 5.9 % (4.5-6.2)
[2023-12-17 11:39] LABS: Alanine Aminotransferase 33 U/L (16-63); Albumin Level 3.9 g/dL (3.4-5.0); Alkaline Phosphatase 81 U/L (46-116); Aspartate Amino Transferase 16 U/L (15-37); Bilirubin Direct 0.1 mg/dL (0.0-0.2); Bilirubin Total 0.6 mg/dL (0.2-1.0); Chol HDL Ratio 6.1; Cholesterol 224 mg/dL (<=200); Globulin 3.9 g/dL; HDL Cholesterol 37 mg/dL (40-60); Total Protein 7.8 g/dL (6.4-8.2); Triglycerides 129 mg/dL (<=150); VLDL CHOLESTEROL 25.8 mg/dL
== END 2023-12-17 10:22 | disposition home or self-care (01) ==
LOC: LAB 10:22
PROVIDERS: PCP Family Medicine; Visit Provider Nurse Practitioner Family
DX: Z51.81 Encounter for therapeutic drug level monitoring (principal); R73.09 Other abnormal glucose
CPT/HCPCS: 36415; 80061; 80076; 83036

== ENCOUNTER 2024-02-21 12:23 | Outpatient (OUT) | payer MEDICARE, SELFPAY ==
--- OUTSIDE RECORDS SUMMARY | 2024-02-21 12:33 | XMS_ITS | CCD ---
Author Organization [facility] Care Team Providers Care Word Processing Specialist Name Role Phone PHYSICIAN, DEFAULT Admitting Unavailable [...] Care Provider DO John Garcia Admit Provider DO John Garcia Attending Provider MD Davey Harding Attending Provider [phone] DO Jose David Aponte Other Provider MD [...] Provider MD Deangelo Jeong Other Provider Cyn, REPAIR CAMERAMAN-C Rhonda De La Vega Other Provider [phone] [...] Garcia Other Provider JASMIN Lepe Other Provider [phone] DARON Quinteros Other Provider Unavailable MD Ton Wilkinson Admit Provider Marie Nicholas Other Provider Unavailable DO Shannan Bergeron Other Provider MD Angus Block Other Provider [phone] DO Leodan Younger Other Provider Jeronimo ANP- Joanna Other Provider Talib DRUM TESTERLianet Sutton Other Provider VICTOR MANUEL Joel-C Misti Kuo Other Provider JASMIN Yoo-INFORMATION SYSTEMS ANALYST-C Ivon Ceja Other Provider MD Santosh Rivera Other Provider JASMIN Parmar [...] Patrick Referring Unavailable Unavailable Primary Care Provider UnavailMarilyn Galarza MD Primary Care Provider [phone] IVON YOO Attending Unavailable SHANNON JORDAN Attending Unavailable IVON YOO Attending Unavailable IVON YOO Referring Unavailable Allergies Allergy Classification Reported Allergen(s) Allergy Type Date of Onset Reaction(s) Facility (1 source) No Known Medication Allergies; Translations: [No Known Medication Allergies] Propensity to adverse reactions (disorder) [facility] Repository Medications Current Medications Medication Drug Class(es) Dates Sig (Normalized) Sig (Original) acetaminophen 500 mg oral tablet (2 sources) Start: 12-19-2022 take 500 mg by mouth every four hours Acetaminophen Active 500 MG PO Q4H 100 December 19, 2022 12:00am Humira (10 sources) Tumor Necrosis Factor Kena Start: 05-04-2023 [...] aspirin 81 mg delayed release oral tablet (13 sources) Platelet Aggregation Inhibitor, Nonsteroidal Anti-inflammatory Drug Start: 05-04-2023 take 1 tablet by mouth once daily aspirin 81 mg Oral EC Tab 81 mg = 1 tab(s), Oral, Daily, Refills(s) 0 Start Date: 05/04/23 Status: Ordered Start: 11-02-2022 End: 12-19-2022 take 81 mg by mouth once daily Aspirin Active 81 MG PO Daily December 19, 2022 12:00am atorvastatin 80 mg oral tablet (13 sources) HMG-CoA Reductase Inhibitor Start: 05-04-2023 take [...] Status: Ordered clopidogrel 75 mg oral tablet (13 sources) P2Y12 Platelet Inhibitor Start: 05-04-2023 take 1 tablet by mouth once daily clopidogrel (Plavix) 75 MG tablet Take 75 mg by mouth Daily 07/13/2023 Active Start: 11-02-2022 End: 12-19-2022 take 75 mg by mouth once daily Clopidogrel Active 75 M G PO Daily December 19, 2022 12:00am folic acid 0.4 mg / vitamin b12 1 mg sublingual tablet (5 sources) Vitamin B12 Start: 03-30-2023 take 100-5000 ug under the tongue once daily Cobalamin Combinations (B-12) 100-5000 MCG sublingual tablet Take 1 tablet by mouth Daily 03/30/2023 Active levETIRAcetam 500 mg oral tablet (11 sources) Start: 06-21-2023 take 1 tablet by [...] Twice daily 60 December 19, 2022 12:00am Lisinopril (5 sources) Angiotensin Converting Enzyme Inhibitor LISINOPRIL PO [...] Q48H 15 December 19, 2022 12:00am valsartan 160 mg oral tablet (8 sources) Angiotensin 2 Receptor Kena Start: 06-14-2023 [...] Amlodipine-Valsa rtan-Hcthiazid Discontinued 1 TAB PO Daily 30 November 14, 2022 9:21am December 19, 2022 [...] Onset: 06-13-19 Late effects of cerebrovascular disease (20 sources) Hemiparesis as late effect of cerebrovascular [...] 12-11-1911-02-2022 Episodic Other inflammatory condition of skin (5 sources) Psoriasis vulgaris; Translations: [Psoriasis vulgaris] Onset: [...] medication regimen for other reason] Onset: 10-31-19 23 Past or Other Problems Problem Classification Problem [...] Test Name Value Interpretation Reference Range Facility [facility] HEMOGLOBIN A1Con 024 Glucose [Mass/Vol] 123 mg/dL [facility] HbA1c (Bld) [Mass fraction] 5.9 % 4.5 - 6.2 % [facility] Comment on above: ADA RECOMMENDED LIMI T 4.0 - 6.0 ADA THERAPEUTIC TARGET < 7.0 ACTION SUGGESTED > 7.0 [facility] Quantiferon-TB Plus (Client Incubated)on 09-14-2023 Gamma interferon background IA Qn (Bld) 0.07 International_Unit/mL Invalid Interpretation Code [facility] Comment on above: Performed By: #### 1 [id number] #### [facility] [address] [place] [address] M. tuberculosis stim IFN-g by CD4+ CD8+ T-cells corrected for background Qn (Bld) 0.05 International_Unit/mL Invalid Interpretation Code [facility] Comment on above: Performed By: #### 1 [id number] #### [facility] [address] [place] [address] M. tuberculosis stim IFN-g by CD4+ T-cells corrected for background Qn (Bld) 0.07 International_Unit/mL Invalid Interpretation Code [facility] Comment on above: Performed By: #### 1 [id number] #### [facility] [address] [place] [address] M. tuberculosis stim IFN-g Ql (Bld) [Interp] Negative Invalid Interpretation Code Negative [facility] Comment on above: Result Comment: No r [...] interferon gamma. Chemiluminescence immunoassay methodology Performed at: [facility] [id number] PhD Rex Shirley Performed By: #### 1 [id number] #### [facility] [address] [id number] Mitogen stimulated gamma interferon corrected for background Qn (Bld) >10.00 Invalid Interpretation Code [facility] Comment on above: Performed By: #### 1 [id number] #### [facility] [address] [id number] Service comment (Unsp spec) [Interp] Comment Invalid Interpretation Code [facility] Comment on above: Result Comment: Wilmer tiFERON-TB [...] for the test. Performed By: #### 1 [id number] #### [facility] [address] [place] [address] Lab Reportson 05-07-2023 Lab Reports [id number] Normal [facility] Physician Referralon 024 Physician Referral [id number] Normal [facility] Basic Metabolic Panelon - Anion gap [Moles/Vol] 9.8 mmol/L Normal 6.0-15.0 [facility] Comment on above: Performed By: #### F ER, [id number], FE and TIBC, MG #### [facility] [address] Calcium [Mass/Vol] 8.7 mg/dL Normal 8.6-10.3 [facility] Comment on above: Performed By: #### F ER, [id number], FE and TIBC, MG #### [facility] [address] Chloride [Moles/Vol] 111 mmol/L High 98-107 [facility] Comment on above: Performed By: #### F ER, [id number], FE and TIBC, MG #### [address] CO2 [Moles/Vol] 25.7 mmol/L Normal 21.0-31.0 [facility] Comment on above: Performed By: #### F ER, [id number], FE and TIBC, MG #### [address] Creatinine [Mass/Vol] 0.87 mg/dL Normal 0.70-1.30 [facility] Comment on above: Performed By: #### F ER, [id number], FE and TIBC, MG #### [address] Creatinine Clr Calc Pharmacy 79.00 [facility] Comment on above: Result Comment: PERF ORMED BY: [place] [address] PATHOLOGIST IMPREGNATOR TERESA PATTERSON M.D. Performed By: #### F ER, [id number], FE and TIBC, MG #### [place] [address] [place] GFR/1.73 sq M.predicted MDRD (S/P/Bld) [Vol rate/Area] mL/min/{1.73_m2} [facility] Comment on above: Performed By: #### F ER, [id number], FE and TIBC, MG #### [facility] [address] Glucose [Mass/Vol] 95 mg/dL Normal 70-100 [facility] Comment on above: Result Comment: [facility] Glucose Reference Range is dependent on time and content of last meal. Glucose of more than 200 mg/dL in a nonstressed, ambulatory subject supports the diagnosis of Diabetes Mellitus. ADA recommended reference range Performed By: #### F ER, [id number], FE and TIBC, MG #### [facility] [address] Potassium [Moles/Vol] 3.5 mmol/L Normal 3.5-5.1 [facility] Comment on above: Performed By: #### F ER, [id number], FE and TIBC, MG #### [address] Sodium [Moles/Vol] 143 mmol/L Normal 136-145 [facility] Comment on above: Performed By: #### F ER, [id number], FE and TIBC, MG #### [address] Urea nitrogen [Mass/Vol] 16 mg/dL Normal 7-25 [facility] Comment on above: Performed By: #### F ER, [id number], FE and TIBC, MG #### [address] Basophils Auto (Bld) [#/Vol] Ordered By: Jose Martin Sen on 12-19-2022 Basophils (Bld) [#/Vol] 0.1 10*3/uL 0.0-0.2 [facility] Basophils/100 WBC Auto (Bld) Ordered By: Jose Martin Sen on 12-19-2022 Basophils/100 WBC (Bld) 1.3 % . [facility] Calcium [Mass/volume] in Ser um or PlasmaOrdered By: Jose Martin Sen on 12-19-2022 Calcium [Mass/Vol] 8.7 mg/dL 8.6-10.3 [facility] Carbon dioxide, total [Moles /volume] in Serum or PlasmaOrdered By: Jose Martin Sen on 12-19-2022 CO2 [Moles/Vol] 25.7 mmol/L 21.0-31.0 [facility] Chloride [Moles/volume] in S shani or PlasmaOrdered By: Jose Martin Sen on 12-19-2022 Chloride [Moles/Vol] 111 mmol/L 98-107 [facility] Complete Blood Count Auto Di ffon 12-19-2022 Basophils (Bld) [#/Vol] 0.1 10*3/uL Normal 0.0-0.2 [facility] Comment on above: Result Comment: PERF ORMED BY: [place] [address] PATHOLOGIST IMPREGNATOR TERESA PATTERSON M.D. Performed By: #### B MP, CBC #### [address] Basophils/100 WBC (Bld) 1.3 % Normal . [facility] Comment on above: Performed By: #### B MP, CBC #### [address] Eosinophils (Bld) [#/Vol] 0.1 10*3/uL Normal 0.0-0.45 [facility] Comment on above: Performed By: #### B MP, CBC #### [address] Eosinophils/100 WBC (Bld) 2.0 % Normal . [facility] Comment on above: Performed By: #### B MP, CBC #### [address] Erythrocyte distribution width (RBC) [Ratio] 14.1 % Normal 12.0-14.8 [facility] Comment on above: Performed By: #### B MP, CBC #### [address] Hematocrit (Bld) [Volume fraction] 22.7 % Low 38.8-50.0 [facility] Comment on above: Performed By: #### B MP, CBC #### [address] [place] [address] [place] Hemoglobin (Bld) [Mass/Vol] 8.1 g/dL Low 13.0-17.0 [facility] Comment on above: Performed By: #### B MP, CBC #### [facility] [address] Lymphocytes (Bld) [#/Vol] 2.1 10*3/uL Normal 1.00-4.8 [facility] Comment on above: Performed By: #### B MP, CBC #### [facility] [address] Lymphocytes/100 WBC (Bld) 33.2 % Normal . [facility] Comment on above: Performed By: #### B MP, CBC #### [address] MCH (RBC) [Entitic mass] 31.1 pg Normal 27.5-35.2 [facility] Comment on above: Performed By: #### B MP, CBC #### [address] MCV (RBC) [Entitic vol] 86.6 fL Normal 83.5-101 [facility] Comment on above: Performed By: #### B MP, CBC #### [address] Mean Corpuscular HGB Conc 35.9 g/dL High 32.5-35.6 [facility] Comment on above: Performed By: #### B MP, CBC #### [place] [address] [place] Monocytes (Bld) [#/Vol] 0.6 10*3/uL Normal 0.0-0.8 [facility] Comment on above: Performed By: #### B MP, CBC #### [address] Monocytes/100 WBC (Bld) 9.2 % Normal . [facility] Comment on above: Performed By: #### B MP, CBC #### [place] [address] [place] Neutrophils (Bld) [#/Vol] 3.4 10*3/uL Normal 1.8-7.7 [facility] Comment on above: Performed By: #### B MP, CBC #### [facility] [address] Neutrophils/100 WBC (Bld) 54.3 % Normal . [facility] Comment on above: Performed By: #### B MP, CBC #### [facility] [address] NRBC% 0.0 /100{WBC} Normal 0-0.5 [facility] Comment on above: Performed By: #### B MP, CBC #### [facility] [address] Platelet mean volume (Bld) [Entitic vol] 7.9 fL Normal 6.6-10.1 [facility] Comment on above: Performed By: #### B MP, CBC #### [address] Platelets (Bld) [#/Vol] 248 10*3/uL Normal 150-450 [facility] Comment on above: Performed By: #### B MP, CBC #### [address] RBC (Bld) [#/Vol] 2.62 10*6/uL Low 3.90-5.60 [facility] Comment on above: Performed By: #### B MP, CBC #### [address] WBC (Bld) [#/Vol] 6.3 10*3/uL Normal 4.1-10.5 [facility] Comment on above: Performed By: #### B MP, CBC #### [address] Creatinine [Mass/volume] in Serum or PlasmaOrdered By: Jose Martin Sen on 12-19-2022 Creatinine [Mass/Vol] 0.87 mg/dL 0.70-1.30 [facility] Eosinophils Auto (Bld) [#/Vo l]Ordered By: Jose Martin Sen on 12-19-2022 Eosinophils (Bld) [#/Vol] 0.1 10*3/uL 0.0-0.45 [facility] Eosinophils/100 WBC Auto (Bl d)Ordered By: Jose Martin Sen on 12-19-2022 Eosinophils/100 WBC (Bld) 2.0 % . [facility] Erythrocyte distribution wid th Auto (RBC) [Ratio]Ordered By: Jose Martin Sen on 12-19-2022 Erythrocyte distribution width (RBC) [Ratio] 14.1 % 12.0-14.8 [facility] Glucose [Mass/volume] in Ser um or PlasmaOrdered By: Jose Martin Sen on 12-19-2022 Glucose [Mass/Vol] 95 mg/dL 70-100 [facility] Comment on above: ADA recommended refe rence rangeRandom Glucose Reference Range is dependent on time and content of last meal. Glucose of more than 200 mg/dL in a nonstressed, ambulatory subject supports the diagnosis of Diabetes Mellitus. Hematocrit Auto (Bld) [Volum e fraction]Ordered By: Jose Martin Sen on 12-19-2022 Hematocrit (Bld) [Volume fraction] 22.7 % 38.8-50.0 [facility] Hemoglobin [Mass/volume] in BloodOrdered By: Jose Martin Sen on 12-19-2022 Hemoglobin (Bld) [Mass/Vol] 8.1 g/dL 13.0-17.0 [facility] Leukocytes [#/volume] correc khadra for nucleated erythrocytes in Blood by Automated counOrdered By: Jose Martin Sen on 12-19-2022 WBC corrected for nucl RBC Auto (Bld) [#/Vol] 6.3 10*3/uL 4.1-10.5 [facility] Lymphocytes Auto (Bld) [#/Vo l]Ordered By: Jose Martin Sen on 12-19-2022 Lymphocytes (Bld) [#/Vol] 2.1 10*3/uL 1.00-4.8 [facility] Lymphocytes/100 WBC Auto (Bl d)Ordered By: Jose Martin Sen on 12-19-2022 Lymphocytes/100 WBC (Bld) 33.2 % . [facility] MCH Auto (RBC) [Entitic mass ]Ordered By: Jose Martin Sen on 12-19-2022 MCH (RBC) [Entitic mass] 31.1 pg 27.5-35.2 [facility] MCHC Auto (RBC) [Mass/Vol]Or dered By: Jose Martin Sen on 12-19-2022 MCHC (RBC) [Mass/Vol] 35.9 g/dL 32.5-35.6 [facility] MCV Auto (RBC) [Entitic vol] Ordered By: Jose Martin Sen on 12-19-2022 MCV (RBC) [Entitic vol] 86.6 fL 83.5-101 [facility] Monocytes Auto (Bld) [#/Vol] Ordered By: Jose Martin Sen on 12-19-2022 Monocytes (Bld) [#/Vol] 0.6 10*3/uL 0.0-0.8 [facility] Monocytes/100 WBC Auto (Bld) Ordered By: Jose Martin Sen on 12-19-2022 Monocytes/100 WBC (Bld) 9.2 % . [facility] Neutrophils Auto (Bld) [#/Vo l]Ordered By: Jose Martin Sen on 12-19-2022 Neutrophils (Bld) [#/Vol] 3.4 10*3/uL 1.8-7.7 [facility] Neutrophils/100 WBC Auto (Bl d)Ordered By: Jose Martin Sen on 12-19-2022 Neutrophils/100 WBC (Bld) 54.3 % . [facility] No Panel InformationOrdered By: Jose Martin Sen on 12-19-2022 Estimated GFR (CKD-EPI) > 60.0 mL/Min [facility] Creatinine Clearance (Chem 79.00 [facility] Nucleated erythrocytes [Pres ence] in Blood by Automated countOrdered By: Jose Martin Sen on 12-19-2022 Nucleated RBC Auto Ql (Bld) 0.0 /100{WBC} 0-0.5 [facility] Platelet mean volume Auto (B ld) [Entitic vol]Ordered By: Jose Martin Sen on 12-19-2022 Platelet mean volume (Bld) [Entitic vol] 7.9 fL 6.6-10.1 [facility] Platelets Auto (Bld) [#/Vol] Ordered By: Jose Martin Sen on 12-19-2022 Platelets (Bld) [#/Vol] 248 10*3/uL 150-450 [facility] Potassium [Moles/volume] in Serum or PlasmaOrdered By: Jose Martin Sen on 12-19-2022 Potassium [Moles/Vol] 3.5 mmol/L 3.5-5.1 [facility] RBC Auto (Bld) [#/Vol]Ordere d By: Jose Martin Sen on 12-19-2022 RBC (Bld) [#/Vol] 2.62 10*6/uL 3.90-5.60 [facility] Serum or plasma anion gap de terminationOrdered By: Jose Martin Sen on 12-19-2022 Anion gap [Moles/Vol] 9.8 mmol/L 6.0-15.0 [facility] Sodium [Moles/volume] in Ser um or PlasmaOrdered By: Jose Martin Sen on 12-19-2022 Sodium [Moles/Vol] 143 mmol/L 136-145 [facility] Urea nitrogen [Mass/volume] in Serum or PlasmaOrdered By: Jose Martin Sen on 12-19-2022 Urea nitrogen [Mass/Vol] 16 mg/dL 7- [facility] WBC Auto (Bld) [#/Vol]Ordere d By: Jose Martin Sen on 12-19-2022 WBC (Bld) [#/Vol] 6.3 10*3/uL 4.1-10.5 [facility] Basic Metabolic Panelon 11-26 Anion gap [Moles/Vol] 11.5 mmol/L Normal 6.0-15.0 [facility] Comment on above: Performed By: #### B MP, CBC #### [facility] [address] [place] [address] [place] Calcium [Mass/Vol] 9.1 mg/dL Normal 8.6-10.3 [facility] Comment on above: Performed By: #### B MP, CBC #### [facility] [address] [place] [id number] [place] Chloride [Moles/Vol] 106 mmol/L Normal 98-107 [facility] Comment on above: Performed By: #### B MP, CBC #### [facility] [address] [place] [address] [place] CO2 [Moles/Vol] 28.7 mmol/L Normal 21.0-31.0 [facility] Comment on above: Performed By: #### B MP, CBC #### [facility] [address] [place] [address] [place] Creatinine [Mass/Vol] 1.12 mg/dL Normal 0.70-1.30 [facility] Comment on above: Performed By: #### B MP, CBC #### [facility] [address] [place] [address] [place] Creatinine Clr Calc Pharmacy 61.10 [facility] Comment on above: Result Comment: PERF ORMED BY: [place] [address] PATHOLOGIST IMPREGNATOR TERESA PATTERSON M.D. Performed By: #### B MP, CBC #### [facility] [address] [place] [address] [place] GFR/1.73 sq M.predicted MDRD (S/P/Bld) [Vol rate/Area] mL/min/{1.73_m2} [facility] Comment on above: Performed By: #### B MP, CBC #### [facility] [address] Glucose [Mass/Vol] 105 mg/dL High 70-100 [facility] Comment on above: Result Comment: [place] Glucose Reference Range is dependent on time and content of last meal. Glucose of more than 200 mg/dL in a nonstressed, ambulatory subject supports the diagnosis of Diabetes Mellitus. ADA recommended reference range Performed By: #### B MP, CBC #### [facility] [address] [place] [address] [place] Potassium [Moles/Vol] 3.2 mmol/L Low 3.5-5.1 [facility] Comment on above: Performed By: #### B MP, CBC #### [facility] [address] [place] [address] [place] Sodium [Moles/Vol] 143 mmol/L Normal 136-145 [facility] Comment on above: Performed By: #### B MP, CBC #### [facility] [address] Urea nitrogen [Mass/Vol] 25 mg/dL Normal 7-25 [facility] Comment on above: Performed By: #### B MP, CBC #### [facility] [address] Magnesiumon 12-14-2022 Magnesium [Mass/Vol] 2.0 mg/dL Normal 1.9-2.7 [facility] Comment on above: Result Comment: PERF ORMED BY: [place] [address] PATHOLOGIST IMPREGNATOR TERESA PATTERSON M.D. Performed By: #### B MP, CBC #### [address] Magnesium [Mass/volume] in S shani or PlasmaOrdered By: Janice Altamirano on 12-14-2022 Magnesium [Mass/Vol] 2.0 mg/dL 1.9-2.7 [facility] Potassiumon 12-14-2022 Potassium [Moles/Vol] 3.5 mmol/L Normal 3.5-5.1 [facility] Comment on above: Result Comment: PERF ORMED BY: [place] [address] PATHOLOGIST IMPREGNATOR TERESA PATTERSON M.D. Performed By: #### F ER, [id number], FE and TIBC, MG #### [facility] [address] [place], [place] [address] [facility] Alanine aminotransferase [En zymatic activity/volume] in Serum or PlasmaOrdered By: Santosh Rivera on 12-13-2022 ALT [Catalytic activity/Vol] 25 U/L [facility] Albumin [Mass/volume] in Ser um or Plasma by Bromocresol green (BCG) dye binding methoOrdered By: Santosh Rivera on 12-13-2022 Albumin BCG dye [Mass/Vol] 4.0 g/dL 3.5-5.7 [facility] Alkaline phosphatase [Enzyma tic activity/volume] in Serum or PlasmaOrdered By: Santosh Rivera on 12-13-2022 ALP [Catalytic activity/Vol] 72 U/L 34-104 [facility] Aspartate aminotransferase [ Enzymatic activity/volume] in Serum or PlasmaOrdered By: Snatosh Rivera on 12-13-2022 AST [Catalytic activity/Vol] 15 U/L 13-39 [facility] Bilirubin.total [Mass/volume ] in Serum or PlasmaOrdered By: Santosh Rivera on 12-13-2022 Bilirubin [Mass/Vol] 0.6 mg/dL 0.3-1.0 [facility] Complete Blood Count Auto Di ffon 12-13-2022 Basophils (Bld) [#/Vol] 0.1 10*3/uL Normal 0.0-0.2 [facility] Comment on above: Result Comment: PERF ORMED BY: [place] [address] PATHOLOGIST IMPREGNATOR TERESA PATTERSON M.D. Performed By: #### B MP, CBC #### [place] [address] [place] Basophils/100 WBC (Bld) 1.2 % Normal . [facility] Comment on above: Performed By: #### B MP, CBC #### [facility] [address] [place] [address] [place] Eosinophils (Bld) [#/Vol] 0.2 10*3/uL Normal 0.0-0.45 [facility] Comment on above: Performed By: #### B MP, CBC #### [facility] [address] [place] [address] [place] Eosinophils/100 WBC (Bld) 2.7 % Normal . [facility] Comment on above: Performed By: #### B MP, CBC #### [facility] [address] Erythrocyte distribution width (RBC) [Ratio] 14.5 % Normal 12.0-14.8 [facility] Comment on above: Performed By: #### B MP, CBC #### [facility] [address] Hematocrit (Bld) [Volume fraction] 25.4 % Low 38.8-50.0 [facility] Comment on above: Performed By: #### B MP, CBC #### [facility] [address] Hemoglobin (Bld) [Mass/Vol] 9.1 g/dL Low 13.0-17.0 [facility] Comment on above: Performed By: #### B MP, CBC #### [facility] [address] Lymphocytes (Bld) [#/Vol] 2.5 10*3/uL Normal 1.00-4.8 [facility] Comment on above: Performed By: #### B MP, CBC #### [facility] [address] Lymphocytes/100 WBC (Bld) 36.9 % Normal . [facility] Comment on above: Performed By: #### B MP, CBC #### [facility] [address] MCH (RBC) [Entitic mass] 31.5 pg Normal 27.5-35.2 [facility] Comment on above: Performed By: #### B MP, CBC #### [facility] [address] MCV (RBC) [Entitic vol] 87.7 fL Normal 83.5-101 [facility] Comment on above: Performed By: #### B MP, CBC #### [facility] [address] Mean Corpuscular HGB Conc 35.9 g/dL High 32.5-35.6 [facility] Comment on above: Performed By: #### B MP, CBC #### [facility] [address] Monocytes (Bld) [#/Vol] 0.7 10*3/uL Normal 0.0-0.8 [facility] Comment on above: Performed By: #### B MP, CBC #### [facility] [address] [place] [address] [place] Monocytes/100 WBC (Bld) 9.9 % Normal . [facility] Comment on above: Performed By: #### B MP, CBC #### [facility] [address] Neutrophils (Bld) [#/Vol] 3.3 10*3/uL Normal 1.8-7.7 [facility] Comment on above: Performed By: #### B MP, CBC #### [facility] [address] Neutrophils/100 WBC (Bld) 49.3 % Normal . [facility] Comment on above: Performed By: #### B MP, CBC #### [facility] [address] NRBC% 0.1 /100{WBC} Normal 0-0.5 [facility] Comment on above: Performed By: #### B MP, CBC #### [facility] [address] Platelet mean volume (Bld) [Entitic vol] 7.8 fL Normal 6.6-10.1 [facility] Comment on above: Performed By: #### B MP, CBC #### [facility] [address] [place] [address] [place] Platelets (Bld) [#/Vol] 257 10*3/uL Normal 150-450 [facility] Comment on above: Performed By: #### B MP, CBC #### [facility] [address] [place] [address] [place] RBC (Bld) [#/Vol] 2.90 10*6/uL Low 3.90-5.60 [facility] Comment on above: Performed By: #### B MP, CBC #### [facility] [address] [place] [address] [place] WBC (Bld) [#/Vol] 6.7 10*3/uL Normal 4.1-10.5 [facility] Comment on above: Performed By: #### B MP, CBC #### [facility] [address] Comprehensive Metabolic Pane nitza 12-13-2022 Albumin [Mass/Vol] 4.0 g/dL Normal 3.5-5.7 [facility] Comment on above: Performed By: #### B MP, CBC #### [facility] [address] [place] [id number] [facility] Albumin/Globulin [Mass ratio] 1.5 {ratio} Normal [facility] Comment on above: Performed By: #### B MP, CBC #### [facility] [address] ALP [Catalytic activity/Vol] 72 U/L Normal 34-104 [facility] Comment on above: Performed By: #### B MP, CBC #### [facility] [address] [place] [id number] [facility] ALT [Catalytic activity/Vol] 25 U/L Normal 7-52 [facility] Comment on above: Performed By: #### B MP, CBC #### [facility] [address] [place] [id number] [facility] Anion gap [Moles/Vol] 11.2 mmol/L Normal 6.0-15.0 [facility] Comment on above: Performed By: #### B MP, CBC #### [facility] [address] [place] [id number] [place] AST [Catalytic activity/Vol] 15 U/L Normal 13-39 [facility] Comment on above: Performed By: #### B MP, CBC #### [facility] [address] [place] [id number] [place] Bilirubin [Mass/Vol] 0.6 mg/dL Normal 0.3-1.0 [facility] Comment on above: Performed By: #### B MP, CBC #### [facility] [address] [place] [id number] [facility] Calcium [Mass/Vol] 9.0 mg/dL Normal 8.6-10.3 [facility] Comment on above: Performed By: #### B MP, CBC #### [facility] [address] [place] [address] [place] Chloride [Moles/Vol] 106 mmol/L Normal 98-107 [facility] Comment on above: Performed By: #### B MP, CBC #### [facility] [address] CO2 [Moles/Vol] 28.0 mmol/L Normal 21.0-31.0 [facility] Comment on above: Performed By: #### B MP, CBC #### [facility] [address] Creatinine [Mass/Vol] 1.18 mg/dL Normal 0.70-1.30 [facility] Comment on above: Performed By: #### B MP, CBC #### [address] Creatinine Clr Calc Pharmacy 58.00 [facility] Comment on above: Performed By: #### B MP, CBC #### [facility] [address] [place] [address] [place] GFR/1.73 sq M.predicted MDRD (S/P/Bld) [Vol rate/Area] mL/min/{1.73_m2} [facility] Comment on above: Performed By: #### B MP, CBC #### [address] Globulin (S) [Mass/Vol] 2.7 g/dL [facility] Comment on above: Performed By: #### B MP, CBC #### [place] [address] [place] Glucose [Mass/Vol] 85 mg/dL Normal 70-100 [facility] Comment on above: Result Comment: [place] Glucose Reference Range is dependent on time and content of last meal. Glucose of more than 200 mg/dL in a nonstressed, ambulatory subject supports the diagnosis of Diabetes Mellitus. ADA recommended reference range Performed By: #### B MP, CBC #### [place] [address] [place] Potassium [Moles/Vol] 3.2 mmol/L Low 3.5-5.1 [facility] Comment on above: Performed By: #### B MP, CBC #### [facility] [address] Protein [Mass/Vol] 6.7 g/dL Normal 6.4-8.9 [facility] Comment on above: Performed By: #### B MP, CBC #### [facility] [address] Sodium [Moles/Vol] 142 mmol/L Normal 136-145 [facility] Comment on above: Performed By: #### B MP, CBC #### [facility] [address] [place] [address] Urea nitrogen [Mass/Vol] 20 mg/dL Normal 7-25 [facility] Comment on above: Performed By: #### B MP, CBC #### [facility] [address] [place] [address] Globulin Calc (S) [Mass/Vol] Ordered By: Santosh Rivera on 12-13-2022 Globulin (S) [Mass/Vol] 2.7 g/dL [facility] Prealbuminon 12-13-2022 Prealbumin [Mass/Vol] 26.1 mg/dL Normal 17.0-34.0 [facility] Comment on above: Result Comment: PERF ORMED BY: [place] [address] PATHOLOGIST IMPREGNATOR TERESA PATTERSON M.D. Performed By: #### B MP, CBC #### [address] Prealbumin [Mass/volume] in Serum or PlasmaOrdered By: Santosh Rivera on 12-13-2022 Prealbumin [Mass/Vol] 26.1 mg/dL 17.0-34.0 [facility] Protein [Mass/volume] in Ser um or PlasmaOrdered By: Santosh Rivera on 12-13-2022 Protein [Mass/Vol] 6.7 g/dL 6.4-8.9 [facility] Serum or plasma albumin/glob ulin mass ratioOrdered By: Santosh Rivera on 12-13-2022 Albumin/Globulin [Mass ratio] 1.5 {ratio} [facility] Glucose Glucometer (BldC) [M ass/Vol]Ordered By: Jose Martin Sen on 12-12-2022 Glucose [Mass/Vol] 146 mg/dL [facility] Comment on above: Random Glucose Refer ence Range is dependent on time and content of last meal. Glucose of more than 200 mg/dL in a nonstressed, ambulatory subject supports the diagnosis of Diabetes Mellitus. Glucose Poct Glucometerson 1 Glucose [Mass/Vol] 146 mg/dL Normal [facility] Comment on above: Result Comment: [place] om Glucose Reference Range is dependent on time and content of last meal. Glucose of more than 200 mg/dL in a nonstressed, ambulatory subject supports the diagnosis of Diabetes Mellitus. PERFORMED BY: [place] [address] PATHOLOGIST IMPREGNATOR TERESA PATTERSON M.D. Performed By: #### F ER, [id number], FE and TIBC, MG #### [facility] [address] [place] [address] Basic Metabolic Panelon 11-26 Anion gap [Moles/Vol] 10.1 mmol/L Normal 6.0-15.0 [facility] Comment on above: Performed By: #### F ER, [id number], FE and TIBC, MG #### [address] Calcium [Mass/Vol] 9.2 mg/dL Normal 8.6-10.3 [facility] Comment on above: Performed By: #### F ER, [id number], FE and TIBC, MG #### [facility] [address] [place] [address] [place] Chloride [Moles/Vol] 105 mmol/L Normal 98-107 [facility] Comment on above: Performed By: #### F ER, [id number], FE and TIBC, MG #### [facility] [address] [place] [address] [place] CO2 [Moles/Vol] 30.4 mmol/L Normal 21.0-31.0 [facility] Comment on above: Performed By: #### F ER, [id number], FE and TIBC, MG #### [facility] [address] Creatinine [Mass/Vol] 1.06 mg/dL Normal 0.70-1.30 [facility] Comment on above: Performed By: #### F ER, [id number], FE and TIBC, MG #### [facility] [address] [place] [address] [place] Creatinine Clr Calc Pharmacy 66.33 [facility] Comment on above: Result Comment: PERF ORMED BY: [place] [address] PATHOLOGIST IMPREGNATOR TERESA PATTERSON M.D. Performed By: #### F ER, [id number], FE and TIBC, MG #### [facility] [address] [place] [address] [place] GFR/1.73 sq M.predicted MDRD (S/P/Bld) [Vol rate/Area] mL/min/{1.73_m2} [facility] Comment on above: Performed By: #### F ER, [id number], FE and TIBC, MG #### [facility] [address] Glucose [Mass/Vol] 99 mg/dL Normal 70-100 [facility] Comment on above: Result Comment: [place] om Glucose Reference Range is dependent on time and content of last meal. Glucose of more than 200 mg/dL in a nonstressed, ambulatory subject supports the diagnosis of Diabetes Mellitus. ADA recommended reference range Performed By: #### F ER, [id number], FE and TIBC, MG #### [facility] [address] Potassium [Moles/Vol] 3.5 mmol/L Normal 3.5-5.1 [facility] Comment on above: Performed By: #### F ER, [id number], FE and TIBC, MG #### [facility] [address] Sodium [Moles/Vol] 142 mmol/L Normal 136-145 [facility] Comment on above: Performed By: #### F ER, [id number], FE and TIBC, MG #### [facility] [address] Urea nitrogen [Mass/Vol] 13 mg/dL Normal 7-25 [facility] Comment on above: Performed By: #### F ER, [id number], FE and TIBC, MG #### [facility] [address] Basophils Auto (Bld) [#/Vol] Ordered By: Mindi Juan on 12-11-2022 Basophils (Bld) [#/Vol] 0.1 10*3/uL 0.0-0.2 [facility] Basophils/100 WBC Auto (Bld) Ordered By: Mindi Juan on 12-11-2022 Basophils/100 WBC (Bld) 1.2 % . [facility] Calcium [Mass/volume] in Ser um or PlasmaOrdered By: Mindi Juan on 12-11-2022 Calcium [Mass/Vol] 9.2 mg/dL 8.6-10.3 [facility] Carbon dioxide, total [Moles /volume] in Serum or PlasmaOrdered By: Mindi Juan on 12-11-2022 CO2 [Moles/Vol] 30.4 mmol/L 21.0-31.0 [facility] Chloride [Moles/volume] in S shani or PlasmaOrdered By: Mindi Juan on 12-11-2022 Chloride [Moles/Vol] 105 mmol/L 98-107 [facility] Complete Blood Count Auto Di ffon 12-11-2022 Basophils (Bld) [#/Vol] 0.1 10*3/uL Normal 0.0-0.2 [facility] Comment on above: Result Comment: PERF ORMED BY: [place] [address] PATHOLOGIST IMPREGNATOR TERESA PATTERSON M.D. Performed By: #### F ER, [id number], FE and TIBC, MG #### [address] Basophils/100 WBC (Bld) 1.2 % Normal . [facility] Comment on above: Performed By: #### F ER, [id number], FE and TIBC, MG #### [address] Eosinophils (Bld) [#/Vol] 0.2 10*3/uL Normal 0.0-0.45 [facility] Comment on above: Performed By: #### F ER, [id number], FE and TIBC, MG #### [address] Eosinophils/100 WBC (Bld) 2.3 % Normal . [facility] Comment on above: Performed By: #### F ER, [id number], FE and TIBC, MG #### [address] Erythrocyte distribution width (RBC) [Ratio] 14.4 % Normal 12.0-14.8 [facility] Comment on above: Performed By: #### F ER, [id number], FE and TIBC, MG #### [address] Hematocrit (Bld) [Volume fraction] 24.6 % Low 38.8-50.0 [facility] Comment on above: Performed By: #### F ER, [id number], FE and TIBC, MG #### [address] Hemoglobin (Bld) [Mass/Vol] 9.1 g/dL Low 13.0-17.0 [facility] Comment on above: Performed By: #### F ER, [id number], FE and TIBC, MG #### [address] Lymphocytes (Bld) [#/Vol] 2.4 10*3/uL Normal 1.00-4.8 [facility] Comment on above: Performed By: #### F ER, [id number], FE and TIBC, MG #### [address] Lymphocytes/100 WBC (Bld) 30.3 % Normal . [facility] Comment on above: Performed By: #### F ER, [id number], FE and TIBC, MG #### [address] MCH (RBC) [Entitic mass] 31.9 pg Normal 27.5-35.2 [facility] Comment on above: Performed By: #### F ER, [id number], FE and TIBC, MG #### [address] MCV (RBC) [Entitic vol] 86.7 fL Normal 83.5-101 [facility] Comment on above: Performed By: #### F ER, [id number], FE and TIBC, MG #### [address] Mean Corpuscular HGB Conc 36.8 g/dL High 32.5-35.6 [facility] Comment on above: Performed By: #### F ER, [id number], FE and TIBC, MG #### [address] Monocytes (Bld) [#/Vol] 0.6 10*3/uL Normal 0.0-0.8 [facility] Comment on above: Performed By: #### F ER, [id number], FE and TIBC, MG #### [address] Monocytes/100 WBC (Bld) 7.5 % Normal . [facility] Comment on above: Performed By: #### F ER, [id number], FE and TIBC, MG #### [facility] [address] Neutrophils (Bld) [#/Vol] 4.7 10*3/uL Normal 1.8-7.7 [facility] Comment on above: Performed By: #### F ER, [id number], FE and TIBC, MG #### [address] Neutrophils/100 WBC (Bld) 58.7 % Normal . [facility] Comment on above: Performed By: #### F ER, [id number], FE and TIBC, MG #### [address] NRBC% 0.1 /100{WBC} Normal 0-0.5 [facility] Comment on above: Performed By: #### F ER, [id number], FE and TIBC, MG #### [address] Platelet mean volume (Bld) [Entitic vol] 7.4 fL Normal 6.6-10.1 [facility] Comment on above: Performed By: #### F ER, [id number], FE and TIBC, MG #### [address] Platelets (Bld) [#/Vol] 229 10*3/uL Normal 150-450 [facility] Comment on above: Performed By: #### F ER, [id number], FE and TIBC, MG #### [address] RBC (Bld) [#/Vol] 2.84 10*6/uL Low 3.90-5.60 [facility] Comment on above: Performed By: #### F ER, [id number], FE and TIBC, MG #### [address] WBC (Bld) [#/Vol] 8.1 10*3/uL Normal 4.1-10.5 [facility] Comment on above: Performed By: #### F ER, [id number], FE and TIBC, MG #### [facility] [address] Creatinine [Mass/volume] in Serum or PlasmaOrdered By: Mindi Juan on 12-11-2022 Creatinine [Mass/Vol] 1.06 mg/dL 0.70-1.30 [facility] Eosinophils Auto (Bld) [#/Vo l]Ordered By: Mindi Juan on 12-11-2022 Eosinophils (Bld) [#/Vol] 0.2 10*3/uL 0.0-0.45 [facility] Eosinophils/100 WBC Auto (Bl d)Ordered By: Mindi Juan on 12-11-2022 Eosinophils/100 WBC (Bld) 2.3 % . [facility] Erythrocyte distribution wid th Auto (RBC) [Ratio]Ordered By: Mindi Juan on 12-11-2022 Erythrocyte distribution width (RBC) [Ratio] 14.4 % 12.0-14.8 [facility] Glucose [Mass/volume] in Ser um or PlasmaOrdered By: Mindi Juan on 12-11-2022 Glucose [Mass/Vol] 99 mg/dL 70-100 [facility] Comment on above: ADA recommended refe rence rangeRandom Glucose Reference Range is dependent on time and content of last meal. Glucose of more than 200 mg/dL in a nonstressed, ambulatory subject supports the diagnosis of Diabetes Mellitus. Hematocrit Auto (Bld) [Volum e fraction]Ordered By: Mindi Juan on 12-11-2022 Hematocrit (Bld) [Volume fraction] 24.6 % 38.8-50.0 [facility] Hemoglobin [Mass/volume] in BloodOrdered By: Mindi Juan on 12-11-2022 Hemoglobin (Bld) [Mass/Vol] 9.1 g/dL 13.0-17.0 [facility] Leukocytes [#/volume] correc khadra for nucleated erythrocytes in Blood by Automated counOrdered By: Mindi Juan on 12-11-2022 WBC corrected for nucl RBC Auto (Bld) [#/Vol] 8.1 10*3/uL 4.1-10.5 [facility] Lymphocytes Auto (Bld) [#/Vo l]Ordered By: Mindi Juan on 12-11-2022 Lymphocytes (Bld) [#/Vol] 2.4 10*3/uL 1.00-4.8 [facility] Lymphocytes/100 WBC Auto (Bl d)Ordered By: Mindi Juan on 12-11-2022 Lymphocytes/100 WBC (Bld) 30.3 % . [facility] MCH Auto (RBC) [Entitic mass ]Ordered By: Mindi Juan on 12-11-2022 MCH (RBC) [Entitic mass] 31.9 pg 27.5-35.2 [facility] MCHC Auto (RBC) [Mass/Vol]Or dered By: Mindi Juan on 12-11-2022 MCHC (RBC) [Mass/Vol] 36.8 g/dL 32.5-35.6 [facility] MCV Auto (RBC) [Entitic vol] Ordered By: Mindi Juan on 12-11-2022 MCV (RBC) [Entitic vol] 86.7 fL 83.5-101 [facility] MR head/brain wo conon 12-11 MR head/brain wo con [facility] [place] [address] MRI Report Signed Patient: Viraj Doherty MR#: [id number] : 1955 Acct:[id number] Age/Sex: 67 / M ADM Date: 12/09/22 Loc: Room: [address] [place] [address] Type: ADM IN Attending Dr: Davey Harding [...] Jeff Pat M.D.12/11/2022 12:31 PM Dictation Location: [place] [address] Transcribed By: [facility] 12/11/22 1231 Dictated By: Jeff Pat II, MD 12/11/22 1218 Signed By: 12/11/22 1231 Normal [facility] Monocytes Auto (Bld) [#/Vol] Ordered By: Mindi Juan on 12-11-2022 Monocytes (Bld) [#/Vol] 0.6 10*3/uL 0.0-0.8 [facility] Monocytes/100 WBC Auto (Bld) Ordered By: Mindi Juan on 12-11-2022 Monocytes/100 WBC (Bld) 7.5 % . [facility] Neutrophils Auto (Bld) [#/Vo l]Ordered By: Mindi Juan on 12-11-2022 Neutrophils (Bld) [#/Vol] 4.7 10*3/uL 1.8-7.7 [facility] Neutrophils/100 WBC Auto (Bl d)Ordered By: Mindi Juan on 12-11-2022 Neutrophils/100 WBC (Bld) 58.7 % . [facility] No Panel InformationOrdered By: Mindi Juan on 12-11-2022 Estimated GFR (CKD-EPI) > 60.0 mL/Min [facility] Creatinine Clearance (Chem 66.33 [facility] Nucleated erythrocytes [Pres ence] in Blood by Automated countOrdered By: Mindi Juan on 12-11-2022 Nucleated RBC Auto Ql (Bld) 0.1 /100{WBC} 0-0.5 [facility] Platelet mean volume Auto (B ld) [Entitic vol]Ordered By: Mindi Juan on 12-11-2022 Platelet mean volume (Bld) [Entitic vol] 7.4 fL 6.6-10.1 [facility] Platelets Auto (Bld) [#/Vol] Ordered By: Mindi Juan on 12-11-2022 Platelets (Bld) [#/Vol] 229 10*3/uL 150-450 [facility] Potassium [Moles/volume] in Serum or PlasmaOrdered By: Mindi Juan on 12-11-2022 Potassium [Moles/Vol] 3.5 mmol/L 3.5-5.1 [facility] RBC Auto (Bld) [#/Vol]Ordere d By: Mindi Juan on 12-11-2022 RBC (Bld) [#/Vol] 2.84 10*6/uL 3.90-5.60 [facility] Serum or plasma anion gap de terminationOrdered By: Mindi Juan on 12-11-2022 Anion gap [Moles/Vol] 10.1 mmol/L 6.0-15.0 [facility] Sodium [Moles/volume] in Ser um or PlasmaOrdered By: Mindi Juan on 12-11-2022 Sodium [Moles/Vol] 142 mmol/L 136-145 [facility] Urea nitrogen [Mass/volume] in Serum or PlasmaOrdered By: Mindi Juan on 12-11-2022 Urea nitrogen [Mass/Vol] 13 mg/dL 09-19 [facility] WBC Auto (Bld) [#/Vol]Ordere d By: Mindi Juan on 12-11-2022 WBC (Bld) [#/Vol] 8.1 10*3/uL 4.1-10.5 [facility] Basic Metabolic Panelon 11-26 Anion gap [Moles/Vol] 10.2 mmol/L Normal 6.0-15.0 [facility] Comment on above: Performed By: #### F ER, [id number], FE and TIBC, MG #### [facility] [address] Calcium [Mass/Vol] 8.9 mg/dL Normal 8.6-10.3 [facility] Comment on above: Performed By: #### F ER, [id number], FE and TIBC, MG #### [facility] [address] [place] [address] [place] Chloride [Moles/Vol] 106 mmol/L Normal 98-107 [facility] Comment on above: Performed By: #### F ER, [id number], FE and TIBC, MG #### [facility] [address] CO2 [Moles/Vol] 26.8 mmol/L Normal 21.0-31.0 [facility] Comment on above: Performed By: #### F ER, [id number], FE and TIBC, MG #### [facility] [address] [place] [address] [place] Creatinine [Mass/Vol] 0.83 mg/dL Normal 0.70-1.30 [facility] Comment on above: Performed By: #### F ER, [id number], FE and TIBC, MG #### [facility] [address] [place] [address] [place] Creatinine Clr Calc Pharmacy 84.35 [facility] Comment on above: Result Comment: PERF ORMED BY: [place] [address] PATHOLOGIST IMPREGNATOR TERESA PATTERSON M.D. Performed By: #### F ER, [id number], FE and TIBC, MG #### [address] GFR/1.73 sq M.predicted MDRD (S/P/Bld) [Vol rate/Area] mL/min/{1.73_m2} [facility] Comment on above: Performed By: #### F ER, [id number], FE and TIBC, MG #### [address] Glucose [Mass/Vol] 100 mg/dL Normal 70-100 [facility] Comment on above: Result Comment: [place] Glucose Reference Range is dependent on time and content of last meal. Glucose of more than 200 mg/dL in a nonstressed, ambulatory subject supports the diagnosis of Diabetes Mellitus. ADA recommended reference range Performed By: #### F ER, [id number], FE and TIBC, MG #### [address] Potassium [Moles/Vol] 3.0 mmol/L Low 3.5-5.1 [facility] Comment on above: Performed By: #### F ER, [id number], FE and TIBC, MG #### [address] Sodium [Moles/Vol] 140 mmol/L Normal 136-145 [facility] Comment on above: Performed By: #### F ER, [id number], FE and TIBC, MG #### [address] Urea nitrogen [Mass/Vol] 16 mg/dL Normal 7-25 [facility] Comment on above: Performed By: #### F ER, [id number], FE and TIBC, MG #### [address] Complete Blood Count Auto Di ffon 12-10-2022 Basophils (Bld) [#/Vol] 0.1 10*3/uL Normal 0.0-0.2 [facility] Comment on above: Result Comment: PERF ORMED BY: [place] [address] PATHOLOGIST IMPREGNATOR TERESA PATTERSON M.D. Performed By: #### F ER, [id number], FE and TIBC, MG #### [address] Basophils/100 WBC (Bld) 0.9 % Normal . [facility] Comment on above: Performed By: #### F ER, [id number], FE and TIBC, MG #### [address] Eosinophils (Bld) [#/Vol] 0.1 10*3/uL Normal 0.0-0.45 [facility] Comment on above: Performed By: #### F ER, [id number], FE and TIBC, MG #### [address] Eosinophils/100 WBC (Bld) 1.3 % Normal . [facility] Comment on above: Performed By: #### F ER, [id number], FE and TIBC, MG #### [address] Erythrocyte distribution width (RBC) [Ratio] 14.1 % Normal 12.0-14.8 [facility] Comment on above: Performed By: #### F ER, [id number], FE and TIBC, MG #### [address] Hematocrit (Bld) [Volume fraction] 23.2 % Low 38.8-50.0 [facility] Comment on above: Performed By: #### F ER, [id number], FE and TIBC, MG #### [address] Hemoglobin (Bld) [Mass/Vol] 8.4 g/dL Low 13.0-17.0 [facility] Comment on above: Performed By: #### F ER, [id number], FE and TIBC, MG #### [address] Lymphocytes (Bld) [#/Vol] 2.2 10*3/uL Normal 1.00-4.8 [facility] Comment on above: Performed By: #### F ER, [id number], FE and TIBC, MG #### [address] Lymphocytes/100 WBC (Bld) 24.2 % Normal . [facility] Comment on above: Performed By: #### F ER, [id number], FE and TIBC, MG #### [address] MCH (RBC) [Entitic mass] 31.3 pg Normal 27.5-35.2 [facility] Comment on above: Performed By: #### F ER, [id number], FE and TIBC, MG #### [address] MCV (RBC) [Entitic vol] 86.5 fL Normal 83.5-101 [facility] Comment on above: Performed By: #### F ER, [id number], FE and TIBC, MG #### [address] Mean Corpuscular HGB Conc 36.2 g/dL High 32.5-35.6 [facility] Comment on above: Performed By: #### F ER, [id number], FE and TIBC, MG #### [address] Monocytes (Bld) [#/Vol] 0.8 10*3/uL Normal 0.0-0.8 [facility] Comment on above: Performed By: #### F ER, [id number], FE and TIBC, MG #### [address] Monocytes/100 WBC (Bld) 9.1 % Normal . [facility] Comment on above: Performed By: #### F ER, [id number], FE and TIBC, MG #### [address] Neutrophils (Bld) [#/Vol] 5.8 10*3/uL Normal 1.8-7.7 [facility] Comment on above: Performed By: #### F ER, [id number], FE and TIBC, MG #### [address] Neutrophils/100 WBC (Bld) 64.5 % Normal . [facility] Comment on above: Performed By: #### F ER, [id number], FE and TIBC, MG #### [address] NRBC% 0.0 /100{WBC} Normal 0-0.5 [facility] Comment on above: Performed By: #### F ER, [id number], FE and TIBC, MG #### [address] Platelet mean volume (Bld) [Entitic vol] 7.6 fL Normal 6.6-10.1 [facility] Comment on above: Performed By: #### F ER, [id number], FE and TIBC, MG #### [address] Platelets (Bld) [#/Vol] 218 10*3/uL Normal 150-450 [facility] Comment on above: Performed By: #### F ER, [id number], FE and TIBC, MG #### [address] RBC (Bld) [#/Vol] 2.68 10*6/uL Low 3.90-5.60 [facility] Comment on above: Performed By: #### F ER, [id number], FE and TIBC, MG #### [facility] [address] WBC (Bld) [#/Vol] 8.9 10*3/uL Normal 4.1-10.5 [facility] Comment on above: Performed By: #### F ER, [id number], FE and TIBC, MG #### [facility] [address] Ferritinon 12-10-2022 Ferritin [Mass/Vol] 33.0 ng/mL Normal 23.9-336.2 [facility] Comment on above: Order Comment: Comme nt add Comment add Performed By: #### F ER, [id number], FE and TIBC, MG #### [address] Ferritin [Mass/volume] in Se rum or PlasmaOrdered By: Mindi Juan on 12-10-2022 Ferritin [Mass/Vol] 33.0 ng/mL 23.9-336.2 [facility] Folate [Mass/volume] in Seru m or PlasmaOrdered By: Mindi Juan on 12-10-2022 Folate [Mass/Vol] 10.4 ng/mL >5.9 [facility] Comment on above: Folate reference ran ge: >5.9 ng/mlThe WHO technical consultation on folate and vitamin [id number] has determined that folate concentrations lessthan 4 ng/ml are considered deficient. Hemoglobin and Hematocriton 12-10-2022 Hematocrit (Bld) [Volume fraction] 24.0 % Low 38.8-50.0 [facility] Comment on above: Result Comment: PERF ORMED BY: [place] [address] PATHOLOGIST IMPREGNATOR TERESA PATTERSON M.D. Performed By: #### F ER, [id number], FE and TIBC, MG #### [address] Hemoglobin (Bld) [Mass/Vol] 8.6 g/dL Low 13.0-17.0 [facility] Comment on above: Performed By: #### F ER, [id number], FE and TIBC, MG #### [facility] [address] [place] [address] Iron [Mass/volume] in Serum or PlasmaOrdered By: Mindi Juan on 12-10-2022 Iron [Mass/Vol] 38 ug/dL 50-212 [facility] Iron and TIBC Profileon 11-26 % Iron Saturation 11.6 % Low 20-50 [facility] Comment on above: Order Comment: Comme nt add Comment add Performed By: #### F ER, [id number], FE and TIBC, MG #### [facility] [address] [place] [address] Iron [Mass/Vol] 38 ug/dL Low 50-212 [facility] Comment on above: Order Comment: Comme nt add Comment add Performed By: #### F ER, [id number], FE and TIBC, MG #### [facility] [address] [place] [address] Total Iron Binding Capacity 329 ug/dL Normal 255-450 [facility] Comment on above: Order Comment: Comme nt add Comment add Performed By: #### F ER, [id number], FE and TIBC, MG #### [facility] [address] [place] [address] Transferrin [Mass/Vol] 235 mg/dL Normal 203-362 [facility] Comment on above: Order Comment: Comme nt add Comment add Performed By: #### F ER, [id number], FE and TIBC, MG #### [facility] [address] [place] [address] [place] Iron binding capacity [Mass/ volume] in Serum or PlasmaOrdered By: Mindi Juan on 12-10-2022 Iron binding capacity [Mass/Vol] 329 ug/dL 255-450 [facility] Iron saturation [Mass Fracti on] in Serum or PlasmaOrdered By: Mindi Caitye on 12-10-2022 Iron saturation [Mass fraction] 11.6 % 20-50 [facility] Magnesiumon 12-10-2022 Magnesium [Mass/Vol] 1.9 mg/dL Normal 1.9-2.7 [facility] Comment on above: Order Comment: Commsrini nt add Comment add Performed By: #### F ER, [id number], FE and TIBC, MG #### [facility] [address] [place] [id number] [facility] Magnesium [Mass/volume] in S shani or PlasmaOrdered By: Mindi Juan on 12-10-2022 Magnesium [Mass/Vol] 1.9 mg/dL 1.9-2.7 [facility] Transferrin [Mass/volume] in Serum or PlasmaOrdered By: Mindi Juan on 12-10-2022 Transferrin [Mass/Vol] 235 mg/dL 203-362 [facility] Vit. B12/Folate Profileon Cobalamin (Vitamin B12) [Mass/Vol] 228 pg/mL Normal 180-914 [facility] Comment on above: Order Comment: Comme nt add Comment add Performed By: #### F ER, [id number], FE and TIBC, MG #### [facility] [address] [place] [address] Folate 10.4 ng/mL Normal >5.9 [facility] Comment on above: Order Comment: Commsrini nt add Comment add Result Comment: Lydia te reference range: >5.9 ng/ml The WHO technical consultation on folate and vitamin b12 deficiencies has determined that folate concentrations less than 4 ng/ml are considered deficient. PERFORMED BY: [place] [address] PATHOLOGIST IMPREGNATOR TERESA PATTERSON M.D. Performed By: #### F ER, [id number], FE and TIBC, MG #### [facility] [address] [place] [address] Vitamin B12 ser/plasOrdered By: Mindi Juan on 12-10-2022 Cobalamin (Vitamin B12) [Mass/Vol] 228 pg/mL 180-914 [facility] Basic Metabolic Panelon 09-2 Anion gap [Moles/Vol] 6.5 mmol/L Normal 6.0-15.0 [facility] Comment on above: Performed By: #### F ER, [id number], FE and TIBC, MG #### [facility] [address] Calcium [Mass/Vol] 9.3 mg/dL Normal 8.6-10.3 [facility] Comment on above: Performed By: #### F ER, [id number], FE and TIBC, MG #### [facility] [address] Chloride [Moles/Vol] 105 mmol/L Normal 98-107 [facility] Comment on above: Performed By: #### F ER, [id number], FE and TIBC, MG #### [facility] [address] CO2 [Moles/Vol] 28.0 mmol/L Normal 21.0-31.0 [facility] Comment on above: Performed By: #### F ER, [id number], FE and TIBC, MG #### [facility] [address] Creatinine [Mass/Vol] 1.15 mg/dL Normal 0.70-1.30 [facility] Comment on above: Performed By: #### F ER, [id number], FE and TIBC, MG #### [facility] [address] [place] [address] [place] Creatinine Clr Calc Pharmacy 59.85 Normal [facility] Comment on above: Result Comment: PERF ORMED BY: [place] [address] PATHOLOGIST IMPREGNATOR TERESA PATTERSON M.D. Performed By: #### F ER, [id number], FE and TIBC, MG #### [facility] [address] [place] [address] [place] GFR/1.73 sq M.predicted MDRD (S/P/Bld) [Vol rate/Area] mL/min/{1.73_m2} Normal [facility] Comment on above: Performed By: #### F ER, [id number], FE and TIBC, MG #### [facility] [address] Glucose [Mass/Vol] 101 mg/dL High 70-100 [facility] Comment on above: Result Comment: [place] Glucose Reference Range is dependent on time and content of last meal. Glucose of more than 200 mg/dL in a nonstressed, ambulatory subject supports the diagnosis of Diabetes Mellitus. ADA recommended reference range Performed By: #### F ER, [id number], FE and TIBC, MG #### [facility] [address] Potassium [Moles/Vol] 3.5 mmol/L Normal 3.5-5.1 [facility] Comment on above: Performed By: #### F ER, [id number], FE and TIBC, MG #### [facility] [address] Sodium [Moles/Vol] 136 mmol/L Normal 136-145 [facility] Comment on above: Performed By: #### F ER, [id number], FE and TIBC, MG #### [facility] [address] Urea nitrogen [Mass/Vol] 29 mg/dL High 7-25 [facility] Comment on above: Performed By: #### F ER, [id number], FE and TIBC, MG #### [facility] [address] Calcium [Mass/volume] in Ser um or PlasmaOrdered By: Jose Martin Sen on 11-15-2022 Calcium [Mass/Vol] 9.3 mg/dL 8.6-10.3 [facility] Carbon dioxide, total [Moles /volume] in Serum or PlasmaOrdered By: Jose Martin Sen on 11-15-2022 CO2 [Moles/Vol] 28.0 mmol/L 21.0-31.0 [facility] Chloride [Moles/volume] in S shani or PlasmaOrdered By: Jose Martin Sen on 11-15-2022 Chloride [Moles/Vol] 105 mmol/L 98-107 [facility] Creatinine [Mass/volume] in Serum or PlasmaOrdered By: Jose Martin Sen on 11-15-2022 Creatinine [Mass/Vol] 1.15 mg/dL 0.70-1.30 [facility] Glucose [Mass/volume] in Ser um or PlasmaOrdered By: Jose Martin Sen on 11-15-2022 Glucose [Mass/Vol] 101 mg/dL 70-100 [facility] Comment on above: ADA recommended refe rence rangeRandom Glucose Reference Range is dependent on time and content of last meal. Glucose of more than 200 mg/dL in a nonstressed, ambulatory subject supports the diagnosis of Diabetes Mellitus. No Panel InformationOrdered By: Jose Martin Sen on 11-15-2022 Estimated GFR (CKD-EPI) > 60.0 mL/Min [facility] Creatinine Clearance (Chem 59.85 [facility] Potassium [Moles/volume] in Serum or PlasmaOrdered By: Jose Martin Sen on 11-15-2022 Potassium [Moles/Vol] 3.5 mmol/L 3.5-5.1 [facility] Serum or plasma anion gap de terminationOrdered By: Jose Martin Sen on 11-15-2022 Anion gap [Moles/Vol] 6.5 mmol/L 6.0-15.0 [facility] Sodium [Moles/volume] in Ser um or PlasmaOrdered By: Jose Martin Sen on 11-15-2022 Sodium [Moles/Vol] 136 mmol/L 136-145 [facility] Urea nitrogen [Mass/volume] in Serum or PlasmaOrdered By: Jose Martin Sen on 11-15-2022 Urea nitrogen [Mass/Vol] 29 mg/dL 7-25 [facility] Basic Metabolic Panelon 10-27 Anion gap [Moles/Vol] 10.7 mmol/L Normal 6.0-15.0 [facility] Comment on above: Performed By: #### F ER, [id number], FE and TIBC, MG #### [facility] [address] Calcium [Mass/Vol] 9.3 mg/dL Normal 8.6-10.3 [facility] Comment on above: Performed By: #### F ER, [id number], FE and TIBC, MG #### [facility] [address] Chloride [Moles/Vol] 103 mmol/L Normal 98-107 [facility] Comment on above: Performed By: #### F ER, [id number], FE and TIBC, MG #### [facility] [address] CO2 [Moles/Vol] 26.8 mmol/L Normal 21.0-31.0 [facility] Comment on above: Performed By: #### F ER, [id number], FE and TIBC, MG #### [facility] [address] Creatinine [Mass/Vol] 1.09 mg/dL Normal 0.70-1.30 [facility] Comment on above: Performed By: #### F ER, [id number], FE and TIBC, MG #### [facility] [address] [place] [address] [place] Creatinine Clr Calc Pharmacy 66.04 [facility] Comment on above: Result Comment: PERF ORMED BY: [place] [address] PATHOLOGIST IMPREGNATOR TERESA PATTERSON M.D. Performed By: #### F ER, [id number], FE and TIBC, MG #### [facility] [address] [place] [address] [place] GFR/1.73 sq M.predicted MDRD (S/P/Bld) [Vol rate/Area] mL/min/{1.73_m2} [facility] Comment on above: Performed By: #### F ER, [id number], FE and TIBC, MG #### [facility] [address] Glucose [Mass/Vol] 104 mg/dL High 70-100 [facility] Comment on above: Result Comment: [place] Glucose Reference Range is dependent on time and content of last meal. Glucose of more than 200 mg/dL in a nonstressed, ambulatory subject supports the diagnosis of Diabetes Mellitus. ADA recommended reference range Performed By: #### F ER, [id number], FE and TIBC, MG #### [facility] [address] Potassium [Moles/Vol] 3.5 mmol/L Normal 3.5-5.1 [facility] Comment on above: Performed By: #### F ER, [id number], FE and TIBC, MG #### [facility] [address] Sodium [Moles/Vol] 137 mmol/L Normal 136-145 [facility] Comment on above: Performed By: #### F ER, [id number], FE and TIBC, MG #### [facility] [address] Urea nitrogen [Mass/Vol] 27 mg/dL High 7-25 [facility] Comment on above: Performed By: #### F ER, [id number], FE and TIBC, MG #### [facility] [address] [place] [address] Basophils Auto (Bld) [#/Vol] Ordered By: Jose Martin Sen on 11-08-2022 Basophils (Bld) [#/Vol] 0.1 10*3/uL 0.0-0.2 [facility] Basophils/100 WBC Auto (Bld) Ordered By: Jose Martin Sen on 11-08-2022 Basophils/100 WBC (Bld) 0.9 % . [facility] Complete Blood Count Auto Di ffon 11-08-2022 Basophils (Bld) [#/Vol] 0.1 10*3/uL Normal 0.0-0.2 [facility] Comment on above: Result Comment: PERF ORMED BY: [place] [address] PATHOLOGIST IMPREGNATOR TERESA PATTERSON M.D. Performed By: #### F ER, [id number], FE and TIBC, MG #### [address] Basophils/100 WBC (Bld) 0.9 % Normal . [facility] Comment on above: Performed By: #### F ER, [id number], FE and TIBC, MG #### [address] Eosinophils (Bld) [#/Vol] 0.1 10*3/uL Normal 0.0-0.45 [facility] Comment on above: Performed By: #### F ER, [id number], FE and TIBC, MG #### [address] Eosinophils/100 WBC (Bld) 0.9 % Normal . [facility] Comment on above: Performed By: #### F ER, [id number], FE and TIBC, MG #### [address] Erythrocyte distribution width (RBC) [Ratio] 13.7 % Normal 12.0-14.8 [facility] Comment on above: Performed By: #### F ER, [id number], FE and TIBC, MG #### [address] Hematocrit (Bld) [Volume fraction] 43.8 % Normal 38.8-50.0 [facility] Comment on above: Performed By: #### F ER, [id number], FE and TIBC, MG #### [address] Hemoglobin (Bld) [Mass/Vol] 15.4 g/dL Normal 13.0-17.0 [facility] Comment on above: Performed By: #### F ER, [id number], FE and TIBC, MG #### [address] Lymphocytes (Bld) [#/Vol] 2.7 10*3/uL Normal 1.00-4.8 [facility] Comment on above: Performed By: #### F ER, [id number], FE and TIBC, MG #### [address] Lymphocytes/100 WBC (Bld) 28.3 % Normal . [facility] Comment on above: Performed By: #### F ER, [id number], FE and TIBC, MG #### [address] MCH (RBC) [Entitic mass] 30.5 pg Normal 27.5-35.2 [facility] Comment on above: Performed By: #### F ER, [id number], FE and TIBC, MG #### [address] MCV (RBC) [Entitic vol] 86.7 fL Normal 83.5-101 [facility] Comment on above: Performed By: #### F ER, [id number], FE and TIBC, MG #### [address] Mean Corpuscular HGB Conc 35.2 g/dL Normal 32.5-35.6 [facility] Comment on above: Performed By: #### F ER, [id number], FE and TIBC, MG #### [address] Monocytes (Bld) [#/Vol] 1.3 10*3/uL High 0.0-0.8 [facility] Comment on above: Performed By: #### F ER, [id number], FE and TIBC, MG #### [address] Monocytes/100 WBC (Bld) 13.4 % Normal . [facility] Comment on above: Performed By: #### F ER, [id number], FE and TIBC, MG #### [address] Neutrophils (Bld) [#/Vol] 5.3 10*3/uL Normal 1.8-7.7 [facility] Comment on above: Performed By: #### F ER, [id number], FE and TIBC, MG #### [address] Neutrophils/100 WBC (Bld) 56.5 % Normal . [facility] Comment on above: Performed By: #### F ER, [id number], FE and TIBC, MG #### [address] NRBC% 0.1 /100{WBC} Normal 0-0.5 [facility] Comment on above: Performed By: #### F ER, [id number], FE and TIBC, MG #### [address] Platelet mean volume (Bld) [Entitic vol] 9.0 fL Normal 6.6-10.1 [facility] Comment on above: Performed By: #### F ER, [id number], FE and TIBC, MG #### [address] Platelets (Bld) [#/Vol] 224 10*3/uL Normal 150-450 [facility] Comment on above: Performed By: #### F ER, [id number], FE and TIBC, MG #### [address] RBC (Bld) [#/Vol] 5.05 10*6/uL Normal 3.90-5.60 [facility] Comment on above: Performed By: #### F ER, [id number], FE and TIBC, MG #### [address] WBC (Bld) [#/Vol] 9.4 10*3/uL Normal 4.1-10.5 [facility] Comment on above: Performed By: #### F ER, [id number], FE and TIBC, MG #### [address] Eosinophils Auto (Bld) [#/Vo l]Ordered By: Jose Martin Sen on 11-08-2022 Eosinophils (Bld) [#/Vol] 0.1 10*3/uL 0.0-0.45 [facility] Eosinophils/100 WBC Auto (Bl d)Ordered By: Jose Martin Sen on 11-08-2022 Eosinophils/100 WBC (Bld) 0.9 % . [facility] Erythrocyte distribution wid th Auto (RBC) [Ratio]Ordered By: Jose Martin Sen on 11-08-2022 Erythrocyte distribution width (RBC) [Ratio] 13.7 % 12.0-14.8 [facility] Hematocrit Auto (Bld) [Volum e fraction]Ordered By: Jose Martin Sen on 11-08-2022 Hematocrit (Bld) [Volume fraction] 43.8 % 38.8-50.0 [facility] Hemoglobin [Mass/volume] in BloodOrdered By: Jose Martin Sen on 11-08-2022 Hemoglobin (Bld) [Mass/Vol] 15.4 g/dL 13.0-17.0 [facility] Leukocytes [#/volume] correc khadra for nucleated erythrocytes in Blood by Automated counOrdered By: Jose Martin Sen on 11-08-2022 WBC corrected for nucl RBC Auto (Bld) [#/Vol] 9.4 10*3/uL 4.1-10.5 [facility] Lymphocytes Auto (Bld) [#/Vo l]Ordered By: Jose Martin Sen on 11-08-2022 Lymphocytes (Bld) [#/Vol] 2.7 10*3/uL 1.00-4.8 [facility] Lymphocytes/100 WBC Auto (Bl d)Ordered By: Jose Martin Sen on 11-08-2022 Lymphocytes/100 WBC (Bld) 28.3 % . [facility] MCH Auto (RBC) [Entitic mass ]Ordered By: Jose Martin Sen on 11-08-2022 MCH (RBC) [Entitic mass] 30.5 pg 27.5-35.2 [facility] MCHC Auto (RBC) [Mass/Vol]Or dered By: Jose Martin Sen on 11-08-2022 MCHC (RBC) [Mass/Vol] 35.2 g/dL 32.5-35.6 [facility] MCV Auto (RBC) [Entitic vol] Ordered By: Jose Martin Sen on 11-08-2022 MCV (RBC) [Entitic vol] 86.7 fL 83.5-101 [facility] Monocytes Auto (Bld) [#/Vol] Ordered By: Jose Martin Sen on 11-08-2022 Monocytes (Bld) [#/Vol] 1.3 10*3/uL 0.0-0.8 [facility] Monocytes/100 WBC Auto (Bld) Ordered By: Jose Martin Sen on 11-08-2022 Monocytes/100 WBC (Bld) 13.4 % . [facility] Neutrophils Auto (Bld) [#/Vo l]Ordered By: Jose Martin Sen on 11-08-2022 Neutrophils (Bld) [#/Vol] 5.3 10*3/uL 1.8-7.7 [facility] Neutrophils/100 WBC Auto (Bl d)Ordered By: Jose Martin Sen on 11-08-2022 Neutrophils/100 WBC (Bld) 56.5 % . [facility] Nucleated erythrocytes [Pres ence] in Blood by Automated countOrdered By: Jose Martin Sen on 11-08-2022 Nucleated RBC Auto Ql (Bld) 0.1 /100{WBC} 0-0.5 [facility] Platelet mean volume Auto (B ld) [Entitic vol]Ordered By: Jose Martin Sen on 11-08-2022 Platelet mean volume (Bld) [Entitic vol] 9.0 fL 6.6-10.1 [facility] Platelets Auto (Bld) [#/Vol] Ordered By: Jose Martin Sen on 11-08-2022 Platelets (Bld) [#/Vol] 224 10*3/uL 150-450 [facility] RBC Auto (Bld) [#/Vol]Ordere d By: Jose Martin Sen on 11-08-2022 RBC (Bld) [#/Vol] 5.05 10*6/uL 3.90-5.60 [facility] WBC Auto (Bld) [#/Vol]Ordere d By: Jose Martin Sen on 11-08-2022 WBC (Bld) [#/Vol] 9.4 10*3/uL 4.1-10.5 [facility] Basic Metabolic Panelon 10-27 Anion gap [Moles/Vol] 10.7 mmol/L Normal 6.0-15.0 [facility] Comment on above: Performed By: #### F ER, [id number], FE and TIBC, MG #### [facility] [address] Calcium [Mass/Vol] 9.4 mg/dL Normal 8.6-10.3 [facility] Comment on above: Performed By: #### F ER, [id number], FE and TIBC, MG #### [facility] [address] Chloride [Moles/Vol] 100 mmol/L Normal 98-107 [facility] Comment on above: Performed By: #### F ER, [id number], FE and TIBC, MG #### [facility] [address] CO2 [Moles/Vol] 28.8 mmol/L Normal 21.0-31.0 [facility] Comment on above: Performed By: #### F ER, [id number], FE and TIBC, MG #### [facility] [address] Creatinine [Mass/Vol] 1.13 mg/dL Normal 0.70-1.30 [facility] Comment on above: Performed By: #### F ER, [id number], FE and TIBC, MG #### [facility] [address] Creatinine Clr Calc Pharmacy 63.70 Normal [facility] Comment on above: Result Comment: PERF ORMED BY: [place] [address] PATHOLOGIST IMPREGNATOR TERESA PATTERSON M.D. Performed By: #### F ER, [id number], FE and TIBC, MG #### [facility] [address] GFR/1.73 sq M.predicted MDRD (S/P/Bld) [Vol rate/Area] mL/min/{1.73_m2} Normal [facility] Comment on above: Performed By: #### F ER, [id number], FE and TIBC, MG #### [facility] [address] [place] [address] [place] Glucose [Mass/Vol] 105 mg/dL High 70-100 [facility] Comment on above: Result Comment: [place] Glucose Reference Range is dependent on time and content of last meal. Glucose of more than 200 mg/dL in a nonstressed, ambulatory subject supports the diagnosis of Diabetes Mellitus. ADA recommended reference range Performed By: #### F ER, [id number], FE and TIBC, MG #### [facility] [address] Potassium [Moles/Vol] 3.5 mmol/L Normal 3.5-5.1 [facility] Comment on above: Performed By: #### F ER, [id number], FE and TIBC, MG #### [facility] [address] [place] [address] [place] Sodium [Moles/Vol] 136 mmol/L Normal 136-145 [facility] Comment on above: Performed By: #### F ER, [id number], FE and TIBC, MG #### [facility] [address] [place] [address] [place] Urea nitrogen [Mass/Vol] 28 mg/dL High 7-25 [facility] Comment on above: Performed By: #### F ER, [id number], FE and TIBC, MG #### [facility] [address] Bilirubin Test strip Ql (U)O rdered By: Jose Martin Sen on 11-07-2022 Bilirubin Ql (U) Negative Negative [facility] CT head/brain wo conon 11-07 CT head/brain wo con [facility] [place] [address] [place] [address] CT Scan Report Signed Patient: Viraj Doherty MR#: [id number] : 1955 Acct:[id number] Age/Sex: 67 / M ADM Date: 11/02/22 Loc: Room: 4H5669-9 Type: ADM IN Attending Dr: Jose Martin [...] Impression dictated by: Jose Martin Jha Jr., D.ODiaz11/07/2022 3:24 PM Dictation Location: [place] [address] Transcribed By: [facility] 11/07/22 1524 Dictated By: Jose Martin Jha Jr, DO 11/07/22 1521 Signed By: 11/07/22 1524 Normal [facility] Color Auto (U)Ordered By: Karen Sen on 11-07-2022 Color (U) Yellow Yellow [facility] Complete Blood Count Auto Di ffon 11-07-2022 Basophils (Bld) [#/Vol] 0.1 10*3/uL Normal 0.0-0.2 [facility] Comment on above: Result Comment: PERF ORMED BY: [place] [address] PATHOLOGIST IMPREGNATOR TERESA PATTERSON M.D. Performed By: #### F ER, [id number], FE and TIBC, MG #### [address] Basophils/100 WBC (Bld) 1.1 % Normal . [facility] Comment on above: Performed By: #### F ER, [id number], FE and TIBC, MG #### [address] Eosinophils (Bld) [#/Vol] 0.0 10*3/uL Normal 0.0-0.45 [facility] Comment on above: Performed By: #### F ER, [id number], FE and TIBC, MG #### [address] Eosinophils/100 WBC (Bld) 0.4 % Normal . [facility] Comment on above: Performed By: #### F ER, [id number], FE and TIBC, MG #### [address] Erythrocyte distribution width (RBC) [Ratio] 14.2 % Normal 12.0-14.8 [facility] Comment on above: Performed By: #### F ER, [id number], FE and TIBC, MG #### [address] Hematocrit (Bld) [Volume fraction] 45.3 % Normal 38.8-50.0 [facility] Comment on above: Performed By: #### F ER, [id number], FE and TIBC, MG #### [address] Hemoglobin (Bld) [Mass/Vol] 15.9 g/dL Normal 13.0-17.0 [facility] Comment on above: Performed By: #### F ER, [id number], FE and TIBC, MG #### [address] [place] [address] [place] Lymphocytes (Bld) [#/Vol] 1.7 10*3/uL Normal 1.00-4.8 [facility] Comment on above: Performed By: #### F ER, [id number], FE and TIBC, MG #### [address] Lymphocytes/100 WBC (Bld) 21.8 % Normal . [facility] Comment on above: Performed By: #### F ER, [id number], FE and TIBC, MG #### [address] MCH (RBC) [Entitic mass] 30.6 pg Normal 27.5-35.2 [facility] Comment on above: Performed By: #### F ER, [id number], FE and TIBC, MG #### [address] MCV (RBC) [Entitic vol] 87.4 fL Normal 83.5-101 [facility] Comment on above: Performed By: #### F ER, [id number], FE and TIBC, MG #### [address] Mean Corpuscular HGB Conc 35.1 g/dL Normal 32.5-35.6 [facility] Comment on above: Performed By: #### F ER, [id number], FE and TIBC, MG #### [address] Monocytes (Bld) [#/Vol] 1.0 10*3/uL High 0.0-0.8 [facility] Comment on above: Performed By: #### F ER, [id number], FE and TIBC, MG #### [address] Monocytes/100 WBC (Bld) 12.9 % Normal . [facility] Comment on above: Performed By: #### F ER, [id number], FE and TIBC, MG #### [facility] [address] [place] [address] Neutrophils (Bld) [#/Vol] 4.9 10*3/uL Normal 1.8-7.7 [facility] Comment on above: Performed By: #### F ER, [id number], FE and TIBC, MG #### [address] Neutrophils/100 WBC (Bld) 63.8 % Normal . [facility] Comment on above: Performed By: #### F ER, [id number], FE and TIBC, MG #### [address] NRBC% 0.1 /100{WBC} Normal 0-0.5 [facility] Comment on above: Performed By: #### F ER, [id number], FE and TIBC, MG #### [address] Platelet mean volume (Bld) [Entitic vol] 8.5 fL Normal 6.6-10.1 [facility] Comment on above: Performed By: #### F ER, [id number], FE and TIBC, MG #### [address] Platelets (Bld) [#/Vol] 215 10*3/uL Normal 150-450 [facility] Comment on above: Performed By: #### F ER, [id number], FE and TIBC, MG #### [address] RBC (Bld) [#/Vol] 5.19 10*6/uL Normal 3.90-5.60 [facility] Comment on above: Performed By: #### F ER, [id number], FE and TIBC, MG #### [address] WBC (Bld) [#/Vol] 7.6 10*3/uL Normal 4.1-10.5 [facility] Comment on above: Performed By: #### F ER, [id number], FE and TIBC, MG #### [facility] [address] Ketones Auto test strip (U) [Mass/Vol]Ordered By: Jose Martin Sen on 11-07-2022 Ketones (U) [Mass/Vol] Negative Negative [facility] Nitrite Test strip Ql (U)Ord ered By: Jose Martin Sen on 11-07-2022 Nitrite Ql (U) Negative Negative [facility] Potassiumon 11-07-2022 Potassium [Moles/Vol] 3.8 mmol/L Normal 3.5-5.1 [facility] Comment on above: Result Comment: PERF ORMED BY: [facility] [address] [place] [address] PATHOLOGIST IMPREGNATOR TERESA PATTERSON M.D. Performed By: #### F ER, [id number], FE and TIBC, MG #### [facility] [address] Protein Auto test strip (U) [Mass/Vol]Ordered By: Jose Martin Niñoey on 11-07-2022 Protein (U) [Mass/Vol] Negative Negative [facility] Specific gravity Auto test s trip (U) [Rel density]Ordered By: Jose Martin Sen on 11-07-2022 Specific gravity (U) [Rel density] 1.014 1.001-1.03 0 [facility] Urinalysison 11-07-2022 Appearance (U) Clear Normal Clear [facility] Comment on above: Order Comment: Comme nt add Comment add Performed By: #### F ER, [id number], FE and TIBC, MG #### [facility] [address] [place] [address] [place] Bilirubin,Urine Negative Normal Negative [facility] Comment on above: Order Comment: Comme nt add Comment add Performed By: #### F ER, [id number], FE and TIBC, MG #### [facility] [address] [place] [address] [place] Color (U) Yellow Normal Yellow [facility] Comment on above: Order Comment: Comme nt add Comment add Performed By: #### F ER, [id number], FE and TIBC, MG #### [facility] [address] [place] [address] Glucose Ql (U) Normal Normal Normal [facility] Comment on above: Order Comment: Comme nt add Comment add Performed By: #### F ER, [id number], FE and TIBC, MG #### [address] Ketones Ql (U) Negative Normal Negative [facility] Comment on above: Order Comment: Comme nt add Comment add Performed By: #### F ER, [id number], FE and TIBC, MG #### [address] Leukocyte esterase Test strip Ql (U) Negative Normal Negative [facility] Comment on above: Order Comment: Comme nt add Comment add Performed By: #### F ER, [id number], FE and TIBC, MG #### [address] Nitrite,Urine Negative Normal Negative [facility] Comment on above: Order Comment: Comme nt add Comment add Performed By: #### F ER, [id number], FE and TIBC, MG #### [address] Occult Blood,Urine Negative Normal Negative [facility] Comment on above: Order Comment: Comme nt add Comment add Result Comment: PERF ORMED BY: [place] [address] PATHOLOGIST IMPREGNATOR TERESA PATTERSON M.D. Performed By: #### F ER, [id number], FE and TIBC, MG #### [address] pH (U) 5.5 [pH] Normal 5.0-9.0 [facility] Comment on above: Order Comment: Comme nt add Comment add Performed By: #### F ER, [id number], FE and TIBC, MG #### [facility] [address] Protein,Urine Negative Normal Negative [facility] Comment on above: Order Comment: Comme nt add Comment add Performed By: #### F ER, [id number], FE and TIBC, MG #### [facility] [address] Specificy [place],Urine 1.014 Normal 1.001-1.03 0 [facility] Comment on above: Order Comment: Comme nt add Comment add Performed By: #### F ER, [id number], FE and TIBC, MG #### [facility] [address] Urobilinogen,Urine Normal Normal Normal [facility] Comment on above: Order Comment: Comme nt add Comment add Performed By: #### F ER, [id number], FE and TIBC, MG #### [facility] [address] Urine clarity by refractomet ry automatedOrdered By: Jose Martin Sen on 11-07-2022 Clarity Refractometry automated (U) Clear Clear [facility] Urine glucose measurement by automated test strip (mass/volume)Ordered By: Jose Martin Sen on 11-07-2022 Glucose Auto test strip (U) [Mass/Vol] Normal mg/dL Normal [facility] Urine hemoglobin detection b y automated test stripOrdered By: Jose Martin Sen on 11-07-2022 Hemoglobin Auto test strip Ql (U) Negative Negative [facility] Urine leukocyte esterase det ection by automated test stripOrdered By: Jose Martin Sen on 11-07-2022 Leukocyte esterase Auto test strip Ql (U) Negative Negative [facility] Urobilinogen Auto test strip (U) [Mass/Vol]Ordered By: Jose Martin Sen on 11-07-2022 Urobilinogen (U) [Mass/Vol] Normal mg/dL Normal [facility] pH Auto test strip (U)Ordere d By: Jose Martin Sen on 11-07-2022 pH (U) 5.5 [pH] 5.0-9.0 [facility] Basic Metabolic Panelon 10-27 Anion gap [Moles/Vol] 11.0 mmol/L Normal 6.0-15.0 [facility] Comment on above: Performed By: #### F ER, [id number], FE and TIBC, MG #### [facility] [address] Calcium [Mass/Vol] 9.2 mg/dL Normal 8.6-10.3 [facility] Comment on above: Performed By: #### F ER, [id number], FE and TIBC, MG #### [facility] [address] Chloride [Moles/Vol] 105 mmol/L Normal 98-107 [facility] Comment on above: Performed By: #### F ER, [id number], FE and TIBC, MG #### [facility] [address] CO2 [Moles/Vol] 24.3 mmol/L Normal 21.0-31.0 [facility] Comment on above: Performed By: #### F ER, [id number], FE and TIBC, MG #### [facility] [address] Creatinine [Mass/Vol] 1.14 mg/dL Normal 0.70-1.30 [facility] Comment on above: Performed By: #### F ER, [id number], FE and TIBC, MG #### [facility] [address] [place] [address] [place] Creatinine Clr Calc Pharmacy 63.15 Normal [facility] Comment on above: Result Comment: PERF ORMED BY: [place] [address] PATHOLOGIST IMPREGNATOR TERESA PATTERSON M.D. Performed By: #### F ER, [id number], FE and TIBC, MG #### [facility] [address] [place] [address] [place] GFR/1.73 sq M.predicted MDRD (S/P/Bld) [Vol rate/Area] mL/min/{1.73_m2} Normal [facility] Comment on above: Performed By: #### F ER, [id number], FE and TIBC, MG #### [address] Glucose [Mass/Vol] 104 mg/dL High 70-100 [facility] Comment on above: Result Comment: [place] Glucose Reference Range is dependent on time and content of last meal. Glucose of more than 200 mg/dL in a nonstressed, ambulatory subject supports the diagnosis of Diabetes Mellitus. ADA recommended reference range Performed By: #### F ER, [id number], FE and TIBC, MG #### [address] Potassium [Moles/Vol] 3.3 mmol/L Low 3.5-5.1 [facility] Comment on above: Performed By: #### F ER, [id number], FE and TIBC, MG #### [address] Sodium [Moles/Vol] 137 mmol/L Normal 136-145 [facility] Comment on above: Performed By: #### F ER, [id number], FE and TIBC, MG #### [address] Urea nitrogen [Mass/Vol] 35 mg/dL High 7-25 [facility] Comment on above: Performed By: #### F ER, [id number], FE and TIBC, MG #### [address] Basic Metabolic Panelon 09-1 0-2022 Anion gap [Moles/Vol] 11.0 mmol/L Normal 6.0-15.0 [facility] Comment on above: Performed By: #### B MP, CBC #### [address] Calcium [Mass/Vol] 9.3 mg/dL Normal 8.6-10.3 [facility] Comment on above: Performed By: #### B MP, CBC #### [facility] [address] Chloride [Moles/Vol] 105 mmol/L Normal 98-107 [facility] Comment on above: Performed By: #### B MP, CBC #### [facility] [address] CO2 [Moles/Vol] 23.1 mmol/L Normal 21.0-31.0 [facility] Comment on above: Performed By: #### B MP, CBC #### [facility] [address] Creatinine [Mass/Vol] 1.42 mg/dL High 0.70-1.30 [facility] Comment on above: Performed By: #### B MP, CBC #### [address] Creatinine Clr Calc Pharmacy 50.69 Normal [facility] Comment on above: Result Comment: PERF ORMED BY: [place] [address] PATHOLOGIST IMPREGNATOR TERESA PATTERSON M.D. Performed By: #### B MP, CBC #### [place] [address] [place] GFR/1.73 sq M.predicted MDRD (S/P/Bld) [Vol rate/Area] 53.489 mL/min/{1.73_m2} Normal [facility] Comment on above: Performed By: #### B MP, CBC #### [facility] [address] [place] [address] Glucose [Mass/Vol] 100 mg/dL Normal 70-100 [facility] Comment on above: Result Comment: [place] Glucose Reference Range is dependent on time and content of last meal. Glucose of more than 200 mg/dL in a nonstressed, ambulatory subject supports the diagnosis of Diabetes Mellitus. ADA recommended reference range Performed By: #### B MP, CBC #### [address] Potassium [Moles/Vol] 3.1 mmol/L Low 3.5-5.1 [facility] Comment on above: Performed By: #### B MP, CBC #### [facility] [address] Sodium [Moles/Vol] 136 mmol/L Normal 136-145 [facility] Comment on above: Performed By: #### B MP, CBC #### [facility] [address] Urea nitrogen [Mass/Vol] 37 mg/dL High 7-25 [facility] Comment on above: Performed By: #### B MP, CBC #### [facility] [address] Basic Metabolic Panelon 09-0 Anion gap [Moles/Vol] 12.5 mmol/L Normal 6.0-15.0 [facility] Comment on above: Performed By: #### F ER, [id number], FE and TIBC, MG #### [address] Calcium [Mass/Vol] 9.3 mg/dL Normal 8.6-10.3 [facility] Comment on above: Performed By: #### F ER, [id number], FE and TIBC, MG #### [address] Chloride [Moles/Vol] 104 mmol/L Normal 98-107 [facility] Comment on above: Performed By: #### F ER, [id number], FE and TIBC, MG #### [address] CO2 [Moles/Vol] 23.7 mmol/L Normal 21.0-31.0 [facility] Comment on above: Performed By: #### F ER, [id number], FE and TIBC, MG #### [address] Creatinine [Mass/Vol] 1.26 mg/dL Normal 0.70-1.30 [facility] Comment on above: Performed By: #### F ER, [id number], FE and TIBC, MG #### [facility] [address] Creatinine Clr Calc Pharmacy 58.54 [facility] Comment on above: Performed By: #### F ER, [id number], FE and TIBC, MG #### [facility] [address] GFR/1.73 sq M.predicted MDRD (S/P/Bld) [Vol rate/Area] mL/min/{1.73_m2} [facility] Comment on above: Performed By: #### F ER, [id number], FE and TIBC, MG #### [address] Glucose [Mass/Vol] 102 mg/dL High 70-100 [facility] Comment on above: Result Comment: [facility] Glucose Reference Range is dependent on time and content of last meal. Glucose of more than 200 mg/dL in a nonstressed, ambulatory subject supports the diagnosis of Diabetes Mellitus. ADA recommended reference range Performed By: #### F ER, [id number], FE and TIBC, MG #### [facility] [address] [place] [address] Potassium [Moles/Vol] 3.2 mmol/L Low 3.5-5.1 [facility] Comment on above: Performed By: #### F ER, [id number], FE and TIBC, MG #### [facility] [address] Sodium [Moles/Vol] 137 mmol/L Normal 136-145 [facility] Comment on above: Performed By: #### F ER, [id number], FE and TIBC, MG #### [facility] [address] Urea nitrogen [Mass/Vol] 29 mg/dL High 7-25 [facility] Comment on above: Performed By: #### F ER, [id number], FE and TIBC, MG #### [facility] [address] Magnesiumon 11-04-2022 Magnesium [Mass/Vol] 2.0 mg/dL Normal 1.9-2.7 [facility] Comment on above: Result Comment: PERF ORMED BY: [facility] [address] [place] [address] PATHOLOGIST IMPREGNATOR TERESA PATTERSON M.D. Performed By: #### F ER, [id number], FE and TIBC, MG #### [facility] [address] [place] [id number] [facility] Magnesium [Mass/volume] in S shani or PlasmaOrdered By: Sara Osorio on 11-04-2022 Magnesium [Mass/Vol] 2.0 mg/dL 1.9-2.7 [facility] Alanine aminotransferase [En zymatic activity/volume] in Serum or PlasmaOrdered By: Janice Altamirano on 11-03-2022 ALT [Catalytic activity/Vol] 17 U/L 7-52 [facility] Albumin [Mass/volume] in Ser um or Plasma by Bromocresol green (BCG) dye binding methoOrdered By: Janice Altamirano on 11-03-2022 Albumin BCG dye [Mass/Vol] 4.5 g/dL 3.5-5.7 [facility] Alkaline phosphatase [Enzyma tic activity/volume] in Serum or PlasmaOrdered By: Janice Altamirano on 11-03-2022 ALP [Catalytic activity/Vol] 64 U/L 34-104 [facility] Anisocytosis LM Ql (Bld)Orde red By: Janice Altamirano on 11-03-2022 Anisocytosis Ql (Bld) Slight Fir [facility] Aspartate aminotransferase [ Enzymatic activity/volume] in Serum or PlasmaOrdered By: Janice Altamirano on 11-03-2022 AST [Catalytic activity/Vol] 19 U/L 13-39 [facility] Bilirubin.total [Mass/volume ] in Serum or PlasmaOrdered By: Janice Altamirano on 11-03-2022 Bilirubin [Mass/Vol] 1.6 mg/dL 0.3-1.0 [facility] Comment on above: Samples from patient s who have taken Naproxen have shown spurious elevation in Total Bilirubin levels. A metabolite of Naproxen, O-desmethylnaproxen, has been shown to interfere with the Jendrassik-Grof method for measuring Total Bilirubin. Comprehensive Metabolic Pane nitza 11-03-2022 Albumin [Mass/Vol] 4.5 g/dL Normal 3.5-5.7 [facility] Comment on above: Performed By: #### S CAN CBC, PAB, CMP #### [facility] [address] Albumin/Globulin [Mass ratio] 1.5 {ratio} Normal [facility] Comment on above: Performed By: #### S CAN CBC, PAB, CMP #### [facility] [address] ALP [Catalytic activity/Vol] 64 U/L Normal 34-104 [facility] Comment on above: Performed By: #### S CAN CBC, PAB, CMP #### [facility] [address] ALT [Catalytic activity/Vol] 17 U/L Normal 7-52 [facility] Comment on above: Performed By: #### S CAN CBC, PAB, CMP #### [facility] [address] Anion gap [Moles/Vol] 10.1 mmol/L Normal 6.0-15.0 [facility] Comment on above: Performed By: #### S CAN CBC, PAB, CMP #### [facility] [address] [place] [address] [place] AST [Catalytic activity/Vol] 19 U/L Normal 13-39 [facility] Comment on above: Performed By: #### S CAN CBC, PAB, CMP #### [facility] [address] [place] [address] [place] Bilirubin [Mass/Vol] 1.6 mg/dL High 0.3-1.0 [facility] Comment on above: Result Comment: Samp les from patients who have taken Naproxen have shown spurious elevation in Total Bilirubin levels. A metabolite of Naproxen, O-desmethylnaproxen, has been shown to interfere with the Jendrassik-Grof method for measuring Total Bilirubin. Performed By: #### S CAN CBC, PAB, CMP #### [facility] [address] Calcium [Mass/Vol] 9.6 mg/dL Normal 8.6-10.3 [facility] Comment on above: Performed By: #### S CAN CBC, PAB, CMP #### [facility] [address] [place] [address] [place] Chloride [Moles/Vol] 102 mmol/L Normal 98-107 [facility] Comment on above: Performed By: #### S CAN CBC, PAB, CMP #### [facility] [address] CO2 [Moles/Vol] 28.3 mmol/L Normal 21.0-31.0 [facility] Comment on above: Performed By: #### S CAN CBC, PAB, CMP #### [facility] [address] Creatinine [Mass/Vol] 1.21 mg/dL Normal 0.70-1.30 [facility] Comment on above: Performed By: #### S CAN CBC, PAB, CMP #### [facility] [address] [place] [address] [place] Creatinine Clr Calc Pharmacy 60.96 [facility] Comment on above: Performed By: #### S CAN CBC, PAB, CMP #### [facility] [address] [place] [address] [place] GFR/1.73 sq M.predicted MDRD (S/P/Bld) [Vol rate/Area] mL/min/{1.73_m2} [facility] Comment on above: Performed By: #### S CAN CBC, PAB, CMP #### [facility] [address] [place] [address] [place] Globulin (S) [Mass/Vol] 3.1 g/dL [facility] Comment on above: Performed By: #### S CAN CBC, PAB, CMP #### [facility] [address] [place] [address] [place] Glucose [Mass/Vol] 95 mg/dL Normal 70-100 [facility] Comment on above: Result Comment: [place] Glucose Reference Range is dependent on time and content of last meal. Glucose of more than 200 mg/dL in a nonstressed, ambulatory subject supports the diagnosis of Diabetes Mellitus. ADA recommended reference range Performed By: #### S CAN CBC, PAB, CMP #### [facility] [address] Potassium [Moles/Vol] 3.4 mmol/L Low 3.5-5.1 [facility] Comment on above: Performed By: #### S CAN CBC, PAB, CMP #### [facility] [address] Protein [Mass/Vol] 7.6 g/dL Normal 6.4-8.9 [facility] Comment on above: Performed By: #### S CAN CBC, PAB, CMP #### [facility] [address] Sodium [Moles/Vol] 137 mmol/L Normal 136-145 [facility] Comment on above: Performed By: #### S CAN CBC, PAB, CMP #### [facility] [address] Urea nitrogen [Mass/Vol] 23 mg/dL Normal 7-25 [facility] Comment on above: Performed By: #### S CAN CBC, PAB, CMP #### [facility] [address] Globulin Calc (S) [Mass/Vol] Ordered By: Janice Altamirano on 11-03-2022 Globulin (S) [Mass/Vol] 3.1 g/dL [facility] Microcytes LM Ql (Bld)Ordere d By: Janice Altamirano on 11-03-2022 Microcytes Ql (Bld) Slight [facility] Platelet adequacy [Presence] in Blood by Light microscopyOrdered By: Janice Altamirano on 11-03-2022 Platelets LM Ql (Bld) Normal Normal [facility] Platelet morphology finding [Identifier] in BloodOrdered By: Janice Altamirano on 11-03-2022 Platelet morphology finding Nom (Bld) Normal Normal [facility] Potassiumon 11-03-2022 Potassium [Moles/Vol] 3.4 mmol/L Low 3.5-5.1 [facility] Comment on above: Result Comment: PERF ORMED BY: [place] [address] PATHOLOGIST IMPREGNATOR TERESA PATTERSON M.D. Performed By: #### K #### [facility] [address] [place] [address] Prealbuminon 11-03-2022 Prealbumin [Mass/Vol] 28.1 mg/dL Normal 17.0-34.0 [facility] Comment on above: Result Comment: PERF ORMED BY: [place] [address] PATHOLOGIST IMPREGNATOR TERESA PATTERSON M.D. Performed By: #### S CAN CBC, PAB, CMP #### [facility] [address] [place] [address] Prealbumin [Mass/volume] in Serum or PlasmaOrdered By: Janice Altamirano on 11-03-2022 Prealbumin [Mass/Vol] 28.1 mg/dL 17.0-34.0 [facility] Protein [Mass/volume] in Ser um or PlasmaOrdered By: Janice Altamirano on 11-03-2022 Protein [Mass/Vol] 7.6 g/dL 6.4-8.9 [facility] RBC morphologyOrdered By: Twan Altamirano on 11-03-2022 RBC morphology finding Nom (Bld) N/A [facility] Scan and CBCon 11-03-2022 Anisocytosis Ql (Bld) Slight Normal [facility] Comment on above: Performed By: #### B MP, CBC #### [facility] [address] [place] [address] Basophils (Bld) [#/Vol] 0.1 10*3/uL Normal 0.0-0.2 [facility] Comment on above: Performed By: #### B MP, CBC #### [facility] [address] [place] [address] [place] Basophils/100 WBC (Bld) 0.8 % Normal . [facility] Comment on above: Performed By: #### B MP, CBC #### [facility] [address] [address] Eosinophils (Bld) [#/Vol] 0.1 10*3/uL Normal 0.0-0.45 [facility] Comment on above: Performed By: #### B MP, CBC #### [facility] [address] Eosinophils/100 WBC (Bld) 0.8 % Normal . [facility] Comment on above: Performed By: #### B MP, CBC #### [address] Erythrocyte distribution width (RBC) [Ratio] 14.3 % Normal 12.0-14.8 [facility] Comment on above: Performed By: #### B MP, CBC #### [address] Hematocrit (Bld) [Volume fraction] 49.6 % Normal 38.8-50.0 [facility] Comment on above: Performed By: #### B MP, CBC #### [address] Hemoglobin (Bld) [Mass/Vol] 17.4 g/dL High 13.0-17.0 [facility] Comment on above: Performed By: #### B MP, CBC #### [address] Lymphocytes (Bld) [#/Vol] 3.0 10*3/uL Normal 1.00-4.8 [facility] Comment on above: Performed By: #### B MP, CBC #### [address] Lymphocytes/100 WBC (Bld) 21.6 % Normal . [facility] Comment on above: Performed By: #### B MP, CBC #### [address] MCH (RBC) [Entitic mass] 30.8 pg Normal 27.5-35.2 [facility] Comment on above: Performed By: #### B MP, CBC #### [address] MCV (RBC) [Entitic vol] 87.9 fL Normal 83.5-101 [facility] Comment on above: Performed By: #### B MP, CBC #### [address] Mean Corpuscular HGB Conc 35.0 g/dL Normal 32.5-35.6 [facility] Comment on above: Performed By: #### B MP, CBC #### [address] Microcytosis Slight Normal [facility] Comment on above: Performed By: #### B MP, CBC #### [address] Monocytes (Bld) [#/Vol] 1.7 10*3/uL High 0.0-0.8 [facility] Comment on above: Performed By: #### B MP, CBC #### [address] Monocytes/100 WBC (Bld) 12.2 % Normal . [facility] Comment on above: Performed By: #### B MP, CBC #### [address] Neutrophils (Bld) [#/Vol] 8.9 10*3/uL High 1.8-7.7 [facility] Comment on above: Performed By: #### B MP, CBC #### [address] Neutrophils/100 WBC (Bld) 64.6 % Normal . [facility] Comment on above: Performed By: #### B MP, CBC #### [address] NRBC% 0.0 /100{WBC} Normal 0-0.5 [facility] Comment on above: Performed By: #### B MP, CBC #### [address] Platelet Estimate Normal Normal Normal [facility] Comment on above: Performed By: #### B MP, CBC #### [address] Platelet mean volume (Bld) [Entitic vol] 8.7 fL Normal 6.6-10.1 [facility] Comment on above: Performed By: #### B MP, CBC #### [address] Platelet Morphology Normal Normal Normal [facility] Comment on above: Result Comment: PERF ORMED BY: [place] [address] PATHOLOGIST IMPREGNATOR TERESA PATTERSON M.D. Performed By: #### B MP, CBC #### [address] Platelets (Bld) [#/Vol] 191 10*3/uL Normal 150-450 [facility] Comment on above: Performed By: #### B MP, CBC #### [address] RBC (Bld) [#/Vol] 5.65 10*6/uL High 3.90-5.60 [facility] Comment on above: Performed By: #### B MP, CBC #### [address] WBC (Bld) [#/Vol] 13.7 10*3/uL High 4.1-10.5 [facility] Comment on above: Performed By: #### B MP, CBC #### [address] Serum or plasma albumin/glob ulin mass ratioOrdered By: Janice Altamirano on 11-03-2022 Albumin/Globulin [Mass ratio] 1.5 {ratio} [facility] Stool Cultureon 11-03-2022 Stool culture Comment add to colle cted stool sample Negative for Shiga Toxin 1 Negative for Shiga Toxin 2 -- A negative Shiga Toxin result may occur if the antigen level in the specimen is below the detection limit of the assay. Stool culture results No Salmonella, Shigella, Campy or E. coli [id number] Isolated PERFORMED BY: [place] [address] PATHOLOGIST IMPREGNATOR TERESA PATTERSON M.D. Normal [facility] Comment on above: Performed By: #### C USTOOL #### [address] Stool bacteria identificatio n by cultureOrdered By: Sara Osorio on 11-03-2022 Bacteria identified Cx Nom (Stl) [facility] Basic Metabolic Panelon 09-0 Anion gap [Moles/Vol] 13.3 mmol/L Normal 6.0-15.0 [facility] Comment on above: Performed By: #### F ER, [id number], FE and TIBC, MG #### [facility] [address] [place] [address] Calcium [Mass/Vol] 9.5 mg/dL Normal 8.6-10.3 [facility] Comment on above: Performed By: #### F ER, [id number], FE and TIBC, MG #### [facility] [address] [place] [address] [place] Chloride [Moles/Vol] 103 mmol/L Normal 98-107 [facility] Comment on above: Performed By: #### F ER, [id number], FE and TIBC, MG #### [address] CO2 [Moles/Vol] 24.9 mmol/L Normal 21.0-31.0 [facility] Comment on above: Performed By: #### F ER, [id number], FE and TIBC, MG #### [facility] [address] Creatinine [Mass/Vol] 1.10 mg/dL Normal 0.70-1.30 [facility] Comment on above: Performed By: #### F ER, [id number], FE and TIBC, MG #### [facility] [address] [place] [address] [place] Creatinine Clr Calc Pharmacy 67.50 [facility] Comment on above: Result Comment: PERF ORMED BY: [facility] [address] [place] [address] PATHOLOGIST IMPREGNATOR TERESA PATTERSON M.D. Performed By: #### F ER, [id number], FE and TIBC, MG #### [facility] [address] [place] [address] [place] GFR/1.73 sq M.predicted MDRD (S/P/Bld) [Vol rate/Area] mL/min/{1.73_m2} [facility] Comment on above: Performed By: #### F ER, [id number], FE and TIBC, MG #### [facility] [address] Glucose [Mass/Vol] 114 mg/dL High 70-100 [facility] Comment on above: Result Comment: [place] Glucose Reference Range is dependent on time and content of last meal. Glucose of more than 200 mg/dL in a nonstressed, ambulatory subject supports the diagnosis of Diabetes Mellitus. ADA recommended reference range Performed By: #### F ER, [id number], FE and TIBC, MG #### [facility] [address] Potassium [Moles/Vol] 3.2 mmol/L Low 3.5-5.1 [facility] Comment on above: Performed By: #### F ER, [id number], FE and TIBC, MG #### [facility] [address] Sodium [Moles/Vol] 138 mmol/L Normal 136-145 [facility] Comment on above: Performed By: #### F ER, [id number], FE and TIBC, MG #### [facility] [address] Urea nitrogen [Mass/Vol] 20 mg/dL Normal 7-25 [facility] Comment on above: Performed By: #### F ER, [id number], FE and TIBC, MG #### [facility] [address] Basophils Auto (Bld) [#/Vol] Ordered By: [facility] on 11-02-2022 Basophils (Bld) [#/Vol] 0.1 10*3/uL 0.0-0.2 [facility] Basophils/100 WBC Auto (Bld) Ordered By: [facility] on 11-02-2022 Basophils/100 WBC (Bld) 0.8 % . [facility] Calcium [Mass/volume] in Ser um or PlasmaOrdered By: [facility] on 11-02-2022 Calcium [Mass/Vol] 9.5 mg/dL 8.6-10.3 [facility] Carbon dioxide, total [Moles /volume] in Serum or PlasmaOrdered By: [facility] on 11-02-2022 CO2 [Moles/Vol] 24.9 mmol/L 21.0-31.0 [facility] Chloride [Moles/volume] in S shani or PlasmaOrdered By: [facility] on 11-02-2022 Chloride [Moles/Vol] 103 mmol/L 98-107 [facility] Complete Blood Count Auto Di ffon 11-02-2022 Basophils (Bld) [#/Vol] 0.1 10*3/uL Normal 0.0-0.2 [facility] Comment on above: Result Comment: PERF ORMED BY: [place] [address] PATHOLOGIST IMPREGNATOR TERESA PATTERSON M.D. Performed By: #### F ER, [id number], FE and TIBC, MG #### [facility] [address] [place] [address] Basophils/100 WBC (Bld) 0.8 % Normal . [facility] Comment on above: Performed By: #### F ER, [id number], FE and TIBC, MG #### [address] Eosinophils (Bld) [#/Vol] 0.0 10*3/uL Normal 0.0-0.45 [facility] Comment on above: Performed By: #### F ER, [id number], FE and TIBC, MG #### [address] Eosinophils/100 WBC (Bld) 0.1 % Normal . [facility] Comment on above: Performed By: #### F ER, [id number], FE and TIBC, MG #### [address] Erythrocyte distribution width (RBC) [Ratio] 14.5 % Normal 12.0-14.8 [facility] Comment on above: Performed By: #### F ER, [id number], FE and TIBC, MG #### [address] Hematocrit (Bld) [Volume fraction] 47.6 % Normal 38.8-50.0 [facility] Comment on above: Performed By: #### F ER, [id number], FE and TIBC, MG #### [address] Hemoglobin (Bld) [Mass/Vol] 16.8 g/dL Normal 13.0-17.0 [facility] Comment on above: Performed By: #### F ER, [id number], FE and TIBC, MG #### [address] Lymphocytes (Bld) [#/Vol] 2.6 10*3/uL Normal 1.00-4.8 [facility] Comment on above: Performed By: #### F ER, [id number], FE and TIBC, MG #### [address] Lymphocytes/100 WBC (Bld) 18.5 % Normal . [facility] Comment on above: Performed By: #### F ER, [id number], FE and TIBC, MG #### [address] MCH (RBC) [Entitic mass] 30.8 pg Normal 27.5-35.2 [facility] Comment on above: Performed By: #### F ER, [id number], FE and TIBC, MG #### [address] MCV (RBC) [Entitic vol] 86.9 fL Normal 83.5-101 [facility] Comment on above: Performed By: #### F ER, [id number], FE and TIBC, MG #### [address] Mean Corpuscular HGB Conc 35.4 g/dL Normal 32.5-35.6 [facility] Comment on above: Performed By: #### F ER, [id number], FE and TIBC, MG #### [address] Monocytes (Bld) [#/Vol] 1.3 10*3/uL High 0.0-0.8 [facility] Comment on above: Performed By: #### F ER, [id number], FE and TIBC, MG #### [address] Monocytes/100 WBC (Bld) 9.2 % Normal . [facility] Comment on above: Performed By: #### F ER, [id number], FE and TIBC, MG #### [address] Neutrophils (Bld) [#/Vol] 10.2 10*3/uL High 1.8-7.7 [facility] Comment on above: Performed By: #### F ER, [id number], FE and TIBC, MG #### [address] Neutrophils/100 WBC (Bld) 71.4 % Normal . [facility] Comment on above: Performed By: #### F ER, [id number], FE and TIBC, MG #### [facility] [address] NRBC% 0.2 /100{WBC} Normal 0-0.5 [facility] Comment on above: Performed By: #### F ER, [id number], FE and TIBC, MG #### [address] Platelet mean volume (Bld) [Entitic vol] 8.7 fL Normal 6.6-10.1 [facility] Comment on above: Performed By: #### F ER, [id number], FE and TIBC, MG #### [address] Platelets (Bld) [#/Vol] 203 10*3/uL Normal 150-450 [facility] Comment on above: Performed By: #### F ER, [id number], FE and TIBC, MG #### [address] RBC (Bld) [#/Vol] 5.47 10*6/uL Normal 3.90-5.60 [facility] Comment on above: Performed By: #### F ER, [id number], FE and TIBC, MG #### [address] WBC (Bld) [#/Vol] 14.3 10*3/uL High 4.1-10.5 [facility] Comment on above: Performed By: #### F ER, [id number], FE and TIBC, MG #### [address] Creatinine [Mass/volume] in Serum or PlasmaOrdered By: John Garcia on 11-02-2022 Creatinine [Mass/Vol] 1.10 mg/dL 0.70-1.30 [facility] Eosinophils Auto (Bld) [#/Vo l]Ordered By: John Garcia on 11-02-2022 Eosinophils (Bld) [#/Vol] 0.0 10*3/uL 0.0-0.45 [facility] Eosinophils/100 WBC Auto (Bl d)Ordered By: John Garcia on 11-02-2022 Eosinophils/100 WBC (Bld) 0.1 % . [facility] Erythrocyte distribution wid th Auto (RBC) [Ratio]Ordered By: John Garcia on 11-02-2022 Erythrocyte distribution width (RBC) [Ratio] 14.5 % 12.0-14.8 [facility] Glucose [Mass/volume] in Ser um or PlasmaOrdered By: John Garcia on 11-02-2022 Glucose [Mass/Vol] 114 mg/dL 70-100 [facility] Comment on above: ADA recommended refe rence rangeRandom Glucose Reference Range is dependent on time and content of last meal. Glucose of more than 200 mg/dL in a nonstressed, ambulatory subject supports the diagnosis of Diabetes Mellitus. Hematocrit Auto (Bld) [Volum e fraction]Ordered By: John Garcia on 11-02-2022 Hematocrit (Bld) [Volume fraction] 47.6 % 38.8-50.0 [facility] Hemoglobin [Mass/volume] in BloodOrdered By: John Garcia on 11-02-2022 Hemoglobin (Bld) [Mass/Vol] 16.8 g/dL 13.0-17.0 [facility] Leukocytes [#/volume] correc khadra for nucleated erythrocytes in Blood by Automated counOrdered By: John Garcia on 11-02-2022 WBC corrected for nucl RBC Auto (Bld) [#/Vol] 14.3 10*3/uL 4.1-10.5 [facility] Lymphocytes Auto (Bld) [#/Vo l]Ordered By: John Garcia on 11-02-2022 Lymphocytes (Bld) [#/Vol] 2.6 10*3/uL 1.00-4.8 [facility] Lymphocytes/100 WBC Auto (Bl d)Ordered By: John Garcia on 11-02-2022 Lymphocytes/100 WBC (Bld) 18.5 % . [facility] MCH Auto (RBC) [Entitic mass ]Ordered By: John Garcia on 11-02-2022 MCH (RBC) [Entitic mass] 30.8 pg 27.5-35.2 [facility] MCHC Auto (RBC) [Mass/Vol]Or dered By: John RamirezGarcia on 11-02-2022 MCHC (RBC) [Mass/Vol] 35.4 g/dL 32.5-35.6 [facility] MCV Auto (RBC) [Entitic vol] Ordered By: John Ivanhoe on 11-02-2022 MCV (RBC) [Entitic vol] 86.9 fL 83.5-101 [facility] Monocytes Auto (Bld) [#/Vol] Ordered By: John Ivanhoe on 11-02-2022 Monocytes (Bld) [#/Vol] 1.3 10*3/uL 0.0-0.8 [facility] Monocytes/100 WBC Auto (Bld) Ordered By: John Ivanhoe on 11-02-2022 Monocytes/100 WBC (Bld) 9.2 % . [facility] Neutrophils Auto (Bld) [#/Vo l]Ordered By: [facility] on 11-02-2022 Neutrophils (Bld) [#/Vol] 10.2 10*3/uL 1.8-7.7 [facility] Neutrophils/100 WBC Auto (Bl d)Ordered By: John Ivanhoe on 11-02-2022 Neutrophils/100 WBC (Bld) 71.4 % . [facility] No Panel InformationOrdered By: John Ivanhoe on 11-02-2022 Estimated GFR (CKD-EPI) > 60.0 mL/Min [facility] Creatinine Clearance (Chem 67.50 [facility] Nucleated erythrocytes [Pres ence] in Blood by Automated countOrdered By: John Ivanhoe on 11-02-2022 Nucleated RBC Auto Ql (Bld) 0.2 /100{WBC} 0-0.5 [facility] Platelet mean volume Auto (B ld) [Entitic vol]Ordered By: John RamirezGarcia on 11-02-2022 Platelet mean volume (Bld) [Entitic vol] 8.7 fL 6.6-10.1 [facility] Platelets Auto (Bld) [#/Vol] Ordered By: John Garcia on 11-02-2022 Platelets (Bld) [#/Vol] 203 10*3/uL 150-450 [facility] Potassium [Moles/volume] in Serum or PlasmaOrdered By: John Garcia on 11-02-2022 Potassium [Moles/Vol] 3.2 mmol/L 3.5-5.1 [facility] RBC Auto (Bld) [#/Vol]Ordere d By: John RamirezGarcia on 11-02-2022 RBC (Bld) [#/Vol] 5.47 10*6/uL 3.90-5.60 [facility] Serum or plasma anion gap de terminationOrdered By: John Garcia on 11-02-2022 Anion gap [Moles/Vol] 13.3 mmol/L 6.0-15.0 [facility] Sodium [Moles/volume] in Ser um or PlasmaOrdered By: John RamirezGarcia on 11-02-2022 Sodium [Moles/Vol] 138 mmol/L 136-145 [facility] Urea nitrogen [Mass/volume] in Serum or PlasmaOrdered By: John Garcia on 11-02-2022 Urea nitrogen [Mass/Vol] 20 mg/dL 7-25 [facility] WBC Auto (Bld) [#/Vol]Ordere d By: John Garcia on 11-02-2022 WBC (Bld) [#/Vol] 14.3 10*3/uL 4.1-10.5 [facility] Basic Metabolic Panelon Anion gap [Moles/Vol] 13.6 mmol/L Normal 6.0-15.0 [facility] Comment on above: Performed By: #### B MP, CBC #### [address] Calcium [Mass/Vol] 9.5 mg/dL Normal 8.6-10.3 [facility] Comment on above: Performed By: #### B MP, CBC #### [facility] [address] [place] [address] [place] Chloride [Moles/Vol] 105 mmol/L Normal 98-107 [facility] Comment on above: Performed By: #### B MP, CBC #### [facility] [address] CO2 [Moles/Vol] 25.6 mmol/L Normal 21.0-31.0 [facility] Comment on above: Performed By: #### B MP, CBC #### [facility] [address] Creatinine [Mass/Vol] 1.03 mg/dL Normal 0.70-1.30 [facility] Comment on above: Performed By: #### B MP, CBC #### [address] Creatinine Clr Calc Pharmacy 72.09 [facility] Comment on above: Result Comment: PERF ORMED BY: [place] [address] PATHOLOGIST IMPREGNATOR TERESA PATTERSON M.D. Performed By: #### B MP, CBC #### [address] GFR/1.73 sq M.predicted MDRD (S/P/Bld) [Vol rate/Area] mL/min/{1.73_m2} [facility] Comment on above: Performed By: #### B MP, CBC #### [place] [address] [place] Glucose [Mass/Vol] 108 mg/dL High 70-100 [facility] Comment on above: Result Comment: [place] Glucose Reference Range is dependent on time and content of last meal. Glucose of more than 200 mg/dL in a nonstressed, ambulatory subject supports the diagnosis of Diabetes Mellitus. ADA recommended reference range Performed By: #### B MP, CBC #### [place] [address] [place] Potassium [Moles/Vol] 3.2 mmol/L Low 3.5-5.1 [facility] Comment on above: Performed By: #### B MP, CBC #### [address] Sodium [Moles/Vol] 141 mmol/L Normal 136-145 [facility] Comment on above: Performed By: #### B MP, CBC #### [facility] [address] Urea nitrogen [Mass/Vol] 17 mg/dL Normal 7-25 [facility] Comment on above: Performed By: #### B MP, CBC #### [address] Complete Blood Count Auto Di ffon 11-01-2022 Basophils (Bld) [#/Vol] 0.1 10*3/uL Normal 0.0-0.2 [facility] Comment on above: Result Comment: PERF ORMED BY: [place] [address] PATHOLOGIST IMPREGNATOR TERESA PATTERSON M.D. Performed By: #### B MP, CBC #### [address] Basophils/100 WBC (Bld) 0.7 % Normal . [facility] Comment on above: Performed By: #### B MP, CBC #### [address] Eosinophils (Bld) [#/Vol] 0.0 10*3/uL Normal 0.0-0.45 [facility] Comment on above: Performed By: #### B MP, CBC #### [address] Eosinophils/100 WBC (Bld) 0.3 % Normal . [facility] Comment on above: Performed By: #### B MP, CBC #### [address] Erythrocyte distribution width (RBC) [Ratio] 14.0 % Normal 12.0-14.8 [facility] Comment on above: Performed By: #### B MP, CBC #### [facility] [address] Hematocrit (Bld) [Volume fraction] 48.2 % Normal 38.8-50.0 [facility] Comment on above: Performed By: #### B MP, CBC #### [facility] [address] Hemoglobin (Bld) [Mass/Vol] 16.8 g/dL Normal 13.0-17.0 [facility] Comment on above: Performed By: #### B MP, CBC #### [facility] [address] Lymphocytes (Bld) [#/Vol] 3.1 10*3/uL Normal 1.00-4.8 [facility] Comment on above: Performed By: #### B MP, CBC #### [address] Lymphocytes/100 WBC (Bld) 23.0 % Normal . [facility] Comment on above: Performed By: #### B MP, CBC #### [address] MCH (RBC) [Entitic mass] 30.6 pg Normal 27.5-35.2 [facility] Comment on above: Performed By: #### B MP, CBC #### [address] MCV (RBC) [Entitic vol] 87.8 fL Normal 83.5-101 [facility] Comment on above: Performed By: #### B MP, CBC #### [address] Mean Corpuscular HGB Conc 34.8 g/dL Normal 32.5-35.6 [facility] Comment on above: Performed By: #### B MP, CBC #### [address] Monocytes (Bld) [#/Vol] 1.0 10*3/uL High 0.0-0.8 [facility] Comment on above: Performed By: #### B MP, CBC #### [facility] [address] [place] [address] [place] Monocytes/100 WBC (Bld) 7.7 % Normal . [facility] Comment on above: Performed By: #### B MP, CBC #### [facility] [address] Neutrophils (Bld) [#/Vol] 9.2 10*3/uL High 1.8-7.7 [facility] Comment on above: Performed By: #### B MP, CBC #### [facility] [address] Neutrophils/100 WBC (Bld) 68.3 % Normal . [facility] Comment on above: Performed By: #### B MP, CBC #### [facility] [address] NRBC% 0.6 /100{WBC} High 0-0.5 [facility] Comment on above: Performed By: #### B MP, CBC #### [facility] [address] Platelet mean volume (Bld) [Entitic vol] 9.0 fL Normal 6.6-10.1 [facility] Comment on above: Performed By: #### B MP, CBC #### [facility] [address] [place] [address] [place] Platelets (Bld) [#/Vol] 206 10*3/uL Normal 150-450 [facility] Comment on above: Performed By: #### B MP, CBC #### [facility] [address] [place] [address] [place] RBC (Bld) [#/Vol] 5.48 10*6/uL Normal 3.90-5.60 [facility] Comment on above: Performed By: #### B MP, CBC #### [facility] [address] [place] [address] [place] WBC (Bld) [#/Vol] 13.5 10*3/uL High 4.1-10.5 [facility] Comment on above: Performed By: #### B MP, CBC #### [facility] [address] A1C with Estimated Average G renon 10-31-2022 Glucose [Mass/Vol] 128 mg/dL Normal [facility] Comment on above: Result Comment: PERF ORMED BY: [place] [address] PATHOLOGIST IMPREGNATOR TERESA PATTERSON M.D. Performed By: #### F ER, [id number], FE and TIBC, MG #### [facility] [address] HbA1c (Bld) [Mass fraction] 6.1 % High 4.3-5.6 [facility] Comment on above: Result Comment: Incr eased risk for diabetes: 5.7 - 6.4 diabetes: >6.4 glycemic control for adults with diabetes: <7.0 Performed By: #### F ER, [id number], FE and TIBC, MG #### [facility] [address] Basic Metabolic Panelon Anion gap [Moles/Vol] 12.4 mmol/L Normal 6.0-15.0 [facility] Comment on above: Performed By: #### B MP, CBC #### [facility] [address] Calcium [Mass/Vol] 9.3 mg/dL Normal 8.6-10.3 [facility] Comment on above: Performed By: #### B MP, CBC #### [facility] [address] [place] [address] [place] Chloride [Moles/Vol] 105 mmol/L Normal 98-107 [facility] Comment on above: Performed By: #### B MP, CBC #### [facility] [address] CO2 [Moles/Vol] 23.8 mmol/L Normal 21.0-31.0 [facility] Comment on above: Performed By: #### B MP, CBC #### [facility] [address] Creatinine [Mass/Vol] 0.88 mg/dL Normal 0.70-1.30 [facility] Comment on above: Performed By: #### B MP, CBC #### [facility] [address] [place] [address] [place] Creatinine Clr Calc Pharmacy 84.38 Normal [facility] Comment on above: Result Comment: PERF ORMED BY: [place] [address] PATHOLOGIST IMPREGNATOR TERESA PATTERSON M.D. Performed By: #### B MP, CBC #### [place] [address] [place] GFR/1.73 sq M.predicted MDRD (S/P/Bld) [Vol rate/Area] mL/min/{1.73_m2} Normal [facility] Comment on above: Performed By: #### B MP, CBC #### [address] Glucose [Mass/Vol] 110 mg/dL High 70-100 [facility] Comment on above: Result Comment: [facility] Glucose Reference Range is dependent on time and content of last meal. Glucose of more than 200 mg/dL in a nonstressed, ambulatory subject supports the diagnosis of Diabetes Mellitus. ADA recommended reference range Performed By: #### B MP, CBC #### [place] [address] [place] Potassium [Moles/Vol] 3.2 mmol/L Low 3.5-5.1 [facility] Comment on above: Performed By: #### B MP, CBC #### [place] [address] [place] Sodium [Moles/Vol] 138 mmol/L Normal 136-145 [facility] Comment on above: Performed By: #### B MP, CBC #### [place] [address] [place] Urea nitrogen [Mass/Vol] 12 mg/dL Normal 7-25 [facility] Comment on above: Performed By: #### B MP, CBC #### [facility] [address] [place] [address] [facility] [address] angio neckon 10-31-2022 CT angio neck [facility] [address] [place] [address] [place] [id number] Scan Report Signed Patient: Viraj Doherty MR#: [id number] : 1955 Acct:[id number] Age/Sex: 67 / M ADM Date: 10/30/22 Loc: Room: [address] [place] [address] Type: ADM IN Attending Dr: Davey Harding MD Copies to: MD Nolberto Woodward MD Ordering Provider: Nolberto Hernandez MD Date of Service: 10/30/22 CT/CT angio head: [facility] ([id number]) CT/CT angio neck: [facility] CTA Head and Neck TECHNIQUE: Axial [...] Delio Tran M.D.10/31/2022 7:42 AM Dictation Location: [place] [address] Transcribed By: [facility] 10/31/2242 Dictated By: Delio Tran DO 10/31/2236 Signed By: 10/31/22 0742 Normal [facility] CT head stroke alert wo cono n 10-31-2022 CT head stroke alert wo con [facility] [address] [place] [address] [place] [address] CT Scan Report Signed Patient: Viraj Doherty MR#: [id number] : 1955 Acct:[id number] Age/Sex: 67 / M ADM Date: 10/30/22 Loc: Room: [address] [place] [address] Type: ADM IN Attending Dr: Davey Harding [...] atrophy and chronic small vessel ischemic changes. [facility] preliminary report completed 10/30/2022 at 7:34 PM Impression dictated by: Delio Tran M.D.10/31/2022 7:35 AM Dictation Location: [place] [address] Transcribed By: [facility] 10/31/22734 Dictated By: Delio Tran DO 10/31/22732 Signed By: 10/31/22734 Normal [facility] Cholesterol [Mass/volume] in Serum or PlasmaOrdered By: Dunia Bear on 10-31-2022 Cholesterol [Mass/Vol] 244 mg/dL 140-200 [facility] Comment on above: Chol less than 200 m g/dl low riskChol 201-239 mg/dl borderline riskChol 240 mg/dl and greater high risk Cholesterol in LDL Calc [Mas s/Vol]Ordered By: Dunia Bear on 10-31-2022 Cholesterol in LDL [Mass/Vol] 179 mg/dL 0-100 [facility] Comment on above: LDL ATP III CLASSIFI CATIONLDL less than 100 mg/dL OptimalLDL 100-129 mg/dL Near or above optimalLDL 130-159 mg/dL Borderline highLDL 160-189 mg/dL HighLDL greater than 189 mg/dL Very high Cholesterol in VLDL Calc [Ma ss/Vol]Ordered By: Dunia Bear on 10-31-2022 Cholesterol in VLDL [Mass/Vol] 25 mg/dL [facility] Complete Blood Count Auto Di ffon 10-31-2022 Basophils (Bld) [#/Vol] 0.1 10*3/uL Normal 0.0-0.2 [facility] Comment on above: Result Comment: PERF ORMED BY: [place] [address] PATHOLOGIST IMPREGNATOR TERESA PATTERSON M.D. Performed By: #### B MP, CBC #### [facility] [address] [place] [address] [place] Basophils/100 WBC (Bld) 1.0 % Normal . [facility] Comment on above: Performed By: #### B MP, CBC #### [facility] [address] [place] [address] [place] Eosinophils (Bld) [#/Vol] 0.1 10*3/uL Normal 0.0-0.45 [facility] Comment on above: Performed By: #### B MP, CBC #### [facility] [address] Eosinophils/100 WBC (Bld) 0.7 % Normal . [facility] Comment on above: Performed By: #### B MP, CBC #### [facility] [address] Erythrocyte distribution width (RBC) [Ratio] 14.2 % Normal 12.0-14.8 [facility] Comment on above: Performed By: #### B MP, CBC #### [facility] [address] Hematocrit (Bld) [Volume fraction] 46.5 % Normal 38.8-50.0 [facility] Comment on above: Performed By: #### B MP, CBC #### [facility] [address] Hemoglobin (Bld) [Mass/Vol] 16.3 g/dL Normal 13.0-17.0 [facility] Comment on above: Performed By: #### B MP, CBC #### [address] Lymphocytes (Bld) [#/Vol] 2.6 10*3/uL Normal 1.00-4.8 [facility] Comment on above: Performed By: #### B MP, CBC #### [place] [address] [place] Lymphocytes/100 WBC (Bld) 25.2 % Normal . [facility] Comment on above: Performed By: #### B MP, CBC #### [facility] [address] [place] [address] [place] MCH (RBC) [Entitic mass] 30.7 pg Normal 27.5-35.2 [facility] Comment on above: Performed By: #### B MP, CBC #### [facility] [address] MCV (RBC) [Entitic vol] 87.6 fL Normal 83.5-101 [facility] Comment on above: Performed By: #### B MP, CBC #### [facility] [address] Mean Corpuscular HGB Conc 35.0 g/dL Normal 32.5-35.6 [facility] Comment on above: Performed By: #### B MP, CBC #### [facility] [address] [place] [address] [place] Monocytes (Bld) [#/Vol] 0.9 10*3/uL High 0.0-0.8 [facility] Comment on above: Performed By: #### B MP, CBC #### [facility] [address] [place] [address] [place] Monocytes/100 WBC (Bld) 9.1 % Normal . [facility] Comment on above: Performed By: #### B MP, CBC #### [facility] [address] [place] [address] [place] Neutrophils (Bld) [#/Vol] 6.5 10*3/uL Normal 1.8-7.7 [facility] Comment on above: Performed By: #### B MP, CBC #### [facility] [address] [place] [address] [place] Neutrophils/100 WBC (Bld) 64.0 % Normal . [facility] Comment on above: Performed By: #### B MP, CBC #### [facility] [address] [place] [address] [place] NRBC% 0.6 /100{WBC} High 0-0.5 [facility] Comment on above: Performed By: #### B MP, CBC #### [facility] [address] [place] [id number] [place] Platelet mean volume (Bld) [Entitic vol] 8.7 fL Normal 6.6-10.1 [facility] Comment on above: Performed By: #### B MP, CBC #### [facility] [address] [place] [address] [place] Platelets (Bld) [#/Vol] 192 10*3/uL Normal 150-450 [facility] Comment on above: Performed By: #### B MP, CBC #### [facility] [address] [place] [address] [place] RBC (Bld) [#/Vol] 5.31 10*6/uL Normal 3.90-5.60 [facility] Comment on above: Performed By: #### B MP, CBC #### [facility] [address] WBC (Bld) [#/Vol] 10.2 10*3/uL Normal 4.1-10.5 [facility] Comment on above: Performed By: #### B MP, CBC #### [facility] [address] [place] [address] [place] Dipstick and Microscopicon 0 10-31-2022 Appearance (U) Clear Normal Clear [facility] Comment on above: Order Comment: Name Collection Type:: Clean-Voided Midstream Performed By: #### B MP, CBC #### [address] Bacteria,Urine None Seen Normal None Seen [facility] Comment on above: Order Comment: Name Collection Type:: Clean-Voided Midstream Result Comment: PERF ORMED BY: [place] [address] PATHOLOGIST IMPREGNATOR TERESA PATTERSON M.D. Performed By: #### B MP, CBC #### [place] [address] [place] Bilirubin,Urine Negative Normal Negative [facility] Comment on above: Order Comment: Name Collection Type:: Clean-Voided Midstream Performed By: #### B MP, CBC #### [place] [address] [place] Color (U) Yellow Normal Yellow [facility] Comment on above: Order Comment: Name Collection Type:: Clean-Voided Midstream Performed By: #### B MP, CBC #### [place] [address] [place] Glucose Ql (U) Normal Normal Normal [facility] Comment on above: Order Comment: Name Collection Type:: Clean-Voided Midstream Performed By: #### B MP, CBC #### [facility] [address] [place] [address] [place] Ketones Ql (U) Negative Normal Negative [facility] Comment on above: Order Comment: Name Collection Type:: Clean-Voided Midstream Performed By: #### B MP, CBC #### [address] Leukocyte esterase Test strip Ql (U) Negative Normal Negative [facility] Comment on above: Order Comment: Name Collection Type:: Clean-Voided Midstream Performed By: #### B MP, CBC #### [place] [address] [place] Nitrite,Urine Negative Normal Negative [facility] Comment on above: Order Comment: Name Collection Type:: Clean-Voided Midstream Performed By: #### B MP, CBC #### [address] Occult Blood,Urine 1+ High Negative [facility] Comment on above: Order Comment: Name Collection Type:: Clean-Voided Midstream Result Comment: PERF ORMED BY: [place] [address] PATHOLOGIST IMPREGNATOR TERESA PATTERSON M.D. Performed By: #### B MP, CBC #### [facility] [address] [place] [address] [place] pH (U) 6.0 [pH] Normal 5.0-9.0 [facility] Comment on above: Order Comment: Name Collection Type:: Clean-Voided Midstream Performed By: #### B MP, CBC #### [facility] [address] [place] [address] [place] Protein,Urine Trace High Negative [facility] Comment on above: Order Comment: Name Collection Type:: Clean-Voided Midstream Performed By: #### B MP, CBC #### [place] [address] [place] RBC,Urine 3-4 Normal 0-4 [facility] Comment on above: Order Comment: Name Collection Type:: Clean-Voided Midstream Performed By: #### B MP, CBC #### [facility] [address] [place],Urine > 1.050 High 1.001-1.03 0 [facility] Comment on above: Order Comment: Name Collection Type:: Clean-Voided Midstream Performed By: #### B MP, CBC #### [facility] [address] Squamous Epithelial Cell,Urine Rare Normal 0-2 [facility] Comment on above: Order Comment: Name Collection Type:: Clean-Voided Midstream Performed By: #### B MP, CBC #### [facility] [address] Urobilinogen,Urine Normal Normal Normal [facility] Comment on above: Order Comment: Name Collection Type:: Clean-Voided Midstream Performed By: #### B MP, CBC #### [address] WBC LM.HPF (Urine sed) [#/Area] 0 /[HPF] Normal 0-4 [facility] Comment on above: Order Comment: Name Collection Type:: Clean-Voided Midstream Performed By: #### B MP, CBC #### [address] ECH echo transthoracicon ECH echo transthoracic [facility] [place] [address] Echocardiogram Signed Patient: Viraj Doherty MR#: [id number] : 1955 Acct:[id number] Age/Sex: 67 / M ADM Date: 10/30/22 Loc: Room: [address] [place] [address] Type: ADM IN Attending Dr: Davey Harding MD Ordering Provider: John Garcia DO Date of Service: 10/30/2206/18/2117 ECH/ECH echo transthoracic: Neuro Symptoms/Deficit Copies to: DO Tatiana Tay MD Weight: 168 lb Performed By: Ivon Guzman, RCS BSA: 2.0 m2 BP: 188/97 mmHg HR: [...] 1309 Signed By: Tatiana Miranda MD 10/31/22 4587 [facility] Glucose mean value [Mass/vol ume] in Blood Estimated from glycated hemoglobinOrdered By: Dunia Bear on 10-31-2022 Average glucose Estimated from glycated hemoglobin (Bld) [Mass/Vol] 128 mg/dL [facility] Hemoglobin A1c percentageOrd ered By: Dunia Bear on 10-31-2022 HbA1c (Bld) [Mass fraction] 6.1 % 4.3-5.6 [facility] Comment on above: Increased risk for d iabetes: 5.7 - 6.4diabetes: >6.4glycemic control for adults with diabetes: <7.0 Lipid Panelon 10-31-2022 Cholesterol [Mass/Vol] 244 mg/dL High 140-200 [facility] Comment on above: Order Comment: Comme nt add Comment add Result Comment: Chol less than 200 mg/dl low risk Chol 201-239 mg/dl borderline risk Chol 240 mg/dl and greater high risk Performed By: #### F ER, [id number], FE and TIBC, MG #### [facility] [address] [place] [address] [place] Cholesterol in HDL [Mass/Vol] 39 mg/dL Normal 23-92 [facility] Comment on above: Order Comment: Comme nt add Comment add Result Comment: HDL CHOL ATP-III CLASSIFICATION Cardiovascular Risk HDL > or equal to 60 mg/dL LOW HDL < 40 mg/dL HIGH Performed By: #### F ER, [id number], FE and TIBC, MG #### [facility] [address] [place] [id number] [place] Cholesterol.total/Chol esterol in HDL [Mass ratio] 6.3 {ratio} Normal <5.0 [facility] Comment on above: Order Comment: [place] nt add Comment add Performed By: #### F ER, [id number], FE and TIBC, MG #### [facility] [address] [place] [id number] [place] LDL Cholesterol,Calculated 179 mg/dL High 0-100 [facility] Comment on above: Order Comment: Commsrini nt add Comment add Result Comment: LDL ATP III CLASSIFICATION LDL less than 100 mg/dL Optimal LDL 100-129 mg/dL Near or above optimal LDL 130-159 mg/dL Borderline high LDL 160-189 mg/dL High LDL greater than 189 mg/dL Very high Performed By: #### F ER, [id number], FE and TIBC, MG #### [facility] [address] Triglyceride w/Reflex 129 mg/dL Normal 0-149 [facility] Comment on above: Order Comment: Comme nt add Comment add Result Comment: TRIG ATP III CLASSIFICATION TRIG less than 150 mg/dL Normal TRIG 150-199 mg/dL Borderline high TRIG 200-500 mg/dL High TRIG greater than 500 mg/dL Very high Standard traceable to the Center for Disease Conrtrol and Prevention (CDC) test method. Performed By: #### F ER, [id number], FE and TIBC, MG #### [facility] [address] VLDL CHOLESTEROL 25 mg/dL Normal [facility] Comment on above: Order Comment: Comme nt add Comment add Performed By: #### F ER, [id number], FE and TIBC, MG #### [facility] [address] MR head/brain wo conon 10-31 MR head/brain wo con [facility] [address] [place] [address] [place] [address] MRI Report Signed Patient: Viraj Doherty MR#: [id number] : 1955 Acct:[id number] Age/Sex: 67 / M ADM Date: 10/30/22 Loc: Room: [address] [place] [address] Type: ADM IN Attending Dr: Davey Harding [...] Jha Jr., D.ODiaz10/31/2022 12:51 PM Dictation Location: [place] [address] Transcribed By: [facility] 10/31/22 1251 Dictated By: Jose Martin Jha Jr, DO 10/31/22 1247 Signed By: 10/31/22 1251 Normal [facility] Serum or plasma high density lipoprotein (HDL) cholesterol measurementOrdered By: Dunia Bear on 10-31-2022 Cholesterol in HDL [Mass/Vol] 39 mg/dL [facility] Comment on above: HDL CHOL ATP-III CLA SSIFICATION Cardiovascular RiskHDL > or equal to 60 mg/dL LOWHDL < 40 mg/dL HIGH Serum or plasma total choles terol/high density lipoprotein (HDL) cholesterol mass ratOrdered By: Dunia Bear on 10-31-2022 Cholesterol.total/Chol esterol in HDL [Mass ratio] 6.3 {ratio} <5.0 [facility] Thyroid Stimulating Hormoneo n 10-31-2022 TSH Qn 3.23 m[IU]/L Normal 0.45-5.33 [facility] Comment on above: Order Comment: Comme nt add Comment add Result Comment: PERF ORMED BY: [place] [address] PATHOLOGIST IMPREGNATOR TERESA PATTERSON M.D. Performed By: #### F ER, [id number], FE and TIBC, MG #### [facility] [address] [place] [address] Thyrotropin [Units/volume] i n Serum or PlasmaOrdered By: Dunia Bear on 10-31-2022 TSH Qn 3.23 m[IU]/L 0.45-5.33 [facility] Triglyceride [Mass/volume] i n Serum or PlasmaOrdered By: Dunia Bear on 10-31-2022 Triglyceride [Mass/Vol] 129 mg/dL 0-149 [facility] Comment on above: TRIG ATP III CLASSIF ICATIONTRIG less than 150 mg/dL NormalTRIG 150-199 mg/dL Borderline highTRIG 200-500 mg/dL High TRIG greater than 500 mg/dL Very highStandard traceable to the Center for Disease Conrtrol and Prevention (CDC) test method. XR chest 1V portableon 10-31 XR chest 1V portable [facility] [address] [place] [address] [place] [address] XRay Report Signed Patient: Viraj Doherty MR#: [id number] : 1955 Acct:[id number] Age/Sex: 67 / M ADM Date: 10/30/22 Loc: Room: [address] [place] [address] Type: ADM IN Attending Dr: Davey Harding [...] Delio Tran M.D.10/31/2022 7:33 AM Dictation Location: [place] [address] Transcribed By: [facility] 10/31/22732 Dictated By: Delio Tran DO 10/31/22731 Signed By: 10/31/22732 [facility] Activated partial thrombopla stin time (aPTT) in platelet poor plasma by coagulation aOrdered By: Nolberto Hernandez on 10-30-2022 aPTT Coag (PPP) [Time] 29.4 s 25.1-36.5 [facility] Automated epithelial cells c ount in urine sediment (number/area)Ordered By: Nolberto Hernandez on 10-30-2022 Epithelial cells Auto (Urine sed) [#/Area] Rare [HPF] 0-2 [facility] Automated erythrocytes count in urine sediment (number/area)Ordered By: Nolberto Hernandez on 10-30-2022 RBC Auto (Urine sed) [#/Area] 3-4 [HPF] 0-4 [facility] Automated leukocytes count i n urine sediment (number/area)Ordered By: Nolberto Hernandez on 10-30-2022 WBC Auto (Urine sed) [#/Area] 0-1 [HPF] 0-4 [facility] Basic Metabolic Panelon Anion gap [Moles/Vol] 11.6 mmol/L Normal 6.0-15.0 [facility] Comment on above: Performed By: #### F ER, [id number], FE and TIBC, MG #### [facility] [address] Calcium [Mass/Vol] 9.1 mg/dL Normal 8.6-10.3 [facility] Comment on above: Performed By: #### F ER, [id number], FE and TIBC, MG #### [facility] [address] [place] [address] [place] Chloride [Moles/Vol] 104 mmol/L Normal 98-107 [facility] Comment on above: Performed By: #### F ER, [id number], FE and TIBC, MG #### [facility] [address] [place] [address] [place] CO2 [Moles/Vol] 24.7 mmol/L Normal 21.0-31.0 [facility] Comment on above: Performed By: #### F ER, [id number], FE and TIBC, MG #### [facility] [address] [place] [address] [place] Creatinine [Mass/Vol] 0.98 mg/dL Normal 0.70-1.30 [facility] Comment on above: Performed By: #### F ER, [id number], FE and TIBC, MG #### [facility] [address] [place] [address] [place] Creatinine Clr Calc Pharmacy 71.14 [facility] Comment on above: Result Comment: PERF ORMED BY: [place] [address] PATHOLOGIST IMPREGNATOR TERESA PATTERSON M.D. Performed By: #### F ER, [id number], FE and TIBC, MG #### [facility] [address] [place] [address] [place] GFR/1.73 sq M.predicted MDRD (S/P/Bld) [Vol rate/Area] mL/min/{1.73_m2} [facility] Comment on above: Performed By: #### F ER, [id number], FE and TIBC, MG #### [facility] [address] Glucose [Mass/Vol] 107 mg/dL High 70-100 [facility] Comment on above: Result Comment: [facility] Glucose Reference Range is dependent on time and content of last meal. Glucose of more than 200 mg/dL in a nonstressed, ambulatory subject supports the diagnosis of Diabetes Mellitus. ADA recommended reference range Performed By: #### F ER, [id number], FE and TIBC, MG #### [facility] [address] [place] [address] [place] Potassium [Moles/Vol] 3.3 mmol/L Low 3.5-5.1 [facility] Comment on above: Performed By: #### F ER, [id number], FE and TIBC, MG #### [facility] [address] [place] [address] [place] Sodium [Moles/Vol] 137 mmol/L Normal 136-145 [facility] Comment on above: Performed By: #### F ER, [id number], FE and TIBC, MG #### [facility] [address] [place] [address] [place] Urea nitrogen [Mass/Vol] 12 mg/dL Normal 7-25 [facility] Comment on above: Performed By: #### F ER, [id number], FE and TIBC, MG #### [facility] [address] [place] [address] [place] Basophils Auto (Bld) [#/Vol] Ordered By: Nolberto Hernandez on 10-30-2022 Basophils (Bld) [#/Vol] 0.1 10*3/uL 0.0-0.2 [facility] Basophils/100 WBC Auto (Bld) Ordered By: Nolberto Hernandez on 10-30-2022 Basophils/100 WBC (Bld) 0.8 % . [facility] Bilirubin Test strip Ql (U)O rdered By: Nolberto Hernandez on 10-30-2022 Bilirubin Ql (U) Negative Negative [facility] Calcium [Mass/volume] in Ser um or PlasmaOrdered By: Nolberto Hernandez on 10-30-2022 Calcium [Mass/Vol] 9.1 mg/dL 8.6-10.3 [facility] Carbon dioxide, total [Moles /volume] in Serum or PlasmaOrdered By: Nolberto Hernandez on 10-30-2022 CO2 [Moles/Vol] 24.7 mmol/L 21.0-31.0 [facility] Chloride [Moles/volume] in S shani or PlasmaOrdered By: Nolberto Hernandez on 10-30-2022 Chloride [Moles/Vol] 104 mmol/L 98-107 [facility] Color Auto (U)Ordered By: Karen Hernandez on 10-30-2022 Color (U) Yellow Yellow [facility] Complete Blood Count Auto Di ffon 10-30-2022 Basophils (Bld) [#/Vol] 0.1 10*3/uL Normal 0.0-0.2 [facility] Comment on above: Result Comment: PERF ORMED BY: [facility] [address] [facility] [place] [address] PATHOLOGIST IMPREGNATOR TERESA PATTERSON M.D. Performed By: #### F ER, [id number], FE and TIBC, MG #### [facility] [address] [place] [id number] [facility] Basophils/100 WBC (Bld) 0.8 % Normal . [facility] Comment on above: Performed By: #### F ER, [id number], FE and TIBC, MG #### [address] Eosinophils (Bld) [#/Vol] 0.1 10*3/uL Normal 0.0-0.45 [facility] Comment on above: Performed By: #### F ER, [id number], FE and TIBC, MG #### [address] Eosinophils/100 WBC (Bld) 1.0 % Normal . [facility] Comment on above: Performed By: #### F ER, [id number], FE and TIBC, MG #### [address] Erythrocyte distribution width (RBC) [Ratio] 14.1 % Normal 12.0-14.8 [facility] Comment on above: Performed By: #### F ER, [id number], FE and TIBC, MG #### [address] Hematocrit (Bld) [Volume fraction] 48.3 % Normal 38.8-50.0 [facility] Comment on above: Performed By: #### F ER, [id number], FE and TIBC, MG #### [address] Hemoglobin (Bld) [Mass/Vol] 16.7 g/dL Normal 13.0-17.0 [facility] Comment on above: Performed By: #### F ER, [id number], FE and TIBC, MG #### [address] Lymphocytes (Bld) [#/Vol] 3.0 10*3/uL Normal 1.00-4.8 [facility] Comment on above: Performed By: #### F ER, [id number], FE and TIBC, MG #### [place] [address] [place] Lymphocytes/100 WBC (Bld) 31.1 % Normal . [facility] Comment on above: Performed By: #### F ER, [id number], FE and TIBC, MG #### [address] MCH (RBC) [Entitic mass] 30.2 pg Normal 27.5-35.2 [facility] Comment on above: Performed By: #### F ER, [id number], FE and TIBC, MG #### [address] MCV (RBC) [Entitic vol] 87.2 fL Normal 83.5-101 [facility] Comment on above: Performed By: #### F ER, [id number], FE and TIBC, MG #### [address] Mean Corpuscular HGB Conc 34.7 g/dL Normal 32.5-35.6 [facility] Comment on above: Performed By: #### F ER, [id number], FE and TIBC, MG #### [address] Monocytes (Bld) [#/Vol] 0.9 10*3/uL High 0.0-0.8 [facility] Comment on above: Performed By: #### F ER, [id number], FE and TIBC, MG #### [address] Monocytes/100 WBC (Bld) 18.82 % Normal 0.00-20.00 [facility] Comment on above: Performed By: #### F ER, [id number], FE and TIBC, MG #### [place] [address] [place] Monocytes/100 WBC (Bld) 9.0 % Normal . [facility] Comment on above: Performed By: #### F ER, [id number], FE and TIBC, MG #### [place] [address] [place] Neutrophils (Bld) [#/Vol] 5.5 10*3/uL Normal 1.8-7.7 [facility] Comment on above: Performed By: #### F ER, [id number], FE and TIBC, MG #### [facility] [address] Neutrophils/100 WBC (Bld) 58.1 % Normal . [facility] Comment on above: Performed By: #### F ER, [id number], FE and TIBC, MG #### [facility] [address] NRBC% 0.2 /100{WBC} Normal 0-0.5 [facility] Comment on above: Performed By: #### F ER, [id number], FE and TIBC, MG #### [address] Platelet mean volume (Bld) [Entitic vol] 8.8 fL Normal 6.6-10.1 [facility] Comment on above: Performed By: #### F ER, [id number], FE and TIBC, MG #### [facility] [address] Platelets (Bld) [#/Vol] 192 10*3/uL Normal 150-450 [facility] Comment on above: Performed By: #### F ER, [id number], FE and TIBC, MG #### [address] RBC (Bld) [#/Vol] 5.54 10*6/uL Normal 3.90-5.60 [facility] Comment on above: Performed By: #### F ER, [id number], FE and TIBC, MG #### [address] WBC (Bld) [#/Vol] 9.5 10*3/uL Normal 4.1-10.5 [facility] Comment on above: Performed By: #### F ER, [id number], FE and TIBC, MG #### [facility] [address] [place] [id number] [place] Creatine Kinaseon 10-30-2022 CK [Catalytic activity/Vol] 133 U/L Normal [facility] Comment on above: Performed By: #### F ER, [id number], FE and TIBC, MG #### [facility] [address] [place] [id number] [facility] Creatine kinase [Enzymatic a ctivity/volume] in Serum or PlasmaOrdered By: Nolberto Hernandez on 10-30-2022 CK [Catalytic activity/Vol] 133 U/L [facility] Creatinine [Mass/volume] in Serum or PlasmaOrdered By: Nolberto Hernandez on 10-30-2022 Creatinine [Mass/Vol] 0.98 mg/dL 0.70-1.30 [facility] ECG 12 lead ECGon 10-30-2022 ECG 12 lead ECG [facility] [place] [address] [place] [address] Electrocardiograph Report Signed Patient: Viraj Doherty MR#: [id number] : 1955 Acct:[id number] Age/Sex: 67 / M ADM Date: 10/30/22 Loc: Room: [address] [place] [address] Type: ADM IN Attending Dr: John Garcia [...] Signed By Nolberto Hernandez MD 10/31/22 0108 [facility] Eosinophils Auto (Bld) [#/Vo l]Ordered By: Nolberto Hernandez on 10-30-2022 Eosinophils (Bld) [#/Vol] 0.1 10*3/uL 0.0-0.45 [facility] Eosinophils/100 WBC Auto (Bl d)Ordered By: Nolberto Hernandez on 10-30-2022 Eosinophils/100 WBC (Bld) 1.0 % . [facility] Erythrocyte distribution wid th Auto (RBC) [Ratio]Ordered By: Nolberto Hernandez on 10-30-2022 Erythrocyte distribution width (RBC) [Ratio] 14.1 % 12.0-14.8 [facility] Glucose Glucometer (BldC) [M ass/Vol]Ordered By: Davey Harding on 10-30-2022 Glucose [Mass/Vol] 114 mg/dL [facility] Comment on above: Random Glucose Refer ence Range is dependent on time and content of last meal. Glucose of more than 200 mg/dL in a nonstressed, ambulatory subject supports the diagnosis of Diabetes Mellitus. Glucose Poct Glucometerson 0 10-30-2022 Glucose [Mass/Vol] 114 mg/dL Normal [facility] Comment on above: Result Comment: [place] Glucose Reference Range is dependent on time and content of last meal. Glucose of more than 200 mg/dL in a nonstressed, ambulatory subject supports the diagnosis of Diabetes Mellitus. PERFORMED BY: [place] [address] PATHOLOGIST IMPREGNATOR TERESA PATTERSON M.D. Performed By: #### B MP, CBC #### [place] [address] [place] Glucose [Mass/volume] in Ser um or PlasmaOrdered By: Nolberto Hernandez on 10-30-2022 Glucose [Mass/Vol] 107 mg/dL 70-100 [facility] Comment on above: ADA recommended refe rence rangeRandom Glucose Reference Range is dependent on time and content of last meal. Glucose of more than 200 mg/dL in a nonstressed, ambulatory subject supports the diagnosis of Diabetes Mellitus. Hematocrit Auto (Bld) [Volum e fraction]Ordered By: Nolberto Hernandez on 10-30-2022 Hematocrit (Bld) [Volume fraction] 48.3 % 38.8-50.0 [facility] Hemoglobin [Mass/volume] in BloodOrdered By: Nolberto Hernandez on 10-30-2022 Hemoglobin (Bld) [Mass/Vol] 16.7 g/dL 13.0-17.0 [facility] INR in Platelet poor plasma by Coagulation assayOrdered By: Nolberto Hernandez on 10-30-2022 INR Coag (PPP) [Relative time] 1.1 {INR} [facility] Comment on above: INR Therapeutic Rang [...] 10-30-2022 Ketones (U) [Mass/Vol] Negative Negative Fi [facility] - CoagulationOrde red By: Nolbreto Hernandez on 10-30-2022 PT Coag (PPP) [Time] 12.6 s 9.0-12.9 [facility] Leukocytes [#/volume] correc khadra for nucleated erythrocytes in Blood by Automated counOrdered By: Nolberto Hernandez on 10-30-2022 WBC corrected for nucl RBC Auto (Bld) [#/Vol] 9.5 10*3/uL 4.1-10.5 [facility] Lymphocytes Auto (Bld) [#/Vo l]Ordered By: Nolberto Hernandez on 10-30-2022 Lymphocytes (Bld) [#/Vol] 3.0 10*3/uL 1.00-4.8 [facility] Lymphocytes/100 WBC Auto (Bl d)Ordered By: Nolberto Hernandez on 10-30-2022 Lymphocytes/100 WBC (Bld) 31.1 % . [facility] MCH Auto (RBC) [Entitic mass ]Ordered By: Nolberto Hernandez on 10-30-2022 MCH (RBC) [Entitic mass] 30.2 pg 27.5-35.2 [facility] MCHC Auto (RBC) [Mass/Vol]Or dered By: Nolberto Hernandez on 09-04-2023 MCHC (RBC) [Mass/Vol] 34.7 g/dL 32.5-35.6 [facility] MCV Auto (RBC) [Entitic vol] Ordered By: Nolberto Hernandez on 10-30-2022 MCV (RBC) [Entitic vol] 87.2 fL 83.5-101 [facility] Monocyte distribution width [Entitic volume] in Blood by AutomatedOrdered By: Nolberto Hernandez on 10-30-2022 Monocyte distribution width Auto (Bld) [Entitic vol] 18.82 % 0.00-20.00 [facility] Monocytes Auto (Bld) [#/Vol] Ordered By: Nolberto Hernandez on 10-30-2022 Monocytes (Bld) [#/Vol] 0.9 10*3/uL 0.0-0.8 [facility] Monocytes/100 WBC Auto (Bld) Ordered By: Nolberto Hernandez on 10-30-2022 Monocytes/100 WBC (Bld) 9.0 % . [facility] Neutrophils Auto (Bld) [#/Vo l]Ordered By: Nolberto Hernandez on 10-30-2022 Neutrophils (Bld) [#/Vol] 5.5 10*3/uL 1.8-7.7 [facility] Neutrophils/100 WBC Auto (Bl d)Ordered By: Nolberto Hernandez on 10-30-2022 Neutrophils/100 WBC (Bld) 58.1 % . [facility] Nitrite Test strip Ql (U)Ord ered By: Nolberto Hernandez on 10-30-2022 Nitrite Ql (U) Negative Negative [facility] No Panel InformationOrdered By: Nolberto Hernandez on 10-30-2022 Estimated GFR (CKD-EPI) > 60.0 mL/Min [facility] Creatinine Clearance (Chem 71.14 [facility] Nucleated erythrocytes [Pres ence] in Blood by Automated countOrdered By: Nolberto Hernandez on 10-30-2022 Nucleated RBC Auto Ql (Bld) 0.2 /100{WBC} 0-0.5 [facility] Partial Thromboplastin Timeo n 10-30-2022 aPTT Coag (Bld) [Time] 29.4 s Normal 25.1-36.5 [facility] Comment on above: Result Comment: PERF ORMED BY: [place] [address] PATHOLOGIST IMPREGNATOR TERESA PATTERSON M.D. Performed By: #### F ER, [id number], FE and TIBC, MG #### [facility] [address] [place] [address] Platelet mean volume Auto (B ld) [Entitic vol]Ordered By: Nolberto Hernandez on 10-30-2022 Platelet mean volume (Bld) [Entitic vol] 8.8 fL 6.6-10.1 [facility] Platelets Auto (Bld) [#/Vol] Ordered By: Nolberto Hernandez on 10-30-2022 Platelets (Bld) [#/Vol] 192 10*3/uL 150-450 [facility] Potassium [Moles/volume] in Serum or PlasmaOrdered By: Nolberto Hernandez on 10-30-2022 Potassium [Moles/Vol] 3.3 mmol/L 3.5-5.1 [facility] Protein Auto test strip (U) [Mass/Vol]Ordered By: Nolberto Hernandez on 10-30-2022 Protein (U) [Mass/Vol] Trace mg/dL Negative [facility] Prothrombin Time INRon 10-30 INR Coag (PPP) [Relative time] 1.1 {INR} Normal [facility] Comment on above: Result Comment: INR [...] - 4.5 Performed By: #### F ER, [id number], FE and TIBC, MG #### [facility] [address] [place] [address] PT Coag (PPP) [Time] 12.6 s Normal 9.0-12.9 [facility] Comment on above: Performed By: #### F ER, [id number], FE and TIBC, MG #### [place] [id number] [place] RBC Auto (Bld) [#/Vol]Ordere d By: Nolberto Hernandez on 10-30-2022 RBC (Bld) [#/Vol] 5.54 10*6/uL 3.90-5.60 [facility] Serum or plasma anion gap de terminationOrdered By: Nolberto Hernandez on 10-30-2022 Anion gap [Moles/Vol] 11.6 mmol/L 6.0-15.0 [facility] Sodium [Moles/volume] in Ser um or PlasmaOrdered By: Nolberto Hernandez on 10-30-2022 Sodium [Moles/Vol] 137 mmol/L 136-145 [facility] Specific gravity Auto test s trip (U) [Rel density]Ordered By: Nolberto Hernandez on 10-30-2022 Specific gravity (U) [Rel density] > 1.050 1.001-1.03 0 [facility] Troponin I High Sensitivityo n 10-30-2022 Troponin I High Sensitivity 12.1 pg/mL Normal 0.0-20.0 [facility] Comment on above: Result Comment: PERF ORMED BY: [place] [address] PATHOLOGIST IMPREGNATOR TERESA PATTERSON M.D. Performed By: #### F ER, [id number], FE and TIBC, MG #### [address] Troponin I.cardiac [Mass/vol ume] in Serum or Plasma by Detection limit <= 0.01 ng/Ordered By: Nolberto Hernandez on 10-30-2022 Troponin I.cardiac DL <= 0.01 ng/mL [Mass/Vol] 12.1 pg/mL 0.0-20.0 [facility] Urea nitrogen [Mass/volume] in Serum or PlasmaOrdered By: Nolberto Hernandez on 10-30-2022 Urea nitrogen [Mass/Vol] 12 mg/dL 7-25 [facility] Urine bacteria detection by automated methodOrdered By: Nolberto Hernandez on 10-30-2022 Bacteria Auto Ql (U) None seen None Seen [facility] Urine clarity by refractomet ry automatedOrdered By: Nolberto Hernandez on 10-30-2022 Clarity Refractometry automated (U) Clear Clear [facility] Urine glucose measurement by automated test strip (mass/volume)Ordered By: Nolberto Hernandez on 10-30-2022 Glucose Auto test strip (U) [Mass/Vol] Normal mg/dL Normal [facility] Urine hemoglobin detection b y automated test stripOrdered By: Nolberto Hernandez on 10-30-2022 Hemoglobin Auto test strip Ql (U) 1+ Negative [facility] Urine leukocyte esterase det ection by automated test stripOrdered By: Nolberto Hernandez on 10-30-2022 Leukocyte esterase Auto test strip Ql (U) Negative Negative [facility] Urobilinogen Auto test strip (U) [Mass/Vol]Ordered By: Nolberto Hernandez on 10-30-2022 Urobilinogen (U) [Mass/Vol] Normal mg/dL Normal [facility] WBC Auto (Bld) [#/Vol]Ordere d By: Nolberto Hernandez on 10-30-2022 WBC (Bld) [#/Vol] 9.5 10*3/uL 4.1-10.5 [facility] pH Auto test strip (U)Ordere d By: Nolberto Hernandez on 10-30-2022 pH (U) 6.0 [pH] 5.0-9.0 [facility] INSULINon 08-20-2018 Insulin 8.6 uIU/mL Normal 2.6-24.9 [facility] Comment on above: Performed By: #### I NSULIN ####[facility] [address] [place], [place] [phone] Zena CBC AUTO DIFFon 08-19-2018 Basophils (Bld) [#/Vol] 0.1 103/ul Normal 0.0-0.1 [facility] Comment on above: Performed By: #### C BC ####[facility] [address] [place], [place] [phone] Zena Basophils/100 WBC (Bld) 1.1 % Normal 0.2-2.0 [facility] Comment on above: Performed By: #### C BC ####[facility] [address] [place] [id number] Zena Eosinophils (Bld) [#/Vol] 0.1 103/ul Normal 0.0-0.7 [facility] Comment on above: Performed By: #### C BC ####[facility] [address] [place] [address] Zena Eosinophils/100 WBC (Bld) 1.8 % Normal 0.9-7.0 [facility] Comment on above: Performed By: #### C BC ####[facility] [address] [place] [address] Zena Erythrocyte distribution width (RBC) [Ratio] 13.7 % Normal 11.0-15.0 [facility] Comment on above: Performed By: #### C BC ####[facility] [address] [place] [address] Zena Hematocrit (Bld) [Volume fraction] 45.4 % Normal 42.0-54.0 [facility] Comment on above: Performed By: #### C BC ####[facility] [address] [place] [address] Zena Hemoglobin (Bld) [Mass/Vol] 15.6 g/dL Normal 14.0-18.0 [facility] Comment on above: Performed By: #### C BC ####[facility] [address] [place] [address] Zena IG # 0.05 10e3/ul Critically high 0.00-0.03 [facility] Comment on above: Performed By: #### C BC ####[facility] [address] [place] [address] Zena IG % 0.6 % Critically high 0.0-0.5 [facility] Comment on above: Performed By: #### C BC ####[facility] [address] [place] [address] Zena Lymphocytes (Bld) [#/Vol] 2.7 103/ul Normal 1.2-3.8 [facility] Comment on above: Performed By: #### C BC ####[facility] [address] [place] [address] Zena Lymphocytes/100 WBC (Bld) 33.3 % Normal 20.5-60.0 [facility] Comment on above: Performed By: #### C BC ####[facility] [address] [place], [place] [address]Canelo Freitas MANUAL DIFF REQ NO Normal [facility] Comment on above: Performed By: #### C BC ####[facility] [address] [place], [place] [phone] Freitas MCH (RBC) [Entitic mass] 30.0 pg Normal 25.9-34.0 [facility] Comment on above: Performed By: #### C BC ####[facility] [address] [place], [place] [phone] Zena MCHC (RBC) [Mass/Vol] 34.4 g/dL Normal 29.9-35.2 [facility] Comment on above: Performed By: #### C BC ####[facility] [address] [place] [address] Zena MCV (RBC) [Entitic vol] 87.3 fL Normal 80.0-94.0 [facility] Comment on above: Performed By: #### C BC ####[facility] [address] [place] [address] Zena Monocytes (Bld) [#/Vol] 0.8 103/ul Normal 0.3-0.8 [facility] Comment on above: Performed By: #### C BC ####[facility] [address] [place], [place] [address]ravindra Freitas Monocytes/100 WBC (Bld) 10.0 % Normal 1.7-12.0 [facility] Comment on above: Performed By: #### C BC ####[facility] [address] [place] [address] Zena Neutrophils (Bld) [#/Vol] 4.3 103/ul Normal 1.4-6.5 [facility] Comment on above: Performed By: #### C BC ####[facility] [address] [place] [address]Gpcxvt Karen Neutrophils/100 WBC (Bld) 53.2 % Normal 43.0-75.0 [facility] Comment on above: Performed By: #### C BC ####[facility] [address] [place], [place] [phone] Freitas Platelet mean volume (Bld) [Entitic vol] 11.0 fL Normal 9.5-13.5 [facility] Comment on above: Performed By: #### C BC ####[facility] [address] [place], [place] [phone] Zena Platelets (Bld) [#/Vol] 203 103/ul Normal 150-450 [facility] Comment on above: Performed By: #### C BC ####[facility] [address] [place], [place] [address]Gerken Zena RBC (Bld) [#/Vol] 5.20 106/ul Normal 4.70-6.10 [facility] Comment on above: Performed By: #### C BC ####[facility] [address] [place] [address]Cixwhl Zena WBC (Bld) [#/Vol] 8.0 103/ul Normal 4.0-11.0 [facility] Comment on above: Performed By: #### C BC ####[facility] [address] [place] [address]Vfwzgn Karen GLYCOHEMOGLOBIN A1Con 2018 Glucose [Mass/Vol] 120 mg/dL Normal [facility] Comment on above: Performed By: #### A 1C ####[facility] [address] [place] [address]Fpwywh Karen HbA1c (Bld) [Mass fraction] 5.8 % Normal <=6.0 [facility] Comment on above: Performed By: #### A 1C ####[facility] [address] [place] [id number] Karen LIPID PROFILEon 08-19-2018 CHOL-HDL RATIO NORM SEE BELOW Normal [facility] Comment on above: Result Comment: 3.3 - 4.4 LOW RISK 4.4 - 7.1 AVERAGE RISK 7.1 - 11.0 MODERATE RISK >11.0 HIGH RISK Performed By: #### C MP, PSASC, LIPID, URIC ####[facility] [address] [place], [place] [address]Edbmid Zena Cholesterol [Mass/Vol] 217 mg/dL Critically high <=200 [facility] Comment on above: Performed By: #### C MP, PSASC, LIPID, URIC ####[facility] [address] [place], [place] [address]Zhusyy Zena Cholesterol in HDL [Mass/Vol] > or = 60 mg/dl - LOW CARDIOVASCULAR RISK <40 mg/dl - HIGH CARDIOVASCULAR RISK Normal [facility] Comment on above: Performed By: #### C MP, PSASC, LIPID, URIC ####[facility] [address] [place] [phone] Zena Cholesterol in HDL [Mass/Vol] 29 mg/dL Normal [facility] Comment on above: Performed By: #### C MP, PSASC, LIPID, URIC ####[facility] [address] [place] [phone] Zena Cholesterol in LDL [Mass/Vol] 152.2 mg/dL Normal [facility] Comment on above: Performed By: #### C MP, PSASC, LIPID, URIC ####[facility] [address] [place] [phone] Zena Cholesterol in LDL [Mass/Vol] SEE BELOW Normal [facility] Comment on above: Result Comment: <100 mg/dl OPTIMAL 100 - 129 mg/dl NEAR OR ABOVE OPTIMAL 130 - 159 mg/dl BORDERLINE HIGH 160 - 189 mg/dl HIGH >190 mg/dl VERY HIGH Performed By: #### C MP, PSASC, LIPID, URIC ####[facility] [address] [place] [phone] Zena Cholesterol.total/Chol esterol in HDL [Mass ratio] 7.5 {ratio} Normal [facility] Comment on above: Performed By: #### C MP, PSASC, LIPID, URIC ####[facility] [address] [place] [phone] Freitas Triglyceride [Mass/Vol] 179 mg/dL Critically high <=150 [facility] Comment on above: Performed By: #### C MP, PSASC, LIPID, URIC ####[facility] [address] [place], [place] [address]RzuiweCanelo Freitas VLDL CALC 35.8 mg/dL Normal [facility] Comment on above: Performed By: #### C MP, PSASC, LIPID, URIC ####[facility] [address] [place], [place] [address]JqoksdCanelo Freitas OCC BLD IMMUNO SCREENon 07-28 OCCULT BLOOD Positive Normal NEGATIVE [facility] Comment on above: Performed By: #### O BSCRN ####[facility] [address] [place] [id number] Freitas PROF 14(COMP METB)on 019 Albumin [Mass/Vol] 4.1 g/dL Normal 3.5-5.0 [facility] Comment on above: Performed By: #### C BC #### [facility] [address] [place] [phone] Canelo Freitas Albumin/Globulin [Mass ratio] 1.1 {ratio} Normal [facility] Comment on above: Performed By: #### C BC #### [facility] [address] [place] [id number] Canelo Zena ALP [Catalytic activity/Vol] 73 U/L Normal 38-126 [facility] Comment on above: Performed By: #### C BC #### [facility] [address] [place] [phone] Canelo Zena ALT [Catalytic activity/Vol] 39 U/L Normal 21-72 [facility] Comment on above: Performed By: #### C BC #### [facility] [address] [place] [id number] Canelo Zena Anion gap [Moles/Vol] 12.3 mmol/L Normal [facility] Comment on above: Performed By: #### C BC #### [facility] [address] [place] [phone] Canelo Zena AST [Catalytic activity/Vol] 16 U/L Critically low 17-59 [facility] Comment on above: Performed By: #### C BC #### [facility] [address] [place] [address] Caneloravindra Freitas Bilirubin Ql (U) 1.3 mg/dL Normal 0.2-1.3 [facility] Comment on above: Performed By: #### C BC #### [facility] [address] [place] [address] Canelo Zena Calcium [Mass/Vol] 9.1 mg/dL Normal 8.4-10.2 [facility] Comment on above: Performed By: #### C BC #### [facility] [address] [place] [address] Canelo Zena Chloride [Moles/Vol] 103 mmol/L Normal 98-107 [facility] Comment on above: Performed By: #### C BC #### [facility] [address] [place] [address] Canelo Zena CO2 [Moles/Vol] 27.6 mmol/L Normal 22.0-30.0 [facility] Comment on above: Performed By: #### C BC #### [facility] [address] [place] [address] Canelo Zena Creatinine [Mass/Vol] 1.12 mg/dL Normal 0.66-1.25 [facility] Comment on above: Performed By: #### C BC #### [facility] [address] [place] [address] Canelo Zena EGFR-AF BENINESE >60 Normal >=60 [facility] Comment on above: Performed By: #### C BC #### [facility] [address] [place] [address] Canelo Zena EGFR-NON AF BENINESE >60 Normal >=60 [facility] Comment on above: Performed By: #### C BC #### [facility] [address] [place] [address] Canelo Zena Globulin (S) [Mass/Vol] 3.7 g/dL Normal [facility] Comment on above: Performed By: #### C BC #### [facility] [address] [place], [place] [address] Canelo Zena Glucose [Mass/Vol] 107 mg/dL Critically high 74-106 [facility] Comment on above: Performed By: #### C BC #### [facility] [address] [place], [place] [address] Canelo Zena Potassium [Moles/Vol] 3.9 mmol/L Normal 3.4-5.0 [facility] Comment on above: Performed By: #### C BC #### [facility] [address] [place] [address] Canelo Zena Protein [Mass/Vol] 7.8 g/dL Normal 6.1-8.2 [facility] Comment on above: Performed By: #### C BC #### [facility] [address] [address] Canelo Zena Sodium [Moles/Vol] 139 mmol/L Normal 137-145 [facility] Comment on above: Performed By: #### C BC #### [facility] [address] [address] Canelo Zena Urea nitrogen [Mass/Vol] 13.0 mg/dL Normal 9.0-20.0 [facility] Comment on above: Performed By: #### C BC #### [facility] [address] [id number] Canelo Zena Urea nitrogen/Creatinine [Mass ratio] 11.6 mg/mg Normal [facility] Comment on above: Performed By: #### C BC #### [facility] [address] [id number] Canelo Zena URIC ACID SERUMon 08-19-2018 Urate [Mass/Vol] 6.3 mg/dL Normal 3.5-8.5 [facility] Comment on above: Performed By: #### C MP, PSASC, LIPID, URIC ####[facility] [address] [place], [place] [address]Nglvxk Zena BNPon 06-08-2018 Natriuretic peptide B (Bld) [Mass/Vol] 268.0 pg/mL Normal <=900.0 [facility] Comment on above: Performed By: #### C BC #### [facility] [address] [place], [place] [id number] Canelo Zena CBC AUTO DIFFon 06-08-2018 Basophils (Bld) [#/Vol] 0.1 103/ul Normal 0.0-0.1 [facility] Comment on above: Performed By: #### C BC #### [facility] [address] [place], [place] [id number] Canelo Zena Basophils/100 WBC (Bld) 1.1 % Normal 0.2-2.0 [facility] Comment on above: Performed By: #### C BC #### [facility] [address] [place] [address] Canelo Zena Eosinophils (Bld) [#/Vol] 0.1 103/ul Normal 0.0-0.7 [facility] Comment on above: Performed By: #### C BC #### [facility] [address] [place] [address] Canelo Zena Eosinophils/100 WBC (Bld) 0.9 % Normal 0.9-7.0 [facility] Comment on above: Performed By: #### C BC #### [facility] [address] [place] [address] Canelo Zena Erythrocyte distribution width (RBC) [Ratio] 14.6 % Normal 11.0-15.0 [facility] Comment on above: Performed By: #### C BC #### [facility] [address] [place] [address] Canelo Zena Hematocrit (Bld) [Volume fraction] 47.3 % Normal 42.0-54.0 [facility] Comment on above: Performed By: #### C BC #### [facility] [address] [place], [place] [id number] Canelo Zena Hemoglobin (Bld) [Mass/Vol] 16.1 g/dL Normal 14.0-18.0 [facility] Comment on above: Performed By: #### C BC #### [facility] [address] [place] [address] Canelo Zena IG # 0.03 10e3/ul Normal 0.00-0.03 [facility] Comment on above: Performed By: #### C BC #### [facility] [address] [place], [place] [id number] Caneloravindra Freitas IG % 0.3 % Normal 0.0-0.5 [facility] Comment on above: Performed By: #### C BC #### [facility] [address] [place], [place] [id number] Canelo Zena Lymphocytes (Bld) [#/Vol] 3.0 103/ul Normal 1.2-3.8 [facility] Comment on above: Performed By: #### C BC #### [facility] [address] [place], [place] [id number] Acneloravindra Freitas Lymphocytes/100 WBC (Bld) 31.5 % Normal 20.5-60.0 [facility] Comment on above: Performed By: #### C BC #### [facility] [address] [place], [place] [phone] Canelo Zena MANUAL DIFF REQ NO Normal [facility] Comment on above: Performed By: #### C BC #### [facility] [address] [place], [place] [phone] Caneloravindra Freitas MCH (RBC) [Entitic mass] 29.2 pg Normal 25.9-34.0 [facility] Comment on above: Performed By: #### C BC #### [facility] [address] [place], [place] [phone] Caneloravindra Freitas MCHC (RBC) [Mass/Vol] 34.0 g/dL Normal 29.9-35.2 [facility] Comment on above: Performed By: #### C BC #### [facility] [address] [place], [place] [phone] Caneloravindra Freitas MCV (RBC) [Entitic vol] 85.8 fL Normal 80.0-94.0 [facility] Comment on above: Performed By: #### C BC #### [facility] [address] [place], [place] [address] Canelo Zena Monocytes (Bld) [#/Vol] 1.0 103/ul Critically high 0.3-0.8 [facility] Comment on above: Performed By: #### C BC #### [facility] [address] [place], [place] [address] Canelo Zena Monocytes/100 WBC (Bld) 10.8 % Normal 1.7-12.0 [facility] Comment on above: Performed By: #### C BC #### [facility] [address] [place], [place] [address] Canelo Zena Neutrophils (Bld) [#/Vol] 5.3 103/ul Normal 1.4-6.5 [facility] Comment on above: Performed By: #### C BC #### [facility] [address] [place], [place] [address] Canelo Zena Neutrophils/100 WBC (Bld) 55.4 % Normal 43.0-75.0 [facility] Comment on above: Performed By: #### C BC #### [facility] [address] [place], [place] [address] Canelo Zena Platelet mean volume (Bld) [Entitic vol] 10.2 fL Normal 9.5-13.5 [facility] Comment on above: Performed By: #### C BC #### [facility] [address] [place], [place] [address] Canelo Zena Platelets (Bld) [#/Vol] 205 103/ul Normal 150-450 [facility] Comment on above: Performed By: #### C BC #### [facility] [address] [place], [place] [address] Canelo Zena RBC (Bld) [#/Vol] 5.51 106/ul Normal 4.70-6.10 [facility] Comment on above: Performed By: #### C BC #### [facility] [address] [place], [place] [address] Canelo Zena WBC (Bld) [#/Vol] 9.6 103/ul Normal 4.0-11.0 [facility] Comment on above: Performed By: #### C BC #### [facility] [address] [place], [place] [address] Canelo Finken PROF 14(COMP METB)on 019 Albumin [Mass/Vol] 4.0 g/dL Normal 3.5-5.0 [facility] Comment on above: Performed By: #### C BC #### [facility] [address] [place], [place] [address] Canelo Zena Albumin/Globulin [Mass ratio] 1.2 {ratio} Normal [facility] Comment on above: Performed By: #### C BC #### [facility] [address] [place], [place] [address] Canelo Zena ALP [Catalytic activity/Vol] 77 U/L Normal 38-126 [facility] Comment on above: Performed By: #### C BC #### [facility] [address] [place] [address] Canelo Zena ALT [Catalytic activity/Vol] 29 U/L Normal 21-72 [facility] Comment on above: Performed By: #### C BC #### [facility] [address] [place] [address] Canelo Zena Anion gap [Moles/Vol] 10.8 mmol/L Normal [facility] Comment on above: Performed By: #### C BC #### [facility] [address] [place], [place] [address] Canelo Zena AST [Catalytic activity/Vol] 16 U/L Critically low 17-59 [facility] Comment on above: Performed By: #### C BC #### [facility] [address] [place], [place] [address] Canelo Zena Bilirubin Ql (U) 1.0 mg/dL Normal 0.2-1.3 [facility] Comment on above: Performed By: #### C BC #### [facility] [address] [place], [place] [address] Canelo Zena Calcium [Mass/Vol] 9.2 mg/dL Normal 8.4-10.2 [facility] Comment on above: Performed By: #### C BC #### [facility] [address] [place], [place] [address] Canelo Zena Chloride [Moles/Vol] 101 mmol/L Normal 98-107 [facility] Comment on above: Performed By: #### C BC #### [facility] [address] [id number] Canelo Zena CO2 [Moles/Vol] 29.4 mmol/L Normal 22.0-30.0 [facility] Comment on above: Performed By: #### C BC #### [facility] [address] [id number] Canelo Zena Creatinine [Mass/Vol] 1.28 mg/dL Critically high 0.66-1.25 [facility] Comment on above: Performed By: #### C BC #### [facility] [address] [id number] [place]elo Zena EGFR-AF BENINESE >60 Normal >=60 [facility] Comment on above: Performed By: #### C BC #### [facility] [address] [place] [address] Canelo Zena EGFR-NON AF BENINESE 56 mL/min/1.73m2 Critically low >=60 [facility] Comment on above: Performed By: #### C BC #### [facility] [address] [place], [place] [address] Canelo Zena Globulin (S) [Mass/Vol] 3.3 g/dL Normal [facility] Comment on above: Performed By: #### C BC #### [facility] [address] [place], [place] [address] Canelo Zena Glucose [Mass/Vol] 120 mg/dL Critically high 74-106 [facility] Comment on above: Performed By: #### C BC #### [facility] [address] [place], [place] [address] Canelo Zena Potassium [Moles/Vol] 4.2 mmol/L Normal 3.4-5.0 [facility] Comment on above: Performed By: #### C BC #### [facility] [address] [place], [place] [address] Canelo Zena Protein [Mass/Vol] 7.3 g/dL Normal 6.1-8.2 [facility] Comment on above: Performed By: #### C BC #### [facility] [address] [id number] Caneloravindra Freitas Sodium [Moles/Vol] 137 mmol/L Normal 137-145 [facility] Comment on above: Performed By: #### C BC #### [facility] [address] [id number] Caneloravindra Freitas Urea nitrogen [Mass/Vol] 17.0 mg/dL Normal 9.0-20.0 [facility] Comment on above: Performed By: #### C BC #### [facility] [address] [place], [place] [address] Canelo Freitas Urea nitrogen/Creatinine [Mass ratio] 13.3 mg/mg Normal [facility] Comment on above: Performed By: #### C BC #### [facility] [address] [place], [place] [address] Canelo Zena T3, TOTAL (TRIIODOTHYRONINE) on 06-08-2018 T3, TOTAL 109 ng/dL Normal 71-180 [facility] Comment on above: Performed By: #### C BC #### [facility] [address] [place], [place] [address] Canelo Freitas BNPon 06-07-2018 Natriuretic peptide B (Bld) [Mass/Vol] 370.0 pg/mL Normal <=900.0 [facility] Comment on above: Performed By: #### B MP, BNP, LIVER, LIPA, CMADM #### [facility] [address] [place] [address] Canelo Freitas CARDIAC JEFF 3-6-9on 019 CK [Catalytic activity/Vol] 182 U/L Critically high 55-170 [facility] Comment on above: Performed By: #### C BC #### [facility] [address] [place], [place] [address] Canelo Freitas CK.MB [Mass/Vol] 3.00 ng/mL Critically high <=2.37 [facility] Comment on above: Result Comment: test repeated critical value verified Performed By: #### C BC #### [facility] [address] [place], [place] [address] Canelo Zena INR Coag (Bld) [Relative time] SEE BELOW Normal [facility] Comment on above: Result Comment: <0.0 34 ng/ml NEGATIVE 0.034-0.119 INDETERMINATE 0.120 AMI CUT OFF Performed By: #### C BC #### [facility] [address] [place], [place] [address] Canelo Zena TROP 0.022 ng/mL Normal <=0.034 [facility] Comment on above: Performed By: #### C BC #### [facility] [address] [address] Canelo Zena CK [Catalytic activity/Vol] 179 U/L Critically high 55-170 [facility] Comment on above: Performed By: #### C BC #### [facility] [address] [place] [address] Canelo Zena CK.MB [Mass/Vol] 3.21 ng/mL Critically high <=2.37 [facility] Comment on above: Result Comment: Test repeated. Critical value verified. Performed By: #### C BC #### [facility] [address] [place] [address] Canelo Zena INR Coag (Bld) [Relative time] SEE BELOW Normal [facility] Comment on above: Result Comment: <0.0 34 ng/ml NEGATIVE 0.034-0.119 INDETERMINATE 0.120 AMI CUT OFF Performed By: #### C BC #### [facility] [address] [place] [address] Canelo Zena TROP <0.017 Normal <=0.034 [facility] Comment on above: Performed By: #### C BC #### [facility] [address] [place] [address] Canelo Zena CK [Catalytic activity/Vol] 185 U/L Critically high 55-170 [facility] Comment on above: Performed By: #### C MREP ####[facility] [address] [id number] Zena CK.MB [Mass/Vol] 3.31 ng/mL Critically high <=2.37 [facility] Comment on above: Result Comment: Test repeated. Critical value verified. Performed By: #### C MREP ####[facility] [address] [place] [address] Zena INR Coag (Bld) [Relative time] SEE BELOW Normal [facility] Comment on above: Result Comment: <0.0 34 ng/ml NEGATIVE 0.034-0.119 INDETERMINATE 0.120 AMI CUT OFF Performed By: #### C MREP ####[facility] [address] [place] [address] Zena TROP <0.017 Normal <=0.034 [facility] Comment on above: Performed By: #### C MREP ####[facility] [address] [place] [address] Zena CARDIAC JEFF ADMITon 019 CK [Catalytic activity/Vol] 202 U/L Critically high 55-170 [facility] Comment on above: Result Comment: Test repeated. Critical value verified. Performed By: #### B MP, BNP, LIVER, LIPA, CMADM ####[facility] [address] [place] [address] CK.MB [Mass/Vol] 3.20 ng/mL Critically high <=2.37 [facility] Comment on above: Result Comment: Test repeated. Critical value verified. Performed By: #### B MP, BNP, LIVER, LIPA, CMADM ####[facility] [address] [place] [address] Zena INR Coag (Bld) [Relative time] SEE BELOW Normal [facility] Comment on above: Result Comment: <0.0 34 ng/ml NEGATIVE 0.034-0.119 INDETERMINATE 0.120 AMI CUT OFF Performed By: #### B MP, BNP, LIVER, LIPA, CMADM ####[facility] [address] [place] [address] Zena LISA 116.0 ng/mL Normal <=121.0 [facility] Comment on above: Performed By: #### B MP, BNP, LIVER, LIPA, CMADM ####[facility] [address] [place] [address] Zena TROP <0.017 Normal <=0.034 [facility] Comment on above: Performed By: #### B MP, BNP, LIVER, LIPA, CMADM ####[facility] [address] [place], [place] [address]Oqjkht Zena CBC AUTO DIFFon 06-07-2018 Basophils (Bld) [#/Vol] 0.1 103/ul Normal 0.0-0.1 [facility] Comment on above: Performed By: #### C BC #### [facility] [address] [place], [place] [address] Canelo Zena Basophils/100 WBC (Bld) 1.1 % Normal 0.2-2.0 [facility] Comment on above: Performed By: #### C BC #### [facility] [address] [id number] Canelo Zena Eosinophils (Bld) [#/Vol] 0.1 103/ul Normal 0.0-0.7 [facility] Comment on above: Performed By: #### C BC #### [facility] [address] [place], [place] [address] Canelo Zena Eosinophils/100 WBC (Bld) 1.3 % Normal 0.9-7.0 [facility] Comment on above: Performed By: #### C BC #### [facility] [address] [place], [place] [address] Canelo Zena Erythrocyte distribution width (RBC) [Ratio] 14.5 % Normal 11.0-15.0 [facility] Comment on above: Performed By: #### C BC #### [facility] [address] [id number] Canelo Zena Hematocrit (Bld) [Volume fraction] 48.7 % Normal 42.0-54.0 [facility] Comment on above: Performed By: #### C BC #### [facility] [address] [id number] Canelo Zena Hemoglobin (Bld) [Mass/Vol] 17.0 g/dL Normal 14.0-18.0 [facility] Comment on above: Performed By: #### C BC #### [facility] [address] [place], [place] [address] Canelo Zena IG # 0.03 10e3/ul Normal 0.00-0.03 [facility] Comment on above: Performed By: #### C BC #### [facility] [address] [place], [place] [address] Canelo Zena IG % 0.4 % Normal 0.0-0.5 [facility] Comment on above: Performed By: #### C BC #### [facility] [address] [place], [place] [address] Canelo Zena Lymphocytes (Bld) [#/Vol] 2.5 103/ul Normal 1.2-3.8 [facility] Comment on above: Performed By: #### C BC #### [facility] [address] [place] [address] Canelo Zena Lymphocytes/100 WBC (Bld) 30.8 % Normal 20.5-60.0 [facility] Comment on above: Performed By: #### C BC #### [facility] [address] [place] [address] Canelo Zena MANUAL DIFF REQ NO Normal [facility] Comment on above: Performed By: #### C BC #### [facility] [address] [place], [place] [address] Canelo Zena MCH (RBC) [Entitic mass] 29.2 pg Normal 25.9-34.0 [facility] Comment on above: Performed By: #### C BC #### [facility] [address] [place], [place] [address] Canelo Zena MCHC (RBC) [Mass/Vol] 34.9 g/dL Normal 29.9-35.2 [facility] Comment on above: Performed By: #### C BC #### [facility] [address] [place], [place] [address] Canelo Zena MCV (RBC) [Entitic vol] 83.5 fL Normal 80.0-94.0 [facility] Comment on above: Performed By: #### C BC #### [facility] [address] [place], [place] [address] Canelo Zena Monocytes (Bld) [#/Vol] 0.8 103/ul Normal 0.3-0.8 [facility] Comment on above: Performed By: #### C BC #### [facility] [address] [place], [place] [address] Canelo Zena Monocytes/100 WBC (Bld) 9.8 % Normal 1.7-12.0 [facility] Comment on above: Performed By: #### C BC #### [facility] [address] [place], [place] [address] Canelo Zena Neutrophils (Bld) [#/Vol] 4.5 103/ul Normal 1.4-6.5 [facility] Comment on above: Performed By: #### C BC #### [facility] [address] [place] [address] Canelo Zena Neutrophils/100 WBC (Bld) 56.6 % Normal 43.0-75.0 [facility] Comment on above: Performed By: #### C BC #### [facility] [address] [place] [address] Canelo Zena Platelet mean volume (Bld) [Entitic vol] 10.0 fL Normal 9.5-13.5 [facility] Comment on above: Performed By: #### C BC #### [facility] [address] [place] [address] Canelo Zena Platelets (Bld) [#/Vol] 202 103/ul Normal 150-450 [facility] Comment on above: Performed By: #### C BC #### [facility] [address] [place] [address] Canelo Zena RBC (Bld) [#/Vol] 5.83 106/ul Normal 4.70-6.10 [facility] Comment on above: Performed By: #### C BC #### [facility] [address] [place] [address] Canelo Zena WBC (Bld) [#/Vol] 8.0 103/ul Normal 4.0-11.0 [facility] Comment on above: Performed By: #### C BC #### [facility] [address] HEAD WO CONon 06-07-2018 CT HEAD WO CON [address] [facility] [place] [address] Patient: VIRAJ DOHERTY Exam Date: 06/07/2018 : 1955 Gender:M Ordering : DR DELIO BOYER D.O. Admission #: [id number] Family : DR MARILYN PATRICK . Order #: [id number] CLICK HERE TO VIEW EXAM RADIOLOGY REPORT [...] M.D. on 06/07/2018 at 11:25 Normal [facility] DRUG SCREEN RAPID (URINE)on 06-07-2018 AMP Negative Normal NEGATIVE [facility] Comment on above: Performed By: #### D RUGRPD ####[facility] [address] Zena BAR Negative Normal NEGATIVE [facility] Comment on above: Performed By: #### D RUGRPD ####[facility] [address] BUP Negative Normal NEGATIVE [facility] Comment on above: Performed By: #### D RUGRPD ####[facility] [address] Zena BZO Negative Normal NEGATIVE [facility] Comment on above: Performed By: #### D RUGRPD ####[facility] [address] Zena IAM Negative Normal NEGATIVE [facility] Comment on above: Performed By: #### D RUGRPD ####[facility] [address] Zena CUT-OFFS SEE BELOW Normal [facility] Comment on above: Result Comment: AMP [...] 300 ng/mL Performed By: #### D RUGRPD ####[facility] [address] [place] [address] DRUG CUT HEADER DRUG CLASS TEST SYST EM CUT-OFF CONCENTRATIONS ARE FOLLOWS: Normal [facility] Comment on above: Performed By: #### Maximino RUGRPD ####[facility] [address] Zena mAMP Negative Normal NEGATIVE [facility] Comment on above: Performed By: #### D RUGRPD ####[facility] E[address] [place] MTD Negative Normal NEGATIVE [facility] Comment on above: Performed By: #### Maximino RUGRPD ####[facility] Ng[address] Zena OPI Negative Normal NEGATIVE [facility] Comment on above: Performed By: #### D RUGRPD ####[facility] [address] [place], [place] [address]Gispdm Zena OXY Negative Normal NEGATIVE [facility] Comment on above: Performed By: #### D RUGRPD ####[facility] [address] [place], [place] [address]Sljwwl Zena PCP Negative Normal NEGATIVE [facility] Comment on above: Performed By: #### D RUGRPD ####[facility] [address] [place] PPX Negative Normal NEGATIVE [facility] [facility] Comment on above: Performed By: #### D RUGRPD ####[facility] Wbrvdivmkv40[address] [place] TCA Negative Normal NEGATIVE [facility] Comment on above: Performed By: #### D RUGRPD ####[facility] Fossfnmosd9117 [address] [place] THC Positive Normal NEGATIVE [facility] Comment on above: Performed By: #### D RUGRPD ####[facility] Ytvxzvpkpw9077 [address] [place] ECHOCARDIO M/2D COMPLETEon 0 06-07-2018 ECHOCARDIO M/2D COMPLETE [address] [place] [address] Patient: VIRAJ DOHERTY Exam Date: 06/07/2018 : 1955 Gender:M Ordering : DR MARILYN PATRICK . Admission #: [id number] Family : Order #: [id number] CLICK HERE TO VIEW EXAM ECHOCARDIOGRAM REPORT [...] Area(A4C): 14.40 cm2 Left Atrium Systolic Volume(A2C): 42604 mm3 Left Atrium Systolic Volume(A4C): 65515 mm3 Mitral Valve MV E to A [...] M.D. on 06/07/2018 at 16:47 Normal [facility] ER URINE PROFILEon 9 Bilirubin [Mass/Vol] Negative Normal NEGATIVE [facility] Comment on above: Performed By: #### E RUR ####[facility] [address] [place] [id number] [place] BLOOD Negative Normal NEGATIVE [facility] Comment on above: Performed By: #### E RUR ####[facility] [address] [place], [place] [id number] [place] Clarity (U) CLEAR Normal [facility] Comment on above: Performed By: #### E RUR ####[facility] [address] [place] [address] [place] Color (U) LT. YELLOW Normal YELLOW [facility] Comment on above: Performed By: #### E RUR ####[facility] [address] [place] [address] [place] ERUAHD A micrscopic examina tion will be performed if indicated. Normal [facility] Comment on above: Performed By: #### E RUR ####[facility] [address] [place], [place] [id number] [place] Glucose [Mass/Vol] Negative Normal NEGATIVE [facility] Comment on above: Performed By: #### E RUR ####[facility] [address] [place], [place] [id number] [place] Ketones Ql (U) Negative Normal NEGATIVE [facility] Comment on above: Performed By: #### E RUR ####[facility] [address] [place], [place] [id number] [place] Nitrite Ql (U) Negative Normal NEGATIVE [facility] Comment on above: Performed By: #### E RUR ####[facility] [address] [place], [place] [address]Gerken [place] pH (Bld) 6.5 Normal 5-9 [facility] Comment on above: Performed By: #### E RUR ####[facility] [address] [place], [place] [address]Gerken [place] Protein (U) [Mass/Vol] Negative Normal [facility] Comment on above: Performed By: #### E RUR ####[facility] [address] [place] [id number] Freitas SPEC GRAVITY 1.010 Normal 1.005-<=1. 025 [facility] Comment on above: Performed By: #### E RUR ####[facility] [address] [place] [address]Canelo Fre[place] UR MICRO IND NOT INDICATED Normal [facility] Comment on above: Performed By: #### E RUR ####[facility] [address] [place] [id number] Freitas Urobilinogen Qn (U) 0.2 EU/dl Normal [facility] Comment on above: Performed By: #### E RUR ####[facility] [address] [place] [address]Canelo Freitas WBC (Bld) [#/Vol] Negative Normal NEGATIVE [facility] Comment on above: Performed By: #### E RUR ####[facility] [address] [place] [id number] Fre[place] GLYCOHEMOGLOBIN A1Con 2018 Glucose [Mass/Vol] 120 mg/dL Normal [facility] Comment on above: Performed By: #### C BC #### [facility] [address] [place] [address] [place] Freitas HbA1c (Bld) [Mass fraction] 5.8 % Normal <=6.0 [facility] Comment on above: Performed By: #### C BC #### [facility] [address] [place] [id number] [place] LIPASEon 06-07-2018 Lipase [Catalytic activity/Vol] 167.0 U/L Normal 23.0-300.0 [facility] Comment on above: Performed By: #### B MP, BNP, LIVER, LIPA, CMADM #### [facility] [address] [place] [id number] [place] LIPID PROFILEon 06-07-2018 CHOL-HDL RATIO NORM SEE BELOW Normal [facility] Comment on above: Result Comment: 3.3 - 4.4 LOW RISK 4.4 - 7.1 AVERAGE RISK 7.1 - 11.0 MODERATE RISK >11.0 HIGH RISK Performed By: #### C BC #### [facility] [address] [place], [place] [address] [place] Cholesterol [Mass/Vol] 236 mg/dL Critically high <=200 [facility] Comment on above: Performed By: #### C BC #### [facility] [address] [place], [place] [address] [place] Cholesterol in HDL [Mass/Vol] 31 mg/dL Normal [facility] Comment on above: Performed By: #### C BC #### [facility] [address] [place], [place] [address] [place] Cholesterol in HDL [Mass/Vol] > or = 60 mg/dl - LOW CARDIOVASCULAR RISK <40 mg/dl - HIGH CARDIOVASCULAR RISK Normal [facility] Comment on above: Performed By: #### C BC #### [facility] [address] [place], [place] [address] [place] Cholesterol in LDL [Mass/Vol] 161.2 mg/dL Normal [facility] Comment on above: Performed By: #### C BC #### [facility] [address] [place] [address] [place] Cholesterol in LDL [Mass/Vol] SEE BELOW Normal [facility] Comment on above: Result Comment: <100 mg/dl OPTIMAL 100 - 129 mg/dl NEAR OR ABOVE OPTIMAL 130 - 159 mg/dl BORDERLINE HIGH 160 - 189 mg/dl HIGH >190 mg/dl VERY HIGH Performed By: #### C BC #### [facility] [address] [place], [place] [address] [place] Cholesterol.total/Chol esterol in HDL [Mass ratio] 7.6 {ratio} Normal [facility] Comment on above: Performed By: #### C BC #### [facility] [address] [place] [address] [place] Triglyceride [Mass/Vol] 219 mg/dL Critically high <=150 [facility] Comment on above: Performed By: #### C BC #### [facility] [address] [place] [address] [place] VLDL CALC 43.8 mg/dL Normal [facility] Comment on above: Performed By: #### C BC #### [facility] [address] [place], [place] [phone] [place] LIVER PROFILEon 06-07-2018 Albumin [Mass/Vol] 4.4 g/dL Normal 3.5-5.0 [facility] Comment on above: Performed By: #### B MP, BNP, LIVER, LIPA, CMADM #### [facility] [address] [place], [place] [phone] [place] Albumin/Globulin [Mass ratio] 1.2 {ratio} Normal [facility] Comment on above: Performed By: #### B MP, BNP, LIVER, LIPA, CMADM #### [facility] [address] [place] [address] [place] ALP [Catalytic activity/Vol] 83 U/L Normal 38-126 [facility] Comment on above: Performed By: #### B MP, BNP, LIVER, LIPA, CMADM #### [facility] [address] [place] [address] [place] ALT [Catalytic activity/Vol] 34 U/L Normal 21-72 [facility] Comment on above: Performed By: #### B MP, BNP, LIVER, LIPA, CMADM #### [facility] [address] [place] [address] [place] AST [Catalytic activity/Vol] 23 U/L Normal 17-59 [facility] Comment on above: Performed By: #### B MP, BNP, LIVER, LIPA, CMADM #### [facility] [address] [place] [address] [place] BILI, CONJUGATED 0.2 mg/dL Normal 0.0-0.3 [facility] Comment on above: Performed By: #### B MP, BNP, LIVER, LIPA, CMADM #### [facility] [address] [place] [address] [place] Bilirubin Ql (U) 0.9 mg/dL Normal 0.2-1.3 [facility] Comment on above: Performed By: #### B MP, BNP, LIVER, LIPA, CMADM #### [facility] [address] [place], [place] [address] Can[place]oravindra Freitas Globulin (S) [Mass/Vol] 3.6 g/dL Normal [facility] Comment on above: Performed By: #### B MP, BNP, LIVER, LIPA, CMADM #### [facility] [address] [place], [place] [address] [place]oravindra Finken Protein [Mass/Vol] 8.0 g/dL Normal 6.1-8.2 [facility] Comment on above: Performed By: #### B MP, BNP, LIVER, LIPA, CMADM #### [facility] [address] [place], [place] [address] [place] MAGNESIUMon 06-07-2018 Magnesium [Mass/Vol] 2.1 mg/dL Normal 1.6-2.3 [facility] Comment on above: Performed By: #### T SH, MG, T4 ####[facility] [address] [place], [place] [address]Cbbwpd Karen MRI BRAIN WO CONon 9 MRI BRAIN WO CON [address] [place] [id number] Patient: VIRAJ DOHERTY Exam Date: 06/07/2018 : 1955 Gender:M Ordering : DR MARILYN PATRICK . Admission #: [id number] Family : Order #: [id number] CLICK HERE TO VIEW EXAM RADIOLOGY REPORT [...] Mcfarlane M.D. on 06/07/2018 at 15:55 Normal [facility] POINT OF CARE GLUCOSEon 05-27 Glucose [Mass/Vol] 116 mg/dL Critically high 74-106 [facility] Comment on above: Performed By: #### P OCGLUC #### [facility] [address] [place] [address] [place] PROF CHEM 8 (BAS METB)on Anion gap [Moles/Vol] 15.0 mmol/L Normal [facility] Comment on above: Performed By: #### B MP, BNP, LIVER, LIPA, CMADM #### [facility] [address] [place] [address] [place] Calcium [Mass/Vol] 9.1 mg/dL Normal 8.4-10.2 [facility] Comment on above: Performed By: #### B MP, BNP, LIVER, LIPA, CMADM #### [facility] [address] [place] [address] [place] Chloride [Moles/Vol] 100 mmol/L Normal 98-107 [facility] Comment on above: Performed By: #### B MP, BNP, LIVER, LIPA, CMADM #### [facility] [address] [place] [address] [place] CO2 [Moles/Vol] 24.9 mmol/L Normal 22.0-30.0 [facility] Comment on above: Performed By: #### B MP, BNP, LIVER, LIPA, CMADM #### [facility] [address] [place] [address] [place] Creatinine [Mass/Vol] 1.07 mg/dL Normal 0.66-1.25 [facility] Comment on above: Performed By: #### B MP, BNP, LIVER, LIPA, CMADM #### [facility] [address] [place] [address] [place] EGFR-AF BENINESE >60 Normal >=60 [facility] Comment on above: Performed By: #### B MP, BNP, LIVER, LIPA, CMADM #### [facility] [address] [place] [address] [place] EGFR-NON AF BENINESE >60 Normal >=60 [facility] Comment on above: Performed By: #### B MP, BNP, LIVER, LIPA, CMADM #### [facility] [address] [place] [address] [place] Glucose [Mass/Vol] 119 mg/dL Critically high 74-106 T [facility] Comment on above: Performed By: #### B MP, BNP, LIVER, LIPA, CMADM #### [facility] [address] [place] [address] [place] Potassium [Moles/Vol] 3.9 mmol/L Normal 3.4-5.0 [facility] Comment on above: Performed By: #### B MP, BNP, LIVER, LIPA, CMADM #### [facility] [address] [place] [address] [place] Sodium [Moles/Vol] 136 mmol/L Critically low 137-145 Th [facility] Comment on above: Performed By: #### B MP, BNP, LIVER, LIPA, CMADM #### [facility] [address] [place] [address] [place] Urea nitrogen [Mass/Vol] 11.0 mg/dL Normal 9.0-20.0 [facility] Comment on above: Performed By: #### B MP, BNP, LIVER, LIPA, CMADM #### [facility] [address] [place], [place] [phone] [place] Urea nitrogen/Creatinine [Mass ratio] 10.3 mg/mg Normal [facility] Comment on above: Performed By: #### B MP, BNP, LIVER, LIPA, CMADM #### [facility] [address] [place], [place] [phone] [place] PROTIMEon 06-07-2018 INR Coag (PPP) [Relative time] 1.05 {INR} Normal [facility] Comment on above: Performed By: #### P T, PTT #### [facility] [address] [place] [address] [place] PT Coag (PPP) [Time] 10.8 s Normal 9.0-11.6 [facility] Comment on above: Performed By: #### P T, PTT #### [facility] [address] [place], [place] [phone] [place] PT Coag (PPP) [Time] PLEASE NOTE: NORMAL RANGE CHANGE 11-13-2013 DUE TO REAGENT LOT CHANGE [facility] Comment on above: Performed By: #### P T, PTT #### [facility] [address] [place], [place] [phone] [place] PT Coag (PPP) [Time] SEE BELOW Normal [facility] Comment on above: Result Comment: PACO RED INR: 2.0 - 3.0 CONDITIONS NOT LISTED BELOW 2.5 - 3.5 FOR PROSTHETIC HEART VALVE REPLACEMENT 2.5 - 3.5 RECURRENT THROMBOSIS Performed By: #### P T, PTT #### [facility] [address] [place], [place] [phone] [place] PTTon 06-07-2018 aPTT Coag (Bld) [Time] 25.7 s Normal 22.3-36.2 Th [facility] Comment on above: Performed By: #### P T, PTT #### [facility] [address] [place], [place] [id number] [place] aPTT Coag (Bld) [Time] PLEASE NOTE: NORM AL RANGE CHANGE 01-20-2015 DUE TO REAGENT LOT CHANGE Normal [facility] Comment on above: Performed By: #### P T, PTT #### [facility] [address] [place], [place] [address] [place] T4on 06-07-2018 T4 [Mass/Vol] 6.20 ug/dL Normal 5.53-11.00 [facility] Comment on above: Performed By: #### T SH, MG, T4 ####[facility] Vf[address]qpb[address] [place] TSHon 06-07-2018 TSH Qn SEE BELOW Normal [facility] Comment on above: Result Comment: <0.3 4 UIU/ml HYPERTHYROID 0.34-5.60 UIU/ml EUTHYROID >5.60 UIU/ml HYPOTHYROID Performed By: #### T SH, MG, T4 ####[facility] F[address]gunu[address] [place] TSH Qn 2.494 uIU/mL Normal 0.470-4.68 0 [facility] Comment on above: Performed By: #### T SH, MG, T4 ####[facility] Hkhebywxjp[address] [place] US CAROTID ART BILon 019 Bilirubin [Mass/Vol] [address] [place] [address] Patient: VIRAJ DOHERTY Exam Date: 06/07/2018 : 1955 Gender:M Ordering : DR MARILYN PATRICK . Admission #: [id number] Family : ICU Order #: [id number] CLICK HERE TO VIEW EXAM RADIOLOGY REPORT [...] Mcfarlane M.D. on 06/07/2018 at 16:14 Normal [facility] XR CHEST 2 Von 06-07-2018 XR CHEST 2 V [address] [place] [address] Patient: VIRAJ DOHERTY Exam Date: 06/07/2018 : 1955 Gender:M Ordering : DR DELIO BOYER D.O. Admission #: [id number] Family : DR MRAILYN PATRICK . Order #: [id number] CLICK HERE TO VIEW EXAM RADIOLOGY REPORT [...] Mcfarlane M.D. on 06/07/2018 at 11:37 Normal [facility] Vital Signs Date Time Vital Sign Value Performing Clinician Facility 12-12-2023 12:47-0400 Body height 180.3 cm Ivon Yoo REPAIR CAMERAMAN Work Phone: [facility] 12-12-2023 12:47-0400 Body mass index (BMI) [Ratio] 23.99 kg/m2 Ivon Yoo [employer]PAIR [employer] Work Phone: [facility] 12-12-2023 12:47-0400 Body weight 78.02 kg Ivon Yoo [employer]PAIR [employer] Work Phone: [facility] 12-12-2023 12:47-0400 Diastolic blood pressure 88 mm[Hg] Ivon Yoo [employer]PAIR [employer] Work Phone: [facility] 12-12-2023 12:47-0400 Heart rate 85 /min Ivon Yoo [employer]PAIR [employer] Work Phone: [facility] 12-12-2023 12:47-0400 SaO2% (BldA) [Mass fraction] 99 % Ivon Yoo [employer]PAIR [employer] Work Phone: [facility] 12-12-2023 12:47-0400 Systolic blood pressure 152 mm[Hg] Ivon Yoo REPAIR [employer] Work Phone: [facility] 12-20-2022 09:08-0400 Diastolic blood pressure 89 mm[Hg] MD Nolberto Hernandez Work Phone: [facility] 12-20-2022 09:08-0400 Systolic blood pressure 150 mm[Hg] MD Nolberto Hernandez Work Phone: [facility] 12-20-2022 04:48-0400 Body temperature 98 [degF] MD Nolberto Hernandez Work Phone: [facility] 12-20-2022 04:48-0400 Heart rate 83 /min MD Nolberto Hernandez Work Phone: [facility] 12-20-2022 04:48-0400 Respiratory rate 18 /min MD Nolberto Hernandez Work Phone: [facility] 12-20-2022 04:48-0400 SaO2% (BldA) [Mass fraction] 97 % MD Nolberto Hernandez Work Phone: [facility] 12-19-2022 11:15-0400 Body height 180.34 cm MD Nolberto Hernandez Work Phone: [facility] 12-17-2022 05:25-0400 Body weight 69.7 kg MD Nolberto Hernandez Work Phone: [facility] 12-12-2022 08:00-0400 Body temperature 97.9 [degF] MD Nolberto Hernandez Work Phone: [facility] 12-12-2022 08:00-0400 Diastolic blood pressure 79 mm[Hg] MD Nolberto Hernandez Work Phone: [facility] 12-12-2022 08:00-0400 Heart rate 91 /min MD Nolberto Hernandez Work Phone: [facility] 12-12-2022 08:00-0400 Respiratory rate 20 /min MD Nolberto Hernandez Work Phone: [facility] 12-12-2022 08:00-0400 SaO2% (BldA) [Mass fraction] 94 % MD Nolberto Hernandez Work Phone: [facility] 12-12-2022 08:00-0400 Systolic blood pressure 104 mm[Hg] MD Nolberto Hernandez Work Phone: [facility] 12-12-2022 05:52-0400 Body weight 70.4 kg MD Nolberto Hernandez Work Phone: [facility] 12-09-2022 23:55-0400 Body height 180.34 cm MD Nolberto Hernandez Work Phone: [facility] 11-15-2022 13:01-0400 Diastolic blood pressure 73 mm[Hg] MD Nolberto Hernandez Work Phone: [facility] 11-15-2022 13:01-0400 Respiratory rate 16 /min MD Nolberto Hernandez Work Phone: [facility] 11-15-2022 13:01-0400 SaO2% (BldA) [Mass fraction] 96 % MD Nolberto Hernandez Work Phone: [facility] 11-15-2022 13:01-0400 Systolic blood pressure 129 mm[Hg] MD Nolberto Hernandez Work Phone: [facility] 11-15-2022 05:00-0400 Body temperature 97.7 [degF] MD Nolberto Hernandez Work Phone: [facility] 11-15-2022 05:00-0400 Heart rate 67 /min MD Nolberto Hernandez Work Phone: [facility] 11-12-2022 05:24-0400 Body weight 69.8 kg MD Nolberto Hernandez Work Phone: [facility] 11-10-2022 14:53-0400 Body height 180.34 cm MD Nolberto Hernandez Work Phone: [facility] 11-02-2022 12:29-0400 Body temperature 98.4 [degF] MD Nolberto Hernandez Work Phone: [facility] 11-02-2022 12:29-0400 Diastolic blood pressure 72 mm[Hg] MD Nolberto Hernandez Work Phone: [facility] 11-02-2022 12:29-0400 Heart rate 83 /min MD Nolberto Hernandez Work Phone: [facility] 11-02-2022 12:29-0400 Respiratory rate 16 /min MD Nolberto Hernandez Work Phone: [facility] 11-02-2022 12:29-0400 SaO2% (BldA) [Mass fraction] 97 % MD Nolberto Hernandez Work Phone: [facility] 11-02-2022 12:29-0400 Systolic blood pressure 142 mm[Hg] MD Nolberto Hernandez Work Phone: [facility] 11-02-2022 06:00-0400 Body weight 71 kg MD Nolberto Hernandez Work Phone: [facility] 10-31-2022 14:37-0400 Body height 180.34 cm MD Nolberto Hernandez Work Phone: [facility] 10-30-2022 22:31-0400 Diastolic blood pressure 110 mm[Hg] MD Nolberto Hernandez Work Phone: [facility] 10-30-2022 22:31-0400 Heart rate 65 /min MD Nolberto Hernandez Work Phone: [facility] 10-30-2022 22:31-0400 Respiratory rate 18 /min MD Nolberto Hernandez Work Phone: [facility] 10-30-2022 22:31-0400 SaO2% (BldA) [Mass fraction] 96 % MD Nolberto Hernandez Work Phone: [facility] 10-30-2022 22:31-0400 Systolic blood pressure 200 mm[Hg] MD Nolberto Hernandez Work Phone: [facility] 10-30-2022 19:11-0400 Body height 175.26 cm MD Nolberto Hernandez Work Phone: [facility] 10-30-2022 19:11-0400 Body weight 74.84 kg MD Nolberto Hernandez Work Phone: [facility] 10-30-2022 19:10-0400 Body temperature 98.6 [degF] MD Nolberto Hernandez Work Phone: [facility] Encounters Encounter Date Encounter Type Care Provider Facility Start: 12-17-2023 End: 12-17-2023 ambulatory IVON YOO Not Available Start: 12-17-2023 End: 12-17-2023 Clinisync Result Encounter Ivon Yoo REPAIR [employer]AN Work Phone: [facility] External [facility] Unsolicited Start: 12-17-2023 End: 12-17-2023 Clinisync Result Encounter Ivon Yoo REPAIR [employer] Work Phone: [facility] Unsolicited Start: 12-17-2023 End: 12-18-2023 Telephone encounter Ivon Yoo REPAIR [employer]AN Work Phone: [facility] Start: 12-12-2023 End: 12-12-2023 Bamboo flowsheet Ivon Yoo REPAIR [employer]ER[employer]AN Work Phone: [facility] Start: 12-12-2023 End: 12-12-2023 Bamboo flowsheet Ivon Yoo REPAIR [employer]AN Work Phone: [facility] Start: 12-12-2023 End: 12-12-2023 Office outpatient visit 25 minutes Ivon Graciaoll REPAIR [employer]ER[employer]AN [facility]: [facility] Comment on above: 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 (CMS/HCC) (Primary Dx); Encounter for medication monitoring; Intracranial atherosclerosis; Elevated hemoglobin A1c; Seizure (CMS/HCC) Start: 12-12-2023 End: 12-12-2023 ambulatory IVON YOO Not Available Start: 09-12-2023 End: 09-12-2023 Patient encounter procedure SHANNON JORDAN [facility] Start: 09-12-2023 End: 09-12-2023 ambulatory SHANNON JORDAN Facility:[facility] Start: 07-19-2023 End: 07-19-2023 ambulatory VION YOO Not Available Start: 06-05-2023 [facility]ulatory [facility] Start: 04-27-2023 ambulatory SHANNON JORDAN Facility: [facility] Start: 12-12-2022 End: 12-20-2022 Evaluation and management of inpatient Jose Martin Sen Facility:[facility] Start: 12-12-2022 End: 12-20-2022 Evaluation and management of inpatient MD Nolberto Hernandez Work Phone: [facility] Work Phone: Start: 12-10-2022 End: 12-12-2022 Evaluation and management of inpatient Davey Harding Facility:[facility] Start: 12-09-2022 End: 12-12-2022 Evaluation and management of inpatient MD Nolberto Hernandez Work Phone: [facility] Work Phone: Start: 12-07-2022 End: 12-07-2022 ambulatory Jose Martin Sen Facility:[facility] Start: 12-07-2022 End: 12-07-2022 ambulatory MD Nolberto Hernandez Work Phone: [facility] Work Phone: Start: 12-07-2022 End: 12-07-2022 Discharged Recurring MD Nolberto Hernandez Work Phone: [facility] [facility] [address] Start: 12-07-2022 Registered Recurring MD Nolberto alanis Work Phone: [facility] [address] Start: 11-02-2022 End: 11-15-2022 Evaluation and management of inpatient Jose Martin Sen Facility:[facility] Start: 11-02-2022 End: 11-15-2022 Evaluation and management of inpatient MD Nolberto Hernandez Work Phone: [facility] [place] [facility] Work Phone: Start: 10-30-2022 End: 11-02-2022 Evaluation and management of inpatient Davey Harding Facility:[facility] Start: 10-30-2022 End: 11-02-2022 Evaluation and management of inpatient MD Nolberto Hernandez Work Phone: [facility] [place] [facility] Work Phone: Start: 09-06-2022 End: 09-06-2022 Patient encounter procedure SHANNON JORDAN [facility] Start: 09-07-2021 End: 09-07-2021 Patient encounter procedure SHANNON JORDAN [facility] Start: 08-19-2018 End: 08-20-2018 Patient encounter procedure MARILYN HOY Facility:[facility] Start: 06-10-2018 End: 06-11-2018 Patient encounter procedure DEFAULT PHYSICIAN Facility:[facility] Start: 06-07-2018 End: 06-08-2018 Evaluation and management of inpatient MARILYN HOY Facility:[facility] Procedures Date Procedure Procedure Detail Performing Clinician Start: 12-17-2023 MLR HEMOGLOBIN A1C Yun Yoo REPAIR CAMERAMAN Work Phone: Start: 12-11-2022 MRI of head MD Nolberto [...] above: Performed By: #### C BC #### [facility] [address] [place] [address] Caneloravindra Freitas Start: 04-09-2006 Colonoscopy SHANNON JOYA History of ankle surgery CHARLES JORDAN History of operative procedure on lumbar spinal structure SHANNON JORDAN Plan of Treatment Date Care Activity Detail Author Start: 09-17-2024 End: 09-17-2024 Patient encounter procedure 09/17/2024 10:00 AM EDT Office Visit [facility] [address] [place] [address] Shannon Jordan, JARED [address] [place] [address] [facility] Start: 02-06-2024 End: 02-06-2024 Patient encounter procedure 02/06/2024 9:40 AM EST Office Visit [facility] [place] [address] [place] [phone] Ivon Yoo NP [address] [place] [phone] [facility] [address] Start: 12-17-2023 End: 12-17-2023 Professional / ancillary services management 12/17/2023 2:40 PM EDT Ancillary Procedure [facility] [address] [address] [facility] [place] [phone] [facility] [address] Start: 12-12-2023 End: 12-11-2024 Hemoglobin A1c/Hemoglobin.total in Blood Hemoglobin A1c Lab Routine Elevated hemoglobin A1c Expected: 12/12/2023 (Approximate), Expires: 12/11/2024 [facility] Comment on above: Expected: 12/12/2023 (Approximate), Expires: 12/11/2024 Start: 12-12-2023 End: 12-11-2024 Hepatic function 2000 panel - Serum or Plasma Hepatic function panel Lab Routine Encounter for medication monitoring Expected: 12/12/2023 (Approximate), Expires: 12/11/2024 [facility] Comment on above: Expected: 12/12/2023 (Approximate), Expires: 12/11/2024 Start: 12-12-2023 End: 12-11-2024 Lipid 1996 panel - Serum or Plasma Lipid panel Lab Routine Encounter for medication monitoring Expected: 12/12/2023 (Approximate), Expires: 12/11/2024 [facility] Work Phone: Comment on above: Expected: 12/12/2023 (Approximate), Expires: 12/11/2024 Start: 12-12-2023 End: 12-11-2024 US.doppler Carotid arteries - bilateral Vascular US carotid artery duplex bilateral Imaging Routine 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 (CMS/HCC) Expected: 12/12/2023 (Approximate), Expires: 12/11/2024 [facility] Comment on above: Expected: 12/12/2023 (Approximate), Expires: 12/11/2024 Start: 12-12-2023 End: 12-12-2023 Patient encounter procedure 12/12/2023 1:00 PM EDT Office Visit [facility] [place] [facility] [address] [place], [place] [address] [address] Ivon Yoo, VICTOR MANUEL [address] [place] [address] 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 (CMS/HCC) (Primary Dx); Intracranial atherosclerosis; Elevated hemoglobin A1c; Seizure (CMS/HCC) [facility] [address] Comment on above: 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 (CMS/HCC) (Primary Dx); Intracranial atherosclerosis; Elevated hemoglobin A1c; Seizure (CMS/HCC) Start: 12-19-2022 [facility] Start: 12-18-2022 Arrangement of care procedure [facility] Start: 12-13-2022 Administration of prophylactic treatment [facility] Start: 12-12-2022 Hospital admission [facility] Start: 12-12-2022 Referral to clinical direct support professional home health [facility] Start: 12-12-2022 [facility] Start: 12-12-2022 [facility] Start: 12-11-2022 Referral to rehabilitation physician [facility] Start: 12-10-2022 Hospital admission [facility] Start: 12-10-2022 Referral to neurologist [facility] Start: 11-15-2022 [facility] Start: 11-09-2022 Blood chemistry [facility] Start: 11-09-2022 [facility] Start: 11-08-2022 Blood chemistry [facility] Start: 11-08-2022 [facility] Start: 11-07-2022 Blood chemistry [facility] Start: 11-07-2022 [facility] Start: 11-06-2022 Administration of prophylactic treatment [facility] Start: 11-06-2022 Blood chemistry [facility] Start: 11-06-2022 [facility] Start: 11-05-2022 Blood chemistry [facility] Start: 11-05-2022 [facility] Start: 11-04-2022 Blood chemistry [facility] Start: 11-04-2022 [facility] Start: 11-03-2022 Blood chemistry [facility] Start: 11-03-2022 [facility] Start: 11-02-2022 Hospital admission [facility] Start: 11-02-2022 Referral to clinical direct support professional home health [facility] Start: 11-02-2022 Blood chemistry [facility] Start: 11-02-2022 End: 11-02-2022 [facility] Start: 11-01-2022 Blood chemistry [facility] Start: 11-01-2022 [facility] Start: 10-31-2022 Referral to rehabilitation physician [facility] Start: 10-31-2022 Blood chemistry [facility] Start: 10-31-2022 MRI of head MR head/brain wo con [facility] Start: 10-31-2022 End: 10-31-2022 [facility] Start: 10-30-2022 [facility] Start: 10-30-2022 Hospital admission [facility] Start: 10-30-2022 Physical therapy procedure [facility] Start: 10-30-2022 Referral to neurologist [facility] Start: 10-30-2022 Referral to occupati onal therapist [facility] Start: 10-30-2022 CT angiography of head [facility] Start: 10-30-2022 CT angiography of ne ck vessels [facility] Start: 10-30-2022 CT Head WO contrast [facility] Start: 10-30-2022 CT of head without contrast CT head stroke alert wo con [facility] Start: 10-30-2022 Plain chest X-ray XR chest 1V portab le [facility] Start: 10-30-2022 XR Chest Single view [facility] Anion gap measurement [facility] Basophils [#/volume] in Blood by Automated count [facility] Basophils/100 leukoc ytes in Blood by Automated count [facility] Bilirubin measuremen t, urine [facility] Color of Urine [facility] Detection of hemoglobin [facility] Eosinophils [#/volum e] in Blood [facility] Eosinophils/100 leukocytes in Blood by Automated count [facility] Erythrocyte distribu tion width [Ratio] by Automated count [facility] Erythrocytes [#/volu me] in Blood [facility] Glucose [Mass/volume ] in Urine by Test strip [facility] Hematocrit [Volume Fraction] of Blood [facility] Hemoglobin [Mass/vol ume] in Blood [facility] Leukocytes [#/volume ] corrected for nucleated erythrocytes in Blood by Automated coun [facility] Leukocytes [#/volume ] in Blood [facility] Lymphocytes [#/volum e] in Blood by Automated count [facility] Lymphocytes/100 leukocytes in Blood by Automated count [facility] MCH [Entitic mass] b y Automated count [facility] MCHC [Mass/volume] b y Automated count [facility] MCV [Entitic volume] by Automated count [facility] Measurement of keton es in urine using dipstick [facility] Monocytes [#/volume] in Blood by Automated count [facility] Monocytes/100 leukoc ytes in Blood by Automated count [facility] Neutrophils [#/volum e] in Blood by Automated count [facility] Neutrophils/100 leukocytes in Blood by Automated count [facility] Nucleated erythrocyt es [Presence] in Blood by Automated count [facility] Patient Education [facility] Work Phone: Patient referral [facility] Work Phone: Platelet mean volume [Entitic volume] in Blood by Automated count [facility] Platelets [#/volume] in Blood [facility] Protein measurement, urine [facility] Urinalysis, specific gravity measurement [facility] Urine dipstick for nitrite [facility] Urine dipstick for specific gravity [facility] Urine pH test [facility] Urobilinogen concentration, test strip measurement [facility] Payers Date Payer Category Payer Unknown [id number] 2022 Self-pay 1994 Medicare MEDICARE [id number] 1959 Medicare [id number] 1955 Unknown [id number] 1953 Unknown [id number] [id number] 1953 Unknown [id number] [id number] 1953 Unknown [id number] [id number] 1953 Unknown [id number] [id number] 1953 Unknown [id number] 2.16.840.1.181250.3.579.2.727 1953 Unknown [id number] 2.16.840.1.584025.3.579.2.125 9 1953 Unknown [id number] 2.16.840.1.061848.3.579.2.125 9 1955 Unknown [id number] 2.16.840.1.112636.3.579.2.125 9 1955 Unknown [id number] [id number] 9 Medicaid Medicaid [id number] Unknown Unknown [id number] [id number] Unknown [id number] 2.840.1.767123.3.579.2.531 Unknown [id number] 2..840.1.334047.3.579.2.531 Unknown [id number] [id number]1 Unknown [id number] [id number] Social History Date Type Detail Facility Tobacco smoking status No Smokin g Status Entered [facility] Start: 09-12-2023 End: 12-12-2023 Sex Assigned At Male [facility] Tobacco smoking status No Smokin g Status Entered [facility] Start: 10-30-2022 Tobacco smoking stat [facility] Current some day smoker [facility] Start: 1955 Sex Assigned At Male [facility] Start: 10-31-2022 End: 07-19-2023 Tobacco smoking status KYIS Never smoked tobacco (finding) [facility] Start: 12-12-2022 Tobacco smoking stat [facility] Ex-smoker (finding) [facility] Start: 07-19-2023 Tobacco use and exposure Smokeless tobacco non-user [facility] Start: 09-12-2023 End: 12-12-2023 Alcoholic beverage intake Lifetime non-drinker (finding) [facility] Start: 09-12-2023 End: 12-12-2023 History of Social function [facility] Start: 07-19-2023 Alcohol Comment 1 to 2 cups of caffeine per day [facility] Start: 1955 Sex assigned at Not on file [facility] Goals Date Patient Goal Desired Activity /State Functional Status Date Assessment Result Facility 12-20-2022 Functional status Patient is Pro gressing Toward Baseline [facility] Work Phone: 12-12-2022 Functional status Patient Not at Baseline [facility] Work Phone: 11-15-2022 Functional status Patient Not at Baseline [facility] Work Phone: 11-02-2022 Functional status Patient Not at Baseline [facility] Work Phone: Mental Status Date Assessment Result Facility 12-20-2022 Cognitive function Cognitive Sta tus Patient is Progressing Toward Baseline [facility] Work Phone: 12-12-2022 Cognitive function Cognitive Sta tus Patient Not at Baseline [facility] Work Phone: 11-15-2022 Cognitive function Cognitive Sta tus Patient at Baseline [facility] Work Phone: 11-02-2022 Cognitive function Cognitive Sta tus Patient at Baseline [facility] Work Phone: Clinical Notes 09-07-2021 to 12-18-2023 Telephone Encounter - Ivon Yoo NP - 12/18/2023 3:09 PM EDTTelephone Encounter - Ivon Yoo NP - 12/18/2023 3:09 PM EDTTelephone Encounter - Volodymyr Carter MA - 12/18/2023 2:38 PM EDT Note Date & Type Note Facility 12-18-2023 Telephone encounter Note Acknowledged, thank you. [facility] 12-18-2023 Miscellaneous Notes Acknowledged, thank you. Dr. Patrick's office calls back. States that he will manage pts atorvastatin and willing to increase. They've already contacted the pt and informed that an increase will be made at next visit. I spoke with the nurse and she stated she will get the message to Dr. Patrick and let us know what he would like to do. I reviewed the patient's lab results from today. Total cholesterol level was elevated at 224, and LDL was elevated at 162. I called and spoke with the patient regarding this. I informed the patient that goal LDL level would be 70 or less to help reduce the risk of future stroke or other event such as heart attack. The patient verbalized understanding. I strongly recommended the patient call his primary care provider soon to discuss measures to help lower his cholesterol. I informed the patient that I think a dose increase of atorvastatin would be appropriate. However, I would defer this decision to Dr. Patrick unless he wants me to take over the prescription, as he is currently prescribing the atorvastatin. The patient verbalized understanding. Can you please notify Dr. Patrick's office and see if he is willing to increase the patient's atorvastatin? I am concerned about the patient's elevated LDL and the increased risk for future stroke if this is not adequately managed. If not, is Dr. Patrick okay with our office taking over management of atorvastatin? documented in this encounter [facility] 12-18-[address] Patrick's office calls back. States that he will manage pts atorvastatin and willing to increase. They've already contacted the pt and informed that an increase will be made at next visit. [facility] 12-18-2023 Telephone encounter Note I spoke with the nurse and she stated she will get the message to Dr. Patrick and let us know what he would like to do. [facility] 12-17-2023 Telephone encounter Note I reviewed the patient's lab results from today. Total cholesterol level was elevated at 224, and LDL was elevated at 162. I called and spoke with the patient regarding this. I informed the patient that goal LDL level would be 70 or less to help reduce the risk of future stroke or other event such as heart attack. The patient verbalized understanding. I strongly recommended the patient call his primary care provider soon to discuss measures to help lower his cholesterol. I informed the patient that I think a dose increase of atorvastatin would be appropriate. However, I would defer this decision to Dr. Patrick unless he wants me to take over the prescription, as he is currently prescribing the atorvastatin. The patient verbalized understanding. Can you please notify Dr. Patrick's office and see if he is willing to increase the patient's atorvastatin? I am concerned about the patient's elevated LDL and the increased risk for future stroke if this is not adequately managed. If not, is Dr. Patrick okay with our office taking over management of atorvastatin? T [facility] 12-12-2023 History of Presen t illness Narrative Images from the original note [...] wrist extensors , wrist flexor , and talent assistant strength 5/5. Very subtly decreased strength when compared to the left upper extremity. LUE strength deltoid , biceps , triceps , wrist extensors , wrist flexor , and talent assistant strength 5/5. RLE strength iliopsoas, quadriceps, tibialis anterior, plantar flexion, and dorsiflexion strength 5/5. LLE strength iliopsoas, quadriceps, tibialis anterior, plantar flexion, and dorsiflexion strength 5/5. Tone and bulk are normal. Sensory: Sensation is intact to light touch throughout all four extremities. Sensation is intact to temperature in all extremities. Reflexes: Deep tendon reflexes are 1+ and symmetric throughout. Coordination: [id number] testing subtle dysmetria on the right. Normal on the left. Rapid alternating movements are normal. Gait: Somewhat unsteady. Utilizing cane and receiving standby assistance from his . Review and summary of old records: Lipid panel on 08/02/23: Total cholesterol 183. Triglycerides 145. HDL 38. LDL 116. The patient presented to [facility] on 12/09/22 with a witnessed generalized tonic-clonic seizure. He had no prior history of seizure at the time. Routine EEG on 12/10/22: Normal MRI of the brain w/o contrast at [facility] on 12/10/22: No areas of acute ischemia. [...] 11.6% (low). MRI brain without contrast at [facility] on 10/30/22: Evidence of late subacute infarct involving the left thalamus region. This appears to be superimposed on cortical atrophy and moderately severe chronic microvascular ischemic changes. CT head without contrast at [facility] on 10/30/22: No evidence of acute intracranial [...] significant stenosis. Patent vertebral arteries. Labs at [facility] in 10/2022: LDL 179. 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 He was evaluated at [facility] in early October 2022 for dysarthria, right-sided [...] and intermittent dysarthria. The patient presented to [facility] again in mid November 2022 due to [...] new or worsening symptoms. Ivon Yoo NP [facility] Advanced Neurology documented in this encounter [facility] 12-12-2023 Instructions Ivon Yoo NP - 12/12/2023 1:00 PM EDT - Carotid ultrasound - Check labs documented in this encounter [facility] 09-12-2023 Evaluation + Plan note Diagnostic Tests PendingQuantiferon-TB Plus (Client Incubated) 09/12/23 [facility] 12-21-2022 Hospital Discharg e instructions Additional Instructions -Diet: low fat, low cholesterol. -Ambulate as tolerated. No driving unless cleared by physician, may ride in car. You will have Outpatient Therapy at [facility] ([phone] ext. [phone]). The order for this has been sent [...] to inform them prior to your appointment. [facility] Work Phone: 12-18-2022 Progress note Note Date/Time December 18, 2022 10:09am [facility] [address] [place] [address] Physiatry(Rehab) Progress Note Signed Patient: Viraj Doherty MR#: [id number] : 1955 Acct:[id number] Age/Sex: 67 / M Adm Date: 3 Loc: Room: [address] [place] [address] Type: ADM IN Attending Dr: Jose Martin [...] mg 12/12/22 18:42 Bisacodyl 10 Mg Supp.Rect TN 12/12/23 18:41 DAILY PRN Constipation Clopidogrel Bisulfate [...] 18:42 Docusate Enema 283 Mg/5 Ml Enema TN 12/12/23 18:41 DAILY PRN Constipation Enoxaparin Sodium [...] Tablet PO 12/16/23 08:59 Not Given DAILY [facility] Assessment/Plan Assessment/Plan (1) Dysarthria: Code(s): R47.1 - [...] equipment to enhance the patient's a functional sabianist Ensure adequate nutrition and hydration Sleep: No concerns. Pain: No issues. Discharge planning: Home with in a week or two. Plan: I completed a substantive portion of this encounter, the medical decision makingportion of this note in its entirety, including Allied health note review, nursing note review, pharmacy consultant note review, discussion with nursing and case management, and more than 50% of my time was spent on counseling and coordination of care, time spent 40 minutes Patient was personally seen by me, Dr. Sen, on the day of encounter, reviewed the history and the relevant portions of the chart, including current orders, allied health and pharmacy consultant notes, labs/imaging and performed garner elements of exam and I formulated the plan of care and facilitated the medical decision making. Documented By: Jose Martin Sen MD 12/18/22 1008 Signed By: <Electronically signed by Jose Martin Sen MD> 12/18/22 [id number] [facility] Work Phone: 1(612) 271-418910-21-2023 Progress note Author Jose Martin Sen [facility] December 16, 2022 9:30am Note Date/Time December 16, 2022 9 :30am [facility] [address] [place] [address] Physiatry(Rehab) Progress Note Signed Patient: Viraj Doherty MR#: [id number] : 1955 Acct:[id number] Age/Sex: 67 / M Adm Date: 3 Loc: Room: [address] [place] [address] Type: ADM IN Attending Dr: Jose Martin [...] mg 12/12/22 18:42 Bisacodyl 10 Mg Supp.Rect TN 12/12/23 18:41 DAILY PRN Constipation Clopidogrel Bisulfate [...] 18:42 Docusate Enema 283 Mg/5 Ml Enema TN 12/12/23 18:41 DAILY PRN Constipation Enoxaparin Sodium 40 mg 12/13/22:00 12/16/22 08:21 Enoxaparin 40 Mg/0.4 Ml Syringe [...] equipment to enhance the patient's a functional sabianist Ensure adequate nutrition and hydration Sleep: No concerns. Pain: No issues. Discharge planning: Home with in a week or two. Plan: I completed a substantive portion of this encounter, the medical decision makingportion of this note in its entirety, including Allied health note review, nursing note review, pharmacy consultant note review, discussion with nursing and case management, and more than 50% of my time was spent on counseling and coordination of care, time spent 40 minutes Patient was personally seen by me, Dr. Sen, on the day of encounter, reviewed the history and the relevant portions of the chart, including current orders, allied health and pharmacy consultant notes, labs/imaging and performed garner elements of exam and I formulated the plan of care and facilitated the medical decision making. Documented By: Jose Martin Sen MD 12/16/22 [id number] Signed By: <Electronically signed by oJse Martin Sen MD> 12/16/22 0680 [facility] Work Phone: 1(486) 388-297010-21-2023 Progress note Author Jose Martin Sen [facility] December 16, 2022 7:21am Note Date/Time December 14, 2022 1 2:52pm [facility] [address] [place] [address] Physiatry(Rehab) Progress Note Signed Patient: Viraj Doherty MR#: [id number] : 1955 Acct:[id number] Age/Sex: 67 / M Adm Date: 3 Loc: Room: [address] [place] [address] Type: ADM IN Attending Dr: Jose Martin [...] mg 12/12/22 18:42 Bisacodyl 10 Mg Supp.Rect TN 12/12/23 18:41 DAILY PRN Constipation Clopidogrel Bisulfate [...] 18:42 Docusate Enema 283 Mg/5 Ml Enema TN 12/12/23 18:41 DAILY PRN Constipation Enoxaparin Sodium [...] 160 mg DAILY LEVON Administration Assessment/Plan <Janice Altamirano, DRUM TESTER - Last Filed: 12/14/22 12:53> Assessment/Plan (1) [...] equipment to enhance the patient's a functional sabianist Ensure adequate nutrition and hydration Sleep: No concerns. Pain: No issues. Discharge planning: Home with in 7 to 10 days. I spent greater than 15 minutes for services, including gqnd-px-orql encounter with the patient, discussion of the case, plan of care, and exam; and slbpllq-iq-etgx activities, such as reviewing pertinent pharmacy consultant documentation, recent therapy notes, laboratory and radiology studies, and discussion of case with care team including physician, nursing, transplant case manager, and therapists. More than 50 [...] Allied health note review, nursing note review, pharmacy consultant note review, discussion with nursing and case management, and more than 50% of my time was spent on counseling and coordination of care, time spent 40 minutes Patient was personally seen by me, Dr. Sen, on the day of encounter, reviewed the history and the relevant portions of the chart, including current orders, allied health and pharmacy consultant notes, labs/imaging and performed garner elements of exam and I formulated the plan of care and facilitated the medical decision making. Encourage p.o. intake. Blood pressure less than 100 or 110 consistently, would consider fluid bolus. Documented By: Janice Altamirano APRN 12/14/22 1 246 Signed By: <Electronically signed by JASMIN Altamirano> 12/14/22 1253 <Electronically signed by Jose Martin Sen MD> 12/16/22 9978 [facility] Work Phone: 1([phone]) 331-368410-19-2023 Consult note Author Quynh Galvan [facility] December 14, 2022 7:01am Note Date/Time December 13, 2022 3 :52pm [facility] [address] [place] [address] Hospitalist Consult Note Signed Patient: Viraj Doherty MR#: [id number] : 1955 Acct:[id number] Age/Sex: 67 / M Adm Date: 3 Loc: Room: 1G7878-3 Type: ADM IN Attending Dr: Jose Martin Sen MD Copies to: MD Jose Martin Millan MD Linda Obika, APRN Obaydah M Daromar, MD~ HPI DATE OF CONSULTATION: 12/13/22 REQUESTING [...] noted in the HPI below [facility] Medical History (Updated 12/13/22 @ 11:18 by [...] mg 12/12/22 18:42 Bisacodyl 10 Mg Supp.Rect TN 10/16/24 18:41 DAILY PRN Constipation Clopidogrel Bisulfate [...] 18:42 Docusate Enema 283 Mg/5 Ml Enema TN 12/12/23 18:41 DAILY PRN Constipation Enoxaparin Sodium [...] Capsule PO 12/12/23 15:29 Not Given Q48H [facility] Sennosides 2 tab 12/13/22 12:00 Sennosides 8.6 Mg Tablet PO 12/13/23 11:59 DAILY@12 PRN If no BM in 2 days Sodium Chloride 0 ml 12/12/22 18:42 Sodium Chloride 0.9 % 10 Ml Syringe IV-PUSH 12/12/23 18:41 PRN PRN Flush Valsartan 160 mg 12/13/22 09:00 12/13/22 10:01 Valsartan 160 Mg Tablet PO 12/13/23 08:59 Not Given DAILY [facility] Exam Physical Exam Vital Signs: [...] % (Auto) 49.3, Lymph % (Auto) 36.9, Putnam % (Auto) 9.9, Eos % (Auto) 2.7, Baso % (Auto) 1.2, Nucleat RBC Rel Count 0.1, Neut # (Auto) 3.3, Lymph # (Auto) 2.5, Putnam # (Auto) 0.7, Eos # (Auto) 0.2, [...] 1543 Signed By: <Electronically signed by JASMIN aWlker> 12/13/22 1621 <Electronically signed by Quynh Galvan MD> 12/14/22 0701 [facility] Work Phone: 1([phone]) 278-279910-18-2023 History and physical note Author Jose Martin Sen [facility] December 13, 2022 3:06pm Note Date/Time December 13, 2022 1 0:16am [facility] [address] [place] [address] Physiatry (Rehab) H&P Signed Patient: Viraj Doherty MR#: [id number] : 1955 Acct:[id number] Age/Sex: 67 / M Adm Date: 3 Loc: Room: [address] [place] [address] Type: ADM IN Attending Dr: Jose Martin [...] cardiopulmonary symptoms. No GI/ concerns. [facility] Medical History (Updated 12/13/22 @ 11:18 by [...] Tablet) 10 mg PO DAILY [facility] Stop: 12/13/23 08:59 Last Admin: 12/13/22 10:01 Dose: Not Given Aspirin (Aspirin 81 Mg Tablet.Dr) 81 mg PO DAILY LEVON Stop: 12/13/23 08:59 Last Admin: 12/13/22 09:32 Dose: 81 mg Atorvastatin Calcium (Atorvastatin 80 Mg Tablet) 80 mg PO QPM LEVON Stop: 12/12/23 20:59 Last Admin: 12/12/22 20:30 Dose: 80 mg Bisacodyl (Bisacodyl 10 Mg Supp.Rect) 10 mg TN DAILY PRN PRN Reason: Constipation Stop: 10/16/24 18:41 Clopidogrel Bisulfate (Clopidogrel Bisulfate 75 Mg [...] Enema 283 Mg/5 Ml Enema) 283 mg TN DAILY PRN PRN Reason: Constipation Stop: 12/12/23 [...] Complex 150 Mg Capsule) 150 mgPO Q48H LEVON Stop: 12/12/23 15:29 Last Admin: 12/13/22 07:50 Dose: Not Given Sennosides (Sennosides 8.6 Mg Tablet) 2 tab PO DAILY@12 PRN PRN Reason: If no BM in 2 days Stop: 12/13/23 11:59 Sodium Chloride (Sodium Chloride 0.9 % 10 Ml Syringe) 0 ml IV-PUSH PRN PRN PRN Reason: Flush Stop: 12/12/23 18:41 Valsartan (Valsartan 160 Mg Tablet) 160 mg PO DAILY LEVON Stop: 12/13/23 08:59 Last Admin: 12/13/22 10:01 Dose: Not Given Exam Physical Exam Vital Signs: Temp Pulse Resp BP Pulse Ox O2 Del Method 98.7 F 73 19 96/63 L 97 Room Air 10/18/23 04:43 12/13/22 04:43 12/13/22 04:43 12/13/22 09:37 [...] % (Auto) 49.3 Lymph % (Auto) 36.9 Putnam % (Auto) 9.9 Eos % (Auto) 2.7 Baso % (Auto) 1.2 Nucleat RBC Rel Count 0.1 Neut # (Auto) 3.3 Lymph # (Auto) 2.5 Putnam # (Auto) 0.7 Eos # (Auto) 0.2 [...] 3 weeks Expected Discharge Destination: Home Rehabilitation [facility]: 01.2 Primary Diagnosis: Ischemic left brain stroke To have patient become more independent and to return home. Medical/ Functional Prognosis: Good Anticipated Functional Outcomes/Goals and Interventions: 1.Therapy Functional Outcome/Goal: Anticipate independent bed mobility Anticipated interventions: Physician management, PT, OT, RN TESTING, , Dietitian, RehabNursing, Case management 2. Therapy Functional Outcome/Goal: Anticipate independent for transfers Anticipated interventions: Physician management, PT, OT, RN TESTING, Case management, Dietitian, Rehab Nursing 3. Therapy Functional Outcome/Goal: Anticipate independent ambulation Anticipated interventions: Physician management, PT, OT, RN TESTING Case management, Dietitian, Rehab Nursing 4.Therapy Functional Outcome/Goal: Anticipate independent self-care Anticipated interventions: Physician management, PT, OT, RN TESTING, Case management, Dietitian, Rehab Nursing 5.Therapy Functional Outcome/Goal: Anticipate independent functional communication / swallowing Anticipated interventions: Physician management, PT, OT, RN TESTING, Case management, Dietitian, Rehab Nursing Required Therapy [...] therapy on as needed basis. Comments: RN TESTING to evaluate and treat patient?s cognition, language and communication skills, assess swallow function. Other: Dietitian, Rehab nursing, Wound, P&O, Neuropsychology as needed RATIONALE FOR IRF ADMISSION: Patient has both medical and functional complexities that require 24 hour daily monitoring and intervention from Director [employer] as well as other consulting physicians including internal medicine as well as 24 hour daily manager enterprise nursing - for medical safe / optimal management. Patient requires interdisciplinary therapy team rehabilitation care including OT, PT, RN TESTING, SW, Psychology, Rehab Nursing, requires and can [...] equipment to enhance the patient's a functional sabianist Ensure adequate nutrition and hydration Sleep: No concerns. Pain: No issues. Discharge planning: Home with in 7 to 10 days. I spent greater than 35 minutes for services, including rbmr-rt-wjzl encounter with the patient, discussion of the case, plan of care, and exam; and uyldoqt-fr-pubu activities, such as reviewing pertinent pharmacy consultant documentation, recent therapy notes, laboratory and radiology studies, and discussion of case with care team including physician, nursing, transplant case manager, and therapists. More than 50 % of time was spent on patient/family counseling or coordination ofcare. Plan: I completed a substantive portion of this encounter, the medical decision makingportion of this note in its entirety, including Allied health note review, nursing note review, pharmacy consultant note review, discussion with nursing and case management, and more than 50% of my time was spent on counseling and coordination of care, time spent 75 minutes Patient was personally seen by me, Dr. Sen, on the day of encounter, within 24hours of rehab admission, reviewed the history and the relevant portions of the chart, including current orders, allied health and pharmacy consultant notes, labs/imaging and performed garner elements of exam and I formulated the plan of care and facilitated the medical decision making. In addition to above-Goal BP 140-160s with intracranial atherosclerosis. Seizureprecautions. Documented By: Janice Altamirano APRN 12/13/22 1 014 Signed By: <Electronically signed by JASMIN Altamirano> 12/13/22 1120 <Electronically signed by Jose Martin Sen MD> 12/13/22 1506 [facility] Work Phone: [phone] 950-450110-17-2023 Consult note Author Santosh Rivera [facility] December 12, 2022 2:19pm Note Date/Time December 12, 2022 2 :11pm [facility] [address] [place] [address] Physiatry (Rehab) Consult Note Signed Patient: Viraj Doherty MR#: [id number] : 1955 Acct:[id number] Age/Sex: 67 / M Adm Date: 3 Loc: Room: [address] [place] [address] Type: ADM IN Attending Dr: Davey Harding [...] [facility]iparesis [facility] who presented to [facility] following a generalized seizure witnessed by [...] noted below or in HPI [facility] Medical History CVA (cerebral vascular accident) HTN [...] of left thalamic CVA who presents to [facility] IRF following hospitalization for new left MCA CVA and seizure disorder. He has continued impaired mobility and impaired independence with ADLs and IADLs requiring PT/OT/RN TESTING 5-7 days/week 3 hours/day to maximize safety [...] supervision is both reasonable and necessary, including vxlw-gr-strc visits at least 3 days/week with the [...] Allied health note review, nursing note review, pharmacy consultant note review, discussion with nursing and case management, and more than 50% of my time was spent on counseling and coordination of care, time spent 65 minutes Patient was personally seen by me, Dr. Rivera, on the day of encounter, reviewed the history and the relevant portions of the chart, including current orders, allied health and pharmacy consultant notes, labs/imaging and performed garner elements of exam and I formulated the plan of care and facilitated the medical decision making. Documented By: Santosh Rivera MD 1410 Signed By: <Electronically signed by Santosh Rivera MD> 12/12/22 1419 [facility] Work Phone: 1(260) 612-428310-17-2023 Progress note Author Davey Harding [facility] December 12, 2022 1:27pm Note Date/Time December 12, 2022 1 :27pm [facility] [address] [place] [address] Hospitalist Progress Note Signed Patient: Viraj Doherty MR#: [id number] : 1955 Acct:[id number] Age/Sex: 67 / M Adm Date: 3 Loc: Room: [address] [place] [address] Type: ADM IN Attending Dr: Davey Harding [...] 12/12/22 10:14 Aspirin 81 Mg Tablet. PO 10/14/24 08:59 81 mg DAILY LEVON Administration Atorvastatin [...] <Electronically signed by Davey Harding MD> 12/12/221326 [facility] Work Phone: 1([phone]) 825-542810-17-2023 Discharge summary Author Davey Harding [facility] October 17th, 2023 1:25pm Note Date/Time December 11, 2022 2 :52pm [facility] [address] [place] [address] Discharge Summary Signed Patient: Viraj Doherty MR#: [id number] : 1955 Acct:[id number] Age/Sex: 67 / M Adm Date: 3 Loc: Room: [address] [place] [address]: Davey Harding MD Copies to: [...] % (Auto) 58.7, Lymph % (Auto) 30.3, Putnam % (Auto) 7.5, Eos % (Auto) 2.3, Baso % (Auto) 1.2, Nucleat RBC Rel Count 0.1, Neut # (Auto) 4.7, Lymph # (Auto) 2.4, Putnam # (Auto) 0.6, Eos # (Auto) 0.2, [...] Discharge Plan Discharge Plan Patient Disposition: Rehab [facility] Activity: Other Comment: Please follow seizure precautions [...] 40 mg subcut Q14D Qty: 0 0RF opalcuyzny-vddyifubl-pwkxqbwcc 10-320-25 mg tablet 1 tab PO DAILY [...] restart this. Follow Up: [facility] [Outside] - 12/26/22 9:00 am Documented By: Davey Harding MD 12/11/22 1440 Signed By: <Electronically signed by Davey Harding MD> 12/12/22 1323 [facility] Work Phone: 1(852) 437-461210-16-2023 Progress note Author Jose David Aponte [facility] December 11, 2022 3:31pm Note Date/Time December 11, 2022 3 :31pm [facility] [address] [place] [address] Neurology Progress Note Signed Patient: Viraj Doherty MR#: [id number] : 1955 Acct:[id number] Age/Sex: 67 / M Adm Date: 3 Loc: Room: [address] [place] [address] Type: ADM IN Attending Dr: Davey Harding [...] ST Recommendations ST Recommended Services at Speech Therapy,24/7 Supervision Discharge Assessment/Plan (1) Seizure: Code(s): R56.9 [...] rapidly alternating movements. No limb dysmetria with ufuopk-vdsz-ticaou testing. DATA REVIEW: -CT head without acute [...] Documented By: Jose David Aponte DO 12/11/22 0926 Signed By: <Electronically signed by Jose David Aponte DO> 12/11/22 153 [facility] Work Phone: 1(221) 101-915010-16-2023 Progress note Author Davey Harding [facility] December 11, 2022 3:09pm Note Date/Time December 11, 2022 3 :09pm [facility] [address] [place] [address] Hospitalist Progress Note Signed Patient: Viraj Doherty MR#: [id number] : 1955 Acct:[id number] Age/Sex: 67 / M Adm Date: 3 Loc: Room: [address] [place] [address] Type: ADM IN Attending Dr: Davey Harding [...] signed by Davey Harding MD> 12/11/22 1509 [facility] Work Phone: 1(777) 539-522110-16-2023 Progress note Author Mindi Juan [facility] December 10, 2022 10:03pm Note Date/Time December 10, 2022 9 :59pm [facility] [address] [place] [address] Hospitalist Progress Note Signed Patient: Viraj Doherty MR#: [id number] : 1955 Acct:[id number] Age/Sex: 67 / M Adm Date: 3 Loc: Room: [address] [place] [address] Type: ADM IN Attending Dr: Mindi Juan [...] Laboratory work up and Imaging studies reviewed court recording monitor - reviewed EKG - personally reviewed [...] <Electronically signed by Mindi Juan MD> 12/10/222202 [facility] Work Phone: [phone]) 224-254210-15-2023 Consult note Author Jose David Aponte [facility] December 10, 2022 3:17pm Note Date/Time December 10, 2022 1 0:51am [facility] [address] [place] [address] Neurology Consult Note Signed Patient: Viraj Doherty MR#: [id number] : 1955 Acct:[id number] Age/Sex: 67 / M Adm Date: 3 Loc: Room: [address] [place] [address] Type: ADM IN Attending Dr: Mindi Juan MD Copies to: DO Marilyn Abbott MD Ruta Semaskiene, MD~ HPI Consult Date: 12/10/22 [employer] As[employer]er: Jose David Aponte DO [facility] Medical History CVA (cerebral vascular accident) HTN [...] rapidly alternating movements. No limb dysmetria with nmzqbf-ysid-fvrxqv testing. DATA REVIEW: -CT head without acute [...] signed by Jose David Aponte DO> 12/10/22 7495 [facility] Work Phone: [phone]) 248-918810-15-2023 History and physical note Author Ton Wilkinson [facility] December 10, 2022 12:15am Note Date/Time December 09, 2022 1 1:30pm [facility] [address] [place] [address] Hospitalist H&P Signed Patient: Viraj Doherty MR#: [id number] : 1955 Acct:[id number] Age/Sex: 67 / M Adm Date: 3 Loc: Room: [address] [place] [address] Type: ADM IN Attending Dr: Ton Wilkinson MD Copies to: MD Ton Millan MD~ HPI DATE OF EXAMINATION: 12/09/22 CHIEF COMPLAINT: Seizure HISTORY OF PRESENT ILLNESS: This is a 67-year-old male with recent history of thalamic CVA who had a witnessed seizure today and was transferred to the [facility]. The patient had a witnessed generalized seizure by his . No prior history of seizure. Deniesany chest pain headache visual changes or no neurologic symptoms. Noncontrast CT of the head did not show any acute changes. The patient was admitted to [facility] for further management Review of Systems Review of Systems All other systems reviewed & are negative unless noted below or in HPI [facility] Medical History CVA (cerebral vascular accident) HTN [...] 2 Documented By: Ton Wilkinson MD 12/09/22 6787 Signed By: <Electronically signed by Ton Wilkinson MD> 12/10/22 0015 [facility] Work Phone: 1(702) 465-513209-19-2023 Progress note Author Jose Martin Sen [facility] November 14, 2022 10:36am Note Date/Time November 14, 2022 10:36am [facility] [address] [place] [address] Physiatry(Rehab) Progress Note Signed Patient: Viraj Doherty MR#: [id number] : 1955 Acct:[id number] Age/Sex: 67 / M Adm Date: 3 Loc: Room: 5Y4396-6 Type: ADM IN Attending Dr: Jose Martin [...] Case was discussed between ER physician and [place] intervention[facility] radiology who requested the patient stay [...] day by day. 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 [...] mg 11/02/22 15:00 Bisacodyl 10 Mg Supp.Rect TN 11/02/23 14:59 DAILY PRN Constipation Clopidogrel Bisulfate 75 mg 11/03/22 09:00 11/14/22 09:10 Clopidogrel Bisulfate 75 Mg Tablet PO 11/03/23 08:59 75 mg DAILY LEVON Administration Docusate Sodium 100 mg 11/02/22 15:00 Docusate 100 Mg Capsule PO 11/02/23 14:59 BID PRN Constipation Docusate Sodium 283 mg 11/02/22 15:00 Docusate Enema 283 Mg/5 Ml Enema TN 11/02/23 14:59 DAILY PRN Constipation Enoxaparin Sodium [...] hypertensive urgency with systolic blood pressures in [id number] Continue with his current antihypertensive regimen and [...] DVT prophylaxis: Continue Functional status: Impaired. PT/OT/RN TESTING as ordered Discharge planning: Home 11/14/22 I spent greater than 35 minutes for services, including terz-ww-oury encounter with the patient, discussion of the case, plan of care, and exam; and ewkpiel-lq-amjf activities, such as reviewing pertinent pharmacy consultant documentation, recent therapy notes, laboratory and radiology studies, and discussion of case with care team including physician, nursing, transplant case manager, and therapists. More than 50 % of time was spent on patient/family counseling or coordination ofcare. Documented By: Jose Martin Sen MD 11/14/221034 Signed By: <Electronically signed by Jose Martin Sen MD> 11/14/22 1036 [facility] Work Phone: 1(295) 814-250709-18-2023 Progress note Author Jose Martin Sen [facility] November 13, 2022 12:08pm Note Date/Time November 11, 2022 11:02am [facility] [address] [place] [address] Physiatry(Rehab) Progress Note Signed Patient: Viraj Doherty MR#: [id number] : 1955 Acct:[id number] Age/Sex: 67 / M Adm Date: 3 Loc: 5T Room: 1H8291-5 Type: ADM IN Attending Dr: Jose Martin [...] Case was discussed between ER physician and [place] intervention[facility] radi[facility] who requested the patient stay [...] day by day. 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 Dysarthric speech. Objective <Janice Altamirano DRUM TESTER - Last Filed: 11/11/22 11:02> Labs 11/08/22 [...] mg 11/02/22 15:00 Bisacodyl 10 Mg Supp.Rect TN 11/02/23 14:59 DAILY PRN Constipation Clopidogrel Bisulfate 75 mg 11/03/22 09:00 11/11/22 09:27 Clopidogrel Bisulfate 75 Mg Tablet PO 11/03/23 08:59 75 mg DAILY LEVON Administration Docusate Sodium 100 mg 11/02/22 15:00 Docusate 100 Mg Capsule PO 11/02/23 14:59 BID PRN Constipation Docusate Sodium 283 mg 11/02/22 15:00 Docusate Enema 283 Mg/5 Ml Enema TN 11/02/23 14:59 DAILY PRN Constipation Enoxaparin Sodium [...] 320 mg DAILY LEVON Administration Assessment/Plan <Janice Altamirano APRN - Last Filed: 11/11/22 11:02> Assessment/Plan (1) [...] hypertensive urgency with systolic blood pressures in [id number] Continue with his current antihypertensive regimen and [...] DVT prophylaxis: Continue Functional status: Impaired. PT/OT/RN TESTING as ordered Discharge planning: Home next week, tentatively 11/14/22 I spent greater than 15 minutes for services, including qarw-hn-fjbj encounter with the patient, discussion of the case, plan of care, and exam; and lsxmrpl-td-bkmq activities, such as reviewing pertinent pharmacy consultant documentation, recent therapy notes, laboratory and radiology studies, and discussion of case with care team including physician, nursing, transplant case manager, and therapists. More than 50 [...] hypertensive urgency with systolic blood pressures in [id number] Continue with his current antihypertensive regimen and [...] the chart, including currentorders, allied health and pharmacy consultant notes, labs/imaging and plan of care as above. Documented By: Janice Altamirano APRN 11/11/22 1 059 Signed By: <Electronically signed by JASMIN Altamirano> 11/11/22 1102 <Electronically signed by Jose Martin Sen MD> 11/13/22 7732 [facility] Work Phone: 1(105) 735-292609-18-2023 Progress note Author Jose Martin Sen [facility] November 13, 2022 12:07pm Note Date/Time November 09, 2022 12:58pm [facility] [address] [place] [address] Physiatry(Rehab) Progress Note Signed Patient: Viraj Doheryt MR#: [id number] : 1955 Acct:[id number] Age/Sex: 67 / M Adm Date: 3 Loc: Room: 1M6182-9 Type: ADM IN Attending Dr: Jose Martin [...] Case was discussed between ER physician and [place] intervention[facility] radiology who requested the patient stay [...] day by day. 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 Review of Systems <Janice Altamirano, DRUM TESTER - Last Filed: 11/09/22 13:00> Review of Systems All other systems reviewed & are negative unless noted below or in HPI Exam <Janice JASMIN Altamirano - Last Filed: 11/09/22 13:00> Physical Exam [...] and affect appropriate. Dysarthric speech. Objective <Janice JASMIN Altamirano - Last Filed: 11/09/22 13:00> Labs 11/08/22 [...] mg 11/02/22 15:00 Bisacodyl 10 Mg Supp.Rect TN 11/02/23 14:59 DAILY PRN Constipation Clopidogrel Bisulfate 75 mg 11/03/22 09:00 11/09/22 09:10 Clopidogrel Bisulfate 75 Mg Tablet PO 11/03/23 08:59 75 mg DAILY LEVON Administration Docusate Sodium 100 mg 11/02/22 15:00 Docusate 100 Mg Capsule PO 11/02/23 14:59 BID PRN Constipation Docusate Sodium 283 mg 11/02/22 15:00 Docusate Enema 283 Mg/5 Ml Enema TN 11/02/23 14:59 DAILY PRN Constipation Enoxaparin Sodium [...] 320 mg DAILY LEVON Administration Assessment/Plan <Janice Altamirano APRN - Last Filed: 11/09/22 [...] hypertensive urgency with systolic blood pressures in [id number] Continue with his current antihypertensive regimen and [...] DVT prophylaxis: Continue Functional status: Impaired. PT/OT/RN TESTING as ordered Discharge planning: Home next week, tentatively 11/14/22 I spent greater than 15 minutes for services, including [id number] encounter with the patient, discussion of the case, plan of care, and exam; and [id number] activities, such as reviewing pertinent pharmacy consultant documentation, recent therapy notes, laboratory and radiology studies, and discussion of case with care team including physician, nursing, transplant case manager, and therapists. More than 50 [...] hypertensive urgency with systolic blood pressures in [id number] Continue with his current antihypertensive regimen and [...] Allied health note review, nursing note review, pharmacy consultant note review, discussion with nursing and case management, and more than 50% of my time was spent on counseling and coordination of care, time spent 25 minutes Patient was personally seen by me, Dr. Sen, on the day of encounter, reviewed the history and the relevant portions of the chart, including current orders, allied health and pharmacy consultant notes, labs/imaging and performed garner elements of exam and I formulated the plan of care and facilitated the medical decision making. Documented By: Janice Altamirano APRN 11/09/22 1 251 Signed By: <Electronically signed by JASMIN Altamirano> 11/09/22 1300 <Electronically signed by Jose Martin Sen MD> 11/13/22 1643 [facility] Work Phone: 1(389) 517-155309-13-2023 Progress note Author Jose Martin Sen [facility] November 08, 2022 11:51am Note Date/Time November 08, 2022 11:51am [facility] [address] [place] [address] Physiatry(Rehab) Progress Note Signed Patient: Viraj Doherty MR#: [id number] : 1955 Acct:[id number] Age/Sex: 67 / M Adm Date: 3 Loc: Room: [address] [place] [address] Type: ADM IN Attending Dr: Jose Martin [...] Case was discussed between ER physician and [place] interventional radiology who requested the patient stay [...] day by day. 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9 Baso % (Auto) 0.9 Nucleat RBC Rel Count 0.1 Neut # (Auto) 5.3 Lymph # (Auto) 2.7 [place] # (Auto) 1.3 H Eos # (Auto) 0.1 Baso # (Auto) 0.1 PHA Creatinine Clear 66.04 Sodium 137 Potassium 3.5 Chloride 103 Carbon Dioxide 26.8 Anion Gap 10.7 BUN 27 H Creatinine 1.09 Est GFR (CKD-EPI) > 60.0 Glucose 104 H Calcium 9.3 Urine Color Urine Appearance Urine pH Ur Specific [place] Urine Protein Urine Glucose (UA) Urine Ketones [...] mg 11/02/22 15:00 Bisacodyl 10 Mg Supp.Rect TN 11/02/23 14:59 DAILY PRN Constipation Clopidogrel Bisulfate 75 mg 11/03/22 09:00 11/08/22 09:50 Clopidogrel Bisulfate 75 Mg Tablet PO 11/03/23 08:59 75 mg DAILY LEVON Administration Docusate Sodium 100 mg 11/02/22 15:00 Docusate 100 Mg Capsule PO 11/02/23 14:59 BID PRN Constipation Docusate Sodium 283 mg 11/02/22 15:00 Docusate Enema 283 Mg/5 Ml Enema TN 11/02/23 14:59 DAILY PRN Constipation Enoxaparin Sodium [...] hypertensive urgency with systolic blood pressures in [id number] Continue with his current antihypertensive regimen and [...] DVT prophylaxis: Continue Functional status: Impaired. PT/OT/RN TESTING as ordered Discharge planning: Home next week, tentatively 11/14/22 Plan: I completed a substantive portion of this encounter, the medical decision makingportion of this note in its entirety, including Allied health note review, nursing note review, pharmacy consultant note review, discussion with nursing and case management, and more than 50% of my time was spent on counseling and coordination of care, time spent 30 minutes Patient was personally seen by me, Dr. Sen, on the day of encounter, reviewed the history and the relevant portions of the chart, including current orders, allied health and pharmacy consultant notes, labs/imaging and performed garner elements of exam and I formulated the plan of care and facilitated the medical decision making. Documented By: Jose Martin Sen MD 11/08/22 1149 Signed By: <Electronically signed by Jose Martin Sen MD> 11/08/22 1151 [facility] Work Phone: 1(196) 876-562909-13-2023 Progress note Author Nu [facility] November 08, 2022 9:11am Note Date/Time November 07, 2022 4:12pm [facility] [address] [place] [address] Hospitalist Progress Note Signed Patient: Viraj Doherty MR#: [id number] : 1955 Acct:[id number] Age/Sex: 67 / M Adm Date: 3 Loc: Room: 9P7738-5 Type: ADM IN Attending Dr: Jose Martin [...] mg 11/02/22 15:00 Bisacodyl 10 Mg Supp.Rect TN 11/02/23 14:59 DAILY PRN Constipation Clopidogrel Bisulfate 75 mg 11/03/22 09:00 11/07/22 09:32 Clopidogrel Bisulfate 75 Mg Tablet PO 11/03/23 08:59 75 mg DAILY LEVON Administration Docusate Sodium 100 mg 11/02/22 15:00 Docusate 100 Mg Capsule PO 11/02/23 14:59 BID PRN Constipation Docusate Sodium 283 mg 11/02/22 15:00 Docusate Enema 283 Mg/5 Ml Enema TN 11/02/23 14:59 DAILY PRN Constipation Enoxaparin Sodium [...] signed by Nu Nur MD> 11/08/22 0911 [facility] Work Phone: 1([phone]) 853-495309-12-2023 Progress note Author Jose Martin Sen [facility] November 07, 2022 11:59am Note Date/Time November 07, 2022 10:25am [facility] [address] [place] [address] Physiatry(Rehab) Progress Note Signed Patient: Viraj Doherty MR#: [id number] : 1955 Acct:[id number] Age/Sex: 67 / M Adm Date: 3 Loc: 5T Room: 8J4741-4 Type: ADM IN Attending Dr: Jose Martin [...] Case was discussed between ER physician and [place] interventional radiology who requested the patient stay [...] day by day. 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 [...] mg 11/02/22 15:00 Bisacodyl 10 Mg Supp.Rect TN 11/02/23 14:59 DAILY PRN Constipation Clopidogrel Bisulfate 75 mg 11/03/22 09:00 11/07/22 09:32 Clopidogrel Bisulfate 75 Mg Tablet PO 11/03/23 08:59 75 mg DAILY LEVON Administration Docusate Sodium 100 mg 11/02/22 15:00 Docusate 100 Mg Capsule PO 11/02/23 14:59 BID PRN Constipation Docusate Sodium 283 mg 11/02/22 15:00 Docusate Enema 283 Mg/5 Ml Enema TN 11/02/23 14:59 DAILY PRN Constipation Enoxaparin Sodium [...] hypertensive urgency with systolic blood pressures in [id number] Continue with his current antihypertensive regimen and [...] improved, 3.8 today. -Diet as per RN TESTING and dietitian. -Monitor BP goal ~160 SBP [...] DVT prophylaxis: Continue Functional status: Impaired. PT/OT/RN TESTING as ordered Discharge planning: Home next week, tentatively 11/14/22/ Plan: I completed a substantive portion of this encounter, the medical decision makingportion of this note in its entirety, including Allied health note review, nursing note review, pharmacy consultant note review, discussion with nursing and case management, and more than 50% of my time was spent on counseling and coordination of care, time spent 30 minutes Patient was personally seen by me, Dr. Sen, on the day of encounter, reviewed the history and the relevant portions of the chart, including current orders, allied health and pharmacy consultant notes, labs/imaging and performed garner elements of exam and I formulated the plan of care and facilitated the medical decision making. Documented By: Jose Martin Sen MD 11/07/22 1025 Signed By: <Electronically signed by Jose Martin Sen MD> 11/07/22 2348 [facility] Work Phone: 1(216) 641-773909-11-2023 Progress note Author Jose Martin Sen [facility] November 06, 2022 12:00pm Note Date/Time November 06, 2022 11:16am [facility] [address] [place] [address] Physiatry(Rehab) Progress Note Signed Patient: Viraj Doherty MR#: [id number] : 1955 Acct:[id number] Age/Sex: 67 / M Adm Date: 3 Loc: Room: [address] [place] [address] Type: ADM IN Attending Dr: Jose Martin [...] Case was discussed between ER physician and [place] interventional radiology who requested the patient stay [...] day by day. 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 [...] Room Air 11/06/22 10:02 11/06/22 10:02 11/06/22 10:11/06/22 10:11/06/22 10:11/06/22 10:11 Narrative: General: Awake, [...] mg 11/02/22 15:00 Bisacodyl 10 Mg Supp.Rect TN 11/02/23 14:59 DAILY PRN Constipation Clopidogrel Bisulfate 75 mg 11/03/22 09:00 11/06/22 09:59 Clopidogrel Bisulfate 75 Mg Tablet PO 11/03/23 08:59 75 mg DAILY LEVON Administration Docusate Sodium 100 mg 11/02/22 15:00 Docusate 100 Mg Capsule PO 11/02/23 14:59 BID PRN Constipation Docusate Sodium 283 mg 11/02/22 15:00 Docusate Enema 283 Mg/5 Ml Enema TN 11/02/23 14:59 DAILY PRN Constipation Enoxaparin Sodium [...] hypertensive urgency with systolic blood pressures in [id number] Continue with his current antihypertensive regimen and [...] DVT prophylaxis: Continue Functional status: Impaired. PT/OT/RN TESTING as ordered Discharge planning: Home next week. Plan: I completed a substantive portion of this encounter, the medical decision makingportion of this note in its entirety, including Allied health note review, nursing note review, pharmacy consultant note review, discussion with nursing and case management, and more than 50% of my time was spent on counseling and coordination of care, time spent 30 minutes Patient was personally seen by me, Dr. Sen, on the day of encounter, reviewed the history and the relevant portions of the chart, including current orders, allied health and pharmacy consultant notes, labs/imaging and performed garner elements of exam and I formulated the plan of care and facilitated the medical decision making. Documented By: Jose Martin Sen MD 11/06/22 1115 Signed By: <Electronically signed by Jose Martin Sen MD> 11/06/22 1200 [facility] Work Phone: 1(107) 205-858909-09-2023 Progress note Author Jose Martin Sen [facility] November 04, 2022 10:52am Note Date/Time November 04, 2022 10:52am [facility] [address] [place] [address] Physiatry(Rehab) Progress Note Signed Patient: Viraj Doherty MR#: [id number] : 1955 Acct:[id number] Age/Sex: 67 / M Adm Date: 3 Loc: Room: 7R4428-2 Type: ADM IN Attending Dr: Jose Martin [...] Case was discussed between ER physician and [place] interventional radiology who requested the patient stay [...] day by day. 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 [...] mg 11/02/22 15:00 Bisacodyl 10 Mg Supp.Rect TN 11/02/23 14:59 DAILY PRN Constipation Clopidogrel Bisulfate 75 mg 11/03/22 09:00 11/04/22 08:39 Clopidogrel Bisulfate 75 Mg Tablet PO 11/03/23 08:59 75 mg DAILY LEVON Administration Docusate Sodium 100 mg 11/02/22 15:00 Docusate 100 Mg Capsule PO 11/02/23 14:59 BID PRN Constipation Docusate Sodium 283 mg 11/02/22 15:00 Docusate Enema 283 Mg/5 Ml Enema TN 11/02/23 14:59 DAILY PRN Constipation Enoxaparin Sodium [...] hypertensive urgency with systolic blood pressures in [id number] This was slowly lowered during his inpatient [...] DVT prophylaxis: Continue Functional status: Impaired. PT/OT/RN TESTING as ordered Discharge planning: Home 1-2 weeks, pending progress. Plan: I completed a substantive portion of this encounter, the medical decision makingportion of this note in its entirety, including Allied health note review, nursing note review, pharmacy consultant note review, discussion with nursing and case management, and more than 50% of my time was spent on counseling and coordination of care, time spent 30 minutes Patient was personally seen by me, Dr. Sen, on the day of encounter, reviewed the history and the relevant portions of the chart, including current orders, allied health and pharmacy consultant notes, labs/imaging and performed garner elements of exam and I formulated the plan of care and facilitated the medical decision making. Documented By: Jose Martin Sen MD 11/04/22 1050 Signed By: <Electronically signed by Jose Martin Sen MD> 11/04/22 1052 [facility] Work Phone: 1(145) 891-883509-08-2023 Consult note Author Sara Osorio [facility] November 03, 2022 6:45pm Note Date/Time November 03, 2022 2:03pm [facility] [address] [place] [address] Hospitalist Consult Note Signed with Addenda Patient: Viraj Doherty MR#: [id number] : 1955 Acct:[id number] Age/Sex: 67 / M Adm Date: 3 Loc: Room: [address] [place] [address] Type: ADM IN Attending Dr: Jose Martin [...] stroke. Patient admitted to inpatient rehab unit. [facility] medicine hasbeen consulted for medical management [...] ER physician discussed with stroke team in [place] who did not recommend TNK as patient was outside the window and was recommended for admission for MRI and neurology evaluation with the commencement of DAPT therapy and statin therapy. Patient was subsequently stabilized and admitted to the inpatient rehab unit. Patient per patient's was admitted to [facility] 2 years prior with uncontrolled hypertension and [...] mentioned elsewhere in the documentation. [facility] Medical History CVA (cerebral vascular accident) HTN [...] 11/03/22 09:00 11/03/22 09:01 Aspirin 81 Mg Tablet.Dr PO 11/03/23 08:59 81 mg DAILY LEVON Administration Atorvastatin Calcium 80 mg 11/02/22 21:00 11/02/22 21:25 Atorvastatin 80 Mg Tablet PO 11/02/23 20:59 80 mg QPM LEVON Administration Bisacodyl 10 mg 11/02/22 15:00 Bisacodyl 10 Mg Supp.Rect TN 11/02/23 14:59 DAILY PRN Constipation Clopidogrel Bisulfate 75 mg 11/03/22 09:00 11/03/22 09:01 Clopidogrel Bisulfate 75 Mg Tablet PO 11/03/23 08:59 75 mg DAILY LEVON Administration Docusate Sodium 100 mg 11/02/22 15:00 Docusate 100 Mg Capsule PO 11/02/23 14:59 BID PRN Constipation Docusate Sodium 283 mg 11/02/22 15:00 Docusate Enema 283 Mg/5 Ml Enema TN 11/02/23 14:59 DAILY PRN Constipation Enoxaparin Sodium 40 mg 11/04/22 10:00 Enoxaparin 40 Mg/0.4 Ml Syringe SUBCUT 11/04/23 09:59 DAILY@1000 [facility] Hydralazine HCl 25 mg 11/03/22 14:00 Hydralazine 25 Mg Tablet PO 11/03/23 13:59 TID [facility] Hydrochlorothiazide 25 mg 11/03/22 09:00 11/03/22 09:01 [...] % (Auto) 64.6, Lymph % (Auto) 21.6, [place] % (Auto) 12.2, Eos % (Auto) 0.8, Baso % (Auto) 0.8, Nucleat RBC Rel Count 0.0, Neut # (Auto) 8.9 H, Lymph # (Auto) 3.0, [place] # (Auto) 1.7 H, Eos # (Auto) [...] hypertensive urgency with systolic blood pressures in [id number] (5) Nonadherence to medication: (6) Intracranial atherosclerosis: [...] signed by Rohan Levy DO> 11/03/22 1557 [facility] Work Phone: 1(853) 918-843909-08-2023 History and physical note Author Jose Martin Sen [facility] November 03, 2022 12:59pm Note Date/Time November 03, 2022 9:33am [facility] [address] [place] [address] Physiatry (Rehab) H&P Signed Patient: Viraj Doherty MR#: [id number] : 1955 Acct:[id number] Age/Sex: 67 / M Adm Date: 3 Loc: Room: [address] [place] [address] Type: ADM IN Attending Dr: Jose Martin [...] Case was discussed between ER physician and [place] interventional radiology who requested the patient stay [...] day by day. 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 [...] 12:59> Etiologic Diagnosis/Impairment Group: Stroke [facility] <John Hodge DO, RES - Last Filed: [...] Tablet) 10 mg PO DAILY [facility] Stop: 11/03/23 08:59 Last Admin: 11/03/22 09:01 Dose: 10 mg Aspirin (Aspirin 81 Mg Tablet.Dr) 81 mg PO DAILY [facility] Stop: 11/03/23 08:59 Last Admin: 11/03/22 09:01 Dose: 81 mg Atorvastatin Calcium (Atorvastatin 80 Mg Tablet) 80 mg PO QPM [facility] Stop: 11/02/23 20:59 Last Admin: 11/02/22 21:25 Dose: 80 mg Bisacodyl (Bisacodyl 10 Mg Supp.Rect) 10 mg TN DAILY PRN PRN Reason: Constipation Stop: 11/02/23 14:59 Clopidogrel Bisulfate (Clopidogrel Bisulfate 75 Mg Tablet) 75 mg PO DAILY [facility] Stop: 11/03/23 08:59 Last Admin: 11/03/22 09:01 Dose: 75 mg Docusate Sodium (Docusate 100 Mg Capsule) 100 mg PO BID PRN PRN Reason: Constipation Stop: 11/02/23 14:59 Docusate Sodium (Docusate Enema 283 Mg/5 Ml Enema) 283 mg TN DAILY PRN PRN Reason: Constipation Stop: 11/02/23 14:59 Hydrochlorothiazide (Hydrochlorothiazide 25 Mg Tablet) 25 mg PO DAILY [facility] Stop: 11/03/23 08:59 Last Admin: 11/03/22 09:01 Dose: 25 mg Lactulose (Lactulose 20 Gm/30 Ml Udc) 30 gm PO DAILY PRN PRN Reason: Constipation Stop: 11/02/23 14:59 Potassium Chloride (Potassium Chloride Er 10 Meq Tablet.Er) 10 meq PO DAILY [facility] Stop: 11/03/23 08:59 Last Admin: [...] 10 Ml Syringe) 10 ml IV-PUSH Q8H [facility] Stop: 11/02/23 21:59 Last Admin: 11/03/22 05:26 [...] % (Auto) 64.6 Lymph % (Auto) 21.6 [place] % (Auto) 12.2 Eos % (Auto) 0.8 Baso % (Auto) 0.8 Nucleat RBC Rel Count 0.0 Neut # (Auto) 8.9 H Lymph # (Auto) 3.0 [place] # (Auto) 1.7 H Eos # (Auto) [...] Anticipated interventions: Physician management, PT, OT, RN TESTING, , Dietitian, RehabNursing, Case management 2. Therapy Functional Outcome/Goal: Anticipate independent transfers Anticipated interventions: Physician management, PT, OT, RN TESTING, Case management, Dietitian, Rehab Nursing 3. Therapy Functional Outcome/Goal: Anticipate independent ambulation Anticipated interventions: Physician management, PT, OT, RN TESTING Case management, Dietitian, Rehab Nursing 4.Therapy Functional Outcome/Goal: Anticipate independent self-care Anticipated interventions: Physician management, PT, OT, RN TESTING, Case management, Dietitian, Rehab Nursing 5.Therapy Functional Outcome/Goal: Anticipate independent functional communication and swallowing Anticipated interventions: Physician management, PT, OT, RN TESTING, Case management, Dietitian, Rehab Nursing Required Therapy [...] therapy on as needed basis. Comments: RN TESTING to evaluate and treat patient?s cognition, language and communication skills, assess swallow function. Other: Dietitian, Rehab nursing, Wound, P&O, Neuropsychology as needed RATIONALE FOR IRF ADMISSION: Patient has both medical and functional complexities that require 24 hour daily monitoring and intervention from Director [employer] as well as other consulting physicians including internal medicine as well as 24 hour daily manager enterprise nursing - for medical safe / optimal management. Patient requires interdisciplinary therapy team rehabilitation care including OT, PT, RN TESTING, SW, Psychology, Rehab Nursing, requires and can [...] hypertensive urgency with systolic blood pressures in [id number] This was slowly lowered during his inpatient [...] hypertensive urgency with systolic blood pressures in [id number] This was slowly lowered during his inpatient [...] prophylaxis: Add lovenox Functional status: Imapired. Pt/OT/RN TESTING as ordered Discharge planning: Home 1-2 weeks Plan: I completed a substantive portion of this encounter, the medical decision makingportion of this note in its entirety, including Allied health note review, nursing note review, pharmacy consultant note review, discussion with nursing and case management, and more than 50% of my time was spent on counseling and coordination of care, time spent 70 minutes Patient was personally seen by me, Dr. Sen, on the day of encounter, reviewed the history and the relevant portions of the chart, including current orders, allied health and pharmacy consultant notes, labs/imaging and performed garner elements of exam and I formulated the plan of care and facilitated the medical decision making. Patient was personally seen by me on the day of encounter, reviewed the history and performed garner elements of exam and formulated the plan of care and confirmedthe resident physician note, as above Documented By: John Hodge DO,RES 11/03/22 092 9 Signed By: <Electronically signed by DO FLOYD Hodge> 11/03/22 1026 <Electronically signed by Jose Martin Sen MD> 11/03/22 1259 [facility] Work Phone: 1(760) 763-394109-06-2023 Progress note Author Davey Harding [facility] November 01, 2022 2:15pm Note Date/Time November 01, 2022 11:38am [facility] [address] [place] [address] Hospitalist Progress Note Signed Patient: Viraj Doherty MR#: [id number] : 1955 Acct:[id number] Age/Sex: 67 / M Adm Date: 3 Loc: Room: [address] [place] [address] Type: ADM IN Attending Dr: Davey Harding [...] of care and confirmed it with the resident/student/REPAIR CAMERAMAN. Patient resting in bed, is frustrated that he cannot eat well due to his right upper extremity weakness. He is approved for rehab once his blood pressure is controlled Exam Physical Exam Vital Signs: Temp Pulse Resp BP Pulse Ox O2 Del Method 98.3 F 70 18 179/79 H 99 Room Air 11/01/22 11:11/01/22 11:11/01/22 11:09 11/01/22 11:09 11/01/22 11:09 11/01/22 11:09 Narrative: CONSTITUTIONAL: Alert, oriented HEAD: Normocephalic, [...] occlusions which were discussed with neurology in [place]. Will continue asa/plavix/statin - MRI showed evidence [...] signed by DO FLOYD Bear> 11/01/22 1138 [facility] Work Phone: 1(467) 306-894209-06-2023 Progress note Author Jose Martin Sen [facility] November 01, 2022 10:34am Note Date/Time November 01, 2022 10:32am [facility] [address] [place] [address] Physiatry(Rehab) Progress Note Signed Patient: Viraj Doherty MR#: [id number] : 1955 Acct:[id number] Age/Sex: 67 / M Adm Date: 3 Loc: Room: [address] [place] [address] Type: ADM IN Attending Dr: Davey Harding [...] % (Auto) 68.3 Lymph % (Auto) 23.0 [place] % (Auto) 7.7 Eos % (Auto) 0.3 Baso % (Auto) 0.7 Nucleat RBC Rel Count 0.6 H Neut # (Auto) 9.2 H Lymph # (Auto) 3.1 [place] # (Auto) 1.0 H Eos # (Auto) [...] MPV Neut % (Auto) Lymph % (Auto) [place] % (Auto) Eos % (Auto) Baso % (Auto) Nucleat RBC Rel Count Neut # (Auto) Lymph # (Auto) [place] # (Auto) Eos # (Auto) Baso # [...] complexity that cannot be best managed at [facility] level of care and requires at least 3 times weekly encounters with tenon machine operator for medical management and for plan of care review / changes. Plan: I completed a substantive portion of this encounter, the medical decision makingportion of this note in its entirety, including Allied health note review, nursing note review, pharmacy consultant note review, discussion with nursing and case management, and more than 50% of my time was spent on counseling and coordination of care, time spent 20 minutes Patient was personally seen by me, Dr. Sen, on the day of encounter, reviewed the history and the relevant portions of the chart, including current orders, allied health and pharmacy consultant notes, labs/imaging and performed garner elements of exam and I formulated the plan of care and facilitated the medical decision making. Documented By: Jose Martin Sen MD 11/01/221030 Signed By: <Electronically signed by Jose Martin Sen MD> 11/01/221033 [facility] Work Phone: [phone]) 256-479309-05-2023 Consult note Author Jose Martin Sen [facility] October 31, 2022 2:43pm Note Date/Time October 31, 2022 11:39am [facility] [address] [place] [address] Physiatry (Rehab) Consult Note Signed Patient: Viraj Doherty MR#: [id number] : 1955 Acct:[id number] Age/Sex: 67 / M Adm Date: 3 Loc: Room: [address] [place] [address] Type: ADM IN Attending Dr: Dvaey Harding MD Copies to: MD Marilyn Woodward [...] noted below or in HPI [facility] Medical History CVA (cerebral vascular accident) HTN [...] % (Auto) 58.1 Lymph % (Auto) 31.1 [place] % (Auto) 9.0 Eos % (Auto) 1.0 Baso % (Auto) 0.8 Nucleat RBC Rel Count 0.2 Neut # (Auto) 5.5 Lymph # (Auto) 3.0 [place] # (Auto) 0.9 H Eos # (Auto) [...] Color Urine Appearance Urine pH Ur Specific [place] Urine Protein Urine Glucose (UA) Urine Ketones [...] % (Auto) 64.0 Lymph % (Auto) 25.2 [place] % (Auto) 9.1 Eos % (Auto) 0.7 Baso % (Auto) 1.0 Nucleat RBC Rel Count 0.6 H Neut # (Auto) 6.5 Lymph # (Auto) 2.6 [place]nam # (Auto) 0.9 H Eos # (Auto) 0.1 Baso # (Auto) 0.1 Monocyte Dist Width PT INR APTT PHA Creatinine Clear Sodium Potassium Chloride Carbon Dioxide Anion Gap BUN Creatinine Est GFR (CKD-EPI) Glucose Calcium Total Creatine Kinase 133 Troponin I High Sens 12.1 Urine Color Yellow Urine Appearance Clear Urine pH 6.0 Ur Specific [place] > 1.050 H Urine Protein Trace H [...] MPV Neut % (Auto) Lymph % (Auto) [place] % (Auto) Eos % (Auto) Baso % (Auto) Nucleat RBC Rel Count Neut # (Auto) Lymph # (Auto) [place] # (Auto) Eos # (Auto) Baso # (Auto) Monocyte Dist Width PT INR APTT PHA Creatinine Clear 84.38 Sodium 138 Potassium 3.2 L Chloride 105 Carbon Dioxide 23.8 Anion Gap 12.4 BUN 12 Creatinine 0.88 Est GFR (CKD-EPI) > 60.0 Glucose 110 H Calcium 9.3 Total Creatine Kinase Troponin I High Sens Urine Color Urine Appearance Urine pH Ur Specific [place] Urine Protein Urine Glucose (UA) Urine Ketones [...] complexity that cannot be best managed at [facility] level of care and requires at least 3 times weekly encounters with tenon machine operator for medical management and for plan of care review / changes. Plan: I completed a substantive portion of this encounter, the medical decision makingportion of this note in its entirety, including Allied health note review, nursing note review, pharmacy consultant note review, discussion with nursing and case management, and more than 50% of my time was spent on counseling and coordination of care, time spent 65 minutes Patient was personally seen by me, Dr. Sen, on the day of encounter, reviewed the history and the relevant portions of the chart, including current orders, allied health and pharmacy consultant notes, labs/imaging and performed garner elements of exam and I formulated the plan of care and facilitated the medical decision making. Documented By: Jose Martin Sen MD 10/31/22 1139 Signed By: <Electronically signed by Jose Martin Sen MD> 10/31/22 1443 [facility] Work Phone: 1([phone]) 765-697909-05-2023 Consult note Author Jose David Aponte [facility] October 31, 2022 12:34pm Note Date/Time October 31, 2022 11:23am [facility] [address] [place], [place] [address] Neurology Consult Note Signed Patient: Viraj Doherty MR#: [id number] : 1955 Acct:[id number] Age/Sex: 67 / M Adm Date: 3 Loc: 4P Room: [address] [place] [address] Type: ADM IN Attending Dr: Davey Harding MD Copies to: DO Davey Abbott MD Douglas M Hoy, MD~ HPI Consult Date: 10/31/22 Battery Parts Assembler: Jose David Aponte DO [facility] Medical History (Updated 10/30/22 @ 21:57 by [...] atrophy and chronic small vessel ischemic changes. [facility] preliminary report completed 10/30/2022 at 7:34 PM [...] Delio Tran M.D.10/31/2022 7:42 AM Dictation Location: [facility]- Therapy Recommendations Therapy Recommendations: PT Recommendations PT [...] Bites/Sips,Pacing Strategies /Slow-Rate ST Recommended Services at 18/09 Supervision Discharge Assessment/Plan (1) Acute CVA (cerebrovascular accident): Code(s): I63.9 - Cerebral infarction, unspecified Status: Acute Plan CONSULT REASON: CVA HPI: 67-year-old man with history of hypertension not taking medication and with history of a lacunar infarction presents for evaluation of slurred speech and hewas dragging his right leg and his right limbs seem weak and incoordinated. Hiswife said he was admitted to [facility] about 2 years ago with severe [...] is perforating branches of the distalmost left CUSTOMER STRATEGY MANAGER. Etiology is small vessel disease caused bysevere [...] Documented By: Jose David Aponte DO 10/31/22 1116 Signed By: <Electronically signed by Jose David Aponte DO> 10/31/22 3949 [facility] Work Phone: 1(802) 523-368609-05-2023 Progress note Author Davey Harding [facility] October 31, 2022 12:34pm Note Date/Time October 31, 2022 11:45am [facility] [address] [place] [address] Hospitalist Progress Note Signed Patient: Viraj Doherty MR#: [id number] : 1955 Acct:[id number] Age/Sex: 67 / M Adm Date: 3 Loc: Room: [address] [place] [address] Type: ADM IN Attending Dr: Davey Harding [...] of care and confirmed it with the resident/student/REPAIR CAMERAMAN. Patient resting in chair. Does not quite [...] Narinderq PRN Reason Stop Dose Admin Acetaminophen 1,000 [...] occlusions which were discussed with neurology in [place]. Will continue asa/plavix/statin - MRI ordered, echo [...] Will add saline drops Documented By: Davey Haridng MD 10/31/22 1141 Signed By: <Electronically signed by Davey Harding MD> 10/31/22 1234 <Electronically signed by DO FLOYD Bear> 10/31/22 1145 [facility] Work Phone: 1(896) 180-563109-05-2023 History and physical note Author John Garcia [facility] October 30, 2022 10:00pm Note Date/Time October 30, 2022 10:00pm [facility] [address] [place] [address] Hospitalist H&P Signed Patient: Viraj Doherty MR#: [id number] : 1955 Acct:[id number] Age/Sex: 67 / M Adm Date: 3 Loc: Room: [address] [place] [address] Type: ADM IN Attending Dr: John Garcia DO Copies to: MD John Millan DO~ HPI DATE OF EXAMINATION: 10/30/22 CHIEF COMPLAINT: slurred speech HISTORY OF PRESENT ILLNESS: 67 y/o M with PMHx of HTN, hx of CVA who presents with complaint of slurred speech which started last night. Pt's states that he was admitted in [place] about 2 years ago with uncontrolled HTN [...] noted below or in HPI [facility] Medical History (Updated 10/30/22 @ 21:57 by [...] % (Auto) 31.1 % (.) 10/30/22 19:12 [place]nam % (Auto) 9.0 % (.) 10/30/22 19:12 Eos % (Auto) 1.0 % (.) 10/30/22 19:12 Baso % (Auto) 0.8 % (.) 10/30/22 19:12 Nucleat RBC Rel Count 0.2 /100 WBC (0-0.5) 10/30/22 19:12 Neut # (Auto) 5.5 x10E3/uL (1.8-7.7) 10/30/22 19:12 Lymph # (Auto) 3.0 x10E3/uL (1.00-4.8) 10/30/22 19:12 [place] # (Auto) 0.9 x10E3/uL (0.0-0.8) H 10/30/22 [...] occlusions which were discussed with neurology in [place]. Will continue asa/plavix/statin - MRI ordered - [...] signed by John Garcia DO> 10/30/22 2200 [facility] Work Phone: 1([phone]) 134-361907-12-2023 Evaluation + Plan note Diagnostic Tests Pending * Quantiferon-TB Plus (Client Incubated) 09/06/22 [facility]07-13-2022 Evaluation + Plan note Diagnostic Tests Pending * Quantiferon-TB Plus (Client Incubated) [facility]07[facility] Davey Harding [facility] November 02, 2022 1:45pm Note Date/Time November 02, 2022 1:45pm [facility] [address] [place] [address] Discharge Summary Signed Patient: Viraj Doherty MR#: [id number] : 1955 Acct:[id number] Age/Sex: 67 / M Adm Date: 3 Loc: Room: [address] [place] [address]: Davey Harding MD Copies to: [...] occlusions in the M1 and M2 segments. [place] stroke center recommended conservative management with dual [...] % (Auto) 71.4, Lymph % (Auto) 18.5, [place] % (Auto) 9.2, Eos % (Auto) 0.1, Baso % (Auto) 0.8, Nucleat RBC Rel Count 0.2, Neut # (Auto) 10.2 H, Lymph # (Auto) 2.6, [place] # (Auto) 1.3 H, Eos # (Auto) 0.0, Baso # (Auto) 0.1 Exam Physical Exam Vital Signs: Temp Pulse Resp BP Pulse Ox O2 Del Method 98.4 F 83 16 142/72 H 97 Room Air 11/02/22 12:29 11/02/22 12:11/02/22 12:11/02/22 12:11/02/22 12:11/02/22 12:29 Discharge Plan Discharge Plan Patient Disposition: Rehab [facility] Activity: No Activity Restriction Diet: Diabetic and Low-Sodium Additional Instructions: [facility] will call you with a follow up with a neurovascular doctor. You are schedule with [facility] on November 30 at 3:30pm at [address] [facility] room [address] Mike. Rehab to [...] 81 mg PO DAILY Qty: 0 0RF ukfugbxmrb-aciapdtcx-ydisedwnv 10-320-25 mg tablet 1 tab PO DAILY Qty: 30 0RF potassium chloride 10 mEq capsule, extended release 10 meq PO DAILY Qty: 30 0RF Follow Up: [facility] [Outside] (Please call to schedule a follow up appointment with Neurology upon discharge from Rehab.) Marilyn Patrick MD [Primary Care Provider] - (Please call to schedule a follow up appointment with PCP upon discharge from Rehab.) Documented By: Davey Harding MD 11/02/22 1341 Signed By: <Electronically signed by Davey Harding MD> 11/02/22 1346 [facility] Work Phone: Discharge summary Author Jose Martin Sen [facility] November 15, 2022 6:11pm Note Date/Time November 15, 2022 12:04pm [facility] [address] [place] [address] Discharge Summary Signed Patient: Viraj Doherty MR#: [id number] : 1955 Acct:[id number] Age/Sex: 67 / M Adm Date: 3 Loc: Room: [address] [place] [address]: Jose Martin Sen MD Copies to: MD Janice Millan, DRUM TESTER Jose Martin Sen MD~ Providers Date of Discharge: 11/15/22 [...] Case was discussed between ER physician and [place] interventional radiology who requested the patient stay [...] Occupational, and Speech Therapy at [facility] (Address: [address] [place] [address]/ ). The order for this has alreadybeen [...] mg subcut Q14D Qty: 0 0RF Continued ccfuioymhp-xvnwxrjyv-zvrykvcjk 10-320-25 mg tablet 1 tab PO DAILY [...] DAILY Qty: 30 0RF Other Ambulatory Orders: [facility] Home Medical Equipment (Routine) Timeframe: 20221110 Location: [...] by Jose Martin Sen MD> 11/15/22 1811 [facility] Work Phone: Evaluation note* Diagnosis Onset Date Resolution Status Acute CVA (cerebrovascular accident) acute Hypertensive urgency acute [facility] Work Phone: Evaluation note* Diagnosis Onset Date Resolution Status Acute CVA (cerebrovascular accident) acute Cerebrovascular accident (CVA) of left thalamus acute Hyperlipidemia acute Hypertensive urgency acute Intracranial atherosclerosis acute Nonadherence to medication a cute Oropharyngeal dysphagia acut e Right hemiplegia acute [facility] Work Phone: Evaluation note* Diagnosis Onset [...] Right hemiplegia acute Tobacco abuse disorder acute [facility] Work Phone: Evaluation note* Diagnosis Onset [...] acut e Right hemiplegia acute Seizure acute [facility] Work Phone: Evaluation note* Diagnosis Onset [...] Right-sided sensory deficit present acute Seizure acute [facility] Work Phone: Evaluation note* Diagnosis 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 (CMS/HCC)- Primary Encounter for medication monitoring Encounter for therapeutic drug monitoring Intracranial atherosclerosis Cerebral atherosclerosis Elevated hemoglobin A1c Other abnormal blood chemistry Seizure (CMS/HCC) Other convulsions documented in this encounter [facility] and [facility] Author John Garcia [facility] October 30, 2022 10:00pm Note Date/Time October 30, 2022 10:00pm [facility] [address] [place] [address] Hospitalist H&P Signed Patient: Viraj Doherty MR#: [id number] : 1955 Acct:[id number] Age/Sex: 67 / M Adm Date: 3 Loc: Room: [address] [place] [address] Type: ADM IN Attending Dr: John Garcia DO Copies to: MD John Millan DO~ HPI DATE OF EXAMINATION: 10/30/22 CHIEF COMPLAINT: slurred speech HISTORY OF PRESENT ILLNESS: 67 y/o M with PMHx of HTN, hx of CVA who presents with complaint of slurred speech which started last night. Pt's states that he was admitted in [place] about 2 years ago with uncontrolled HTN [...] noted below or in HPI [facility] Medical History (Updated 10/30/22 @ 21:57 by [...] % (Auto) 31.1 % (.) 10/30/22 19:12 [place] % (Auto) 9.0 % (.) 10/30/22 19:12 Eos % (Auto) 1.0 % (.) 10/30/22 19:12 Baso % (Auto) 0.8 % (.) 10/30/22 19:12 Nucleat RBC Rel Count 0.2 /100 WBC (0-0.5) 10/30/22 19:12 Neut # (Auto) 5.5 x10E3/uL (1.8-7.7) 10/30/22 19:12 Lymph # (Auto) 3.0 x10E3/uL (1.00-4.8) 10/30/22 19:12 [place] # (Auto) 0.9 x10E3/uL (0.0-0.8) H 10/30/22 [...] occlusions which were discussed with neurology in [place]. Will continue asa/plavix/statin - MRI ordered - [...] signed by John Garcia DO> 10/30/22 2200 [facility] Work Phone: Hospital course Narrative No data available for this section [facility] No data available for this section [facility] Additional Instructions [facility] will call you with a follow up with a neurovascular doctor. You are schedule with [facility] on November 30 at 3:30pm at [address] [facility] [address] Mike. Rehab to manage: - PT/OT/ST to eval and treat - Please follow previous Speech therapy recommendations - Monitor VS routine - Dx. HTN - Neuro assessments - Dx. CVA - Routine skin assessments/care -- Every 3 days - Mepilex border foam to coccyx for added protection.[facility] Work Phone: Hospital Discharge instructions [...] Outpatient Physical, Occupational, and Speech Therapy at [facility] [employer] [facility] (Address: [address] [place] [address]/ ). The order for this has already [...] office to inform them prior to your appointment.[facility] Work Phone: Hospital Discharge instructions Additional Instructions REHAB TO MANAGE: PT/OT to eval and treat Monitor VS per protocol Monitor Neuro. assessment--CVA Maintain seizure precautions Care to be [facility] Work Phone: Hospital Discharge instructions Additional Instructions -Diet: low fat, low cholesterol. -Ambulate as tolerated. No driving unless cleared by physician, may ride in car. You will have Outpatient Therapy at [facility] ([phone] ext. [phone]). The order for this has been sent [...] office to inform them prior to your appointment.[facility] Work Phone: Progress note No data available for this section [facility] Summary Purpose Family History No Family [...] section and content) DATE CREATED AUTHOR 06/11/2018 [facility] DATE CREATED AUTHOR AUTHOR'S ORGANIZ ATION 10/23/2018 [facility] DATE CREATED AUTHOR AUTHOR'S ORGANIZ ATION 12/27/2022 [facility] DATE CREATED AUTHOR AUTHOR'S ORGANIZ ATION 09/15/2023 [facility] DATE CREATED AUTHOR AUTHOR'S ORGANIZ ATION 09/17/2023 [facility] DATE CREATED AUTHOR AUTHOR'S ORGANIZ ATION 12/19/2023 [facility] dical Specialists EPIC Care Team (unrecognized sect ion and content) Team Status: Active Member Role Status Dates Marilyn Patrick MD Primary Care Provider Active Team Status: Inactive Member Role Status Dates Nolberto Hernandez MD Emergency Provider Active Marilyn Patrick MD Primary Care Provider Active John Garcia , DO Admit Provider Active Davey Harding MD Attending Provider Active Jose David Aponte , DO Other Provider Active Jose Martin Sen MD Other Provider Active Team Status: Active Member Role Status Dates Nolberto Hernandez MD Emergency Provider Active Marilyn Patrick MD Primary Care Provider Active John Garcia , DO Admit Provider, Attending Provid er Active [...] Miller APRN Other Provider Active Stephanie Thomas , DO [...] MD Other Provider Active Rhonda Addison , REPAIR CAMERAMAN-C Other Provider Active Franklyn Mariano MD Other Provider Active Foster Patterson MD Other Provider Active Axel Wolfe MD Other Provider Active Obey Dawn MD Other Provider Active Maty Giles , DO Other Provider Active Hilario Bojorquez , DO Other Provider Active Garrett Kim , DO Other Provider Active Aziza Walker , DRUM TESTER Other Provider Active Alex Weems , DO Other Provider Active Quynh Galvan MD Other Provider Active Linh Hernandez , DRUM TESTER Other Provider Active Sara Osorio , DRUM TESTER Other Provider Active Tamara Loco MD Other Provider Active Guzman Garcia MD Other Provider Active Estephania Lepe , DRUM TESTER Other Provider Active Destiny Quinteros , DARON [...] DO Other Provider Active Johana Mayers , DRUM TESTER Other Provider Active Misti Joel , REPAIR CAMERAMAN-C Other Provider Active Ivon Yoo , DRUM TESTER-INFORMATION SYSTEMS ANALYST-C Other Provider Active Davey Harding MD Attending [...] MD Other Provider Active Yennifer Miller , DRUM TESTER Other Provider Active Stephanie Thomas , DO Other Provider Active Pasquale Gillespie MD Other Provider Active Rohan Levy , DO Other Provider Active Davey Harding MD Other Provider Active Mindi Juan MD Other Provider Active Anuradha Parmar , DRUM TESTER Other Provider Active Ryan Palacio MD Other Provider Active Herbert May MD Other Provider Active Kaushal Mata MD Other Provider Active Fidelia Hernández MD Other Provider Active Kevin Adrian , DO Other Provider Active Ton Wilkinson MD Other Provider Active Deangelo Jeong MD Other Provider Active Rhonda Addison , REPAIR CAMERAMAN-C Other Provider Active Franklyn Mariano MD Other Provider Active Foster Patterson MD Other Provider Active Axel Wolfe MD Other Provider Active Obey Dawn MD Other Provider Active Maty Giles , DO Other Provider Active Hilario Bojorquez , DO Other Provider Active Garrett Kim , DO Other Provider Active Aziza Walker , DRUM TESTER Other Provider Active Alex Weems , DO Other Provider Active Quynh Galvan MD Other Provider Active Linh Hernandez , DRUM TESTER Other Provider Active Sara Osorio , DRUM TESTER Other Provider Active Tamara Loco MD Other Provider Active Guzman Garcia MD Other Provider Active Estephania Lepe , DRUM TESTER Other Provider Active Destiny Quinteros RN Other Provider Active Team Status: Inactive Member Role Status Dates Marilyn Patrick MD Primary Care Provider Active Jose Martin Sen MD Attending Provider Active Word Processing Specialist Relationship Specialty Start Date End Date Marilyn Patrick MD [address] [place] [phone] PCP - General Family Medicine 12/13/23 Word Processing Specialist Relationship Specialty Start Date End Date Marilyn Patrick MD [address] [place] [phone] PCP - General Family Medicine 12/13/23 Goals (unrecognized section and content) Goals may [...] BE BASED ON THE PRIMARY CLINICAL RECORDS. [facility] provides no warranty or guarantee of the accuracy or completeness of information in this document.
[2024-02-21 13:12] LABS: Hematocrit 41.2 % (42.0-54.0); Hemoglobin 12.9 g/dL (14.0-18.0); Mean Corpuscular HGB Conc 31.3 g/dL (29.9-35.2); Mean Corpuscular Hemoglobin 22.5 pg (25.9-34.0); Mean Corpuscular Volume 71.9 fL (80.0-94.0); Mean Platelet Volume 9.6 fL (9.5-13.5); Platelet Count 171 10^3/uL (150-450); Red Blood Count 5.73 10^6/uL (4.70-6.10); Red Cell Distribution Width 21.1 % (11.0-15.0); White Blood Count 5.4 10^3/uL (4.0-11.0)
[2024-02-21 13:14] LABS: INR 1.14; Partial Thromboplastin Time 26.1 sec (22.3-36.2); Prothrombin Time 11.9 sec (9.0-11.6)
[2024-02-21 13:36] LABS: Alanine Aminotransferase 23 U/L (16-63); Albumin Globulin Ratio 1.1; Albumin Level 4.1 g/dL (3.4-5.0); Alkaline Phosphatase 92 U/L (46-116); Anion Gap 12.6; Aspartate Amino Transferase 17 U/L (15-37); BUN Creatinine Ratio 6.8; Bilirubin Total 0.6 mg/dL (0.2-1.0); Calcium 8.8 mg/dL (8.5-10.1); Carbon Dioxide 28.7 mmol/L (21.0-32.0); Chloride 102 mmol/L (98-107); Estimated GFR (African America >60 (>=60 mL/min/1.73m^2); Estimated GFR (Non-African Ame 54 (>=60 mL/min/1.73m^2); Globulin 3.9 g/dL; Glucose 147 mg/dL (74-106); Potassium 3.3 mmol/L (3.5-5.1); Sodium 140 mmol/L (136-145)
[2024-02-21 13:48] LABS: Lymphocytes Absolute Manual 0.43 10^3/uL (1.20-3.80); Monocytes Absolute Manual 0.21 10^3/uL (0.30-0.80); Segmented Neut Absolute Manual 4.64 10^3/uL (1.4-6.5)
== END 2024-02-21 12:24 | disposition home or self-care (01) ==
LOC: LAB 12:29
PROVIDERS: PCP Family Medicine; Visit Provider Family Medicine
DX: D64.9 Anemia, unspecified (principal)
CPT/HCPCS: 36415; 80053; 82728; 83540; 85007; 85027; 85610; 85730